=== PATIENT | male | born 1935 | race Caucasian/White ===

== ENCOUNTER → 2018-01-13 12:44 | Outpatient (CLI) | payer MEDICARE, SELFPAY ==
--- NOTE | 2018-01-13 12:48 | CDUL_ITS ---
Reason For Study: Pulsatile tinnitus Lt. Velocities/BP Prox CCA 63.3/13.5 cm/sec. Mid CCA 79.7/14.7 cm/sec. Dist CCA 86.8/16.4 cm/sec. Prox ICA 52.9/14.5 cm/sec. Mid ICA 68.2/17.8 cm/sec. Dist ICA 54.3/12.8 cm/sec. Lt. ICA/CCA = .86. Prox ECA 63.0/0.0 cm/sec. Lt. Vert. 32.4/8.1 cm/sec. Left Extracranial There is homogeneous, smooth atherosclerotic plaque noted in the left common carotid artery. There is heterogeneous, irregular atherosclerotic plaque noted in the left internal carotid artery. There is heterogeneous, irregular atherosclerotic plaque noted in the left external carotid artery. Antegrade flow is noted in the left vertebral artery. Procedure Carotid Duplex 58777. LT side only per dr order. Exam performed in department. 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 Flow within the left verterbral artery is antegrade. Ordering Physician: Shailesh Mancini Referring Physician: Shailesh Mancini Performed By: Dipti Lynn RVT
== END ==
PROVIDERS: Family Provider Family Medicine; PCP Family Medicine; Visit Provider Family Medicine
DX: R42 Dizziness and giddiness (principal); H93.A2 Pulsatile tinnitus, left ear
CPT/HCPCS: 93882

== ENCOUNTER → 2018-04-14 10:05 | Outpatient (CLI) | payer MEDICARE, SELFPAY ==
[2018-04-14 11:00] LABS: Hematocrit 35.3 % (40-54); Hemoglobin 11.9 g/dl (13.0-16.5); Mean Corp Hgb Conc 33.7 g/gl (32-36); Mean Corpuscular Hgb 31.6 pg (27.0-32.0); Mean Corpuscular Volume 93.6 fL (80-94); Mean Platelet Vol. 11.6 fl (6.2-12.0); Platelet Count 162 K/mm3 (150-450); RBC Distribution Width CV 14.2 % (11.6-14.6); RBC Distribution Width SD 46.2 fl (35.1-43.9); Red Blood Count 3.77 M/mm3 (4.6-6.2); White Blood Count 3.8 K/mm3 (4.4-11.0)
[2018-04-14 11:04] LABS: Scan Indicated on CBC? Y/N NO
[2018-04-14 11:30] LABS: Anion Gap 6 (5-15); BUN 13 mg/dL (7-18); BUN/Creat Ratio 11.4 RATIO (10-20); Calcium,Total 8.2 mg/dL (8.5-10.1); Chloride 105 mmol/L (98-107); Creatinine, Serum 1.14 mg/dL (0.70-1.30); EST Glomerular Filtration Rate 65 mL/min (>60); Est Glom Filt Rate - Afr Amer 79 mL/min (>60); Glucose 105 mg/dL (74-106); Sodium Level 141 mmol/L (136-145); Thyroid Stim Hormone (TSH) 1.09 uIU/mL (0.358-3.74)
== END ==
PROVIDERS: Family Provider Family Medicine; PCP Family Medicine; Visit Provider Physician Assistant Medical
DX: R53.83 Other fatigue (principal); D50.9 Iron deficiency anemia, unspecified; R06.00 Dyspnea, unspecified
CPT/HCPCS: 36415; 80048; 84443; 85027

== ENCOUNTER → 2018-10-28 06:57 | Outpatient (CLI) | payer MEDICARE, SELFPAY ==
[2018-10-03 14:25] VITALS: BMI 23.7
--- NOTE | 2018-10-28 06:58 | ECHOD_ITS ---
Reason For Study: CAD Procedure This was a 2D Doppler, Color Flow transthoracic echocardiogram. The exam was of adequate technical quality. Exam performed in department. Left Ventricle Normal LV size. Moderate segmental systolic dysfunction (see wall motion). The estimated ejection fraction is 30 %. The global longitudinal strain = -14% (abnormal). Diastolic function is indeterminate. Basal inferoseptal: Hypokinetic. Basal anteroseptal: Hypokinetic. Mid-Anterior : Akinetic. Mid-Lateral : Hypokinetic. Mid-Inferior: Hypokinetic. Mid-inferoseptal : Akinetic. Mid- anteroseptal : Akinetic. Anterior [place] : Akinetic. Inferior [place] : Akinetic. Lateral [place] : Dyskinetic. Septal [place] : Akinetic. Right Ventricle Normal RV size. ICD or pacer leads identified within the right ventricle. Normal systolic function. Atria The left atrium is mildly enlarged. Normal right atrium. ICD or pacer leads identified within the right atrium. No doppler evidence for ASD. Mitral Valve There is no mitral annular calcification. Mild focal mitral valve calcification of the anterior leaflet. Trivial mitral valve insufficiency. Tricuspid Valve Normal tricuspid valve. Mild tricuspid valve insufficiency. Right ventricular systolic pressure estimated to be 32 mmHg. Aortic Valve Trisinus/trileaflet aortic valve. Mild diffuse aortic valve calcification. Mild (1+) aortic valve insufficiency. Pulmonic Valve The pulmonic valve is not well visualized. Trivial pulmonic valve insufficiency. Great Vessels Normal sized aortic root. Pericardium/Pleural No pericardial effusion. MMode/2D Measurements & Calculations LVIDd: 4.9 cm IVSd: 0.79 cm LVOT diam: 2.0 cm LVIDs: 3.8 cm LVPWd: 0.94 cm LVOT area: 3.2 cm2 RVDd: 3.2 cm FS: 22.2 % Ao root diam: 3.6 cm LAV(MOD-bp): 51.3 ml EDV(MOD-sp4): 104.3 ml LAV(MOD-bp) Indexed: 31.8 ml/m2 ESV(MOD-sp4): 79.4 ml LAV(MOD-sp2): 54.1 ml EF(MOD-sp4): 23.9 % LAV(MOD-sp4): 43.4 ml EDV(MOD-sp2): 99.9 ml SV(MOD-sp4): 25.0 ml SV(MOD-sp2): 38.5 ml EF(MOD-sp2): 38.5 % LA A4 area: 15.5 cm2 LA dimension(2D): 3.5 cm RA A4 area: 13.0 cm2 Doppler Measurements & Calculations MV E max jakob: 61.0 cm/sec Lat Peak E' Jakob: 2.5 cm/sec Med Peak E' Jakob: 3.4 cm/sec MV A max jakob: 96.1 cm/sec E/E' lat: 24.8 E/E' med: 17.8 MV E/A: 0.64 Ao V2 max: 157.9 cm/sec AI max jakob: 370.4 cm/sec LV V1 max: 100.5 cm/sec Ao max P.0 mmHg AI max P.9 mmHg LV V1 max P.0 mmHg Ao V2 mean: 113.3 cm/sec LV V1 mean P.2 mmHg Ao mean P.6 mmHg AI dec slope: 223.7 cm/sec2 LV V1 mean: 70.8 cm/sec Ao V2 VTI: 37.4 cm AI P1/2t: 484.9 msec LV V1 VTI: 25.3 cm MARIANA(I,D): 2.2 cm2 MARIANA(V,D): 2.0 cm2 SV(LVOT): 80.4 ml PA V2 max: 85.0 cm/sec TR max jakob: 266.6 cm/sec TR max P.5 mmHg Interpretation Summary Moderate segmental systolic dysfunction (see wall motion). The estimated ejection fraction is 30 %. The global longitudinal strain = -14% (abnormal). The left atrium is mildly enlarged. Mild focal mitral valve calcification of the anterior leaflet. Trivial mitral valve insufficiency. Mild tricuspid valve insufficiency. Mild diffuse aortic valve calcification. Trivial pulmonic valve insufficiency. Right ventricular systolic pressure estimated to be 32 mmHg. Diastolic function is indeterminate. ICD or pacer leads identified within the right atrium ICD or pacer leads identified within the right ventricle. Ordering Physician: Robbi Abbott Referring Physician: Shailesh Mancini Performed By: Sheila Villatoro RDCS
--- NOTE | 2018-10-28 09:19 | STRESSREP ---
Stress Test Report Date: 10/28/2018 Procedure: Pharmacologic stress nuclear imaging study Indications: Chest pain; shortness of breath/dyspnea; CAD; status post AK; status post PCI Consent: Per the patient Procedure: The patient underwent pharmacologic (Regadenoson) evaluation with a peak heart rate of 82 beats per minute (59 predicted maximal heart rate) and a peak blood pressure of 122/82 mmHg. The baseline ECG demonstrated sinus rhythm; poor R wave progression; septal AK of indeterminate age; nonspecific T wave abnormality. The peak pharmacologic ECG demonstrated no obvious ECG changes. There were no cardiac dysrhythmias pretest, during pharmacologic infusion, or recovery. There was no complaint of chest discomfort during pharmacologic infusion or recovery. The examination was discontinued secondary to completion of protocol. Impression: 1. Pharmacologic (Regadenoson) evaluation 2. Peak pharmacologic ECG with no obvious ECG changes. 3. There were no cardiac dysrhythmias pretest, during pharmacologic infusion, or recovery. 4. Nuclear images pending Myocardial perfusion imaging study: Technique: The patient was injected with 11.1 millicuries of technetium 99m Cardiolite and subsequently rest SPECT Cardiolite nuclear imaging was obtained in the horizontal long, vertical long, and short axis views. The patient underwent pharmacologic (Regadenoson) evaluation with a peak heart rate of 82 beats per minute (59 % percent predicted maximal heart rate) and a peak blood pressure of 122/82 mmHg. The patient was injected with 30.6 millicuries of technetium 99m Cardiolite and subsequently stress SPECT Cardiolite nuclear imaging was obtained in the horizontal long, vertical long, and short axis views. A gated Cardiolite study at peak stress was obtained. Interpretation: Rest and stress SPECT Cardiolite nuclear imaging status post realignment, normalization, and attenuation correction demonstrate this to absence of myocardial perfusion/tracer uptake in portions of the mid to distal anterior, anteroseptal, anterior apical, and septal apical segments without significant change between rest and stress. There is diminished end-systolic thickening and brightening. The gated Cardiolite study demonstrates diminished myocardial thickening and end were wall motion in the aforementioned areas. The reported LVEF is 39 %. Impression: 1. Rest and stress SPECT Cardiolite nuclear imaging demonstrate myocardial perfusion changes appearing compatible with an area of previous myocardial injury/infarction in portions of the anterior, anteroseptal, and apical areas with no myocardial perfusion changes considered diagnostic for associated stress-induced myocardial ischemia. 2. The gated Cardiolite study reports an LVEF of 39 %. This note was generated with [employer] software. It may contain incorrect words, spelling, and punctuation that were not noted in checking the note before signing.
--- NOTE | 2018-10-28 09:24 | STRESSREP_ITS ---
Stress Test Report Date: 10/28/2018 Procedure: Pharmacologic stress nuclear imaging study Indications: Chest pain; shortness of breath/dyspnea; CAD; status post MA; status post PCI Consent: Per the patient Procedure: The patient underwent pharmacologic (Regadenoson) evaluation with a peak heart rate of 82 beats per minute (59 predicted maximal heart rate) and a peak blood pressure of 122/82 mmHg. The baseline ECG demonstrated sinus rhythm; poor R wave progression; septal MA of indeterminate age; nonspecific T wave abnormality. The peak pharmacologic ECG demonstrated no obvious ECG changes. There were no cardiac dysrhythmias pretest, during pharmacologic infusion, or recovery. There was no complaint of chest discomfort during pharmacologic infusion or recovery. The examination was discontinued secondary to completion of protocol. Impression: 1. Pharmacologic (Regadenoson) evaluation 2. Peak pharmacologic ECG with no obvious ECG changes. 3. There were no cardiac dysrhythmias pretest, during pharmacologic infusion, or recovery. 4. Nuclear images pending Myocardial perfusion imaging study: Technique: The patient was injected with 11.1 millicuries of technetium 99m Cardiolite and subsequently rest SPECT Cardiolite nuclear imaging was obtained in the horizontal long, vertical long, and short axis views. The patient underwent pharmacologic (Regadenoson) evaluation with a peak heart rate of 82 beats per minute (59 % percent predicted maximal heart rate) and a peak blood pressure of 122/82 mmHg. The patient was injected with 30.6 millicuries of technetium 99m Cardiolite and subsequently stress SPECT Cardiolite nuclear imaging was obtained in the horizontal long, vertical long, and short axis views. A gated Cardiolite study at peak stress was obtained. Interpretation: Rest and stress SPECT Cardiolite nuclear imaging status post realignment, normalization, and attenuation correction demonstrate this to absence of myocardial perfusion/tracer uptake in portions of the mid to distal anterior, anteroseptal, anterior apical, and septal apical segments without significant change between rest and stress. There is diminished end-systolic thickening and brightening. The gated Cardiolite study demonstrates diminished myocardial thickening and end were wall motion in the aforementioned areas. The reported LVEF is 39 %. Impression: 1. Rest and stress SPECT Cardiolite nuclear imaging demonstrate myocardial perfusion changes appearing compatible with an area of previous myocardial injury/infarction in portions of the anterior, anteroseptal, and apical areas with no myocardial perfusion changes considered diagnostic for associated stress-induced myocardial ischemia. 2. The gated Cardiolite study reports an LVEF of 39 %. This note was generated with [employer] software. It may contain incorrect words, spelling, and punctuation that were not noted in checking the note before signing.
== END ==
PROVIDERS: Family Provider Family Medicine; PCP Family Medicine; Referring Provider Internal Medicine Cardiovascular Disease; Visit Provider Internal Medicine Cardiovascular Disease
DX: I25.10 Atherosclerotic heart disease of native coronary artery without angina pectoris (principal); Z98.61 Coronary angioplasty status; I25.5 Ischemic cardiomyopathy; I50.22 Chronic systolic (congestive) heart failure; Z95.810 Presence of automatic (implantable) cardiac defibrillator
CPT/HCPCS: 78452; 93017; 93306; A9500; A4216; J2785

== ENCOUNTER → 2018-11-21 11:12 | Outpatient (CLI) | payer MEDICARE, SELFPAY ==
[2018-10-03 14:25] VITALS: BMI 23.7
[2018-11-21 13:05] LABS: Anion Gap 6 (5-15); BUN 19 mg/dL (7-18); BUN/Creat Ratio 16.7 RATIO (10-20); Calcium,Total 8.4 mg/dL (8.5-10.1); Chloride 106 mmol/L (98-107); Creatinine, Serum 1.14 mg/dL (0.70-1.30); EST Glomerular Filtration Rate 65 mL/min (>60); Est Glom Filt Rate - Afr Amer 79 mL/min (>60); Glucose 99 mg/dL (74-106); Potassium 4.1 mmol/L (3.5-5.1); Sodium Level 139 mmol/L (136-145)
--- OUTSIDE RECORDS SUMMARY | 2019-01-23 21:37 | XMS RPT_ITS ---
:1935 Author Organization OHIP Support Name Relationship Address Phone RAMIREZHOME VARMATE Unavailable [address] + [place] [address] R Unavailable Unavailable Unavailable RAMIREZ, ALEKSANDAR Unavailable [address] + [place] [address] R Unavailable Unavailable Unavailable RAMIREZ, ALEKSANDAR Unavailable [address] + [place] [address] R Unavailable Unavailable Unavailable RAMIREZ, ALEKSANDAR Unavailable [address] + [place] [address] R Unavailable Unavailable Unavailable RAMIREZ, ALEKSANDAR Unavailable [address] + [place] [address] R Unavailable Unavailable Unavailable RAMIREZ, ALEKSANDAR Unavailable [address] + [place] [address] R Unavailable Unavailable Unavailable RAMIREZ, ALEKSANDAR Unavailable [address] + [place] [address] R Unavailable Unavailable Unavailable RAMIREZ, ALEKSANDAR Unavailable [address] + [place] [address] R Unavailable Unavailable Unavailable RAMIREZ, ALEKSANDAR Unavailable [address] + [place] [address] R Unavailable Unavailable Unavailable RAMIREZ, ALEKSANDAR Unavailable [address] + [place] [address] R Unavailable Unavailable Unavailable RAMIREZ, ALEKSANDAR Unavailable [address] + [place] [address] R Unavailable Unavailable Unavailable RAMIREZ, ALEKSANDAR Unavailable [address] + [place] [address] R Unavailable Unavailable Unavailable RAMIREZ, ALEKSANDAR Unavailable [address] + [place] [address] R Unavailable Unavailable Unavailable RAMIREZ, ALEKSANDAR Unavailable [address] + [place] [address] R Unavailable Unavailable Unavailable RAMIREZ, ALEKSANDAR Unavailable [address] + [place] [address] R Unavailable Unavailable Unavailable Care Team Providers Name Role Phone Robbi Abbott Attending Unavailable Robbi Abbott Referring Unavailable Live, Shailesh Primary Care Unavailable Sloane Grubbs Attending Unavailable Live, Shailesh Referring Unavailable Justen Suarez Attending Unavailable Jack Abraham Attending Unavailable Live, Shailesh Referring Unavailable MoodRobbi mccallum Attending Unavailable Robbi Abbott Referring Unavailable Live, Shailesh Primary Care Unavailable Robbi Abbott Consulting Unavailable Abril Dupree Attending Unavailable Abril Dupree Referring Unavailable Live, Shailesh Primary Care Unavailable Sloane Grubbs Attending Unavailable Live, Shailesh Referring Unavailable Live, Shailesh Primary Care Unavailable Live, Shailesh Attending Unavailable Live, Shailesh Referring Unavailable Live, Shailesh Primary Care Unavailable Abril Dupree Attending Unavailable Abril Dupree Referring Unavailable Live, Shailesh Primary Care Unavailable Abril Dupree Attending Unavailable Live, Shailesh Referring Unavailable Live, Shailesh Primary Care Unavailable Sloane Grubbs Attending Unavailable Live, Shailesh Referring Unavailable Live, Shailesh Primary Care Unavailable Abril Dupree Attending Unavailable Live, Shailesh Referring Unavailable Live, Shailesh Primary Care Unavailable Jhonny Sequeira Attending Unavailable Live, Shailesh Referring Unavailable Abril Daly Attending Unavailable MoodisRobbi horne Attending Unavailable Live, Shailesh Referring Unavailable PROBLEMS PROBLEMS DATE TYPE CONDITION / CODE ATTENDING STATUS SOURCE 10/28/2018 Unknown I25.5 - Ischemic Robbi Abbott Active [place] cardiomyopathy / Community I25.5(ICD-10) Hospital Repository 10/28/2018 Unknown I50.22 - Chronic Robbi Abbott systolic (congestive) Community heart failure / Hospital I50.22(ICD-10) Repository 10/28/2018 Unknown Z95.810 - Presence of Robbi Abbott Active [place] automatic Community (implantable) cardiac Hospital defibrillator / Repository Z95.810(ICD-10) 10/28/2018 Unknown I25.10 - Robbi Abbott Active [place] Atherosclerotic heart [facility] disease [facility] [place] [facility] coronary artery Repository without angina pectoris / I25.10(ICD-10) 10/28/2018 Unknown Z98.61 - Coronary Robbi Abbott Active [facility] angioplasty status / Community Z98.61(ICD-10) Hospital Repository 08/17/2018 Unknown Z23 - Encounter for Jhonny Sequeira Active [place] immunization / Community Z23(ICD-10) Hospital Repository PROCEDURES PROCEDURES No Procedure Records FoundRESULTS RESULTS BASIC METABOLIC Collected: 11/21/2018 Status: F Source: [place] PROFILE (BMP) 11:17 AM [facility] REPOSITORY TYPE CODE TESTS RESULT OUT OF RANGE REFERENCE UNITS LAB L501.0100 74-106 mg/dL Normal GLU 99 Result Comment: Please note revised GLUCOSE reference range effective 2017. LAB L501.1000 7-18 mg/dL High BUN 19 LAB L501.1100 0.70-1.30 mg/dL Normal CREAT,SERUM 1.14 Result Comment: The validity of the calculated GFR AND GFRAA in patients over 70 years has not been determined. Clinical correlation is essential. LAB L501.1110 >60 mL/min Normal EST GFR 65 Result Comment: Non- GFR Calc LAB L501.1115 >60 mL/min Normal EST GFR - AA 79 Result Comment: GFR Calc LAB L501.1300 10-20 RATIO Normal BUN/CRE 16.7 LAB L501.2200 8.5-10.1 mg/dL Low CA 8.4 LAB L501.5300 136-145 mmol/L NA Normal 139 LAB L501.5600 3.5-5.1 mmol/L K Normal 4.1 LAB L501.5900 98-107 mmol/L CL Normal 106 LAB L501.6100 21.0-32.0 mmol/L Normal CO2 27.0 LAB L501.6200 5-15 Normal GAP 6 Performed By: #### L500.2500 #### [facility] [address] [place], [address] ECHOCARDIOGRAM COMPLETE Observed: 10/28/2018 Status: F Source: [place] 7:43 PM [facility] Cardiovascular Services [address] [place] [address] Echo Complete 10/28/18 0921 MR#: [id number] Acct: [id number] Name: JORGE GUZMÁN Rep #: [id number] : 1935 83 From: Robbi Abbott MD Attending Dr: Robbi Abbott MD Status: REG CLI Ordering Dr: Robbi Abbott MD Date: 10/28/18 Location: [facility] Sex: M C Admitted: Reason For Study: CAD Procedure This was a 2D Doppler, Color Flow transthoracic echocardiogram. The exam was of adequate technical quality. Exam performed in department. Left Ventricle Normal LV size. Moderate segmental systolic dysfunction (see wall motion). The estimated ejection fraction is 30 %. The global longitudinal strain = -14% (abnormal). Diastolic function is indeterminate. Basal inferoseptal: Hypokinetic. Basal anteroseptal: Hypokinetic. Mid-Anterior : Akinetic. Mid-Lateral : Hypokinetic. Mid-Inferior: Hypokinetic. Mid-inferoseptal : Akinetic. Mid- anteroseptal : Akinetic. Anterior [place] : Akinetic. Inferior [place] : Akinetic. Lateral [place] : Dyskinetic. Septal [place] : Akinetic. Right Ventricle Normal RV size. ICD or pacer leads identified within the right ventricle. Normal systolic function. Atria The left atrium is mildly enlarged. Normal right atrium. ICD or pacer leads identified within the right atrium. No doppler evidence for ASD. Mitral Valve There is no mitral annular calcification. Mild focal mitral valve calcification of the anterior leaflet. Trivial mitral valve insufficiency. Tricuspid Valve Normal tricuspid valve. Mild tricuspid valve insufficiency. Right ventricular systolic pressure estimated to be 32 mmHg. Aortic Valve Trisinus/trileaflet aortic valve. Mild diffuse aortic valve calcification. Mild (1+) aortic valve insufficiency. Pulmonic Valve The pulmonic valve is not well visualized. Trivial pulmonic valve insufficiency. Great Vessels Normal sized aortic root. Pericardium/Pleural No pericardial effusion. MMode/2D Measurements AND Calculations LVIDd: 4.9 cm IVSd: 0.79 cm LVOT diam: 2.0 cm LVIDs: 3.8 cm LVPWd: 0.94 cm LVOT area: 3.2 cm2 RVDd: 3.2 cm FS: 22.2 % Ao root diam: 3.6 cm LAV(MOD-bp): 51.3 ml EDV(MOD-sp4): 104.3 ml LAV(MOD-bp) Indexed: 31.8 ml/m2 ESV(MOD-sp4): 79.4 ml LAV(MOD-sp2): 54.1 ml EF(MOD-sp4): 23.9 % LAV(MOD-sp4): 43.4 ml EDV(MOD-sp2): 99.9 ml SV(MOD-sp4): 25.0 ml SV(MOD-sp2): 38.5 ml EF(MOD-sp2): 38.5 % LA A4 area: 15.5 cm2 LA dimension(2D): 3.5 cm RA A4 area: 13.0 cm2 Doppler Measurements AND Calculations MV E max jakob: 61.0 cm/sec Lat Peak E' Jakob: 2.5 cm/sec Med Peak E' Jakob: 3.4 cm/sec MV A max jakob: 96.1 cm/sec E/E' lat: 24.8 E/E' med: 17.8 MV E/A: 0.64 Ao V2 max: 157.9 cm/sec AI max jakob: 370.4 cm/sec LV V1 max: 100.5 cm/sec Ao max P.0 mmHg AI max P.9 mmHg LV V1 max P.0 mmHg Ao V2 mean: 113.3 cm/sec LV V1 mean P.2 mmHg Ao mean P.6 mmHg AI dec slope: 223.7 cm/sec2 LV V1 mean: 70.8 cm/sec Ao V2 VTI: 37.4 cm AI P1/2t: 484.9 msec LV V1 VTI: 25.3 cm MARIANA(I,D): 2.2 cm2 MARIANA(V,D): 2.0 cm2 SV(LVOT): 80.4 ml PA V2 max: 85.0 cm/sec TR max jakob: 266.6 cm/sec TR max P.5 mmHg Interpretation Summary Moderate segmental systolic dysfunction (see wall motion). The estimated ejection fraction is 30 %. The global longitudinal strain = -14% (abnormal). The left atrium is mildly enlarged. Mild focal mitral valve calcification of the anterior leaflet. Trivial mitral valve insufficiency. Mild tricuspid valve insufficiency. Mild diffuse aortic valve calcification. Trivial pulmonic valve insufficiency. Right ventricular systolic pressure estimated to be 32 mmHg. Diastolic function is indeterminate. ICD or pacer leads identified within the right atrium ICD or pacer leads identified within the right ventricle. Ordering Physician: Robbi Abbott Referring Physician: Shailesh Mancini Performed By: Sheila Villatoro, SUNITA 10/28/181941 Date Robbi Abbott MD CC: Shailesh Mancini; Robbi Abbott MD; Shailesh Mancini MD Date Dictated: 10/28/18920 Date Transcribed: 10/28/181941 Maintenance Mechanic Engine: Signed STRESS REPORT Observed: 10/28/2018 Status: F Source: [place] 9:24 AM [facility] REPOSITORY [facility] Cardiovascular Services [address] [place] [id number] MR#: [id number] Acct: [id number] Name: JORGE GUZMÁN Rep #: [id number] : 1935 83 From: Robbi Abbott MD Primary Care: Shaielsh Mancini Status: REG CLI Ordering Dr: Juanis: Adeel Momin Stress Test Report Date: 10/28/2018 Procedure: Pharmacologic stress nuclear imaging study Indications: Chest pain; shortness of breath/dyspnea; CAD; status post AK; status post PCI Consent: Per the patient Procedure: The patient underwent pharmacologic (Regadenoson) evaluation with a peak heart rate of 82 beats per minute (59 predicted maximal heart rate) and a peak blood pressure of 122/82 mmHg. The baseline ECG demonstrated sinus rhythm; poor R wave progression; septal AK of indeterminate age; nonspecific T wave abnormality. The peak pharmacologic ECG demonstrated no obvious ECG changes. There were no cardiac dysrhythmias pretest, during pharmacologic infusion, or recovery. There was no complaint of chest discomfort during pharmacologic infusion or recovery. The examination was discontinued secondary to completion of protocol. Impression: 1. Pharmacologic (Regadenoson) evaluation 2. Peak pharmacologic ECG with no obvious ECG changes. 3. There were no cardiac dysrhythmias pretest, during pharmacologic infusion, or recovery. 4. Nuclear images pending Myocardial perfusion imaging study: Technique: The patient was injected with 11.1 millicuries of technetium 99m Cardiolite and subsequently rest SPECT Cardiolite nuclear imaging was obtained in the horizontal long, vertical long, and short axis views. The patient underwent pharmacologic (Regadenoson) evaluation with a peak heart rate of 82 beats per minute (59 % percent predicted maximal heart rate) and a peak blood pressure of 122/82 mmHg. The patient was injected with 30.6 millicuries of technetium 99m Cardiolite and subsequently stress SPECT Cardiolite nuclear imaging was obtained in the horizontal long, vertical long, and short axis views. A gated Cardiolite study at peak stress was obtained. Interpretation: Rest and stress SPECT Cardiolite nuclear imaging status post realignment, normalization, and attenuation correction demonstrate this to absence of myocardial perfusion/tracer uptake in portions of the mid to distal anterior, anteroseptal, anterior apical, and septal apical segments without significant change between rest and stress. There is diminished end-systolic thickening and brightening. The gated Cardiolite study demonstrates diminished myocardial thickening and end were wall motion in the aforementioned areas. The reported LVEF is 39 %. Impression: 1. Rest and stress SPECT Cardiolite nuclear imaging demonstrate myocardial perfusion changes appearing compatible with an area of previous myocardial injury/infarction in portions of the anterior, anteroseptal, and apical areas with no myocardial perfusion changes considered diagnostic for associated stress-induced myocardial ischemia. 2. The gated Cardiolite study reports an LVEF of 39 %. This note was generated with Angiodroid software. It may contain incorrect words, spelling, and punctuation that were not noted in checking the note before signing. 10/28/18923 <Electronically signed by Robbi Abbott MD> Date Robbi Abbott MD CC: Shailesh Mancini; Robbi Abbott MD; Shailesh Mancini MD Date Dictated: 10/28/18918 Date Transcribed: 10/28/18918 Maintenance Mechanic Engine: PM Signed PACEMAKER CHECK Observed: 10/20/2018 Status: F Source: [place] 3:54 PM [facility] HOSPITAL REPOSITORY [facility] [address] [place] [address] Pacemaker Check Date of Service: 10/20/18 1502 MR#: [id number] Acct: [id number] Name: JORGE GUZMÁN Rep #: [id number] : 1935 From: Sloane Grubbs Age/Sex: 83/M [place] [facility] Status: Signed Billing Codes ICD Device Billing: ICD Dev Prog Eval, Dual 10/20/18 1506 <Electronically signed by Sloane Grubbs > Date Sloane Grubbs 10/20/18 1554<Electronically signed by Timoteo Mullins MD> Cosigner Signature: Date (if applicable) iTmoteo Mullins MD CC: CARDIOLOGY VISIT Observed: 10/03/2018 Status: F Source: [place] REPORT 3:08 PM [facility] REPOSITORY [facility] [place] [id number] [place] [address] OFFICE VISIT Date of Service: 10/03/18 MR#: [id number] Acct: [id number] Name: JORGE GUZMÁN Rep #: [id number] : 1935 Provider: Robbi Abbott MD Age/Sex: 83/M [place] [facility] [place]: Signed HPI HPI Details: JORGE GUZÁMN, is a 83 M who presents to the office today for outpatient cardiovascular evaluation. He states he has not been having ongoing chest discomfort. He has not had to use nitroglycerin sublingual. His main concern is worsening shortness of breath/dyspnea especially with exertion. He denies any ongoing continued orthopnea or PND or peripheral pitting edema. He states he does have occasional fluid retention for which he does take an occasional furosemide tablet. There is been no near syncope or syncope. His device has not discharged. Intake Vital Signs10/03/18 Height 5 ft 3 in 10/03/18 Weight: 134 lb 10/03/18 Body Mass Index (BMI) 23.7 10/03/18 Blood Pressure 120/60 Intake Visit Reasons: 10 M FU Allergies morphine Allergy (Intermediate, Verified 10/03/18 14:25) Other zolpidem tartrate [From Ambien] Adverse Reaction (Intermediate, Verified 10/03/18 14:25) Other Medications Aspirin [Aspirin, Baby] 81 mg PO DAILY 03/05/16 [History Confirmed 10/03/18] Nitroglycerin [Nitrostat] 0.4 mg SUBLINGUAL Q5M PRN 04/15/16 [History Confirmed 10/03/18] diphenhydramine 25 mg-acetaminophen 500 mg tablet 1 tab PO QHS PRN tab 10/22/17 [History Confirmed 10/03/18] carvedilol 12.5 mg tablet 12.5 mg PO BID #180 tab 10/03/18 [Rx Confirmed 10/03/18] clopidogrel 75 mg tablet 75 mg PO DAILY #90 tab 10/03/18 [Rx Confirmed 10/03/18] isosorbide mononitrate ER 30 mg tablet,extended release 24 hr 30 mg PO QAM #90 tab 10/03/18 [Rx Confirmed 10/03/18] losartan 25 mg tablet 25 mg PO QDAY #90 tab 10/03/18 [Rx Confirmed 10/03/18] simvastatin 20 mg tablet 20 mg PO QHS #90 tab 10/03/18 [Rx Confirmed 10/03/18] [facility] Medical History Essential hypertension (Chronic) History of placement of internal cardiac defibrillator (Chronic) 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 (Chronic) Cardiomyopathy, ischemic (Chronic) Chronic systolic congestive heart failure (Chronic) HLD (hyperlipidemia) (Chronic) Abnormal result of cardiovascular function study, unspecified (Chronic) High risk medication use (Chronic) Iron deficiency anemia (Chronic) Chest pain, precordial (Chronic) Atherosclerotic heart disease of [place] coronary artery without angina pectoris (Chronic) Dyspnea (Chronic) Fatigue (Chronic) Hypokalemia (Chronic) GERD (gastroesophageal reflux disease) (Chronic) FH: sudden cardiac (SCD) (Inactive) Family history of CVA (Inactive) Family history of hypertension (Inactive) HTN (hypertension) (Inactive) Surgical History History of hernia repair (Resolved) S/P TURP (status post transurethral resection of prostate) (Resolved) History of PTCA (Chronic 08/02/08) History of left heart catheterization (Chronic) History of prostate surgery (Resolved) Family History Mother CAD (coronary artery disease) CVA (cerebral vascular accident) Myocardial infarction, Onset Age: 67 Hypertension Brother CAD (coronary artery disease) Hypertension Cancer Lung CA Myocardial infarction, Onset Age: 73 Father Myocardial infarction, Onset Age: 77 Daughter Cancer Son Myocardial infarction, Onset Age: 46 Social History Smoking Status: Never smoker alcohol intake: never substance use type: does not use caffeine: Yes Type: coffee Number of servings: 1, carbonated beverages what type of physical activity do you participate in: none seatbelt use: always do you feel safe at home: Yes ROS Const Const: Positive for fatigue (increased); negative for weakness, weight gain, weight loss, frequent falls or excessive sweating Eyes Eyes: Negative for change in vision, blurry vision or transient loss of vision ENT ENT: Positive for balance problems (unsteadiness with ambulation); negative for dizziness Cardio Chest Pain: No Palpitations: No Edema: None Muscle aches with walking: None Resp Respiratory: Positive for SOB with activity (increased), SOB at rest (increased) and wheezing (occasional) GI GI: Negative vomiting or vomiting blood/hematemesis : Negative for hematuria Musc Musc: Positive for balance problems (unsteadiness with ambulation); negative for muscle aches/ myalgia, muscle weakness or joint pain Skin Skin: Negative non-healing lesions or rash Neuro Neuro: Negative for weakness, blurry vision, dizziness, lightheadedness, frequent falls or orthostatic symptoms Travis Hematologic/Lymphatic: Negative for easy bleeding Endo Endo: Positive for fatigue (increased); negative for excessive sweating Psych Psych: Negative for anxiety or depression Allergy Allergy/Immunology: Negative for hives, Negative for rash Cardiology Exam Const Appearance: cooperative, no acute distress, well developed, healthy appearing, comfortable and well groomed Nutritional Appearance: average body habitus Orientation: alert, awake and oriented x3 Head Head: normocephalic, atraumatic and normal to inspection Ears: hearing grossly normal bilaterally Nose: external nose normal Face and Sinus: face symmetric Mouth: moist mucous membranes Eyes Eyelids: eyelids normal Conjunctivae: conjunctivae normal Pupils: PERRL EOM: EOM intact bilaterally Neck Neck: normal visual inspection, no JVD and full ROM Carotids: normal carotid upstroke; negative bruit Neck Mass: Negative Neck mass Chest Chest inspection: normal inspection of the chest, symmetric chest movement and Pacemaker/ICD Auscultation: Bilateral: Diminished Lung Sounds Cardio Palpation: normal PMI Rate: regular rate Rhythm: regular rhythm (ocassional irregular beat) Heart sounds: S1 normal, S2 normal and positive S4; negative murmur GI GI: normal to inspection, tender, bowel sounds present and soft Neuro General: alert, awake, oriented x3, moves all extremities, gait normal and other Skin Skin: no rashes or lesions noted Extremities Pulses: Normal: Right Posterior Tibial Pulse, Left Posterior Tibial Pulse, Right Radial Pulse, Left Radial Pulse Lower Extremity Edema: None: Bilateral Psych Psychological: normal affect Supplemental Info Echocardiogram in 2017 demonstrated an ejection fraction of 40%. Left atrium mildly enlarged. Mild mitral insufficiency. Mild to moderate tricuspid insufficiency. Mild aortic stenosis. Mild aortic and pulmonic insufficiency. Pharmacologic nuclear stress test: 06/08/2017: Demonstrated extensive myocardial infarction with no ischemia. Cardiac catheterization: 03/26/2010: [facility] There were no complications during Impression: Severe two vessel coronary artery disease. Patent pre-existing stent of the proximal LAD with inslent. minimal luminal irregularities. 85% stenosis of the mid LAD s/p diagonal branch number 3 with mild change / improvement in angiogrpahic appearance s/p IC NTG (200 mcg). 50 to 75% stenosis of the mid LCx s/p OM 1 and pre OM 2. The overall left ventricular systolic function was moderately reduced. The left ventricular ejection fraction was 35%. There is severe hypokinesis of the anterior wall of the left ventricle. Apical left ventricular akinesis. Mild to moderately elevated left ventricular end diastolic pressure ICD: Thrasher Feeder: [employer] Name: Zackary Orosco DR Model #: [id number] Serial #: [id number] Date Implanted: 04/16/2016 Device Characteristics Device: Dual Chamber Type: Implantable defibrillator Patient Characteristics Ventricular Indication: Prophylactic Patient Substrate: Ischemic cardiomyopathy Underlying patient rhythm:Sinus rhythm Pacemaker Dependent: No Assessment AND Plan 1. Atherosclerosis of [place] coronary artery of [place] heart without angina pectoris I25.10 PTCA/BMS to prox LAD 08/02/2008; Plan At the present time he does have worsening shortness of breath/dyspnea with exertion. This may be an angina pectoris equivalent. His case was reviewed. He will continue medical management. He will undergo reevaluation of his left ventricular wall motion and systolic function with a transthoracic echocardiogram as well as his coronary physiology with a pharmacologic stress nuclear imaging study. Depending upon the findings he may need repeat evaluation in the cardiac catheterization laboratory Orders Orders: 2. S/P PTCA (percutaneous transluminal coronary angioplasty) Z98.61 Plan He does have a history of previous PCI to the LAD system. Again he will continue medical management at this time. He will proceed with evaluation as noted above. Orders Orders: 3. Cardiomyopathy, ischemic I25.5 Plan He does have an underlying ischemic mediated cardiomyopathy. He will continue his medical management. He will be reassessed noninvasively as noted above. Orders Orders: 4. Chronic systolic CHF (congestive heart failure) I50.22 Plan He does not appear to have any acute on chronic systolic CHF symptoms at this time. He will continue his current medical therapy. He does use furosemide on a as needed basis. He states it is relatively rare that he actually needs to use this medication. Orders Orders: 5. History of placement of internal cardiac defibrillator Z95.810 ICD Implant 04/11/2009, ICD Gen Change 04/16/2016 Plan He does have an ICD in place. It has been functioning appropriately. He will continue to be followed. Orders Orders: 6. Pure hypercholesterolemia E78.00 Plan He believes his lipid labs have been checked by his PCP. A copy would be appreciated for continuity of care purposes 7. Essential hypertension I10 Plan His blood pressure appears to be reasonably well controlled at this time. He will continue his current medical management Plan Detail Other Medications New: Refilled: Additional Comments Thank you for allowing me to participate in the care of your patient. Please don't hesitate to call if any issues arise. This note was generated using a voice recognition system and there may be incorrect words, spelling or punctuation that were not noted when reviewing the office note prior to saving. Follow Up 6 Months Coding Level of Care Code Off vis,est,level 4 Diagnoses Atherosclerosis of [place] coronary artery of [place] heart without angina pectoris I25.10 [place] vs. transplanted heart: [place] heart S/P PTCA (percutaneous transluminal coronary angioplasty) Z98.61 Cardiomyopathy, ischemic I25.5 Chronic systolic CHF (congestive heart failure) I50.22 History of placement of internal cardiac defibrillator Z95.810 Pure hypercholesterolemia E78.00 Hyperlipidemia type: pure hypercholesterolemia Essential hypertension I10 Coding Level of Care Code Off vis,est,level 4 Diagnoses Atherosclerosis of [place] coronary artery of [place] heart without angina pectoris I25.10 [place] vs. transplanted heart: [place] heart S/P PTCA (percutaneous transluminal coronary angioplasty) Z98.61 Cardiomyopathy, ischemic I25.5 Chronic systolic CHF (congestive heart failure) I50.22 History of placement of internal cardiac defibrillator Z95.810 Pure hypercholesterolemia E78.00 Hyperlipidemia type: pure hypercholesterolemia Essential hypertension I10 10/03/18 1508 <Electronically signed by Robbi Abbott MD> Date Robbi Abbott MD Cosigner Signature: Date (if applicable) CC: Shailesh Mancini OFFICE VISIT REPORT Observed: 08/17/2018 Status: F Source: CHANTELL 2:52 PM [id number] [place] [address] OFFICE VISIT Date of Service: 08/17/18 MR#: [id number] Acct: [id number] Patient: JORGE GUZMÁN Rep #: [id number] : 1935 Provider: Jhonny WHITE Age/Sex: 83/M [place] [facility] [place]: Signed Intake Vital Signs08/17/18 Temperature 97.4 F 08/17/18 Temperature Source Temporal Artery Intake Visit Reasons: FLU SHOT Allergies morphine Allergy (Intermediate, Verified 05/24/18 14:04) Other zolpidem tartrate [From Ambien] Adverse Reaction (Intermediate, Verified 05/24/18 14:04) Other Medications Aspirin [Aspirin, Baby] 81 mg PO DAILY 03/05/16 [History Confirmed 05/24/18] Nitroglycerin [Nitrostat] 0.4 mg SUBLINGUAL Q5M PRN 04/15/16 [History Confirmed 05/24/18] diphenhydramine 25 mg-acetaminophen 500 mg tablet 1 tab PO QHS PRN tab 10/22/17 [History Confirmed 05/24/18] clopidogrel 75 mg tablet 75 mg PO DAILY #90 tab 11/19/17 [Rx Confirmed 05/24/18] simvastatin 20 mg tablet 20 mg PO QHS #90 tab 12/03/17 [Rx Confirmed 05/24/18] carvedilol 12.5 mg tablet 12.5 mg PO BID #180 tab 12/15/17 [Rx Confirmed 05/24/18] losartan 25 mg tablet 25 mg PO QDAY #90 tab 12/15/17 [Rx Confirmed 05/24/18] isosorbide mononitrate ER 30 mg tablet,extended release 24 hr 30 mg PO QAM 05/24/18 [History Confirmed 05/24/18] Immunizations Fluad 65yr up(PF)45 mcg(15 mcgx3)/0.5 mL intramuscular syringe Performing Provider: CHRISTOPHER Horton Administered by: Clarice Mcrae on 08/17/18 12:11 Dose Route Admin Location Lot Number Expiration Date [facility] [place] Thrasher Feeder 0.5 mL IM Left Deltoid [id number] 02/28/19 14722-210-94 SEQIRUS VIS Given Date VIS Publication Date 08/17/18 08/17/18 Eligibility Eligibility Date Assessment AND Plan Orders Orders: Medications Discontinued: Fluad 65yr up(PF)45 mcg(15 mcgx3)/0.5 mL intramus0.5 mL IM ONCE 0.5 mL 0RF NS Z23 cular syringe (flu vac 2017 [id number](PF)) Discont inued Reason: Office Medication has been Documented as goldy weber 08/17/18 1456 <Electronically signed by Jhonny WHITE> Date Jhonny Ortiz Signature: Date (if applicable) CC: CARDIOLOGY VISIT Observed: 05/24/2018 Status: F Source: CHANTELL REPORT 2:38 PM [facility] REPOSITORY [facility] [address] [place] [address] OFFICE VISIT Date of Service: 05/24/18 MR#: [id number] Acct: [id number] Name: JORGE GUZMÁN Rep #: [id number] : 1935 Provider: Abril Dupree Age/Sex: 83/M [place] [facility] Status: Signed HPI HPI Details: JORGE GUZMÁN, is a 83 M who presents to the office today for a 6 week follow-up. He was in our office last month for a routine office visit and was noted to have increased fatigue, continued dizziness which is not new and low blood pressure readings. We did decrease his Lasix to 20 mg daily. He has a history of coronary artery disease with anterior myocardial infarction remotely, ischemic cardiomyopathy, ICD implant, hypertension and hyperlipidemia. Patient states that since decreasing his Lasix he feels significantly better however he is still concerned over low blood pressure readings. He does not have any chest pain or heaviness. He has more energy. He does not have any worsening shortness of breath. He does not have any palpitations. He does occasionally have dizziness and lightheadedness. He does not have any lower extremity edema. Intake Vital Signs05/24/18 Height 5 ft 3 in 05/24/18 Weight: 134 lb 05/24/18 Body Mass Index (BMI) 23.7 05/24/18 Blood Pressure 110/50 05/24/18 Blood Pressure Location Lt brachial Intake Visit Reasons: 6 wk FU [employer] Required: No Accompanied by: None Is patient in pain?: No Allergies morphine Allergy (Intermediate, Verified 05/24/18 14:04) Other zolpidem tartrate [From Ambien] Adverse Reaction (Intermediate, Verified 05/24/18 14:04) Other Medications Aspirin [Aspirin, Baby] 81 mg PO DAILY 03/05/16 [History Confirmed 05/24/18] Nitroglycerin [Nitrostat] 0.4 mg SUBLINGUAL Q5M PRN 04/15/16 [History Confirmed 05/24/18] diphenhydramine 25 mg-acetaminophen 500 mg tablet 1 tab PO QHS PRN tab 10/22/17 [History Confirmed 05/24/18] clopidogrel 75 mg tablet 75 mg PO DAILY #90 tab 11/19/17 [Rx Confirmed 05/24/18] simvastatin 20 mg tablet 20 mg PO QHS #90 tab 12/03/17 [Rx Confirmed 05/24/18] carvedilol 12.5 mg tablet 12.5 mg PO BID #180 tab 12/15/17 [Rx Confirmed 05/24/18] losartan 25 mg tablet 25 mg PO QDAY #90 tab 12/15/17 [Rx Confirmed 05/24/18] isosorbide mononitrate ER 30 mg tablet,extended release 24 hr 30 mg PO QAM 05/24/18 [History Confirmed 05/24/18] Ejection fraction %: 40 to 44 PFSH Medical History Family history of CVA (Chronic) Family history of hypertension (Chronic) FH: sudden cardiac (SCD) (Chronic) History of placement of internal cardiac defibrillator (Chronic) HTN (hypertension) (Chronic) 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 (Chronic) Cardiomyopathy, ischemic (Chronic) Chronic systolic congestive heart failure (Chronic) HLD (hyperlipidemia) (Chronic) Abnormal result of cardiovascular function study, unspecified (Chronic) High risk medication use (Chronic) Iron deficiency anemia (Chronic) Chest pain, precordial (Chronic) Atherosclerotic heart disease of [place] coronary artery without angina pectoris (Chronic) Dyspnea (Chronic) Fatigue (Chronic) Hypokalemia (Chronic) Surgical History History of PTCA (Chronic 08/02/08) History of left heart catheterization (Chronic) History of prostate surgery (Resolved) Family History Mother CAD (coronary artery disease) CVA (cerebral vascular accident) Myocardial infarction, Onset Age: 67 Hypertension Brother CAD (coronary artery disease) Hypertension Cancer Lung CA Myocardial infarction, Onset Age: 73 Father Myocardial infarction, Onset Age: 77 Daughter Cancer Son Myocardial infarction, Onset Age: 46 Social History Smoking Status: Never smoker alcohol intake: never substance use type: does not use caffeine: Yes Type: coffee Number of servings: 1, carbonated beverages what type of physical activity do you participate in: none seatbelt use: always do you feel safe at home: Yes ROS Const Const: Negative for weakness, fatigue, fever(s) or headache(s) Eyes Eyes: Negative for blind spots, loss of peripheral vision or transient loss of vision ENT ENT: Negative for headache(s), dizziness, tinnitus or Nosebleed/epistaxis Cardio Chest Pain: No Palpitations: No Edema: None Muscle aches with walking: None Resp Respiratory: Negative for SOB with activity, SOB at rest, SOB orthopnea\SOB lying down or Cough GI GI: Negative nausea, vomiting, heartburn or vomiting blood/hematemesis : Negative for hematuria Musc Musc: Negative for muscle aches/ myalgia Neuro Neuro: Negative for weakness, headache(s), dizziness, near syncope, syncope, lightheadedness or orthostatic symptoms Travis Hematologic/Lymphatic: Negative for easy bleeding Endo Endo: Negative for fatigue Cardiology Exam Const Appearance: cooperative, no acute distress and well developed Orientation: alert, awake and oriented x3 Head Head: normocephalic and atraumatic Mouth: moist mucous membranes Eyes General: appearance normal, both eyes and all related structures Neck Neck: normal visual inspection, no lymphadenopathy and no JVD Carotids: Negative bruit Neck Mass: Negative Neck mass Chest Chest inspection: normal inspection of the chest, symmetric chest movement and Pacemaker/ICD Auscultation: Bilateral: Diminished Lung Sounds Cardio Palpation: normal PMI Rate: regular rate Rhythm: regular rhythm (ocassional irregular beat) Heart sounds: S1 normal, S2 normal and positive S4; negative murmur GI GI: normal to inspection and tender Neuro General: alert, awake, oriented x3, CN's II-XI intact bilaterally, moves all extremities, gait normal and other Extremities Pulses: Normal: Right Posterior Tibial Pulse, Left Posterior Tibial Pulse, Right Radial Pulse, Left Radial Pulse Lower Extremity Edema: None: Bilateral Psych Psychological: normal affect Supplemental Info Echocardiogram in 2017 demonstrated an ejection fraction of 40%. Left atrium mildly enlarged. Mild mitral insufficiency. Mild to moderate tricuspid insufficiency. Mild aortic stenosis. Mild aortic and pulmonic insufficiency. Pharmacologic nuclear stress test demonstrated extensive myocardial infarction with no ischemia. Assessment AND Plan 1. Atherosclerosis of [place] coronary artery of [place] heart without angina pectoris I25.10 PTCA/BMS to prox LAD 08/02/2008; Plan Patient does not have any symptoms of angina. He will continue with medical management. 2. Essential hypertension I10 Plan Patient's blood pressure still remains on the low side. His dizziness and shortness of breath have improved. We will have him stop his furosemide and his potassium supplement. He will let us know if he his any weight gain, increased fatigue or shortness of breath. Patient Instructions Stop your furosemide and your Potassium, let us know if your are getting short of breath, if so we may have to resume 3. Pure hypercholesterolemia E78.00 Plan This is managed by his primary care doctor. Have requested copy of labs for continuity of care. Plan Detail Other Medications Discontinued: Additional Comments Thank you for allowing us to participate in the patients plan of care, if you have any questions please do not hesitate to call. This note was generated using a voice recognition system and there may be incorrect words, spelling or punctuation that were not noted when reviewing the office note prior to saving. Follow Up 05/24/18 (Keep as is) Coding Level of Care Code Off vis,est,level 3 Diagnoses Atherosclerosis of [place] coronary artery of [place] heart without angina pectoris I25.10 [place] vs. transplanted heart: [place] heart Essential hypertension I10 Hypertension type: essential hypertension Pure hypercholesterolemia E78.00 Hyperlipidemia type: pure hypercholesterolemia Coding Level of Care Code Off vis,est,level 3 Diagnoses Atherosclerosis of [place] coronary artery of [place] heart without angina pectoris I25.10 [place] vs. transplanted heart: [place] heart Essential hypertension I10 Hypertension type: essential hypertension Pure hypercholesterolemia E78.00 Hyperlipidemia type: pure hypercholesterolemia 05/24/18 1438 <Electronically signed by Abril WHITE> Date Abril WHITE Cosigner Signature: Date (if applicable) CC: Shailesh Mancini CBC-COMPLETE BLOOD CNT Collected: 04/14/2018 Status: F Source: CHANTELL NO DIFF 10:21 AM [facility] REPOSITORY TYPE CODE TESTS RESULT OUT OF RANGE REFERENCE UNITS LAB L100.1000 4.4-11.0 K/mm3 Low WBC 3.8 LAB L100.1200 4.6-6.2 M/mm3 Low RBC 3.77 LAB L100.1300 13.0-16.5 g/dl Low HGB 11.9 LAB L100.1400 40-54 % Low HCT 35.3 LAB L100.1500 80-94 fL Normal MCV 93.6 LAB L100.1600 27.0-32.0 pg Normal MCH 31.6 LAB L100.1700 32-36 g/gl Normal MCHC 33.7 LAB L100.1810 11.6-14.6 % Normal RDW CV 14.2 LAB L100.1820 35.1-43.9 fl High RDW SD 46.2 LAB L100.1900 150-450 K/mm3 Normal PLT 162 LAB L100.2000 6.2-12.0 fl Normal MPV 11.6 Performed By: #### L100.0500 #### [facility] [address] [place], [place], [address] BASIC METABOLIC Collected: 04/14/2018 Status: F Source: CHANTELL PROFILE (BMP) 10:21 AM [facility] REPOSITORY TYPE CODE TESTS RESULT OUT OF RANGE REFERENCE UNITS LAB L501.0100 74-106 mg/dL Normal GLU 105 Result Comment: Fasting Glucose result from 100 to 125 mg/dL suggests IMPAIRED HOMEOSTASIS per A.D.A. criteria. Please note revised GLUCOSE reference range effective 2017. LAB L501.1000 7-18 mg/dL Normal BUN 13 LAB L501.1100 0.70-1.30 mg/dL Normal CREAT,SERUM 1.14 Result Comment: The validity of the calculated GFR AND GFRAA in patients over 70 years has not been determined. Clinical correlation is essential. LAB L501.1110 >60 mL/min Normal EST GFR 65 Result Comment: Non- GFR Calc LAB L501.1115 >60 mL/min Normal EST GFR - AA 79 Result Comment: GFR Calc LAB L501.1300 10-20 RATIO Normal BUN/CRE 11.4 LAB L501.2200 8.5-10.1 mg/dL Low CA 8.2 LAB L501.5300 136-145 mmol/L NA Normal 141 LAB L501.5600 3.5-5.1 mmol/L K Normal 4.0 LAB L501.5900 98-107 mmol/L CL Normal 105 LAB L501.6100 21.0-32.0 mmol/L Normal CO2 30.0 LAB L501.6200 5-15 Normal GAP 6 Performed By: #### L500.2500, L501.9520 #### [facility] [address] [place], [address] THYROID STIM HORMONE Collected: 04/14/2018 Status: F Source: CHANTELL (TSH) 10:21 AM [facility] REPOSITORY TYPE CODE TESTS RESULT OUT OF RANGE REFERENCE UNITS LAB L501.9520 0.358-3.74 uIU/mL Normal TSH 1.09 Performed By: #### L500.2500, L501.9520 #### [facility] [address] [place], [address] CAROTID UNILATERAL Observed: 01/13/2018 Status: F Source: CHANTELL 9:52 PM [facility] REPOSITORY [facility] [address] [place] [address] Carotid Unilateral 01/13/18 1246 MR#: [id number] Acct: [id number] Name: JORGE GUZMÁN Rep #: [id number] : 1935 83 From: Aurelio Jewell MD Attending Dr: Shailesh Mancini Status: REG CLI Ordering Dr: Shailesh Mancini MD Date: 01/13/18 Location: CVS Sex: M C Admitted: Reason For Study: Pulsatile tinnitus Lt. Velocities/BP Prox CCA 63.3/13.5 cm/sec. Mid CCA 79.7/14.7 cm/sec. Dist CCA 86.8/16.4 cm/sec. Prox ICA 52.9/14.5 cm/sec. Mid ICA 68.2/17.8 cm/sec. Dist ICA 54.3/12.8 cm/sec. Lt. ICA/CCA = .86. Prox ECA 63.0/0.0 cm/sec. Lt. Vert. 32.4/8.1 cm/sec. Left Extracranial There is homogeneous, smooth atherosclerotic plaque noted in the left common carotid artery. There is heterogeneous, irregular atherosclerotic plaque noted in the left internal carotid artery. There is heterogeneous, irregular atherosclerotic plaque noted in the left external carotid artery. Antegrade flow is noted in the left vertebral artery. Procedure Carotid Duplex 24914. LT side only per dr order. Exam performed in department. 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 Flow within the left verterbral artery is antegrade. Ordering Physician: Shailesh Mancini Referring Physician: Shailesh Mancini Performed By: Dipti Lynn RVT 01/13/182151 Date Aurelio Jewell MD CC: Shailesh Mancini Date Dictated: 01/13/18 1246 Date Transcribed: 01/13/182151 Maintenance Mechanic Engine: Signed PACEMAKER CHECK Observed: 01/10/2018 Status: F Source: HAYS 8:43 AM [facility] REPOSITORY [facility] [address] [place] [address] Pacemaker Check Date of Service: 12/29/17 1542 MR#: [id number] Acct: [id number] Name: JANIS GUZMÁNDESIREE Palomo Rep #: [id number] : 1935 From: Sloane Grubbs Age/Sex: 82/M Location: [facility] Status: Signed Comments Summary Comments: Dual Chamber ICD Evaluation: Interrogation shows no VT/VF episodes and no MS episodes since last check 09/27/17. Left pectoral pocket/incision w/o s/s of infection or erosion. No Alerts noted. Pt offers no cardiac complaints. Presenting rhythm shows NSR @ 61 bpm. IN FLIGHT CREW MEMBER=<1%. Battery longevity approx 6.7 to 7.9 yrs. Lead impedances, sensing and pace/sense thresholds remain stable. No parameter changes made. Counters cleared. Next f/u appt scheduled for in 3 mos. Device Device Date Interviewed: 12/29/17 Follow-up Location: in office Interview Reason: routine follow up Thrasher Feeder: [employer] Name: Zackary Orosco DR Model: [id number] Serial #: [id number] Implant Date: 04/16/16 Year(s): 1 Implant Physician: Dr Vincent Raphael Patient Characteristics Patient Substrate: Ischemic cardiomyopathy (chronic systolic CHF) Ejection fraction %: 40 to 44 (05/2017) By: Echo Underlying rhythm: Sinus rhythm Pacemaker Dependent: No Device Characteristics Device: Dual Chamber Type: Implantable defibrillator Remote Follow-Up: No Device Physical Exam Yes Incision well healed Leads Lead #1 Thrasher Feeder Lead 1: [employer] Model Lead 1: 1888TC/52 Serial# Lead 1: [id number] Date Implanted Lead 1: 04/11/09 Position Lead 1: RA Lead #2 Thrasher Feeder Lead 2: [employer] Model Lead 2: 7120/60 Serial# Lead 2: [id number] Date Implanted Lead 2: 04/11/09 Position Lead 2: RV Diagnostics Pacing % RA Pacin % RV Pacin Mode Switching Total # Episodes: 0 % Mode switched: 0 Arrhythmias VF Episodes: 0 Fast VT Episodes: 0 Slow VT Episodes: 0 Non-Sust Episodes: 0 Measurements Battery Charge Time (Sec): 9.3 Battery %: 83 Predicted Remaining Longevity (months or years): 6.7 to 7.9 years RA Measurements Signal Amplitude (mV): 0.9 Impedance (Ohms): 360 Threshold Voltage: 0.62 @ PW(ms): 0.5 RV Measurements Signal Amplitude (mV): 8.8 Impedance (Ohms): 450 Threshold Voltage: 0.75 @ PW(ms): 0.5 Shock Impedance (Ohms): 40 Tachy Settings Tachyarrhythmia Detection Ventricular Fibrillation Detect Rate: 222 bpm Faster VT Detect Rate: 176 bpm Tachyarrhythmia Therapies Ventricular Fibrillation Therapy: Shock therapy Initial shock: 36 Joules Final shock: 40 Joules. Fast Ventricular Tachycardia Therapies: Antitachycardia pacing and shock therapy Initial shock: 36 Joules Final shock: 40 Joules. Berhane Settings Pacemaker Mode: DDD Base Rate: 40 bpm Max Track Rate: 120 bpm Maximum AV Delay: 275 msec Bradycardia Output and Sensitivity Settings Right Atrium: 0.5 msec, 2.5 volts, Automatic mV sensitivity. Right Ventricle: 0.5 msec, 2.5 volts, Automatic mV sensitivit Billing Codes ICD Device Billing: ICD Dev Prog Eval, Dual Assessment AND Plan Problems 1. History of implantable cardioverter-defibrillator (ICD) placement Z95.810 2. Cardiomyopathy, ischemic I25.5 3. Chronic systolic congestive heart failure I50.22 4. Coronary artery disease involving [place] coronary artery of [place] heart without angina pectoris I25.10 01/08/18 0832 <Electronically signed by Sloane Grubbs > Date Sloane Grubbs 01/10/18 0843<Electronically signed by Abril WHITE> [facility] Signature: Date (if applicable) Abril Dupree CC: CARDIOLOGY VISIT Observed: 12/15/2017 Status: F Source: HAYS REPORT 5:51 PM [facility] REPOSITORY [facility] [address] [place] [address]. [address] [place] [address] OFFICE VISIT Date of Service: 12/15/17 MR#: [id number] Acct: [id number] Name: JORGE GUZMÁN Rep #: [id number] : 1935 Provider: SUPRIYA Abraham Age/Sex: 82/M Location[place] [facility] [place] Status: Signed HPI HPI Details: JORGE GUZMÁN, is a 82 M who presents to the office today for a cardiovascular outpatient follow-up. Patient has a history of coronary artery disease with anterior myocardial infarction remotely with bare metal stent to proximal LAD in August 2008, ischemic cardiomyopathy, status post ICD implantation, hypertension, and hyperlipidemia. Pt. states feeling decent today. A few days ago he had some wheezing and lightheadedness. He gets spells where I don't feel good. He state he gets lightheadedness and dizzy once in a while. This has not worsened since last office. Pt. denies chest, arm, jaw, or neck discomfort. His exercise tolerance is stable. Pt. denies symptoms of CHF, near syncope, or syncopal episodes. Pt. denies edema or claudication issues. Pt. denies orthopnea, PND, fever, chills, blood in urine, blood in stool, myalgia, or unexplainable fatigue. Echocardiogram from May 2017 showed an estimated ejection fraction of 40%, mildly enlarged left atrium, mild mitral valve insufficiency, mild to moderate tricuspid valve insufficiency, mild aortic stenosis, mild aortic valve insufficiency, and mild pulmonic valve insufficiency. Cardiovascular stress test from June 2017 showed previous myocardial infarction and no myocardial induced ischemia. Ejection fraction was reported at 44%. Heart catheterization from March 2010 showed pre-existing stent to LAD to have minimal luminal irregularities, 85% stenosis of mid LAD, 50-75% stenosis of the mid LCx, ejection fraction 35%, and mild to moderate elevated LVEDP. HPer report, it was recommended that patient undergo IVUS or FFR for PCI evaluation. Patient denies any stenting at that time and further records are not available for review regarding if IVUS or FFR evaluation was completed. Intake Vital Signs12/15/17 Height 5 ft 3 in 12/15/17 Weight: 135 lb 12/15/17 Body Mass Index (BMI) 23.9 12/15/17 Blood Pressure 98/58 Intake Visit Reasons: 1 M FU Is patient in pain?: No Allergies morphine Allergy (Intermediate, Verified 12/15/17 11:44) Other zolpidem tartrate [From Ambien] Adverse Reaction (Intermediate, Verified 12/15/17 11:44) Other Medications Aspirin [Aspirin, Baby] 81 mg PO DAILY 05/05/16 [History Confirmed 11/25/17] Pantoprazole Sodium [Protonix] 20 mg PO DAILY 03/05/16 [History Confirmed 09/28/16] Nitroglycerin [Nitrostat] 0.4 mg SUBLINGUAL Q5M PRN 04/15/16 [History Confirmed 11/25/17] diphenhydramine 25 mg-acetaminophen 500 mg tablet 1 tab PO QHS PRN tab 10/22/17 [History Confirmed 11/25/17] furosemide 40 mg tablet 40 mg PO ONCE #90 tab 10/22/17 [Rx Confirmed 11/25/17] clopidogrel 75 mg tablet 75 mg PO DAILY #90 tab 11/19/17 [Rx Confirmed 11/25/17] potassium chloride ER 10 mEq tablet,extended release(part/cryst) 10 meq PO DAILY #90 tab 12/03/17 [Rx] simvastatin 20 mg tablet 20 mg PO QHS #90 tab 12/03/17 [Rx] carvedilol 12.5 mg tablet 12.5 mg PO BID #180 tab 12/15/17 [Rx Confirmed 12/15/17] isosorbide dinitrate 30 mg tablet 30 mg PO ONCE #90 tab 12/15/17 [Rx Confirmed 12/15/17] losartan 25 mg tablet 25 mg PO QDAY #90 tab 12/15/17 [Rx Confirmed 12/15/17] Ejection fraction %: 40 to 44 PFSH Medical History Family history of CVA (Chronic) Family history of hypertension (Chronic) FH: sudden cardiac (SCD) (Chronic) History of placement of internal cardiac defibrillator (Chronic) HTN (hypertension) (Chronic) 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 (Chronic) Cardiomyopathy, ischemic (Chronic) Chronic systolic congestive heart failure (Chronic) HLD (hyperlipidemia) (Chronic) Abnormal result of cardiovascular function study, unspecified (Chronic) High risk medication use (Chronic) Iron deficiency anemia (Chronic) Chest pain, precordial (Chronic) Atherosclerotic heart disease of [place] coronary artery without angina pectoris (Chronic) Dyspnea (Chronic) Fatigue (Chronic) Hypokalemia (Chronic) Surgical History History of PTCA (Chronic 08/02/08) History of left heart catheterization (Chronic) Family History Mother CAD (coronary artery disease) CVA (cerebral vascular accident) Myocardial infarction, Onset Age: 67 Hypertension Brother CAD (coronary artery disease) Hypertension Cancer Lung CA Myocardial infarction, Onset Age: 73 Father Myocardial infarction, Onset Age: 77 Daughter Cancer Son Myocardial infarction, Onset Age: 46 Social History Smoking Status: Never smoker alcohol intake: never substance use type: does not use caffeine: Yes Type: coffee Number of servings: 1, carbonated beverages what type of physical activity do you participate in: none seatbelt use: always do you feel safe at home: Yes ROS Const Const: Negative for fatigue, weakness, body ache, fever(s) or chills ENT ENT: Positive for dizziness Cardio Chest Pain: No Palpitations: Positive for Yes Edema: None Muscle aches with walking: None Resp Respiratory: Negative for SOB with activity, SOB at rest, SOB orthopnea\SOB lying down or paroxysmal nocturnal dyspnea GI GI: Negative nausea, black,tarry stools, bright, red blood in stools or vomiting blood/hematemesis : Negative for hematuria or frequent nighttime urination/ nocturia Musc Musc: Negative for muscle aches/ myalgia Neuro Neuro: Positive for lightheadedness, Positive for dizziness, Negative for weakness, Positive for other (decrease in balance) Endo Endo: Negative for fatigue Cardiology Exam Const Appearance: cooperative, no acute distress and well developed Orientation: alert, awake and oriented x3 Head Head: normocephalic and atraumatic Mouth: moist mucous membranes Eyes General: appearance normal, both eyes and all related structures Neck Neck: normal visual inspection, no lymphadenopathy and no JVD Carotids: Negative bruit Neck Mass: Negative Neck mass Chest Chest inspection: normal inspection of the chest, symmetric chest movement and Pacemaker/ICD Auscultation: Bilateral: Diminished Lung Sounds Cardio Palpation: normal PMI Rate: regular rate Rhythm: regular rhythm (ocassional irregular beat) Heart sounds: S1 normal, S2 normal and positive S4; negative murmur GI GI: normal to inspection and tender Neuro General: alert, awake, oriented x3, CN's II-XI intact bilaterally, moves all extremities, gait normal and other Extremities Pulses: Normal: Right Posterior Tibial Pulse, Left Posterior Tibial Pulse, Right Radial Pulse, Left Radial Pulse Lower Extremity Edema: None: Bilateral Psych Psychological: normal affect Assessment AND Plan 1. Atherosclerosis of [place] coronary artery of [place] heart without angina pectoris I25.10 PTCA/BMS to prox LAD 08/02/2008; Plan - MORTEZA Pillai Patient denies any chest pain, arm pain, jaw pain, neck pain, shortness of breath, or fatigue suggestive of angina at this time. We will continue to monitor this. We will not make any medication regimen changes and will continue risk factor modification. Orders Orders: 2. Ischemic cardiomyopathy I25.5 MORTEZA Blanco Patient's most recent echocardiogram from May 2017 is noted above. Patient states since increasing his Lasix to 40 mg once a day his shortness of breath has resolved and resumed to baseline. We will continue current medications which include beta-simran, ARB, and diuretic. Orders Orders: 3. Pure hypercholesterolemia E78.00 MORTEZA Blanco This is managed by primary care physician. We will continue current cholesterol-lowering medication. 4. Shortness of breath R06.02; R06.00; R06.01 MORTEZA Blanco This is resolved since increasing Lasix to 40 mg once a day. His potassium was rechecked post adjustment and showed it to be 3.6. We will continue to monitor this. Patient was instructed to contact our office if he notices any change in his respiratory status. 5. History of placement of internal cardiac defibrillator Z95.810 ICD Implant 04/11/2009, ICD Gen Change 04/16/2016 MORTEZA Blanco Patient's pacemaker/ICD appears to be functioning appropriately. We will continue to monitor this with routine/scheduled follow-ups. 6. Dizziness R42 MORTEZA Blanco Patient's does state over the last 2-3 months he has has noticed some episodes of dizziness. His blood pressure is on the lower end of normal today in office. We will decrease his losartan from 50 mg to 25 mg once a day. He will continue to monitor his blood pressure at home and contact our office if he notices that continues to remain low or if remains elevated. Hopefully this will improve his dizziness. 7. Palpitations R00.2 MORTEZA Blanco Patient describes this as wheezing. On physical exam irregular beats were noted. EKG was done to evaluate his rhythm as potential source of dizziness and palpitation. EKG showed sinus rhythm with ectopic ventricular beat. Left axis deviation is not new for patient. He has been out of his Coreg for the last 3 days, which may be why sudden increase in palpitation. We will resume this to help with palpitation sensation. Plan Detail Other Medications New: Changed: Additional Comments - Jack Abraham NP-C Discussed the above patient with Dr. Abbott, he agrees with the plan of care. Thank you for allowing us to participate in the patients plan of care, if you have any questions please do not hesitate to call. This note was generated using a voice recognition system and there may be incorrect words, spelling or punctuation that were not noted when reviewing the office note prior to saving. Follow Up 10 Months (PFM) Coding Level of Care Code Off vis,est,level 3 Diagnoses Atherosclerosis of [place] coronary artery of [place] heart without angina pectoris I25.10 [place] vs. transplanted heart: [place] heart Ischemic cardiomyopathy I25.5 Pure hypercholesterolemia E78.00 Hyperlipidemia type: pure hypercholesterolemia Shortness of breath R06.02; R06.00; R06.01 Dyspnea type: shortness of breath History of placement of internal cardiac defibrillator Z95.810 Dizziness R42 Palpitations R00.2 Coding Level of Care Code Off vis,est,level 3 Diagnoses Atherosclerosis of [place] coronary artery of [place] heart without angina pectoris I25.10 [place] vs. transplanted heart: [place] heart Ischemic cardiomyopathy I25.5 Pure hypercholesterolemia E78.00 Hyperlipidemia type: pure hypercholesterolemia Shortness of breath R06.02; R06.00; R06.01 Dyspnea type: shortness of breath History of placement of internal cardiac defibrillator Z95.810 Dizziness R42 Palpitations R00.2 12/15/17 1612 <Electronically signed by Jack HERNADEZC> Date Jack Abraham WELFARE OFFICER-C 12/15/17 1751<Electronically signed by Robbi Abbott MD> Cosigner Signature: Date (if applicable) Robbi Abbott MD CC: Shailesh Mancini 12 LEAD EKG PERFORMED Observed: 12/15/2017 Status: F Source: CHANTELL BY MASHA 3:25 PM [facility] REPOSITORY [facility] [address] [place] [address] 12 Lead E[place] [facility] 12/15/17 1523 MR#: [id number] Acct: [id number] Name: JORGE GUZMÁN Rep #: [id number] : 1935 82 From: Jack Abraham WELFARE OFFICER-C Attending Dr: Jack Abraham WELFARE OFFICER Status: DEP AMB Ordering Dr: Jack Abraham WELFARE OFFICER-C Date: 12/15/17 [place] [facility] [place]: M C Admitted: BMS/12 Lead EKG performed [place] [facility] ECG Report Interpretation Sinus Rhythm with intermittent electronic ventricular paced beatLeft axis deviationAnteroseptal infarct -age undetermined - cannot be excluded ABNORMAL Electronically signed on 12/15/2017 at 17:53 by Robbi Abbott 12/15/17 1758 Date Jack Abraham WELFARE OFFICERCaydenC CC: Shailesh Mancini Date Dictated: 12/15/17 152 Date Transcribed: 12/15/171522 Maintenance Mechanic Engine: RAYA Signed ALLERGIES ALLERGIES DATE TYPE / CODE NAME / CODE REACTION SEVERITY SOURCE 10/03/2018 Drug zolpidem Other [facility] Allergy/416 tartrate/Z38248 Hospital 236326(SNOM 4147(RXNORM) Repository ED CT) 10/03/2018 Drug morphine/K78488 Other [facility] Allergy/416 1545(RXNORM) Hospital 604480(SNOM Repository ED CT) ENCOUNTERS ENCOUNTERS ADMIT/DISCHARGE ACCOUNT ADMITTING ENCOUNTER LOCATION SOURCE NUMBER CLASS 11/21/2018 [id number] Ambulatory [place] 2 [facility] ing:LAB Repository 10/28/2018 [id number] Ambulatory BMSBuilding:B [place] 8 [place].[facility] Repository 10/28/2018 [id number] Ambulatory [place] 7 [facility] ing:[facility] Repository 10/20/2018/ [id number] Ambulatory BMSBuilding:B [place] 8 1 [place].[facility] Repository 10/03/2018/ [id number] Ambulatory BMSBuilding:B [place] 8 9 [place].[facility] Repository 09/30/2018 [id number] Ambulatory BMSBuilding:B [place] 6 [place].[facility] Repository 08/17/2018/ [id number] Ambulatory BMSBuilding:B [place] 8 7 [facility] Repository 05/24/2018/ [id number] Ambulatory BMSBuilding:B [place] 8 5 MS.[facility] Repository 04/14/2018 [id number] Ambulatory [place] 2 [facility] ing:LAB Repository 04/06/2018/ [id number] Ambulatory BMSBuilding:B [place] 8 4 [place].[facility] Repository 04/06/2018/ [id number] Ambulatory BMSBuilding:B [place] 8 7 [place].[facility] Repository 01/13/2018 [id number] Ambulatory [place] 4 [facility] Hospital ing:[facility] Repository 12/29/2017/ [id number] Ambulatory BMSBuilding:B [place] 8 1 [place].[facility] Repository 12/15/2017/ [id number] Ambulatory BMSBuilding:B [place] 8 4 [facility] Repository 12/15/2017 [id number] Ambulatory BMSBuilding:B [place] 3 [facility] Repository PAYERS PAYERS ENCOUNTER GUARANTOR PAYER SUBSCRIBER SOURCE 11/21/2018 JORGE L Primary JORGE L [place] [id number] DEER Insurance:NICHO CONWAY: [facility] [id number] [address]Tbb: HMOPolicy Number: Repository [id number] () e Date:2611-12-19[address] [address]: 11/21/2018 Secondary NOT GIVENUNK [place] Insurance:[facility]LF [facility]Y [facility] Effective Repository Date:2018-11-21 10/28/2018 JORGE L Primary JORGE L [place] [id number] DEER Insurance[facility]: [facility] [id number] [place] [address]Kbj: [facility] [id number] () e Date:7153-75-18XT [facility] [address] [address]LP: 10/28/2018 Secondary NOT GIVENUNK [place] Insurance:SELF PAY [facility] Number: Effective Repository Date:2018-10-28 10/28/2018 JORGE L Primary JORGE L [place] [id number] DEER Insurance:[facility]: [facility] [id number] [place] [address]Hpw: [facility]: Repository [id number] () e Date:4540-10-99GN [facility] [address] [address]NY: 10/28/2018 Secondary NOT GIVENUNK [place] Insurance:SELF PAY [facility] Number: Effective Repository Date:2018-10-03 10/20/2018 JORGE L Primary JORGE L [place] [id number] DEER Insurance:NICHO [facility]: [facility] [id number] Hospital [place] [address]Edh: [facility]: Repository [id number] () e Date:7576-25-04RS [facility] [address] [address]YR: 10/20/2018 Secondary NOT GIVENUNK [place] Insurance:SELF PAY [facility] Number: Effective Repository Date:2018-10-03 10/03/2018 JORGE L Primary JORGE L [place] [id number] DEER Insurance:NICHO RAMIREZB: [facility] [id number] Valley Health Centericy Number: Repository [id number]: 330 [id number] [phone] () e Date:6962-40-99[address] [place] [address]OC: 10/03/2018 Secondary NOT GIVENUNK [place] Insurance:SELF PAY [facility] Number: Effective Repository Date:2018-10-03 09/30/2018 JORGE L Primary JORGE L [place] [id number] DEER Insurance:NICHO BE: [facility] [id number] Valley Health Centericy Number: Repository [id number]: 330 [id number] [phone] () e Date:5460-81-87WA [address], [place] [address]FQ: 09/30/2018 Secondary NOT GIVENUNK [place] Insurance:SELF PAY [facility] Number: Effective Repository Date:2018-09-30 08/17/2018 JORGE L Primary JORGE L [place] [id number] DEER Insurance:NICHO BE: [facility] [id number] Number: Repository [address]Eye: 330 [id number] [phone] () e Date:2200-28-42SJ [address], [place] [address]GG: 08/17/2018 Secondary NOT GIVENUNK [place] Insurance:SELF PAY [facility] Number: Effective Repository Date:2018-08-17 05/24/2018 JORGE L Primary JORGE L [place] [id number] DEER Insurance:NICHO BE: [facility] [id number] Number: Repository [id number]: [phone] [id number] [phone] () e Date:8074-13-34BO [address], [place] [address]DL: 05/24/2018 Secondary NOT GIVENUNK [place] Insurance:SELF PAY [facility] Number: Effective Repository Date:2018-05-24 04/14/2018 JORGE L Primary JORGE L [place] [id number] DEER Insurance:[facility]: [facility] [id number] Service Unit [address]Iur: [facility] Number: Repository [id number] () e Date:3621-25-61ZE [address], [place] [address]PC: 04/14/2018 Secondary NOT GIVENUNK [place] Insurance:SELF PAY [facility] Number: Effective Repository Date:2018-04-14 04/06/2018 JORGE L Primary JORGE L [place] [id number] DEER Insurance:[facility]: [facility] [id number] Valley Health Centericy Number: Repository [id number]: 234 [id number] [phone] () e Date:4763-44-91MR [facility] [address] [address]TU: 04/06/2018 Secondary NOT GIVENUNK [place] Insurance:SELF PAY [facility] Number: Effective Repository Date:2018-04-18 04/06/2018 JORGE L Primary JORGE L [place] [id number] DEER Insurance:[facility]: [facility] [id number] Valley Health Centericy Number: Repository [id number]: 234 [id number] [phone] () e Date:2971-28-38NA [facility] [address] [address]CM: 04/06/2018 Secondary NOT GIVENUNK [place] Insurance:[facility]LF [facility]Y [facility] Number: Effective Repository Date:2018-03-10 01/13/2018 JORGE L Primary JORGE L [place] [id number] DE[place] Insurance:[facility]: [facility] [id number] [place] [address]Tmu: [facility] Number: Repository [id number] () e Date:9488-90-61RM [facility] [address], [place] [address]EY: 01/13/2018 Secondary NOT GIVENUNK [place] Insurance:SELF PAY [facility] Number: Effective Repository Date:2017-12-31 12/29/2017 JORGE L Primary JORGE L [place] [id number] DE[place] Insurance:[facility]: [facility] [id number] [place] [address]Sum: [facility]: Repository [id number] () e Date:1857-97-49LS [address], [place] [address]LR: 12/29/2017 Secondary NOT GIVENUNK [place] Insurance:SELF PAY [facility] Number: Effective Repository Date:2017-10-11 12/15/2017 JORGE L Primary JORGE L [place] [id number] DE[place] Insurance:[facility]: [facility] [id number] [place] [address]Srz: [facility] Hospitalic Number: Repository [id number] () e Date:4304-90-15CQ [address], [place] [address]QD: 12/15/2017 Secondary NOT GIVENUNK [place] Insurance:SELF PAY [facility] Number: Effective Repository Date:2017-11-16 12/15/2017 JORGE L Primary JORGE L [place] [id number] DEER Insurance:[facility]: [facility] [id number] [place] [address]Sxf: [facility] Number: Repository [id number] (HP) e Date:9142-26-38FN [address] [address]LI: 12/15/2017 Secondary NOT GIVENUNK [place] Insurance:SELF PAY [facility] Number[facility] Effective Repository Date:2017-12-15
== END ==
PROVIDERS: Internal Medicine Cardiovascular Disease; Family Provider Family Medicine; PCP Family Medicine; Referring Provider Physician Assistant Medical; Visit Provider Physician Assistant Medical
DX: I25.5 Ischemic cardiomyopathy (principal); I50.22 Chronic systolic (congestive) heart failure
CPT/HCPCS: 36415; 80048

== ENCOUNTER → 2018-12-23 14:13 | Outpatient (CLI) | payer MEDICARE, SELFPAY ==
[2018-10-03 14:25] VITALS: BMI 23.7
[2018-12-23 14:17] LABS: Mucous, Urine 0 SEEN /hpf (<or=2+); Squamous Epithelial Cells - UA 0 SEEN /hpf (0-5)
[2018-12-23 15:27] LABS: Color, Urine Yellow (Yellow); Glucose, Dipstick Normal (Normal); Ketone-Dipstick Negative (Negative); Leukocyte Esterase-Dipstick 500 /ul (Negative); Nitrite-Dipstick Negative (Negative); Occult Blood-Urine 150 /ul (Negative); Protein-Dipstick 30 mg/dl (Negative); Urine Bilirubin Dipstick Negative (Negative); Urine Clarity Cloudy (Clear); Urine Urobilinogen Normal (Normal)
[2018-12-23 15:31] LABS: Anion Gap 5 (5-15); BUN 18 mg/dL (7-18); BUN/Creat Ratio 17.8 RATIO (10-20); Calcium,Total 8.4 mg/dL (8.5-10.1); Chloride 111 mmol/L (98-107); Creatinine, Serum 1.01 mg/dL (0.70-1.30); EST Glomerular Filtration Rate 75 mL/min (>60); Est Glom Filt Rate - Afr Amer 91 mL/min (>60); Glucose 51 mg/dL (74-106); Potassium 4.5 mmol/L (3.5-5.1); Sodium Level 142 mmol/L (136-145)
[2018-12-23 15:40] LABS: Amorphous Sediment 2+; Bacteria 3+ /hpf (None Seen); White Blood Cells 5-10 SEEN /hpf (0-5)
[2018-12-23 15:42] LABS: Triple Phosphate Crystals Ur 2+ /hpf (<or=1+)
[2018-12-23 18:36] LABS: Red Blood Cells-Urine 0 SEEN /hpf (0-5)
== END ==
PROVIDERS: Family Provider Family Medicine; PCP Family Medicine; Referring Provider Nurse Practitioner Family; Visit Provider Nurse Practitioner Family
DX: R30.0 Dysuria (principal)
CPT/HCPCS: 36415; 80048; 81001

== ENCOUNTER 2018-12-27 20:57 | Inpatient (IN) | payer MEDICARE, SELFPAY ==
[2018-10-03 14:25] VITALS: BMI 23.7
[2018-12-27 21:00] VITALS: BP 140/77; PULSE 95; RESP 21; TEMP 36.9; O2SAT 96; BMI 24.0
[2018-12-27 21:03] VITALS: BP 132/81; PULSE 91; RESP 19; O2SAT 96
--- NOTE | 2018-12-27 21:46 | CT_ITS ---
STUDY: CT BRAIN WITHOUT CONTRAST REASON FOR EXAM: Male, 83 years old. Weakness and vertigo. RADIATION DOSAGE (If Supplied By Facility): CTDIvol = ( 44.99 ) mGy, DLP = ( 762.36 ) mGycm TECHNIQUE: Transaxial CT imaging of the brain was performed without administration of intravenous contrast material. Individualized dose optimization techniques were used for this CT. COMPARISON: 02/22/2016. FINDINGS: There is no definite acute abnormality. There is diffuse moderate symmetric atrophy. There is atrophy of the posterior fossa structures. There is prominent diffuse small vessel ischemic disease of the white matter. There is no definite acute infarct. There is no bleed. There is no gross mass, mass effect, or midline shift. There is no acute abnormality of the skull. No fractures. Grossly normal orbits. Grossly normal sinuses. CT/Brain/Head without Contrast IMPRESSION: Chronic age related changes and atrophy. No acute abnormality. Electronically Signed: Tien Luo MD at 22:40 EST , Service support ,
--- NOTE | 2018-12-27 21:47 | EKG12_ITS ---
Test Reason : WEAKNESS Blood Pressure : / mmHG Vent. Rate : 093 BPM Atrial Rate : 093 BPM P-R Int : 186 ms QRS Dur : 108 ms QT Int : 362 ms P-R-T Axes : 054 -21 091 degrees QTc Int : 450 ms Normal sinus rhythm Nonspecific T wave abnormality Abnormal ECG Confirmed by VANITA PASCUAL, JUSTYN ([id number]), editor department TEENA PAYAN ([id number]) on 12/29/2018 3:53:43 PM Referred By: Jack Abraham Confirmed By:JUSTYN WALDRON MD
[2018-12-27 22:15] LABS: Bacteria 0 SEEN /hpf (None Seen); Mucous, Urine 0 SEEN /hpf (<or=2+); Red Blood Cells-Urine 0 SEEN /hpf (0-5)
[2018-12-27 22:16] LABS: Color, Urine Yellow (Yellow); Glucose, Dipstick 100 mg/dl (Normal); Leukocyte Esterase-Dipstick 100 /ul (Negative); Nitrite-Dipstick Negative (Negative); Occult Blood-Urine 50 /ul (Negative); Protein-Dipstick 30 mg/dl (Negative); Urine Bilirubin Dipstick Negative (Negative); Urine Clarity Clear (Clear); Urine Urobilinogen 1 mg/dl (Normal)
[2018-12-27] MEDS: Ondansetron 4 MG/2 ML Vial IV (22:16)
[2018-12-27] MEDS: Ketorolac 15 MG/ML Vial IV (22:16)
--- NOTE | 2018-12-27 22:24 | RAD_ITS ---
STUDY: X-RAY CHEST REASON FOR EXAM: Male, 83 years old. Weakness and fever TECHNIQUE: Frontal and lateral views of the chest. COMPARISON: 08/16/2017. FINDINGS: The lungs are clear and expanded. There is no demonstrated pleural abnormality. There is mild cardiac enlargement. Pacemaker is seen with leads terminating in the right atrium and right ventricle. Normal mediastinum and emely. Normal visualized pulmonary arteries. Normal visualized aortic arch and descending thoracic aorta. There are diffuse degenerative changes of the visualized thoracic spine. Normal visualized ribs, clavicles, and shoulders. There is no demonstrated abnormality of the visualized soft tissue structures of the upper abdomen. RAD/Chest PA and Lateral IMPRESSION: Mild cardiomegaly. No acute chest disease. Electronically Signed: Tien Luo MD at 22:38 EST , Service support ,
[2018-12-27 22:28] LABS: Ketone-Dipstick 150 mg/dl (Negative)
[2018-12-27 22:31] LABS: Squamous Epithelial Cells - UA 0-5 SEEN /hpf (0-5); White Blood Cells 5-10 SEEN /hpf (0-5)
[2018-12-27 22:31] LABS: ALB/GLOB Ratio 0.9 RATIO (0.9-2.4); AST(SGOT) 22 U/L (15-37); Alanine Aminotransfer ALT/SGPT 15 U/L (16-61); Albumin, Serum 3.5 g/dL (3.2-5.0); Alkaline Phosphatase 64 U/L (45-117); Anion Gap 10 (5-15); BUN 17 mg/dL (7-18); BUN/Creat Ratio 17.5 RATIO (10-20); Chloride 103 mmol/L (98-107); Creatinine, Serum 0.97 mg/dL (0.70-1.30); EST Glomerular Filtration Rate 78 mL/min (>60); Est Glom Filt Rate - Afr Amer 95 mL/min (>60); Estimated Creatinine Clearance 47.25 ml/min; Globulin 4.1 g/dL (2.2-4.2); Glucose 126 mg/dL (74-106); Potassium 3.5 mmol/L (3.5-5.1); Protein, Total 7.6 g/dL (6.4-8.2); Sodium Level 135 mmol/L (136-145)
[2018-12-27 22:35] LABS: Absolute Lymphocyte Count 1.49 X10^3/ul (0.83-4.51); Absolute Neutrophil Count 13.1 X10^3/uL (2.0-7.7); Basophil# 0.01 X10^3/uL; Basophil% 0.1 % (0-1); Hematocrit 38.5 % (40-54); Hemoglobin 12.6 g/dl (13.0-16.5); Lymphocyte # 1.49 X10^3/ul (4.0); Lymphocyte % 9.5 % (19-41); Mean Corp Hgb Conc 32.7 g/gl (32-36); Mean Corpuscular Hgb 30.3 pg (27.0-32.0); Mean Corpuscular Volume 92.5 fL (80-94); Mean Platelet Vol. 11.1 fl (6.2-12.0); Monocyte# 1.07 X10^3/uL; Monocyte% 6.8 % (0-10); Neutrophil # 13.05 X10^3/uL (2.7-7.7); Neutrophil % 83.5 % (47-70); POSITIVE COUNT NO; POSITIVE DIFFERENTIAL NO; POSITIVE MORPHOLOGY NO; Platelet Count 164 K/mm3 (150-450); RBC Distribution Width CV 13.9 % (11.6-14.6); RBC Distribution Width SD 46.7 fl (35.1-43.9); Red Blood Count 4.16 M/mm3 (4.6-6.2); White Blood Count 15.6 K/mm3 (4.4-11.0)
[2018-12-27 22:59] LABS: Ammonia < 10.0 umol/L (11-32); Lactic Acid 1.7 mmol/L (0.4-2.0)
[2018-12-28] VITALS (27 sets, daily range): BP systolic 89–126; BP diastolic 40–91; PULSE 55–84; RESP 14–18; TEMP 36.4–37.2; O2SAT 94–100; BMI 22.4; BMI 22.3
[2018-12-28] MEDS: Aspirin 81 MG TAB.CHEW 324 MG PO (00:24)
--- NOTE | 2018-12-28 01:05 | HP.PCM_ITS ---
Problem List (1) Sepsis Status: Acute Qualifiers: Sepsis type: sepsis due to unspecified organism Qualified Code(s): A41.9 - Sepsis, unspecified organism (2) Orchitis of right testicle Status: Acute (3) Elevated troponin Status: Acute (4) Otitis media Status: Acute Qualifiers: Otitis media type: unspecified nonsuppurative Laterality: right Qualified Code(s): H65.91 - Unspecified nonsuppurative otitis media, right ear History of Present Illness Date of Admission: 12/28/18 Chief Complaint: testicular pain. vomiting. The patient is a 83 year old M who was in his normal state of health up until this past Wednesday. Since then patient has had pain in his scrotum, dysuria, vomiting, malaise, decreased oral intake and right ear pain. Unclear when patient followed up and started on antibiotic the patient was diagnosed with a kidney infection. He was started on ciprofloxacin. Patient continued to feel unwell despite that. Patient also was found to have ear infection on his right. Patient just not feeling well and unable to adequately care for himself and was brought to the emergency room. Patient was noted to have a white count of 15,000 and right testicular swelling and pain. Patient was not having any chest pain but did have a troponin ordered that came back at 0.145, total bilirubin of 3.1. In the emergency room, patient received aspirin, Toradol, Zofran and 500 cc of saline. [] Past Medical History Past Medical History (Chronic Problems): Chronic Problems (Last Updated 10/20/18 @ 15:04 by Sloane Grubbs) 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) Essential hypertension (Chronic) History of placement of internal cardiac defibrillator (Chronic) ICD Implant 04/11/2009, ICD Gen Change 04/16/2016 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 (Chronic) Cardiomyopathy, ischemic (Chronic) Chronic systolic congestive heart failure (Chronic) HLD (hyperlipidemia) (Chronic) Abnormal result of cardiovascular function study, unspecified (Chronic) High risk medication use (Chronic) Iron deficiency anemia (Chronic) Chest pain, precordial (Chronic) Atherosclerotic heart disease of [place] coronary artery without angina pectoris (Chronic) PTCA/BMS to prox LAD 08/02/2008; Dyspnea (Chronic) Fatigue (Chronic) Hypokalemia (Chronic) Hyperlipidemia (Chronic) Benign prostatic hypertrophy (Chronic) Medical History: Medical History (Last Reviewed 12/28/18 @ 01:05 by Suraj Garg DO) 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) Z45.09 Essential hypertension (Chronic) I10 History of placement of internal cardiac defibrillator (Chronic) Z95.810 ICD Implant 04/11/2009, ICD Gen Change 04/16/2016 Old myocardial infarction (Chronic) I25.2 Angina pectoris (Chronic) I20.9 Cardiomyopathy, ischemic (Chronic) I25.5 Chronic systolic congestive heart failure (Chronic) I50.22 HLD (hyperlipidemia) (Chronic) E78.5 Abnormal result of cardiovascular function study, unspecified (Chronic) R94.30 High risk medication use (Chronic) Z79.899 Iron deficiency anemia (Chronic) D50.9 Chest pain, precordial (Chronic) R07.2 Atherosclerotic heart disease of [place] coronary artery without angina pectoris (Chronic) I25.10 PTCA/BMS to prox LAD 08/02/2008; Dyspnea (Chronic) R06.00 Fatigue (Chronic) R53.83 Hypokalemia (Chronic) E87.6 GERD (gastroesophageal reflux disease) K21.9 FH: sudden cardiac (SCD) (Inactive) Z82.41 Family history of CVA (Inactive) Z82.3 Family history of hypertension (Inactive) Z82.49 HTN (hypertension) (Inactive) I10 Allergies morphine Allergy (Intermediate, Verified 12/27/18 21:03) Other RASH zolpidem tartrate [From Ambien] Adverse Reaction (Intermediate, Verified 12/27/18 21:03) Other CONFUSION Home Medications: Ambulatory Orders Medication Instructions Recorded Aspirin [Aspirin, Baby] 81 mg PO DAILY 03/05/16 Nitroglycerin [Nitrostat] 0.4 mg SUBLINGUAL Q5M PRN 04/15/16 diphenhydramine 25 1 tab PO QHS PRN tab 10/22/17 mg-acetaminophen 500 mg tablet carvedilol 12.5 mg tablet 12.5 mg PO BID #180 tab 10/03/18 clopidogrel 75 mg tablet 75 mg PO DAILY #90 tab 10/03/18 isosorbide mononitrate ER 30 mg 30 mg PO QAM #90 tab 10/03/18 tablet,extended release 24 hr sacubitril 24 mg-valsartan 26 mg 1 tab PO BID #60 tab 11/02/18 tablet simvastatin 20 mg tablet 20 mg PO QHS #90 tab 12/05/18 Ciprofloxacin [Cipro] 500 mg PO BID 12/28/18 Meclizine HCl 12.5 mg PO Q4H PRN PRN 12/28/18 Surgical History: Surgical History (Last Reviewed 10/03/18 @ 14:29 by Abril Daly) History of PTCA Onset Date: 08/02/08 Z98.61 PTCA and bare metal stent to proximal LAD History of left heart catheterization Z98.890 History of hernia repair Z98.890, Z87.19 History of prostate surgery Z98.890 X 2 S/P TURP (status post transurethral resection of prostate) Z90.79 Surgical History: - - heart cath with stents, had prostate surgery, abd surgery at [facility] for and abd cyst-2007 Psychiatric History: No pertinent psych hx Lives: Spouse/ Significant Other Smoking Status: Never smoker Tobacco Use: Non-smoker Alcohol: None - *Family History Maternal Family History: Family History (Last Reviewed 12/28/18 @ 01:06 by Suraj Garg DO) Mother CAD (coronary artery disease) CVA (cerebral vascular accident) Myocardial infarction, Onset Age: 67 Hypertension Brother CAD (coronary artery disease) Hypertension Cancer Myocardial infarction, Onset Age: 73 Father Myocardial infarction, Onset Age: 77 Daughter Cancer Son Myocardial infarction, Onset Age: 46 History Items: No pertinent history Paternal Family History: Family History (Last Reviewed 12/28/18 @ 01:06 by Suraj Garg DO) Mother CAD (coronary artery disease) CVA (cerebral vascular accident) Myocardial infarction, Onset Age: 67 Hypertension Brother CAD (coronary artery disease) Hypertension Cancer Myocardial infarction, Onset Age: 73 Father Myocardial infarction, Onset Age: 77 Daughter Cancer Son Myocardial infarction, Onset Age: 46 History Items: No pertinent history Review of Systems Constitutional: Reports: Anorexia, Chills, Fever, Night Sweats, Malaise, Weakness, Fatigue Eyes: Denies: Blurred vision, Double vision HEENT: Reports: Ear Pain - Right. Denies: Head Aches, Sinus Congestion, Sinus Drainage Cardiovascular: Denies: Chest Pain, Palpitations Respiratory: Denies: Cough, Shortness of Breath Gastrointestinal: Denies: Abdominal Pain, Constipation, Diarrhea Genitourinary: Reports: Dysuria. Denies: Hematuria Musculoskeletal: Denies: Joint Pain, Joint Tenderness Skin: Denies: Rash, Wounds Neurological: Denies: Blurred vision, Double vision, Focal weakness, Numbness, Tingling Psychiatric: Denies: Anxiety, Depression Endocrine: Denies: Change in Body Habitus, Heat/ Cold Intolerance Hematologic/ Lymphatic: Denies: Easy Bruising, Easy Bleeding, Hx of blood clot Comment: A 10 point review of systems were negative except as mentioned in the history of present illness and the other review of systems. VTE Information - Inpt Only VTE Present on Admission: No VTE Mechan Device Prophylaxis: None VTE Pharm Prophylaxis ordered?: Yes Patient Problems: Active and Suspected Problems (Last Updated 10/20/18 @ 15:04 by Sloane Grubbs) Sepsis (Acute) Orchitis of right testicle (Acute) Elevated troponin (Acute) Otitis media (Acute) Objective: Patient had some erythema over the scrotum but no induration or warmth. Patient did have prominent swelling over the right testicles and epididymis and tender to palpation. - Physical Exam General: Alert, Cooperative, No apparent distress, Well developed, Well nourished HEENT: Atraumatic, Normocephalic, - - No scleral icterus. Patient did have some effusion, without erythema behind the right tympanic membrane. Patient did have some superficial abrasions with some dried blood on the ear canals bilaterally. Oral: Moist Mucosa, No Gingival or Mucosal Lesions/ Ulcerations Neck: No Nodes, Thyroid Normal Size and Texture Lungs: Diminished, Wheezes Cardiovascular: Regular rate, Regular Rhythm, Normal S1, Normal S2, No murmurs Abdomen: Bowel Sounds Present, Soft, Non Tender, Non-Distended, - - Negative Roque sign Extremities: No edema, No Calf Tenderness Skin: No rashes, No breakdown Musculoskeletal: No Tenderness to Palpation of Joints or Extremities, No Muscle Wasting Neurological: Neuro grossly intact, Sensory exam intact to light touch and pain, Coordination normal Psych/Mental Status: Normal Affect, Appropriate Vital Signs Temp Pulse Resp BP Pulse Ox 36.9 C 84 16 107/64 95 12/27/18 21:00 12/28/18 00:25 12/28/18 00:25 12/28/18 00:25 12/28/18 00:25 Oxygen Delivery Method Room Air Weight: 61.5 kg Body Mass Index (BMI) 24.0 Laboratory Tests Past 24 Hrs 12/27/18 12/27/18 12/27/18 21:22 22:06 22:06 WBC 15.6 H RBC 4.16 L Hgb 12.6 L Hct 38.5 L MCV 92.5 MCH 30.3 MCHC 32.7 RDW 13.9 RDW Differential 46.7 H Plt Count 164 MPV 11.1 Immature Gran % (Auto) 0.100 Neut % (Auto) 83.5 H Lymph % (Auto) 9.5 L [place] % (Auto) 6.8 Eos % (Auto) 0.0 Baso % (Auto) 0.1 Absolute Neuts (auto) 13.1 H Absolute Lymphs (auto) 1.49 Total Counted Not Reportable Sodium 135 L Potassium 3.5 Chloride 103 Carbon Dioxide 22.0 Anion Gap 10 BUN 17 Creatinine 0.97 Estim Creat Clear Calc 47.25 Est GFR (MDRD) Af Amer 95 Est GFR (MDRD) Non-Af 78 BUN/Creatinine Ratio 17.5 Glucose 126 H Lactic Acid Calcium 8.0 L Total Bilirubin 3.10 H AST 22 ALT 15 L Alkaline Phosphatase 64 Ammonia Troponin I 0.145 H Total Protein 7.6 Albumin 3.5 Globulin 4.1 Albumin/Globulin Ratio 0.9 Urine Color Yellow Urine Clarity Clear Urine pH 5.0 Ur Specific [place] 1.020 Urine Protein 30 H Urine Glucose (UA) 100 H Urine Ketones 150 H Urine Occult Blood 50 H Urine Nitrite Negative Urine Bilirubin Negative Urine Urobilinogen 1 H Ur Leukocyte Esterase 100 H Urine RBC 0 SEEN Urine WBC 5-10 SEEN Ur Squamous Epith Cells 0-5 SEEN Urine Bacteria 0 SEEN Urine Mucus 0 SEEN 12/27/18 12/27/18 22:06 22:06 WBC RBC Hgb Hct MCV MCH MCHC RDW RDW Differential Plt Count MPV Immature Gran % (Auto) Neut % (Auto) Lymph % (Auto) [place] % (Auto) Eos % (Auto) Baso % (Auto) Absolute Neuts (auto) Absolute Lymphs (auto) Total Counted Sodium Potassium Chloride Carbon Dioxide Anion Gap BUN Creatinine Estim Creat Clear Calc Est GFR (MDRD) Af Amer Est GFR (MDRD) Non-Af BUN/Creatinine Ratio Glucose Lactic Acid 1.7 Calcium Total Bilirubin AST ALT Alkaline Phosphatase Ammonia < 10.0 L Troponin I Total Protein Albumin Globulin Albumin/Globulin Ratio Urine Color Urine Clarity Urine pH Ur Specific [place] Urine Protein Urine Glucose (UA) Urine Ketones Urine Occult Blood Urine Nitrite Urine Bilirubin Urine Urobilinogen Ur Leukocyte Esterase Urine RBC Urine WBC Ur Squamous Epith Cells Urine Bacteria Urine Mucus Chest x-ray personally reviewed and showed no acute issues, no infiltrate, effusion, nor edema. EKG reviewed and him with no acute changes. Head CT showed chronic changes no acute process. Assessment/Plan All Active Problems (Last Updated 10/20/18 @ 15:04 by Sloane Grubbs) Sepsis (Acute) Orchitis of right testicle (Acute) Elevated troponin (Acute) Otitis media (Acute) SBO (small bowel obstruction) (Acute) 1. Sepsis: Present on admission. Etiology is likely due to orchitis but may also be complicated by a right otitis media. Supportive management 2. Right sided orchitis and possible epididymitis: Patient had been on ciprofloxacin as outpatient. We will discontinue that and put the patient on 2 g of Rocephin daily. Check an ultrasound of the scrotum. Elevate the scrotum. Depending on findings of the ultrasound may need urology consultation while inpatient. 3. Right-sided otitis media: Has some mild effusion right eardrum. No erythema nor any perforation at this time. Patient will be on Rocephin anyways for his orchitis. Patient did have some superficial abrasions in his ear canals to his Q-tip usage. Have advised against future usage of Q-tips. 4. Elevated troponins: Patient was not having chest pain, nor did his EKG reveal any acute changes. I feel that the elevated troponins are likely with the patient's underlying sepsis and a patient with known cardiomyopathy. 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 5. Heart failure with reduced ejection fraction: Patient had an echocardiogram back on October 28, 2018 that showed an ejection fraction of 30% with right ventricular systolic pressure of 32 mmHg. Patient appears to be compensated at this time. Continue with carvedilol and Entresto. 6. Elevated bilirubin: Patient has negative Roque sign. Unclear etiology but will monitor his bilirubin and check a right upper quadrant ultrasound. 7. DVT prophylaxis with low molecular weight heparin Case discussed with patient's and daughter at bedside. Code Visit Inpatient E&M: 59791 Init Hosp L3
--- NOTE | 2018-12-28 01:06 | US_ITS ---
STUDY: SCROTUM ULTRASOUND REASON FOR EXAM: Male, 83 years old. Right orchitis. TECHNIQUE: Ultrasound evaluation of the scrotum was performed with color Doppler and static maria-scale imaging. COMPARISON: None. FINDINGS: RIGHT TESTICLE INTRATESTICULAR: There is a normal size of the right testicle. The right testicle measures 4.8 x 3.8 x 3.6 cm. There is a homogenous echotexture. There is normal arterial and normal venous vascularity. There is no demonstrated right testicular mass or cyst. EXTRATESTICULAR: The epididymis is normal in size. The epididymis head measures 1.8 cm. There is increased (hyperemic) vascularity of the epididymis. There is no demonstrated epididymal cystic structure. There is a moderate size hydrocele. This hydrocele has loculations. There is no demonstrated varicocele. There is no demonstrated extratesticular mass or cyst. There is right skin thickening. LEFT TESTICLE INTRATESTICULAR: There is a normal size of the left testicle. The left testicle measures 3.9 x 3.7 x 2.3 cm. There is a homogenous echotexture. There is normal arterial and normal venous vascularity. There is no demonstrated left testicular mass or cyst. EXTRATESTICULAR: The epididymis is normal in size. The epididymis head measures 1.8 cm. There is increased (hyperemic) vascularity of the epididymis. There is no demonstrated epididymal cystic structure. There is a moderate size hydrocele. There is no demonstrated varicocele. There is no demonstrated extratesticular mass or cyst. US/Testicular with Arterial Flow IMPRESSION: Normal bilateral testicles. Right sided epididymoorchitis is not excluded. Bilateral hydroceles. Electronically Signed: Tien Luo MD at 16:19 EST , Service support ,
--- NOTE | 2018-12-28 01:06 | US_ITS ---
STUDY: ABDOMINAL ULTRASOUND - RIGHT UPPER QUADRANT REASON FOR VISIT: Male, 83 years old. Elevated liver function tests. Previous cholecystectomy. TECHNIQUE: Ultrasound evaluation of the right upper quadrant was performed with real-time and static maria-scale imaging. TECHNICAL QUALITY: Limited. Examination limited by bowel gas. COMPARISON: CT scan 05/16/2016. FINDINGS: Liver: The liver measures 15.7 cm. There is normal echogenicity of the liver. The bile ducts are within normal limits. There is hepatic color flow. The direction of portal flow is hepatopetal. There is no demonstrated mass lesion. Gallbladder: The patient is status post cholecystectomy. Common Bile Duct (C.B.D.): The common bile duct measures 8 mm. Pancreas: There is nonvisualization of the pancreas. Right Kidney: Normal size of the right kidney. The right kidney measures 11.2 cm. Normal renal cortex. The right cortex measures 1.4 cm. There is no demonstrated renal mass or cyst. There is no right hydronephrosis. US/Abdomen Limited IMPRESSION: No definite acute abnormality. Previous cholecystectomy. Electronically Signed: Tien Luo MD at 15:57 EST , Service support ,
[2018-12-28] MEDS: 0.9% Normal Saline 1,000 ML 100 ML IV (02:52)
[2018-12-28] MEDS: Acetaminophen 500 MG Tablet PO (03:00)
[2018-12-28] MEDS: DiphenhydrAMINE 25 MG Capsule PO (03:00)
[2018-12-28 04:14] LABS: Absolute Lymphocyte Count 0.85 X10^3/ul (0.83-4.51); Absolute Neutrophil Count 14.2 X10^3/uL (2.0-7.7); Basophil# 0.02 X10^3/uL; Basophil% 0.1 % (0-1); Differential Indicated SCAN CRITERIA MET; Eosinophil# 0.01 X10^3/uL; Eosinophils% 0.1 % (0-5); Hematocrit 34.5 % (40-54); Hemoglobin 11.4 g/dl (13.0-16.5); Lymphocyte # 0.85 X10^3/ul (4.0); Lymphocyte % 4.9 % (19-41); Mean Corpuscular Hgb 30.7 pg (27.0-32.0); Mean Platelet Vol. 11.2 fl (6.2-12.0); Monocyte# 2.09 X10^3/uL; Monocyte% 12.1 % (0-10); Neutrophil # 14.22 X10^3/uL (2.7-7.7); Neutrophil % 82.5 % (47-70); POSITIVE COUNT NO; POSITIVE DIFFERENTIAL YES; POSITIVE MORPHOLOGY NO; Platelet Count 146 K/mm3 (150-450); RBC Distribution Width CV 13.9 % (11.6-14.6); RBC Distribution Width SD 45.8 fl (35.1-43.9); Red Blood Count 3.71 M/mm3 (4.6-6.2); White Blood Count 17.2 K/mm3 (4.4-11.0)
[2018-12-28 04:20] LABS: ALB/GLOB Ratio 0.8 RATIO (0.9-2.4); AST(SGOT) 21 U/L (15-37); Alanine Aminotransfer ALT/SGPT 13 U/L (16-61); Albumin, Serum 3.1 g/dL (3.2-5.0); Alkaline Phosphatase 55 U/L (45-117); Anion Gap 13 (5-15); BUN 20 mg/dL (7-18); BUN/Creat Ratio 19.2 RATIO (10-20); Calcium,Total 7.9 mg/dL (8.5-10.1); Chloride 104 mmol/L (98-107); Creatinine, Serum 1.04 mg/dL (0.70-1.30); EST Glomerular Filtration Rate 73 mL/min (>60); Est Glom Filt Rate - Afr Amer 88 mL/min (>60); Estimated Creatinine Clearance 44.07 ml/min; Globulin 3.7 g/dL (2.2-4.2); Glucose 124 mg/dL (74-106); Potassium 3.7 mmol/L (3.5-5.1); Protein, Total 6.8 g/dL (6.4-8.2); Sodium Level 140 mmol/L (136-145)
--- NOTE | 2018-12-28 07:24 | ECHOCS_ITS ---
Reason For Study: Pre-op clearance. CAD Procedure This was a 2D Doppler, Color Flow transthoracic echocardiogram. Exam performed portable in patient room. Left Ventricle Normal size and thickness. The estimated ejection fraction is 25-30 %. Stage 1 diastolic dysfunction. There are regional wall motion abnormalities as specified. Right Ventricle Normal size and thickness. ICD or pacer leads identified within the right ventricle. Normal systolic function. Atria Normal left atrium. Normal right atrium. Normal atrial septum. Mitral Valve The mitral valve is structurally normal. No prolapse or stenosis seen. Tricuspid Valve Normal tricuspid valve. Mild (1+) tricuspid valve insufficiency. Right ventricular systolic pressure estimated to be 35 mmHg. Aortic Valve Trisinus/trileaflet aortic valve. Mild diffuse aortic valve thickening. Mild focal aortic valve thickening. Mild (1+) aortic valve insufficiency. Pulmonic Valve Normal pulmonic valve. Trivial pulmonic valve insufficiency. Great Vessels Normal aortic root. Normal arch. Normal inferior vena cava. Inferior vena cava collapse with sniff. Pericardium/Pleural No pericardial effusion. Medication Diluted definity 2ml given slow IV push to enhance endocardial definition. MMode/2D Measurements & Calculations LVIDd: 4.6 cm IVSd: 1.0 cm Ao root diam: 3.8 cm LVIDs: 3.6 cm LVPWd: 1.2 cm LA dimension: 3.8 cm RVDd: 3.0 cm FS: 23.3 % LAV(MOD-bp): 62.1 ml LA A4 area: 20.6 cm2 RA A4 area: 17.1 cm2 LAV(MOD-bp) Indexed: 39.1 ml/m2 LAV(MOD-sp2): 65.7 ml LAV(MOD-sp4): 58.7 ml Doppler Measurements & Calculations MV E max jakob: 69.5 cm/sec Lat Peak E' Jakob: 7.5 cm/sec Med Peak E' Jakob: 4.9 cm/sec MV A max jakob: 90.7 cm/sec E/E' lat: 9.3 E/E' med: 14.1 MV E/A: 0.77 Ao V2 max: 157.8 cm/sec AI max jakob: 328.4 cm/sec LV V1 max: 97.7 cm/sec Ao max P.0 mmHg AI max P.2 mmHg LV V1 max P.8 mmHg AI dec slope: 224.0 cm/sec2 AI P1/2t: 429.5 msec PA V2 max: 63.7 cm/sec TR max jakob: 265.0 cm/sec TR max P.1 mmHg Interpretation Summary The estimated ejection fraction is 25-30 %. Stage 1 diastolic dysfunction. There are regional wall motion abnormalities as specified. Mild (1+) tricuspid valve insufficiency. Right ventricular systolic pressure estimated to be 35 mmHg. Mild (1+) aortic valve insufficiency. No LV apical thrombus noted. Compared to echo report dated 10/28/2018, no appreciable changes noted. The study was technically difficult. Contrast injection was performed. Ordering Physician: Agustin Muniz Referring Physician: Shailesh Mancini Performed By: Sheila Villatoro RDCS
--- NOTE | 2018-12-28 08:30 | PCM.CONS.C ---
Problem List (1) Elevated troponin Status: Acute (2) Implantable cardioverter-defibrillator (ICD) at end of battery life Status: Chronic (3) Essential hypertension Status: Chronic (4) History of placement of internal cardiac defibrillator Status: Chronic Comment: ICD Implant 04/11/2009, ICD Gen Change 04/16/2016 (5) Old myocardial infarction Status: Chronic (6) Cardiomyopathy, ischemic Status: Chronic (7) HLD (hyperlipidemia) Status: Chronic (8) Hyperlipidemia Status: Chronic Qualifiers: Hyperlipidemia type: pure hypercholesterolemia Qualified Code(s): E78.00 - Pure hypercholesterolemia, unspecified; E78.00 - Pure hypercholesterolemia, unspecified; E78.00 - Pure hypercholesterolemia, unspecified; E78.0 - Pure hypercholesterolemia Reason for Consult Date of Consultation: 12/28/18 Reason for Consultation: Abnormal troponin, ischemic cardiomyopathy, hypertension, hyperlipidemia, dyspnea on exertion, decreased energy level History of Present Illness: The patient is a 83 year old M, patient of Dr. Abbott's with a history of hypertension, hypercholesterolemia, coronary disease status post ST elevation myocardial infarction of the anterior wall sometime around 2007. Patient was emergently transferred from [facility] to [facility] but during transport the squad broke down requiring a second squad to take him to the Graphic Design Assistant at [facility]. Patient underwent emergent left heart catheterization and apparent stenting of his LAD. Despite this, the patient suffered anterior wall ischemic damage with resulting LVEF around 30%. In 2009 the patient had repeat catheterization at [facility] where his stent was found to have minimal in-stent restenosis and apparently nitroglycerin responsive lesion in the mid to distal LAD, 50-70% stenosis in the mid left circumflex between OM1 and OM 2, and nonobstructive disease of his RCA. His LV function was found to be significant enough to receive an AICD which took place in 2015. Over the last year the patient has had decreased exercise capacity, decreased energy level, and dyspnea on exertion. The patient was reevaluated by Dr. Abbott on October 2018 with a repeat stress test which showed anterior infarct but no overt ischemia. Repeat echocardiogram at that time also showed severe LV dysfunction with an EF of 30%, and an RVSP of 32 mmHg. Despite medical management the patient has continually decreased in his energy level over the last several months. On Wednesday of this past week he developed significant dysuria and was started on ciprofloxacin p.o. for what appeared to be a urinary tract infection. This did not improve and gave way to malaise, nausea, vomiting, and right ear pain as well as right testicular pain. Patient became profoundly weak and presented to [facility] ER where he was found to have urinary tract infection, and possible orchitis. He was started on IV ceftriaxone and he patient feels better although not back to baseline. On further history the patient complains of progressively worsening dyspnea on exertion, decreased energy level, but no overt chest pain or anginal symptoms. His troponin was found to be abnormal and peaked so far at 0.24. EKG shows normal sinus rhythm with intact R waves anteriorly, no acute changes. Repeat echocardiogram was performed at bedside and preliminary report showed severe LV dysfunction with an EF of 30%, final result pending. Patient reports that he has been compliant with his medications including his aspirin and Plavix. [] Past Medical History Allergies/Adverse Reactions: Allergies morphine Allergy (Intermediate, Verified 12/27/18 21:03) Other RASH zolpidem tartrate [From Ambien] Adverse Reaction (Intermediate, Verified 12/27/18 21:03) Other CONFUSION Home Medications: Ambulatory Orders Medication Instructions Recorded Aspirin [Aspirin, Baby] 81 mg PO DAILY 03/05/16 Nitroglycerin [Nitrostat] 0.4 mg SUBLINGUAL Q5M PRN 04/15/16 diphenhydramine 25 1 tab PO QHS PRN tab 10/22/17 mg-acetaminophen 500 mg tablet carvedilol 12.5 mg tablet 12.5 mg PO BID #180 tab 10/03/18 clopidogrel 75 mg tablet 75 mg PO DAILY #90 tab 10/03/18 isosorbide mononitrate ER 30 mg 30 mg PO QAM #90 tab 10/03/18 tablet,extended release 24 hr sacubitril 24 mg-valsartan 26 mg 1 tab PO BID #60 tab 11/02/18 tablet simvastatin 20 mg tablet 20 mg PO QHS #90 tab 12/05/18 Ciprofloxacin [Cipro] 500 mg PO BID 12/28/18 Meclizine HCl 12.5 mg PO Q4H PRN PRN 12/28/18 Past Medical History (Chronic Problems): Chronic Problems (Last Reviewed 12/28/18 @ 01:05 by Suraj Garg DO) 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) Essential hypertension (Chronic) History of placement of internal cardiac defibrillator (Chronic) ICD Implant 04/11/2009, ICD Gen Change 04/16/2016 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 (Chronic) Cardiomyopathy, ischemic (Chronic) Chronic systolic congestive heart failure (Chronic) HLD (hyperlipidemia) (Chronic) Abnormal result of cardiovascular function study, unspecified (Chronic) High risk medication use (Chronic) Iron deficiency anemia (Chronic) Chest pain, precordial (Chronic) Atherosclerotic heart disease of [place] coronary artery without angina pectoris (Chronic) PTCA/BMS to prox LAD 08/02/2008; Dyspnea (Chronic) Fatigue (Chronic) Hypokalemia (Chronic) Hyperlipidemia (Chronic) Benign prostatic hypertrophy (Chronic) Surgical History: - - heart cath with stents, had prostate surgery, abd surgery at for and abd cyst-2007 Psychiatric History: No pertinent psych hx - *Family History Maternal Family History: Family History (Last Reviewed 12/28/18 @ 01:06 by Suraj Garg DO) Mother CAD (coronary artery disease) CVA (cerebral vascular accident) Myocardial infarction, Onset Age: 67 Hypertension Brother CAD (coronary artery disease) Hypertension Cancer Myocardial infarction, Onset Age: 73 Father Myocardial infarction, Onset Age: 77 Daughter Cancer Son Myocardial infarction, Onset Age: 46 History Items: No pertinent history Paternal Family History: Family History (Last Reviewed 12/28/18 @ 01:06 by Suraj Garg DO) Mother CAD (coronary artery disease) CVA (cerebral vascular accident) Myocardial infarction, Onset Age: 67 Hypertension Brother CAD (coronary artery disease) Hypertension Cancer Myocardial infarction, Onset Age: 73 Father Myocardial infarction, Onset Age: 77 Daughter Cancer Son Myocardial infarction, Onset Age: 46 History Items: No pertinent history Lives: Spouse/ Significant Other Smoking Status: Never smoker Tobacco Use: Non-smoker Alcohol: None Review of Systems - Review of Systems General: Denies: Fever, Night Sweats, Fatigue Cardiovascular: Reports: Shortness of Breath with Exertion. Denies: Chest Discomfort, Shortness of Breath, Orthopnea, PND, Peripheral Edema, Palpitations, Lightheadedness, Dizziness, Near Syncope, Syncope Respiratory: Denies: Cough, Sputum Production, Hemoptysis Gastrointestinal: Denies: Hematemesis, Hematochezia, Melena Genitourinary: Reports: Dysuria, Urgency. Denies: Hematuria Skin: Denies: Rash Subjectve: Patient laying in bed, no acute distress. Objective: Vital Signs Temp Pulse Resp BP Pulse Ox 98.0 F 59 L 18 95/46 L 98 12/28/18 05:53 12/28/18 07:48 12/28/18 05:53 12/28/18 05:53 12/28/18 05:53 Oxygen Delivery Method Room Air Weight: 126 lb 5.198 oz Body Mass Index (BMI) 22.4 Intake and Output for Last 24 Hours 12/26/18 12/27/18 12/28/18 23:59 23:59 23:59 Intake Total 307 / 307 Balance 307 / 307 General: Awake, Alert, Oriented x 3 HEENT: PERRL, EOMI, Sclera Non Icteric Neck: Supple, Good ROM, No Lymph Node Enlargement Lungs: Clear to auscultation Cardiovascular: Regular Rhythm, Normal S2, No Rubs, No Gallops Murmur Murmur: Grade 2/6, Holosystolic Vascular: No Carotid Bruits, Normal Femoral Pulses, Normal Radial Pulses, Normal Dorsalis Pedal Pulse, Normal Posterior Tibial Pulses Abdomen: Bowel Sounds Present, Soft, Non Tender, No HSM, No Organomegaly Extremities: No Cyanosis, No Clubbing, No edema Neurological: No Focal Motor or Sensory Deficit 12/27/18 21:22: Urine Color Yellow, Urine Clarity Clear, Urine pH 5.0, Ur Specific [place] 1.020, Urine Protein 30 H, Urine Glucose (UA) 100 H, Urine Ketones 150 H, Urine Occult Blood 50 H, Urine Nitrite Negative, Urine Bilirubin Negative, Urine Urobilinogen 1 H, Ur Leukocyte Esterase 100 H, Urine RBC 0 SEEN, Urine WBC 5-10 SEEN 12/27/18 22:06: WBC 15.6 H, RBC 4.16 L, Hgb 12.6 L, Hct 38.5 L, MCV 92.5, MCH 30.3, MCHC 32.7, RDW 13.9, RDW Differential 46.7 H, Plt Count 164, MPV 11.1, Immature Gran % (Auto) 0.100, Neut % (Auto) 83.5 H, Lymph % (Auto) 9.5 L, [place] % (Auto) 6.8, Eos % (Auto) 0.0, Baso % (Auto) 0.1, Absolute Neuts (auto) 13.1 H, Total Counted Not Reportable 12/27/18 22:06: Sodium 135 L, Potassium 3.5, Chloride 103, Carbon Dioxide 22.0, Anion Gap 10, BUN 17, Creatinine 0.97, Est GFR (MDRD) Af Amer 95, Est GFR (MDRD) Non-Af 78, BUN/Creatinine Ratio 17.5, Glucose 126 H, Calcium 8.0 L, Total Bilirubin 3.10 H, Troponin I 0.145 H 12/27/18 22:06: Lactic Acid 1.7 12/28/18 01:54: Troponin I 0.240 H 12/28/18 03:54: WBC 17.2 H, RBC 3.71 L, Hgb 11.4 L, Hct 34.5 L, MCV 93.0, MCH 30.7, MCHC 33.0, RDW 13.9, RDW Differential 45.8 H, Plt Count 146 L, MPV 11.2, Immature Gran % (Auto) 0.300, Neut % (Auto) 82.5 H, Lymph % (Auto) 4.9 L, [place] % (Auto) 12.1 H, Eos % (Auto) 0.1, Baso % (Auto) 0.1, Absolute Neuts (auto) 14.2 H, Total Counted Not Reportable 12/28/18 03:54: Sodium 140, Potassium 3.7, Chloride 104, Carbon Dioxide 23.0, Anion Gap 13, BUN 20 H, Creatinine 1.04, Est GFR (MDRD) Af Amer 88, Est GFR (MDRD) Non-Af 73, BUN/Creatinine Ratio 19.2, Glucose 124 H, Calcium 7.9 L, Total Bilirubin 2.30 H, Troponin I 0.287 H Rhythm: Normal sinus rhythm, no ventricular ectopy. EKG: As above ECHO: Pending Stress Test: Cardiac Cath: Pending PCI: CT Surgery: Holter monitor: EPS: PPM: CXR: Chest CT Scan: Assessment/Plan 1. Ischemic cardiomyopathy: Patient has known documented ischemic cardiomyopathy with severe LV dysfunction despite maximal medical therapy and coronary reperfusion after his STEMI in 2007. Repeat catheterization at [facility] in 2009 demonstrated widely patent proximal LAD stent, possible significant mid LAD stenosis which apparently improved with nitroglycerin, and a 50-75% mid left circumflex stenosis. Despite the patient's medical management and compliance, he has had progressively worsening exercise capacity, dyspnea on exertion and decreased energy level over the last year. Patient underwent a stress test in October 2018 which showed no overt ischemia and old anterior infarct. Given the patient's known coronary artery disease, decreased energy level, abnormal troponins with this infectious process, I believe it is reasonable to relook at his coronary arteries to determine if he has any possible reversible causes for his symptoms and abnormal troponins. Patient is maintained on baby aspirin and Plavix, and his right testicular area does not appear to be too inflamed to the point where he would require surgical intervention. He has no hematoma. I recommended the patient undergo repeat catheterization with Dr. Abbott this morning. Depending upon the outcome will determine whether he requires percutaneous intervention or ongoing medical therapy. We will hold his Lovenox this morning. Patient has had no defibrillator discharges or warnings. Would not recommend repeat interrogation at this time. 2. Hyperlipidemia: Continue statin based medications. We will repeat his lipid profile once his infectious process has been completed. 3. UTI/orchitis: The patient has been treated with IV antibiotic therapy and appears to be responding well. 4. Thank you very much for the opportunity to participate in the cardiac care of your patient. Consultation time took place between 8 AM and 8:41 AM. Code Visit Inpatient E&M: 42363 Init Hosp L2
--- NOTE | 2018-12-28 08:35 | CON.PCM_ITS ---
Problem List (1) Elevated troponin Status: Acute (2) Implantable cardioverter-defibrillator (ICD) at end of battery life Status: Chronic (3) Essential hypertension Status: Chronic (4) History of placement of internal cardiac defibrillator Status: Chronic Comment: ICD Implant 04/11/2009, ICD Gen Change 04/16/2016 (5) Old myocardial infarction Status: Chronic (6) Cardiomyopathy, ischemic Status: Chronic (7) HLD (hyperlipidemia) Status: Chronic (8) Hyperlipidemia Status: Chronic Qualifiers: Hyperlipidemia type: pure hypercholesterolemia Qualified Code(s): E78.00 - Pure hypercholesterolemia, unspecified; E78.00 - Pure hypercholesterolemia, unspecified; E78.00 - Pure hypercholesterolemia, unspecified; E78.0 - Pure hypercholesterolemia Reason for Consult Date of Consultation: 12/28/18 Reason for Consultation: Abnormal troponin, ischemic cardiomyopathy, hypertension, hyperlipidemia, dyspnea on exertion, decreased energy level History of Present Illness: The patient is a 83 year old M, patient of Dr. Abbott's with a history of hypertension, hypercholesterolemia, coronary disease status post ST elevation myocardial infarction of the anterior wall sometime around 2007. Patient was emergently transferred from [facility] to [facility] but during transport the squad broke down requiring a second squad to take him to the Copy Holder at [facility]. Patient underwent emergent left heart catheterization and apparent stenting of his LAD. Despite this, the patient suffered anterior wall ischemic damage with resulting LVEF around 30%. In 2009 the patient had repeat catheterization at [facility] where his stent was found to have minimal in-stent restenosis and apparently nitroglycerin responsive lesion in the mid to distal LAD, 50-70% stenosis in the mid left circumflex between OM1 and OM 2, and nonobstructive disease of his RCA. His LV function was found to be significant enough to receive an AICD which took place in 2015. Over the last year the patient has had decreased exercise capacity, decreased energy level, and dyspnea on exertion. The patient was reevaluated by Dr. Abbott on October 2018 with a repeat stress test which showed anterior infarct but no overt ischemia. Repeat echocardiogram at that time also showed severe LV dysfunction with an EF of 30%, and an RVSP of 32 mmHg. Despite medical management the patient has continually decreased in his energy level over the last several months. On Wednesday of this past week he developed significant dysuria and was started on ciprofloxacin p.o. for what appeared to be a urinary tract infection. This did not improve and gave way to malaise, nausea, vomiting, and right ear pain as well as right testicular pain. Patient became profoundly weak and presented to [facility] ER where he was found to have urinary tract infection, and possible orchitis. He was started on IV ceftriaxone and he patient feels better although not back to baseline. On further history the patient complains of progressively worsening dyspnea on exertion, decreased energy level, but no overt chest pain or anginal symptoms. His troponin was found to be abnormal and peaked so far at 0.24. EKG shows normal sinus rhythm with intact R waves anteriorly, no acute changes. Repeat echocardiogram was performed at bedside and preliminary report showed severe LV dysfunction with an EF of 30%, final result pending. Patient reports that he has been compliant with his medications including his aspirin and Plavix. [] Past Medical History Allergies/Adverse Reactions: Allergies morphine Allergy (Intermediate, Verified 12/27/18 21:03) Other RASH zolpidem tartrate [From Ambien] Adverse Reaction (Intermediate, Verified 12/27/18 21:03) Other CONFUSION Home Medications: Ambulatory Orders Medication Instructions Recorded Aspirin [Aspirin, Baby] 81 mg PO DAILY 03/05/16 Nitroglycerin [Nitrostat] 0.4 mg SUBLINGUAL Q5M PRN 04/15/16 diphenhydramine 25 1 tab PO QHS PRN tab 10/22/17 mg-acetaminophen 500 mg tablet carvedilol 12.5 mg tablet 12.5 mg PO BID #180 tab 10/03/18 clopidogrel 75 mg tablet 75 mg PO DAILY #90 tab 10/03/18 isosorbide mononitrate ER 30 mg 30 mg PO QAM #90 tab 10/03/18 tablet,extended release 24 hr sacubitril 24 mg-valsartan 26 mg 1 tab PO BID #60 tab 11/02/18 tablet simvastatin 20 mg tablet 20 mg PO QHS #90 tab 12/05/18 Ciprofloxacin [Cipro] 500 mg PO BID 12/28/18 Meclizine HCl 12.5 mg PO Q4H PRN PRN 12/28/18 Past Medical History (Chronic Problems): Chronic Problems (Last Reviewed 12/28/18 @ 01:05 by Suraj Garg DO) 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) Essential hypertension (Chronic) History of placement of internal cardiac defibrillator (Chronic) ICD Implant 04/11/2009, ICD Gen Change 04/16/2016 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 (Chronic) Cardiomyopathy, ischemic (Chronic) Chronic systolic congestive heart failure (Chronic) HLD (hyperlipidemia) (Chronic) Abnormal result of cardiovascular function study, unspecified (Chronic) High risk medication use (Chronic) Iron deficiency anemia (Chronic) Chest pain, precordial (Chronic) Atherosclerotic heart disease of [place] coronary artery without angina pectoris (Chronic) PTCA/BMS to prox LAD 08/02/2008; Dyspnea (Chronic) Fatigue (Chronic) Hypokalemia (Chronic) Hyperlipidemia (Chronic) Benign prostatic hypertrophy (Chronic) Surgical History: - - heart cath with stents, had prostate surgery, abd surgery at [facility] for and abd cyst-2007 Psychiatric History: No pertinent psych hx - *Family History Maternal Family History: Family History (Last Reviewed 12/28/18 @ 01:06 by Suraj Garg DO) Mother CAD (coronary artery disease) CVA (cerebral vascular accident) Myocardial infarction, Onset Age: 67 Hypertension Brother CAD (coronary artery disease) Hypertension Cancer Myocardial infarction, Onset Age: 73 Father Myocardial infarction, Onset Age: 77 Daughter Cancer Son Myocardial infarction, Onset Age: 46 History Items: No pertinent history Paternal Family History: Family History (Last Reviewed 12/28/18 @ 01:06 by Suraj Garg DO) Mother CAD (coronary artery disease) CVA (cerebral vascular accident) Myocardial infarction, Onset Age: 67 Hypertension Brother CAD (coronary artery disease) Hypertension Cancer Myocardial infarction, Onset Age: 73 Father Myocardial infarction, Onset Age: 77 Daughter Cancer Son Myocardial infarction, Onset Age: 46 History Items: No pertinent history Lives: Spouse/ Significant Other Smoking Status: Never smoker Tobacco Use: Non-smoker Alcohol: None Review of Systems - Review of Systems General: Denies: Fever, Night Sweats, Fatigue Cardiovascular: Reports: Shortness of Breath with Exertion. Denies: Chest Discomfort, Shortness of Breath, Orthopnea, PND, Peripheral Edema, Palpitations, Lightheadedness, Dizziness, Near Syncope, Syncope Respiratory: Denies: Cough, Sputum Production, Hemoptysis Gastrointestinal: Denies: Hematemesis, Hematochezia, Melena Genitourinary: Reports: Dysuria, Urgency. Denies: Hematuria Skin: Denies: Rash Subjectve: Patient laying in bed, no acute distress. Objective: Vital Signs Temp Pulse Resp BP Pulse Ox 98.0 F 59 L 18 95/46 L 98 12/28/18 05:53 12/28/18 07:48 12/28/18 05:53 12/28/18 05:53 12/28/18 05:53 Oxygen Delivery Method Room Air Weight: 126 lb 5.198 oz Body Mass Index (BMI) 22.4 Intake and Output for Last 24 Hours 12/26/18 12/27/18 12/28/18 23:59 23:59 23:59 Intake Total 307 / 307 Balance 307 / 307 General: Awake, Alert, Oriented x 3 HEENT: PERRL, EOMI, Sclera Non Icteric Neck: Supple, Good ROM, No Lymph Node Enlargement Lungs: Clear to auscultation Cardiovascular: Regular Rhythm, Normal S2, No Rubs, No Gallops Murmur Murmur: Grade 2/6, Holosystolic Vascular: No Carotid Bruits, Normal Femoral Pulses, Normal Radial Pulses, Normal Dorsalis Pedal Pulse, Normal Posterior Tibial Pulses Abdomen: Bowel Sounds Present, Soft, Non Tender, No HSM, No Organomegaly Extremities: No Cyanosis, No Clubbing, No edema Neurological: No Focal Motor or Sensory Deficit 12/27/18 21:22: Urine Color Yellow, Urine Clarity Clear, Urine pH 5.0, Ur S pecific [place] 1.020, Urine Protein 30 H, Urine Glucose (UA) 100 H, Urine Ketones 150 H, Urine Occult Blood 50 H, Urine Nitrite Negative, Urine Bilirubin Negative, Urine Urobilinogen 1 H, Ur Leukocyte Esterase 100 H, Urine RBC 0 SEEN, Urine WBC 5-10 SEEN 12/27/18 22:06: WBC 15.6 H, RBC 4.16 L, Hgb 12.6 L, Hct 38.5 L, MCV 92.5, MCH 30.3, MCHC 32.7, RDW 13.9, RDW Differential 46.7 H, Plt Count 164, MPV 11.1, Immature Gran % (Auto) 0.100, Neut % (Auto) 83.5 H, Lymph % (Auto) 9.5 L, [place] % (Auto) 6.8, Eos % (Auto) 0.0, Baso % (Auto) 0.1, Absolute Neuts (auto) 13.1 H, Total Counted Not Reportable 12/27/18 22:06: Sodium 135 L, Potassium 3.5, Chloride 103, Carbon Dioxide 22.0, Anion Gap 10, BUN 17, Creatinine 0.97, Est GFR (MDRD) Af Amer 95, Est GFR (MDRD) Non-Af 78, BUN/Creatinine Ratio 17.5, Glucose 126 H, Calcium 8.0 L, Total Bilirubin 3.10 H, Troponin I 0.145 H 12/27/18 22:06: Lactic Acid 1.7 12/28/18 01:54: Troponin I 0.240 H 12/28/18 03:54: WBC 17.2 H, RBC 3.71 L, Hgb 11.4 L, Hct 34.5 L, MCV 93.0, MCH 30.7, MCHC 33.0, RDW 13.9, RDW Differential 45.8 H, Plt Count 146 L, MPV 11.2, Immature Gran % (Auto) 0.300, Neut % (Auto) 82.5 H, Lymph % (Auto) 4.9 L, [place] % (Auto) 12.1 H, Eos % (Auto) 0.1, Baso % (Auto) 0.1, Absolute Neuts (auto) 14.2 H, Total Counted Not Reportable 12/28/18 03:54: Sodium 140, Potassium 3.7, Chloride 104, Carbon Dioxide 23.0, Anion Gap 13, BUN 20 H, Creatinine 1.04, Est GFR (MDRD) Af Amer 88, Est GFR (MDRD) Non-Af 73, BUN/Creatinine Ratio 19.2, Glucose 124 H, Calcium 7.9 L, Total Bilirubin 2.30 H, Troponin I 0.287 H Rhythm: Normal sinus rhythm, no ventricular ectopy. EKG: As above ECHO: Pending Stress Test: Cardiac Cath: Pending PCI: CT Surgery: Holter monitor: EPS: PPM: CXR: Chest CT Scan: Assessment/Plan 1. Ischemic cardiomyopathy: Patient has known documented ischemic cardiomyopathy with severe LV dysfunction despite maximal medical therapy and coronary reperfusion after his STEMI in 2007. Repeat catheterization at [facility] in 2009 demonstrated widely patent proximal LAD stent, possible significant mid LAD stenosis which apparently improved with nitroglycerin, and a 50-75% mid left circumflex stenosis. Despite the patient's medical management and compliance, he has had progressiv marquise worsening exercise capacity, dyspnea on exertion and decreased energy level over the last year. Patient underwent a stress test in October 2018 which showed no overt ischemia and old anterior infarct. Given the patient's known coronary artery disease, decreased energy level, abnormal troponins with this infectious process, I believe it is reasonable to relook at his coronary arteries to determine if he has any possible reversible causes for his symptoms and abnormal troponins. Patient is maintained on baby aspirin and Plavix, and his right testicular area does not appear to be too infl angela to the point where he would require surgical intervention. He has no hematoma. I recommended the patient undergo repeat catheterization with Dr. Abbott this morning. Depending upon the outcome will determine whether he requires percutaneous intervention or ongoing medical therapy. We will hold his Lovenox this morning. Patient has had no defibrillator discharges or warnings. Would not recommend repeat interrogation at this time. 2. Hyperlipidemia: Continue statin based medications. We will repeat his lipid profile once his infectious process has been completed. 3. UTI/orchitis: The patient has been treated with IV antibiotic therapy and appears to be responding well. 4. Thank you very much for the opportunity to participate in the cardiac care of your patient. Consultation time took place between 8 AM and 8:41 AM. Code Visit Inpatient E&M: 83112 Init Hosp L2
[2018-12-28] MEDS: Isosorbide Mononitrate 30 MG Tablet PO (08:42)
[2018-12-28] MEDS: Carvedilol 12.5 MG Tablet PO ×2 (08:42→22:15)
[2018-12-28] MEDS: Clopidogrel Bisulfate 75 MG Tablet PO (08:42)
[2018-12-28] MEDS: Aspirin 81 MG TAB.CHEW PO (08:42)
[2018-12-28] MEDS: DiphenhydrAMINE 25 MG Capsule 50 MG PO (08:52)
--- NOTE | 2018-12-28 09:05 | CASEMGMT ---
According to the [facility] website, the following are in-network tertiary facilities: [facility], [place], [facility], and [facility]. Laron LO CM
--- NOTE | 2018-12-28 10:45 | CL.I_ITS ---
Patient Name: JORGE GUZMÁN Study Date: 12/28/2018 Performing: Agustin Muniz MD Ht: 62.99 inches 160 cm : 1935 Wt: 125.66 lbs 57 kg Age: 83 Gender: male BSA: 1.59 PROCEDURE(S) PERFORMED [id number], CORONARY OR GRAFT, INITIAL VESSEL [id number] W OR WO PTCA, SINGLE CORONARY ARTERY CLINICAL PROFILE AND CO-MORBIDITIES Indications: ACS <= 24 hrs, Suspected CAD, LV Dysfunction, Cardiomyopathy, ACS <= 24 hrs, Stable Known CAD, Cardiomyopathy, LV Dysfunction Heart Failure: NYHA Class: 3, Newly Diagnosed: No, Heart Failure Type: Systolic, NYHA Class: 2, N ewly Diagnosed: No, Heart Failure Type: Systolic Stress/Imaging Date: 10/18/2018 Stress Test with SPECT MPI: NegativeStress/Image Study Performed: No Angina Classification Anginal Classification w/in 2 Weeks: CCS III CAD Presentations: Other: shortness of breath / fatigue Comorbidities/Risk Factors: Hypertension Dyslipidemia Prior CHF Prior PCI CONCLUSIONS Successful PTCA/LAVINIA of proximal LCX with a 3.0 x 12 Promus Synergy, post dilated with a 3.25, 3.5 and 4.0 x 8 NC balloon. 4.0 balloon used to dilate proximal stent at 8 julio cesar (3.90); 85%-->0%, no dissect ion. FFR of RCA negative. RECOMMENDATIONS Highly recommend quitting all tobacco products Follow up with primary lining cutter Risk factor modification ASA Indefinitley Plavix for at least 12 months Routine post interventional care Refer for Outpatient Cardiac Rehab Manual sheath removal per protocol Follow up with Dr. Abbott Manual sheath removal due to shallow access and orchitis. DESCRIPTION OF PROCEDURE The patient arrived to the procedure lab. The risks and benefits of the procedure as well as a full d escription of our services here and current unavailability of surgical backup were fully explained to the patient and/or their significant other prior to the catheterization. The Timeout was completed, verifying the correct patient and procedure. The patient's procedural site was prepped and draped in the usual fashion. Local anesthetic was given subcutaneously to right groin region with Lidocaine 2% Using a modified Seldinger technique,arterial access was obtained via the right femoral artery, a 4Fr sheath was inserted Left Coronary Artery selective angiography was performed in multiple views using a 4 Fr. JL5 catheter. Right Coronary Artery selective angiography was then performed in multiple vie ws using a 4 Fr. 3DRC catheter. Left Ventriculography was performed in PAEZ projection using a 4 Fr. P igtail catheter.The images were reviewed and options discussed. A decision was then made to proceed with an Intervention, IVUS or other adjunct procedure. Arterial sheath was exchanged for a 6 Fr Sheath. EBU 3.5 Guide catheter was inserted and engaged into the LCA. BMW Guide wire was advanced to the Circumflex. Angiogram performed pre balloon dilatati on. Emerge 2.00x8 Balloon catheter was inserted. PTCA balloon inflated at 8 atms for 11 secs. Angiogr am performed post balloon dilatation. Synergy 3.00x12 Drug Eluting stent was inserted. Angiogram perf ormed post stent deployment. NC Emerge 3.25x8 Balloon catheter was inserted. PTCA balloon inflated at 14 atms for 14 secs. PTCA balloon inflated at 14 atms for 11 secs. Angiogram performed post balloon dilatation. NC Emerge 3.50x8 Balloon catheter was inserted. PTCA balloon inflated at 12 atms for 10 s ecs. PTCA balloon inflated at 15 atms for 13 secs. PTCA balloon inflated at 15 atms for 14 secs. Robyn ogram performed post balloon dilatation. NC Emerge 4.00x8 Balloon catheter was inserted. PTCA balloon inflated at 8 atms for 11 secs. Angiogram performed post balloon dilatation. HSII Guide catheter was inserted and engaged into the RCA. The FFR/iFR wire was inserted. Adenosine was then giv en per protocol. Pressures and FFR/iFR were then recorded. FFR Ratio Baseline: 0.94 FFR Ratio post Ad enosine: 0.93 The FFR/iFR wire was then removed. The arterial sheath was pulled and manual compress ion applied until hemostasis is achieved. INTERVENTION INFORMATION LESION SITE: Circumflex (Proximal) Lesion Complexity: Non-High/Non-C, lesion at bifurcation: No, thrombus present: No, lesion length: 12 mm, culprit lesion: Yes Pre Stenosis: 85 % Pre intervention MANDI flow: 3 PROCEDURE: Drug Eluting Stent with pre and post dilatation Post Stenosis: 0 % Post intervention MANDI flow: 3 Lesion Devices: [place] .014 BMW [place] Straight 190cm Medtronic 6 Fr EBU3.5 100cm Guide Catheter Ras Sci EMERGE MR 2.00x08 BALLOON Ras Sci Synergy MR LAVINIA 3.00x12 Ras Sci NC EMERGE MR 3.25x08 BALLOON Ras Sci NC EMERGE MR 3.50x08 BALLOON Ras Sci NC EMERGE MR 4.00x08 BALLOON LESION SITE: RCA (Mid) Pre Stenosis: 50 % Pre intervention MANDI flow: 3 Post Stenosis: 50 % Post intervention MANDI flow: 3 Lesion Devices: Medtronic 6 Fr HSII 100cm Guide Catheter IGT Devices ( Formerly [place]) Coronary FFR Wire COMPLICATIONS No Complications PROCEDURE MEDICATIONS Versed 1 mg IV Oxygen: 2 L/min via nasal cannula Adenosine drip for FFR 16 ml IV @ 12/28/2018 10:28:42 Heparin 6000 unit(s) IV 12/28/2018 09:58:11 Nitro 200 mcg IC 12/28/2018 09:59:59 Nitro 200 mcg IC 12/28/2018 09:59:59 Nitro 200 mcg IC 12/28/2018 10:11:26 IV Bolus: .9 NaCl ml total 12/28/2018 09:59:40 SUMMARY OF HEMODYNAMIC DATA Time AIR REST ECG 09:11:52 AO 112/39 (64) SA 09:25:44 LV 110/0, 23 09:48:00 LV 110/0, 24 09:48:06 LV 109/0, 23 09:48:53 LVp 112/0, 25 09:48:57 AOp 111/43 (71) 09:49:02 Signed By Agustin Muniz MD On 12/28/2018 10:44:48 Agustin Muniz MD
--- NOTE | 2018-12-28 10:59 | EKG12_ITS ---
Test Reason : POST PCI Blood Pressure : / mmHG Vent. Rate : 061 BPM Atrial Rate : 061 BPM P-R Int : 170 ms QRS Dur : 106 ms QT Int : 508 ms P-R-T Axes : 048 -20 064 degrees QTc Int : 511 ms Normal sinus rhythm Incomplete left bundle branch block ST & T wave abnormality, consider anterolateral ischemia Prolonged QT Abnormal ECG Confirmed by VANITA PASCAUL, JUSTYN ([id number]), multimedia editor NILA BELCHER ([id number]) on 01/03/2019 1:49:46 PM Referred By: Jack Abraham Confirmed By:JUSTYN WALDRON MD
[2018-12-28] MEDS: 0.9% Normal Saline 1,000 ML 150 ML IV (11:26)
[2018-12-28 12:01] LABS: Bedside Glucose 96 mg/dL (70-110)
--- NOTE | 2018-12-28 14:12 | CRPHASE1 ---
Patient Data/Charges [place]:: Agustin Muniz Phase I Charge:: Level I - Education Risk Factors/Lifestyle Hx Hypertension: Yes Hx Dyslipidemia: Yes Height: 5 ft 3 in Weight:: 57.153 kg BMI: 22.3 Substance Abuse: No Family History: Family History (Last Reviewed 12/28/18 @ 01:06 by Suraj Garg DO) Mother CAD (coronary artery disease) CVA (cerebral vascular accident) Myocardial infarction, Onset Age: 67 Hypertension Brother CAD (coronary artery disease) Hypertension Cancer Myocardial infarction, Onset Age: 73 Father Myocardial infarction, Onset Age: 77 Daughter Cancer Son Myocardial infarction, Onset Age: 46 Hospital Course Cardiac Cath Date:: 12/28/18 Medical/Surgical History OR:: Yes - prior OR CAD:: Yes Cardiomyopathy:: Yes Hypertension:: Yes Dyslipidemia:: Yes GERD:: Yes PTCA:: Yes ICD:: Yes Pacemaker:: Yes Discharge/Home/Social Eval Discharge Disposition: Home Marital Status:
--- NOTE | 2018-12-28 14:16 | CRPHASE1_ITS ---
Patient Data/Charges [place]:: Agustin Muniz Phase I Charge:: Level I - Education Risk Factors/Lifestyle Hx Hypertension: Yes Hx Dyslipidemia: Yes Height: 5 ft 3 in Weight:: 57.153 kg BMI: 22.3 Substance Abuse: No Family History: Family History (Last Reviewed 12/28/18 @ 01:06 by Suraj Garg DO) Mother CAD (coronary artery disease) CVA (cerebral vascular accident) Myocardial infarction, Onset Age: 67 Hypertension Brother CAD (coronary artery disease) Hypertension Cancer Myocardial infarction, Onset Age: 73 Father Myocardial infarction, Onset Age: 77 Daughter Cancer Son Myocardial infarction, Onset Age: 46 Hospital Course Cardiac Cath Date:: 12/28/18 Medical/Surgical History SC:: Yes - prior SC CAD:: Yes Cardiomyopathy:: Yes Hypertension:: Yes Dyslipidemia:: Yes GERD:: Yes PTCA:: Yes ICD:: Yes Pacemaker:: Yes Discharge/Home/Social Eval Discharge Disposition: Home Marital Status:
--- NOTE | 2018-12-28 14:18 | CRPH1.INSTRU ---
General Education CAD and cardiac anatomy and function:: Needs reinforcement Explanation of diagnoses and procedures:: Needs reinforcement Sign/Symptoms of [place]:: Not instructed Antiplatelet therapy: Needs reinforcement Proper use of NTG-SL: Not instructed Emergency procedures and activation of EMS: Needs reinforcement Compliance of all prescribed medications: Needs reinforcement Smoking Nicotine/Smoking Response Code:: Not instructed Dyslipidemia Recommendations Include:: Therapeutic Lifestyle Change dietary guidelines Dyslipidemia Response Code:: Needs reinforcement Overweight/Obesity Patient Overweight/Obesity Risk Factors Are:: BMI Normal [18-25 & < 65 years old] Overweight/Obesity:: Not instructed Hypertension Recommendations Include:: Maintain BP <130/85, BP <130/80 if diabetic, DASH dietary guidelines, Decrease/maintain normal body weight, Moderation of ETOH Hypertension:: Needs reinforcement Heart Disease Patient Heart Disease Risk Factors Are:: Family history of heart disease < 65 years old, Previous cardiac event Recommendations Include:: Educated family members of importance of prevention of heart disease Heart Disease Response Code:: Needs reinforcement Diabetes Diabetes:: Not instructed Metabolic Syndrome Metabolic Syndrome Response Code:: Not instructed Sedentary Sedentary Response Code:: Not instructed Stress Patient Stress Risk Factors Are:: Patient denies stress as a risk factor Stress Response Code:: Not instructed
--- NOTE | 2018-12-28 14:21 | CRPH1.INST_ITS ---
General Education CAD and cardiac anatomy and function:: Needs reinforcement Explanation of diagnoses and procedures:: Needs reinforcement Sign/Symptoms of [place]:: Not instructed Antiplatelet therapy: Needs reinforcement Proper use of NTG-SL: Not instructed Emergency procedures and activation of EMS: Needs reinforcement Compliance of all prescribed medications: Needs reinforcement Smoking Nicotine/Smoking Response Code:: Not instructed Dyslipidemia Recommendations Include:: Therapeutic Lifestyle Change dietary guidelines Dyslipidemia Response Code:: Needs reinforcement Overweight/Obesity Patient Overweight/Obesity Risk Factors Are:: BMI Normal [18-25 & < 65 years old] Overweight/Obesity:: Not instructed Hypertension Recommendations Include:: Maintain BP <130/85, BP <130/80 if diabetic, DASH dietary guidelines, Decrease/maintain normal body weight, Moderation of ETOH Hypertension:: Needs reinforcement Heart Disease Patient Heart Disease Risk Factors Are:: Family history of heart disease < 65 years old, Previous cardiac event Recommendations Include:: Educated family members of importance of prevention of heart disease Heart Disease Response Code:: Needs reinforcement Diabetes Diabetes:: Not instructed Metabolic Syndrome Metabolic Syndrome Response Code:: Not instructed Sedentary Sedentary Response Code:: Not instructed Stress Patient Stress Risk Factors Are:: Patient denies stress as a risk factor Stress Response Code:: Not instructed
--- NOTE | 2018-12-28 14:54 | PCM.PROGNOTE ---
<Ruddy Diego - Last Filed: 12/28/18 14:54> Patient Problems: Active and Suspected Problems (Last Reviewed 12/28/18 @ 01:05 by Suraj Garg DO) Sepsis (Acute) Orchitis of right testicle (Acute) Elevated troponin (Acute) Otitis media (Acute) Subjective: Patient seen and examined post catheterization, he had a stent placed to the proximal left circumflex. He is recovering in ICU, currently with no chest pain, pressure, tightness, heaviness, shortness of breath, lightheadedness or dizziness. No nausea or vomiting, occasional cough. He only has testicular pain with movement. No fevers or chills. No further dysuria. - Physical Exam General: Alert, Oriented x3, Cooperative HEENT: Atraumatic, PERRLA, EOMI, Normocephalic Neck: Supple, No JVD, Negative Carotid Bruits Lungs: Clear to auscultation, Normal air movement Cardiovascular: Regular rate, No murmurs Abdomen: Bowel Sounds Present, Soft, Non Tender Extremities: No edema, Capillary Refill Less than 3 Seconds Skin: No rashes, No breakdown, - - Significant orchitis present with erythema, given support Musculoskeletal: No Tenderness to Palpation of Joints or Extremities Neurological: Cranial nerves II-XII grossly intact Psych/Mental Status: Normal Affect, Appropriate, Alert and oriented to time, place, person, mood and affect Vital Signs Temp Pulse Resp BP Pulse Ox 99.0 F 56 L 16 101/40 L 96 12/28/18 11:15 12/28/18 14:00 12/28/18 14:00 12/28/18 14:00 12/28/18 14:00 Oxygen Flow Rate (L/min) 2 Oxygen Delivery Method Nasal Cannula Weight: 126 lb Body Mass Index (BMI) 22.4 Intake and Output for Last 24 Hours 12/26/18 12/27/18 12/28/18 23:59 23:59 23:59 Intake Total 807 / 807 Output Total 100 / 100 Balance 707 / 707 Laboratory Tests Past 24 Hrs 12/27/18 12/27/18 12/27/18 21:22 22:06 22:06 WBC 15.6 H RBC 4.16 L Hgb 12.6 L Hct 38.5 L MCV 92.5 MCH 30.3 MCHC 32.7 RDW 13.9 RDW Differential 46.7 H Plt Count 164 MPV 11.1 Immature Gran % (Auto) 0.100 Neut % (Auto) 83.5 H Lymph % (Auto) 9.5 L Mchenry % (Auto) 6.8 Eos % (Auto) 0.0 Baso % (Auto) 0.1 Absolute Neuts (auto) 13.1 H Absolute Lymphs (auto) 1.49 Total Counted Not Reportable Diff Path Review Sodium 135 L Potassium 3.5 Chloride 103 Carbon Dioxide 22.0 Anion Gap 10 BUN 17 Creatinine 0.97 Estim Creat Clear Calc 47.25 Est GFR (MDRD) Af Amer 95 Est GFR (MDRD) Non-Af 78 BUN/Creatinine Ratio 17.5 Glucose 126 H Lactic Acid Calcium 8.0 L Total Bilirubin 3.10 H AST 22 ALT 15 L Alkaline Phosphatase 64 Ammonia Troponin I 0.145 H Total Protein 7.6 Albumin 3.5 Globulin 4.1 Albumin/Globulin Ratio 0.9 Urine Color Yellow Urine Clarity Clear Urine pH 5.0 Ur Specific Morrison 1.020 Urine Protein 30 H Urine Glucose (UA) 100 H Urine Ketones 150 H Urine Occult Blood 50 H Urine Nitrite Negative Urine Bilirubin Negative Urine Urobilinogen 1 H Ur Leukocyte Esterase 100 H Urine RBC 0 SEEN Urine WBC 5-10 SEEN Ur Squamous Epith Cells 0-5 SEEN Urine Bacteria 0 SEEN Urine Mucus 0 SEEN 12/27/18 12/27/18 12/28/18 22:06 22:06 01:54 WBC RBC Hgb Hct MCV MCH MCHC RDW RDW Differential Plt Count MPV Immature Gran % (Auto) Neut % (Auto) Lymph % (Auto) Mchenry % (Auto) Eos % (Auto) Baso % (Auto) Absolute Neuts (auto) Absolute Lymphs (auto) Total Counted Diff Path Review Sodium Potassium Chloride Carbon Dioxide Anion Gap BUN Creatinine Estim Creat Clear Calc Est GFR (MDRD) Af Amer Est GFR (MDRD) Non-Af BUN/Creatinine Ratio Glucose Lactic Acid 1.7 Calcium Total Bilirubin AST ALT Alkaline Phosphatase Ammonia < 10.0 L Troponin I 0.240 H Total Protein Albumin Globulin Albumin/Globulin Ratio Urine Color Urine Clarity Urine pH Ur Specific Morrison Urine Protein Urine Glucose (UA) Urine Ketones Urine Occult Blood Urine Nitrite Urine Bilirubin Urine Urobilinogen Ur Leukocyte Esterase Urine RBC Urine WBC Ur Squamous Epith Cells Urine Bacteria Urine Mucus 12/28/18 12/28/18 03:54 03:54 WBC 17.2 H RBC 3.71 L Hgb 11.4 L Hct 34.5 L MCV 93.0 MCH 30.7 MCHC 33.0 RDW 13.9 RDW Differential 45.8 H Plt Count 146 L MPV 11.2 Immature Gran % (Auto) 0.300 Neut % (Auto) 82.5 H Lymph % (Auto) 4.9 L Mchenry % (Auto) 12.1 H Eos % (Auto) 0.1 Baso % (Auto) 0.1 Absolute Neuts (auto) 14.2 H Absolute Lymphs (auto) 0.85 Total Counted Not Reportable Diff Path Review March Sodium 140 Potassium 3.7 Chloride 104 Carbon Dioxide 23.0 Anion Gap 13 BUN 20 H Creatinine 1.04 Estim Creat Clear Calc 44.07 Est GFR (MDRD) Af Amer 88 Est GFR (MDRD) Non-Af 73 BUN/Creatinine Ratio 19.2 Glucose 124 H Lactic Acid Calcium 7.9 L Total Bilirubin 2.30 H AST 21 ALT 13 L Alkaline Phosphatase 55 Ammonia Troponin I 0.287 H Total Protein 6.8 Albumin 3.1 L Globulin 3.7 Albumin/Globulin Ratio 0.8 L Urine Color Urine Clarity Urine pH Ur Specific Morrison Urine Protein Urine Glucose (UA) Urine Ketones Urine Occult Blood Urine Nitrite Urine Bilirubin Urine Urobilinogen Ur Leukocyte Esterase Urine RBC Urine WBC Ur Squamous Epith Cells Urine Bacteria Urine Mucus POC Glucose 12/28/18 11:54 POC Glucose 96 Medical Necessity - Tobacco Use Smoking Status: Never smoker Tobacco Use: Non-smoker Assessment/Plan All Active Problems (Last Reviewed 12/28/18 @ 01:05 by Suraj Garg DO) Sepsis (Acute) Orchitis of right testicle (Acute) Elevated troponin (Acute) Otitis media (Acute) SBO (small bowel obstruction) (Acute) 1. CAD-elevated troponin-underwent heart catheterization with PCI to the proximal left circumflex this morning. Recovering well. Care per Dr. Muniz. On aspirin and statin, Coreg, Plavix, imdur. 2. Acute sepsis secondary to orchitis right testicle, possible epididymitis and recent urinary tract infection-continue Rocephin. Took Cipro as an outpatient as well as Macrobid. No further dysuria and urine is now clean. No fever, however still significant leukocytosis, swelling, pain. We will continue to monitor and consider urology consult if no further improvement. Blood cultures pending urine culture pending. 3. Right-sided otitis media-on Rocephin. 4. History of systolic heart failure, ischemic cardiomyopathy-EF 30%, RVSP 32 mmHg. Not in acute exacerbation. Continue carvedilol and Entresto. 5. Elevated bili-no abdominal symptoms. Trending down. Possibly secondary to sepsis. 6. History of iron deficient anemia 7. Hypertension and hyperlipidemia. Continue current medications. Discharge planning: PTOT, monitor for improvement and orchitis. This patient was seen by Ruddy Diego PA-C under the supervision of Doctor Mannie. <René Chand - Last Filed: 12/28/18 17:31> Subjective: Seen and examined. Discussed with the patient's and daughter. Patient had cardiac cath in the morning and a stent was placed in proximal left circumflex. Previous stents were patent. Discussed with Dr. Muniz. Patient also has testicular pain and left ear pain. - Physical Exam General: Alert, Oriented x3, Cooperative HEENT: Atraumatic, PERRLA, EOMI, Normocephalic, - - No mastoid tenderness or auricle tenderness. Neck: Supple, No JVD, Negative Carotid Bruits Lungs: Diminished Cardiovascular: Regular rate, Regular Rhythm, Normal S1, Normal S2, Murmur - Systolic murmur over left sternal border Abdomen: Bowel Sounds Present, Soft, Non Tender, Non-Distended, - - Right testis and epididymis are tender and swollen and enlarged. Bilateral hydrocele, right more than left. Extremities: No edema, Capillary Refill Less than 3 Seconds Skin: No rashes, No breakdown, - Musculoskeletal: No Tenderness to Palpation of Joints or Extremities, Arthritic Changes Neurological: Cranial nerves II-XII grossly intact, Neuro grossly intact Psych/Mental Status: Normal Affect, Appropriate Vital Signs Temp Pulse Resp BP Pulse Ox 99.0 F 69 17 126/69 H 99 12/28/18 11:15 12/28/18 16:00 12/28/18 16:00 12/28/18 16:00 12/28/18 16:00 Oxygen Flow Rate (L/min) 2 Oxygen Delivery Method Nasal Cannula Weight: 126 lb Body Mass Index (BMI) 22.4 Intake and Output for Last 24 Hours 12/26/18 12/27/1812/28/19 23:59 23:59 23:59 Intake Total 807 / 807 Output Total 100 / 100 Balance 707 / 707 Laboratory Tests Past 24 Hrs 12/27/18 12/27/18 12/27/18 21:22 22:06 22:06 WBC 15.6 H RBC 4.16 L Hgb 12.6 L Hct 38.5 L MCV 92.5 MCH 30.3 MCHC 32.7 RDW 13.9 RDW Differential 46.7 H Plt Count 164 MPV 11.1 Immature Gran % (Auto) 0.100 Neut % (Auto) 83.5 H Lymph % (Auto) 9.5 L Mchenry % (Auto) 6.8 Eos % (Auto) 0.0 Baso % (Auto) 0.1 Absolute Neuts (auto) 13.1 H Absolute Lymphs (auto) 1.49 Total Counted Not Reportable Diff Path Review Activated Clotting Time Sodium 135 L Potassium 3.5 Chloride 103 Carbon Dioxide 22.0 Anion Gap 10 BUN 17 Creatinine 0.97 Estim Creat Clear Calc 47.25 Est GFR (MDRD) Af Amer 95 Est GFR (MDRD) Non-Af 78 BUN/Creatinine Ratio 17.5 Glucose 126 H Lactic Acid Calcium 8.0 L Total Bilirubin 3.10 H AST 22 ALT 15 L Alkaline Phosphatase 64 Ammonia Troponin I 0.145 H Total Protein 7.6 Albumin 3.5 Globulin 4.1 Albumin/Globulin Ratio 0.9 Urine Color Yellow Urine Clarity Clear Urine pH 5.0 Ur Specific Morrison 1.020 Urine Protein 30 H Urine Glucose (UA) 100 H Urine Ketones 150 H Urine Occult Blood 50 H Urine Nitrite Negative Urine Bilirubin Negative Urine Urobilinogen 1 H Ur Leukocyte Esterase 100 H Urine RBC 0 SEEN Urine WBC 5-10 SEEN Ur Squamous Epith Cells 0-5 SEEN Urine Bacteria 0 SEEN Urine Mucus 0 SEEN 12/27/18 12/27/18 12/28/18 22:06 22:06 01:54 WBC RBC Hgb Hct MCV MCH MCHC RDW RDW Differential Plt Count MPV Immature Gran % (Auto) Neut % (Auto) Lymph % (Auto) Mchenry % (Auto) Eos % (Auto) Baso % (Auto) Absolute Neuts (auto) Absolute Lymphs (auto) Total Counted Diff Path Review Activated Clotting Time Sodium Potassium Chloride Carbon Dioxide Anion Gap BUN Creatinine Estim Creat Clear Calc Est GFR (MDRD) Af Amer Est GFR (MDRD) Non-Af BUN/Creatinine Ratio Glucose Lactic Acid 1.7 Calcium Total Bilirubin AST ALT Alkaline Phosphatase Ammonia < 10.0 L Troponin I 0.240 H Total Protein Albumin Globulin Albumin/Globulin Ratio Urine Color Urine Clarity Urine pH Ur Specific Morrison Urine Protein Urine Glucose (UA) Urine Ketones Urine Occult Blood Urine Nitrite Urine Bilirubin Urine Urobilinogen Ur Leukocyte Esterase Urine RBC Urine WBC Ur Squamous Epith Cells Urine Bacteria Urine Mucus 12/28/18 12/28/18 12/28/18 03:54 03:54 10:25 WBC 17.2 H RBC 3.71 L Hgb 11.4 L Hct 34.5 L MCV 93.0 MCH 30.7 MCHC 33.0 RDW 13.9 RDW Differential 45.8 H Plt Count 146 L MPV 11.2 Immature Gran % (Auto) 0.300 Neut % (Auto) 82.5 H Lymph % (Auto) 4.9 L Mchenry % (Auto) 12.1 H Eos % (Auto) 0.1 Baso % (Auto) 0.1 Absolute Neuts (auto) 14.2 H Absolute Lymphs (auto) 0.85 Total Counted Not Reportable Diff Path Review May foll Activated Clotting Time 169 H Sodium 140 Potassium 3.7 Chloride 104 Carbon Dioxide 23.0 Anion Gap 13 BUN 20 H Creatinine 1.04 Estim Creat Clear Calc 44.07 Est GFR (MDRD) Af Amer 88 Est GFR (MDRD) Non-Af 73 BUN/Creatinine Ratio 19.2 Glucose 124 H Lactic Acid Calcium 7.9 L Total Bilirubin 2.30 H AST 21 ALT 13 L Alkaline Phosphatase 55 Ammonia Troponin I 0.287 H Total Protein 6.8 Albumin 3.1 L Globulin 3.7 Albumin/Globulin Ratio 0.8 L Urine Color Urine Clarity Urine pH Ur Specific Morrison Urine Protein Urine Glucose (UA) Urine Ketones Urine Occult Blood Urine Nitrite Urine Bilirubin Urine Urobilinogen Ur Leukocyte Esterase Urine RBC Urine WBC Ur Squamous Epith Cells Urine Bacteria Urine Mucus POC Glucose 12/28/18 11:54 POC Glucose 96 Assessment/Plan This patient was seen in conjunction with Ruddy WHITE. I have independently interviewed and examined the patient and reviewed pertinent history, examination findings, laboratory and plan of management. I have reviewed the note and agree with the documented findings with the few additional points. In brief, patient is admitted for non-STEMI along with chronic systolic heart failure with severe LV dysfunction status post STEMI 2007. Patient had cardiac cath in the morning and proximal LAD was stented. Patient is on aspirin, Coreg, Plavix and Imdur. Patient also has UTI and orchitis. Urine culture ordered. On IV Rocephin. Rocephin will also cover otitis media. 2D echo reviewed shows EF 25-30% with severe akinetic anterior and anteroseptal wall. Mild TR. testicular ultrasound is consistent with right-sided epididymal orchitis with increased vascularity of of epididymis. Bilateral hydroceles, moderate side with right-sided loculated. Right upper quadrant sonogram did not show acute abnormality. Previous cholecystectomy. DVT 8 mm. Normal echogenicity of the liver. Discussed with the urologist, Dr. Barth and advised to continue antibiotic and follow-up in the office in 2 weeks for bilateral hydrocele with a right side loculated. I have discussed my assessment with Ruddy WHITE and orders have been reviewed. Clinical Impression(s) from Imaging Studies Brain CT 12/27/18 21:46 IMPRESSION: Chronic age related changes and atrophy. No acute abnormality. Electronically Signed: Tien Luo MD at 22:40 EST , Service support , Chest X-Ray 12/27/18 22:24 IMPRESSION: Mild cardiomegaly. No acute chest disease. Electronically Signed: Tien Luo MD at 22:38 EST , Service support , Abdomen Ultrasound 12/28/18 01:06 IMPRESSION: No definite acute abnormality. Previous cholecystectomy. Electronically Signed: Tien Luo MD at 15:57 EST , Service support , Testicular Ultrasound 12/28/18 01:06 IMPRESSION: Normal bilateral testicles. Right sided epididymoorchitis is not excluded. Bilateral hydroceles. Code Visit Inpatient E&M: 03347 Subs Hosp L3
[2018-12-28 15:26] LABS: ACT Activated Clotting Time 169 sec (74-137)
--- NOTE | 2018-12-28 15:56 | CASEMGMT ---
RN CM STAFF RADIATION THERAPIST CM to room to meet with patient for initial transition planning/care coordination assessment. RN DANIELA introduced self and role at [facility]. Pt voices understanding and consents to assessment at this time. Pt resting in bed in no distress at this time. and daughter @ bedside. Pt is A/O at this time and answers all questions appropriately. Care providers, pharmacy, and demographics verified at this time. PCP: Shailesh Mancini Specialists: Scar Hameed Pharmacy: [facility] Insurance: [employer] Prescription Benefit: Yes Living Will/HPOA: States does not have LW or HCPOA . Interested in more information. Provided information on advanced directives and given Social Service rac card with number to call if chooses in the future to utilize [facility] social work for advanced directive completion. Educated patient that, if patient so chooses, can come back to [facility] and meet with a SW as an outpatient to complete health care advanced directives. Patient expresses understanding. Pt states he is interested in talking to SW while @ the hospital. CELIA Carreon, notified. LNOK: and daughter, Magaly. Living Arrangements: Lives with his in a one-story home w/stairs to the basement. Pt states he has not been going into the basement recently since becoming ill d/t his weakness. States was independent prior to this recent illness but since then has been more weak and not able to get around as well. states pt has become so weak that he fell @ home and she had difficulty getting him up. Transportation: Pt states drives self and also drives. DME: Has the following DME but does not use: shower chair, raised toilet seat, walker. States no need for further DME at this time. HHC/SNF: Has never been to a SNF or used HHC. Has went to [facility] in the past for therapy after having an ND. Pt wishes to return home and states does not feel that he needs HHC or out-pt therapy at this time. Pt states I hope that I will be strong enough on discharge that I won't need that and I can do my own therapy. PT/OT evals pending. Pt stated that he wants to wait and see how he does and how well he feels closer to the time of being discharged. Pt stated would be agreeable to talking about this again once therapy evaluates him and if they make recommendations. CM to follow for discharge planning/needs. Pt voices no further concerns/needs at this time. Advised pt to ask for CM if any further questions/concerns/needs arise. Voices understanding. PLAN: Home with possible HHC or out-pt therapy. PT/OT evals pending. Triston WILLOUGHBYN RN CM
[2018-12-28] MEDS: Atorvastatin Calcium 10 MG Tablet PO (22:09)
[2018-12-28] MEDS: SACUBITRIL/VALSARTAN 24/26 MG TABLET 1 EACH PO (22:15)
[2018-12-28 22:25] LABS: Bedside Glucose 92 mg/dL (70-110)
[2018-12-29] VITALS (15 sets, daily range): BP systolic 90–142; BP diastolic 33–67; PULSE 55–72; RESP 12–19; TEMP 37–37.2; O2SAT 94–98
[2018-12-29 04:13] LABS: Hemoglobin 10.3 g/dl (13.0-16.5); Mean Corp Hgb Conc 33.2 g/gl (32-36); Mean Corpuscular Hgb 30.7 pg (27.0-32.0); Mean Corpuscular Volume 92.3 fL (80-94); Mean Platelet Vol. 10.7 fl (6.2-12.0); Platelet Count 147 K/mm3 (150-450); RBC Distribution Width SD 46.1 fl (35.1-43.9); Red Blood Count 3.36 M/mm3 (4.6-6.2); Scan Indicated on CBC? Y/N NO; White Blood Count 13.7 K/mm3 (4.4-11.0)
[2018-12-29 04:25] LABS: Anion Gap 8 (5-15); BUN 25 mg/dL (7-18); BUN/Creat Ratio 28.8 RATIO (10-20); Calcium,Total 7.7 mg/dL (8.5-10.1); Chloride 109 mmol/L (98-107); Creatinine, Serum 0.87 mg/dL (0.70-1.30); EST Glomerular Filtration Rate 89 mL/min (>60); Est Glom Filt Rate - Afr Amer 108 mL/min (>60); Estimated Creatinine Clearance 52.69 ml/min; Glucose 106 mg/dL (74-106); Potassium 3.6 mmol/L (3.5-5.1); Sodium Level 142 mmol/L (136-145)
[2018-12-29 06:50] LABS: Bedside Glucose 101 mg/dL (70-110)
[2018-12-29] MEDS: Carvedilol 12.5 MG Tablet PO (08:03)
[2018-12-29] MEDS: Aspirin 81 MG TAB.CHEW PO (08:03)
[2018-12-29] MEDS: SACUBITRIL/VALSARTAN 24/26 MG TABLET 1 EACH PO (08:04)
[2018-12-29] MEDS: Isosorbide Mononitrate 30 MG Tablet PO (08:04)
[2018-12-29] MEDS: Clopidogrel Bisulfate 75 MG Tablet PO (08:04)
[2018-12-29] MEDS: Acetaminophen 325 MG Tablet 650 MG PO (08:08)
--- NOTE | 2018-12-29 08:10 | CL.D_ITS ---
Patient Name: JORGE GUZMÁN Study Date: 12/28/2018 Performing: Robbi Abbott MD Ht: 63 inches 160 cm : 1935 Wt: 125.8 lbs 57 kg Age: 83 Gender: male BSA: 1.59 PROCEDURE(S) PERFORMED FP33-OFQ/COR/LV SC82-CCI, CORONARY OR GRAFT, INITIAL VESSEL MG82-RSE W OR WO PTCA, SINGLE CORONARY ARTERY CLINICAL PROFILE AND INDICATIONS Indications: ACS <= 24 hrs, Suspected CAD, LV Dysfunction, Cardiomyopathy, ACS <= 24 hrs, Stable Known CAD, Cardiomyopathy, LV Dysfunction Heart Failure: NYHA Class: 3, Newly Diagnosed: No, Heart Failure Type: Systolic, NYHA Class: 2, N ewly Diagnosed: No, Heart Failure Type: Systolic Stress/Imaging Date: 10/18/2018Stress Test with SPECT MPI: NegativeStress/Image Study Performed: No Angina Classification Anginal Classification w/in 2 Weeks: CCS III CAD Presentations: Other: shortness of breath / fatigue Comorbidities/Risk Factors: Hypertension Dyslipidemia Prior CHF Prior PCI CONCLUSIONS Elevated Left Ventricular End Diastolic Pressure Segmented LV systolic dysfunction- Moderate LVEF: by LV gram 30 % [place] Multivessel CAD Mitral Valve Insufficiency Trace RECOMMENDATIONS Risk factor modification Medical therapy Referred for immediate PCI (LCX) Staged for FFR (RCA) DESCRIPTION OF PROCEDURE The patient arrived to the procedure lab. The risks and benefits of the procedure as well as a full d escription of our services here and current unavailability of surgical backup were fully explained to the patient and/or their significant other prior to the catheterization. The Timeout was completed, verifying the correct patient and procedure. The patient's procedural site was prepped and draped in the usual fashion. Local anesthetic was given subcutaneously to right groin region with Lidocaine 2%. Using a modified Seldinger technique, arterial access was obtained via the right femoral artery, a 4 Fr sheath was inserted Left Coronary Artery selective angiography was performed in multiple views us ing a 4 Fr. JL5 catheter. Right Coronary Artery selective angiography was then performed in multiple views using a 4 Fr. 3DRC catheter. Left Ventriculography was performed in PAEZ projection using a 4 Fr . Pigtail catheter.The arterial sheath was pulled and manual compression applied until hemostasis is achieved. CORONARY ANGIOGRAPHY DOMINANCE: Right Dominant LEFT HEART ASSESSMENT Left Ventricular Ejection Fraction: by LV Gram 30 % Anterior Akinesis. Apical Akinesis Elevated Left Ventricular End Diastolic Pressure LVEDP: 24 mmHg LEFT MAIN: Mild luminal irregularities LEFT ANTERIOR DECENDING ARTERY: PROX LAD: Previously placed stent is patent MID LAD: Mild luminal irregularities DISTAL LAD: Mild luminal irregularities CIRCUMFLEX ARTERY: Mild luminal irregularities PROX CIRC: 85 % Stenosis MID CIRC: Eccentric: 25 % Stenosis RIGHT CORONARY ARTERY: Mild luminal irregularities PROX RCA: Serial: Ecentric: Hazy: 25 % Stenosis VALVE FINDINGS: Normal Aortic Valve function Mitral Valve Insufficiency - Trace AORTIC ROOT: Angiographically normal COMPLICATIONS No Complications PROCEDURE MEDICATIONS Versed 1 mg IV Oxygen: 2 L/min via nasal cannula Adenosine drip for FFR 16 ml IV @ 12/28/2018 10:28:42 Heparin 6000 unit(s) IV 12/28/2018 09:58:11 Nitro 200 mcg IC 12/28/2018 09:59:59 Nitro 200 mcg IC 12/28/2018 09:59:59 Nitro 200 mcg IC 12/28/2018 10:11:26 IV Bolus: .9 NaCl ml total 12/28/2018 09:59:40 SUMMARY OF HEMODYNAMIC DATA Time AIR REST ECG 09:11:52 AO 112/39 (64) SA 09:25:44 LV 110/0, 23 09:48:00 LV 110/0, 24 09:48:06 LV 109/0, 23 09:48:53 LVp 112/0, 25 09:48:57 AOp 111/43 (71) 09:49:02 Signed By Robbi Abbott MD On 12/29/2018 08:09:36 Robbi Abbott MD
--- NOTE | 2018-12-29 08:23 | DCINST_ITS ---
- Discharge Diagnoses Current Active Problems: Current Active and Chronic Problems (Last Reviewed 12/28/18 @ 01:05 by Suraj Garg DO) Sepsis (Acute) Orchitis of right testicle (Acute) Elevated troponin (Acute) Otitis media (Acute) You will use the following diet at home:: Cardiac Your food should be the consistency of: Regular Discharge Activity: May Not Drive Call your doctor if you observe: Fever of 101 or Higher, Change in Color, Short ness of breath, Swelling in the ankles, Chest pain Additional Instructions: wear scrotal support/tight brief for epididymoorchitis Allergies/Adverse Reactions: Allergies morphine Allergy (Intermediate, Verified 12/27/18 21:03) Other RASH zolpidem tartrate [From Ambien] Adverse Reaction (Intermediate, Verified 12/27/18 21:03) Other CONFUSION Medications to take at Discharge Aspirin [Aspirin, Baby] 81 mg PO DAILY 03/05/16 Nitroglycerin [Nitrostat] 0.4 mg SUBLINGUAL Q5M PRN 04/15/16 diphenhydramine 25 mg-acetaminophen 500 mg tablet 1 tab PO QHS PRN tab 10/22/17 carvedilol 12.5 mg tablet 12.5 mg PO BID #180 tab 10/03/18 clopidogrel 75 mg tablet 75 mg PO DAILY #90 tab 10/03/18 isosorbide mononitrate ER 30 mg tablet,extended release 24 hr 30 mg PO QAM #90 tab 10/03/18 sacubitril 24 mg-valsartan 26 mg tablet 1 tab PO BID #60 tab 11/02/18 simvastatin 20 mg tablet 20 mg PO QHS #90 tab 12/05/18 Meclizine HCl 12.5 mg PO Q4H PRN PRN 12/28/18 Cefadroxil [Duracef] 500 mg PO BID #14 capsule 12/29/18 Lactobacillus Acidophilus [Acidophilus] 1 each PO BID #14 capsule 12/29/18 The following prescriptions were given: Cefadroxil [Duracef] 500 mg PO BID #14 capsule Lactobacillus Acidophilus [Acidophilus] 1 each PO BID #14 capsule Primary Care Physician: Shailesh Mancini [Primary Care Provider] - Please follow up with your Primary Care Physician in: in 1-2 week. F/U LFT in 1 week Test Results: Test results from this visit will be discussed in further detail at your follow- up appointment, if applicable. Please Follow Up With: Faisal Barth MD When: in 2 weeks for B/L hydrocele and epidodymorchitis Please Follow Up With: Robbi Abbott MD When: as scheduled
--- NOTE | 2018-12-29 08:24 | DS.PCM_ITS ---
Discharge Date and Diagnosis Date of Admission: 12/28/18 Date of Discharge: 12/29/18 - Primary Discharge Diagnosis Active and Suspected Problems (Last Reviewed 12/28/18 @ 01:05 by Suraj Garg DO) Sepsis (Acute) Orchitis of right testicle (Acute) Elevated troponin (Acute) Otitis media (Acute) - Secondary Discharge Diagnosis Chronic Problems (Last Reviewed 12/28/18 @ 01:05 by Suraj Garg DO) 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) Essential hypertension (Chronic) History of placement of internal cardiac defibrillator (Chronic) ICD Implant 04/11/2009, ICD Gen Change 04/16/2016 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 (Chronic) Cardiomyopathy, ischemic (Chronic) Chronic systolic congestive heart failure (Chronic) HLD (hyperlipidemia) (Chronic) Abnormal result of cardiovascular function study, unspecified (Chronic) High risk medication use (Chronic) Iron deficiency anemia (Chronic) Chest pain, precordial (Chronic) Atherosclerotic heart disease of [place] coronary artery without angina pectoris (Chronic) PTCA/BMS to prox LAD 08/02/2008; Dyspnea (Chronic) Fatigue (Chronic) Hypokalemia (Chronic) Hyperlipidemia (Chronic) Benign prostatic hypertrophy (Chronic) Hospital Course and Treatment Operations: None Summary of Care Provided: The patient is a 83 year old M is being admitted for non-STEMI along with chronic systolic heart failure with severe LV dysfunction status post STEMI 2007. Patient had cardiac cath in the morning and proximal LAD was stented. Patient is on aspirin, Coreg, Plavix and Imdur. Patient also has UTI and orchitis. Urine culture ordered shows no growth. On IV Rocephin. Rocephin will also cover otitis media. 2D echo reviewed shows EF 25-30% with severe akinetic anterior and anteroseptal wall. Mild TR. testicular ultrasound is consistent with right-sided epididymal orchitis with increased vascularity of of epididymis. Bilateral hydroceles, moderate side with right-sided loculated. Right upper quadrant sonogram did not show acute abnormality. Previous cholecystectomy. DVT 8 mm. Normal echogenicity of the liver. Further hospital course and management as follows 1. CAD-status post non-STEMI with elevated troponin-underwent heart catheterization with PCI to the proximal left circumflex this morning. On aspirin and statin, Coreg, Plavix, imdur. She is discharged on same medications. 2. Acute sepsis secondary to orchitis right testicle, possible epididymitis and recent urinary tract infection and bilateral hydrocele, right more than left-IV Rocephin while inpatient. Patient had taken Cipro as an outpatient as well as Macrobid. No further dysuria and urine is now clean. Mild pyuria, WBC 5-10 cells with LE 100. No fever, leukocytosis improved. Pain, tenderness and swelling of epididymoorchitis has improved. Urine culture shows no growth. Discussed with the radiologist Dr. Ga he advised antibiotic for total of 10 days duration for epididymoorchitis. Patient was further given 7 days of cefadroxil 500 mg twice daily. Prescription sent to the pharmacy 3. Right-sided otitis media-on Rocephin. As mentioned above 4. History of systolic heart failure, ischemic cardiomyopathy-EF 30%, RVSP 32 mmHg. Not in acute exacerbation. Continue carvedilol and Entresto. 5. Elevated bili-no abdominal symptoms. Trending down. Possibly secondary to sepsis. 6. History of iron deficient anemia 7. Hypertension and hyperlipidemia. Continue current medications. Discharge medication reconciliation done. Discharge follow-up instructions completed. Discharge process discussed with the patient and all questions were answered to patient's satisfaction.. Total time spent, exact 35 minutes on discharge meds reconciliation, examination, review of imaging and blood test and discussion with the patient on follow-up instructions. Discussed with the urologist, Dr. Barth and advised to continue antibiotic and follow-up in the office in 2 weeks for bilateral hydrocele with a right side loculated and bigger than left hydrocele. Patient was admitted as inpatient but was discharged because of sooner recovery than expected. Subjective: Patient seen and examined. No fever/chills. Scrotal pain is better. Patient was advised to wear scrotal support/brief. Right ear pain is much improved. Although UA is positive but urine culture shows no growth. - Physical Exam General: Alert, Oriented x3, Cooperative HEENT: Atraumatic, PERRLA, EOMI, Normocephalic Neck: Supple, No JVD, Negative Carotid Bruits Lungs: Clear to auscultation, Normal air movement, No rhonchi, No wheeze, No rales Cardiovascular: Regular rate, Regular Rhythm, Normal S1, Normal S2, No murmurs Abdomen: Bowel Sounds Present, Soft, Non Tender, Non-Distended, - - Tenderness present on right testis but erythema is better. Overall, tenderness is improved. Bilateral hydrocele, right more than left. Extremities: No edema, Capillary Refill Less than 3 Seconds Skin: No rashes, No breakdown Musculoskeletal: No Tenderness to Palpation of Joints or Extremities Neurological: Cranial nerves II-XII grossly intact Psych/Mental Status: Normal Affect, Appropriate Vital Signs Temp Pulse Resp BP Pulse Ox 97.9 F 61 12 100/46 L 95 12/28/18 20:00 12/29/18 06:00 12/29/18 06:00 12/29/18 06:00 12/29/18 07:40 Oxygen Flow Rate (L/min) 2 Oxygen Delivery Method Room Air Weight: 126 lb Body Mass Index (BMI) 22.4 Intake and Output for Last 24 Hours 12/27/18 12/28/18 12/29/18 23:59 23:59 23:59 Intake Total 2236.2 / 2236.2 90 / 90 Output Total 500 / 500 Balance 1736.2 / 1736.2 90 / 90 Laboratory Tests Past 24 Hrs 12/28/18 12/29/18 12/29/18 10:25 04:00 04:00 WBC 13.7 H RBC 3.36 L Hgb 10.3 L Hct 31.0 L MCV 92.3 MCH 30.7 MCHC 33.2 RDW 14.0 RDW Differential 46.1 H Plt Count 147 L MPV 10.7 Activated Clotting Time 169 H Sodium 142 Potassium 3.6 Chloride 109 H Carbon Dioxide 25.0 Anion Gap 8 BUN 25 H Creatinine 0.87 Estim Creat Clear Calc 52.69 Est GFR (MDRD) Af Amer 108 Est GFR (MDRD) Non-Af 89 BUN/Creatinine Ratio 28.8 H Glucose 106 Calcium 7.7 L POC Glucose 12/29/18 12/28/18 12/28/18 06:47 22:11 11:54 POC Glucose 101 92 96 Discharge Activity: May Not Drive Call your doctor if you observe: Fever of 101 or Higher, Change in Color, Shortness of breath, Swelling in the ankles, Chest pain Home Medications: Medications to take at Discharge Aspirin [Aspirin, Baby] 81 mg PO DAILY 03/05/16 Nitroglycerin [Nitrostat] 0.4 mg SUBLINGUAL Q5M PRN 04/15/16 diphenhydramine 25 mg-acetaminophen 500 mg tablet 1 tab PO QHS PRN tab 10/22/17 carvedilol 12.5 mg tablet 12.5 mg PO BID #180 tab 10/03/18 clopidogrel 75 mg tablet 75 mg PO DAILY #90 tab 10/03/18 isosorbide mononitrate ER 30 mg tablet,extended release 24 hr 30 mg PO QAM #90 tab 10/03/18 sacubitril 24 mg-valsartan 26 mg tablet 1 tab PO BID #60 tab 11/02/18 simvastatin 20 mg tablet 20 mg PO QHS #90 tab 12/05/18 Meclizine HCl 12.5 mg PO Q4H PRN PRN 12/28/18 Cefadroxil [Duracef] 500 mg PO BID #14 capsule 12/29/18 Lactobacillus Acidophilus [Acidophilus] 1 each PO BID #14 capsule 12/29/18 Following Prescrptions Were Given to Patient: Cefadroxil [Duracef] 500 mg PO BID #14 capsule Lactobacillus Acidophilus [Acidophilus] 1 each PO BID #14 capsule Primary Care Physician: Shailesh Mancini [Primary Care Provider] - Please follow up with your Primary Care Physician in: in 1-2 week. F/U LFT in 1 week Please Follow Up With: Faisal Barth MD When: in 2 weeks for B/L hydrocele and epidodymorchitis Please Follow Up With: Robbi Abbott MD When: as scheduled Medical Necessity - Tobacco Use Smoking Status: Never smoker Tobacco Use: Non-smoker Meaningful Use Info Meaningful Use Diagnoses (Choose all that apply): AMI - AMI Aspirin given w/in 24hrs of arrival?: Yes ASA at discharge?: Yes Statins at discharge?: Yes Ramu/ARB at discharge?: Yes Beta Mona at discharge?: Yes Done w/ Acute AL measure.: Yes Code Visit Inpatient E&M: 83547 Disch Hosp
--- NOTE | 2018-12-29 08:49 | CASEMGMT ---
SW received referral that pt is interested in more information regarding LW/POA. SW met w/pt in room, pt is not wanting to complete the documents at this time. SW did give pt the blank documents and explained to him he can call the SW dept to set up an appointment as an outpatient to complete, number given. Pt states understanding. SW explained to pt that it is important to speak w/whomever he is planning to put as POA, about what his wishes would be should he not be able to make decisions for himself. Pt states understanding. No further needs. PRECIOUS Gautam, PRIVACY DIRECTOR
--- NOTE | 2018-12-29 09:00 | PCM.PN.CARD ---
Subjectve: The patient is awake and alert. He denies ongoing chest discomfort or worsening shortness of breath/dyspnea. He states his main concern revolves his testicular issue. Objective: Vital Signs Temp Pulse Resp BP Pulse Ox 97.9 F 61 12 100/46 L 95 12/28/18 20:00 12/29/18 06:00 12/29/18 06:00 12/29/18 06:00 12/29/18 07:40 Oxygen Flow Rate (L/min) 2 Oxygen Delivery Method Room Air Weight: 126 lb Body Mass Index (BMI) 22.4 Intake and Output for Last 24 Hours 12/27/18 12/28/18 12/29/18 23:59 23:59 23:59 Intake Total 2236.2 / 2236.2 Output Total 500 / 500 Balance 1736.2 / 1736.2 General: Awake, Alert, Oriented x 3, Cooperative, No Acute Distress HEENT: Atraumatic, Normocephalic, PERRL, EOMI, Sclera Non Icteric Oral: Moist Mucosa Neck: Supple, Good ROM, No JVD Lungs: Clear to auscultation Cardiovascular: Regular Rhythm, Normal S1, Normal S2 Vascular: No Carotid Bruits, Normal Femoral Pulses Abdomen: Bowel Sounds Present, Soft, Non Tender Extremities: No edema Neurological: No Focal Motor or Sensory Deficit Psych/Mental Status: Appropriate 12/29/18 04:00: WBC 13.7 H, RBC 3.36 L, Hgb 10.3 L, Hct 31.0 L, MCV 92.3, MCH 30.7, MCHC 33.2, RDW 14.0, RDW Differential 46.1 H, Plt Count 147 L, MPV 10.7 12/29/18 04:00: Sodium 142, Potassium 3.6, Chloride 109 H, Carbon Dioxide 25.0, Anion Gap 8, BUN 25 H, Creatinine 0.87, Est GFR (MDRD) Af Amer 108, Est GFR (MDRD) Non-Af 89, BUN/Creatinine Ratio 28.8 H, Glucose 106, Calcium 7.7 L Rhythm:Sinus rhythm EKG:sinus rhythm; left axis deviation; incomplete left bundle branch block; nonspecific T-wave abnormality ECHO:please see official report Cardiac Cath:Please see official report PCI:please see official report Medical Necessity - Tobacco Use Smoking Status: Never smoker Tobacco Use: Non-smoker Assessment/Plan 1. CAD status post OR remote status post LAD PCI remote now status post LCx PCI. At the present time he appears to be doing well from a cardiovascular standpoint with no new acute complaints. She will need continued combined cardiovascular medical therapy. This has included aspirin, antiplatelet agents, nitrates, beta blockers, afterload reducing agents, lipid-lowering agents, etc. He should be considered for additional outpatient evaluation, A1c improved from his noncardiac issues come up with cardiac rehabilitation. 2. Ischemic mediated cardiomyopathy He does have an ischemic mediated cardiomyopathy. His estimated LVEF is approximately 30%. He does not appear to have any findings of acute CHF at this time. He will need to continue combined medical management. 3. ICD He does have an ICD in place. It has been followed as an outpatient. It has been functioning appropriately. 4. Hyperlipidemia He will continue lipid lowering therapy. 5. Hypertension His medications can be adjusted as deemed appropriate. This note was generated using a voice recognition system and there may be incorrect words, spelling or punctuation that were not noted when reviewing the office note prior to saving.
[2018-12-29 09:06] LABS: Pathologist Review Reviewed
--- NOTE | 2018-12-29 10:00 | EKG12_ITS ---
Test Reason : AM EKG Blood Pressure : / mmHG Vent. Rate : 072 BPM Atrial Rate : 072 BPM P-R Int : 158 ms QRS Dur : 110 ms QT Int : 394 ms P-R-T Axes : 037 -32 091 degrees QTc Int : 431 ms Normal sinus rhythm Left axis deviation Incomplete left bundle branch block Nonspecific T wave abnormality Abnormal ECG Confirmed by VANITA PASCUAL, JUSTYN ([id number]), video effects editor NILA BELCHER ([id number]) on 01/02/2019 2:48:32 PM Referred By: Jack Abraham Confirmed By:JUSTYN WALDRON MD
[2018-12-29 13:56] LABS: Bedside Glucose 98 mg/dL (70-110)
--- NOTE | 2018-12-29 18:22 | ED.VISSUMM ---
- ER Visit Summary Date of Service: 12/27/18 Chief Complaint: Weakness History of Present Illness: The patient is a 83 M who presents with weakness that is been getting worse over the past 4 days. Patient states he recently diagnosed with an infection in his kidneys and right testicle. Patient was given a prescription for Cipro and meclizine. Patient fell today and had difficulty getting up after the fall. Patient states his pain is worse with walking and standing. Patient admits to some hematuria but denies any dysuria. Patient admits to some nausea and vomiting. Physical Examination: Vital signs are stable. Patient is afebrile. Patient is in no acute distress. Oral mucosa is pink and moist. Neck is supple. Trachea is midline. No JVD noted. Heart was regular rate and rhythm. Lungs are clear and equal bilateral. Abdomen is soft and nontender. Cranial nerves II through XII are intact. There are no focal motor or sensory deficits noted. The remaining physical exam is within normal limits. Test Results: Chest x-ray shows cardiomegaly but no acute infiltrate. CT scan of the brain was obtained. There is no acute intracranial process noted. EKG showed normal sinus rhythm. There are no acute ST or T wave changes. This was unchanged compared to previous EKG dated 11/28/2015. CBC shows a leukocytosis of 15.6. Lactate was normal at 1.7. Bilirubin was elevated at 3.1. Troponin was slightly elevated at 0.145. Emergency Department Course and Treatment: Patient was given aspirin here. Case was discussed with the hospitalist. He was in to evaluate the patient. He will admit the patient to his service. Patient and family understood and were agreeable with the plan. All questions were answered. Disposition: Admit to hospital Impression: 1. General weakness 2. Elevated troponin This note was generated with [employer] dictation software. It may contain incorrect words, spelling, and punctuation that were not noted in review of the chart prior to signing ED Disposition - Plan for ED Patient: Disposition: Acute Care Hospital [facility] Diagnosis: General weakness, Troponin level elevated
--- NOTE | 2018-12-29 18:26 | ED.DCSUM_ITS ---
- ER Visit Summary Date of Service: 12/27/18 Chief Complaint: Weakness History of Present Illness: The patient is a 83 M who presents with weakness that is been getting worse over the past 4 days. Patient states he recently diagnosed with an infection in his kidneys and right testicle. Patient was given a prescription for Cipro and meclizine. Patient fell today and had difficulty getting up after the fall. Patient states his pain is worse with walking and standing. Patient admits to some hematuria but denies any dysuria. Patient admits to some nausea and vomiting. Physical Examination: Vital signs are stable. Patient is afebrile. Patient is in no acute distress. Oral mucosa is pink and moist. Neck is supple. Trachea is midline. No JVD noted. Heart was regular rate and rhythm. Lungs are clear and equal bilateral. Abdomen is soft and nontender. Cranial nerves II through XII are intact. There are no focal motor or sensory deficits noted. The remaining physical exam is within normal limits. Test Results: Chest x-ray shows cardiomegaly but no acute infiltrate. CT scan of the brain was obtained. There is no acute intracranial process noted. EKG showed normal sinus rhythm. There are no acute ST or T wave changes. This was unchanged compared to previous EKG dated 11/28/2015. CBC shows a leukocytosis of 15.6. Lactate was normal at 1.7. Bilirubin was elevated at 3.1. Troponin was slightly elevated at 0.145. Emergency Department Course and Treatment: Patient was given aspirin here. Case was discussed with the hospitalist. He was in to evaluate the patient. He will admit the patient to his service. Patient and family understood and were agreeable with the plan. All questions were answered. Disposition: Admit to hospital Impression: 1. General weakness 2. Elevated troponin This note was generated with [employer] dictation software. It may contain incorrect words, spelling, and punctuation that were not noted in review of the chart prior to signing ED Disposition - Plan for ED Patient: Disposition: Acute Care Hospital [facility] Diagnosis: General weakness, Troponin level elevated
--- NOTE | 2018-12-30 16:33 | CASEMGMT ---
TERESITA SUAREZ Discharge F/U Phone Call Strata: 3 Discharge date: 12/29/18 Call date: 12/30/18 Call time: [phone] Attempted to reach pt without success at this time, message left for pt to call this RN CM back if able. SStaten RN CM Admission dx: Sepsis, Orchitis, Elevated troponin
== END 2018-12-29 13:45 | disposition home or self-care (01) | DRG 853 ==
LOC: ED 21:25 → PCU 12-28 00:25 → ICU 12-28 10:22
PROVIDERS: Internal Medicine Cardiovascular Disease; Emergency Provider Emergency Medicine; Family Provider Family Medicine; PCP Family Medicine; Visit Provider Internal Medicine
DX: A41.9 Sepsis, unspecified organism (principal); I21.4 Non-ST elevation (NSTEMI) myocardial infarction; N39.0 Urinary tract infection, site not specified; I50.22 Chronic systolic (congestive) heart failure; H65.91 Unspecified nonsuppurative otitis media, right ear; I25.2 Old myocardial infarction; Z95.5 Presence of coronary angioplasty implant and graft; I25.10 Atherosclerotic heart disease of native coronary artery without angina pectoris; Z79.82 Long term (current) use of aspirin; Z79.02 Long term (current) use of antithrombotics/antiplatelets; I25.5 Ischemic cardiomyopathy; E78.5 Hyperlipidemia, unspecified; Z95.810 Presence of automatic (implantable) cardiac defibrillator; I11.0 Hypertensive heart disease with heart failure; D50.9 Iron deficiency anemia, unspecified; Z90.49 Acquired absence of other specified parts of digestive tract; N43.3 Hydrocele, unspecified; N45.3 Epididymo-orchitis
CPT/HCPCS: 36415; 70450; 71046; 76705; 76870; 80048; 80053; 81001; 82140; 82962; 83605; 84484; 85025; 85027; 85347; 87040; 87086; 87088; 92928; 93005; 93306; 93458; 93571; 93976; 97161; 97165; 97802; 99152; 99153; 99285; J0153; J7030; Q9957; A4216; C1725; C1769; C1874; C1887; C8929; C9600; J0696; J2405; Q9967

== ENCOUNTER 2019-01-30 22:54 | Observation (INO) | payer MEDICARE, SELFPAY ==
[2018-12-28 01:14] VITALS: BMI 22.4
[2018-12-28 14:17] VITALS: BMI 22.3
[2019-01-30 22:54] VITALS: BP 155/71; PULSE 62; RESP 18; TEMP 36.3; O2SAT 98; BMI 22.9
--- NOTE | 2019-01-30 23:04 | CT_ITS ---
STUDY: CT ABDOMEN AND PELVIS WITHOUT CONTRAST REASON FOR EXAM: Male, 84 years old. Mid abdominal pain for 2 hours. Patient has history of appendectomy. RADIATION DOSAGE (If Supplied By Facility): CTDIvol = ( 6.08 ) mGy, DLP = ( 285.59 ) mGycm TECHNIQUE: Transaxial images were obtained from the dome of the diaphragm to the symphysis pubis without oral contrast, and without intravenous contrast. Sagittal and coronal images were reconstructed. Individualized dose optimization techniques were used for this CT. COMPARISON: CT of abdomen and pelvis dated May 16, 2016. FINDINGS: The visualized lung bases are unremarkable. The visualized portions of the heart are within normal limits. Patient has an intracardiac pacemaker and defibrillator. Normal liver. There is non-visualization of the gallbladder, which may be secondary to either contraction or a prior cholecystectomy. Normal spleen. There is diffuse atrophy of the pancreas. Normal bilateral adrenal glands. There is a large cyst arising from the upper pole of the right kidney measuring up to 6.5 cm in greatest dimension. This is probably unchanged since the previous CT. There is mild bilateral perinephric stranding. There is no evidence for hemorrhage necrosis, hydroureter or radiopaque ureteral calculi. The stomach is very distended with gas. There is dilated small bowel with maximum transverse dimension of approximately 4.5 cm. There is stool visible within the dilated bowel suggesting fecal stasis. The distal small bowel was not dilated with a transition probably occurring within the jejunum. The colon is not dilated. Stool is visible throughout the colon. There are multiple sigmoid colon diverticula. There are surgical clips in the region of the appendix consistent with a prior appendectomy. There is mild atherosclerotic calcification of the abdominal aorta, without a demonstrated aneurysm. Normal inferior vena cava. Normal retroperitoneum. Normal urinary bladder. There are prostatic calcifications. There is a left-sided inguinal hernia containing adipose tissue. There are findings consistent with degenerative disc disease at L2-3. There is multilevel spondylosis of the lower thoracic spine. There is multilevel degenerative arthropathy of the lower lumbar spine. There are bridging osteophytes anterior to the right sacroiliac joint. CT/Abdomen/Pelvis without Cont IMPRESSION: 1. CT findings are consistent with proximal small bowel obstruction. 2. Large right-sided renal cyst. Electronically Signed: Char Chapman MD at 0:10 EDT , Service support ,
--- NOTE | 2019-01-30 23:05 | ED.VIS.GEN ---
History of Present Illness Chief Complaint: Abd Pain Narrative: Stated 2 hours ago he had gradual onset of sharp abdominal pain that waxes and wanes. He feels it everywhere but mainly in the lower part. Current severity is moderate. Worsened when the sharp pains intermittently come on. He is not having any nausea or vomiting. He has belching. Had 2 bowel movements this evening. He does not feel like he is passing much gas since the pain came on. He has had a remote bowel obstruction that was treated conservatively. Gallbladder has been out. He had a remote laparotomy as well. No home treatment. No diarrhea. No fevers or chills. No urinary symptoms. No genital pain. - Past Medical History (1) Elevated troponin Status: Acute (2) General weakness Status: Acute (3) Orchitis of right testicle Status: Acute (4) Otitis media Status: Acute (5) SBO (small bowel obstruction) Status: Acute (6) Sepsis Status: Acute (7) Abnormal result of cardiovascular function study, unspecified Status: Chronic (8) Angina pectoris Status: Chronic (9) Atherosclerotic heart disease of [place] coronary artery without angina pectoris Status: Chronic Comment: PTCA/BMS to prox LAD 08/02/2008; 12/28/2018: Successful PTCA/LAVINIA of proximal LCX with a 3.0 x 12 Promus Synergy. FFR of RCA negative per DJN @ [facility] (10) Benign prostatic hypertrophy Status: Chronic (11) Cardiomyopathy, ischemic Status: Chronic (12) Chest pain, precordial Status: Chronic (13) Chronic systolic congestive heart failure Status: Chronic (14) Dyspnea Status: Chronic (15) Essential hypertension Status: Chronic (16) Fatigue Status: Chronic (17) HLD (hyperlipidemia) Status: Chronic (18) High risk medication use Status: Chronic (19) History of placement of internal cardiac defibrillator Status: Chronic Comment: ICD Implant 04/11/2009, ICD Gen Change 04/16/2016 (20) Hyperlipidemia Status: Chronic (21) Hypokalemia Status: Chronic (22) Implantable cardioverter-defibrillator (ICD) at end of battery life Status: Chronic (23) Iron deficiency anemia Status: Chronic (24) 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 FFR of RCA negative per [facility]N @ [facility] Past Medical History - Allergies and Home Meds Allergies/Adverse Reactions: Allergies morphine Allergy (Intermediate, Verified 01/30/19 22:55) Other RASH zolpidem tartrate [From Ambien] Adverse Reaction (Intermediate, Verified 01/30/19 22:55) Other CONFUSION Primary Care Physician: Shailesh Mancini [Primary Care Provider] - Surgical History: cholecystectomy, - - heart cath with stents, had prostate surgery, abd surgery at [facility] for and abd cyst-2007 Smoking Status: Never smoker Alcohol: None Drugs: None - Family History Maternal Family History: Family History (Last Reviewed 12/28/18 @ 01:06 by Suraj Garg DO) Mother CAD (coronary artery disease) CVA (cerebral vascular accident) Myocardial infarction, Onset Age: 67 Hypertension Brother CAD (coronary artery disease) Hypertension Cancer Myocardial infarction, Onset Age: 73 Father Myocardial infarction, Onset Age: 77 Daughter Cancer Son Myocardial infarction, Onset Age: 46 Family History: Reports: No pertinent history Paternal Family History: Family History (Last Reviewed 12/28/18 @ 01:06 by Suraj Garg DO) Mother CAD (coronary artery disease) CVA (cerebral vascular accident) Myocardial infarction, Onset Age: 67 Hypertension Brother CAD (coronary artery disease) Hypertension Cancer Myocardial infarction, Onset Age: 73 Father Myocardial infarction, Onset Age: 77 Daughter Cancer Son Myocardial infarction, Onset Age: 46 Family History: Reports: No pertinent history Review of Systems General: Denies: Chills, Fever, Sweats Eyes: Denies: Visual changes - bilaterally, Diplopia ENT: Denies: Rhinorrhea, Sore throat Cardiovascular: Denies: Chest pain, Palpitations Respiratory: Denies: Dyspnea, Cough, Dyspnea on exertion Gastrointestinal: Reports: Abdominal pain. Denies: Nausea, Vomiting, Diarrhea, Melena, Hematochezia Genitourinary: Denies: Dysuria, Hematuria, Frequency Musculoskeletal: Denies: Back pain, Extremity Pain Skin: Denies: Rash, Wounds Neurological: Denies: Headache, Weakness, Numbness Physical Exam Vital Signs/Narrative: Vital Signs Temp Pulse Resp BP Pulse Ox 01/30/19 22:54 97.4 F L 62 18 155/71 H 98 General: Well nourished, Well developed, No Acute Distress Head: Normocephalic, Atraumatic Eyes: Perrl, EOMI ENT: Moist mucous membranes, No rhinorrhea Neck: Supple, Nontender Cardiovascular: Regular rate, Regular rhythm, No murmurs Respiratory: No distress, CTA bilaterally, Chest nontender Abdomen: Soft, Normal bowel sounds, Tender - Mild tenderness diffusely. Worse in the lower abdomen. No guarding or rebound. Nonsurgical abdomen. Back: Nontender, Normal Inspection Extremities: Nontender, No edema Skin: Normal color, No rash Neurological: Alert, Oriented x3, Cranial nerves II-XII grossly intact, Normal Strength, Normal Sensation Psychological: Normal affect, Normal Mood Diagnostic/Tx/Re-eval - Medical Decision Making Patient is waiting for pain. Lab work and CAT scan obtained. Lab work is essentially unremarkable. No acute abnormalities. CT of the pelvis shows a suspected small bowel obstruction with transition in the jejunal region. Positive old renal cyst. Discussed with Dr. Dougherty. NG placed. Patient discussed with the hospitalist and will be admitted. In 2016 he was able to decompress the bowel obstruction with NG only. He did not require surgery. ED Disposition - Plan for ED Patient: Diagnosis: Small bowel obstruction Referrals: Shailesh Mancini [Primary Care Provider] -
--- NOTE | 2019-01-30 23:08 | ED.DCSUM_ITS ---
History of Present Illness Chief Complaint: Abd Pain Narrative: Stated 2 hours ago he had gradual onset of sharp abdominal pain that waxes and wanes. He feels it everywhere but mainly in the lower part. Current severity is moderate. Worsened when the sharp pains intermittently come on. He is not having any nausea or vomiting. He has belching. Had 2 bowel movements this evening. He does not feel like he is passing much gas since the pain came on. He has had a remote bowel obstruction that was treated conservatively. Gallbladder has been out. He had a remote laparotomy as well. No home treatment. No diarrhea. No fevers or chills. No urinary symptoms. No genital pain. - Past Medical History (1) Elevated troponin Status: Acute (2) General weakness Status: Acute (3) Orchitis of right testicle Status: Acute (4) Otitis media Status: Acute (5) SBO (small bowel obstruction) Status: Acute (6) Sepsis Status: Acute (7) Abnormal result of cardiovascular function study, unspecified Status: Chronic (8) Angina pectoris Status: Chronic (9) Atherosclerotic heart disease of [place] coronary artery without angina pectoris Status: Chronic Comment: PTCA/BMS to prox LAD 08/02/2008; 12/28/2018: Successful PTCA/LAVINIA of proximal LCX with a 3.0 x 12 Promus Synergy. [facility] RCA [facility] (10) Benign prostatic hypertrophy Status: Chronic (11) Cardiomyopathy, ischemic Status: Chronic (12) Chest pain, precordial Status: Chronic (13) Chronic systolic congestive heart failure Status: Chronic (14) Dyspnea Status: Chronic (15) Essential hypertension Status: Chronic (16) Fatigue Status: Chronic (17) HLD (hyperlipidemia) Status: Chronic (18) High risk medication use Status: Chronic (19) History of placement of internal cardiac defibrillator Status: Chronic Comment: ICD Implant 04/11/2009, ICD Gen Change 04/16/2016 (20) Hyperlipidemia Status: Chronic (21) Hypokalemia Status: Chronic (22) Implantable cardioverter-defibrillator (ICD) at end of battery life Status: Chronic (23) Iron deficiency anemia Status: Chronic (24) 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 [facility]FR [facility] RCA negative [facility] Past Medical History - Allergies and Home Meds Allergies/Adverse Reactions: Allergies morphine Allergy (Intermediate, Verified 01/30/19 22:55) Other RASH zolpidem tartrate [From Ambien] Adverse Reaction (Intermediate, Verified 01/30/19 22:55) Other CONFUSION Primary Care Physician: Shailesh Mancini [Primary Care Provider] - Surgical History: cholecystectomy, - - heart cath with stents, had prostate surgery, abd surgery at [facility] for and abd cyst-2007 Smoking Status: Never smoker Alcohol: None Drugs: None - Family History Maternal Family History: Family History (Last Reviewed 12/28/18 @ 01:06 by Suraj Garg DO) Mother CAD (coronary artery disease) CVA (cerebral vascular accident) Myocardial infarction, Onset Age: 67 Hypertension Brother CAD (coronary artery disease) Hypertension Cancer Myocardial infarction, Onset Age: 73 Father Myocardial infarction, Onset Age: 77 Daughter Cancer Son Myocardial infarction, Onset Age: 46 Family History: Reports: No pertinent history Paternal Family History: Family History (Last Reviewed 12/28/18 @ 01:06 by Suraj Garg DO) Mother CAD (coronary artery disease) CVA (cerebral vascular accident) Myocardial infarction, Onset Age: 67 Hypertension Brother CAD (coronary artery disease) Hypertension Cancer Myocardial infarction, Onset Age: 73 Father Myocardial infarction, Onset Age: 77 Daughter Cancer Son Myocardial infarction, Onset Age: 46 Family History: Reports: No pertinent history Review of Systems General: Denies: Chills, Fever, Sweats Eyes: Denies: Visual changes - bilaterally, Diplopia ENT: Denies: Rhinorrhea, Sore throat Cardiovascular: Denies: Chest pain, Palpitations Respiratory: Denies: Dyspnea, Cough, Dyspnea on exertion Gastrointestinal: Reports: Abdominal pain. Denies: Nausea, Vomiting, Diarrhea, Melena, Hematochezia Genitourinary: Denies: Dysuria, Hematuria, Frequency Musculoskeletal: Denies: Back pain, Extremity Pain Skin: Denies: Rash, Wounds Neurological: Denies: Headache, Weakness, Numbness Physical Exam Vital Signs/Narrative: Vital Signs Temp Pulse Resp BP Pulse Ox 01/30/19 22:54 97.4 F L 62 18 155/71 H 98 General: Well nourished, Well developed, No Acute Distress Head: Normocephalic, Atraumatic Eyes: Perrl, EOMI ENT: Moist mucous membranes, No rhinorrhea Neck: Supple, Nontender Cardiovascular: Regular rate, Regular rhythm, No murmurs Respiratory: No distress, CTA bilaterally, Chest nontender Abdomen: Soft, Normal bowel sounds, Tender - Mild tenderness diffusely. Worse in the lower abdomen. No guarding or rebound. Nonsurgical abdomen. Back: Nontender, Normal Inspection Extremities: Nontender, No edema Skin: Normal color, No rash Neurological: Alert, Oriented x3, Cranial nerves II-XII grossly intact, Normal Strength, Normal Sensation Psychological: Normal affect, Normal Mood Diagnostic/Tx/Re-eval - Medical Decision Making Patient is waiting for pain. Lab work and CAT scan obtained. Lab work is essentially unremarkable. No acute abnormalities. CT of the pelvis shows a suspected small bowel obstruction with transition in the jejunal region. Posi tive old renal cyst. Discussed with Dr. Dougherty. NG placed. Patient discussed with the hospitalist and will be admitted. In 2016 he was able to decompress the bowel obstruction with NG only. He did not require surgery. ED Disposition - Plan for ED Patient: Diagnosis: Small bowel obstruction Referrals: Shailesh Mancini [Primary Care Provider] -
[2019-01-30 23:24] LABS: Bacteria 0 SEEN /hpf (None Seen); Mucous, Urine 0 SEEN /hpf (<or=2+); Red Blood Cells-Urine 0 SEEN /hpf (0-5); White Blood Cells 0 SEEN /hpf (0-5)
[2019-01-30 23:27] LABS: Absolute Lymphocyte Count 2.09 X10^3/ul (0.83-4.51); Absolute Neutrophil Count 4.2 X10^3/uL (2.0-7.7); Basophil# 0.02 X10^3/uL; Basophil% 0.3 % (0-1); Eosinophils% 5.3 % (0-5); Hematocrit 36.2 % (40-54); Lymphocyte # 2.09 X10^3/ul (4.0); Lymphocyte % 27.7 % (19-41); Mean Corp Hgb Conc 33.1 g/gl (32-36); Mean Corpuscular Hgb 30.5 pg (27.0-32.0); Mean Corpuscular Volume 91.9 fL (80-94); Monocyte# 0.85 X10^3/uL; Monocyte% 11.3 % (0-10); Neutrophil # 4.17 X10^3/uL (2.7-7.7); Neutrophil % 55.3 % (47-70); Platelet Count 179 K/mm3 (150-450); RBC Distribution Width CV 14.5 % (11.6-14.6); RBC Distribution Width SD 47.4 fl (35.1-43.9); Red Blood Count 3.94 M/mm3 (4.6-6.2); White Blood Count 7.5 K/mm3 (4.4-11.0)
[2019-01-30 23:29] LABS: POSITIVE COUNT NO; POSITIVE DIFFERENTIAL NO; POSITIVE MORPHOLOGY NO
[2019-01-30 23:40] LABS: ALB/GLOB Ratio 1.1 RATIO (0.9-2.4); AST(SGOT) 20 U/L (15-37); Alanine Aminotransfer ALT/SGPT 22 U/L (16-61); Alkaline Phosphatase 56 U/L (45-117); Anion Gap 3 (5-15); BUN 12 mg/dL (7-18); BUN/Creat Ratio 13.7 RATIO (10-20); Calcium,Total 8.2 mg/dL (8.5-10.1); Chloride 107 mmol/L (98-107); Creatinine, Serum 0.87 mg/dL (0.70-1.30); EST Glomerular Filtration Rate 89 mL/min (>60); Est Glom Filt Rate - Afr Amer 107 mL/min (>60); Estimated Creatinine Clearance 51.78 ml/min; Globulin 3.5 g/dL (2.2-4.2); Glucose 96 mg/dL (74-106); Lipase 122 U/L (73-393); Potassium 3.8 mmol/L (3.5-5.1); Protein, Total 7.5 g/dL (6.4-8.2); Sodium Level 139 mmol/L (136-145)
[2019-01-30 23:54] LABS: Color, Urine Yellow (Yellow); Glucose, Dipstick NEGATIVE (Normal); Ketone-Dipstick Negative (Negative); Leukocyte Esterase-Dipstick Negative /ul (Negative); Nitrite-Dipstick Negative (Negative); Occult Blood-Urine Negative /ul (Negative); Protein-Dipstick Negative (Negative); Specific Gravity, Urine 1.015 (1.002-1.030); Squamous Epithelial Cells - UA 0-5 SEEN /hpf (0-5); Urine Bilirubin Dipstick Negative (Negative); Urine Clarity Clear (Clear); Urine Urobilinogen Normal (Normal)
[2019-01-30] MEDS: fentaNYL 100 MCG/2 ML Ampul 25 MCG IV (23:58)
--- NOTE | 2019-01-31 00:50 | PCM.HP.STD ---
Problem List (1) Stented coronary artery Status: Chronic Comment: PTCA/BMS to prox LAD 08/02/2008; 12/28/2018: Successful PTCA/LAVINIA of proximal LCX with a 3.0 x 12 Promus Synergy. 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 Onset was at 10:00 pm on 01/30. He describes the pain as moderate at this time and is generalized over the abdomen. He has a history of gall bladder surgery and remote laparotomy and has had previous SBO treated conservatively. He denies nausea at present but staes his first dose of fentanyl was ineffective. He has a significant history of coronary artery disease. No chest pain presently. He will be admitted for SBO seen on CT scan. Surgery will be consulted and NG tube placed to low intermittent suction. He state he had a mild rash with morphine but no shortness of breath with it many years ago. Past Medical History Past Medical History (Chronic Problems): Chronic Problems (Last Updated 12/29/18 @ 10:50 by Alexia Alexander) Stented coronary artery (Chronic ~12/28/18) PTCA/BMS to prox LAD 08/02/2008; 12/28/2018: Successful PTCA/LAVINIA of proximal LCX with a 3.0 x 12 Promus Synergy. FFR of RCA negative per [facility]N @ [facility] 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) Essential hypertension (Chronic) History of placement of internal cardiac defibrillator (Chronic) ICD Implant 04/11/2009, ICD Gen Change 04/16/2016 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 (Chronic) Cardiomyopathy, ischemic (Chronic) Chronic systolic congestive heart failure (Chronic) HLD (hyperlipidemia) (Chronic) Abnormal result of cardiovascular function study, unspecified (Chronic) High risk medication use (Chronic) Iron deficiency anemia (Chronic) Chest pain, precordial (Chronic) Atherosclerotic heart disease of [place] coronary artery without angina pectoris (Chronic) PTCA/BMS to prox LAD 08/02/2008; 12/28/2018: Successful PTCA/LAVINIA of proximal LCX with a 3.0 x 12 Promus Synergy. FFR of RCA negative per [facility] @ [facility] Dyspnea (Chronic) Fatigue (Chronic) Hypokalemia (Chronic) Hyperlipidemia (Chronic) Benign prostatic hypertrophy (Chronic) Medical History: Medical History (Last Updated 12/29/18 @ 10:50 by Alexia Alexander) 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) Z45.09 Essential hypertension (Chronic) I10 History of placement of internal cardiac defibrillator (Chronic) Z95.810 ICD Implant 04/11/2009, ICD Gen Change 04/16/2016 Old myocardial infarction (Chronic) I25.2 Angina pectoris (Chronic) I20.9 Cardiomyopathy, ischemic (Chronic) I25.5 Chronic systolic congestive heart failure (Chronic) I50.22 HLD (hyperlipidemia) (Chronic) E78.5 Abnormal result of cardiovascular function study, unspecified (Chronic) R94.30 High risk medication use (Chronic) Z79.899 Iron deficiency anemia (Chronic) D50.9 Chest pain, precordial (Chronic) R07.2 Atherosclerotic heart disease of [place] coronary artery without angina pectoris (Chronic) I25.10 PTCA/BMS to prox LAD 08/02/2008; 12/28/2018: Successful PTCA/LAVINIA of proximal LCX with a 3.0 x 12 Promus Synergy. FFR of RCA negative per [facility] @ [facility] Dyspnea (Chronic) R06.00 Fatigue (Chronic) R53.83 Hypokalemia (Chronic) E87.6 GERD (gastroesophageal reflux disease) K21.9 FH: sudden cardiac (SCD) (Inactive) Z82.41 Family history of CVA (Inactive) Z82.3 Family history of hypertension (Inactive) Z82.49 HTN (hypertension) (Inactive) I10 Allergies morphine Allergy (Intermediate, Verified 01/30/19 22:55) Other RASH zolpidem tartrate [From Ambien] Adverse Reaction (Intermediate, Verified 01/30/19 22:55) Other CONFUSION Home Medications: Ambulatory Orders Medication Instructions Recorded Aspirin [Aspirin, Baby] 81 mg PO DAILY 03/05/16 Nitroglycerin [Nitrostat] 0.4 mg SUBLINGUAL Q5M PRN 04/15/16 diphenhydramine 25 1 tab PO QHS PRN tab 10/22/17 mg-acetaminophen 500 mg tablet carvedilol 12.5 mg tablet 12.5 mg PO BID #180 tab 10/03/18 isosorbide mononitrate ER 30 mg 30 mg PO QAM #90 tab 10/03/18 tablet,extended release 24 hr sacubitril 24 mg-valsartan 26 mg 1 tab PO BID #60 tab 11/02/18 tablet simvastatin 20 mg tablet 20 mg PO QHS #90 tab 12/05/18 clopidogrel 75 mg tablet 75 mg PO DAILY #90 tab 01/16/19 Surgical History: Surgical History (Last Updated 12/29/18 @ 11:37 by Abril Daly) Stented coronary artery (Chronic) Onset Date: ~12/28/18 Z95.5 PTCA/BMS to prox LAD 08/02/2008; 12/28/2018: Successful PTCA/LAVINIA of proximal LCX with a 3.0 x 12 Promus Synergy. FFR of RCA negative per [facility]N @ [facility] History of PTCA Onset Date: 08/02/08 Z98.61 PTCA and bare metal stent to proximal LAD History of left heart catheterization Z98.890 History of hernia repair Z98.890, Z87.19 History of prostate surgery Z98.890 X 2 S/P TURP (status post transurethral resection of prostate) Z90.79 Surgical History: cholecystectomy, - - heart cath with stents, had prostate surgery, abd surgery at [facility] for and abd cyst-2007 Smoking Status: Never smoker Alcohol: None Drugs: None - *Family History Maternal Family History: Family History (Last Reviewed 12/28/18 @ 01:06 by Suraj Garg DO) Mother CAD (coronary artery disease) CVA (cerebral vascular accident) Myocardial infarction, Onset Age: 67 Hypertension Brother CAD (coronary artery disease) Hypertension Cancer Myocardial infarction, Onset Age: 73 Father Myocardial infarction, Onset Age: 77 Daughter Cancer Son Myocardial infarction, Onset Age: 46 History Items: No pertinent history Paternal Family History: Family History (Last Reviewed 12/28/18 @ 01:06 by Suraj Garg DO) Mother CAD (coronary artery disease) CVA (cerebral vascular accident) Myocardial infarction, Onset Age: 67 Hypertension Brother CAD (coronary artery disease) Hypertension Cancer Myocardial infarction, Onset Age: 73 Father Myocardial infarction, Onset Age: 77 Daughter Cancer Son Myocardial infarction, Onset Age: 46 History Items: No pertinent history Review of Systems Constitutional: Denies: Chills, Fever, Weight Change HEENT: Denies: Head Aches, Sinus Congestion, Sinus Drainage Cardiovascular: Denies: Chest Pain, Palpitations Respiratory: Denies: Cough, Shortness of breath at rest, Sputum production Gastrointestinal: Reports: Abdominal Pain. Denies: Nausea, Vomiting Genitourinary: Denies: Dysuria Musculoskeletal: Denies: Joint Pain, Joint Tenderness Skin: Denies: Rash, Wounds Neurological: Denies: Numbness, Tingling, Focal weakness Psychiatric: Denies: Anxiety, Depression, Homicidal Ideations, Suicidal Ideations Hematologic/ Lymphatic: Denies: Easy Bruising, Easy Bleeding VTE Information - Inpt Only VTE Present on Admission: No VTE Mechan Device Prophylaxis: None VTE Pharm Prophylaxis ordered?: Yes Patient Problems: Active and Suspected Problems (Last Updated 12/29/18 @ 10:50 by Alexia Alexander) SBO (small bowel obstruction) (Acute) - Physical Exam General: Alert, Oriented x3, Cooperative HEENT: Atraumatic, Normocephalic Neck: Supple Lungs: Clear to auscultation, Normal air movement Cardiovascular: Regular rate, Normal S1, Normal S2 Abdomen: Hypoactive Bowel Sounds, Rigid, Tender Extremities: No edema Skin: No rashes Musculoskeletal: No Tenderness to Palpation of Joints or Extremities Neurological: Neuro grossly intact Psych/Mental Status: Normal Affect, Appropriate Vital Signs Temp Pulse Resp BP Pulse Ox 97.4 F L 62 18 155/71 H 98 01/30/19 22:54 01/30/19 22:54 01/30/19 22:54 01/30/19 22:54 01/30/19 22:54 Oxygen Delivery Method Room Air Weight: 129 lb 10.109 oz Body Mass Index (BMI) 22.9 Laboratory Tests Past 24 Hrs 01/30/19 01/30/19 01/30/19 23:15 23:15 23:17 WBC 7.5 RBC 3.94 L Hgb 12.0 L Hct 36.2 L MCV 91.9 MCH 30.5 MCHC 33.1 RDW 14.5 RDW Differential 47.4 H Plt Count 179 MPV 11.0 Immature Gran % (Auto) 0.100 Neut % (Auto) 55.3 Lymph % (Auto) 27.7 [place] % (Auto) 11.3 H Eos % (Auto) 5.3 H Baso % (Auto) 0.3 Absolute Neuts (auto) 4.2 Absolute Lymphs (auto) 2.09 Total Counted Not Reportable Sodium 139 Potassium 3.8 Chloride 107 Carbon Dioxide 29.0 Anion Gap 3 L BUN 12 Creatinine 0.87 Estim Creat Clear Calc 51.78 Est GFR (MDRD) Af Amer 107 Est GFR (MDRD) Non-Af 89 BUN/Creatinine Ratio 13.7 Glucose 96 Calcium 8.2 L Total Bilirubin 0.70 AST 20 ALT 22 Alkaline Phosphatase 56 Total Protein 7.5 Albumin 4.0 Globulin 3.5 Albumin/Globulin Ratio 1.1 Lipase 122 Urine Color Yellow Urine Clarity Clear Urine pH 6.0 Ur Specific Susan 1.015 Urine Protein Negative Urine Glucose (UA) NEGATIVE Urine Ketones Negative Urine Occult Blood Negative Urine Nitrite Negative Urine Bilirubin Negative Urine Urobilinogen Normal Ur Leukocyte Esterase Negative Urine RBC 0 SEEN Urine WBC 0 SEEN Ur Squamous Epith Cells 0-5 SEEN Urine Bacteria 0 SEEN Urine Mucus 0 SEEN Assessment/Plan All Active Problems (Last Updated 12/29/18 @ 10:50 by Alexia Alexander) General weakness (Acute) Sepsis (Acute) Orchitis of right testicle (Acute) Elevated troponin (Acute) Otitis media (Acute) SBO (small bowel obstruction) (Acute) Chronic Problems (Last Updated 12/29/18 @ 10:50 by Alexia Alexander) Stented coronary artery (Chronic ~12/28/18) PTCA/BMS to prox LAD 08/02/2008; 12/28/2018: Successful PTCA/LAVINIA of proximal LCX with a 3.0 x 12 Promus Synergy. FFR of RCA negative per [facility] @ [facility] 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) Essential hypertension (Chronic) History of placement of internal cardiac defibrillator (Chronic) ICD Implant 04/11/2009, ICD Gen Change 04/16/2016 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 (Chronic) Cardiomyopathy, ischemic (Chronic) Chronic systolic congestive heart failure (Chronic) HLD (hyperlipidemia) (Chronic) Abnormal result of cardiovascular function study, unspecified (Chronic) High risk medication use (Chronic) Iron deficiency anemia (Chronic) Chest pain, precordial (Chronic) Atherosclerotic heart disease of [place] coronary artery without angina pectoris (Chronic) PTCA/BMS to prox LAD 08/02/2008; 12/28/2018: Successful PTCA/LAVINIA of proximal LCX with a 3.0 x 12 Promus Synergy. FFR of RCA negative per [facility]N @ [facility] Dyspnea (Chronic) Fatigue (Chronic) Hypokalemia (Chronic) Hyperlipidemia (Chronic) Benign prostatic hypertrophy (Chronic) Plan 1. Small Bowel Obstruction-- NPO, consult Dr Dougherty, NG tube to low int suction, Dilaudid 0.5mg IV q2 hrs prn, Phenergan 12.5mg IV q 6 hrs prn nause or irritation in throat by NG tube. IV normal saline at 100cc/hour, CBC, CMP in am Will hold routine medications while NPO and monitor DVT prophylaxis- LMWH Code Visit Inpatient E&M: 52464 Init Hosp L3
[2019-01-31] MEDS: HYDROmorphone 0.5 MG/0.5 ML SYRINGE IV (00:52)
[2019-01-31] MEDS: 0.9% Normal Saline 1,000 ML 1000 ML IV (00:52)
--- NOTE | 2019-01-31 00:54 | HP.PCM_ITS ---
Problem List (1) Stented coronary artery Status: Chronic Comment: PTCA/BMS to prox LAD 08/02/2008; 12/28/2018: Successful PTCA/LAVINIA of proximal LCX with a 3.0 x 12 Promus Synergy. FFR of RCA negative per DJN @ [facility] (2) Implantable cardioverter-defibrillator (ICD) at end of battery life Status: Chronic (3) Essential hypertension Status: Chronic (4) Old myocardial infarction Status: Chronic (5) Chronic systolic congestive heart failure Status: Chronic (6) HLD (hyperlipidemia) Status: Chronic (7) SBO (small bowel obstruction) Status: Acute History of Present Illness Date of Admission: 01/31/19 Chief Complaint: abdominal pain The patient is a 84 year old male patient who presents to the ER with abdominal pain. Onset was at 10:00 pm on 01/30. He describes the pain as moderate at this time and is generalized over the abdomen. He has a history of gall bladder surgery and remote laparotomy and has had previous SBO treated conservatively. He denies nausea at present but staes his first dose of fentanyl was ineffective. He has a significant history of coronary artery disease. No chest pain presently. He will be admitted for SBO seen on CT scan. Surgery will be consulted and NG tube placed to low intermittent suction. He state he had a mild rash with morphine but no shortness of breath with it many years ago. Past Medical History Past Medical History (Chronic Problems): Chronic Problems (Last Updated 12/29/18 @ 10:50 by Alexia Alexander) Stented coronary artery (Chronic ~12/28/18) PTCA/BMS to prox LAD 08/02/2008; 12/28/2018: Successful PTCA/LAVINIA of proximal LCX with a 3.0 x 12 Promus Synergy. FFR of RCA negative per DJN @ [facility] 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) Essential hypertension (Chronic) History of placement of internal cardiac defibrillator (Chronic) ICD Implant 04/11/2009, ICD Gen Change 04/16/2016 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 (Chronic) Cardiomyopathy, ischemic (Chronic) Chronic systolic congestive heart failure (Chronic) HLD (hyperlipidemia) (Chronic) Abnormal result of cardiovascular function study, unspecified (Chronic) High risk medication use (Chronic) Iron deficiency anemia (Chronic) Chest pain, precordial (Chronic) Atherosclerotic heart disease of [place] coronary artery without angina pectoris (Chronic) PTCA/BMS to prox LAD 08/02/2008; 12/28/2018: Successful PTCA/LAVINIA of proximal LCX with a 3.0 x 12 Promus Synergy. FFR of RCA negative per [facility] @ [facility] Dyspnea (Chronic) Fatigue (Chronic) Hypokalemia (Chronic) Hyperlipidemia (Chronic) Benign prostatic hypertrophy (Chronic) Medical History: Medical History (Last Updated 12/29/18 @ 10:50 by Alexia Alexander) 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) Z45.09 Essential hypertension (Chronic) I10 History of placement of internal cardiac defibrillator (Chronic) Z95.810 ICD Implant 04/11/2009, ICD Gen Change 04/16/2016 Old myocardial infarction (Chronic) I25.2 Angina pectoris (Chronic) I20.9 Cardiomyopathy, ischemic (Chronic) I25.5 Chronic systolic congestive heart failure (Chronic) I50.22 HLD (hyperlipidemia) (Chronic) E78.5 Abnormal result of cardiovascular function study, unspecified (Chronic) R94.30 High risk medication use (Chronic) Z79.899 Iron deficiency anemia (Chronic) D50.9 Chest pain, precordial (Chronic) R07.2 Atherosclerotic heart disease of [place] coronary artery without angina pectoris (Chronic) I25.10 PTCA/BMS to prox LAD 08/02/2008; 12/28/2018: Successful PTCA/LAVINIA of proximal LCX with a 3.0 x 12 Promus Synergy. FFR of RCA negative per [facility] @ [facility] Dyspnea (Chronic) R06.00 Fatigue (Chronic) R53.83 Hypokalemia (Chronic) E87.6 GERD (gastroesophageal reflux disease) K21.9 FH: sudden cardiac (SCD) (Inactive) Z82.41 Family history of CVA (Inactive) Z82.3 Family history of hypertension (Inactive) Z82.49 HTN (hypertension) (Inactive) I10 Allergies morphine Allergy (Intermediate, Verified 01/30/19 22:55) Other RASH zolpidem tartrate [From Ambien] Adverse Reaction (Intermediate, Verified 01/30/19 22:55) Other CONFUSION Home Medications: Ambulatory Orders Medication Instructions Recorded Aspirin [Aspirin, Baby] 81 mg PO DAILY 03/05/16 Nitroglycerin [Nitrostat] 0.4 mg SUBLINGUAL Q5M PRN 04/15/16 diphenhydramine 25 1 tab PO QHS PRN tab 10/22/17 mg-acetaminophen 500 mg tablet carvedilol 12.5 mg tablet 12.5 mg PO BID #180 tab 10/03/18 isosorbide mononitrate ER 30 mg 30 mg PO QAM #90 tab 10/03/18 tablet,extended release 24 hr sacubitril 24 mg-valsartan 26 mg 1 tab PO BID #60 tab 11/02/18 tablet simvastatin 20 mg tablet 20 mg PO QHS #90 tab 12/05/18 clopidogrel 75 mg tablet 75 mg PO DAILY #90 tab 01/16/19 Surgical History: Surgical History (Last Updated 12/29/18 @ 11:37 by Abril Daly) Stented coronary artery (Chronic) Onset Date: ~12/28/18 Z95.5 PTCA/BMS to prox LAD 08/02/2008; 12/28/2018: Successful PTCA/LAVINIA of proximal LCX with a 3.0 x 12 Promus Synergy. FFR of RCA negative per DJN @ [facility] History of PTCA Onset Date: 08/02/08 Z98.61 PTCA and bare metal stent to proximal LAD History of left heart catheterization Z98.890 History of hernia repair Z98.890, Z87.19 History of prostate surgery Z98.890 X 2 S/P TURP (status post transurethral resection of prostate) Z90.79 Surgical History: cholecystectomy, - - heart cath with stents, had prostate surgery, abd surgery at [facility] for and abd cyst-2007 Smoking Status: Never smoker Alcohol: None Drugs: None - *Family History Maternal Family History: Family History (Last Reviewed 12/28/18 @ 01:06 by Suraj Garg DO) Mother CAD (coronary artery disease) CVA (cerebral vascular accident) Myocardial infarction, Onset Age: 67 Hypertension Brother CAD (coronary artery disease) Hypertension Cancer Myocardial infarction, Onset Age: 73 Father Myocardial infarction, Onset Age: 77 Daughter Cancer Son Myocardial infarction, Onset Age: 46 History Items: No pertinent history Paternal Family History: Family History (Last Reviewed 12/28/18 @ 01:06 by Suraj Garg DO) Mother CAD (coronary artery disease) CVA (cerebral vascular accident) Myocardial infarction, Onset Age: 67 Hypertension Brother CAD (coronary artery disease) Hypertension Cancer Myocardial infarction, Onset Age: 73 Father Myocardial infarction, Onset Age: 77 Daughter Cancer Son Myocardial infarction, Onset Age: 46 History Items: No pertinent history Review of Systems Constitutional: Denies: Chills, Fever, Weight Change HEENT: Denies: Head Aches, Sinus Congestion, Sinus Drainage Cardiovascular: Denies: Chest Pain, Palpitations Respiratory: Denies: Cough, Shortness of breath at rest, Sputum production Gastrointestinal: Reports: Abdominal Pain. Denies: Nausea, Vomiting Genitourinary: Denies: Dysuria Musculoskeletal: Denies: Joint Pain, Joint Tenderness Skin: Denies: Rash, Wounds Neurological: Denies: Numbness, Tingling, Focal weakness Psychiatric: Denies: Anxiety, Depression, Homicidal Ideations, Suicidal Ideations Hematologic/ Lymphatic: Denies: Easy Bruising, Easy Bleeding VTE Information - Inpt Only VTE Present on Admission: No VTE Mechan Device Prophylaxis: None VTE Pharm Prophylaxis ordered?: Yes Patient Problems: Active and Suspected Problems (Last Updated 12/29/18 @ 10:50 by Alexia Alexander) SBO (small bowel obstruction) (Acute) - Physical Exam General: Alert, Oriented x3, Cooperative HEENT: Atraumatic, Normocephalic Neck: Supple Lungs: Clear to auscultation, Normal air movement Cardiovascular: Regular rate, Normal S1, Normal S2 Abdomen: Hypoactive Bowel Sounds, Rigid, Tender Extremities: No edema Skin: No rashes Musculoskeletal: No Tenderness to Palpation of Joints or Extremities Neurological: Neuro grossly intact Psych/Mental Status: Normal Affect, Appropriate Vital Signs Temp Pulse Resp BP Pulse Ox 97.4 F L 62 18 155/71 H 98 01/30/19 22:54 01/30/19 22:54 01/30/19 22:54 01/30/19 22:54 01/30/19 22:54 Oxygen Delivery Method Room Air Weight: 129 lb 10.109 oz Body Mass Index (BMI) 22.9 Laboratory Tests Past 24 Hrs 01/30/19 01/30/19 01/30/19 23:15 23:15 23:17 WBC 7.5 RBC 3.94 L Hgb 12.0 L Hct 36.2 L MCV 91.9 MCH 30.5 MCHC 33.1 RDW 14.5 RDW Differential 47.4 H Plt Count 179 MPV 11.0 Immature Gran % (Auto) 0.100 Neut % (Auto) 55.3 Lymph % (Auto) 27.7 [place] % (Auto) 11.3 H Eos % (Auto) 5.3 H Baso % (Auto) 0.3 Absolute Neuts (auto) 4.2 Absolute Lymphs (auto) 2.09 Total Counted Not Reportable Sodium 139 Potassium 3.8 Chloride 107 Carbon Dioxide 29.0 Anion Gap 3 L BUN 12 Creatinine 0.87 Estim Creat Clear Calc 51.78 Est GFR (MDRD) Af Amer 107 Est GFR (MDRD) Non-Af 89 BUN/Creatinine Ratio 13.7 Glucose 96 Calcium 8.2 L Total Bilirubin 0.70 AST 20 ALT 22 Alkaline Phosphatase 56 Total Protein 7.5 Albumin 4.0 Globulin 3.5 Albumin/Globulin Ratio 1.1 Lipase 122 Urine Color Yellow Urine Clarity Clear Urine pH 6.0 Ur Specific [place] 1.015 Urine Protein Negative Urine Glucose (UA) NEGATIVE Urine Ketones Negative Urine Occult Blood Negative Urine Nitrite Negative Urine Bilirubin Negative Urine Urobilinogen Normal Ur Leukocyte Esterase Negative Urine RBC 0 SEEN Urine WBC 0 SEEN Ur Squamous Epith Cells 0-5 SEEN Urine Bacteria 0 SEEN Urine Mucus 0 SEEN Assessment/Plan All Active Problems (Last Updated 12/29/18 @ 10:50 by Alexia Alexander) General weakness (Acute) Sepsis (Acute) Orchitis of right testicle (Acute) Elevated troponin (Acute) Otitis media (Acute) SBO (small bowel obstruction) (Acute) Chronic Problems (Last Updated 12/29/18 @ 10:50 by Alexia Alexander) Stented coronary artery (Chronic ~12/28/18) PTCA/BMS to prox LAD 08/02/2008; 12/28/2018: Successful PTCA/LAVINIA of proximal LCX with a 3.0 x 12 Promus Synergy. FFR of RCA negative per [facility] @ [facility] 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) Essential hypertension (Chronic) History of placement of internal cardiac defibrillator (Chronic) ICD Implant 04/11/2009, ICD Gen Change 04/16/2016 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 (Chronic) Cardiomyopathy, ischemic (Chronic) Chronic systolic congestive heart failure (Chronic) HLD (hyperlipidemia) (Chronic) Abnormal result of cardiovascular function study, unspecified (Chronic) High risk medication use (Chronic) Iron deficiency anemia (Chronic) Chest pain, precordial (Chronic) Atherosclerotic heart disease of [place] coronary artery without angina pectoris (Chronic) PTCA/BMS to prox LAD 08/02/2008; 12/28/2018: Successful PTCA/LAVINIA of proximal LCX with a 3.0 x 12 Promus Synergy. FFR of RCA negative per DJN @ [facility] Dyspnea (Chronic) Fatigue (Chronic) Hypokalemia (Chronic) Hyperlipidemia (Chronic) Benign prostatic hypertrophy (Chronic) Plan 1. Small Bowel Obstruction-- NPO, consult Dr Dougherty, NG tube to low int suction, Dilaudid 0.5mg IV q2 hrs prn, Phenergan 12.5mg IV q 6 hrs prn nause or irritation in throat by NG tube. IV normal saline at 100cc/hour, CBC, CMP in am Will hold routine medications while NPO and monitor DVT prophylaxis- LMWH Code Visit Inpatient E&M: 71553 Init Hosp L3
--- NOTE | 2019-01-31 01:06 | PCM.CONS.GEN ---
Reason for Consult Date of Consultation: 01/31/19 History of Present Illness: The patient is a 84 year old M presented to the ER due to crampy abdominal pain started about 10 PM. Patient workup included CT abdomen pelvis which did show gas distended stomach, dilated proximal small bowel consistent with small bowel obstruction. Patient states he is previously had one a few years ago that was treated without surgery. Patient's past surgical history includes an open cholecystectomy, appendectomy, biopsy of mesenteric growth per patient was negative for cancer done at [facility] in . Patient states he has been burping a lot denies any current flatus states he last ate about 5 PM denies any nausea or vomiting. Patient states that for years he has had issues when he eats he has a lot of gas and will have a bloating sensation then after burping that will improve. Patient complains of bloating states his worse pain is in the left lower quadrant area. Patient was recently in the hospital at the end of December 2018 did have a heart cath along with a drug-eluting stent. Past Medical History Past Medical History (Chronic Problems): Chronic Problems (Last Updated 12/29/18 @ 10:50 by Alexia Alexander) Stented coronary artery (Chronic ~12/28/18) PTCA/BMS to prox LAD 08/02/2008; 12/28/2018: Successful PTCA/LAVINIA of proximal LCX with a 3.0 x 12 Promus Synergy. FFR of RCA negative per DJN @ [facility] 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) Essential hypertension (Chronic) History of placement of internal cardiac defibrillator (Chronic) ICD Implant 04/11/2009, ICD Gen Change 04/16/2016 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 (Chronic) Cardiomyopathy, ischemic (Chronic) Chronic systolic congestive heart failure (Chronic) HLD (hyperlipidemia) (Chronic) Abnormal result of cardiovascular function study, unspecified (Chronic) High risk medication use (Chronic) Iron deficiency anemia (Chronic) Chest pain, precordial (Chronic) Atherosclerotic heart disease of [place] coronary artery without angina pectoris (Chronic) PTCA/BMS to prox LAD 08/02/2008; 12/28/2018: Successful PTCA/LAVINIA of proximal LCX with a 3.0 x 12 Promus Synergy. FFR of RCA negative per DJN @ [facility] Dyspnea (Chronic) Fatigue (Chronic) Hypokalemia (Chronic) Hyperlipidemia (Chronic) Benign prostatic hypertrophy (Chronic) Medical History: Medical History (Last Updated 12/29/18 @ 10:50 by Alexia Alexander) 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) Z45.09 Essential hypertension (Chronic) I10 History of placement of internal cardiac defibrillator (Chronic) Z95.810 ICD Implant 04/11/2009, ICD Gen Change 04/16/2016 Old myocardial infarction (Chronic) I25.2 Angina pectoris (Chronic) I20.9 Cardiomyopathy, ischemic (Chronic) I25.5 Chronic systolic congestive heart failure (Chronic) I50.22 HLD (hyperlipidemia) (Chronic) E78.5 Abnormal result of cardiovascular function study, unspecified (Chronic) R94.30 High risk medication use (Chronic) Z79.899 Iron deficiency anemia (Chronic) D50.9 Chest pain, precordial (Chronic) R07.2 Atherosclerotic heart disease of [place] coronary artery without angina pectoris (Chronic) I25.10 PTCA/BMS to prox LAD 08/02/2008; 12/28/2018: Successful PTCA/LAVINIA of proximal LCX with a 3.0 x 12 Promus Synergy. FFR of RCA negative per DJN @ [facility] Dyspnea (Chronic) R06.00 Fatigue (Chronic) R53.83 Hypokalemia (Chronic) E87.6 GERD (gastroesophageal reflux disease) K21.9 FH: sudden cardiac (SCD) (Inactive) Z82.41 Family history of CVA (Inactive) Z82.3 Family history of hypertension (Inactive) Z82.49 HTN (hypertension) (Inactive) I10 Allergies morphine Allergy (Intermediate, Verified 01/30/19 22:55) Other RASH zolpidem tartrate [From Ambien] Adverse Reaction (Intermediate, Verified 01/30/19 22:55) Other CONFUSION Home Medications: Ambulatory Orders Medication Instructions Recorded RX: Aspirin [Aspirin, Baby] 81 mg PO DAILY 03/05/16 RX: Nitroglycerin [Nitrostat] 0.4 mg SUBLINGUAL Q5M PRN 04/15/16 diphenhydramine 25 2 tab PO QHS PRN tab 10/22/17 mg-acetaminophen 500 mg tablet carvedilol 12.5 mg tablet 12.5 mg PO BID #180 tab 10/03/18 isosorbide mononitrate ER 30 mg 30 mg PO QAM #90 tab 10/03/18 tablet,extended release 24 hr sacubitril 24 mg-valsartan 26 mg 1 tab PO BID #60 tab 11/02/18 tablet simvastatin 20 mg tablet 20 mg PO QHS #90 tab 12/05/18 clopidogrel 75 mg tablet 75 mg PO DAILY #90 tab 01/16/19 Surgical History: Surgical History (Last Updated 12/29/18 @ 11:37 by Abril Daly) Stented coronary artery (Chronic) Onset Date: ~12/28/18 Z95.5 PTCA/BMS to prox LAD 08/02/2008; 12/28/2018: Successful PTCA/LAVINIA of proximal LCX with a 3.0 x 12 Promus Synergy. FFR of RCA negative per DJN @ [facility] History of PTCA Onset Date: 08/02/08 Z98.61 PTCA and bare metal stent to proximal LAD History of left heart catheterization Z98.890 History of hernia repair Z98.890, Z87.19 History of prostate surgery Z98.890 X 2 S/P TURP (status post transurethral resection of prostate) Z90.79 Surgical History: appendectomy, cholecystectomy, TURP, - - heart cath with stents last one 12/28/18, had prostate surgery, includes upper and lower endoscopies as noted in July 19, 2012; laparoscopic Sydnee fundoplication with lysis of adhesions, has had a previous TURP in 2007, retinal eye surgery in 2011, pacemaker defibrillator placed in 2008, has had a laser prostatectomy in January 2014, cataract excision, 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 [facility] Psychiatric History: No pertinent psych hx Lives: Spouse/ Significant Other Smoking Status: Never smoker Alcohol: None Drugs: None - *Family History Maternal Family History: Family History (Last Reviewed 12/28/18 @ 01:06 by Suraj Garg DO) Mother CAD (coronary artery disease) CVA (cerebral vascular accident) Myocardial infarction, Onset Age: 67 Hypertension Brother CAD (coronary artery disease) Hypertension Cancer Myocardial infarction, Onset Age: 73 Father Myocardial infarction, Onset Age: 77 Daughter Cancer Son Myocardial infarction, Onset Age: 46 History Items: No pertinent history Paternal Family History: Family History (Last Reviewed 12/28/18 @ 01:06 by Suraj Garg DO) Mother CAD (coronary artery disease) CVA (cerebral vascular accident) Myocardial infarction, Onset Age: 67 Hypertension Brother CAD (coronary artery disease) Hypertension Cancer Myocardial infarction, Onset Age: 73 Father Myocardial infarction, Onset Age: 77 Daughter Cancer Son Myocardial infarction, Onset Age: 46 History Items: No pertinent history Review of Systems Constitutional: Reports: Anorexia. Denies: Chills Eyes: Reports: Cataracts - s/p surgery HEENT: Denies: Difficulty Swallowing Cardiovascular: Denies: Chest Pain Respiratory: Denies: Shortness of breath at rest Gastrointestinal: Reports: Abdominal Pain. Denies: Nausea, Vomiting Genitourinary: Denies: Dysuria Skin: Denies: Rash Neurological: Denies: Balance problems Psychiatric: Denies: Depression Hematologic/ Lymphatic: Denies: Hx of blood clot Patient Problems: Active and Suspected Problems (Last Updated 12/29/18 @ 10:50 by Alexia Alexander) SBO (small bowel obstruction) (Acute) - Physical Exam General: Alert, Oriented x3, Cooperative, No apparent distress HEENT: Atraumatic Lungs: Normal air movement Cardiovascular: Regular rate Abdomen: Soft, Distended - mod, Tender - LLQ<LUQ<RLQ, no PS Extremities: No clubbing, No cyanosis, No edema Neurological: Cranial nerves II-XII grossly intact Psych/Mental Status: Normal Affect Vital Signs Temp Pulse Resp BP Pulse Ox 97.4 F L 62 18 155/71 H 98 01/30/19 22:54 01/30/19 22:54 01/30/19 22:54 01/30/19 22:54 01/30/19 22:54 Oxygen Delivery Method Room Air Weight: 129 lb 10.109 oz Body Mass Index (BMI) 22.9 Laboratory Tests Past 24 Hrs 01/30/19 01/30/19 01/30/19 23:15 23:15 23:17 WBC 7.5 RBC 3.94 L Hgb 12.0 L Hct 36.2 L MCV 91.9 MCH 30.5 MCHC 33.1 RDW 14.5 RDW Differential 47.4 H Plt Count 179 MPV 11.0 Immature Gran % (Auto) 0.100 Neut % (Auto) 55.3 Lymph % (Auto) 27.7 [place] % (Auto) 11.3 H Eos % (Auto) 5.3 H Baso % (Auto) 0.3 Absolute Neuts (auto) 4.2 Absolute Lymphs (auto) 2.09 Total Counted Not Reportable Sodium 139 Potassium 3.8 Chloride 107 Carbon Dioxide 29.0 Anion Gap 3 L BUN 12 Creatinine 0.87 Estim Creat Clear Calc 51.78 Est GFR (MDRD) Af Amer 107 Est GFR (MDRD) Non-Af 89 BUN/Creatinine Ratio 13.7 Glucose 96 Calcium 8.2 L Total Bilirubin 0.70 AST 20 ALT 22 Alkaline Phosphatase 56 Total Protein 7.5 Albumin 4.0 Globulin 3.5 Albumin/Globulin Ratio 1.1 Lipase 122 Urine Color Yellow Urine Clarity Clear Urine pH 6.0 Ur Specific [place] 1.015 Urine Protein Negative Urine Glucose (UA) NEGATIVE Urine Ketones Negative Urine Occult Blood Negative Urine Nitrite Negative Urine Bilirubin Negative Urine Urobilinogen Normal Ur Leukocyte Esterase Negative Urine RBC 0 SEEN Urine WBC 0 SEEN Ur Squamous Epith Cells 0-5 SEEN Urine Bacteria 0 SEEN Urine Mucus 0 SEEN Assessment/Plan All Active Problems (Last Updated 12/29/18 @ 10:50 by Alexia Alexander) General weakness (Acute) Sepsis (Acute) Orchitis of right testicle (Acute) Elevated troponin (Acute) Otitis media (Acute) SBO (small bowel obstruction) (Acute) 84-year-old with a small bowel obstruction 1. NG has been placed in the ER. Continue NG IV fluids/n.p.o. plan check acute abdominal series in the a.m. Currently will plan to treat conservatively. Dede Dougherty M.D. Pager: [phone] [facility] [address] [place] [address], Outpatient [place], [address] [place] [address] Office: [phone] Code Visit Inpatient E&M: 22994 Init Hosp L2
[2019-01-31 01:07] VITALS: BP 142/76; PULSE 66; RESP 18; O2SAT 94
--- NOTE | 2019-01-31 01:10 | RAD_ITS ---
HISTORY: NG placement small bowel obstruction COMPARISON: CT abdomen and pelvis 01/30/2019 FINDINGS: Nasogastric tube in place with the tube tip within the proximal stomach. Previously seen gas and fluid distention of the stomach is improved. Left subclavian AICD pacemaker with electrode tips in the region of the right atrium and right ventricle. Dilated loops of proximal and mid small bowel compatible with obstruction. The colon is nondilated. RAD/Abdomen Single View (Portable) IMPRESSION: 1. NG tube tip within the stomach. Previously seen gastric distention is improved. 2. Small bowel obstruction. at 0421 Reported and signed by: Missael Ceron MD Electronically Signed: Missael Ceron, at 4:20 EDT Tel , Service support ,
--- NOTE | 2019-01-31 01:10 | CON.PCM_ITS ---
Reason for Consult Date of Consultation: 01/31/19 History of Present Illness: The patient is a 84 year old M presented to the ER due to crampy abdominal pain started about 10 PM. Patient workup included CT abdomen pelvis which did show gas distended stomach, dilated proximal small bowel consistent with small bowel obstruction. Patient states he is previously had one a few years ago that was treated without surgery. Patient's past surgical history includes an open cholecystectomy, appendectomy, biopsy of mesenteric growth per patient was negative for cancer done at [facility] in . Patient states he has been burping a lot denies any current flatus states he last ate about 5 PM denies any nausea or vomiting. Patient states that for years he has had issues when he eats he has a lot of gas and will have a bloating sensation then after burping that will improve. Patient complains of bloating states his worse pain is in the left lower quadrant area. Patient was recently in the hospital at the end of December 2018 did have a heart cath along with a drug- eluting stent. Past Medical History Past Medical History (Chronic Problems): Chronic Problems (Last Updated 12/29/18 @ 10:50 by Alexia Alexander) Stented coronary artery (Chronic ~12/28/18) PTCA/BMS to prox LAD 08/02/2008; 12/28/2018: Successful PTCA/LAVINIA of proximal LCX with a 3.0 x 12 Promus Synergy. FFR of RCA negative per DJN @ [facility] 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) Essential hypertension (Chronic) History of placement of internal cardiac defibrillator (Chronic) ICD Implant 04/11/2009, ICD Gen Change 04/16/2016 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 (Chronic) Cardiomyopathy, ischemic (Chronic) Chronic systolic congestive heart failure (Chronic) HLD (hyperlipidemia) (Chronic) Abnormal result of cardiovascular function study, unspecified (Chronic) High risk medication use (Chronic) Iron deficiency anemia (Chronic) Chest pain, precordial (Chronic) Atherosclerotic heart disease of [place] coronary artery without angina pectoris (Chronic) PTCA/BMS to prox LAD 08/02/2008; 12/28/2018: Successful PTCA/LAVINIA of proximal LCX with a 3.0 x 12 Promus Synergy. FFR of RCA negative per DJN @ [facility] Dyspnea (Chronic) Fatigue (Chronic) Hypokalemia (Chronic) Hyperlipidemia (Chronic) Benign prostatic hypertrophy (Chronic) Medical History: Medical History (Last Updated 12/29/18 @ 10:50 by Alexia Alexander) 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) Z45.09 Essential hypertension (Chronic) I10 History of placement of internal cardiac defibrillator (Chronic) Z95.810 ICD Implant 04/11/2009, ICD Gen Change 04/16/2016 Old myocardial infarction (Chronic) I25.2 Angina pectoris (Chronic) I20.9 Cardiomyopathy, ischemic (Chronic) I25.5 Chronic systolic congestive heart failure (Chronic) I50.22 HLD (hyperlipidemia) (Chronic) E78.5 Abnormal result of cardiovascular function study, unspecified (Chronic) R94.30 High risk medication use (Chronic) Z79.899 Iron deficiency anemia (Chronic) D50.9 Chest pain, precordial (Chronic) R07.2 Atherosclerotic heart disease of [place] coronary artery without angina pectoris (Chronic) I25.10 PTCA/BMS to prox LAD 08/02/2008; 12/28/2018: Successful PTCA/LAVINIA of proximal LCX with a 3.0 x 12 Promus Synergy. FFR of RCA negative per DJN @ [facility] Dyspnea (Chronic) R06.00 Fatigue (Chronic) R53.83 Hypokalemia (Chronic) E87.6 GERD (gastroesophageal reflux disease) K21.9 FH: sudden cardiac (SCD) (Inactive) Z82.41 Family history of CVA (Inactive) Z82.3 Family history of hypertension (Inactive) Z82.49 HTN (hypertension) (Inactive) I10 Allergies morphine Allergy (Intermediate, Verified 01/30/19 22:55) Other RASH zolpidem tartrate [From Ambien] Adverse Reaction (Intermediate, Verified 01/30/19 22:55) Other CONFUSION Home Medications: Ambulatory Orders Medication Instructions Recorded RX: Aspirin [Aspirin, Baby] 81 mg PO DAILY 03/05/16 RX: Nitroglycerin [Nitrostat] 0.4 mg SUBLINGUAL Q5M PRN 04/15/16 diphenhydramine 25 2 tab PO QHS PRN tab 10/22/17 mg-acetaminophen 500 mg tablet carvedilol 12.5 mg tablet 12.5 mg PO BID #180 tab 10/03/18 isosorbide mononitrate ER 30 mg 30 mg PO QAM #90 tab 10/03/18 tablet,extended release 24 hr sacubitril 24 mg-valsartan 26 mg 1 tab PO BID #60 tab 11/02/18 tablet simvastatin 20 mg tablet 20 mg PO QHS #90 tab 12/05/18 clopidogrel 75 mg tablet 75 mg PO DAILY #90 tab 01/16/19 Surgical History: Surgical History (Last Updated 12/29/18 @ 11:37 by Abril Daly) Stented coronary artery (Chronic) Onset Date: ~12/28/18 Z95.5 PTCA/BMS to prox LAD 08/02/2008; 12/28/2018: Successful PTCA/LAVINIA of proximal LCX with a 3.0 x 12 Promus Synergy. FFR of RCA negative per DJN @ [facility] History of PTCA Onset Date: 08/02/08 Z98.61 PTCA and bare metal stent to proximal LAD History of left heart catheterization Z98.890 History of hernia repair Z98.890, Z87.19 History of prostate surgery Z98.890 X 2 S/P TURP (status post transurethral resection of prostate) Z90.79 Surgical History: appendectomy, cholecystectomy, TURP, - - heart cath with stents last one 12/28/18, had prostate surgery, includes upper and lower endoscopies as noted in July 19, 2012; laparoscopic Sydnee fundoplication with lysis of adhesions, has had a previous TURP in 2007, retinal eye surgery in 2011, pacemaker defibrillator placed in 2008, has had a laser prostatectomy in January 2014, cataract excision, 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 [facility] Psychiatric History: No pertinent psych hx Lives: Spouse/ Significant Other Smoking Status: Never smoker Alcohol: None Drugs: None - *Family History Maternal Family History: Family History (Last Reviewed 12/28/18 @ 01:06 by Suraj Garg DO) Mother CAD (coronary artery disease) CVA (cerebral vascular accident) Myocardial infarction, Onset Age: 67 Hypertension Brother CAD (coronary artery disease) Hypertension Cancer Myocardial infarction, Onset Age: 73 Father Myocardial infarction, Onset Age: 77 Daughter Cancer Son Myocardial infarction, Onset Age: 46 History Items: No pertinent history Paternal Family History: Family History (Last Reviewed 12/28/18 @ 01:06 by Suraj Garg DO) Mother CAD (coronary artery disease) CVA (cerebral vascular accident) Myocardial infarction, Onset Age: 67 Hypertension Brother CAD (coronary artery disease) Hypertension Cancer Myocardial infarction, Onset Age: 73 Father Myocardial infarction, Onset Age: 77 Daughter Cancer Son Myocardial infarction, Onset Age: 46 History Items: No pertinent history Review of Systems Constitutional: Reports: Anorexia. Denies: Chills Eyes: Reports: Cataracts - s/p surgery HEENT: Denies: Difficulty Swallowing Cardiovascular: Denies: Chest Pain Respiratory: Denies: Shortness of breath at rest Gastrointestinal: Reports: Abdominal Pain. Denies: Nausea, Vomiting Genitourinary: Denies: Dysuria Skin: Denies: Rash Neurological: Denies: Balance problems Psychiatric: Denies: Depression Hematologic/ Lymphatic: Denies: Hx of blood clot Patient Problems: Active and Suspected Problems (Last Updated 12/29/18 @ 10:50 by Alexia Alexander) SBO (small bowel obstruction) (Acute) - Physical Exam General: Alert, Oriented x3, Cooperative, No apparent distress HEENT: Atraumatic Lungs: Normal air movement Cardiovascular: Regular rate Abdomen: Soft, Distended - mod, Tender - LLQ<LUQ<RLQ, no PS Extremities: No clubbing, No cyanosis, No edema Neurological: Cranial nerves II-XII grossly intact Psych/Mental Status: Normal Affect Vital Signs Temp Pulse Resp BP Pulse Ox 97.4 F L 62 18 155/71 H 98 01/30/19 22:54 01/30/19 22:54 01/30/19 22:54 01/30/19 22:54 01/30/19 22:54 Oxygen Delivery Method Room Air Weight: 129 lb 10.109 oz Body Mass Index (BMI) 22.9 Laboratory Tests Past 24 Hrs 01/30/19 01/30/19 01/30/19 23:15 23:15 23:17 WBC 7.5 RBC 3.94 L Hgb 12.0 L Hct 36.2 L MCV 91.9 MCH 30.5 MCHC 33.1 RDW 14.5 RDW Differential 47.4 H Plt Count 179 MPV 11.0 Immature Gran % (Auto) 0.100 Neut % (Auto) 55.3 Lymph % (Auto) 27.7 [place] % (Auto) 11.3 H Eos % (Auto) 5.3 H Baso % (Auto) 0.3 Absolute Neuts (auto) 4.2 Absolute Lymphs (auto) 2.09 Total Counted Not Reportable Sodium 139 Potassium 3.8 Chloride 107 Carbon Dioxide 29.0 Anion Gap 3 L BUN 12 Creatinine 0.87 Estim Creat Clear Calc 51.78 Est GFR (MDRD) Af Amer 107 Est GFR (MDRD) Non-Af 89 BUN/Creatinine Ratio 13.7 Glucose 96 Calcium 8.2 L Total Bilirubin 0.70 AST 20 ALT 22 Alkaline Phosphatase 56 Total Protein 7.5 Albumin 4.0 Globulin 3.5 Albumin/Globulin Ratio 1.1 Lipase 122 Urine Color Yellow Urine Clarity Clear Urine pH 6.0 Ur Specific [place] 1.015 Urine Protein Negative Urine Glucose (UA) NEGATIVE Urine Ketones Negative Urine Occult Blood Negative Urine Nitrite Negative Urine Bilirubin Negative Urine Urobilinogen Normal Ur Leukocyte Esterase Negative Urine RBC 0 SEEN Urine WBC 0 SEEN Ur Squamous Epith Cells 0-5 SEEN Urine Bacteria 0 SEEN Urine Mucus 0 SEEN Assessment/Plan All Active Problems (Last Updated 12/29/18 @ 10:50 by Alexia Alexander) General weakness (Acute) Sepsis (Acute) Orchitis of right testicle (Acute) Elevated troponin (Acute) Otitis media (Acute) SBO (small bowel obstruction) (Acute) 84-year-old with a small bowel obstruction 1. NG has been placed in the ER. Continue NG IV fluids/n.p.o. plan check acute abdominal series in the a.m. Currently will plan to treat conservatively. Dede Dougherty M.D. Pager: [phone] [facility] [address] [place] [address], [facility], [address] [place] [address] Office: [phone] Code Visit Inpatient E&M: 83035 Init Hosp L2
[2019-01-31 02:01] VITALS: BMI 22.4; BMI 22.5
[2019-01-31 02:13] VITALS: BP 143/68; PULSE 69; RESP 15; TEMP 37.1; O2SAT 96
[2019-01-31] MEDS: 0.9% Normal Saline 1,000 ML 100 ML IV (02:30)
[2019-01-31 06:18] LABS: Absolute Lymphocyte Count 1.13 X10^3/ul (0.83-4.51); Absolute Neutrophil Count 5.6 X10^3/uL (2.0-7.7); Basophil# 0.01 X10^3/uL; Basophil% 0.1 % (0-1); Eosinophil# 0.13 X10^3/uL; Eosinophils% 1.7 % (0-5); Hemoglobin 11.4 g/dl (13.0-16.5); Lymphocyte # 1.13 X10^3/ul (4.0); Lymphocyte % 15.1 % (19-41); Mean Corp Hgb Conc 32.6 g/gl (32-36); Mean Corpuscular Hgb 29.7 pg (27.0-32.0); Mean Corpuscular Volume 91.1 fL (80-94); Monocyte# 0.55 X10^3/uL; Monocyte% 7.4 % (0-10); Neutrophil # 5.63 X10^3/uL (2.7-7.7); Neutrophil % 75.4 % (47-70); Platelet Count 153 K/mm3 (150-450); RBC Distribution Width CV 14.4 % (11.6-14.6); RBC Distribution Width SD 47.2 fl (35.1-43.9); Red Blood Count 3.84 M/mm3 (4.6-6.2); White Blood Count 7.5 K/mm3 (4.4-11.0)
[2019-01-31 06:39] LABS: ALB/GLOB Ratio 1.1 RATIO (0.9-2.4); AST(SGOT) 21 U/L (15-37); Alanine Aminotransfer ALT/SGPT 22 U/L (16-61); Albumin, Serum 3.5 g/dL (3.2-5.0); Alkaline Phosphatase 53 U/L (45-117); Anion Gap 6 (5-15); BUN 12 mg/dL (7-18); BUN/Creat Ratio 15.9 RATIO (10-20); Calcium,Total 7.8 mg/dL (8.5-10.1); Chloride 110 mmol/L (98-107); Creatinine, Serum 0.75 mg/dL (0.70-1.30); EST Glomerular Filtration Rate 105 mL/min (>60); Est Glom Filt Rate - Afr Amer 127 mL/min (>60); Estimated Creatinine Clearance 45.05 ml/min; Globulin 3.3 g/dL (2.2-4.2); Glucose 110 mg/dL (74-106); POSITIVE COUNT NO; POSITIVE DIFFERENTIAL NO; POSITIVE MORPHOLOGY NO; Potassium 4.2 mmol/L (3.5-5.1); Protein, Total 6.8 g/dL (6.4-8.2); Sodium Level 141 mmol/L (136-145)
[2019-01-31 07:15] VITALS: PULSE 80
--- NOTE | 2019-01-31 08:49 | PCM.PN.SRG ---
Patient Problems: Active and Suspected Problems (Last Updated 12/29/18 @ 10:50 by Alexia Alexander) SBO (small bowel obstruction) (Acute) Subjective: Patient states his abdominal pain is improved and denies abdominal pain currently, denies any nausea vomiting, NG put out only about 100 cc of greenish fluid, patient has not voided - Physical Exam General: Alert, Oriented x3, Cooperative, No apparent distress Cardiovascular: Regular rate Abdomen: Soft, Non Tender - No peritoneal signs, Distended - mild Extremities: No clubbing, No cyanosis, No edema Neurological: Cranial nerves II-XII grossly intact Psych/Mental Status: Normal Affect Vital Signs Temp Pulse Resp BP Pulse Ox 98.8 F 80 15 143/68 H 96 01/31/19 02:13 01/31/19 07:15 01/31/19 02:13 01/31/19 02:13 01/31/19 02:13 Oxygen Delivery Method Room Air Weight: 126 lb 12.253 oz Body Mass Index (BMI) 22.4 Intake and Output for Last 24 Hours 01/29/19 01/30/19 01/31/19 23:59 23:59 23:59 Intake Total 440 / 440 Output Total 70 / 70 Balance 370 / 370 Laboratory Tests Past 24 Hrs 01/30/19 01/30/19 01/30/19 23:15 23:15 23:17 WBC 7.5 RBC 3.94 L Hgb 12.0 L Hct 36.2 L MCV 91.9 MCH 30.5 MCHC 33.1 RDW 14.5 RDW Differential 47.4 H Plt Count 179 MPV 11.0 Immature Gran % (Auto) 0.100 Neut % (Auto) 55.3 Lymph % (Auto) 27.7 [place] % (Auto) 11.3 H Eos % (Auto) 5.3 H Baso % (Auto) 0.3 Absolute Neuts (auto) 4.2 Absolute Lymphs (auto) 2.09 Total Counted Not Reportable Sodium 139 Potassium 3.8 Chloride 107 Carbon Dioxide 29.0 Anion Gap 3 L BUN 12 Creatinine 0.87 Estim Creat Clear Calc 51.78 Est GFR (MDRD) Af Amer 107 Est GFR (MDRD) Non-Af 89 BUN/Creatinine Ratio 13.7 Glucose 96 Calcium 8.2 L Magnesium Total Bilirubin 0.70 AST 20 ALT 22 Alkaline Phosphatase 56 Total Protein 7.5 Albumin 4.0 Globulin 3.5 Albumin/Globulin Ratio 1.1 Lipase 122 Urine Color Yellow Urine Clarity Clear Urine pH 6.0 Ur Specific [place] 1.015 Urine Protein Negative Urine Glucose (UA) NEGATIVE Urine Ketones Negative Urine Occult Blood Negative Urine Nitrite Negative Urine Bilirubin Negative Urine Urobilinogen Normal Ur Leukocyte Esterase Negative Urine RBC 0 SEEN Urine WBC 0 SEEN Ur Squamous Epith Cells 0-5 SEEN Urine Bacteria 0 SEEN Urine Mucus 0 SEEN 01/31/19 01/31/19 05:55 05:55 WBC 7.5 RBC 3.84 L Hgb 11.4 L Hct 35.0 L MCV 91.1 MCH 29.7 MCHC 32.6 RDW 14.4 RDW Differential 47.2 H Plt Count 153 MPV 11.0 Immature Gran % (Auto) 0.300 Neut % (Auto) 75.4 H Lymph % (Auto) 15.1 L [place] % (Auto) 7.4 Eos % (Auto) 1.7 Baso % (Auto) 0.1 Absolute Neuts (auto) 5.6 Absolute Lymphs (auto) 1.13 Total Counted Not Reportable Sodium 141 Potassium 4.2 Chloride 110 H Carbon Dioxide 25.0 Anion Gap 6 BUN 12 Creatinine 0.75 Estim Creat Clear Calc 45.05 Est GFR (MDRD) Af Amer 127 Est GFR (MDRD) Non-Af 105 BUN/Creatinine Ratio 15.9 Glucose 110 H Calcium 7.8 L Magnesium 2.0 Total Bilirubin 0.90 AST 21 ALT 22 Alkaline Phosphatase 53 Total Protein 6.8 Albumin 3.5 Globulin 3.3 Albumin/Globulin Ratio 1.1 Lipase Urine Color Urine Clarity Urine pH Ur Specific [place] Urine Protein Urine Glucose (UA) Urine Ketones Urine Occult Blood Urine Nitrite Urine Bilirubin Urine Urobilinogen Ur Leukocyte Esterase Urine RBC Urine WBC Ur Squamous Epith Cells Urine Bacteria Urine Mucus Medical Necessity - Tobacco Use Smoking Status: Never smoker Assessment/Plan All Active Problems (Last Updated 12/29/18 @ 10:50 by Alexia Alexander) General weakness (Acute) Sepsis (Acute) Orchitis of right testicle (Acute) Elevated troponin (Acute) Otitis media (Acute) SBO (small bowel obstruction) (Acute) 84-year-old with a small bowel obstruction, status post recent drug-eluting cardiac stent 12/28/18 1. Continue NG/n.p.o. okay for meds, IV fluids. Acute abdominal series scheduled for this morning. 2. Status post drug-eluting stent 12/28/2018. Okay for aspirin and Plavix with sip and clamping of NG 3. Patient has not voided since admit patient states last time he voids about 10 PM. We will check a bladder scan and patient may need Rod catheter placed. Dede Dougherty M.D. Pager: [phone] [facility] [address] [place] [address], [facility], [address] [place] [address] Office: [phone]
--- NOTE | 2019-01-31 08:53 | PN.SURG_ITS ---
Patient Problems: Active and Suspected Problems (Last Updated 12/29/18 @ 10:50 by Alexia Alexander) SBO (small bowel obstruction) (Acute) Subjective: Patient states his abdominal pain is improved and denies abdominal pain currently, denies any nausea vomiting, NG put out only about 100 cc of greenish fluid, patient has not voided - Physical Exam General: Alert, Oriented x3, Cooperative, No apparent distress Cardiovascular: Regular rate Abdomen: Soft, Non Tender - No peritoneal signs, Distended - mild Extremities: No clubbing, No cyanosis, No edema Neurological: Cranial nerves II-XII grossly intact Psych/Mental Status: Normal Affect Vital Signs Temp Pulse Resp BP Pulse Ox 98.8 F 80 15 143/68 H 96 01/31/19 02:13 01/31/19 07:15 01/31/19 02:13 01/31/19 02:13 01/31/19 02:13 Oxygen Delivery Method Room Air Weight: 126 lb 12.253 oz Body Mass Index (BMI) 22.4 Intake and Output for Last 24 Hours 01/29/19 01/30/19 01/31/19 23:59 23:59 23:59 Intake Total 440 / 440 Output Total 70 / 70 Balance 370 / 370 Laboratory Tests Past 24 Hrs 01/30/19 01/30/19 01/30/19 23:15 23:15 23:17 WBC 7.5 RBC 3.94 L Hgb 12.0 L Hct 36.2 L MCV 91.9 MCH 30.5 MCHC 33.1 RDW 14.5 RDW Differential 47.4 H Plt Count 179 MPV 11.0 Immature Gran % (Auto) 0.100 Neut % (Auto) 55.3 Lymph % (Auto) 27.7 [place] % (Auto) 11.3 H Eos % (Auto) 5.3 H Baso % (Auto) 0.3 Absolute Neuts (auto) 4.2 Absolute Lymphs (auto) 2.09 Total Counted Not Reportable Sodium 139 Potassium 3.8 Chloride 107 Carbon Dioxide 29.0 Anion Gap 3 L BUN 12 Creatinine 0.87 Estim Creat Clear Calc 51.78 Est GFR (MDRD) Af Amer 107 Est GFR (MDRD) Non-Af 89 BUN/Creatinine Ratio 13.7 Glucose 96 Calcium 8.2 L Magnesium Total Bilirubin 0.70 AST 20 ALT 22 Alkaline Phosphatase 56 Total Protein 7.5 Albumin 4.0 Globulin 3.5 Albumin/Globulin Ratio 1.1 Lipase 122 Urine Color Yellow Urine Clarity Clear Urine pH 6.0 Ur Specific [place] 1.015 Urine Protein Negative Urine Glucose (UA) NEGATIVE Urine Ketones Negative Urine Occult Blood Negative Urine Nitrite Negative Urine Bilirubin Negative Urine Urobilinogen Normal Ur Leukocyte Esterase Negative Urine RBC 0 SEEN Urine WBC 0 SEEN Ur Squamous Epith Cells 0-5 SEEN Urine Bacteria 0 SEEN Urine Mucus 0 SEEN 01/31/19 01/31/19 05:55 05:55 WBC 7.5 RBC 3.84 L Hgb 11.4 L Hct 35.0 L MCV 91.1 MCH 29.7 MCHC 32.6 RDW 14.4 RDW Differential 47.2 H Plt Count 153 MPV 11.0 Immature Gran % (Auto) 0.300 Neut % (Auto) 75.4 H Lymph % (Auto) 15.1 L [place] % (Auto) 7.4 Eos % (Auto) 1.7 Baso % (Auto) 0.1 Absolute Neuts (auto) 5.6 Absolute Lymphs (auto) 1.13 Total Counted Not Reportable Sodium 141 Potassium 4.2 Chloride 110 H Carbon Dioxide 25.0 Anion Gap 6 BUN 12 Creatinine 0.75 Estim Creat Clear Calc 45.05 Est GFR (MDRD) Af Amer 127 Est GFR (MDRD) Non-Af 105 BUN/Creatinine Ratio 15.9 Glucose 110 H Calcium 7.8 L Magnesium 2.0 Total Bilirubin 0.90 AST 21 ALT 22 Alkaline Phosphatase 53 Total Protein 6.8 Albumin 3.5 Globulin 3.3 Albumin/Globulin Ratio 1.1 Lipase Urine Color Urine Clarity Urine pH Ur Specific [place] Urine Protein Urine Glucose (UA) Urine Ketones Urine Occult Blood Urine Nitrite Urine Bilirubin Urine Urobilinogen Ur Leukocyte Esterase Urine RBC Urine WBC Ur Squamous Epith Cells Urine Bacteria Urine Mucus Medical Necessity - Tobacco Use Smoking Status: Never smoker Assessment/Plan All Active Problems (Last Updated 12/29/18 @ 10:50 by Alexia Alexander) General weakness (Acute) Sepsis (Acute) Orchitis of right testicle (Acute) Elevated troponin (Acute) Otitis media (Acute) SBO (small bowel obstruction) (Acute) 84-year-old with a small bowel obstruction, status post recent drug-eluting cardiac stent 12/28/18 1. Continue NG/n.p.o. okay for meds, IV fluids. Acute abdominal series scheduled for this morning. 2. Status post drug-eluting stent 12/28/2018. Okay for aspirin and Plavix with sip and clamping of NG 3. Patient has not voided since admit patient states last time he voids about 10 PM. We will check a bladder scan and patient may need Rod catheter placed. Dede Dougherty M.D. Pager: [phone] [facility] [address] [place] [address], [facility], [address] [place] [address] Office: [phone]
--- NOTE | 2019-01-31 09:00 | RAD_ITS ---
STUDY: X-RAY - ABDOMEN/PELVIS REASON FOR EXAM: Male, 84 years old. Possible small bowel obstruction. TECHNIQUE: AP supine and upright views of the abdomen and pelvis. COMPARISON: Comparison is made with prior study done earlier in the day. FINDINGS: The tip of the nasogastric tube is in the body of the stomach just distal to the gastroesophageal junction. There is an unremarkable bowel gas pattern. Moderate amount of fecal material is seen in the colon. There is no demonstrated free abdominal air. Amorphous calcifications are seen in the left mid abdomen. These may be within the lymph nodes. Normal soft tissue structures. There are diffuse degenerative changes of the visualized lumbar spine. RAD/Abd Inc Decub and/or Erect IMPRESSION: Moderate amount of fecal material is seen in the colon. There is no evidence of a small bowel obstruction at this time. Electronically Signed: Onofre Vincent, at 12:39 EDT , Service support ,
[2019-01-31] MEDS: Clopidogrel Bisulfate 75 MG Tablet PO (09:25)
[2019-01-31] MEDS: Aspirin 81 MG TAB.CHEW PO (09:25)
[2019-01-31] MEDS: 0.9% NaCl Peripheral Flush Adult/Peds IV (09:25)
[2019-01-31 09:28] VITALS: BP 148/69; PULSE 67; RESP 18; TEMP 36.5; O2SAT 100
--- NOTE | 2019-01-31 09:46 | NURSING ---
NG tube advanced [address]'s order.
--- NOTE | 2019-01-31 09:53 | NURSING ---
Dr. Dougherty notified pt voided 160 and post void was 176. Said to continue to monitor.
--- NOTE | 2019-01-31 09:55 | RAD_ITS ---
STUDY: SMALL BOWEL FOLLOW-THROUGH EXAMINATION. REASON FOR EXAM: Male, 84 years old. History of small bowel obstruction. 4 images were obtained. TECHNIQUE: The patient ingested Gastrografin. A small bowel follow-through examination was then performed. COMPARISON: None. FINDINGS: Gastrografin was inserted through the indwelling nasogastric tube. Serial images were obtained up to 30 minutes following the administration of Gastrografin. There is no evidence of a small bowel obstruction. The bowel is not dilated. RAD/Small Bowel Series Only IMPRESSION: No evidence of small bowel obstruction at this time. Electronically Signed: Onofre Vincent, at 13:00 EDT , Service support ,
--- NOTE | 2019-01-31 11:05 | PCA ---
PT OFF FLOOR
[2019-01-31] MEDS: Isosorbide Mononitrate 30 MG Tablet PO (11:13)
[2019-01-31] MEDS: Carvedilol 12.5 MG Tablet PO (11:13)
--- NOTE | 2019-01-31 13:02 | PCM.PROGNOTE ---
Patient Problems: Active and Suspected Problems (Last Updated 12/29/18 @ 10:50 by Alexia Alexander) SBO (small bowel obstruction) (Acute) Subjective: Patient seen and examined. He denies further abdominal pain. Denies nausea, vomiting. NG removed. - Physical Exam General: Alert, Oriented x3, Cooperative HEENT: Atraumatic, PERRLA, EOMI, Normocephalic Oral: Dry Mucosa Neck: Supple, No JVD, Negative Carotid Bruits Lungs: Clear to auscultation, Normal air movement Cardiovascular: Regular rate, Regular Rhythm, Normal S1, Normal S2, No murmurs Abdomen: Bowel Sounds Present, Soft, Non Tender, Non-Distended Extremities: No clubbing, No cyanosis, No edema, Capillary Refill Less than 3 Seconds Skin: No rashes, No breakdown Musculoskeletal: No Tenderness to Palpation of Joints or Extremities Neurological: Cranial nerves II-XII grossly intact, Neuro grossly intact Psych/Mental Status: Normal Affect, Appropriate Vital Signs Temp Pulse Resp BP Pulse Ox 97.7 F L 67 18 148/69 H 100 01/31/19 09:28 01/31/19 09:28 01/31/19 09:28 01/31/19 09:28 01/31/19 09:28 Oxygen Flow Rate (L/min) 100 Oxygen Delivery Method Room Air Weight: 126 lb 12.253 oz Body Mass Index (BMI) 22.4 Intake and Output for Last 24 Hours 01/29/19 01/30/19 01/31/19 23:59 23:59 23:59 Intake Total 1007 / 1007 Output Total 355 / 355 Balance 652 / 652 Laboratory Tests Past 24 Hrs 01/30/19 01/30/19 01/30/19 23:15 23:15 23:17 WBC 7.5 RBC 3.94 L Hgb 12.0 L Hct 36.2 L MCV 91.9 MCH 30.5 MCHC 33.1 RDW 14.5 RDW Differential 47.4 H Plt Count 179 MPV 11.0 Immature Gran % (Auto) 0.100 Neut % (Auto) 55.3 Lymph % (Auto) 27.7 [place] % (Auto) 11.3 H Eos % (Auto) 5.3 H Baso % (Auto) 0.3 Absolute Neuts (auto) 4.2 Absolute Lymphs (auto) 2.09 Total Counted Not Reportable Sodium 139 Potassium 3.8 Chloride 107 Carbon Dioxide 29.0 Anion Gap 3 L BUN 12 Creatinine 0.87 Estim Creat Clear Calc 51.78 Est GFR (MDRD) Af Amer 107 Est GFR (MDRD) Non-Af 89 BUN/Creatinine Ratio 13.7 Glucose 96 Calcium 8.2 L Magnesium Total Bilirubin 0.70 AST 20 ALT 22 Alkaline Phosphatase 56 Total Protein 7.5 Albumin 4.0 Globulin 3.5 Albumin/Globulin Ratio 1.1 Lipase 122 Urine Color Yellow Urine Clarity Clear Urine pH 6.0 Ur Specific [place] 1.015 Urine Protein Negative Urine Glucose (UA) NEGATIVE Urine Ketones Negative Urine Occult Blood Negative Urine Nitrite Negative Urine Bilirubin Negative Urine Urobilinogen Normal Ur Leukocyte Esterase Negative Urine RBC 0 SEEN Urine WBC 0 SEEN Ur Squamous Epith Cells 0-5 SEEN Urine Bacteria 0 SEEN Urine Mucus 0 SEEN 01/31/19 01/31/19 05:55 05:55 WBC 7.5 RBC 3.84 L Hgb 11.4 L Hct 35.0 L MCV 91.1 MCH 29.7 MCHC 32.6 RDW 14.4 RDW Differential 47.2 H Plt Count 153 MPV 11.0 Immature Gran % (Auto) 0.300 Neut % (Auto) 75.4 H Lymph % (Auto) 15.1 L [place] % (Auto) 7.4 Eos % (Auto) 1.7 Baso % (Auto) 0.1 Absolute Neuts (auto) 5.6 Absolute Lymphs (auto) 1.13 Total Counted Not Reportable Sodium 141 Potassium 4.2 Chloride 110 H Carbon Dioxide 25.0 Anion Gap 6 BUN 12 Creatinine 0.75 Estim Creat Clear Calc 45.05 Est GFR (MDRD) Af Amer 127 Est GFR (MDRD) Non-Af 105 BUN/Creatinine Ratio 15.9 Glucose 110 H Calcium 7.8 L Magnesium 2.0 Total Bilirubin 0.90 AST 21 ALT 22 Alkaline Phosphatase 53 Total Protein 6.8 Albumin 3.5 Globulin 3.3 Albumin/Globulin Ratio 1.1 Lipase Urine Color Urine Clarity Urine pH Ur Specific [place] Urine Protein Urine Glucose (UA) Urine Ketones Urine Occult Blood Urine Nitrite Urine Bilirubin Urine Urobilinogen Ur Leukocyte Esterase Urine RBC Urine WBC Ur Squamous Epith Cells Urine Bacteria Urine Mucus Medical Necessity - Tobacco Use Smoking Status: Never smoker Assessment/Plan All Active Problems (Last Updated 12/29/18 @ 10:50 by Alexia Montanez General weakness (Acute) Sepsis (Acute) Orchitis of right testicle (Acute) Elevated troponin (Acute) Otitis media (Acute) SBO (small bowel obstruction) (Acute) 1. Small bowel obstruction-CT of abdomen and pelvis on admission shows proximal small bowel obstruction. Abdominal x-ray this morning shows moderate amount of fecal material in the colon no evidence of small bowel obstruction. Small bowel x-ray again shows no evidence of small bowel obstruction. Abdominal pain improved. NG removed. Patient advanced to clear liquids. Further management per general surgery. 2. CAD status post recent drug-eluting cardiac stent 12/28/2018-continue aspirin, Plavix, statin, beta-simran. 3. Chronic systolic CHF/ischemic cardiomyopathy-echo 12/28/2018 with EF 25-30%. Follows with Dr. Abbott. 4. Status post ICD 5. Hypertension-stable, continue current regimen. 6. Hyperlipidemia-continue statin. 7. BPH-not on regimen. DVT prophylaxis-Lovenox subcu This patient was seen by MORTEZA Perla under the supervision of Dr. Nowak.
[2019-01-31 13:48] VITALS: BP 114/58; PULSE 61; RESP 18; TEMP 36.5; O2SAT 100
[2019-01-31] MEDS: SACUBITRIL/VALSARTAN 24/26 MG TABLET 1 EACH PO (13:54)
--- NOTE | 2019-01-31 14:23 | CASEMGMT ---
RN CM Assessment Presentation: SBO Intro role of CM and purpose of RN CM assessment to patient and his . Pt is awake alert and able to participate in RN CM assessment. Demographics, PCP and Pharmacy verified. Recent admission for PTCA. Pt is to start cardiac rehab in near future. States he is doing well @ home prior to this admission. PCP: Dr. Mancini Specialists: Dr. Abbott [facility] Insurance: [employer] Prescription Benefit: yes LNOK: [place] Living Arrangements: one story home. Pt states he is independent in ADL. is able to assist if needed. Transportation: Pt drives and is also able to drive. DME: shower chair, raised toilet seat, walker- pt does not use any ambulatory devices. HHC: none Patient DC goals: Home DC PLAN: anticipate pt will return home on dc with family support. Ashkan WALLACE RN ACM
--- NOTE | 2019-01-31 14:25 | DCINST_ITS ---
- Discharge Diagnoses Current Active Problems: Current Active and Chronic Problems (Last Updated 12/29/18 @ 10:50 by Alexia Alexander) SBO (small bowel obstruction) (Acute) You will use the following diet at home:: Cardiac Discharge Activity: Return to Normal Activity Call your doctor if you observe: Inability to urinate, Uncontrolled pain Allergies/Adverse Reactions: Allergies morphine Allergy (Intermediate, Verified 01/31/19 01:56) Rash zolpidem tartrate [From Ambien] Adverse Reaction (Intermediate, Verified 01/31/19 01:56) CONFUSION Medications to take at Discharge Aspirin [Aspirin, Baby] 81 mg PO DAILY 03/05/16 Nitroglycerin [Nitrostat] 0.4 mg SUBLINGUAL Q5M PRN 04/15/16 diphenhydramine 25 mg-acetaminophen 500 mg tablet 2 tab PO QHS PRN tab 10/22/17 carvedilol 12.5 mg tablet 12.5 mg PO BID #180 tab 10/03/18 isosorbide mononitrate ER 30 mg tablet,extended release 24 hr 30 mg PO QAM #90 tab 10/03/18 sacubitril 24 mg-valsartan 26 mg tablet 1 tab PO BID #60 tab 11/02/18 simvastatin 20 mg tablet 20 mg PO QHS #90 tab 12/05/18 clopidogrel 75 mg tablet 75 mg PO DAILY #90 tab 01/16/19 Primary Care Physician: Shailesh Mancini [Primary Care Provider] - Please follow up with your Primary Care Physician in: 1 Week Test Results: Test results from this visit will be discussed in further detail at your follow- up appointment, if applicable. Proposed Discharge Date: 01/31/19
--- NOTE | 2019-01-31 14:26 | PCM.DC.SUM ---
<Quyen Alarcon - Last Filed: 01/31/19 14:34> Discharge Date and Diagnosis Date of Admission: 01/31/19 Date of Discharge: 01/31/19 - Primary Discharge Diagnosis Active and Suspected Problems (Last Updated 12/29/18 @ 10:50 by Alexia Alexander) 1. Small bowel obstruction 2. CAD status post recent drug-eluting cardiac stent 12/28/2018 3. Chronic systolic CHF/ischemic cardiomyopathy 4. Status post ICD 5. Hypertension 6. Hyperlipidemia 7. BPH - Secondary Discharge Diagnosis Chronic Problems (Last Updated 12/29/18 @ 10:50 by Alexia Alexander) Stented coronary artery (Chronic ~12/28/18) PTCA/BMS to prox LAD 08/02/2008; 12/28/2018: Successful PTCA/LAVINIA of proximal LCX with a 3.0 x 12 Promus Synergy. FFR of RCA negative per DJN @ [facility] 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) Essential hypertension (Chronic) History of placement of internal cardiac defibrillator (Chronic) ICD Implant 04/11/2009, ICD Gen Change 04/16/2016 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 (Chronic) Cardiomyopathy, ischemic (Chronic) Chronic systolic congestive heart failure (Chronic) HLD (hyperlipidemia) (Chronic) Abnormal result of cardiovascular function study, unspecified (Chronic) High risk medication use (Chronic) Iron deficiency anemia (Chronic) Chest pain, precordial (Chronic) Atherosclerotic heart disease of [place] coronary artery without angina pectoris (Chronic) PTCA/BMS to prox LAD 08/02/2008; 12/28/2018: Successful PTCA/LAVINIA of proximal LCX with a 3.0 x 12 Promus Synergy. FFR of RCA negative per DJN @ [facility] Dyspnea (Chronic) Fatigue (Chronic) Hypokalemia (Chronic) Hyperlipidemia (Chronic) Benign prostatic hypertrophy (Chronic) Hospital Course and Treatment Imaging Results: Diagnostic Data Abdomen/Pelvis CT 01/30/19 23:04 IMPRESSION: 1. CT findings are consistent with proximal small bowel obstruction. 2. Large right-sided renal cyst. Electronically Signed: Char Chapman MD at 0:10 EDT , Service support , KUB X-Ray 01/31/19 01:10 IMPRESSION: 1. NG tube tip within the stomach. Previously seen gastric distention is improved. 2. Small bowel obstruction. at 0421 Reported and signed by: Missael Ceron MD Electronically Signed: Missael Ceron, at 4:20 EDT Tel , Service support , Abdomen X-Ray 01/31/19 09:00 IMPRESSION: Moderate amount of fecal material is seen in the colon. There is no evidence of a small bowel obstruction at this time. Electronically Signed: Onofre Vincent, at 12:39 EDT , Service support , Small Bowel X-Ray 01/31/19 09:55 IMPRESSION: No evidence of small bowel obstruction at this time. Electronically Signed: Onofre Vincent, at 13:00 EDT , Service support , Dr. Dougherty- General Surgery Operations: None Procedures: None Summary of Care Provided: The patient is a 84 year old M admitted 01/31/19 due to abdominal pain. 1. Small bowel obstruction-CT of abdomen and pelvis on admission shows proximal small bowel obstruction. Abdominal x-ray this morning shows moderate amount of fecal material in the colon no evidence of small bowel obstruction. Small bowel x-ray again shows no evidence of small bowel obstruction. Abdominal pain improved. NG removed. Patient tolerating regular diet. Follow-up with primary care physician in 1 week. Follow-up with general surgery, Dr. Dougherty if further issues arise. 2. CAD status post recent drug-eluting cardiac stent 12/28/2018-continue aspirin, Plavix, statin, beta-simran. 3. Chronic systolic CHF/ischemic cardiomyopathy-echo 12/28/2018 with EF 25-30%. Follows with Dr. Abbott. 4. Status post ICD 5. Hypertension-stable, continue current regimen. 6. Hyperlipidemia-continue statin. 7. BPH-not on regimen. General: Alert, Oriented x3, Cooperative HEENT: Atraumatic, PERRLA, EOMI, Normocephalic Oral: Dry Mucosa Neck: Supple, No JVD, Negative Carotid Bruits Lungs: Clear to auscultation, Normal air movement Cardiovascular: Regular rate, Regular Rhythm, Normal S1, Normal S2, No murmurs Abdomen: Bowel Sounds Present, Soft, Non Tender, Non-Distended Extremities: No clubbing, No cyanosis, No edema, Capillary Refill Less than 3 Seconds Skin: No rashes, No breakdown Musculoskeletal: No Tenderness to Palpation of Joints or Extremities Neurological: Cranial nerves II-XII grossly intact, Neuro grossly intact Psych/Mental Status: Normal Affect, Appropriate Patient seen and examined prior to discharge. Physical assessment as noted above. Patient is stable for discharge with follow up recommendations as noted above. This patient was seen by MORTEZA Perla under the supervision of Dr. Nowak. - Physical Exam Vital Signs Temp Pulse Resp BP Pulse Ox 97.7 F L 61 18 114/58 L 100 01/31/19 13:48 01/31/19 13:48 01/31/19 13:48 01/31/19 13:48 01/31/19 13:48 Oxygen Flow Rate (L/min) 100 Oxygen Delivery Method Room Air Weight: 126 lb 12.253 oz Body Mass Index (BMI) 22.4 Intake and Output for Last 24 Hours 01/29/19 01/30/19 01/31/19 23:59 23:59 23:59 Intake Total 1007 / 1007 Output Total 355 / 355 Balance 652 / 652 Laboratory Tests Past 24 Hrs 01/30/19 01/30/19 01/30/19 23:15 23:15 23:17 WBC 7.5 RBC 3.94 L Hgb 12.0 L Hct 36.2 L MCV 91.9 MCH 30.5 MCHC 33.1 RDW 14.5 RDW Differential 47.4 H Plt Count 179 MPV 11.0 Immature Gran % (Auto) 0.100 Neut % (Auto) 55.3 Lymph % (Auto) 27.7 [place] % (Auto) 11.3 H Eos % (Auto) 5.3 H Baso % (Auto) 0.3 Absolute Neuts (auto) 4.2 Absolute Lymphs (auto) 2.09 Total Counted Not Reportable Sodium 139 Potassium 3.8 Chloride 107 Carbon Dioxide 29.0 Anion Gap 3 L BUN 12 Creatinine 0.87 Estim Creat Clear Calc 51.78 Est GFR (MDRD) Af Amer 107 Est GFR (MDRD) Non-Af 89 BUN/Creatinine Ratio 13.7 Glucose 96 Calcium 8.2 L Magnesium Total Bilirubin 0.70 AST 20 ALT 22 Alkaline Phosphatase 56 Total Protein 7.5 Albumin 4.0 Globulin 3.5 Albumin/Globulin Ratio 1.1 Lipase 122 Urine Color Yellow Urine Clarity Clear Urine pH 6.0 Ur Specific [place] 1.015 Urine Protein Negative Urine Glucose (UA) NEGATIVE Urine Ketones Negative Urine Occult Blood Negative Urine Nitrite Negative Urine Bilirubin Negative Urine Urobilinogen Normal Ur Leukocyte Esterase Negative Urine RBC 0 SEEN Urine WBC 0 SEEN Ur Squamous Epith Cells 0-5 SEEN Urine Bacteria 0 SEEN Urine Mucus 0 SEEN 01/31/19 01/31/19 05:55 05:55 WBC 7.5 RBC 3.84 L Hgb 11.4 L Hct 35.0 L MCV 91.1 MCH 29.7 MCHC 32.6 RDW 14.4 RDW Differential 47.2 H Plt Count 153 MPV 11.0 Immature Gran % (Auto) 0.300 Neut % (Auto) 75.4 H Lymph % (Auto) 15.1 L [place] % (Auto) 7.4 Eos % (Auto) 1.7 Baso % (Auto) 0.1 Absolute Neuts (auto) 5.6 Absolute Lymphs (auto) 1.13 Total Counted Not Reportable Sodium 141 Potassium 4.2 Chloride 110 H Carbon Dioxide 25.0 Anion Gap 6 BUN 12 Creatinine 0.75 Estim Creat Clear Calc 45.05 Est GFR (MDRD) Af Amer 127 Est GFR (MDRD) Non-Af 105 BUN/Creatinine Ratio 15.9 Glucose 110 H Calcium 7.8 L Magnesium 2.0 Total Bilirubin 0.90 AST 21 ALT 22 Alkaline Phosphatase 53 Total Protein 6.8 Albumin 3.5 Globulin 3.3 Albumin/Globulin Ratio 1.1 Lipase Urine Color Urine Clarity Urine pH Ur Specific [place] Urine Protein Urine Glucose (UA) Urine Ketones Urine Occult Blood Urine Nitrite Urine Bilirubin Urine Urobilinogen Ur Leukocyte Esterase Urine RBC Urine WBC Ur Squamous Epith Cells Urine Bacteria Urine Mucus Discharge Diet: Low fat/ Low Cholesterol Discharge Activity: Return to Normal Activity Call your doctor if you observe: Inability to urinate, Uncontrolled pain Home Medications: Medications to take at Discharge Aspirin [Aspirin, Baby] 81 mg PO DAILY 03/05/16 Nitroglycerin [Nitrostat] 0.4 mg SUBLINGUAL Q5M PRN 04/15/16 diphenhydramine 25 mg-acetaminophen 500 mg tablet 2 tab PO QHS PRN tab 10/22/17 carvedilol 12.5 mg tablet 12.5 mg PO BID #180 tab 10/03/18 isosorbide mononitrate ER 30 mg tablet,extended release 24 hr 30 mg PO QAM #90 tab 10/03/18 sacubitril 24 mg-valsartan 26 mg tablet 1 tab PO BID #60 tab 11/02/18 simvastatin 20 mg tablet 20 mg PO QHS #90 tab 12/05/18 clopidogrel 75 mg tablet 75 mg PO DAILY #90 tab 01/16/19 Primary Care Physician: Shailesh Mancini [Primary Care Provider] - Please follow up with your Primary Care Physician in: 1 Week Disposition: Home Minutes spent on discharge:: 35 Patient Condition:: Stable Medical Necessity - Tobacco Use Smoking Status: Never smoker Meaningful Use Info Meaningful Use Diagnoses (Choose all that apply): None applicable <Natanael Nowak - Last Filed: 01/31/19 16:21> Discharge Date and Diagnosis - Secondary Discharge Diagnosis Chronic Problems (Last Updated 12/29/18 @ 10:50 by Alexia Alexander) Stented coronary artery (Chronic ~12/28/18) PTCA/BMS to prox LAD 08/02/2008; 12/28/2018: Successful PTCA/LAVINIA of proximal LCX with a 3.0 x 12 Promus Synergy. FFR of RCA negative per LANAN @ [facility] 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) Essential hypertension (Chronic) History of placement of internal cardiac defibrillator (Chronic) ICD Implant 04/11/2009, ICD Gen Change 04/16/2016 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 (Chronic) Cardiomyopathy, ischemic (Chronic) Chronic systolic congestive heart failure (Chronic) HLD (hyperlipidemia) (Chronic) Abnormal result of cardiovascular function study, unspecified (Chronic) High risk medication use (Chronic) Iron deficiency anemia (Chronic) Chest pain, precordial (Chronic) Atherosclerotic heart disease of [place] coronary artery without angina pectoris (Chronic) PTCA/BMS to prox LAD 08/02/2008; 12/28/2018: Successful PTCA/LAVINIA of proximal LCX with a 3.0 x 12 Promus Synergy. FFR of RCA negative per DJN @ [facility] Dyspnea (Chronic) Fatigue (Chronic) Hypokalemia (Chronic) Hyperlipidemia (Chronic) Benign prostatic hypertrophy (Chronic) Hospital Course and Treatment Imaging Results: 01/31/19 09:00 Abd Inc Decub and/or Erect [RAD] Routine 01/31/19 09:55 Small Bowel Series Only [RAD] Urgent Summary of Care Provided: The patient is a 84 year old M [] - Physical Exam Vital Signs Temp Pulse Resp BP Pulse Ox 97.7 F L 61 18 114/58 L 100 01/31/19 13:48 01/31/19 13:48 01/31/19 13:48 01/31/19 13:48 01/31/19 13:48 Oxygen Flow Rate (L/min) 100 Oxygen Delivery Method Room Air Weight: 126 lb 12.253 oz Body Mass Index (BMI) 22.4 Intake and Output for Last 24 Hours 01/29/19 01/30/19 01/31/19 23:59 23:59 23:59 Intake Total 1007 / 1007 Output Total 355 / 355 Balance 652 / 652 Laboratory Tests Past 24 Hrs 01/30/19 01/30/19 01/30/19 23:15 23:15 23:17 WBC 7.5 RBC 3.94 L Hgb 12.0 L Hct 36.2 L MCV 91.9 MCH 30.5 MCHC 33.1 RDW 14.5 RDW Differential 47.4 H Plt Count 179 MPV 11.0 Immature Gran % (Auto) 0.100 Neut % (Auto) 55.3 Lymph % (Auto) 27.7 [place] % (Auto) 11.3 H Eos % (Auto) 5.3 H Baso % (Auto) 0.3 Absolute Neuts (auto) 4.2 Absolute Lymphs (auto) 2.09 Total Counted Not Reportable Sodium 139 Potassium 3.8 Chloride 107 Carbon Dioxide 29.0 Anion Gap 3 L BUN 12 Creatinine 0.87 Estim Creat Clear Calc 51.78 Est GFR (MDRD) Af Amer 107 Est GFR (MDRD) Non-Af 89 BUN/Creatinine Ratio 13.7 Glucose 96 Calcium 8.2 L Magnesium Total Bilirubin 0.70 AST 20 ALT 22 Alkaline Phosphatase 56 Total Protein 7.5 Albumin 4.0 Globulin 3.5 Albumin/Globulin Ratio 1.1 Lipase 122 Urine Color Yellow Urine Clarity Clear Urine pH 6.0 Ur Specific [place] 1.015 Urine Protein Negative Urine Glucose (UA) NEGATIVE Urine Ketones Negative Urine Occult Blood Negative Urine Nitrite Negative Urine Bilirubin Negative Urine Urobilinogen Normal Ur Leukocyte Esterase Negative Urine RBC 0 SEEN Urine WBC 0 SEEN Ur Squamous Epith Cells 0-5 SEEN Urine Bacteria 0 SEEN Urine Mucus 0 SEEN 01/31/19 01/31/19 05:55 05:55 WBC 7.5 RBC 3.84 L Hgb 11.4 L Hct 35.0 L MCV 91.1 MCH 29.7 MCHC 32.6 RDW 14.4 RDW Differential 47.2 H Plt Count 153 MPV 11.0 Immature Gran % (Auto) 0.300 Neut % (Auto) 75.4 H Lymph % (Auto) 15.1 L [place] % (Auto) 7.4 Eos % (Auto) 1.7 Baso % (Auto) 0.1 Absolute Neuts (auto) 5.6 Absolute Lymphs (auto) 1.13 Total Counted Not Reportable Sodium 141 Potassium 4.2 Chloride 110 H Carbon Dioxide 25.0 Anion Gap 6 BUN 12 Creatinine 0.75 Estim Creat Clear Calc 45.05 Est GFR (MDRD) Af Amer 127 Est GFR (MDRD) Non-Af 105 BUN/Creatinine Ratio 15.9 Glucose 110 H Calcium 7.8 L Magnesium 2.0 Total Bilirubin 0.90 AST 21 ALT 22 Alkaline Phosphatase 53 Total Protein 6.8 Albumin 3.5 Globulin 3.3 Albumin/Globulin Ratio 1.1 Lipase Urine Color Urine Clarity Urine pH Ur Specific [place] Urine Protein Urine Glucose (UA) Urine Ketones Urine Occult Blood Urine Nitrite Urine Bilirubin Urine Urobilinogen Ur Leukocyte Esterase Urine RBC Urine WBC Ur Squamous Epith Cells Urine Bacteria Urine Mucus Code Visit Addendum: Dr. Nowak I personally examined the patient and reviewed the chart. I agree with the above. 84-year-old male presenting with what appears to be a small bowel obstruction. CT abdomen pelvis showed a likely proximal small bowel obstruction, an NG tube was inserted that drain 70 cc, and he proceeded to drain another 30 through the course of the day. He ended up having flatus as well as a bowel movement in the afternoon and was advanced in his diet. He has tolerated clears and would like to go home. And as long as he tolerates a regular diet he will be discharged later this evening. He will need to follow-up with his primary care physician in 3-5 days. Inpatient E&M: [id number] Disch Hosp
--- NOTE | 2019-01-31 14:33 | DS.PCM_ITS ---
<Quyen Alarcon - Last Filed: 01/31/19 14:34> Discharge Date and Diagnosis Date of Admission: 01/31/19 Date of Discharge: 01/31/19 - Primary Discharge Diagnosis Active and Suspected Problems (Last Updated 12/29/18 @ 10:50 by Alexia Alexander) 1. Small bowel obstruction 2. CAD status post recent drug-eluting cardiac stent 12/28/2018 3. Chronic systolic CHF/ischemic cardiomyopathy 4. Status post ICD 5. Hypertension 6. Hyperlipidemia 7. BPH - Secondary Discharge Diagnosis Chronic Problems (Last Updated 12/29/18 @ 10:50 by Alexia Alexander) Stented coronary artery (Chronic ~12/28/18) PTCA/BMS to prox LAD 08/02/2008; 12/28/2018: Successful PTCA/LAVINIA of proximal LCX with a 3.0 x 12 Promus Synergy. FFR of RCA negative per DJN @ [facility] 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) Essential hypertension (Chronic) History of placement of internal cardiac defibrillator (Chronic) ICD Implant 04/11/2009, ICD Gen Change 04/16/2016 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 (Chronic) Cardiomyopathy, ischemic (Chronic) Chronic systolic congestive heart failure (Chronic) HLD (hyperlipidemia) (Chronic) Abnormal result of cardiovascular function study, unspecified (Chronic) High risk medication use (Chronic) Iron deficiency anemia (Chronic) Chest pain, precordial (Chronic) Atherosclerotic heart disease of [place] coronary artery without angina pectoris (Chronic) PTCA/BMS to prox LAD 08/02/2008; 12/28/2018: Successful PTCA/LAVINIA of proximal LCX with a 3.0 x 12 Promus Synergy. FFR of RCA negative per DJN @ [facility] Dyspnea (Chronic) Fatigue (Chronic) Hypokalemia (Chronic) Hyperlipidemia (Chronic) Benign prostatic hypertrophy (Chronic) Hospital Course and Treatment Imaging Results: Diagnostic Data Abdomen/Pelvis CT 01/30/19 23:04 IMPRESSION: 1. CT findings are consistent with proximal small bowel obstruction. 2. Large right-sided renal cyst. Electronically Signed: Char Chapman MD at 0:10 EDT , Service support , KUB X-Ray 01/31/19 01:10 IMPRESSION: 1. NG tube tip within the stomach. Previously seen gastric distention is improved. 2. Small bowel obstruction. at 0421 Reported and signed by: Missael Ceron MD Electronically Signed: Missael Ceron, at 4:20 EDT Tel , Service support , Abdomen X-Ray 01/31/19 09:00 IMPRESSION: Moderate amount of fecal material is seen in the colon. There is no evidence of a small bowel obstruction at this time. Electronically Signed: Onofre Vincent, at 12:39 EDT , Service support , Small Bowel X-Ray 01/31/19 09:55 IMPRESSION: No evidence of small bowel obstruction at this time. Electronically Signed: Onofre Vincent, at 13:00 EDT , Service support , Dr. Dougherty- General Surgery Operations: None Procedures: None Summary of Care Provided: The patient is a 84 year old M admitted 01/31/19 due to abdominal pain. 1. Small bowel obstruction-CT of abdomen and pelvis on admission shows proximal small bowel obstruction. Abdominal x-ray this morning shows moderate amount of fecal material in the colon no evidence of small bowel obstruction. Small bowel x-ray again shows no evidence of small bowel obstruction. Abdominal pain improved. NG removed. Patient tolerating regular diet. Follow-up with primary care physician in 1 week. Follow-up with general surgery, Dr. Dougherty if further issues arise. 2. CAD status post recent drug-eluting cardiac stent 12/28/2018-continue aspirin, Plavix, statin, beta-simran. 3. Chronic systolic CHF/ischemic cardiomyopathy-echo 12/28/2018 with EF 25-30%. Follows with Dr. Abbott. 4. Status post ICD 5. Hypertension-stable, continue current regimen. 6. Hyperlipidemia-continue statin. 7. BPH-not on regimen. General: Alert, Oriented x3, Cooperative HEENT: Atraumatic, PERRLA, EOMI, Normocephalic Oral: Dry Mucosa Neck: Supple, No JVD, Negative Carotid Bruits Lungs: Clear to auscultation, Normal air movement Cardiovascular: Regular rate, Regular Rhythm, Normal S1, Normal S2, No murmurs Abdomen: Bowel Sounds Present, Soft, Non Tender, Non-Distended Extremities: No clubbing, No cyanosis, No edema, Capillary Refill Less than 3 Seconds Skin: No rashes, No breakdown Musculoskeletal: No Tenderness to Palpation of Joints or Extremities Neurological: Cranial nerves II-XII grossly intact, Neuro grossly intact Psych/Mental Status: Normal Affect, Appropriate Patient seen and examined prior to discharge. Physical assessment as noted above. Patient is stable for discharge with follow up recommendations as noted above. This patient was seen by MORTEZA Perla under the supervision of Dr. Doc hubbard. - Physical Exam Vital Signs Temp Pulse Resp BP Pulse Ox 97.7 F L 61 18 114/58 L 100 01/31/19 13:48 01/31/19 13:48 01/31/19 13:48 01/31/19 13:48 01/31/19 13:48 Oxygen Flow Rate (L/min) 100 Oxygen Delivery Method Room Air Weight: 126 lb 12.253 oz Body Mass Index (BMI) 22.4 Intake and Output for Last 24 Hours 01/29/19 01/30/19 01/31/19 23:59 23:59 23:59 Intake Total 1007 / 1007 Output Total 355 / 355 Balance 652 / 652 Laboratory Tests Past 24 Hrs 01/30/19 01/30/19 01/30/19 23:15 23:15 23:17 WBC 7.5 RBC 3.94 L Hgb 12.0 L Hct 36.2 L MCV 91.9 MCH 30.5 MCHC 33.1 RDW 14.5 RDW Differential 47.4 H Plt Count 179 MPV 11.0 Immature Gran % (Auto) 0.100 Neut % (Auto) 55.3 Lymph % (Auto) 27.7 [place] % (Auto) 11.3 H Eos % (Auto) 5.3 H Baso % (Auto) 0.3 Absolute Neuts (auto) 4.2 Absolute Lymphs (auto) 2.09 Total Counted Not Reportable Sodium 139 Potassium 3.8 Chloride 107 Carbon Dioxide 29.0 Anion Gap 3 L BUN 12 Creatinine 0.87 Estim Creat Clear Calc 51.78 Est GFR (MDRD) Af Amer 107 Est GFR (MDRD) Non-Af 89 BUN/Creatinine Ratio 13.7 Glucose 96 Calcium 8.2 L Magnesium Total Bilirubin 0.70 AST 20 ALT 22 Alkaline Phosphatase 56 Total Protein 7.5 Albumin 4.0 Globulin 3.5 Albumin/Globulin Ratio 1.1 Lipase 122 Urine Color Yellow Urine Clarity Clear Urine pH 6.0 Ur Specific [place] 1.015 Urine Protein Negative Urine Glucose (UA) NEGATIVE Urine Ketones Negative Urine Occult Blood Negative Urine Nitrite Negative Urine Bilirubin Negative Urine Urobilinogen Normal Ur Leukocyte Esterase Negative Urine RBC 0 SEEN Urine WBC 0 SEEN Ur Squamous Epith Cells 0-5 SEEN Urine Bacteria 0 SEEN Urine Mucus 0 SEEN 01/31/19 01/31/19 05:55 05:55 WBC 7.5 RBC 3.84 L Hgb 11.4 L Hct 35.0 L MCV 91.1 MCH 29.7 MCHC 32.6 RDW 14.4 RDW Differential 47.2 H Plt Count 153 MPV 11.0 Immature Gran % (Auto) 0.300 Neut % (Auto) 75.4 H Lymph % (Auto) 15.1 L [place] % (Auto) 7.4 Eos % (Auto) 1.7 Baso % (Auto) 0.1 Absolute Neuts (auto) 5.6 Absolute Lymphs (auto) 1.13 Total Counted Not Reportable Sodium 141 Potassium 4.2 Chloride 110 H Carbon Dioxide 25.0 Anion Gap 6 BUN 12 Creatinine 0.75 Estim Creat Clear Calc 45.05 Est GFR (MDRD) Af Amer 127 Est GFR (MDRD) Non-Af 105 BUN/Creatinine Ratio 15.9 Glucose 110 H Calcium 7.8 L Magnesium 2.0 Total Bilirubin 0.90 AST 21 ALT 22 Alkaline Phosphatase 53 Total Protein 6.8 Albumin 3.5 Globulin 3.3 Albumin/Globulin Ratio 1.1 Lipase Urine Color Urine Clarity Urine pH Ur Specific [place] Urine Protein Urine Glucose (UA) Urine Ketones Urine Occult Blood Urine Nitrite Urine Bilirubin Urine Urobilinogen Ur Leukocyte Esterase Urine RBC Urine WBC Ur Squamous Epith Cells Urine Bacteria Urine Mucus Discharge Diet: Low fat/ Low Cholesterol Discharge Activity: Return to Normal Activity Call your doctor if you observe: Inability to urinate, Uncontrolled pain Home Medications: Medications to take at Discharge Aspirin [Aspirin, Baby] 81 mg PO DAILY 03/05/16 Nitroglycerin [Nitrostat] 0.4 mg SUBLINGUAL Q5M PRN 04/15/16 diphenhydramine 25 mg-acetaminophen 500 mg tablet 2 tab PO QHS PRN tab 10/22/17 carvedilol 12.5 mg tablet 12.5 mg PO BID #180 tab 10/03/18 isosorbide mononitrate ER 30 mg tablet,extended release 24 hr 30 mg PO QAM #90 tab 10/03/18 sacubitril 24 mg-valsartan 26 mg tablet 1 tab PO BID #60 tab 11/02/18 simvastatin 20 mg tablet 20 mg PO QHS #90 tab 12/05/18 clopidogrel 75 mg tablet 75 mg PO DAILY #90 tab 01/16/19 Primary Care Physician: Shailesh Mancini [Primary Care Provider] - Please follow up with your Primary Care Physician in: 1 Week Disposition: Home Minutes spent on discharge:: 35 Patient Condition:: Stable Medical Necessity - Tobacco Use Smoking Status: Never smoker Meaningful Use Info Meaningful Use Diagnoses (Choose all that apply): None applicable <Natanael Nowak - Last Filed: 01/31/19 16:21> Discharge Date and Diagnosis - Secondary Discharge Diagnosis Chronic Problems (Last Updated 12/29/18 @ 10:50 by Alexia Alexander) Stented coronary artery (Chronic ~12/28/18) PTCA/BMS to prox LAD 08/02/2008; 12/28/2018: Successful PTCA/LAVINIA of proximal LCX with a 3.0 x 12 Promus Synergy. FFR of RCA negative per LANAN @ [facility] 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) Essential hypertension (Chronic) History of placement of internal cardiac defibrillator (Chronic) ICD Implant 04/11/2009, ICD Gen Change 04/16/2016 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 (Chronic) Cardiomyopathy, ischemic (Chronic) Chronic systolic congestive heart failure (Chronic) HLD (hyperlipidemia) (Chronic) Abnormal result of cardiovascular function study, unspecified (Chronic) High risk medication use (Chronic) Iron deficiency anemia (Chronic) Chest pain, precordial (Chronic) Atherosclerotic heart disease of [place] coronary artery without angina pectoris (Chronic) PTCA/BMS to prox LAD 08/02/2008; 12/28/2018: Successful PTCA/LAVINIA of proximal LCX with a 3.0 x 12 Promus Synergy. FFR of RCA negative per DJN @ [facility] Dyspnea (Chronic) Fatigue (Chronic) Hypokalemia (Chronic) Hyperlipidemia (Chronic) Benign prostatic hypertrophy (Chronic) Hospital Course and Treatment Imaging Results: 01/31/19 09:00 Abd Inc Decub and/or Erect [RAD] Routine 01/31/19 09:55 Small Bowel Series Only [RAD] Urgent Summary of Care Provided: The patient is a 84 year old M [] - Physical Exam Vital Signs Temp Pulse Resp BP Pulse Ox 97.7 F L 61 18 114/58 L 100 01/31/19 13:48 01/31/19 13:48 01/31/19 13:48 01/31/19 13:48 01/31/19 13:48 Oxygen Flow Rate (L/min) 100 Oxygen Delivery Method Room Air Weight: 126 lb 12.253 oz Body Mass Index (BMI) 22.4 Intake and Output for Last 24 Hours 01/29/19 01/30/19 01/31/19 23:59 23:59 23:59 Intake Total 1007 / 1007 Output Total 355 / 355 Balance 652 / 652 Laboratory Tests Past 24 Hrs 01/30/19 01/30/19 01/30/19 23:15 23:15 23:17 WBC 7.5 RBC 3.94 L Hgb 12.0 L Hct 36.2 L MCV 91.9 MCH 30.5 MCHC 33.1 RDW 14.5 RDW Differential 47.4 H Plt Count 179 MPV 11.0 Immature Gran % (Auto) 0.100 Neut % (Auto) 55.3 Lymph % (Auto) 27.7 [place] % (Auto) 11.3 H Eos % (Auto) 5.3 H Baso % (Auto) 0.3 Absolute Neuts (auto) 4.2 Absolute Lymphs (auto) 2.09 Total Counted Not Reportable Sodium 139 Potassium 3.8 Chloride 107 Carbon Dioxide 29.0 Anion Gap 3 L BUN 12 Creatinine 0.87 Estim Creat Clear Calc 51.78 Est GFR (MDRD) Af Amer 107 Est GFR (MDRD) Non-Af 89 BUN/Creatinine Ratio 13.7 Glucose 96 Calcium 8.2 L Magnesium Total Bilirubin 0.70 AST 20 ALT 22 Alkaline Phosphatase 56 Total Protein 7.5 Albumin 4.0 Globulin 3.5 Albumin/Globulin Ratio 1.1 Lipase 122 Urine Color Yellow Urine Clarity Clear Urine pH 6.0 Ur Specific [place] 1.015 Urine Protein Negative Urine Glucose (UA) NEGATIVE Urine Ketones Negative Urine Occult Blood Negative Urine Nitrite Negative Urine Bilirubin Negative Urine Urobilinogen Normal Ur Leukocyte Esterase Negative Urine RBC 0 SEEN Urine WBC 0 SEEN Ur Squamous Epith Cells 0-5 SEEN Urine Bacteria 0 SEEN Urine Mucus 0 SEEN 01/31/19 01/31/19 05:55 05:55 WBC 7.5 RBC 3.84 L Hgb 11.4 L Hct 35.0 L MCV 91.1 MCH 29.7 MCHC 32.6 RDW 14.4 RDW Differential 47.2 H Plt Count 153 MPV 11.0 Immature Gran % (Auto) 0.300 Neut % (Auto) 75.4 H Lymph % (Auto) 15.1 L [place] % (Auto) 7.4 Eos % (Auto) 1.7 Baso % (Auto) 0.1 Absolute Neuts (auto) 5.6 Absolute Lymphs (auto) 1.13 Total Counted Not Reportable Sodium 141 Potassium 4.2 Chloride 110 H Carbon Dioxide 25.0 Anion Gap 6 BUN 12 Creatinine 0.75 Estim Creat Clear Calc 45.05 Est GFR (MDRD) Af Amer 127 Est GFR (MDRD) Non-Af 105 BUN/Creatinine Ratio 15.9 Glucose 110 H Calcium 7.8 L Magnesium 2.0 Total Bilirubin 0.90 AST 21 ALT 22 Alkaline Phosphatase 53 Total Protein 6.8 Albumin 3.5 Globulin 3.3 Albumin/Globulin Ratio 1.1 Lipase Urine Color Urine Clarity Urine pH Ur Specific [place] Urine Protein Urine Glucose (UA) Urine Ketones Urine Occult Blood Urine Nitrite Urine Bilirubin Urine Urobilinogen Ur Leukocyte Esterase Urine RBC Urine WBC Ur Squamous Epith Cells Urine Bacteria Urine Mucus Code Visit Addendum: Dr. Nowak I personally examined the patient and reviewed the chart. I agree with the above. 84-year-old male presenting with what appears to be a small bowel obstruction. CT abdomen pelvis showed a likely proximal small bowel obstruction, an NG tube was inserted that drain 70 cc, and he proceeded to drain another 30 through the course of the day. He ended up having flatus as well as a bowel movement in the afternoon and was advanced in his diet. He has tolerated clears and would like to go home. And as long as he tolerates a regular diet he will be discharged later this evening. He will need to follow- up with his primary care physician in 3-5 days. Inpatient E&M: 12436 Disch Hosp
== END 2019-01-31 18:05 | disposition home or self-care (01) ==
LOC: ED 23:13 → MS3 01-31 01:03
PROVIDERS: Admitting Provider Family Medicine; Emergency Provider Emergency Medicine; Family Provider Family Medicine; PCP Family Medicine; Visit Provider Family Medicine
DX: K56.609 Unspecified intestinal obstruction, unspecified as to partial versus complete obstruction (principal); I25.10 Atherosclerotic heart disease of native coronary artery without angina pectoris; E78.5 Hyperlipidemia, unspecified; N40.0 Benign prostatic hyperplasia without lower urinary tract symptoms; I11.0 Hypertensive heart disease with heart failure; I50.22 Chronic systolic (congestive) heart failure; N45.2 Orchitis; I25.2 Old myocardial infarction; Z95.810 Presence of automatic (implantable) cardiac defibrillator; Z79.899 Other long term (current) drug therapy; Z79.82 Long term (current) use of aspirin; Z79.02 Long term (current) use of antithrombotics/antiplatelets; Z95.5 Presence of coronary angioplasty implant and graft
CPT/HCPCS: 36415; 74018; 74019; 74176; 74250; 80053; 81001; 83690; 83735; 85025; 96361; 96374; 96375; 97802; 99218; 99285; J7030; J7040; A4216; G0378

== ENCOUNTER → 2019-02-15 16:05 | Outpatient (CLI) | payer MEDICARE, SELFPAY ==
[2018-12-28 14:17] VITALS: BMI 22.3
[2019-02-15 15:32] VITALS: BMI 22.3
[2019-02-15 17:48] LABS: Anion Gap 6 (5-15); BUN 22 mg/dL (7-18); BUN/Creat Ratio 19.8 RATIO (10-20); Calcium,Total 9.3 mg/dL (8.5-10.1); Chloride 106 mmol/L (98-107); Creatinine, Serum 1.11 mg/dL (0.70-1.30); EST Glomerular Filtration Rate 67 mL/min (>60); Est Glom Filt Rate - Afr Amer 81 mL/min (>60); Glucose 112 mg/dL (74-106); Potassium 4.5 mmol/L (3.5-5.1); Sodium Level 142 mmol/L (136-145)
== END ==
PROVIDERS: Family Provider Family Medicine; PCP Family Medicine; Referring Provider Physician Assistant Medical; Visit Provider Physician Assistant Medical
DX: I50.22 Chronic systolic (congestive) heart failure (principal)
CPT/HCPCS: 36415; 80048

== ENCOUNTER → 2019-04-17 14:10 | Outpatient (CLI) | payer MEDICARE, SELFPAY ==
[2018-12-28 14:17] VITALS: BMI 22.3
[2019-04-17 13:08] VITALS: BMI 21.9
--- NOTE | 2019-04-17 14:15 | RAD_ITS ---
HISTORY: SOBShort of Breath/DyspneaRAD - Chest EXAM: XR Chest 2 Views: COMPARISON: December 27, 2018 FINDINGS: # of images incl. paperwork: 2 Dual lead left subclavian cardiac pacer/defibrillator is unchanged in position. Calcific plaque within the aortic arch persists. Minimal age-related fibrotic lung disease is similar Heart is not enlarged. Thoracic spondylosis remains mild Pulmonary vascularity is distinct. No effusions. RAD/Chest PA and Lateral IMPRESSION: No acute disease. No change. at 0431 Reported and signed by: Ralph Zaman MD Electronically Signed: Ralph Zaman MD at 4:30 EDT Tel , Service support ,
[2019-04-17 14:44] LABS: Hematocrit 38.5 % (40-54); Hemoglobin 12.9 g/dl (13.0-16.5)
[2019-04-17 15:13] LABS: BNP,B-Type NATRIURETIC PEPTIDE 107.2 pg/mL (0-100)
== END ==
PROVIDERS: Family Provider Family Medicine; PCP Family Medicine; Referring Provider Physician Assistant Medical; Visit Provider Physician Assistant Medical
DX: R06.09 Other forms of dyspnea (principal); D64.9 Anemia, unspecified; I50.22 Chronic systolic (congestive) heart failure
CPT/HCPCS: 36415; 71046; 83880; 85014; 85018

== ENCOUNTER → 2019-07-31 11:32 | Outpatient (CLI) | payer MEDICARE, SELFPAY ==
[2018-12-28 14:17] VITALS: BMI 22.3
[2019-04-17 13:08] VITALS: BMI 21.9
[2019-07-31 15:08] LABS: Absolute Lymphocyte Count 1.49 X10^3/uL (0.83-4.51); Basophil# 0.03 X10^3/uL; Basophil% 0.7 % (0-1); Eosinophil# 0.32 X10^3/uL; Eosinophils% 7.5 % (0-5); Hematocrit 39.7 % (40-54); Hemoglobin 13.1 g/dL (13.0-16.5); Lymphocyte # 1.49 X10^3/ul (4.0); Lymphocyte % 34.9 % (19-41); Mean Corpuscular Hgb 30.9 pg (27.0-32.0); Mean Corpuscular Volume 93.6 fL (80-94); Monocyte# 0.41 X10^3/uL; Monocyte% 9.6 % (0-10); NRBC Flagged by Analyzer 0 % (0-5); Neutrophil # 2.02 X10^3/uL (2.7-7.7); Neutrophil % 47.3 % (47-70); Platelet Count 153 K/mm3 (150-450); RBC Distribution Width CV 13.8 % (11.6-14.6); RBC Distribution Width SD 46.6 fl (35.1-43.9); Red Blood Count 4.24 M/mm3 (4.6-6.2); White Blood Count 4.3 K/mm3 (4.4-11.0)
[2019-07-31 15:27] LABS: Hemoglobin A1c 5.5 % (4.2-6.3)
[2019-07-31 15:34] LABS: ALB/GLOB Ratio 1.2 RATIO (0.9-2.4); AST(SGOT) 31 U/L (15-37); Alanine Aminotransfer ALT/SGPT 29 U/L (16-61); Albumin, Serum 4.1 g/dL (3.2-5.0); Alkaline Phosphatase 50 U/L (45-117); Anion Gap 7 (5-15); BUN 10 mg/dL (7-18); BUN/Creat Ratio 10.7 RATIO (10-20); Calcium,Total 8.6 mg/dL (8.5-10.1); Chloride 107 mmol/L (98-107); Creatinine, Serum 0.94 mg/dL (0.70-1.30); EST Glomerular Filtration Rate 82 mL/min (>60); Est Glom Filt Rate - Afr Amer 99 mL/min (>60); Ferritin 104 ng/mL (26-388); Globulin 3.3 g/dL (2.2-4.2); Glucose 88 mg/dL (74-106); Iron 107 ug/dL (65-175); Potassium 4.1 mmol/L (3.5-5.1); Protein, Total 7.4 g/dL (6.4-8.2); Sodium Level 141 mmol/L (136-145); Thyroid Stim Hormone (TSH) 0.85 uIU/mL (0.358-3.74); Vitamin B12 271 pg/mL (211-911)
== END ==
PROVIDERS: Family Provider Family Medicine; PCP Family Medicine; Visit Provider Family Medicine
DX: N28.1 Cyst of kidney, acquired (principal); I10 Essential (primary) hypertension; I50.9 Heart failure, unspecified; R73.01 Impaired fasting glucose
CPT/HCPCS: 36415; 80053; 82607; 82728; 83036; 83540; 84443; 85025

== ENCOUNTER 2019-10-01 22:22 | Emergency (ER) | payer MEDICARE, SELFPAY ==
[2018-12-28 14:17] VITALS: BMI 22.3
[2019-08-17 15:04] VITALS: BMI 21.9
[2019-10-01 22:23] VITALS: BP 161/78; PULSE 83; RESP 14; TEMP 37; O2SAT 98; BMI 23.1
--- NOTE | 2019-10-01 22:36 | ED.VIS.GEN ---
History of Present Illness Chief Complaint: Fall Informant: Patient Narrative: Presents status post mechanical fall. He was walking on carpet in the dark in tripped. He stated that he suffered an abrasion above his right eyebrow. He stated he does not have any significant pain. There is no swelling. He is on Plavix and a baby aspirin and was told that he should come in for further evaluation if he ever hits his head. He did not lose consciousness. He has no headache. No nausea vomiting or other symptoms. He stated that they scared him in the coming in. He has no symptoms. - Past Medical History (1) Elevated troponin Status: Acute (2) General weakness Status: Acute (3) Orchitis of right testicle Status: Acute (4) Otitis media Status: Acute (5) SBO (small bowel obstruction) Status: Acute (6) Sepsis Status: Acute (7) Abnormal result of cardiovascular function study, unspecified Status: Chronic (8) Angina pectoris Status: Chronic (9) Atherosclerotic heart disease of [place] coronary artery without angina pectoris Status: Chronic Comment: PTCA/BMS to prox LAD 08/02/2008; 12/28/2018: Successful PTCA/LAVINIA of proximal LCX with a 3.0 x 12 Promus Synergy. FFR of RCA negative per DJN @ [facility] (10) Benign prostatic hypertrophy Status: Chronic (11) Cardiomyopathy, ischemic Status: Chronic (12) Chest pain, precordial Status: Chronic (13) Chronic systolic congestive heart failure Status: Chronic (14) 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 Status: Chronic (15) Dyspnea Status: Chronic (16) Essential hypertension Status: Chronic (17) Fatigue Status: Chronic (18) HLD (hyperlipidemia) Status: Chronic (19) High risk medication use Status: Chronic (20) History of placement of internal cardiac defibrillator Status: Chronic Comment: ICD Implant 04/11/2009, ICD Gen Change 04/16/2016 (21) Hyperlipidemia Status: Chronic (22) Hypokalemia Status: Chronic (23) Iron deficiency anemia Status: Chronic (24) 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 FFR of RCA negative per DJN @ [facility] Past Medical History - Allergies and Home Meds Allergies/Adverse Reactions: Allergies morphine Allergy (Intermediate, Verified 10/01/19 22:25) Rash zolpidem tartrate [From Ambien] Adverse Reaction (Intermediate, Verified 10/01/19 22:25) CONFUSION Primary Care Physician: Shailesh Mancini [Primary Care Provider] - Prior records reviewed: Yes Past Medical History: - - See problem list Surgical History: appendectomy, cholecystectomy, TURP, - - heart cath with stents last one 12/28/18, had prostate surgery, includes upper and lower endoscopies as noted in July 19, 2012; laparoscopic Sydnee fundoplication with lysis of adhesions, has had a previous TURP in 2007, retinal eye surgery in 2011, pacemaker defibrillator placed in 2008, has had a laser prostatectomy in January 2014, cataract excision, 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 [facility] Lives: With Family Smoking Status: Never smoker Alcohol: None Drugs: None - Family History Maternal Family History: Family History (Last Reviewed 08/17/19 @ 14:59 by CHRISTOPHER Yanes) Mother CAD (coronary artery disease) CVA (cerebral vascular accident) Myocardial infarction, Onset Age: 67 Hypertension Brother CAD (coronary artery disease) Hypertension Cancer Myocardial infarction, Onset Age: 73 Father Myocardial infarction, Onset Age: 77 Daughter Cancer Son Myocardial infarction, Onset Age: 46 Family History: Reports: No pertinent history Paternal Family History: Family History (Last Reviewed 08/17/19 @ 14:59 by CHRISTOPHER Yanes) Mother CAD (coronary artery disease) CVA (cerebral vascular accident) Myocardial infarction, Onset Age: 67 Hypertension Brother CAD (coronary artery disease) Hypertension Cancer Myocardial infarction, Onset Age: 73 Father Myocardial infarction, Onset Age: 77 Daughter Cancer Son Myocardial infarction, Onset Age: 46 Family History: Reports: No pertinent history Review of Systems General: Denies: Chills, Fever, Sweats Eyes: Denies: Visual changes - bilaterally, Diplopia ENT: Denies: Rhinorrhea, Sore throat Cardiovascular: Denies: Chest pain, Palpitations Respiratory: Denies: Dyspnea, Cough, Dyspnea on exertion Gastrointestinal: Denies: Abdominal pain, Nausea, Vomiting, Diarrhea, Melena, Hematochezia Genitourinary: Denies: Dysuria, Hematuria, Frequency Musculoskeletal: Denies: Back pain, Extremity Pain Skin: Reports: Abrasions - Has a linear abrasion measuring 1 inch x 3 mm on his forehead just above his right eyebrow. There is no soft tissue swelling bony tenderness or hematoma. There is no swelling. Denies: Rash, Wounds Neurological: Denies: Headache, Weakness, Numbness Physical Exam Vital Signs/Narrative: Vital Signs Temp Pulse Resp BP Pulse Ox 10/01/19 22:23 98.6 F 83 14 161/78 H 98 General: Well nourished, Well developed, No Acute Distress Head: Normocephalic, Atraumatic Eyes: Perrl, EOMI ENT: Moist mucous membranes, No rhinorrhea Neck: Supple, Nontender Cardiovascular: Regular rate, Regular rhythm, No murmurs Respiratory: No distress, CTA bilaterally, Chest nontender Abdomen: Soft, Nontender, Nondistended, Normal bowel sounds Back: Nontender, Normal Inspection Extremities: Nontender, No edema Skin: - - Mild abrasion above his right eyebrow. 1 inch x 2 mm. No swelling. Negative for: Normal color, No rash Neurological: Alert, Oriented x3, Cranial nerves II-XII grossly intact, Normal Strength, Normal Sensation Psychological: Normal affect, Normal Mood Diagnostic/Tx/Re-eval - Medical Decision Making Patient is a very tiny abrasion. At this time I do not feel he needs a CT of his head. There is no swelling deformity bony step-off. He has a normal neurologic exam. He will follow-up as an outpatient. Understands what to return for ED Disposition - Plan for ED Patient: Disposition: Psychiatric Hospital or Unit Diagnosis: Forehead abrasion Instructions: Abrasion Referrals: Shailesh Mancini [Primary Care Provider] -
[2019-10-01 22:52] VITALS: RESP 16
== END 2019-10-01 22:53 ==
LOC: ED 22:42
PROVIDERS: Emergency Provider Emergency Medicine; Family Provider Family Medicine; PCP Family Medicine
DX: S00.81XA Abrasion of other part of head, initial encounter (principal); W01.0XXA Fall on same level from slipping, tripping and stumbling without subsequent striking against object, initial encounter; Y93.01 Activity, walking, marching and hiking; Y92.9 Unspecified place or not applicable; Y99.9 Unspecified external cause status; E78.5 Hyperlipidemia, unspecified; I11.0 Hypertensive heart disease with heart failure; I25.10 Atherosclerotic heart disease of native coronary artery without angina pectoris; I25.5 Ischemic cardiomyopathy; I50.22 Chronic systolic (congestive) heart failure; I25.2 Old myocardial infarction; N40.0 Benign prostatic hyperplasia without lower urinary tract symptoms; Z79.02 Long term (current) use of antithrombotics/antiplatelets; Z82.3 Family history of stroke; Z82.49 Family history of ischemic heart disease and other diseases of the circulatory system; Z88.8 Allergy status to other drugs, medicaments and biological substances; Z90.49 Acquired absence of other specified parts of digestive tract; Z95.5 Presence of coronary angioplasty implant and graft; Z95.810 Presence of automatic (implantable) cardiac defibrillator; D50.9 Iron deficiency anemia, unspecified; E87.6 Hypokalemia; Z88.5 Allergy status to narcotic agent
CPT/HCPCS: 99282

== ENCOUNTER 2020-01-26 11:21 | Emergency (ER) | payer MEDICARE, SELFPAY ==
[2018-12-28 14:17] VITALS: BMI 22.3
[2020-01-26 11:22] VITALS: BP 144/74; PULSE 60; RESP 17; TEMP 36.3; O2SAT 100; BMI 21.7
--- NOTE | 2020-01-26 11:34 | ED.DCSUM_ITS ---
History of Present Illness Chief Complaint: Laceration Narrative: Patient is a pleasant 85-year-old male who presents with an injury to his left hand. He was using a table saw. A piece of wood kicked back into his left hand injuring his left second and third fingers. He states the injury was all from the small block of wood and not the sawblade itself. He had some transient numbness which has since resolved and complains of mild pain. No loss of function. He is uncertain of his last tetanus immunization. He has had difficulty controlling oozing bleeding as he is on Plavix. Injury occurred just before presentation here to the emergency department. Past Medical History - Allergies and Home Meds Allergies/Adverse Reactions: Allergies morphine Allergy (Intermediate, Verified 01/26/20 11:22) Rash zolpidem tartrate [From Ambien] Adverse Reaction (Intermediate, Verified 01/26/20 11:22) CONFUSION Primary Care Physician: Shailesh Mancini [Primary Care Provider] - Past Medical History: - - Hypertension, coronary artery disease Surgical History: appendectomy, cholecystectomy, TURP, - - heart cath with stents last one 12/28/18, had prostate surgery, includes upper and lower endoscopies as noted in July 19, 2012; laparoscopic Sydnee fundoplication with lysis of adhesions, has had a previous TURP in 2007, retinal eye surgery in 2011, pacemaker defibrillator placed in 2008, has had a laser prostatectomy in January 2014, cataract excision, 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 [facility] Smoking Status: Never smoker - Family History Maternal Family History: Family History (Last Reviewed 08/17/19 @ 14:59 by CHRISTOPHER Yanes) Mother CAD (coronary artery disease) CVA (cerebral vascular accident) Myocardial infarction, Onset Age: 67 Hypertension Brother CAD (coronary artery disease) Hypertension Cancer Myocardial infarction, Onset Age: 73 Father Myocardial infarction, Onset Age: 77 Daughter Cancer Son Myocardial infarction, Onset Age: 46 Family History: Reports: No pertinent history Paternal Family History: Family History (Last Reviewed 08/17/19 @ 14:59 by CHRISTOPHER Yanes) Mother CAD (coronary artery disease) CVA (cerebral vascular accident) Myocardial infarction, Onset Age: 67 Hypertension Brother CAD (coronary artery disease) Hypertension Cancer Myocardial infarction, Onset Age: 73 Father Myocardial infarction, Onset Age: 77 Daughter Cancer Son Myocardial infarction, Onset Age: 46 Family History: Reports: No pertinent history Review of Systems All systems negative except as indicated General: Denies: Fever Eyes: Denies: Visual changes - bilaterally ENT: Denies: Bilateral ear pain Cardiovascular: Denies: Chest pain Respiratory: Denies: Dyspnea Gastrointestinal: Denies: Nausea, Vomiting, Diarrhea Skin: Denies: Rash Neurological: Denies: Headache Physical Exam Vital Signs/Narrative: Vital Signs Temp Pulse Resp BP Pulse Ox 01/26/20 11:22 97.3 F L 60 17 144/74 H 100 General: Well nourished Head: Normocephalic Eyes: EOMI ENT: Moist mucous membranes Neck: Supple Cardiovascular: Regular rate Respiratory: No distress Extremities: - - Patient has soft tissue injuries to the left hand at the distal second and third fingers. There is a roughly 3 mm x 4 mm soft tissue avulsion at the tip of the left second finger. There is a fracture of the nail horizontally at the distal nail but the nail itself is not avulsed patient has a roughly 1.5 cm x 1 cm avulsion at the distal left third finger which does involve a portion of the nail and nailbed. There is no laceration amenable to sutured wound closure Skin: Normal color Neurological: Alert Psychological: Normal affect Diagnostic/Tx/Re-eval - Medical Decision Making Hemostatic dressing was applied by nursing staff. Bleeding controlled. Hand x- ray on my review shows a possible small avulsion fracture of the tip of the distal phalanx of the left third finger. I did touch base with orthopedics on- call, Dr. Harrison who agrees with plan for outpatient follow-up. Patient will be placed on prophylactic antibiotics. Patient understands to return for new or worsening symptoms and was discharged home. ED Disposition - Plan for ED Patient: Diagnosis: Fingertip amputation Instructions: ED Finger Tip Amputation Open Treatment Prescriptions: Cephalexin [Keflex] 500 mg PO Q6 #40 cap Prescription Printed Referrals: Shailesh Mancini [Primary Care Provider] - John Richards DO [STAFF PHYSICIAN] -
--- NOTE | 2020-01-26 11:40 | RAD_ITS ---
STUDY: X-RAY - LEFT HAND REASON FOR EXAM: Male, 85 years old. LACERATIONS TO DISTAL 2nd AND 3rd FINGERS; -- RING ARTIFACT SEEN, UNABLE TO REMOVE TECHNIQUE: 3 view(s) of the hand. COMPARISON: None. FINDINGS: Normal radiocarpal articulation. Normal distal radioulnar joint. Normal visualized carpal bones. Normal carpal articulations Normal carpometacarpal articulation of the thumb. Normal second through fifth carpometacarpal joints. Normal metacarpi. There is degenerative arthrosis of the metacarpophalangeal (MCP) joints. Normal interphalangeal joint of the thumb. Normal proximal and distal phalanges of the thumb. There is degenerative arthrosis of the metacarpophalangeal (MCP) joints. There is diffuse articular joint space narrowing of the proximal and distal interphalangeal joints of the second through fifth fingers, but without erosive changes or periarticular soft tissue swelling. Normal phalanges of the second through fifth fingers. Soft tissue injury overlying the distal aspects of the second and third digits. RAD/Hand Min 3 Views IMPRESSION: Degenerative joint disease of the hand, as described above. Soft tissue injury overlying the second and third digits. Electronically Signed: Onofre Vincent, at 12:09 EDT , Service support ,
[2020-01-26] MEDS: Diphth,Pertuss(Acell),Tet Vac 0.5 ML Vial IM (11:50)
== END 2020-01-26 12:17 | disposition home or self-care (01) ==
PROVIDERS: Emergency Provider Emergency Medicine; PCP Family Medicine
DX: S61.213A Laceration without foreign body of left middle finger without damage to nail, initial encounter (principal); I25.10 Atherosclerotic heart disease of native coronary artery without angina pectoris; I10 Essential (primary) hypertension; Y29.XXXA Contact with blunt object, undetermined intent, initial encounter; Z79.02 Long term (current) use of antithrombotics/antiplatelets; Z79.82 Long term (current) use of aspirin
CPT/HCPCS: 73130; 90471; 90715; 99282

== ENCOUNTER → 2020-02-16 13:34 | Outpatient (CLI) | payer MEDICARE, SELFPAY ==
[2018-12-28 14:17] VITALS: BMI 22.3
[2020-01-26 11:22] VITALS: BMI 21.7
[2020-02-16 14:35] LABS: Basophil# 0.03 X10^3/uL; Basophil% 0.7 % (0-1); Eosinophil# 0.19 X10^3/uL; Eosinophils% 4.4 % (0-5); Hematocrit 38.2 % (40-54); Hemoglobin 12.4 g/dL (13.0-16.5); Mean Corp Hgb Conc 32.5 g/dL (32-36); Mean Corpuscular Hgb 29.7 pg (27.0-32.0); Mean Corpuscular Volume 91.4 fL (80-94); Mean Platelet Vol. 11.2 fl (6.2-12.0); Monocyte# 0.45 X10^3/uL; Monocyte% 10.3 % (0-10); NRBC Flagged by Analyzer 0 % (0-5); Neutrophil # 1.98 X10^3/uL (2.7-7.7); Neutrophil % 45.4 % (47-70); Platelet Count 179 K/mm3 (150-450); RBC Distribution Width CV 14.2 % (11.6-14.6); RBC Distribution Width SD 47.8 fl (35.1-43.9); Red Blood Count 4.18 M/mm3 (4.6-6.2); White Blood Count 4.4 K/mm3 (4.4-11.0)
[2020-02-16 15:06] LABS: Anion Gap 4 (5-15); BUN 13 mg/dL (7-18); BUN/Creat Ratio 14.6 RATIO (10-20); Calcium,Total 8.6 mg/dL (8.5-10.1); Chloride 107 mmol/L (98-107); Creatinine, Serum 0.89 mg/dL (0.70-1.30); EST Glomerular Filtration Rate 86 mL/min (>60); Est Glom Filt Rate - Afr Amer 104 mL/min (>60); Glucose 99 mg/dL (74-106); Magnesium 2.2 mg/dL (1.6-2.6); Potassium 3.9 mmol/L (3.5-5.1); Sodium Level 140 mmol/L (136-145); Thyroid Stim Hormone (TSH) 1.07 uIU/mL (0.358-3.74)
== END ==
PROVIDERS: PCP Family Medicine; Referring Provider Physician Assistant Medical; Visit Provider Physician Assistant Medical
DX: R00.2 Palpitations (principal)
CPT/HCPCS: 36415; 80048; 83735; 84443; 85025

== ENCOUNTER → 2020-04-24 10:56 | Outpatient (CLI) | payer MEDICARE, SELFPAY ==
[2018-12-28 14:17] VITALS: BMI 22.3
[2020-04-17 10:35] VITALS: BMI 21.3
== END ==
PROVIDERS: PCP Family Medicine; Referring Provider Internal Medicine Cardiovascular Disease; Visit Provider Internal Medicine Cardiovascular Disease
DX: R00.2 Palpitations (principal)
CPT/HCPCS: 93225; 93226

== ENCOUNTER → 2020-11-04 15:50 | Outpatient (CLI) | payer MEDICARE, SELFPAY ==
[2018-12-28 14:17] VITALS: BMI 22.3
[2020-11-04 15:05] VITALS: BMI 21.2
[2020-11-04 17:21] LABS: Absolute Lymphocyte Count 1.67 X10^3/uL (0.83-4.51); Absolute Neutrophil Count 3.4 X10^3/uL (2.0-7.7); Basophil# 0.05 X10^3/uL; Basophil% 0.8 % (0-1); Eosinophil# 0.58 X10^3/uL; Eosinophils% 9.2 % (0-5); Hematocrit 41.2 % (40-54); Hemoglobin 13.5 g/dL (13.0-16.5); Lymphocyte # 1.67 X10^3/ul (4.0); Lymphocyte % 26.6 % (19-41); Mean Corp Hgb Conc 32.8 g/dL (32-36); Mean Corpuscular Hgb 29.7 pg (27.0-32.0); Mean Corpuscular Volume 90.5 fL (80-94); Mean Platelet Vol. 11.4 fl (6.2-12.0); Monocyte# 0.62 X10^3/uL; Monocyte% 9.9 % (0-10); NRBC Flagged by Analyzer 0 % (0-5); Neutrophil # 3.37 X10^3/uL (2.7-7.7); Neutrophil % 53.5 % (47-70); Platelet Count 197 K/mm3 (150-450); RBC Distribution Width CV 14.1 % (11.6-14.6); RBC Distribution Width SD 47.1 fl (35.1-43.9); Red Blood Count 4.55 M/mm3 (4.6-6.2); White Blood Count 6.3 K/mm3 (4.4-11.0)
[2020-11-04 17:55] LABS: Anion Gap 8 (5-15); BUN 23 mg/dL (7-18); BUN/Creat Ratio 21.5 RATIO (10-20); Calcium,Total 8.4 mg/dL (8.5-10.1); Chloride 102 mmol/L (98-107); Creatinine, Serum 1.07 mg/dL (0.70-1.30); EST Glomerular Filtration Rate 70 mL/min (>60); Est Glom Filt Rate - Afr Amer 85 mL/min (>60); Glucose 94 mg/dL (74-106); Potassium 3.1 mmol/L (3.5-5.1); Sodium Level 139 mmol/L (136-145)
[2020-11-04 18:02] LABS: BNP,B-Type NATRIURETIC PEPTIDE 91.3 pg/mL (0-100)
== END ==
PROVIDERS: PCP Family Medicine; Referring Provider Internal Medicine Cardiovascular Disease; Visit Provider Internal Medicine Cardiovascular Disease
DX: I25.10 Atherosclerotic heart disease of native coronary artery without angina pectoris (principal); Z95.5 Presence of coronary angioplasty implant and graft; I25.5 Ischemic cardiomyopathy; I50.22 Chronic systolic (congestive) heart failure; Z95.810 Presence of automatic (implantable) cardiac defibrillator; E78.00 Pure hypercholesterolemia, unspecified; I10 Essential (primary) hypertension
CPT/HCPCS: 36415; 80048; 83880; 85025

== ENCOUNTER → 2020-11-08 12:44 | Outpatient (CLI) | payer MEDICARE, SELFPAY ==
[2018-12-28 14:17] VITALS: BMI 22.3
[2020-11-04 15:05] VITALS: BMI 21.2
--- NOTE | 2020-11-08 12:59 | ART_ITS ---
Reason For Study: PVD Procedure A bilateral lower extremity continuous wave Doppler with analog waveform analysis,segmental pressures,and ankle brachial indexes without exercise. Left Segmental Pressures Left brachial= 112mmHg. Left posterior tibial artery = 149mmHg. Left dorsalis pedis artery = 149mmHg. Left digit = 74 mmHg. The left dorsalis pedis waveforms are triphasic. The left posterior tibial artery waveforms are triphasic. Right Segmental Pressures Right brachial= 109mmHg. Right posterior tibial artery = 136mmHg. Right dorsalis pedis artery = 134mmHg. Right digit = 74 mmHg. The right dorsalis pedis waveforms are triphasic. The right posterior tibial artery waveforms are triphasic. Indices The right ankle brachial index by the dorsalis pedis is 1.20. The right ankle brachial index by the posterior tibial artery is 1.21. The right digital-brachial index is 0.66. The left ankle brachial index by the dorsalis pedis is 1.33. The left ankle brachial index by the posterior tibial artery is 1.33. The left digital-brachial index is 0.66. Interpretation Summary Resting ankle-brachial indices appear bilaterally normal. Normal bilateral dorsalis pedis and posterior tibialis triphasic doppler waveforms. Abnormal digital brachial indices and PPG's bilaterally consistent with vasospasm or distal small vessel disease of the digits. Clinical correlation would be appropriate. Ordering Physician: Robbi Abbott Referring Physician: Shailesh Mancini Performed By: Faby Waters RVT
--- NOTE | 2020-11-08 12:59 | ECHOD_ITS ---
Reason For Study: CAD/ASHD Procedure This was a 2D Doppler, Color Flow transthoracic echocardiogram. The exam was of adequate technical quality. Exam performed in department. Left Ventricle Normal LV size. Severe segmental systolic dysfunction (see wall motion). The estimated ejection fraction is 25 %. Diastolic function is indeterminate. Anterio-Basal: Hypokinetic. Infero-Basal: Hypokinetic. Basal inferoseptal: Akinetic. Basal anteroseptal: Akinetic. Mid-Anterior : Akinetic. Mid-Lateral : Hypokinetic. Mid-Posterior: Hypokinetic. Mid-Inferior: Hypokinetic. Mid-inferoseptal : Akinetic. Mid-anteroseptal : Akinetic. Anterior [place] : Akinetic. Inferior [place] : Hypokinetic. Lateral [place] : Akinetic. Septal [place] : Akinetic. Right Ventricle Normal RV size. ICD or pacer leads identified within the right ventricle. Normal systolic function. Atria The left atrium is mildly enlarged. Normal right atrium. ICD or pacer leads identified within the right atrium. No doppler evidence for ASD. Mitral Valve There is no mitral annular calcification. Mild diffuse mitral valve thickening. Mild (1+) eccentric mitral valve insufficiency. Tricuspid Valve Normal tricuspid valve. Mild to moderate (1-2+) tricuspid valve insufficiency. Right ventricular systolic pressure estimated to be 29 mmHg. Aortic Valve Trisinus/trileaflet aortic valve. Mild diffuse aortic valve thickening. Mild focal aortic valve calcification. Mild (1+) aortic valve insufficiency. Pulmonic Valve The pulmonic valve is not well visualized. Mild (1+) pulmonic valve insufficiency. Great Vessels Normal sized aortic root. Pericardium/Pleural No pericardial effusion. MMode/2D Measurements & Calculations LVIDd: 5.1 cm IVSd: 0.79 cm LVOT diam: 2.3 cm LVIDs: 3.9 cm LVPWd: 0.88 cm LVOT area: 4.1 cm2 RVDd: 3.9 cm FS: 23.8 % Ao root diam: 3.8 cm LAV(MOD-bp): 43.4 ml LA A4 area: 11.8 cm2 LAV(MOD-bp) Indexed: 27.2 ml/m2 LAV(MOD-sp2): 48.3 ml LAV(MOD-sp4): 29.2 ml LA dimension(2D): 4.0 cm Time Measurements MV dec time: 0.22 sec Doppler Measurements & Calculations MV E max jakob: 51.6 cm/sec Lat Peak E' Jakob: 2.9 cm/sec Med Peak E' Jakob: 3.5 cm/sec MV A max jakob: 109.9 cm/sec E/E' lat: 17.8 E/E' med: 14.5 MV E/A: 0.47 Ao V2 max: 141.8 cm/sec AI max jakob: 356.9 cm/sec LV V1 max: 76.3 cm/sec Ao max P.0 mmHg AI max P.1 mmHg LV V1 max P.4 mmHg Ao V2 mean: 101.0 cm/sec LV V1 mean P.1 mmHg Ao mean P.5 mmHg AI dec slope: 225.0 cm/sec2 LV V1 mean: 49.5 cm/sec Ao V2 VTI: 30.5 cm AI P1/2t: 464.5 msec LV V1 VTI: 17.0 cm MARIANA(I,D): 2.3 cm2 MARIANA(V,D): 2.2 cm2 SV(LVOT): 70.4 ml PA V2 max: 68.6 cm/sec TR max jakob: 253.8 cm/sec TR max P.8 mmHg Interpretation Summary Severe segmental systolic dysfunction (see wall motion). The estimated ejection fraction is 25 %. The left atrium is mildly enlarged. Mild diffuse mitral valve thickening. Mild (1+) eccentric mitral valve insufficiency. Mild to moderate (1-2+) tricuspid valve insufficiency. Mild diffuse aortic valve thickening. Mild focal aortic valve calcification. Mild (1+) pulmonic valve insufficiency. Right ventricular systolic pressure estimated to be 29 mmHg. Diastolic function is indeterminate. ICD or pacer leads identified within the right atrium ICD or pacer leads identified within the right ventricle. Ordering Physician: Robbi Abbott Referring Physician: Shailesh Mancini Performed By: Nila Montanez, RENETTA, RVT
--- NOTE | 2020-11-08 14:25 | RAD_ITS ---
STUDY: X-RAY CHEST REASON FOR EXAM: Male, 85 years old. dyspnea, patient states he gets nauseous when he exerts himself, weakness, Hx MS in the past, HTN, CHF TECHNIQUE: PA and lateral views of the chest. COMPARISON: 04/17/2019 FINDINGS: Left subclavian dual-lead AICD which is unchanged The lungs are clear and expanded. There is no demonstrated pleural abnormality. Normal size heart. Normal mediastinum and emely. Normal visualized pulmonary arteries. Normal visualized aortic arch and descending thoracic aorta. Normal visualized thoracic spine. Normal visualized ribs, clavicles, and shoulders. There is no demonstrated abnormality of the visualized soft tissue structures of the upper abdomen. RAD/Chest PA and Lateral IMPRESSION: No active disease. Electronically Signed: Leroy Barrett MD at 17:31 EST Tel , Service support ,
== END ==
PROVIDERS: PCP Family Medicine; Referring Provider Internal Medicine Cardiovascular Disease; Visit Provider Internal Medicine Cardiovascular Disease
DX: I25.10 Atherosclerotic heart disease of native coronary artery without angina pectoris (principal); I25.5 Ischemic cardiomyopathy; I50.22 Chronic systolic (congestive) heart failure; E78.00 Pure hypercholesterolemia, unspecified; I10 Essential (primary) hypertension; Z95.810 Presence of automatic (implantable) cardiac defibrillator; Z95.5 Presence of coronary angioplasty implant and graft; I73.9 Peripheral vascular disease, unspecified; R20.9 Unspecified disturbances of skin sensation
CPT/HCPCS: 71046; 93306; 93923

== ENCOUNTER 2020-11-15 17:10 | Emergency (ER) | payer MEDICARE, SELFPAY ==
[2018-12-28 14:17] VITALS: BMI 22.3
[2020-11-04 15:05] VITALS: BMI 21.2
[2020-11-15 17:10] VITALS: BP 140/68; PULSE 68; RESP 18; TEMP 36; O2SAT 98; BMI 21.2
--- NOTE | 2020-11-15 17:32 | ED.RN ---
PT STATES THAT HE WAS ABLE TO GO TO THE BATHROOM SO HE WAS GOING HOME
== END 2020-11-15 18:07 ==
LOC: ED 17:38
PROVIDERS: Emergency Provider Emergency Medicine; PCP Family Medicine
DX: K59.9 Functional intestinal disorder, unspecified (principal)

== ENCOUNTER → 2020-11-18 13:58 | Outpatient (CLI) | payer MEDICARE, SELFPAY ==
[2018-12-28 14:17] VITALS: BMI 22.3
[2020-11-15 17:10] VITALS: BMI 21.2
[2020-11-18 17:29] LABS: Absolute Lymphocyte Count 1.53 X10^3/uL (0.83-4.51); Absolute Neutrophil Count 2.7 X10^3/uL (2.0-7.7); Basophil# 0.02 X10^3/uL; Basophil% 0.3 % (0-1); Eosinophil# 0.93 X10^3/uL; Eosinophils% 15.9 % (0-5); Hematocrit 38.8 % (40-54); Hemoglobin 12.9 g/dL (13.0-16.5); Lymphocyte # 1.53 X10^3/ul (4.0); Lymphocyte % 26.2 % (19-41); Mean Corp Hgb Conc 33.2 g/dL (32-36); Mean Corpuscular Hgb 30.5 pg (27.0-32.0); Mean Corpuscular Volume 91.7 fL (80-94); Mean Platelet Vol. 11.5 fl (6.2-12.0); Monocyte# 0.61 X10^3/uL; Monocyte% 10.4 % (0-10); NRBC Flagged by Analyzer 0 % (0-5); Neutrophil # 2.74 X10^3/uL (2.7-7.7); Platelet Count 262 K/mm3 (150-450); RBC Distribution Width CV 13.6 % (11.6-14.6); Red Blood Count 4.23 M/mm3 (4.6-6.2); White Blood Count 5.8 K/mm3 (4.4-11.0)
[2020-11-18 17:38] LABS: Vitamin B12 552 pg/mL (211-911)
[2020-11-18 17:46] LABS: Anion Gap 6 (5-15); BUN 21 mg/dL (7-18); BUN/Creat Ratio 20.4 RATIO (10-20); Calcium,Total 8.9 mg/dL (8.5-10.1); Chloride 104 mmol/L (98-107); Creatinine, Serum 1.03 mg/dL (0.70-1.30); EST Glomerular Filtration Rate 73 mL/min (>60); Est Glom Filt Rate - Afr Amer 88 mL/min (>60); Ferritin 202 ng/mL (26-388); Glucose 100 mg/dL (74-106); Iron 124 ug/dL (65-175); Potassium 4.6 mmol/L (3.5-5.1); Sodium Level 136 mmol/L (136-145)
[2020-11-18 18:01] LABS: BNP,B-Type NATRIURETIC PEPTIDE 97.7 pg/mL (0-100)
== END ==
PROVIDERS: Internal Medicine Cardiovascular Disease; PCP Family Medicine; Visit Provider Family Medicine
DX: I11.0 Hypertensive heart disease with heart failure (principal); E53.8 Deficiency of other specified B group vitamins; I50.9 Heart failure, unspecified; E61.1 Iron deficiency
CPT/HCPCS: 36415; 80048; 82607; 82728; 83540; 83880; 85025

== ENCOUNTER → 2020-11-21 11:16 | Outpatient (CLI) | payer MEDICARE, SELFPAY ==
[2018-12-28 14:17] VITALS: BMI 22.3
[2020-11-04 15:05] VITALS: BMI 21.2
[2020-11-15 17:10] VITALS: BMI 21.2
--- NOTE | 2020-11-21 13:11 | STRESSREP ---
Stress Test Report Date: 11-21-2020 Procedure: Pharmacologic stress nuclear imaging study Indications: Shortness of breath/dyspnea on exertion; CAD; status post AR; status post PCI, ischemic cardiomyopathy, ICD Consent: Per the patient Procedure: The patient underwent pharmacologic (Regadenoson) evaluation with a peak heart rate of 78 beats per minute (57%predicted maximal heart rate) and a peak blood pressure of 120/60 mmHg. The baseline ECG demonstrated sinus rhythm; septal AR of indeterminate age cannot be excluded. The peak pharmacologic ECG demonstrated no obvious ECG changes. There was a rare PVC during recovery. There was no complaint of chest discomfort during pharmacologic infusion or recovery. The examination was discontinued secondary to completion of protocol. Impression: 1. Pharmacologic (Regadenoson) evaluation 2. Peak pharmacologic ECG with no obvious ECG changes. 3. There was a rare PVC during recovery. 4. Nuclear images pending Myocardial perfusion imaging study: Technique: The patient was injected with millicuries of technetium 99m Cardiolite and subsequently rest SPECT Cardiolite nuclear imaging was obtained in the horizontal long, vertical long, and short axis views. The patient underwent pharmacologic (Regadenoson) evaluation with a peak heart rate of 78 beats per minute (57% percent predicted maximal heart rate) and a peak blood pressure of 120/60 mmHg. The patient was injected with millicuries of technetium 99m Cardiolite and subsequently stress SPECT Cardiolite nuclear imaging was obtained in the horizontal long, vertical long, and short axis views. A gated Cardiolite study at peak stress was obtained. Interpretation: Rest and stress SPECT Cardiolite nuclear imaging status post realignment, normalization, and attenuation correction demonstrate the appearance of diminished absence of tracer uptake in portions of the mid to distal anterior, anteroseptal, anteroapical and septal apical segments with no significant change between rest and stress. There is diminished end systolic thickening and brightening. The gated Cardiolite study demonstrates diminished myocardial thickening and inward wall motion. The reported LVEF is 35%. Impression: 1. Rest and stress SPECT current nuclear imaging demonstrate myocardial perfusion changes appearing compatible with an area of previous myocardial injury/infarction involving portions of the mid to distal anterior, anteroseptal, anteroapical, and septal apical segments with no myocardial perfusion changes considered diagnostic for associated stress-induced myocardial ischemia. 2. The gated Cardiolite study reports an LVEF of 35%. This note was generated with [employer] software. It may contain incorrect words, spelling, and punctuation that were not noted in checking the note before signing.
== END ==
PROVIDERS: PCP Family Medicine; Referring Provider Internal Medicine Cardiovascular Disease; Visit Provider Internal Medicine Cardiovascular Disease
DX: R06.00 Dyspnea, unspecified (principal); E78.00 Pure hypercholesterolemia, unspecified; I25.10 Atherosclerotic heart disease of native coronary artery without angina pectoris; I50.22 Chronic systolic (congestive) heart failure; I25.5 Ischemic cardiomyopathy; I10 Essential (primary) hypertension; Z95.5 Presence of coronary angioplasty implant and graft; Z95.810 Presence of automatic (implantable) cardiac defibrillator
CPT/HCPCS: 78452; 93017; A9500; A4216; J2785

== ENCOUNTER → 2021-09-02 10:47 | Outpatient (CLI) | payer MEDICARE, SELFPAY ==
[2018-12-28 14:17] VITALS: BMI 22.3
[2021-09-02 12:12] LABS: AST(SGOT) 19 U/L (15-37); Alanine Aminotransfer ALT/SGPT 20 U/L (16-61); Albumin, Serum 4.2 g/dL (3.2-5.0); Alkaline Phosphatase 61 U/L (45-117); Bilirubin, Direct 0.29 mg/dL (0.00-0.30); Cholesterol 114 mg/dL (200); Globulin 3.9 g/dL (2.2-4.2); High Density Lipoprotein 48 mg/dL; Protein, Total 8.1 g/dL (6.4-8.2); Triglycerides 110 mg/dL; Very Low Density Lipoprotein 22 mg/dL (5-40)
== END ==
PROVIDERS: PCP Family Medicine; Referring Provider Nurse Practitioner Family; Visit Provider Nurse Practitioner Family
DX: I25.10 Atherosclerotic heart disease of native coronary artery without angina pectoris (principal); E78.00 Pure hypercholesterolemia, unspecified
CPT/HCPCS: 36415; 80061; 80076

== ENCOUNTER → 2021-10-16 14:44 | Outpatient (CLI) | payer MEDICARE, SELFPAY ==
[2018-12-28 14:17] VITALS: BMI 22.3
[2021-10-16 15:49] LABS: Absolute Lymphocyte Count 2.15 X10^3/uL (0.83-4.51); Absolute Neutrophil Count 4.4 X10^3/uL (2.0-7.7); Basophil# 0.05 X10^3/uL; Basophil% 0.6 % (0-1); Eosinophil# 0.61 X10^3/uL; Eosinophils% 7.8 % (0-5); Hematocrit 38.4 % (40-54); Hemoglobin 12.5 g/dL (13.0-16.5); Lymphocyte # 2.15 X10^3/ul (0.83-4.51); Lymphocyte % 27.4 % (19-41); Mean Corp Hgb Conc 32.6 g/dL (32-36); Mean Corpuscular Volume 92.1 fL (80-94); Mean Platelet Vol. 10.8 fl (6.2-12.0); Monocyte# 0.66 X10^3/uL; Monocyte% 8.4 % (0-10); NRBC Flagged by Analyzer 0 % (0-5); Neutrophil # 4.36 X10^3/uL (2.7-7.7); Neutrophil % 55.7 % (47-70); Platelet Count 247 K/mm3 (150-450); RBC Distribution Width CV 14.3 % (11.6-14.6); Red Blood Count 4.17 M/mm3 (4.6-6.2); White Blood Count 7.8 K/mm3 (4.4-11.0)
[2021-10-16 16:23] LABS: Anion Gap 7 (5-15); BUN 14 mg/dL (7-18); BUN/Creat Ratio 16.6 RATIO (10-20); Calcium,Total 9.1 mg/dL (8.5-10.1); Chloride 104 mmol/L (98-107); Creatinine, Serum 0.84 mg/dL (0.70-1.30); EST Glomerular Filtration Rate 92 mL/min (>60); Est Glom Filt Rate - Afr Amer 111 mL/min (>60); Glucose 104 mg/dL (74-106); Potassium 3.8 mmol/L (3.5-5.1); Sodium Level 139 mmol/L (136-145)
[2021-10-18 08:41] LABS: Thyroid Peroxidase AB < 8 IU/mL (0-34)
== END ==
PROVIDERS: PCP Family Medicine; Visit Provider Dermatology Pediatric Dermatology
DX: L21.8 Other seborrheic dermatitis (principal); L29.8 Other pruritus; Z08 Encounter for follow-up examination after completed treatment for malignant neoplasm; Z85.828 Personal history of other malignant neoplasm of skin; D48.5 Neoplasm of uncertain behavior of skin
CPT/HCPCS: 36415; 80048; 84153; 85025; 86376

== ENCOUNTER 2022-02-03 12:22 | Outpatient (CLI) | payer MEDICARE, SELFPAY ==
[2018-12-28 14:17] VITALS: BMI 22.3
== END 2022-02-03 23:59 | disposition home or self-care (01) ==
LOC: LAB 12:23
PROVIDERS: PCP Family Medicine; Referring Provider Urology; Visit Provider Urology
DX: R97.20 Elevated prostate specific antigen [PSA] (principal)
CPT/HCPCS: 36415; 84153

== ENCOUNTER → 2022-03-05 | Outpatient (CLI) | payer MEDICARE, SELFPAY ==
[2018-12-28 14:17] VITALS: BMI 22.3
--- NOTE | 2022-03-05 15:16 | RAD_ITS ---
STUDY: X-RAY CHEST REASON FOR EXAM: Male, 87 years old. SOB TECHNIQUE: XR Chest 2 Views COMPARISON: 11/08/2020 FINDINGS: There is no demonstrated pleural abnormality. There is a left sided pacemaker batterypack. Normal size heart. Normal mediastinum and emely. Normal visualized pulmonary arteries. There is atherosclerotic calcification of the aortic arch with tortuosity. There are diffuse degenerative changes of the visualized thoracic spine. There is degenerative osteoarthritis of the bilateral shoulders. There is no demonstrated abnormality of the visualized soft tissue structures of the upper abdomen. RAD/Chest PA and Lateral IMPRESSION: There are no acute findings. Electronically Signed: Stiven Barrios MD at 15:47 EDT ,
[2022-03-05 16:10] LABS: Absolute Lymphocyte Count 2.16 X10^3/uL (0.83-4.51); Absolute Neutrophil Count 3.8 X10^3/uL (2.0-7.7); Basophil# 0.04 X10^3/uL; Basophil% 0.6 % (0-1); Eosinophil# 0.41 X10^3/uL; Eosinophils% 5.9 % (0-5); Hematocrit 36.7 % (40-54); Hemoglobin 11.9 g/dL (13.0-16.5); Lymphocyte # 2.16 X10^3/ul (0.83-4.51); Lymphocyte % 31.1 % (19-41); Mean Corp Hgb Conc 32.4 g/dL (32-36); Mean Corpuscular Hgb 29.8 pg (27.0-32.0); Mean Platelet Vol. 11.5 fl (6.2-12.0); Monocyte# 0.54 X10^3/uL; Monocyte% 7.8 % (0-10); NRBC Flagged by Analyzer 0 % (0-5); Neutrophil # 3.77 X10^3/uL (2.7-7.7); Neutrophil % 54.3 % (47-70); Platelet Count 199 K/mm3 (150-450); RBC Distribution Width CV 14.3 % (11.6-14.6); RBC Distribution Width SD 48.4 fl (35.1-43.9); Red Blood Count 3.99 M/mm3 (4.6-6.2); White Blood Count 6.9 K/mm3 (4.4-11.0)
[2022-03-05 16:33] LABS: Anion Gap 6 (5-15); BUN 11 mg/dL (7-18); BUN/Creat Ratio 11.4 RATIO (10-20); Calcium,Total 8.3 mg/dL (8.5-10.1); Chloride 103 mmol/L (98-107); Creatinine, Serum 0.96 mg/dL (0.70-1.30); EST Glomerular Filtration Rate 79 mL/min (>60); Est Glom Filt Rate - Afr Amer 95 mL/min (>60); Glucose 110 mg/dL (74-106); Potassium 3.6 mmol/L (3.5-5.1); Sodium Level 139 mmol/L (136-145)
[2022-03-05 16:34] LABS: BNP,B-Type NATRIURETIC PEPTIDE 225.2 pg/mL (0-100)
== END | disposition home or self-care (01) ==
LOC: RAD 15:13 → LAB 15:31
PROVIDERS: PCP Family Medicine; Referring Provider Nurse Practitioner Family; Visit Provider Nurse Practitioner Family
DX: I25.5 Ischemic cardiomyopathy (principal); D50.9 Iron deficiency anemia, unspecified; R06.02 Shortness of breath; R06.01 Orthopnea; I25.10 Atherosclerotic heart disease of native coronary artery without angina pectoris
CPT/HCPCS: 36415; 71046; 80048; 83880; 85025

== ENCOUNTER → 2022-06-03 | Outpatient (CLI) | payer MEDICARE, SELFPAY ==
[2018-12-28 14:17] VITALS: BMI 22.3
[2022-06-03 16:37] LABS: Hemoglobin 11.8 g/dL (13.0-16.5); Mean Corp Hgb Conc 33.7 g/dL (32-36); Mean Corpuscular Hgb 30.5 pg (27.0-32.0); Mean Corpuscular Volume 90.4 fL (80-94); Mean Platelet Vol. 11.2 fl (6.2-12.0); Platelet Count 180 K/mm3 (150-450); RBC Distribution Width CV 14.3 % (11.6-14.6); RBC Distribution Width SD 47.1 fl (35.1-43.9); Red Blood Count 3.87 M/mm3 (4.6-6.2); White Blood Count 5.7 K/mm3 (4.4-11.0)
[2022-06-03 18:36] LABS: Anion Gap 6 (5-15); BUN 17 mg/dL (7-18); BUN/Creat Ratio 15.9 RATIO (10-20); Calcium,Total 9.1 mg/dL (8.5-10.1); Chloride 105 mmol/L (98-107); Creatinine, Serum 1.07 mg/dL (0.70-1.30); EST Glomerular Filtration Rate 70 mL/min (>60); Est Glom Filt Rate - Afr Amer 84 mL/min (>60); Glucose 104 mg/dL (74-106); Potassium 4.1 mmol/L (3.5-5.1); Sodium Level 139 mmol/L (136-145)
== END | disposition home or self-care (01) ==
PROVIDERS: PCP Family Medicine; Visit Provider Nurse Practitioner Family
DX: R42 Dizziness and giddiness (principal); I50.22 Chronic systolic (congestive) heart failure; I25.5 Ischemic cardiomyopathy
CPT/HCPCS: 36415; 80048; 85027

== ENCOUNTER → 2022-10-12 | Outpatient (CLI) | payer MEDICARE, SELFPAY ==
[2018-12-28 14:17] VITALS: BMI 22.3
[2022-10-12 13:07] LABS: Hematocrit 39.1 % (40-54); Hemoglobin 12.9 g/dL (13.0-16.5); Mean Corpuscular Hgb 30.6 pg (27.0-32.0); Mean Corpuscular Volume 92.7 fL (80-94); Mean Platelet Vol. 11.9 fl (6.2-12.0); Platelet Count 200 K/mm3 (150-450); RBC Distribution Width CV 13.9 % (11.6-14.6); RBC Distribution Width SD 47.6 fl (35.1-43.9); Red Blood Count 4.22 M/mm3 (4.6-6.2)
[2022-10-12 13:36] LABS: Anion Gap 4 (5-15); BUN 10 mg/dL (7-18); BUN/Creat Ratio 9.9 RATIO (10-20); Calcium,Total 8.9 mg/dL (8.5-10.1); Chloride 105 mmol/L (98-107); Creatinine, Serum 1.01 mg/dL (0.70-1.30); EST Glomerular Filtration Rate 74 mL/min (>60); Est Glom Filt Rate - Afr Amer 90 mL/min (>60); Glucose 187 mg/dL (74-106); Potassium 3.8 mmol/L (3.5-5.1); Sodium Level 139 mmol/L (136-145)
== END | disposition home or self-care (01) ==
LOC: LAB 11:52
PROVIDERS: PCP Family Medicine; Referring Provider Urology; Visit Provider Urology
DX: Z01.812 Encounter for preprocedural laboratory examination (principal); Z01.818 Encounter for other preprocedural examination
CPT/HCPCS: 36415; 80048; 85027

== ENCOUNTER 2022-10-21 10:37 | Day surgery (SDC) | payer MEDICARE, SELFPAY ==
[2018-12-28 14:17] VITALS: BMI 22.3
[2022-10-21] VITALS (11 sets, daily range): BP systolic 117–140; BP diastolic 45–72; PULSE 64–83; RESP 16–18; TEMP 36.2–37.3; O2SAT 95–100; BMI 20.2
[2022-10-21] MEDS: Lactated Ringers 1,000 ML 15 ML IV ×2 (11:21→15:26)
[2022-10-21] MEDS: Cefazolin 2 GM in 0.9% Normal Saline 100 ML IV (13:58)
--- NOTE | 2022-10-21 14:10 | DCINST_ITS ---
Discharge Instructions Diet Discharge Diet: No restrictions, Light diet - advance as tolerated and Soft diet Activity Discharge Activity: Return to Normal Activity Dressing / Incision Catheter: Rod to leg bag and Rod to large bag Drain: [place] Follow Up Care Please Follow Up With: Faisal Barth MD When: Call for an appointment 2 weeks Test Results: Test results from this visit will be discussed in further detail at your follow- up appointment, if applicable. Discharge Plan Admission Primary Reason for Your Visit: DVIU Attending Provider: Faisal Barth Primary Care Provider: Shailesh Mancini Discharge Orders/Prescriptions Prescriptions: New ciprofloxacin HCl [Cipro] 250 mg tablet 250 mg PO BID Qty: 20 0RF Continued diphenhydramine-acetaminophen [Tylenol PM Extra Strength] 25-500 mg tablet 2 tab PO QHS PRN (Reason: Insomnia) furosemide 20 mg tablet 20 mg PO Q OTHER DAY carvedilol [Coreg] 3.125 mg tablet 3.125 mg PO BID Label Comments: TAKE 1 TABLET BY MOUTH TWICE DAILY WITH FOOD tamsulosin 0.4 mg capsule 0.4 mg PO DAILY finasteride 5 mg tablet 5 mg PO DAILY Label Comments: TAKE 1 TABLET BY MOUTH ONCE DAILY nitroglycerin 0.4 mg tablet, sublingual 0.4 mg SUBLINGUAL Q5M PRN (Reason: Chest Pain) Qty: 25 3RF Entresto 24-26 mg tablet 1 tab PO BID Qty: 180 3RF simvastatin 20 mg tablet See Rx Instructions .ROUTE .COMPLEX Qty: 90 3RF Dose Instruction: TAKE 1 TABLET BY MOUTH AT BEDTIME FOR CHOLESTEROL Rx Instructions: TAKE 1 TABLET BY MOUTH AT BEDTIME FOR CHOLESTEROL Held aspirin 81 MG tablet,chewable 81 mg PO DAILY Hold Instructions: Resume on 11/06/22. clopidogrel 75 mg tablet 75 mg PO DAILY Qty: 90 3RF Hold Instructions: Resume on 11/06/22. Rx Instructions: prevent clotting Referrals / Follow Up: Faisal Barth MD [Med Staff - Active Staff] - Shailesh Mancini MD [Primary Care Provider] - Disposition Disposition (needs filled in before D/C Order can be placed): Home, Self Care
--- NOTE | 2022-10-21 14:10 | HP.PCM_ITS ---
HPI - General HPI Narrative JORGE GUZMÁN, is a 87 M who presents for a direct vision internal urethrotomy of a urethral stricture [facility] Medical History (Updated 10/16/22 @ 13:05 by Marie Joseph) Abnormal result of cardiovascular function study, unspecified Angina pectoris Atherosclerotic heart disease of [place] coronary artery without angina pectoris Cancer Cardiology follow-up encounter Cardiomyopathy, ischemic Chest pain, precordial Chronic systolic congestive heart failure 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 Dyspnea Easy bruising Essential hypertension Excessive bleeding Family history of CVA Family history of hypertension Fatigue FH: sudden cardiac (SCD) GERD (gastroesophageal reflux disease) High cholesterol High risk medication use History of CHF (congestive heart failure) History of echocardiogram History of placement of internal cardiac defibrillator History of stress test HLD (hyperlipidemia) HTN (hypertension) Hypokalemia Implantable cardioverter-defibrillator (ICD) at end of battery life Iron deficiency anemia Old myocardial infarction Pure hypercholesterolemia Wears glasses Home Medications aspirin 81 mg chewable tablet 81 mg PO DAILY heart health 03/05/16 [History Last Taken 10/09/22] diphenhydramine 25 mg-acetaminophen 500 mg tablet (Tylenol PM Extra Strength) 2 tab PO QHS PRN Insomnia 10/22/17 [History Last Taken 12/27/18] clopidogrel 75 mg tablet 75 mg PO DAILY #90 tabs 10/28/21 [Rx Last Taken 10/09/22] nitroglycerin 0.4 mg sublingual tablet 0.4 mg sublingual Q5M PRN Chest Pain #25 tabs 02/17/22 [Rx Last Taken Unknown] carvedilol 3.125 mg tablet (Coreg) 3.125 mg PO BID 03/05/22 [History Last Taken 10/21/22] finasteride 5 mg tablet 5 mg PO DAILY 03/05/22 [History Last Taken Unknown] tamsulosin 0.4 mg capsule 0.4 mg PO DAILY 03/05/22 [History Last Taken Unknown] furosemide 20 mg tablet 20 mg PO Q OTHER DAY 08/05/22 [History Last Taken Unknown] sacubitril 24 mg-valsartan 26 mg tablet (Entresto) 1 tab PO BID Heart Failure #180 tabs 08/07/22 [Rx Last Taken 10/21/22] simvastatin 20 mg tablet See Rx Instructions .Route .COMPLEX #90 tabs 09/14/22 [Rx Last Taken Unknown] ciprofloxacin HCl 250 mg tablet (Cipro) 250 mg PO BID #20 tabs 10/21/22 [Rx Last Taken Unknown] Allergy/AdvReac Type Severity Reaction Status Date / Time morphine Allergy Intermediate Rash Verified 10/16/22 12:51 zolpidem tartrate AdvReac Intermediate CONFUSION Verified 10/16/22 12:51 [From Ambien] Family History Mother CAD (coronary artery disease) CVA (cerebral vascular accident) Myocardial infarction, Onset Age: 67 Hypertension Brother CAD (coronary artery disease) Hypertension Cancer Lung CA Myocardial infarction, Onset Age: 73 Father Myocardial infarction, Onset Age: 77 Daughter Cancer Son Myocardial infarction, Onset Age: 46 Surgical History (Updated 10/16/22 @ 13:05 by Marie Joseph) History of cardiac catheterization History of hernia repair History of left heart catheterization History of prostate surgery History of PTCA (08/02/08) Hx of colonoscopy Hx of surgical procedure S/P TURP (status post transurethral resection of prostate) Stented coronary artery (~12/28/18) Social History Smoking Status: Never smoker alcohol intake: never substance use type: does not use caffeine: Yes Type: carbonated beverages and coffee Number of servings: 1 what type of physical activity do you participate in: none seatbelt use: always do you feel safe at home: Yes Vital Signs Vital Signs Vital Signs: 10/21/22 11:02 10/21/22 11:02 Temperature 97.2 F L Temperature Source Temporal Pulse Rate 64 Respiratory Rate 18 Respiratory Pattern Normal Blood Pressure 119/45 L Blood Pressure Mean 69 Blood Pressure Source Monitor Blood Pressure Position Semi-Fowlers Blood Pressure Location Right Arm Pulse Ox 98 Oxygen Delivery Method Room Air Weight Weight: 52 kg Body Mass Index (BMI) 20.2
--- NOTE | 2022-10-21 14:11 | OP.PCM_ITS ---
Report of Operation Date of Procedure: 10/21/22 Pre-Operative Diagnosis: Urethral stricture Post-Operative Diagnosis: Same Surgery/Procedure Performed:: DVIU Description of Surgical Findings:: Patient was seen in the preoperative area and we discussed the surgery today. 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 Patient understands that it is possible that the scar tissue may come back and that the success rate of this procedures in the long-term is about 60 to 70%. We talked about the possibility of bleeding or infection from the procedure. The patient also understands that a catheter will be necessary after the procedure for about 10 days depending on the situation. After long discussion with the patient in preoperative area describing the procedure and what the patient's expect afterwards, the patient's questions were addressed and working to proceed with the surgery, the consent form was signed. The patient was taken back to the operating room after induction of anesthesia was placed in dorsolithotomy position. The genitals and urethra are prepped and draped in the usual sterile fashion. Then using a DVIU set the meatus was gently dilated from 18-20 [place]. Then went into the urethra with a urethrotome and identified the pinpoint stricture in the mid urethra. A 0.038 Glidewire was used to passed through the stricture to ensure access to the bladder and the prostate. The Glidewire was secured to the drapes. Then using a cold knife the knife was deployed from the urethrotome and then at the 12 o'clock position the scar tissue was cut until the stricture was cut open completely. I was then able to navigate the scope through the scar tissue without any resistance. Then after this I was able to navigate past the dense scar tissue into the bulbar urethra through the sphincter and passed the prostate. Inside the bladder the bladder and prostate was inspected the trigone was normal the left and right ureter orifice normal the prostate was normal. I then pulled out the urethrotome and then a well-lubricated 18 [place] catheter was advanced into the bladder with clear return of urine. 10 cc were put into the balloon and the catheter was secured to the leg bag. Surgeon: Faisal Barth Type of Anesthesia: General Drains: puente 20 Admit VTE Documentation VTE Present on Admission: No VTE Mechan Device Prophylaxis: SCD's VTE Pharm Prophylaxis ordered?: No
== END 2022-10-21 17:14 | disposition home or self-care (01) ==
LOC: SDC 10:38 → AC 10:40
PROVIDERS: PCP Family Medicine; Referring Provider Urology; Visit Provider Urology
PROC: 0T7D8ZZ Dilation of Urethra, Via Natural or Artificial Opening Endoscopic (ICD-10-PCS; CPT 52281; principal; 2022-10-21 12:15)
DX: N35.919 Unspecified urethral stricture, male, unspecified site (principal); I11.0 Hypertensive heart disease with heart failure; I50.22 Chronic systolic (congestive) heart failure; I42.9 Cardiomyopathy, unspecified; Z79.02 Long term (current) use of antithrombotics/antiplatelets; Z82.3 Family history of stroke; Z79.82 Long term (current) use of aspirin; I25.10 Atherosclerotic heart disease of native coronary artery without angina pectoris; Z95.810 Presence of automatic (implantable) cardiac defibrillator; I25.2 Old myocardial infarction; Z98.61 Coronary angioplasty status; Z87.19 Personal history of other diseases of the digestive system; Z90.79 Acquired absence of other genital organ(s)
CPT/HCPCS: 52276; J7120; C1769

== ENCOUNTER 2022-12-27 20:29 | Emergency (ER) | payer MEDICARE, SELFPAY ==
[2018-12-28 14:17] VITALS: BMI 22.3
[2022-12-27 20:29] VITALS: BP 129/74; PULSE 93; RESP 15; TEMP 36.2; O2SAT 100; BMI 20.5
--- NOTE | 2022-12-27 21:30 | CT_ITS ---
EXAM: CT ABDOMEN AND PELVIS WITH INTRAVENOUS CONTRAST CLINICAL INDICATION: LLQ abdominal pain TECHNIQUE: Helically acquired images were obtained of the abdomen and pelvis with intravenous contrast. This CT exam was performed using one or more of the following dose reduction techniques: automated exposure control, adjustment of the mA and/or kV according to patient size, and/or use of iterative reconstruction technique. This report was created using [employer] report generation technology. CONTRAST: IV 100mL Isovue-370 COMPARISON: 01/30/2019. FINDINGS: LOWER THORAX: Nodular densities in the right middle lobe measure up to 6 mm. These are new compared to the prior study. Small hiatal hernia. No cardiomegaly. No significant pericardial effusion. ABDOMEN: LIVER: Unremarkable. Homogeneous. No focal mass. GALLBLADDER AND BILE DUCTS: Gallbladder is not visualized. Mildly dilated intrahepatic biliary ducts. Mildly dilated common duct measures 7 mm, consistent with prior cholecystectomy. PANCREAS: 2.3 x 1.2 cm cyst in the pancreatic head, new compared to the prior study. SPLEEN: Unremarkable. Normal size without focal cystic or solid mass. ADRENALS: Unremarkable. No nodules. KIDNEYS AND URETERS: 6.9 cm upper pole right renal cyst. The kidneys are otherwise unremarkable. Normal renal size and position. No hydronephrosis. STOMACH AND BOWEL: Diverticulosis. Moderately thick walled proximal sigmoid colon with mild pericolonic stranding suggests acute diverticulitis versus malignancy. No stomach or bowel distention. PELVIS: APPENDIX: No evidence of acute appendicitis. BLADDER: Unremarkable. REPRODUCTIVE: Unremarkable as visualized. No mass. ABDOMEN and PELVIS: INTRAPERITONEAL SPACE: Dense calcifications in the central mesentery, unchanged. No ascites or fluid collection. No free air. BONES/JOINTS: Unremarkable. No suspicious lytic or blastic abnormality. SOFT TISSUES: Unremarkable. No discrete abdominal or pelvic wall hernia. VASCULATURE: Unremarkable. Abdominal aorta is normal in caliber. LYMPH NODES: Unremarkable. No enlarged lymph nodes. CT/Abdomen/Pelvis W IV Cont ONLY IMPRESSION: 1. Acute uncomplicated diverticulitis of the proximal sigmoid colon. Differential diagnosis includes underlying malignancy and follow-up is recommended. 2. New right middle lobe lung nodules, nonspecific. Fleischner Society Guidelines (MacMahon, et al. Radiology 2017; 284(1):228-43) suggest the following. For low-risk patients recommend follow-up chest CT at 3-6 months. If unchanged consider an additional follow-up CT at 18-24 months. For high-risk patients initial follow-up chest CT at 3-6 months and if unchanged, 18-24 months. 3. Pancreatic cyst. ACR White Paper guidelines (Kt, et al. JACR 2017; 14(7):911-923) suggest a contrast-enhanced, pancreas-protocol abdominal CT or MR in 2 years. 4. Small hiatal hernia. 5. Right renal cyst. Follow-up is not indicated per ACR guidelines. 6. Mild biliary duct dilation consistent with cholecystectomy. Electronically Signed: Mily Zavala MD at 23:15 EST Reading Location ID and State: [id number] / Tel , Service support ,
--- NOTE | 2022-12-27 21:31 | ED.VIS.GI ---
HPI HPI - GI History of Present Illness Chief Complaint: Abd Pain Narrative Narrative: 87-year-old male past medical history of coronary artery disease presents with left lower quadrant abdominal pain and constipation for the last few days. He thinks he had a bowel movement 3 days ago, but over the last 2 days, has not had a bowel movement. He complains of left lower quadrant abdominal pain with this but no fevers or chills, no nausea or vomiting. He took Ex-Lax as a laxative this morning and in the last 6 to 8 hours he has not had a bowel movement. He presents because of the constipation and the pain. His pain is worse with getting up and walking but relieved by remaining still. Past surgical history does include hernia repair along with facetectomy with a mass over the vasectomy site. 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 Dyspnea Easy bruising Essential hypertension Excessive bleeding Family history of CVA Family history of hypertension Fatigue FH: sudden cardiac (SCD) GERD (gastroesophageal reflux disease) High cholesterol High risk medication use History of CHF (congestive heart failure) History of echocardiogram History of placement of internal cardiac defibrillator History of stress test HLD (hyperlipidemia) HTN (hypertension) Hypokalemia Implantable cardioverter-defibrillator (ICD) at end of battery life Iron deficiency anemia Old myocardial infarction Pure hypercholesterolemia Wears glasses Home Medications aspirin 81 mg chewable tablet 81 mg PO DAILY heart health 03/05/16 [History Last Taken 10/09/22] diphenhydramine 25 mg-acetaminophen 500 mg tablet (Tylenol PM Extra Strength) 2 tab PO QHS PRN Insomnia 10/22/17 [History Last Taken 12/27/18] clopidogrel 75 mg tablet 75 mg PO DAILY #90 tabs 10/28/21 [Rx Last Taken 10/09/22] nitroglycerin 0.4 mg sublingual tablet 0.4 mg sublingual Q5M PRN Chest Pain #25 tabs 02/17/22 [Rx Last Taken Unknown] carvedilol 3.125 mg tablet (Coreg) 3.125 mg PO BID 03/05/22 [History Last Taken 10/21/22] finasteride 5 mg tablet 5 mg PO DAILY 03/05/22 [History Last Taken Unknown] tamsulosin 0.4 mg capsule 0.4 mg PO DAILY 03/05/22 [History Last Taken Unknown] furosemide 20 mg tablet 20 mg PO Q OTHER DAY 08/05/22 [History Last Taken Unknown] sacubitril 24 mg-valsartan 26 mg tablet (Entresto) 1 tab PO BID Heart Failure #180 tabs 08/07/22 [Rx Last Taken 10/21/22] simvastatin 20 mg tablet See Rx Instructions .Route .COMPLEX #90 tabs 09/14/22 [Rx Last Taken Unknown] ciprofloxacin HCl 250 mg tablet (Cipro) 250 mg PO BID #20 tabs 10/21/22 [Rx Last Taken Unknown] amoxicillin 875 mg-potassium clavulanate 125 mg tablet 1 tab PO BID #20 tabs 12/27/22 [Rx Last Taken Unknown] Allergy/AdvReac Type Severity Reaction Status Date / Time morphine Allergy Intermediate Rash Verified 12/27/22 20:31 zolpidem tartrate AdvReac Intermediate CONFUSION Verified 12/27/22 20:31 [From Ambien] Family History Mother CAD (coronary artery disease) CVA (cerebral vascular accident) Myocardial infarction, Onset Age: 67 Hypertension Brother CAD (coronary artery disease) Hypertension Cancer Lung CA Myocardial infarction, Onset Age: 73 Father Myocardial infarction, Onset Age: 77 Daughter Cancer Son Myocardial infarction, Onset Age: 46 Surgical History History of cardiac catheterization History of hernia repair History of left heart catheterization History of prostate surgery History of PTCA (08/02/08) Hx of colonoscopy Hx of surgical procedure S/P TURP (status post transurethral resection of prostate) Stented coronary artery (~12/28/18) Social History Smoking Status: Never smoker alcohol intake: never substance use type: does not use caffeine: Yes Type: carbonated beverages and coffee Number of servings: 1 what type of physical activity do you participate in: none seatbelt use: always do you feel safe at home: Yes ROS ROS ED ROS Narrative Constitutional: No fever, no chills. HEENT: No sore throat. No neck pain. No loss of vision. No rhinorrhea. Cardiovascular: No chest pain. No palpitations. No pedal edema. Respiratory: No cough, no shortness of breath. Abdominal: Constipation. Left lower quadrant abdominal pain. No nausea. No vomiting. Genitourinary: No dysuria. No hematuria. Musculoskeletal: No myalgias. No arthralgias. Neurologic: No headaches. No dizziness. No lightheadedness. Skin: No rash. No change in color. Psychiatric: No depression. No anxiety. EXAM Physical Exam Narrative Exam Narrative: Afebrile. Vital signs noted. HEENT: Normocephalic. Atraumatic. PERRL, EOMI. Neck soft and supple. No point tenderness or step off. Cardiovascular: Regular rate and rhythm. No murmurs, rubs, or gallops appreciated. Respiratory: No tachypnea. Lungs clear to auscultation bilaterally. Gastrointestinal: Abdomen soft, mild tenderness to palpation left lower quadrant with normoactive bowel sounds. No rebound or guarding. Neurological: Awake. Alert. Nonfocal, nonlateralizing. Skin: No rash. Normal color. No pallor. Musculoskeletal: No pedal edema. Full range of motion extremities. Const Vital Signs: 12/27/22 20:29 Temperature 97.1 F L Temperature Source Temporal Pulse Rate 93 Respiratory Rate 15 Blood Pressure 129/74 H Blood Pressure Mean 92 Pulse Ox 100 Oxygen Delivery Method Room Air MDM MDM MDM Narrative Medical decision making narrative: Given his pain and constipation/obstipation, concern is for diverticulitis versus bowel obstruction. He declined any pain medications parenterally currently. Comprehensive work-up was pursued. I reviewed the patient's laboratory work, he has a normal white count of 10.8 with hemoglobin slightly low at 12.8, platelet count normal at 185. Potassium slightly low at 3.4 but normal BUN of 11 and normal creatinine of 0.93. Urinalysis is negative for infection with 0-5 WBCs. I do not feel antibiotics are indicated for this. I reviewed his CT images and see stranding of the sigmoid colon. I reviewed the radiology report which confirms that there is uncomplicated sigmoid (proximal) diverticulitis. There are pulmonary nodules noted on examination, the patient was informed of this also. At this point in time, patient is afebrile, does not have a leukocytosis, and feels well enough to go home. He does not want inpatient treatment. He did not require any narcotic pain medication. He states he would like to take Tylenol for pain. He was given his first dose of Augmentin here in the emergency department and a prescription written for the next 10 days to take twice daily. He was told of the risk of perforation, abscess formation, so I reviewed strict return instructions with him. Additionally, they state that their primary care provider has retired, but they are supposed to start seeing Dr. Mckeon. I discussed the patient with Dr. Mckeon for close follow-up in the next 2 to 3 days. Patient and his are to call the office tomorrow to arrange a follow-up appointment. I feel he can be discharged safely home. Return instructions were reviewed. Disposition is discharged home in stable condition. Lab Data Attestation: I reviewed the patient's lab results. Labs: Laboratory Results - last 24 hr 12/27/22 12/27/22 12/27/22 21:52 21:52 21:58 WBC 10.8 RBC 4.29 L Hgb 12.8 L Hct 39.2 L MCV 91.4 MCH 29.8 MCHC 32.7 RDW Std Deviation 46.6 H RDW Coeff of Arleen 14.0 Plt Count 195 MPV 11.6 Immature Gran % (Auto) 0.400 Neut % (Auto) 69.5 Lymph % (Auto) 16.0 L Bowman % (Auto) 12.6 H Eos % (Auto) 1.0 Baso % (Auto) 0.5 Absolute Neuts (auto) 7.5 Absolute Lymphs (auto) 1.73 Nucleated RBC % 0 Sodium 139 Potassium 3.4 L Chloride 102 Carbon Dioxide 30.0 Anion Gap 7 BUN 11 Creatinine 0.93 Estim Creat Clear Calc 42.47 Est GFR (MDRD) Af Amer 99 Est GFR (MDRD) Non-Af 82 BUN/Creatinine Ratio 11.9 Glucose 135 H Calcium 8.9 Total Bilirubin 2.10 H AST 8 L ALT 11 L Alkaline Phosphatase 68 Total Protein 7.6 Albumin 3.9 Globulin 3.7 Albumin/Globulin Ratio 1.1 Urine Color Yellow Urine Clarity Sl. Cloudy Urine pH 7.0 Ur Specific [place] 1.010 Urine Protein 15 H Urine Glucose (UA) Normal Urine Ketones Negative Urine Occult Blood Negative Urine Nitrite Negative Urine Bilirubin Negative Urine Urobilinogen Normal Ur Leukocyte Esterase 25 H Urine RBC 0 SEEN Urine WBC 0-5 SEEN Ur Squamous Epith Cells 0-5 SEEN Urine Bacteria 0 SEEN Urine Mucus 0 SEEN Radiography Diagnostic Testing: Clinical Impression(s) from Imaging Studies Abdomen/Pelvis CT 12/27/22 21:30 IMPRESSION: 1. Acute uncomplicated diverticulitis of the proximal sigmoid colon. Differential diagnosis includes underlying malignancy and follow-up is recommended. 2. New right middle lobe lung nodules, nonspecific. Fleischner Society Guidelines (MacMahon, et al. Radiology 2017; 284(1):228-43) suggest the following. For low-risk patients recommend follow-up chest CT at 3-6 months. If unchanged consider an additional follow-up CT at 18-24 months. For high-risk patients initial follow-up chest CT at 3-6 months and if unchanged, 18-24 months. 3. Pancreatic cyst. ACR White Paper guidelines (Kt, et al. JACR 2017; 14(7):911-923) suggest a contrast-enhanced, pancreas-protocol abdominal CT or MR in 2 years. 4. Small hiatal hernia. 5. Right renal cyst. Follow-up is not indicated per ACR guidelines. 6. Mild biliary duct dilation consistent with cholecystectomy. Electronically Signed: Mily Zavala MD at 23:15 EST Reading Location ID and State: [id number] / Tel , Service support , Discharge Plan Triage Chief Complaint: Abd Pain ED Provider: Murray Morgan Dx/Rx/DC Orders Clinical Impression: Diverticulitis, Abdominal pain, LLQ Instructions: ED Diverticulitis Prescriptions: New amoxicillin-pot clavulanate 875-125 mg tablet 1 tab PO BID Qty: 20 0RF No Action diphenhydramine-acetaminophen [Tylenol PM Extra Strength] 25-500 mg tablet 2 tab PO QHS PRN (Reason: Insomnia) furosemide 20 mg tablet 20 mg PO Q OTHER DAY carvedilol [Coreg] 3.125 mg tablet 3.125 mg PO BID Label Comments: TAKE 1 TABLET BY MOUTH TWICE DAILY WITH FOOD tamsulosin 0.4 mg capsule 0.4 mg PO DAILY finasteride 5 mg tablet 5 mg PO DAILY Label Comments: TAKE 1 TABLET BY MOUTH ONCE DAILY aspirin 81 MG tablet,chewable 81 mg PO DAILY Hold Instructions: Resume on 11/06/22. ciprofloxacin HCl [Cipro] 250 mg tablet 250 mg PO BID Qty: 20 0RF clopidogrel 75 mg tablet 75 mg PO DAILY Qty: 90 3RF Hold Instructions: Resume on 11/06/22. Rx Instructions: prevent clotting nitroglycerin 0.4 mg tablet, sublingual 0.4 mg SUBLINGUAL Q5M PRN (Reason: Chest Pain) Qty: 25 3RF Entresto 24-26 mg tablet 1 tab PO BID Qty: 180 3RF simvastatin 20 mg tablet See Rx Instructions .ROUTE .COMPLEX Qty: 90 3RF Dose Instruction: TAKE 1 TABLET BY MOUTH AT BEDTIME FOR CHOLESTEROL Rx Instructions: TAKE 1 TABLET BY MOUTH AT BEDTIME FOR CHOLESTEROL Primary Care Provider: Shailesh Mancini Referrals: Terry Mckeon DO [Med Staff - [employer]] - 2 Days Shailesh Mancini MD [Primary Care Provider] - Activity Restrictions/Additional Instructions: Follow-up with Dr. Mckeon in the next 2 to 3 days. Return to the emergency department with fever, increased pain, new or worsening symptoms. Disposition Disposition: Home, Self Care
[2022-12-27] MEDS: 0.9% Normal Saline 1,000 ML 1000 ML IV (21:49)
[2022-12-27 22:08] LABS: Absolute Lymphocyte Count 1.73 X10^3/uL (0.83-4.51); Absolute Neutrophil Count 7.5 X10^3/uL (2.0-7.7); Basophil# 0.05 X10^3/uL; Basophil% 0.5 % (0-1); Eosinophil# 0.11 X10^3/uL; Hematocrit 39.2 % (40-54); Hemoglobin 12.8 g/dL (13.0-16.5); Lymphocyte # 1.73 X10^3/ul (0.83-4.51); Mean Corp Hgb Conc 32.7 g/dL (32-36); Mean Corpuscular Hgb 29.8 pg (27.0-32.0); Mean Corpuscular Volume 91.4 fL (80-94); Mean Platelet Vol. 11.6 fl (6.2-12.0); Monocyte# 1.36 X10^3/uL; Monocyte% 12.6 % (0-10); NRBC Flagged by Analyzer 0 % (0-5); Neutrophil # 7.54 X10^3/uL (2.7-7.7); Neutrophil % 69.5 % (47-70); Platelet Count 195 K/mm3 (150-450); RBC Distribution Width SD 46.6 fl (35.1-43.9); Red Blood Count 4.29 M/mm3 (4.6-6.2); White Blood Count 10.8 K/mm3 (4.4-11.0)
[2022-12-27 22:11] LABS: Bacteria 0 SEEN /hpf (None Seen); Mucous, Urine 0 SEEN /hpf (<or=2+); Red Blood Cells-Urine 0 SEEN /hpf (0-5)
[2022-12-27 22:13] LABS: Color, Urine Yellow (Yellow); Glucose, Dipstick Normal (Normal); Ketone-Dipstick Negative (Negative); Leukocyte Esterase-Dipstick 25 /ul (Negative); Nitrite-Dipstick Negative (Negative); Occult Blood-Urine Negative /ul (Negative); Protein-Dipstick 15 mg/dl (Negative); Urine Bilirubin Dipstick Negative (Negative); Urine Clarity Sl. Cloudy (Clear); Urine Urobilinogen Normal (Normal)
[2022-12-27 22:19] LABS: Squamous Epithelial Cells - UA 0-5 SEEN /hpf (0-5); White Blood Cells 0-5 SEEN /hpf (0-5)
[2022-12-27 22:24] LABS: ALB/GLOB Ratio 1.1 RATIO (0.9-2.4); AST(SGOT) 8 U/L (15-37); Alanine Aminotransfer ALT/SGPT 11 U/L (16-61); Albumin, Serum 3.9 g/dL (3.2-5.0); Alkaline Phosphatase 68 U/L (45-117); Anion Gap 7 (5-15); BUN 11 mg/dL (7-18); BUN/Creat Ratio 11.9 RATIO (10-20); Calcium,Total 8.9 mg/dL (8.5-10.1); Chloride 102 mmol/L (98-107); Creatinine, Serum 0.93 mg/dL (0.70-1.30); EST Glomerular Filtration Rate 82 mL/min (>60); Est Glom Filt Rate - Afr Amer 99 mL/min (>60); Estimated Creatinine Clearance 42.47 ml/min; Globulin 3.7 g/dL (2.2-4.2); Glucose 135 mg/dL (74-106); Potassium 3.4 mmol/L (3.5-5.1); Protein, Total 7.6 g/dL (6.4-8.2); Sodium Level 139 mmol/L (136-145)
[2022-12-28 00:08] VITALS: BP 139/77; PULSE 72; RESP 16; O2SAT 98
[2022-12-28] MEDS: Amox/Clavulanate 875 MG Tablet PO (00:14)
== END 2022-12-28 00:21 | disposition home or self-care (01) ==
PROVIDERS: Emergency Provider Emergency Medicine; PCP Family Medicine; Visit Provider Emergency Medicine
DX: K57.32 Diverticulitis of large intestine without perforation or abscess without bleeding (principal); I11.0 Hypertensive heart disease with heart failure; I50.22 Chronic systolic (congestive) heart failure; I25.10 Atherosclerotic heart disease of native coronary artery without angina pectoris
CPT/HCPCS: 74177; 80053; 81001; 85025; 96360; 99284; J7030; Q9967; A4216

== ENCOUNTER 2023-01-06 08:50 | Emergency (ER) | payer MEDICARE, SELFPAY ==
[2018-12-28 14:17] VITALS: BMI 22.3
[2023-01-06 08:51] VITALS: BP 125/59; PULSE 82; RESP 18; TEMP 36.8; O2SAT 100; BMI 21.0
[2023-01-06] MEDS: 0.9% Normal Saline 1,000 ML 1000 ML IV (09:21)
--- NOTE | 2023-01-06 09:24 | EDS_ITS ---
HPI HPI - GI History of Present Illness Chief Complaint: Abd Pain Detail of Chief Complaint: Lower central abdominal pain Informant: patient and spouse/S.O. Abdominal Pain/Flank Pain Onset: Yesterday Context: Sudden Onset Timing: Intermittent Quality: Aching Location: - (Suprapubic region) Current Severity: Gone Maximum Severity: Moderate Worsened by: - (When I have diarrhea); Not Worsened By Car ride, Food or Movement Relieved by: Nothing; Not Relieved By Antacids, Food or Remaining Still Nausea/Vomiting/Emesis GI Symptom: Positive for Nausea; Negative for Vomiting Diarrhea/Melena/Hematochezia GI Symptom: Positive for Diarrhea Onset: Yesterday Stool Quality: Positive for Loose, Watery and Mucous; Negative for Black, Maroon or BRB per rectum Severity: Severe Episodes: 15 Associated Symptoms Associated Symptoms: Negative for Dysuria, Frequency, Hematuria or Urgency Narrative Narrative: Patient is a 88-year-old male who was seen on December 27 for left-sided abdominal pain and diagnosed with uncomplicated diverticulitis. He was discharged with prescription for Augmentin 875 mg twice daily. He states his last dose is tonight. Blood work for that visit was remarkable for mild anemia only. She now presents because he has pain central lower abdomen that predominantly occurs when he has a loose watery mucousy stool. He believes he has had 15 possibly 20 since yesterday. He denies urologic symptoms. He denies fever or chills. He denies orthostatic symptoms. He does report mild dry mouth. He denies headache, visual, ocular auditory symptoms. He denies cardiac or respiratory symptoms. He denies orthostatic symptoms. He denies neurologic symptoms. Patient is on Plavix. He is on no anticoagulant. 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 Dyspnea Easy bruising Essential hypertension Excessive bleeding Family history of CVA Family history of hypertension Fatigue FH: sudden cardiac (SCD) GERD (gastroesophageal reflux disease) High cholesterol High risk medication use History of CHF (congestive heart failure) History of echocardiogram History of placement of internal cardiac defibrillator History of stress test HLD (hyperlipidemia) HTN (hypertension) Hypokalemia Implantable cardioverter-defibrillator (ICD) at end of battery life Iron deficiency anemia Old myocardial infarction Pure hypercholesterolemia Wears glasses Home Medications aspirin 81 mg chewable tablet 81 mg PO DAILY heart health 03/05/16 [History Last Taken 10/09/22] diphenhydramine 25 mg-acetaminophen 500 mg tablet (Tylenol PM Extra Strength) 2 tab PO QHS PRN Insomnia 10/22/17 [History Last Taken 12/27/18] clopidogrel 75 mg tablet 75 mg PO DAILY #90 tabs 10/28/21 [Rx Last Taken 10/09/22] nitroglycerin 0.4 mg sublingual tablet 0.4 mg sublingual Q5M PRN Chest Pain #25 tabs 02/17/22 [Rx Last Taken Unknown] carvedilol 3.125 mg tablet (Coreg) 3.125 mg PO BID 03/05/22 [History Last Taken 10/21/22] finasteride 5 mg tablet 5 mg PO DAILY 03/05/22 [History Last Taken Unknown] tamsulosin 0.4 mg capsule 0.4 mg PO DAILY 03/05/22 [History Last Taken Unknown] furosemide 20 mg tablet 20 mg PO Q OTHER DAY 08/05/22 [History Last Taken Unknown] simvastatin 20 mg tablet See Rx Instructions .Route .COMPLEX #90 tabs 09/14/22 [Rx Last Taken Unknown] ciprofloxacin HCl 250 mg tablet (Cipro) 250 mg PO BID #20 tabs 10/21/22 [Rx Last Taken Unknown] amoxicillin 875 mg-potassium clavulanate 125 mg tablet 1 tab PO BID #20 tabs 12/27/22 [Rx Last Taken Unknown] sacubitril 24 mg-valsartan 26 mg tablet (Entresto) 1 tab PO BID Heart Failure #180 tabs 01/05/23 [Rx Last Taken Unknown] Allergy/AdvReac Type Severity Reaction Status Date / Time morphine Allergy Intermediate Rash Verified 01/06/23 08:54 zolpidem tartrate AdvReac Intermediate CONFUSION Verified 01/06/23 08:54 [From Ambien] Family History Mother CAD (coronary artery disease) CVA (cerebral vascular accident) Myocardial infarction, Onset Age: 67 Hypertension Brother CAD (coronary artery disease) Hypertension Cancer Lung CA Myocardial infarction, Onset Age: 73 Father Myocardial infarction, Onset Age: 77 Daughter Cancer Son Myocardial infarction, Onset Age: 46 Surgical History History of cardiac catheterization History of hernia repair History of left heart catheterization History of prostate surgery History of PTCA (08/02/08) Hx of colonoscopy Hx of surgical procedure S/P TURP (status post transurethral resection of prostate) Stented coronary artery (~12/28/18) Social History (Updated 01/06/23 @ 09:[address] Henok Villarreal MD) household members: spouse Smoking Status: Never smoker alcohol intake: never substance use type: does not use caffeine: Yes Type: carbonated beverages and coffee Number of servings: 1 what type of physical activity do you participate in: none seatbelt use: always do you feel safe at home: Yes ROS ROS ED Constitutional Constitutional ED: Denies chills, fever(s), subjective, sweats or weight loss ENT ENT ED: Denies ear pain, rhinorrhea or sore throat Cardiovascular Cardiovascular: Denies chest pain, palpitations or racing heartbeat Respiratory/Chest Respiratory/Chest: Denies cough, dyspnea or dyspnea on exertion Gastrointestinal Gastrointestinal: Reports abdominal pain, diarrhea and nausea; Denies constipation, melena or vomiting Genitourinary Genitourinary ED: Denies dysuria, hematuria or urinary frequency Musculoskeletal Musculoskeletal: Denies arthralgias, back pain, myalgias or neck pain Integumentary Denies abscess, Abrasions or rash Neurologic Neurologic: Denies headache(s), paresthesias or weakness Endocrine Endocrinology: Denies polydipsia, polyphagia or polyuria Hematologic/Lymphatic Hematologic/Lymphatic: Denies easy bleeding or easy bruising EXAM Physical Exam Const Vital Signs: 01/06/23 08:51 01/06/23 12:03 Temperature 98.2 F Temperature Source Temporal Pulse Rate 82 76 Respiratory Rate 18 15 Blood Pressure 125/59 H 109/51 L Blood Pressure Mean 81 70 Pulse Ox 100 96 Oxygen Delivery Method Room Air Room Air Positive well nourished and well developed General Appearance ED: well developed and NAD; Negative for pallor HEENT Reports TM's clear; Denies dry mucous membranes normocephalic and atraumatic Tympanic Membrane ED: Yes TM's clear Mouth ED: No dry mucous membranes Mouth: No dry mucous membranes Eyes PERRL and EOMs intact bilaterally General Eye ED: Negative for pale conjunctiva or scleral icterus Neck no lymphadenopathy, supple and no JVD Resp normal respiratory effort and clear to auscultation bilaterally Cardio regular rate, regular rhythm, S1 normal heart sound, S2 normal heart sound and no murmurs GI non-distended and no masses; Negative for non-tender Auscultation: normoactive bowel sounds Palpation: soft and tender suprapubic; Negative for guarding, rigid, hepatomegaly, splenomegaly, hernia, mass or pulsatile mass Narrative: There is no inguinal mass or hernia. Back/Spine no CVA tenderness Extremity full ROM Neuro CN's II-XII intact bilaterally, moves all extremities, no sensory deficits noted and gait normal Sensorium / Orientation: alert Motor Exam: strength 5/5 throughout Psych mental status grossly normal and thought process normal Skin no wounds General Skin Exam: Negative for jaundice or pallor Lesions: no lesions Rashes: no rashes MDM MDM MDM Narrative Medical decision making narrative: Patient presents with predominantly diarrhea. This may be secondary to the amoxicillin clavulanic acid patient was prescribed since there is a 4 to 8% incidence of diarrhea versus Pseudomonas enterocolitis. Clinically patient appears dehydrated. Will administer 1 L of normal saline. We will treat his nausea with Zofran. Will obtain CBC to assess white count differential and BMP to assess renal function and rule out hypokalemia. As aforementioned his prior labs that were obtained on December 27 the only abnormality was a mild anemia. Clinically patient does not require imaging since he has no guarding or peritoneal findings. Lab Data Attestation: I reviewed the patient's lab results. Lab results narrative: White count is slightly elevated with mild shift no bandemia compared to 5 resorts on December 27. Creatinine is normal with a normal GFR. Glucose is slightly elevated. CO2 and anion gap are normal. Labs: Laboratory Results - last 24 hr 01/06/23 01/06/23 08:14 08:14 WBC 12.2 H RBC 3.97 L Hgb 11.9 L Hct 36.5 L MCV 91.9 MCH 30.0 MCHC 32.6 RDW Std Deviation 48.6 H RDW Coeff of Arleen 14.4 Plt Count 225 MPV 10.8 Immature Gran % (Auto) 0.200 Neut % (Auto) 74.2 H Lymph % (Auto) 10.7 L Hickman % (Auto) 13.4 H Eos % (Auto) 1.2 Baso % (Auto) 0.3 Absolute Neuts (auto) 9.1 H Absolute Lymphs (auto) 1.31 Nucleated RBC % 0 Differential Comment SCANNED Diff Path Review March Sodium 139 Potassium 3.7 Chloride 108 H Carbon Dioxide 26.0 Anion Gap 5 BUN 10 Creatinine 0.86 Estim Creat Clear Calc 46.20 Est GFR (MDRD) Af Amer 108 Est GFR (MDRD) Non-Af 89 BUN/Creatinine Ratio 11.6 Glucose 123 H Calcium 8.3 L Treatment and Re-Evaluation :: Patient has had no diarrhea during his stay. Suspect the diarrhea is due to the Augmentin which is known to cause diarrhea. He was instructed to discontinue/not take his last dose of Augmentin tonight. He was discharged home in stable and improved condition Discharge Plan Triage Chief Complaint: Abd Pain ED Provider: Henok Villarreal Dx/Rx/DC Orders Clinical Impression: Antibiotic-associated diarrhea, Mild dehydration, Leukocytosis, High risk medication use, History of ischemic cardiomyopathy Instructions: ED Diet Vomiting Diarrhea Prescriptions: No Action diphenhydramine-acetaminophen [Tylenol PM Extra Strength] 25-500 mg tablet 2 tab PO QHS PRN (Reason: Insomnia) furosemide 20 mg tablet 20 mg PO Q OTHER DAY carvedilol [Coreg] 3.125 mg tablet 3.125 mg PO BID Label Comments: TAKE 1 TABLET BY MOUTH TWICE DAILY WITH FOOD tamsulosin 0.4 mg capsule 0.4 mg PO DAILY finasteride 5 mg tablet 5 mg PO DAILY Label Comments: TAKE 1 TABLET BY MOUTH ONCE DAILY aspirin 81 MG tablet,chewable 81 mg PO DAILY Hold Instructions: Resume on 11/06/22. ciprofloxacin HCl [Cipro] 250 mg tablet 250 mg PO BID Qty: 20 0RF amoxicillin-pot clavulanate 875-125 mg tablet 1 tab PO BID Qty: 20 0RF clopidogrel 75 mg tablet 75 mg PO DAILY Qty: 90 3RF Hold Instructions: Resume on 11/06/22. Rx Instructions: prevent clotting nitroglycerin 0.4 mg tablet, sublingual 0.4 mg SUBLINGUAL Q5M PRN (Reason: Chest Pain) Qty: 25 3RF simvastatin 20 mg tablet See Rx Instructions .ROUTE .COMPLEX Qty: 90 3RF Dose Instruction: TAKE 1 TABLET BY MOUTH AT BEDTIME FOR CHOLESTEROL Rx Instructions: TAKE 1 TABLET BY MOUTH AT BEDTIME FOR CHOLESTEROL Entresto 24-26 mg tablet 1 tab PO BID Qty: 180 3RF Primary Care Provider: Terry Mckeon Referrals: Shailesh Mancini MD [Non-Staff] - 3-5 Days if not improving Activity Restrictions/Additional Instructions: Discontinue taking the antibiotic, amoxicillin clavulanic acid Disposition Disposition: Home, Self Care
[2023-01-06 09:27] LABS: Absolute Lymphocyte Count 1.31 X10^3/uL (0.83-4.51); Absolute Neutrophil Count 9.1 X10^3/uL (2.0-7.7); Basophil# 0.04 X10^3/uL; Basophil% 0.3 % (0-1); Eosinophil# 0.15 X10^3/uL; Eosinophils% 1.2 % (0-5); Hematocrit 36.5 % (40-54); Hemoglobin 11.9 g/dL (13.0-16.5); Lymphocyte # 1.31 X10^3/ul (0.83-4.51); Lymphocyte % 10.7 % (19-41); Mean Corp Hgb Conc 32.6 g/dL (32-36); Mean Corpuscular Volume 91.9 fL (80-94); Mean Platelet Vol. 10.8 fl (6.2-12.0); Monocyte# 1.64 X10^3/uL; Monocyte% 13.4 % (0-10); NRBC Flagged by Analyzer 0 % (0-5); Neutrophil # 9.06 X10^3/uL (2.7-7.7); Neutrophil % 74.2 % (47-70); POSITIVE DIFFERENTIAL YES; Platelet Count 225 K/mm3 (150-450); RBC Distribution Width CV 14.4 % (11.6-14.6); RBC Distribution Width SD 48.6 fl (35.1-43.9); Red Blood Count 3.97 M/mm3 (4.6-6.2); White Blood Count 12.2 K/mm3 (4.4-11.0)
[2023-01-06 09:30] LABS: Differential Indicated SCAN CRITERIA MET
[2023-01-06 09:31] LABS: Anion Gap 5 (5-15); BUN 10 mg/dL (7-18); BUN/Creat Ratio 11.6 RATIO (10-20); Calcium,Total 8.3 mg/dL (8.5-10.1); Chloride 108 mmol/L (98-107); Creatinine, Serum 0.86 mg/dL (0.70-1.30); EST Glomerular Filtration Rate 89 mL/min (>60); Est Glom Filt Rate - Afr Amer 108 mL/min (>60); Glucose 123 mg/dL (74-106); Potassium 3.7 mmol/L (3.5-5.1); Sodium Level 139 mmol/L (136-145)
[2023-01-06 10:11] LABS: Differential Comment SCANNED
[2023-01-06 12:03] VITALS: BP 109/51; PULSE 76; RESP 15; O2SAT 96
[2023-01-07 13:27] LABS: Pathologist Review Reviewed
== END 2023-01-06 12:43 | disposition home or self-care (01) ==
PROVIDERS: Emergency Provider Emergency Medicine; PCP Family Medicine; Visit Provider Emergency Medicine
DX: K52.1 Toxic gastroenteritis and colitis (principal); I11.0 Hypertensive heart disease with heart failure; I50.22 Chronic systolic (congestive) heart failure; T36.0X5A Adverse effect of penicillins, initial encounter; I25.5 Ischemic cardiomyopathy; I25.10 Atherosclerotic heart disease of native coronary artery without angina pectoris; D64.9 Anemia, unspecified; E86.0 Dehydration; Z79.899 Other long term (current) drug therapy; Z79.82 Long term (current) use of aspirin; I25.2 Old myocardial infarction; D72.829 Elevated white blood cell count, unspecified
CPT/HCPCS: 80048; 85025; 96360; 96361; 99283; A4216

== ENCOUNTER → 2023-03-26 | Outpatient (CLI) | payer MEDICARE, SELFPAY ==
[2018-12-28 14:17] VITALS: BMI 22.3
[2023-03-26 15:00] LABS: Absolute Lymphocyte Count 1.89 X10^3/uL (0.83-4.51); Absolute Neutrophil Count 8.9 X10^3/uL (2.0-7.7); Basophil# 0.04 X10^3/uL; Basophil% 0.3 % (0-1); Eosinophil# 0.05 X10^3/uL; Eosinophils% 0.4 % (0-5); Hematocrit 37.5 % (40-54); Hemoglobin 12.1 g/dL (13.0-16.5); Lymphocyte # 1.89 X10^3/ul (0.83-4.51); Lymphocyte % 15.6 % (19-41); Mean Corp Hgb Conc 32.3 g/dL (32-36); Mean Corpuscular Volume 92.8 fL (80-94); Mean Platelet Vol. 11.2 fl (6.2-12.0); Monocyte# 1.29 X10^3/uL; Monocyte% 10.6 % (0-10); NRBC Flagged by Analyzer 0 % (0-5); Neutrophil # 8.86 X10^3/uL (2.7-7.7); Neutrophil % 72.9 % (47-70); Platelet Count 224 K/mm3 (150-450); RBC Distribution Width CV 14.4 % (11.6-14.6); RBC Distribution Width SD 49.5 fl (35.1-43.9); Red Blood Count 4.04 M/mm3 (4.6-6.2); White Blood Count 12.2 K/mm3 (4.4-11.0)
[2023-03-26 15:24] LABS: ALB/GLOB Ratio 0.9 RATIO (0.9-2.4); AST(SGOT) 17 U/L (15-37); Alanine Aminotransfer ALT/SGPT 16 U/L (16-61); Albumin, Serum 3.6 g/dL (3.2-5.0); Alkaline Phosphatase 65 U/L (45-117); Anion Gap 6 (5-15); BUN 14 mg/dL (7-18); BUN/Creat Ratio 14.3 RATIO (10-20); Calcium,Total 8.6 mg/dL (8.5-10.1); Chloride 104 mmol/L (98-107); Creatinine, Serum 0.98 mg/dL (0.70-1.30); EST Glomerular Filtration Rate 77 mL/min (>60); Est Glom Filt Rate - Afr Amer 93 mL/min (>60); Globulin 3.8 g/dL (2.2-4.2); Glucose 113 mg/dL (74-106); Potassium 4.1 mmol/L (3.5-5.1); Protein, Total 7.4 g/dL (6.4-8.2); Sodium Level 138 mmol/L (136-145)
[2023-03-28 06:37] LABS: Carbohydrate AG 19-9 7 U/mL (0-35); Carcinoembryonic Antigen 0.7 ng/mL (0.0-4.7)
== END | disposition home or self-care (01) ==
LOC: BFHLAB 13:36
PROVIDERS: PCP Family Medicine; Referring Provider Family Medicine; Visit Provider Family Medicine
DX: R19.7 Diarrhea, unspecified (principal); R10.9 Unspecified abdominal pain; R93.5 Abnormal findings on diagnostic imaging of other abdominal regions, including retroperitoneum
CPT/HCPCS: 36415; 80053; 82378; 85025; 86140; 86301

== ENCOUNTER → 2023-04-07 | Outpatient (CLI) | payer MEDICARE, SELFPAY ==
[2018-12-28 14:17] VITALS: BMI 22.3
--- NOTE | 2023-04-07 15:45 | CT_ITS ---
STUDY: CT ABDOMEN AND PELVIS WITH CONTRAST REASON FOR EXAM: Male, 88 years old. R/O MALIGNANCY/ABD PAIN RADIATION DOSAGE (If Supplied By Facility): CTDIvol = ( 12.85 ) mGy, DLP = ( 566.17 ) mGycm TECHNIQUE: Transaxial images were obtained from the dome of the diaphragm to the symphysis pubis with oral contrast. Oral and amp; IV Readi-CAT and amp; 100mL Isovue-300 was administered. Sagittal and coronal images were reconstructed. Individualized dose optimization techniques were used for this CT. COMPARISON: Comparison is made with prior study dated December 27, 2022. FINDINGS: Progressive increased markings in the anterior medial aspect of the right middle lobe as compared to prior study. This may represent progressive scarring. Coronary artery calcification. A dual-chamber pacemaker is seen. Normal liver. The patient is status post cholecystectomy. Stable mild degree of central intrahepatic biliary ductal dilatation. Normal spleen. There is diffuse atrophy of the pancreas. Stable 2.3 cm x 1.2 cm cyst in the pancreatic head. Normal bilateral adrenal glands. 4.5 cm x 6.5 some cyst in the upper pole of the right kidney. Normal left kidney. Normal visualized stomach. Normal small intestine. There are multiple colonic diverticula consistent with diverticulosis. Heterogeneous appearance of the cecum and ascending colon most likely secondary to the presence of a fecal material. A barium enema is recommended for further evaluation. There are surgical clips in the region of the appendix consistent with a prior appendectomy. There is diffuse atherosclerotic calcification of the abdominal aorta, without a demonstrated aneurysm. Normal inferior vena cava. Normal retroperitoneum. Distended urinary bladder. Heterogeneous enlargement of the prostate with indentation at the bladder base. 3.2 cm x 2.5 cm polypoid lesion is seen at the base of the bladder on the left side. This may represent protrusion of the heterogeneous prostate although a bladder mass cannot be excluded. Normal abdominal wall. There are mild degenerative changes of the visualized lumbar spine. Increased lordosis. CT/Abdomen/Pelvis WITH Contrast IMPRESSION: Progressive infiltrate in the anterior medial aspect of the right middle lobe. Heterogeneous enlargement of the prostate with distention of the urinary bladder and intraluminal polypoid lesion at the base of the bladder on the left side. Cystoscopy is recommended. Sigmoid diverticulosis. Stable small cyst in the pancreas. Electronically Signed: Onofre Vincent MD at 12:32 EDT ,
== END | disposition home or self-care (01) ==
LOC: CT 15:36
PROVIDERS: PCP Family Medicine; Referring Provider Family Medicine; Visit Provider Family Medicine
DX: R10.31 Right lower quadrant pain (principal); R19.7 Diarrhea, unspecified; R19.5 Other fecal abnormalities; R93.5 Abnormal findings on diagnostic imaging of other abdominal regions, including retroperitoneum; R63.4 Abnormal weight loss
CPT/HCPCS: 74177; Q9967

== ENCOUNTER → 2023-05-11 | Outpatient (CLI) | payer MEDICARE, SELFPAY ==
[2018-12-28 14:17] VITALS: BMI 22.3
--- NOTE | 2023-05-11 15:28 | CT_ITS ---
STUDY: CT CHEST WITHOUT CONTRAST REASON FOR EXAM: Male, 88 years old. PULMONARY NODULES RADIATION DOSAGE (If Supplied By Facility): CTDIvol = ( 9.18 ) mGy, DLP = ( 362.44 ) mGycm TECHNIQUE: Transaxial imaging was performed without the administration of intravenous contrast material. Multiplanar coronal and sagittal images were reformatted. Individualized dose optimization techniques were used for this CT. COMPARISON: No relevant priors. FINDINGS: CHEST Minimal increased linear markings in the superior medial aspect of the left upper lobe suggestive of scarring. 1.5 mm noncalcified nodule in the peripheral lateral aspect of the superior segment of the left lower lobe as seen on axial image #27. 5 mm noncalcified nodule in the peripheral lateral aspect of the superior segment of the left upper lobe as seen on axial image #33. Increased markings in the posterior medial segment of the left lower lobe suggestive of scarring. Increased markings in the posterior aspect of the left lower lobe. There is evidence of bronchiectasis in the mild loss and scarring in the medial aspect of the right middle lobe. There is no demonstrated pleural abnormality. There are calcifications of the coronary arteries. A left-sided dual-chamber pacemaker is seen. Normal mediastinum. Normal hilar regions. Normal unenhanced pulmonary arteries. There is atherosclerotic calcification of the aortic arch with tortuosity and elongation of the aortic arch and descending thoracic aorta. The transverse diameter of the proximal descending thoracic aorta measures 4 cm. There are multi-level degenerative changes of the thoracic spine. Increased kyphosis. There is a 3.9 cm x 6.4 cm cyst in the upper pole of the right kidney. Small hiatal hernia. CT/Chest without Contrast IMPRESSION: Subcentimeter nodules are seen in the superior segment of the left upper lobe as well has scarring in the lower lobes and right middle lobe. Twelve-month follow-up recommended. Electronically Signed: Onofre Vincent MD at 12:33 EDT ,
== END | disposition home or self-care (01) ==
PROVIDERS: PCP Family Medicine; Referring Provider Family Medicine; Visit Provider Family Medicine
DX: R91.8 Other nonspecific abnormal finding of lung field (principal)
CPT/HCPCS: 71250

== ENCOUNTER → 2023-07-09 | Outpatient (CLI) | payer MEDICARE, SELFPAY ==
[2018-12-28 14:17] VITALS: BMI 22.3
[2023-07-09 14:38] LABS: Hematocrit 39.8 % (40-54); Hemoglobin 12.8 g/dL (13.0-16.5); Mean Corp Hgb Conc 32.2 g/dL (32-36); Mean Corpuscular Hgb 29.3 pg (27.0-32.0); Mean Corpuscular Volume 91.1 fL (80-94); Mean Platelet Vol. 11.2 fl (6.2-12.0); Platelet Count 174 K/mm3 (150-450); RBC Distribution Width CV 13.5 % (11.6-14.6); RBC Distribution Width SD 45.5 fl (35.1-43.9); Red Blood Count 4.37 M/mm3 (4.6-6.2); White Blood Count 6.8 K/mm3 (4.4-11.0)
[2023-07-09 15:17] LABS: Anion Gap 5 (5-15); BUN 21 mg/dL (7-18); BUN/Creat Ratio 25.1 RATIO (10-20); Calcium,Total 9.1 mg/dL (8.5-10.1); Chloride 106 mmol/L (98-107); Creatinine, Serum 0.84 mg/dL (0.70-1.30); EST Glomerular Filtration Rate 92 mL/min (>60); Est Glom Filt Rate - Afr Amer 111 mL/min (>60); Glucose 111 mg/dL (74-106); Sodium Level 139 mmol/L (136-145); Thyroid Stim Hormone (TSH) 0.79 uIU/mL (0.358-3.74)
[2023-07-09 15:25] LABS: BNP,B-Type NATRIURETIC PEPTIDE 157.6 pg/mL (0-100)
== END | disposition home or self-care (01) ==
LOC: LAB 14:02
PROVIDERS: PCP Family Medicine; Referring Provider Nurse Practitioner Gerontology; Visit Provider Nurse Practitioner Gerontology
DX: R53.1 Weakness (principal); I50.22 Chronic systolic (congestive) heart failure; R53.83 Other fatigue; I25.5 Ischemic cardiomyopathy
CPT/HCPCS: 36415; 80048; 83880; 84443; 85027

== ENCOUNTER → 2023-07-20 | Outpatient (CLI) | payer MEDICARE, SELFPAY ==
[2018-12-28 14:17] VITALS: BMI 22.3
[2023-07-20 13:27] LABS: Anion Gap 3 (5-15); BUN 16 mg/dL (7-18); BUN/Creat Ratio 16.6 RATIO (10-20); Calcium,Total 8.5 mg/dL (8.5-10.1); Chloride 106 mmol/L (98-107); Creatinine, Serum 0.97 mg/dL (0.70-1.30); EST Glomerular Filtration Rate 78 mL/min (>60); Est Glom Filt Rate - Afr Amer 95 mL/min (>60); Glucose 114 mg/dL (74-106); Potassium 4.1 mmol/L (3.5-5.1); Sodium Level 139 mmol/L (136-145)
== END | disposition home or self-care (01) ==
PROVIDERS: PCP Family Medicine; Referring Provider Nurse Practitioner Gerontology; Visit Provider Nurse Practitioner Gerontology
DX: Z51.81 Encounter for therapeutic drug level monitoring (principal); Z79.899 Other long term (current) drug therapy
CPT/HCPCS: 36415; 80048

== ENCOUNTER → 2023-08-31 | Outpatient (CLI) | payer MEDICARE, SELFPAY ==
[2018-12-28 14:17] VITALS: BMI 22.3
== END | disposition home or self-care (01) ==
LOC: LABSPEC 14:13
PROVIDERS: PCP Family Medicine; Referring Provider Urology; Visit Provider Urology
DX: R97.20 Elevated prostate specific antigen [PSA] (principal)
CPT/HCPCS: 36415; 84153

== ENCOUNTER 2023-09-04 15:19 | Observation (INO) | payer MEDICARE, SELFPAY ==
[2018-12-28 14:17] VITALS: BMI 22.3
[2023-09-04 15:20] VITALS: BP 117/63; PULSE 95; RESP 18; TEMP 36.7; O2SAT 98; BMI 19.9
--- NOTE | 2023-09-04 15:42 | EX.ED.DYSGE1 ---
HPI <MORTEZA Staton - Last Filed: 09/04/23 18:05> History of Present Illness Chief Complaint: Complaint Narrative Narrative: Patient is a 88-year-old male with history of ID, CAD, cardiomyopathy who presents to the emergency department for generalized weakness. 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 Since then, the patient's been more incontinent, has not been feeling well, is not eating or drinking and per the daughter is unable to get out of bed. The patient does live by himself, and per the daughter, he cannot take care of himself. Patient states he generalized does not feel well however denies any fever or chills. 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 Dyspnea Easy bruising Elevated troponin Essential hypertension Excessive bleeding Family history of CVA Family history of hypertension Fatigue FH: sudden cardiac (SCD) General weakness GERD (gastroesophageal reflux disease) High cholesterol High risk medication use History of CHF (congestive heart failure) History of echocardiogram History of placement of internal cardiac defibrillator History of stress test HLD (hyperlipidemia) HTN (hypertension) Hypokalemia Implantable cardioverter-defibrillator (ICD) at end of battery life Iron deficiency anemia Old myocardial infarction Orchitis of right testicle Otitis media Presence of stent in coronary artery (~12/28/18) Pure hypercholesterolemia SBO (small bowel obstruction) Sepsis Wears glasses Home Medications aspirin 81 mg chewable tablet 81 mg PO DAILY heart health 03/05/16 [History Last Taken 10/09/22] diphenhydramine 25 mg-acetaminophen 500 mg tablet (Tylenol PM Extra Strength) 2 tab PO QHS PRN Insomnia 10/22/17 [History Last Taken 12/27/18] nitroglycerin 0.4 mg sublingual tablet 0.4 mg sublingual Q5M PRN Chest Pain #25 tabs 02/17/22 [Rx Last Taken Unknown] finasteride 5 mg tablet 5 mg PO DAILY 03/05/22 [History Last Taken Unknown] tamsulosin 0.4 mg capsule 0.4 mg PO DAILY 03/05/22 [History Last Taken Unknown] furosemide 20 mg tablet 20 mg PO Q OTHER DAY 08/05/22 [History Last Taken Unknown] simvastatin 20 mg tablet See Rx Instructions .Route .COMPLEX #90 tabs 09/14/22 [Rx Last Taken Unknown] clopidogrel 75 mg tablet 75 mg PO DAILY #90 tabs 03/04/23 [Rx Last Taken Unknown] carvedilol 3.125 mg tablet 3.125 mg PO BID #180 tabs 06/17/23 [Rx Last Taken Unknown] sacubitril 49 mg-valsartan 51 mg tablet (Entresto) 1 tab PO BID #180 tabs 06/17/23 [Rx Last Taken Unknown] Allergy/AdvReac Type Severity Reaction Status Date / Time morphine Allergy Intermediate Rash Verified 09/04/23 15:20 zolpidem tartrate AdvReac Intermediate CONFUSION Verified 09/04/23 15:20 [From Ambien] Family History (Updated 07/09/23 @ 13:38 by Alexia Hendricks) Mother CAD (coronary artery disease) CVA (cerebral vascular accident) Myocardial infarction, Onset Age: 67 Hypertension Brother CAD (coronary artery disease) Hypertension Cancer Lung CA Myocardial infarction, Onset Age: 73 Father Myocardial infarction, Onset Age: 77 Daughter Cancer Son Myocardial infarction, Onset Age: 46 Other Cardiomyopathy, ischemic Chronic systolic congestive heart failure Fatigue General weakness Iron deficiency anemia Surgical History History of cardiac catheterization History of hernia repair History of left heart catheterization History of prostate surgery Hx of colonoscopy Hx of surgical procedure Presence of coronary artery bypass graft stent (~12/28/18) S/P TURP (status post transurethral resection of prostate) Social History household members: spouse Smoking Status: Never smoker alcohol intake: never substance use type: does not use caffeine: Yes Type: carbonated beverages and coffee Number of servings: 1 what type of physical activity do you participate in: none seatbelt use: always do you feel safe at home: Yes ROS <MORTEZA Staton Last Filed: 09/04/23 18:05> ROS ED ROS Narrative Constitutional: Negative for fever, chills, weight loss. Positive for generalized weakness Eyes: Negative for vision loss, vision change, double vision ENT: Negative for any sore throat, ear pain, congestion Cardiovascular: Negative for any chest pain, tightness, palpitations Respiratory: Negative for any cough, sputum production, hemoptysis, dyspnea, dyspnea on exertion, orthopnea Gastrointestinal: Negative for any nausea, vomiting, diarrhea, constipation, blood in stool, blood in vomit. Positive for abdominal pain : Negative for any dysuria, retention, blood in urine. Positive for incontinence, urinary frequency Muscle skeletal: Negative for any muscle joint pain, stiffness, myalgias, arthralgias, neck pain, back pain Neurological: Negative for any headache, syncope, numbness or tingling, dizziness Skin: Negative for any rashes, lumps, itching, abrasions, lacerations Psychiatric: Negative for any depression, anxiety, stress, suicidal ideation, homicidal ideation Hematologic: Negative for any easy bruising, excessive bruising, easy bleeding Allergies: Negative for any eczema, hives, rash EXAM <MORTEZA Staton - Last Filed: 09/04/23 18:05> Physical Exam Narrative Exam Narrative: Vital signs reviewed. She is alert and orient x4, I do smell some ketones the patient's breath. Patient is in no obvious distress. HEET: Head normocephalic atraumatic, TMs clear bilaterally. Posterior pharynx is clear, moist mucous membranes. Nares clear bilaterally. Neck: Supple with no lymphadenopathy or tenderness. No signs of meningismus, negative jolt sign. Cardiac: Regular rate and rhythm no murmurs gallops or rubs, equal peripheral pulses bilaterally. Respiratory: Lungs clear to auscultation bilaterally. No chest tenderness. Abdomen: Soft, nontender. No abdominal bruit or pulsatile masses. No hepatosplenomegaly. Patient does have some distention to the lower abdomen, there is slight pain on palpation. Extremities: No peripheral edema, no signs of gross trauma or deformity. Active full range of motion of all extremities. Neuro: Cranial nerves II through XII intact, no focal neurological deficits. Skin: Clean dry and intact with no rash, purpura, petechiae, vesicles or pustules. Backs/flank: No CVA tenderness, no midline spinal tenderness, no deformity. Psych: Normal mood and affect. No SI, HI or acute psychosis. Const Vital Signs: 09/04/23 15:20 09/04/23 17:31 09/04/23 18:13 Temperature 98.1 F 98.2 F Temperature Source Temporal Pulse Rate 95 67 82 Respiratory Rate 18 14 14 Blood Pressure 117/63 115/73 108/76 Blood Pressure Mean 81 87 86 Pulse Ox 98 97 97 Oxygen Delivery Method Room Air Room Air <Murray Morgan MD - Last Filed: 09/04/23 18:24> Physical Exam Const Vital Signs: 09/04/23 15:20 09/04/23 17:31 09/04/23 18:13 Temperature 98.1 F 98.2 F Temperature Source Temporal Pulse Rate 95 67 82 Respiratory Rate 18 14 14 Blood Pressure 117/63 115/73 108/76 Blood Pressure Mean 81 87 86 Pulse Ox 98 97 97 Oxygen Delivery Method Room Air Room Air MDM <MORTEZA Staton - Last Filed: 09/04/23 18:05> [facility] Lab Data Labs: Laboratory Results - last 24 hr 09/04/23 09/04/23 15:48 16:15 WBC 13.2 H RBC 3.84 L Hgb 11.3 L Hct 35.7 L MCV 93.0 MCH 29.4 MCHC 31.7 L RDW Std Deviation 49.5 H RDW Coeff of Arleen 14.6 Plt Count 208 MPV 11.7 Immature Gran % (Auto) 0.400 Neut % (Auto) 77.7 H Lymph % (Auto) 11.1 L Hanson % (Auto) 10.2 H Eos % (Auto) 0.2 Baso % (Auto) 0.4 Absolute Neuts (auto) 10.3 H Absolute Lymphs (auto) 1.47 Nucleated RBC % 0 Sodium 134 L Potassium 4.2 Chloride 101 Carbon Dioxide 17.0 L Anion Gap 16 H BUN 35 H Creatinine 1.39 H Estim Creat Clear Calc 27.02 Est GFR (MDRD) Af Amer 62 Est GFR (MDRD) Non-Af 51 L BUN/Creatinine Ratio 25.2 H Glucose 94 Calcium 8.7 Total Bilirubin 1.80 H AST 10 L ALT 11 L Alkaline Phosphatase 54 Total Protein 7.2 Albumin 3.4 Globulin 3.8 Albumin/Globulin Ratio 0.9 Lipase 11 L Urine Color Yellow Urine Clarity Sl. Cloudy Urine pH 6.0 Ur Specific Mcloud 1.020 Urine Protein 15 H Urine Glucose (UA) Normal Urine Ketones 50 H Urine Occult Blood 150 H Urine Nitrite Positive H Urine Bilirubin Negative Urine Urobilinogen Normal Ur Leukocyte Esterase 25 H Urine RBC 0-5 SEEN Urine WBC 5-10 SEEN Ur Squamous Epith Cells 0 SEEN Urine Bacteria 1+ Urine Mucus 0 SEEN Radiography Diagnostic Testing: Clinical Impression(s) from Imaging Studies Abdomen/Pelvis CT 09/04/23 16:40 IMPRESSION: Suspect bladder outlet obstruction with mild left ureteral dilatation and hydronephrosis, likely from the prostatic enlargement.. Electronically Signed: Leroy Barrett MD at 17:36 EDT Reading Location ID and State: [id number] / [employer] , Service support , Chest X-Ray 09/04/23 16:52 IMPRESSION: No active disease. Electronically Signed: Leroy Barrett MD at 17:27 EDT Reading Location ID and State: [id number] / [employer] , Service support , Treatment and Re-Evaluation :: Patient appears generally well, patient appears nontoxic, vital signs are stable. Presents to the emergency department for generalized feeling of not feeling well, urinary incontinence, patient did have a procedure done a couple weeks ago with Dr. Barth. Patient will receive some basic laboratory values, concerning for any dehydration, elevated blood glucose. Differential diagnosis includes UTI, chest x-ray concerning for a pneumonia. Patient received 500 cc of normal saline. A straight cath will be completed for the urine clean-catch, and to see if the patient is retaining. Patient did have wandered out of the straight cath. Patient's urinalysis was positive for infection with positive nitrates, 5-10 white blood cells, 1+ bacteria. Patient's laboratory values showed a leukocytosis with a white blood count of 13.2, hemoglobin 11.3. Patient's sodium 134 with an elevated creatinine of 1.39, patient's baseline is around 0.8. Total bili was 1.8, the remainder the labs are unremarkable. Patient did receive a chest x-ray which showed no acute disease. Urine culture will be sent. IV Rocephin given. This could be the cause of the patient's weakness, confusion. Patient's CT scan of the abdomen pelvis shows suspected bladder outlet obstruction with mild left ureteral dilatation and hydronephrosis, likely from the prosthetic enlargement. At this time, secondary the patient's urinary tract infection, altered mental status, weakness, inability to empty his bladder, I did speak with Dr. Tab Lacy, he recommended a Rod catheter. Patient be admitted to the hospital. I will speak with the hospitalist on-call. With the hospitalist, patient will be admitted to medical surgical floor on observation. Believe this is appropriate. Rod cath will be placed here. <Murray Morgan MD - Last Filed: 09/04/23 18:24> [facility] MDM Narrative Medical decision making narrative: Dr. Morgan: I have personally performed a face to face assessment of the patient and have reviewed the JOSHUA Note. I performed a substantive portion of the visit including all aspects of the following. My raines findings include: History is generalized weakness, dehydration and confusion. 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 Exam is afebrile. Vital signs noted. Regular rate and rhythm. Lungs clear to auscultation bilaterally. Abdomen soft with mild suprapubic distention/discomfort. Medical Decision Making: Insert Rod catheter. Check labs. Check CT. Discussed with urology. Patient with urinary outlet obstruction secondary to enlarged prostate. Insert Rod catheter. Patient lives at home alone. Assigned to observation after discussion with hospitalist. Patient in stable condition. Other additions or changes: [None] History & Record Review Discussion w/independent historian: Patient and Family Additional record(s) reviewed:: Prior ED visit and Prior labs Lab Data Attestation: I reviewed the patient's lab results. Labs: Laboratory Results - last 24 hr 09/04/23 09/04/23 15:48 16:15 WBC 13.2 H RBC 3.84 L Hgb 11.3 L Hct 35.7 L MCV 93.0 MCH 29.4 MCHC 31.7 L RDW Std Deviation 49.5 H RDW Coeff of Arleen 14.6 Plt Count 208 MPV 11.7 Immature Gran % (Auto) 0.400 Neut % (Auto) 77.7 H Lymph % (Auto) 11.1 L Hanson % (Auto) 10.2 H Eos % (Auto) 0.2 Baso % (Auto) 0.4 Absolute Neuts (auto) 10.3 H Absolute Lymphs (auto) 1.47 Nucleated RBC % 0 Sodium 134 L Potassium 4.2 Chloride 101 Carbon Dioxide 17.0 L Anion Gap 16 H BUN 35 H Creatinine 1.39 H Estim Creat Clear Calc 27.02 Est GFR (MDRD) Af Amer 62 Est GFR (MDRD) Non-Af 51 L BUN/Creatinine Ratio 25.2 H Glucose 94 Calcium 8.7 Total Bilirubin 1.80 H AST 10 L ALT 11 L Alkaline Phosphatase 54 Total Protein 7.2 Albumin 3.4 Globulin 3.8 Albumin/Globulin Ratio 0.9 Lipase 11 L Urine Color Yellow Urine Clarity Sl. Cloudy Urine pH 6.0 Ur Specific Mcloud 1.020 Urine Protein 15 H Urine Glucose (UA) Normal Urine Ketones 50 H Urine Occult Blood 150 H Urine Nitrite Positive H Urine Bilirubin Negative Urine Urobilinogen Normal Ur Leukocyte Esterase 25 H Urine RBC 0-5 SEEN Urine WBC 5-10 SEEN Ur Squamous Epith Cells 0 SEEN Urine Bacteria 1+ Urine Mucus 0 SEEN Radiography Diagnostic Testing: Clinical Impression(s) from Imaging Studies Abdomen/Pelvis CT 09/04/23 16:40 IMPRESSION: Suspect bladder outlet obstruction with mild left ureteral dilatation and hydronephrosis, likely from the prostatic enlargement.. Electronically Signed: Leroy Barrett MD at 17:36 EDT Reading Location ID and State: [id number] / [employer] , Service support , Chest X-Ray 09/04/23 16:52 IMPRESSION: No active disease. Electronically Signed: Leroy Barrett MD at 17:27 EDT , Management Discussion w/another healthcare provider: Hospitalist and Nurse Educator (Dr. Barth) Discharge Plan Triage Chief Complaint: Complaint ED Midlevel Provider: Robbi Hopkins ED Provider: Murray Morgan Dx/Rx/DC Orders Clinical Impression: SINGH (acute kidney injury), Episode of generalized weakness, UTI (urinary tract infection), Acute dehydration, Acute metabolic encephalopathy Primary Care Provider: Terry Mckeon
[2023-09-04 15:55] LABS: Mucous, Urine 0 SEEN /hpf (<or=2+); Squamous Epithelial Cells - UA 0 SEEN /hpf (0-5)
[2023-09-04 16:00] LABS: Color, Urine Yellow (Yellow); Glucose, Dipstick Normal (Normal); Ketone-Dipstick 50 mg/dl (Negative); Leukocyte Esterase-Dipstick 25 /ul (Negative); Nitrite-Dipstick Positive (Negative); Occult Blood-Urine 150 /ul (Negative); Protein-Dipstick 15 mg/dl (Negative); Urine Bilirubin Dipstick Negative (Negative); Urine Clarity Sl. Cloudy (Clear); Urine Urobilinogen Normal (Normal)
[2023-09-04 16:08] LABS: Bacteria 1+ /hpf (None Seen); Red Blood Cells-Urine 0-5 SEEN /hpf (0-5); White Blood Cells 5-10 SEEN /hpf (0-5)
[2023-09-04 16:34] LABS: Absolute Lymphocyte Count 1.47 X10^3/uL (0.83-4.51); Absolute Neutrophil Count 10.3 X10^3/uL (2.0-7.7); Basophil# 0.05 X10^3/uL; Basophil% 0.4 % (0-1); Eosinophil# 0.03 X10^3/uL; Eosinophils% 0.2 % (0-5); Hematocrit 35.7 % (40-54); Hemoglobin 11.3 g/dL (13.0-16.5); Lymphocyte # 1.47 X10^3/ul (0.83-4.51); Lymphocyte % 11.1 % (19-41); Mean Corp Hgb Conc 31.7 g/dL (32-36); Mean Corpuscular Hgb 29.4 pg (27.0-32.0); Mean Platelet Vol. 11.7 fl (6.2-12.0); Monocyte# 1.35 X10^3/uL; Monocyte% 10.2 % (0-10); NRBC Flagged by Analyzer 0 % (0-5); Neutrophil # 10.25 X10^3/uL (2.7-7.7); Neutrophil % 77.7 % (47-70); Platelet Count 208 K/mm3 (150-450); RBC Distribution Width CV 14.6 % (11.6-14.6); RBC Distribution Width SD 49.5 fl (35.1-43.9); Red Blood Count 3.84 M/mm3 (4.6-6.2); White Blood Count 13.2 K/mm3 (4.4-11.0)
[2023-09-04] MEDS: Ceftriaxone 1 GM/50 ML BAG IV (16:35)
[2023-09-04] MEDS: 0.9% Normal Saline (500mL Bag) 500 ML 999 ML IV (16:36)
--- NOTE | 2023-09-04 16:40 | CT_ITS ---
STUDY: CT ABDOMEN AND PELVIS WITHOUT CONTRAST REASON FOR EXAM: Male, 88 years old. Pain RADIATION DOSAGE (If Supplied By Facility): CTDIvol = ( 6.04 ) mGy, DLP = ( 294.46 ) mGycm TECHNIQUE: Transaxial images were obtained from the dome of the diaphragm to the symphysis pubis without oral contrast, and without intravenous contrast. Sagittal and coronal images were reconstructed. Individualized dose optimization techniques were used for this CT. COMPARISON: 04/07/2023 FINDINGS: The visualized lung bases are unremarkable. The visualized portions of the heart are within normal limits. Normal liver. There is non-visualization of the gallbladder, which may be secondary to either contraction or a prior cholecystectomy. Normal spleen. Normal pancreas. Normal bilateral adrenal glands. 6 cm exophytic cyst in the upper pole the right kidney. Mild left hydronephrosis and ureteral dilatation to the bladder but no obstructing stone. Normal visualized stomach. Normal small intestine. There are multiple colonic diverticula consistent with diverticulosis. There is non-visualization of the appendix. Normal abdominal aorta. Normal inferior vena cava. Normal retroperitoneum. Calcified mesenteric lymphadenopathy likely from prior granulomatous disease. Moderate bladder distention suggestive of bladder outlet obstruction. There is enlargement of the prostate gland. Normal abdominal wall. Mild dextroscoliosis of the lumbar spine with degenerative disc disease. CT/Abdomen/Pelvis without Cont IMPRESSION: Suspect bladder outlet obstruction with mild left ureteral dilatation and hydronephrosis, likely from the prostatic enlargement.. Electronically Signed: Leroy Barrett MD at 17:36 EDT ,
[2023-09-04 16:50] LABS: ALB/GLOB Ratio 0.9 RATIO (0.9-2.4); AST(SGOT) 10 U/L (15-37); Alanine Aminotransfer ALT/SGPT 11 U/L (16-61); Albumin, Serum 3.4 g/dL (3.2-5.0); Alkaline Phosphatase 54 U/L (45-117); Anion Gap 16 (5-15); BUN 35 mg/dL (7-18); BUN/Creat Ratio 25.2 RATIO (10-20); Calcium,Total 8.7 mg/dL (8.5-10.1); Chloride 101 mmol/L (98-107); Creatinine, Serum 1.39 mg/dL (0.70-1.30); EST Glomerular Filtration Rate 51 mL/min (>60); Est Glom Filt Rate - Afr Amer 62 mL/min (>60); Estimated Creatinine Clearance 27.02 ml/min; Globulin 3.8 g/dL (2.2-4.2); Glucose 94 mg/dL (74-106); Lipase 11 U/L (13-75); Potassium 4.2 mmol/L (3.5-5.1); Protein, Total 7.2 g/dL (6.4-8.2); Sodium Level 134 mmol/L (136-145)
--- NOTE | 2023-09-04 16:52 | RAD_ITS ---
STUDY: X-RAY CHEST REASON FOR EXAM: Male, 88 years old. cough TECHNIQUE: Single AP portable view of the chest. COMPARISON: 03/05/2022 FINDINGS: Left subclavian AICD which is unchanged. The lungs are clear and expanded. There is no demonstrated pleural abnormality. Normal size heart. Normal mediastinum and emely. Normal visualized pulmonary arteries. There is atherosclerotic tortuosity of the aortic arch and descending thoracic aorta. Normal visualized thoracic spine. Normal visualized ribs, clavicles, and shoulders. There is no demonstrated abnormality of the visualized soft tissue structures of the upper abdomen. RAD/Chest 1 View (Portable) IMPRESSION: No active disease. Electronically Signed: Leroy Barrett MD at 17:27 EDT ,
[2023-09-04 17:31] VITALS: BP 115/73; PULSE 67; RESP 14; O2SAT 97
--- NOTE | 2023-09-04 18:01 | NURSING ---
DR PRISCILLA PETER
--- NOTE | 2023-09-04 18:11 | NURSING ---
MED SURG OBS WELLS UTI, METABOLIC ENCEPHALOPATHY, URINARY RETENTION, SINGH
[2023-09-04 18:13] VITALS: BP 108/76; PULSE 82; RESP 14; TEMP 36.8; O2SAT 97
--- NOTE | 2023-09-04 18:20 | HP.PCM.HOS_ITS ---
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 In the ED white blood cell count 13.2, creatinine 1.39 up from baseline of 0.8?0.9, and UA suggestive of UTI. Patient started on fluids and Rocephin and CT abdomen pelvis obtained which demonstrated suspected bladder outlet obstruction with mild left ureteral dilation and hydronephrosis likely from pr ostatic enlargement. He was straight cathed x1 but given outlet obstruction Dr. Barth was consulted who recommended Rod catheter placement. Hospitalist contacted for admission due to patient's generalized weakness and confusion and inability to care for self at home in addition to his acute UTI and SINGH. Patient evaluated with family at bedside. Reportedly he had a stricture dilation 3 to 4 days ago and since then has been having some abdominal pain and has had difficulty urinating and only gets dribbles out. Was having small bowel movements every time he tried to urinate but took antidiarrhea medication and has not had a bowel movement in the past couple days but his abdominal pain was getting worse and he was not able to get much of any urine out. Today he was feeling generally ill, had worsened abdominal pain and was weak and somewhat confused and he was brought to the ED as above. Patient already feeling better after Rod placement and antibiotics. Denies fevers or chills at home, denies other complaints at this time. [facility] Medical History (Updated 09/04/23 @ 18:[address] Manisha Varela MD) Abnormal result of cardiovascular function study, unspecified Angina pectoris Atherosclerotic heart disease of [place] coronary artery without angina pectoris Benign prostatic hypertrophy Cancer Cardiology follow-up encounter Cardiomyopathy, ischemic Chest pain, precordial Chronic systolic congestive heart failure 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 Dyspnea Easy bruising Elevated troponin Essential hypertension Excessive bleeding Family history of CVA Family history of hypertension Fatigue FH: sudden cardiac (SCD) General weakness GERD (gastroesophageal reflux disease) High cholesterol High risk medication use History of CHF (congestive heart failure) History of echocardiogram History of placement of internal cardiac defibrillator History of stress test HLD (hyperlipidemia) HTN (hypertension) Hypokalemia Implantable cardioverter-defibrillator (ICD) at end of battery life Iron deficiency anemia Old myocardial infarction Orchitis of right testicle Otitis media Presence of stent in coronary artery (~12/28/18) Pure hypercholesterolemia SBO (small bowel obstruction) Sepsis Wears glasses Home Medications aspirin 81 mg chewable tablet 81 mg PO DAILY heart health 03/05/16 [History Last Taken 10/09/22] diphenhydramine 25 mg-acetaminophen 500 mg tablet (Tylenol PM Extra Strength) 2 tab PO QHS PRN Insomnia 10/22/17 [History Last Taken 12/27/18] nitroglycerin 0.4 mg sublingual tablet 0.4 mg sublingual Q5M PRN Chest Pain #25 tabs 02/17/22 [Rx Last Taken Unknown] finasteride 5 mg tablet 5 mg PO DAILY 03/05/22 [History Last Taken Unknown] tamsulosin 0.4 mg capsule 0.4 mg PO DAILY 03/05/22 [History Last Taken Unknown] furosemide 20 mg tablet 20 mg PO Q OTHER DAY 08/05/22 [History Last Taken Unknown] simvastatin 20 mg tablet See Rx Instructions .Route .COMPLEX #90 tabs 09/14/22 [Rx Last Taken Unknown] clopidogrel 75 mg tablet 75 mg PO DAILY #90 tabs 03/04/23 [Rx Last Taken Unknown] carvedilol 3.125 mg tablet 3.125 mg PO BID #180 tabs 06/17/23 [Rx Last Taken Unknown] sacubitril 49 mg-valsartan 51 mg tablet (Entresto) 1 tab PO BID #180 tabs 06/17/23 [Rx Last Taken Unknown] Allergy/AdvReac Type Severity Reaction Status Date / Time morphine Allergy Intermediate Rash Verified 09/04/23 15:20 zolpidem tartrate AdvReac Intermediate CONFUSION Verified 09/04/23 15:20 [From Ambien] Family History (Updated 07/09/23 @ 13:38 by Alexia Hendricks) Mother CAD (coronary artery disease) CVA (cerebral vascular accident) Myocardial infarction, Onset Age: 67 Hypertension Brother CAD (coronary artery disease) Hypertension Cancer Lung CA Myocardial infarction, Onset Age: 73 Father Myocardial infarction, Onset Age: 77 Daughter Cancer Son Myocardial infarction, Onset Age: 46 Other Cardiomyopathy, ischemic Chronic systolic congestive heart failure Fatigue General weakness Iron deficiency anemia Surgical History History of cardiac catheterization History of hernia repair History of left heart catheterization History of prostate surgery Hx of colonoscopy Hx of surgical procedure Presence of coronary artery bypass graft stent (~12/28/18) S/P TURP (status post transurethral resection of prostate) Social History household members: spouse Smoking Status: Never smoker alcohol intake: never substance use type: does not use caffeine: Yes Type: carbonated beverages and coffee Number of servings: 1 what type of physical activity do you participate in: none seatbelt use: always do you feel safe at home: Yes ROS ROS Narrative General: Denies fever/chills HENT: Denies headache, denies stuffy nose, denies sore throat EYES: Denies changes in vision Resp: Denies cough, denies shortness of breath Cardiac: Denies chest pain GI: Was having abdominal pain that is now resolved, has not had bowel movement in 2 days denies nausea/vomiting : Difficulty getting urine out Extremity: Denies swelling MSK: Generalized weakness Neuro: Denies any numbness/tingling Heme: Denies any bleeding or bruising Skin: Denies rashes Psychiatric: No complaints voiced Vital Signs Vital Signs Vital Signs: 09/04/23 15:20 09/04/23 17:31 09/04/23 18:13 Temperature 98.1 F 98.2 F Temperature Source Temporal Pulse Rate 95 67 82 Respiratory Rate 18 14 14 Blood Pressure 117/63 115/73 108/76 Blood Pressure Mean 81 87 86 Pulse Ox 98 97 97 Oxygen Delivery Method Room Air Room Air Weight Weight: 51.029 kg Body Mass Index (BMI) 19.9 Physical Exam Narrative General: Alert, oriented, no apparent distress HEENT: Atraumatic, normocephalic Eyes: Anicteric, normal conjunctiva, extraocular movements grossly intact Neck: Supple Respiratory: Clear to auscultation bilaterally, normal respiratory effort Cardiovascular: Regular rate and rhythm GI: Soft, nontender, nondistended Extremities: No edema Musculoskeletal: Moving all extremities Neuro: No overt focal neurological deficits Skin: No rashes appreciated Psych: Cooperative but was tearful at times Results Lab / Micro Data 09/04/23 16:15 09/04/23 16:15 Labs: Laboratory Results - last 24 hr 09/04/23 15:48: Urine Color Yellow, Urine Clarity Sl. Cloudy, Urine pH 6.0, Ur Specific [place] 1.020, Urine Protein 15 H, Urine Glucose (UA) Normal, Urine Ketones 50 H, Urine Occult Blood 150 H, Urine Nitrite Positive H, Urine Bilirubin Negative, Urine Urobilinogen Normal, Ur Leukocyte Esterase 25 H, Urine RBC 0-5 SEEN, Urine WBC 5-10 SEEN, Ur Squamous Epith Cells 0 SEEN, Urine Bacteria 1+, Urine Mucus 0 SEEN 09/04/23 16:15: WBC 13.2 H, RBC 3.84 L, Hgb 11.3 L, Hct 35.7 L, MCV 93.0, MCH 29.4, MCHC 31.7 L, RDW Std Deviation 49.5 H, RDW Coeff of [place] 14.6, Plt Count 208, MPV 11.7, Immature Gran % (Auto) 0.400, Neut % (Auto) 77.7 H, Lymph % (Auto) 11.1 L, [place] % (Auto) 10.2 H, Eos % (Auto) 0.2, Baso % (Auto) 0.4, Absolute Neuts (auto) 10.3 H, Absolute Lymphs (auto) 1.47, Nucleated RBC % 0, Sodium 134 L, Potassium 4.2, Chloride 101, Carbon Dioxide 17.0 L, Anion Gap 16 H , BUN 35 H, Creatinine 1.39 H, Estim Creat Clear Calc 27.02, Est GFR (MDRD) Af Amer 62, Est GFR (MDRD) Non-Af 51 L, BUN/Creatinine Ratio 25.2 H, Glucose 94, Calcium 8.7, Total Bilirubin 1.80 H, AST 10 L, ALT 11 L, Alkaline Phosphatase 54, Total Protein 7.2, Albumin 3.4, Globulin 3.8, Albumin/Globulin Ratio 0.9, Lipase 11 L Radiology Impression Abdomen/Pelvis CT 09/04/23 16:40 IMPRESSION: Suspect bladder outlet obstruction with mild left ureteral dilatation and hydronephrosis, likely from the prostatic enlargement.. Electronically Signed: Leroy Barrett MD at 17:36 EDT Reading Location ID and State: [id number] / [employer] Tel , Service support , Chest X-Ray 09/04/23 16:52 IMPRESSION: No active disease. Electronically Signed: Leroy Barrett MD at 17:27 EDT Reading Location ID and State: [id number] / [employer] Tel , Service support , Assessment & Plan Assessment/Plan (1) SINGH (acute kidney injury): (2) Atherosclerotic heart disease of [place] coronary artery without angina pectoris: QUALIFIERS: [place] vs. transplanted heart: [place] heart Qualified Code(s): I25.10 - Atherosclerotic heart disease of [place] coronary artery without angina pectoris; I25.10 - Atherosclerotic heart disease of [place] coronary artery without angina pectoris; I25.10 - Atherosclerotic heart disease of [place] coronary artery without angina pectoris (3) Cardiomyopathy, ischemic: (4) 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: (5) UTI (urinary tract infection): (6) Urinary retention: PLAN: Plan #Urinary tract infection and associated generalized weakness -UA suggestive of UTI, suspect this is secondary to urinary retention -Urine culture -Continue Rocephin -Rod catheter in place -Order PT/OT #Urinary retention with history of strictures and BPH -CT in ED demonstrated suspected bladder outlet obstruction with mild left ureteral dilation and hydronephrosis likely from prostatic enlargement. -Rod catheter placed -Treat underlying infection -Will need follow with urology, if patient continues rapid improvement can consider outpatient follow-up versus inpatient -We will continue finasteride and tamsulosin in the event patient will be able to have Rod catheter removed in the future #SINGH -Suspect in part obstructive -Baseline creatinine 0.8-0.9, presently 1.39 -We will give very gentle hydration given his history and hold his Lasix with daily weights and I's and O's -If not improving can get further urine studies #History of chronic heart failure with reduced ejection fraction with dual AICD -We will need to monitor fluid status closely -Daily weights, I's and O's -EF 11/08/2020 was 25% with wall motion abnormalities -Continue Coreg, unclear if patient is still taking Entresto, will need to be reevaluated once med list finalized #History of coronary artery disease with stenting -Continue aspirin, Plavix #DVT ppx: Heparin subcu Manisha Varela MD Charges/Coding Visit Charges Inpatient E&M: 92499 Init Hosp L2
[2023-09-04] MEDS: Acetaminophen 500 MG Tablet 1000 MG PO (19:38)
[2023-09-04 20:17] VITALS: BP 123/52; PULSE 83; RESP 16; TEMP 36.6; O2SAT 99; BMI 19.5
[2023-09-04] MEDS: 0.9% Normal Saline (1000mL) 1,000 ML 50 ML IV (20:36)
[2023-09-04 20:50] VITALS: O2SAT 98
[2023-09-04 22:57] VITALS: BP 102/47; PULSE 72; RESP 18; TEMP 37; O2SAT 96
[2023-09-04] MEDS: Pravastatin 20 MG Tablet PO (23:03)
[2023-09-04] MEDS: Acetaminophen 325 MG Tablet 650 MG PO (23:03)
[2023-09-04] MEDS: Heparin Injection (Vial) 5,000 UNIT/ML VIAL 5000 UNIT SC (23:03)
[2023-09-04] MEDS: MELATONIN 3 MG TABLET PO (23:03)
[2023-09-05 02:29] VITALS: BP 110/53; PULSE 62; RESP 18; TEMP 36.6; O2SAT 95
[2023-09-05 06:00] VITALS: BMI 19.2
[2023-09-05 08:29] LABS: Absolute Lymphocyte Count 1.75 X10^3/uL (0.83-4.51); Absolute Neutrophil Count 5.3 X10^3/uL (2.0-7.7); Basophil# 0.04 X10^3/uL; Basophil% 0.5 % (0-1); Eosinophil# 0.16 X10^3/uL; Eosinophils% 1.9 % (0-5); Hematocrit 32.7 % (40-54); Hemoglobin 10.3 g/dL (13.0-16.5); Lymphocyte # 1.75 X10^3/ul (0.83-4.51); Lymphocyte % 21.3 % (19-41); Mean Corp Hgb Conc 31.5 g/dL (32-36); Mean Corpuscular Hgb 29.4 pg (27.0-32.0); Mean Corpuscular Volume 93.4 fL (80-94); Mean Platelet Vol. 11.8 fl (6.2-12.0); Monocyte# 0.93 X10^3/uL; Monocyte% 11.3 % (0-10); NRBC Flagged by Analyzer 0 % (0-5); Neutrophil # 5.31 X10^3/uL (2.7-7.7); Neutrophil % 64.8 % (47-70); Platelet Count 183 K/mm3 (150-450); RBC Distribution Width CV 14.6 % (11.6-14.6); RBC Distribution Width SD 49.9 fl (35.1-43.9); White Blood Count 8.2 K/mm3 (4.4-11.0)
--- NOTE | 2023-09-05 09:00 | PN.HOSP_ITS ---
Subjective Subjective Doing well, feels better today. Objective Data Objective Data Vital Signs: Vital Signs Temp Pulse Resp BP Pulse Ox O2 Del Method 97.9 F 62 18 110/53 L 95 Room Air 09/05/23 02:29 09/05/23 02:29 09/05/23 02:29 09/05/23 02:29 09/05/23 02:29 09/05/23 02:29 Oxygen Delivery Method Room Air Weight: 108 lb 11.006 oz Body Mass Index (BMI) 19.2 Intake & Output: Intake and Output for Last 24 Hours 09/04/23 09/05/23 09/06/23 04:59 03:59 03:59 Intake Total Output Total 400 / 400 Balance -400 / -400 Lab / Micro Data 09/05/23 07:10 09/04/23 16:15 Labs: Laboratory Results - last 24 hr 09/04/23 15:48: Urine Color Yellow, Urine Clarity Sl. Cloudy, Urine pH 6.0, Ur Specific [place] 1.020, Urine Protein 15 H, Urine Glucose (UA) Normal, Urine Ketones 50 H, Urine Occult Blood 150 H, Urine Nitrite Positive H, Urine Bilirubin Negative, Urine Urobilinogen Normal, Ur Leukocyte Esterase 25 H, Urine RBC 0-5 SEEN, Urine WBC 5-10 SEEN, Ur Squamous Epith Cells 0 SEEN, Urine Bacteria 1+, Urine Mucus 0 SEEN 09/04/23 16:15: WBC 13.2 H, RBC 3.84 L, Hgb 11.3 L, Hct 35.7 L, MCV 93.0, MCH 29.4, MCHC 31.7 L, RDW Std Deviation 49.5 H, RDW Coeff of Arleen 14.6, Plt Count 208, MPV 11.7, Immature Gran % (Auto) 0.400, Neut % (Auto) 77.7 H, Lymph % (Auto) 11.1 L, [place] % (Auto) 10.2 H, Eos % (Auto) 0.2, Baso % (Auto) 0.4, Absolute Neuts (auto) 10.3 H, Absolute Lymphs (auto) 1.47, Nucleated RBC % 0, Sodium 134 L, Potassium 4.2, Chloride 101, Carbon Dioxide 17.0 L, Anion Gap 16 H , BUN 35 H, Creatinine 1.39 H, Estim Creat Clear Calc 27.02, Est GFR (MDRD) Af Amer 62, Est GFR (MDRD) Non-Af 51 L, BUN/Creatinine Ratio 25.2 H, Glucose 94, Calcium 8.7, Total Bilirubin 1.80 H, AST 10 L, ALT 11 L, Alkaline Phosphatase 54, Total Protein 7.2, Albumin 3.4, Globulin 3.8, Albumin/Globulin Ratio 0.9, Lipase 11 L 09/05/23 07:10: WBC 8.2, RBC 3.50 L, Hgb 10.3 L, Hct 32.7 L, MCV 93.4, MCH 29.4, MCHC 31.5 L, RDW Std Deviation 49.9 H, RDW Coeff of Arleen 14.6, Plt Count 183, MPV 11.8, Immature Gran % (Auto) 0.200, Neut % (Auto) 64.8, Lymph % (Auto) 21.3, [place] % (Auto) 11.3 H, Eos % (Auto) 1.9, Baso % (Auto) 0.5, Absolute Neuts (auto) 5.3, Absolute Lymphs (auto) 1.75, Nucleated RBC % 0 Radiography Diagnostic Testing: Radiology Impression Abdomen/Pelvis CT 09/04/23 16:40 IMPRESSION: Suspect bladder outlet obstruction with mild left ureteral dilatation and hydronephrosis, likely from the prostatic enlargement.. Electronically Signed: Leroy Barrett MD at 17:36 EDT Reading Location ID and State: [id number] / [employer] Tel , Service support , Chest X-Ray 09/04/23 16:52 IMPRESSION: No active disease. Electronically Signed: Leroy Barrett MD at 17:27 EDT , Physical Exam Narrative General: Alert, Oriented x3, Cooperative, No apparent distress HEENT: Atraumatic, PERRLA, EOMI, Normocephalic Oral: Moist Mucosa Neck: Supple, No JVD Lungs: Diminished, Normal air movement, No rhonchi, No wheeze, No rales Cardiovascular: Regular rate, Regular Rhythm, Normal S1, Normal S2, No murmurs Abdomen: Soft, Non Tender, Non-Distended, No Hepato-splenomegaly Extremities: No edema, Capillary Refill Less than 3 Seconds Skin: No rashes, No breakdown Musculoskeletal: No Tenderness to Palpation of Joints or Extremities Neurological: Cranial nerves II-XII grossly intact, Motor Exam 5/5 strength throughout, Sensory exam intact to light touch and pain Psych/Mental Status: Normal Affect, Appropriate Assessment & Plan Assessment/Plan (1) SINGH (acute kidney injury): (2) Atherosclerotic heart disease of [place] coronary artery without angina pectoris: QUALIFIERS: [place] vs. transplanted heart: [place] heart Qualified Code(s): I25.10 - Atherosclerotic heart disease of [place] coronary artery without angina pectoris; I25.10 - Atherosclerotic heart disease of [place] coronary artery without angina pectoris; I25.10 - Atherosclerotic heart disease of [place] coronary artery without angina pectoris (3) Cardiomyopathy, ischemic: (4) 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: (5) UTI (urinary tract infection): (6) Urinary retention: PLAN: Plan #Urinary tract infection and associated generalized weakness -UA suggestive of UTI, suspect this is secondary to urinary retention -Urine culture -Continue Rocephin -Rod catheter in place -Order PT/OT 09/05/2023: Awaiting urine culture data and sensitivities continue with antibiotics #Urinary retention with history of strictures and BPH -CT in ED demonstrated suspected bladder outlet obstruction with mild left ureteral dilation and hydronephrosis likely from prostatic enlargement. -Rod catheter placed -Treat underlying infection -Will need follow with urology, if patient continues rapid improvement can consider outpatient follow-up versus inpatient -We will continue finasteride and tamsulosin in the event patient will be able to have Rod catheter removed in the future #SINGH -Suspect in part obstructive -Baseline creatinine 0.8-0.9, presently 1.39 -We will give very gentle hydration given his history and hold his Lasix with daily weights and I's and O's -If not improving can get further urine studies 09/05/2023: Awaiting lab work for this morning if significant improvement, can decrease IV fluids assuming p.o. intake is good #History of chronic heart failure with reduced ejection fraction with dual AICD -We will need to monitor fluid status closely -Daily weights, I's and O's -EF 11/08/2020 was 25% with wall motion abnormalities -Continue Coreg, unclear if patient is still taking Entresto, will need to be reevaluated once med list finalized #History of coronary artery disease with stenting -Continue aspirin, Plavix DVT: Heparin Charges/Coding Visit Charges Inpatient E&M: 58902 Subs Hosp L2
[2023-09-05 09:23] LABS: Anion Gap 12 (5-15); BUN 28 mg/dL (7-18); BUN/Creat Ratio 28.1 RATIO (10-20); Calcium,Total 8.4 mg/dL (8.5-10.1); Chloride 106 mmol/L (98-107); EST Glomerular Filtration Rate 75 mL/min (>60); Est Glom Filt Rate - Afr Amer 91 mL/min (>60); Estimated Creatinine Clearance 36.29 ml/min; Glucose 64 mg/dL (74-106); Sodium Level 137 mmol/L (136-145)
[2023-09-05 09:30] VITALS: BP 114/48; PULSE 90; RESP 18; TEMP 36.7; O2SAT 96
[2023-09-05] MEDS: Clopidogrel Bisulfate 75 MG Tablet PO (10:27)
[2023-09-05] MEDS: Finasteride 5 MG Tablet PO (10:27)
[2023-09-05] MEDS: Heparin Injection (Vial) 5,000 UNIT/ML VIAL 5000 UNIT SC ×2 (10:28→21:40)
[2023-09-05] MEDS: Ceftriaxone 1 GM/50 ML BAG IV (10:28)
[2023-09-05] MEDS: Carvedilol 3.125 MG TABLET PO ×2 (10:28→17:43)
[2023-09-05] MEDS: Tamsulosin HCl 0.4 MG Capsule PO (10:28)
[2023-09-05] MEDS: Ensure Plus High Protein 120 ML LIQUID PO ×2 (10:28→17:43)
[2023-09-05] MEDS: Flu Vacc QS2023-24(65YR UP)/PF 240 MCG/0.7 ML Syringe IM (15:33)
[2023-09-05 16:13] VITALS: BP 115/53; PULSE 73; RESP 16; TEMP 36.8; O2SAT 98
[2023-09-05] MEDS: Pravastatin 20 MG Tablet PO (21:40)
[2023-09-05 22:00] VITALS: BP 101/51; PULSE 75; RESP 16; TEMP 37; O2SAT 97
[2023-09-05] MEDS: Acetaminophen 325 MG Tablet 650 MG PO (23:14)
[2023-09-05] MEDS: MELATONIN 3 MG TABLET PO (23:14)
[2023-09-06 04:00] VITALS: BP 118/57; PULSE 64; RESP 16; TEMP 36.4; O2SAT 97
[2023-09-06 06:00] VITALS: BMI 19.2
[2023-09-06 07:46] VITALS: BP 122/67; PULSE 70; RESP 18; TEMP 36.6; O2SAT 96
[2023-09-06] MEDS: Heparin Injection (Vial) 5,000 UNIT/ML VIAL 5000 UNIT SC (07:52)
[2023-09-06] MEDS: Ensure Plus High Protein 120 ML LIQUID PO (07:52)
[2023-09-06] MEDS: Carvedilol 3.125 MG TABLET PO (07:52)
[2023-09-06] MEDS: 0.9% Saline Lock 10 ML Syringe IV ×2 (07:53→09:45)
[2023-09-06] MEDS: Clopidogrel Bisulfate 75 MG Tablet PO (07:53)
[2023-09-06] MEDS: Finasteride 5 MG Tablet PO (07:53)
[2023-09-06] MEDS: Tamsulosin HCl 0.4 MG Capsule PO (07:53)
[2023-09-06] MEDS: 0.9% Normal Saline (250mL Bag) 250 ML 15 ML IV (09:36)
[2023-09-06] MEDS: Ceftriaxone 1 GM/50 ML BAG IV (09:36)
[2023-09-06] MEDS: Ondansetron 4 MG/2 ML Vial IV (09:45)
[2023-09-06 10:01] LABS: Anion Gap 7 (5-15); BUN 21 mg/dL (7-18); BUN/Creat Ratio 23.3 RATIO (10-20); Calcium,Total 8.2 mg/dL (8.5-10.1); Chloride 108 mmol/L (98-107); EST Glomerular Filtration Rate 84 mL/min (>60); Est Glom Filt Rate - Afr Amer 102 mL/min (>60); Estimated Creatinine Clearance 40.32 ml/min; Glucose 200 mg/dL (74-106); Potassium 3.3 mmol/L (3.5-5.1); Sodium Level 139 mmol/L (136-145)
[2023-09-06] MEDS: levoFLOXacin 750 MG Tablet PO (12:21)
[2023-09-06] MEDS: Potassium Chloride Oral Tablet 20 MEQ 40 MEQ PO (12:21)
[2023-09-06 14:09] VITALS: BP 139/74; PULSE 78; RESP 18; TEMP 36.3; O2SAT 95
--- NOTE | 2023-09-06 15:04 | DCINST_ITS ---
Discharge Instructions Diet Discharge Diet: - (-DASH diet, 3000 mg sodium restriction, 2 L fluid restriction) Activity Discharge Activity: - (Insert activity as tolerated) Follow Up Care Test Results: Test results from this visit will be discussed in further detail at your follow- up appointment, if applicable. Discharge Plan Admission Admit Date/Time: 09/04/23 18:20 Primary Reason for Your Visit: Abdominal pain, generalized weakness Attending Provider: Manisha Varela Primary Care Provider: Terry Mckeon Consulting Providers: Manisha Varela; Natanael Nowak Instructions Patient Instructions: ED Puente Catheter, Care Additional Instructions / Restrictions: DISCHARGE INSTRUCTIONS PLEASE READ *Please take this with you to your next doctors appointment* -You will be discharged on antibiotics for urinary tract infection, he will take Levaquin every other day for total of 7 days. Your first dose was 09/06 so your next dose will be 09/08 -You will be discharged with a puente catheter. Please follow-up with urology upon discharge. Please call their office to schedule hospital follow-up appointment upon discharge. -Please call your primary care provider's office upon discharge to schedule a hospital follow up within 1 week. -For any concerning signs or symptoms please call 911 or proceed to the nearest emergency department Discharge Orders/Prescriptions Prescriptions: New levofloxacin 750 mg Tablet 750 mg PO Q48H 7 Days Qty: 3 0RF Rx Instructions: Took 09/06 dose in hospital. Next dose 09/08 Continued furosemide 20 mg tablet 20 mg PO Q OTHER DAY tamsulosin 0.4 mg capsule 0.4 mg PO DAILY finasteride 5 mg tablet 5 mg PO DAILY Patient Comments: TAKE 1 TABLET BY MOUTH ONCE DAILY aspirin 81 MG tablet,chewable 81 mg PO DAILY Hold Instructions: Resume on 11/06/22. nitroglycerin 0.4 mg tablet, sublingual 0.4 mg SUBLINGUAL Q5M PRN (Reason: Chest Pain) Qty: 25 3RF simvastatin 20 mg tablet See Rx Instructions .ROUTE .COMPLEX Qty: 90 3RF Dose Instruction: TAKE 1 TABLET BY MOUTH AT BEDTIME FOR CHOLESTEROL Rx Instructions: TAKE 1 TABLET BY MOUTH AT BEDTIME FOR CHOLESTEROL clopidogrel 75 mg tablet 75 mg PO DAILY Qty: 90 3RF Hold Instructions: Resume on 11/06/22. Rx Instructions: prevent clotting carvedilol 3.125 mg tablet 3.125 mg PO BID Qty: 180 3RF Rx Instructions: must administer with a meal/food Entresto 49-51 mg tablet 1 tab PO BID Qty: 180 3RF Discontinued diphenhydramine-acetaminophen [Tylenol PM Extra Strength] 25-500 mg tablet 2 tab PO QHS PRN (Reason: Insomnia) Referrals / Follow Up: Faisal Barth MD [Med Staff - Active Staff] - ( -Please follow-up with urology upon discharge. Please call their office to schedule hospital follow-up appointment upon discharge.) Terry Mckeon DO [Primary Care Provider] - Within 1 Week Disposition Disposition (needs filled in before D/C Order can be placed): Home, Self Care
--- NOTE | 2023-09-06 15:13 | DS.PCM_ITS ---
Providers Date of Admission: 09/04/23 Date of Discharge: 09/06/23 Primary Care Physician: Dr. 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: Status: Chronic Code(s): Z95.810 - Presence of automatic (implantable) cardiac defibrillator (5) UTI (urinary tract infection): Status: Acute Code(s): N39.0 - Urinary tract infection, site not specified (6) Urinary retention: Status: Acute Code(s): R33.9 - Retention of urine, unspecified Plan #Urinary tract infection 2/2 staph lugdunensis and associated generalized weakness #Urinary retention with history of strictures and BPH s/p puente placement #SINGH, suspect obstructive, resolved #History of chronic heart failure with reduced ejection fraction with dual AICD #History of coronary artery disease with stenting Medications at Discharge Home Medications aspirin 81 mg chewable tablet 81 mg PO DAILY [facility] 03/05/16 nitroglycerin 0.4 mg sublingual tablet 0.4 mg sublingual Q5M PRN Chest Pain #25 tabs 02/17/22 finasteride 5 mg tablet 5 mg PO DAILY 03/05/22 tamsulosin 0.4 mg capsule 0.4 mg PO DAILY 03/05/22 furosemide 20 mg tablet 20 mg PO Q OTHER DAY 08/05/22 simvastatin 20 mg tablet See Rx Instructions .Route .COMPLEX #90 tabs 09/14/22 clopidogrel 75 mg tablet 75 mg PO DAILY #90 tabs 03/04/23 carvedilol 3.125 mg tablet 3.125 mg PO BID #180 tabs 06/17/23 sacubitril 49 mg-valsartan 51 mg tablet (Entresto) 1 tab PO BID #180 tabs 06/17/23 levofloxacin 750 mg tablet 750 mg PO Q48H 7 days #3 tabs 09/06/23 Hospital Course Summary of Care Provided Minutes Spent on Discharge: 32 Hospital Course: JORGE GUZMÁN, is a 88-year-old male history of coronary artery disease, heart failure with reduced ejection fraction with dual AICD, BPH, hypertension presented to [facility] 09/04/2023 with generalized weakness. 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 In the ED white blood cell count 13.2, creatinine 1.39 up from baseline of 0.8?0.9, and UA suggestive of UTI. Patient started on fluids and Rocephin and CT abdomen pelvis obtained which demonstrated suspected bladder outlet obstruction with mild left ureteral dilation and hydronephrosis likely from prostatic enlargement. He was straight cathed x1 but given outlet obstruction Dr. Barth was consulted who recommended Puente catheter placement. Hospitalist contacted for admission due to patient's generalized weakness and confusion and inability to care for self at home in addition to his acute UTI and SINGH. Patient improved after Puente placement and with antibiotics, urine culture grew staph species and antibiotics adjusted, SINGH resolved relieving obstruction. Patient doing well, feels he is back to his prior level of functioning. Patient will be discharged on antibiotics for UTI and Puente catheter with instructions to follow-up with Tab. Physical Exam Narrative General: Alert, oriented, no apparent distress HEENT: Atraumatic, normocephalic Eyes: Anicteric, normal conjunctiva, extraocular movements grossly intact Neck: Supple Respiratory: Clear to auscultation bilaterally, normal respiratory effort Cardiovascular: Regular rate GI: Soft, nontender, nondistended Extremities: No edema Musculoskeletal: Moving all extremities Neuro: No overt focal neurological deficits Skin: No rashes appreciated Psych: Cooperative Weight / BMI Weight Weight: 49.3 kg Body Mass Index (BMI) 19.2 ABG / Lab / Microbiology Data 09/05/23 07:10 09/06/23 09:25 Laboratory: Laboratory Results - last 24 hr 09/06/23 09:25: Sodium 139, Potassium 3.3 L, Chloride 108 H, Carbon Dioxide 24.0, Anion Gap 7, BUN 21 H, Creatinine 0.90, Estim Creat Clear Calc 40.32, Est GFR (MDRD) Af Amer 102, Est GFR (MDRD) Non-Af 84, BUN/Creatinine Ratio 23.3 H, Glucose 200 H, Calcium 8.2 L Microbiology: Microbiology 09/04/23 15:48 Urine, Random Urine Culture - Final Staphylococcus lugdunensis D/C Instructions Discharge Diet: - (-DASH diet, 3000 mg sodium restriction, 2 L fluid restriction) Meaningful Use Info Meaningful Use Diagnoses (Choose all that apply): None applicable Discharge Plan Admission Admit Date/Time: 09/04/23 18:20 Primary Reason for Your Visit: Abdominal pain, generalized weakness Attending Provider: Manisha Varela Primary Care Provider: Terry Mckeon Consulting Providers: Manisha Varela; Natanael Nowak Instructions Patient Instructions: ED Puente Catheter, Care Additional Instructions / Restrictions: DISCHARGE INSTRUCTIONS PLEASE READ *Please take this with you to your next doctors appointment* -You will be discharged on antibiotics for urinary tract infection, he will take Levaquin every other day for total of 7 days. Your first dose was 09/06 so your next dose will be 09/08 -You will be discharged with a puente catheter. Please follow-up with urology upon discharge. Please call their office to schedule hospital follow-up ap pointment upon discharge. -Please call your primary care provider's office upon discharge to schedule a hospital follow up within 1 week. -For any concerning signs or symptoms please call 911 or proceed to the nearest emergency department Discharge Orders/Prescriptions Prescriptions: New levofloxacin 750 mg Tablet 750 mg PO Q48H 7 Days Qty: 3 0RF Rx Instructions: Took 09/06 dose in hospital. Next dose 09/08 Continued furosemide 20 mg tablet 20 mg PO Q OTHER DAY tamsulosin 0.4 mg capsule 0.4 mg PO DAILY finasteride 5 mg tablet 5 mg PO DAILY Patient Comments: TAKE 1 TABLET BY MOUTH ONCE DAILY aspirin 81 MG tablet,chewable 81 mg PO DAILY Hold Instructions: Resume on 11/06/22. nitroglycerin 0.4 mg tablet, sublingual 0.4 mg SUBLINGUAL Q5M PRN (Reason: Chest Pain) Qty: 25 3RF simvastatin 20 mg tablet See Rx Instructions .ROUTE .COMPLEX Qty: 90 3RF Dose Instruction: TAKE 1 TABLET BY MOUTH AT BEDTIME FOR CHOLESTEROL Rx Instructions: TAKE 1 TABLET BY MOUTH AT BEDTIME FOR CHOLESTEROL clopidogrel 75 mg tablet 75 mg PO DAILY Qty: 90 3RF Hold Instructions: Resume on 11/06/22. Rx Instructions: prevent clotting carvedilol 3.125 mg tablet 3.125 mg PO BID Qty: 180 3RF Rx Instructions: must administer with a meal/food Entresto 49-51 mg tablet 1 tab PO BID Qty: 180 3RF Discontinued diphenhydramine-acetaminophen [Tylenol PM Extra Strength] 25-500 mg tablet 2 tab PO QHS PRN (Reason: Insomnia) Referrals / Follow Up: Faisal Barth MD [Med Staff - Active Staff] - ( -Please follow-up with urology upon discharge. Please call their office to schedule hospital follow-up appointment upon discharge.) Terry Mckeon DO [Primary Care Provider] - Within 1 Week Disposition Disposition (needs filled in before D/C Order can be placed): Home, Self Care Charges/Coding Visit Charges Inpatient E&M: 82231 Disch Hosp >30min
--- NOTE | 2023-09-06 15:30 | CASEMGMT ---
TERESITA SUAREZ Assessment: Face to Face with pt for initial transition planning/care coordination assessment. TERESITA SUAREZ introduced self and role at [facility], pt voices understanding and consents to assessment. Pt's daughter enter's room near the end of the assessment and pt, gives permission for TERESITA SUAREZ to continue with assessment. Pt is A&O x4 and answers all questions appropriately at this time. Care providers, pharmacy, and demographics verified/updated. Admitting Dx: UTI, SINGH, General Weakness PCP: Linda Specialists: [facility] (Cardiology), [facility] (Urologist), Eladia Milian (Dermatology) Preferred Pharmacy: [facility] ([facility]) Insurance: [employer] [facility] Prescription Benefit: yes LNOK:Nancy Lomas () Living Will/HCPOA: No and No. Pt. declines to receive information on ADs. Pt. is aware this is a free service offered through [facility] if desired. Living Arrangements: Pt lives with his in a 1 story, FFSU, no steps to enter. prior to this admission pt. states he was doing well ambulating. He states he is I in all ADLs and IADLs. Transportation: Self and daughter DME: Shower chair, raised toilet seat, grab bars, pulse ox. Pt. declines to receive information on medical alert systems. Pt. denies need for additional DME at this time. HHC/SNF: Denies previous HHC or SNF. Pt states he would like to D/C home with HHC for SN for catheter care. Pt states no further concerns/needs. CM to follow. Advised pt to ask CM if any further question/concerns/needs arise, voices understanding. Pt Goal: Home with HHC. Plan: Home with HHC and family support in place. Pt.'s daughter states she will be staying with pt. for the next week or so.
--- NOTE | 2023-09-06 15:51 | CASEMGMT ---
Met with Pt. to complete CRAWFORD form. CRAWFORD form explained to pt. who voiced understanding and signed form. Original form placed in pt?s chart and copy provided to pt.
--- NOTE | 2023-09-06 17:00 | CASEMGMT ---
Pt. has an order for D/C. TERESITA SUAREZ in to pt. room to discuss needs at discharge. TERESITA SUAREZ provided a list of [facility] providers including quality and resource use data and consistent with the patient?s preferred geographic region, medical needs, and insurance network were provided from the [employer] Guide. Patient's fransisca 3 choices are as follows: (1) [facility], (2) [facility], and (3) [facility]. TERESITA SUAREZ informed pt. that we will send out these referrals and follow-up with pt. Pt. voices understanding of this and denies having any additional questions or concerns relating to his discharge.
--- NOTE | 2023-09-07 09:57 | CASEMGMT ---
Discharge Planning Referral via [facility] to Pete DOMINGO, [facility], and Yareli. Alexia Graham, Discharge Planning Asst.
--- NOTE | 2023-09-07 10:49 | CASEMGMT ---
Discharge Planning Patient has been accepted by Pete DOMINGO. RN CM and patients daughter updated. Alexia Graham, Discharge Planning Asst.
== END 2023-09-06 17:06 | disposition home health service (06) ==
LOC: ED 17:56 → MS3 18:21
PROVIDERS: Nurse Practitioner; Admitting Provider Internal Medicine; Emergency Provider Emergency Medicine; PCP Family Medicine; Visit Provider Internal Medicine
DX: N39.0 Urinary tract infection, site not specified (principal); N17.9 Acute kidney failure, unspecified; I50.22 Chronic systolic (congestive) heart failure; I11.0 Hypertensive heart disease with heart failure; Z95.810 Presence of automatic (implantable) cardiac defibrillator; E78.00 Pure hypercholesterolemia, unspecified; I25.10 Atherosclerotic heart disease of native coronary artery without angina pectoris; N40.1 Benign prostatic hyperplasia with lower urinary tract symptoms; I25.5 Ischemic cardiomyopathy; Z79.82 Long term (current) use of aspirin; E86.0 Dehydration; Z79.02 Long term (current) use of antithrombotics/antiplatelets; N13.30 Unspecified hydronephrosis; G93.41 Metabolic encephalopathy; N35.919 Unspecified urethral stricture, male, unspecified site; R33.8 Other retention of urine; I25.2 Old myocardial infarction; N32.0 Bladder-neck obstruction; Z79.899 Other long term (current) drug therapy; R32 Unspecified urinary incontinence; B95.7 Other staphylococcus as the cause of diseases classified elsewhere; Z23 Encounter for immunization
CPT/HCPCS: 36415; 51702; 71045; 74176; 80048; 80053; 81001; 83690; 85025; 87077; 87086; 87088; 87186; 94668; 96365; 96366; 96372; 96375; 97802; 99221; 99285; G0008; J7030; J7040; J7050; 90662; A4216; G0378; J2405

== ENCOUNTER → 2023-09-15 | Outpatient (CLI) | payer MEDICARE, SELFPAY ==
[2018-12-28 14:17] VITALS: BMI 22.3
== END | disposition home or self-care (01) ==
LOC: LABSPEC 11:07
PROVIDERS: PCP Family Medicine; Visit Provider Family Medicine
DX: N39.0 Urinary tract infection, site not specified (principal)
CPT/HCPCS: 87086; 87088

== ENCOUNTER → 2023-10-12 | Outpatient (CLI) | payer MEDICARE, SELFPAY ==
[2018-12-28 14:17] VITALS: BMI 22.3
[2023-10-12 15:03] LABS: Prothrombin Time (Protime)PT. 12.9 SECONDS (11.7-14.9)
[2023-10-12 15:04] LABS: Partial Thromboplast Time 28.7 Seconds (24.1-36.2)
== END | disposition home or self-care (01) ==
LOC: LAB 13:28
PROVIDERS: PCP Family Medicine; Referring Provider Anesthesiology; Visit Provider Anesthesiology
DX: Z01.818 Encounter for other preprocedural examination (principal)
CPT/HCPCS: 36415; 85610; 85730

== ENCOUNTER 2023-10-20 13:11 | Observation (INO) | payer MEDICARE, SELFPAY ==
[2018-12-28 14:17] VITALS: BMI 22.3
--- NOTE | 2023-10-12 13:44 | EKG12_ITS ---
Test Reason : PRE-OP Blood Pressure : / mmHG Vent. Rate : 060 BPM Atrial Rate : 060 BPM P-R Int : 192 ms QRS Dur : 104 ms QT Int : 420 ms P-R-T Axes : -08 -26 069 degrees QTc Int : 420 ms Sinus rhythm with Premature atrial complexes Otherwise normal ECG Confirmed by AYAKA PASCUAL, BARR[place] ([id number]), graphic editor GIRMA GREGG ([id number]) on 10/18/2023 7:00:05 AM Referred By: Faisal Barth Confirmed By:KATERYNA MARLEY MD
[2023-10-20] VITALS (12 sets, daily range): BP systolic 92–141; BP diastolic 42–71; PULSE 55–70; RESP 16–20; TEMP 36.2–37.1; O2SAT 93–100; BMI 20.7
--- OUTSIDE RECORDS SUMMARY | 2023-10-20 11:52 | XMS RPT_ITS | CCD ---
Author Name Unknown Address [address] [place] [address] Organization [facility] Care Team Providers Care Manager Digital Name Role Phone TERESITA Grubbs, Elsy Denis Unavailable Unavailable TERESITA Grubbs, Elsy Denis Unavailable Unavailable Yaritza Gibson Primary Care Provider Pcp, No Primary Care Provider Unavaildante e Merrill Ross Primary Care Provider Terry Cleveland Primary Care Provider TERESITA Grubbs, Elsy Denis Unavailable Unavailable TERESITA Grubbs, Elsy Denis Unavailable Unavailable TERESITA Grubbs, Elsy Denis Unavailable Unavailable Viveros, Leonora M Unavailable Unavailable Viveros, Leonora M Unavailable Unavailable Maureen Forman Unavailable Unavailable Maureen Forman Unavailable Unavailable Malika LO, Abril Palomo Unavailable Robbi Abbott MD Unavailable Abril Daly RN Unavailable TERESITA Grubbs, Elsy Denis Unavailable Unavailable TERESITA Grubbs, Elsy Denis Unavailable Unavailable TERESITA Grubbs, Elsy Denis Unavailable Unavailable TERESITA Thomas, Adelaida Denis Unavailable Unavaildante brown Allergies Allergy Classification Reported Allergen(s) Allergy Type Date of Onset Reaction(s) Facility Opioid Agonists (1 source) Morphine Drug Allergy 03-06-[address] [facility] Medications Completed/Discontinued Medications Medication Drug Class(es) Dates Sig (Normalized) Sig (Original) Acetaminophen (1 source) Start: 06-19-2005 take 1 tablet by mouth at bedtime TYLENOL PM 25 MG-500 MG ORAL TAB TAKE ONE TAB AT BEDTIME 0 06/19/2005 Active Problems Active Problems Problem Classification Problem Date Documented Da te Episodic/Chronic Acute myocardial infarction ([address] elevation (STEMI) myocardial infarction involving other coronary artery of anterior wall; Translations: [Acute myocardial infarction of other anterior wall, subsequent episode of care] Onset: 01-13-2011 Resolved: 04-06-2016 01-13-2011 Chronic Congestive heart failure; nonhypertensive (20 sources) Congestive heart failure; Translations: [Left heart failure] Onset: 01-13-2011 10-08-2016 Chronic Coronary atherosclerosis and other heart disease (20 sources) Coronary atherosclerosis; Translations: [Angina pectoris] Onset: 01-13-2011 10-08-2016 Chronic Diseases of white blood cells (1 source) White blood cell disorder; 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, unspecified] Onset: 03-06-2009 03-06-2009 Chronic Disorders of lipid metabolism (17 sources) Hyperlipidemia; Translations: [Hyperlipidemia, unspecified] Onset: 01-13-2011 01-13-2011 Chronic Diverticulosis and diverticulitis (1 source) Diverticulitis of large intestine; Translations: [Diverticulitis of large intestine without perforation or abscess without bleeding] Onset: 06-03-2016 06-03-2016 Chronic Esophageal disorders (2 sources) Ulcer of esophagus; Translations: [Ulcer of esophagus without bleeding] Onset: 06-12-2010 06-12-2010 Chronic Essential hypertension (17 sources) Hypertensive disorder; Translations: [Essential (primary) hypertension] Onset: 01-13-2011 01-13-2011 Chronic Hyperplasia of prostate (1 source) Benign prostatic hypertrophy without outflow obstruction; Translations: [Benign prostatic hyperplasia without lower urinary tract symptoms] Onset: 06-17-2007 11-11-2015 Chronic Other gastrointestinal disorders (1 source) Abdominal mass; Translations: [Other specified diseases of intestine] 03-07-2013 Episodic Other inflammatory condition of skin (1 source) Pruritus of skin; Translations: [Pruritus, unspecified] 08-23-2014 Episodic Unclassified (2 sources) Implantation of automatic cardiac defibrillator ; Translations: [Presence of automatic (implantable) cardiac defibrillator] Onset: 01-13-2011 01-13-2011 Unclassified (2 sources) Long-term drug therapy; Translations: [Other [place] (current) drug therapy] Onset: 01-13-2011 01-13-2011 Past or Other Problems Problem Classification Problem Date Documented Da te Episodic/Chronic Abdominal hernia (1 source) Diaphragmatic hernia; Translations: [Diaphragmatic hernia without obstruction or gangrene] Onset: 04-04-2012 04-04-2012 Episodic Coronary atherosclerosis and other heart disease (2 sources) History of myocardial infarction; Translations: [Old myocardial infarction] Onset: 01-13-2011 01-13-2011 Episodic Deficiency and other anemia (17 sources) Iron deficiency anemia; Translations: [Iron deficiency anemia, unspecified] Onset: 01-13-2011 01-13-2011 Episodic Esophageal disorders (1 source) Esophagitis; Translations: [Esophagitis, unspecified] Onset: 06-12-2010 06-12-2010 Episodic Fluid and electrolyte disorders (17 sources) Hypokalemia; Translations: [Hypokalemia] Onset: 11-15-2014 11-15-2014 Episodic Genitourinary symptoms and ill-defined conditions (1 source) Incomplete emptying of bladder; Translations: [Retention of urine, unspecified] Onset: 06-17-2007 06-17-2007 Episodic Malaise and fatigue (20 sources) Fatigue; Translations: [Other fatigue] Onset: 08-10-2012 11-14-2014 Episodic Nonspecific chest pain (17 sources) Precordial pain; Translations: [Precordial pain] Onset: 01-13-2011 01-13-2011 Episodic Other aftercare (15 sources) Long-term drug therapy; Translations: [Other remote computer terminal operator (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) drug therapy] Onset: 01-13-2011 01-13-2011 Episodic Other and unspecified benign neoplasm (1 source) History of polyp of colon; Translations: [Personal history of colonic polyps] Onset: 05-10-2012 05-10-2012 Episodic Other gastrointestinal disorders (1 source) Finding of abdomen; Translations: [Intra-abdominal and pelvic swelling, mass and lump, unspecified site] Onset: 06-20-2005 06-20-2005 Episodic Other lower respiratory disease (17 sources) Dyspnea; Translations: [Shortness of breath] Onset: 08-10-2012 08-10-2012 Episodic Other screening for suspected conditions (not mental disorders or infectious disease) (18 sources) Abnormal result of cardiovascular function study, unspecified; Translations: [Raised prostate specific antigen] Onset: 05-21-2008 01-13-2011 Episodic Residual codes; unclassified (20 sources) Body mass index (BMI) 23.0-23.9, adult; Translations: [FH: Hypertension] Onset: 04-12-2017 04-12-2017 Episodic Residual codes; unclassified (15 sources) Family history of sudden ; Translations: [Family history of other specified conditions] 09-09-2015 Episodic Residual codes; unclassified (15 sources) FH: Hypertension; Translations: [Family history of ischemic heart disease and other diseases of the circulatory system] 09-03-2014 Episodic Residual codes; unclassified (15 sources) Family history of stroke; Translations: [Family history of stroke] 09-03-2014 Episodic Results Test Name Value Interpretation Reference Range Facil ity Vital Signs Date Time Vital Sign Value Performing Clinician Bandar ford 05-24-2017 11:35-0400 Body height 160.02 cm Maureen Dasia [facility] Work Phone: 05-24-2017 11:35-0400 Body mass index (BMI) [Ratio] 23.82 kg/m2 [employer] Dasia [facility] Work Phone: 05-24-2017 11:35-0400 Body weight 61.01 kg Maureen Forman [facility] Work Phone: 05-24-2017 11:35-0400 Diastolic blood pressure 58 mm[Hg] Brunoradha Dasia [facility] [employer] Work Phone: 05-24-2017 11:35-0400 Heart rate 54 /min [employer] Forman [facility] Work Phone: 05-24-2017 11:35-0400 Respiratory rate 20 /min [employer]urt Forman [facility] Work Phone: 05-24-2017 11:35-0400 Systolic blood pressure 116 mm[Hg] [employer]ut Forman [facility] Work Phone: 05-24-2017 11:35-0400 Weight 61.01 kg Elsy Grubbs RN [facility] Work Phone: 04-12-2017 13:39-0400 Body height 160.02 cm [employer] Work Phone: 04-12-2017 13:39-0400 Body mass index (BMI) [Ratio] 23.45 kg/m2 [employer] Work Phone: 04-12-2017 13:39-0400 Body weight 60.06 kg Leonora Felice [facility] Work Phone: 04-12-2017 13:39-0400 Diastolic blood pressure 50 mm[Hg] [employer] Work Phone: 04-12-2017 13:39-0400 Heart rate 52 /min [employer] Work Phone: 04-12-2017 13:39-0400 Respiratory rate 16 /min [employer] [facility] Work Phone: 04-12-2017 13:39-0400 Systolic blood pressure 110 mm[Hg] [employer] Work Phone: 04-12-2017 13:39-0400 Weight 60.06 kg TERESITA [facility] Work Phone: 10-09-2016 12:49-0500 Body mass index (BMI) [Ratio] 24.05 kg/m2 Elsy Grubbs RN [facility] Work Phone: 10-09-2016 12:49-0500 Body surface area Derived from formula 1.64 m2 Elsy Grubbs RN [facility] Work Phone: 10-09-2016 12:49-0500 Body weight 61.6 kg TERESITA [facility] Work Phone: 10-09-2016 12:49-0500 Diastolic blood pressure 72 mm[Hg] ETRESITA [facility] Work Phone: 10-09-2016 12:49-0500 Heart rate 60 /min TERESITA [facility] Work Phone: 10-09-2016 12:49-0500 Respiratory rate 16 /min TERESITA [facility] Work Phone: 10-09-2016 12:49-0500 Systolic blood pressure 124 mm[Hg] TERESITA [facility] Work Phone: 11-14-2014 15:17-0500 Diastolic blood pressure 60 mm[Hg] Elsy Grubbs RN [facility] Work Phone: 11-14-2014 15:17-0500 Heart rate 60 /min Elsy Grubbs RN [facility] Work Phone: 11-14-2014 15:17-0500 Heart rate 64 /min Elsy Grubbs RN [facility] Work Phone: 11-14-2014 15:17-0500 Systolic blood pressure 98 mm[Hg] Elsy Grubbs RN [facility] Work Phone: 11-14-2014 15:17-0500 Systolic blood pressure 100 mm[Hg] Elsy Grubbs RN [facility] Work Phone: 08-10-2012 12:42-0400 SaO2% (BldA) [Mass fraction] 99 % Elsy Grubbs RN [facility] Work Phone: 05-02-2012 14:57-0400 Body height 160.02 cm Elsy Grubbs RN [facility] Work Phone: 08-04-2010 11:15-0400 Body temperature 98.4 [degF] Elsy Grubbs RN [facility] Work Phone: Encounters Encounter Date Encounter Type Care Provider Facility Start: 10-18-2011 End: 10-18-2011 REFILL - TIMMYT Marino Roque Work Phone: Gastroenterology Procedures Date Procedure Procedure Detail Performing Clinician Start: 09-27-2017 End: 09-28-2017 Prgrmg eval implantable in prsn dual lead dfb Robbi Abbott MD Start: 09-27-2017 End: 10-13-2017 Follow Up Appt 3 months Robbi Abbott MD Start: 09-27-2017 End: 10-13-2017 Pac[facility] Clinic Robbi Abbott MD Start: 09-27-2017 End: 09-28-2017 Prgrmg eval implantable in prsn dual lead dfb Robbi Abbott MD Start: 06-28-2017 End: 06-28-2017 Prgrmg eval implantable in prsn dual lead dfb Robbi Abbott MD Start: 06-28-2017 End: 10-13-2017 Follow Up Appt 3 months Robbi Abbott MD Start: 06-28-2017 End: 10-13-2017 Pacer Clinic Robbi Abbott MD Start: 06-28-2017 End: 06-28-2017 Prgrmg eval implantable in prsn dual lead dfb Robbi Abbott MD Start: 05-24-2017 End: 05-24-2017 Follow Up Appt Kaden Abbott MD Start: 05-24-2017 End: 05-24-2017 JOE Abbott MD Start: 05-24-2017 End: 06-09-2017 Nuclear stress test -Bin Abbott MD Start: 05-24-2017 End: 05-24-2017 VONNIE Abbott MD Start: 05-24-2017 End: 05-24-2017 Documentation of current medications Maureen Forman Start: 05-24-2017 End: 05-24-2017 Follow Up Appt Kaden Abbott MD Start: 05-24-2017 End: 05-24-2017 JOE Abbott MD Start: 05-24-2017 End: 06-09-2017 Nuclear stress test -Bin Abbott MD Start: 05-24-2017 End: 05-24-2017 PFAdeel Abbott MD Start: 04-12-2017 End: 04-12-2017 Documentation of current medications Leonora Viveros Start: 04-12-2017 End: 10-13-2017 Follow Up Appt 6 months Robbi Abbott MD Start: 04-12-2017 End: 10-13-2017 Follow Up Appt Other Robbi Abbott MD Start: 04-12-2017 End: 10-13-2017 MMM Robbi Abbott MD Start: 03-22-2017 End: 03-23-2017 Prgrmg eval implantable in prsn dual lead dfb Robbi Abbott MD Start: 03-22-2017 End: 10-13-2017 Follow Up Appt 3 months Robbi Abbott MD Start: 03-22-2017 End: 10-13-2017 Pacer Clinic Robbi Abbott MD Start: 03-22-2017 End: 03-23-2017 Prgrmg eval implantable in prsn dual lead dfb Robbi Abbott MD Start: 12-17-2016 End: 12-17-2016 Prgrmg eval implantable in prsn dual lead dfb Robbi Abbott MD Start: 12-17-2016 End: 10-13-2017 Follow Up Appt 3 months Robbi Abbott MD Start: 12-17-2016 End: 10-13-2017 Pacer Clinic Robbi Abbott MD Start: 12-17-2016 End: 12-17-2016 Prgrmg eval implantable in prsn dual lead dfb Robbi Abbott MD Start: 10-09-2016 End: 10-12-2016 *BMP Abril Dupree PA-C Work Phone: Start: 10-09-2016 End: 10-09-2016 *CBC with Differential Abril Dupree PA-C Work Phone: Start: 10-09-2016 End: 10-12-2016 Chest x-ray Abril Dupree PA-C Work Phone: Start: 10-09-2016 End: 10-09-2016 Follow Up Appt Other Abril Dupree PA-C Work Phone: Start: 10-09-2016 End: 10-09-2016 Natriuretic peptide B [Mass/volume] in Blood Abril Dupree PA-C Work Phone: Start: 10-09-2016 End: 10-12-2016 Thyrotropin [Units/volume] in Serum or Plasma Abril Dupree PA-C Work Phone: Start: 10-09-2016 End: 10-12-2016 Thyroxine (T4) [Mass/volume] in Serum or Plasma Abril Dupree PA-C Work Phone: Start: 10-09-2016 End: 10-09-2016 Documentation of current medications Elsy Grubbs RN Start: 10-09-2016 End: 10-12-2016 Basic metabolic 2000 panel - Serum or Plasma Abril Dupree PA-C Work Phone: Start: 10-09-2016 End: 10-09-2016 CBC W Auto Differential panel - Blood Abril Dupree PA-C Work Phone: Start: 10-09-2016 End: 10-12-2016 Chest x-ray Abril Dupree PA-C Work Phone: Start: 10-09-2016 End: 10-09-2016 Follow Up Appt Other Abril Dupree PA-C Work Phone: Start: 10-09-2016 End: 10-09-2016 Natriuretic peptide B [Mass/volume] in Blood Abril Dupree PA-C Work Phone: Start: 10-09-2016 End: 10-12-2016 Thyrotropin [Units/volume] in Serum or Plasma Abril Dupree PA-C Work Phone: Start: 10-09-2016 End: 10-12-2016 Thyroxine (T4) [Mass/volume] in Serum or Plasma Abril Dupree PA-C Work Phone: Start: 09-08-2016 End: 09-30-2016 Follow Up Appt 3 months Abril Dupree PA-C Work Phone: Start: 09-08-2016 End: 09-30-2016 Pacer Clinic Abril Dupree PA-C Work Phone: Start: 09-08-2016 End: 09-09-2016 Prgrmg eval implantable in prsn dual lead dfb Abril Dupree PA-C Work Phone: Start: 09-08-2016 End: 09-30-2016 Follow Up Appt 3 months Abril Dupree PA-C Work Phone: Start: 09-08-2016 End: 09-30-2016 Pacer Clinic Abril Dupree PA-C Work Phone: Start: 09-08-2016 End: 09-09-2016 Prgrmg eval implantable in prsn dual lead dfb Abril Dupree PA-C Work Phone: Start: 04-24-2016 End: 09-30-2016 Follow Up Appt 3 months Abril Dupree PA-C Work Phone: Start: 04-24-2016 End: 04-24-2016 Nurse, Teaching, Wound Check (no charge) Abril Dupree PA-C Work Phone: Start: 04-24-2016 End: 09-30-2016 Pacer Clinic Abril Dupree PA-C Work Phone: Start: 04-24-2016 End: 09-30-2016 Follow Up Appt 3 months Abril Dupree PA-C Work Phone: Start: 04-24-2016 End: 04-24-2016 Nurse, Teaching, Wound Check (no charge) Abril Dupree PA-C Work Phone: Start: 04-24-2016 End: 09-30-2016 Pacer Clinic Abril Dupree PA-C Work Phone: Start: 04-09-2016 End: 04-09-2016 *BMP Robbi Abbott MD Start: 04-09-2016 End: 10-09-2016 Pacemaker Generator Change Robbi horne MD Start: 04-09-2016 End: 04-09-2016 Basic metabolic 2000 panel - Serum or Plasma Robbi Abbott MD Start: 04-09-2016 End: 10-09-2016 Pacemaker Generator Change Robbi horne MD Start: 04-08-2016 End: 04-08-2016 Urinalysis Elsy Grubbs RN Start: 04-08-2016 End: 04-08-2016 *UA - Urinalysis w/o Micro Robbi horne MD Start: 04-08-2016 End: 04-08-2016 CBC W Auto Differential panel - Blood Robbi Abbott MD Start: 04-08-2016 End: 04-08-2016 Ecg routine ecg w/least 12 lds w/i&r Robbi Abbott MD Start: 04-08-2016 End: 04-08-2016 Follow Up Appt 6 months Robbi Abbott MD Start: 04-08-2016 End: 04-08-2016 INR in Platelet poor plasma by Coagulation assay Robbi Abbott MD Start: 04-08-2016 End: 04-08-2016 MMM Robbi Abbott MD Start: 04-08-2016 End: 04-21-2016 Nurse, Teaching, Wound Check (no charge) Timoteo Mullins MD Start: 04-08-2016 End: 04-08-2016 *UA - Urinalysis w/o Micro Robbi horne MD Start: 04-08-2016 End: 04-08-2016 CBC W Auto Differential panel - Blood Robbi Abbott MD Start: 04-08-2016 End: 04-08-2016 Ecg routine ecg w/least 12 lds w/i&r Robbi Abbott MD Start: 04-08-2016 End: 04-08-2016 Follow Up Appt 6 months Robbi Abbott MD Start: 04-08-2016 End: 10-13-2017 Hepatic function 2000 panel - Serum or Plasma Robbi Abbott MD Start: 04-08-2016 End: 04-08-2016 INR in Platelet poor plasma by Coagulation assay Robbi Abbott MD Start: 04-08-2016 End: 10-13-2017 Lipid 1996 panel - Serum or Plasma Robbi Abbott MD Start: 04-08-2016 End: 04-08-2016 MMM Robbi Abbott MD Start: 04-08-2016 End: 04-21-2016 Nurse, Teaching, Wound Check (no charge) Timoteo Mullins MD Start: 03-30-2016 End: 09-30-2016 *Hepatic Function Panel Abril Dupree PA-C Work Phone: Start: 03-30-2016 End: 09-30-2016 Lipid 1996 panel - Serum or Plasma Abril Dupree PA-C Work Phone: Start: 03-30-2016 End: 09-30-2016 Hepatic function 2000 panel - Serum or Plasma Abril Dupree PA-C Work Phone: Start: 03-30-2016 End: 09-30-2016 Lipid 1996 panel - Serum or Plasma Abril Dupree PA-C Work Phone: Start: 03-19-2016 End: 04-08-2016 Chest x-ray Robbi Abbott MD Start: 03-19-2016 End: 09-30-2016 Ecg routine ecg w/least 12 lds w/i&r Robbi Abbott MD Start: 03-19-2016 End: 04-08-2016 Chest x-ray Robbi Abbott MD Start: 03-19-2016 End: 09-30-2016 Ecg routine ecg w/least 12 lds w/i&r Robbi Abbott MD Start: 02-28-2016 End: 09-30-2016 Follow Up Appt 1 month Abril Dupree PA-C Work Phone: Start: 02-28-2016 End: 09-30-2016 Pacer Clinic Abril Dupree PA-C Work Phone: Start: 02-28-2016 End: 02-28-2016 Prgrmg eval implantable in prsn dual lead dfb Abril Dupree PA-C Work Phone: Start: 02-28-2016 End: 09-30-2016 Follow Up Appt 1 month Abril Dupree PA-C Work Phone: Start: 02-28-2016 End: 09-30-2016 Pacer Clinic Abril Dupree PA-C Work Phone: Start: 02-28-2016 End: 02-28-2016 Prgrmg eval implantable in prsn dual lead dfb Abril Dupree PA-C Work Phone: Start: 01-17-2016 End: 09-30-2016 Follow Up Appt 1 month Timoteo Mullins MD Start: 01-17-2016 End: 09-30-2016 Pacer Clinic Timoteo Mullins MD Start: 01-17-2016 End: 01-21-2016 Prgrmg eval implantable in prsn dual lead dfb Timoteo Mullins MD Start: 01-17-2016 End: 09-30-2016 Follow Up Appt 1 month Timoteo Mullins MD Start: 01-17-2016 End: 09-30-2016 Pacer Clinic Timoteo Mullins MD Start: 01-17-2016 End: 01-21-2016 Prgrmg eval implantable in prsn dual lead dfb Timoteo Mullins MD Start: 11-15-2015 End: 09-30-2016 Follow Up Appt 3 months Robbi Abbott MD Start: 11-15-2015 End: 09-30-2016 Pacer Clinic Robbi Abbott MD Start: 11-15-2015 End: 11-15-2015 Prgrmg eval implantable in prsn dual lead dfb Robbi Abbott MD Start: 11-15-2015 End: 09-30-2016 Follow Up Appt 3 months Robbi Abbott MD Start: 11-15-2015 End: 09-30-2016 Pacer Clinic Robbi Abbott MD Start: 11-15-2015 End: 11-15-2015 Prgrmg eval implantable in prsn dual lead dfb Robib Abbott MD Start: 10-02-2015 End: 09-30-2016 Follow Up Appt 1 month Abril Dupree PA-C Work Phone: Start: 10-02-2015 End: 09-30-2016 Pacer Clinic Abril Dupree PA-C Work Phone: Start: 10-02-2015 End: 10-02-2015 Prgrmg eval implantable in prsn dual lead dfb Abril Dupree PA-C Work Phone: Start: 10-02-2015 End: 09-30-2016 Follow Up Appt 1 month Abril Dupree PA-C Work Phone: Start: 10-02-2015 End: 09-30-2016 Pacer Clinic Abril Dupree PA-C Work Phone: Start: 10-02-2015 End: 10-02-2015 Prgrmg eval implantable in prsn dual lead dfb Abril Dupree PA-C Work Phone: Start: 09-09-2015 End: 09-30-2015 *BMP Abril Dupree PA-C Work Phone: Start: 09-09-2015 End: 09-30-2015 *CBC with Differential Abril Dupree PA-C Work Phone: Start: 09-09-2015 End: 09-30-2015 *Hepatic Function Panel Abril Dupree PA-C Work Phone: Start: 09-09-2015 End: 10-09-2016 Chest x-ray Abril Dupree PA-C Work Phone: Start: 09-09-2015 End: 09-09-2015 Documentation of current medications Abril Dupree PA-C Work Phone: Start: 09-09-2015 End: 09-30-2016 Follow Up Appt 1 month Robbi Abbott MD Start: 09-09-2015 End: 09-09-2015 Follow Up Appt 6 months Abril Dupree PA-C Work Phone: Start: 09-09-2015 End: 09-30-2015 Lipid 1996 panel - Serum or Plasma Abril Dupree PA-C Work Phone: Start: 09-09-2015 End: 09-30-2015 Natriuretic peptide B [Mass/volume] in Blood Abril Dupree PA-C Work Phone: Start: 09-09-2015 End: 09-30-2016 Pacer Clinic Robbi Abbott MD Start: 09-09-2015 End: 09-09-2015 PFM Abril Dupree PA-C Work Phone: Start: 09-09-2015 End: 09-09-2015 Prgrmg eval implantable in prsn dual lead dfb Robbi Abbott MD Start: 09-09-2015 End: 09-30-2015 Basic metabolic 2000 panel - Serum or Plasma Abril Dupree PA-C Work Phone: Start: 09-09-2015 End: 09-30-2015 CBC W Auto Differential panel - Blood Abril Dupree PA-C Work Phone: Start: 09-09-2015 End: 10-09-2016 Chest x-ray Abril Dupree PA-C Work Phone: Start: 09-09-2015 End: 09-09-2015 Documentation of current medications Abril Dupree PA-C Work Phone: Start: 09-09-2015 End: 09-30-2016 Follow Up Appt 1 month Robbi Abbott MD Start: 09-09-2015 End: 09-09-2015 Follow Up Appt 6 months Abril Dupree PA-C Work Phone: Start: 09-09-2015 End: 09-30-2015 Hepatic function 2000 panel - Serum or Plasma Abril Dupree PA-C Work Phone: Start: 09-09-2015 End: 09-30-2015 Lipid 1996 panel - Serum or Plasma Abril Dupree PA-C Work Phone: Start: 09-09-2015 End: 09-30-2015 Natriuretic peptide B [Mass/volume] in Blood Abril Dupree PA-C Work Phone: Start: 09-09-2015 End: 09-30-2016 Pacer Clinic Robbi Abbott MD Start: 09-09-2015 End: 09-09-2015 PFM Abril Dupree PA-C Work Phone: Start: 09-09-2015 End: 09-09-2015 Prgrmg eval implantable in prsn dual lead dfb Robbi Abbott MD Start: 05-06-2015 End: 09-03-2015 Follow Up Appt 3 months Robbi Abbott MD Start: 05-06-2015 End: 09-03-2015 Pacer Clinic Robbi Abbott MD Start: 05-06-2015 End: 05-06-2015 Prgrmg eval implantable in prsn dual lead dfb Robbi Abbott MD Start: 05-06-2015 End: 09-03-2015 Follow Up Appt 3 months Robbi Abbott MD Start: 05-06-2015 End: 09-03-2015 Pacer Clinic Robbi Abbott MD Start: 05-06-2015 End: 05-06-2015 Prgrmg eval implantable in prsn dual lead dfb Robbi Abbott MD Start: 04-01-2015 End: 09-09-2015 *Hepatic Function Panel Robbi Abbott MD Start: 04-01-2015 End: 09-09-2015 Lipid 1996 panel - Serum or Plasma Robbi Abbott MD Start: 04-01-2015 End: 09-09-2015 Hepatic function 2000 panel - Serum or Plasma Robbi Abbott MD Start: 04-01-2015 End: 09-09-2015 Lipid 1996 panel - Serum or Plasma Robbi Abbott MD Start: 03-04-2015 End: 03-05-2015 Documentation of current medications Robbi Abbott MD Start: 03-04-2015 End: 03-04-2015 Follow Up Appt 6 months Robbi Abbott MD Start: 03-04-2015 End: 03-04-2015 MM Robbi Abbott MD Start: 03-04-2015 End: 03-05-2015 Documentation of current medications Robbi Abbott MD Start: 03-04-2015 End: 03-04-2015 Follow Up Appt 6 months Robbi Abbott MD Start: 03-04-2015 End: 03-04-2015 MM Robbi Abbott MD Start: 01-16-2015 End: 09-03-2015 Follow Up Appt 3 months Abril Dupree PA-C Work Phone: Start: 01-16-2015 End: 09-03-2015 Pacer Clinic Abril Dupree PA-C Work Phone: Start: 01-16-2015 End: 01-16-2015 Prgrmg eval implantable in prsn dual lead dfb Abril Dupree PA-C Work Phone: Start: 01-16-2015 End: 09-03-2015 Follow Up Appt 3 months Abril Dupree PA-C Work Phone: Start: 01-16-2015 End: 09-03-2015 Pacer Clinic Abril Dupree PA-C Work Phone: Start: 01-16-2015 End: 01-16-2015 Prgrmg eval implantable in prsn dual lead dfb Abril Dupree PA-C Work Phone: Start: 11-30-2014 End: 12-01-2014 Documentation of current medications Abril Dupree PA-C Work Phone: Start: 11-30-2014 End: 11-30-2014 Follow Up Appt Other Abril Dupree PA-C Work Phone: Start: 11-30-2014 End: 11-30-2014 PFM Abril Dupree PA-C Work Phone: Start: 11-30-2014 End: 12-01-2014 Documentation of current medications Abril Dupree PA-C Work Phone: Start: 11-30-2014 End: 11-30-2014 Follow Up Appt Other Abril Dupree PA-C Work Phone: Start: 11-30-2014 End: 11-30-2014 PFM Abril Dupree PA-C Work Phone: Start: 11-29-2014 End: 11-29-2014 *BMP Abril Dupree PA-C Work Phone: Start: 11-29-2014 End: 11-29-2014 Basic metabolic 2000 panel - Serum or Plasma Abril Dupree PA-C Work Phone: Start: 11-14-2014 End: 11-15-2014 *BMP Abril Dupree PA-C Work Phone: Start: 11-14-2014 End: 11-15-2014 *CBC with Differential Abril Dupree PA-C Work Phone: Start: 11-14-2014 End: 11-15-2014 Chest x-ray Abril Dupree PA-C Work Phone: Start: 11-14-2014 End: 11-14-2014 Follow up Appt 3 weeks Abril Dupree PA-C Work Phone: Start: 11-14-2014 End: 11-14-2014 MMM Abril Dupree PA-C Work Phone: Start: 11-14-2014 End: 11-15-2014 Natriuretic peptide B [Mass/volume] in Blood Abril Dupree PA-C Work Phone: Start: 11-14-2014 End: 11-15-2014 Basic metabolic 2000 panel - Serum or Plasma Abril Dupree PA-C Work Phone: Start: 11-14-2014 End: 11-15-2014 CBC W Auto Differential panel - Blood Abril Dupree PA-C Work Phone: Start: 11-14-2014 End: 11-15-2014 Chest x-ray Abril Dupree PA-C Work Phone: Start: 11-14-2014 End: 11-14-2014 Follow up Appt 3 weeks Abril Dupree PA-C Work Phone: Start: 11-14-2014 End: 11-14-2014 MMM Abril Dupree PA-C Work Phone: Start: 11-14-2014 End: 11-15-2014 Natriuretic peptide B [Mass/volume] in Blood Abril Dupree PA-C Work Phone: Start: 10-16-2014 End: 11-14-2014 Follow Up Appt 3 months Abril Dupree PA-C Work Phone: Start: 10-16-2014 End: 11-14-2014 Pacer Clinic Abril Dupree PA-C Work Phone: Start: 10-16-2014 End: 10-16-2014 Prgrmg eval implantable in prsn dual lead dfb Abril Dupree PA-C Work Phone: Start: 10-16-2014 End: 11-14-2014 Follow Up Appt 3 months Abril Dupree PA-C Work Phone: Start: 10-16-2014 End: 11-14-2014 Pacer Clinic Abril Dupree PA-C Work Phone: Start: 10-16-2014 End: 10-16-2014 Prgrmg eval implantable in prsn dual lead dfb Abril Dupree PA-C Work Phone: Start: 09-03-2014 End: 10-01-2014 *Hepatic Function Panel Abril Dupree PA-C Work Phone: Start: 09-03-2014 End: 09-03-2014 Ecg routine ecg w/least 12 lds w/i&r Abril Dupree PA-C Work Phone: Start: 09-03-2014 End: 09-03-2014 Follow Up Appt Other Abril Dupree PA-C Work Phone: Start: 09-03-2014 End: 10-01-2014 Lipid 1996 panel - Serum or Plasma Abril Dupree PA-C Work Phone: Start: 09-03-2014 End: 09-03-2014 PFM Abril Dupree PA-C Work Phone: Start: 09-03-2014 End: 09-03-2014 Ecg routine ecg w/least 12 lds w/i&r Abril Dupree PA-C Work Phone: Start: 09-03-2014 End: 09-03-2014 Follow Up Appt Other Abril Dupree PA-C Work Phone: Start: 09-03-2014 End: 10-01-2014 Hepatic function 2000 panel - Serum or Plasma Abril Dupree PA-C Work Phone: Start: 09-03-2014 End: 10-01-2014 Lipid 1996 panel - Serum or Plasma Abril Dupree PA-C Work Phone: Start: 09-03-2014 End: 09-03-2014 PFM Abril Dupree PA-C Work Phone: Start: 07-03-2014 End: 08-23-2014 Follow Up Appt 3 months Abril Dupree PA-C Work Phone: Start: 07-03-2014 End: 08-23-2014 Pacer Clinic Abril Dupree PA-C Work Phone: Start: 07-03-2014 End: 07-03-2014 Prgrmg eval implantable in prsn dual lead dfb Abril Dupree PA-C Work Phone: Start: 07-03-2014 End: 07-03-2014 Program eval implantable in persn dual ld pacer Abril Dupree PA-C Work Phone: Start: 07-03-2014 End: 08-23-2014 Follow Up Appt 3 months Abril Dupree PA-C Work Phone: Start: 07-03-2014 End: 08-23-2014 Pacer Clinic Abril Dupree PA-C Work Phone: Start: 07-03-2014 End: 07-03-2014 Prgrmg eval implantable in prsn dual lead dfb Abril Dupree PA-C Work Phone: Start: 04-04-2014 End: 07-03-2014 Follow Up Appt 3 months Robbi Abbott MD Start: 04-04-2014 End: 07-03-2014 Pacer Clinic Robbi Abbott MD Start: 04-04-2014 End: 04-04-2014 Prgrmg eval implantable in prsn dual lead dfb Robbi Abbott MD Start: 04-04-2014 End: 07-03-2014 Follow Up Appt 3 months Robbi Abbott MD Start: 04-04-2014 End: 07-03-2014 Pacer Clinic Robbi Abbott MD Start: 04-04-2014 End: 04-04-2014 Prgrmg eval implantable in prsn dual lead dfb Robbi Abbott MD Start: 03-02-2014 End: 10-01-2014 *Hepatic Function Panel Robbi Abbott MD Start: 03-02-2014 End: 03-02-2014 Follow Up Appt 6 months Robbi Abbott MD Start: 03-02-2014 End: 10-01-2014 Lipid 1996 panel - Serum or Plasma Robbi Abbott MD Start: 03-02-2014 End: 03-02-2014 MM Robbi Abbott MD Start: 03-02-2014 End: 03-02-2014 Follow Up Appt 6 months Robbi Abbott MD Start: 03-02-2014 End: 10-01-2014 Hepatic function 2000 panel - Serum or Plasma Robbi Abbott MD Start: 03-02-2014 End: 10-01-2014 Lipid 1996 panel - Serum or Plasma Robbi Abbott MD Start: 03-02-2014 End: 03-02-2014 MM Robbi Abbott MD Start: 01-30-2014 End: 08-23-2014 *Hepatic Function Panel Robbi Abbott MD Start: 01-30-2014 End: 08-23-2014 Lipid 1996 panel - Serum or Plasma Robbi Abbott MD Start: 01-30-2014 End: 08-23-2014 Hepatic function 2000 panel - Serum or Plasma Robbi Abbott MD Start: 01-30-2014 End: 08-23-2014 Lipid 1996 panel - Serum or Plasma Robbi Abbott MD Start: 12-26-2013 End: 07-03-2014 Follow Up Appt 3 months Abril Dupree PA-C Work Phone: Start: 12-26-2013 End: 07-03-2014 Pacer Clinic Abril Dupree PA-C Work Phone: Start: 12-26-2013 End: 12-26-2013 Prgrmg eval implantable in prsn dual lead dfb Abril Dupree PA-C Work Phone: Start: 12-26-2013 End: 07-03-2014 Follow Up Appt 3 months Abril Dupree PA-C Work Phone: Start: 12-26-2013 End: 07-03-2014 Pacer Clinic Abril Dupree PA-C Work Phone: Start: 12-26-2013 End: 12-26-2013 Prgrmg eval implantable in prsn dual lead dfb Abril Dupree PA-C Work Phone: Start: 08-17-2013 End: 12-18-2013 Follow Up Appt 3 months Robbi Abbott MD Start: 08-17-2013 End: 12-18-2013 Pacer Clinic Robbi Abbott MD Start: 08-17-2013 End: 08-17-2013 Prgrmg eval implantable in prsn dual lead dfb Robbi Abbott MD Start: 08-17-2013 End: 12-18-2013 Follow Up Appt 3 months Robbi Abbott MD Start: 08-17-2013 End: 12-18-2013 Pacer Clinic Robbi Abbott MD Start: 08-17-2013 End: 08-17-2013 Prgrmg eval implantable in prsn dual lead dfb Robbi Abbott MD Start: 08-04-2013 End: 08-18-2013 *Hepatic Function Panel Robbi Abbott MD Start: 08-04-2013 End: 08-04-2013 Device Interrogation Robbi Abbott MD Start: 08-04-2013 End: 08-04-2013 Follow Up Appt 6 months Robbi Abbott MD Start: 08-04-2013 End: 08-18-2013 Lipid 1996 panel - Serum or Plasma Robbi Abbott MD Start: 08-04-2013 End: 08-04-2013 PFM Robbi Abbott MD Start: 08-04-2013 End: 08-04-2013 Device Interrogation Robbi Abbott MD Start: 08-04-2013 End: 08-04-2013 Follow Up Appt 6 months Robbi Abbott MD Start: 08-04-2013 End: 08-18-2013 Hepatic function 2000 panel - Serum or Plasma Robbi Abbott MD Start: 08-04-2013 End: 08-18-2013 Lipid 1996 panel - Serum or Plasma Robbi Abbott MD Start: 08-04-2013 End: 08-04-2013 PFM Robbi Abbott MD Start: 05-19-2013 End: 08-04-2013 Follow Up Appt 3 months Adeel Tavares Start: 05-19-2013 End: 08-04-2013 Pacer Clinic Timoteo Mullins MD Start: 05-19-2013 End: 05-19-2013 Prgrmg eval implantable in prsn dual lead lisandro Mullins MD Start: 05-19-2013 End: 08-04-2013 Follow Up Appt 3 months Adeel Tavares Start: 05-19-2013 End: 08-04-2013 Pacer Clinic Timoteo Mullins MD Start: 05-19-2013 End: 05-19-2013 Prgrmg eval implantable in prsn dual lead lisandro Mullins MD Start: 03-20-2013 End: 08-04-2013 Follow Up Appt 6 months Robbi Abbott MD Start: 03-20-2013 End: 03-20-2013 Follow Up Appt Other Robbi Abbott MD Start: 03-20-2013 End: 08-04-2013 PFM Robbi Abbott MD Start: 03-20-2013 End: 08-04-2013 Follow Up Appt 6 months Robbi Abbott MD Start: 03-20-2013 End: 03-20-2013 Follow Up Appt Other Robbi Abbott MD Start: 03-20-2013 End: 08-04-2013 PFM Robbi Abbott MD Start: 02-15-2013 End: 03-20-2013 Follow Up Appt 3 months Robbi Abbott MD Start: 02-15-2013 End: 03-20-2013 Pacer Clinic Robbi Abbott MD Start: 02-15-2013 End: 02-15-2013 Prgrmg eval implantable in prsn dual lead dfb Robbi Abbott MD Start: 02-15-2013 End: 03-20-2013 Follow Up Appt 3 months Robbi Abbott MD Start: 02-15-2013 End: 03-20-2013 Pacer Clinic Robbi Abbott MD Start: 02-15-2013 End: 02-15-2013 Prgrmg eval implantable in prsn dual lead dfb Robbi Abbott MD Start: 01-30-2013 End: 03-20-2013 *Hepatic Function Panel Robbi Abbott MD Start: 01-30-2013 End: 03-20-2013 Lipid 1996 panel - Serum or Plasma Robbi Abbott MD Start: 01-30-2013 End: 03-20-2013 Thyrotropin [Units/volume] in Serum or Plasma Aruna Green MA Start: 01-30-2013 End: 03-20-2013 Thyroxine (T4) [Mass/volume] in Serum or Plasma Aruna Green MA Start: 01-30-2013 End: 03-20-2013 Hepatic function 2000 panel - Serum or Plasma Robbi Abbott MD Start: 01-30-2013 End: 03-20-2013 Lipid 1996 panel - Serum or Plasma Robbi Abbott MD Start: 01-30-2013 End: 03-20-2013 Thyrotropin [Units/volume] in Serum or Plasma Aruna Green MA Start: 01-30-2013 End: 03-20-2013 Thyroxine (T4) [Mass/volume] in Serum or Plasma Aruna Green MA Start: 10-01-2012 End: 03-20-2013 *Hepatic Function Panel Robbi Abbott MD Start: 10-01-2012 End: 03-20-2013 Lipid 1996 panel - Serum or Plasma Robbi Abbott MD Start: 10-01-2012 End: 03-20-2013 Hepatic function 2000 panel - Serum or Plasma Robbi Abbott MD Start: 10-01-2012 End: 03-20-2013 Lipid 1996 panel - Serum or Plasma Robbi Abbott MD Start: 08-10-2012 End: 08-17-2012 *BMP Robbi Abbott MD Start: 08-10-2012 End: 03-20-2013 *CBC with Differential Robbi Abbott MD Start: 08-10-2012 End: 08-10-2012 Ecg routine ecg w/least 12 lds w/i&r Robbi Abbott MD Start: 08-10-2012 End: 08-10-2012 Follow Up Appt 6 months Robbi Abbott MD Start: 08-10-2012 End: 08-17-2012 Magnesium [Mass/volume] in Serum or Plasma Robbi Abbott MD Start: 08-10-2012 End: 08-17-2012 Thyrotropin [Units/volume] in Serum or Plasma Robbi Abbott MD Start: 08-10-2012 End: 08-17-2012 Thyroxine (T4) [Mass/volume] in Serum or Plasma Robbi Abbott MD Start: 08-10-2012 End: 08-17-2012 Basic metabolic 2000 panel - Serum or Plasma Robbi Abbott MD Start: 08-10-2012 End: 03-20-2013 CBC W Auto Differential panel - Blood Robbi Abbott MD Start: 08-10-2012 End: 08-10-2012 Ecg routine ecg w/least 12 lds w/i&r Robbi Abbott MD Start: 08-10-2012 End: 08-10-2012 Follow Up Appt 6 months Robbi Abbott MD Start: 08-10-2012 End: 08-17-2012 Magnesium [Mass/volume] in Serum or Plasma Robbi Abbott MD Start: 08-10-2012 End: 08-17-2012 Thyrotropin [Units/volume] in Serum or Plasma Robbi Abbott MD Start: 08-10-2012 End: 08-17-2012 Thyroxine (T4) [Mass/volume] in Serum or Plasma Robbi Abbott MD Start: 05-02-2012 End: 05-02-2012 *Hepatic Function Panel Robbi Abbott MD Start: 05-02-2012 End: 05-02-2012 Ecg routine ecg w/least 12 lds w/i&r Robbi Abbott MD Start: 05-02-2012 End: 03-20-2013 Echocardiography Robbi Abbott MD Start: 05-02-2012 End: 05-02-2012 Follow Up Appt 6 months Robbi Abbott MD Start: 05-02-2012 End: 05-02-2012 Lipid 1996 panel - Serum or Plasma Robbi Abbott MD Start: 05-02-2012 End: 03-20-2013 Nuclear stress test -adenosine Robbi Abbott MD Start: 05-02-2012 End: 05-02-2012 Ecg routine ecg w/least 12 lds w/i&r Robbi Abbott MD Start: 05-02-2012 End: 03-20-2013 Echocardiography Robbi Abbott MD Start: 05-02-2012 End: 05-02-2012 Follow Up Appt 6 months Robbi Abbott MD Start: 05-02-2012 End: 05-02-2012 Hepatic function 2000 panel - Serum or Plasma Robbi Abbott MD Start: 05-02-2012 End: 05-02-2012 Lipid 1996 panel - Serum or Plasma Robbi Abbott MD Start: 05-02-2012 End: 03-20-2013 Nuclear stress test -adenosine Robbi Abbott MD Start: 01-13-2011 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, HX OF Elsy Grubbs RN Plan of Treatment Date Care Activity Detail Author Start: 07-02-2021 Influenza vaccination INFLUENZA (Season Ended) [facility] Start: 03-05-2019 DIABETES SCREEN DIABETES SCREEN [facility] Start: 12-29-2017 End: 12-29-2017 Appointment Appointment [facility] Work Phone: Start: 10-22-2017 End: 10-22-2017 Appointment Appointment [facility] [employer] Work Phone: Start: 09-27-2017 End: 09-28-2017 Follow Up Appt 3 months Follow Up Appt 3 months [facility] Work Phone: Start: 09-27-2017 End: 09-28-2017 Pacer Clinic Pac[facility] Clinic [facility] Work Phone: Start: 09-27-2017 End: 09-27-2017 Patient encounter procedure Appointment [facility] Work Phone: Start: 09-27-2017 End: 10-13-2017 Follow Up Appt 3 months Follow Up Appt 3 months [facility] Work Phone: Start: 09-27-2017 End: 10-13-2017 Pacer Clinic Pacer Clinic [facility] Work Phone: Start: 06-28-2017 End: 06-28-2017 Patient encounter procedure Appointment [facility] Work Phone: Start: 06-28-2017 End: 06-28-2017 Follow Up Appt 3 months Follow Up Appt 3 months [facility] Work Phone: Start: 06-28-2017 End: 06-28-2017 Pacer Clinic Pacer Clinic [facility] Work Phone: Start: 06-28-2017 End: 10-13-2017 Follow Up Appt 3 months Follow Up Appt 3 months [facility] Work Phone: Start: 06-28-2017 End: 10-13-2017 Pacer Clinic Pacer Clinic [facility] Work Phone: Start: 05-24-2017 End: 05-24-2017 Follow Up Appt Other Follow Up Appt Other [facility] Work Phone: Start: 05-24-2017 End: 05-24-2017 MMM MMM [facility] Work Phone: Start: 05-24-2017 End: 05-24-2017 Nuclear stress test -Lexiscan Nuclear stress test -Lexiscan [facility] Work Phone: Start: 05-24-2017 End: 05-24-2017 PFM PFM [facility] Work Phone: Start: 05-24-2017 End: 05-24-2017 Patient encounter procedure Appointment [facility] Work Phone: Start: 05-24-2017 End: 05-24-2017 Follow Up Appt Other Follow Up Appt Other [facility] Work Phone: Start: 05-24-2017 End: 05-24-2017 MMM MMM [facility] Work Phone: Start: 05-24-2017 End: 05-24-2017 Nuclear stress test -Lexiscan Nuclear stress test -Lexiscan [facility] Work Phone: Start: 05-24-2017 End: 05-24-2017 PFM PFM [facility] Work Phone: Start: 04-12-2017 End: 04-12-2017 Follow Up Appt 6 months Follow Up Appt 6 months [facility] Work Phone: Start: 04-12-2017 End: 04-12-2017 Follow Up Appt Other Follow Up Appt Other [facility] Work Phone: Start: 04-12-2017 End: 04-12-2017 MMM MMM [facility] Work Phone: Start: 04-12-2017 End: 04-12-2017 Patient encounter procedure Appointment [facility] Work Phone: Start: 04-12-2017 End: 10-13-2017 Follow Up Appt 6 months Follow Up Appt 6 months [facility] Work Phone: Start: 04-12-2017 End: 10-13-2017 Follow Up Appt Other Follow Up Appt Other [facility] Work Phone: Start: 04-12-2017 End: 10-13-2017 MMM MMM [facility] Work Phone: Start: 03-22-2017 End: 03-23-2017 Follow Up Appt 3 months Follow Up Appt 3 months [facility] Work Phone: Start: 03-22-2017 End: 03-23-2017 Pacer Clinic Pacer Clinic [facility] Work Phone: Start: 03-22-2017 End: 10-13-2017 Follow Up Appt 3 months Follow Up Appt 3 months [facility] Work Phone: Start: 03-22-2017 End: 10-13-2017 Pacer Clinic Pacer Clinic [facility] Work Phone: Start: 12-17-2016 End: 12-17-2016 Follow Up Appt 3 months Follow Up Appt 3 months [facility] Work Phone: Start: 12-17-2016 End: 12-17-2016 Pacer Clinic Pacer Clinic [facility] Work Phone: Start: 12-17-2016 End: 10-13-2017 Follow Up Appt 3 months Follow Up Appt 3 months [facility] Work Phone: Start: 12-17-2016 End: 10-13-2017 Pacer Clinic Pacer Clinic [facility] Work Phone: Start: 10-09-2016 End: 10-12-2016 *BMP *BMP [facility] Work Phone: Start: 10-09-2016 End: 10-09-2016 *CBC with Differential *CBC with Differential [facility] Work Phone: Start: 10-09-2016 End: 10-09-2016 BNP *Brain Natriuretic Peptide BNP [facility] Work Phone: Start: 10-09-2016 End: 10-12-2016 Chest x-ray X-Ray, Chest, PA & Lateral [facility] Work Phone: Start: 10-09-2016 End: 10-09-2016 Follow Up Appt Other Follow Up Appt Other [facility] Work Phone: Start: 10-09-2016 End: 10-12-2016 Thyroid stimulating hormone (TSH) *TSH [facility] Work Phone: Start: 10-09-2016 End: 10-12-2016 Thyroxine (T4) *T4 (Total) [facility] Work Phone: Start: 10-09-2016 End: 10-12-2016 Basic metabolic 2000 panel - Serum or Plasma *BMP [facility] Work Phone: Start: 10-09-2016 End: 10-09-2016 CBC W Auto Differential panel - Blood *CBC with Differential [facility] Work Phone: Start: 10-09-2016 End: 10-12-2016 Chest x-ray X-Ray, Chest, PA & Lateral [facility] Work Phone: Start: 10-09-2016 End: 10-09-2016 Follow Up Appt Other Follow Up Appt Other [facility] Work Phone: Start: 10-09-2016 End: 10-09-2016 Natriuretic peptide B [Mass/volume] in Blood *Brain Natriuretic Peptide BNP [facility] Work Phone: Start: 10-09-2016 End: 10-12-2016 Thyrotropin [Units/volume] in Serum or Plasma *TSH [facility] Work Phone: Start: 10-09-2016 End: 10-12-2016 Thyroxine (T4) [Mass/volume] in Serum or Plasma *T4 (Total) [facility] Work Phone: Start: 09-08-2016 End: 09-30-2016 Follow Up Appt 3 months Follow Up Appt 3 months [facility] Work Phone: Start: 09-08-2016 End: 09-30-2016 Pacer Clinic Pacer Clinic [facility] Work Phone: Start: 09-08-2016 End: 09-30-2016 Follow Up Appt 3 months Follow Up Appt 3 months [facility] Work Phone: Start: 09-08-2016 End: 09-30-2016 Pacer Clinic Pacer Clinic [facility] Work Phone: Start: 04-24-2016 End: 09-30-2016 Follow Up Appt 3 months Follow Up Appt 3 months [facility] Work Phone: Start: 04-24-2016 End: 09-30-2016 Pacer Clinic Pacer Clinic [facility] Work Phone: Start: 04-24-2016 End: 09-30-2016 Follow Up Appt 3 months Follow Up Appt 3 months [facility] Work Phone: Start: 04-24-2016 End: 09-30-2016 Pacer Clinic Pacer Clinic [facility] Work Phone: Start: 04-09-2016 End: 04-09-2016 *BMP *BMP [facility] Work Phone: Start: 04-09-2016 End: 04-08-2016 *UA - Urinalysis w/o Micro *UA - Urinalysis w/o Micro [facility] Work Phone: Start: 04-09-2016 End: 04-08-2016 CBC W Auto Differential panel - Blood *CBC without Diff [facility] Work Phone: Start: 04-09-2016 End: 04-08-2016 INR Coag RelTime (PPP) *PT/INR [facility] Work Phone: Start: 04-09-2016 End: 04-08-2016 Pacemaker Generator Change Pacemaker Generator Change [facility] Work Phone: Start: 04-09-2016 End: 04-08-2016 *UA - Urinalysis w/o Micro *UA - Urinalysis w/o Micro [facility] Work Phone: Start: 04-09-2016 End: 04-09-2016 Basic metabolic 2000 panel - Serum or Plasma *BMP [facility] Work Phone: Start: 04-09-2016 End: 04-08-2016 CBC W Auto Differential panel - Blood *CBC without Diff [facility] Work Phone: Start: 04-09-2016 End: 04-08-2016 INR in Platelet poor plasma by Coagulation assay *PT/INR [facility] Work Phone: Start: 04-09-2016 End: 04-08-2016 Pacemaker Generator Change Pacemaker Generator Change [facility] Work Phone: Start: 04-08-2016 End: 04-08-2016 *Hepatic Function Panel *Hepatic Function Panel [email or web address] Work Phone: Start: 04-08-2016 End: 04-08-2016 Ecg routine ecg w/least 12 lds w/i&r EKG (In office) [facility] Work Phone: Start: 04-08-2016 End: 04-08-2016 Follow Up Appt 6 months Follow Up Appt 6 months [facility] Work Phone: Start: 04-08-2016 End: 04-08-2016 Lipid panel [AGGREGATE] *Lipid Profile CC PCP [facility] [employer] Work Phone: Start: 04-08-2016 End: 04-08-2016 MMM MMM [facility] [employer] Work Phone: Start: 04-08-2016 End: 04-08-2016 Ecg routine ecg w/least 12 lds w/i&r EKG (In office) [facility] [employer] Work Phone: Start: 04-08-2016 End: 04-08-2016 Follow Up Appt 6 months Follow Up Appt 6 months [employer] [facility] [employer] Work Phone: Start: 04-08-2016 End: 10-13-2017 Hepatic function 2000 panel - Serum or Plasma *Hepatic Function Panel [facility] [employer] Work Phone: Start: 04-08-2016 End: 10-13-2017 Lipid 1996 panel - Serum or Plasma *Lipid Profile CC PCP [facility] Work Phone: Start: 04-08-2016 End: 04-08-2016 MMM MMM [facility] [employer] Work Phone: Start: 03-30-2016 End: 09-30-2016 *Hepatic Function Panel *Hepatic Function Panel [facility] [employer] Work Phone: Start: 03-30-2016 End: 09-30-2016 Lipid panel [AGGREGATE] *Lipid Profile CC PCP [facility] Work Phone: Start: 03-30-2016 End: 09-30-2016 Hepatic function 2000 panel - Serum or Plasma *Hepatic Function Panel [facility] Work Phone: Start: 03-30-2016 End: 09-30-2016 Lipid 1996 panel - Serum or Plasma *Lipid Profile CC PCP [facility] Work Phone: Start: 03-19-2016 End: 04-08-2016 Chest x-ray X-Ray, Chest, PA & Lateral [facility] Work Phone: Start: 03-19-2016 End: 09-30-2016 Ecg routine ecg w/least 12 lds w/i&r EKG (In office) [facility] Work Phone: Start: 03-19-2016 End: 04-08-2016 Chest x-ray X-Ray, Chest, PA & Lateral [facility] Work Phone: Start: 03-19-2016 End: 09-30-2016 Ecg routine ecg w/least 12 lds w/i&r EKG (In office) [facility] Work Phone: Start: 02-28-2016 End: 09-30-2016 Follow Up Appt 1 month Follow Up Appt 1 month [facility] Work Phone: Start: 02-28-2016 End: 09-30-2016 Pacer Clinic Pacer Clinic [facility] Work Phone: Start: 02-28-2016 End: 09-30-2016 Follow Up Appt 1 month Follow Up Appt 1 month [facility] Work Phone: Start: 02-28-2016 End: 09-30-2016 Pacer Clinic Pacer Clinic [facility] Work Phone: Start: 01-17-2016 End: 09-30-2016 Follow Up Appt 1 month Follow Up Appt 1 month [facility] Work Phone: Start: 01-17-2016 End: 09-30-2016 Pacer Clinic Pacer Clinic [facility] Work Phone: Start: 01-17-2016 End: 09-30-2016 Follow Up Appt 1 month Follow Up Appt 1 month [facility] Work Phone: Start: 01-17-2016 End: 09-30-2016 Pacer Clinic Pacer Clinic [facility] Work Phone: Start: 11-15-2015 End: 09-30-2016 Follow Up Appt 3 months Follow Up Appt 3 months [facility] Work Phone: Start: 11-15-2015 End: 09-30-2016 Pacer Clinic Pacer Clinic [facility] Work Phone: Start: 11-15-2015 End: 09-30-2016 Follow Up Appt 3 months Follow Up Appt 3 months [facility] Work Phone: Start: 11-15-2015 End: 09-30-2016 Pacer Clinic Pacer Clinic [facility] Work Phone: Start: 10-02-2015 End: 09-30-2016 Follow Up Appt 1 month Follow Up Appt 1 month [facility] Work Phone: Start: 10-02-2015 End: 09-30-2016 Pacer Clinic Pacer Clinic [facility] Work Phone: Start: 10-02-2015 End: 09-30-2016 Follow Up Appt 1 month Follow Up Appt 1 month [facility] Work Phone: Start: 10-02-2015 End: 09-30-2016 Pacer Clinic Pacer Clinic [facility] Work Phone: Start: 09-09-2015 End: 09-30-2015 *BMP *BMP [facility] Work Phone: Start: 09-09-2015 End: 09-30-2015 *CBC with Differential *CBC with Differential [facility] Work Phone: Start: 09-09-2015 End: 09-30-2015 *Hepatic Function Panel *Hepatic Function Panel [facility] Work Phone: Start: 09-09-2015 End: 09-30-2015 BNP *Brain Natriuretic Peptide BNP [facility] Work Phone: Start: 09-09-2015 End: 10-09-2016 Chest x-ray X-Ray, Chest, PA & Lateral [facility] Work Phone: Start: 09-09-2015 End: 09-30-2016 Follow Up Appt 1 month Follow Up Appt 1 month [facility] Work Phone: Start: 09-09-2015 End: 09-09-2015 Follow Up Appt 6 months Follow Up Appt 6 months [facility] Work Phone: Start: 09-09-2015 End: 09-30-2015 Lipid panel [AGGREGATE] *Lipid Profile CC PCP [facility] Work Phone: Start: 09-09-2015 End: 09-30-2016 Pacer Clinic [facility] Work Phone: Start: 09-09-2015 End: 09-09-2015 PFM PFM [facility] Work Phone: Start: 09-09-2015 End: 09-30-2015 Basic metabolic 2000 panel - Serum or Plasma *BMP [facility] Work Phone: Start: 09-09-2015 End: 09-30-2015 CBC W Auto Differential panel - Blood *CBC with Differential [facility] Work Phone: Start: 09-09-2015 End: 10-09-2016 Chest x-ray X-Ray, Chest, PA & Lateral [facility] Work Phone: Start: 09-09-2015 End: 09-30-2016 Follow Up Appt 1 month Follow Up Appt 1 month [facility] Work Phone: Start: 09-09-2015 End: 09-09-2015 Follow Up Appt 6 months Follow Up Appt 6 months [facility] Work Phone: Start: 09-09-2015 End: 09-30-2015 Hepatic function 2000 panel - Serum or Plasma *Hepatic Function Panel [facility] [employer] Work Phone: Start: 09-09-2015 End: 09-30-2015 Lipid 1996 panel - Serum or Plasma *Lipid Profile CC PCP [facility] Work Phone: Start: 09-09-2015 End: 09-30-2015 Natriuretic peptide B [Mass/volume] in Blood *Brain Natriuretic Peptide BNP [facility] Work Phone: Start: 09-09-2015 End: 09-30-2016 Pacer Clinic Pacer [facility] [employer] Work Phone: Start: 09-09-2015 End: 09-09-2015 PFM PFM [facility] [employer] Work Phone: Start: 05-06-2015 End: 09-03-2015 Follow Up Appt 3 months Follow Up Appt 3 months [facility] [employer] Work Phone: Start: 05-06-2015 End: 09-03-2015 Pacer Clinic Pac[facility] [employer] Work Phone: Start: 05-06-2015 End: 09-03-2015 Follow Up Appt 3 months Follow Up Appt 3 months [facility] Work Phone: Start: 05-06-2015 End: 09-03-2015 Pacer Clinic Pac[facility] [employer] Work Phone: Start: 04-01-2015 End: 09-09-2015 *Hepatic Function Panel *Hepatic Function Panel [facility] Work Phone: Start: 04-01-2015 End: 09-09-2015 Lipid panel [AGGREGATE] *Lipid Profile CC PCP [facility] [employer] Work Phone: Start: 04-01-2015 End: 09-09-2015 Hepatic function 2000 panel - Serum or Plasma *Hepatic Function Panel [facility] [employer] Work Phone: Start: 04-01-2015 End: 09-09-2015 Lipid 1996 panel - Serum or Plasma *Lipid Profile CC PCP [facility] Work Phone: Start: 03-04-2015 End: 03-04-2015 Follow Up Appt 6 months Follow Up Appt 6 months [facility] Work Phone: Start: 03-04-2015 End: 03-04-2015 MMM MMM [facility] Work Phone: Start: 03-04-2015 End: 03-04-2015 Follow Up Appt 6 months Follow Up Appt 6 months [facility] Work Phone: Start: 03-04-2015 End: 03-04-2015 MMM MMM [facility] Work Phone: Start: 01-16-2015 End: 09-03-2015 Follow Up Appt 3 months Follow Up Appt 3 months [facility] Work Phone: Start: 01-16-2015 End: 09-03-2015 Pacer Clinic Pacer Clinic [facility] Work Phone: Start: 01-16-2015 End: 09-03-2015 Follow Up Appt 3 months Follow Up Appt 3 months [facility] Work Phone: Start: 01-16-2015 End: 09-03-2015 Pacer Clinic Pacer Clinic [facility] Work Phone: Start: 11-30-2014 End: 11-30-2014 Follow Up Appt Other Follow Up Appt Other [facility] Work Phone: Start: 11-30-2014 End: 11-30-2014 PFM PFM [facility] Work Phone: Start: 11-30-2014 End: 11-30-2014 Follow Up Appt Other Follow Up Appt Other [facility] Work Phone: Start: 11-30-2014 End: 11-30-2014 PFM PFM [facility] Work Phone: Start: 11-29-2014 End: 11-29-2014 *BMP *BMP [facility] Work Phone: Start: 11-29-2014 End: 11-29-2014 Basic metabolic 2000 panel - Serum or Plasma *BMP [facility] Work Phone: Start: 11-14-2014 End: 11-15-2014 *BMP *BMP [facility] Work Phone: Start: 11-14-2014 End: 11-15-2014 *CBC with Differential *CBC with Differential [facility] Work Phone: Start: 11-14-2014 End: 11-15-2014 BNP *Brain Natriuretic Peptide BNP [facility] Work Phone: Start: 11-14-2014 End: 11-15-2014 Chest x-ray X-Ray, Chest, PA & Lateral [facility] Work Phone: Start: 11-14-2014 End: 11-14-2014 Follow up Appt 3 weeks Follow up Appt 3 weeks [facility] Work Phone: Start: 11-14-2014 End: 11-14-2014 MMM MMM [facility] Work Phone: Start: 11-14-2014 End: 11-15-2014 Basic metabolic 2000 panel - Serum or Plasma *BMP [facility] Work Phone: Start: 11-14-2014 End: 11-15-2014 CBC W Auto Differential panel - Blood *CBC with Differential [facility] Work Phone: Start: 11-14-2014 End: 11-15-2014 Chest x-ray X-Ray, Chest, PA & Lateral [facility] Work Phone: Start: 11-14-2014 End: 11-14-2014 Follow up Appt 3 weeks Follow up Appt 3 weeks [facility] Work Phone: Start: 11-14-2014 End: 11-14-2014 MMM MMM [facility] Work Phone: Start: 11-14-2014 End: 11-15-2014 Natriuretic peptide B [Mass/volume] in Blood *Brain Natriuretic Peptide BNP [facility] Work Phone: Start: 10-16-2014 End: 11-14-2014 Follow Up Appt 3 months Follow Up Appt 3 months [facility] Work Phone: Start: 10-16-2014 End: 11-14-2014 Pacer Clinic Pacer Clinic [facility] Work Phone: Start: 10-16-2014 End: 11-14-2014 Follow Up Appt 3 months Follow Up Appt 3 months [facility] Work Phone: Start: 10-16-2014 End: 11-14-2014 Pacer Clinic Pacer Clinic [facility] Work Phone: Start: 09-03-2014 End: 10-01-2014 *Hepatic Function Panel *Hepatic Function Panel [facility] Work Phone: Start: 09-03-2014 End: 09-03-2014 Ecg routine ecg w/least 12 lds w/i&r EKG (In office) [facility] [employer] Work Phone: Start: 09-03-2014 End: 09-03-2014 Follow Up Appt Other Follow Up Appt Other [facility] Work Phone: Start: 09-03-2014 End: 10-01-2014 Lipid panel [AGGREGATE] *Lipid Profile CC PCP [facility] Work Phone: Start: 09-03-2014 End: 09-03-2014 PFM PFM [facility] Work Phone: Start: 09-03-2014 End: 09-03-2014 Ecg routine ecg w/least 12 lds w/i&r EKG (In office) [facility] Work Phone: Start: 09-03-2014 End: 09-03-2014 Follow Up Appt Other Follow Up Appt Other [facility] Work Phone: Start: 09-03-2014 End: 10-01-2014 Hepatic function 2000 panel - Serum or Plasma *Hepatic Function Panel [facility] Work Phone: Start: 09-03-2014 End: 10-01-2014 Lipid 1996 panel - Serum or Plasma *Lipid Profile CC PCP [facility] Work Phone: Start: 09-03-2014 End: 09-03-2014 PFM PFM [facility] Work Phone: Start: 07-03-2014 End: 08-23-2014 Follow Up Appt 3 months Follow Up Appt 3 months [facility] Work Phone: Start: 07-03-2014 End: 08-23-2014 Pacer Clinic Pacer Clinic [facility] Work Phone: Start: 07-03-2014 End: 08-23-2014 Follow Up Appt 3 months Follow Up Appt 3 months [facility] Work Phone: Start: 07-03-2014 End: 08-23-2014 Pacer Clinic Pacer Clinic [facility] Work Phone: Start: 04-04-2014 End: 07-03-2014 Follow Up Appt 3 months Follow Up Appt 3 months [facility] Work Phone: Start: 04-04-2014 End: 07-03-2014 Pacer Clinic Pacer Clinic [facility] Work Phone: Start: 04-04-2014 End: 07-03-2014 Follow Up Appt 3 months Follow Up Appt 3 months [facility] Work Phone: Start: 04-04-2014 End: 07-03-2014 Pacer Clinic Pacer Clinic [facility] Work Phone: Start: 03-02-2014 End: 10-01-2014 *Hepatic Function Panel *Hepatic Function Panel [facility] Work Phone: Start: 03-02-2014 End: 03-02-2014 Follow Up Appt 6 months Follow Up Appt 6 months [facility] Work Phone: Start: 03-02-2014 End: 10-01-2014 Lipid panel [AGGREGATE] *Lipid Profile CC PCP [facility] Work Phone: Start: 03-02-2014 End: 03-02-2014 MMM MMM [facility] Work Phone: Start: 03-02-2014 End: 03-02-2014 Follow Up Appt 6 months Follow Up Appt 6 months [facility] Work Phone: Start: 03-02-2014 End: 10-01-2014 Hepatic function 2000 panel - Serum or Plasma *Hepatic Function Panel [facility] Work Phone: Start: 03-02-2014 End: 10-01-2014 Lipid 1996 panel - Serum or Plasma *Lipid Profile CC PCP [facility] Work Phone: Start: 03-02-2014 End: 03-02-2014 MMM MMM [facility] [employer] Work Phone: Start: 01-30-2014 End: 08-23-2014 *Hepatic Function Panel *Hepatic Function Panel [facility] [employer] [facility] Work Phone: Start: 01-30-2014 End: 08-23-2014 Lipid panel [AGGREGATE] *Lipid Profile CC PCP [facility] [employer] Work Phone: Start: 01-30-2014 End: 08-23-2014 Hepatic function 2000 panel - Serum or Plasma *Hepatic Function Panel [facility] [employer] Work Phone: Start: 01-30-2014 End: 08-23-2014 Lipid 1996 panel - Serum or Plasma *Lipid Profile CC PCP [facility] [employer] Work Phone: Start: 12-26-2013 End: 07-03-2014 Follow Up Appt 3 months Follow Up Appt 3 months [facility] Work Phone: Start: 12-26-2013 End: 07-03-2014 Pacer Clinic Pacer Clinic [facility] Work Phone: Start: 12-26-2013 End: 07-03-2014 Follow Up Appt 3 months Follow Up Appt 3 months [facility] Work Phone: Start: 12-26-2013 End: 07-03-2014 Pacer Clinic Pacer Clinic [facility] Work Phone: Start: 08-17-2013 End: 12-18-2013 Follow Up Appt 3 months Follow Up Appt 3 months [facility] Work Phone: Start: 08-17-2013 End: 12-18-2013 Pacer Clinic Pacer Clinic [facility] Work Phone: Start: 08-17-2013 End: 12-18-2013 Follow Up Appt 3 months Follow Up Appt 3 months [facility] Work Phone: Start: 08-17-2013 End: 12-18-2013 Pacer Clinic Pacer Clinic [facility] Work Phone: Start: 08-04-2013 End: 08-18-2013 *Hepatic Function Panel *Hepatic Function Panel [facility] Work Phone: Start: 08-04-2013 End: 08-04-2013 Device Interrogation Device Interrogation [facility] Work Phone: Start: 08-04-2013 End: 08-04-2013 Follow Up Appt 6 months Follow Up Appt 6 months [facility] Work Phone: Start: 08-04-2013 End: 08-18-2013 Lipid panel [AGGREGATE] *Lipid Profile CC PCP [facility] Work Phone: Start: 08-04-2013 End: 08-04-2013 PFM PFM [facility] Work Phone: Start: 08-04-2013 End: 08-04-2013 Device Interrogation Device Interrogation [facility] Work Phone: Start: 08-04-2013 End: 08-04-2013 Follow Up Appt 6 months Follow Up Appt 6 months [facility] Work Phone: Start: 08-04-2013 End: 08-18-2013 Hepatic function 2000 panel - Serum or Plasma *Hepatic Function Panel [facility] Work Phone: Start: 08-04-2013 End: 08-18-2013 Lipid 1996 panel - Serum or Plasma *Lipid Profile CC PCP [facility] Work Phone: Start: 08-04-2013 End: 08-04-2013 PFM PFM [facility] Work Phone: Start: 05-19-2013 End: 08-04-2013 Follow Up Appt 3 months Follow Up Appt 3 months [facility] Work Phone: Start: 05-19-2013 End: 08-04-2013 Pacer Clinic Pacer Clinic [facility] Work Phone: Start: 05-19-2013 End: 08-04-2013 Follow Up Appt 3 months Follow Up Appt 3 months [facility] Work Phone: Start: 05-19-2013 End: 08-04-2013 Pacer Clinic Pacer Clinic [facility] Work Phone: Start: 03-20-2013 End: 08-04-2013 Follow Up Appt 6 months Follow Up Appt 6 months [facility] Work Phone: Start: 03-20-2013 End: 03-20-2013 Follow Up Appt Other Follow Up Appt Other [facility] Work Phone: Start: 03-20-2013 End: 08-04-2013 PFM PFM [facility] Work Phone: Start: 03-20-2013 End: 08-04-2013 Follow Up Appt 6 months Follow Up Appt 6 months [facility] Work Phone: Start: 03-20-2013 End: 03-20-2013 Follow Up Appt Other Follow Up Appt Other [facility] Work Phone: Start: 03-20-2013 End: 08-04-2013 PFM PFM [facility] Work Phone: Start: 02-15-2013 End: 03-20-2013 Follow Up Appt 3 months Follow Up Appt 3 months [facility] Work Phone: Start: 02-15-2013 End: 03-20-2013 Pacer Clinic Pacer Clinic [facility] Work Phone: Start: 02-15-2013 End: 03-20-2013 Follow Up Appt 3 months Follow Up Appt 3 months [facility] Work Phone: Start: 02-15-2013 End: 03-20-2013 Pacer Clinic Pacer Clinic [facility] Work Phone: Start: 01-30-2013 End: 03-20-2013 *Hepatic Function Panel *Hepatic Function Panel [facility] Work Phone: Start: 01-30-2013 End: 03-20-2013 Lipid panel [AGGREGATE] *Lipid Profile [facility] Work Phone: Start: 01-30-2013 End: 03-20-2013 Thyroid stimulating hormone (TSH) *TSH [facility] Work Phone: Start: 01-30-2013 End: 08-17-2012 Thyroxine (T4) *T4 (Total) [facility] Work Phone: Start: 01-30-2013 End: 03-20-2013 Hepatic function 2000 panel - Serum or Plasma *Hepatic Function Panel [facility] Work Phone: Start: 01-30-2013 End: 03-20-2013 Lipid 1996 panel - Serum or Plasma *Lipid Profile [facility] Work Phone: Start: 01-30-2013 End: 03-20-2013 Thyrotropin [Units/volume] in Serum or Plasma *TSH [facility] Work Phone: Start: 01-30-2013 End: 08-17-2012 Thyroxine (T4) [Mass/volume] in Serum or Plasma *T4 (Total) [facility] Work Phone: Start: 10-01-2012 End: 03-20-2013 *Hepatic Function Panel *Hepatic Function Panel [facility] Work Phone: Start: 10-01-2012 End: 03-20-2013 Lipid panel [AGGREGATE] *Lipid Profile [facility] Work Phone: Start: 10-01-2012 End: 03-20-2013 Hepatic function 2000 panel - Serum or Plasma *Hepatic Function Panel [facility] Work Phone: Start: 10-01-2012 End: 03-20-2013 Lipid 1996 panel - Serum or Plasma *Lipid Profile [facility] Work Phone: Start: 08-10-2012 End: 08-17-2012 *BMP *BMP [facility] [employer] Work Phone: Start: 08-10-2012 End: 03-20-2013 *CBC with Differential *CBC with Differential [facility] [employer] Work Phone: Start: 08-10-2012 End: 08-10-2012 Ecg routine ecg w/least 12 lds w/i&r EKG (In office) [facility] Work Phone: Start: 08-10-2012 End: 08-10-2012 Follow Up Appt 6 months Follow Up Appt 6 months [email or web address] Work Phone: Start: 08-10-2012 End: 08-17-2012 Magnesium *Magnesium [facility] Work Phone: Start: 08-10-2012 End: 08-17-2012 Thyroid stimulating hormone (TSH) *TSH [facility] Work Phone: Start: 08-10-2012 End: 08-17-2012 Thyroxine (T4) *T4 (Total) [facility] Work Phone: Start: 08-10-2012 End: 08-17-2012 Basic metabolic 2000 panel - Serum or Plasma *BMP [facility] [employer] Work Phone: Start: 08-10-2012 End: 03-20-2013 CBC W Auto Differential panel - Blood *CBC with Differential [facility] [employer] Work Phone: Start: 08-10-2012 End: 08-10-2012 Ecg routine ecg w/least 12 lds w/i&r EKG (In office) [facility] [employer] Work Phone: Start: 08-10-2012 End: 08-10-2012 Follow Up Appt 6 months Follow Up Appt 6 months [facility] [employer] Work Phone: Start: 08-10-2012 End: 08-17-2012 Magnesium [Mass/volume] in Serum or Plasma *Magnesium [facility] Work Phone: Start: 08-10-2012 End: 08-17-2012 Thyrotropin [Units/volume] in Serum or Plasma *TSH [facility] Work Phone: Start: 08-10-2012 End: 08-17-2012 Thyroxine (T4) [Mass/volume] in Serum or Plasma *T4 (Total) [facility] Work Phone: Start: 05-02-2012 End: 05-02-2012 *Hepatic Function Panel *Hepatic Function Panel [email or web address] Work Phone: Start: 05-02-2012 End: 05-02-2012 Ecg routine ecg w/least 12 lds w/i&r EKG (In office) [facility] Work Phone: Start: 05-02-2012 End: 05-02-2012 Echocardiography Echocardiogram (complete) [facility] Work Phone: Start: 05-02-2012 End: 05-02-2012 Follow Up Appt 6 months Follow Up Appt 6 months [email or web address] Work Phone: Start: 05-02-2012 End: 05-02-2012 Lipid panel [AGGREGATE] *Lipid Profile [facility] Work Phone: Start: 05-02-2012 End: 05-02-2012 Nuclear stress test -adenosine Nuclear stress test -adenosine [facility] Work Phone: Start: 05-02-2012 End: 05-02-2012 Ecg routine ecg w/least 12 lds w/i&r EKG (In office) [facility] Work Phone: Start: 05-02-2012 End: 05-02-2012 Echocardiography Echocardiogram (complete) [facility] Work Phone: Start: 05-02-2012 End: 05-02-2012 Follow Up Appt 6 months Follow Up Appt 6 months [email or web address] Work Phone: Start: 05-02-2012 End: 05-02-2012 Hepatic function 2000 panel - Serum or Plasma *Hepatic Function Panel [facility] Work Phone: Start: 05-02-2012 End: 05-02-2012 Lipid 1996 panel - Serum or Plasma *Lipid Profile [facility] Work Phone: Start: 05-02-2012 End: 05-02-2012 Nuclear stress test -adenosine Nuclear stress test -adenosine [facility] Work Phone: Start: 01-06-2001 ADVANCE DIRECTIVE DISCUSSION ADVANCE DIRECTIVE DISCUSSION [facility] Start: 01-06-1986 SHINGRIX VACCINE (1 of 2) SHINGRIX VACCINE (1 of [address]) [facility] Start: 01-06-1955 Urine microalbumin profile DTAP,TDAP,TD (1 - Tdap) [facility] Patient Education HYPERLIPIDEMIA , HYPERTENSION [facility] Work Phone: Immunizations Immunization Date Immunization Notes Care Provider Fa cili 08-31-2008 influenza virus vacc ine, unspecified formulation Marino Roque Work Phone: [facility] 08-31-2008 pneumococcal polysaccharide vaccine, 23 valent Marino Roque Work Phone: [facility] Social History Date Type Detail Facility Start: 06-12-2010 Tobacco smoking stat us [facility] Never smoker [facility] Start: 06-12-2010 Alcohol intake Current non-dr cigarette roller of alcohol (finding) [facility] Start: 1935 Sex Assigned At Not on file [facility] Medical Equipment Procedure Code Equipment Code Equipment Origin al Text Equipment Identifier Dates Laser Equipment (Contracted) - [id number] Start: 02-01-2014 Fall risk assessment 04-12-2017 Note Date & Type Note Facility Advance Directives Documents on File Type Date Recorded Patient Library Clerical Assistant Expl anation Advance Directive(s) 06/10/2016 3:34 PM Additional Source Comments Source Comments (unrecognize d section and content) In the event this informatio n is protected by the Federal Confidentiality of Alcohol and Drug Abuse Patient Records regulations: The Federal rules restrict any use of the information to criminally investigate or prosecute any alcohol or drug abuse patient.[facility] Reason for Visit (unrecogniz ed section and content) FOR RECORDS PERTAINING TO PATIENTS WHO ARE OR HAVE BEEN ENROLLED IN A CHEMICAL DEPENDENCY/SUBSTANCEABUSE PROGRAM, SOME INFORMATION MAY BE OMITTED. This clinical summary was aggregated from multiple sources. Caution should be exercised in using it in the provision of clinical care. This summary normalizes information from multiple sources, and as a consequence, information in this document may materially change the coding, format and clinical context of patient data. In addition, data may be omitted in some cases. CLINICAL DECISIONS SHOULD BE BASED ON THE PRIMARY CLINICAL RECORDS. [facility]. provides no warranty or guarantee of the accuracy or completeness of information in this document.
[2023-10-20] MEDS: Lactated Ringers 1,000 ML 15 ML IV (11:55)
--- NOTE | 2023-10-20 13:06 | PCM.HP.STD ---
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 Dyspnea Easy bruising Eczema Elevated troponin Essential hypertension Excessive bleeding Family history of CVA Family history of hypertension Fatigue FH: sudden cardiac (SCD) General weakness GERD (gastroesophageal reflux disease) High cholesterol High risk medication use History of CHF (congestive heart failure) History of echocardiogram History of heart attack History of placement of internal cardiac defibrillator History of stress test HLD (hyperlipidemia) HTN (hypertension) Hypokalemia Implantable cardioverter-defibrillator (ICD) at end of battery life Iron deficiency anemia Non-smoker Old myocardial infarction Orchitis of right testicle Otitis media Presence of stent in coronary artery (~12/28/18) Pure hypercholesterolemia SBO (small bowel obstruction) Sepsis Wears glasses Home Medications aspirin 81 mg chewable tablet 81 mg PO DAILY heart health 03/05/16 [History Last Taken 10/09/23] nitroglycerin 0.4 mg sublingual tablet 0.4 mg sublingual Q5M PRN Chest Pain #25 tabs 02/17/22 [Rx Last Taken Unknown] finasteride 5 mg tablet 5 mg PO DAILY 03/05/22 [History Last Taken 10/20/23] tamsulosin 0.4 mg capsule 0.4 mg PO DAILY 03/05/22 [History Last Taken 10/19/23] furosemide 20 mg tablet 20 mg PO Q OTHER DAY PRN edema 08/05/22 [History Last Taken Unknown] clopidogrel 75 mg tablet 75 mg PO DAILY #90 tabs 03/04/23 [Rx Last Taken 10/09/23] carvedilol 3.125 mg tablet 3.125 mg PO BID #180 tabs 06/17/23 [Rx Last Taken 10/20/23] simvastatin 20 mg tablet See Rx Instructions .Route .COMPLEX #90 tabs 09/13/23 [Rx Last Taken Unknown] DUPIXANT 300 mg IM .Q2W 10/11/23 [History Last Taken Unknown] sacubitril 49 mg-valsartan 51 mg tablet (Entresto) 1 tab PO BID #180 tabs 10/13/23 [Rx Last Taken 10/20/23] Allergy/AdvReac Type Severity Reaction Status Date / Time morphine Allergy Intermediate Rash Verified 10/20/23 11:48 zolpidem tartrate AdvReac Intermediate CONFUSION Verified 10/20/23 11:48 [From Ambien] Family History (Updated 07/09/23 @ 13:38 by Alexia Hendricks) Mother CAD (coronary artery disease) CVA (cerebral vascular accident) Myocardial infarction, Onset Age: 67 Hypertension Brother CAD (coronary artery disease) Hypertension Cancer Lung CA Myocardial infarction, Onset Age: 73 Father Myocardial infarction, Onset Age: 77 Daughter Cancer Son Myocardial infarction, Onset Age: 46 Other Cardiomyopathy, ischemic Chronic systolic congestive heart failure Fatigue General weakness Iron deficiency anemia Surgical History History of cardiac catheterization History of hernia repair History of left heart catheterization History of prostate surgery Hx of colonoscopy Hx of surgical procedure Presence of coronary artery bypass graft stent (~12/28/18) S/P TURP (status post transurethral resection of prostate) Social History household members: spouse Smoking Status: Never smoker alcohol intake: never substance use type: does not use caffeine: Yes Type: carbonated beverages and coffee Number of servings: 1 what type of physical activity do you participate in: none seatbelt use: always do you feel safe at home: Yes Vital Signs Vital Signs Vital Signs: 10/20/23 11:50 10/20/23 11:55 Temperature 98.1 F Temperature Source Temporal Pulse Rate 59 L Respiratory Rate 16 Respiratory Pattern Normal Blood Pressure 141/54 H Blood Pressure Mean 83 Blood Pressure Source Monitor Blood Pressure Position Semi-Fowlers Blood Pressure Location Left Arm Pulse Ox 100 Oxygen Delivery Method Room Air Weight Weight: 53 kg Body Mass Index (BMI) 20.7
--- NOTE | 2023-10-20 13:07 | DCINST_ITS ---
Discharge Instructions Diet Discharge Diet: No restrictions Activity Discharge Activity: Return to Normal Activity and May Not Drive (while taking narcotic pain medications.) Dressing / Incision Call your doctor if you observe: Fever of 101 or Higher Follow Up Care Please Follow Up With: Faisal Barth MD When: Call [phone] for an appointment Test Results: Test results from this visit will be discussed in further detail at your follow- up appointment, if applicable. Discharge Plan Admission Attending Provider: Faisal Barth Primary Care Provider: Terry Mckeon Discharge Orders/Prescriptions Prescriptions: No Action furosemide 20 mg tablet 20 mg PO Q OTHER DAY PRN (Reason: edema) tamsulosin 0.4 mg capsule 0.4 mg PO DAILY finasteride 5 mg tablet 5 mg PO DAILY Patient Comments: TAKE 1 TABLET BY MOUTH ONCE DAILY aspirin 81 MG tablet,chewable 81 mg PO DAILY Hold Instructions: PREOP DUPIXANT 300 mg IM .Q2W nitroglycerin 0.4 mg tablet, sublingual 0.4 mg SUBLINGUAL Q5M PRN (Reason: Chest Pain) Qty: 25 3RF clopidogrel 75 mg tablet 75 mg PO DAILY Qty: 90 3RF Hold Instructions: PREOP Rx Instructions: prevent clotting carvedilol 3.125 mg tablet 3.125 mg PO BID Qty: 180 3RF Rx Instructions: must administer with a meal/food simvastatin 20 mg tablet See Rx Instructions .ROUTE .COMPLEX Qty: 90 3RF Dose Instruction: TAKE 1 TABLET BY MOUTH AT BEDTIME FOR CHOLESTEROL Rx Instructions: TAKE 1 TABLET BY MOUTH AT BEDTIME FOR CHOLESTEROL Entresto 49-51 mg tablet 1 tab PO BID Qty: 180 4RF Other Ambulatory Orders: 12 Lead EKG (Routine) Timeframe: 20231012 Location: None Selected Ordered By: Dr. Zacarias Valdes Referrals / Follow Up: Terry Mckeon DO [Primary Care Provider] - Disposition Disposition (needs filled in before D/C Order can be placed): Home, Self Care
--- NOTE | 2023-10-20 13:10 | PROS_PTH ---
PATHOLOGY RESULTS PATIENT: JORGE GUZMÁN LOC: [facility] U#:[id number] AGE/SX: 88/M ROOM: IA317 RE10/20/[address]: Dr. Faisal Barth MD : [id number] BED: 1 DIS: 10/22/2023 SPEC #: [id number] RECD: 10/21/23 09:20 STATUS: ALIVIA GOGO #: [id number] GAI: 10/20/23 13:[address]: Faisal Barth DEPT: SURGICAL PATHOLOGY RECD BY: Maria Eugenia Mandujano ENTERED: 10/21/23 09:21 SP TYPE: TURP OTHR DR: Dr. Terry Mckeon, DO Tissues: Prostate, NOS Procedures: Surgery Specimen Level IV HEADER OPERATION: Transurethral resection of prostate with Olympus PRE-OP DIAGNOSIS: Benign prostatic hyperplasia with obstruction TISSUE SUBMITTED: Prostate chips MICROSCOPIC DIAGNOSIS Prostate chips, transurethral resection: Benign prostatic hyperplasia. Chronic inflammation. NIYA:esequiel 10/22/2023 MICROSCOPIC DESCRIPTION Slides are reviewed. GROSS DESCRIPTION Received is one container labeled with the patient's name and designated prostate chips. The specimen consists of multiple irregular fragments of pink-taylor, rubbery, soft tissue that in aggregate weigh 2.2 gm and measure in aggregate 5.0 x 3.0 x 0.3 cm. The entire specimen is submitted in two cassettes. / NIYA:esequiel 10/21/2023 TC:5 CPT: 82793
[2023-10-20] MEDS: Cefazolin 2 GM in 0.9% Normal Saline (100mL Bag) 100 ML IV (13:32)
--- NOTE | 2023-10-20 14:08 | PCM.OPRPT ---
Report of Operation Date of Procedure: 10/20/23 Pre-Operative Diagnosis: BPH with obstruction and regrowth of prostate Post-Operative Diagnosis: Same Surgery/Procedure Performed:: Transurethral section of prostate Description of Surgical Findings:: Patient was taken back to the operating room at this with induction of anesthesia he was placed in dorsolithotomy position. The Rod catheter was removed went into the bladder with a 26 Micronesian noncontinuous flow resectoscope inside the prostatic channel there was some regrowth coming from both sides is causing some mild obstruction he does have a stretched out weak looking bladder and I think with his mild obstruction it was causing him not to empty his bladder so I resected this tissue tissue in front of the verumontanum all the way circumferentially had a wide open channel to the flow test had a wide open flow I then removed all the chips out of the bladder and put a 22 Micronesian catheter into the bladder for continuous irrigation and was taken back to the PACU in good condition will continue will continue irrigation for the next day or 2 Surgeon: Faisal Barth Type of Anesthesia: General Drains: 22fr [address]
--- OUTSIDE RECORDS SUMMARY | 2023-10-20 15:22 | XMS RPT_ITS | CCD ---
Author Name Unknown Address [address] [place] [address] Organization [facility] Care Team Providers Care Binder Lockstitch Name Role Phone TERESITA Grubbs, Elsy Denis Unavailable Unavailable TERESITA Grubbs, Elsy Denis Unavailable Unavailable Yaritza Gibson Primary Care Provider [phone] Pcp, No Primary Care Provider Unavaildante e Merrill Ross Primary Care Provider [phone] Terry Cleveland Primary Care Provider TERESITA Grubbs, Elsy Denis Unavailable Unavailable TERESITA Grubbs, Elsy Denis Unavailable Unavailable TERESITA Grubbs, Elsy Denis Unavailable Unavailable Viveros, Leonora M Unavailable Unavailable Viveros, Leonora M Unavailable Unavailable Maureen Forman Unavailable Unavailable Maureen Forman Unavailable Unavailable Malika LO, bAril Palomo Unavailable Robbi Abbott MD Unavailable Abril Daly RN Unavailable TERESITA Grubbs, Elsy Denis Unavailable Unavailable TERESITA Grubbs, Elsy Denis Unavailable Unavailable TERESITA Grubbs, Elsy Denis Unavailable Unavailable TERESITA Thomas, Adelaida Denis Unavailable Unavaildante brown Allergies Allergy Classification Reported Allergen(s) Allergy Type Date of Onset Reaction(s) Facility Opioid Agonists (1 source) Morphine Drug Allergy 03-06-[address] 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] Onset: 01-13-2011 01-13-2011 Episodic [...] 11:35-0400 Body height 160.02 cm Maureen Dasia [employer] Work Phone: 05-24-2017 11:35-0400 Body mass index (BMI) [Ratio] 23.82 kg/m2 [employer] Dasia [employer] Work Phone: 05-24-2017 11:35-0400 Body weight 61.01 kg Maureen Forman [employer] Work Phone: 05-24-2017 11:35-0400 Diastolic blood pressure 58 mm[Hg] Brunoradha Dasia [facility] Work Phone: 05-24-2017 11:35-0400 Heart rate 54 /min Fanatic[employer]kurt Forman [employer] Work Phone: 05-24-2017 11:35-0400 Respiratory rate 20 /min Fanaticallkurt Forman [employer] Work Phone: 05-24-2017 11:35-0400 Systolic blood pressure 116 mm[Hg] Fanaticallkurt Forman [employer] Work Phone: 05-24-2017 11:35-0400 Weight 61.01 kg Elsy Grubbs RN [employer] Work Phone: 04-12-2017 13:39-0400 Body height 160.02 cm [employer] Work Phone: 04-12-2017 13:39-0400 Body mass index (BMI) [Ratio] 23.45 kg/m2 [employer] Work Phone: 04-12-2017 13:39-0400 Body weight 60.06 kg Leonora Felice [facility] Work Phone: 04-12-2017 13:39-0400 Diastolic blood pressure 50 mm[Hg] [facility] Work Phone: 04-12-2017 13:39-0400 Heart rate 52 /min [facility] Work Phone: 04-12-2017 13:39-0400 Respiratory rate 16 /min [facility] Work Phone: 04-12-2017 13:39-0400 Systolic blood pressure 110 mm[Hg] [facility] Work Phone: 04-12-2017 13:39-0400 Weight 60.06 kg TERESITA [facility] Work Phone: 10-09-2016 12:49-0500 Body mass index (BMI) [Ratio] 24.05 kg/m2 Elsy Grubbs RN [facility] Work Phone: 10-09-2016 12:49-0500 Body surface area Derived from formula 1.64 m2 Elsy Grubbs RN [facility] Work Phone: 10-09-2016 12:49-0500 Body weight 61.6 kg TERESITA [facility] Work Phone: 10-09-2016 12:49-0500 Diastolic blood pressure 72 mm[Hg] TERESITA [facility] Work Phone: 10-09-2016 12:49-0500 Heart rate 60 /min TERESITA [facility] Work Phone: 10-09-2016 12:49-0500 Respiratory rate 16 /min TERESITA [facility] Work Phone: 10-09-2016 12:49-0500 Systolic blood pressure 124 mm[Hg] TERESITA [facility] Work Phone: 11-14-2014 15:17-0500 Diastolic blood pressure 60 mm[Hg] Elsy Grubbs RN [facility] Work Phone: 11-14-2014 15:17-0500 Heart rate 60 /min Elsy Grubbs RN [facility] Work Phone: 11-14-2014 15:17-0500 Heart rate 64 /min Elsy Grubbs RN [facility] Work Phone: 11-14-2014 15:17-0500 Systolic blood pressure 98 mm[Hg] Elsy Grubbs RN [facility] Work Phone: 11-14-2014 15:17-0500 Systolic blood pressure 100 mm[Hg] Elsy Grubbs RN [facility] Work Phone: 08-10-2012 12:42-0400 SaO2% (BldA) [Mass fraction] 99 % Elsy Grubbs RN [facility] Work Phone: 05-02-2012 14:57-0400 Body height 160.02 cm Elsy Grubbs RN [facility] Work Phone: 08-04-2010 11:15-0400 Body temperature 98.4 [degF] Elsy Grubbs RN [facility] Work Phone: Encounters Encounter Date Encounter [...] dual lead dfb Robbi Abbott MD Start: 10-02-2015 End: 09-30-2016 Follow [...] eval implantable in prsn dual lead dfb oRbbi Abbott MD Start: 05-06-2015 End: 09-03-2015 Follow [...] function 2000 panel - Serum or Plasma Robib Abbott MD Start: 03-02-2014 End: 10-01-2014 Lipid [...] Start: 07-02-2021 Influenza vaccination INFLUENZA (Season Ended) [facility] Start: 03-05-2019 DIABETES SCREEN DIABETES SCREEN [facility] Start: 12-29-2017 End: 12-29-2017 Appointment Appointment [facility] Work Phone: Start: 10-22-2017 End: 10-22-2017 Appointment Appointment [facility] Work Phone: Start: 09-27-2017 End: 09-28-2017 Follow Up Appt 3 months Follow Up Appt 3 months [facility] Work Phone: Start: 09-27-2017 End: 09-28-2017 [facility] Clinic [facility] Work Phone: Start: 09-27-2017 End: 09-27-2017 Patient encounter procedure Appointment [facility] Work Phone: Start: 09-27-2017 End: 10-13-2017 Follow Up Appt 3 months Follow Up Appt 3 months [facility] Work Phone: Start: 09-27-2017 End: 10-13-2017 Pacer Clinic [facility] Work Phone: Start: 06-28-2017 End: [...] 06-28-2017 End: 10-13-2017 Pacer Clinic [facility] Work Phone: Start: 05-24-2017 End: 05-24-2017 Follow Up Appt Other Follow Up Appt Other [facility] Work Phone: Start: 05-24-2017 End: 05-24-2017 MMM MMM [facility] Work Phone: Start: 05-24-2017 End: 05-24-2017 Nuclear stress test -Lexiscan Nuclear stress test -Lexiscan [facility] Work Phone: Start: 05-24-2017 End: 05-24-2017 PFM PFM [facility] Work Phone: Start: 05-24-2017 End: 05-24-2017 Patient encounter procedure Appointment [facility] Work Phone: Start: 05-24-2017 End: 05-24-2017 Follow Up Appt Other Follow Up Appt Other [facility] Work Phone: Start: 05-24-2017 End: 05-24-2017 MMM MMM [facility] Work Phone: Start: 05-24-2017 End: 05-24-2017 Nuclear stress test -Lexiscan Nuclear stress test -Lexiscan [facility] Work Phone: Start: 05-24-2017 End: 05-24-2017 PFM PFM [facility] Work Phone: Start: 04-12-2017 End: [...] 6 months Follow Up Appt 6 months [facility] Work Phone: Start: 04-12-2017 End: 10-13-2017 Follow Up Appt Other Follow Up Appt Other [facility] Work Phone: Start: 04-12-2017 [...] 3 months Follow Up Appt 3 months [facility] Work Phone: Start: 12-17-2016 End: 12-17-2016 Pacer Clinic [facility] Work Phone: Start: 12-17-2016 End: 10-13-2017 Follow Up Appt 3 months Follow Up Appt 3 months [facility] Work Phone: Start: 12-17-2016 End: 10-13-2017 Pacer Clinic [facility] Work Phone: Start: 10-09-2016 End: 10-12-2016 *BMP *BMP [facility] Work Phone: Start: 10-09-2016 End: 10-09-2016 *CBC with Differential *CBC with Differential [facility] Work Phone: Start: 10-09-2016 End: 10-09-2016 BNP *Brain Natriuretic Peptide BNP [facility] Work Phone: Start: 10-09-2016 End: 10-12-2016 Chest x-ray X-Ray, Chest, PA & Lateral [facility] Work Phone: Start: 10-09-2016 End: 10-09-2016 Follow Up Appt Other Follow Up Appt Other [facility] Work Phone: Start: 10-09-2016 End: 10-12-2016 Thyroid stimulating hormone (TSH) *TSH [facility] Work Phone: Start: 10-09-2016 End: 10-12-2016 Thyroxine (T4) *T4 (Total) [facility] Work Phone: Start: 10-09-2016 End: 10-12-2016 Basic metabolic 2000 panel - Serum or Plasma *BMP [facility] Work Phone: Start: 10-09-2016 End: 10-09-2016 CBC W Auto Differential panel - Blood *CBC with Differential [facility] Work Phone: Start: 10-09-2016 End: 10-12-2016 Chest x-ray X-Ray, Chest, PA & Lateral [facility] Work Phone: Start: 10-09-2016 End: 10-09-2016 Follow Up Appt Other Follow Up Appt Other [facility] Work Phone: Start: 10-09-2016 End: 10-09-2016 Natriuretic peptide B [Mass/volume] in Blood *Brain Natriuretic Peptide BNP [facility] Work Phone: Start: 10-09-2016 End: 10-12-2016 Thyrotropin [Units/volume] in Serum or Plasma *TSH [facility] Work Phone: Start: 10-09-2016 End: 10-12-2016 Thyroxine (T4) [Mass/volume] in Serum or Plasma *T4 (Total) [facility] Work Phone: Start: 09-08-2016 End: 09-30-2016 Follow Up Appt 3 months Follow Up Appt 3 months [facility] Work Phone: Start: 09-08-2016 End: 09-30-2016 Pacer Clinic [facility] Work Phone: Start: 09-08-2016 End: 09-30-2016 Follow Up Appt 3 months Follow Up Appt 3 months [facility] Work Phone: Start: 09-08-2016 End: 09-30-2016 Pacer Clinic Pacer Clinic [facility] Work Phone: Start: 04-24-2016 End: 09-30-2016 Follow Up Appt 3 months Follow Up Appt 3 months [facility] Work Phone: Start: 04-24-2016 End: 09-30-2016 Pacer Clinic [facility] Work Phone: Start: 04-24-2016 End: 09-30-2016 Follow Up Appt 3 months Follow Up Appt 3 months [facility] Work Phone: Start: 04-24-2016 End: 09-30-2016 Pacer Clinic [facility] Work Phone: Start: 04-09-2016 End: [...] 2000 panel - Serum or Plasma *BMP [facility] Work Phone: Start: 04-09-2016 End: 04-08-2016 CBC W Auto Differential panel - Blood *CBC without Diff [facility] Work Phone: Start: 04-09-2016 End: 04-08-2016 INR in Platelet poor plasma by Coagulation assay *PT/INR [facility] Work Phone: Start: 04-09-2016 End: 04-08-2016 Pacemaker Generator Change Pacemaker Generator Change [facility] Work Phone: Start: 04-08-2016 End: 04-08-2016 *Hepatic Function Panel *Hepatic Function Panel [employer] Work Phone: Start: 04-08-2016 End: 04-08-2016 Ecg routine ecg w/least 12 lds w/i&r EKG (In office) [facility] Work Phone: Start: 04-08-2016 End: 04-08-2016 Follow Up Appt 6 months Follow Up Appt 6 months [facility] Work Phone: Start: 04-08-2016 End: 04-08-2016 Lipid panel [AGGREGATE] *Lipid Profile CC PCP [facility] Work Phone: Start: 04-08-2016 End: 04-08-2016 MMM MMM [facility] Work Phone: Start: 04-08-2016 End: 04-08-2016 Ecg routine ecg w/least 12 lds w/i&r EKG (In office) [facility] Work Phone: Start: 04-08-2016 End: 04-08-2016 Follow Up Appt 6 months Follow Up Appt 6 months [facility] Work Phone: Start: 04-08-2016 End: 10-13-2017 Hepatic function 2000 panel - Serum or Plasma *Hepatic Function Panel [facility] Work Phone: Start: 04-08-2016 End: 10-13-2017 Lipid 1996 panel - Serum or Plasma *Lipid Profile CC PCP [facility] Work Phone: Start: 04-08-2016 End: 04-08-2016 MMM MMM [facility] Work Phone: Start: 03-30-2016 End: 09-30-2016 *Hepatic Function Panel *Hepatic Function Panel [facility] Work Phone: Start: 03-30-2016 End: 09-30-2016 Lipid panel [AGGREGATE] *Lipid Profile CC PCP [facility] Work Phone: Start: 03-30-2016 End: 09-30-2016 Hepatic function 2000 panel - Serum or Plasma *Hepatic Function Panel [facility] Work Phone: Start: 03-30-2016 End: 09-30-2016 Lipid 1996 panel - Serum or Plasma *Lipid Profile CC PCP [facility] Work Phone: Start: 03-19-2016 End: 04-08-2016 Chest x-ray X-Ray, Chest, PA & Lateral [facility] Work Phone: Start: 03-19-2016 End: 09-30-2016 Ecg routine ecg w/least 12 lds w/i&r EKG (In office) [facility] Work Phone: Start: 03-19-2016 End: 04-08-2016 Chest x-ray X-Ray, Chest, PA & Lateral [facility] Work Phone: Start: 03-19-2016 End: 09-30-2016 Ecg routine ecg w/least 12 lds w/i&r EKG (In office) [facility] Work Phone: Start: 02-28-2016 End: 09-30-2016 Follow Up Appt 1 month Follow Up Appt 1 month [facility] Work Phone: Start: 02-28-2016 End: 09-30-2016 Pacer Clinic [facility] Work Phone: Start: 02-28-2016 End: 09-30-2016 Follow Up Appt 1 month Follow Up Appt 1 month [facility] Work Phone: Start: 02-28-2016 End: 09-30-2016 Pacer Clinic Pacer Clinic [facility] Work Phone: Start: 01-17-2016 End: 09-30-2016 Follow Up Appt 1 month Follow Up Appt 1 month [facility] Work Phone: Start: 01-17-2016 End: 09-30-2016 Pacer Clinic [facility] Work Phone: Start: 01-17-2016 End: [...] 3 months Follow Up Appt 3 months [facility] Work Phone: Start: 11-15-2015 End: 09-30-2016 Pacer Clinic [facility] Work Phone: Start: 10-02-2015 End: 09-30-2016 Follow Up Appt 1 month Follow Up Appt 1 month [facility] Work Phone: Start: 10-02-2015 End: 09-30-2016 Pacer Clinic Pacer Clinic [facility] Work Phone: Start: 10-02-2015 End: 09-30-2016 Follow Up Appt 1 month Follow Up Appt 1 month [facility] Work Phone: Start: 10-02-2015 End: 09-30-2016 Pacer Clinic Pacer Clinic [facility] Work Phone: Start: 09-09-2015 End: 09-30-2015 *BMP *BMP [facility] Work Phone: Start: 09-09-2015 End: 09-30-2015 *CBC with Differential *CBC with Differential [facility] Work Phone: Start: 09-09-2015 End: 09-30-2015 *Hepatic Function Panel *Hepatic Function Panel [facility] Work Phone: Start: 09-09-2015 End: 09-30-2015 BNP *Brain Natriuretic Peptide BNP [facility] Work Phone: Start: 09-09-2015 End: 10-09-2016 Chest x-ray X-Ray, Chest, PA & Lateral [facility] Work Phone: Start: 09-09-2015 End: 09-30-2016 Follow Up Appt 1 month Follow Up Appt 1 month [facility] Work Phone: Start: 09-09-2015 End: 09-09-2015 Follow Up Appt 6 months Follow Up Appt 6 months [facility] Work Phone: Start: 09-09-2015 End: 09-30-2015 Lipid panel [AGGREGATE] *Lipid Profile CC PCP [facility] Work Phone: Start: 09-09-2015 End: 09-30-2016 Pacer Clinic [facility] Work Phone: Start: 09-09-2015 End: 09-09-2015 PFM PFM [facility] Work Phone: Start: 09-09-2015 End: [...] 1 month Follow Up Appt 1 month [facility] Work Phone: Start: 09-09-2015 End: 09-09-2015 Follow Up Appt 6 months Follow Up Appt 6 months [facility] Work Phone: Start: 09-09-2015 End: 09-30-2015 Hepatic function 2000 panel - Serum or Plasma *Hepatic Function Panel [facility] Work Phone: Start: 09-09-2015 End: 09-30-2015 Lipid 1996 panel - Serum or Plasma *Lipid Profile CC PCP [facility] Work Phone: Start: 09-09-2015 End: 09-30-2015 Natriuretic peptide B [Mass/volume] in Blood *Brain Natriuretic Peptide BNP [facility] Work Phone: Start: 09-09-2015 End: 09-30-2016 Pacer Clinic [facility] Work Phone: Start: 09-09-2015 End: 09-09-2015 PFM PFM [facility] Work Phone: Start: 05-06-2015 End: 09-03-2015 Follow Up Appt 3 months Follow Up Appt 3 months [facility] Work Phone: Start: 05-06-2015 End: 09-03-2015 Pacer Clinic Pac[facility] Clinic [facility] Work Phone: Start: 05-06-2015 End: 09-03-2015 Follow Up Appt 3 months Follow Up Appt 3 months [facility] Work Phone: Start: 05-06-2015 End: 09-03-2015 Pacer Clinic Pac[facility] Clinic [facility] Work Phone: Start: 04-01-2015 End: 09-09-2015 *Hepatic Function Panel *Hepatic Function Panel [facility] Work Phone: Start: 04-01-2015 End: 09-09-2015 Lipid panel [AGGREGATE] *Lipid Profile CC PCP [facility] Work Phone: Start: 04-01-2015 End: 09-09-2015 Hepatic function 2000 panel - Serum or Plasma *Hepatic Function Panel [facility] Work Phone: Start: 04-01-2015 End: 09-09-2015 Lipid 1996 panel - Serum or Plasma *Lipid Profile CC PCP [facility] Work Phone: Start: 03-04-2015 End: 03-04-2015 Follow Up Appt 6 months Follow Up Appt 6 months [facility] Work Phone: Start: 03-04-2015 End: 03-04-2015 MMM MMM [facility] Work Phone: Start: 03-04-2015 End: 03-04-2015 Follow Up Appt 6 months Follow Up Appt 6 months [facility] Work Phone: Start: 03-04-2015 End: 03-04-2015 MMM MMM [facility] Work Phone: Start: 01-16-2015 End: 09-03-2015 Follow Up Appt 3 months Follow Up Appt 3 months [facility] Work Phone: Start: 01-16-2015 End: 09-03-2015 Pacer Clinic Pac[facility] Clinic [facility] Work Phone: Start: 01-16-2015 End: 09-03-2015 Follow Up Appt 3 months Follow Up Appt 3 months [facility] Work Phone: Start: 01-16-2015 End: 09-03-2015 Pacer Clinic Pacer Clinic [facility] Work Phone: Start: 11-30-2014 End: 11-30-2014 Follow Up Appt Other Follow Up Appt Other [facility] Work Phone: Start: 11-30-2014 End: 11-30-2014 PFM PFM [facility] Work Phone: Start: 11-30-2014 End: 11-30-2014 Follow Up Appt Other Follow Up Appt Other [facility] Work Phone: Start: 11-30-2014 End: 11-30-2014 PFM PFM [facility] Work Phone: Start: 11-29-2014 End: 11-29-2014 *BMP *BMP [facility] Work Phone: Start: 11-29-2014 End: 11-29-2014 Basic metabolic 2000 panel - Serum or Plasma *BMP [facility] Work Phone: Start: 11-14-2014 End: 11-15-2014 *BMP *BMP [facility] Work Phone: Start: 11-14-2014 End: 11-15-2014 *CBC with Differential *CBC with Differential [facility] Work Phone: Start: 11-14-2014 End: 11-15-2014 BNP *Brain Natriuretic Peptide BNP [facility] Work Phone: Start: 11-14-2014 End: 11-15-2014 Chest x-ray X-Ray, Chest, PA & Lateral [facility] Work Phone: Start: 11-14-2014 End: 11-14-2014 Follow up Appt 3 weeks Follow up Appt 3 weeks [facility] Work Phone: Start: 11-14-2014 End: 11-14-2014 MMM MMM [facility] Work Phone: Start: 11-14-2014 End: 11-15-2014 Basic metabolic 2000 panel - Serum or Plasma *BMP [facility] Work Phone: Start: 11-14-2014 End: 11-15-2014 CBC W Auto Differential panel - Blood *CBC with Differential [facility] Work Phone: Start: 11-14-2014 End: 11-15-2014 Chest x-ray X-Ray, Chest, PA & Lateral [facility] Work Phone: Start: 11-14-2014 End: 11-14-2014 Follow up Appt 3 weeks Follow up Appt 3 weeks [facility] Work Phone: Start: 11-14-2014 End: 11-14-2014 MMM MMM [facility] Work Phone: Start: 11-14-2014 End: 11-15-2014 Natriuretic peptide B [Mass/volume] in Blood *Brain Natriuretic Peptide BNP [facility] Work Phone: Start: 10-16-2014 End: 11-14-2014 Follow Up Appt 3 months Follow Up Appt 3 months [facility] Work Phone: Start: 10-16-2014 End: 11-14-2014 Pacer Clinic Pac[facility] Clinic [facility] Work Phone: Start: 10-16-2014 End: 11-14-2014 Follow Up Appt 3 months Follow Up Appt 3 months [facility] Work Phone: Start: 10-16-2014 End: 11-14-2014 Pacer Clinic [facility] Work Phone: Start: 09-03-2014 End: 10-01-2014 *Hepatic Function Panel *Hepatic Function Panel [facility] Work Phone: Start: 09-03-2014 End: 09-03-2014 Ecg routine ecg w/least 12 lds w/i&r EKG (In office) [facility] Work Phone: Start: 09-03-2014 End: 09-03-2014 Follow Up Appt Other Follow Up Appt Other [facility] Work Phone: Start: 09-03-2014 End: 10-01-2014 Lipid panel [AGGREGATE] *Lipid Profile CC PCP [facility] Work Phone: Start: 09-03-2014 End: 09-03-2014 PFM PFM [facility] Work Phone: Start: 09-03-2014 End: 09-03-2014 Ecg routine ecg w/least 12 lds w/i&r EKG (In office) [facility] Work Phone: Start: 09-03-2014 End: 09-03-2014 Follow Up Appt Other Follow Up Appt Other [facility] Work Phone: Start: 09-03-2014 End: 10-01-2014 Hepatic function 2000 panel - Serum or Plasma *Hepatic Function Panel [facility] Work Phone: Start: 09-03-2014 End: 10-01-2014 Lipid 1996 panel - Serum or Plasma *Lipid Profile CC PCP [facility] Work Phone: Start: 09-03-2014 End: 09-03-2014 PFM PFM [facility] Work Phone: Start: 07-03-2014 End: 08-23-2014 Follow Up Appt 3 months Follow Up Appt 3 months [facility] Work Phone: Start: 07-03-2014 End: 08-23-2014 Pacer Clinic [facility] Work Phone: Start: 07-03-2014 End: 08-23-2014 Follow Up Appt 3 months Follow Up Appt 3 months [facility] Work Phone: Start: 07-03-2014 [...] 04-04-2014 End: 07-03-2014 Pacer Clinic [facility] Clinic [facility] Work Phone: Start: 03-02-2014 End: 10-01-2014 *Hepatic Function Panel *Hepatic Function Panel [facility] Work Phone: Start: 03-02-2014 End: 03-02-2014 Follow Up Appt 6 months Follow Up Appt 6 months [facility] Work Phone: Start: 03-02-2014 End: 10-01-2014 Lipid panel [AGGREGATE] *Lipid Profile CC PCP [facility] Work Phone: Start: 03-02-2014 End: 03-02-2014 MMM MMM [facility] Work Phone: Start: 03-02-2014 End: 03-02-2014 Follow Up Appt 6 months Follow Up Appt 6 months [facility] Work Phone: Start: 03-02-2014 End: 10-01-2014 Hepatic function 2000 panel - Serum or Plasma *Hepatic Function Panel [facility] Work Phone: Start: 03-02-2014 End: 10-01-2014 Lipid 1996 panel - Serum or Plasma *Lipid Profile CC PCP [facility] Work Phone: Start: 03-02-2014 End: 03-02-2014 MMM MMM [facility] Work Phone: Start: 01-30-2014 End: 08-23-2014 *Hepatic Function Panel *Hepatic Function Panel [facility] Work Phone: Start: 01-30-2014 End: 08-23-2014 Lipid panel [AGGREGATE] *Lipid Profile CC PCP [facility] Work Phone: Start: 01-30-2014 End: 08-23-2014 Hepatic function 2000 panel - Serum or Plasma *Hepatic Function Panel [facility] Work Phone: Start: 01-30-2014 End: 08-23-2014 Lipid 1996 panel - Serum or Plasma *Lipid Profile CC PCP [facility] Work Phone: Start: 12-26-2013 End: 07-03-2014 Follow Up Appt 3 months Follow Up Appt 3 months [facility] Work Phone: Start: 12-26-2013 End: 07-03-2014 Pacer Clinic Pac[facility] Clinic [facility] Work Phone: Start: 12-26-2013 End: 07-03-2014 Follow Up Appt 3 months Follow Up Appt 3 months [facility] Work Phone: Start: 12-26-2013 End: 07-03-2014 Pacer Clinic [facility] Clinic [facility] Work Phone: Start: 08-17-2013 End: 12-18-2013 Follow Up Appt 3 months Follow Up Appt 3 months [facility] Work Phone: Start: 08-17-2013 End: 12-18-2013 Pacer Clinic [facility] Work Phone: Start: 08-17-2013 End: 12-18-2013 Follow Up Appt 3 months Follow Up Appt 3 months [facility] Work Phone: Start: 08-17-2013 End: 12-18-2013 Pacer Clinic [facility] Work Phone: Start: 08-04-2013 End: 08-18-2013 *Hepatic Function Panel *Hepatic Function Panel [facility] Work Phone: Start: 08-04-2013 End: 08-04-2013 Device Interrogation Device Interrogation [facility] [facility] Work Phone: Start: 08-04-2013 [...] Serum or Plasma *Lipid Profile CC PCP [facility] Work Phone: Start: 08-04-2013 End: 08-04-2013 PFM PFM [facility] Work Phone: Start: 05-19-2013 End: [...] 05-19-2013 End: 08-04-2013 Pacer Clinic Pacer Clinic [facility] Work Phone: Start: 03-20-2013 End: 08-04-2013 Follow Up Appt 6 months Follow Up Appt 6 months [facility] Work Phone: Start: 03-20-2013 End: 03-20-2013 Follow Up Appt Other Follow Up Appt Other [facility] Work Phone: Start: 03-20-2013 End: 08-04-2013 PFM PFM [facility] Work Phone: Start: 03-20-2013 End: 08-04-2013 Follow Up Appt 6 months Follow Up Appt 6 months [facility] Work Phone: Start: 03-20-2013 End: 03-20-2013 Follow Up Appt Other Follow Up Appt Other [facility] Work Phone: Start: 03-20-2013 End: 08-04-2013 PFM PFM [facility] Work Phone: Start: 02-15-2013 End: 03-20-2013 Follow Up Appt 3 months Follow Up Appt 3 months [facility] Work Phone: Start: 02-15-2013 End: 03-20-2013 Pacer Clinic Pacer Clinic [facility] Work Phone: Start: 02-15-2013 End: 03-20-2013 Follow Up Appt 3 months Follow Up Appt 3 months [facility] Work Phone: Start: 02-15-2013 End: 03-20-2013 Pacer Clinic Pacer Clinic [facility] Work Phone: Start: 01-30-2013 End: [...] Thyrotropin [Units/volume] in Serum or Plasma *TSH [facility] Work Phone: Start: 01-30-2013 End: 08-17-2012 Thyroxine (T4) [Mass/volume] in Serum or Plasma *T4 (Total) [facility] Work Phone: Start: 10-01-2012 End: 03-20-2013 *Hepatic Function Panel *Hepatic Function Panel [facility] Work Phone: Start: 10-01-2012 End: 03-20-2013 Lipid panel [AGGREGATE] *Lipid Profile [facility] Work Phone: Start: 10-01-2012 End: 03-20-2013 Hepatic function 2000 panel - Serum or Plasma *Hepatic Function Panel [facility] Work Phone: Start: 10-01-2012 End: 03-20-2013 Lipid 1996 panel - Serum or Plasma *Lipid Profile [facility] Work Phone: Start: 08-10-2012 End: 08-17-2012 *BMP *BMP [facility] Work Phone: Start: 08-10-2012 End: 03-20-2013 *CBC with Differential *CBC with Differential [facility] Work Phone: Start: 08-10-2012 End: 08-10-2012 Ecg routine ecg w/least 12 lds w/i&r EKG (In office) [employer] Work Phone: Start: 08-10-2012 End: 08-10-2012 Follow Up Appt 6 months Follow Up Appt 6 months [facility] Work Phone: Start: 08-10-2012 End: 08-17-2012 Magnesium *Magnesium [employer] Work Phone: Start: 08-10-2012 End: 08-17-2012 Thyroid stimulating hormone (TSH) *TSH [employer] Work Phone: Start: 08-10-2012 End: 08-17-2012 Thyroxine (T4) *T4 (Total) [employer] Work Phone: Start: 08-10-2012 End: 08-17-2012 Basic metabolic 2000 panel - Serum or Plasma *BMP [facility] Work Phone: Start: 08-10-2012 End: 03-20-2013 CBC W Auto Differential panel - Blood *CBC with Differential [facility] Work Phone: Start: 08-10-2012 End: 08-10-2012 Ecg routine ecg w/least 12 lds w/i&r EKG (In office) [facility] Work Phone: Start: 08-10-2012 End: 08-10-2012 Follow Up Appt 6 months Follow Up Appt 6 months [facility] Work Phone: Start: 08-10-2012 End: 08-17-2012 Magnesium [Mass/volume] in Serum or Plasma *Magnesium [employer] Work Phone: Start: 08-10-2012 End: 08-17-2012 Thyrotropin [Units/volume] in Serum or Plasma *TSH [facility] Work Phone: Start: 08-10-2012 End: 08-17-2012 Thyroxine (T4) [Mass/volume] in Serum or Plasma *T4 (Total) [facility] Work Phone: Start: 05-02-2012 End: 05-02-2012 *Hepatic Function Panel *Hepatic Function Panel [facility] Work Phone: Start: 05-02-2012 End: 05-02-2012 Ecg routine ecg w/least 12 lds w/i&r EKG (In office) [employer] Work Phone: Start: 05-02-2012 End: 05-02-2012 Echocardiography Echocardiogram (complete) [facility] Work Phone: Start: 05-02-2012 End: 05-02-2012 Follow Up Appt 6 months Follow Up Appt 6 months [facility] Work Phone: Start: 05-02-2012 End: 05-02-2012 Lipid panel [AGGREGATE] *Lipid Profile [facility] Work Phone: Start: 05-02-2012 End: 05-02-2012 Nuclear stress test -adenosine Nuclear stress test -adenosine [facility] Work Phone: Start: 05-02-2012 End: 05-02-2012 Ecg routine ecg w/least 12 lds w/i&r EKG (In office) [employer] Work Phone: Start: 05-02-2012 End: 05-02-2012 Echocardiography Echocardiogram (complete) [employer] Work Phone: Start: 05-02-2012 End: 05-02-2012 Follow Up Appt 6 months Follow Up Appt 6 months [facility] Work Phone: Start: 05-02-2012 End: 05-02-2012 Hepatic function 2000 panel - Serum or Plasma *Hepatic Function Panel [employer] Work Phone: Start: 05-02-2012 End: 05-02-2012 Lipid 1996 panel - Serum or Plasma *Lipid Profile [facility] Work Phone: Start: 05-02-2012 End: 05-02-2012 Nuclear stress test -adenosine Nuclear stress test -adenosine [facility] Work Phone: Start: 01-06-2001 ADVANCE DIRECTIVE DISCUSSION ADVANCE DIRECTIVE DISCUSSION [facility] Start: 01-06-1986 SHINGRIX VACCINE (1 of 2) SHINGRIX VACCINE (1 of 2) [facility] Start: 01-06-1955 Urine microalbumin profile DTAP,TDAP,TD (1 - Tdap) [facility] Patient Education HYPERLIPIDEMIA , HYPERTENSION [facility] Work Phone: Immunizations Immunization Date Immunization Notes Care Provider Fa cili 08-31-2008 influenza virus vacc ine, unspecified formulation Marino Roque Work Phone: [facility] 08-31-2008 pneumococcal polysaccharide vaccine, 23 valent Marino Roque Work Phone: [facility] Social History Date Type Detail Facility Start: 06-12-2010 Tobacco smoking stat us MIIS Never smoker 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 Start: 1935 Sex Assigned At Not on file [facility] Medical Equipment Procedure Code Equipment Code Equipment Origin al Text Equipment Identifier Dates Laser Equipment (Contracted) - [id number] Start: 02-01-2014 Fall risk assessment 04-12-2017 Note Date & Type Note Facility Advance Directives Documents on File Type Date Recorded Patient Medicaid Business Analyst Expl anation Advance Directive(s) 06/10/2016 3:34 PM Additional Source Comments Source Comments (unrecognize d section and content) In the event this informatio n is protected by the Federal Confidentiality of Alcohol and Drug Abuse Patient Records regulations: The Federal rules restrict any use of the information to criminally investigate or prosecute any alcohol or drug abuse patient.[facility] Reason for Visit (unrecogniz ed section [...] BE BASED ON THE PRIMARY CLINICAL RECORDS. [facility]. provides no warranty or guarantee of the accuracy or completeness of information in this document.
[2023-10-20] MEDS: 0.9% Normal Saline (1000mL) 1,000 ML 75 ML IV (16:26)
[2023-10-20] MEDS: oxyCODONE 5 MG Tablet PO ×2 (16:26→22:56)
[2023-10-20] MEDS: Ciprofloxacin 400 MG/200 ML BAG 200 MG IV (22:06)
[2023-10-20] MEDS: Carvedilol 3.125 MG TABLET PO (22:06)
[2023-10-20] MEDS: SACUBITRIL/VALSARTAN 49-51 MG TABLET 1 EACH PO (22:06)
[2023-10-20] MEDS: Docusate Sodium 100 MG Capsule 200 MG PO (22:06)
[2023-10-21] VITALS (7 sets, daily range): BP systolic 98–139; BP diastolic 47–75; PULSE 61–88; RESP 16–18; TEMP 36.3–37.1; O2SAT 94–100
[2023-10-21] MEDS: Ketorolac 15 MG/ML Vial IV (02:33)
[2023-10-21] MEDS: 0.9% Normal Saline (1000mL) 1,000 ML 75 ML IV ×2 (06:09→19:44)
--- NOTE | 2023-10-21 07:23 | PCM.PN.GU ---
Subjective Subjective Status post TURP for regrowth and obstruction urine still bloody continue with CBI probably discharge tomorrow Objective Data Objective Data Vital Signs: Vital Signs Temp Pulse Resp BP Pulse Ox O2 Del Method 98.8 F 72 18 127/62 H 95 Room Air 10/21/23 03:36 10/21/23 03:36 10/21/23 03:36 10/21/23 03:36 10/21/23 03:36 10/21/23 03:36 Oxygen Delivery Method Room Air Weight: 53 kg Body Mass Index (BMI) 20.7 Intake & Output: Intake and Output for Last 24 Hours 10/19/23 10/20/23 10/21/23 23:59 23:59 23:59 Intake Total 884.00 / 884.00 528.75 / 528.75 Output Total 7150 / 7150 900 / 900 Balance -6266.00 / -6266.00 -371.25 / -371.25
[2023-10-21] MEDS: Ondansetron 4 MG/2 ML Vial IV (07:34)
--- NOTE | 2023-10-21 07:59 | NURSING ---
pt assisted to bathroom, changing positions caused clots to be noted in the catheter. as pt was helped back to bed, his output slowed. puente was irrigated manually with return of several clots. CBI resumed with appropriate output and a light pink color.
[2023-10-21] MEDS: oxyCODONE 5 MG Tablet PO (08:41)
[2023-10-21] MEDS: Acetaminophen 325 MG Tablet PO (08:41)
[2023-10-21] MEDS: Ciprofloxacin 400 MG/200 ML BAG 200 MG IV (08:42)
[2023-10-21] MEDS: Carvedilol 3.125 MG TABLET PO ×2 (10:40→21:32)
[2023-10-21] MEDS: SACUBITRIL/VALSARTAN 49-51 MG TABLET 1 EACH PO ×2 (10:41→21:32)
[2023-10-21] MEDS: Docusate Sodium 100 MG Capsule 200 MG PO ×2 (10:41→21:32)
--- NOTE | 2023-10-21 16:05 | CASEMGMT ---
Met with patient to complete CRAWFORD form. CRAWFORD form explained to patient who voiced understanding and signed form. Original form placed in pt?s chart and copy provided to?patient. Alexia Graham, Discharge Planning Asst
[2023-10-22 03:00] VITALS: BP 98/44; PULSE 67; RESP 16; TEMP 37.2; O2SAT 97
[2023-10-22 08:12] VITALS: BP 101/45; PULSE 65; RESP 18; TEMP 37.1; O2SAT 98
[2023-10-22 08:17] VITALS: O2SAT 93
[2023-10-22] MEDS: 0.9% Normal Saline (1000mL) 1,000 ML 75 ML IV (09:14)
--- NOTE | 2023-10-22 10:33 | CASEMGMT ---
TERESITA SUAREZ NOTE: Discharge order is in. RN CM to room. Pt resting in bed. Awake/alert/oriented. Pt states he lives w/ and their daughter will be staying with them as long as needed while he recovers. His daughter will be taking him home @ discharge. Pt states he has been OOB this morning and pretty good . He feels safe to discharge home today and denies need for HHC or OP therapy. He denies needing any DME and denies other discharge planning needs or concerns. Triston WILLOUGHBYN TERESITA CM
[2023-10-22 10:45] VITALS: BP 106/45; PULSE 67; O2SAT 98
[2023-10-22] MEDS: SACUBITRIL/VALSARTAN 49-51 MG TABLET 1 EACH PO (10:47)
[2023-10-22] MEDS: Carvedilol 3.125 MG TABLET PO (10:47)
[2023-10-22] MEDS: Docusate Sodium 100 MG Capsule 200 MG PO (10:47)
[2023-10-22 16:24] VITALS: BP 110/60; PULSE 64; RESP 18; TEMP 36.9; O2SAT 99
== END 2023-10-22 17:49 | disposition home or self-care (01) ==
LOC: SDC 14:59 → MS3 14:59
PROVIDERS: Admitting Provider Urology; PCP Family Medicine; Referring Provider Urology; Visit Provider Urology
PROC: 0VT08ZZ Resection of Prostate, Via Natural or Artificial Opening Endoscopic (ICD-10-PCS; CPT 52601; principal; 2023-10-20 13:00)
DX: N40.1 Benign prostatic hyperplasia with lower urinary tract symptoms (principal); I11.0 Hypertensive heart disease with heart failure; I50.22 Chronic systolic (congestive) heart failure; I42.9 Cardiomyopathy, unspecified; I25.10 Atherosclerotic heart disease of native coronary artery without angina pectoris; E78.00 Pure hypercholesterolemia, unspecified; Z79.82 Long term (current) use of aspirin; N13.8 Other obstructive and reflux uropathy; Z79.899 Other long term (current) drug therapy; Z79.02 Long term (current) use of antithrombotics/antiplatelets; Z95.810 Presence of automatic (implantable) cardiac defibrillator; K21.9 Gastro-esophageal reflux disease without esophagitis; R33.8 Other retention of urine
CPT/HCPCS: 52630; 00914; 88305; 93005; 94668; 96361; 96365; 96366; 96375; 99221; J7030; J7120; G0378; J0744; J2405

== ENCOUNTER → 2023-11-26 | Outpatient (CLI) | payer MEDICARE, SELFPAY ==
[2018-12-28 14:17] VITALS: BMI 22.3
[2023-11-26 18:25] LABS: Anion Gap 6 (5-15); BUN 14 mg/dL (7-18); BUN/Creat Ratio 16.8 RATIO (10-20); Calcium,Total 9.1 mg/dL (8.5-10.1); Chloride 105 mmol/L (98-107); Creatinine, Serum 0.83 mg/dL (0.70-1.30); EST Glomerular Filtration Rate 93 mL/min (>60); Est Glom Filt Rate - Afr Amer 112 mL/min (>60); Glucose 102 mg/dL (74-106); Magnesium 2.4 mg/dL (1.6-2.6); Sodium Level 137 mmol/L (136-145)
== END | disposition home or self-care (01) ==
LOC: BFHLAB 14:53
PROVIDERS: PCP Family Medicine; Visit Provider Family Medicine
DX: R25.2 Cramp and spasm (principal)
CPT/HCPCS: 36415; 80048; 83735

== ENCOUNTER 2024-03-22 05:42 | Day surgery (SDC) | payer MEDICARE, SELFPAY ==
[2018-12-28 14:17] VITALS: BMI 22.3
[2024-03-22] VITALS (7 sets, daily range): BP systolic 90–111; BP diastolic 47–60; PULSE 49–57; RESP 14–18; TEMP 36.4–36.5; O2SAT 93–98; BMI 19.8
[2024-03-22] MEDS: Lactated Ringers 1,000 ML 15 ML IV (06:42)
[2024-03-22] MEDS: Cefazolin 2 GM in 0.9% Normal Saline (100mL Bag) 100 ML IV (07:29)
--- NOTE | 2024-03-22 07:31 | PCM.HP.STD ---
HPI - General General Date of Service: 03/22/24 HPI Narrative JORGE GUZMÁN, is a 89 M who presents for DVIU for urethral stricture will leave the catheter in for 6 weeks to let let it heal hopefully this will heal however understand this possible stricture can come back [facility] Medical History (Updated 03/21/24 @ 08:23 by Cheryl Espinal) Non-smoker History of heart attack Presence of stent in coronary artery (~12/28/18) Cancer High cholesterol History of echocardiogram History of stress test Cardiology follow-up encounter History of CHF (congestive heart failure) Pure hypercholesterolemia 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 General weakness Otitis media Elevated troponin Orchitis of right testicle Sepsis Implantable cardioverter-defibrillator (ICD) at end of battery life Essential hypertension Family history of CVA Family history of hypertension FH: sudden cardiac (SCD) History of placement of internal cardiac defibrillator HTN (hypertension) Old myocardial infarction Angina pectoris Cardiomyopathy, ischemic Chronic systolic congestive heart failure HLD (hyperlipidemia) Abnormal result of cardiovascular function study, unspecified High risk medication use Iron deficiency anemia Chest pain, precordial Atherosclerotic heart disease of [place] coronary artery without angina pectoris Dyspnea Fatigue Hypokalemia Benign prostatic hypertrophy SBO (small bowel obstruction) Home Medications ?Medication ?Instructions ?Recorded ?Last Taken ?Type aspirin 81 mg chewable tablet 81 mg PO DAILY heart health 03/05/16 03/13/24 History nitroglycerin 0.4 mg sublingual 0.4 mg sublingual Q5M PRN Chest 02/17/22 Unknown Rx tablet Pain #25 tabs clopidogrel 75 mg tablet 75 mg PO DAILY #90 tabs 03/04/23 03/13/24 Rx carvedilol 3.125 mg tablet 3.125 mg PO BID #180 tabs 06/17/23 03/22/24 Rx DUPIXANT 300 mg IM .Q2W 10/11/23 03/08/24 History sacubitril 24 mg-valsartan 26 mg 1 tab PO BID #180 tabs 11/23/23 03/22/24 Rx tablet (Entresto) simvastatin 20 mg tablet 20 mg PO QHS 03/21/24 03/21/24 History ciprofloxacin HCl 500 mg tablet 500 mg PO BID #10 tabs 03/22/24 Unknown Rx (Cipro) Allergy/AdvReac Type Severity Reaction Status Date / Time morphine Allergy Intermediate Rash Verified 03/22/24 06:24 zolpidem tartrate (From AdvReac Intermediate CONFUSION Verified 03/22/24 06:24 Ambien) Family History (Reviewed 11/23/23 @ 14:31 by Cynthia Bowen FIREARMS SALES ASSOCIATE, FIREAR[employer] SALES ASSOCIATE-C) Mother CAD (coronary artery disease) CVA (cerebral vascular accident) Myocardial infarction, Onset Age: 67 Hypertension Brother CAD (coronary artery disease) Hypertension Cancer Lung CA Myocardial infarction, Onset Age: 73 Father Myocardial infarction, Onset Age: 77 Daughter Cancer Son Myocardial infarction, Onset Age: 46 Other Cardiomyopathy, ischemic Chronic systolic congestive heart failure Fatigue General weakness Iron deficiency anemia Surgical History (Updated 03/21/24 @ 08:23 by Cheryl Espinal) Hx of transurethral resection of prostate Presence of coronary artery bypass graft stent (~12/28/18) History of cardiac catheterization Hx of colonoscopy Hx of surgical procedure History of hernia repair History of prostate surgery History of left heart catheterization Social History (Reviewed 11/23/23 @ 14:31 by Cynthia Bowen FIREARMS SALES ASSOCIATE, FIREARMS SALES ASSOCIATE-C) household members: spouse Smoking Status: Never smoker alcohol intake: never substance use type: does not use caffeine: Yes Type: carbonated beverages and coffee Number of servings: 1 what type of physical activity do you participate in: none seatbelt use: always do you feel safe at home: Yes Vital Signs Vital Signs Vital Signs: 03/22/24 06:27 03/22/24 06:27 Temperature 97.7 F L Temperature Source Temporal Pulse Rate 57 L Respiratory Rate 18 Respiratory Pattern Normal Blood Pressure 104/60 Blood Pressure Mean 74 Blood Pressure Source Monitor Blood Pressure Position Semi-Fowlers Blood Pressure Location Right Arm Pulse Ox 98 Oxygen Delivery Method Room Air Weight Weight: 50.9 kg Body Mass Index (BMI) 19.8
--- NOTE | 2024-03-22 07:32 | DCINST_ITS ---
Discharge Instructions Diet Discharge Diet: No restrictions Activity Discharge Activity: Return to Normal Activity and May Not Drive (while taking narcotic pain medications.) Dressing / Incision Call your doctor if you observe: Fever of 101 or Higher Catheter: Puente to leg bag Drain: [place] Follow Up Care Please Follow Up With: Faisal Barth MD When: Call [phone] for an appointment Test Results: Test results from this visit will be discussed in further detail at your follow- up appointment, if applicable. Discharge Plan Admission Primary Reason for Your Visit: puente placement Attending Provider: Faisal Barth Primary Care Provider: Terry Mckeon Instructions Print Language: [place] Discharge Orders/Prescriptions Prescriptions: New ciprofloxacin HCl [Cipro] 500 mg tablet 500 mg PO BID Qty: 10 0RF Continued Entresto 24-26 mg tablet 1 tab PO BID Qty: 180 3RF aspirin 81 MG tablet,chewable 81 mg PO DAILY DUPIXANT 300 mg IM .Q2W simvastatin 20 mg tablet 20 mg PO QHS Rx Instructions: TAKE 1 TABLET BY MOUTH AT BEDTIME FOR CHOLESTEROL nitroglycerin 0.4 mg tablet, sublingual 0.4 mg SUBLINGUAL Q5M PRN (Reason: Chest Pain) Qty: 25 3RF clopidogrel 75 mg tablet 75 mg PO DAILY Qty: 90 3RF Rx Instructions: prevent clotting carvedilol 3.125 mg tablet 3.125 mg PO BID Qty: 180 3RF Rx Instructions: must administer with a meal/food Referrals / Follow Up: Terry Mckeon DO [Primary Care Provider] - Disposition Disposition (needs filled in before D/C Order can be placed): Home, Self Care
--- NOTE | 2024-03-22 07:52 | OP.PCM_ITS ---
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 Post-Operative Diagnosis: The same Surgery/Procedure Performed:: The procedure was direct vision internal urethrotomy of urethral stricture, and also transurethral resection of bladder neck contracture Description of Surgical Findings:: Patient was taken back to the operating room after smooth induction of anesthesia he was placed in dorsolithotomy position went into the urethra with a urethrotome and then inspection urethra he had a mild stricture in the mid urethra was not really that tight cut open a little bit I was able get the urethrotome to that went to the sphincter and then right at the bladder neck he had another scar tissue really dense so then I used the cold knife to resect the bladder neck resection of the bladder neck transurethrally was then completed using the cold knife and then I put a wire through and then we placed a 20 [place] tip catheter plan to leave this in for 6 weeks to let it heal but looking at the situation I will tell the family it is very likely that he will probably have incontinence since his sphincter mechanism looks compromised he had all the scar tissue in the palm is very likely the scar tissue may come back this may have to be a repeat procedure but he was not emptying his bladder because of the scar tissue so we will leave the catheter for 6 weeks to let it heal up completely but this to be a difficult problem to offer a complete cure we will try managing with catheter at this point and I will get the catheter out in 6 weeks and see how he does. Patient anesthetic was reversed with takeback to PACU in good condition and went spoke with Surgeon: Faisal Barth Type of Anesthesia: General Drains: 20 fr puente Admit VTE Documentation VTE Present on Admission: No VTE Mechan Device Prophylaxis: SCD's VTE Pharm Prophylaxis ordered?: No
[2024-03-22] MEDS: oxyCODONE 5 MG Tablet PO (09:03)
== END 2024-03-22 09:25 | disposition home or self-care (01) ==
LOC: SDC 05:43 → AC 05:44
PROVIDERS: PCP Family Medicine; Referring Provider Urology; Visit Provider Urology
PROC: 0T7D8ZZ Dilation of Urethra, Via Natural or Artificial Opening Endoscopic (ICD-10-PCS; CPT 52276; principal; 2024-03-22 07:20)
DX: N35.919 Unspecified urethral stricture, male, unspecified site (principal); I11.0 Hypertensive heart disease with heart failure; I50.22 Chronic systolic (congestive) heart failure; I25.110 Atherosclerotic heart disease of native coronary artery with unstable angina pectoris; E78.5 Hyperlipidemia, unspecified; Z82.3 Family history of stroke; N32.89 Other specified disorders of bladder; Z79.82 Long term (current) use of aspirin; Z79.02 Long term (current) use of antithrombotics/antiplatelets; I25.5 Ischemic cardiomyopathy; Z95.810 Presence of automatic (implantable) cardiac defibrillator; I25.2 Old myocardial infarction; I73.9 Peripheral vascular disease, unspecified; Z95.1 Presence of aortocoronary bypass graft
CPT/HCPCS: 52276; 52640; 00910; J7120; C1769; J2405

== ENCOUNTER 2024-03-25 18:00 | Emergency (ER) | payer MEDICARE, SELFPAY ==
[2018-12-28 14:17] VITALS: BMI 22.3
[2024-03-25 18:01] VITALS: BP 146/59; PULSE 87; RESP 16; TEMP 36.5; O2SAT 93
--- NOTE | 2024-03-25 19:04 | EKG12_ITS ---
Test Reason : Blood Pressure : / mmHG Vent. Rate : 068 BPM Atrial Rate : 068 BPM P-R Int : 174 ms QRS Dur : 118 ms QT Int : 416 ms P-R-T Axes : 005 -20 058 degrees QTc Int : 442 ms Normal sinus rhythm Non-specific intra-ventricular conduction delay Minimal voltage criteria for LVH, may be normal variant ( [place] product ) Borderline ECG Confirmed by AYAKA PASCUAL, BARRINGTON ([id number]), staff editor HALEY CORDOVA ([id number]) on 03/30/2024 6:10:48 AM Referred By: Confirmed By:KATERYNA MARLEY MD
--- NOTE | 2024-03-25 19:15 | RAD_ITS ---
INDICATION: cough EXAMINATION/TECHNIQUE: X-RAY - XR Chest 1 View COMPARISON: 09/04/2023. FINDINGS: Chronic lung changes. No definite acute lung findings. Tortuous and calcified thoracic aorta. The heart is mildly enlarged. Left-sided cardiac device. No pleural effusion or pneumothorax. Degenerative changes of the thoracic spine. RAD/Chest 1 View (Portable) IMPRESSION: No acute radiographic abnormalities. Chronic lung changes. Electronically Signed: Joe Patel MD at 20:06 EDT ,
[2024-03-25 19:19] LABS: Absolute Lymphocyte Count 1.74 X10^3/uL (0.83-4.51); Absolute Neutrophil Count 5.4 X10^3/uL (2.0-7.7); Basophil# 0.05 X10^3/uL; Basophil% 0.6 % (0-1); Eosinophil# 0.62 X10^3/uL; Eosinophils% 7.1 % (0-5); Hematocrit 34.8 % (40-54); Hemoglobin 11.3 g/dL (13.0-16.5); Lymphocyte # 1.74 X10^3/ul (0.83-4.51); Mean Corp Hgb Conc 32.5 g/dL (32-36); Mean Corpuscular Hgb 29.5 pg (27.0-32.0); Mean Corpuscular Volume 90.9 fL (80-94); Mean Platelet Vol. 12.3 fl (6.2-12.0); Monocyte# 0.85 X10^3/uL; Monocyte% 9.7 % (0-10); NRBC Flagged by Analyzer 0 % (0-5); Neutrophil # 5.44 X10^3/uL (2.7-7.7); Neutrophil % 62.4 % (47-70); Platelet Count 173 K/mm3 (150-450); RBC Distribution Width CV 13.8 % (11.6-14.6); RBC Distribution Width SD 45.9 fl (35.1-43.9); Red Blood Count 3.83 M/mm3 (4.6-6.2); White Blood Count 8.7 K/mm3 (4.4-11.0)
[2024-03-25] MEDS: Meclizine HCl 25 MG Tablet PO (19:30)
[2024-03-25] MEDS: Ondansetron 4 MG/2 ML Vial IV (19:30)
[2024-03-25] MEDS: 0.9% Normal Saline (1000mL) 1,000 ML 999 ML IV (19:30)
--- NOTE | 2024-03-25 19:32 | EX.ED.DYSGE1 ---
HPI <MORTEZA Staton - Last Filed: 03/25/24 22:36> History of Present Illness Chief Complaint: Nausea/Vomiting Narrative Narrative: Patient is a 89-year-old male with history of a pacemaker, CAD, who presents to the emergency department for nausea, vomiting, dizziness which she describes as room spinning. Patient had a procedure on his prostate where they remove scar tissue on Wednesday, this was done by Dr. Barth. Patient was on ciprofloxacin 500 mg twice a day, as well as oxycodone. Per the daughter, the patient is not eating and drinking normally, today, the patient started having dry heaves, extreme weakness, inability to get out of bed and eat. Patient states secondary to the dizziness, nausea and vomiting he called the ambulance. Patient denies any specific pain. Denies any fever or chills. Patient currently has a indwelling Rod catheter. 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 General weakness Otitis media Elevated troponin Orchitis of right testicle Sepsis Implantable cardioverter-defibrillator (ICD) at end of battery life Essential hypertension Family history of CVA Family history of hypertension FH: sudden cardiac (SCD) History of placement of internal cardiac defibrillator HTN (hypertension) Old myocardial infarction Angina pectoris Cardiomyopathy, ischemic Chronic systolic congestive heart failure HLD (hyperlipidemia) Abnormal result of cardiovascular function study, unspecified High risk medication use Iron deficiency anemia Chest pain, precordial 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 Dyspnea Fatigue Hypokalemia Benign prostatic hypertrophy SBO (small bowel obstruction) Home Medications ?Medication ?Instructions ?Recorded ?Last Taken ?Type aspirin 81 mg chewable tablet 81 mg PO DAILY heart health 03/05/16 03/13/24 History nitroglycerin 0.4 mg sublingual 0.4 mg sublingual Q5M PRN Chest 02/17/22 Unknown Rx tablet Pain #25 tabs clopidogrel 75 mg tablet 75 mg PO DAILY #90 tabs 03/04/23 03/13/24 Rx carvedilol 3.125 mg tablet 3.125 mg PO BID #180 tabs 06/17/23 03/22/24 Rx DUPIXANT 300 mg IM .Q2W 10/11/23 03/08/24 History sacubitril 24 mg-valsartan 26 mg 1 tab PO BID #180 tabs 11/23/23 03/22/24 Rx tablet (Entresto) simvastatin 20 mg tablet 20 mg PO QHS 03/21/24 03/21/24 History ciprofloxacin HCl 500 mg tablet 500 mg PO BID #10 tabs 03/22/24 Unknown Rx (Cipro) oxycodone 5 mg tablet 5 mg PO Q6H PRN pain 7 days #14 03/22/24 Unknown Rx tabs diazepam 2 mg tablet (Valium) 2 mg PO BID PRN anxiety #10 tabs 03/25/24 Unknown Rx ondansetron 4 mg disintegrating 4 mg PO Q8H PRN PRN Nausea #10 tabs 03/25/24 Unknown Rx tablet Allergy/AdvReac Type Severity Reaction Status Date / Time morphine Allergy Intermediate Rash Verified 03/25/24 18:10 zolpidem tartrate (From AdvReac Intermediate CONFUSION Verified 03/25/24 18:10 Ambien) Family History Mother CAD (coronary artery disease) CVA (cerebral vascular accident) Myocardial infarction, Onset Age: 67 Hypertension Brother CAD (coronary artery disease) Hypertension Cancer Lung CA Myocardial infarction, Onset Age: 73 Father Myocardial infarction, Onset Age: 77 Daughter Cancer Son Myocardial infarction, Onset Age: 46 Other Cardiomyopathy, ischemic Chronic systolic congestive heart failure Fatigue General weakness Iron deficiency anemia Surgical History Hx of transurethral resection of prostate Presence of coronary artery bypass graft stent (~12/28/18) History of cardiac catheterization Hx of colonoscopy Hx of surgical procedure History of hernia repair History of prostate surgery History of left heart catheterization Social History household members: spouse Smoking Status: Never smoker alcohol intake: never substance use type: does not use caffeine: Yes Type: carbonated beverages and coffee Number of servings: 1 what type of physical activity do you participate in: none seatbelt use: always do you feel safe at home: Yes ROS <MORTEZA Staton - Last Filed: 03/25/24 22:36> ROS ED ROS Narrative Constitutional: Negative for fever, chills, weight loss. Positive generalized weakness Eyes: Negative for vision loss, vision change, double vision ENT: Negative for any sore throat, ear pain, congestion Cardiovascular: Negative for any chest pain, tightness, palpitations Respiratory: Negative for any cough, sputum production, hemoptysis, dyspnea, dyspnea on exertion, orthopnea Gastrointestinal: Negative for any abdominal pain, diarrhea, constipation, blood in stool, blood in vomit. Positive for nausea and vomiting : Negative for any urinary frequency, dysuria, retention, blood in urine Muscle skeletal: Negative for any neck pain, back pain Neurological: Negative for any headache, syncope. Positive feeling of dizziness which she describes as room spinning Skin: Negative for any rashes, itching, abrasions, lacerations Psychiatric: Negative for any depression, anxiety, stress, suicidal ideation, homicidal ideation Hematologic: Negative for any excessive bruising, easy bleeding EXAM <MORTEZA Staton - Last Filed: 03/25/24 22:36> Physical Exam Narrative Exam Narrative: Vital signs reviewed. Patient does look like he does not feel well. Patient is pale appearing. HEET: Head normocephalic atraumatic, TMs clear bilaterally. Posterior pharynx is clear, dry mucous membranes. Nares clear bilaterally. Neck: Supple with no lymphadenopathy or tenderness. No signs of meningismus. Cardiac: Regular rate and rhythm no murmurs gallops or rubs, equal peripheral pulses bilaterally. Respiratory: Lungs clear to auscultation bilaterally. No chest tenderness. Abdomen: Soft, nontender, nondistended. No abdominal bruit or pulsatile masses. No hepatosplenomegaly Extremities: No peripheral edema, no signs of gross trauma or deformity. Active full range of motion of all extremities. Neuro: Cranial nerves II through XII intact, no focal neurological deficits. Negative for any nystagmus. Skin: Clean dry and intact with no rash, purpura, petechiae, vesicles or pustules. Backs/flank: No CVA tenderness, no midline spinal tenderness, no deformity. Psych: Normal mood and affect. No SI, HI or acute psychosis. Const Vital Signs: 03/25/24 18:01 03/25/24 20:00 Temperature 97.7 F L 97.9 F Temperature Source Oral Oral Pulse Rate 87 69 Respiratory Rate 16 30 H Blood Pressure 146/59 H 107/47 L Blood Pressure Mean 88 67 Pulse Ox 93 94 Oxygen Delivery Method Room Air Room Air Positive well nourished and well developed General Appearance ED: well developed <Dr. Suraj Curtis DO - Last Filed: 03/25/24 23:17> Physical Exam Const Vital Signs: 03/25/24 18:01 03/25/24 20:00 Temperature 97.7 F L 97.9 F Temperature Source Oral Oral Pulse Rate 87 69 Respiratory Rate 16 30 H Blood Pressure 146/59 H 107/47 L Blood Pressure Mean 88 67 Pulse Ox 93 94 Oxygen Delivery Method Room Air Room Air MDM <MORTEZA Staton - Last Filed: 03/25/24 22:36> MDM Lab Data Labs: Laboratory Results - last 24 hr 03/25/24 03/25/24 18:20 19:37 WBC 8.7 RBC 3.83 L Hgb 11.3 L Hct 34.8 L MCV 90.9 MCH 29.5 MCHC 32.5 RDW Std Deviation 45.9 H RDW Coeff of Arleen 13.8 Plt Count 173 MPV 12.3 H Immature Gran % (Auto) 0.200 Neut % (Auto) 62.4 Lymph % (Auto) 20.0 [place] % (Auto) 9.7 Eos % (Auto) 7.1 H Baso % (Auto) 0.6 Absolute Neuts (auto) 5.4 Absolute Lymphs (auto) 1.74 Nucleated RBC % 0 Sodium 133 L Potassium 4.4 Chloride 100 Carbon Dioxide 26.0 Anion Gap 7 BUN 25 H Creatinine 1.45 H Est GFR (MDRD) Af Amer 59 L Est GFR (MDRD) Non-Af 49 L BUN/Creatinine Ratio 17.2 Glucose 174 H Calcium 8.5 Total Bilirubin 1.70 H AST 19 ALT 11 L Alkaline Phosphatase 57 Troponin I High Sens 10 Total Protein 7.5 Albumin 3.4 Globulin 4.1 Albumin/Globulin Ratio 0.8 L Lipase 14 Urine Color Yellow Urine Clarity Clear Urine pH 6.5 Ur Specific [place] 1.010 Urine Protein 100 H Urine Glucose (UA) 50 H Urine Ketones 15 H Urine Occult Blood 250 H Urine Nitrite Negative Urine Bilirubin Negative Urine Urobilinogen Normal Ur Leukocyte Esterase 500 H Urine RBC 25-50 SEEN Urine WBC 10-25 SEEN Ur Squamous Epith Cells 0 SEEN Urine Bacteria 0 SEEN Urine Mucus 0 SEEN Radiography Diagnostic Testing: Clinical Impression(s) from Imaging Studies Chest X-Ray 03/25/24 19:15 IMPRESSION: No acute radiographic abnormalities. Chronic lung changes. Electronically Signed: Joe Patel MD at 20:06 EDT , Brain CT 03/25/24 20:00 IMPRESSION: No acute intracranial abnormality. Chronic involutional and ischemic changes of the brain. Electronically Signed: Joe Patel MD at 20:21 EDT , EKG Normal sinus rhythm: Attestation: I personally reviewed and interpreted this EKG as follows: Comments: Normal sinus rhythm, rate of 68 bpm, UT interval 174 ms, QRS duration 118 ms, no acute ST elevation, no acute infarct noted. Treatment and Re-Evaluation :: Differential diagnosis includes however is not limited to: Medication reaction, benign positional peripheral vertigo, central vertigo, electrolyte abnormality, Patient is alert and orient x 4, patient does look like he does not feel well. Patient looks nontoxic. Patient presenting to the emergency department with complaints of nausea, vomiting, dizziness. Patient received IV fluids, Zofran, as well as meclizine. CT scan of the brain chest x-ray. Patient will receive a urinalysis. He will be reevaluated. All radiologic examinations were read, reviewed by the emergency department attending. From these reads, a plan of care will be put in place. Patient's CBC shows slight anemia with hemoglobin 0.3 however this is baseline. Patient's chemistries show sodium 133, creatinine is 1.45, this is slightly elevated, patient's creatinine in November 2023 was 0.83, this to be secondary to the vomiting. GFR of 49. Glucose 174, this is baseline. Troponin is negative. Patient's lipase is negative. CT scan of the brain shows no acute intracranial abnormality. Patient's chest x-ray shows no acute radiographic abnormalities. Patient's urinalysis showed 0 bacteria, 10-25 white blood cells, 25-50 red blood cells, 500 leukocytes. Patient is currently on the ciprofloxacin. Patient on reevaluation after IV fluids, Zofran, meclizine, still states he feels dizzy and not well. He will now receive oral Valium to see if this does improve his dizziness. On reevaluation, the patient felt much better. The patient is able to move his head around, he had no more vomiting. Patient be ambulated around department and ensure that he is stable. Patient does look much better than what he did when he came in here. At this time, patient will continue to maintain hydration, I spoke with the patient the patient's daughter, they are in agreement. At this time, I do feel the patient is stable for discharge. Patient will follow-up outpatient. <Dr. Suraj Curtis, DO - Last Filed: 03/25/24 23:17> [facility] Narrative Medical decision making narrative: I have personally performed a face to face assessment of the patient and have reviewed the JOSHUA Note. I performed a substantive portion of the visit including all aspects of the following. My raines findings include: History: Patient presents with dizziness that began today. Patient states it began rather suddenly. Patient states that whenever he moves his head he becomes disoriented. Patient denies any spinning sensation. Patient admits to some nausea and vomiting when he turns his head. Patient admits to mild cough. Patient states that his vision becomes blurred when he turns his head as well. Patient denies any fevers or chills. Patient denies any headaches. Exam: Vital signs are stable. Patient is afebrile. Patient is in no acute distress. Pupils are equal, round, and reactive to light bilaterally. Extraocular muscles are intact. There is no nystagmus noted. Cranial nerves II through XII are intact. There are no focal motor or sensory deficits noted. Oral mucosa is pink and moist. Neck is supple. Trachea is midline. There is no JVD. Heart was regular rate and rhythm. Lungs are clear and equal bilaterally. Abdomen is soft. Bowel sounds are normal. There is no tenderness. Cranial nerves II through XII are intact. There are no focal motor or sensory deficits noted. Medical Decision Making: Differential diagnosis includes stroke, electrolyte abnormality, cardiac dysrhythmia, cardiac ischemia, vertigo, and infection. EKG will be obtained to assess for cardiac dysrhythmia and cardiac ischemia. Chest x-ray will be obtained to assess for pneumonia. CT scan of the brain will be obtained to assess for stroke. CBC will be obtained to assess for leukocytosis and anemia. Comprehensive metabolic profile will be obtained to assess for hepatic function, renal function, and electrolyte abnormality. Urinalysis will be obtained to assess for urinary tract infection and hematuria. Patient was given IV fluids and Zofran initially. Patient was given a dose of meclizine. Patient had some improvement with this. Patient was given a dose of Valium. Patient states he felt better after this. CBC was reviewed. There is a mild anemia with a hemoglobin of 11.3 and hematocrit of 34.8. Platelets were normal. White blood cell count was normal. Comprehensive metabolic profile was reviewed. BUN was 25 and creatinine was 1.45. These are consistent with prior results. Total bilirubin was slightly elevated at 1.7. The remainder was within normal limits. Lipase was reviewed and was normal at 14. Urinalysis was reviewed. There is a leukocyte esterase of 500 with 10-25 white blood cells. Occult blood was 250 with 25-50 red blood cells. There is no bacteria noted. High-sensitivity troponin was reviewed and was normal at 10. CT scan of the brain was obtained. There is no acute intracranial abnormality. There are chronic involutional changes noted. This was interpreted by the radiologist and was also independently reviewed by myself. Portable 1 view chest x-ray was obtained. On my independent interpretation, lung alvarez are clear. There is normal cardiac silhouette. Bony thorax is normal. There is no acute process noted. Radiologist also interpreted the x-ray and agrees. EKG was obtained. On my independent interpretation, it showed a normal sinus rhythm with a rate of 68. UT interval, QRS interval, and QTc intervals were all normal. [place] was normal. There are no acute ST or T wave changes. Patient was advised of his findings. Patient was given a prescription for short course of Valium. Patient was instructed to follow-up with his primary care physician in 5 to 7 days. Patient understood and was agreeable with the plan. All questions were answered. Lab Data Labs: Laboratory Results - last 24 hr 03/25/24 03/25/24 18:20 19:37 WBC 8.7 RBC 3.83 L Hgb 11.3 L Hct 34.8 L MCV 90.9 MCH 29.5 MCHC 32.5 RDW Std Deviation 45.9 H RDW Coeff of Arleen 13.8 Plt Count 173 MPV 12.3 H Immature Gran % (Auto) 0.200 Neut % (Auto) 62.4 Lymph % (Auto) 20.0 [place] % (Auto) 9.7 Eos % (Auto) 7.1 H Baso % (Auto) 0.6 Absolute Neuts (auto) 5.4 Absolute Lymphs (auto) 1.74 Nucleated RBC % 0 Sodium 133 L Potassium 4.4 Chloride 100 Carbon Dioxide 26.0 Anion Gap 7 BUN 25 H Creatinine 1.45 H Est GFR (MDRD) Af Amer 59 L Est GFR (MDRD) Non-Af 49 L BUN/Creatinine Ratio 17.2 Glucose 174 H Calcium 8.5 Total Bilirubin 1.70 H AST 19 ALT 11 L Alkaline Phosphatase 57 Troponin I High Sens 10 Total Protein 7.5 Albumin 3.4 Globulin 4.1 Albumin/Globulin Ratio 0.8 L Lipase 14 Urine Color Yellow Urine Clarity Clear Urine pH 6.5 Ur Specific [place] 1.010 Urine Protein 100 H Urine Glucose (UA) 50 H Urine Ketones 15 H Urine Occult Blood 250 H Urine Nitrite Negative Urine Bilirubin Negative Urine Urobilinogen Normal Ur Leukocyte Esterase 500 H Urine RBC 25-50 SEEN Urine WBC 10-25 SEEN Ur Squamous Epith Cells 0 SEEN Urine Bacteria 0 SEEN Urine Mucus 0 SEEN Radiography Diagnostic Testing: Clinical Impression(s) from Imaging Studies Chest X-Ray 03/25/24 19:15 IMPRESSION: No acute radiographic abnormalities. Chronic lung changes. Electronically Signed: Joe Patel MD at 20:06 EDT , Brain CT 03/25/24 20:00 IMPRESSION: No acute intracranial abnormality. Chronic involutional and ischemic changes of the brain. Electronically Signed: Joe Patel MD at 20:21 EDT , Discharge Plan Triage Chief Complaint: Nausea/Vomiting ED Midlevel Provider: Robbi Hopkins ED Provider: Suraj Curtis Dx/Rx/DC Orders Prescriptions: No Action Entresto 24-26 mg tablet 1 tab PO BID Qty: 180 3RF aspirin 81 MG tablet,chewable 81 mg PO DAILY DUPIXANT 300 mg IM .Q2W simvastatin 20 mg tablet 20 mg PO QHS Rx Instructions: TAKE 1 TABLET BY MOUTH AT BEDTIME FOR CHOLESTEROL ciprofloxacin HCl [Cipro] 500 mg tablet 500 mg PO BID Qty: 10 0RF oxycodone 5 mg tablet 5 mg PO Q6H PRN (Reason: pain) 7 Days Qty: 14 0RF nitroglycerin 0.4 mg tablet, sublingual 0.4 mg SUBLINGUAL Q5M PRN (Reason: Chest Pain) Qty: 25 3RF clopidogrel 75 mg tablet 75 mg PO DAILY Qty: 90 3RF Rx Instructions: prevent clotting carvedilol 3.125 mg tablet 3.125 mg PO BID Qty: 180 3RF Rx Instructions: must administer with a meal/food Primary Care Provider: Terry Mckeon Referrals: Terry Mckeon DO [Primary Care Provider] - Print Language: Estonian
[2024-03-25 19:37] LABS: ALB/GLOB Ratio 0.8 RATIO (0.9-2.4); AST(SGOT) 19 U/L (15-37); Alanine Aminotransfer ALT/SGPT 11 U/L (16-61); Albumin, Serum 3.4 g/dL (3.2-5.0); Alkaline Phosphatase 57 U/L (45-117); Anion Gap 7 (5-15); BUN 25 mg/dL (7-18); BUN/Creat Ratio 17.2 RATIO (10-20); Calcium,Total 8.5 mg/dL (8.5-10.1); Chloride 100 mmol/L (98-107); Creatinine, Serum 1.45 mg/dL (0.70-1.30); EST Glomerular Filtration Rate 49 mL/min (>60); Est Glom Filt Rate - Afr Amer 59 mL/min (>60); Globulin 4.1 g/dL (2.2-4.2); Glucose 174 mg/dL (74-106); Lipase 14 U/L (13-75); Potassium 4.4 mmol/L (3.5-5.1); Protein, Total 7.5 g/dL (6.4-8.2); Sodium Level 133 mmol/L (136-145); Troponin-I HS 10 pg/mL (3.0-78.0)
[2024-03-25 19:55] LABS: Bacteria 0 SEEN /hpf (None Seen); Mucous, Urine 0 SEEN /hpf (<or=2+); Squamous Epithelial Cells - UA 0 SEEN /hpf (0-5)
[2024-03-25 19:56] LABS: Color, Urine Yellow (Yellow); Glucose, Dipstick 50 mg/dl (Normal); Ketone-Dipstick 15 mg/dl (Negative); Leukocyte Esterase-Dipstick 500 /ul (Negative); Nitrite-Dipstick Negative (Negative); Occult Blood-Urine 250 /ul (Negative); Protein-Dipstick 100 mg/dl (Negative); Urine Bilirubin Dipstick Negative (Negative); Urine Clarity Clear (Clear); Urine Urobilinogen Normal (Normal); Urine pH 6.5 (5.0 - 8.0)
[2024-03-25 20:00] VITALS: BP 107/47; PULSE 69; RESP 30; TEMP 36.6; O2SAT 94
--- NOTE | 2024-03-25 20:00 | CT_ITS ---
EXAMINATION : Head CT w/out contrast HISTORY : dizzines COMPARISON : None. TECHNIQUE : Multiple contiguous axial images were obtained from the skull base to the vertex without intravenous contrast. A radiation dose optimization technique was used for this scan. FINDINGS : There is no evidence for acute intracranial hemorrhage, mass effect, or midline shift. There is no extra-axial fluid collection. There are periventricular white matter changes consistent with chronic microvascular ischemic disease. There is sulcal widening and ventricular enlargement consistent with cerebral atrophy. There is normal butts-white differentiation, without CT evidence of acute ischemia or infarct. The skull base and calvarium are unremarkable. The orbits are unremarkable. The paranasal sinuses are clear. The mastoid air cells are well-aerated. The soft tissues are unremarkable. CT/Brain/Head without Contrast IMPRESSION: No acute intracranial abnormality. Chronic involutional and ischemic changes of the brain. Electronically Signed: Joe Patel MD at 20:21 EDT ,
[2024-03-25 20:06] LABS: Red Blood Cells-Urine 25-50 SEEN /hpf (0-5); White Blood Cells 10-25 SEEN /hpf (0-5)
[2024-03-25] MEDS: diazePAM 2 MG Tablet 4 MG PO (21:11)
[2024-03-25 22:42] VITALS: BP 105/49; PULSE 74; RESP 16; TEMP 37.2; O2SAT 97
== END 2024-03-25 22:43 | disposition home or self-care (01) ==
PROVIDERS: Nurse Practitioner; Emergency Provider Emergency Medicine; PCP Family Medicine; Visit Provider Emergency Medicine
DX: R11.2 Nausea with vomiting, unspecified (principal); I25.10 Atherosclerotic heart disease of native coronary artery without angina pectoris; R42 Dizziness and giddiness; I25.2 Old myocardial infarction; E78.00 Pure hypercholesterolemia, unspecified; Z95.810 Presence of automatic (implantable) cardiac defibrillator; I10 Essential (primary) hypertension; Z82.49 Family history of ischemic heart disease and other diseases of the circulatory system
CPT/HCPCS: 70450; 71045; 80053; 81001; 83690; 84484; 85025; 93005; 96361; 96374; 99284; J7030; A4216; J2405

== ENCOUNTER 2024-03-30 03:31 | Emergency (ER) | payer MEDICARE, SELFPAY ==
[2018-12-28 14:17] VITALS: BMI 22.3
[2024-03-30 03:31] VITALS: BP 135/74; PULSE 66; RESP 18; TEMP 36.7; O2SAT 97; BMI 19.1
--- NOTE | 2024-03-30 03:47 | RAD_ITS ---
INDICATION: abd pain COMPARISON: 03/25/[address] 05/16/2016. FINDINGS: Single frontal view of the chest. No acute focal airspace disease or mass lesion. No pneumothorax. No pleural effusion. Cardiomediastinal silhouette is unremarkable. Left chest multilead pacemaker device in place. 2 frontal views of the abdomen. Multiple scattered air-fluid levels within nondilated bowel loops, likely mild ileus formation. No obvious free air. Again noted dense central abdominal calcifications. No definite suspicious calcifications. No mass appreciated. Catheter tip overlies central pelvis. RAD/Acute Abdomen Inc Chest IMPRESSION: Multiple scattered air-fluid levels within nondilated bowel loops, likely mild ileus formation. Chest with no acute disease. Electronically Signed: Teo Hunter MD at 4:52 EDT ,
[2024-03-30] MEDS: Fleet Enema 133 ML RC (04:44)
--- NOTE | 2024-03-30 05:21 | EDS_ITS ---
HPI History of Present Illness Chief Complaint: Constipation Informant: patient Narrative Narrative: Patient is an 89-year-old male with past medical history of hypertension hyperlipidemia coronary artery disease as well as BPH status post TURP with Rod catheter in place. The procedure was done recently and he was placed on oxycodone secondary to pain. Patient states he took the medication 4 times a day for 3 days and stopped this on March 25 secondary to adverse side effects. He states that he has had difficulty producing a bowel movement since that time. He denies any past medical history of small bowel obstruction or ileus however he does admit to previous abdominal surgeries. He states he feels the need to defecate and tries to do so but is unable to produce any stool. He was seen at an outside facility yesterday for the same issue and was placed on MiraLAX and he states despite taking this there is been no symptom resolution. 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 General weakness Otitis media Elevated troponin Orchitis of right testicle Sepsis Implantable cardioverter-defibrillator (ICD) at end of battery life Essential hypertension Family history of CVA Family history of hypertension FH: sudden cardiac (SCD) History of placement of internal cardiac defibrillator HTN (hypertension) Old myocardial infarction Angina pectoris Cardiomyopathy, ischemic Chronic systolic congestive heart failure HLD (hyperlipidemia) Abnormal result of cardiovascular function study, unspecified High risk medication use Iron deficiency anemia Chest pain, precordial Atherosclerotic heart disease of [place] coronary artery without angina pectoris Dyspnea Fatigue Hypokalemia Benign prostatic hypertrophy SBO (small bowel obstruction) Home Medications ?Medication ?Instructions ?Recorded ?Last Taken ?Type aspirin 81 mg chewable tablet 81 mg PO DAILY heart health 03/05/16 03/13/24 History nitroglycerin 0.4 mg sublingual 0.4 mg sublingual Q5M PRN Chest 02/17/22 Unknown Rx tablet Pain #25 tabs clopidogrel 75 mg tablet 75 mg PO DAILY #90 tabs 03/04/23 03/13/24 Rx carvedilol 3.125 mg tablet 3.125 mg PO BID #180 tabs 06/17/23 03/22/24 Rx DUPIXANT 300 mg IM .Q2W 10/11/23 03/08/24 History sacubitril 24 mg-valsartan 26 mg 1 tab PO BID #180 tabs 11/23/23 03/22/24 Rx tablet (Entresto) simvastatin 20 mg tablet 20 mg PO QHS 03/21/24 03/21/24 History ciprofloxacin HCl 500 mg tablet 500 mg PO BID #10 tabs 03/22/24 Unknown Rx (Cipro) oxycodone 5 mg tablet 5 mg PO Q6H PRN pain 7 days #14 03/22/24 Unknown Rx tabs diazepam 2 mg tablet (Valium) 2 mg PO BID PRN anxiety #10 tabs 03/25/24 Unknown Rx ondansetron 4 mg disintegrating 4 mg PO Q8H PRN PRN Nausea #10 tabs 03/25/24 Unknown Rx tablet Allergy/AdvReac Type Severity Reaction Status Date / Time morphine Allergy Intermediate Rash Verified 03/30/24 03:35 zolpidem tartrate (From AdvReac Intermediate CONFUSION Verified 03/30/24 03:35 Ambien) Family History Mother CAD (coronary artery disease) CVA (cerebral vascular accident) Myocardial infarction, Onset Age: 67 Hypertension Brother CAD (coronary artery disease) Hypertension Cancer Lung CA Myocardial infarction, Onset Age: 73 Father Myocardial infarction, Onset Age: 77 Daughter Cancer Son Myocardial infarction, Onset Age: 46 Other Cardiomyopathy, ischemic Chronic systolic congestive heart failure Fatigue General weakness Iron deficiency anemia Surgical History Hx of transurethral resection of prostate Presence of coronary artery bypass graft stent (~12/28/18) History of cardiac catheterization Hx of colonoscopy Hx of surgical procedure History of hernia repair History of prostate surgery History of left heart catheterization Social History household members: spouse Smoking Status: Never smoker alcohol intake: never substance use type: does not use caffeine: Yes Type: carbonated beverages and coffee Number of servings: 1 what type of physical activity do you participate in: none seatbelt use: always do you feel safe at home: Yes ROS ROS ED Constitutional Constitutional ED: Denies chills or fever(s) ENT ENT ED: Denies sore throat Cardiovascular Cardiovascular: Denies chest pain Respiratory/Chest Respiratory/Chest: Denies cough or dyspnea Gastrointestinal Gastrointestinal: Reports abdominal pain and constipation; Denies diarrhea, nausea or vomiting Musculoskeletal Musculoskeletal: Denies myalgias Integumentary Denies rash Neurologic Neurologic: Denies headache(s) Hematologic/Lymphatic Hematologic/Lymphatic: Reports easy bleeding and easy bruising EXAM Physical Exam Const Vital Signs: 03/30/24 03:31 Temperature 98.0 F Temperature Source Oral Pulse Rate 66 Respiratory Rate 18 Blood Pressure 135/74 H Blood Pressure Mean 94 Pulse Ox 97 Oxygen Delivery Method Room Air Positive well nourished and well developed General Appearance ED: well developed; Negative for pallor HEENT HEENT Narrative: Normocephalic atraumatic Eyes PERRL and EOMs intact bilaterally General Eye ED: Negative for pale conjunctiva or scleral icterus Neck supple Resp normal respiratory effort and clear to auscultation bilaterally Resp Narrative: Breath sounds are diminished throughout but overall clear to auscultation without signs of respiratory distress Cardio regular rate and regular rhythm GI non-tender and non-distended GI Narrative: Abdomen is soft nontender and nondistended with hypoactive bowel sounds. No voluntary guarding or rigidity or pulsatile mass. No increased tympany or fluid wave. Auscultation: hypoactive bowel sounds Palpation: soft Narrative: Rectal tone is normal. There is stool present at the rectal vault. No rectal prolapse noted. Extremity normal to inspection Neuro oriented x3, CN's II-XII intact bilaterally and no sensory deficits noted Sensorium / Orientation: alert Motor Exam: strength 5/5 throughout Psych mental status grossly normal Skin no rashes or lesions noted General Skin Exam: Negative for jaundice or pallor MDM MDM MDM Narrative Medical decision making narrative: Patient arrived to ER stable vitals and a soft nonsurgical abdomen. He does have risk factor for small bowel obstruction with his previous history of abdominal surgery but he is not distended he is not having vomiting and he does feel the urge to defecate and he has been passing gas. Therefore this is most likely constipation caused by opioid use. An acute abdominal x-ray was obtained which confirmed stool in the rectal vault which was present on exam as well without obvious signs of obstruction or perforation. The patient was given a Fleet followed by a soapsuds enema and after this he was able to produce a bowel movement. He will be advised to continue MiraLAX daily to prevent recurrence of constipation but at this time as patient's been able to have a bowel movement and by exam and workup he does not have signs of obstruction he is otherwise safe for discharge History & Record Review Discussion w/independent historian: Patient Radiography Diagnostic Testing: Clinical Impression(s) from Imaging Studies Acute Abdomen Series 03/30/24 03:47 IMPRESSION: Multiple scattered air-fluid levels within nondilated bowel loops, likely mild ileus formation. Chest with no acute disease. Electronically Signed: Teo Hunter MD at 4:52 EDT , Acute abdominal series with 1 view chest x-ray as interpreted by the emergency medicine physician reveals stool in the rectal vault consistent with constipation without perforation or dilation. There are a few scattered air- fluid levels consistent with mild ileus. Chest x-ray component reveals no acute infiltrate or pneumothorax. Discharge Plan Triage Chief Complaint: Constipation ED Provider: Dashawn Carmen Dx/Rx/DC Orders Clinical Impression: Constipation, Essential hypertension, Dual ICD (implantable cardioverter- defibrillator) in place, Coronary artery disease, History of BPH Instructions: ED Constipation (Adult) Prescriptions: No Action Entresto 24-26 mg tablet 1 tab PO BID Qty: 180 3RF aspirin 81 MG tablet,chewable 81 mg PO DAILY DUPIXANT 300 mg IM .Q2W simvastatin 20 mg tablet 20 mg PO QHS Rx Instructions: TAKE 1 TABLET BY MOUTH AT BEDTIME FOR CHOLESTEROL ciprofloxacin HCl [Cipro] 500 mg tablet 500 mg PO BID Qty: 10 0RF oxycodone 5 mg tablet 5 mg PO Q6H PRN (Reason: pain) 7 Days Qty: 14 0RF diazepam [Valium] 2 mg tablet 2 mg PO BID PRN (Reason: anxiety) Qty: 10 0RF ondansetron 4 mg tablet,disintegrating 4 mg PO Q8H PRN PRN (Reason: Nausea) Qty: 10 0RF nitroglycerin 0.4 mg tablet, sublingual 0.4 mg SUBLINGUAL Q5M PRN (Reason: Chest Pain) Qty: 25 3RF clopidogrel 75 mg tablet 75 mg PO DAILY Qty: 90 3RF Rx Instructions: prevent clotting carvedilol 3.125 mg tablet 3.125 mg PO BID Qty: 180 3RF Rx Instructions: must administer with a meal/food Primary Care Provider: Terry Mckeon Referrals: Terry Mckeon DO [Primary Care Provider] - Activity Restrictions/Additional Instructions: Please continue MiraLAX daily to prevent any reoccurrence of constipation. You can continue your other medications as directed by your family doctor and return to the ER should you have any further concerns Print Language: [place] Disposition Disposition: Home, Self Care
[2024-03-30 05:31] VITALS: BP 137/52; PULSE 70; RESP 16; TEMP 36.3; O2SAT 93
[2024-03-30 06:41] VITALS: BP 160/76; PULSE 72; RESP 16; TEMP 36.3; O2SAT 98
== END 2024-03-30 06:42 | disposition home or self-care (01) ==
PROVIDERS: Emergency Provider Emergency Medicine; PCP Family Medicine; Visit Provider Emergency Medicine
DX: K59.00 Constipation, unspecified (principal); I11.0 Hypertensive heart disease with heart failure; I50.22 Chronic systolic (congestive) heart failure; I25.10 Atherosclerotic heart disease of native coronary artery without angina pectoris; Z95.810 Presence of automatic (implantable) cardiac defibrillator; N40.0 Benign prostatic hyperplasia without lower urinary tract symptoms; E78.5 Hyperlipidemia, unspecified; Z79.899 Other long term (current) drug therapy; Z79.02 Long term (current) use of antithrombotics/antiplatelets; Z79.82 Long term (current) use of aspirin
CPT/HCPCS: 74022; 99284

== ENCOUNTER → 2024-05-17 | Outpatient (CLI) | payer MEDICARE, SELFPAY ==
[2018-12-28 14:17] VITALS: BMI 22.3
[2024-05-17 15:54] LABS: Creatinine, Serum 0.92 mg/dL (0.70-1.30); EST Glomerular Filtration Rate 83 mL/min (>60); Est Glom Filt Rate - Afr Amer 100 mL/min (>60)
== END | disposition home or self-care (01) ==
LOC: LAB 14:25
PROVIDERS: PCP Family Medicine
DX: R35.1 Nocturia (principal); R68.89 Other general symptoms and signs
CPT/HCPCS: 36415; 82565; 84153

== ENCOUNTER → 2024-05-30 | Outpatient (CLI) | payer MEDICARE, SELFPAY ==
[2018-12-28 14:17] VITALS: BMI 22.3
[2024-05-30 17:49] LABS: Absolute Lymphocyte Count 1.36 X10^3/uL (0.83-4.51); Absolute Neutrophil Count 5.8 X10^3/uL (2.0-7.7); Basophil# 0.04 X10^3/uL; Basophil% 0.5 % (0-1); Eosinophil# 0.01 X10^3/uL; Eosinophils% 0.1 % (0-5); Hematocrit 35.5 % (40-54); Hemoglobin 11.5 g/dL (13.0-16.5); Lymphocyte # 1.36 X10^3/ul (0.83-4.51); Lymphocyte % 16.6 % (19-41); Mean Corp Hgb Conc 32.4 g/dL (32-36); Mean Corpuscular Hgb 28.6 pg (27.0-32.0); Mean Corpuscular Volume 88.3 fL (80-94); Mean Platelet Vol. 12.4 fl (6.2-12.0); Monocyte# 0.99 X10^3/uL; Monocyte% 12.1 % (0-10); NRBC Flagged by Analyzer 0 % (0-5); Neutrophil # 5.76 X10^3/uL (2.7-7.7); Neutrophil % 70.3 % (47-70); Platelet Count 214 K/mm3 (150-450); RBC Distribution Width SD 45.4 fl (35.1-43.9); Red Blood Count 4.02 M/mm3 (4.6-6.2); White Blood Count 8.2 K/mm3 (4.4-11.0)
[2024-05-30 18:11] LABS: Erythrocyte Sedimentation Rate 18 mm/hr (0-20)
[2024-05-30 18:13] LABS: ALB/GLOB Ratio 0.7 RATIO (0.9-2.4); AST(SGOT) 24 U/L (15-37); Alanine Aminotransfer ALT/SGPT 11 U/L (16-61); Alkaline Phosphatase 63 U/L (45-117); Anion Gap 10 (5-15); BUN 22 mg/dL (7-18); BUN/Creat Ratio 18.2 RATIO (10-20); Calcium,Total 8.6 mg/dL (8.5-10.1); Chloride 102 mmol/L (98-107); Creatinine, Serum 1.21 mg/dL (0.70-1.30); EST Glomerular Filtration Rate 60 mL/min (>60); Est Glom Filt Rate - Afr Amer 73 mL/min (>60); Globulin 4.4 g/dL (2.2-4.2); Glucose 137 mg/dL (74-106); Potassium 3.1 mmol/L (3.5-5.1); Protein, Total 7.4 g/dL (6.4-8.2); Sodium Level 135 mmol/L (136-145)
== END | disposition home or self-care (01) ==
LOC: BFHLAB 14:41
PROVIDERS: PCP Family Medicine; Referring Provider Family Medicine; Visit Provider Family Medicine
DX: R53.83 Other fatigue (principal); I95.9 Hypotension, unspecified; R35.0 Frequency of micturition
CPT/HCPCS: 36415; 80053; 85025; 85652; 86140

== ENCOUNTER → 2024-05-31 | Outpatient (CLI) | payer MEDICARE, SELFPAY ==
[2018-12-28 14:17] VITALS: BMI 22.3
== END | disposition home or self-care (01) ==
LOC: LABSPEC 14:02
PROVIDERS: PCP Family Medicine; Referring Provider Family Medicine; Visit Provider Family Medicine
DX: R53.83 Other fatigue (principal); I95.9 Hypotension, unspecified; R35.0 Frequency of micturition
CPT/HCPCS: 87086; 87088; 87186

== ENCOUNTER → 2024-07-06 | Outpatient (CLI) | payer MEDICARE, SELFPAY ==
[2018-12-28 14:17] VITALS: BMI 22.3
[2024-07-06 15:35] LABS: Creatinine, Serum 1.03 mg/dL (0.70-1.30); EST Glomerular Filtration Rate 72 mL/min (>60); Est Glom Filt Rate - Afr Amer 88 mL/min (>60)
== END | disposition home or self-care (01) ==
LOC: LAB 14:40
PROVIDERS: PCP Family Medicine; Referring Provider Urology; Visit Provider Urology
DX: R33.9 Retention of urine, unspecified (principal)
CPT/HCPCS: 36415; 82565

== ENCOUNTER → 2024-08-03 | Outpatient (CLI) | payer MEDICARE, SELFPAY ==
[2018-12-28 14:17] VITALS: BMI 22.3
[2024-08-03 15:19] LABS: CRP 8.47 mg/L (0.0-3.0)
[2024-08-03 15:23] LABS: Erythrocyte Sedimentation Rate 12 mm/hr (0-20)
== END | disposition home or self-care (01) ==
LOC: BFHLAB 13:15
PROVIDERS: PCP Family Medicine; Referring Provider Family Medicine; Visit Provider Family Medicine
DX: M35.3 Polymyalgia rheumatica (principal)
CPT/HCPCS: 36415; 85652; 86140

== ENCOUNTER → 2024-09-07 | Outpatient (CLI) | payer MEDICARE, SELFPAY ==
[2018-12-28 14:17] VITALS: BMI 22.3
[2024-09-07 15:20] LABS: Erythrocyte Sedimentation Rate 20 mm/hr (0-20)
[2024-09-07 15:30] LABS: Absolute Lymphocyte Count 1.64 X10^3/uL (0.83-4.51); Absolute Neutrophil Count 7.8 X10^3/uL (2.0-7.7); Basophil# 0.05 X10^3/uL; Basophil% 0.5 % (0-1); Eosinophil# 0.23 X10^3/uL; Eosinophils% 2.3 % (0-5); Hematocrit 36.1 % (40-54); Hemoglobin 11.5 g/dL (13.0-16.5); Lymphocyte # 1.64 X10^3/ul (0.83-4.51); Lymphocyte % 16.1 % (19-41); Mean Corp Hgb Conc 31.9 g/dL (32-36); Mean Corpuscular Hgb 29.3 pg (27.0-32.0); Mean Corpuscular Volume 91.9 fL (80-94); Mean Platelet Vol. 11.6 fl (6.2-12.0); Monocyte# 0.46 X10^3/uL; Monocyte% 4.5 % (0-10); NRBC Flagged by Analyzer 0 % (0-5); Neutrophil # 7.75 X10^3/uL (2.7-7.7); Neutrophil % 76.2 % (47-70); Platelet Count 247 K/mm3 (150-450); RBC Distribution Width CV 14.9 % (11.6-14.6); RBC Distribution Width SD 50.4 fl (35.1-43.9); Red Blood Count 3.93 M/mm3 (4.6-6.2); White Blood Count 10.2 K/mm3 (4.4-11.0)
[2024-09-07 16:09] LABS: ALB/GLOB Ratio 0.9 RATIO (0.9-2.4); AST(SGOT) 17 U/L (15-37); Alanine Aminotransfer ALT/SGPT 19 U/L (16-61); Albumin, Serum 3.7 g/dL (3.2-5.0); Alkaline Phosphatase 72 U/L (45-117); Anion Gap 5 (5-15); BUN 17 mg/dL (7-18); BUN/Creat Ratio 19.6 RATIO (10-20); CRP 6.91 mg/L (0.0-3.0); Calcium,Total 8.7 mg/dL (8.5-10.1); Chloride 102 mmol/L (98-107); Creatinine, Serum 0.87 mg/dL (0.70-1.30); EST Glomerular Filtration Rate 88 mL/min (>60); Est Glom Filt Rate - Afr Amer 107 mL/min (>60); Globulin 4.1 g/dL (2.2-4.2); Glucose 128 mg/dL (74-106); Potassium 3.1 mmol/L (3.5-5.1); Protein, Total 7.8 g/dL (6.4-8.2); Sodium Level 139 mmol/L (136-145); Thyroid Stim Hormone (TSH) 0.861 uIU/mL (0.358-3.740)
== END | disposition home or self-care (01) ==
LOC: BFHLAB 13:15
PROVIDERS: PCP Family Medicine; Referring Provider Family Medicine; Visit Provider Family Medicine
DX: I25.10 Atherosclerotic heart disease of native coronary artery without angina pectoris (principal); R23.2 Flushing; M35.3 Polymyalgia rheumatica; R53.83 Other fatigue
CPT/HCPCS: 36415; 80053; 84403; 84443; 85025; 85652; 86140

== ENCOUNTER → 2024-12-08 | Outpatient (CLI) | payer MEDICARE, SELFPAY ==
[2018-12-28 14:17] VITALS: BMI 22.3
[2024-12-08 18:01] LABS: Erythrocyte Sedimentation Rate 8 mm/hr (0-20)
[2024-12-08 18:12] LABS: CRP < 2.90 mg/L (0.0-3.0)
== END | disposition home or self-care (01) ==
LOC: BFHLAB 14:18
PROVIDERS: PCP Family Medicine; Visit Provider Family Medicine
DX: M35.3 Polymyalgia rheumatica (principal)
CPT/HCPCS: 36415; 85652; 86140

== ENCOUNTER 2024-12-16 14:57 | Emergency (ER) | payer MEDICARE, SELFPAY ==
[2018-12-28 14:17] VITALS: BMI 22.3
[2024-12-16 14:58] VITALS: BP 146/83; PULSE 89; RESP 16; TEMP 36.9; O2SAT 96
[2024-12-16 15:01] VITALS: BP 146/83; PULSE 89; RESP 16; TEMP 36.9; O2SAT 96
--- NOTE | 2024-12-16 15:31 | EDS_ITS ---
HPI History of Present Illness Chief Complaint: Cold Sx Detail of Chief Complaint: Vomiting Informant: patient and family Narrative Narrative: Patient presents the emergency department with complaint of vomiting that started 2 days ago. Presents with his daughter wanting to make sure he is okay. Patient states that he started having dry heaves all of a sudden 2 days ago and then vomited all day yesterday. He has had no diarrhea. Denies chest pain. Denies cough. He had subjective fever at home. He denies urinary symptoms. 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 General weakness Otitis media Elevated troponin Orchitis of right testicle Sepsis Implantable cardioverter-defibrillator (ICD) at end of battery life Essential hypertension Family history of CVA Family history of hypertension FH: sudden cardiac (SCD) History of placement of internal cardiac defibrillator HTN (hypertension) Old myocardial infarction Angina pectoris Cardiomyopathy, ischemic Chronic systolic congestive heart failure HLD (hyperlipidemia) Abnormal result of cardiovascular function study, unspecified High risk medication use Iron deficiency anemia Chest pain, precordial Atherosclerotic heart disease of [place] coronary artery without angina pectoris Dyspnea Fatigue Hypokalemia Benign prostatic hypertrophy SBO (small bowel obstruction) Home Medications ?Medication ?Instructions ?Recorded ?Last Taken ?Type aspirin 81 mg tablet,delayed 81 mg PO DAILY 05/23/24 U nknown History release (Adult Low Dose Aspirin) dupilumab 300 mg/2 mL subcutaneous 300 mg subcut Q2W 0 05/23/24 Unknown History pen injector nitroglycerin 0.4 mg sublingual 0.4 mg sublingual Q5M PRN Chest 05/23/24 Unknown Rx tablet Pain #25 tabs tamsulosin 0.4 mg capsule 0.4 mg PO QDAY 05/23/24 Unkn own History simvastatin 20 mg tablet 20 mg PO QHS for cholesterol #90 08/23/24 Unknown Rx TABLETS carvedilol 6.25 mg tablet 6.25 mg PO BID #60 tabs 11/01 Unknown Rx gabapentin 100 mg capsule 100 mg PO QDAY PRN 11/10/24 Unknown History oxybutynin chloride 5 mg 5 mg PO QDAY 11/10/24 Unknow n History tablet,extended release 24 hr prednisone 5 mg tablet 5 mg PO QDAY 11/10/24 Unknow n History ondansetron 4 mg disintegrating 4 mg PO Q8H PRN PRN Na usea #10 tabs 12/16/24 Unknown Rx tablet Allergy/AdvReac Type Severity Reaction Status Date / Time morphine Allergy Intermediate Rash Verified 12/16/24 15:01 zolpidem tartrate (From AdvReac Intermediate CONFUSION Verified 12/16/24 15:01 Ambien) Family History Mother CAD (coronary artery disease) CVA (cerebral vascular accident) Myocardial infarction, Onset Age: 67 Hypertension Brother CAD (coronary artery disease) Hypertension Cancer Lung CA Myocardial infarction, Onset Age: 73 Father Myocardial infarction, Onset Age: 77 Daughter Cancer Son Myocardial infarction, Onset Age: 46 Other Cardiomyopathy, ischemic Chronic systolic congestive heart failure Fatigue General weakness Iron deficiency anemia Surgical History H/O dilation of urethra Hx of transurethral resection of prostate Presence of coronary artery bypass graft stent (~12/28/18) History of cardiac catheterization Hx of colonoscopy Hx of surgical procedure History of hernia repair History of prostate surgery History of left heart catheterization Social History household members: spouse Smoking Status: Never smoker alcohol intake: never substance use type: does not use caffeine: Yes Type: carbonated beverages and coffee Number of servings: 1 what type of physical activity do you participate in: none seatbelt use: always do you feel safe at home: Yes ROS ROS ED Review of Systems ROS Unobtainable: other Constitutional Constitutional ED: Reports lethargy; Denies chills, fever(s), sweats or weight loss Eyes Eyes: Denies blurry vision, change in vision or diplopia ENT ENT ED: Denies rhinorrhea or sore throat Cardiovascular Cardiovascular: Denies chest pain, orthopnea or racing heartbeat Respiratory/Chest Respiratory/Chest: Denies cough, dyspnea, dyspnea on exertion, orthopnea or sputum Gastrointestinal Gastrointestinal: Reports nausea and vomiting; Denies abdominal pain or diarrhea Genitourinary Genitourinary ED: Denies dysuria, hematuria or urinary frequency Musculoskeletal Musculoskeletal: Denies arthralgias, back pain, myalgias or neck pain Integumentary Denies abscess, Abrasions or rash Neurologic Neurologic: Denies headache(s) or weakness Psychiatric Psychiatric: Denies anxiety, depression or suicidal thoughts Endocrine Endocrinology: Denies polydipsia, polyphagia or polyuria Hematologic/Lymphatic Hematologic/Lymphatic: Denies easy bleeding, easy bruising or lymphadenopathy Allergic/Immunologic Allergic/Immunologic ED: Denies mouth swelling, tongue swelling or urticaria EXAM Physical Exam Const Vital Signs: 12/16/24 14:58 12/16/24 15:01 12/16/24 15:16 Temperature 98.4 F 98.4 F Temperature Source Temporal Temporal Pulse Rate 89 89 Respiratory Rate 16 16 Respiratory Effort Normal Respiratory Pattern Normal Blood Pressure 146/83 H 146/83 H Blood Pressure Mean 104 104 Pulse Ox 96 96 Oxygen Delivery Method Room Air Room Air Positive well nourished and well developed General Appearance ED: well developed and NAD HEENT Reports TM's clear and moist mucous membranes normocephalic and atraumatic; Negative for trauma or tenderness Tympanic Membrane ED: Yes TM's clear Eyes PERRL and EOMs intact bilaterally General Eye ED: Negative for pale conjunctiva or scleral icterus Neck no lymphadenopathy, supple and no JVD General: Negative for tenderness Chest Wall inspection of chest normal and palpation of chest normal Chest: Negative for tenderness Resp normal respiratory effort and clear to auscultation bilaterally Effort and Inspection: Negative for respiratory distress or pain with movement Auscultation: Negative for rhonchi, wheezes or diminished lung sounds Cardio regular rate, regular rhythm, S1 normal heart sound, S2 normal heart sound and no murmurs Peripheral Pulses: pulses 2+ throughout GI normal to inspection, nondistended, normoactive bowel sounds, soft to palpation, non-tender, non-distended and no masses Back/Spine no CVA tenderness and no thoracic nor lumbar tenderness Extremity normal to inspection General Extremety ED: Negative for edema General Extremity: Negative for edema Neuro oriented x3, CN's II-XII intact bilaterally, no sensory deficits noted and gait normal Sensorium / Orientation: awake, alert, oriented to person, oriented to place and oriented to time Motor Exam: strength 5/5 throughout and strength abnormal Psych mental status grossly normal Skin no rashes or lesions noted and no wounds MDM MDM MDM Narrative Medical decision making narrative: Patient presents the emergency department complaint of vomiting x 2 days. No diarrhea. No real cough or fever or other urinary symptoms. Clinically he looks well. He denies dizziness or vertigo symptoms patient had an IV line established and he was given a liter normal same fluid bolus. CBC with differential obtained showed a white count of 8.6 with hemoglobin 13.8 and platelet count of 248. Chemistries unremarkable. Urinalysis was normal. COVID flu and RSV testing was negative. While in the department he did have Zofran 4 mg IV. He had no further vomiting. He feels well. At this point he will be discharged to home with a prescription for Zofran. Etiology of vomiting unclear although this could be viral type syndrome. Lab Data Attestation: I reviewed the patient's lab results. Labs: Laboratory Results - last 24 hr 12/16/24 12/16/24 15:45 15:50 WBC 8.6 RBC 4.73 Hgb 13.8 Hct 42.5 MCV 89.9 MCH 29.2 MCHC 32.5 RDW Std Deviation 45.1 H RDW Coeff of Arleen 13.7 Plt Count 248 MPV 10.6 Immature Gran % (Auto) 0.200 Neut % (Auto) 78.1 H Lymph % (Auto) 15.2 L [place] % (Auto) 6.1 Eos % (Auto) 0.3 Baso % (Auto) 0.1 Absolute Neuts (auto) 6.7 Absolute Lymphs (auto) 1.31 Nucleated RBC % 0 Sodium 135 L Potassium 3.8 Chloride 100 Carbon Dioxide 27.0 Anion Gap 8 BUN 16 Creatinine 0.84 Estim Creat Clear Calc 44.07 Est GFR (MDRD) Af Amer 111 Est GFR (MDRD) Non-Af 92 BUN/Creatinine Ratio 19.0 Glucose 155 H Calcium 9.9 Urine Color Straw Urine Clarity Clear Urine pH 6.5 Ur Specific [place] 1.010 Urine Protein Negative Urine Glucose (UA) Normal Urine Ketones Negative Urine Occult Blood Negative Urine Nitrite Negative Urine Bilirubin Negative Urine Urobilinogen Normal Ur Leukocyte Esterase 25 H Urine RBC 0 SEEN Urine WBC 0 SEEN Ur Squamous Epith Cells 0 SEEN Urine Bacteria 0 SEEN Urine Mucus 0 SEEN Discharge Plan Triage Chief Complaint: Cold Sx ED Provider: Ungur,Remus Dx/Rx/DC Orders Clinical Impression: Vomiting Instructions: ED Vomiting (Adult) Prescriptions: New ondansetron 4 mg tablet,disintegrating 4 mg PO Q8H PRN PRN (Reason: Nausea) Qty: 10 0RF No Action tamsulosin 0.4 mg capsule 0.4 mg PO QDAY aspirin [Adult Low Dose Aspirin] 81 mg tablet,delayed release (DR/EC) 81 mg PO DAILY dupilumab 300 mg/2 mL pen injector 300 mg subcut Q2W nitroglycerin 0.4 mg tablet, sublingual 0.4 mg SUBLINGUAL Q5M PRN (Reason: Chest Pain) Qty: 25 3RF gabapentin 100 mg capsule 100 mg PO QDAY PRN oxybutynin chloride 5 mg tablet extended release 24hr 5 mg PO QDAY prednisone 5 mg tablet 5 mg PO QDAY carvedilol 6.25 mg tablet 6.25 mg PO BID Qty: 60 3RF Rx Instructions: must administer with a meal/food simvastatin 20 mg tablet 20 mg PO QHS Qty: 90 3RF Primary Care Provider: Terry Mckeon Referrals: Terry Mckeon DO [Primary Care Provider] - 3-5 Days Print Language: [place] Disposition Disposition: Home, Self Care
[2024-12-16] MEDS: 0.9% Normal Saline (1000mL) 1,000 ML 1000 ML IV (15:42)
[2024-12-16] MEDS: Ondansetron 4 MG/2 ML Vial IV (15:42)
[2024-12-16 15:55] LABS: Absolute Lymphocyte Count 1.31 X10^3/uL (0.83-4.51); Absolute Neutrophil Count 6.7 X10^3/uL (2.0-7.7); Basophil# 0.01 X10^3/uL; Basophil% 0.1 % (0-1); Eosinophil# 0.03 X10^3/uL; Eosinophils% 0.3 % (0-5); Hematocrit 42.5 % (40-54); Hemoglobin 13.8 g/dL (13.0-16.5); Lymphocyte # 1.31 X10^3/ul (0.83-4.51); Lymphocyte % 15.2 % (19-41); Mean Corp Hgb Conc 32.5 g/dL (32-36); Mean Corpuscular Hgb 29.2 pg (27.0-32.0); Mean Corpuscular Volume 89.9 fL (80-94); Mean Platelet Vol. 10.6 fl (6.2-12.0); Monocyte# 0.53 X10^3/uL; Monocyte% 6.1 % (0-10); NRBC Flagged by Analyzer 0 % (0-5); Neutrophil # 6.74 X10^3/uL (2.7-7.7); Neutrophil % 78.1 % (47-70); Platelet Count 248 K/mm3 (150-450); RBC Distribution Width CV 13.7 % (11.6-14.6); RBC Distribution Width SD 45.1 fl (35.1-43.9); Red Blood Count 4.73 M/mm3 (4.6-6.2); White Blood Count 8.6 K/mm3 (4.4-11.0)
[2024-12-16 15:58] LABS: Bacteria 0 SEEN /hpf (None Seen); Mucous, Urine 0 SEEN /hpf (<or=2+); Squamous Epithelial Cells - UA 0 SEEN /hpf (0-5); White Blood Cells 0 SEEN /hpf (0-5)
[2024-12-16 16:07] LABS: Anion Gap 8 (5-15); BUN 16 mg/dL (7-18); Calcium,Total 9.9 mg/dL (8.5-10.1); Chloride 100 mmol/L (98-107); Creatinine, Serum 0.84 mg/dL (0.70-1.30); EST Glomerular Filtration Rate 92 mL/min (>60); Est Glom Filt Rate - Afr Amer 111 mL/min (>60); Estimated Creatinine Clearance 44.07 ml/min; Glucose 155 mg/dL (74-106); Potassium 3.8 mmol/L (3.5-5.1); Sodium Level 135 mmol/L (136-145)
[2024-12-16 16:08] LABS: Color, Urine Straw (Yellow); Glucose, Dipstick Normal (Normal); Ketone-Dipstick Negative (Negative); Leukocyte Esterase-Dipstick 25 /ul (Negative); Nitrite-Dipstick Negative (Negative); Occult Blood-Urine Negative /ul (Negative); Protein-Dipstick Negative (Negative); Urine Bilirubin Dipstick Negative (Negative); Urine Clarity Clear (Clear); Urine Urobilinogen Normal (Normal); Urine pH 6.5 (5.0 - 8.0)
[2024-12-16 16:13] LABS: Red Blood Cells-Urine 0 SEEN /hpf (0-5)
[2024-12-16 17:23] VITALS: BP 146/83; PULSE 89; RESP 17; TEMP 36.9; O2SAT 96
== END 2024-12-16 17:24 | disposition home or self-care (01) ==
PROVIDERS: Emergency Provider Emergency Medicine; PCP Family Medicine; Visit Provider Emergency Medicine
DX: R11.10 Vomiting, unspecified (principal); I11.0 Hypertensive heart disease with heart failure; I50.22 Chronic systolic (congestive) heart failure; I25.10 Atherosclerotic heart disease of native coronary artery without angina pectoris; E78.5 Hyperlipidemia, unspecified; I25.2 Old myocardial infarction; Z95.1 Presence of aortocoronary bypass graft; Z95.5 Presence of coronary angioplasty implant and graft; Z79.82 Long term (current) use of aspirin; Z95.810 Presence of automatic (implantable) cardiac defibrillator; Z82.49 Family history of ischemic heart disease and other diseases of the circulatory system
CPT/HCPCS: 80048; 81001; 85025; 87631; 96361; 96374; 99283; A4216; J2405

== ENCOUNTER → 2025-02-05 | Outpatient (CLI) | payer MEDICARE, SELFPAY ==
[2018-12-28 14:17] VITALS: BMI 22.3
[2025-02-05 18:29] LABS: Erythrocyte Sedimentation Rate 13 mm/hr (0-20)
== END | disposition home or self-care (01) ==
LOC: BFHLAB 14:22
PROVIDERS: PCP Family Medicine; Visit Provider Family Medicine
DX: M35.3 Polymyalgia rheumatica (principal)
CPT/HCPCS: 36415; 85652; 86140

== ENCOUNTER 2025-04-27 20:05 | Emergency (ER) | payer MEDICARE, SELFPAY ==
[2018-12-28 14:17] VITALS: BMI 22.3
[2025-04-27 20:05] VITALS: BP 157/74; PULSE 96; RESP 14; TEMP 36.6; O2SAT 98; BMI 21.2
--- NOTE | 2025-04-27 20:38 | EX.ED.DYSGE1 ---
HPI History of Present Illness Chief Complaint: Nausea/Vomiting Detail of Chief Complaint: Nausea and diarrhea Informant: patient Narrative Narrative: Patient presents to the emergency department stating that he thinks he is dehydrated. Started with nausea and dry heaves last evening. He had 1 episode of diarrhea that he thought was black. Patient took Pepto at home. He denies abdominal pain. Denies fever. Denies sick contacts. Denies recent antibiotic usage. Patient does wear a chronic indwelling Rod catheter. He denies fevers or chills or sweats. 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 General weakness Otitis media Elevated troponin Orchitis of right testicle Sepsis Implantable cardioverter-defibrillator (ICD) at end of battery life Essential hypertension Family history of CVA Family history of hypertension FH: sudden cardiac (SCD) History of placement of internal cardiac defibrillator HTN (hypertension) Old myocardial infarction Angina pectoris Cardiomyopathy, ischemic Chronic systolic congestive heart failure HLD (hyperlipidemia) Abnormal result of cardiovascular function study, unspecified High risk medication use Iron deficiency anemia Chest pain, precordial Atherosclerotic heart disease of [place] coronary artery without angina pectoris Dyspnea Fatigue Hypokalemia Benign prostatic hypertrophy SBO (small bowel obstruction) Home Medications ?Medication ?Instructions ?Recorded ?Last Taken ?Type aspirin 81 mg tablet,delayed 81 mg PO DAILY 05/23/24 Unknown History release (Adult Low Dose Aspirin) dupilumab 300 mg/2 mL subcutaneous 300 mg subcut Q2W 05/23/24 Unknown History pen injector nitroglycerin 0.4 mg sublingual 0.4 mg sublingual Q5M PRN Chest 05/23/24 Unknown Rx tablet Pain #25 tabs tamsulosin 0.4 mg capsule 0.4 mg PO QDAY 05/23/24 Unknown History simvastatin 20 mg tablet 20 mg PO QHS for cholesterol #90 08/23/24 Unknown Rx TABLETS carvedilol 6.25 mg tablet 6.25 mg PO BID #60 tabs 11/10/24 Unknown Rx gabapentin 100 mg capsule 100 mg PO QDAY PRN 11/10/24 Unknown History oxybutynin chloride 5 mg 5 mg PO QDAY 11/10/24 Unknown History tablet,extended release 24 hr prednisone 5 mg tablet 5 mg PO QDAY 11/10/24 Unknown History ondansetron 4 mg disintegrating 4 mg PO Q8H PRN PRN Nausea #10 tabs 12/16/24 Unknown Rx tablet sacubitril 24 mg-valsartan 26 mg 1 tab PO BID #60 tabs 03/14/25 Unknown Rx tablet (Entresto) cephalexin 500 mg capsule 500 mg PO Q6 #28 CAPSULES 04/27/25 Unknown Rx ondansetron 4 mg disintegrating 4 mg PO Q6H PRN nausea and 04/27/25 Unknown Rx tablet vomiting #10 tabs phenazopyridine 200 mg tablet 200 mg PO TID 6 doses #5 tabs 04/27/25 Unknown Rx (Pyridium) Allergy/AdvReac Type Severity Reaction Status Date / Time morphine Allergy Intermediate Rash Verified 04/27/25 20:05 zolpidem tartrate (From AdvReac Intermediate CONFUSION Verified 04/27/25 20:05 Ambien) Family History Mother CAD (coronary artery disease) CVA (cerebral vascular accident) Myocardial infarction, Onset Age: 67 Hypertension Brother CAD (coronary artery disease) Hypertension Cancer Lung CA Myocardial infarction, Onset Age: 73 Father Myocardial infarction, Onset Age: 77 Daughter Cancer Son Myocardial infarction, Onset Age: 46 Other Cardiomyopathy, ischemic Chronic systolic congestive heart failure Fatigue General weakness Iron deficiency anemia Surgical History H/O dilation of urethra Hx of transurethral resection of prostate Presence of coronary artery bypass graft stent (~12/28/18) History of cardiac catheterization Hx of colonoscopy Hx of surgical procedure History of hernia repair History of prostate surgery History of left heart catheterization Social History household members: spouse Smoking Status: Never smoker alcohol intake: never substance use type: does not use caffeine: Yes Type: carbonated beverages and coffee Number of servings: 1 what type of physical activity do you participate in: none seatbelt use: always do you feel safe at home: Yes ROS ROS ED Review of Systems ROS Unobtainable: other Constitutional Constitutional ED: Reports lethargy; Denies chills, fever(s), sweats or weight loss Eyes Eyes: Denies blurry vision, change in vision or diplopia ENT ENT ED: Denies rhinorrhea or sore throat Cardiovascular Cardiovascular: Denies chest pain, orthopnea or racing heartbeat Respiratory/Chest Respiratory/Chest: Denies cough, dyspnea, dyspnea on exertion, orthopnea or sputum Gastrointestinal Gastrointestinal: Reports diarrhea, nausea and vomiting; Denies abdominal pain Genitourinary Genitourinary ED: Denies dysuria, hematuria or urinary frequency Musculoskeletal Musculoskeletal: Denies arthralgias, back pain, myalgias or neck pain Integumentary Denies abscess, Abrasions or rash Neurologic Neurologic: Denies headache(s) or weakness Psychiatric Psychiatric: Denies anxiety, depression or suicidal thoughts Endocrine Endocrinology: Denies polydipsia, polyphagia or polyuria Hematologic/Lymphatic Hematologic/Lymphatic: Denies easy bleeding, easy bruising or lymphadenopathy Allergic/Immunologic Allergic/Immunologic ED: Denies mouth swelling, tongue swelling or urticaria EXAM Physical Exam Const Vital Signs: 04/27/25 20:05 Temperature 98 F Temperature Source Temporal Pulse Rate 96 Respiratory Rate 14 Blood Pressure 157/74 H Blood Pressure Mean 101 Pulse Ox 98 Oxygen Delivery Method Room Air Positive well nourished and well developed General Appearance ED: well developed and NAD HEENT Reports TM's clear and moist mucous membranes normocephalic and atraumatic; Negative for trauma or tenderness Tympanic Membrane ED: Yes TM's clear Eyes PERRL and EOMs intact bilaterally General Eye ED: Negative for pale conjunctiva or scleral icterus Neck no lymphadenopathy, supple and no JVD General: Negative for tenderness Chest Wall inspection of chest normal and palpation of chest normal Chest: Negative for tenderness Resp normal respiratory effort and clear to auscultation bilaterally Effort and Inspection: Negative for respiratory distress or pain with movement Auscultation: Negative for rhonchi, wheezes or diminished lung sounds Cardio regular rate, regular rhythm, S1 normal heart sound, S2 normal heart sound and no murmurs Peripheral Pulses: pulses 2+ throughout GI normal to inspection, nondistended, normoactive bowel sounds, soft to palpation, non-tender, non-distended and no masses Back/Spine no CVA tenderness and no thoracic nor lumbar tenderness Extremity normal to inspection General Extremety ED: Negative for edema General Extremity: Negative for edema Neuro oriented x3, CN's II-XII intact bilaterally, no sensory deficits noted and gait normal Sensorium / Orientation: awake, alert, oriented to person, oriented to place and oriented to time Motor Exam: strength 5/5 throughout and strength abnormal Psych mental status grossly normal Skin no rashes or lesions noted and no wounds MDM MDM MDM Narrative Medical decision making narrative: Patient presents with nausea and dry heaves as well as 1 episode of diarrhea that started last evening. Patient denies fever or chills or sweats. He has indwelling Rod catheter. Denies sick contacts. Denies any abdominal pain. Clinically looks well. In the differential would be viral gastroenteritis versus UTI or other etiology. He is denying any chest pain. IV line established. CBC with differential obtained showed a white count of 9.8 with hemoglobin 12.2 and platelet count of 281. Chemistries unremarkable. BUN 13 and creatinine 0.9. LFTs were normal. Lipase normal at 15. Urinalysis positive for nitrites as well as 25-50 WBCs and +2 bacteria. Urine culture sent. Patient was started on Rocephin 1 g IV. Will treat with Keflex for home. Will treat with Pyridium. Will write a prescription for Zofran as well. He felt much improved after treatment with Zofran and IV fluids. Discharged to home stable condition. Lab Data Attestation: I reviewed the patient's lab results. Labs: Laboratory Results - last 24 hr 04/27/25 04/27/25 20:40 20:55 WBC 9.8 RBC 4.03 L Hgb 12.2 L Hct 36.0 L MCV 89.3 MCH 30.3 MCHC 33.9 RDW Std Deviation 43.9 RDW Coeff of Arleen 13.6 Plt Count 201 MPV 11.6 Immature Gran % (Auto) 0.400 Neut % (Auto) 71.1 H Lymph % (Auto) 19.6 Gray % (Auto) 7.4 Eos % (Auto) 1.0 Baso % (Auto) 0.5 Absolute Neuts (auto) 7.0 Absolute Lymphs (auto) 1.92 Nucleated RBC % 0 Sodium 135 Potassium 4.2 Chloride 100 Carbon Dioxide 23.2 Anion Gap 12 BUN 13 Creatinine 0.90 Estim Creat Clear Calc 42.74 L Est GFR (MDRD) Non-Af 82 BUN/Creatinine Ratio 14.1 Glucose 285 H Calcium 9.2 Total Bilirubin 0.75 AST 30 ALT 15 Alkaline Phosphatase 65 Total Protein 7.3 Albumin 4.0 Globulin 3.3 Albumin/Globulin Ratio 1.2 Lipase 15 Urine Color Yellow Urine Clarity Sl. Cloudy Urine pH 6.0 Ur Specific [place] 1.015 Urine Protein 30 H Urine Glucose (UA) 1000 H Urine Ketones 5 H Urine Occult Blood 25 H Urine Nitrite Positive H Urine Bilirubin Negative Urine Urobilinogen Normal Ur Leukocyte Esterase 500 H Urine RBC 0-5 SEEN Urine WBC 25-50 SEEN Ur Squamous Epith Cells 0 SEEN Urine Bacteria 2+ Urine Mucus 0 SEEN Discharge Plan Triage Chief Complaint: Nausea/Vomiting ED Provider: Timoteo Mckenna Dx/Rx/DC Orders Clinical Impression: Acute UTI, Diarrhea Instructions: UTIs, ED Vomiting (Adult) Prescriptions: New cephalexin 500 mg capsule 500 mg PO Q6 Qty: 28 0RF phenazopyridine [Pyridium] 200 mg tablet 200 mg PO TID Qty: 5 0RF ondansetron 4 mg tablet,disintegrating 4 mg PO Q6H PRN (Reason: nausea and vomiting) Qty: 10 0RF No Action tamsulosin 0.4 mg capsule 0.4 mg PO QDAY aspirin [Adult Low Dose Aspirin] 81 mg tablet,delayed release (DR/EC) 81 mg PO DAILY dupilumab 300 mg/2 mL pen injector 300 mg subcut Q2W nitroglycerin 0.4 mg tablet, sublingual 0.4 mg SUBLINGUAL Q5M PRN (Reason: Chest Pain) Qty: 25 3RF gabapentin 100 mg capsule 100 mg PO QDAY PRN oxybutynin chloride 5 mg tablet extended release 24hr 5 mg PO QDAY prednisone 5 mg tablet 5 mg PO QDAY carvedilol 6.25 mg tablet 6.25 mg PO BID Qty: 60 3RF Rx Instructions: must administer with a meal/food ondansetron 4 mg tablet,disintegrating 4 mg PO Q8H PRN PRN (Reason: Nausea) Qty: 10 0RF simvastatin 20 mg tablet 20 mg PO QHS Qty: 90 3RF Entresto 24-26 mg tablet 1 tab PO BID Qty: 60 11RF Primary Care Provider: Terry Mckeon Referrals: Linda,Terry, DO [Primary Care Provider] - 3-5 Days Print Language: Syriac Disposition Disposition: Home, Self Care
[2025-04-27] MEDS: 0.9% Normal Saline (1000mL) 1,000 ML 1000 ML IV (20:40)
[2025-04-27] MEDS: Ondansetron 4 MG/2 ML Vial IV (20:52)
--- OUTSIDE RECORDS SUMMARY | 2025-04-27 20:53 | XMS RPT_ITS | CCD ---
Author Organization [facility] ion [facility] Care Team Providers Care [employer] Cutter Hand Name Role Phone TERESITA Grubbs, Elsy Denis Unavailable Unavailable TERESITA Grubbs, Elsy Denis Unavailable Unavailable Yaritza Gibson Primary Care Provider Pcp, No Primary Care Provider UnavailMerrill Desouza Primary Care Provider John Cleveland Primary Care Provider TERESITA Grubbs, Elsy Denis Unavailable Unavailable TERESITA Grubbs, Elsy Denis Unavailable Unavailable TERESITA Grubbs, Elsy Denis Unavailable Unavailable Viveros, Leonora M Unavailable Unavailable Felice, Leonora M Unavailable Unavailable Maureen Forman Unavailable Unavailable Maureen Forman Unavailable Unavailable Malika LO, Abril Palomo Unavailable Robbi Abbott MD Unavailable Malika LO, Abril Palomo Unavailable TERESITA Grubbs, Elsy Denis Unavailable Unavailable TERESITA Grubbs, Elsy Denis Unavailable Unavailable TERESITA Grubbs, Elsy Denis Unavailable Unavailable TERESITA Thomas, Adelaida Denis Unavailable UnavailShailesh Gillette Primary Care Provider UnavailDr. Robbi Taylor Attending Provider Dr. Robbi Abbott Referring Provider [phone] Shailesh Mancini Referring Provider Unavailable Jarad LIVE IN HOUSEKEEPER NANNY, LIVE IN HOUSEKEEPER NANNYWilner Galloway Attending Provider Shailesh Mancini Primary Care Provider UnavailDr. Robbi Taylor Attending Provider [phone] Dr. Shailesh Mancini Primary Care Provider Dr. Robbi Abbott Attending Provider Dr. Robbi Abbott Referring Provider Shailesh Mancini Referring Provider Unavailable Dr. Shailesh Mancini Primary Care Provider Dr. Shailesh Mancini Referring Provider Sloane Grubbs Attending Provider Unavailable Dr. John Mckeon Primary Care Provider Abril Daly Attending Provider Unavailable Dr. Timoteo Mullins Attending Provider Dr. Timoteo Mullins Referring Provider Dr. John Mckeon Referring Provider Dr. Ana Paula Harrington Attending Provider Dr. John Mckeon Primary Care Provider Dr. John Mckeon Referring Provider Alexia Hendricks Attending Provider Unavailable Dr. John Mckeon Primary Care Provider Dr. John Mckeon Referring Provider Alexia Hendricks Attending Provider Unavailable MD Murray Morgan Emergency Provider Dr. Manisha Varela Admit Provider Dr. Manisha Varela Other Provider Dr. Natanael Nowak Attending Provider Dr. Natanael Nowak Other Provider Dr. Manisha Varela Attending Provider Dr. John Mckeon Primary Care Provider Dr. Timoteo Mullins Attending Provider Dr. Nika Gan Attending Provider Dr. Zacarias Valdes Referring Provider Dr. Timoteo Mullins Referring Provider Dr. John Mckeon Referring Provider Andrés EPPS, MORTEZA Marie Attending Provider ZAMBRANO, ASMITA W Referring Unavailable SADIE, JOHN A Primary Care Unavailable ZAMBRANO, ASMITA W Admitting Unavailable ZAMBRANO, ASMITA W Attending Unavailable SADIE, JOHN A Primary Care Unavailable Sadie DO, John A Primary Care Provider Dr. John Mckeon DO Primary Care Provider Sadie MARCUS, Dr. Stewart Referring Provider [phone] Susanna PASCUAL, Dr. Mahmood Attending Provider Susanna PASCUAL, Dr. Mahmood Referring Provider [phone] Sadie MARCUS, Dr. Stewart Attending Provider [phone] Clarisa MARCUS, Dr. Mahmood Attending Provider [phone] Clarisa MARCUS, Dr. Mahmood Emergency Provider [phone] ZAMBRANO, ASMITA W Attending Unavailable SADIE, JOHN A Primary Care Unavailable SADIE, JOHN A Primary Care Unavailable ZAMBRANO, ASMITA W Attending Unavailable SADIE, JOHN A Primary Care Unavailable SADIE, JOHN A Primary Care Unavailable ZAMBRANO, ASMITA W Attending Unavailable SADIE, JOHN A Primary Care Unavailable ZAMBRANO, ASMITA W Attending Unavailable SADIE, JOHN A Primary Care Unavailable SADIE, JOHN A Primary Care Unavailable SADIE, JOHN A Primary Care Unavailable SADIE, JOHN A Primary Care Unavailable SADIE, JOHN A Primary Care Unavailable SADIE, JOHN A Primary Care Unavailable SADIE, JOHN A Primary Care Unavailable SADIE, JOHN A Primary Care Unavailable CHERYL SUTHERLAND Attending Unavailable LISSYU JIAN JIMÉNEZ Referring Unavailable SADIE, JOHN A Primary Care Unavailable MARYURI COLEMAN Attending Unavailable Sadie, John Primary Care Unavailable Sadie, John Attending Unavailable Sadie, John Primary Care Unavailable Sadie, John Referring Unavailable Sadie, John Primary Care Unavailable Sadie, John Referring Unavailable Susanna, Timoteo Attending Unavailable Sadie, John Primary Care Unavailable Susanna, Timoteo Attending Unavailable Susanna, Timoteo Referring Unavailable Sadie, John Referring Unavailable Cynthia Bowen NP Attending Unavailable Sadie, John Primary Care Unavailable Sadie, John Primary Care Unavailable Sadie, John Referring Unavailable Roof LIVE IN HOUSEKEEPER NANNY, Asmita Galloway Attending Unavailable Sadie, John Primary Care Unavailable Susanna, Timoteo Referring Unavailable Susanna, Timoteo Attending Unavailable Sadie, John Primary Care Unavailable Susanna, Timoteo Attending Unavailable Susanna, Timoteo Referring Unavailable Sadie, John Primary Care Unavailable Sadie, John Referring Unavailable Sadie, John Attending Unavailable Sadie, John Attending Unavailable Sadie, John Primary Care Unavailable Sadie, John Attending Unavailable Sadie, John Primary Care Unavailable Sadie, John Primary Care Unavailable COLEMAN, BR Referring Unavailable COLEMAN, BR Attending Unavailable Sadie, John Primary Care Unavailable Ungur, Remus Attending Unavailable Sadie, John Primary Care Unavailable Sadie, John Referring Unavailable Sadie, John Attending Unavailable Sadie, John Primary Care Unavailable Asmita Zambrano, II Referring Unavailable Asmita Zambrano, II Attending Unavailable Sadie, John Primary Care Unavailable Sadie, John Referring Unavailable Sadie, John Attending Unavailable Allergies Allergy Classification Reported Allergen(s) Allergy Type Date of Onset Reaction(s) Facility Opioid Agonists (1 source) Morphine Drug Allergy 3 [facility] (20 sources) Morphine; Translations: [MORPHINE] Drug Allergy 3 [facility] (19 sources) zolpidem; Translations: [zolpidem tartrate] Drug Allergy 1 [facility] (15 sources) zolpidem; Translations: [ZOLPIDEM] Drug Allergy 9 Hallucinations, Unknown Hospitals 2 Repository (1 source) Morphine Drug Allergy 5 [facility] Repository Medications Current Medications Medication Drug Class(es) Dates Sig (Normalized) Sig (Original) aspirin 81 mg delayed release oral tablet (20 sources) Platelet Aggregation Inhibitor, Nonsteroidal Anti-inflammatory Drug Start: 05-23-2024 Aspirin (Adult Low Dose Aspirin) 81 mg tablet,delayed release (DR/EC) Active 81 mg PO DAILY May 23, 2024 12:00am Start: 03-05-2016 End: 05-23-2024 take 1 tablet by mouth once daily Aspirin 81 MG tablet,chewable Discontinued 81 mg PO DAILY March 05, 2016 12:00am May 23, 2024 2:26pm Start: 08-10-2008 take 1 tablet by mayda th once daily ASPIRIN EC 81 MG TBEC One tablet by mouth daily ASPIRIN [id number] Abril Daly RN Start: 06-19-2005 take 1 tablet by mayda th once daily ASPIRIN 81 MG TABS One tablet by mouth daily ASPIRIN [id number] Leonora Adele Viveros Comment on above: Take one (1) tablet daily . bicalutamide 50 mg oral tablet (10 sources) Androgen Receptor Inhibitor Start: 06-28-20 End: 06-28-20 take 1 tablet by mouth once daily bicalutamide (Casodex) 50 mg tablet Indications: Malignant neoplasm of prostate (Multi) Take 1 tablet (50 mg total) by mouth once daily. Take at the same time every day. 21 tablet 06/28/2024 06/28/2025 Active calcium chloride 0.0014 meq/ml / potassium chloride 0.004 meq/ml / sodium chloride 0.103 meq/ml / sodium lactate 0.028 meq/ml injectable solution (3 sources) Start: 07-25-20 take 100 mL intravenously every hour 100 mL/hr, intravenous, Continuous, Starting on Wed07/25/24 at 1200, Recovery (only) carvedilol 6.25 mg oral tablet (20 sources) alpha-Adrenergic Mona, beta-Adrenergic Mona Start: 11-10-19 take 1 tablet by mouth twice daily at mealtime Carvedilol 6.25 mg tablet Active 6.25 mg PO TWICE A DAY 60 November 10, 2024 12:19pm must administer with a meal/food Start: 06-17-2023 End: 11-10-2024 take 1 tablet by mouth twice daily carvedilol (Coreg) 3.125 mg tablet Take 1 tablet (3.125 mg) by mouth 2 times daily (morning and late afternoon). 04/11/2024 Active Start: 02-25-2023 End: 06-17-2023 take 1 tablet by mouth twice daily at mealtime Carvedilol 6.25 mg tablet Discontinued 6.25 mg PO TWICE A DAY 180 April 08, 2023 2:50pm June 17, 2023 12:14pm must administer with a meal/food Start: 03-05-2022 End: 02-25-2023 take 1 tablet by mouth twice daily Carvedilol (Coreg) 3.125 mg tablet Discontinued 3.125 mg PO TWICE A DAY March 05, 2022 12:00am February 25, 2023 2:58pm Start: 09-04-2021 End: 03-05-2022 take 3.125 mg by mouth twice daily Carvedilol 6.25 mg tablet Discontinued 3.125 mg PO TWICE A DAY September 04, 2021 2:11pm March 05, 2022 2:22pm bp/heart Start: 09-04-2021 End: 03-05-2022 take 3.125 mg by mouth twice daily Carvedilol Discontinued 3.125 MG PO TWICE A DAY September 04, 2021 1:11pm March 05, 2022 1:22pm bp/heart Start: 04-17-2019 End: 09-04-2021 take 1 tablet by mouth twice daily Carvedilol 6.25 mg tablet Discontinued 6.25 mg PO TWICE A DAY 180 February 11, 2021 1:28pm September 04, 2021 2:14pm bp/heart Start: 08-10-2012 take 0.5 tablet by m out twice daily COREG 25 MG TABS 1/2 tablet by mouth twice daily CARVEDILOL [id number] Robbi Abbott MD Start: 05-20-2012 take 1 tablet by mayda twice daily COREG 25 MG TABS One tablet by mouth twice daily CARVEDILOL [id number] Robbi Abbott MD Start: 08-04-2010 End: 04-17-2019 take 1 tablet by mouth twice daily Carvedilol 12.5 MG tablet Discontinued 12.5 mg PO TWICE A DAY March 05, 2016 12:00am December 15, 2017 4:42pm Start: 03-06-2009 End: 05-10-2012 CARVEDILOL 6.25 MG TAB Indic ations: Unspecified disease of white blood cells , Abdominal or pelvic swelling, mass or lump, unspecified site 1 1/2 tab twice daily 0 03/06/2009 05/10/2012 Discontinued (Dosage adjustment) Comment on above: 1 1/2 tab twice kavon y ciprofloxacin 250 mg oral tablet (20 sources) Quinolone Antimicrobial Start: 12-13-19 End: 12-16-19 take 1 tablet by mouth twice daily ciprofloxacin (Cipro) 250 mg tablet Indications: Bladder spasms Take 1 tablet (250 mg) by mouth 2 times a day for 3 days. 6 tablet 12/13/2024 12/16/2024 Active Start: 05-17-2024 End: 05-20-2024 take 1 tablet by mouth twice daily ciprofloxacin (Cipro) 250 mg tablet Indications: Incomplete bladder emptying Take 1 tablet (250 mg) by mouth 2 times a day for 3 days. 6 tablet 05/17/2024 05/20/2024 Active Start: 03-22-2024 End: 05-23-2024 take 1 tablet by mouth twice daily Ciprofloxacin Hcl (Cipro) 500 mg tablet Discontinued 500 mg PO TWICE A DAY March 22, 2024 12:00am May 23, 2024 2:23pm Start: 10-21-2022 End: 02-25-2023 take 1 tablet by mouth twice daily Ciprofloxacin Hcl (Cipro) 250 mg tablet Discontinued 250 mg PO TWICE A DAY October 21, 2022 1:00am February 25, 2023 2:40pm Start: 12-28-2018 End: 12-29-2018 take 1 tablet by mouth twice daily Ciprofloxacin Hcl 500 MG tablet Discontinued 500 mg PO TWICE A DAY December 28, 2018 1:00am December 29, 2018 9:14am 2 ml dupilumab 150 mg/ml auto-injector (1 source) Interleukin-4 Receptor alpha Antagonist Start: 05-23-2024 Dupilumab 300 mg/2 mL pen injector Active 300 mg SC every 2 weeks May 23, 2024 12:00am finasteride 5 mg oral tablet (20 sources) 5-alpha Reductase Inhibitor Start: 03-05-2022 End: 10-20-2023 finasteride (Proscar) 5 mg tablet 08/09/2023 Active gabapentin 100 mg oral capsule (1 source) Anti-epileptic Agent Start: 11-10-2024 take 1 capsule by mouth once daily as needed Gabapentin 100 mg capsule Active 100 mg PO daily as needed November 10, 2024 1:00am HYDROmorphone (3 sources) Opioid Agonist Start: 07-25-2024 0.5 mg, intravenous, Every 5 min PRN, pain severe (7-10), first line, Starting on Wed07/25/24 at 1138, Recovery (only), Max total of 4 mg regardless of dose. Start: 07-25-2024 0.5 mg, intrav enous, Every 5 min PRN, pain moderate (4-6), first line, Starting on Wed07/25/24 at 1138, Recovery (only), Max total of 4 mg regardless of dose. Start: 07-25-2024 0.5 mg, intrav enous, Every 5 min PRN, pain mild (1-3), first line, Starting on Wed07/25/24 at 1138, Recovery (only), Max total of 4 mg regardless of dose. levoFLOXacin 750 mg oral tablet (2 sources) Quinolone Antimicrobial Start: 09-06-2023 Levofloxacin Active 750 MG PO Q48H 3 September 06, 2023 12:00am Took 09/06 dose in hospital. Next dose 09/08 nitrofurantoin, macrocrystals 100 mg oral capsule (1 source) Nitrofuran Antibacterial Start: 07-25-2024 End: 07-30-2024 take 1 capsule by mouth twice daily nitrofurantoin (Macrodantin) 100 mg capsule Indications: Urinary retention Take 1 capsule (100 mg) by mouth 2 times a day for 5 days. 10 capsule 07/25/2024 07/30/2024 Active nitroglycerin 0.4 mg sublingual tablet (20 sources) Nitrate Vasodilator Start: 05-23-2024 nitroglycerin (Nitrostat) 0.4 mg SL tablet DISSOLVE ONE TABLET UNDER THE TONGUE EVERY 5 MINUTES NEEDED FOR CHEST PAIN. 05/23/2024 Active Start: 07-30-2009 End: 02-17-2022 Nitroglycerin Discontinued 0 .4 MG SL Q5M January 06, 2021 4:27pm February 17, 2022 10:44am Start: 03-06-2009 End: 05-23-2024 Nitroglycerin 0.4 mg tablet, sublingual Active 0.4 mg SL Q5M as needed for Chest Pain May 23, 2024 3:00pm Comment on above: Place one(1) tablet on tongue as needed for chest pain. If no pain relief call 911. ondansetron 4 mg disintegrating oral tablet (4 sources) Serotonin-3 Receptor Antagonist Start: take 1 tablet by mouth every eight hours as needed for nausea Ondansetron 4 mg tablet,disintegrati ng Active 4 mg PO EVERY 8 HOURS NEEDED as needed for Nausea December 16, 2024 1:00am Start: 07-25-2024 End: 07-25-2024 4 mg, intravenous, Once as n eeded, nausea/vomiting, first line, Starting on Wed07/25/24 at 1138, For 1 dose, Recovery (only), When administering via IV Push, administer over 3-5 minutes. Start: 03-25-2024 End: 05-23-2024 take 1 tablet by mouth every eight hours as needed for nausea Ondansetron 4 mg tablet,disintegrating Discontinued 4 mg PO EVERY 8 HOURS NEEDED as needed for Nausea March 25, 2024 12:00am May 23, 2024 2:25pm oxybutynin chloride 5 mg oral tablet (6 sources) Cholinergic Muscarinic Antagonist Start: 12-06-2024 End: 06-04-2025 take 1 tablet by mouth three times daily oxybutynin (Ditropan) 5 mg tablet Indications: Urinary retention Take 1 tablet (5 mg) by mouth 3 times a day. 90 tablet 5 12/06/2024 06/04/2025 Active Start: 11-10-2024 take 1 tablet by mayda once daily Oxybutynin Chloride 5 mg tablet extended release 24hr Active 5 mg PO daily November 10, 2024 1:00am oxygen (O2) therapy (1 source) Start: 07-25-2024 inhalation, Continuous PRN - O2/gases, other, Starting on Wed07/25/24 at 1138, Recovery (only), Device: Nasal Cannula, Rate in liters per minute: Other, Custom Value: 1-6 LPM, Keep O2 Sat Above: 92% phenazopyridine hydrochloride 200 mg oral tablet (7 sources) Start: 07-25-2024 take 1 tablet by mouth three times daily as needed for muscle spasms phenazopyridine (Pyridium) 200 mg tablet Indications: Urinary retention Take 1 tablet (200 mg) by mouth 3 times a day as needed for bladder spasms. 30 tablet 07/25/2024 Active polyethylene glycol [id number] [id number] mg powder for oral solution (13 sources) Osmotic Laxative Start: 03-29-2024 polyethylene glycol (Glycolax, Miralax) 17 gram packet take 1 packet (17 GMS) twice a day if needed for constipation for 5 days 03/29/2024 Active predniSONE 5 mg oral tablet (1 source) Start: 11-10-2024 take 1 tablet by mouth once daily Prednisone 5 mg tablet Active 5 mg PO daily November 10, 2024 1:00am promethazine (Phenergan) 12.5 mg in sodium chloride 0.9% 50 mL IV (1 source) Start: 07-25-2024 12.5 mg, intravenous, Administer over 15 Minutes, Once as needed, nausea/vomiting, first line, Nausea/vomiting, second line, Starting on Wed07/25/24 at 1138, For 1 dose, Recovery (only) simvastatin 20 mg oral tablet (20 sources) HMG-CoA Reductase Inhibitor Start: 06-03-2010 End: 08-23-2024 take 1 tablet by mouth once daily at bedtime for hyperlipidemia simvastatin (Zocor) 20 mg tablet Take 1 tablet (20 mg) by mouth once daily at bedtime. for cholesterol 03/04/2024 Active Comment on above: Take one(1) tablet d aily. tamsulosin hydrochloride 0.4 mg oral capsule (20 sources) alpha-Adrenerg ic Mona Start: 04-27-2024 End: 04-27-2025 take 1 capsule by mouth once daily tamsulosin (Flomax) 0.4 mg 24 hr capsule Indications: Benign prostatic hyperplasia with lower urinary tract symptoms, symptom details unspecified Take 1 capsule (0.4 mg) by mouth once daily. 30 capsule 11 04/27/2024 04/27/2025 Active Start: 03-05-2022 End: 10-20-2023 take 1 capsule by mouth once daily Tamsulosin 0.4 mg capsule Discontinued 0.4 mg PO DAILY March 05, 2022 12:00am October 20, 2023 2:08pm triamcinolone acetonide 1 mg/ml topical cream (13 sources) Corticosteroid Start: 11-27-2023 triamcinolone (Kenalog) 0.1 % cream APPLY A THIN LAYER OF CREAM TO THE AFFECTED AREAS OF THE BODY TWICE DAILY FOR 2 WEEKS, TAKE 1 WEEK OFF BEFORE RESUMING NEEDED FOR FLARES 11/27/2023 Active Completed/Discontinued Medications Medication Drug Class(es) Dates Sig (Normalized) Sig (Original) Acetaminophen (1 source) Start: 06-19-2005 take 1 tablet by mouth at bedtime TYLENOL PM 25 MG-500 MG ORAL TAB TAKE ONE TAB AT BEDTIME 0 06/19/2005 Active Comment on above: TAKE ONE TAB AT BEDT [place]ID acetaminophen 500 mg / diphenhydrAMINE hydrochloride 25 mg oral tablet (20 sources) Histamine-1 Receptor Antagonist Start: 10-22-2017 End: 09-06-2023 Diphenhydramine-Ac etaminophen (Tylenol Pm Extra Strength) 25-500 mg tablet Discontinued 2 {tbl} PO AT BEDTIME as needed for Insomnia October 22, 2017 1:00am September 06, 2023 4:07pm Start: 05-24-2017 take 1 tablet by mayda th once daily in the evening TYLENOL PM EXTRA STRENGTH 500-25 MG TABS One tablet by mouth daily DIPHENHYDRAMINE-APAP (SLEEP) [id number] Robbi Abbott MD amoxicillin 875 mg / clavulanate 125 mg oral tablet (13 sources) Penicillin-class Antibacterial Start: 12-27-2022 End: 02-25-2023 Amoxicillin-Pot Clavulanate 875-125 mg tablet Discontinued 1 {tbl} PO TWICE A DAY December 27, 2022 1:00am February 25, 2023 2:39pm Start: 12-27-2022 End: 02-25-2023 take 1 tablet by mouth twice daily Amoxicillin-Pot Clavulanate Discontinued 1 TABLET PO TWICE A DAY December 27, 2022 12:00am February 25, 2023 1:39pm cephalexin 500 mg oral capsule (18 sources) Cephalosporin Antibacterial Start: 01-26-2020 End: 04-17-2020 take 1 capsule by mouth every six hours Cephalexin 500 MG capsule Discontinued 500 mg PO EVERY 6 HOURS January 26, 2020 12:00am April 17, 2020 10:37am clopidogrel 75 mg oral tablet (20 sources) P2Y12 Platelet Inhibitor Start: 03-06-2009 End: 07-12-2024 take 1 tablet by mouth once daily clopidogrel (Plavix) 75 mg tablet TAKE 1 TABLET BY MOUTH ONCE DAILY TO PREVENT CLOTTING. 12/06/2023 07/12/2024 Discontinued (Med List Cleanup) Comment on above: Take one(1) tablet d aily. diazePAM 2 mg oral tablet (1 source) Benzodiazepine Start: 03-25-2024 End: 05-23-2024 take 1 tablet by mouth twice daily as needed for anxiety Diazepam (Valium) 2 mg tablet Discontinued 2 mg PO TWICE A DAY as needed for anxiety March 25, 2024 12:00am May 23, 2024 2:25pm DUPIXANT (4 sources) Start: 10-11-2023 End: 05-23-2024 DUPIXANT Discontinued 300 mg IM .Q2W October 11, 2023 1:00am May 23, 2024 2:27pm Start: 10-11-2023 DUPIXANT Activ e 300 MG IM .Q2W October 11, 2023 12:00am furosemide 20 mg oral tablet (20 sources) Loop Diuretic Start: 08-05-2022 End: 11-23-2023 take 1 tablet by mouth every other day as needed for edema Furosemide 20 mg tablet Discontinued 20 mg PO every other day as needed for edema August 05, 2022 2:38pm November 23, 2023 3:23pm Start: 03-06-2022 End: 08-05-2022 take 2 tablets by mouth once daily Furosemide 20 mg tablet Discontinued 40 mg PO DAILY March 06, 2022 4:16pm August 05, 2022 2:38pm Increased to 40mg x3 day on 03/07/2022; Start: 03-06-2022 End: 08-05-2022 take 40 mg by mouth once daily Furosemide Discontinued 40 MG PO DAILY March 06, 2022 3:16pm August 05, 2022 1:38pm Increased to 40mg x3 day on 03/07/2022; Start: 02-04-2021 End: 03-06-2022 take 1 tablet by mouth once daily Furosemide 20 mg tablet Discontinued 20 mg PO DAILY February 17, 2022 11:43am March 06, 2022 4:17pm Start: 11-04-2020 End: 02-04-2021 Furosemide (Lasix) 40 mg tab let Discontinued 20 mg PO DAILY November 04, 2020 4:32pm February 04, 2021 10:52am Start: 02-08-2019 End: 11-04-2020 take 1 tablet by mouth once daily Furosemide (Lasix) 40 mg tablet Discontinued 40 mg PO DAILY February 23, 2019 4:32pm August 17, 2019 2:47pm Start: 04-14-2018 End: 05-24-2018 take 1 tablet by mouth once daily Furosemide 20 mg tablet Discontinued 20 mg PO daily April 14, 2018 5:48pm May 24, 2018 2:33pm Start: 10-22-2017 End: 04-14-2018 take 1 tablet by mouth once Furosemide 40 mg tablet Di scontinued 40 mg PO ONCE October 22, 2017 4:00pm April 14, 2018 5:48pm Start: 08-04-2010 End: 10-22-2017 take 1 tablet by mouth once daily as needed Furosemide 20 MG tablet Discontinued 20 mg PO DAILY as needed for Swelling March 05, 2016 12:00am October 22, 2017 4:00pm iohexol (OMNIPaque) 350 mg iodine/mL solution 73 mL (1 source) Start: 07-10-2024 End: 07-10-2024 73 mL, intravenous, Once in imaging, Starting on Wed07/10/24 at 1448, For 1 dose 24 hr isosorbide mononitrate 30 mg extended release oral tablet (20 sources) Nitrate Vasodilator Start: 05-24-2018 End: 04-17-2020 take 1 tablet by mouth once daily in the morning, then take 1 tablet by mouth every twenty-four hours Isosorbide Mononitrate 30 mg tablet extended release 24 hr Discontinued 30 mg PO EVERY MORNING March 08, 2019 10:15am April 17, 2020 10:37am On Hold: low BP Start: 05-18-2011 take 1 tablet by mayda th every twenty-four hours ISOSORBIDE MONONITRATE ER 30 mg ORAL 24 hr tablet Start: 06-20-2010 End: 10-09-2016 take 1 tablet by mouth once daily ISOSORBIDE MONONITRA TE ER 30 MG [id number] One tablet by mouth daily (Imdur) STOP ISOSORBIDE MONONITRATE [id number] Abril Dupree PA-C isosorbide dinitrate 30 mg oral tablet (20 sources) Nitrate Vasodilator Start: 10-22-2017 End: 10-22-2017 take 60 mg by mouth once Isosorbide Dinitrate Discontinued 60 MG PO ONCE October 22, 2017 12:00am October 22, 2017 2:59pm Start: 04-12-2017 End: 10-22-2017 Isosorbide Dinitrate 30 mg t ablet Discontinued 60 mg PO ONCE October 22, 2017 1:00am October 22, 2017 3:59pm Start: 04-12-2017 End: 05-24-2018 take 1 tablet by mouth once Isosorbide Dinitrate 30 mg tablet Discontinued 30 mg PO ONCE December 15, 2017 4:41pm May 24, 2018 2:28pm 1.5 ml leuprolide acetate 30 mg/ml prefilled syringe (2 sources) Gonadotropin Releasing Hormone Receptor Agonist Start: 07-12-2024 End: 07-12-2024 leuprolide (6-month) (Lupron Depot) injection 45 mg Start: 07-12-2024 End: 07-12-2024 inject 1 dose by intramuscular injection every two hours 45 mg, intramuscular, Once, On Wed07/12/24 at 1600, For 1 dose, Administer as a single injection into the gluteal area, anterior thigh, or deltoid. Give within 2 hours of preparation. Hazardous Drug - Double Nitrile Glove, Gown. Administer as a single intraMUSCULAR injection into the gluteal area, anterior thigh, or deltoid. Injection site should be alternated. Administer within 2 hours of preparation. lisinopril 10 mg oral tablet (20 sources) Angiotensin Converting Enzyme Inhibitor Start: 08-10-2012 End: 04-14-2013 take 1 tablet by mouth twice daily LISINOPRIL 10 MG TABS One tablet by mouth twice daily LISINOPRIL [id number] Robbi Abbott MD Start: 03-06-2009 End: 07-17-2013 take 1 tablet by mouth once daily LISINOPRIL 10 MG TABS One tablet by mouth daily LISINOPRIL [id number] Robbi Abbott MD Comment on above: Take one(1) tablet aki michelle. losartan potassium 25 mg oral tablet (20 sources) Angiotensin 2 Receptor Mona Start: 8 End: 9 take 1 tablet by mouth once daily Losartan 25 mg tablet Discontinued 25 mg PO daily October 03, 2018 3:27pm November 02, 2018 10:14am Start: 03-05-2016 End: 10-22-2017 take 1 tablet by mouth once daily Losartan 25 MG tablet Discontinued 25 mg PO DAILY March 05, 2016 12:00am October 22, 2017 12:22pm Start: 04-14-2013 End: 12-15-2017 take 1 tablet by mouth once daily Losartan 50 mg tablet Discontinued 50 mg PO daily October 22, 2017 1:00am December 15, 2017 4:43pm nitrofurantoin, macrocrystals 25 mg / nitrofurantoin, monohydrate 75 mg oral capsule (18 sources) Nitrofuran Antibacterial Start: 12-23-2018 End: 12-28-2018 take 1 capsule by mouth twice daily at mealtime Nitrofurantoin Monohyd/M-Cryst (Macrobid) 100 mg capsule Discontinued 100 mg PO TWICE A DAY 10 5 December 23, 2018 1:00am December 27, 2018 1:00am December 28, 2018 1:07am must administer with a meal/food OTC NUTRITIONAL SUPPLEMENT (1 source) Start: 07-22-2011 End: 03-17-2012 OTC NUTRITIONAL SUPPLEMENT digestive enzyne 0 07/22/2011 03/17/2012 Discontinued (Discontinued by Patient) Comment on above: digestive enzyne oxyCODONE hydrochloride 5 mg oral tablet (1 source) Opioid Agonist Start: 03-22-2024 End: 05-23-2024 take 1 tablet by mouth every six hours as needed for pain Oxycodone 5 mg tablet Discontinued 5 mg PO EVERY 6 HOURS as needed for pain 14 7 March 22, 2024 May 23, 2024 2:25pm pantoprazole 40 mg delayed release oral tablet (20 sources) Proton Pump Inhibitor Start: 03-05-2016 End: 05-24-2018 Pantoprazole 40 MG tablet Discontinued 20 mg PO DAILY March 05, 2016 12:00am May 24, 2018 2:27pm Start: 03-05-2016 End: 05-24-2018 take 20 mg by mouth once daily Pantoprazole Discontinu ed 20 MG PO DAILY March 04, 2016 11:00pm May 24, 2018 1:27pm Start: 09-03-2014 End: 05-20-2017 take 1 tablet by mouth once daily PANTOPRAZOLE SODIUM 40 MG TBEC One tablet by mouth daily PANTOPRAZOLE SODIUM [id number] Rain Segovia NP Start: 06-04-2011 End: 10-23-2011 take 3 tablets by mouth once daily pantoprazole (PROTONIX) 40 mg ORAL tablet Take by mouth. TAKE (1) ONCE DAILY 30 tablet 3 06/04/2011 10/23/2011 Discontinued Start: 06-20-2010 End: 09-03-2014 take 1 tablet by mouth once daily PROTONIX 40 MG (PANTOPRAZOLE SODIUM) One tablet by mouth daily PROTONIX 40 MG (PANTOPRAZOLE SODIUM) Robbi Abbott MD Comment on above: Take by mouth. TAKE (1) ONCE DAILY potassium chloride 10 meq extended release oral tablet (20 sources) Start: 01-29-2021 End: 09-04-2021 take 2 tablets by mouth once daily Potassium Chloride 10 mEq tablet extended release Discontinued 20 meq PO DAILY 180 January 29, 2021 11:23am September 04, 2021 2:12pm Start: 01-29-2021 End: 09-04-2021 take 20 mEq by mouth once daily Potassium Chloride Dis continued 20 MEQ PO DAILY 180 January 29, 2021 10:23am September 04, 2021 1:12pm Start: 11-06-2020 End: 01-29-2021 take 1 tablet by mouth once daily Potassium Chloride 20 mEq tablet extended release Discontinued 20 meq PO .COMPLEX November 06, 2020 5:34pm January 29, 2021 11:22am 20 mEq PO take two tabs by mouth on day 1 and then take one tab by mouth daily; Start: 02-08-2019 End: 04-17-2020 Potassium Chloride (Klor-Con M20) 20 mEq tablet,ER particles/crystals Discontinued 20 meq PO DAILY February 08, 2019 12:00am April 17, 2020 10:37am Start: 12-03-2017 End: 05-24-2018 take 1 tablet by mouth once daily Potassium Chloride 10 MEQ tablet Discontinued 10 meq PO DAILY December 03, 2017 6:19pm May 24, 2018 2:33pm Start: 11-15-2014 End: 12-03-2017 take 1 tablet by mouth once daily Potassium Chloride 10 MEQ tablet Discontinued 10 meq PO DAILY April 15, 2016 12:00am December 03, 2017 6:20pm Start: 08-04-2010 End: 05-02-2012 take 2 tablets by mouth once daily POTASSIUM CHLORIDE ER 10 MEQ CR-TABS (SR) Two tablets by mouth daily POTASSIUM CHLORIDE [id number] Leonora Viveros 12 hr ranolazine 500 mg extended release oral tablet (20 sources) Anti-anginal Start: 12-21-2014 take 1 tablet by mouth twice daily RANEXA 500 MG [id number] One tablet by mouth twice daily RANOLAZINE [id number] Kasia Nieto RN Start: 08-04-2010 End: 05-02-2012 take 1 tablet by mouth twice daily RANEXA 500 MG [id number] One tablet by mouth twice daily RANOLAZINE [id number] Kasia Nieto RN sacubitril 24 mg / valsartan 26 mg oral tablet (20 sources) Angiotensin 2 Receptor Mona Start: 11-23-2023 End: 11-10-2024 Sacubitril-Valsartan (Entresto) 24-26 mg tablet Discontinued 1 {tbl} PO TWICE A DAY 180 November 23, 2023 3:40pm November 10, 2024 12:02pm Start: 11-18-2023 End: 07-12-2024 take 1 tablet by mouth every twelve hours Entresto 49-51 mg tablet Take 1 tablet by mouth every 12 hours. 11/18/2023 07/12/2024 Discontinued (Therapy completed) Start: 06-17-2023 End: 11-23-2023 Sacubitril-Valsartan (Entres to) 49-51 mg tablet Discontinued 1 {tbl} PO TWICE A DAY 4 November 18, 2023 12:14pm November 23, 2023 3:22pm Start: 11-02-2018 End: 06-17-2023 Sacubitril-Valsartan (Entres to) 24-26 mg tablet Discontinued 1 {tbl} PO TWICE A DAY 180 January 05, 2023 1:03pm June 17, 2023 12:14pm Problems Active Problems Problem Classification Problem Date Documented Date Episodic/Chronic Abdominal pain (13 sources) Left lower quadrant pain; Translations: [Left lower quadrant pain] 12-27-2022 Episodic Acute and unspecified renal failure (15 sources) Acute renal failure syndrome; Translations: [Acute kidney failure, unspecified] 09-04-2023 Episodic Acute myocardial infarction (20 sources) ST elevation (STEMI) myocardial infarction involving other coronary artery of anterior wall; Translations: [Acute myocardial infarction of other anterior wall, subsequent episode of care] Onset: 1 Resolved: 6 01-13-2011 Chronic Cancer of prostate (16 sources) Malignant neoplasm of prostate; Translations: [Malignant tumor of prostate] Onset: 4 Chronic Conditions associated with dizziness or vertigo (17 sources) Dizziness; Translations: [Dizziness and giddiness] 06-03-2022 Episodic Conduction disorders (20 sources) Implantable cardioverter battery end of life; Translations: [Encounter for adjustment and management of automatic implantable cardiac defibrillator] Chronic Comment on above: ICD Implant 9, ICD Gen Change 04/16/2016 Congestive heart failure; nonhypertensive (20 sources) Congestive heart failure; Translations: [Left heart failure] Onset: 1 10-08-2016 Chronic Coronary atherosclerosis and other heart disease (20 sources) Coronary atherosclerosis; Translations: [Angina pectoris] Onset: 1 10-08-2016 Chronic Comment on above: PTCA/BMS to prox LAD 08/02/2008;12/28/2018: Successful PTCA/LAVINIA of proximal LCX with a 3.0 x 12 Promus Synergy. 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, unspecified] Onset: 9 03-06-2009 Chronic Disorders of lipid metabolism (20 sources) Hyperlipidemia; Translations: [Hyperlipidemia, unspecified] Onset: 1 01-13-2011 Chronic Diverticulosis and diverticulitis (14 sources) Diverticulitis of large intestine; Translations: [Diverticulitis of large intestine without perforation or abscess without bleeding] Onset: 6 06-03-2016 Chronic Esophageal disorders (2 sources) Ulcer of esophagus; Translations: [Ulcer of esophagus without bleeding] Onset: 0 06-12-2010 Chronic Essential hypertension (20 sources) Hypertensive disorder; Translations: [Essential (primary) hypertension] Onset: 1 01-13-2011 Chronic Comment on above: CONTROLLED WITH MED PER PT, CONTROLLED O N MED Fluid and electrolyte disorders (20 sources) Hypokalemia; Translations: [Hypokalemia] Onset: 5 11-15-2014 Episodic Genitourinary symptoms and ill-defined conditions (11 sources) Genuine stress incontinence; Translations: [Stress incontinence (female) (male)] Onset: 4 06-13-2024 Chronic Hyperplasia of prostate (20 sources) Benign prostatic hypertrophy without outflow obstruction; Translations: [Benign prostatic hyperplasia without lower urinary tract symptoms] Onset: 7 11-11-2015 Chronic Inflammatory conditions of male genital organs (18 sources) Orchitis; Translations: [Orchitis] 01-31-2019 Episodic Intestinal obstruction without hernia (18 sources) Small bowel obstruction; Translations: [Unspecified intestinal obstruction, unspecified as to partial versus complete obstruction] 01-31-2019 Episodic Nonspecific chest pain (20 sources) Precordial pain; Translations: [Precordial pain] Onset: 1 01-13-2011 Episodic Open wounds of extremities (18 sources) Absent fingertips; 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, initial encounter] 01-27-2020 Chronic Other aftercare (18 sources) Drug therapy finding; Translations: [Other half-way (current) drug therapy] 01-31-2019 Episodic Other aftercare (9 sources) Patient encounter status; Translations: [Encounter for therapeutic drug level monitoring] 07-09-2023 Episodic Other aftercare (1 source) Long-term current use of diuretic; Translations: [Encounter for therapeutic drug level monitoring] 07-09-2023 Episodic Other circulatory disease (12 sources) History of cardiomyopathy; Translations: [Personal history of other diseases of the circulatory system] 01-14-2023 Episodic Other connective tissue disease (1 source) Polymyalgia rheumatica; Translations: [Polymyalgia rheumatica] Onset: 5 Chronic Other diseases of bladder and urethra (8 sources) Spasm of bladder; Translations: [Other specified disorders of bladder] Onset: 5 12-06-2024 Chronic Other diseases of bladder and urethra (2 sources) Other specified disorders of bladder; Translations: [Other specified disorders of bladder] Onset: Chronic Other gastrointestinal disorders (1 source) Abdominal mass; Translations: [Other specified diseases of intestine] 03-07-2013 Episodic Other gastrointestinal disorders (12 sources) Antibiotic-associated diarrhea; Translations: [Toxic gastroenteritis and colitis] 01-14-2023 Episodic Other gastrointestinal disorders (1 source) Constipation; Translations: [Constipation, unspecified] 04-07-2024 Episodic Other hematologic conditions (10 sources) Raised cardiac enzyme or marker; Translations: [Other specified abnormalities of plasma proteins] 12-29-2018 Episodic Other inflammatory condition of skin (1 source) Pruritus of skin; Translations: [Pruritus, unspecified] 08-23-2014 Episodic Other lower respiratory disease (20 sources) Dyspnea; Translations: [Shortness of breath] Onset: 2 08-10-2012 Episodic Other lower respiratory disease (2 sources) Dyspnea, unspecified; Translations: [Other respiratory abnormalities] Episodic Other male genital disorders (1 source) H/O: male genital disorder; Translations: [Personal history of other diseases of male genital organs] 04-07-2024 Episodic Other nervous system disorders (8 sources) Metabolic encephalopathy; Translations: [Metabolic encephalopathy] 09-04-2023 Chronic Other nervous system disorders (7 sources) Metabolic encephalopathy; Translations: [Metabolic encephalopathy] 09-04-2023 Chronic Otitis media and related conditions (18 sources) Otitis media; Translations: [Otitis media, unspecified, unspecified ear] 01-31-2019 Episodic Peripheral and visceral atherosclerosis (18 sources) Peripheral vascular disease, unspecified; Translations: [Peripheral arterial disease] 11-11-2020 Chronic Comment on above: small vessel diease Residual codes; unclassified (20 sources) FH: Hypertension; Translations: [Family history of ischemic heart disease and other diseases of the circulatory system] 09-03-2014 Episodic Residual codes; unclassified (20 sources) Family history of stroke; Translations: [Family history of stroke] 09-03-2014 Episodic Residual codes; unclassified (18 sources) Family history of sudden cardiac ; Translations: [Family history of sudden cardiac ] 01-31-2019 Episodic Septicemia (except in labor) (18 sources) Sepsis; Translations: [Sepsis, unspecified organism] 01-31-2019 Episodic Superficial injury; contusion (18 sources) Abrasion of forehead; Translations: [Abrasion of other part of head, initial encounter] 10-02-2019 Episodic Unclassified (2 sources) Implantation of automatic cardiac defibrillator ; Translations: [Presence of automatic (implantable) cardiac defibrillator] Onset: 1 01-13-2011 Unclassified (2 sources) Long-term drug therapy; Translations: [Other half-way (current) drug therapy] Onset: 1 01-13-2011 Urinary tract infections (15 sources) Urinary tract infectious disease; Translations: [Urinary tract infection, site not specified] 09-04-2023 Episodic Past or Other Problems Problem Classification Problem Date Documented Da te Episodic/Chronic Abdominal hernia (1 source) Diaphragmatic hernia; Translations: [Diaphragmatic hernia without obstruction or gangrene] Onset: 04-04-2012 04-04-2012 Episodic Calculus of urinary tract (11 sources) History of calculus of kidney; Translations: [Personal history of urinary calculi] Onset: 06-13-2024 06-13-2024 Episodic Coronary atherosclerosis and other heart disease (20 sources) History of myocardial infarction; Translations: [Stented coronary artery] Onset: 01-13-2011 01-13-2011 Episodic Comment on above: PTCA/BMS to prox LAD 08/02/2008;12/28/2018: Successful PTCA/LAVINIA of proximal LCX with a 3.0 x 12 Promus Synergy. FFR of RCA negative per DJN @ [facility] Esophageal disorders (1 source) Esophagitis; Translations: [Esophagitis, unspecified] Onset: 06-12-2010 06-12-2010 Episodic Genitourinary symptoms and ill-defined conditions (20 sources) Incomplete emptying of bladder; Translations: [Retention of urine, unspecified] Onset: 06-17-2007 06-17-2007 Episodic Malaise and fatigue (20 sources) Fatigue; Translations: [Other fatigue] Onset: 08-10-2012 11-14-2014 Episodic Nausea and vomiting (3 sources) Nausea and vomiting; Translations: [Nausea with vomiting, unspecified] Onset: 12-29-2024 04-02-2024 Episodic Other aftercare (15 sources) Long-term drug therapy; Translations: [Other half-way (current) drug therapy] Onset: 01-13-2011 01-13-2011 Episodic Other and unspecified benign neoplasm (1 source) History of polyp of colon; Translations: [Personal history of colonic polyps] Onset: 05-10-2012 05-10-2012 Episodic Other gastrointestinal disorders (1 source) Finding of abdomen; Translations: [Intra-abdominal and pelvic swelling, mass and lump, unspecified site] Onset: 06-20-2005 06-20-2005 Episodic Other screening for suspected conditions (not mental disorders or infectious disease) (20 sources) Abnormal result of cardiovascular function study, unspecified; Translations: [Raised prostate specific antigen] Onset: 05-21-2008 01-13-2011 Episodic Residual codes; unclassified (20 sources) Body mass index (BMI) 23.0-23.9, adult; Translations: [FH: Hypertension] Onset: 04-12-2017 04-12-2017 Episodic Residual codes; unclassified (15 sources) Family history of sudden ; Translations: [Family history of other specified conditions] 09-09-2015 Episodic Residual codes; unclassified (14 sources) Rectum finding; Translations: [Other general symptoms and signs] Onset: 06-13-2024 04-26-2024 Episodic Residual codes; unclassified (2 sources) Other general symptoms and signs; Translations: [Other general symptoms and signs] Onset: 06-13-2024 Episodic Unclassified (13 sources) Onset: 04-26-2024 04-26-2024 Results Test Name Value Interpretation Reference Range Facility PSA,Total- Diagnosticon 04-02 PSA, DIAGNOSTIC 0.38 ng/mL Normal 0.00-4.00 [facility] Comment on above: Result Comment: This test was performed using the [employer] tPSA method. Measured values of a patient??sample can vary depending on the testing procedure used. PSA values determined on patient samples by different testing procedures cannot be used interchangeably. If there is a change in PSA assays while monitoring therapy, sequential testing should be performed to confirm baseline values. Performed By: #### L [id number] #### [facility] [address] [place], [address] Cardiology Visit Reporton Cardiology Visit Report [facility] [address] [place] [address] OFFICE VISIT Date of Service: 03/12/25 MR#: [id number] Acct: [id number] Name: RAJAT GUZMÁN Rep #: [id number] : 1935 Provider: MORTEZA ortiz Age/Sex: 89/M Location: [facility] Status: Signed HPI HPI History of Present Illness Details: This is a pleasant 89-year-old male who presents today for a cardiovascular follow-up visit. He has a history of coronary artery disease, ischemic cardiomyopathy status post ICD placement, hypertension and dyslipidemia. From a cardiac standpoint, the patient is doing well. He denies any palpitations, chest pain, pressure or heaviness. He denies SOB, Orthopnea, and PND. He does not have bleeding issues; no blood in urine, stool, or nosebleeds. He denies any decrease in energy level, myalgias, or claudication. He does not have edema, or sudden weight gain. He denies lightheadedness, dizziness, syncopal or near syncopal episodes, and headaches. 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 Is patient in pain?: No Allergies morphine Allergy (Intermediate, Verified 03/12/25 14:34) Rash zolpidem tartrate (From Ambien) Adverse Reaction (Intermediate, Verified 03/12/25 14:34) CONFUSION Medications ???Medication ???Instructions ???Recorded ???Confirmed ???Type aspirin 81 mg tablet,delayed 81 mg PO DAILY 05/23/24 03/12/25 H istory release (Adult Low Dose Aspirin) dupilumab 300 mg/2 mL subcutaneous 300 mg subcut Q2W 05/23/2403/12 History pen injector nitroglycerin 0.4 mg sublingual 0.4 mg sublingual Q5M PRN Chest 03/12/25 Rx tablet Pain #25 tabs tamsulosin 0.4 mg capsule 0.4 mg PO QDAY 05/23/24 03/12/25 H istory simvastatin 20 mg tablet 20 mg PO QHS for cholesterol #90 1 03/12/25 Rx TABLETS carvedilol 6.25 mg tablet 6.25 mg PO BID #60 tabs 11/10/24 0 03/12/25 Rx gabapentin 100 mg capsule 100 mg PO QDAY PRN 11/10/24 History oxybutynin chloride 5 mg 5 mg PO QDAY 11/10/24 03/12/25 His tory tablet,extended release 24 hr prednisone 5 mg tablet 5 mg PO QDAY 11/10/24 03/12/25 His tory ondansetron 4 mg disintegrating 4 mg PO Q8H PRN PRN Nausea #10 tab s 12/16/24 03/12/25 Rx tablet sacubitril 24 mg-valsartan 26 mg 1 tab PO BID #60 tabs 03/12/2510/25 Rx tablet (Entresto) Ejection fraction %: 25 Have you fallen in the past year?: Yes PFSH Medical History (Reviewed 03/12/25 @ 16:11 by Cynthia Bowen [employer]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 IN 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 NANNY, LIVE IN HOUSEKEEPER NANNY-C) Non-smoker History of heart attack Presence of stent in coronary artery ( 12/28/18) Cancer High cholesterol History of echocardiogram History of stress test Cardiology follow-up encounter History of CHF (congestive heart failure) Pure hypercholesterolemia 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 General weakness Otitis media Elevated troponin Orchitis of right testicle Sepsis Implantable cardioverter-defibrillator (ICD) at end of battery life Essential hypertension Family history of CVA Family history of hypertension FH: sudden cardiac (SCD) History of placement of internal cardiac defibrillator HTN (hypertension) Old myocardial infarction Angina pectoris Cardiomyopathy, ischemic Chronic systolic congestive heart failure HLD (hyperlipidemia) Abnormal result of cardiovascular function study, unspecified High risk medication use Iron deficiency anemia Chest pain, precordial Atherosclerotic heart disease of [place] coronary artery without angina pectoris Dyspnea Fatigue Hypokalemia Benign prostatic hypertrophy SBO (small bowel obstruction) Surgical History (Reviewed 03/12/25 @ 16:11 by Cynthia Bowen LIVE IN HOUSEKEEPER NANNY, LIVE IN HOUSEKEEPER NANNY-C) H/O dilation of urethra Hx of transurethral resection of prostate 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) History of cardiac catheterization Hx of colonoscopy Hx of surgical procedure History of hernia repair History of prostate surgery History of left heart catheterization Family History Mother CAD (coronary artery disease) CVA (cerebral vascular accident) Myocardial infarction, Onset Age: 67 Hypertension Brother CAD (coronary artery disease) Hypertension Cancer Lung CA Myocardial infarction, Onset Age: 73 Father Myocardial infarction, Onset Age: 77 Daughter Cancer Son Myocardial infarction, Onset Age: 46 Other Cardiomyopathy, ischemic Chronic systolic congestive heart deena (more content not included)... Normal [facility] CRPon 02-05-2025 C-REACTIVE PROT 3.80 mg/L High 0.0-3.0 [facility] Comment on above: Performed By: #### L [id number] #### [facility] [address] [place], [place], [id number] (392) CRP [Mass/Vol]Ordered By: Nestor Mckeon on 02-05-2025 C-Reactive Protein Extended Range 3.80 mg/L High 0.0-3.0 [facility] Erythrocyte Sed Rateon 02-05 SED RATE 13 mm/hr Normal 0-20 [facility] Comment on above: Performed By: #### L [id number] #### [facility] [address] [place], [place], [id number] Erythrocyte sedimentation ra teOrdered By: John Mckeon on 02-05-2025 ESR (Bld) [Velocity] 13 mm/h 0-20 [facility] Absolute neutrophil countOrd ered By: Timoteo Mckenna on 12-16-2024 Neutrophils (Bld) [#/Vol] 6.7 10*3/uL 2.0-7.7 [facility] Basic Metabolic Profile (BMP )on 12-16-2024 BUN/CRE 19.0 RATIO Normal - [facility] Comment on above: Performed By: #### L 100.0100, L500.2500 #### [facility] [address] [place], [address] CA,Total 9.9 mg/dL Normal 8.5-10.1 [facility] Comment on above: Performed By: #### L 100.0100, L500.2500 #### [facility] [address] [place], [address] Chloride [Moles/Vol] 100 mmol/L Normal 98-107 [facility] Comment on above: Performed By: #### L 100.0100, L500.2500 #### [facility] [address] [place], [address] CO2 [Moles/Vol] 27.0 mmol/L Normal 21.0-32.0 [facility] Comment on above: Performed By: #### L 100.0100, L500.2500 #### [facility] [address] [place], [address] Creatinine [Mass/Vol] 0.84 mg/dL Normal 0.70-1.30 [facility] Comment on above: Result Comment: The validity of the calculated GFR GFRAA in patients over 70 years has not been determined. Clinical correlation is essential. Performed By: #### L 100.0100, L500.2500 #### [facility] [address] [place], [address] ECRCL 44.07 ml/min Normal [facility] Comment on above: Performed By: #### L 100.0100, L500.2500 #### [facility] [address] [place], [address] EST GFR - AA 111 mL/min Normal >60 [facility] Comment on above: Result Comment: Afri can [place] GFR Calc Performed By: #### L 100.0100, [id number] #### [facility] [address] [place], [address] GAP 8 Normal 5-15 [facility] Comment on above: Performed By: #### L 100.0100, [id number] #### [facility] [address] [place], [address] GFR/1.73 sq M.predicted among non-blacks MDRD (S/P/Bld) [Vol rate/Area] 92 mL/min/{1.73_m2} Normal >60 [facility] Comment on above: Result Comment: Non- GFR Calc Performed By: #### L 100.0100, [id number] #### [facility] [address] [place], [address] Glucose [Mass/Vol] 155 mg/dL High 74-106 [facility] Comment on above: Result Comment: Fast ing Glucose result greater than or equal to 126 mg/dL suggests DIABETES MELLITUS per A.D.A. criteria. Performed By: #### L 100.0100, [id number] #### [facility] [address] [place], [address] Potassium [Moles/Vol] 3.8 mmol/L Normal 3.5-5.1 [facility] [facility] Comment on above: Performed By: #### L 100.0100, L500.2500 #### [facility] [address] [place], [address] Sodium [Moles/Vol] 135 mmol/L Low 136-145 [facility] Comment on above: Performed By: #### L 100.0100, L500.2500 #### [facility] [address] [place], [address] Urea nitrogen [Mass/Vol] 16 mg/dL Normal 7-18 [facility] Comment on above: Performed By: #### L 100.0100, L500.2500 #### [facility] [address] [place], [address] Basophil percentageOrdered B y: Remus Ungur on 12-16-2024 Basophils/100 WBC (Bld) 0.1 % 0-1 [facility] Bilirubin Test strip Ql (U)O rdered By: Remus Ungur on 12-16-2024 Bilirubin Ql (U) Negative Negative [facility] Blood urea nitrogen (BUN)/cr eatinine ratioOrdered By: Timoteo Mckenna on 12-16-2024 Urea nitrogen/Creatinine [Mass ratio] 19.0 mg/mg 10- [facility] CBC W/Diff, Automatedon 12-02 Absolute Lymph 1.31 X10 3/uL Normal 0.83-4.51 [facility] Comment on above: Performed By: #### L 100.0100, L500.2500 #### [facility] [address] [place], [address] Absolute Neut 6.7 X10 3/uL Normal 2.0-7.7 [facility] Comment on above: Performed By: #### L 100.0100, L500.2500 #### [facility] [address] [place], [address] Basophils/100 WBC (Bld) 0.1 % Normal 0-1 [facility] Comment on above: Performed By: #### L 100.0100, L500.2500 #### [facility] [address] [place], [address] Eosinophils/100 WBC (Bld) 0.3 % Normal 0-5 [facility] Comment on above: Performed By: #### L 100.0100, L500.2500 #### [facility] [address] [place], [address] Erythrocyte distribution width (RBC) [Ratio] 13.7 % Normal 11.6-14.6 [facility] Comment on above: Performed By: #### L 100.0100, L500.2500 #### [facility] [address] [place], [address] Hematocrit (Bld) [Volume fraction] 42.5 % Normal 40-54 [facility] Comment on above: Performed By: #### L 100.0100, L500.2500 #### [facility] [address] [place], [address] Hemoglobin (Bld) [Mass/Vol] 13.8 g/dL Normal 13.0-16.5 [facility] Comment on above: Performed By: #### L 100.0100, L500.2500 #### [facility] [address] [place], [address] IG% 0.200 Normal 0.0-0.9 [facility] Comment on above: Result Comment: IG% - Immature Granulocytes (promyelocytes, myelocytes and metamyelocytes) > 1% indicates that a LEFT SHIFT is Present. Performed By: #### L 100.0100, L500.2500 #### [facility] [address] [place], [address] Lymphocytes/100 WBC (Bld) 15.2 % Low 19-41 [facility] Comment on above: Performed By: #### L 100.0100, L500.2500 #### [facility] [address] [place], [address] MCH (RBC) [Entitic mass] 29.2 pg Normal 27.0-32.0 [facility] Comment on above: Performed By: #### L 100.0100, L500.2500 #### [facility] [address] [place], [address] MCHC (RBC) [Mass/Vol] 32.5 g/dL Normal 32-36 [facility] Comment on above: Performed By: #### L 100.0100, L500.2500 #### [facility] [address] [place], [address] MCV (RBC) [Entitic vol] 89.9 fL Normal 80-94 [facility] Comment on above: Performed By: #### L 100.0100, L500.2500 #### [facility] [address] [place], [address] Monocytes/100 WBC (Bld) 6.1 % Normal 0-10 [facility] Comment on above: Performed By: #### L 100.0100, L500.2500 #### [facility] [address] [place], [address] Neutrophils/100 WBC (Bld) 78.1 % High 47-70 [facility] Comment on above: Performed By: #### L 100.0100, L500.2500 #### [facility] [address] [place], [address] Nucleated RBC (Bld) [#/Vol] 0 10*3/uL Normal 0-5 [facility] Comment on above: Performed By: #### L 100.0100, L500.2500 #### [facility] [address] [place], [address] Platelet mean volume (Bld) [Entitic vol] 10.6 fL Normal 6.2-12.0 [facility] Comment on above: Performed By: #### L 100.0100, L500.2500 #### [facility] [address] [place], [address] Platelets (Bld) [#/Vol] 248 10*3/uL Normal 150-450 [facility] Comment on above: Performed By: #### L 100.0100, L500.2500 #### [facility] [address] [place], [address] RBC (Bld) [#/Vol] 4.73 10*6/uL Normal 4.6-6.2 [facility] Comment on above: Performed By: #### L 100.0100, L500.2500 #### [facility] [address] [place], [address] RDW SD 45.1 fl High 35.1-43.9 [facility] Comment on above: Performed By: #### L 100.0100, L500.2500 #### [facility] [address] [place], [address] WBC (Bld) [#/Vol] 8.6 10*3/uL Normal 4.4-11.0 [facility] Comment on above: Performed By: #### L 100.0100, L500.2500 #### [facility] [address] [place], [address] Carbon dioxide measurementOr dered By: Timoteo Mckenna on 12-16-2024 CO2 [Moles/Vol] 27.0 mmol/L 21.0-32.0 [facility] Chloride measurementOrdered By: Timoteo Mckenna on 12-16-2024 Chloride [Moles/Vol] 100 mmol/L 98-107 [facility] Emergency Department Summary on 12-16-2024 Emergency Department Summary [facility] Medical Records Department [address] [place] [address] Emergency Department Summary 12/16/24 MR#: [id number] Acct: [id number] Name: RAJAT GUZMÁN Rep #: [id number] : 1935 89 From: Timoteo Mckenna DO PCP: Dr. John Mckeon, Status:DEP ER Location: ED HPI History of Present Illness Chief Complaint: Cold Sx Detail of Chief Complaint: Vomiting Informant: patient and family Narrative Narrative: Patient presents the emergency department with complaint of vomiting that started 2 days ago. Presents with his daughter wanting to make sure he is okay. Patient states that he started having dry heaves all of a sudden 2 days ago and then vomited all day yesterday. He has had no diarrhea. Denies chest pain. Denies cough. He had subjective fever at home. He denies urinary symptoms. 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 General weakness Otitis media Elevated troponin Orchitis of right testicle Sepsis Implantable cardioverter-defibrillator (ICD) at end of battery life Essential hypertension Family history of CVA Family history of hypertension FH: sudden cardiac (SCD) History of placement of internal cardiac defibrillator HTN (hypertension) Old myocardial infarction Angina pectoris Cardiomyopathy, ischemic Chronic systolic congestive heart failure HLD (hyperlipidemia) Abnormal result of cardiovascular function study, unspecified High risk medication use Iron deficiency anemia Chest pain, precordial Atherosclerotic heart disease of [place] coronary artery without angina pectoris Dyspnea Fatigue Hypokalemia Benign prostatic hypertrophy SBO (small bowel obstruction) Home Medications ???Medication ???Instructions ???Recorded ???Last Taken ???Type aspirin 81 mg tablet,delayed 81 mg PO DAILY 05/23/24 Unknown Hi story release (Adult Low Dose Aspirin) dupilumab 300 mg/2 mL subcutaneous 300 mg subcut Q2W 05/23/24 Unkno wn History pen injector nitroglycerin 0.4 mg sublingual 0.4 mg sublingual Q5M PRN Chest Unknown Rx tablet Pain #25 tabs tamsulosin 0.4 mg capsule 0.4 mg PO QDAY 05/23/24 Unknown Hi story simvastatin 20 mg tablet 20 mg PO QHS for cholesterol #90 1 Unknown Rx TABLETS carvedilol 6.25 mg tablet 6.25 mg PO BID #60 tabs 11/10/24 U nknown Rx gabapentin 100 mg capsule 100 mg PO QDAY PRN 11/10/24 Unknow n History oxybutynin chloride 5 mg 5 mg PO QDAY 11/10/24 Unknown Hist ory tablet,extended release 24 hr prednisone 5 mg tablet 5 mg PO QDAY 11/10/24 Unknown Hist ory ondansetron 4 mg disintegrating 4 mg PO Q8H PRN PRN Nausea #10 tab s 12/16/24 Unknown Rx tablet Allergy/AdvReac Type Severity Reaction Status Date / Time morphine Allergy Intermediate Rash Verified 12/16/24 15:01 zolpidem tartrate (From AdvReac Intermediate CONFUSION Verified 12/16/24 15:01 Ambien) Family History Mother CAD (coronary artery disease) CVA (cerebral vascular accident) Myocardial infarction, Onset Age: 67 Hypertension Brother CAD (coronary artery disease) Hypertension Cancer Lung CA Myocardial infarction, Onset Age: 73 Father Myocardial infarction, Onset Age: 77 Daughter Cancer Son Myocardial infarction, Onset Age: 46 Other Cardiomyopathy, ischemic Chronic systolic congestive heart failure Fatigue General weakness Iron deficiency anemia Surgical History H/O dilation of urethra Hx of transurethral resection of prostate 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) History of cardiac catheterization Hx of colonoscopy Hx of surgical procedure History of hernia repair History of prostate surgery History of left heart catheterization Social History household members: spouse Smoking Status: Never smoker alcohol intake: never substance use type: does not use caffeine: Yes Type: carbonated beverages and coffee Number of servings: 1 what type of physical activity do you participate in: none seatbelt use: always do you feel safe at home: Yes ROS ROS ED Review of Systems ROS Unobtainable: other Constitutional Constitutional ED: Reports lethargy; Denies chills, fever(s), sweats or weight loss Eyes Eyes: Denies blurry vision, change in vision or diplopia ENT ENT ED: Denies rh (more content not included)... Normal [facility] Eosinophil percentageOrdered By: Timoteo Mckenna on 12-16-2024 Eosinophils/100 WBC (Bld) 0.3 % 0-5 [facility] Epithelial cells.squamous LM Ql (Urine sed)Ordered By: Timoteo Mckenna on 12-16-2024 Epithelial cells.squamous LM.HPF (Urine sed) [#/Area] 0 /[HPF] 0-5 [facility] Erythrocyte distribution wid th (RBC) [Ratio]Ordered By: Timoteo Mckenna on 12-16-2024 Erythrocyte distribution width (RBC) [Entitic vol] 45.1 fL High 35.1-43.9 [facility] Erythrocyte distribution wid th ratioOrdered By: Timoteo Mckenna on 12-16-2024 Erythrocyte distribution width (RBC) [Ratio] 13.7 % 11.6-14.6 [facility] Estimated glomerular filtrat ion rate (GFR) AmericanOrdered By: Timoteo Mckenna on 02-15-2025 Estimated GFR (MDRD) Amer 111 mL/min >60 [facility] Comment on above: GFR Calc Estimation of creatinine laurel aranceOrdered By: Timoteo Mckenna on 12-16-2024 Estimated Creatinine Clearance Calc 44.07 ml/min [facility] Glomerular filtration rate ( GFR) estimationOrdered By: Timoteo Mckenna on 12-16-2024 Estimated GFR (MDRD) Non-Af Amer 92 mL/min >60 [facility] Comment on above: Non- GFR Calc Glucose Ql (U)Ordered By: Melissa Mckenna on 12-16-2024 Urine Glucose (UA) Normal mg/dl Normal [facility] Glucose measurementOrdered B y: Timoteo Mckenna on 12-16-2024 Glucose [Mass/Vol] 155 mg/dL High 74-106 [facility] Comment on above: Fasting Glucose resu lt greater than or equal to 126 mg/dL suggests DIABETES MELLITUS per A.D.A. criteria. Hematocrit Auto (Bld) [Volum e fraction]Ordered By: Timoteo Mckenna on 12-16-2024 Hematocrit (Bld) [Volume fraction] 42.5 % 40-54 [facility] Hemoglobin measurementOrdere d By: Timoteo Mckenna on 12-16-2024 Hemoglobin (Bld) [Mass/Vol] 13.8 g/dL 13.0-16.5 [facility] Immature granulocytes/100 WB C Auto (Bld)Ordered By: Timoteo Mckenna on 12-16-2024 Immature granulocytes/100 WBC (Bld) 0.200 % 0.0-0.9 [facility] Comment on above: IG% - Immature Granu locytes (promyelocytes, myelocytes and metamyelocytes) > 1% indicates that a LEFT SHIFT is Present. Influenza virus A and B and SARS-CoV-2 (COVID-19) and Respiratory syncytial virus RNAOrdered By: Timoteo Mckenna on 12-16-2024 SARS-CoV-2 (COVID-19) RNA MOHIT+probe Ql (Unsp spec) [facility] Ketones Test strip Ql (U)Ord ered By: Timoteo Mckenna on 12-16-2024 Ketones Ql (U) Negative Negative [facility] Lymphocytes Auto (Unsp spec) [#/Vol]Ordered By: Timoteo Mckenna on 12-16-2024 Lymphocytes (Bld) [#/Vol] 1.31 10*3/uL 0.83-4.51 [facility] Lymphocytes/100 WBC Auto (Un sp spec)Ordered By: Timoteo Mckenna on 12-16-2024 Lymphocytes/100 WBC (Bld) 15.2 % Low 19-41 [facility] M100.678on 12-16-2024 M100.678 SARS-CoV-2 (COVID 19 ) Negative INFLUENZA A Negative INFLUENZA B Negative RSV PCR Negative Normal [facility] Comment on above: Performed By: #### L 501.9940 #### [facility] [address] [place], [address] MCV (mean corpuscular volume ) determinationOrdered By: Timoteo Mckenna on 12-16-2024 MCV (RBC) [Entitic vol] 89.9 fL 80-94 [facility] Mean corpuscular hemoglobin (MCH) determinationOrdered By: Timoteo Mckenna on 12-16-2024 MCH (RBC) [Entitic mass] 29.2 pg 27.0-32.0 [facility] Mean corpuscular hemoglobin concentration (MCHC) determinationOrdered By: Timoteo Mckenna on 12-16-2024 MCHC (RBC) [Mass/Vol] 32.5 g/dL 32-36 [facility] Mean platelet volume determi nationOrdered By: Timoteo Mckenna on 12-16-2024 Platelet mean volume (Bld) [Entitic vol] 10.6 fL 6.2-12.0 [facility] Microscopic analysis of urin e for red blood cells (RBC)Ordered By: Timoteo Mckenna on 12-16-2024 Urine RBC 0 SEEN /hpf 0-5 [facility] Monocyte percentageOrdered B y: Timoteo Mckenna on 12-16-2024 Monocytes/100 WBC (Bld) 6.1 % 0-10 [facility] Mucus LM Ql (Urine sed)Order ed By: Timoteo Mckenna on 12-16-2024 Mucus Ql (Urine sed) 0 SEEN /hpf [facility] Neutrophil percentageOrdered By: Timoteo Mckenna on 12-16-2024 Neutrophils/100 WBC (Bld) 78.1 % High 47-70 [facility] Nitrite Test strip Ql (U)Ord ered By: Timoteo Mckenna on 12-16-2024 Nitrite Ql (U) Negative Negative [facility] Nucleated red blood cell per centageOrdered By: Timoteo Ungmaryann on 12-16-2024 Nucleated RBC/100 WBC (Bld) [Ratio] 0 % 0-5 [facility] Platelet countOrdered By: Melissa Mckenna on 12-16-2024 Platelets (Bld) [#/Vol] 248 10*3/uL 150-450 [facility] Potassium measurementOrdered By: Timoteo Mckenna on 12-16-2024 Potassium [Moles/Vol] 3.8 mmol/L 3.5-5.1 [facility] Protein Test strip Ql (U)Ord ered By: Timoteo Mckenna on 12-16-2024 Protein Ql (U) Negative Negative [facility] RBC Auto (Bld) [#/Vol]Ordere d By: Timoteo Mckenna on 12-16-2024 RBC (Bld) [#/Vol] 4.73 10*6/uL 4.6-6.2 [facility] Serum anion gap measurementO rdered By: Timoteo Mckenna on 12-16-2024 Anion gap [Moles/Vol] 8 mmol/L -15 [facility] Serum or plasma calcium alfonso urement (mass/volume)Ordered By: Timoteo Mckenna on 12-16-2024 Calcium [Mass/Vol] 9.9 mg/dL 8.5-10.1 [facility] Serum or plasma creatinine m easurement (mass/volume)Ordered By: Timoteo Mckenna on 12-16-2024 Creatinine [Mass/Vol] 0.84 mg/dL 0.70-1.30 [facility] Comment on above: The validity of the calculated GFR & GFRAA in patients over 70 years has not been determined. Clinical correlation is essential. Serum or plasma urea nitroge n measurement (mass/volume)Ordered By: Timoteo Mckenna on 12-16-2024 Urea nitrogen [Mass/Vol] 16 mg/dL 7-18 [facility] Sodium levelOrdered By: Roxana Mckenna on 12-16-2024 Sodium [Moles/Vol] 135 mmol/L Low 136-145 [facility] Urinalysis, Completeon 12-16 RBC 0 SEEN Normal 0-5 [facility] Comment on above: Order Comment: CLEAN CATCH Performed By: #### L [id number] #### [facility] [address] [place], [address] Urine blood detectionOrdered By: Remus Clarisa on 12-16-2024 Urine Occult Blood Negative Negative [facility] Urine clarityOrdered By: Rem us Ungmaryann on 12-16-2024 Clarity (U) Clear Clear [facility] Urine color determinationOrd ered By: Remus Clarisa on 12-16-2024 Color (U) Straw Yellow [facility] Urine leukocyte esterase det ection by dipstickOrdered By: Remus Mckenna on 12-16-2024 Leukocyte esterase Test strip Ql (U) 25 /ul High Negative [facility] Urine pHOrdered By: Timoteo Un gur on 12-16-2024 pH (U) 6.5 [pH] 5.0 - 8.0 [facility] Urine sediment bacteria coun t by microscopy (number/high power field)Ordered By: Remus Mckenna on 12-16-2024 Bacteria LM.HPF (Urine sed) [#/Area] 0 /[HPF] None Seen [facility] Urine specific gravity measu rementOrdered By: Remus Clarisa on 12-16-2024 Specific gravity (U) [Rel density] 1.010 1.002-1.03 0 [facility] Urobilinogen Ql (U)Ordered B y: Remus Ungmaryann on 12-16-2024 Urine Urobilinogen Normal mg/dl Normal [facility] White blood cell (WBC) count Ordered By: Remus Ungmaryann on 12-16-2024 WBC (Bld) [#/Vol] 8.6 10*3/uL 4.4-11.0 [facility] White blood cell countOrdere d By: Remus Ungur on 12-16-2024 Urine WBC 0 SEEN /hpf 0-5 [facility] C-reactive protein measureme nt by high sensitivity methodOrdered By: John Mckeon on 12-08-2024 C-Reactive Protein Extended Range < 2.90 mg/L 0.0-3.0 [facility] Comment on above: C-Reactive Protein ( CRP) provides useful information for thediagnosis, therapy and monitoring of inflammatory processesand associated diseases. For the evaluation of Relative Riskfor Cardiovascular Disease, a High Sensitivity CRP (HSCRP)should be ordered. CRPon 12-08-2024 C-REACTIVE PROT < 2.90 Normal 0.0-3.0 [facility] Comment on above: Result Comment: C-Re active Protein (CRP) provides useful information for the diagnosis, therapy and monitoring of inflammatory processes and associated diseases. For the evaluation of Relative Risk for Cardiovascular Disease, a High Sensitivity CRP (HSCRP) should be ordered. Performed By: #### L 100.0100, L500.2500 #### [facility] [address] [place], [address] Erythrocyte Sed Rateon 12-08 SED RATE 8 mm/hr Normal 0-20 [facility] Comment on above: Performed By: #### L 100.0100, L500.2500 #### [facility] [address] [place], [address] Erythrocyte sedimentation ra teOrdered By: John Mckeon on 12-08-2024 ESR (Bld) [Velocity] 8 mm/h 0-20 [facility] Cardiology Visit Reporton Cardiology Visit Report [facility] [address] [place], [place] [address] OFFICE VISIT Date of Service: 11/10/24 MR#: [id number] Acct: [id number] Name: RAJAT GUZMÁN Rep #: [id number] : 1935 Provider: Dr. Timoteo Mullins MD Age/Sex: 89/M Location: [facility] Status: Signed HPI HPI History of Present Illness Details: This is a pleasant 89-year-old male who presents today for a cardiovascular follow-up visit. He has a history of coronary artery disease, ischemic cardiomyopathy status post ICD placement, hypertension and dyslipidemia. He was recently taken off his Entresto because he says that his blood pressure was low. He denies chest, arm, jaw, or neck discomfort. He denies palpitations. He denies bilateral lower extremity edema. He denies claudication. He acknowledges occasional shortness of breath that wakes him up. He describes this as noisy breathing. This has been ongoing for six months. This is not every night. He denies shortness of breath with activity, shortness of breath at rest, orthopnea, or PND. He denies chronic cough. He denies significant, sudden weight gain. He denies lightheadedness, dizziness, near-syncope, or syncope. He denies blood in urine, blood in stool, or epistaxis. He denies fever with chills. He denies myalgia. He denies fatigue. His exercise level has remained stable. 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 Accompanied by: Self Is patient in pain?: No Allergies morphine Allergy (Intermediate, Verified 11/10/24 11:01) Rash zolpidem tartrate (From Ambien) Adverse Reaction (Intermediate, Verified 11/10/24 11:01) CONFUSION Medications ???Medication ???Instructions ???Recorded ???Confirmed ???Type aspirin 81 mg tablet,delayed 81 mg PO DAILY 05/23/24 11/10/24 History release (Adult Low Dose Aspirin) dupilumab 300 mg/2 mL subcutaneous 300 mg subcut Q2W 05/23/24 11/10/24 History pen injector nitroglycerin 0.4 mg sublingual 0.4 mg sublingual Q5M PRN Chest 05/23/24 11/10/24 Rx tablet Pain #25 tabs tamsulosin 0.4 mg capsule 0.4 mg PO QDAY 05/23/24 11/10/24 History carvedilol 3.125 mg tablet 3.125 mg PO BID #180 tabs 08/01/24 11/10/24 Rx simvastatin 20 mg tablet 20 mg PO QHS for cholesterol #90 08/23/24 11/10/24 Rx TABLETS gabapentin 100 mg capsule 100 mg PO QDAY PRN 11/10/24 11/10/24 History oxybutynin chloride 5 mg 5 mg PO QDAY 11/10/24 11/10/24 History tablet,extended release 24 hr prednisone 5 mg tablet 5 mg PO QDAY 11/10/24 11/10/24 History Have you fallen in the past year?: Yes PFSH Medical History Non-smoker History of heart attack Presence of stent in coronary artery ( 12/28/18) Cancer High cholesterol History of echocardiogram History of stress test Cardiology follow-up encounter History of CHF (congestive heart failure) Pure hypercholesterolemia 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 General weakness Otitis media Elevated troponin Orchitis of right testicle Sepsis Implantable cardioverter-defibrillator (ICD) at end of battery life Essential hypertension Family history of CVA Family history of hypertension FH: sudden cardiac (SCD) History of placement of internal cardiac defibrillator HTN (hypertension) Old myocardial infarction Angina pectoris Cardiomyopathy, ischemic Chronic systolic congestive heart failure HLD (hyperlipidemia) Abnormal result of cardiovascular function study, unspecified High risk medication use Iron deficiency anemia Chest pain, precordial Atherosclerotic heart disease of [place] coronary artery without angina pectoris Dyspnea Fatigue Hypokalemia Benign prostatic hypertrophy SBO (small bowel obstruction) Surgical History H/O dilation of urethra Hx of transurethral resection of prostate 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) History of cardiac catheterization Hx of colonoscopy Hx of surgical procedure History of hernia repair History of prostate surgery History of left heart catheterization Family History Mother CAD (coronary artery disease) CVA (cerebral vascular accident) Myocardial infarction, Onset Age: 67 Hypertension Brother CAD (coronary artery disease) Hypertension Cancer Lung CA Myocardial infarction, Onset Age: 73 Father Myocardial infarction, Onset Age: 77 Daughter Cancer Son De (more content not included)... Normal [facility] CBC W/Diff, Automatedon 11-0 -2023 Absolute Lymph 1.64 X10 3/uL Normal 0.83-4.51 [facility] Comment on above: Performed By: #### L 100.0100, L500.2500 #### [facility] [address] [place], [address] Absolute Neut 7.8 X10 3/uL High 2.0-7.7 [facility] Comment on above: Performed By: #### L 100.0100, L500.2500 #### [facility] [address] [place], [address] Basophils/100 WBC (Bld) 0.5 % Normal 0-1 [facility] Comment on above: Performed By: #### L 100.0100, L500.2500 #### [facility] [address] [place], [address] Eosinophils/100 WBC (Bld) 2.3 % Normal 0-5 [facility] Comment on above: Performed By: #### L 100.0100, L500.2500 #### [facility] [address] [place], [address] Erythrocyte distribution width (RBC) [Ratio] 14.9 % High 11.6-14.6 [facility] Comment on above: Performed By: #### L 100.0100, L500.2500 #### [facility] [address] [place], [address] Hematocrit (Bld) [Volume fraction] 36.1 % Low 40-54 [facility] Comment on above: Performed By: #### L 100.0100, L500.2500 #### [facility] [address] [place], [address] Hemoglobin (Bld) [Mass/Vol] 11.5 g/dL Low 13.0-16.5 [facility] Comment on above: Performed By: #### L 100.0100, L500.2500 #### [facility] [address] [place], [address] IG% 0.400 Normal 0.0-0.9 [facility] Comment on above: Result Comment: IG% - Immature Granulocytes (promyelocytes, myelocytes and metamyelocytes) > 1% indicates that a LEFT SHIFT is Present. Performed By: #### L 100.0100, L500.2500 #### [facility] [address] [place], [address] Lymphocytes/100 WBC (Bld) 16.1 % Low 19-41 [facility] Comment on above: Performed By: #### L 100.0100, L500.2500 #### [facility] [address] [place], [address] MCH (RBC) [Entitic mass] 29.3 pg Normal 27.0-32.0 [facility] Comment on above: Performed By: #### L 100.0100, L500.2500 #### [facility] [address] [place], [address] MCHC (RBC) [Mass/Vol] 31.9 g/dL Low 32-36 [facility] Comment on above: Performed By: #### L 100.0100, L500.2500 #### [facility] [address] [place], [address] MCV (RBC) [Entitic vol] 91.9 fL Normal 80-94 [facility] Comment on above: Performed By: #### L 100.0100, L500.2500 #### [facility] [address] [place], [address] Monocytes/100 WBC (Bld) 4.5 % Normal 0-10 [facility] Comment on above: Performed By: #### L 100.0100, L500.2500 #### [facility] [address] [place], [address] Neutrophils/100 WBC (Bld) 76.2 % High 47-70 [facility] Comment on above: Performed By: #### L 100.0100, L500.2500 #### [facility] [address] [place], [address] Nucleated RBC (Bld) [#/Vol] 0 10*3/uL Normal 0-5 [facility] Comment on above: Performed By: #### L 100.0100, L500.2500 #### [facility] [address] [place], [address] Platelet mean volume (Bld) [Entitic vol] 11.6 fL Normal 6.2-12.0 [facility] Comment on above: Performed By: #### L 100.0100, L500.2500 #### [facility] [address] [place], [address] Platelets (Bld) [#/Vol] 247 10*3/uL Normal 150-450 [facility] Comment on above: Performed By: #### L 100.0100, L500.2500 #### [facility] [address] [place], [address] RBC (Bld) [#/Vol] 3.93 10*6/uL Low 4.6-6.2 [facility] Comment on above: Performed By: #### L 100.0100, L500.2500 #### [facility] [address] [place], [address] RDW SD 50.4 fl High 35.1-43.9 [facility] Comment on above: Performed By: #### L 100.0100, L500.2500 #### [facility] [address] [place], [address] WBC (Bld) [#/Vol] 10.2 10*3/uL Normal 4.4-11.0 [facility] Comment on above: Performed By: #### L 100.0100, L500.2500 #### [facility] [address] [place], [address] CRPon 09-07-2024 C-REACTIVE PROT 6.91 mg/L High 0.0-3.0 [facility] Comment on above: Result Comment: C-Re active Protein (CRP) provides useful information for the diagnosis, therapy and monitoring of inflammatory processes and associated diseases. For the evaluation of Relative Risk for Cardiovascular Disease, a High Sensitivity CRP (HSCRP) should be ordered. Performed By: #### L 100.0100, L500.2500 #### [facility] [address] [place], [address] Comprehensive Metabolic Prof ilon 09-07-2024 Albumin [Mass/Vol] 3.7 g/dL Normal 3.2-5.0 [facility] Comment on above: Performed By: #### L 100.0100, L500.2500 #### [facility] [address] [place], [address] Albumin/Globulin [Mass ratio] 0.9 {ratio} Normal 0.9-2.4 [facility] Comment on above: Performed By: #### L 100.0100, L500.2500 #### [facility] [address] [place], [address] ALK P 72 U/L Normal 45-117 [facility] Comment on above: Performed By: #### L 100.0100, L500.2500 #### [facility] [address] [place], [address] ALT [Catalytic activity/Vol] 19 U/L Normal 16-61 [facility] Comment on above: Performed By: #### L 100.0100, L500.2500 #### [facility] [address] [place], [address] AST [Catalytic activity/Vol] 17 U/L Normal 15-37 [facility] Comment on above: Performed By: #### L 100.0100, L500.2500 #### [facility] [address] [place], [address] Bilirubin [Mass/Vol] 0.80 mg/dL Normal 0.20-1.00 [facility] Comment on above: Result Comment: For patients on eltrombopag therapy, use of Dimension [place] TBIL is not recommended. Performed By: #### L 100.0100, L500.2500 #### [facility] [address] [place], [address] BUN/CRE 19.6 RATIO Normal 10-20 [facility] Comment on above: Performed By: #### L 100.0100, L500.2500 #### [facility] [address] [place], [address] CA,Total 8.7 mg/dL Normal 8.5-10.1 [facility] Comment on above: Performed By: #### L 100.0100, L500.2500 #### [facility] [address] [place], [address] Chloride [Moles/Vol] 102 mmol/L Normal 98-107 [facility] Comment on above: Performed By: #### L 100.0100, L500.2500 #### [facility] [address] [place], [address] CO2 [Moles/Vol] 31.0 mmol/L Normal 21.0-32.0 [facility] Comment on above: Performed By: #### L 100.0100, L500.2500 #### [facility] [address] [place], [address] Creatinine [Mass/Vol] 0.87 mg/dL Normal 0.70-1.30 [facility] Comment on above: Result Comment: The validity of the calculated GFR GFRAA in patients over 70 years has not been determined. Clinical correlation is essential. Performed By: #### L 100.0100, L500.2500 #### [facility] [address] [place], [address] EST GFR - AA 107 mL/min Normal >60 [facility] Comment on above: Result Comment: Afri can [place] GFR Calc Performed By: #### L 100.0100, L500.2500 #### [facility] [address] [place], [address] GAP 5 Normal 5-15 [facility] Comment on above: Performed By: #### L 100.0100, L500.2500 #### [facility] [address] [place], [address] GFR/1.73 sq M.predicted among non-blacks MDRD (S/P/Bld) [Vol rate/Area] 88 mL/min/{1.73_m2} Normal >60 [facility] Comment on above: Result Comment: Non- GFR Calc Performed By: #### L 100.0100, L500.2500 #### [facility] [address] [place], [address] Globulin (S) [Mass/Vol] 4.1 g/dL Normal 2.2-4.2 [facility] Comment on above: Performed By: #### L 100.0100, L500.2500 #### [facility] [address] [place], [address] Glucose [Mass/Vol] 128 mg/dL High 74-106 [facility] Comment on above: Result Comment: Fast ing Glucose result greater than or equal to 126 mg/dL suggests DIABETES MELLITUS per A.D.A. criteria. Performed By: #### L 100.0100, L500.2500 #### [facility] [address] [place], [address] Potassium [Moles/Vol] 3.1 mmol/L Low 3.5-5.1 [facility] Comment on above: Performed By: #### L 100.0100, L500.2500 #### [facility] [address] [place], [address] Sodium [Moles/Vol] 139 mmol/L Normal 136-145 [facility] Comment on above: Performed By: #### L 100.0100, L500.2500 #### [facility] [address] [place], [address] T PROT 7.8 g/dL Normal 6.4-8.2 [facility] Comment on above: Performed By: #### L 100.0100, L500.2500 #### [facility] [address] [place], [address] Urea nitrogen [Mass/Vol] 17 mg/dL Normal 7-18 [facility] Comment on above: Performed By: #### L 100.0100, L500.2500 #### [facility] [address] [place], [address] Erythrocyte Sed Rateon 09-07 SED RATE 20 mm/hr Normal 0-20 [facility] Comment on above: Performed By: #### L 100.0100, L500.2500 #### [facility] [address] [place], [address] Testosterone, Serum Totalon 09-07-2024 Testosterone [Mass/Vol] ng/dL Normal [facility] Comment on above: Result Comment: CENT RAL 90% REFERENCE RANGES MALE AGE <50 197.44 - 669.58 ng/dL MALE AGE > or = 50 187.72 - 684.19 ng/dL FEMALE AGE <50 8.38 - 35.01 ng/dL FEMALE AGE > or = 50 <7.00 - 35.92 ng/dL Effective as of 05/27/21 Performed By: #### L 100.0100, L500.2500 #### [facility] [address] [place], [address] Thyroid Stim Hormone (TSH)on 09-07-2024 TSH 0.861 uIU/mL Normal 0.358-3.74 0 [facility] Comment on above: Performed By: #### L 100.0100, L500.2500 #### [facility] [address] [place], [address] CRPon 08-03-2024 C-REACTIVE PROT 8.47 mg/L High 0.0-3.0 [facility] Comment on above: Result Comment: C-Re active Protein (CRP) provides useful information for the diagnosis, therapy and monitoring of inflammatory processes and associated diseases. For the evaluation of Relative Risk for Cardiovascular Disease, a High Sensitivity CRP (HSCRP) should be ordered. Performed By: #### L 100.0100, L500.2500 #### [facility] [address] [place], [address] Erythrocyte Sed Rateon 08-03 SED RATE 12 mm/hr Normal 0-20 [facility] Comment on above: Performed By: #### L 100.0100, L500.2500 #### [facility] [address] [place], [address] CT ABDOMEN PELVIS W IV CONTR Nubia 07-10-2024 CT ABDOMEN PELVIS W IV CONTRAST Interpreted By: Sharan Recio, STUDY: CT ABDOMEN PELVIS W IV CONTRAST; 07/10/2024 3:18 pm INDICATION: Signs/Symptoms:PROSTATE CANCER. ,C61 Malignant neoplasm of prostate (Multi) COMPARISON: None. ACCESSION NUMBER(S): [id number] ORDERING CLINICIAN: ASMITA ZAMBRANO TECHNIQUE: CT of the abdomen and pelvis was performed. Standard contiguous axial images were obtained at 3 mm slice thickness through the abdomen and pelvis. Coronal and sagittal reconstructions at 3 mm slice thickness were performed. 73 ml of contrast Omnipaque 350 were administered intravenously without immediate complication. FINDINGS: LOWER CHEST: There is a 0.8 cm nodular density within the left lower lobe (series 4, image 12). There is bronchiectasis and distal bronchial mucous plugging predominantly visualized within the lingula and right middle lobe. The heart is normal in size without significant pericardial effusion. The distal esophagus is unremarkable. ABDOMEN: LIVER: The liver is normal in size and attenuation. Geographic hypodensity adjacent to the falciform ligament is favored to reflect focal fatty infiltrate. No suspicious hepatic lesions. BILE DUCTS: Intrahepatic and extrahepatic bile ducts are prominent which is within normal limits given the status post cholecystectomy. GALLBLADDER: Surgically absent. PANCREAS: No pancreatic ductal dilatation. There is a 0.7 cm cystic lesion within the pancreatic tail (series 3 image 26). There is also a 1.3 cm cystic lesion within the uncinate process (series 3, image 43). SPLEEN: The spleen is normal in size without focal lesions. ADRENAL GLANDS: Bilateral adrenal glands appear normal. KIDNEYS AND URETERS: The kidneys are normal in size and enhance symmetrically. There is a 7.1 cm exophytic simple renal cyst projecting off the superior aspect of the right superior renal pole. Multiple additional tiny subcentimeter hypodense lesions within the bilateral renal cortices are too small to characterize but also favored to represent simple cysts. No hydroureteronephrosis or nephroureterolithiasis is identified. PELVIS: BLADDER: The urinary bladder is decompressed with a Rod catheter in place. There is gas within the nondependent portion of the urinary bladder which is likely from the Rod catheter. There is circumferential urinary bladder wall thickening and submucosal hyperenhancement. REPRODUCTIVE ORGANS: The prostate is borderline enlarged measuring proximally 3.9 x 3.5 cm in greatest transaxial dimensions. BOWEL: The stomach is unremarkable. There is diffuse colonic diverticulosis without evidence of diverticulitis. The small and large bowel are otherwise normal in caliber without evidence of inflammatory wall thickening. The appendix is not definitely visualized. There is however no pericecal stranding or fluid. VESSELS: There is diffuse ectasia of the abdominal aorta measuring up to 2.2 cm in diameter. There are severe calcified and noncalcified atheromatous plaques of the abdominal aorta and its branching vessels. The IVC is unremarkable. PERITONEUM/RETROPERITONEUM /LYMPH NODES: There is no free or loculated fluid collection, no free intraperitoneal air. The retroperitoneum appears normal. No abdominopelvic lymphadenopathy by CT size criteria BONES AND ABDOMINAL WALL: No acute osseous abnormalities or suspicious osseous lesions. Multilevel discogenic degenerative changes are noted throughout the lower thoracic and lumbar spine with scattered intervertebral disc space narrowing and vertebral body osteophytosis. The abdominal wall soft tissues appear normal. IMPRESSION: 1. No evidence of metastatic disease within the abdomen or pelvis. 2. 0.8 cm nodular density within the left lower lobe. Recommend short interval CT chest follow-up in 3 months for re-evaluation versus correlation with outside imaging. 3. Borderline prostatomegaly. 4. Decompressed urinary bladder with a Rod catheter in place which limits evaluation, however, there is circumferential urinary bladder wall thickening and submucosal hyperenhancement suggestive of cystitis. Recommend correlation with urinalysis for further characterization. 5. Colonic diverticulosis without diverticulitis. 6. 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 7. 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 Recommend further evaluation with MRCP/contrast-enhanced MRI of the pancreas for further characterization. MACRO: None Signed by: Sharan Recio 07/11/2024 6:02 PM Dictation workstation: [id number] [facility] Serum Creatinine AND GFRon 0 07-06-2024 Creatinine [Mass/Vol] 1.03 mg/dL Normal 0.70-1.30 [facility] Comment on above: Result Comment: The validity of the calculated GFR GFRAA in patients over 70 years has not been determined. Clinical correlation is essential. Performed By: #### L 501.1105 #### [facility] [address] [place], [place], [id number] EST GFR - AA 88 mL/min Normal >60 [facility] Comment on above: Result Comment: Afri can [place] GFR Calc Performed By: #### L 501.1105 #### [facility] [address] [place], [place], [address] GFR/1.73 sq M.predicted among non-blacks MDRD (S/P/Bld) [Vol rate/Area] 72 mL/min/{1.73_m2} Normal >60 [facility] Comment on above: Result Comment: Non- GFR Calc Performed By: #### L 501.1105 #### [facility] [address] [place], [place], [address] Surgical pathology studyon 0 06-14-2024 Surgical pathology study Pathology report.total SEE COMMENT Surgical Pathology Case: [id number] Authorizing Provider: Asmita Zambrano MD Collected: 06/14/2024 1245 Ordering Location: [facility] Received: 06/14/2024 1248 Pathologist: Moncho Carrillo MD Specimens: A) - PROSTATE NEEDLE BIOPSY RIGHT B) - PROSTATE NEEDLE BIOPSY LEFT Path report.final diagnosis SEE COMMENT A. 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 SEE NOTE. Note: NKX3.1 is positive in tumor cells, supporting prostatic origin. PIN4 immunostain cocktail (including p63, [id number] and AMACR) shows loss of basal cells, confirming the diagnosis of adenocarcinoma. B. 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 SEE NOTE. Note: PIN4 immunostain cocktail (including p63, [id number] and AMACR) shows loss of basal cells, confirming the diagnosis of adenocarcinoma. Laboratory comment By the signature on this report, the individual or group listed as making the Final Interpretation/Diagnosis certifies that they have reviewed this case. RESIDENT REVIEW The gross and/or microscopic findings were reviewed in conjunction with pathology resident, Tracy Hernandez M.D. Path report.relevant Hx formalin Path report.gross observation SEE COMMENT A: Received in formalin, labeled with the patient's name and hospital number and prostate biopsy right, are multiple cylindrical fragments of taylor soft tissue ranging from 0.3 cm to 2.3 cm in length by less than 0.1 cm in diameter. The specimen is submitted in toto in two cassettes. SMS B: Received in formalin, labeled with the patient's name and hospital number and prostate biopsy left., are multiple cylindrical fragments of taylor soft tissue ranging from 0.2 cm to 2.2 cm in length by less than 0.1 cm in diameter. The specimen is submitted in toto in two cassettes. [facility] ASR DISCLAIMER One or more of the reagents used to perform assays on this specimen MAY have contained components considered to be analyte specific reagents (ASR's). ASR's have not been cleared or approved by the U.S. Food and Drug Administration. These assays were developed and their performance characteristics determined by the Department of Pathology at [facility]. The FDA does not require this test to go through premarket FDA review. This test is used for clinical purposes. It should not be regarded as investigational or for research. This laboratory is certified under the Clinical Laboratory Improvement Amendments (CLIA) as qualified to perform high complexity clinical laboratory testing. The assays were performed with appropriate positive and negative controls which stained appropriately. [facility] Urine Cultureon 06-03-2024 [facility] Copy of report sent to Infection Control Printer [id number] 06/03/24 0721 BLUCAS. ESBL Escherichia coli Emmons Count >100,000 MARKER A ESBL producing Organism A ESBL Escherichia coli: REACTION Amikacin Islt ALEX 8 S Ampicillin Islt ALEX >=32 R Ampicillin+Sulbac Islt ALEX >=32 R ceFAZolin Islt ALEX >=64 R Cefepime Islt ALEX 16 R cefoTEtan Islt ALEX <=4 S cefTRIAXone Islt ALEX >=64 R Ciprofloxacin Islt ALEX >=4 R Ertapenem Islt ALEX <=0.12 S B-Lactamase Extended Susc Islt POS Gentamicin Islt ALEX >=16 R Imipenem Islt ALEX <=0.25 S levoFLOXacin Islt ALEX >=8 R Meropenem Islt ALEX <=0.25 S Nitrofurantoin Islt ALEX 64 I Pip+Tazo Islt ALEX 8 S Tetracycline Islt ALEX >=16 R Tobramycin Islt ALEX >=16 R TMP SMX Islt ALEX <=20 S Cefuroxime Islt ALEX >=64 R Normal [facility] Comment on above: Performed By: #### L 501.9981 #### [facility] [address] [place], [address] CBC W/Diff, Automatedon 05-03 Absolute Lymph 1.36 X10 3/uL Normal 0.83-4.51 [facility] Comment on above: Performed By: #### L 500.4050, L100.0100, L101.9900, L501.6710 #### [facility] [address] [place], [address] Absolute Neut 5.8 X10 3/uL Normal 2.0-7.7 [facility] Comment on above: Performed By: #### L 500.4050, L100.0100, L101.9900, L501.6710 #### [facility] [address] [place], [address] Basophils/100 WBC (Bld) 0.5 % Normal 0-1 [facility] Comment on above: Performed By: #### L 500.4050, L100.0100, L101.9900, L501.6710 #### [facility] [address] [place], [address] Eosinophils/100 WBC (Bld) 0.1 % Normal 0-5 [facility] Comment on above: Performed By: #### L 500.4050, L100.0100, L101.9900, L501.6710 #### [facility] [address] [place], [address] Erythrocyte distribution width (RBC) [Ratio] 14.0 % Normal 11.6-14.6 [facility] Comment on above: Performed By: #### L 500.4050, L100.0100, L101.9900, L501.6710 #### [facility] [address] [place], [address] Hematocrit (Bld) [Volume fraction] 35.5 % Low 40-54 [facility] Comment on above: Performed By: #### L 500.4050, L100.0100, L101.9900, L501.6710 #### [facility] [address] [place], [address] Hemoglobin (Bld) [Mass/Vol] 11.5 g/dL Low 13.0-16.5 [facility] Comment on above: Performed By: #### L 500.4050, L100.0100, L101.9900, L501.6710 #### [facility] [address] [place], [address] IG% 0.400 Normal 0.0-0.9 [facility] Comment on above: Result Comment: IG% - Immature Granulocytes (promyelocytes, myelocytes and metamyelocytes) > 1% indicates that a LEFT SHIFT is Present. Performed By: #### L 500.4050, L100.0100, L101.9900, L501.6710 #### [facility] [address] [place], [address] Lymphocytes/100 WBC (Bld) 16.6 % Low 19-41 [facility] Comment on above: Performed By: #### L 500.4050, L100.0100, L101.9900, [id number] #### [facility] [address] [place], [address] MCH (RBC) [Entitic mass] 28.6 pg Normal 27.0-32.0 [facility] Comment on above: Performed By: #### L 500.4050, L100.0100, L101.9900, [id number] #### [facility] [address] [place], [address] MCHC (RBC) [Mass/Vol] 32.4 g/dL Normal 32-36 [facility] Comment on above: Performed By: #### L 500.4050, L100.0100, L101.9900, [id number] #### [facility] [address] [place], [address] MCV (RBC) [Entitic vol] 88.3 fL Normal 80-94 [facility] Comment on above: Performed By: #### L 500.4050, L100.0100, L101.9900, [id number] #### [facility] [address] [place], [address] Monocytes/100 WBC (Bld) 12.1 % High 0-10 [facility] Comment on above: Performed By: #### L 500.4050, L100.0100, L101.9900, [id number] #### [facility] [address] [place], [address] Neutrophils/100 WBC (Bld) 70.3 % High 47-70 [facility] Comment on above: Performed By: #### L 500.4050, L100.0100, L101.9900, [id number] #### [facility] [address] [place], [address] Nucleated RBC (Bld) [#/Vol] 0 10*3/uL Normal 0-5 [facility] Comment on above: Performed By: #### L 500.4050, L100.0100, L101.9900, [id number] #### [facility] [address] [place], [address] Platelet mean volume (Bld) [Entitic vol] 12.4 fL High 6.2-12.0 [facility] Comment on above: Performed By: #### L 500.4050, L100.0100, L101.9900, [id number] #### [facility] [address] [place], [address] Platelets (Bld) [#/Vol] 214 10*3/uL Normal 150-450 [facility] Comment on above: Performed By: #### L 500.4050, L100.0100, L101.9900, [id number] #### [facility] [address] [place], [address] RBC (Bld) [#/Vol] 4.02 10*6/uL Low 4.6-6.2 [facility] Comment on above: Performed By: #### L 500.4050, L100.0100, L101.9900, [id number] #### [facility] [address] [place], [address] RDW SD 45.4 fl High 35.1-43.9 [facility] Comment on above: Performed By: #### L 500.4050, L100.0100, L101.9900, [id number] #### [facility] [address] [place], [address] WBC (Bld) [#/Vol] 8.2 10*3/uL Normal 4.4-11.0 [facility] Comment on above: Performed By: #### L 500.4050, L100.0100, L101.9900, [id number] #### [facility] [address] [place], [address] CRPon 05-30-2024 C-REACTIVE PROT 97.30 mg/L High 0.0-3.0 [facility] Comment on above: Order Comment: URINE SUPPLIES GIVEN,PT UTV. RANGLE Result Comment: C-Re active Protein (CRP) provides useful information for the diagnosis, therapy and monitoring of inflammatory processes and associated diseases. For the evaluation of Relative Risk for Cardiovascular Disease, a High Sensitivity CRP (HSCRP) should be ordered. Performed By: #### L 500.4050, L100.0100, L101.9900, [id number] #### [facility] [address] [place], [address] Comprehensive Metabolic Prof ilon 05-30-2024 Albumin [Mass/Vol] 3.0 g/dL Low 3.2-5.0 [facility] Comment on above: Order Comment: URINE SUPPLIES GIVEN,PT UTV. RANGLE Performed By: #### L 500.4050, L100.0100, L101.9900, [id number] #### [facility] [address] [place], [address] Albumin/Globulin [Mass ratio] 0.7 {ratio} Low 0.9-2.4 [facility] Comment on above: Order Comment: URINE SUPPLIES GIVEN,PT UTV. RANGLE Performed By: #### L 500.4050, L100.0100, L101.9900, [id number] #### [facility] [address] [place], [address] ALK P 63 U/L Normal 45-117 [facility] Comment on above: Order Comment: URINE SUPPLIES GIVEN,PT UTV. RANGLE Performed By: #### L 500.4050, L100.0100, L101.9900, [id number] #### [facility] [address] [place], [address] ALT [Catalytic activity/Vol] 11 U/L Low 16-61 [facility] Comment on above: Order Comment: URINE SUPPLIES GIVEN,PT UTV. RANGLE Performed By: #### L 500.4050, L100.0100, L101.9900, [id number] #### [facility] [address] [place], [address] AST [Catalytic activity/Vol] 24 U/L Normal 15-37 [facility] Comment on above: Order Comment: URINE SUPPLIES GIVEN,PT UTV. RANGLE Performed By: #### L 500.4050, L100.0100, L101.9900, [id number] #### [facility] [address] [place], [address] Bilirubin [Mass/Vol] 1.60 mg/dL High 0.20-1.00 [facility] Comment on above: Order Comment: URINE SUPPLIES GIVEN,PT UTV. RANGLE Result Comment: For patients on eltrombopag therapy, use of Dimension [place] TBIL is not recommended. Performed By: #### L 500.4050, L100.0100, L101.9900, [id number] #### [facility] [address] [place], [address] BUN/CRE 18.2 RATIO Normal 10-20 [facility] Comment on above: Order Comment: URINE SUPPLIES GIVEN,PT UTV. RANGLE Performed By: #### L 500.4050, L100.0100, L101.9900, [id number] #### [facility] [address] [place], [address] CA,Total 8.6 mg/dL Normal 8.5-10.1 [facility] Comment on above: Order Comment: URINE SUPPLIES GIVEN,PT UTV. RANGLE Performed By: #### L 500.4050, L100.0100, L101.9900, [id number] #### [facility] [address] [place], [address] Chloride [Moles/Vol] 102 mmol/L Normal 98-107 [facility] Comment on above: Order Comment: URINE SUPPLIES GIVEN,PT UTV. RANGLE Performed By: #### L 500.4050, L100.0100, L101.9900, [id number] #### [facility] [address] [place], [address] CO2 [Moles/Vol] 23.0 mmol/L Normal 21.0-32.0 [facility] Comment on above: Order Comment: URINE SUPPLIES GIVEN,PT UTV. RANGLE Performed By: #### L 500.4050, L100.0100, L101.9900, [id number] #### [facility] [address] [place], [address] Creatinine [Mass/Vol] 1.21 mg/dL Normal 0.70-1.30 [facility] Comment on above: Order Comment: URINE SUPPLIES GIVEN,PT UTV. RANGLE Result Comment: The validity of the calculated GFR GFRAA in patients over 70 years has not been determined. Clinical correlation is essential. Performed By: #### L 500.4050, L100.0100, L101.9900, [id number] #### [facility] [address] [place], [address] EST GFR - AA 73 mL/min Normal >60 [facility] Comment on above: Order Comment: URINE SUPPLIES GIVEN,PT UTV. RANGLE Result Comment: Afri can [place] GFR Calc Performed By: #### L 500.4050, L100.0100, L101.9900, [id number] #### [facility] [address] [place], [address] GAP 10 Normal 5-15 [facility] Comment on above: Order Comment: URINE SUPPLIES GIVEN,PT UTV. RANGLE Performed By: #### L 500.4050, L100.0100, L101.9900, [id number] #### [facility] [address] [place], [address] GFR/1.73 sq M.predicted among non-blacks MDRD (S/P/Bld) [Vol rate/Area] 60 mL/min/{1.73_m2} Normal >60 [facility] Comment on above: Order Comment: URINE SUPPLIES GIVEN,PT UTV. RANGLE Result Comment: Non- GFR Calc Performed By: #### L 500.4050, L100.0100, L101.9900, [id number] #### [facility] [address] [place], [address] Globulin (S) [Mass/Vol] 4.4 g/dL High 2.2-4.2 [facility] Comment on above: Order Comment: URINE SUPPLIES GIVEN,PT UTV. RANGLE Performed By: #### L 500.4050, L100.0100, L101.9900, [id number] #### [facility] [address] [place], [address] Glucose [Mass/Vol] 137 mg/dL High 74-106 [facility] Comment on above: Order Comment: URINE SUPPLIES GIVEN,PT UTV. RANGLE Result Comment: Fast ing Glucose result greater than or equal to 126 mg/dL suggests DIABETES MELLITUS per A.D.A. criteria. Performed By: #### L 500.4050, L100.0100, L101.9900, L501.6710 #### [facility] [address] [place], [address] Potassium [Moles/Vol] 3.1 mmol/L Low 3.5-5.1 [facility] Comment on above: Order Comment: URINE SUPPLIES GIVEN,PT UTV. RANGLE Performed By: #### L 500.4050, L100.0100, L101.9900, L501.6710 #### [facility] [address] [place], [address] Sodium [Moles/Vol] 135 mmol/L Low 136-145 [facility] Comment on above: Order Comment: URINE SUPPLIES GIVEN,PT UTV. RANGLE Performed By: #### L 500.4050, L100.0100, L101.9900, [id number] #### [facility] [address] [place], [address] T PROT 7.4 g/dL Normal 6.4-8.2 [facility] Comment on above: Order Comment: URINE SUPPLIES GIVEN,PT UTV. RANGLE Performed By: #### L 500.4050, L100.0100, L101.9900, L501.6710 #### [facility] [address] [place], [address] Urea nitrogen [Mass/Vol] 22 mg/dL High 7-18 [facility] Comment on above: Order Comment: URINE SUPPLIES GIVEN,PT UTV. RANGLE Performed By: #### L 500.4050, L100.0100, L101.9900, L501.6710 #### [facility] [address] [place], [address] Erythrocyte Sed Rateon 05-30 SED RATE 18 mm/hr Normal 0-20 [facility] Comment on above: Performed By: #### L 500.4050, L100.0100, L101.9900, L501.6710 #### [facility] [address] [place], [address] Cardiology Visit Reporton Cardiology Visit Report [facility] [address] [place] [address] OFFICE VISIT Date of Service: 05/23/24 MR#: [id number] Acct: [id number] Name: RAJAT GUZMÁN Rep #: [id number] : 1935 Provider: MORTEZA frazier Age/Sex: 89/M Location: [facility] Status: Signed HPI HPI History of Present Illness Details: This is a pleasant 89-year-old male who presents today for a cardiovascular follow-up visit. He has a history of coronary artery disease, ischemic cardiomyopathy status post ICD placement, hypertension and dyslipidemia. He denies chest, arm, jaw, or neck discomfort. He denies palpitations. He denies bilateral lower extremity edema. He denies claudication. He acknowledges occasional shortness of breath that wakes him up. He describes this as noisy breathing. This has been ongoing for six months. This is not every night. He denies shortness of breath with activity, shortness of breath at rest, orthopnea, or PND. He denies chronic cough. He denies significant, sudden weight gain. He denies lightheadedness, dizziness, near-syncope, or syncope. He denies blood in urine, blood in stool, or epistaxis. He denies fever with chills. He denies myalgia. He denies fatigue. His exercise level has remained stable. Intake Vital Signs 11/23/23 14:19 03/30/24 03:31 05/23/24 14:19 Height 5 ft 3 in 5 ft 3 in 5 ft 3 in Weight: 110 lb BMI 19.5 BP 118/64 Blood Pressure Location Lt brachial Position Sitting Respiration 16 Pulse 70 Pulse Source NIBP Intake Visit Reasons: 6 M FU [employer] Required: No Is patient in pain?: No Allergies morphine Allergy (Intermediate, Verified 05/23/24 14:22) Rash zolpidem tartrate (From Ambien) Adverse Reaction (Intermediate, Verified 05/23/24 14:22) CONFUSION Medications ???Medication ???Instructions ???Recorded ???Confirmed ???Type carvedilol 3.125 mg tablet 3.125 mg PO BID #180 tabs 06/17/23 05/23/24 Rx sacubitril 24 mg-valsartan 26 mg 1 tab PO BID #180 tabs 11/23/23 05/23/24 Rx tablet (Entresto) simvastatin 20 mg tablet 20 mg PO QHS 03/21/24 05/23/24 History aspirin 81 mg tablet,delayed 81 mg PO DAILY 05/23/24 05/23/24 History release (Adult Low Dose Aspirin) dupilumab 300 mg/2 mL subcutaneous 300 mg subcut Q2W 05/23/24 05/23/24 History pen injector nitroglycerin 0.4 mg sublingual 0.4 mg sublingual Q5M PRN Chest 05/23/24 05/23/24 Rx tablet Pain #25 tabs tamsulosin 0.4 mg capsule 0.4 mg PO QDAY 05/23/24 05/23/24 History Ejection fraction %: 25 Have you fallen in the past year?: No PFSH Medical History Non-smoker History of heart attack Presence of stent in coronary artery ( 12/28/18) Cancer High cholesterol History of echocardiogram History of stress test Cardiology follow-up encounter History of CHF (congestive heart failure) Pure hypercholesterolemia 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 General weakness Otitis media Elevated troponin Orchitis of right testicle Sepsis Implantable cardioverter-defibrillator (ICD) at end of battery life Essential hypertension Family history of CVA Family history of hypertension FH: sudden cardiac (SCD) History of placement of internal cardiac defibrillator HTN (hypertension) Old myocardial infarction Angina pectoris Cardiomyopathy, ischemic Chronic systolic congestive heart failure HLD (hyperlipidemia) Abnormal result of cardiovascular function study, unspecified High risk medication use Iron deficiency anemia Chest pain, precordial Atherosclerotic heart disease of [place] coronary artery without angina pectoris Dyspnea Fatigue Hypokalemia Benign prostatic hypertrophy SBO (small bowel obstruction) Surgical History H/O dilation of urethra Hx of transurethral resection of prostate 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) History of cardiac catheterization Hx of colonoscopy Hx of surgical procedure History of hernia repair History of prostate surgery History of left heart catheterization Family History Mother CAD (coronary artery disease) CVA (cerebral vascular accident) Myocardial infarction, Onset Age: 67 Hypertension Brother CAD (coronary artery disease) Hypertension Cancer Lung CA Myocardial infarction, Onset Age: 73 Father Myocardial infarction, Onset Age: 77 Daughter Cancer Son Myocardial infarction, Onset Age: 46 Other Cardiomyopathy, ischemic Chronic systolic congestive heart failure Fatigue General weakness Iron deficiency anemia Social History household members: spouse Smoking Status: Never smo (more content not included)... Normal [facility] PSA,Total- Diagnosticon 05-01 PSA, DIAGNOSTIC 19.90 ng/mL High 0.0-4.0 [facility] Comment on above: Result Comment: This test was performed using the TPSA assay method for the [employer] chemistry system. Values obtained with different assay methods cannot be used interchangably. When changing PSA assays in the course of monitoring a patient, additional sequential testing should be carried out to confirm baseline values. Performed By: #### L 501.9940, L501.1105 #### [facility] [address] [place], [place], [address] Serum Creatinine AND GFRon 0 05-17-2024 Creatinine [Mass/Vol] 0.92 mg/dL Normal 0.70-1.30 [facility] Comment on above: Result Comment: The validity of the calculated GFR GFRAA in patients over 70 years has not been determined. Clinical correlation is essential. Performed By: #### L 501.9940, L501.1105 #### [facility] [address] [place], [address] EST GFR - AA 100 mL/min Normal >60 [facility] Comment on above: Result Comment: Afri can [place] GFR Calc Performed By: #### L 501.9940, L501.1105 #### [facility] [address] [place], [place], [address] GFR/1.73 sq M.predicted among non-blacks MDRD (S/P/Bld) [Vol rate/Area] 83 mL/min/{1.73_m2} Normal >60 [facility] Comment on above: Result Comment: Non- GFR Calc Performed By: #### L 501.9940, L501.1105 #### [facility] [address] [place], [address] Basophil percentageOrdered B y: John Mckeon on 11-26-2023 Chloride [Moles/Vol] 105 mmol/L 98-107 [facility] Glucose [Mass/Vol] 102 mg/dL 74-106 [facility] Comment on above: Fasting Glucose resu lt from 100 to 125 mg/dL suggests IMPAIRED HOMEOSTASIS per A.D.A. criteria. Potassium [Moles/Vol] 4.0 mmol/L 3.5-5.1 [facility] Sodium [Moles/Vol] 137 mmol/L 136-145 [facility] - Chemistry and C hemistry - challengeOrdered By: John Mckeon on 11-26-2023 CO2 [Moles/Vol] 26.0 mmol/L 21.0-32.0 [facility] Magnesium [Mass/Vol] 2.4 mg/dL 1.6-2.6 [facility] Urea nitrogen/Creatinine [Mass ratio] 16.8 mg/mg 10-20 [facility] No Panel InformationOrdered By: John Mckeon on 11-26-2023 Estimated GFR (MDRD) Amer 112 mL/min >60 [facility] Comment on above: GFR Calc Estimated GFR (MDRD) Non-Af Amer 93 mL/min >60 [facility] Comment on above: Non- GFR Calc Serum or plasma calcium alfonso urement (mass/volume)Ordered By: John Mckeon on 11-26-2023 Calcium [Mass/Vol] 9.1 mg/dL 8.5-10.1 [facility] Serum or plasma creatinine m easurement (mass/volume)Ordered By: John Mckeon on 11-26-2023 Creatinine [Mass/Vol] 0.83 mg/dL 0.70-1.30 [facility] Comment on above: The validity of the calculated GFR & GFRAA in patients over 70 years has not been determined. Clinical correlation is essential. Serum or plasma urea nitroge n measurement (mass/volume)Ordered By: John Mckeon on 11-26-2023 Urea nitrogen [Mass/Vol] 14 mg/dL 7-18 [facility] Thin prep Papanicolaou smear with manual screeningOrdered By: John Mckeon on 11-26-2023 Thin prep Papanicolaou smear with manual screening 6 5-15 [facility] INR in Blood by Coagulation assayOrdered By: Zacarias Valdes on 10-12-2023 INR Coag (Bld) [Relative time] 1.0 {INR} [facility] - CoagulationOrde red By: Zacarias Valdes on 10-12-2023 aPTT Coag (Bld) [Time] 28.7 s 24.1-36.2 [facility] PT Coag (PPP) [Time] 12.9 s 11.7-14.9 [facility] Culture, urineOrdered By: Nestor Mckeon on 09-15-2023 Bacteria identified Cx Nom (U) GPC Poss Enterococcus sp [facility] Basophil percentageOrdered B y: Manisha Varela on 09-06-2023 Chloride [Moles/Vol] 108 mmol/L 98-107 [facility] Glucose [Mass/Vol] 200 mg/dL 74-106 [facility] Comment on above: Glucose result great er than or equal to 200 mg/dLsuggests DIABETES MELLITUS per A.D.A. criteria. Potassium [Moles/Vol] 3.3 mmol/L 3.5-5.1 [facility] Sodium [Moles/Vol] 139 mmol/L 136-145 [facility] - Chemistry and C hemistry - challengeOrdered By: Manisha Varela on 09-06-2023 CO2 [Moles/Vol] 24.0 mmol/L 21.0-32.0 [facility] Urea nitrogen/Creatinine [Mass ratio] 23.3 mg/mg 10-20 [facility] No Panel InformationOrdered By: Manisha Varela on 09-06-2023 Estimated Creatinine Clearance Calc 40.32 ml/min [facility] Estimated GFR (MDRD) Amer 102 mL/min >60 [facility] Comment on above: GFR Calc Estimated GFR (MDRD) Non-Af Amer 84 mL/min >60 [facility] Comment on above: Non- GFR Calc Serum or plasma calcium alfonso urement (mass/volume)Ordered By: Manisha Varela on 09-06-2023 Calcium [Mass/Vol] 8.2 mg/dL 8.5-10.1 [facility] Serum or plasma creatinine m easurement (mass/volume)Ordered By: Manisha Varela on 09-06-2023 Creatinine [Mass/Vol] 0.90 mg/dL 0.70-1.30 [facility] Comment on above: The validity of the calculated GFR & GFRAA in patients over 70 years has not been determined. Clinical correlation is essential. Serum or plasma urea nitroge n measurement (mass/volume)Ordered By: Manisha Varela on 09-06-2023 Urea nitrogen [Mass/Vol] 21 mg/dL 7-18 [facility] Thin prep Papanicolaou smear with manual screeningOrdered By: Manisha Varela on 09-06-2023 Thin prep Papanicolaou smear with manual screening 7 5-15 [facility] Absolute lymphocyte countOrd ered By: Manisha Varela on 09-05-2023 Lymphocytes Auto (Unsp spec) [#/Vol] 1.75 10*3/uL 0.83-4.51 [facility] Basophil percentageOrdered B y: Manisha Varela on 09-05-2023 Basophils/100 WBC (Bld) 0.5 % 0-1 [facility] Chloride [Moles/Vol] 106 mmol/L 98-107 [facility] Eosinophils/100 WBC (Bld) 1.9 % 0-5 [facility] Glucose [Mass/Vol] 64 mg/dL 74-106 [facility] Neutrophils (Bld) [#/Vol] 5.3 10*3/uL 2.0-7.7 [facility] Neutrophils/100 WBC (Bld) 64.8 % 47-70 [facility] Potassium [Moles/Vol] 4.0 mmol/L 3.5-5.1 [facility] Sodium [Moles/Vol] 137 mmol/L 136-145 [facility] WBC (Bld) [#/Vol] 8.2 10*3/uL 4.4-11.0 [facility] Blood erythrocytes count (nu mber/volume)Ordered By: Manisha Varela on 09-05-2023 RBC (Bld) [#/Vol] 3.50 10*6/uL 4.6-6.2 [facility] Blood hemoglobin measurement (mass/volume)Ordered By: Manisha Varela on 09-05-2023 Hemoglobin (Bld) [Mass/Vol] 10.3 g/dL 13.0-16.5 [facility] Blood lymphocytes/100 leukoc ytesOrdered By: Manisha Varela on 09-05-2023 Lymphocytes/100 WBC (Bld) 21.3 % 19-41 [facility] Blood monocytes/100 leukocyt esOrdered By: Manisha Varela on 09-05-2023 Monocytes/100 WBC (Bld) 11.3 % 0-10 [facility] Blood platelet mean volumeOr dered By: Manisha Varela on 09-05-2023 Platelet mean volume (Bld) [Entitic vol] 11.8 fL 6.2-12.0 [facility] Determination of erythrocyte mean corpuscular volume (MCV)Ordered By: Manisha Varela on 09-05-2023 MCV (RBC) [Entitic vol] 93.4 fL 80-94 [facility] Hematocrit Auto (Bld) [Volum e fraction]Ordered By: Manisha Varela on 09-05-2023 Hematocrit (Bld) [Volume fraction] 32.7 % 40-54 [facility] - Chemistry and C hemistry - challengeOrdered By: Manisha Varela on 09-05-2023 CO2 [Moles/Vol] 19.0 mmol/L 21.0-32.0 [facility] Urea nitrogen/Creatinine [Mass ratio] 28.1 mg/mg 10-20 [facility] - Hematology and Cell countsOrdered By: Manisha Varela on 09-05-2023 Erythrocyte distribution width (RBC) [Entitic vol] 49.9 fL 35.1-43.9 [facility] Erythrocyte distribution width (RBC) [Ratio] 14.6 % 11.6-14.6 [facility] Immature granulocytes/100 WBC (Bld) 0.200 % 0.0-0.9 [facility] Comment on above: IG% - Immature Granu locytes (promyelocytes, myelocytes and metamyelocytes) > 1% indicates that a LEFT SHIFT is Present. MCH (RBC) [Entitic mass] 29.4 pg 27.0-32.0 [facility] Nucleated RBC/100 WBC (Bld) [Ratio] 0 % 0-5 [facility] MCHC Auto (RBC) [Mass/Vol]Or dered By: Manisha Varela on 09-05-2023 MCHC (RBC) [Mass/Vol] 31.5 g/dL 32-36 [facility] No Panel InformationOrdered By: Manisha Varela on 09-05-2023 Estimated Creatinine Clearance Calc 36.29 ml/min [facility] Estimated GFR (MDRD) Amer 91 mL/min >60 [facility] Comment on above: GFR Calc Estimated GFR (MDRD) Non-Af Amer 75 mL/min >60 [facility] Comment on above: Non- GFR Calc Platelets bldOrdered By: Andrew Varela on 09-05-2023 Platelets (Bld) [#/Vol] 183 10*3/uL 150-450 [facility] Serum or plasma calcium alfonso urement (mass/volume)Ordered By: Manisha Varela on 09-05-2023 Calcium [Mass/Vol] 8.4 mg/dL 8.5-10.1 [facility] Serum or plasma creatinine m easurement (mass/volume)Ordered By: Manisha Varela on 09-05-2023 Creatinine [Mass/Vol] 1.00 mg/dL 0.70-1.30 [facility] Comment on above: The validity of the calculated GFR & GFRAA in patients over 70 years has not been determined. Clinical correlation is essential. Serum or plasma urea nitroge n measurement (mass/volume)Ordered By: Manisha Varela on 09-05-2023 Urea nitrogen [Mass/Vol] 28 mg/dL 7-18 [facility] Thin prep Papanicolaou smear with manual screeningOrdered By: Manisha Varela on 09-05-2023 Thin prep Papanicolaou smear with manual screening 12 5-15 [facility] Absolute lymphocyte countOrd ered By: Robbi Hopkins on 09-04-2023 Lymphocytes Auto (Unsp spec) [#/Vol] 1.47 10*3/uL 0.83-4.51 [facility] Basophil percentageOrdered B y: Robbi Hopkins on 09-04-2023 Basophils/100 WBC (Bld) 0.4 % 0-1 [facility] Bilirubin [Mass/Vol] 1.80 mg/dL 0.20-1.00 [facility] Comment on above: For patients on eltr ombopag therapy, use of Dimension [place] TBIL is not recommended. Chloride [Moles/Vol] 101 mmol/L 98-107 [facility] Eosinophils/100 WBC (Bld) 0.2 % 0-5 [facility] Glucose [Mass/Vol] 94 mg/dL 74-106 [facility] Neutrophils (Bld) [#/Vol] 10.3 10*3/uL 2.0-7.7 [facility] Neutrophils/100 WBC (Bld) 77.7 % 47-70 [facility] Potassium [Moles/Vol] 4.2 mmol/L 3.5-5.1 [facility] Protein [Mass/Vol] 7.2 g/dL 6.4-8.2 [facility] Sodium [Moles/Vol] 134 mmol/L 136-145 [facility] WBC (Bld) [#/Vol] 13.2 10*3/uL 4.4-11.0 [facility] Basophil percentage 5-10 SEEN /hpf 0-5 [facility] Bilirubin Test strip Ql (U)O rdered By: Robbi Hopkins on 09-04-2023 Bilirubin Ql (U) Negative Negative [facility] Blood erythrocytes count (nu mber/volume)Ordered By: Robbi Hopkins on 09-04-2023 RBC (Bld) [#/Vol] 3.84 10*6/uL 4.6-6.2 [facility] Blood hemoglobin measurement (mass/volume)Ordered By: Robbi Hopkins on 09-04-2023 Hemoglobin (Bld) [Mass/Vol] 11.3 g/dL 13.0-16.5 [facility] Blood lymphocytes/100 leukoc ytesOrdered By: Robbi Hopkins on 09-04-2023 Lymphocytes/100 WBC (Bld) 11.1 % 19-41 [facility] Blood monocytes/100 leukocyt esOrdered By: Robbi Hopkins on 09-04-2023 Monocytes/100 WBC (Bld) 10.2 % 0-10 [facility] Blood platelet mean volumeOr dered By: Robbi Hopkins on 09-04-2023 Platelet mean volume (Bld) [Entitic vol] 11.7 fL 6.2-12.0 [facility] Culture, urineOrdered By: Umer Hopkins on 09-04-2023 Bacteria identified Cx Nom (U) Staphylococcus lugdunensis [facility] Determination of erythrocyte mean corpuscular volume (MCV)Ordered By: Robbi Hopkins on 09-04-2023 MCV (RBC) [Entitic vol] 93.0 fL 80-94 [facility] Hematocrit Auto (Bld) [Volum e fraction]Ordered By: Robbi Hopkins on 09-04-2023 Hematocrit (Bld) [Volume fraction] 35.7 % 40-54 [facility] Ketones Test strip Ql (U)Ord ered By: Robbi Hopkins on 09-04-2023 Ketones Ql (U) 50 mg/dl Negative [facility] Laboratory - Chemistry and C hemistry - challengeOrdered By: Robbi Hopkins on 09-04-2023 ALP [Catalytic activity/Vol] 54 U/L 45-117 [facility] ALT [Catalytic activity/Vol] 11 U/L 16-61 [facility] CO2 [Moles/Vol] 17.0 mmol/L 21.0-32.0 [facility] Globulin (S) [Mass/Vol] 3.8 g/dL 2.2-4.2 [facility] Lipase [Catalytic activity/Vol] 11 U/L 13-75 [facility] Comment on above: Please note:LIPASE r evised reference range effective 23. New Lipase methodology. Expected to produce lower values than the previous assay method. NEW Reference Range: 13 - 75 U/L Urea nitrogen/Creatinine [Mass ratio] 25.2 mg/mg 10-20 [facility] Laboratory - Hematology and Cell countsOrdered By: Robbi Hopkins on 09-04-2023 Erythrocyte distribution width (RBC) [Entitic vol] 49.5 fL 35.1-43.9 [facility] Erythrocyte distribution width (RBC) [Ratio] 14.6 % 11.6-14.6 [facility] Immature granulocytes/100 WBC (Bld) 0.400 % 0.0-0.9 [facility] Comment on above: IG% - Immature Granu locytes (promyelocytes, myelocytes and metamyelocytes) > 1% indicates that a LEFT SHIFT is Present. MCH (RBC) [Entitic mass] 29.4 pg 27.0-32.0 [facility] Nucleated RBC/100 WBC (Bld) [Ratio] 0 % 0-5 [facility] MCHC Auto (RBC) [Mass/Vol]Or dered By: Robbi Hopkins on 09-04-2023 MCHC (RBC) [Mass/Vol] 31.7 g/dL 32-36 [facility] Mucus LM Ql (Urine sed)Order ed By: Robbi Hopkins on 09-04-2023 Mucus Ql (Urine sed) 0 SEEN /hpf [facility] Nitrite Test strip Ql (U)Ord ered By: Robbi Hopkins on 09-04-2023 Nitrite Ql (U) Positive Negative [facility] No Panel InformationOrdered By: Robbi Hopkins on 09-04-2023 Estimated Creatinine Clearance Calc 27.02 ml/min [facility] Estimated GFR (MDRD) Amer 62 mL/min >60 [facility] Comment on above: GFR Calc Estimated GFR (MDRD) Non-Af Amer 51 mL/min >60 [facility] Comment on above: Non- GFR Calc Platelets bldOrdered By: Coco Hopkins on 09-04-2023 Platelets (Bld) [#/Vol] 208 10*3/uL 150-450 [facility] Protein Test strip Ql (U)Ord ered By: Robbi Hopkins on 09-04-2023 Protein Ql (U) 15 mg/dl Negative [facility] Serum or plasma albumin alfonso urement (mass/volume)Ordered By: Robbi Hopkins on 09-04-2023 Albumin [Mass/Vol] 3.4 g/dL 3.2-5.0 [facility] Serum or plasma albumin/glob ulin mass ratioOrdered By: Robbi Hopkins on 09-04-2023 Albumin/Globulin [Mass ratio] 0.9 {ratio} 0.9-2.4 [facility] Serum or plasma calcium alfonso urement (mass/volume)Ordered By: Robbi Hopkins on 09-04-2023 Calcium [Mass/Vol] 8.7 mg/dL 8.5-10.1 [facility] Serum or plasma creatinine m easurement (mass/volume)Ordered By: Robbi Hopkins on 09-04-2023 Creatinine [Mass/Vol] 1.39 mg/dL 0.70-1.30 [facility] Comment on above: The validity of the calculated GFR & GFRAA in patients over 70 years has not been determined. Clinical correlation is essential. Serum or plasma urea nitroge n measurement (mass/volume)Ordered By: Robbi Hopkins on 09-04-2023 Urea nitrogen [Mass/Vol] 35 mg/dL 7-18 [facility] Squamous epithelial cells de tection in urine sediment by light microscopyOrdered By: Robbi Hopkins on 09-04-2023 Epithelial cells.squamous LM Ql (Urine sed) 0 SEEN /hpf 0-5 [facility] Thin prep Papanicolaou smear with manual screeningOrdered By: Robbi Hopkins on 09-04-2023 Thin prep Papanicolaou smear with manual screening 10 U/L 15-37 [facility] Thin prep Papanicolaou smear with manual screening 16 5-15 [facility] Urine blood detectionOrdered By: Robbi Hopkins on 09-04-2023 RBC Ql (U) 150 /ul Negative [facility] RBC Ql (U) 0-5 SEEN /hpf 0-5 [facility] Urine clarityOrdered By: Coco Hopkins on 09-04-2023 Clarity (U) Sl. Cloudy Clear [facility] Urine color determinationOrd ered By: Robbi Hopkins on 09-04-2023 Color (U) Yellow Yellow [facility] Urine glucose detectionOrder ed By: Robbi Hopkins on 09-04-2023 Glucose Ql (U) Normal mg/dl Normal [facility] Urine leukocyte esterase det ection by dipstickOrdered By: Robbi Hopkins on 09-04-2023 Leukocyte esterase Test strip Ql (U) 25 /ul Negative [facility] Urine pHOrdered By: Robbi delgadillo on 09-04-2023 pH (U) 6.0 [pH] 5.0 - 8.0 [facility] Urine sediment bacteria coun t by microscopy (number/high power field)Ordered By: Robbi Hopkins on 09-04-2023 Bacteria LM.HPF (Urine sed) [#/Area] 1 /[HPF] None Seen [facility] Urine specific gravity measu rementOrdered By: Robbi Hopkins on 09-04-2023 Specific gravity (U) [Rel density] 1.020 1.002-1.03 0 [facility] Urobilinogen Auto test strip Ql (U)Ordered By: Robbi Hopkins on 09-04-2023 Urobilinogen Ql (U) Normal mg/dl Normal [facility] No Panel InformationOrdered By: Faisal Barth on 08-31-2023 Prostate Specific Antigen Total 18.80 ng/mL 0.0-4.0 [facility] Comment on above: This test was perfor med using the TPSA assay method for theDimension chemistry system. Values obtained with differentassay methods cannot be used interchangably.When changing PSA assays in the course of monitoring apatient, additional sequential testing should be carriedout to confirm baseline values. Basophil percentageOrdered B y: Cynthia Bowen on 07-20-2023 Chloride [Moles/Vol] 106 mmol/L 98-107 [facility] Glucose [Mass/Vol] 114 mg/dL 74-106 [facility] Comment on above: Fasting Glucose resu lt from 100 to 125 mg/dL suggests IMPAIRED HOMEOSTASIS per A.D.A. criteria. Potassium [Moles/Vol] 4.1 mmol/L 3.5-5.1 [facility] Sodium [Moles/Vol] 139 mmol/L 136-145 [facility] Laboratory - Chemistry and C hemistry - challengeOrdered By: Cynthia Bowen on 07-20-2023 CO2 [Moles/Vol] 30.0 mmol/L 21.0-32.0 [facility] Urea nitrogen/Creatinine [Mass ratio] 16.6 mg/mg 10-20 [facility] No Panel InformationOrdered By: Cynthia Bowen on 07-20-2023 Estimated GFR (MDRD) Amer 95 mL/min >60 [facility] Comment on above: GFR Calc Estimated GFR (MDRD) Non-Af Amer 78 mL/min >60 [facility] Comment on above: Non- GFR Calc Serum or plasma calcium alfonso urement (mass/volume)Ordered By: Cynthia Bowen on 07-20-2023 Calcium [Mass/Vol] 8.5 mg/dL 8.5-10.1 [facility] Serum or plasma creatinine m easurement (mass/volume)Ordered By: Cynthia Bowen on 07-20-2023 Creatinine [Mass/Vol] 0.97 mg/dL 0.70-1.30 [facility] Comment on above: The validity of the calculated GFR & GFRAA in patients over 70 years has not been determined. Clinical correlation is essential. Serum or plasma urea nitroge n measurement (mass/volume)Ordered By: Cynthia Bowen on 07-20-2023 Urea nitrogen [Mass/Vol] 16 mg/dL 7-18 [facility] Thin prep Papanicolaou smear with manual screeningOrdered By: Cynthia Bowen on 07-20-2023 Thin prep Papanicolaou smear with manual screening 3 5-15 [facility] Basophil percentageOrdered B y: Cynthia Bowen on 07-09-2023 Chloride [Moles/Vol] 106 mmol/L 98-107 [facility] Glucose [Mass/Vol] 111 mg/dL 74-106 [facility] Comment on above: Fasting Glucose resu lt from 100 to 125 mg/dL suggests IMPAIRED HOMEOSTASIS per A.D.A. criteria. Potassium [Moles/Vol] 4.0 mmol/L 3.5-5.1 [facility] Sodium [Moles/Vol] 139 mmol/L 136-145 [facility] WBC (Bld) [#/Vol] 6.8 10*3/uL 4.4-11.0 [facility] Blood erythrocytes count (nu mber/volume)Ordered By: Cynthia Bowen on 07-09-2023 RBC (Bld) [#/Vol] 4.37 10*6/uL 4.6-6.2 [facility] Blood hemoglobin measurement (mass/volume)Ordered By: Cynthia Bowen on 07-09-2023 Hemoglobin (Bld) [Mass/Vol] 12.8 g/dL 13.0-16.5 [facility] Blood platelet mean volumeOr dered By: Cynthia Bowen on 07-09-2023 Platelet mean volume (Bld) [Entitic vol] 11.2 fL 6.2-12.0 [facility] Determination of erythrocyte mean corpuscular volume (MCV)Ordered By: Cynthia Bowen on 07-09-2023 MCV (RBC) [Entitic vol] 91.1 fL 80-94 [facility] Hematocrit Auto (Bld) [Volum e fraction]Ordered By: Cynthia Bowen on 07-09-2023 Hematocrit (Bld) [Volume fraction] 39.8 % 40-54 [facility] Laboratory - Chemistry and C hemistry - challengeOrdered By: Cynthia Bowen on 07-09-2023 CO2 [Moles/Vol] 28.0 mmol/L 21.0-32.0 [facility] Natriuretic peptide B (Bld) [Mass/Vol] 157.6 pg/mL 0-100 [facility] Urea nitrogen/Creatinine [Mass ratio] 25.1 mg/mg 10-20 [facility] Laboratory - Hematology and Cell countsOrdered By: Cynthia Bowen on 07-09-2023 Erythrocyte distribution width (RBC) [Entitic vol] 45.5 fL 35.1-43.9 [facility] Erythrocyte distribution width (RBC) [Ratio] 13.5 % 11.6-14.6 [facility] MCH (RBC) [Entitic mass] 29.3 pg 27.0-32.0 [facility] MCHC Auto (RBC) [Mass/Vol]Or dered By: Cynthia Bowen on 07-09-2023 MCHC (RBC) [Mass/Vol] 32.2 g/dL 32-36 [facility] No Panel InformationOrdered By: Cynthia Bowen on 07-09-2023 Estimated GFR (MDRD) Amer 111 mL/min >60 [facility] Comment on above: GFR Calc Estimated GFR (MDRD) Non-Af Amer 92 mL/min >60 [facility] Comment on above: Non- GFR Calc Thyroid Stimulating Hormone (TSH) 0.79 uIU/mL 0.358-3.74 [facility] Platelets bldOrdered By: Carlos Bowen on 07-09-2023 Platelets (Bld) [#/Vol] 174 10*3/uL 150-450 [facility] Serum or plasma calcium alfonso urement (mass/volume)Ordered By: Cynthia Bowen on 07-09-2023 Calcium [Mass/Vol] 9.1 mg/dL 8.5-10.1 [facility] Serum or plasma creatinine m easurement (mass/volume)Ordered By: Cynthia Bowen on 07-09-2023 Creatinine [Mass/Vol] 0.84 mg/dL 0.70-1.30 [facility] Comment on above: The validity of the calculated GFR & GFRAA in patients over 70 years has not been determined. Clinical correlation is essential. Serum or plasma urea nitroge n measurement (mass/volume)Ordered By: Cynthia Bowen on 07-09-2023 Urea nitrogen [Mass/Vol] 21 mg/dL 7-18 [facility] Thin prep Papanicolaou smear with manual screeningOrdered By: Cynthia Bowen on 07-09-2023 Thin prep Papanicolaou smear with manual screening 5 5-15 [facility] Absolute lymphocyte countOrd ered By: Dr. Mckeon on 03-26-2023 Lymphocytes Auto (Unsp spec) [#/Vol] 1.89 10*3/uL 0.83-4.51 [facility] Basophil percentageOrdered B y: Dr. Mckeon on 03-26-2023 Basophils/100 WBC (Bld) 0.3 % 0-1 [facility] Bilirubin [Mass/Vol] 1.10 mg/dL 0.20-1.00 [facility] Comment on above: For patients on eltr ombopag therapy, use of Dimension [place] TBIL is not recommended. Chloride [Moles/Vol] 104 mmol/L 98-107 [facility] Eosinophils/100 WBC (Bld) 0.4 % 0-5 [facility] Glucose [Mass/Vol] 113 mg/dL 74-106 [facility] Comment on above: Fasting Glucose resu lt from 100 to 125 mg/dL suggests IMPAIRED HOMEOSTASIS per A.D.A. criteria. Neutrophils (Bld) [#/Vol] 8.9 10*3/uL 2.0-7.7 [facility] Neutrophils/100 WBC (Bld) 72.9 % 47-70 [facility] Potassium [Moles/Vol] 4.1 mmol/L 3.5-5.1 [facility] Protein [Mass/Vol] 7.4 g/dL 6.4-8.2 [facility] Sodium [Moles/Vol] 138 mmol/L 136-145 [facility] WBC (Bld) [#/Vol] 12.2 10*3/uL 4.4-11.0 [facility] Blood erythrocytes count (nu mber/volume)Ordered By: Dr. Mckeon on 03-26-2023 RBC (Bld) [#/Vol] 4.04 10*6/uL 4.6-6.2 [facility] Blood hemoglobin measurement (mass/volume)Ordered By: Dr. Mckeon on 03-26-2023 Hemoglobin (Bld) [Mass/Vol] 12.1 g/dL 13.0-16.5 [facility] Blood lymphocytes/100 leukoc ytesOrdered By: Dr. Mckeon on 03-26-2023 Lymphocytes/100 WBC (Bld) 15.6 % 19-41 [facility] Blood monocytes/100 leukocyt esOrdered By: Dr. Mckeon on 03-26-2023 Monocytes/100 WBC (Bld) 10.6 % 0-10 [facility] Blood platelet mean volumeOr dered By: Dr. Mckeon on 03-26-2023 Platelet mean volume (Bld) [Entitic vol] 11.2 fL 6.2-12.0 [facility] Determination of erythrocyte mean corpuscular volume (MCV)Ordered By: Dr. Mckeon on 03-26-2023 MCV (RBC) [Entitic vol] 92.8 fL 80-94 [facility] Hematocrit Auto (Bld) [Volum e fraction]Ordered By: Dr. Mckeon on 03-26-2023 Hematocrit (Bld) [Volume fraction] 37.5 % 40-54 [facility] Laboratory - Chemistry and C hemistry - challengeOrdered By: Dr. Mckeon on 03-26-2023 ALP [Catalytic activity/Vol] 65 U/L 45-117 [facility] ALT [Catalytic activity/Vol] 16 U/L 16-61 [facility] CO2 [Moles/Vol] 28.0 mmol/L 21.0-32.0 [facility] Globulin (S) [Mass/Vol] 3.8 g/dL 2.2-4.2 [facility] Urea nitrogen/Creatinine [Mass ratio] 14.3 mg/mg 10-20 [facility] Laboratory - Hematology and Cell countsOrdered By: Dr. Mckeon on 03-26-2023 Erythrocyte distribution width (RBC) [Entitic vol] 49.5 fL 35.1-43.9 [facility] Erythrocyte distribution width (RBC) [Ratio] 14.4 % 11.6-14.6 [facility] Immature granulocytes/100 WBC (Bld) 0.200 % 0.0-0.9 [facility] Comment on above: IG% - Immature Granu locytes (promyelocytes, myelocytes and metamyelocytes) > 1% indicates that a LEFT SHIFT is Present. MCH (RBC) [Entitic mass] 30.0 pg 27.0-32.0 [facility] Nucleated RBC/100 WBC (Bld) [Ratio] 0 % 0-5 [facility] MCHC Auto (RBC) [Mass/Vol]Or dered By: Dr. Mckeon on 03-26-2023 MCHC (RBC) [Mass/Vol] 32.3 g/dL 32-36 [facility] No Panel InformationOrdered By: Dr. Mckeon on 03-26-2023 CA 19-9 Antigen 7 U/mL 0-35 [facility] Comment on above: [employer] El ectrochemiluminescence Immunoassay(ECLIA)Values obtained with different assay methods or kits cannotbe used interchangeably. Results cannot be interpreted asabsolute evidence of the presence or absence of malignantdisease.Performed at: [facility] [employer] [id number] Director: Toi Ponce PhD, Phone: [phone] Estimated GFR (MDRD) Amer 93 mL/min >60 [facility] Comment on above: GFR Calc Estimated GFR (MDRD) Non-Af Amer 77 mL/min >60 [facility] Comment on above: Non- GFR Calc Platelets bldOrdered By: Dr. Mckeon on 03-26-2023 Platelets (Bld) [#/Vol] 224 10*3/uL 150-450 [facility] Serum or plasma C reactive p rotein measurement (mass/volume)Ordered By: Dr. Mckeon on 03-26-2023 CRP [Mass/Vol] 39.50 mg/L 0.0-3.0 [facility] Comment on above: C-Reactive Protein ( CRP) provides useful information for thediagnosis, therapy and monitoring of inflammatory processesand associated diseases. For the evaluation of Relative Riskfor Cardiovascular Disease, a High Sensitivity CRP (HSCRP)should be ordered. Serum or plasma albumin alfonso urement (mass/volume)Ordered By: Dr. Mckeon on 03-26-2023 Albumin [Mass/Vol] 3.6 g/dL 3.2-5.0 [facility] Serum or plasma albumin/glob ulin mass ratioOrdered By: Dr. Mckeon on 03-26-2023 Albumin/Globulin [Mass ratio] 0.9 {ratio} 0.9-2.4 [facility] Serum or plasma calcium alfonso urement (mass/volume)Ordered By: Dr. Mckeon on 03-26-2023 Calcium [Mass/Vol] 8.6 mg/dL 8.5-10.1 [facility] Serum or plasma carcinoembry onic antigen measurement (mass/volume)Ordered By: Dr. Mckeon on 03-26-2023 Carcinoembryonic Ag [Mass/Vol] 0.7 ng/mL 0.0-4.7 [facility] Comment on above: Nonsmokers <3.9 Smok ers <5.6[employer] Electrochemiluminescence Immunoassay(ECLIA)Values obtained with different assay methods or kitscannot be used interchangeably. Results cannot beinterpreted as absolute evidence of the presence orabsence of malignant disease. Serum or plasma creatinine m easurement (mass/volume)Ordered By: Dr. Mckeon on 03-26-2023 Creatinine [Mass/Vol] 0.98 mg/dL 0.70-1.30 [facility] Comment on above: The validity of the calculated GFR & GFRAA in patients over 70 years has not been determined. Clinical correlation is essential. Serum or plasma urea nitroge n measurement (mass/volume)Ordered By: Dr. Mckeon on 03-26-2023 Urea nitrogen [Mass/Vol] 14 mg/dL 7-18 [facility] Thin prep Papanicolaou smear with manual screeningOrdered By: Dr. Mckeon on 03-26-2023 Thin prep Papanicolaou smear with manual screening 17 U/L 15-37 [facility] Thin prep Papanicolaou smear with manual screening 6 5-15 [facility] Absolute lymphocyte countOrd ered By: Dr. Villarreal on 01-06-2023 Lymphocytes Auto (Unsp spec) [#/Vol] 1.31 10*3/uL 0.83-4.51 [facility] Basophil percentageOrdered B y: Dr. Villarreal on 01-06-2023 Basophils/100 WBC (Bld) 0.3 % 0-1 [facility] Chloride [Moles/Vol] 108 mmol/L 98-107 [facility] Eosinophils/100 WBC (Bld) 1.2 % 0-5 [facility] Glucose [Mass/Vol] 123 mg/dL 74-106 [facility] Comment on above: Fasting Glucose resu lt from 100 to 125 mg/dL suggests IMPAIRED HOMEOSTASIS per A.D.A. criteria. Neutrophils (Bld) [#/Vol] 9.1 10*3/uL 2.0-7.7 [facility] Neutrophils/100 WBC (Bld) 74.2 % 47-70 [facility] Potassium [Moles/Vol] 3.7 mmol/L 3.5-5.1 [facility] Sodium [Moles/Vol] 139 mmol/L 136-145 [facility] WBC (Bld) [#/Vol] 12.2 10*3/uL 4.4-11.0 [facility] Blood erythrocytes count (nu mber/volume)Ordered By: Dr. Villarreal on 01-06-2023 RBC (Bld) [#/Vol] 3.97 10*6/uL 4.6-6.2 [facility] Blood hemoglobin measurement (mass/volume)Ordered By: Dr. Villarreal on 01-06-2023 Hemoglobin (Bld) [Mass/Vol] 11.9 g/dL 13.0-16.5 [facility] Blood lymphocytes/100 leukoc ytesOrdered By: Dr. Villarreal on 01-06-2023 Lymphocytes/100 WBC (Bld) 10.7 % 19-41 [facility] Blood manual differential co mment interpretation (narrative result)Ordered By: Dr. Villarreal on 01-06-2023 Manual differential comment Liang (Bld) [Interp] SCANNED [facility] Blood monocytes/100 leukocyt esOrdered By: Dr. Villarreal on 01-06-2023 Monocytes/100 WBC (Bld) 13.4 % 0-10 [facility] Blood platelet mean volumeOr dered By: Dr. Villarreal on 01-06-2023 Platelet mean volume (Bld) [Entitic vol] 10.8 fL 6.2-12.0 [facility] Determination of erythrocyte mean corpuscular volume (MCV)Ordered By: Dr. Villarreal on 01-06-2023 MCV (RBC) [Entitic vol] 91.9 fL 80-94 [facility] Hematocrit Auto (Bld) [Volum e fraction]Ordered By: Dr. Villarreal on 01-06-2023 Hematocrit (Bld) [Volume fraction] 36.5 % 40-54 [facility] Laboratory - Chemistry and C hemistry - challengeOrdered By: Dr. Villarreal on 01-06-2023 CO2 [Moles/Vol] 26.0 mmol/L 21.0-32.0 [facility] Urea nitrogen/Creatinine [Mass ratio] 11.6 mg/mg 10-20 [facility] Laboratory - Hematology and Cell countsOrdered By: Dr. Villarreal on 01-06-2023 Erythrocyte distribution width (RBC) [Entitic vol] 48.6 fL 35.1-43.9 [facility] Erythrocyte distribution width (RBC) [Ratio] 14.4 % 11.6-14.6 [facility] Immature granulocytes/100 WBC (Bld) 0.200 % 0.0-0.9 [facility] Comment on above: IG% - Immature Granu locytes (promyelocytes, myelocytes and metamyelocytes) > 1% indicates that a LEFT SHIFT is Present. MCH (RBC) [Entitic mass] 30.0 pg 27.0-32.0 [facility] Nucleated RBC/100 WBC (Bld) [[facility]] 0 % [facility] [Mass/Vol]Or dered By: Dr. Villarreal on 01-06-2023 MCHC (RBC) [Mass/Vol] 32.6 g/dL 32-36 [facility] No Panel InformationOrdered By: Dr. Villarreal on 01-06-2023 Estimated Creatinine Clearance Calc 46.20 ml/min [facility] Estimated GFR (MDRD) Amer 108 mL/min >60 [facility] Comment on above: GFR Calc Estimated GFR (MDRD) Non-Af Amer 89 mL/min >60 [facility] Comment on above: Non- GFR Calc Platelets bldOrdered By: Dr. Villarreal on 01-06-2023 Platelets (Bld) [#/Vol] 225 10*3/uL 150-450 [facility] Review by pathologistOrdered By: Dr. Villarreal on 01-06-2023 Pathologist review Liang (Unsp spec) [Interp] Reviewed [facility] Comment on above: Previous reported re sult: Sonia anthony Edited by: RGOOD on 01/07/23:1327Neutrophilic leukocytosis.Clinical correlation necessary.Eddi Swartz M.D. 01/07/23 AMENDED REPORT 01/07/23 1327 PATH REV previously reported as: Sonia anthony Serum or plasma calcium alfonso urement (mass/volume)Ordered By: Dr. Villarreal on 01-06-2023 Calcium [Mass/Vol] 8.3 mg/dL 8.5-10.1 [facility] Serum or plasma creatinine m easurement (mass/volume)Ordered By: Dr. Villarreal on 01-06-2023 Creatinine [Mass/Vol] 0.86 mg/dL 0.70-1.30 [facility] Comment on above: The validity of the calculated GFR & GFRAA in patients over 70 years has not been determined. Clinical correlation is essential. Serum or plasma urea nitroge n measurement (mass/volume)Ordered By: Dr. Villarreal on 01-06-2023 Urea nitrogen [Mass/Vol] 10 mg/dL 7-18 [facility] Thin prep Papanicolaou smear with manual screeningOrdered By: Dr. Villarreal on 01-06-2023 Thin prep Papanicolaou smear with manual screening 5 5-15 [facility] Absolute lymphocyte countOrd ered By: Dr. Morgan on 12-27-2022 Lymphocytes Auto (Unsp spec) [#/Vol] 1.73 10*3/uL 0.83-4.51 [facility] Basophil percentageOrdered B y: Dr. Morgan on 12-27-2022 Basophil percentage 0-5 SEEN /hpf 0-5 [facility] Basophils/100 WBC (Bld) 0.5 % 0-1 [facility] Bilirubin [Mass/Vol] 2.10 mg/dL 0.20-1.00 [facility] Comment on above: For patients on eltr ombopag therapy, use of Dimension [place] TBIL is not recommended. Chloride [Moles/Vol] 102 mmol/L 98-107 [facility] Eosinophils/100 WBC (Bld) 1.0 % 0-5 [facility] Glucose [Mass/Vol] 135 mg/dL 74-106 [facility] Comment on above: Fasting Glucose resu lt greater than or equal to 126 mg/dL suggests DIABETES MELLITUS per A.D.A. criteria. Neutrophils (Bld) [#/Vol] 7.5 10*3/uL 2.0-7.7 [facility] Neutrophils/100 WBC (Bld) 69.5 % 47-70 [facility] Potassium [Moles/Vol] 3.4 mmol/L 3.5-5.1 [facility] Protein [Mass/Vol] 7.6 g/dL 6.4-8.2 [facility] Sodium [Moles/Vol] 139 mmol/L 136-145 [facility] WBC (Bld) [#/Vol] 10.8 10*3/uL 4.4-11.0 [facility] Bilirubin Test strip Ql (U)O rdered By: Dr. Morgan on 12-27-2022 Bilirubin Ql (U) Negative Negative [facility] Blood erythrocytes count (nu mber/volume)Ordered By: Dr. Morgan on 12-27-2022 RBC (Bld) [#/Vol] 4.29 10*6/uL 4.6-6.2 [facility] Blood hemoglobin measurement (mass/volume)Ordered By: Dr. Morgan on 12-27-2022 Hemoglobin (Bld) [Mass/Vol] 12.8 g/dL 13.0-16.5 [facility] Blood lymphocytes/100 leukoc ytesOrdered By: Dr. Morgan on 12-27-2022 Lymphocytes/100 WBC (Bld) 16.0 % 19-41 [facility] Blood monocytes/100 leukocyt esOrdered By: Dr. Morgan on 12-27-2022 Monocytes/100 WBC (Bld) 12.6 % 0-10 [facility] Blood platelet mean volumeOr dered By: Dr. Morgan on 12-27-2022 Platelet mean volume (Bld) [Entitic vol] 11.6 fL 6.2-12.0 [facility] Determination of erythrocyte mean corpuscular volume (MCV)Ordered By: Dr. Morgan on 12-27-2022 MCV (RBC) [Entitic vol] 91.4 fL 80-94 [facility] Hematocrit Auto (Bld) [Volum e fraction]Ordered By: Dr. Mrogan on 12-27-2022 Hematocrit (Bld) [Volume fraction] 39.2 % 40-54 [facility] Ketones Test strip Ql (U)Ord ered By: Dr. Morgan on 12-27-2022 Ketones Ql (U) Negative Negative [facility] Laboratory - Chemistry and C hemistry - challengeOrdered By: Dr. Morgan on 12-27-2022 ALP [Catalytic activity/Vol] 68 U/L 45-117 [facility] ALT [Catalytic activity/Vol] 11 U/L 16-61 [facility] CO2 [Moles/Vol] 30.0 mmol/L 21.0-32.0 [facility] Globulin (S) [Mass/Vol] 3.7 g/dL 2.2-4.2 [facility] Urea nitrogen/Creatinine [Mass ratio] 11.9 mg/mg 10-20 [facility] Laboratory - Hematology and Cell countsOrdered By: Dr. Morgan on 12-27-2022 Erythrocyte distribution width (RBC) [Entitic vol] 46.6 fL 35.1-43.9 [facility] Erythrocyte distribution width (RBC) [Ratio] 14.0 % 11.6-14.6 [facility] Immature granulocytes/100 WBC (Bld) 0.400 % 0.0-0.9 [facility] Comment on above: IG% - Immature Granu locytes (promyelocytes, myelocytes and metamyelocytes) > 1% indicates that a LEFT SHIFT is Present. MCH (RBC) [Entitic mass] 29.8 pg 27.0-32.0 [facility] Nucleated RBC/100 WBC (Bld) [Ratio] 0 % 0-5 [facility] MCHC Auto (RBC) [Mass/Vol]Or dered By: Dr. Morgan on 12-27-2022 MCHC (RBC) [Mass/Vol] 32.7 g/dL 32-36 [facility] Mucus LM Ql (Urine sed)Order ed By: Dr. Morgan on 12-27-2022 Mucus Ql (Urine sed) 0 SEEN /hpf [facility] Nitrite Test strip Ql (U)Ord ered By: Dr. Morgan on 12-27-2022 Nitrite Ql (U) Negative Negative [facility] No Panel InformationOrdered By: Dr. Morgan on 12-27-2022 Estimated Creatinine Clearance Calc 42.47 ml/min [facility] Estimated GFR (MDRD) Amer 99 mL/min >60 [facility] Comment on above: GFR Calc Estimated GFR (MDRD) Non-Af Amer 82 mL/min >60 [facility] Comment on above: Non- GFR Calc Platelets bldOrdered By: Dr. Morgan on 12-27-2022 Platelets (Bld) [#/Vol] 195 10*3/uL 150-450 [facility] Protein Test strip Ql (U)Ord ered By: Dr. Morgan on 12-27-2022 Protein Ql (U) 15 mg/dl Negative [facility] Serum or plasma albumin alfonso urement (mass/volume)Ordered By: Dr. Morgan on 12-27-2022 Albumin [Mass/Vol] 3.9 g/dL 3.2-5.0 [facility] Serum or plasma albumin/glob ulin mass ratioOrdered By: Dr. Morgan on 12-27-2022 Albumin/Globulin [Mass ratio] 1.1 {ratio} 0.9-2.4 [facility] Serum or plasma calcium alfonso urement (mass/volume)Ordered By: Dr. Morgan on 12-27-2022 Calcium [Mass/Vol] 8.9 mg/dL 8.5-10.1 [facility] Serum or plasma creatinine m easurement (mass/volume)Ordered By: Dr. Morgan on 12-27-2022 Creatinine [Mass/Vol] 0.93 mg/dL 0.70-1.30 [facility] Comment on above: The validity of the calculated GFR & GFRAA in patients over 70 years has not been determined. Clinical correlation is essential. Serum or plasma urea nitroge n measurement (mass/volume)Ordered By: Dr. Morgan on 12-27-2022 Urea nitrogen [Mass/Vol] 11 mg/dL 7-18 [facility] Squamous epithelial cells de tection in urine sediment by light microscopyOrdered By: Dr. Morgan on 12-27-2022 Epithelial cells.squamous LM Ql (Urine sed) 0-5 SEEN /hpf 0-5 [facility] Thin prep Papanicolaou smear with manual screeningOrdered By: Dr. Morgan on 12-27-2022 Thin prep Papanicolaou smear with manual screening 8 U/L 15-37 [facility] Thin prep Papanicolaou smear with manual screening 7 5-15 [facility] Urine blood detectionOrdered By: Dr. Morgan on 12-27-2022 RBC Ql (U) Negative Negative [facility] RBC Ql (U) 0 SEEN /hpf 0-5 [facility] Urine clarityOrdered By: Dr. Morgan on 12-27-2022 Clarity (U) Sl. Cloudy Clear [facility] Urine color determinationOrd ered By: Dr. Morgan on 12-27-2022 Color (U) Yellow Yellow [facility] Urine glucose detectionOrder ed By: Dr. Morgan on 12-27-2022 Glucose Ql (U) Normal mg/dl Normal [facility] Urine leukocyte esterase det ection by dipstickOrdered By: Dr. Morgan on 12-27-2022 Leukocyte esterase Test strip Ql (U) 25 /ul Negative [facility] Urine pHOrdered By: Dr. Meme holcomb on 12-27-2022 pH (U) 7.0 [pH] 5.0 - 8.0 [facility] Urine sediment bacteria coun t by microscopy (number/high power field)Ordered By: Dr. Morgan on 12-27-2022 Bacteria LM.HPF (Urine sed) [#/Area] 0 /[HPF] None Seen [facility] Urine specific gravity measu rementOrdered By: Dr. Morgan on 12-27-2022 Specific gravity (U) [Rel density] 1.010 1.002-1.03 0 [facility] Urobilinogen Auto test strip Ql (U)Ordered By: Dr. Morgan on 12-27-2022 Urobilinogen Ql (U) Normal mg/dl Normal [facility] Basophil percentageOrdered B y: Dr. Barth on 10-12-2022 Chloride [Moles/Vol] 105 mmol/L 98-107 [facility] Glucose [Mass/Vol] 187 mg/dL 74-106 [facility] Comment on above: Fasting Glucose resu lt greater than or equal to 126 mg/dL suggests DIABETES MELLITUS per A.D.A. criteria. Potassium [Moles/Vol] 3.8 mmol/L 3.5-5.1 [facility] Sodium [Moles/Vol] 139 mmol/L 136-145 [facility] WBC (Bld) [#/Vol] 7.0 10*3/uL 4.4-11.0 [facility] Blood erythrocytes count (nu mber/volume)Ordered By: Dr. Barth on 10-12-2022 RBC (Bld) [#/Vol] 4.22 10*6/uL 4.6-6.2 [facility] Blood hemoglobin measurement (mass/volume)Ordered By: Dr. Barth on 10-12-2022 Hemoglobin (Bld) [Mass/Vol] 12.9 g/dL 13.0-16.5 [facility] Blood platelet mean volumeOr dered By: Dr. Barth on 10-12-2022 Platelet mean volume (Bld) [Entitic vol] 11.9 fL 6.2-12.0 [facility] Determination of erythrocyte mean corpuscular volume (MCV)Ordered By: Dr. Barth on 10-12-2022 MCV (RBC) [Entitic vol] 92.7 fL 80-94 [facility] Hematocrit Auto (Bld) [Volum e fraction]Ordered By: Dr. Barth on 10-12-2022 Hematocrit (Bld) [Volume fraction] 39.1 % 40-54 [facility] Laboratory - Chemistry and C hemistry - challengeOrdered By: Dr. Barth on 10-12-2022 CO2 [Moles/Vol] 30.0 mmol/L 21.0-32.0 [facility] Urea nitrogen/Creatinine [Mass ratio] 9.9 mg/mg 10-20 [facility] Laboratory - Hematology and Cell countsOrdered By: Dr. Barth on 10-12-2022 Erythrocyte distribution width (RBC) [Entitic vol] 47.6 fL 35.1-43.9 [facility] Erythrocyte distribution width (RBC) [Ratio] 13.9 % 11.6-14.6 [facility] MCH (RBC) [Entitic mass] 30.6 pg 27.0-32.0 [facility] MCHC Auto (RBC) [Mass/Vol]Or dered By: Dr. Barth on 10-12-2022 MCHC (RBC) [Mass/Vol] 33.0 g/dL 32-36 [facility] No Panel InformationOrdered By: Dr. Barth on 10-12-2022 Estimated GFR (MDRD) Amer 90 mL/min >60 [facility] Comment on above: GFR Calc Estimated GFR (MDRD) Non-Af Amer 74 mL/min >60 [facility] Comment on above: Non- GFR Calc Platelets bldOrdered By: Dr. Barth on 10-12-2022 Platelets (Bld) [#/Vol] 200 10*3/uL 150-450 [facility] Serum or plasma calcium alfonso urement (mass/volume)Ordered By: Dr. Barth on 10-12-2022 Calcium [Mass/Vol] 8.9 mg/dL 8.5-10.1 [facility] Serum or plasma creatinine m easurement (mass/volume)Ordered By: Dr. Barth on 10-12-2022 Creatinine [Mass/Vol] 1.01 mg/dL 0.70-1.30 [facility] Comment on above: The validity of the calculated GFR & GFRAA in patients over 70 years has not been determined. Clinical correlation is essential. Serum or plasma urea nitroge n measurement (mass/volume)Ordered By: Dr. Barth on 10-12-2022 Urea nitrogen [Mass/Vol] 10 mg/dL 7-18 [facility] Thin prep Papanicolaou smear with manual screeningOrdered By: Dr. Barth on 10-12-2022 Thin prep Papanicolaou smear with manual screening 4 5-15 [facility] Basophil percentageon 2021 Chloride [Moles/Vol] 105 mmol/L 98-107 [facility] Work Phone: Glucose [Mass/Vol] 104 mg/dL 74-106 [facility] Work Phone: Comment on above: Fasting Glucose resu lt from 100 to 125 mg/dL suggests IMPAIRED HOMEOSTASIS per A.D.A. criteria. Potassium [Moles/Vol] 4.1 mmol/L 3.5-5.1 [facility] Work Phone: Sodium [Moles/Vol] 139 mmol/L 136-145 [facility] Work Phone: WBC (Bld) [#/Vol] 5.7 10*3/uL 4.4-11.0 [facility] Work Phone: Blood erythrocytes count (nu mber/volume)on 06-03-2022 RBC (Bld) [#/Vol] 3.87 10*6/uL 4.6-6.2 [facility] Work Phone: Blood hemoglobin measurement (mass/volume)on 06-03-2022 Hemoglobin (Bld) [Mass/Vol] 11.8 g/dL 13.0-16.5 [facility] Work Phone: Blood platelet mean volumeon 06-03-2022 Platelet mean volume (Bld) [Entitic vol] 11.2 fL 6.2-12.0 [facility] Work Phone: Determination of erythrocyte mean corpuscular volume (MCV)on 06-03-2022 MCV (RBC) [Entitic vol] 90.4 fL 80-94 [facility] Work Phone: Hematocrit Auto (Bld) [Volum e fraction]on 06-03-2022 Hematocrit (Bld) [Volume fraction] 35.0 % 40-54 [facility] Work Phone: Laboratory - Chemistry and C hemistry - challengeon 06-03-2022 CO2 [Moles/Vol] 28.0 mmol/L 21.0-32.0 [facility] Work Phone: Urea nitrogen/Creatinine [Mass ratio] 15.9 mg/mg 10-20 [facility] Work Phone: Laboratory - Hematology and Cell countson 06-03-2022 Erythrocyte distribution width (RBC) [Entitic vol] 47.1 fL 35.1-43.9 [facility] Work Phone: Erythrocyte distribution width (RBC) [Ratio] 14.3 % 11.6-14.6 [facility] Work Phone: MCH (RBC) [Entitic mass] 30.5 pg 27.0-32.0 [facility] Work Phone: MCHC Auto (RBC) [Mass/Vol]on 06-03-2022 MCHC (RBC) [Mass/Vol] 33.7 g/dL 32-36 [facility] Work Phone: No Panel Informationon 06-03 Estimated GFR (MDRD) Amer 84 mL/min >60 [facility] Work Phone: Comment on above: GFR Calc Estimated GFR (MDRD) Non-Af Amer 70 mL/min >60 [facility] Work Phone: Comment on above: Non- GFR Calc Platelets bldon 06-03-2022 Platelets (Bld) [#/Vol] 180 10*3/uL 150-450 [facility] Work Phone: Serum or plasma calcium alfonso urement (mass/volume)on 06-03-2022 Calcium [Mass/Vol] 9.1 mg/dL 8.5-10.1 [facility] Work Phone: Serum or plasma creatinine m easurement (mass/volume)on 06-03-2022 Creatinine [Mass/Vol] 1.07 mg/dL 0.70-1.30 [facility] Work Phone: Comment on above: The validity of the calculated GFR & GFRAA in patients over 70 years has not been determined. Clinical correlation is essential. Serum or plasma urea nitroge n measurement (mass/volume)on 06-03-2022 Urea nitrogen [Mass/Vol] 17 mg/dL 7-18 [facility] Work Phone: Thin prep Papanicolaou smear with manual screeningon 06-03-2022 Thin prep Papanicolaou smear with manual screening 6 5-15 [facility] Work Phone: Absolute lymphocyte counton 03-05-2022 Lymphocytes Auto (Unsp spec) [#/Vol] 2.16 10*3/uL 0.83-4.51 [facility] Work Phone: Basophil percentageon 2021 Basophils/100 WBC (Bld) 0.6 % 0-1 [facility] Work Phone: Chloride [Moles/Vol] 103 mmol/L 98-107 [facility] Work Phone: Eosinophils/100 WBC (Bld) 5.9 % 0-5 [facility] Work Phone: Glucose [Mass/Vol] 110 mg/dL 74-106 [facility] Work Phone: Comment on above: Fasting Glucose resu lt from 100 to 125 mg/dL suggests IMPAIRED HOMEOSTASIS per A.D.A. criteria. Neutrophils (Bld) [#/Vol] 3.8 10*3/uL 2.0-7.7 [facility] Work Phone: Neutrophils/100 WBC (Bld) 54.3 % 47-70 [facility] Work Phone: Potassium [Moles/Vol] 3.6 mmol/L 3.5-5.1 [facility] Work Phone: Sodium [Moles/Vol] 139 mmol/L 136-145 [facility] Work Phone: WBC (Bld) [#/Vol] 6.9 10*3/uL 4.4-11.0 [facility] Work Phone: Blood erythrocytes count (nu mber/volume)on 03-05-2022 RBC (Bld) [#/Vol] 3.99 10*6/uL 4.6-6.2 [facility] Work Phone: Blood hemoglobin measurement (mass/volume)on 03-05-2022 Hemoglobin (Bld) [Mass/Vol] 11.9 g/dL 13.0-16.5 [facility] Work Phone: Blood lymphocytes/100 leukoc yteson 03-05-2022 Lymphocytes/100 WBC (Bld) 31.1 % 19-41 [facility] Work Phone: Blood monocytes/100 leukocyt eson 03-05-2022 Monocytes/100 WBC (Bld) 7.8 % 0-10 [facility] Work Phone: Blood platelet mean volumeon 03-05-2022 Platelet mean volume (Bld) [Entitic vol] 11.5 fL 6.2-12.0 [facility] Work Phone: Determination of erythrocyte mean corpuscular volume (MCV)on 03-05-2022 MCV (RBC) [Entitic vol] 92.0 fL 80-94 [facility] Work Phone: Hematocrit Auto (Bld) [Volum e fraction]on 03-05-2022 Hematocrit (Bld) [Volume fraction] 36.7 % 40-54 [facility] Work Phone: Laboratory - Chemistry and C hemistry - challengeon 03-05-2022 CO2 [Moles/Vol] 30.0 mmol/L 21.0-32.0 [facility] Work Phone: Natriuretic peptide B (Bld) [Mass/Vol] 225.2 pg/mL 0-100 [facility] Work Phone: Urea nitrogen/Creatinine [Mass ratio] 11.4 mg/mg 10-20 [facility] Work Phone: Laboratory - Hematology and Cell countson 03-05-2022 Erythrocyte distribution width (RBC) [Entitic vol] 48.4 fL 35.1-43.9 [facility] Work Phone: Erythrocyte distribution width (RBC) [Ratio] 14.3 % 11.6-14.6 [facility] Work Phone: Immature granulocytes/100 WBC (Bld) 0.300 % 0.0-0.9 [facility] Work Phone: Comment on above: IG% - Immature Granu locytes (promyelocytes, myelocytes and metamyelocytes) > 1% indicates that a LEFT SHIFT is Present. MCH (RBC) [Entitic mass] 29.8 pg 27.0-32.0 [facility] Work Phone: Nucleated RBC/100 WBC (Bld) [Ratio] 0 % 0-5 [facility] Work Phone: MCHC Auto (RBC) [Mass/Vol]on 03-05-2022 MCHC (RBC) [Mass/Vol] 32.4 g/dL 32-36 [facility] Work Phone: No Panel Informationon 03-05 Estimated GFR (MDRD) Amer 95 mL/min >60 [facility] Work Phone: Comment on above: GFR Calc Estimated GFR (MDRD) Non-Af Amer 79 mL/min >60 [facility] Work Phone: Comment on above: Non- GFR Calc Platelets bldon 03-05-2022 Platelets (Bld) [#/Vol] 199 10*3/uL 150-450 [facility] Work Phone: Serum or plasma calcium alfonso urement (mass/volume)on 03-05-2022 Calcium [Mass/Vol] 8.3 mg/dL 8.5-10.1 [facility] Work Phone: Serum or plasma creatinine m easurement (mass/volume)on 03-05-2022 Creatinine [Mass/Vol] 0.96 mg/dL 0.70-1.30 [facility] Work Phone: Comment on above: The validity of the calculated GFR & GFRAA in patients over 70 years has not been determined. Clinical correlation is essential. Serum or plasma urea nitroge n measurement (mass/volume)on 03-05-2022 Urea nitrogen [Mass/Vol] 11 mg/dL 7-18 [facility] Work Phone: Thin prep Papanicolaou smear with manual screeningon 03-05-2022 Thin prep Papanicolaou smear with manual screening 6 5-15 [facility] Work Phone: No Panel Informationon 02-03 Prostate Specific Antigen Total 13.50 ng/mL 0.0-4.0 [facility] Work Phone: Comment on above: This test was perfor med using the TPSA assay method for [employer] chemistry system. Values obtained with differentassay methods cannot be used interchangably.When changing PSA assays in the course of monitoring apatient, additional sequential testing should be carriedout to confirm baseline values. Absolute lymphocyte counton 10-16-2021 Lymphocytes Auto (Unsp spec) [#/Vol] 2.15 10*3/uL 0.83-4.51 [facility] Work Phone: Basophil percentageon 2020 Chloride [Moles/Vol] 104 mmol/L 98-107 [facility] Work Phone: Eosinophils/100 WBC (Bld) 7.8 % 0-5 [facility] Work Phone: Glucose [Mass/Vol] 104 mg/dL 74-106 [facility] Work Phone: Comment on above: Fasting Glucose resu lt from 100 to 125 mg/dL suggests IMPAIRED HOMEOSTASIS per A.D.A. criteria.Please note revised GLUCOSE reference range effective 2017. Neutrophils (Bld) [#/Vol] 4.4 10*3/uL 2.0-7.7 [facility] Work Phone: Potassium [Moles/Vol] 3.8 mmol/L 3.5-5.1 [facility]: [phone] Sodium [Moles/Vol] 139 mmol/L 136-145 [facility] Work Phone: WBC (Bld) [#/Vol] 7.8 10*3/uL 4.4-11.0 [facility] Work Phone: Blood erythrocytes count (nu mber/volume)on 10-16-2021 RBC (Bld) [#/Vol] 4.17 10*6/uL 4.6-6.2 [facility] Work Phone: Blood hemoglobin measurement (mass/volume)on 10-16-2021 Hemoglobin (Bld) [Mass/Vol] 12.5 g/dL 13.0-16.5 [facility] Work Phone: Blood lymphocytes/100 leukoc yteson 10-16-2021 Lymphocytes/100 WBC (Bld) 27.4 % 19-41 [facility] Work Phone: Blood monocytes/100 leukocyt eson 10-16-2021 Monocytes/100 WBC (Bld) 8.4 % 0-10 [facility] Work Phone: Blood platelet mean volumeon 10-16-2021 Platelet mean volume (Bld) [Entitic vol] 10.8 fL 6.2-12.0 [facility] Work Phone: Determination of erythrocyte mean corpuscular volume (MCV)on 10-16-2021 MCV (RBC) [Entitic vol] 92.1 fL 80-94 [facility] Work Phone: [phone] Hematocrit Auto (Bld) [Volum e fraction]on 10-16-2021 Hematocrit (Bld) [Volume fraction] 38.4 % 40-54 [facility] Work Phone: Laboratory - Chemistry and C hemistry - challengeon 10-16-2021 CO2 [Moles/Vol] 28.0 mmol/L 21.0-32.0 [facility] Work Phone: Urea nitrogen/Creatinine [Mass ratio] 16.6 mg/mg 10-20 [facility] Work Phone: Laboratory - Hematology and Cell countson 10-16-2021 Basophils/100 WBC (Unsp spec) 0.6 % 0-1 [facility] Work Phone: Erythrocyte distribution width (RBC) [Entitic vol] 48.0 fL 35.1-43.9 [facility] Work Phone: [phone] Erythrocyte distribution width (RBC) [Ratio] 14.3 % 11.6-14.6 [facility] Work Phone: Immature granulocytes/100 WBC (Bld) 0.100 % 0.0-0.9 [facility] Work Phone: Comment on above: IG% - Immature Granu locytes (promyelocytes, myelocytes and metamyelocytes) > 1% indicates that a LEFT SHIFT is Present. MCH (RBC) [Entitic mass] 30.0 pg 27.0-32.0 [facility] Work Phone: Neutrophils/100 WBC (Bld) 55.7 % 47-70 [facility] Work Phone: Nucleated RBC/100 WBC (Bld) [Ratio] 0 % 0-5 [facility] Work Phone: MCHC Auto (RBC) [Mass/Vol]on 10-16-2021 MCHC (RBC) [Mass/Vol] 32.6 g/dL 32-36 [facility] Work Phone: No Panel Informationon 10-16 Estimated GFR (MDRD) Amer 111 mL/min >60 [facility] Work Phone: Comment on above: GFR Calc Estimated GFR (MDRD) Non-Af Amer 92 mL/min >60 [facility] Work Phone: Comment on above: Non- GFR Calc Prostate Specific Antigen Total 20.20 ng/mL 0.0-4.0 [facility] Work Phone: Comment on above: This test was perfor med using the TPSA assay method for the[employer] chemistry system. Values obtained with differentassay methods cannot be used interchangably.When changing PSA assays in the course of monitoring apatient, additional sequential testing should be carriedout to confirm baseline values. Platelets bldon 10-16-2021 Platelets (Bld) [#/Vol] 247 10*3/uL 150-450 [facility] Work Phone: Serum or plasma calcium alfonso urement (mass/volume)on 10-16-2021 Calcium [Mass/Vol] 9.1 mg/dL 8.5-10.1 [facility] Work Phone: Serum or plasma creatinine m easurement (mass/volume)on 10-16-2021 Creatinine [Mass/Vol] 0.84 mg/dL 0.70-1.30 [facility] Work Phone: Comment on above: The validity of the calculated GFR & GFRAA in patients over 70 years has not been determined. Clinical correlation is essential. Serum or plasma thyroperoxid ase antibody assay (units/volume)on 10-16-2021 TPO Ab Qn [IU]/mL [facility] Work Phone: Comment on above: Performed at: [place] [id number] Director: Toi Ponce PhD, Phone: [phone] Serum or plasma urea nitroge n measurement (mass/volume)on 10-16-2021 Urea nitrogen [Mass/Vol] 14 mg/dL - [facility] Work Phone: Thin prep Papanicolaou smear with manual screeningon 10-16-2021 Thin prep Papanicolaou smear with manual screening 7 03-15 [facility] Work Phone: Lab Report: Basic Metabolic Profile (BMP)on 10-28-2017 Anion gap [Moles/Vol] 8 mmol/L Invalid Interpretation Code 03-15 [facility] Work Phone: [phone] Calcium [Mass/Vol] 8.8 mg/dL Invalid Interpretation Code 8.5-10.1 [facility] Work Phone: [phone] Chloride [Moles/Vol] 102 mmol/L Invalid Interpretation Code 98-107 [facility] Work Phone: [phone] CO2 (BldV) [Partial pressure] 29.0 mmol/L Invalid Interpretation Code 21.0-32.0 [facility] Work Phone: [phone] Creatinine [Mass/Vol] 1.06 mg/dL Invalid Interpretation Code 0.70-1.30 [facility] Work Phone: [phone] GFR/1.73 sq M.predicted among non-blacks MDRD (S/P/Bld) [Vol rate/Area] 71 mL/min/{1.73_m2} Invalid Interpretation Code >60 [facility] Phone: [phone] Glomerular Filtration rate 86 mL/min Invalid Interpretation Code >60 [facility] Work Phone: [phone] Glucose [Mass/Vol] 101 mg/dL Invalid Interpretation Code 70-110 [facility] Phone: [phone] Potassium [Moles/Vol] 3.6 mmol/L Invalid Interpretation Code 3.5-5.1 [facility] Work Phone: [phone] Sodium [Moles/Vol] 139 mmol/L Invalid Interpretation Code 136-145 [facility] Phone: [phone] Urea nitrogen [Mass/Vol] 18 mg/dL Invalid Interpretation Code 7-18 [facility] Work Phone: [phone] Urea nitrogen/Creatinine [Mass ratio] 17.7069595 mg/mg Invalid Interpretation Code 10-20 [facility] Phone: [phone] [facility] lead advisory Device on Alert for early battery depletion. Pt refuses remote monitoring system at this time. 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 05-31-2017 Left ventricular Ejection fraction 40 % Invalid Interpretation Code [facility] Phone: [phone] Office Visiton 05-24-2017 Documentation of current medications (procedure) Done Invalid Interpretation Code [facility] Work Phone: [phone] Office Visiton 04-12-2017 Fall risk assessment No Invalid Interpretation Code [facility] Work Phone: [phone]) Lab Report: BNP,B-Type NATRI URETIC PEPTIDEon 10-09-2016 Natriuretic peptide B (Bld) [Mass/Vol] 134.5 pg/mL High 0-100 [facility] Work Phone: [phone]) Lab Report: Basic Metabolic Profile (BMP)on 10-09-2016 Anion gap 6 mmol/L Invalid Interpretation Code 5-15 [facility] Work Phone: [phone] Anion gap [Moles/Vol] 6 mmol/L Invalid Interpretation Code 5-15 [facility] Work Phone: [phone] BUN/Creatinine Ratio 14.8 RATIO Invalid Interpretation Code 10-20 [facility] Work Phone: [phone] Calcium [Mass/Vol] 8.8 mg/dL Invalid Interpretation Code 8.5-10.1 [facility] Work Phone: [phone] Chloride [Moles/Vol] 103 mmol/L Invalid Interpretation Code 98-107 [facility] Work Phone: [phone] CO2 32.0 mmol/L Invalid Interpretation Code 21.0-32.0 [facility] Phone: [phone] CO2 (BldV) [Partial pressure] 32.0 mmol/L Invalid Interpretation Code 21.0-32.0 [facility] Work Phone: [phone] Creatinine [Mass/Vol] 1.22 mg/dL Invalid Interpretation Code 0.70-1.30 [facility] Phone: [phone] eGFR (non-black) 73 mL/min/{1.73_m2} Invalid Interpretation Code >60 [facility] Work Phone: [phone] GFR/1.73 sq M.predicted among non-blacks MDRD (S/P/Bld) [Vol rate/Area] 61 mL/min/{1.73_m2} Invalid Interpretation Code >60 [facility] Work Phone: [phone] Glomerular Filtration rate 73 mL/min Invalid Interpretation Code >60 [facility] Work Phone: [phone] Glucose [Mass/Vol] 102 mg/dL Invalid Interpretation Code 70-110 [facility] Work Phone: [phone] Potassium [Moles/Vol] 3.9 mmol/L Invalid Interpretation Code 3.5-5.1 [facility] Work Phone: [phone] Sodium [Moles/Vol] 141 mmol/L Invalid Interpretation Code 136-145 [facility] Work Phone: [phone] Urea nitrogen [Mass/Vol] 18 mg/dL Invalid Interpretation Code 7-18 [facility] Work Phone: [phone] Urea nitrogen/Creatinine [Mass ratio] 14.8985073 mg/mg Invalid Interpretation Code 10-20 [facility] Work Phone: [phone] Lab Report: CBC W/Diff, Auto matedon 10-09-2016 Absolute Neut 2.3 X10 3/UL Invalid Interpretation Code 2.0-7.7 [facility] Work Phone: [phone] Basophils/100 WBC (Bld) 0.4 % Invalid Interpretation Code 0-1 [facility] Work Phone: [phone] Basophils/100 WBC Auto (Bld) 0.4 % Invalid Interpretation Code 0-1 [facility] Work Phone: [phone] Eosinophils/100 leukocytes 5.8 % High 0-5 [facility] Work Phone: Eosinophils/100 WBC (Bld) 5.8 % High 0-5 [facility] Work Phone: [phone] Erythrocyte distribution width (RBC) [Ratio] 14.2 % Invalid Interpretation Code 11.6-14.6 [facility] Work Phone: [phone] Erythrocyte distribution width Auto Ratio (RBC) 14.2 % Invalid Interpretation Code 11.6-14.6 [facility] Work Phone: [phone] Erythrocytes (RBC) 4.41 10*6/uL Low 4.6-6.2 [facility] Work Phone: [phone] Hematocrit (Bld) [Volume fraction] 40.5 % Invalid Interpretation Code 40-54 [facility] Work Phone: Hematocrit (HCT) 40.5 % Invalid Interpretation Code 40-54 [facility] Work Phone: Hemoglobin (Bld) [Mass/Vol] 13.4 g/dL Invalid Interpretation Code 13.0-16.5 [facility] Work Phone: Immature granulocytes/100 WBC (Bld) 0.200 % Invalid Interpretation Code 0.0-0.9 [facility] Work Phone: Lymphocytes 1.60 X10 3/UL Invalid Interpretation Code 0.83-4.51 [facility] Work Phone: Lymphocytes (Bld) [#/Vol] 1.60 X10 3/UL Invalid Interpretation Code 0.83-4.51 [facility] Work Phone: Lymphocytes/100 leukocytes 34.6 % Invalid Interpretation Code 19-41 [facility] Work Phone: Lymphocytes/100 WBC (Bld) 34.6 % Invalid Interpretation Code 19-41 [facility] Work Phone: MCH 30.4 pg Invalid Interpretation Code 27.0-32.0 [facility] Work Phone: MCH (RBC) [Entitic mass] 30.4 pg Invalid Interpretation Code 27.0-32.0 [facility] Work Phone: MCHC mass conc (RBC) 33.1 G/GL Invalid Interpretation Code 32-36 [facility] Work Phone: MCV 91.8 fL Invalid Interpretation Code 80-94 [facility] Work Phone: MCV (RBC) [Entitic vol] 91.8 fL Invalid Interpretation Code 80-94 [facility] Work Phone: mean corpuscular hemoglobin concentration, RBC 33.1 G/GL Invalid Interpretation Code 32-36 [facility] Work Phone: Monocytes/100 leukocytes 9.5 % Invalid Interpretation Code 0-10 [facility] Work Phone: Monocytes/100 WBC (Bld) 9.5 % Invalid Interpretation Code 0-10 [facility] Work Phone: [phone] neutrophil count, blood 2.3 X10 3/UL Invalid Interpretation Code 2.0-7.7 [facility] Work Phone: Neutrophils/100 WBC (Bld) 49.5 % Invalid Interpretation Code 47-70 [facility] Work Phone: Neutrophils/100 WBC Auto (Bld) 49.5 % Invalid Interpretation Code 47-70 [facility] Work Phone: Platelet mean volume (Bld) [Entitic vol] 11.6 fL Invalid Interpretation Code 6.2-12.0 [facility] Work Phone: [phone] Platelets 170 10*3/mm3 Invalid Interpretation Code 150-450 [facility] Work Phone: [phone] Platelets (Bld) [#/Vol] 170 10*3/uL Invalid Interpretation Code 150-450 [facility] Work Phone: [phone] PMV by Armando 11.6 fL Invalid Interpretation Code 6.2-12.0 [facility] Work Phone: [phone] RBC (Bld) [#/Vol] 4.41 10*6/uL Low 4.6-6.2 [facility] Work Phone: [phone] RDW SD 47.8 fL High 35.1-43.9 [facility] Work Phone: red blood cell distribution width, size density 47.8 fL High 35.1-43.9 [facility] Work Phone: WBC (Bld) [#/Vol] 4.6 10*3/uL Invalid Interpretation Code 4.4-11.0 [facility] Work Phone: WBC (Leukocytes) 4.6 10*3/uL Invalid Interpretation Code 4.4-11.0 [facility] Work Phone: Lab Report: T4 Total, Thyrox inon 10-09-2016 T4 [Mass/Vol] 9.1 ug/dL Invalid Interpretation Code 4.5-12.1 [facility] Work Phone: [phone] Lab Report: Thyroid Stim Hor fernanda (TSH)on 10-09-2016 Thyroid stimulating hormone (TSH) 0.98 u[iU]/mL Invalid Interpretation Code 0.358-3.74 [facility] Work Phone: [phone] TSH Qn 0.98 m[IU]/L Invalid Interpretation Code 0.358-3.74 [facility] Work Phone: [phone] Clinical Lists Update: 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 10-08-2016 Left ventricular Ejection fraction 35 % Invalid Interpretation Code [facility] Work Phone: [phone]) Lab Report: Prothrombin Time w/INRon 04-08-2016 INR Coag (PPP) [Relative time] 1.1 {INR} Invalid Interpretation Code [facility] Work Phone: [phone] Prothrombin time (PT) Coag time (PPP) 13.4 s Invalid Interpretation Code 11.7-14.9 [facility] Work Phone: [phone] PT Coag (PPP) [Time] 13.443893022 s Invalid Interpretation Code 11.7-14.9 [facility] Work Phone: [phone]) Lab Report: Urinalysis, Rout ine (Dipstick)on 04-08-2016 Albumin Ql (U) 15 High Negative [facility] Work Phone: [phone] Bilirubin Ql (U) Negative Invalid Interpretation Code Negative [facility] Work Phone: [phone] Bilirubin Ql (U) Negative Invalid Interpretation Code Negative [facility] Work Phone: [phone] Clarity (U) Clear Invalid Interpretation Code Clear [facility] Work Phone: [phone] Color (U) Yellow Invalid Interpretation Code Yellow [facility] Work Phone: [phone] Glucose Ql (U) 100 mg/dL High Normal [facility] Work Phone: [phone] Ketones (U) [Mass/Vol] Negative Invalid Interpretation Code Negative [facility] Work Phone: [phone] Leukocyte esterase Test strip Ql (U) Negative Invalid Interpretation Code Negative [facility] Work Phone: [phone] NITRITE UR Negative Invalid Interpretation Code Negative [facility] Work Phone: [phone] Occult Blood, urine Negative Invalid Interpretation Code Negative [facility] Work Phone: [phone] OCCULT BLOOD-UR Negative Invalid Interpretation Code Negative [facility] Work Phone: [phone] pH (U) 5.0 [pH] Invalid Interpretation Code 5.0 - 8.0 [facility] Work Phone: [phone] Specific gravity Refractometry (U) [Rel density] 1.025 Invalid Interpretation Code 1.002-1.03 0 [facility] Work Phone: [phone] Urine, ketones presence Negative Invalid Interpretation Code Negative [facility] Work Phone: [phone] Urine, leukocyte esterase presence Negative Invalid Interpretation Code Negative [facility] Work Phone: [phone] Urine, pH 5.0 [pH] Invalid Interpretation Code 5.0 - 8.0 [facility] Work Phone: [phone] Urine, protein 15 mg/dL High Negative [facility] Work Phone: [phone] UROBILI Normal mg/dl Invalid Interpretation Code Normal [facility] Work Phone: [phone] Office Visiton 04-08-2016 Tobacco smoking status Tobacco smoking s tatus NHIS Invalid Interpretation Code [facility] Work Phone: [phone] Tobacco use status [facility] Never smoker Invalid Interpretation Code [facility] Work Phone: [phone] Replaced Document: Brent E CG Observationson 04-08-2016 EKG QRS axis -22 deg Invalid Interpretation Code [facility] Work Phone: [phone] electrocardiogram interpretation Sinus Bradycardia - Nonspecific T-abnormality. ABNORMAL Invalid Interpretation Code [facility] Work Phone: [phone] GE use only - for [employer] import when terms are not otherwise specified 440 ms Invalid Interpretation Code [facility] Work Phone: [phone] Heart rate 52 /min Invalid Interpretation Code [facility] Work Phone: [phone] Interpretation Sinus Bradycardia - Nonspecific T-abnormality. ABNORMAL Invalid Interpretation Code [facility] Work Phone: [phone] P [place] 25 deg Invalid Interpretation Code [facility] Work Phone: [phone] P wave axis, electrocardiogram 25 deg Invalid Interpretation Code [facility] Work Phone: [phone] NH Interval 174 ms Invalid Interpretation Code [facility] Work Phone: [phone] NH interval, electrocardiogram 174 ms Invalid Interpretation Code [facility] Work Phone: [phone] QRS axis, electrocardiogram -22 deg Invalid Interpretation Code [facility] Work Phone: [phone] QRS Duration 108 ms Invalid Interpretation Code [facility] Work Phone: [phone] QRS duration, electrocardiogram 108 ms Invalid Interpretation Code [facility] Work Phone: [phone] QT Interval new path ms Invalid Interpretation Code [facility] Work Phone: [phone] QT interval, electrocardiogram new path ms Invalid Interpretation Code [facility] Work Phone: [phone] QTc Ser[place] 440 ms Invalid Interpretation Code [facility] Work Phone: [phone] T [place] 90 deg Invalid Interpretation Code [facility] Work Phone: [phone] T wave axis, electrocardiogram 90 deg Invalid Interpretation Code [facility] Phone: [phone] Lab Report: Lipid Profileon 09-30-2015 Cholesterol [Mass/Vol] 107 mg/dL Invalid Interpretation Code 200 [facility] Work Phone: [phone] Cholesterol in HDL [Mass/Vol] 45 mg/dL Invalid Interpretation Code [facility] Work Phone: [phone] Cholesterol in LDL [Mass/Vol] 42 mg/dL Invalid Interpretation Code 0-130 [facility] Work Phone: [phone] Lipoprotein.pre-beta [Mass/Vol] 20 mg/dL Invalid Interpretation Code 5-40 [facility] Work Phone: [phone] Triglyceride [Mass/Vol] 99 mg/dL Invalid Interpretation Code [facility] Work Phone: [phone]) Lab Report: Liver Profileon 09-30-2015 Albumin [Mass/Vol] 4.0 g/dL Invalid Interpretation Code 3.4-5.0 [facility] Work Phone: [phone] Alkaline phosphatase (ALP) 59 U/L Invalid Interpretation Code 50-136 [facility] Work Phone: [phone] ALP (Bld) [Catalytic activity/Vol] 59 U/L Invalid Interpretation Code 50-136 [facility] Work Phone: [phone] ALT [Catalytic activity/Vol] 28 U/L Invalid Interpretation Code 12-78 [facility] Work Phone: [phone] AST [Catalytic activity/Vol] 20 U/L Invalid Interpretation Code 15-37 [facility] Work Phone: [phone] Bilirubin [Mass/Vol] 1.40 mg/dL High 0.20-1.[address] [facility] [address] [facility] Work Phone: [phone] Bilirubin.direct [Mass/Vol] 0.30 mg/dL Invalid Interpretation Code 0.00-0.30 [facility] Work Phone: [phone] Globulin 3.2 g/dL Invalid Interpretation Code 2.3-3.5 [facility] Work Phone: [phone] Globulin (S) [Mass/Vol] 3.2 g/dL Invalid Interpretation Code 2.3-3.5 [facility] Work Phone: [phone] Protein [Mass/Vol] 7.2 g/dL Invalid Interpretation Code 6.4-8.2 [facility] Work Phone: [phone] Office Visit: [facility] 09-09-20 15 General cardiovascular disease 10Y risk [#] Seymour.Aki'Agovalerie Not enough information Invalid Interpretation Code [facility] Work Phone: [phone]) Lab Report: BNP,B-Type NATRI URETIC PEPTIDEon 11-14-2014 Natriuretic peptide B (Bld) [Mass/Vol] 86.4 pg/mL Invalid Interpretation Code 0-100 [facility] Work Phone: [phone] Lab Report: CBC W/Diff, Auto matedon 11-14-2014 Absolute Neut 2.7 X10 3/UL Invalid Interpretation Code 2.0-7.7 [facility] Work Phone: [phone] Absolute Neutrophil count 2.7 X10 3/UL Invalid Interpretation Code 2.0-7.7 [facility] Work Phone: [phone] Office Visit: [facility] 11-14-19 15 cardiac risk group C Invalid Interpretation Code [facility] Work Phone: Tobacco smoking status Never Invalid Interpretation Code [facility] Work Phone: Lab Report: MGon 08-12-2012 Magnesium [Mass/Vol] 2.0 mg/dL Normal 1.8-2.4 [facility] Work Phone: Replaced Document: Brent ROQUE Observationson 08-10-2012 Pulse (Heart Rate) 407 ms Invalid Interpretation Code [facility] Work Phone: QT interval/QT interval (corrected for heart rate), electrocardiogram 407 ms Invalid Interpretation Code [facility] Work Phone: Vital Signs Date Time Vital Sign Value Performing Clinician Facility 02-26-2025 15:47-0400 Diastolic blood pressure 94 mm[Hg] Jian Jiménez MD MPH Work Phone: [facility] 02-26-2025 15:47-0400 Heart rate 72 /min Jian Jiménez MD MPH Work Phone: [facility] 02-26-2025 15:47-0400 Systolic blood pressure 162 mm[Hg] Jian Jiménez MD MPH Work Phone: [facility] 12-16-2024 17:23-0500 Body temperature 98.4 [degF] Dr. John Mckeon DO Work Phone: [facility] 12-16-2024 17:23-0500 Diastolic blood pressure 83 mm[Hg] Dr. John Mckeon DO Work Phone: [facility] 12-16-2024 17:23-0500 Heart rate 89 /min Dr. John Mckeon DO Work Phone: [facility] 12-16-2024 17:23-0500 Respiratory rate 17 /min Dr. John Mckeon DO Work Phone: [facility] 12-16-2024 17:23-0500 SaO2% (BldA) [Mass fraction] 96 % Dr. John Mckeon DO Work Phone: [facility] 12-16-2024 17:23-0500 Systolic blood pressure 146 mm[Hg] Dr. John Mckeon DO Work Phone: [facility] 12-16-2024 14:58-0500 Body height 160.[address] John Mckeon DO Work Phone: [facility] 12-16-2024 14:58-0500 Body mass index (BMI) [Ratio] 20 kg/m2 Dr. John Mckeon DO Work Phone: [facility] 12-16-2024 14:58-0500 Body weight 51.[address] John Mckeon DO Work Phone: [facility] 12-13-2024 15:40-0500 Body height 160 cm Urology Room [facility] 12-13-2024 15:40-0500 Body mass index (BMI) [Ratio] 20.55 kg/m2 [facility] 12-13-2024 15:40-0500 Body weight 52.62 kg [facility] 11-10-2024 10:58-0500 Body mass index (BMI) [Ratio] 21.4 kg/m2 Dr. John Mckeon DO Work Phone: [facility] 11-10-2024 10:58-0500 Body weight 54.[address] John Mckeon DO Work Phone: [facility] 11-10-2024 10:58-0500 Diastolic blood pressure 64 mm[Hg] Dr. John Mckeon DO Work Phone: [facility] 11-10-2024 10:58-0500 Heart rate 69 /min Dr. John Mckeon DO Work Phone: [facility] 11-10-2024 10:58-0500 Respiratory rate 16 /min Dr. John Mckeon DO Work Phone: [facility] 11-10-2024 10:58-0500 Systolic blood pressure 142 mm[Hg] Dr. John Mckeon DO Work Phone: [facility] 07-25-2024 13:00-0400 Diastolic blood pressure 61 mm[Hg] Asmita Zambrano MD Work Phone: [facility] 07-25-2024 13:00-0400 Heart rate 60 /min Asmita Zambrano MD Work Phone: [facility] 07-25-2024 13:00-0400 Respiratory rate 18 /min Asmita Zambrano MD Work Phone: [facility] 07-25-2024 13:00-0400 SaO2% (BldA) [Mass fraction] 96 % Asmita Zambrano MD Work Phone: [facility] 07-25-2024 13:00-0400 Systolic blood pressure 152 mm[Hg] Asmita Zambrano MD Work Phone: [facility] 07-25-2024 12:00-0400 Body temperature 97.5 [degF] Asmita Zambrano MD Work Phone: [facility] 07-25-2024 08:58-0400 Body height 160 cm Asmita Zambrano MD Work Phone: [facility] 07-25-2024 08:58-0400 Body mass index (BMI) [Ratio] 19.49 kg/m2 Asmita Zambrano MD Work Phone: [facility] 07-25-2024 08:58-0400 Body weight 49.9 kg Asmita Zambrano MD Work Phone: [facility] 07-12-2024 15:25-0400 Body mass index (BMI) [Ratio] 18.95 kg/m2 Asmita Zambrano MD Work Phone: [facility] 07-12-2024 15:25-0400 Body weight 48.53 kg Asmita Zambrano MD Work Phone: [facility] 07-12-2024 15:25-0400 Diastolic blood pressure 74 mm[Hg] Asmita Zambrano MD Work Phone: [facility] 07-12-2024 15:25-0400 Heart rate 68 /min Asmita Zambrano MD Work Phone: [facility] 07-12-2024 15:25-0400 Systolic blood pressure 143 mm[Hg] Asmita Zambrano MD Work Phone: [facility] 06-28-2024 13:36-0400 Body mass index (BMI) [Ratio] 18.6 kg/m2 Asmita Zambrano MD Work Phone: [facility] 06-28-2024 13:36-0400 Body weight 47.63 kg Asmita Zambrano MD Work Phone: [phone] [place] [address] 06-28-2024 13:36-0400 Diastolic blood pressure 80 mm[Hg] Asmita Zambrano MD Work Phone: [phone] [place] [address] 06-28-2024 13:36-0400 Heart rate 62 /min Asmita Zambrano MD Work Phone: [phone] [place] [address] 06-28-2024 13:36-0400 Systolic blood pressure 167 mm[Hg] Asmita Zambrano MD Work Phone: [facility] 06-14-2024 13:14-0400 Body height 160 cm Asmita Zambrano MD Work Phone: [facility] 06-14-2024 13:14-0400 Body mass index (BMI) [Ratio] 18.6 kg/m2 Asmita Zambrano MD Work Phone: [facility] 06-14-2024 13:14-0400 Body weight 47.63 kg Asmita Zambrano MD Work Phone: [facility] 05-17-2024 13:17-0400 Body height 160 cm Asmita Zambrano MD Work Phone: [phone] [place] [address] 05-17-2024 13:17-0400 Body mass index (BMI) [Ratio] 20.02 kg/m2 Asmita Zambrano MD Work Phone: [phone] [place] [address] 05-17-2024 13:17-0400 Body weight 51.26 kg Asmita Zambrano MD Work Phone: [facility] 05-17-2024 13:17-0400 Respiratory rate 16 /min Asmita Zambrano MD Work Phone: [facility] 04-26-2024 13:58-0400 Body weight 50.8 kg Asmita Zambrano MD Work Phone: [facility] 04-26-2024 13:58-0400 Respiratory rate 16 /min Asmita Zambrano MD Work Phone: [facility] 11-23-2023 14:19-0500 Body height 160.[address] John Mckeon Work Phone: [facility] 11-23-2023 14:19-0500 Body mass index (BMI) [Ratio] 21 kg/m2 Dr. John Mckeon Work Phone: [facility] 11-23-2023 14:19-0500 Body weight 53.[address] John Mckeon Work Phone: [facility] 11-23-2023 14:19-0500 Diastolic blood pressure 69 mm[Hg] Dr. John Mckeon Work Phone: [facility] 11-23-2023 14:19-0500 Heart rate 66 /min Dr. John Mckeon Work Phone: [facility] 11-23-2023 14:19-0500 Respiratory rate 18 /min Dr. John Mckeon Work Phone: [facility] 11-23-2023 14:19-0500 SaO2% (BldA) [Mass fraction] 99 % Dr. John Mckeon Work Phone: [facility] 11-23-2023 14:19-0500 Systolic blood pressure 128 mm[Hg] Dr. John Mckeon Work Phone: [facility] 10-22-2023 16:24-0500 Body temperature 98.4 [degF] Dr. John Mckeon Work Phone: [facility] 10-22-2023 16:24-0500 Diastolic blood pressure 60 mm[Hg] Dr. John Mckeon Work Phone: [facility] 10-22-2023 16:24-0500 Heart rate 64 /min Dr. John Mckeon Work Phone: [facility] 10-22-2023 16:24-0500 Respiratory rate 18 /min Dr. John Mckeon Work Phone: [facility] 10-22-2023 16:24-0500 SaO2% (BldA) [Mass fraction] 99 % Dr. John Mckeon Work Phone: [facility] 10-22-2023 16:24-0500 Systolic blood pressure 110 mm[Hg] Dr. John Mckeon Work Phone: [facility] 10-20-2023 16:00-0500 Body height 160.[address] John Mckeon Work Phone: [facility] 10-20-2023 16:00-0500 Body mass index (BMI) [Ratio] 20.7 kg/m2 Dr. John Mckeon Work Phone: [facility] 10-20-2023 16:00-0500 Body weight [address] John Mckeon Work Phone: [facility] 09-06-2023 14:09-0500 Body temperature 97.4 [degF] Dr. John Mckeon Work Phone: [facility] 09-06-2023 14:09-0500 Diastolic blood pressure 74 mm[Hg] Dr. John Mckeon Work Phone: [facility] 09-06-2023 14:09-0500 Heart rate 78 /min Dr. John Mckeon Work Phone: [facility] 09-06-2023 14:09-0500 Respiratory rate 18 /min Dr. John Mckeon Work Phone: [facility] 09-06-2023 14:09-0500 SaO2% (BldA) [Mass fraction] 95 % Dr. John Mckeon Work Phone: [facility] 09-06-2023 14:09-0500 Systolic blood pressure 139 mm[Hg] Dr. John Mckeon Work Phone: [facility] 09-06-2023 06:00-0500 Body mass index (BMI) [Ratio] 19.2 kg/m2 Dr. John Mckeon Work Phone: [facility] 09-06-2023 06:00-0500 Body weight 49.[address] John Mckeon Work Phone: [facility] 09-06-2023 04:00-0500 Body temperature 97.5 [degF] Dr. John Mckeon Work Phone: [facility] 09-06-2023 04:00-0500 Diastolic blood pressure 57 mm[Hg] Dr. John Mckeon Work Phone: [facility] 09-06-2023 04:00-0500 Heart rate 64 /min Dr. John Mckeon Work Phone: [facility] 09-06-2023 04:00-0500 Respiratory rate 16 /min Dr. John Mckeon Work Phone: [facility] 09-06-2023 04:00-0500 SaO2% (BldA) [Mass fraction] 97 % Dr. John Mckeon Work Phone: [facility] 09-06-2023 04:00-0500 Systolic blood pressure 118 mm[Hg] Dr. John Mckeon Work Phone: [facility] 09-05-2023 09:30-0500 Body height 160.[address] John Mckeon Work Phone: [facility] 09-04-2023 18:13-0400 Body temperature 98.2 [degF] Dr. John Mckeon Work Phone: [facility] 09-04-2023 18:13-0400 Diastolic blood pressure 76 mm[Hg] Dr. John Mckeon Work Phone: [facility] 09-04-2023 18:13-0400 Heart rate 82 /min Dr. John Mckeon Work Phone: [facility] 09-04-2023 18:13-0400 Respiratory rate 14 /min Dr. John Mckeon Work Phone: [facility] 09-04-2023 18:13-0400 SaO2% (BldA) [Mass fraction] 97 % Dr. John Mckeon Work Phone: [facility] 09-04-2023 18:13-0400 Systolic blood pressure 108 mm[Hg] Dr. John Mckeon Work Phone: [facility] 09-04-2023 15:20-0400 Body height 160.[address] John Mckeon Work Phone: [facility] 09-04-2023 15:20-0400 Body mass index (BMI) [Ratio] 19.9 kg/m2 Dr. John Mckeon Work Phone: [facility] 09-04-2023 15:20-0400 Body weight 51.[address] John Mckeon Work Phone: [facility] 06-17-2023 14:40-0400 Diastolic blood pressure 73 mm[Hg] Dr. John Mckeon Work Phone: [facility] 06-17-2023 14:40-0400 Heart rate 55 /min Dr. John Mckeon Work Phone: [facility] 06-17-2023 14:40-0400 Respiratory rate 16 /min Dr. John Mckeon Work Phone: [facility] 06-17-2023 14:40-0400 Systolic blood pressure 148 mm[Hg] Dr. John Mckeon Work Phone: [facility] 02-25-2023 14:39-0400 Body height 160.[address] John Mckeon Work Phone: [facility] 02-25-2023 14:39-0400 Body mass index (BMI) [Ratio] 30 kg/m2 Dr. John Mckeon Work Phone: [facility] 02-25-2023 14:39-0400 Body weight 76.[address] John Mckeon Work Phone: [facility] 02-25-2023 14:39-0400 Diastolic blood pressure 83 mm[Hg] Dr. John Mckeon Work Phone: [facility] 02-25-2023 14:39-0400 Heart rate 78 /min Dr. John Mckeon Work Phone: [facility] 02-25-2023 14:39-0400 Respiratory rate 18 /min Dr. John Mckeon Work Phone: [facility] 02-25-2023 14:39-0400 Systolic blood pressure 130 mm[Hg] Dr. John Mckeon Work Phone: [facility] 01-06-2023 12:03-0500 Diastolic blood pressure 51 mm[Hg] Dr. John Mckeon Work Phone: [facility] 01-06-2023 12:03-0500 Heart rate 76 /min Dr. John Mckeon Work Phone: [facility] 01-06-2023 12:03-0500 Respiratory rate 15 /min Dr. John Mckeon Work Phone: [facility] 01-06-2023 12:03-0500 SaO2% (BldA) [Mass fraction] 96 % Dr. John Mckeon Work Phone: [facility] 01-06-2023 12:03-0500 Systolic blood pressure 109 mm[Hg] Dr. John Mckeon Work Phone: [facility] 01-06-2023 08:51-0500 Body mass index (BMI) [Ratio] 21 kg/m2 Dr. John Mckeon Work Phone: [facility] 01-06-2023 08:51-0500 Body temperature 98.2 [degF] Dr. John Mckeon Work Phone: [facility] 01-06-2023 08:51-0500 Body weight 53.[address] John Mckeon Work Phone: [facility] 12-28-2022 00:08-0500 Diastolic blood pressure 77 mm[Hg] Dr. Shailesh Mancini Work Phone: [facility] 12-28-2022 00:08-0500 Heart rate 72 /min Dr. Shailesh Mancini Work Phone: [facility] 12-28-2022 00:08-0500 Respiratory rate 16 /min Dr. Shailesh Mancini Work Phone: [facility] 12-28-2022 00:08-0500 SaO2% (BldA) [Mass fraction] 98 % Dr. Shailesh Mancini Work Phone: [facility] 12-28-2022 00:08-0500 Systolic blood pressure 139 mm[Hg] Dr. Shailesh Mancini Work Phone: [facility] 12-27-2022 20:29-0500 Body height 160.[address] Shailesh Mancini Work Phone: [facility] 12-27-2022 20:29-0500 Body mass index (BMI) [Ratio] 20.5 kg/m2 Dr. Shailesh Mancini Work Phone: [facility] 12-27-2022 20:29-0500 Body temperature 97.1 [degF] Dr. Shailesh Mancini Work Phone: [facility] 12-27-2022 20:29-0500 Body weight 52.[address] Shailesh Mancini Work Phone: [facility] 10-21-2022 17:07-0500 Body temperature 97.9 [degF] Dr. Shailesh Mancini Work Phone: [facility] 10-21-2022 17:07-0500 Diastolic blood pressure 64 mm[Hg] Dr. Shailesh Mancini Work Phone: [facility] 10-21-2022 17:07-0500 Heart rate 83 /min Dr. Shailesh Mancini Work Phone: [facility] 10-21-2022 17:07-0500 Respiratory rate 16 /min Dr. Shailesh Mancini Work Phone: [facility] 10-21-2022 17:07-0500 SaO2% (BldA) [Mass fraction] 96 % Dr. Shailesh Mancini Work Phone: [facility] 10-21-2022 17:07-0500 Systolic blood pressure 121 mm[Hg] Dr. Shailesh Mancini Work Phone: [facility] 10-21-2022 11:02-0500 Body height 160.[address] Shailesh Mancini Work Phone: [facility] Work Phone: 10-21-2022 11:02-0500 Body mass index (BMI) [Ratio] 20.2 kg/m2 Dr. Shailesh Mancini Work Phone: [facility] 10-21-2022 11:02-0500 Body weight [address] Shailesh Mancini Work Phone: [facility] 08-05-2022 14:36-0400 Body height 160.[address] Shailesh Mancini Work Phone: [facility] Work Phone: 08-05-2022 14:36-0400 Body mass index (BMI) [Ratio] 20.2 kg/m2 Dr. Shailesh Mancini Work Phone: [facility] Work Phone: 08-05-2022 14:36-0400 Body weight 51.[address] Shailesh Mancini Work Phone: [facility] Work Phone: 08-05-2022 14:36-0400 Diastolic blood pressure 60 mm[Hg] Dr. Shailesh Mancini Work Phone: [facility] Work Phone: 08-05-2022 14:36-0400 Heart rate 64 /min Dr. Shialesh Mancini Work Phone: [facility] Work Phone: 08-05-2022 14:36-0400 Respiratory rate 18 /min Dr. Shailesh Mancini Work Phone: [facility] Work Phone: 08-05-2022 14:36-0400 Systolic blood pressure 98 mm[Hg] Dr. Shailesh Mancini Work Phone: [facility] Work Phone: 06-03-2022 15:34-0400 Diastolic blood pressure 42 mm[Hg] [facility] Work Phone: 06-03-2022 15:34-0400 Heart rate 72 /min [facility] Work Phone: 06-03-2022 15:34-0400 Respiratory rate 20 /min [facility] Work Phone: 06-03-2022 15:34-0400 Systolic blood pressure 110 mm[Hg] [facility] Work Phone: 03-05-2022 14:27-0400 Body height 160.02 cm [facility] Work Phone: 03-05-2022 14:27-0400 Body mass index (BMI) [Ratio] 20.3 kg/m2 [facility] Work Phone: 03-05-2022 14:27-0400 Body weight 52.16 kg [facility] Work Phone: 03-05-2022 14:27-0400 Diastolic blood pressure 59 mm[Hg] [facility] Work Phone: 03-05-2022 14:27-0400 Heart rate 55 /min [facility] Work Phone: 03-05-2022 14:27-0400 Respiratory rate 12 /min [facility] Work Phone: 03-05-2022 14:27-0400 Systolic blood pressure 121 mm[Hg] [facility] Work Phone: 03-05-2022 14:27-0400 Body height 160.02 cm [facility] Work Phone: 03-05-2022 14:27-0400 Body mass index (BMI) [Ratio] 20.3 kg/m2 [facility] Work Phone: 03-05-2022 14:27-0400 Body weight 52.16 kg [facility] Work Phone: 03-05-2022 14:27-0400 Diastolic blood pressure 59 mm[Hg] [facility] Work Phone: 03-05-2022 14:27-0400 Heart rate 55 /min [facility] Work Phone: 03-05-2022 14:27-0400 Respiratory rate 12 /min [facility] Work Phone: 03-05-2022 14:27-0400 Systolic blood pressure 121 mm[Hg] [facility] Work Phone: 05-24-2017 11:35-0400 Body height 160.02 cm Maureen Forman [facility] Work Phone: 05-24-2017 11:35-0400 Body mass index (BMI) [Ratio] 23.82 kg/m2 Maureen Forman [facility] Work Phone: 05-24-2017 11:35-0400 Body weight 61.01 kg Maureen Forman [facility] Work Phone: 05-24-2017 11:35-0400 Diastolic blood pressure 58 mm[Hg] Maureen Forman [facility] Work Phone: 05-24-2017 11:35-0400 Heart rate 54 /min [facility] Work Phone: 05-24-2017 11:35-0400 Respiratory rate 20 /min [facility] Work Phone: 05-24-2017 11:35-0400 Systolic blood pressure 116 mm[Hg] [facility] Work Phone: 05-24-2017 11:35-0400 Weight 61.01 kg Elsy Grubbs RN [facility] Work Phone: 04-12-2017 13:39-0400 Body height 160.02 cm Leonorajose alfredo Viveros [facility] Work Phone: 04-12-2017 13:39-0400 Body mass index (BMI) [Ratio] 23.45 kg/m2 Leonorajose alfredo Viveros [facility] Work Phone: 04-12-2017 13:39-0400 Body weight 60.06 kg Leonorajose alfredo [facility] Work Phone: 04-12-2017 13:39-0400 Diastolic blood pressure 50 mm[Hg] Leonorajose alfredo Viveros [facility] Work Phone: 04-12-2017 13:39-0400 Heart rate 52 /min Leonora Viveros [facility] Work Phone: 04-12-2017 13:39-0400 Respiratory rate 16 /min Leonora Felice [facility] Work Phone: 04-12-2017 13:39-0400 Systolic blood pressure 110 mm[Hg] Leonora Viveros [facility] Work Phone: 04-12-2017 13:39-0400 Weight 60.06 kg [facility] Work Phone: 10-09-2016 12:49-0500 Body mass index (BMI) [Ratio] 24.05 kg/m2 Elsy Grubbs RN [facility] Work Phone: 10-09-2016 12:49-0500 Body surface area Derived from formula 1.64 m2 Elsy Grubbs RN [facility] Work Phone: 10-09-2016 12:49-0500 Body weight 61.6 kg TERESITA [facility] Work Phone: 10-09-2016 12:49-0500 Diastolic blood pressure 72 mm[Hg] Elsy Grubbs RN [facility] Work Phone: 10-09-2016 12:49-0500 Heart rate 60 /min [facility] Work Phone: 10-09-2016 12:49-0500 Respiratory rate 16 /min TERESITA [facility] Work Phone: 10-09-2016 12:49-0500 Systolic blood pressure 124 mm[Hg] Elsy Grubbs RN [facility] Work Phone: 11-14-2014 15:17-0500 Diastolic blood pressure 60 mm[Hg] Elsy Grubbs RN [facility] Work Phone: 11-14-2014 15:17-0500 Heart rate 60 /min [facility] Work Phone: 11-14-2014 15:17-0500 Heart rate 64 /min [facility] Work Phone: 11-14-2014 15:17-0500 Systolic blood pressure 98 mm[Hg] Elsy Grubbs RN [facility] Work Phone: 11-14-2014 15:17-0500 Systolic blood pressure 100 mm[Hg] Elsy Grubbs RN [facility] Work Phone: 08-10-2012 12:42-0400 SaO2% (BldA) [Mass fraction] 99 % Elsy Grubbs RN [facility] Work Phone: 05-02-2012 14:57-0400 Body height 160.02 cm Elsy Grubbs RN [facility] Work Phone: 08-04-2010 11:15-0400 Body temperature 98.4 [degF] Elsy Grubbs RN [facility] Work Phone: Encounters Encounter Date Encounter Type Care Provider Facility Start: 04-25-2025 ambulatory [facility] Facility:[facility] Start: 04-24-2025 End: 04-24-2025 Office outpatient visit 15 minutes [facility] 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 Start: 03-12-2025 End: 03-12-2025 ambulatory John Mckeon Facility:[facility] Start: 02-26-2025 End: 02-26-2025 Patient encounter procedure Jian Jiménez MD MPH Work Phone: [facility] Comment on above: Urinary retention Start: 02-26-2025 End: 02-26-2025 ambulatory [facility] Start: 02-05-2025 End: 02-05-[address] John Mckeon DO Work Phone: [facility] Work Phone: Start: 02-05-2025 End: 02-05-2025 Patient encounter procedure Vincent Schulz [facility] Start: 02-05-2025 End: 02-05-2025 ambulatory [facility] Facility:[facility] Start: 01-03-2025 End: 01-03-2025 ambulatory [facility] Start: 01-03-2025 End: 01-03-2025 Office outpatient visit 5 minutes Asmita Zambrano MD Work Phone: [facility] Comment on above: Urinary retention Start: 12-16-2024 End: 12-16-2024 Emergency department patient visit Dr. Timoteo Mckenna DO -Emergency Department Work Phone: Start: 12-13-2024 End: 12-13-2024 Patient encounter procedure Urology [id number] Procedure Room [facility] Comment on above: Bladder spasms (Prim federico Dx); Urinary retention Start: 12-13-2024 End: 12-13-2024 ambulatory [facility] Start: 12-08-2024 End: 12-08-2024 Patient encounter procedure Vincent Schulz [facility] Start: 12-08-2024 End: 12-08-2024 ambulatory [facility] Start: 12-06-2024 End: 12-06-2024 Office outpatient visit 15 minutes Asmita Zambrano MD Work Phone: [facility] Comment on above: Urinary retention; Bladder spasm; Malignant neoplasm of prostate (Multi) Start: 12-06-2024 End: 12-06-2024 ambulatory [facility] Start: 12-01-2024 End: 12-01-2024 ambulatory [facility] Facility:[facility] Start: 12-01-2024 End: 12-01-[address] Timoteo Mullins MD -[facility] Work Phone: Start: 11-10-2024 End: 11-10-[address] Timoteo Mullins MD -[facility] Work Phone: Start: 11-10-2024 End: 11-10-2024 ambulatory [facility] Facility:[facility] Start: 10-18-2024 End: 10-18-2024 Office outpatient visit 5 minutes Asmita aZmbrano MD Work Phone: [facility] Comment on above: Urinary retention Start: 10-18-2024 End: 10-18-2024 ambulatory [facility] Start: 09-06-2024 End: 09-07-2024 ambulatory [facility] Start: 09-01-2024 End: 09-01-2024 ambulatory [facility] Facility[facility] Start: 08-03-2024 End: 08-03-2024 ambulatory [facility] Facility:[facility] Start: 07-25-2024 End: 07-25-2024 Subsequent hospital visit by physician Asmita Zambrano MD Work Phone: [facility] [place] Comment on above: Urinary retention (P rimary Dx) Start: 07-24-2024 ambulatory [facility] Start: 07-12-2024 End: 07-12-2024 Office outpatient visit 25 minutes Asmita Zambrano MD Work Phone: [facility] Comment on above: Malignant neoplasm o f prostate (Multi); Abnormal digital rectal exam; Elevated PSA; Retention of urine Start: 07-12-2024 End: 07-12-2024 ambulatory [facility] Ambulatory Start: 07-10-2024 End: 07-10-2024 Subsequent hospital visit by physician Darrell Ghosh [address] [place] [address] Comment on above: Malignant neoplasm o f prostate (Multi) Start: 07-10-2024 End: 07-10-2024 ambulatory [facility] Start: 07-06-2024 End: 07-06-2024 ambulatory [facility] Facility:[facility] Start: 06-28-2024 End: 06-28-2024 Office outpatient visit 25 minutes Asmita Zambrano MD Work Phone: [facility] Comment on above: Elevated PSA; Abnormal digital rectal exam; Malignant neoplasm of prostate (Multi); Retention of urine Start: 06-28-2024 End: 06-28-2024 ambulatory [facility] Amb[facility] Start: 06-14-2024 End: 06-14-2024 Patient encounter procedure Asmita Zambrano MD Work Phone: [facility] Comment on above: Elevated PSA (Primar y Dx) Start: 06-14-2024 End: 06-14-2024 ambulatory [facility] Start: 06-02-2024 End: 06-02-2024 ambulatory [facility] Facility:[facility] Start: 05-31-2024 End: 05-31-2024 ambulatory [facility] Facility:[facility] Start: 05-30-2024 End: 05-30-2024 ambulatory [facility] Facility:[facility] Start: 05-24-2024 End: 05-24-2024 ambulatory [facility] Start: 05-23-2024 End: 05-23-2024 ambulatory [facility] Facility:[facility] Start: 05-17-2024 End: 05-17-2024 Patient encounter procedure Asmita Zambrano MD Work Phone: [facility] Comment on above: Incomplete bladder e mptying (Primary Dx) Start: 05-17-2024 End: 05-17-2024 ambulatory [facility] Start: 05-17-2024 End: 05-17-2024 ambulatory [facility] Facility:[facility] Start: 04-26-2024 End: 04-26-2024 Office outpatient new 45 minutes Asmita Zambrano MD Work Phone: [facility] Comment on above: Benign prostatic hyp erplasia with lower urinary tract symptoms, symptom details unspecified; Retention of urine; Nocturia; Abnormal digital rectal exam Start: 04-26-2024 End: 04-26-2024 ambulatory [facility] Start: 11-26-2023 End: 11-26-[address] John Mckeon Work Phone: [facility] Work Phone: Start: 11-26-2023 End: 11-26-[address] [facility]ke[facility] Start: 11-23-2023 End: 11-23-[address] John Mckeon Work Phone: [facility] Work Phone: Start: 10-20-2023 End: 10-22-2023 Evaluation and management of inpatient Dr. John Mckeon [facility] Work Phone: Start: 10-20-2023 End: 10-22-[address] John Mckeon Work Phone: [facility] Work Phone: Start: 10-12-2023 End: 10-12-2023 Non-patient / Non-visit Dr. John Mckeon Work Phone: [facility] Work Phone: Start: 10-12-2023 End: 10-12-[address] John Mckeon Work Phone: [facility] Work Phone: Start: 10-12-2023 End: 10-12-[address] [facility]ke[facility]: Start: 09-15-2023 End: 09-15-[address] John Mckeon Work Phone: [facility] Work Phone: Start: 09-15-2023 End: 09-15-[address] [facility] Mcke[facility] Work Phone: Start: 09-06-2023 Non-patient / Non-visit Dr. John Mckeon Work Phone: [facility] Work Phone: Start: 09-05-2023 Non-patient / Non-visit Dr. John Mckeon Work Phone: [facility] Work Phone: Start: 09-04-2023 End: 09-06-2023 Evaluation and management of inpatient Dr. John Mckeon [facility] Work Phone: Start: 09-04-2023 End: 09-06-[address] John Mckeon Work Phone: [facility] Work Phone: Start: 09-03-2023 End: 09-03-[address] John Mckeon Work Phone: [facility] Work Phone: Start: 08-31-2023 End: 08-31-[address] John Mckeon Work Phone: [facility] Work Phone: Start: 08-31-2023 End: 08-31-[address] John Mckeon Work Phone: [facility]-Laboratory, Specimen Work Phone: Start: 07-20-2023 End: 07-20-[address] John Mckeon Work Phone: [facility] Work Phone: Start: 07-20-2023 End: 07-20-[address] John Mckeon Work Phone: [facility] Work Phone: Start: 07-09-2023 End: 07-09-[address] John Mckeon Work Phone: [facility] Work Phone: Start: 07-09-2023 End: 07-09-[address] John Mckeon Work Phone: [facility] Work Phone: Start: 06-17-2023 End: 06-17-[address] John Mcekon Work Phone: [facility] Work Phone: Start: 05-11-2023 End: 05-11-[address] John Mckeon Work Phone: [facility] Work Phone: Start: 05-11-2023 End: 05-11-[address] John Mckeon Work Phone: [facility] Work Phone: Start: 04-07-2023 End: 04-07-[address] John Mckeon Work Phone: [facility] Work Phone: Start: 03-26-2023 End: 03-26-[address] John Mckeon Work Phone: [facility] Work Phone: Start: 03-26-2023 End: 03-26-[address] John Mckeon Work Phone: [facility] Start: 02-25-2023 End: 02-25-[address] John Mckeon Work Phone: [facility] Start: 02-24-2023 End: 02-24-[address] John Mckeon Work Phone: [facility] Start: 02-17-2023 Non-patient / Non-visit Dr. John Mckeon Work Phone: [facility] Start: 01-06-2023 End: 01-06-2023 Emergency department patient [facility] Start: 12-27-2022 End: 12-28-2022 Emergency department patient visit Dr. Shailesh [facility]ancini [facility] Start: 11-18-2022 End: 11-18-[address] Shailesh Mancini Work Phone: [facility] Start: 10-21-2022 End: 10-21-2022 Admission to same day surgery center Dr. Shailesh [facility]ancini [facility] Start: 10-21-2022 End: 10-21-[address] Shailesh Mancini Work Phone: [facility] Work Phone: Start: 10-12-2022 End: 10-12-[address] Shailesh Mancini Work Phone: [facility] Work Phone: Start: 10-12-2022 End: 10-12-[address] Shailesh Mancini Work Phone: [facility] Start: 08-05-2022 End: 08-05-[address] Shailesh Mancini Work Phone: [facility] Start: 07-18-2022 End: 07-18-[address] Shailesh Mancini Work Phone: [facility] Start: 06-03-2022 End: 06-03-2022 Patient encounter procedure [facility] Start: 04-15-2022 End: 04-15-2022 Patient encounter procedure [facility] Start: 03-05-2022 End: 03-05-2022 Patient encounter procedure [facility] Start: 02-03-2022 End: 02-03-2022 Patient encounter procedure [facility] Start: 12-31-2021 End: 12-31-2021 Patient encounter procedure [facility] Start: 10-16-2021 Patient encounter procedure [facility] Start: 10-18-2011 End: 10-18-2011 REFILL - MYCHART Marino Calderón Jude Work Phone: Gastroenterology Comment on above: RE: Medication Renew al Request Procedures Date Procedure Procedure Detail Performing Clinician Start: 12-16-2024 SARS-CoV-2, Influenza & RSV (PCR) Dr. John Mckeon DO Work Phone: Start: 07-25-2024 PULSE OXIMETRY, SPOT Asmita Zambrano MD Work Phone: Start: 10-20-2023 Cysto,Transurethral Resection Prostate (Not Applicable) Dr. John Mckeon Work Phone: Start: 09-15-[address] John Mckeon Work Phone: Start: 09-04-2023 Plain chest X-ray Dr. John Mckeon Work Phone: Start: 09-04-2023 CT of abdomen and pelvis without contrast Dr. John Mckeon Work Phone: Start: 09-04-[address] John Mckeon Work Phone: Start: 05-11-2023 CT of chest without contrast Dr. John Mckeon Work Phone: Start: 04-07-2023 Computed tomography of abdomen and pelvis with contrast Dr. John Mckeon Work Phone: Start: 12-27-2022 Computed tomography of abdomen and pelvis with intravenous contrast Dr. Shailesh Mancini Work Phone: Start: 10-21-[address] Shailesh Mancini Work Phone: Start: 03-05-2022 Plain chest X-ray Shailesh Mancini Start: 09-27-2017 End: 09-28-2017 Prgrmg eval implantable [...] dual lead dfb oRbbi Abbott MD Start: 05-24-2017 End: 05-24-2017 Follow Up Appt Other Robbi Abbott MD Start: 05-24-2017 End: 05-24-2017 MMM Robbi Abbott MD Start: 05-24-2017 End: 06-09-2017 Nuclear stress test -Lexiscan Robbi Abbott MD Start: 05-24-2017 End: 05-24-2017 PFM Robbi Abbott MD Start: 05-24-2017 End: 05-24-2017 Documentation of current medications Maureen Forman Start: 05-24-2017 End: 05-24-2017 Follow Up Appt Other Robbi Abbott MD Start: 05-24-2017 End: 05-24-2017 JOE Abbott MD Start: 05-24-2017 End: 06-09-2017 Nuclear stress test -Lexiscan Robbi Abbott MD Start: 05-24-2017 End: 05-24-2017 PFM Robbi Abbott MD Start: 04-12-2017 End: 04-12-2017 Documentation of current medications Leonorajose alfredo Viveros Start: 04-12-2017 End: 10-13-2017 Follow Up Appt 6 months Robbi Abbott MD Start: 04-12-2017 End: 10-13-2017 Follow Up Appt Other Robbi Abbott MD Start: 04-12-2017 End: 10-13-2017 JOE Abbott MD Start: 03-22-2017 End: 03-23-2017 Prgrmg [...] (no charge) Timoteo Mullins MD Start: 04-08-2016 Lipid 1996 panel - Serum or Plasma Asmita Zambrano MD Work Phone: Start: 04-08-2016 End: 04-08-2016 *UA - Urinalysis [...] Phone: Start: 03-19-2016 End: 04-08-2016 Chest x-ray Rbobi Abbott MD Start: 03-19-2016 End: 09-30-2016 Ecg [...] Robbi Abbott MD Start: 03-04-2015 End: 03-04-2015 MMM Robbi Abbott MD Start: 03-04-2015 End: 03-05-2015 Documentation of current medications Robbi Abbott MD Start: 03-04-2015 End: 03-04-2015 Follow Up Appt 6 months Robbi Abbott MD Start: 03-04-2015 End: 03-04-2015 MMM Robbi Abbott MD Start: 01-16-2015 End: 09-03-2015 [...] Work Phone: Start: 09-03-2014 End: 09-03-2014 PFM Abirl Dupree PA-C Work Phone: Start: 09-03-2014 End: [...] Robbi Abbott MD Start: 03-02-2014 End: 03-02-2014 JOE Abbott MD Start: 03-02-2014 End: 03-02-2014 Follow Up Appt 6 months Robbi Abbott MD Start: 03-02-2014 End: 10-01-2014 Hepatic function 2000 panel - Serum or Plasma Robbi Abbott MD Start: 03-02-2014 End: 10-01-2014 Lipid 1996 panel - Serum or Plasma Robbi Abbott MD Start: 03-02-2014 End: 03-02-2014 JOE Abbott MD Start: 01-30-2014 End: 08-23-2014 *Hepatic [...] dual lead dfb Timoteo Mullins MD Start: 05-19-2013 End: 08-04-2013 Follow Up Appt 3 months Adeel Tavares Start: 05-19-2013 End: 08-04-2013 Pacer Clinic Timoteo Mullins MD Start: 05-19-2013 End: 05-19-2013 Prgrmg eval implantable in prsn dual lead dfmartha Mullins MD Start: 03-20-2013 End: 08-04-2013 Follow Up Appt 6 months Robbi Abbott MD Start: 03-20-2013 End: 03-20-2013 Follow Up Appt Other Robbi Abbott MD Start: 03-20-2013 End: 08-04-2013 PFAdeel Abbott MD Start: 03-20-2013 End: 08-04-2013 Follow [...] Treatment Date Care Activity Detail Author Start: 01-25-2030 DTaP/Tdap/Td Vaccines (2 - Td or Tdap) DTaP/Tdap/Td Vaccines (2 - Td or Tdap) [facility] Start: 10-24-2025 End: 04-24-2026 Prostate specific Ag [Mass/volume] in Serum or Plasma PSA Lab Routine Prostate cancer (Multi) Expected: 10/24/2025 (Approximate), Expires: 04/24/2026 [facility] Work Phone: Comment on above: Expected: 10/24/2025 (Approximate), Expi res: 04/24/2026 Start: 10-23-2025 End: 10-23-2025 Patient encounter procedure 10/23/2025 1:30 PM EST Office Visit [facility] [address] [facility] [address] [place] [phone] Cheryl Sutherland, VALVE AND REGULATOR REPAIRER-MICRO LAB ANALYST [address] [place] [address] [facility] Start: 07-21-2025 Creatinine measurement Creatinine Level [facility] Start: 05-21-2025 End: 05-21-2025 Clinical Support 05/21/2025 1:30 PM EDT Clinical Support [facility] [address] [facility] [address] [place] [phone] [facility] Start: 04-24-2025 End: 04-24-2026 Prostate specific Ag [Mass/volume] in Serum or Plasma PSA Lab Routine Prostate cancer (Multi) Expected: 04/24/2025 (Approximate), Expires: 04/24/2026 [facility] Service Area Work Phone: Comment on above: Expected: 04/24/2025 (Approximate), Expi res: 04/24/2026 Start: 04-06-2025 End: 04-06-2025 Clinical Support 04/06/2025 2:00 PM EDT Clinical Support [place] [id number] [address] [place] [address] [facility] Start: 02-26-2025 End: 02-26-2025 Patient encounter procedure 02/26/2025 3:15 PM EDT Office Visit [address] [place] [address] Jian Mcdermott MD MPH [address] [place] [address] [facility] Start: 02-26-2025 End: 02-13-2026 Suprapubic Catheter Insertion Suprapubic Catheter Insertion Procedures Routine Urinary retention Expected: 02/26/2025 (Approximate), Expires: 02/13/2026 [facility] Service Area Work Phone: Comment on above: Expected: 02/26/2025 (Approximate), Expi res: 02/13/2026 Start: 01-03-2025 End: 01-03-2025 Clinical Support 01/03/2025 2:15 PM EST Clinical Support [address] [phone] [facility] Start: 12-16-2024 [facility] Start: 12-13-2024 End: 12-13-2024 Patient encounter procedure 12/13/2024 3:15 PM EST Procedure Visit [address] [place] [address] [facility] Start: 12-06-2024 End: 12-06-2024 Clinical Support 12/06/2024 3:00 PM EST Clinical Support [address] [phone] [facility] Start: 07-25-2024 Subsequent hospital visit by physician 07/25/2024 Hospital Encounter [facility] [place] [address] [place] [address] Asmita Zambrano MD [address] [place] [phone] [facility] [place] Start: 07-25-2024 End: 07-25-2024 Cystostomy cystotomy w/drainage Cystotomy Suprapubic Urinary retention 07/25/2024 10:54 AM EDT [facility] [place] Start: 07-12-2024 End: 07-12-2024 Patient encounter procedure 07/12/2024 3:30 PM EDT Office Visit [address] [phone] Asmita Zambrano MD [address] [place] [address] [facility] Start: 07-10-2024 End: 07-10-2024 Patient encounter procedure 07/10/2024 2:15 PM EDT Appointment [facility] [address] [place] [address] [facility] Start: 07-02-2024 COVID-19 Vaccine ( season) COVID-19 Vaccine ( season) [facility] Start: 07-02-2024 COVID-19 Vaccine ( season) COVID-19 Vaccine ( season) [facility] Start: 07-02-2024 Influenza vaccination Influenza Vaccine (#1) [facility] Start: 06-28-2024 End: 06-28-2025 Creatinine [Mass/volume] in Serum or Plasma Creatinine, Serum Lab Routine Retention of urine Expected: 06/28/2024 (Approximate), Expires: 06/28/2025 [facility] Work Phone: Comment on above: Expected: 06/28/2024 (Approximate), Expi res: 06/28/2025 Start: 06-28-2024 End: 06-28-2025 CT Abdomen and Pelvis W contrast IV CT abdomen pelvis w IV contrast Imaging Routine Malignant neoplasm of prostate (Multi) Expected: 06/28/2024 (Approximate), Expires: 06/28/2025 [facility] Service Area Work Phone: Comment on above: Expected: 06/28/2024 (Approximate), Expi res: 06/28/2025 Start: 06-28-2024 End: 06-28-2024 Patient encounter procedure 06/28/2024 1:30 PM EDT Office Visit [address] [phone] Asmita Zambrano MD [address] [place] [phone] [facility] Start: 05-24-2024 End: 05-24-2024 Patient encounter procedure 05/24/2024 3:15 PM EDT Office Visit [address] [phone] Asmita Zambrano MD [address] [place] [id number] [facility] Start: 04-26-2024 End: 04-26-2025 Creatinine [Mass/volume] in Serum or Plasma Creatinine, Serum Lab Routine Nocturia Expected: 04/26/2024 (Approximate), Expires: 04/26/2025 [facility] Work Phone: Comment on above: Expected: 04/26/2024 (Approximate), Expi res: 04/26/2025 Start: 04-26-2024 End: 04-26-2025 CT Pelvis W contrast IV CT pelvis w IV contrast Imaging Routine Abnormal digital rectal exam Expected: 04/26/2024 (Approximate), Expires: 04/26/2025 [facility] Work Phone: Comment on above: Expected: 04/26/2024 (Approximate), Expi res: 04/26/2025 Start: 04-26-2024 End: 04-26-2025 Prostate specific Ag [Mass/volume] in Serum or Plasma Prostate Specific Antigen Lab Routine Nocturia Abnormal digital rectal exam Expected: 04/26/2024 (Approximate), Expires: 04/26/2025 [facility] Service Area Work Phone: Comment on above: Expected: 04/26/2024 (Approximate), Expi res: 04/26/2025 Start: 10-22-2023 Patient discharge [facility] Start: 10-22-2023 Removal of urinary catheter [facility] Start: 10-21-2023 [facility] Start: 10-20-2023 Following clinical pathway protocol [facility] Start: 10-20-2023 Application of intermittent pneumatic compression device [facility] Start: 10-20-2023 Anesthesia transurethral resection of prostate ANESTH REMOVAL OF PROSTATE [facility] Start: 10-20-2023 Trurl rescj residual/regrowth obstr prstate tiss REMOVE PROSTATE REGROWTH [facility] Start: 10-20-2023 Oxygen therapy [facility] Start: 10-20-2023 Admission procedure [facility] Start: 10-20-2023 Deep breathing and coughing exercises [facility] Start: 10-20-2023 Incentive spirometry [facility] Start: 10-20-2023 Irrigation of urinary bladder [facility] Start: 10-20-2023 Measuring intake and output [facility] Start: 10-20-2023 Patient education [facility] Start: 10-20-2023 Provision of activity privileges [facility] Start: 10-20-2023 Taking patient vital signs [facility] Start: 10-20-2023 Vital signs measurements [facility] Start: 10-20-2023 [facility] Start: 09-06-2023 Referral to service [facility] Start: 09-06-2023 Patient discharge [facility] Start: 09-04-2023 End: 09-04-2023 Following clinical pathway protocol [facility] Start: 09-04-2023 Assessment of risk of venous thromboembolism [facility] Start: 09-04-2023 Incentive spirometry [facility] Start: 09-04-2023 Inhalation therapy procedure [facility] Start: 09-04-2023 Insertion of catheter into peripheral vein [facility] Start: 09-04-2023 Measuring intake and output [facility] Start: 09-04-2023 Providing care according to standard [facility] Start: 09-04-2023 Provision of activity privileges [facility] Start: 09-04-2023 Referral to occupational therapist [facility] Start: 09-04-2023 Referral to service [facility] Start: 09-04-2023 [facility] Start: 09-04-2023 Verification routine [facility] Start: 09-04-2023 Admission procedure [facility] Start: 09-04-2023 Hospital admission, emergency, from emergency room, medical nature [facility] Start: 09-04-2023 End: 09-05-2023 [facility] Start: 09-04-2023 Bacteria identified in Urine by Culture Urine Culture [facility] Start: 09-04-2023 Urine culture Urine Culture [facility] Start: 09-04-2023 Patient referral to dietitian [facility] Start: 07-02-2023 COVID-19 Vaccine ( season) COVID-19 Vaccine ( season) [facility] Start: 01-06-2023 Enteric precautions [facility] Start: 10-21-2022 Ambulation without limitation [facility] Start: 10-21-2022 Medication education [facility] Start: 10-21-2022 Patient discharge [facility] Start: 10-21-2022 Taking patient vital signs [facility] Start: 10-21-2022 [facility] Start: 10-21-2022 Anes transurethral w/urethrocystoscopy nos ANESTH BLADDER SURGERY [facility] Start: 10-21-2022 Cystourethroscopy w/internal urethrotomy male CYSTOSCOPY AND TREATMENT [facility] Start: 07-02-2021 Influenza vaccination INFLUENZA (Season Ended) [facility] Start: 04-08-2021 Lipid panel Lipid Panel [facility] Start: 03-05-2019 DIABETES SCREEN DIABETES SCREEN [facility] Start: 12-29-2017 End: 12-29-2017 Appointment Appointment [facility] Work Phone: Start: 10-22-2017 End: 10-22-2017 Appointment Appointment [facility] Work Phone: Start: 10-09-2017 Creatinine measurement Creatinine Level [facility] Start: 10-09-2017 Potassium measurement Potassium Level [facility] Start: 09-27-2017 End: 09-28-2017 Follow Up Appt 3 months Follow Up Appt 3 months [facility] Work Phone: Start: 09-27-2017 End: 09-28-2017 Pacer Clinic Pacer Clinic [facility] Work Phone: Start: 09-27-2017 End: 09-27-2017 Patient encounter procedure Appointment [facility] Work Phone: Start: 09-27-2017 End: 10-13-2017 Follow Up Appt 3 months Follow Up Appt 3 months [facility] Work Phone: Start: 09-27-2017 End: 10-13-2017 Pacer Clinic Pacer Clinic [facility] Work Phone: Start: 06-28-2017 End: 06-28-2017 Patient encounter procedure Appointment [facility] Work Phone: Start: 06-28-2017 End: 06-28-2017 Follow Up Appt 3 months Follow Up Appt 3 months [facility] Work Phone: Start: 06-28-2017 End: 06-28-2017 Pacer Clinic Pacer Clinic [facility] Work Phone: Start: 06-28-2017 End: 10-13-2017 Follow Up Appt 3 months Follow Up Appt 3 months [facility] Work Phone: Start: 06-28-2017 End: 10-13-2017 Pacer Clinic Pacer Clinic [facility] Work Phone: Start: 05-24-2017 End: 05-24-2017 Follow Up Appt Other Follow Up Appt Other [facility] Work Phone: Start: 05-24-2017 End: 05-24-2017 MMM MMM [facility] Work Phone: Start: 05-24-2017 End: 05-24-2017 Nuclear stress test -Lexiscan Nuclear stress test -Lexiscan [facility] Work Phone: Start: 05-24-2017 End: 05-24-2017 PFM PFM [facility] Work Phone: Start: 05-24-2017 End: 05-24-2017 Patient encounter procedure Appointment [facility] Work Phone: Start: 05-24-2017 End: 05-24-2017 Follow Up Appt Other Follow Up Appt Other [facility] Work Phone: Start: 05-24-2017 End: 05-24-2017 MMM MMM [facility] Work Phone: Start: 05-24-2017 End: 05-24-2017 Nuclear stress test -Lexiscan Nuclear stress test -Lexiscan [facility] Work Phone: Start: 05-24-2017 End: 05-24-2017 PFM PFM [facility] Work Phone: Start: 04-12-2017 End: 04-12-2017 Follow Up Appt 6 months Follow Up Appt 6 months [facility] Work Phone: Start: 04-12-2017 End: 04-12-2017 Follow Up Appt Other Follow Up Appt Other [facility] Work Phone: Start: 04-12-2017 End: 04-12-2017 MMM MMM [facility] Work Phone: Start: 04-12-2017 End: 04-12-2017 Patient encounter procedure Appointment [facility] Work Phone: Start: 04-12-2017 End: 10-13-2017 Follow Up Appt 6 months Follow Up Appt 6 months [facility] Work Phone: Start: 04-12-2017 End: 10-13-2017 Follow Up Appt Other Follow Up Appt Other [facility] Work Phone: Start: 04-12-2017 End: 10-13-2017 MMM MMM [facility] Work Phone: Start: 03-22-2017 End: 03-23-2017 Follow Up Appt 3 months Follow Up Appt 3 months [facility] Work Phone: Start: 03-22-2017 End: 03-23-2017 Pacer Clinic Pacer Clinic [facility] Work Phone: Start: 03-22-2017 End: 10-13-2017 Follow Up Appt 3 months Follow Up Appt 3 months [facility] Work Phone: Start: 03-22-2017 End: 10-13-2017 Pacer Clinic Pacer Clinic [facility] Work Phone: Start: 12-17-2016 End: 12-17-2016 Follow Up Appt 3 months Follow Up Appt 3 months [facility] Work Phone: Start: 12-17-2016 End: 12-17-2016 Pacer Clinic Pacer Clinic [facility] Work Phone: Start: 12-17-2016 End: 10-13-2017 Follow Up Appt 3 months Follow Up Appt 3 months [facility] Work Phone: Start: 12-17-2016 End: 10-13-2017 Pacer Clinic Pacer Clinic [facility] Work Phone: Start: 10-09-2016 End: 10-12-2016 *BMP *BMP [facility] Work Phone: Start: 10-09-2016 End: 10-09-2016 *CBC with Differential *CBC with Differential [facility] Work Phone: Start: 10-09-2016 End: 10-09-2016 BNP *Brain Natriuretic Peptide BNP [facility] Work Phone: Start: 10-09-2016 End: 10-12-2016 Chest x-ray X-Ray, Chest, PA & Lateral [facility] Work Phone: Start: 10-09-2016 End: 10-09-2016 Follow Up Appt Other Follow Up Appt Other [email or web address] Work Phone: Start: 10-09-2016 End: 10-12-2016 Thyroid stimulating hormone (TSH) *TSH [email or web address] Work Phone: Start: 10-09-2016 End: 10-12-2016 Thyroxine (T4) *T4 (Total) [email or web address] Work Phone: Start: 10-09-2016 End: 10-12-2016 Basic metabolic 2000 panel - Serum or Plasma *BMP [email or web address] Work Phone: Start: 10-09-2016 End: 10-09-2016 CBC W Auto Differential panel - Blood *CBC with Differential [email or web address] Work Phone: Start: 10-09-2016 End: 10-12-2016 Chest x-ray X-Ray, Chest, PA & Lateral [email or web address] Work Phone: Start: 10-09-2016 End: 10-09-2016 Follow Up Appt Other Follow Up Appt Other [email or web address] Work Phone: Start: 10-09-2016 End: 10-09-2016 Natriuretic peptide B [Mass/volume] in Blood *Brain Natriuretic Peptide BNP [email or web address] Work Phone: Start: 10-09-2016 End: 10-12-2016 Thyrotropin [Units/volume] in Serum or Plasma *TSH [email or web address] Work Phone: Start: 10-09-2016 End: 10-12-2016 Thyroxine (T4) [Mass/volume] in Serum or Plasma *T4 (Total) [email or web address] Work Phone: Start: 09-08-2016 End: 09-30-2016 Follow Up Appt 3 months Follow Up Appt 3 months [email or web address] Work Phone: Start: 09-08-2016 End: 09-30-2016 Pacer Clinic Pacer Clinic [email or web address] Work Phone: Start: 09-08-2016 End: 09-30-2016 Follow Up Appt 3 months Follow Up Appt 3 months [email or web address] Work Phone: Start: 09-08-2016 End: 09-30-2016 Pacer Clinic Pacer Clinic [facility] Work Phone: Start: 04-24-2016 End: 09-30-2016 Follow Up Appt 3 months Follow Up Appt 3 months [facility] Work Phone: Start: 04-24-2016 End: 09-30-2016 Pacer Clinic Pacer Clinic [facility] Work Phone: Start: 04-24-2016 End: 09-30-2016 Follow Up Appt 3 months Follow Up Appt 3 months [facility] Work Phone: Start: 04-24-2016 End: 09-30-2016 Pacer Clinic Pacer Clinic [facility] Work Phone: Start: 04-09-2016 End: 04-09-2016 *BMP *BMP [facility] Work Phone: Start: 04-09-2016 End: 04-08-2016 *UA - Urinalysis w/o Micro *UA - Urinalysis w/o Micro [facility] Work Phone: Start: 04-09-2016 End: 04-08-2016 CBC W Auto Differential panel - Blood *CBC without Diff [facility] Work Phone: Start: 04-09-2016 End: 04-08-2016 INR Coag RelTime (PPP) *PT/INR [facility] Work Phone: Start: 04-09-2016 End: 04-08-2016 Pacemaker Generator Change Pacemaker Generator Change [facility] Work Phone: Start: 04-09-2016 End: 04-08-2016 *UA - Urinalysis w/o Micro *UA - Urinalysis w/o Micro [facility] Work Phone: Start: 04-09-2016 End: 04-09-2016 Basic metabolic 2000 panel - Serum or Plasma *BMP [facility] Work Phone: Start: 04-09-2016 End: 04-08-2016 CBC W Auto Differential panel - Blood *CBC without Diff [email or web address] Work Phone: Start: 04-09-2016 End: 04-08-2016 INR in Platelet poor plasma by Coagulation assay *PT/INR [email or web address] Work Phone: Start: 04-09-2016 End: 04-08-2016 Pacemaker Generator Change Pacemaker Generator Change [email or web address] Work Phone: Start: 04-08-2016 End: 04-08-2016 *Hepatic Function Panel *Hepatic Function Panel [email or web address] Work Phone: Start: 04-08-2016 End: 04-08-2016 Ecg routine ecg w/least 12 lds w/i&r EKG (In office) [facility] Work Phone: Start: 04-08-2016 End: 04-08-2016 Follow Up Appt 6 months Follow Up Appt 6 months [facility] Work Phone: Start: 04-08-2016 End: 04-08-2016 Lipid panel [AGGREGATE] *Lipid Profile CC PCP [facility] Work Phone: Start: 04-08-2016 End: 04-08-2016 MMM MMM [facility] Work Phone: Start: 04-08-2016 End: 04-08-2016 Ecg routine ecg w/least 12 lds w/i&r EKG (In office) [facility] Work Phone: Start: 04-08-2016 End: 04-08-2016 Follow Up Appt 6 months Follow Up Appt 6 months [employer] Work Phone: Start: 04-08-2016 End: 10-13-2017 Hepatic function 2000 panel - Serum or Plasma *Hepatic Function Panel [facility] Work Phone: Start: 04-08-2016 End: 10-13-2017 Lipid 1996 panel - Serum or Plasma *Lipid Profile CC PCP [facility] Work Phone: Start: 04-08-2016 End: 04-08-2016 MMM MMM [facility] Work Phone: Start: 03-30-2016 End: 09-30-2016 *Hepatic Function Panel *Hepatic Function Panel [facility] Work Phone: Start: 03-30-2016 End: 09-30-2016 Lipid panel [AGGREGATE] *Lipid Profile CC PCP [facility] Work Phone: Start: 03-30-2016 End: 09-30-2016 Hepatic function 2000 panel - Serum or Plasma *Hepatic Function Panel [facility] Work Phone: Start: 03-30-2016 End: 09-30-2016 Lipid 1996 panel - Serum or Plasma *Lipid Profile CC PCP [facility] Work Phone: Start: 03-19-2016 End: 04-08-2016 Chest x-ray X-Ray, Chest, PA & Lateral [facility] Work Phone: Start: 03-19-2016 End: 09-30-2016 Ecg routine ecg w/least 12 lds w/i&r EKG (In office) [facility] Work Phone: Start: 03-19-2016 End: 04-08-2016 Chest x-ray X-Ray, Chest, PA & Lateral [facility] Work Phone: Start: 03-19-2016 End: 09-30-2016 Ecg routine ecg w/least 12 lds w/i&r EKG (In office) [facility] Work Phone: Start: 02-28-2016 End: 09-30-2016 Follow Up Appt 1 month Follow Up Appt 1 month [facility] Work Phone: Start: 02-28-2016 End: 09-30-2016 Pacer Clinic [facility] Work Phone: Start: 02-28-2016 End: 09-30-2016 Follow Up Appt 1 month Follow Up Appt 1 month [facility] Work Phone: Start: 02-28-2016 End: 09-30-2016 Pacer Clinic [facility] Work Phone: Start: 01-17-2016 End: [...] 3 months Follow Up Appt 3 months [facility] Work Phone: Start: 11-15-2015 End: 09-30-2016 Pacer Clinic Pacer Clinic [facility] Work Phone: Start: 11-15-2015 End: 09-30-2016 Follow Up Appt 3 months Follow Up Appt 3 months [facility] Work Phone: Start: 11-15-2015 End: 09-30-2016 Pacer Clinic Pacer Clinic [facility] Work Phone: Start: 10-02-2015 End: 09-30-2016 Follow Up Appt 1 month Follow Up Appt 1 month [facility] Work Phone: Start: 10-02-2015 End: 09-30-2016 Pacer Clinic Pacer Clinic [facility] Work Phone: Start: 10-02-2015 End: 09-30-2016 Follow Up Appt 1 month Follow Up Appt 1 month [facility] Work Phone: Start: 10-02-2015 End: 09-30-2016 Pacer Clinic [facility] Work Phone: Start: 09-09-2015 End: 09-30-2015 *BMP *BMP [facility] Work Phone: Start: 09-09-2015 End: 09-30-2015 *CBC with Differential *CBC with Differential [facility] Work Phone: Start: 09-09-2015 End: 09-30-2015 *Hepatic Function Panel *Hepatic Function Panel [facility] Work Phone: Start: 09-09-2015 End: 09-30-2015 BNP *Brain Natriuretic Peptide BNP [facility] Work Phone: Start: 09-09-2015 End: 10-09-2016 Chest x-ray X-Ray, Chest, PA & Lateral [facility] Work Phone: Start: 09-09-2015 End: 09-30-2016 Follow Up Appt 1 month Follow Up Appt 1 month [facility] Work Phone: Start: 09-09-2015 End: 09-09-2015 Follow Up Appt 6 months Follow Up Appt 6 months [facility] Work Phone: Start: 09-09-2015 End: 09-30-2015 Lipid panel [AGGREGATE] *Lipid Profile CC PCP [facility] Work Phone: Start: 09-09-2015 End: 09-30-2016 Pacer Clinic Pacer Clinic [facility] Work Phone: Start: 09-09-2015 End: 09-09-2015 PFM PFM [facility] Work Phone: Start: 09-09-2015 End: 09-30-2015 Basic metabolic 2000 panel - Serum or Plasma *BMP [facility] Work Phone: Start: 09-09-2015 End: 09-30-2015 CBC W Auto Differential panel - Blood *CBC with Differential [facility] Work Phone: Start: 09-09-2015 End: 10-09-2016 Chest x-ray X-Ray, Chest, PA & Lateral [facility] Work Phone: Start: 09-09-2015 End: 09-30-2016 Follow Up Appt 1 month Follow Up Appt 1 month [facility] Phone: Start: 09-09-2015 End: 09-09-2015 Follow Up Appt 6 months Follow Up Appt 6 months [facility] Work Phone: Start: 09-09-2015 End: 09-30-2015 Hepatic function 2000 panel - Serum or Plasma *Hepatic Function Panel [facility] Work Phone: Start: 09-09-2015 End: 09-30-2015 Lipid 1996 panel - Serum or Plasma *Lipid Profile CC PCP [facility] Work Phone: Start: 09-09-2015 End: 09-30-2015 Natriuretic peptide B [Mass/volume] in Blood *Brain Natriuretic Peptide BNP [facility] Work Phone: Start: 09-09-2015 End: 09-30-2016 Pacer Clinic Pacer Clinic [facility] Work Phone: Start: 09-09-2015 End: 09-09-2015 PFM PFM [facility] Work Phone: Start: 05-06-2015 End: 09-03-2015 Follow Up Appt 3 months Follow Up Appt 3 months [facility] Work Phone: Start: 05-06-2015 End: 09-03-2015 Pacer Clinic Pacer Clinic [facility] Work Phone: Start: 05-06-2015 End: 09-03-2015 Follow Up Appt 3 months Follow Up Appt 3 months [facility] Work Phone: Start: 05-06-2015 End: 09-03-2015 Pacer Clinic Pacer Clinic [facility] Work Phone: Start: 04-01-2015 End: 09-09-2015 *Hepatic Function Panel *Hepatic Function Panel [facility] Work Phone: Start: 04-01-2015 End: 09-09-2015 Lipid panel [AGGREGATE] *Lipid Profile CC PCP [facility] Work Phone: Start: 04-01-2015 End: 09-09-2015 Hepatic function 2000 panel - Serum or Plasma *Hepatic Function Panel [facility] Work Phone: Start: 04-01-2015 End: 09-09-2015 Lipid 1996 panel - Serum or Plasma *Lipid Profile CC PCP [facility] Work Phone: Start: 03-04-2015 End: 03-04-2015 Follow Up Appt 6 months Follow Up Appt 6 months [facility] Work Phone: Start: 03-04-2015 End: 03-04-2015 MMM MMM [facility] Work Phone: Start: 03-04-2015 End: 03-04-2015 Follow Up Appt 6 months Follow Up Appt 6 months [facility] Work Phone: Start: 03-04-2015 End: 03-04-2015 MMM MMM [facility] Work Phone: Start: 01-16-2015 End: 09-03-2015 Follow Up Appt 3 months Follow Up Appt 3 months [facility] Work Phone: Start: 01-16-2015 End: 09-03-2015 Pacer Clinic [facility] Work Phone: Start: 01-16-2015 End: 09-03-2015 Follow Up Appt 3 months Follow Up Appt 3 months [facility] Work Phone: Start: 01-16-2015 End: 09-03-2015 Pacer Clinic [facility] Work Phone: Start: 11-30-2014 End: 11-30-2014 Follow Up Appt Other Follow Up Appt Other [facility] Work Phone: Start: 11-30-2014 End: 11-30-2014 PFM PFM [facility] Work Phone: Start: 11-30-2014 End: 11-30-2014 Follow Up Appt Other Follow Up Appt Other [facility] Work Phone: Start: 11-30-2014 End: 11-30-2014 PFM PFM [facility] Work Phone: Start: 11-29-2014 End: 11-29-2014 *BMP *BMP [facility] Work Phone: Start: 11-29-2014 End: 11-29-2014 Basic metabolic 2000 panel - Serum or Plasma *BMP [facility] Work Phone: Start: 11-14-2014 End: 11-15-2014 *BMP *BMP [facility] Work Phone: Start: 11-14-2014 End: 11-15-2014 *CBC with Differential *CBC with Differential [facility] Work Phone: Start: 11-14-2014 End: 11-15-2014 BNP *Brain Natriuretic Peptide BNP [facility] Work Phone: Start: 11-14-2014 End: 11-15-2014 Chest x-ray X-Ray, Chest, PA & Lateral [facility] Work Phone: Start: 11-14-2014 End: 11-14-2014 Follow up Appt 3 weeks Follow up Appt 3 weeks [facility] Work Phone: Start: 11-14-2014 End: 11-14-2014 MMM MMM [facility] Work Phone: Start: 11-14-2014 End: 11-15-2014 Basic metabolic 2000 panel - Serum or Plasma *BMP [facility] Work Phone: Start: 11-14-2014 End: 11-15-2014 CBC W Auto Differential panel - Blood *CBC with Differential [facility] Work Phone: Start: 11-14-2014 End: 11-15-2014 Chest x-ray X-Ray, Chest, PA & Lateral [facility] Work Phone: Start: 11-14-2014 End: 11-14-2014 Follow up Appt 3 weeks Follow up Appt 3 weeks [facility] Work Phone: Start: 11-14-2014 End: 11-14-2014 MMM MMM [facility] Work Phone: Start: 11-14-2014 End: 11-15-2014 Natriuretic peptide B [Mass/volume] in Blood *Brain Natriuretic Peptide BNP [facility] Work Phone: Start: 10-16-2014 End: 11-14-2014 Follow Up Appt 3 months Follow Up Appt 3 months [facility] Work Phone: Start: 10-16-2014 End: 11-14-2014 Pacer [facility] Pacer [facility] Work Phone: Start: 10-16-2014 End: 11-14-2014 Follow Up Appt 3 months Follow Up Appt 3 months [facility] Work Phone: Start: 10-16-2014 End: 11-14-2014 Pacer [facility] Pacer [facility] Work Phone: Start: 09-03-2014 End: 10-01-2014 *Hepatic Function Panel *Hepatic Function Panel [facility] Work Phone: Start: 09-03-2014 End: 09-03-2014 Ecg routine ecg w/least 12 lds w/i&r EKG (In office) [facility] Work Phone: Start: 09-03-2014 End: 09-03-2014 Follow Up Appt Other Follow Up Appt Other [facility] Work Phone: Start: 09-03-2014 End: 10-01-2014 Lipid panel [AGGREGATE] *Lipid Profile CC PCP [facility] Work Phone: Start: 09-03-2014 End: 09-03-2014 PFM PFM [facility] Work Phone: Start: 09-03-2014 End: 09-03-2014 Ecg routine ecg w/least 12 lds w/i&r EKG (In office) [facility] Work Phone: Start: 09-03-2014 End: 09-03-2014 Follow Up Appt Other Follow Up Appt Other [facility] Work Phone: Start: 09-03-2014 End: 10-01-2014 Hepatic function 2000 panel - Serum or Plasma *Hepatic Function Panel [facility] Work Phone: Start: 09-03-2014 End: 10-01-2014 Lipid 1996 panel - Serum or Plasma *Lipid Profile CC PCP [facility] Work Phone: Start: 09-03-2014 End: 09-03-2014 PFM PFM [facility] Work Phone: Start: 07-03-2014 End: 08-23-2014 Follow Up Appt 3 months Follow Up Appt 3 months [facility] Work Phone: Start: 07-03-2014 End: 08-23-2014 Pacer Clinic [facility] Work Phone: Start: 07-03-2014 End: 08-23-2014 Follow Up Appt 3 months Follow Up Appt 3 months [facility] Work Phone: Start: 07-03-2014 End: 08-23-2014 Pacer Clinic [facility] Work Phone: Start: 04-04-2014 End: 07-03-2014 Follow Up Appt 3 months Follow Up Appt 3 months [facility] Work Phone: Start: 04-04-2014 End: 07-03-2014 Pacer Clinic Pacer Clinic [facility] Work Phone: Start: 04-04-2014 End: 07-03-2014 Follow Up Appt 3 months Follow Up Appt 3 months [facility] Work Phone: Start: 04-04-2014 End: 07-03-2014 Pacer Clinic [facility] Work Phone: Start: 03-02-2014 End: 10-01-2014 *Hepatic Function Panel *Hepatic Function Panel [facility] Work Phone: Start: 03-02-2014 End: 03-02-2014 Follow Up Appt 6 months Follow Up Appt 6 months [facility] Work Phone: Start: 03-02-2014 End: 10-01-2014 Lipid panel [AGGREGATE] *Lipid Profile CC PCP [facility] Work Phone: Start: 03-02-2014 End: 03-02-2014 MMM MMM [facility] Work Phone: Start: 03-02-2014 End: 03-02-2014 Follow Up Appt 6 months Follow Up Appt 6 months [facility] Work Phone: Start: 03-02-2014 End: 10-01-2014 Hepatic function 2000 panel - Serum or Plasma *Hepatic Function Panel [facility] Work Phone: Start: 03-02-2014 End: 10-01-2014 Lipid 1996 panel - Serum or Plasma *Lipid Profile CC PCP [facility] Work Phone: Start: 03-02-2014 End: 03-02-2014 MMM MMM [facility] Work Phone: Start: 01-30-2014 End: 08-23-2014 *Hepatic Function Panel *Hepatic Function Panel [facility] Work Phone: Start: 01-30-2014 End: 08-23-2014 Lipid panel [AGGREGATE] *Lipid Profile CC PCP [facility] Work Phone: Start: 01-30-2014 End: 08-23-2014 Hepatic function 2000 panel - Serum or Plasma *Hepatic Function Panel [facility] Work Phone: Start: 01-30-2014 End: 08-23-2014 Lipid 1996 panel - Serum or Plasma *Lipid Profile CC PCP [facility] Work Phone: Start: 12-26-2013 End: 07-03-2014 Follow Up Appt 3 months Follow Up Appt 3 months [facility] Work Phone: Start: 12-26-2013 End: 07-03-2014 Pacer Clinic Pacer Clinic [facility] Work Phone: Start: 12-26-2013 End: 07-03-2014 Follow Up Appt 3 months Follow Up Appt 3 months [facility] Work Phone: Start: 12-26-2013 End: 07-03-2014 Pacer Clinic [facility] Work Phone: Start: 08-17-2013 End: 12-18-2013 Follow Up Appt 3 months Follow Up Appt 3 months [facility] Work Phone: Start: 08-17-2013 End: 12-18-2013 Pacer Clinic Pacer Clinic [facility] Work Phone: Start: 08-17-2013 End: 12-18-2013 Follow Up Appt 3 months Follow Up Appt 3 months [facility] Work Phone: Start: 08-17-2013 End: 12-18-2013 Pacer Clinic [facility] Work Phone: Start: 08-04-2013 End: 08-18-2013 *Hepatic Function Panel *Hepatic Function Panel [facility] Work Phone: Start: 08-04-2013 End: 08-04-2013 Device Interrogation Device Interrogation [facility] Work Phone: Start: 08-04-2013 End: 08-04-2013 Follow Up Appt 6 months Follow Up Appt 6 months [facility] Work Phone: Start: 08-04-2013 End: 08-18-2013 Lipid panel [AGGREGATE] *Lipid Profile CC PCP [facility] Work Phone: Start: 08-04-2013 End: 08-04-2013 PFM PFM [facility] Work Phone: Start: 08-04-2013 End: 08-04-2013 Device Interrogation Device Interrogation [facility] Work Phone: Start: 08-04-2013 End: 08-04-2013 Follow Up Appt 6 months Follow Up Appt 6 months [facility] Work Phone: Start: 08-04-2013 End: 08-18-2013 Hepatic function 2000 panel - Serum or Plasma *Hepatic Function Panel [facility] Work Phone: Start: 08-04-2013 End: 08-18-2013 Lipid 1996 panel - Serum or Plasma *Lipid Profile CC PCP [facility] Work Phone: Start: 08-04-2013 End: 08-04-2013 PFM PFM [facility] Work Phone: Start: 05-19-2013 End: 08-04-2013 Follow Up Appt 3 months Follow Up Appt 3 months [facility] Work Phone: Start: 05-19-2013 End: 08-04-2013 Pacer Clinic Pacer Clinic [facility] Work Phone: Start: 05-19-2013 End: 08-04-2013 Follow Up Appt 3 months Follow Up Appt 3 months [facility] Work Phone: Start: 05-19-2013 End: 08-04-2013 Pacer Clinic Pacer Clinic [facility] Work Phone: Start: 03-20-2013 End: 08-04-2013 Follow Up Appt 6 months Follow Up Appt 6 months [facility] Work Phone: Start: 03-20-2013 End: 03-20-2013 Follow Up Appt Other Follow Up Appt Other [facility] Work Phone: Start: 03-20-2013 End: 08-04-2013 PFM PFM [facility] Work Phone: Start: 03-20-2013 End: 08-04-2013 Follow Up Appt 6 months Follow Up Appt 6 months [facility] Work Phone: Start: 03-20-2013 End: 03-20-2013 Follow Up Appt Other Follow Up Appt Other [facility] Work Phone: Start: 03-20-2013 End: 08-04-2013 PFM PFM [facility] Work Phone: Start: 02-15-2013 End: 03-20-2013 Follow Up Appt 3 months Follow Up Appt 3 months [facility] Work Phone: Start: 02-15-2013 End: 03-20-2013 Pacer Clinic Pacer Clinic [facility] Work Phone: Start: 02-15-2013 End: 03-20-2013 Follow Up Appt 3 months Follow Up Appt 3 months [facility] Work Phone: Start: 02-15-2013 End: 03-20-2013 Pacer Clinic Pac[facility] Clinic [facility] Work Phone: Start: 01-30-2013 End: 03-20-2013 *Hepatic Function Panel *Hepatic Function Panel [facility] Work Phone: Start: 01-30-2013 End: 03-20-2013 Lipid panel [AGGREGATE] *Lipid Profile [facility] Work Phone: Start: 01-30-2013 End: 03-20-2013 Thyroid stimulating hormone (TSH) *TSH [facility] Work Phone: Start: 01-30-2013 End: 08-17-2012 Thyroxine (T4) *T4 (Total) [facility] Work Phone: Start: 01-30-2013 End: 03-20-2013 Hepatic function 2000 panel - Serum or Plasma *Hepatic Function Panel [facility] Work Phone: Start: 01-30-2013 End: 03-20-2013 Lipid 1996 panel - Serum or Plasma *Lipid Profile [facility] Work Phone: Start: 01-30-2013 End: 03-20-2013 Thyrotropin [Units/volume] in Serum or Plasma *TSH [facility] Work Phone: Start: 01-30-2013 End: 08-17-2012 Thyroxine (T4) [Mass/volume] in Serum or Plasma *T4 (Total) [facility] Work Phone: Start: 10-01-2012 End: 03-20-2013 *Hepatic Function Panel *Hepatic Function Panel [facility] Work Phone: Start: 10-01-2012 End: 03-20-2013 Lipid panel [AGGREGATE] *Lipid Profile [facility] Work Phone: Start: 10-01-2012 End: 03-20-2013 Hepatic function 2000 panel - Serum or Plasma *Hepatic Function Panel [facility] Work Phone: Start: 10-01-2012 End: 03-20-2013 Lipid 1996 panel - Serum or Plasma *Lipid Profile [facility] Work Phone: Start: 08-10-2012 End: 08-17-2012 *BMP *BMP [facility] Work Phone: Start: 08-10-2012 End: 03-20-2013 *CBC with Differential *CBC with Differential [facility] Work Phone: Start: 08-10-2012 End: 08-10-2012 Ecg routine ecg w/least 12 lds w/i&r EKG (In office) [facility] Work Phone: Start: 08-10-2012 End: 08-10-2012 Follow Up Appt 6 months Follow Up Appt 6 months [facility] Work Phone: Start: 08-10-2012 End: 08-17-2012 Magnesium *Magnesium [facility] Work Phone: Start: 08-10-2012 End: 08-17-2012 Thyroid stimulating hormone (TSH) *TSH [facility] Work Phone: Start: 08-10-2012 End: 08-17-2012 Thyroxine (T4) *T4 (Total) [facility] Work Phone: Start: 08-10-2012 End: 08-17-2012 Basic metabolic 2000 panel - Serum or Plasma *BMP [facility] Work Phone: Start: 08-10-2012 End: 03-20-2013 CBC W Auto Differential panel - Blood *CBC with Differential [facility] Work Phone: Start: 08-10-2012 End: 08-10-2012 Ecg routine ecg w/least 12 lds w/i&r EKG (In office) [facility] Work Phone: Start: 08-10-2012 End: 08-10-2012 Follow Up Appt 6 months Follow Up Appt 6 months [facility] Work Phone: Start: 08-10-2012 End: 08-17-2012 Magnesium [Mass/volume] in Serum or Plasma *Magnesium [facility] Work Phone: Start: 08-10-2012 End: 08-17-2012 Thyrotropin [Units/volume] in Serum or Plasma *TSH [facility] Phone: Start: 08-10-2012 End: 08-17-2012 Thyroxine (T4) [Mass/volume] in Serum or Plasma *T4 (Total) [facility] Phone: Start: 05-02-2012 End: 05-02-2012 *Hepatic Function Panel *Hepatic Function Panel [facility] Phone: Start: 05-02-2012 End: 05-02-2012 Ecg routine ecg w/least 12 lds w/i&r EKG (In office) [facility] Phone: Start: 05-02-2012 End: 05-02-2012 Echocardiography Echocardiogram (complete) [facility] Phone: Start: 05-02-2012 End: 05-02-2012 Follow Up Appt 6 months Follow Up Appt 6 months [facility] Phone: Start: 05-02-2012 End: 05-02-2012 Lipid panel [AGGREGATE] *Lipid Profile [facility] Phone: Start: 05-02-2012 End: 05-02-2012 Nuclear stress test -adenosine Nuclear stress test -adenosine [facility] Phone: Start: 05-02-2012 End: 05-02-2012 Ecg routine ecg w/least 12 lds w/i&r EKG (In office) [facility] Phone: Start: 05-02-2012 End: 05-02-2012 Echocardiography Echocardiogram (complete) [facility] Phone: Start: 05-02-2012 End: 05-02-2012 Follow Up Appt 6 months Follow Up Appt 6 months [facility] Phone: Start: 05-02-2012 End: 05-02-2012 Hepatic function 2000 panel - Serum or Plasma *Hepatic Function Panel [facility] Phone: Start: 05-02-2012 End: 05-02-2012 Lipid 1996 panel - Serum or Plasma *Lipid Profile [facility] Work Phone: Start: 05-02-2012 End: 05-02-2012 Nuclear stress test -adenosine Nuclear stress test -adenosine [facility] Work Phone: Start: 01-06-2011 RSV High Risk: (Elderly (60+) or Population) (1 - 1-dose 75+ series) RSV High Risk: (Elderly (60+) or Population) (1 - 1-dose 75+ series) [facility] Start: 08-31-2009 Pneumococcal vaccination Pneumococcal Vaccine (2 of 2 - PCV) [facility] Start: 08-31-2009 Pneumococcal Vaccine: 65+ Years (2 of 2 - PCV) Pneumococcal Vaccine: 65+ Years (2 of 2 - PCV) [facility] Start: 01-06-2001 ADVANCE DIRECTIVE DISCUSSION ADVANCE DIRECTIVE DISCUSSION [facility] Start: 1996 RSV patients and/or patients aged 60+ years (1 - 1-dose 60+ series) RSV patients and/or patients aged 60+ years (1 - 1-dose 60+ series) [facility] Start: 01-06-1986 SHINGRIX VACCINE (1 of 2) SHINGRIX VACCINE (1 of 2) [facility] Start: 01-06-1986 Zoster Vaccines (1 of 2) Zoster Vaccines (1 of 2) [facility] Start: 01-06-1955 Urine microalbumin profile DTAP,TDAP,TD (1 - Tdap) [facility] Start: 01-06-1954 Diabetes mellitus screening Diabetes Screening [facility] Start: 1936 Annual wellness visit Welcome to Medicare Visit [facility] Start: 1936 Echocardiography Echocardiogram [facility] Start: 1936 Lipid panel Lipid Panel [facility] Start: 1936 Medicare Annual Wellness Visit Medicare Annual Wellness Visit (AWV) [facility] End: 07-25-2024 Continuous Pulse oximetry, In Phase 1 Continuous Pulse oximetry, In Phase 1 Respiratory Care Routine Continuous until discontinued starting 07/25/2024 [facility] Area Work Phone: Comment on above: Continuous until discontinued starting 0 07/25/2024 End: 07-10-2024 CT Abdomen and Pelvis W contrast IV [facility] Service Area Work Phone: Comment on above: Once for 1 Occurrences starting 07/10/20 24 until 07/10/2024 Cystostomy cystotomy w/drainage Cystotomy Suprapubic Urinary retention [facility] Electrocardiographic procedure [facility] Patient Education [facility] Work Phone: Patient referral [facility] Work Phone: Surgical pathology study Surgica l Pathology Exam Pathology and Cytology Routine Elevated PSA 06/14/2024 12:45 PM EDT [facility] Service Area Work Phone: Immunizations Immunization Date Immunization Notes Care Provider Fa cility 09-05-2023 Influenza High-Dose Quadrivalent Dr. John Mckeon Work Phone: [facility] 09-05-2023 influenza virus vacc ine, unspecified formulation Asmita Zambrano MD Work Phone: [facility] Work Phone: 07-31-2020 influenza, injectabl e, quadrivalent, preservative free Dr. John Mckeon Work Phone: [facility] 07-31-2020 influenza, seasonal, injectable [facility] 07-31-2020 Fluad Quad (65yr up)(PF) 60 mcg (15 mcg x 4)/0.5mL IM syringe (flu vac [facility] Work Phone: 01-26-2020 tetanus toxoid, redu blanche diphtheria toxoid, and acellular pertussis vaccine, adsorbed [facility] 08-17-2018 Influenza virus vaccine [facility] 08-17-2018 Fluad 2017- 65yr up(PF)45 mcg(15 mcgx3)/0.5 mL intramuscular syringe (flu vac [facility] Work Phone: 11-05-2015 tetanus and diphther ia toxoids, adsorbed, preservative free, for adult use (2 Lf of tetanus toxoid and 2 Lf of diphtheria toxoid) [facility] 08-31-2008 influenza virus vacc ine, unspecified formulation Marino Roque Work Phone: [facility] 08-31-2008 pneumococcal polysaccharide vaccine, 23 valent Marino Roque Work Phone: [facility] Payers Date Payer Category Payer Self-pay [id number] 2023 Medicare [employer] [facility] MED[employer] [id number] 2023-Present [address] [place], [place] [id number] 2023 Medicare (Managed Care) [facility] [id number] 2023 Medicare [id number] 2014 Unknown [id number] 1936 Unknown [id number] 2.16.840.1.125299.3.579.2.1 243 1936 Unknown [id number] 2.16.840.1.029312.3.579.2.1 243 1936 Unknown [id number] 2.16.840.1.609225.3.579.2.1 244 1936 Unknown [id number] 2.16.840.1.238281.3.579.2.1 244 1936 Unknown [id number] 2.16.840.1.375968.3.579.2.1 244 193 Unknown [id number] 2.16.840.1.231095.3.579.2.1 244 1936 Unknown [id number] 2.16.840.1.010160.3.579.2.1 244 1936 Unknown [id number] 2.16.840.1.148692.3.579.2.1 244 1936 Unknown [id number] 2.16.840.1.472344.3.579.2.1 244 1936 Unknown [id number] 2.16.840.1.357561.3.579.2.1 244 1936 Unknown [id number] 2.16840.1.624901.3.579.2.1 244 1936 Unknown [id number] 2.16840.1.354746.3.579.2.1 244 1936 Unknown [id number] 2.16840.1.413688.3.579.2.1 244 1936 Unknown [id number] 2.16840.1.606604.3.579.2.1 244 1936 Unknown [id number] 2.16840.1.232870.3.579.2.1 244 1936 Unknown [id number] 2.16840.1.821455.3.579.2.1 244 Unknown [id number] 2.16.840.1.565092.3.579.2.4 62 Unknown [id number] 2.16.840.1.847516.3.579.2.4 62 Unknown [id number] 2.16.840.1.222256.3.579.2.4 62 Unknown [id number] 2.16840.1.107566.3.579.2.4 62 Unknown [id number] 2.16.840.1.390919.3.579.2.4 62 Unknown [id number] 2.16.840.1.244018.3.579.2.4 62 Unknown [id number] 2.16.840.1.404317.3.579.2.4 62 Unknown [id number] 2.16.840.1.235067.3.579.2.4 62 Unknown [id number] 2.16.840.1.564920.3.579.2.4 62 Unknown [id number] 2.16.840.1.791864.3.579.2.4 62 Unknown [id number] 2.16.840.1.312124.3.579.2.4 62 Unknown [id number] 2.16.840.1.087928.3.579.2.4 62 Unknown [id number] 2.16.840.1.893187.3.579.2.4 62 Unknown [id number] 2.16.840.1.685617.3.579.2.4 62 Unknown [id number] 2.16.840.1.987442.3.579.2.4 62 Unknown [id number] 2.16.840.1.979594.3.579.2.4 62 Social History Date Type Detail Facility Start: 06-12-2010 End: 04-26-2024 Tobacco smoking status WIIS Never smoker [facility] Start: 06-12-2010 Alcohol intake Current non-dr enrollment consultant of alcohol (finding) [facility] Start: 1935 Sex Assigned At Not on file [facility] Start: 09-04-2021 End: 10-11-2023 Tobacco smoking status [facility] Unknown if ever smoked [facility] Start: 10-01-2019 None [facility] Start: 10-01-2019 With Family [facility] Start: 12-29-2018 Non-smoker [facility] Start: 1935 Sex Assigned At Male W [facility] Start: 04-26-2024 Tobacco use and exposure Smokeless tobacco non-user [facility] Work Phone: Start: 04-26-2024 End: 02-26-2025 History of Social function [facility] Work Phone: Start: 04-26-2024 End: 02-26-2025 Tobacco use panel [facility] Work Phone: Start: 04-16-2024 End: 04-09-2025 Exposure to SARS-CoV-2 (event) Not sure [facility] Start: 07-25-2024 End: 04-24-2025 Alcoholic beverage intake Ex-drinker (finding) [facility] Work Phone: Start: 02-09-2025 Sex Male (finding) [facility] Medical Equipment Procedure Code Equipment Code Equipment Original Text Equipment Identifier Dates Laser Equipment (Contracted) - [id number] Start: 02-01-2014 Comment on above: Description: SENDY WHITFIELD LASER Goals Date Patient Goal Desired Activity /State Functional Status Date Assessment Result Facility 10-22-2023 Functional status Bedrest;Bathroom Privil ege [facility] Work Phone: 09-06-2023 Functional status Ambulates;Chair [facility] Work Phone: 09-05-2023 Functional status Ambulates [facility] Work Phone: Mental Status Date Assessment Result Facility 12-16-2024 Cognitive function Level Of Cons ciousness Awake;Alert;Appropriate [facility] Work Phone: 10-21-2023 Cognitive function Voice/Name [facility] Work Phone: 09-06-2023 Cognitive function Appropriate;Cooperativ e [facility] Work Phone: 10-21-2022 Cognitive function Voice/Name [facility] Work Phone: Clinical Notes 04-12-2017 to 04-24-2025 Assessment & Plan Note - Cheryl Sutherland APRN-MICRO LAB ANALYST - 04/24/2025 3:04 PM EDTAssessment & Plan Note - CORTEZ Hutchinson - 04/24/2025 3:04 PM EDTCORTEZ Hutchinson - 04/24/2025 1:30 PM EDT Note Date & Type Note Facility 04-24-2025 Evaluation + Plan note Associated Problem(s): Urinary retention Stable. SP cath intact draining clear yellow urine. Plan for catheter change in May 2025. Encouraged fluids. [facility] Work Phone: 04-24-2025 Evaluation + Plan note Associated Problem(s): Bladder spasm Stable. Continue oxybutynin. Encourage fluids. [facility] Work Phone: 04-24-2025 Miscellaneous Notes Associate d Problem(s): Urinary retention Stable. SP cath intact draining clear yellow urine. Plan for catheter change in May 2025. Encouraged fluids. Associated Problem(s): Bladder spasm Stable. Continue oxybutynin. Encourage fluids. Associated Problem(s): Malignant neoplasm of prostate (Multi) Stable. Obtain PSA, order provided today. Discussed that depending on result may need to have conversation about Lupron injection or continued monitoring of PSA values. 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 Will need repeat CT in July 2025. Plan for repeat PSA and follow-up in office in 6 months. documented in this encounter [facility] Work Phone: 04-24-2025 Evaluation + Plan note Associated Problem(s): Malignant neoplasm of prostate (Multi) Stable. Obtain PSA, order provided today. Discussed that depending on result may need to have conversation about Lupron injection or continued monitoring of PSA values. 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 Will need repeat CT in July 2025. Plan for repeat PSA and follow-up in office in 6 months. [facility] Work Phone: 04-24-2025 History of Presen t illness Narrative Images from the original note were not included. Urology [facility] Note Subjective Patient ID: Rajat Guzmán is a 89 y.o. male who presents for No chief complaint on file.. History of Present Illness Rajat is a 89 y.o. male who presents for follow-up for history of prostate cancer and urinary retention. Patient diagnosed with prostate cancer on 06/14/2024, Prosperity 9 on the right and 9 on the left. He did have a course of Casodex and Lupron 45 mg. Last Lupron injection was on 07/12/2024. 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 Per last note with Dr. Zambrano on 07/12/2024, patient was aware of need for follow-up on these 2 items. At that visit with Dr. Zambrano, his PSA was 19.9. Suprapubic catheter was placed on 07/25/2024 for history of urinary retention. Due for SP cath change in May 2025. Patient had Rod placed for continuous incontinence but did not want to learn CIC. He denies hematuria, dysuria, urgency or frequency. Occasional leaking of urine from the urethra. He does wear pads as needed. Admits to hot flashes occasionally. History of bladder spasms - on oxybutynin with relief of symptoms. Past Medical & Surgical History Medical History[1] Surgical History[2] Review of Systems: A 12 point review of systems was completed and otherwise negative unless noted in the HPI Physical Exam General: Well developed, well nourished, alert and cooperative, appears in no acute distress Eyes: Non-injected conjunctiva, sclera clear, no proptosis Cardiac: Extremities are warm and well perfused. No edema, cyanosis or pallor. Lungs: Breathing is easy, non-labored. Speaking in clear and complete sentences. Normal diaphragmatic movement. Abdomen: soft NT with BSP, no CVA tenderness. SP cath intact. MSK: Ambulatory with steady gait, unassisted Neuro: alert and oriented to person, place and time Psych: Demonstrates good judgement and reason, without abnormal affect or abnormal behaviors. Skin: no obvious lesions, no rashes Objective LABS No results found for this visit on 04/24/25. Imaging Problem List Items Addressed This Visit Urinary retention Current Assessment & Plan Stable. SP cath intact draining clear yellow urine. Plan for catheter change in May 2025. Encouraged fluids. Malignant neoplasm of prostate (Multi) Current Assessment & Plan Stable. Obtain PSA, order provided today. Discussed that depending on result may need to have conversation about Lupron injection or continued monitoring of PSA values. 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 Will need repeat CT in July 2025. Plan for repeat PSA and follow-up in office in 6 months. Bladder spasm Current Assessment & Plan Stable. Continue oxybutynin. Encourage fluids. Other Visit Diagnoses Prostate cancer (Multi) - Primary Relevant Orders PSA Follow Up In Urology PSA CORTEZ Hutchinson 04/24/25 3:04 PM [1] Past Medical History: Diagnosis Date BPH (benign prostatic hyperplasia) Cataract Heart disease Hiatal hernia [2] History reviewed. No pertinent surgical history. documented in this encounter [facility] Work Phone: 02-26-2025 History of Presen t illness Narrative Patient ID: Rajat Guzmán is a 89 y.o. male. Procedures The patient was prepped and draped in the standard surgical fashion. A 10cc syringe was used to deflate the balloon in the current Rod catheter. Upon deflation, the Rod was removed intact and disposed of. Betadine swab was used to clean the meatus. Lidocaine jelly was instilled into the urethra. A 16 [place] Rod was placed, with urine return into catheter tubing, the 10cc balloon was then inflated and checked for position. The catheter was then irrigated with a mixture of Betadine 5 ml and Saline 500 ml. A leg bag was then attached. FOLLOW UP ROD CHANGE IN 6 WEEKS Cosigned by Jian Jiménez MD MPH at 02/27/2025 4:24 PM EDT documented in this encounter [facility] Work Phone: 01-03-2025 History of Presen t illness Narrative Patient ID: Rajat Guzmán is a 89 y.o. male. Procedures The patient was prepped and draped in the standard surgical fashion. A 10cc syringe was used to deflate the balloon in the current Rod catheter. Upon deflation, the Rod was removed and disposed of. Betadine swab was used to clean the meatus. Lidocaine jelly was instilled into the urethra. A 16 [place] African Rod was placed with a 10cc balloon which was inflated. This was then irrigated with a mixture of Betadine 5 ml and Saline 500 ml. A plug was then attached. SIZE 16FR ROD PLACED FOLLOW UP ROD CHANGE IN 6 WEEKS documented in this encounter [facility] Work Phone: 12-13-2024 History of Presen t illness Narrative Patient ID: Rajat Guzmán is a 89 y.o. male. Procedures The patient was prepped using a Betadine solution. Lidocaine jelly was instilled into the urethra. The flexible cystoscope was sterilely inserted into the urethra and formal cystoscopy performed in a systematic fashion. . For detailed findings of the procedure, please see Dr. Zambrano remarks below CIPRO 250MG POBID TIMES 3 DAYS GIVEN NO MASS. NO MUCOUS. NO STONE. TURP DEFECT SP CHANGED SMITH CLAMP TRIAL STOP DITROPAN TRIAL OF GEMTESA Suprapubic tube change Area was prepped with betadine. The old suprapubic tube was deflated and removed. Lidocaine jelly used to lubricate the tract. New Rod inserted through the suprapubic tract into the bladder. Catheter irrigated with betadine solution to verify proper placement. Rod balloon then inflated with 10 cc sterile water. New bag placed to drain SIZE 16FR ROD PLACED documented in this encounter [facility] Work Phone: 12-06-2024 History of Presen t illness Narrative Subjective Patient ID: Rajat Guzmán is a 89 y.o. male. HPI Patient is here for a routine SP change. Patient complains of chronic leaking. Hx of prostate cancer. Prosperity 9. CT showed No evidence of METS but did show lung lesion and pancreatic cyst-PATIENT AWARE FOR FOR OF FOLLOW_UP. . Most recent PSA was 19.9. . No recent sx. He does not want to learn CIC. ED is chronic. Review of Systems Constitutional: Negative for chills and fever. HENT: Negative. Eyes: Negative. Respiratory: Negative for cough and shortness of breath. Cardiovascular: Negative for chest pain and leg swelling. Gastrointestinal: Negative for nausea. Endocrine: Negative. Genitourinary: Negative for difficulty urinating. Negative except for documented in HPI Allergic/Immunologic: Negative. Neurological: Alert & oriented X 3 Hematological: Denies blood thinners Psychiatric/Behavioral: Negative. Objective Physical Exam Vitals and nursing note reviewed. Pulmonary: Effort: Pulmonary effort is normal. Abdominal: Palpations: Abdomen is soft. Tenderness: There is no abdominal tenderness. Genitourinary: Comments: Kidneys non palpable bilaterally Bladder non palpable or tender Neurological: Mental Status: He is alert. Assessment/Plan Diagnoses and all orders for this visit: Urinary retention Bladder spasm Malignant neoplasm of prostate (Multi) All available PSA values reviewed, Options discussed. Questions answered. Diet changes for prostate health discussed and educational information given. Pros/Cons of prostate health supplements discussed. Treatment options for LUTS reviewed Discussed timed voiding. Discussed fluid and caffeine intake Treatment options for ED reviewed. Lifestyle change to help prevent UTIs discussed. Encouraged fluid intake. F/U 1 week cysto SP Tube was changed and irrigated. 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 male. Procedures Suprapubic tube change Area was prepped with betadine. The old suprapubic tube was deflated and removed. Lidocaine jelly used to lubricate the tract. New Rod inserted through the suprapubic tract into the bladder. Catheter irrigated with betadine solution to verify proper placement. Rod balloon then inflated with 10 cc sterile water. New bag placed to drain SIZE 16FR ROD PLACED FOLLOW S/P CHANGE IN 6 WEEKS [facility] 1(930) 384-834809-24-2024 Hospital Discharge instructions* Discharge Instructions* Char Zhu RN - 07/25/2024 12:33 PM EDT DO NOT plug catheter until you have seen Dr Zambrano for follow up visit and they have made first catheter change. * Attachments The following attachments cannot be sent through Care Everywhere. * How to Care for Your Suprapubic Urinary Catheter (Ukrainian) documented in this [facility] Work Phone: 1(688) 732-298809-24-2024 Attending History and physical note* Asmita Zambrano MD - 07/25/2024 9:03 AM EDT H&P reviewed. The patient was examined and there are no changes to the H&P. Source Note - Asmita Zambrano MD - 07/12/2024 3:30 PM EDT Subjective Patient ID: Rajat Guzmán is a 89 y.o. male. HPI Patient is here for CT results and Lupron injection. Recent sx of prostate cancer. Prosperity 9. CT showed No evidence of METS but did show lung lesion and pancreatic cyst-PATIENT AWARE FOR FOR OF FOLLOW_UP. . Most recent PSA was 19.9. . Hx of urinary retention. He had rod placed last visit due to continuous incontinence. No recent sx. He does not want to learn CIC. ED is chronic. Review of Systems Constitutional: Negative for chills and fever. HENT: Negative. Eyes: Negative. Respiratory: Negative for cough and shortness of breath. Cardiovascular: Negative for chest pain and leg swelling. Gastrointestinal: Negative for nausea. Endocrine: Negative. Genitourinary: Negative for difficulty urinating. Negative except for documented in HPI Allergic/Immunologic: Negative. Neurological: Alert & oriented X 3 Hematological: Denies blood thinners Psychiatric/Behavioral: Negative. Objective Physical Exam Vitals and nursing note reviewed. Pulmonary: Effort: Pulmonary effort is normal. Abdominal: Palpations: Abdomen is soft. Tenderness: There is no abdominal tenderness. Genitourinary: Comments: Kidneys non palpable bilaterally Bladder non palpable or tender Neurological: Mental Status: He is alert. Assessment/Plan Diagnoses and all orders for this visit: Malignant neoplasm of prostate (Multi) Abnormal digital rectal exam Elevated PSA Retention of urine All available PSA values reviewed, Options discussed. Questions answered. Lupron 45mg IM Given CT reviewed-no mets Diet changes for prostate health discussed and educational information given. Pros/Cons of prostatehealth supplements discussed. Treatment options for LUTS reviewed Discussed SP tube-Will scheduled Patient has Rod now Treatment options for ED reviewed-Observe Lifestyle change to help prevent UTIs discussed. Encouraged fluid intake. F/U SP tube placement [facility] Work Phone: 1(834) 458-416109-24-2024 History and physical note* Asmita Zambrano MD - 07/25/2024 9:03 AM EDT H&P reviewed. The patient was examined and there are no changes to the H&P. Source Note - Asmita Zambrano MD - 07/12/2024 3:30 PM EDT Subjective Patient ID: Rajat Guzmán is a 89 y.o. male. HPI Patient is here for CT results and Lupron injection. Recent sx of prostate cancer. Prosperity 9. CT showed No evidence of METS but did show lung lesion and pancreatic cyst-PATIENT AWARE FOR FOR OF FOLLOW_UP. . Most recent PSA was 19.9. . Hx of urinary retention. He had rod placed last visit due to continuous incontinence. No recent sx. He does not want to learn CIC. ED is chronic. Review of Systems Constitutional: Negative for chills and fever. HENT: Negative. Eyes: Negative. Respiratory: Negative for cough and shortness of breath. Cardiovascular: Negative for chest pain and leg swelling. Gastrointestinal: Negative for nausea. Endocrine: Negative. Genitourinary: Negative for difficulty urinating. Negative except for documented in HPI Allergic/Immunologic: Negative. Neurological: Alert & oriented X 3 Hematological: Denies blood thinners Psychiatric/Behavioral: Negative. Objective Physical Exam Vitals and nursing note reviewed. Pulmonary: Effort: Pulmonary effort is normal. Abdominal: Palpations: Abdomen is soft. Tenderness: There is no abdominal tenderness. Genitourinary: Comments: Kidneys non palpable bilaterally Bladder non palpable or tender Neurological: Mental Status: He is alert. Assessment/Plan Diagnoses and all orders for this visit: Malignant neoplasm of prostate (Multi) Abnormal digital rectal exam Elevated PSA Retention of urine All available PSA values reviewed, Options discussed. Questions answered. Lupron 45mg IM Given CT reviewed-no mets Diet changes for prostate health discussed and educational information given. Pros/Cons of prostatehealth supplements discussed. Treatment options for LUTS reviewed Discussed SP tube-Will scheduled Patient has Rod now Treatment options for ED reviewed-Observe Lifestyle change to help prevent UTIs discussed. Encouraged fluid intake. F/U SP tube placement [facility] 1([phone]) 875-861609-23-2024 Note* Preprocedure Instructions - Inga Ceron RN - 07/24/2024 1:24 PM EDT No outpatient medications have been marked as taking for the 07/25/24 encounter (Hospital Encounter). 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 male. HPI Patient is here for CT results and Lupron injection. Recent sx of prostate cancer. Prosperity 9. CT showed No evidence of METS but did show lung lesion and pancreatic cyst-PATIENT AWARE FOR FOR OF FOLLOW_UP. . Most recent PSA was 19.9. . Hx of urinary retention. He had rod placed last visit due to continuous incontinence. No recent sx. He does not want to learn CIC. ED is chronic. Review of Systems Constitutional: Negative for chills and fever. HENT: Negative. Eyes: Negative. Respiratory: Negative for cough and shortness of breath. Cardiovascular: Negative for chest pain and leg swelling. Gastrointestinal: Negative for nausea. Endocrine: Negative. Genitourinary: Negative for difficulty urinating. Negative except for documented in HPI Allergic/Immunologic: Negative. Neurological: Alert & oriented X 3 Hematological: Denies blood thinners Psychiatric/Behavioral: Negative. Objective Physical Exam Vitals and nursing note reviewed. Pulmonary: Effort: Pulmonary effort is normal. Abdominal: Palpations: Abdomen is soft. Tenderness: There is no abdominal tenderness. Genitourinary: Comments: Kidneys non palpable bilaterally Bladder non palpable or tender Neurological: Mental Status: He is alert. Assessment/Plan Diagnoses and all orders for this visit: Malignant neoplasm of prostate (Multi) Abnormal digital rectal exam Elevated PSA Retention of urine All available PSA values reviewed, Options discussed. Questions answered. Lupron 45mg IM Given CT reviewed-no mets Diet changes for prostate health discussed and educational information given. Pros/Cons of prostatehealth supplements discussed. Treatment options for LUTS reviewed Discussed SP tube-Will scheduled Patient has Rod now Treatment options for ED reviewed-Observe Lifestyle change to help prevent UTIs discussed. Encouraged fluid intake. F/U SP tube placement documented in this [facility] Work Phone: 1([phone]) 242-629808-28-2024 History of Present illness Narrative* Asmita Zambrano MD - 06/28/2024 1:30 PM EDT Subjective Patient ID: Rajat Guzmán is a 89 y.o. male. HPI Patient is here for Trus results. Path showed prostate cancer. Soham 9 on left and right side. Most recent PSA was 19.9. Chronic BPH sx are mild and stable. Denies urgency and frequency. Denies dysuria. Denies hematuria. Nocturia x1. No medication for LUT'S. Hx of urinary retention. No recent sx.He does not want to learn CIC. He was given Smith Clamp. ED is chronic. Review of Systems Constitutional: Negative for chills and fever. HENT: Negative. Eyes: Negative. Respiratory: Negative for cough and shortness of breath. Cardiovascular: Negative for chest pain and leg swelling. Gastrointestinal: Negative for nausea. Endocrine: Negative. Genitourinary: Negative for difficulty urinating. Negative except for documented in HPI Allergic/Immunologic: Negative. Neurological: Alert & oriented X 3 Hematological: Denies blood thinners Psychiatric/Behavioral: Negative. Objective Physical Exam Vitals and nursing note reviewed. Constitutional: General: He is not in acute distress. Appearance: Normal appearance. Pulmonary: Effort: Pulmonary effort is normal. Abdominal: Palpations: Abdomen is soft. Tenderness: There is no abdominal tenderness. Genitourinary: Comments: Kidneys non palpable bilaterally Bladder non palpable or tender Scrotum no mass, No hydrocele Epididymis- No spermatocele. Non Tender. Testicles: No mass. SOFT Urethra: No discharge. Continuous leakage Penis within normal limits... No lesions. No phimosis Prostate - deferrred Neurological: Mental Status: He is alert. Assessment/Plan Diagnoses and all orders for this visit: Elevated PSA Abnormal digital rectal exam Malignant neoplasm of prostate (Multi) All available PSA values reviewed, Options discussed. Questions answered. Path report reviewed. Tx Options discussed. Pros/cons of tx options reviewed. Questions answered Casodex Rx given Return for Lupron 45mg CT abd/pelvis scheduled given Soham 9 Diet changes for prostate health discussed and educational information given. Pros/Cons of prostatehealth supplements discussed. Treatment options for LUTS reviewed Discussed SP tube-Will schedule Rod placed today for contiunous incontinence Discussed timed voiding. Discussed fluid and caffeine intake Lifestyle change to help prevent UTIs discussed. Encouraged fluid intake. [facility] Work Phone: 1(548) 491-987508-14-2024 History of Present illness Narrative* Waleska Galdamez MA - 06/14/2024 1:00 PM EDT Patient ID: Rajat Guzmán is a 89 y.o. male. Procedures The patient was placed on his side. Lidocaine jelly was injected into the anus. We inserted the ultrasound probe into the rectum. The prostate was identified and the ultrasound performed. We then took samples under the ultrasound guidance. For details of the ultrasound findings and the number of cores taken, please see the remarks section of this note. The patient tolerated the procedure well. There were no complications. He was instructed on post procedure care. PROBE B USED 6 CORES FROM SITE A-RIGHT PROSTATE TISSUE, 6 CORES FROM SITE B-LEFT PROSTATE TISSUE PSA 19.90 (05/17/2024) ABNORMAL LANDON. [facility] Work Phone: 1(493) 332-485607-17-2024 History of Present illness Narrative* Waleska Galdamez MA - 05/17/2024 1:00 PM EDT Patient ID: Rajat Guzmán is a 89 y.o. male. Procedures The patient was prepped using a Betadine solution. Lidocaine jelly was instilled into the urethra. The flexible cystoscope was sterilely inserted into the urethra and formal cystoscopy performed in asystematic fashion. . For detailed findings of the procedure, please see Dr. Zambrano remarks below CIPRO 250MG POBID TIMES 3 DAYS GIVEN NO MASS. NO STONE. NO OBSTRUCTION OBVIOUS FROM PROSTATE. TRABECULATION PRESENT DISCUSSED SP VOIDING TRIAL TODAY CIC DISCUSSED-PATIENT DECLINES F/U 1 WEEK TO CHECK PVR AND DISCUSS. [facility] Work Phone: [phone]) 479-367106-26-2024 History of Present illness Narrative* Asmita Zambrano MD - 04/26/2024 1:45 PM EDT Subjective Patient ID: Rajat Guzmán is a 89 y.o. male. HPI Patient is here to establish for second opinion for BPH. Hx of incomplete emptying. He was seeing [facility] prior. He states he was asked to learn CIC but he does not want to do this. He does not want permanent rod either. . Rod was placed 6 weeks ago and still has this today. . Hx of TURP last year at [place]. This did not help urinary sx. He was taking Finasteride and Flomax in the past. Hx of kidney stones. No recent sx in many years. Review of Systems Constitutional: Negative for chills and fever. HENT: Negative. Eyes: Negative. Respiratory: Negative for cough and shortness of breath. Cardiovascular: Negative for chest pain and leg swelling. Gastrointestinal: Negative for nausea. Endocrine: Negative. Genitourinary: Negative for difficulty urinating. Negative except for documented in HPI Allergic/Immunologic: Negative. Neurological: Alert & oriented X 3 Hematological: Denies blood thinners Psychiatric/Behavioral: Negative. Objective Physical Exam Vitals and nursing note reviewed. Constitutional: General: He is not in acute distress. Appearance: Normal appearance. Pulmonary: Effort: Pulmonary effort is normal. Abdominal: Tenderness: There is no abdominal tenderness. Genitourinary: Comments: Kidneys non palpable bilaterally Bladder non palpable or tender Scrotum no mass, No hydrocele Epididymis- No spermatocele. Non Tender. Testicles: No mass Urethra: No discharge Penis within normal limits... No lesions Prostate - Hard rectal mass that appears to be part of the prostate but very abnormal LANDON Seminal Vesicals: No mass. Rod draining Clear urine Sphincter tone: normal Neurological: Mental Status: He is alert. Assessment/Plan Diagnoses and all orders for this visit: Benign prostatic hyperplasia with lower urinary tract symptoms, symptom details unspecified Retention of urine Nocturia All available PSA values reviewed, Options discussed. Questions answered. PSA ordered due to abnormal LANDON MRI ordered-Could not tell id rectal or prostate mass Diet changes for prostate health discussed and educational information given. Pros/Cons of prostatehealth supplements discussed. Treatment options for LUTS reviewed Will start plugging Rod Discussed SP tube Resume Flomax-Rx given Discussed timed voiding. Discussed fluid and caffeine intake Treatment options for ED reviewed-Observe Lifestyle change to help prevent UTIs discussed. Encouraged fluid intake. F/U Cysto and discuss voiding trial but will need F/U next day to check PVR documented in this [facility] Work Phone: 1(957) 433-439812-21-2023 Progress note Author Faisal Barth [facility] October 21, 2023 7:23am Note Date/Time October 21, 2023 7:23am [facility] Medical Records Department [address] [place] [address] Progress Note - Urology 10/21/23722 MR#: [id number] Acct: [id number] Name: RAJAT GUZMÁN Rep #:[id number] : 1935 88 From: Faisal Barth MD PCP: Dr. John Mckeon, DO Status:[facility] Location: [address] Subjective Subjective Status post TURP for regrowth and obstruction urine still bloody continue with CBI probably discharge tomorrow Objective Data Objective Data Vital Signs: Vital Signs Temp Pulse Resp BP Pulse Ox O2 Del Method 98.8 F 72 18 127/62 H 95 Room Air 10/21/23 03:36 10/21/23 03:36 10/21/23 03:36 10/21/23 03:36 10/21/23 03:36 10/21/23 03:36 Oxygen Delivery Method Room Air Weight: 53 kg Body Mass Index (BMI) 20.7 Intake & Output: Intake and Output for Last 24 Hours 10/19/23 10/20/23 10/21/23 23:59 23:59 23:59 Intake Total 884.00 / 884.00 528.75 / 528.75 Output Total 7150 / 7150 900 / 900 Balance -6266.00 / -6266.00 -371.25 / -371.25 10/21/23722 <Electronically signed by Faisal Barth MD> Cosigner Signature (if applicable): CC: ~ Signed [facility] Work Phone: 1(732) 761-607012-20-2023 Discharge summary Author Faisal Barth [facility] October 20, 2023 1:07pm Note Date/Time October 20, 2023 1:07pm [facility] Medical Records Department [address] [place] [address] Instructions for Home/Discharge Instructions 10/20/23 1307 MR#: [id number] Acct: [id number] Name: RAJAT GUZMÁN Rep #:[id number] : 1935 88 From: Faisal Barth MD PCP: Dr. John Mckeon DO Status:[facility] Discharge Instructions Diet Discharge Diet: No restrictions Activity Discharge Activity: Return to Normal Activity and May Not Drive (while taking narcotic pain medications.) Dressing / Incision Call your doctor if you observe: Fever of 101 or Higher Follow Up Care Please Follow Up With: Faisal Barth MD When: Call [phone] for an appointment Test Results: Test results from this visit will be discussed in further detail at your follow- up appointment, if applicable. Discharge Plan Admission Attending Provider: Faisal Barth Primary Care Provider: John Mckeon Discharge Orders/Prescriptions Prescriptions: No Action furosemide 20 mg tablet 20 mg PO Q OTHER DAY PRN (Reason: edema) tamsulosin 0.4 mg capsule 0.4 mg PO DAILY finasteride 5 mg tablet 5 mg PO DAILY Patient Comments: TAKE 1 TABLET BY MOUTH ONCE DAILY aspirin 81 MG tablet,chewable 81 mg PO DAILY Hold Instructions: PREOP DUPIXANT 300 mg IM .Q2W nitroglycerin 0.4 mg tablet, sublingual 0.4 mg SUBLINGUAL Q5M PRN (Reason: Chest Pain) Qty: 25 3RF clopidogrel 75 mg tablet 75 mg PO DAILY Qty: 90 3RF Hold Instructions: PREOP Rx Instructions: prevent clotting carvedilol 3.125 mg tablet 3.125 mg PO BID Qty: 180 3RF Rx Instructions: must administer with a meal/food simvastatin 20 mg tablet See Rx Instructions .ROUTE .COMPLEX Qty: 90 3RF Dose Instruction: TAKE 1 TABLET BY MOUTH AT BEDTIME FOR CHOLESTEROL Rx Instructions: TAKE 1 TABLET BY MOUTH AT BEDTIME FOR CHOLESTEROL Entresto 49-51 mg tablet 1 tab PO BID Qty: 180 4RF Other Ambulatory Orders: 12 Lead EKG (Routine) Timeframe: 20231012 Location: None Selected Ordered By: Dr. Zacarias Valdes Referrals / Follow Up: John Mckeon DO [Primary Care Provider] - Disposition Disposition (needs filled in before D/C Order can be placed): Home, Self Care 10/20/23 1307<Electronically signed by Faisal Barth MD>Faisal Barth MD CC: Dr. John Mckeon, DO ~ Signed [facility] Work Phone: 1(184) 309-659112-20-2023 History and physical note Author Faisal Barth [facility] October 20, 2023 1:07pm Note Date/Time October 20, 2023 1:07pm [facility] Medical Records Department [address] [place] [address] History & Physical Exam 10/20/23 1306 MR#: [id number] Acct: [id number] Name: RAJAT GUZMÁN Rep #:[id number] : 1935 88 From: Faisal Barth MD PCP: Dr. John Mckeon, Status:[facility] Location: [place] [address] HPI - General General Date of Service: 10/20/23 Chief Complaint: BPH with obstruction HPI Narrative RAJAT GUZMÁN, is a 88 M who presents for a transurethral resection of prostate [facility] Medical History (Updated 10/11/23 @ 14:18 by Suzie Wiseman) Abnormal result of cardiovascular function study, unspecified Angina pectoris Atherosclerotic heart disease of [place] coronary artery without angina pectoris Benign prostatic hypertrophy Cancer Cardiology follow-up encounter Cardiomyopathy, ischemic Chest pain, precordial Chronic systolic congestive heart failure 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 Dyspnea Easy bruising Eczema Elevated troponin Essential hypertension Excessive bleeding Family history of CVA Family history of hypertension Fatigue FH: sudden cardiac (SCD) General weakness GERD (gastroesophageal reflux disease) High cholesterol High risk medication use History of CHF (congestive heart failure) History of echocardiogram History of heart attack History of placement of internal cardiac defibrillator History of stress test HLD (hyperlipidemia) HTN (hypertension) Hypokalemia Implantable cardioverter-defibrillator (ICD) at end of battery life Iron deficiency anemia Non-smoker Old myocardial infarction Orchitis of right testicle Otitis media Presence of stent in coronary artery (~12/28/18) Pure hypercholesterolemia SBO (small bowel obstruction) Sepsis Wears glasses Home Medications aspirin 81 mg chewable tablet 81 mg PO DAILY heart health 03/05/16 [History Last Taken 10/09/23] nitroglycerin 0.4 mg sublingual tablet 0.4 mg sublingual Q5M PRN Chest Pain #25 tabs 02/17/22 [Rx Last Taken Unknown] finasteride 5 mg tablet 5 mg PO DAILY 03/05/22 [History Last Taken 10/20/23] tamsulosin 0.4 mg capsule 0.4 mg PO DAILY 03/05/22 [History Last Taken 10/19/23] furosemide 20 mg tablet 20 mg PO Q OTHER DAY PRN edema 08/05/22 [History Last Taken Unknown] clopidogrel 75 mg tablet 75 mg PO DAILY #90 tabs 03/04/23 [Rx Last Taken 10/09/23] carvedilol 3.125 mg tablet 3.125 mg PO BID #180 tabs 06/17/23 [Rx Last Taken 10/20/23] simvastatin 20 mg tablet See Rx Instructions .Route .COMPLEX #90 tabs 09/13/23 [Rx Last Taken Unknown] DUPIXANT 300 mg IM .Q2W 10/11/23 [History Last Taken Unknown] sacubitril 49 mg-valsartan 51 mg tablet (Entresto) 1 tab PO BID #180 tabs 10/13/23 [Rx Last Taken 10/20/23] Allergy/AdvReac Type Severity Reaction Status Date / Time morphine Allergy Intermediate Rash Verified 10/20/23 11:48 zolpidem tartrate AdvReac Intermediate CONFUSION Verified 10/20/23 11:48 [From Ambien] Family History (Updated 07/09/23 @ 13:38 by Alexia Hendricks) Mother CAD (coronary artery disease) CVA (cerebral vascular accident) Myocardial infarction, Onset Age: 67 Hypertension Brother CAD (coronary artery disease) Hypertension Cancer Lung CA Myocardial infarction, Onset Age: 73 Father Myocardial infarction, Onset Age: 77 Daughter Cancer Son Myocardial infarction, Onset Age: 46 Other Cardiomyopathy, ischemic Chronic systolic congestive heart failure Fatigue General weakness Iron deficiency anemia Surgical History History of cardiac catheterization History of hernia repair History of left heart catheterization History of prostate surgery Hx of colonoscopy Hx of surgical procedure Presence of coronary artery bypass graft stent (~12/28/18) S/P TURP (status post transurethral resection of prostate) Social History household members: spouse Smoking Status: Never smoker alcohol intake: never substance use type: does not use caffeine: Yes Type: carbonated beverages and coffee Number of servings: 1 what type of physical activity do you participate in: none seatbelt use: always do you feel safe at home: Yes Vital Signs Vital Signs Vital Signs: 10/20/23 11:50 10/20/23 11:55 Temperature 98.1 F Temperature Source Temporal Pulse Rate 59 L Respiratory Rate 16 Respiratory Pattern Normal Blood Pressure 141/54 H Blood Pressure Mean 83 Blood Pressure Source Monitor Blood Pressure Position Semi-Fowlers Blood Pressure Location Left Arm Pulse Ox 100 Oxygen Delivery Method Room Air Weight Weight: 53 kg Body Mass Index (BMI) 20.7 10/20/23 1307 <Electronically signed by Faisal Barth MD> Cosigner Signature (if applicable): CC: Dr. Faisal Barth MD; Dr. John Mckeon, DO~ Signed [facility] Work Phone: 1(802) 176-593512-20-2023 Procedure [facility] 10-12-2023 Hospital Discharge instructionsAmbulatory Orders* 12 Lead EKG [[facility]] Time Frame: 10/12/23, Location: None Selected [facility] Work Phone: 1(418) 757-208211-06-2023 Discharge summary Author Manisha Varela [facility] September 06, 2023 3:13pm Note Date/Time September 06, 2023 3 :07pm [facility] Medical Records Department [address] [place] [address] Instructions for Home/Discharge Instructions 09/06/23 1504 MR#: [id number] Acct: [id number] Name: RAJAT GUZMÁN Rep #:[id number] : 1935 88 From: Manisha Varela MD PCP: Dr. John Mckeon, Status:[facility] Discharge Instructions Diet Discharge Diet: - (-DASH diet, 3000 mg sodium restriction, 2 L fluid restriction) Activity Discharge Activity: - (Insert activity as tolerated) Follow Up Care Test Results: Test results from this visit will be discussed in further detail at your follow- up appointment, if applicable. Discharge Plan Admission Admit Date/Time: 09/04/23 18:20 Primary Reason for Your Visit: Abdominal pain, generalized weakness Attending Provider: Manisha Varela Primary Care Provider: John Mckeon Consulting Providers: Manisha Varela; Natanael Nowak Instructions Patient Instructions: ED Rod Catheter, Care Additional Instructions / Restrictions: DISCHARGE INSTRUCTIONS PLEASE READ *Please take this with you to your next doctors appointment* -You will be discharged on antibiotics for urinary tract infection, he will takeLevaquin every other day for total of 7 days. Your first dose was 09/06 so your next dose will be 09/08 -You will be discharged with a rod catheter. Please follow-up with urology upon discharge. Please call their office to schedule hospital follow-up appointment upon discharge. -Please call your primary care provider's office upon discharge to schedule a hospital follow up within 1 week. -For any concerning signs or symptoms please call 911 or proceed to the nearest emergency department Discharge Orders/Prescriptions Prescriptions: New levofloxacin 750 mg Tablet 750 mg PO Q48H 7 Days Qty: 3 0RF Rx Instructions: Took 09/06 dose in hospital. Next dose 09/08 Continued furosemide 20 mg tablet 20 mg PO Q OTHER DAY tamsulosin 0.4 mg capsule 0.4 mg PO DAILY finasteride 5 mg tablet 5 mg PO DAILY Patient Comments: TAKE 1 TABLET BY MOUTH ONCE DAILY aspirin 81 MG tablet,chewable 81 mg PO DAILY Hold Instructions: Resume on 11/06/22. nitroglycerin 0.4 mg tablet, sublingual 0.4 mg SUBLINGUAL Q5M PRN (Reason: Chest Pain) Qty: 25 3RF simvastatin 20 mg tablet See Rx Instructions .ROUTE .COMPLEX Qty: 90 3RF Dose Instruction: TAKE 1 TABLET BY MOUTH AT BEDTIME FOR CHOLESTEROL Rx Instructions: TAKE 1 TABLET BY MOUTH AT BEDTIME FOR CHOLESTEROL clopidogrel 75 mg tablet 75 mg PO DAILY Qty: 90 3RF Hold Instructions: Resume on 11/06/22. Rx Instructions: prevent clotting carvedilol 3.125 mg tablet 3.125 mg PO BID Qty: 180 3RF Rx Instructions: must administer with a meal/food Entresto 49-51 mg tablet 1 tab PO BID Qty: 180 3RF Discontinued diphenhydramine-acetaminophen [Tylenol PM Extra Strength] 25-500 mg tablet 2 tab PO QHS PRN (Reason: Insomnia) Referrals / Follow Up: Faisal Barth MD [Med Staff - Active Staff] - ( -Please follow-up with urology upon discharge. Please call their office to schedule hospital follow-up appointment upon discharge.) John Mckeon DO [Primary Care Provider] - Within 1 Week Disposition Disposition (needs filled in before D/C Order can be placed): Home, Self Care 09/06/23 1513<Electronically signed by Manisha Varela MD>Manisha Varela MD CC: Dr. John Mckeon DO; Dr. Natanael Nowak MD; Dr. Manisha Varela MD ~ Signed [facility] Work Phone: 1(203) 978-854011-05-2023 Progress note Author Natanael Nowak [facility] September 05, 2023 9:01am Note Date/Time September 05, 2023 9 :01am [facility] Medical Records Department [address] [place] [address] Progress Note - Hospitalist 09/05/23 0900 MR#: [id number] Acct: [id number] Name: RAJAT GUZMÁN [place] Rep #:[id number] : 1935 88 From: Natanael martinez MD PCP: Dr. John Mckeon DO Status:[facility] Location: [place] [address] Subjective Subjective Doing well, feels better today. Objective Data Objective Data Vital Signs: Vital Signs Temp Pulse Resp BP Pulse Ox O2 Del Method 97.9 F 62 18 110/53 L 95 Room Air 09/05/23 02:29 09/05/23 02:29 09/05/23 02:29 09/05/23 02:29 09/05/23 02:29 09/05/23 02:29 Oxygen Delivery Method Room Air Weight: 108 lb 11.006 oz Body Mass Index (BMI) 19.2 Intake & Output: Intake and Output for Last 24 Hours 09/04/23 09/05/23 09/06/23 04:59 03:59 03:59 Intake Total Output Total 400 / 400 Balance -400 / -400 Lab / Micro Data 09/05/23 07:10 09/04/23 16:15 Labs: Laboratory Results - last 24 hr 09/04/23 15:48: Urine Color Yellow, Urine Clarity Sl. Cloudy, Urine pH 6.0, Ur Specific Otto 1.020, Urine Protein 15 H, Urine Glucose (UA) Normal, Urine Ketones 50 H, Urine Occult Blood 150 H, Urine Nitrite Positive H, Urine Bilirubin Negative, Urine Urobilinogen Normal, Ur Leukocyte Esterase 25 H, UrineRBC 0-5 SEEN, Urine WBC 5-10 SEEN, Ur Squamous Epith Cells 0 SEEN, Urine Bacteria 1+, Urine Mucus 0 SEEN 09/04/23 16:15: WBC 13.2 H, RBC 3.84 L, Hgb 11.3 L, Hct 35.7 L, MCV 93.0, MCH 29.4, MCHC 31.7 L, RDW Std Deviation 49.5 H, RDW Coeff of Arleen 14.6, Plt Count 208, MPV 11.7, Immature Gran % (Auto) 0.400, Neut % (Auto) 77.7 H, Lymph % (Auto) 11.1 L, Iroquois % (Auto) 10.2 H, Eos % (Auto) 0.2, Baso % (Auto) 0.4, Absolute Neuts (auto) 10.3 H, Absolute Lymphs (auto) 1.47, Nucleated RBC % 0, Sodium 134 L, Potassium 4.2, Chloride 101, Carbon Dioxide 17.0 L, Anion Gap 16 H, BUN 35 H, Creatinine 1.39 H, Estim Creat Clear Calc 27.02, Est GFR (MDRD) Af Amer 62, Est GFR (MDRD) Non-Af 51 L, BUN/Creatinine Ratio 25.2 H, Glucose 94, Calcium 8.7, Total Bilirubin 1.80 H, AST 10 L, ALT 11 L, Alkaline Phosphatase 54, Total Protein 7.2, Albumin 3.4, Globulin 3.8, Albumin/Globulin Ratio 0.9, Lipase 11 L 09/05/23 07:10: WBC 8.2, RBC 3.50 L, Hgb 10.3 L, Hct 32.7 L, MCV 93.4, MCH 29.4,MCHC 31.5 L, RDW Std Deviation 49.9 H, RDW Coeff of Arleen 14.6, Plt Count 183, MPV11.8, Immature Gran % (Auto) 0.200, Neut % (Auto) 64.8, Lymph % (Auto) 21.3, Iroquois % (Auto) 11.3 H, Eos % (Auto) 1.9, Baso % (Auto) 0.5, Absolute Neuts (auto)5.3, Absolute Lymphs (auto) 1.75, Nucleated RBC % 0 Radiography Diagnostic Testing: Radiology Impression Abdomen/Pelvis CT 09/04/23 16:40 IMPRESSION: Suspect bladder outlet obstruction with mild left ureteral dilatation and hydronephrosis, likely from the prostatic enlargement.. Electronically Signed: Leroy Barrett MD at 17:36 EDT Reading Location ID and State: [id number] / [employer] Tel , Service support , Chest X-Ray 09/04/23 16:52 IMPRESSION: No active disease. Electronically Signed: Leroy aBrrett MD at 17:27 EDT Reading Location ID and State: [id number] / [employer] , Service support , Physical Exam Narrative General: Alert, Oriented x3, Cooperative, No apparent distress HEENT: Atraumatic, PERRLA, EOMI, Normocephalic Oral: Moist Mucosa Neck: Supple, No JVD Lungs: Diminished, Normal air movement, No rhonchi, No wheeze, No rales Cardiovascular: Regular rate, Regular Rhythm, Normal S1, Normal S2, No murmurs Abdomen: Soft, Non Tender, Non-Distended, No Hepato-splenomegaly Extremities: No edema, Capillary Refill Less than 3 Seconds Skin: No rashes, No breakdown Musculoskeletal: No Tenderness to Palpation of Joints or Extremities Neurological: Cranial nerves II-XII grossly intact, Motor Exam 5/5 strength throughout, Sensory exam intact to light touch and pain Psych/Mental Status: Normal Affect, Appropriate Assessment & Plan Assessment/Plan (1) SINGH (acute kidney injury): (2) Atherosclerotic heart disease of [place] coronary artery without angina pectoris: QUALIFIERS: [place] vs. 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 -Rod catheter placed -Treat underlying infection -Will need follow with urology, if patient continues rapid improvement can consider outpatient follow-up versus inpatient -We will continue finasteride and tamsulosin in the event patient will be able to have Rod catheter removed in the future #SINGH -Suspect in part obstructive -Baseline creatinine 0.8-0.9, presently 1.39 -We will give very gentle hydration given his history and hold his Lasix with daily weights and I's and O's -If not improving can get further urine studies 09/05/2023: Awaiting lab work for this morning if significant improvement, can decrease IV fluids assuming p.o. intake is good #History of chronic heart failure with reduced ejection fraction with dual AICD -We will need to monitor fluid status closely -Daily weights, I's and O's -EF 11/08/2020 was 25% with wall motion abnormalities -Continue Coreg, unclear if patient is still taking Entresto, will need to be reevaluated once med list finalized #History of coronary artery disease with stenting -Continue aspirin, Plavix DVT: Heparin Charges/Coding Visit Charges Inpatient E&M: 93793 Subs Hosp L2 09/05/23 0901 <Electronically signed by Natanael Nowak MD> Cosigner Signature (if applicable): CC: ~ Signed [facility] Work Phone: 1(131) 856-130811-04-2023 History and physical note Author Manisha Varela [facility] September 04, 2023 6:33pm Note Date/Time September 04, 2023 6 :23pm [facility] Medical Records Department [facility] [place] [address] H&P Exam - Hospitalist 09/04/23 1820 MR#: [id number] Acct: [id number] Name: RAJAT GUZMÁN Rep #:[id number] : 1935 88 From: Manisha Varela MD PCP: Dr. John Mckeon, DO Status:ADM [facility]ST[facility] Location: [address] HPI - General General Date of Admission: 09/04/23 Date of Service: 09/04/23 Chief Complaint: Gen weakness, abd pain, confusion HPI Narrative RAJAT GUZMÁN, is a 88-year-old male history of coronary artery disease, heart failure with reduced ejection fraction with dual AICD, BPH, hypertension presented to [facility] 09/04/2023 with generalized weakness. 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 In the ED white blood cell count 13.2, creatinine 1.39 up from baseline of 0.8?0.9, and UA suggestive of UTI. Patient started on fluids and Rocephin and CT abdomen pelvis obtained which demonstrated suspected bladder outlet obstruction with mild left ureteral dilation and hydronephrosis likely from prostatic enlargement. He was straight cathed x1 but given outlet obstruction Dr. Barth was consulted who recommended Rod catheter placement. Hospitalist contacted for admission due to patient's generalized weakness and confusion and inability to care for self at home in addition to his acute UTI and SINGH. Patient evaluated with family at bedside. Reportedly he had a stricture dilation 3 to 4 days ago and since then has been having some abdominal pain and has had difficulty urinating and only gets dribbles out. Was having small bowelmovements every time he tried to urinate but took antidiarrhea medication and has not had a bowel movement in the past couple days but his abdominal pain was getting worse and he was not able to get much of any urine out. Today he was feeling generally ill, had worsened abdominal pain and was weak and somewhat confused and he was brought to the ED as above. Patient already feeling better after Rod placement and antibiotics. Denies fevers or chills at home, denies other complaints at this time. [facility] Medical History (Updated 09/04/23 @ 18:[address] 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 Dyspnea Easy bruising Elevated troponin Essential hypertension Excessive bleeding Family history of CVA Family history of hypertension Fatigue FH: sudden cardiac (SCD) General weakness GERD (gastroesophageal reflux disease) High cholesterol High risk medication use History of CHF (congestive heart failure) History of echocardiogram History of placement of internal cardiac defibrillator History of stress test HLD (hyperlipidemia) HTN (hypertension) Hypokalemia Implantable cardioverter-defibrillator (ICD) at end of battery life Iron deficiency anemia Old myocardial infarction Orchitis of right testicle Otitis media Presence of stent in coronary artery (~12/28/18) Pure hypercholesterolemia SBO (small bowel obstruction) Sepsis Wears glasses Home Medications aspirin 81 mg chewable tablet 81 mg PO DAILY heart health 03/05/16 [History Last Taken 10/09/22] diphenhydramine 25 mg-acetaminophen 500 mg tablet (Tylenol PM Extra Strength) 2 tab PO QHS PRN Insomnia 10/22/17 [History Last Taken 12/27/18] nitroglycerin 0.4 mg sublingual tablet 0.4 mg sublingual Q5M PRN Chest Pain #25 tabs 02/17/22 [Rx Last Taken Unknown] finasteride 5 mg tablet 5 mg PO DAILY 03/05/22 [History Last Taken Unknown] tamsulosin 0.4 mg capsule 0.4 mg PO DAILY 03/05/22 [History Last Taken Unknown] furosemide 20 mg tablet 20 mg PO Q OTHER DAY 08/05/22 [History Last Taken Unknown] simvastatin 20 mg tablet See Rx Instructions .Route .COMPLEX #90 tabs 09/14/22 [Rx Last Taken Unknown] clopidogrel 75 mg tablet 75 mg PO DAILY #90 tabs 03/04/23 [Rx Last Taken Unknown] carvedilol 3.125 mg tablet 3.125 mg PO BID #180 tabs 06/17/23 [Rx Last Taken Unknown] sacubitril 49 mg-valsartan 51 mg tablet (Entresto) 1 tab PO BID #180 tabs 06/17/23 [Rx Last Taken Unknown] Allergy/AdvReac Type Severity Reaction Status Date / Time morphine Allergy Intermediate Rash Verified 09/04/23 15:20 zolpidem tartrate AdvReac Intermediate CONFUSION Verified 09/04/23 15:20 [From Ambien] Family History (Updated 07/09/23 @ 13:38 by Alexia Hendricks) Mother CAD (coronary artery disease) CVA (cerebral vascular accident) Myocardial infarction, Onset Age: 67 Hypertension Brother CAD (coronary artery disease) Hypertension Cancer Lung CA Myocardial infarction, Onset Age: 73 Father Myocardial infarction, Onset Age: 77 Daughter Cancer Son Myocardial infarction, Onset Age: 46 Other Cardiomyopathy, ischemic Chronic systolic congestive heart failure Fatigue General weakness Iron deficiency anemia Surgical History History of cardiac catheterization History of hernia repair History of left heart catheterization History of prostate surgery Hx of colonoscopy Hx of surgical procedure Presence of coronary artery bypass graft stent (~12/28/18) S/P TURP (status post transurethral resection of prostate) Social History household members: spouse Smoking Status: Never smoker alcohol intake: never substance use type: does not use caffeine: Yes Type: carbonated beverages and coffee Number of servings: 1 what type of physical activity do you participate in: none seatbelt use: always do you feel safe at home: Yes ROS ROS Narrative General: Denies fever/chills HENT: Denies headache, denies stuffy nose, denies sore throat EYES: Denies changes in vision Resp: Denies cough, denies shortness of breath Cardiac: Denies chest pain GI: Was having abdominal pain that is now resolved, has not had bowel movement in 2 days denies nausea/vomiting : Difficulty getting urine out Extremity: Denies swelling MSK: Generalized weakness Neuro: Denies any numbness/tingling Heme: Denies any bleeding or bruising Skin: Denies rashes Psychiatric: No complaints voiced Vital Signs Vital Signs Vital Signs: 09/04/23 15:20 09/04/23 17:31 09/04/23 18:13 Temperature 98.1 F 98.2 F Temperature Source Temporal Pulse Rate 95 67 82 Respiratory Rate 18 14 14 Blood Pressure 117/63 115/73 108/76 Blood Pressure Mean 81 87 86 Pulse Ox 98 97 97 Oxygen Delivery Method Room Air Room Air Weight Weight: 51.029 kg Body Mass Index (BMI) 19.9 Physical Exam Narrative General: Alert, oriented, no apparent distress HEENT: Atraumatic, normocephalic Eyes: Anicteric, normal conjunctiva, extraocular movements grossly intact Neck: Supple Respiratory: Clear to auscultation bilaterally, normal respiratory effort Cardiovascular: Regular rate and rhythm GI: Soft, nontender, nondistended Extremities: No edema Musculoskeletal: Moving all extremities Neuro: No overt focal neurological deficits Skin: No rashes appreciated Psych: Cooperative but was tearful at times Results Lab / Micro Data 09/04/23 16:15 09/04/23 16:15 Labs: Laboratory Results - last 24 hr 09/04/23 15:48: Urine Color Yellow, Urine Clarity Sl. Cloudy, Urine pH 6.0, Ur Specific Otto 1.020, Urine Protein 15 H, Urine Glucose (UA) Normal, Urine Ketones 50 H, Urine Occult Blood 150 H, Urine Nitrite Positive H, Urine Bilirubin Negative, Urine Urobilinogen Normal, Ur Leukocyte Esterase 25 H, UrineRBC 0-5 SEEN, Urine WBC 5-10 SEEN, Ur Squamous Epith Cells 0 SEEN, Urine Bacteria 1+, Urine Mucus 0 SEEN 09/04/23 16:15: WBC 13.2 H, RBC 3.84 L, Hgb 11.3 L, Hct 35.7 L, MCV 93.0, MCH 29.4, MCHC 31.7 L, RDW Std Deviation 49.5 H, RDW Coeff of Arleen 14.6, Plt Count 208, MPV 11.7, Immature Gran % (Auto) 0.400, Neut % (Auto) 77.7 H, Lymph % (Auto) 11.1 L, Iroquois % (Auto) 10.2 H, Eos % (Auto) 0.2, Baso % (Auto) 0.4, Absolute Neuts (auto) 10.3 H, Absolute Lymphs (auto) 1.47, Nucleated RBC % 0, Sodium 134 L, Potassium 4.2, Chloride 101, Carbon Dioxide 17.0 L, Anion Gap 16 H, BUN 35 H, Creatinine 1.39 H, Estim Creat Clear Calc 27.02, Est GFR (MDRD) Af Amer 62, Est GFR (MDRD) Non-Af 51 L, BUN/Creatinine Ratio 25.2 H, Glucose 94, Calcium 8.7, Total Bilirubin 1.80 H, AST 10 L, ALT 11 L, Alkaline Phosphatase 54, Total Protein 7.2, Albumin 3.4, Globulin 3.8, Albumin/Globulin Ratio 0.9, Lipase 11 L Radiology Impression Abdomen/Pelvis CT 09/04/23 16:40 IMPRESSION: Suspect bladder outlet obstruction with mild left ureteral dilatation and hydronephrosis, likely from the prostatic enlargement.. Electronically Signed: Leroy Barrett MD at 17:36 EDT Reading Location ID and State: [id number] / [employer] Tel , Service support , Chest X-Ray 09/04/23 16:52 IMPRESSION: No active disease. Electronically Signed: Leroy Barrett MD at 17:27 EDT Reading Location ID and State: [id number] / [employer] Tel , Service support , Assessment & Plan Assessment/Plan (1) SINGH (acute kidney injury): (2) Atherosclerotic heart disease of [place] coronary artery without angina pectoris: QUALIFIERS: [place] vs. 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 -Rod catheter placed -Treat underlying infection -Will need follow with urology, if patient continues rapid improvement can consider outpatient follow-up versus inpatient -We will continue finasteride and tamsulosin in the event patient will be able to have Rod catheter removed in the future #SINGH -Suspect in part obstructive -Baseline creatinine 0.8-0.9, presently 1.39 -We will give very gentle hydration given his history and hold his Lasix with daily weights and I's and O's -If not improving can get further urine studies #History of chronic heart failure with reduced ejection fraction with dual AICD -We will need to monitor fluid status closely -Daily weights, I's and O's -EF 11/08/2020 was 25% with wall motion abnormalities -Continue Coreg, unclear if patient is still taking Entresto, will need to be reevaluated once med list finalized #History of coronary artery disease with stenting -Continue aspirin, Plavix #DVT ppx: Heparin subcu Manisha Varela MD Charges/Coding Visit Charges Inpatient E&M: 55048 Init Hosp L2 09/04/23 183 <Electronically signed by Manisha Varela MD> Cosigner Signature (if applicable): CC: Dr. John Mckeon DO; Dr. Manisha Varela MD~ Signed [facility] Work Phone: [phone]) 219-773111-04-2023 Discharge summary Author Murray Morgan [facility] September 04, 2023 6:24pm Note Date/Time September 04, 2023 3 :45pm [facility] Medical Records Department [address] [place] [id number] Emergency Department Summary 09/04/23 MR#: [id number] Acct: [id number] Name: RAJAT GUZMÁN Rep #:[id number] : 1935 88 From: Murray Morgan MD PCP: Dr. John Mckeon DO Status:ADM [place]STLEY Location: [facility] [id number] HPI <MORTEZA Staton - Last Filed: 09/04/23 18:05> History of Present Illness Chief Complaint: Complaint Narrative Narrative: Patient is a 88-year-old male with history of GA, CAD, cardiomyopathy who presents to the emergency department for generalized weakness. 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 Since then, the patient's been more incontinent, has not been feeling well, is not eating or drinking and per the daughter is unable to get out of bed. The patient does live by himself, and per the daughter, he cannot take care of himself. Patient states he generalized does not feel well however denies any fever or chills. 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 Dyspnea Easy bruising Elevated troponin Essential hypertension Excessive bleeding Family history of CVA Family history of hypertension Fatigue FH: sudden cardiac (SCD) General weakness GERD (gastroesophageal reflux disease) High cholesterol High risk medication use History of CHF (congestive heart failure) History of echocardiogram History of placement of internal cardiac defibrillator History of stress test HLD (hyperlipidemia) HTN (hypertension) Hypokalemia Implantable cardioverter-defibrillator (ICD) at end of battery life Iron deficiency anemia Old myocardial infarction Orchitis of right testicle Otitis media Presence of stent in coronary artery (~12/28/18) Pure hypercholesterolemia SBO (small bowel obstruction) Sepsis Wears glasses Home Medications aspirin 81 mg chewable tablet 81 mg PO DAILY heart health 03/05/16 [History Last Taken 10/09/22] diphenhydramine 25 mg-acetaminophen 500 mg tablet (Tylenol PM Extra Strength) 2 tab PO QHS PRN Insomnia 10/22/17 [History Last Taken 12/27/18] nitroglycerin 0.4 mg sublingual tablet 0.4 mg sublingual Q5M PRN Chest Pain #25 tabs 02/17/22 [Rx Last Taken Unknown] finasteride 5 mg tablet 5 mg PO DAILY 03/05/22 [History Last Taken Unknown] tamsulosin 0.4 mg capsule 0.4 mg PO DAILY 03/05/22 [History Last Taken Unknown] furosemide 20 mg tablet 20 mg PO Q OTHER DAY 08/05/22 [History Last Taken Unknown] simvastatin 20 mg tablet See Rx Instructions .Route .COMPLEX #90 tabs 09/14/22 [Rx Last Taken Unknown] clopidogrel 75 mg tablet 75 mg PO DAILY #90 tabs 03/04/23 [Rx Last Taken Unknown] carvedilol 3.125 mg tablet 3.125 mg PO BID #180 tabs 06/17/23 [Rx Last Taken Unknown] sacubitril 49 mg-valsartan 51 mg tablet (Entresto) 1 tab PO BID #180 tabs 06/17/23 [Rx Last Taken Unknown] Allergy/AdvReac Type Severity Reaction Status Date / Time morphine Allergy Intermediate Rash Verified 09/04/23 15:20 zolpidem tartrate AdvReac Intermediate CONFUSION Verified 09/04/23 15:20 [From Ambien] Family History (Updated 07/09/23 @ 13:38 by Alexia Hendricks) Mother CAD (coronary artery disease) CVA (cerebral vascular accident) Myocardial infarction, Onset Age: 67 Hypertension Brother CAD (coronary artery disease) Hypertension Cancer Lung CA Myocardial infarction, Onset Age: 73 Father Myocardial infarction, Onset Age: 77 Daughter Cancer Son Myocardial infarction, Onset Age: 46 Other Cardiomyopathy, ischemic Chronic systolic congestive heart failure Fatigue General weakness Iron deficiency anemia Surgical History History of cardiac catheterization History of hernia repair History of left heart catheterization History of prostate surgery Hx of colonoscopy Hx of surgical procedure Presence of coronary artery bypass graft stent (~12/28/18) S/P TURP (status post transurethral resection of prostate) Social History household members: spouse Smoking Status: Never smoker alcohol intake: never substance use type: does not use caffeine: Yes Type: carbonated beverages and coffee Number of servings: 1 what type of physical activity do you participate in: none seatbelt use: always do you feel safe at home: Yes ROS <MORTEZA Staton - Last Filed: 09/04/23 18:05> ROS ED ROS Narrative Constitutional: Negative for fever, chills, weight loss. Positive for generalized weakness Eyes: Negative for vision loss, vision change, double vision ENT: Negative for any sore throat, ear pain, congestion Cardiovascular: Negative for any chest pain, tightness, palpitations Respiratory: Negative for any cough, sputum production, hemoptysis, dyspnea, dyspnea on exertion, orthopnea Gastrointestinal: Negative for any nausea, vomiting, diarrhea, constipation, blood in stool, blood in vomit. Positive for abdominal pain : Negative for any dysuria, retention, blood in urine. Positive for incontinence, urinary frequency Muscle skeletal: Negative for any muscle joint pain, stiffness, myalgias, arthralgias, neck pain, back pain Neurological: Negative for any headache, syncope, numbness or tingling, dizziness Skin: Negative for any rashes, lumps, itching, abrasions, lacerations Psychiatric: Negative for any depression, anxiety, stress, suicidal ideation, homicidal ideation Hematologic: Negative for any easy bruising, excessive bruising, easy bleeding Allergies: Negative for any eczema, hives, rash EXAM <MORTEZA Staton - Last Filed: 09/04/23 18:05> Physical Exam Narrative Exam Narrative: Vital signs reviewed. She is alert and orient x4, I do smell some ketones the patient's breath. Patient is in no obvious distress. HEET: Head normocephalic atraumatic, TMs clear bilaterally. Posterior pharynx is clear, moist mucous membranes. Nares clear bilaterally. Neck: Supple with no lymphadenopathy or tenderness. No signs of meningismus, negative jolt sign. Cardiac: Regular rate and rhythm no murmurs gallops or rubs, equal peripheral pulses bilaterally. Respiratory: Lungs clear to auscultation bilaterally. No chest tenderness. Abdomen: Soft, nontender. No abdominal bruit or pulsatile masses. No hepatosplenomegaly. Patient does have some distention to the lower abdomen, there is slight pain on palpation. Extremities: No peripheral edema, no signs of gross trauma or deformity. Activefull range of motion of all extremities. Neuro: Cranial nerves II through XII intact, no focal neurological deficits. Skin: Clean dry and intact with no rash, purpura, petechiae, vesicles or pustules. Backs/flank: No CVA tenderness, no midline spinal tenderness, no deformity. Psych: Normal mood and affect. No SI, HI or acute psychosis. Const Vital Signs: 09/04/23 15:20 09/04/23 17:31 09/04/23 18:13 Temperature 98.1 F 98.2 F Temperature Source Temporal Pulse Rate 95 67 82 Respiratory Rate 18 14 14 Blood Pressure 117/63 115/73 108/76 Blood Pressure Mean 81 87 86 Pulse Ox 98 97 97 Oxygen Delivery Method Room Air Room Air <Murray Morgan MD - Last Filed: 09/04/23 18:24> Physical Exam Const Vital Signs: 09/04/23 15:20 09/04/23 17:31 09/04/23 18:13 Temperature 98.1 F 98.2 F Temperature Source Temporal Pulse Rate 95 67 82 Respiratory Rate 18 14 14 Blood Pressure 117/63 115/73 108/76 Blood Pressure Mean 81 87 86 Pulse Ox 98 97 97 Oxygen Delivery Method Room Air Room Air MDM <MORTEZA Staton - Last Filed: 09/04/23 18:05> [facility] Lab Data Labs: Laboratory Results - last 24 hr 09/04/23 09/04/23 15:48 16:15 WBC 13.2 H RBC 3.84 L Hgb 11.3 L Hct 35.7 L MCV 93.0 MCH 29.4 MCHC 31.7 L RDW Std Deviation 49.5 H RDW Coeff of Arleen 14.6 Plt Count 208 MPV 11.7 Immature Gran % (Auto) 0.400 Neut % (Auto) 77.7 H Lymph % (Auto) 11.1 L Iroquois % (Auto) 10.2 H Eos % (Auto) 0.2 Baso % (Auto) 0.4 Absolute Neuts (auto) 10.3 H Absolute Lymphs (auto) 1.47 Nucleated RBC % 0 Sodium 134 L Potassium 4.2 Chloride 101 Carbon Dioxide 17.0 L Anion Gap 16 H BUN 35 H Creatinine 1.39 H Estim Creat Clear Calc 27.02 Est GFR (MDRD) Af Amer 62 Est GFR (MDRD) Non-Af 51 L BUN/Creatinine Ratio 25.2 H Glucose 94 Calcium 8.7 Total Bilirubin 1.80 H AST 10 L ALT 11 L Alkaline Phosphatase 54 Total Protein 7.2 Albumin 3.4 Globulin 3.8 Albumin/Globulin Ratio 0.9 Lipase 11 L Urine Color Yellow Urine Clarity Sl. Cloudy Urine pH 6.0 Ur Specific Otto 1.020 Urine Protein 15 H Urine Glucose (UA) Normal Urine Ketones 50 H Urine Occult Blood 150 H Urine Nitrite Positive H Urine Bilirubin Negative Urine Urobilinogen Normal Ur Leukocyte Esterase 25 H Urine RBC 0-5 SEEN Urine WBC 5-10 SEEN Ur Squamous Epith Cells 0 SEEN Urine Bacteria 1+ Urine Mucus 0 SEEN Radiography Diagnostic Testing: Clinical Impression(s) from Imaging Studies Abdomen/Pelvis CT 09/04/23 16:40 IMPRESSION: Suspect bladder outlet obstruction with mild left ureteral dilatation and hydronephrosis, likely from the prostatic enlargement.. Electronically Signed: Leroy Barrett MD at 17:36 EDT , Chest X-Ray 09/04/23 16:52 IMPRESSION: No active disease. Electronically Signed: Leroy Barrett MD at 17:27 EDT , Treatment and Re-Evaluation :: Patient appears generally well, patient appears nontoxic, vital signs are stable. Presents to the emergency department for generalized feeling of not feeling well, urinary incontinence, patient did have a procedure done a couple weeks ago with Dr. Barth. Patient will receive some basic laboratory values, concerning for any dehydration, elevated blood glucose. Differential diagnosis includes UTI, chest x-ray concerning for a pneumonia. Patient received 500 cc of normal saline. A straight cath will be completed for the urine clean-catch, and to see if the patient is retaining. Patient did have wandered out of the straight cath. Patient's urinalysis was positive for infection with positive nitrates, 5-10 white blood cells, 1+ bacteria. Patient's laboratory values showed a leukocytosis with a white blood count of 13.2, hemoglobin 11.3. Patient's sodium 134 with an elevated creatinine of 1.39, patient's baseline is around 0.8. Total bili was 1.8, the remainder the labs are unremarkable. Patient did receive a chest x-ray which showed no acute disease. Urine culture will be sent. IV Rocephin given. This could be the cause of the patient's weakness, confusion. Patient's CT scan of the abdomen pelvis shows suspected bladder outlet obstruction with mild left ureteral dilatation and hydronephrosis, likely from the prosthetic enlargement. At this time, secondary the patient's urinary tract infection, altered mental status, weakness, inability to empty his bladder, I did speak with Dr. Tab Lacy, he recommended a Rod catheter. Patient be admitted to the hospital. I will speak with the hospitalist on-call. With the hospitalist, patient will be admitted to medical surgical floor on observation. Believe this is appropriate. Rod cath will be placed here. <Murray Morgan MD - Last Filed: 09/04/23 18:24> [facility] MDM Narrative Medical decision making narrative: Dr. Morgan: I have personally performed a face to face assessment of the patient and have reviewed the JOSHUA Note. I performed a substantive portion of the visit including all aspects of the following. My raines findings include: History is generalized weakness, dehydration and confusion. 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 Exam is afebrile. Vital signs noted. Regular rate and rhythm. Lungs clear to auscultation bilaterally. Abdomen soft with mild suprapubic distention/discomfort. Medical Decision Making: Insert Rod catheter. Check labs. Check CT. Discussed with urology. Patient with urinary outlet obstruction secondary to enlarged prostate. Insert Rod catheter. Patient lives at home alone. Assigned to observation after discussion with hospitalist. Patient in stable condition. Other additions or changes: [None] History & Record Review Discussion w/independent historian: Patient and Family Additional record(s) reviewed:: Prior ED visit and Prior labs Lab Data Attestation: I reviewed the patient's lab results. Labs: Laboratory Results - last 24 hr 09/04/23 09/04/23 15:48 16:15 WBC 13.2 H RBC 3.84 L Hgb 11.3 L Hct 35.7 L MCV 93.0 MCH 29.4 MCHC 31.7 L RDW Std Deviation 49.5 H RDW Coeff of Arleen 14.6 Plt Count 208 MPV 11.7 Immature Gran % (Auto) 0.400 Neut % (Auto) 77.7 H Lymph % (Auto) 11.1 L Iroquois % (Auto) 10.2 H Eos % (Auto) 0.2 Baso % (Auto) 0.4 Absolute Neuts (auto) 10.3 H Absolute Lymphs (auto) 1.47 Nucleated RBC % 0 Sodium 134 L Potassium 4.2 Chloride 101 Carbon Dioxide 17.0 L Anion Gap 16 H BUN 35 H Creatinine 1.39 H Estim Creat Clear Calc 27.02 Est GFR (MDRD) Af Amer 62 Est GFR (MDRD) Non-Af 51 L BUN/Creatinine Ratio 25.2 H Glucose 94 Calcium 8.7 Total Bilirubin 1.80 H AST 10 L ALT 11 L Alkaline Phosphatase 54 Total Protein 7.2 Albumin 3.4 Globulin 3.8 Albumin/Globulin Ratio 0.9 Lipase 11 L Urine Color Yellow Urine Clarity Sl. Cloudy Urine pH 6.0 Ur Specific Otto 1.020 Urine Protein 15 H Urine Glucose (UA) Normal Urine Ketones 50 H Urine Occult Blood 150 H Urine Nitrite Positive H Urine Bilirubin Negative Urine Urobilinogen Normal Ur Leukocyte Esterase 25 H Urine RBC 0-5 SEEN Urine WBC 5-10 SEEN Ur Squamous Epith Cells 0 SEEN Urine Bacteria 1+ Urine Mucus 0 SEEN Radiography Diagnostic Testing: Clinical Impression(s) from Imaging Studies Abdomen/Pelvis CT 09/04/23 16:40 IMPRESSION: Suspect bladder outlet obstruction with mild left ureteral dilatation and hydronephrosis, likely from the prostatic enlargement.. Electronically Signed: Leroy Barrett MD at 17:36 EDT , Chest X-Ray 09/04/23 16:52 IMPRESSION: No active disease. Electronically Signed: Leroy Barrett MD at 17:27 EDT Reading Location ID and State: [id number] / [employer] Tel , Service support , Management Discussion w/another healthcare provider: Hospitalist and Cylinder Machine Operator (Dr. Barth) Discharge Plan Triage Chief Complaint: Complaint ED Midlevel Provider: Robbi Hopkins ED Provider: Murray Morgan Dx/Rx/DC Orders Clinical Impression: SINGH (acute kidney injury), Episode of generalized weakness, UTI (urinary tract infection), Acute dehydration, Acute metabolic encephalopathy Primary Care Provider: John Mckeon What to do if you have Problems For any increased pain, shortness of breath, bleeding, nausea or vomiting, chest pain, or any unexpected problems, contact your Primary Care Provider. Call [facility] ([phone]) or report to the closest Emergency Room. Call 911 if necessary. 09/04/23 9135 <Electronically signed by Murray Morgan MD> Cosigner Signature (if applicable): 09/04/231804 <Electronically signed by Robbi RPO> CC: Dr. John Mckeon, DO ~ Signed [facility] Work Phone: 1(813) 451-188611-04-2023 Discharge summary Author Murray Morgan [facility] September 04, 2023 6:24pm Note Date/Time September 04, 2023 3 :45pm [facility] Medical Records Department [address] [place] [address] Emergency Department Summary 09/04/23 MR#: [id number] Acct: [id number] Name: RAJAT GUZMÁN Rep #:[id number] : 1935 88 From: Murray Morgan MD PCP: Dr. John Mckeon, DO Status:ADM [facility] Location: [address] <MORTEZA Staton - Last Filed: 09/04/23 18:05> History of Present Illness Chief Complaint: Complaint Narrative Narrative: Patient is a 88-year-old male with history of GA, CAD, cardiomyopathy who presents to the emergency department for generalized weakness. 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 Since then, the patient's been more incontinent, has not been feeling well, is not eating or drinking and per the daughter is unable to get out of bed. The patient does live by himself, and per the daughter, he cannot take care of himself. Patient states he generalized does not feel well however denies any fever or chills. 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 Dyspnea Easy bruising Elevated troponin Essential hypertension Excessive bleeding Family history of CVA Family history of hypertension Fatigue FH: sudden cardiac (SCD) General weakness GERD (gastroesophageal reflux disease) High cholesterol High risk medication use History of CHF (congestive heart failure) History of echocardiogram History of placement of internal cardiac defibrillator History of stress test HLD (hyperlipidemia) HTN (hypertension) Hypokalemia Implantable cardioverter-defibrillator (ICD) at end of battery life Iron deficiency anemia Old myocardial infarction Orchitis of right testicle Otitis media Presence of stent in coronary artery (~12/28/18) Pure hypercholesterolemia SBO (small bowel obstruction) Sepsis Wears glasses Home Medications aspirin 81 mg chewable tablet 81 mg PO DAILY heart health 03/05/16 [History Last Taken 10/09/22] diphenhydramine 25 mg-acetaminophen 500 mg tablet (Tylenol PM Extra Strength) 2 tab PO QHS PRN Insomnia 10/22/17 [History Last Taken 12/27/18] nitroglycerin 0.4 mg sublingual tablet 0.4 mg sublingual Q5M PRN Chest Pain #25 tabs 02/17/22 [Rx Last Taken Unknown] finasteride 5 mg tablet 5 mg PO DAILY 03/05/22 [History Last Taken Unknown] tamsulosin 0.4 mg capsule 0.4 mg PO DAILY 03/05/22 [History Last Taken Unknown] furosemide 20 mg tablet 20 mg PO Q OTHER DAY 08/05/22 [History Last Taken Unknown] simvastatin 20 mg tablet See Rx Instructions .Route .COMPLEX #90 tabs 09/14/22 [Rx Last Taken Unknown] clopidogrel 75 mg tablet 75 mg PO DAILY #90 tabs 03/04/23 [Rx Last Taken Unknown] carvedilol 3.125 mg tablet 3.125 mg PO BID #180 tabs 06/17/23 [Rx Last Taken Unknown] sacubitril 49 mg-valsartan 51 mg tablet (Entresto) 1 tab PO BID #180 tabs 06/17/23 [Rx Last Taken Unknown] Allergy/AdvReac Type Severity Reaction Status Date / Time morphine Allergy Intermediate Rash Verified 09/04/23 15:20 zolpidem tartrate AdvReac Intermediate CONFUSION Verified 09/04/23 15:20 [From Ambien] Family History (Updated 07/09/23 @ 13:38 by Alexia Hendricks) Mother CAD (coronary artery disease) CVA (cerebral vascular accident) Myocardial infarction, Onset Age: 67 Hypertension Brother CAD (coronary artery disease) Hypertension Cancer Lung CA Myocardial infarction, Onset Age: 73 Father Myocardial infarction, Onset Age: 77 Daughter Cancer Son Myocardial infarction, Onset Age: 46 Other Cardiomyopathy, ischemic Chronic systolic congestive heart failure Fatigue General weakness Iron deficiency anemia Surgical History History of cardiac catheterization History of hernia repair History of left heart catheterization History of prostate surgery Hx of colonoscopy Hx of surgical procedure Presence of coronary artery bypass graft stent (~12/28/18) S/P TURP (status post transurethral resection of prostate) Social History household members: spouse Smoking Status: Never smoker alcohol intake: never substance use type: does not use caffeine: Yes Type: carbonated beverages and coffee Number of servings: 1 what type of physical activity do you participate in: none seatbelt use: always do you feel safe at home: Yes ROS <MORTEZA Staton - Last Filed: 09/04/23 18:05> ROS ED ROS Narrative Constitutional: Negative for fever, chills, weight loss. Positive for generalized weakness Eyes: Negative for vision loss, vision change, double vision ENT: Negative for any sore throat, ear pain, congestion Cardiovascular: Negative for any chest pain, tightness, palpitations Respiratory: Negative for any cough, sputum production, hemoptysis, dyspnea, dyspnea on exertion, orthopnea Gastrointestinal: Negative for any nausea, vomiting, diarrhea, constipation, blood in stool, blood in vomit. Positive for abdominal pain : Negative for any dysuria, retention, blood in urine. Positive for incontinence, urinary frequency Muscle skeletal: Negative for any muscle joint pain, stiffness, myalgias, arthralgias, neck pain, back pain Neurological: Negative for any headache, syncope, numbness or tingling, dizziness Skin: Negative for any rashes, lumps, itching, abrasions, lacerations Psychiatric: Negative for any depression, anxiety, stress, suicidal ideation, homicidal ideation Hematologic: Negative for any easy bruising, excessive bruising, easy bleeding Allergies: Negative for any eczema, hives, rash EXAM <MORTEZA Staton - Last Filed: 09/04/23 18:05> Physical Exam Narrative Exam Narrative: Vital signs reviewed. She is alert and orient x4, I do smell some ketones the patient's breath. Patient is in no obvious distress. HEET: Head normocephalic atraumatic, TMs clear bilaterally. Posterior pharynx is clear, moist mucous membranes. Nares clear bilaterally. Neck: Supple with no lymphadenopathy or tenderness. No signs of meningismus, negative jolt sign. Cardiac: Regular rate and rhythm no murmurs gallops or rubs, equal peripheral pulses bilaterally. Respiratory: Lungs clear to auscultation bilaterally. No chest tenderness. Abdomen: Soft, nontender. No abdominal bruit or pulsatile masses. No hepatosplenomegaly. Patient does have some distention to the lower abdomen, there is slight pain on palpation. Extremities: No peripheral edema, no signs of gross trauma or deformity. Activefull range of motion of all extremities. Neuro: Cranial nerves II through XII intact, no focal neurological deficits. Skin: Clean dry and intact with no rash, purpura, petechiae, vesicles or pustules. Backs/flank: No CVA tenderness, no midline spinal tenderness, no deformity. Psych: Normal mood and affect. No SI, HI or acute psychosis. Const Vital Signs: 09/04/23 15:20 09/04/23 17:31 09/04/23 18:13 Temperature 98.1 F 98.2 F Temperature Source Temporal Pulse Rate 95 67 82 Respiratory Rate 18 14 14 Blood Pressure 117/63 115/73 108/76 Blood Pressure Mean 81 87 86 Pulse Ox 98 97 97 Oxygen Delivery Method Room Air Room Air <Murray Morgan MD - Last Filed: 09/04/23 18:24> Physical Exam Const Vital Signs: 09/04/23 15:20 09/04/23 17:31 09/04/23 18:13 Temperature 98.1 F 98.2 F Temperature Source Temporal Pulse Rate 95 67 82 Respiratory Rate 18 14 14 Blood Pressure 117/63 115/73 108/76 Blood Pressure Mean 81 87 86 Pulse Ox 98 97 97 Oxygen Delivery Method Room Air Room Air MDM <MORTEZA Staton - Last Filed: 09/04/23 18:05> [facility] Lab Data Labs: Laboratory Results - last 24 hr 09/04/23 09/04/23 15:48 16:15 WBC 13.2 H RBC 3.84 L Hgb 11.3 L Hct 35.7 L MCV 93.0 MCH 29.4 MCHC 31.7 L RDW Std Deviation 49.5 H RDW Coeff of Arleen 14.6 Plt Count 208 MPV 11.7 Immature Gran % (Auto) 0.400 Neut % (Auto) 77.7 H Lymph % (Auto) 11.1 L Iroquois % (Auto) 10.2 H Eos % (Auto) 0.2 Baso % (Auto) 0.4 Absolute Neuts (auto) 10.3 H Absolute Lymphs (auto) 1.47 Nucleated RBC % 0 Sodium 134 L Potassium 4.2 Chloride 101 Carbon Dioxide 17.0 L Anion Gap 16 H BUN 35 H Creatinine 1.39 H Estim Creat Clear Calc 27.02 Est GFR (MDRD) Af Amer 62 Est GFR (MDRD) Non-Af 51 L BUN/Creatinine Ratio 25.2 H Glucose 94 Calcium 8.7 Total Bilirubin 1.80 H AST 10 L ALT 11 L Alkaline Phosphatase 54 Total Protein 7.2 Albumin 3.4 Globulin 3.8 Albumin/Globulin Ratio 0.9 Lipase 11 L Urine Color Yellow Urine Clarity Sl. Cloudy Urine pH 6.0 Ur Specific Otto 1.020 Urine Protein 15 H Urine Glucose (UA) Normal Urine Ketones 50 H Urine Occult Blood 150 H Urine Nitrite Positive H Urine Bilirubin Negative Urine Urobilinogen Normal Ur Leukocyte Esterase 25 H Urine RBC 0-5 SEEN Urine WBC 5-10 SEEN Ur Squamous Epith Cells 0 SEEN Urine Bacteria 1+ Urine Mucus 0 SEEN Radiography Diagnostic Testing: Clinical Impression(s) from Imaging Studies Abdomen/Pelvis CT 09/04/23 16:40 IMPRESSION: Suspect bladder outlet obstruction with mild left ureteral dilatation and hydronephrosis, likely from the prostatic enlargement.. Electronically Signed: Leroy Barrett MD at 17:36 EDT Reading Location ID and State: [id number] / [employer] Tel , Service support , Chest X-Ray 09/04/23 16:52 IMPRESSION: No active disease. Electronically Signed: Leroy Barrett MD at 17:27 EDT Reading Location ID and State: [id number] / [employer] Tel , Service support , Treatment and Re-Evaluation :: Patient appears generally well, patient appears nontoxic, vital signs are stable. Presents to the emergency department for generalized feeling of not feeling well, urinary incontinence, patient did have a procedure done a couple weeks ago with Dr. Barth. Patient will receive some basic laboratory values, concerning for any dehydration, elevated blood glucose. Differential diagnosis includes UTI, chest x-ray concerning for a pneumonia. Patient received 500 cc of normal saline. A straight cath will be completed for the urine clean-catch, and to see if the patient is retaining. Patient did have wandered out of the straight cath. Patient's urinalysis was positive for infection with positive nitrates, 5-10 white blood cells, 1+ bacteria. Patient's laboratory values showed a leukocytosis with a white blood count of 13.2, hemoglobin 11.3. Patient's sodium 134 with an elevated creatinine of 1.39, patient's baseline is around 0.8. Total bili was 1.8, the remainder the labs are unremarkable. Patient did receive a chest x-ray which showed no acute disease. Urine culture will be sent. IV Rocephin given. This could be the cause of the patient's weakness, confusion. Patient's CT scan of the abdomen pelvis shows suspected bladder outlet obstruction with mild left ureteral dilatation and hydronephrosis, likely from the prosthetic enlargement. At this time, secondary the patient's urinary tract infection, altered mental status, weakness, inability to empty his bladder, I did speak with Dr. Tab Lacy, he recommended a Rod catheter. Patient be admitted to the hospital. I will speak with the hospitalist on-call. With the hospitalist, patient will be admitted to medical surgical floor on observation. Believe this is appropriate. Rod cath will be placed here. <Murray Morgan MD - Last Filed: 09/04/23 18:24> [facility] MDM Narrative Medical decision making narrative: Dr. Morgan: I have personally performed a face to face assessment of the patient and have reviewed the JOSHUA Note. I performed a substantive portion of the visit including all aspects of the following. My raines findings include: History is generalized weakness, dehydration and confusion. 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 Exam is afebrile. Vital signs noted. Regular rate and rhythm. Lungs clear to auscultation bilaterally. Abdomen soft with mild suprapubic distention/discomfort. Medical Decision Making: Insert Rod catheter. Check labs. Check CT. Discussed with urology. Patient with urinary outlet obstruction secondary to enlarged prostate. Insert Rod catheter. Patient lives at home alone. Assigned to observation after discussion with hospitalist. Patient in stable condition. Other additions or changes: [None] History & Record Review Discussion w/independent historian: Patient and Family Additional record(s) reviewed:: Prior ED visit and Prior labs Lab Data Attestation: I reviewed the patient's lab results. Labs: Laboratory Results - last 24 hr 09/04/23 09/04/23 15:48 16:15 WBC 13.2 H RBC 3.84 L Hgb 11.3 L Hct 35.7 L MCV 93.0 MCH 29.4 MCHC 31.7 L RDW Std Deviation 49.5 H RDW Coeff of Arleen 14.6 Plt Count 208 MPV 11.7 Immature Gran % (Auto) 0.400 Neut % (Auto) 77.7 H Lymph % (Auto) 11.1 L [place]quois % (Auto) 10.2 H Eos % (Auto) 0.2 Baso % (Auto) 0.4 Absolute Neuts (auto) 10.3 H Absolute Lymphs (auto) 1.47 Nucleated RBC % 0 Sodium 134 L Potassium 4.2 Chloride 101 Carbon Dioxide 17.0 L Anion Gap 16 H BUN 35 H Creatinine 1.39 H Estim Creat Clear Calc 27.02 Est GFR (MDRD) Af Amer 62 Est GFR (MDRD) Non-Af 51 L BUN/Creatinine Ratio 25.2 H Glucose 94 Calcium 8.7 Total Bilirubin 1.80 H AST 10 L ALT 11 L Alkaline Phosphatase 54 Total Protein 7.2 Albumin 3.4 Globulin 3.8 Albumin/Globulin Ratio 0.9 Lipase 11 L Urine Color Yellow Urine Clarity Sl. Cloudy Urine pH 6.0 Ur Specific Otto 1.020 Urine Protein 15 H Urine Glucose (UA) Normal Urine Ketones 50 H Urine Occult Blood 150 H Urine Nitrite Positive H Urine Bilirubin Negative Urine Urobilinogen Normal Ur Leukocyte Esterase 25 H Urine RBC 0-5 SEEN Urine WBC 5-10 SEEN Ur Squamous Epith Cells 0 SEEN Urine Bacteria 1+ Urine Mucus 0 SEEN Radiography Diagnostic Testing: Clinical Impression(s) from Imaging Studies Abdomen/Pelvis CT 09/04/23 16:40 IMPRESSION: Suspect bladder outlet obstruction with mild left ureteral dilatation and hydronephrosis, likely from the prostatic enlargement.. Electronically Signed: Leroy Barrett MD at 17:36 EDT , Chest X-Ray 09/04/23 16:52 IMPRESSION: No active disease. Electronically Signed: Leroy Barrett MD at 17:27 EDT , Management Discussion w/another healthcare provider: Hospitalist and Cylinder Machine Operator (Dr. Barth) Discharge Plan Triage Chief Complaint: Complaint ED Midlevel Provider: Robbi Hopkins ED Provider: Murray Morgan Dx/Rx/DC Orders Clinical Impression: SINGH (acute kidney injury), Episode of generalized weakness, UTI (urinary tract infection), Acute dehydration, Acute metabolic encephalopathy Primary Care Provider: John Mckeon What to do if you have Problems For any increased pain, shortness of breath, bleeding, nausea or vomiting, chest pain, or any unexpected problems, contact your Primary Care Provider. Call [facility] ([phone]) or report to the closest Emergency Room. Call 911 if necessary. 09/04/231823 <Electronically signed by Murray Morgan MD> Cosigner Signature (if applicable): 09/04/23 1805 <Electronically signed by Robbi Hopkins [employer] IN HOUSEKEEPER NANNY-C> CC: Dr. John Mckeon, DO ~ Signed [facility] Work Phone: 1(824) 839-888302-26-[address] Morgan [facility] December 27, 2022 11:52pm Note Date/Time December 27, 2022 9:33pm [facility] Medical Records Department [address] [place] [address] Emergency Department Summary 12/27/22 MR#: [id number] Acct: [id number] Name: RAJAT UGZMÁN Rep #:[id number] : 1935 87 From: Murray Morgan MD PCP: Dr. Shailesh Mancini MD Status:REG E R Location: ED HPI HPI - GI History of Present Illness Chief Complaint: Abd Pain Narrative Narrative: 87-year-old male past medical history of coronary artery disease presents with left lower quadrant abdominal pain and constipation for the last few days. He thinks he had a bowel movement 3 days ago, but over the last 2 days, has not hada bowel movement. He complains of left lower quadrant abdominal pain with this but no fevers or chills, no nausea or vomiting. He took Ex-Lax as a laxative this morning and in the last 6 to 8 hours he has not had a bowel movement. He presents because of the constipation and the pain. His pain is worse with getting up and walking but relieved by remaining still. Past surgical history does include hernia repair along with facetectomy with a mass over the vasectomysite. 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 Dyspnea Easy bruising Essential hypertension Excessive bleeding Family history of CVA Family history of hypertension Fatigue FH: sudden cardiac (SCD) GERD (gastroesophageal reflux disease) High cholesterol High risk medication use History of CHF (congestive heart failure) History of echocardiogram History of placement of internal cardiac defibrillator History of stress test HLD (hyperlipidemia) HTN (hypertension) Hypokalemia Implantable cardioverter-defibrillator (ICD) at end of battery life Iron deficiency anemia Old myocardial infarction Pure hypercholesterolemia Wears glasses Home Medications aspirin 81 mg chewable tablet 81 mg PO DAILY heart health 03/05/16 [History Last Taken 10/09/22] diphenhydramine 25 mg-acetaminophen 500 mg tablet (Tylenol PM Extra Strength) 2 tab PO QHS PRN Insomnia 10/22/17 [History Last Taken 12/27/18] clopidogrel 75 mg tablet 75 mg PO DAILY #90 tabs 10/28/21 [Rx Last Taken 10/09/22] nitroglycerin 0.4 mg sublingual tablet 0.4 mg sublingual Q5M PRN Chest Pain #25 tabs 02/17/22 [Rx Last Taken Unknown] carvedilol 3.125 mg tablet (Coreg) 3.125 mg PO BID 03/05/22 [History Last Taken 10/21/22] finasteride 5 mg tablet 5 mg PO DAILY 03/05/22 [History Last Taken Unknown] tamsulosin 0.4 mg capsule 0.4 mg PO DAILY 03/05/22 [History Last Taken Unknown] furosemide 20 mg tablet 20 mg PO Q OTHER DAY 08/05/22 [History Last Taken Unknown] sacubitril 24 mg-valsartan 26 mg tablet (Entresto) 1 tab PO BID Heart Failure #180 tabs 08/07/22 [Rx Last Taken 10/21/22] simvastatin 20 mg tablet See Rx Instructions .Route .COMPLEX #90 tabs 09/14/22 [Rx Last Taken Unknown] ciprofloxacin HCl 250 mg tablet (Cipro) 250 mg PO BID #20 tabs 10/21/22 [Rx Last Taken Unknown] amoxicillin 875 mg-potassium clavulanate 125 mg tablet 1 tab PO BID #20 tabs 12/27/22 [Rx Last Taken Unknown] Allergy/AdvReac Type Severity Reaction Status Date / Time morphine Allergy Intermediate Rash Verified 12/27/22 20:31 zolpidem tartrate AdvReac Intermediate CONFUSION Verified 12/27/22 20:31 [From Ambien] Family History Mother CAD (coronary artery disease) CVA (cerebral vascular accident) Myocardial infarction, Onset Age: 67 Hypertension Brother CAD (coronary artery disease) Hypertension Cancer Lung CA Myocardial infarction, Onset Age: 73 Father Myocardial infarction, Onset Age: 77 Daughter Cancer Son Myocardial infarction, Onset Age: 46 Surgical History History of cardiac catheterization History of hernia repair History of left heart catheterization History of prostate surgery History of PTCA (08/02/08) Hx of colonoscopy Hx of surgical procedure S/P TURP (status post transurethral resection of prostate) Stented coronary artery (~12/28/18) Social History Smoking Status: Never smoker alcohol intake: never substance use type: does not use caffeine: Yes Type: carbonated beverages and coffee Number of servings: 1 what type of physical activity do you participate in: none seatbelt use: always do you feel safe at home: Yes ROS ROS ED ROS Narrative Constitutional: No fever, no chills. HEENT: No sore throat. No neck pain. No loss of vision. No rhinorrhea. Cardiovascular: No chest pain. No palpitations. No pedal edema. Respiratory: No cough, no shortness of breath. Abdominal: Constipation. Left lower quadrant abdominal pain. No nausea. No vomiting. Genitourinary: No dysuria. No hematuria. Musculoskeletal: No myalgias. No arthralgias. Neurologic: No headaches. No dizziness. No lightheadedness. Skin: No rash. No change in color. Psychiatric: No depression. No anxiety. EXAM Physical Exam Narrative Exam Narrative: Afebrile. Vital signs noted. HEENT: Normocephalic. Atraumatic. PERRL, EOMI. Neck soft and supple. No pointtenderness or step off. Cardiovascular: Regular rate and rhythm. No murmurs, rubs, or gallops appreciated. Respiratory: No tachypnea. Lungs clear to auscultation bilaterally. Gastrointestinal: Abdomen soft, mild tenderness to palpation left lower quadrantwith normoactive bowel sounds. No rebound or guarding. Neurological: Awake. Alert. Nonfocal, nonlateralizing. Skin: No rash. Normal color. No pallor. Musculoskeletal: No pedal edema. Full range of motion extremities. Const Vital Signs: 12/27/22 20:29 Temperature 97.1 F L Temperature Source Temporal Pulse Rate 93 Respiratory Rate 15 Blood Pressure 129/74 H Blood Pressure Mean 92 Pulse Ox 100 Oxygen Delivery Method Room Air MDM MDM MDM Narrative Medical decision making narrative: Given his pain and constipation/obstipation, concern is for diverticulitis versus bowel obstruction. He declined any pain medications parenterally currently. Comprehensive work-up was pursued. I reviewed the patient's laboratory work, he has a normal white count of 10.8 with hemoglobin slightly low at 12.8, platelet count normal at 185. Potassium slightly low at 3.4 but normal BUN of 11 and normal creatinine of 0.93. Urinalysis is negative for infection with 0-5 WBCs. I do not feel antibiotics are indicated for this. I reviewed his CT images and see stranding of the sigmoid colon. I reviewed the radiology report which confirms that there is uncomplicated sigmoid (proximal) diverticulitis. There are pulmonary nodules noted on examination, the patient was informed of this also. At this point in time, patient is afebrile, does nothave a leukocytosis, and feels well enough to go home. He does not want inpatient treatment. He did not require any narcotic pain medication. He states he would like to take Tylenol for pain. He was given his first dose of Augmentin here in the emergency department and a prescription written for the next 10 days to take twice daily. He was told of the risk of perforation, abscess formation, so I reviewed strict return instructions with him. Additionally, they state that their primary care provider has retired, but they are supposed to start seeing Dr. Mckeon. I discussed the patient with Dr. Mckeon for close follow-up in the next 2 to 3 days. Patient and his are to call the office tomorrow to arrange a follow-up appointment. I feel he can be discharged safely home. Return instructions were reviewed. Disposition is discharged home in stable condition. Lab Data Attestation: I reviewed the patient's lab results. Labs: Laboratory Results - last 24 hr 12/27/22 12/27/22 12/27/22 21:52 21:52 21:58 WBC 10.8 RBC 4.29 L Hgb 12.8 L Hct 39.2 L MCV 91.4 MCH 29.8 MCHC 32.7 RDW Std Deviation 46.6 H RDW Coeff of Arleen 14.0 Plt Count 195 MPV 11.6 Immature Gran % (Auto) 0.400 Neut % (Auto) 69.5 Lymph % (Auto) 16.0 L [place] % (Auto) 12.6 H Eos % (Auto) 1.0 Baso % (Auto) 0.5 Absolute Neuts (auto) 7.5 Absolute Lymphs (auto) 1.73 Nucleated RBC % 0 Sodium 139 Potassium 3.4 L Chloride 102 Carbon Dioxide 30.0 Anion Gap 7 BUN 11 Creatinine 0.93 Estim Creat Clear Calc 42.47 Est GFR (MDRD) Af Amer 99 Est GFR (MDRD) Non-Af 82 BUN/Creatinine Ratio 11.9 Glucose 135 H Calcium 8.9 Total Bilirubin 2.10 H AST 8 L ALT 11 L Alkaline Phosphatase 68 Total Protein 7.6 Albumin 3.9 Globulin 3.7 Albumin/Globulin Ratio 1.1 Urine Color Yellow Urine Clarity Sl. Cloudy Urine pH 7.0 Ur Specific Otto 1.010 Urine Protein 15 H Urine Glucose (UA) Normal Urine Ketones Negative Urine Occult Blood Negative Urine Nitrite Negative Urine Bilirubin Negative Urine Urobilinogen Normal Ur Leukocyte Esterase 25 H Urine RBC 0 SEEN Urine WBC 0-5 SEEN Ur Squamous Epith Cells 0-5 SEEN Urine Bacteria 0 SEEN Urine Mucus 0 SEEN Radiography Diagnostic Testing: Clinical Impression(s) from Imaging Studies Abdomen/Pelvis CT 12/27/22 21:30 IMPRESSION: 1. Acute uncomplicated diverticulitis of the proximal sigmoid colon. Differential diagnosis includes underlying malignancy and follow-up is recommended. 2. New right middle lobe lung nodules, nonspecific. Fleischner Society Guidelines (MacMahon, et al. Radiology 2017; 284(1):228-43) suggest the following. For low-risk patients recommend follow-up chest CT at 3-6 months. If unchanged consider an additional follow-up CT at 18-24 months. For high-risk patients initial follow-up chest CT at 3-6 months and if unchanged, 18-24 months. 3. Pancreatic cyst. ACR White Paper guidelines (Kt, et al. JACR 2017; 14(7):911-923) suggest a contrast-enhanced, pancreas-protocol abdominal CT or MR in 2 years. 4. Small hiatal hernia. 5. Right renal cyst. Follow-up is not indicated per ACR guidelines. 6. Mild biliary duct dilation consistent with cholecystectomy. Electronically Signed: Mily Zavala MD at 23:15 EST Reading Location ID and State: [id number] / Tel , Service support , Discharge Plan Triage Chief Complaint: Abd Pain ED Provider: Murray Morgan Dx/Rx/DC Orders Clinical Impression: Diverticulitis, Abdominal pain, LLQ Instructions: ED Diverticulitis Prescriptions: New amoxicillin-pot clavulanate 875-125 mg tablet 1 tab PO BID Qty: 20 0RF No Action diphenhydramine-acetaminophen [Tylenol PM Extra Strength] 25-500 mg tablet 2 tab PO QHS PRN (Reason: Insomnia) furosemide 20 mg tablet 20 mg PO Q OTHER DAY carvedilol [Coreg] 3.125 mg tablet 3.125 mg PO BID Label Comments: TAKE 1 TABLET BY MOUTH TWICE DAILY WITH FOOD tamsulosin 0.4 mg capsule 0.4 mg PO DAILY finasteride 5 mg tablet 5 mg PO DAILY Label Comments: TAKE 1 TABLET BY MOUTH ONCE DAILY aspirin 81 MG tablet,chewable 81 mg PO DAILY Hold Instructions: Resume on 11/06/22. ciprofloxacin HCl [Cipro] 250 mg tablet 250 mg PO BID Qty: 20 0RF clopidogrel 75 mg tablet 75 mg PO DAILY Qty: 90 3RF Hold Instructions: Resume on 11/06/22. Rx Instructions: prevent clotting nitroglycerin 0.4 mg tablet, sublingual 0.4 mg SUBLINGUAL Q5M PRN (Reason: Chest Pain) Qty: 25 3RF Entresto 24-26 mg tablet 1 tab PO BID Qty: 180 3RF simvastatin 20 mg tablet See Rx Instructions .ROUTE .COMPLEX Qty: 90 3RF Dose Instruction: TAKE 1 TABLET BY MOUTH AT BEDTIME FOR CHOLESTEROL Rx Instructions: TAKE 1 TABLET BY MOUTH AT BEDTIME FOR CHOLESTEROL Primary Care Provider: Shailesh Mancini Referrals: John Mckeon DO [Med Staff - Social Media Project Manager] - 2 Days Shailesh Mancini MD [Primary Care Provider] - Activity Restrictions/Additional Instructions: Follow-up with Dr. Mckeon in the next 2 to 3 days. Return to the emergency department with fever, increased pain, new or worsening symptoms. Disposition Disposition: Home, Self Care What to do if you have Problems For any increased pain, shortness of breath, bleeding, nausea or vomiting, chestpain, or any unexpected problems, contact your Primary Care Provider. Call [facility] ([phone]) or report to the closest Emergency Room. Call 911 if necessary. 12/27/22 438 <Electronically signed by Murray Morgan MD> Cosigner Signature (if applicable): CC: Dr. John Mckeon DO; Dr. Shailesh Mancini MD ~ Signed [facility] Work Phone: [phone]) 739-470202-26-2023 Hospital Discharge instructions Additional Instructions Follow-up with Dr. Mckeon in the next 2 to 3 days. Return to the emergency department with fever, increased pain, new or worsening symptoms.[facility] Work Phone: [phone]) 688-913906-12-2017 Fall risk [id number]/06/12[facility] Work Phone: Discharge summary Author Manisha Varela [facility] September 06, 2023 3:14pm Note Date/Time September 06, 2023 3 :14pm [facility] Medical Records Department [facility] [place] [address] Discharge Summary 09/06/23 1513 MR#: [id number] Acct: [id number] Name: RAJAT GUZMÁN Rep #:[id number] : 1935 88 From: Manisha Varela MD PCP: Dr. John Mckeon DO Status:ADM WESTLEY Location: [place] [address] Providers Date of Admission: 09/04/23 Date of Discharge: 09/06/23 Primary Care Physician: Dr. John Mckeon DO Reason For Visit: UTI, SINGH, GENERAL WEAKNESS Diagnosis Discharge Diagnosis (1) SINGH (acute kidney injury): Status: Acute Code(s): N17.9 - Acute kidney failure, unspecified (2) Atherosclerotic heart disease of [place] coronary artery without angina pectoris: Status: Chronic Code(s): I25.10 - Atherosclerotic heart disease of [place] coronary artery without angina pectoris Qualifiers: [place] vs. 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: Status: Chronic Code(s): Z95.810 - Presence of automatic (implantable) cardiac defibrillator (5) UTI (urinary tract infection): Status: Acute Code(s): N39.0 - Urinary tract infection, site not specified (6) Urinary retention: Status: Acute Code(s): R33.9 - Retention of urine, unspecified Plan #Urinary tract infection 2/2 staph lugdunensis and associated generalized weakness #Urinary retention with history of strictures and BPH s/p rod placement #SINGH, suspect obstructive, resolved #History of chronic heart failure with reduced ejection fraction with dual AICD #History of coronary artery disease with stenting Medications at Discharge Home Medications aspirin 81 mg chewable tablet 81 mg PO DAILY [facility] 03/05/16 nitroglycerin 0.4 mg sublingual tablet 0.4 mg sublingual Q5M PRN Chest Pain #25 tabs 02/17/22 finasteride 5 mg tablet 5 mg PO DAILY 03/05/22 tamsulosin 0.4 mg capsule 0.4 mg PO DAILY 03/05/22 furosemide 20 mg tablet 20 mg PO Q OTHER DAY 08/05/22 simvastatin 20 mg tablet See Rx Instructions .Route .COMPLEX #90 tabs 09/14/22 clopidogrel 75 mg tablet 75 mg PO DAILY #90 tabs 03/04/23 carvedilol 3.125 mg tablet 3.125 mg PO BID #180 tabs 06/17/23 sacubitril 49 mg-valsartan 51 mg tablet (Entresto) 1 tab PO BID #180 tabs 06/17/23 levofloxacin 750 mg tablet 750 mg PO Q48H 7 days #3 tabs 09/06/23 Hospital Course Summary of Care Provided Minutes Spent on Discharge: 32 Hospital Course: RAJAT GUZMÁN, is a 88-year-old male history of coronary artery disease, heart failure with reduced ejection fraction with dual AICD, BPH, hypertension presented to [facility] 09/04/2023 with generalized weakness. 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 In the ED white blood cell count 13.2, creatinine 1.39 up from baseline of 0.8?0.9, and UA suggestive of UTI. Patient started on fluids and Rocephin and CT abdomen pelvis obtained which demonstrated suspected bladder outlet obstruction with mild left ureteral dilation and hydronephrosis likely from prostatic enlargement. He was straight cathed x1 but given outlet obstruction Dr. Barth was consulted who recommended Rod catheter placement. Hospitalist contacted for admission due to patient's generalized weakness and confusion and inability to care for self at home in addition to his acute UTI and SINGH. Patient improved after Rod placement and with antibiotics, urine culture grew staph species and antibiotics adjusted, SINGH resolved relieving obstruction. Patient doing well, feels he is back to his prior level of functioning. Patientwill be discharged on antibiotics for UTI and Rod catheter with instructions to follow-up with Tab. Physical Exam Narrative General: Alert, oriented, no apparent distress HEENT: Atraumatic, normocephalic Eyes: Anicteric, normal conjunctiva, extraocular movements grossly intact Neck: Supple Respiratory: Clear to auscultation bilaterally, normal respiratory effort Cardiovascular: Regular rate GI: Soft, nontender, nondistended Extremities: No edema Musculoskeletal: Moving all extremities Neuro: No overt focal neurological deficits Skin: No rashes appreciated Psych: Cooperative Weight / BMI Weight Weight: 49.3 kg Body Mass Index (BMI) 19.2 ABG / Lab / Microbiology Data 09/05/23 07:10 09/06/23 09:25 Laboratory: Laboratory Results - last 24 hr 09/06/23 09:25: Sodium 139, Potassium 3.3 L, Chloride 108 H, Carbon Dioxide 24.0, Anion Gap 7, BUN 21 H, Creatinine 0.90, Estim Creat Clear Calc 40.32, Est GFR (MDRD) Af Amer 102, Est GFR (MDRD) Non-Af 84, BUN/Creatinine Ratio 23.3 H, Glucose 200 H, Calcium 8.2 L Microbiology: Microbiology 09/04/23 15:48 Urine, Random Urine Culture - Final Staphylococcus lugdunensis D/C Instructions Discharge Diet: - (-DASH diet, 3000 mg sodium restriction, 2 L fluid restriction) Meaningful Use Info Meaningful Use Diagnoses (Choose all that apply): None applicable Discharge Plan Admission Admit Date/Time: 09/04/23 18:20 Primary Reason for Your Visit: Abdominal pain, generalized weakness Attending Provider: Manisha Varela Primary Care Provider: John Mckeon Consulting Providers: Manisha Varela; Natanael Nowak Instructions Patient Instructions: ED Rod Catheter, Care Additional Instructions / Restrictions: DISCHARGE INSTRUCTIONS PLEASE READ *Please take this with you to your next doctors appointment* -You will be discharged on antibiotics for urinary tract infection, he will takeLevaquin every other day for total of 7 days. Your first dose was 09/06 so your next dose will be 09/08 -You will be discharged with a rod catheter. Please follow-up with urology upon discharge. Please call their office to schedule hospital follow-up appointment upon discharge. -Please call your primary care provider's office upon discharge to schedule a hospital follow up within 1 week. -For any concerning signs or symptoms please call 911 or proceed to the nearest emergency department Discharge Orders/Prescriptions Prescriptions: New levofloxacin 750 mg Tablet 750 mg PO Q48H 7 Days Qty: 3 0RF Rx Instructions: Took 09/06 dose in hospital. Next dose 09/08 Continued furosemide 20 mg tablet 20 mg PO Q OTHER DAY tamsulosin 0.4 mg capsule 0.4 mg PO DAILY finasteride 5 mg tablet 5 mg PO DAILY Patient Comments: TAKE 1 TABLET BY MOUTH ONCE DAILY aspirin 81 MG tablet,chewable 81 mg PO DAILY Hold Instructions: Resume on 11/06/22. nitroglycerin 0.4 mg tablet, sublingual 0.4 mg SUBLINGUAL Q5M PRN (Reason: Chest Pain) Qty: 25 3RF simvastatin 20 mg tablet See Rx Instructions .ROUTE .COMPLEX Qty: 90 3RF Dose Instruction: TAKE 1 TABLET BY MOUTH AT BEDTIME FOR CHOLESTEROL Rx Instructions: TAKE 1 TABLET BY MOUTH AT BEDTIME FOR CHOLESTEROL clopidogrel 75 mg tablet 75 mg PO DAILY Qty: 90 3RF Hold Instructions: Resume on 11/06/22. Rx Instructions: prevent clotting carvedilol 3.125 mg tablet 3.125 mg PO BID Qty: 180 3RF Rx Instructions: must administer with a meal/food Entresto 49-51 mg tablet 1 tab PO BID Qty: 180 3RF Discontinued diphenhydramine-acetaminophen [Tylenol PM Extra Strength] 25-500 mg tablet 2 tab PO QHS PRN (Reason: Insomnia) Referrals / Follow Up: Faisal Barth MD [Med Staff - Active Staff] - ( -Please follow-up with urology upon discharge. Please call their office to schedule hospital follow-up appointment upon discharge.) John Mckeon DO [Primary Care Provider] - Within 1 Week Disposition Disposition (needs filled in before D/C Order can be placed): Home, Self Care Charges/Coding Visit Charges Inpatient E&M: 05922 Disch Hosp >30min 09/06/23 1516 <Electronically signed by Manisha Varela MD> Cosigner Signature (if applicable): CC: Dr. John Mckeon DO; Dr. Manisha Varela MD~ [facility] Work Phone: Evaluation note* Diagnosis Onset Date Resolution Status Cardiomyopathy, ischemic chr onic Chronic systolic congestive heart failure chronic Dual ICD (implantable 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 History of placement of internal cardiac defibrillator [facility] Work Phone: Evaluation note* Diagnosis Onset Date Resolution Status Cardiomyopathy, ischemic chr onic Chronic systolic congestive heart failure chronic Dual ICD (implantable 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 History of placement of inte rnal cardiac defibrillator chronic 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, ischemic chr onic Dyspnea chronic Essential hypertension chron ic History of placement of inte rnal cardiac defibrillator chronic Pure hypercholesterolemia ch ronic Stented coronary artery December, [facility] Work Phone: Evaluation note* Diagnosis Onset Date Resolution Status 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, ischemic chr onic Dyspnea chronic Essential hypertension chron ic History of placement of inte rnal cardiac defibrillator chronic Pure hypercholesterolemia ch ronic Stented coronary artery December, ch ronic Cardiomyopathy, ischemic chr onic Chronic systolic congestive heart failure chronic Dual ICD (implantable 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 History of placement of inte rnal cardiac defibrillator [facility] Work Phone: Evaluation note* Diagnosis Onset Date Resolution Status Cardiomyopathy, ischemic chr onic Chronic systolic congestive heart failure chronic Dual ICD (implantable 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, ischemic chr onic Essential hypertension chron ic History of placement of inte rnal cardiac defibrillator chronic Pure hypercholesterolemia ch ronic Stented coronary artery December, [facility] Work Phone: Evaluation note* Diagnosis Onset Date Resolution Status Dual ICD (implantable 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 History of placement of internal cardiac defibrillator [facility] Work Phone: Evaluation note* Diagnosis Onset Date Resolution Status Cardiomyopathy, ischemic chr onic Chronic systolic congestive heart failure chronic Dual ICD (implantable 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 Cardiomyopathy, ischemic chr onic Chronic systolic congestive heart failure chronic Coronary artery disease 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 Dual ICD (implantable 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 Dyslipidemia chronic Essential hypertension chron ic Presence of stent in coronary artery December, [facility] Work Phone: Evaluation noteNo assessment information available [facility] Work Phone: Evaluation note* Diagnosis Onset Date Resolution Status Acute dehydration acute Acute metabolic encephalopathy acute SINGH (acute kidney injury) [place] Episode of generalized weakness acute Urinary retention acute UTI (urinary tract infection) acute 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, 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 [facility] Work Phone: Evaluation note* Diagnosis Onset Date Resolution Status Urinary retention acute UTI (urinary tract infection) acute 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, 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 Acute dehydration resolved Acute metabolic encephalopathy resolved SINGH (acute kidney injury) re solved Episode of generalized weakness resolved [facility] Work Phone: Evaluation note* Diagnosis Onset Date Resolution Status Urinary retention acute UTI (urinary tract infection) acute 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, 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 Acute dehydration resolved Acute metabolic encephalopathy resolved SINGH (acute kidney injury) re solved Episode of generalized weakness resolved Cardiomyopathy, ischemic chr onic Chronic systolic congestive heart failure chronic Dual ICD (implantable 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 Dyslipidemia chronic Essential hypertension chron ic Presence of stent in coronary artery December, [facility] Work Phone: Evaluation note* Diagnosis Benign prostatic hyperplasia with lower urinary tract symptoms, symptom details unspecified Retention of urine Unspecified retention of urine Nocturia Abnormal digital rectal exam documented in this encounter [facility] Work Phone: Evaluation note* Diagnosis Incomplete bladder emptying- Primary documented in this encounter [facility] Work Phone: Evaluation note* Diagnosis Elevated PSA- Primary Elevated prostate specific antigen (PSA) documented in this encounter [facility] Work Phone: [phone] note* Diagnosis Elevated PSA Elevated prostate specific antigen (PSA) Abnormal digital rectal exam Malignant neoplasm of prostate (Multi) Malignant neoplasm of prostate Retention of urine Unspecified retention of urine documented in this encounter [facility] Work Phone: [phone] note* Diagnosis Malignant neoplasm of prostate (Multi) Malignant neoplasm of prostate documented in this encounter [facility] Work Phone: Evaluation note* Diagnosis Malignant neoplasm of prostate (Multi) Malignant neoplasm of prostate Abnormal digital rectal exam Elevated PSA Elevated prostate specific antigen (PSA) Retention of urine Unspecified retention of urine Urinary retention- Primary Unspecified retention of urine documented in this encounter [facility] Work Phone: [phone] note* Diagnosis Urinary retention- Primary Unspecified retention of urine Urinary retention Unspecified retention of urine documented in this encounter [facility] Work Phone: [phone] note* Diagnosis Urinary retention Unspecified retention of urine documented in this encounter [facility] Work Phone: [phone] note* Diagnosis Urinary retention Unspecified retention of urine Bladder spasm Hypertonicity of bladder Malignant neoplasm of prostate (Multi) Malignant neoplasm of prostate documented in this encounter [facility] Work Phone: [phone] note* Diagnosis Bladder spasms- Primary Hypertonicity of bladder Urinary retention Unspecified retention of urine documented in this encounter [facility] Work Phone: [phone] note* Diagnosis Urinary retention Unspecified retention of urine documented in this encounter [facility] Work Phone: [phone] note* Diagnosis Urinary retention Unspecified retention of urine documented in this encounter [facility] Work Phone: [phone] note* Diagnosis Prostate cancer (Multi)- Primary Malignant neoplasm of prostate Urinary retention Unspecified retention of urine Bladder spasm Hypertonicity of bladder Malignant neoplasm of prostate (Multi) Malignant neoplasm of prostate Urinary retention Unspecified retention of urine documented in this encounter [facility] Work Phone: [phone] and physical note Author Manisha Varela [facility] September 04, 2023 6:33pm Note Date/Time September 04, 2023 6 :23pm [facility] Medical Records Department [address] [place] [address] H&P Exam - Hospitalist 09/04/23 1820 MR#: [id number] Acct: [id number] Name: RAJAT GUZMÁN Rep #:[id number] : 1935 88 From: Manisha Varela MD PCP: Dr. John Mckeon, DO Status:ADM WESTLEY Location: [place] [address] HPI - General General Date of Admission: 09/04/23 Date of Service: 09/04/23 Chief Complaint: Gen weakness, abd pain, confusion HPI Narrative RAJAT GUZMÁN, is a 88-year-old male history of coronary artery disease, heart failure with reduced ejection fraction with dual AICD, BPH, hypertension presented to [facility] 09/04/2023 with generalized weakness. 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 In the ED white blood cell count 13.2, creatinine 1.39 up from baseline of 0.8?0.9, and UA suggestive of UTI. Patient started on fluids and Rocephin and CT abdomen pelvis obtained which demonstrated suspected bladder outlet obstruction with mild left ureteral dilation and hydronephrosis likely from prostatic enlargement. He was straight cathed x1 but given outlet obstruction Dr. Barth was consulted who recommended Rod catheter placement. Hospitalist contacted for admission due to patient's generalized weakness and confusion and inability to care for self at home in addition to his acute UTI and SINGH. Patient evaluated with family at bedside. Reportedly he had a stricture dilation 3 to 4 days ago and since then has been having some abdominal pain and has had difficulty urinating and only gets dribbles out. Was having small bowelmovements every time he tried to urinate but took antidiarrhea medication and has not had a bowel movement in the past couple days but his abdominal pain was getting worse and he was not able to get much of any urine out. Today he was feeling generally ill, had worsened abdominal pain and was weak and somewhat confused and he was brought to the ED as above. Patient already feeling better after Rod placement and antibiotics. Denies fevers or chills at home, denies other complaints at this time. [facility] Medical History (Updated 09/04/23 @ 18:[address] 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 Dyspnea Easy bruising Elevated troponin Essential hypertension Excessive bleeding Family history of CVA Family history of hypertension Fatigue FH: sudden cardiac (SCD) General weakness GERD (gastroesophageal reflux disease) High cholesterol High risk medication use History of CHF (congestive heart failure) History of echocardiogram History of placement of internal cardiac defibrillator History of stress test HLD (hyperlipidemia) HTN (hypertension) Hypokalemia Implantable cardioverter-defibrillator (ICD) at end of battery life Iron deficiency anemia Old myocardial infarction Orchitis of right testicle Otitis media Presence of stent in coronary artery (~12/28/18) Pure hypercholesterolemia SBO (small bowel obstruction) Sepsis Wears glasses Home Medications aspirin 81 mg chewable tablet 81 mg PO DAILY heart health 03/05/16 [History Last Taken 10/09/22] diphenhydramine 25 mg-acetaminophen 500 mg tablet (Tylenol PM Extra Strength) 2 tab PO QHS PRN Insomnia 10/22/17 [History Last Taken 12/27/18] nitroglycerin 0.4 mg sublingual tablet 0.4 mg sublingual Q5M PRN Chest Pain #25 tabs 02/17/22 [Rx Last Taken Unknown] finasteride 5 mg tablet 5 mg PO DAILY 03/05/22 [History Last Taken Unknown] tamsulosin 0.4 mg capsule 0.4 mg PO DAILY 03/05/22 [History Last Taken Unknown] furosemide 20 mg tablet 20 mg PO Q OTHER DAY 08/05/22 [History Last Taken Unknown] simvastatin 20 mg tablet See Rx Instructions .Route .COMPLEX #90 tabs 09/14/22 [Rx Last Taken Unknown] clopidogrel 75 mg tablet 75 mg PO DAILY #90 tabs 03/04/23 [Rx Last Taken Unknown] carvedilol 3.125 mg tablet 3.125 mg PO BID #180 tabs 06/17/23 [Rx Last Taken Unknown] sacubitril 49 mg-valsartan 51 mg tablet (Entresto) 1 tab PO BID #180 tabs 06/17/23 [Rx Last Taken Unknown] Allergy/AdvReac Type Severity Reaction Status Date / Time morphine Allergy Intermediate Rash Verified 09/04/23 15:20 zolpidem tartrate AdvReac Intermediate CONFUSION Verified 09/04/23 15:20 [From Ambien] Family History (Updated 07/09/23 @ 13:38 by Alexia Hendricks) Mother CAD (coronary artery disease) CVA (cerebral vascular accident) Myocardial infarction, Onset Age: 67 Hypertension Brother CAD (coronary artery disease) Hypertension Cancer Lung CA Myocardial infarction, Onset Age: 73 Father Myocardial infarction, Onset Age: 77 Daughter Cancer Son Myocardial infarction, Onset Age: 46 Other Cardiomyopathy, ischemic Chronic systolic congestive heart failure Fatigue General weakness Iron deficiency anemia Surgical History History of cardiac catheterization History of hernia repair History of left heart catheterization History of prostate surgery Hx of colonoscopy Hx of surgical procedure Presence of coronary artery bypass graft stent (~12/28/18) S/P TURP (status post transurethral resection of prostate) Social History household members: spouse Smoking Status: Never smoker alcohol intake: never substance use type: does not use caffeine: Yes Type: carbonated beverages and coffee Number of servings: 1 what type of physical activity do you participate in: none seatbelt use: always do you feel safe at home: Yes ROS ROS Narrative General: Denies fever/chills HENT: Denies headache, denies stuffy nose, denies sore throat EYES: Denies changes in vision Resp: Denies cough, denies shortness of breath Cardiac: Denies chest pain GI: Was having abdominal pain that is now resolved, has not had bowel movement in 2 days denies nausea/vomiting : Difficulty getting urine out Extremity: Denies swelling MSK: Generalized weakness Neuro: Denies any numbness/tingling Heme: Denies any bleeding or bruising Skin: Denies rashes Psychiatric: No complaints voiced Vital Signs Vital Signs Vital Signs: 09/04/23 15:20 09/04/23 17:31 09/04/23 18:13 Temperature 98.1 F 98.2 F Temperature Source Temporal Pulse Rate 95 67 82 Respiratory Rate 18 14 14 Blood Pressure 117/63 115/73 108/76 Blood Pressure Mean 81 87 86 Pulse Ox 98 97 97 Oxygen Delivery Method Room Air Room Air Weight Weight: 51.029 kg Body Mass Index (BMI) 19.9 Physical Exam Narrative General: Alert, oriented, no apparent distress HEENT: Atraumatic, normocephalic Eyes: Anicteric, normal conjunctiva, extraocular movements grossly intact Neck: Supple Respiratory: Clear to auscultation bilaterally, normal respiratory effort Cardiovascular: Regular rate and rhythm GI: Soft, nontender, nondistended Extremities: No edema Musculoskeletal: Moving all extremities Neuro: No overt focal neurological deficits Skin: No rashes appreciated Psych: Cooperative but was tearful at times Results Lab / Micro Data 09/04/23 16:15 09/04/23 16:15 Labs: Laboratory Results - last 24 hr 09/04/23 15:48: Urine Color Yellow, Urine Clarity Sl. Cloudy, Urine pH 6.0, Ur Specific Otto 1.020, Urine Protein 15 H, Urine Glucose (UA) Normal, Urine Ketones 50 H, Urine Occult Blood 150 H, Urine Nitrite Positive H, Urine Bilirubin Negative, Urine Urobilinogen Normal, Ur Leukocyte Esterase 25 H, UrineRBC 0-5 SEEN, Urine WBC 5-10 SEEN, Ur Squamous Epith Cells 0 SEEN, Urine Bacteria 1+, Urine Mucus 0 SEEN 09/04/23 16:15: WBC 13.2 H, RBC 3.84 L, Hgb 11.3 L, Hct 35.7 L, MCV 93.0, MCH 29.4, MCHC 31.7 L, RDW Std Deviation 49.5 H, RDW Coeff of Arleen 14.6, Plt Count 208, MPV 11.7, Immature Gran % (Auto) 0.400, Neut % (Auto) 77.7 H, Lymph % (Auto) 11.1 L, [place] % (Auto) 10.2 H, Eos % (Auto) 0.2, Baso % (Auto) 0.4, Absolute Neuts (auto) 10.3 H, Absolute Lymphs (auto) 1.47, Nucleated RBC % 0, Sodium 134 L, Potassium 4.2, Chloride 101, Carbon Dioxide 17.0 L, Anion Gap 16 H, BUN 35 H, Creatinine 1.39 H, Estim Creat Clear Calc 27.02, Est GFR (MDRD) Af Amer 62, Est GFR (MDRD) Non-Af 51 L, BUN/Creatinine Ratio 25.2 H, Glucose 94, Calcium 8.7, Total Bilirubin 1.80 H, AST 10 L, ALT 11 L, Alkaline Phosphatase 54, Total Protein 7.2, Albumin 3.4, Globulin 3.8, Albumin/Globulin Ratio 0.9, Lipase 11 L Radiology Impression Abdomen/Pelvis CT 09/04/23 16:40 IMPRESSION: Suspect bladder outlet obstruction with mild left ureteral dilatation and hydronephrosis, likely from the prostatic enlargement.. Electronically Signed: Leroy Barrett MD at 17:36 EDT Reading Location ID and State: [id number] / [employer] Tel , Service support , Chest X-Ray 09/04/23 16:52 IMPRESSION: No active disease. Electronically Signed: Leroy Barrett MD at 17:27 EDT Reading Location ID and State: [id number] / [employer] Tel , Service support , Assessment & Plan Assessment/Plan (1) SINGH (acute kidney injury): (2) Atherosclerotic heart disease of [place] coronary artery without angina pectoris: QUALIFIERS: [place] vs. 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 -Rod catheter placed -Treat underlying infection -Will need follow with urology, if patient continues rapid improvement can consider outpatient follow-up versus inpatient -We will continue finasteride and tamsulosin in the event patient will be able to have Rod catheter removed in the future #SINGH -Suspect in part obstructive -Baseline creatinine 0.8-0.9, presently 1.39 -We will give very gentle hydration given his history and hold his Lasix with daily weights and I's and O's -If not improving can get further urine studies #History of chronic heart failure with reduced ejection fraction with dual AICD -We will need to monitor fluid status closely -Daily weights, I's and O's -EF 11/08/2020 was 25% with wall motion abnormalities -Continue Coreg, unclear if patient is still taking Entresto, will need to be reevaluated once med list finalized #History of coronary artery disease with stenting -Continue aspirin, Plavix #DVT ppx: Heparin subcu Manisha Varela MD Charges/Coding Visit Charges Inpatient E&M: 05915 Init Hosp L2 09/04/23 1833 <Electronically signed by Manisha Varela MD> Cosigner Signature (if applicable): CC: Dr. John Mckeon, DO; Dr. Manisha Varela MD~ Signed [facility] Work Phone: Hospital Discharge instructions Additional Instructions Implant Used[facility] Work Phone: Reason for referral (narrative)No reason for referral information availableHocking [facility] Work Phone: Reason for visit Narrative* Auth/Cert Specialty Diagnoses / Procedures Referred By Krys t Referred To Contact Diagnoses Urinary retention Urinary retention [R33.9] Procedures [place] CYSTOSTOMY CYSTOTOMY W/DRAINAGE Cystotomy Suprapubic Asmita Zambrano MD [address] [place] [address] [address] Referral ID Status Reason Start Date Expiration Date Visits Re quested Visits Authorized [id number] 1 1 [facility] Work Phone: Reason for visit Narrative* /Urology (Routine) - Authorized Specialty Diagnoses / Procedures Referred By Contac t Referred To Contact Urology Diagnoses Other retention of urine Procedures NH CHANGE CYSTOSTOMY TUBE SIMPLE [facility] [address] [facility] [address] [place] [address] Phone: tel: fax: Asmita Zambrano MD [address] [place] [address] Phone: tel: fax: Referral ID Status Reason Start Date Expiration Date V isits Requested Visits Authorized [id number] Authorized 11/28/2024 11/28/2025 1 1 [facility] Work Phone: reason for visit Narrative* Consultation (Routine) - Authorized Specialty Diagnoses / Procedures Referred By Contac t Referred To Contact Urology Diagnoses Urinary retention Procedures Follow Up In Urology Jian Mcdermott MD [facility] [address] [place] [address] Phone: tel: fax: Referral ID Status Reason Start Date Expiration Date V isits Requested Visits Authorized [id number] Authorized 04/09/2025 04/09/2026 1 1 [facility] Work Phone: Advance Directives No Advanced Directives Records FoundDocuments on File Type Date Recorded 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 Advance Directive(s) 06/10/2016 3:34 PM Advance Directive Response Recorded Date/ Time Advance Directives Yes September 6:49pm Living Will No November 15 7:07pm Power of Rn Clinical Review No November 15, 2020 7:07pm Advance Directive Response Recorded Date/ Time Advance Directives Yes September 5:49pm Living Will No November 15 6:07pm Power of Rn Clinical Review No November 15, 2020 6:07pm Advance Directive Response Recorded Date/ Time Advance Directives Yes September 5:49pm Living Will No October 16 1:05pm Power of Rn Clinical Review No October 16, 2022 1:05pm Advance Directive Response Recorded Date/ Time Name of Medical Power of Rn Clinical Review unknown December 27, 2022 9:53pm Advance Directives Yes September 5:49pm Living Will Yes December 27 023 9:53pm Power of Rn Clinical Review Yes December 27, 2022 9:53pm Advance Directive Response Recorded Date/ Time Name of Medical Power of Rn Clinical Review unknown December 27, 2022 10:53pm Name of Medical Power of Rn Clinical Review UNKNOWN January 06, 2023 10:21am Advance Directives Yes September 6:49pm Living Will No January 06, 2023 10:21am Power of Rn Clinical Review Yes January 06 10:21am Advance Directive Response Recorded Date/ Time Advance Directives Yes September 6:49pm Living Will No January 06, 2023 10:21am Power of Rn Clinical Review Yes January 06 10:21am Advance Directive Response Recorded Date/ Time Advance Directives Yes September 6:49pm Living Will No September 04 4:38pm Power of Rn Clinical Review No September 04, 2023 4:38pm Advance Directive Response Recorded Date/ Time Advance Directives Yes September 5:49pm Living Will No September 04 7:17pm Power of Rn Clinical Review No September 04, 2023 7:17pm Advance Directive Response Recorded Date/ Time Advance Directives Yes September 5:49pm Living Will No October 20 023 4:11pm Power of Rn Clinical Review No October 20, 2023 4:11pm Advance Directive Response Recorded Date/ Time Advance Directives Yes September 5:49pm Living Will No October 11 023 1:45pm Power of Rn Clinical Review No October 11, 2023 1:45pm Date Activated Date Inactivated Comments 07/25/2024 8:59 AM Question Answer Comments Plan of Care: Code Status Discussion Completed Decision Maker: Patient Date Activated Date Inactivated Comments 07/25/2024 8:59 AM Question Answer Comments Plan of Care: Code Status Discussion Completed Decision Maker: Patient Advance Directive Response Recorded Date/ Time Living Will No March 30, 2024 3 :36am Do you have a Healthcare Power of Rn Clinical Review? Yes March 30, 2024 3:36am Living Will Yes December 16 4:11pm Do you have a Healthcare Power of Rn Clinical Review? 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 History of placement of internal cardiac defibrillator 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, ischemic Dyspnea Essential hypertension History of placement of internal cardiac defibrillator Pure hypercholesterolemia Stented coronary artery Chief Complaint 6 M FU 3 mos remote ICD f/u Dizziness, on Entresto [place] Reason for Visit Atherosclerotic hear t disease of [place] coronary artery without angina pectoris Cardiomyopathy, ischemic Dyspnea Essential hypertension History of placement of internal cardiac defibrillator Pure hypercholesterolemia Stented coronary artery Cardiomyopathy, ischemic Chronic systolic congestive heart failure 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 History of placement of internal cardiac defibrillator Chief Complaint 3 mos remote ICD f/u 1 Y FU Reason for Visit Cardiomyopathy, isch emic Chronic systolic congestive heart failure 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, ischemic Essential hypertension History of placement of internal cardiac defibrillator Pure hypercholesterolemia Stented coronary artery Chief Complaint 3 mos remote ICD f/u 1 Y FU cysto with dilation of urethral stricture Reason for Visit Cardiomyopathy, isch emic Chronic systolic congestive heart failure 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, ischemic Essential hypertension History of placement of internal cardiac defibrillator Pure hypercholesterolemia Stented coronary artery Chief Complaint cysto with dilation of urethral stricture REMOTE CHECK abd pain Reason for Visit Dual ICD (implantabl e cardioverter-defibrillator) in place History of placement of internal cardiac defibrillator Chief Complaint abd pain ABDOMINAL PAIN Amb Documentation 3 mos remote ICD f/u 6 MO F/U (PFM PT) Reason for Visit Cardiomyopathy, isch emic Chronic systolic congestive heart failure 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, ischemic Chronic systolic congestive heart failure Coronary artery disease 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 Dyslipidemia Essential hypertension Presence of stent in coronary artery Chief Complaint Amb Documentation 3 mos remote ICD f/u 6 MO F/U (PFM PT) ABDOMINAL PAIN PULMONARY NODULES Reason for Visit Cardiomyopathy, isch emic Chronic systolic congestive heart failure 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 Lorson E ORDERS Chief Complaint ABDOMINAL PAIN PULMONARY NODULES BP Check per L. Lorson E ORDERS INT LABS Chief Complaint PULMONARY NODULES BP Check per L. 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 Acute dehydration Acute metabolic encephalopathy SINGH (acute kidney injury) Episode of generalized weakness Chief Complaint E ORDERS INT LABS PSA Pacer Check Remote UTI, SINGH, GENERAL WEAKNESS UTI, SINGH, GENERAL WEAKNESS UTI, SINGH, GENERAL WEAKNESS E-ORDER PREOP Transurethral Resection of Prostate Reason for Visit Urinary retention UTI (urinary tract infection) 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, 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 Acute dehydration Acute metabolic encephalopathy SINGH (acute kidney injury) Episode of generalized weakness Chief Complaint PSA Pacer Check Remote UTI, SINGH, GENERAL WEAKNESS UTI, SINGH, GENERAL WEAKNESS UTI, SINGH, GENERAL WEAKNESS E-ORDER PREOP Transurethral Resection of Prostate OVERDUE FOR F/U Reason for Visit Urinary retention UTI (urinary tract infection) 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 Acute dehydration Acute metabolic encephalopathy SINGH (acute kidney injury) Episode of generalized weakness Chief Complaint Admit Date 6 m fu PREV AR PT WANTS TO SWITCH Celi y 2024 10:54am Pacer Check Remote December 01, 2024 4 :00am FLU December 16, 2024 2:57pm Reason for Visit Admit Date Cardiomyopathy, ischemic November 10, 2 025 10:54am Dual ICD (implantable cardioverter-defib rillator) in place November 10, 2024 10:54am Dyslipidemia November 10, 2024 1 0:54am Essential hypertension November 10 10:54am Presence of stent in coronary artery [place] 2024 10:54am Family History No Family History Records Found Relationship Condition Age at Onset Recorded Date/T enid mother Coronary artery disease Unknown Cerebrovascular accident (CVA) Unknown Myocardial infarction 67 Hypertension Unknown brother Coronary artery disease Unknown Malignant neoplasm Unknown Myocardial infarction 73 father Myocardial infarction 77 daughter Malignant neoplasm Unknown son Myocardial infarction 46 Relationship Condition Age at Onset Recorded Date/T en[place] Not Specified Fatigue Unknown Ischemic cardiomyopathy Unknown Iron deficiency anemia Unknown Weakness Unknown Chronic systolic con gestive heart failure Unknown mother Coronary artery disease Unknown Cerebrovascular accident (CVA) Unknown Myocardial infarction 67 Hypertension Unknown brother Coronary artery disease Unknown Malignant neoplasm Unknown Myocardial infarction 73 father Myocardial infarction 77 daughter Malignant neoplasm Unknown son Myocardial infarction 46 Summary Purpose Reason for Referral Specialty Diagnoses / Procedures Referred By Contac t Referred To Contact Radiology Diagnoses Abnormal digital rectal exam Procedures CT pelvis w IV contrast Asmita Zambrano MD [address] [place] [id number] Referral ID Status Reason Start Date Expiration Date Visits Requested Visits Authorized [id number] Pending Review Perform Procedure 04/26/2024 04/26/2025 1 1 Specialty Diagnoses / Procedures Referred By Contac t Referred To Contact Radiology Diagnoses Malignant neoplasm of prostate (Multi) Procedures CT abdomen pelvis w IV contrast Asmita Zambrano MD [address] [place], [place] [id number] Referral ID Status Reason Start Date Expiration Date Visits Requested Visits Authorized [id number] Pending Review Perform Procedure 06/28/2024 06/28/2025 1 1 Referral ID Status Reason Start Date Expiration Date Visits Requested Visits Authorized [id number] Authorized Perform Procedure 06/28/2024 06/28/2025 1 1 Specialty Diagnoses / [facility] Referred To Contact Diagnoses Malignant neoplasm of prostate (Multi) Asmita Zambrano MD [address] [place] [id number] Referral ID Status Reason Start Date Expiration Date V isits Requested Visits Authorized [id number] Pending Review 07/12/2024 07/12/2025 1 1 Additional Source Comments Source Comments (unrecognize d section and content) In the event this informatio n is protected by the Federal Confidentiality of Alcohol and Drug Abuse Patient Records regulations: The Federal rules restrict any use of the information to criminally investigate or prosecute any alcohol or drug abuse patient.[facility] Reason for Visit (unrecogniz ed section and content) Reason Onset Date Comments Refill Request 10/18/2011 Reason Comments CYSTOSCOPY Reason Comments PROSTATE BIOPSY Reason Comments TRUS RESULTS Specialty Diagnoses / Procedures [facility] Referred To Contact Radiology Diagnoses Malignant neoplasm of prostate (Multi) Procedures CT abdomen pelvis w IV contrast Asmita Zambrano MD [address] [place] [address] Referral ID Status Reason Start Date Expiration Date Visits Requested Visits Authorized [id number] Authorized Perform Procedure 06/28/2024 06/28/2025 1 1 Reason Comments LUPRON AND CT RESULTS Specialty Diagnoses / Procedures Referred By [facility] Referred To Contact Diagnoses Malignant neoplasm of prostate (Multi) Asmita Zambrano MD [address] [place] [address] Referral ID Status Reason Start Date Expiration Date V isits Requested Visits Authorized [id number] Pending Review 07/12/2024 07/12/2025 1 1 Reason Comments ROD CHANGE Specialty Diagnoses / Procedures Referred By [facility] Referred To Contact Urology Diagnoses Retention of urine, unspecified Procedures [place] CHANGE CYSTOSTOMY TUBE SIMPLE [address] [address] Phone: tel: fax: Asmita Zambrano MD [address] [place] [address] Phone: tel: fax: Referral ID Status Reason Start Date Expiration Date V isits Requested Visits Authorized [id number] Authorized 12/27/2024 12/27/2025 1 1 Goals (unrecognized section and content) Goals may be documented in a n alternate sectionGoals may be documented in an alternate sectionGoals may be documented in an alternate sectionGoals may be documented in an alternate sectionGoals may be documented in an alternate sectionGoals may be documented in an alternate sectionGoals may be documented in an alternate sectionGoals may be documented in an alternate sectionGoals may be documented in an alternate sectionGoals may be documented in an alternate section Care Teams (unrecognized sec tion and content) Team Status: Active Member Role Status Dates Dr. Shailesh Mancini MD Family Provider Active Dr. Shailesh Mancini MD Primary Care Provider Active Team Status: Inactive Member Role Status Dates Dr. Shailesh Mancini MD Primary Care Provider, Referring Provider Active Sloane Grubbs Attending Provider Active Team Status: Inactive Member Role Status Dates Dr. Shailesh Mancini MD Primary Care Provider Active Dr. Faisal Barth MD Attending Provider, Referr ing Provider Active Team Status: Inactive Member Role Status Dates Dr. Shailesh Mancini MD Primary Care Provider Active Murray Morgan MD Emergency Provider Active Team Status: Active Member Role Status Dates Dr. Shailesh Mancini MD Family Provider Active Dr. John Mckeon DO Primary Care Provider Active Team Status: Inactive Member Role Status Dates Sloane Grubbs Active Dr. John Mckeon DO Primary Care Provider Active Dr. Timoteo Mullins MD Attending Provider, Referring Pro vider Active Team Status: Inactive Member Role Status Dates Dr. John Mckeon DO Primary Care Provider, Referrin g Provider Active Dr. Ana Paula Harrington MD Attending Provider Active Team Status: Active Member Role Status Dates Dr. John Mckeon DO Primary Care Provider Active Abril Daly Attending Provider Active Team Status: Inactive Member Role Status Dates Dr. Shailesh Mancini MD Primary Care Provider Active Murray Morgan MD Attending Provider, Emergency Provid er Active Team Status: Inactive Member Role Status Dates Dr. Henok Villarreal MD Attending Provider, Emergency Provi stevie Active Dr. John Mckeon DO Primary Care Provider Active Team Status: Inactive Member Role Status Dates Dr. John Mckeon DO Primary Care Prov ider, Attending Provider, Referring Provider Active Team Status: Inactive Member Role Status Dates Dr. John Mckeon DO Primary Care Provider, Referrin g Provider Active Alexia Hendricks Attending Provider Active Team Status: Inactive Member Role Status Dates Dr. John Mckeon DO Primary Care Provider Active Cynthia Bowen [employer], [employer] NANNY-C Attending Provider, Referring P mary bethder Active Team Status: Active Member Role Status Dates Dr. John Mckeon DO Primary Care Provider Active Dr. Faisal Barth MD Attending Provider, Referr ing Provider Active Team Status: Active Member Role Status Dates Dr. John Mckeon DO Primary Care Provider Active Murray Morgan MD Emergency Provider Active Dr. Manisha Varela MD Admit Provider, Attending Provid er Active Team Status: Active Member Role Status Dates Dr. John Mckeon DO Primary Care Provider Active Murray Morgan MD Emergency Provider Active Dr. Manisha Varela MD Admit Provider, Other Provider A ctive Dr. Natanael Nowak MD Attending Provider, Other Provider Active Team Status: Inactive Member Role Status Dates Dr. John Mckeon DO Primary Care Provider Active Dr. Faisal Barth MD Attending Provider, Referr ing Provider Active Team Status: Active Member Role Status Dates Dr. John Mckeon DO Primary Care Provider Active Murray Moragn MD Emergency Provider Active Dr. Manisha Varela MD Admit Provider, Other Provider A ctive Dr. Natanael Nowak MD Attending Provider Active Team Status: Active Member Role Status Dates Dr. John Mckeon DO Primary Care Provider Active Murray Morgan MD Emergency Provider Active Dr. Manisha Varela MD Admit Provider, At tending Provider, Other Provider Active Dr. Natanael Nowak MD Other Provider Active Team Status: Inactive Member Role Status Dates Dr. John Mckeon DO Primary Care Provider Active Murray Morgan MD Emergency Provider Active Dr. Manisha Varela MD Admit Provider, At tending Provider, Other Provider Active Dr. Natanael Nowak MD Other Provider Active Team Status: Inactive Member Role Status Dates Dr. John Mckeon DO Primary Care Provider, Attendin g Provider Active Team Status: Active Member Role Status Dates Dr. John Mckeon DO Primary Care Provider Active Dr. Nika Gan MD Attending Provider Activ e Dr. Zacarias Valdes MD Referring Provider Active Team Status: Inactive Member Role Status Dates Dr. John Mckeon DO Primary Care Provider Active Dr. Timoteo Mullins MD Attending Provider Active Team Status: Inactive Member Role Status Dates Dr. John Mckeon DO Primary Care Provider Active Dr. Faisal Barth MD Admit Provid er, Attending Provider, Referring Provider Active Team Status: Inactive Member Role Status Dates Dr. John Mckeon DO Primary Care Provider Active Dr. Zacarias Valdes MD Attending Provider, Referring Prov ider Active Team Status: Inactive Member Role Status Dates Dr. John Mckeon DO Primary Care Provider, Referrin g Provider Active Cynthia Bowen [employer], [employer] IN [employer]ANNY-C Attending Provider Active Team Status: Inactive Member Role Status Dates Dr. John Mckeon DO Primary Care Provider Active Dr. Timoteo Mullins MD Attending Provider, Referring Pro vider Active [employer] Relationship Specialty Start Date End Date John Mckeon DO [address] [place] [phone] PCP - General Family Medicine 03/14/24 [employer] Relationship Specialty Start Date End Date John Mckeon [address] [place] [phone] PCP - General Family Medicine 03/14/24 [employer] Relationship Specialty Start Date End Date John Mckeon [address] [place] [phone] PCP - General Family Medicine 03/14/24 [employer] Relationship Specialty Start Date End Date John Mckeon [address] [place] [address] PCP - General Family Medicine 03/14/24 [employer] Relationship Specialty Start Date End Date John Mckeon DO [address] [place] [address] PCP - General Family Medicine 03/14/24 [employer] Relationship Specialty Start Date End Date John Mckeon DO [address] [place] [phone] PCP - General Family Medicine 03/14/24 [employer] Relationship Specialty Start Date End Date John Mckeon DO [address] [place] [phone] PCP - General Family Medicine 03/14/24 [employer] Relationship Specialty Start Date End Date John Mckeon DO [address] [place] [phone] PCP - General Family Medicine 03/14/24 [employer] Relationship Specialty Start Date End Date John Mckeon DO [address] [place] [address] PCP - General Family Medicine 03/14/24 [employer] Relationship Specialty Start Date End Date John Mckeon DO [address] [place] [phone] PCP - General Family Medicine 03/14/24 [employer] Relationship Specialty Start Date End Date John Mckeon DO [address] [place] [phone] PCP - General Family Medicine 03/14/24 Team Status: Active Member Role Status Dates Dr. John Mckeon DO Primary Care Provider Active Team Status: Inactive Member Role Status Dates Dr. John Mckeon DO Primary Care Provider Active Start: November 10, 2024 End: November 10, 2024 Dr. John Mckeon DO Referring Provider Active Start: November 10, 2024 End: November 10, 2024 Dr. Timoteo Mullins MD Attending Provider Active S tart: November 10, 2024 End: November 10, 2024 Team Status: Inactive Member Role Status Dates Dr. John Mckeon DO Primary Care Provider Active Start: December 01, 2024 End: December 01, 2024 Dr. Timoteo Mullins MD Attending Provider Active S tart: December 01, 2024 End: December 01, 2024 Dr. Timoteo Mullins MD Referring Provider Active S tart: December 01, 2024 End: December 01, 2024 Team Status: Inactive Member Role Status Dates Dr. John Mckeon DO Primary Care Provider Active Start: December 08, 2024 End: December 08, 2024 Dr. John Mckeon DO Attending Provider Active Start: December 08, 2024 End: December 08, 2024 Team Status: Inactive Member Role Status Dates Dr. John Mckeon DO Primary Care Provider Active Start: December 16, 2024 End: December 16, 2024 Dr. Timoteo Mckenna DO Attending Provider Active S tart: December 16, 2024 End: December 16, 2024 Dr. Timoteo Mckenna DO Emergency Provider Active S tart: December 16, 2024 End: December 16, 2024 Team Status: Inactive Member Role Status Dates Dr. John Mckeon DO Primary Care Provider Active Start: February 05, 2025 End: February 05, 2025 Dr. John Mckeon DO Attending Provider Active Start: February 05, 2025 End: February 05, 2025 [employer] Relationship Specialty Start Date End Date John Mckeon DO [address] [place] [phone] PCP - General Family Medicine 03/14/24 [employer] Relationship Specialty Start Date End Date John Mckeon DO [address] [place] [phone] PCP - General Family Medicine 03/14/24 (unrecognized sect ion and content) No Status Records FoundNo Status Records FoundNo Status Records Found INFORMATION SOURCE (unrecogn ized section and content) DATE CREATED AUTHOR 07/25/2024 [facility] DATE CREATED AUTHOR AUTHOR'S ORGANIZ ATION 04/25/2025 [facility] DATE CREATED AUTHOR AUTHOR'S ORGANIZ ATION 04/26/2025 [facility] Scheduled Active and Recently Administ ered Medications (unrecognized section and content) Medication Order 07/23/2024 07/24/2024 07/25/2024 ondansetron (Zofran) injection 4 mg (COMPLETED) 4 mg, intravenous, Once, On Wed07/25/24 at 1030, For 1 dose, Preprocedure, When administering via IV Push, administer over 3-5 minutes. 1017 (Given - Provid er: Yady Simental RN) Continuous Medication Order 07/23/2024 07/24/2024 07/25/2024 lactated Ringer's infusion 20 mL/hr, intravenous, Continuous, Starting on Wed07/25/24 at 0915, Preprocedure 0921 (New Bag - Prov ider: Yady Simental RN) lactated Ringer's infusion 100 mL/hr, intravenous, Continuous, Starting on Wed07/25/24 at 1030, Preprocedure 1030 (Due) lactated Ringer's infusion 100 mL/hr, intravenous, Continuous, Starting on Wed07/25/24 at 1200, Recovery (only) 1200 (Due) PRN Medication Order 07/23/2024 07/24/2024 07/25/2024 HYDROmorphone (Dilaudid) injection 0.5 mg 0.5 mg, intravenous, Every 5 min PRN, pain mild (1-3), first line, Starting on Wed07/25/24 at 1138, Recovery (only), Max total of 4 mg regardless of dose. HYDROmorphone (Dilaudid) injection 0.5 mg 0.5 mg, intravenous, Every 5 min PRN, pain moderate (4-6), first line, Starting on Wed07/25/24 at 1138, Recovery (only), Max total of 4 mg regardless of dose. HYDROmorphone (Dilaudid) injection 0.5 mg 0.5 mg, intravenous, Every 5 min PRN, pain severe (7-10), first line, Starting on Wed07/25/24 at 1138, Recovery (only), Max total of 4 mg regardless of dose. lidocaine-epinephrine (Xylocaine W/EPI) 1 %-1:100,000 injection (CANCELED) As needed, Starting on Wed07/25/24 at 1110, Intraprocedure 1110 (Given - Provid er: Asmita Zambrano MD) ondansetron (Zofran) injection 4 mg 4 mg, intravenous, Once as needed, nausea/vomiting, first line, Starting on Wed07/25/24 at 1138, For 1 dose, Recovery (only), When administering via IV Push, administer over 3-5 minutes. oxygen (O2) therapy inhalation, Continuous PRN - O2/gases, other, Starting on Wed07/25/24 at 1138, Recovery (only), Device: Nasal Cannula, Rate in liters per minute: Other, Custom Value: 1-6 LPM, Keep O2 Sat Above: 92% promethazine (Phenergan) 12.5 mg in sodium chloride 0.9% 50 mL IV 12.5 mg, intravenous, Administer over 15 Minutes, Once as needed, nausea/vomiting, first line, Nausea/vomiting, second line, Starting on Wed07/25/24 at 1138, For 1 dose, Recovery (only) FOR RECORDS PERTAINING TO PATIENTS WHO ARE [...] BE BASED ON THE PRIMARY CLINICAL RECORDS. [facility]. provides no warranty or guarantee of the accuracy or completeness of information in this document.
[2025-04-27 21:03] LABS: Mucous, Urine 0 SEEN /hpf (<or=2+); Squamous Epithelial Cells - UA 0 SEEN /hpf (0-5)
[2025-04-27 21:05] LABS: Absolute Lymphocyte Count 1.92 X10^3/uL (0.83-4.51); Basophil# 0.05 X10^3/uL; Basophil% 0.5 % (0-1); Hemoglobin 12.2 g/dL (13.0-16.5); Lymphocyte # 1.92 X10^3/ul (0.83-4.51); Lymphocyte % 19.6 % (19-41); Mean Corp Hgb Conc 33.9 g/dL (32-36); Mean Corpuscular Hgb 30.3 pg (27.0-32.0); Mean Corpuscular Volume 89.3 fL (80-94); Mean Platelet Vol. 11.6 fl (6.2-12.0); Monocyte# 0.73 X10^3/uL; Monocyte% 7.4 % (0-10); NRBC Flagged by Analyzer 0 % (0-5); Neutrophil # 6.96 X10^3/uL (2.7-7.7); Neutrophil % 71.1 % (47-70); Platelet Count 201 K/mm3 (150-450); RBC Distribution Width CV 13.6 % (11.6-14.6); RBC Distribution Width SD 43.9 fl (35.1-43.9); Red Blood Count 4.03 M/mm3 (4.6-6.2); White Blood Count 9.8 K/mm3 (4.4-11.0)
[2025-04-27 21:08] LABS: Lipase 15 U/L (13-75)
[2025-04-27 21:14] LABS: ALB/GLOB Ratio 1.2 RATIO (0.9-2.4); AST(SGOT) 30 U/L (<=37); Alanine Aminotransfer ALT/SGPT 15 U/L (<=46); Alkaline Phosphatase 65 U/L (40-129); Anion Gap 12 (5-15); BUN 13 mg/dL (4-19); BUN/Creat Ratio 14.1 RATIO (10-20); Calcium,Total 9.2 mg/dL (7.6-11.0); Carbon Dioxide 23.2 mmol/L (21.0-32.0); Chloride 100 mmol/L (98-108); EST Glomerular Filtration Rate 82 (>60); Estimated Creatinine Clearance 42.74 ml/min (50-250); Globulin 3.3 g/dL (2.2-4.2); Glucose 285 mg/dL (70-99); Potassium 4.2 mmol/L (3.3-5.1); Protein, Total 7.3 g/dL (5.9-8.4); Sodium Level 135 mmol/L (133-145); Total Bilirubin 0.75 mg/dL (0.00-1.30)
[2025-04-27 21:21] LABS: Color, Urine Yellow (Yellow); Glucose, Dipstick 1000 mg/dl (Normal); Ketone-Dipstick 5 mg/dl (Negative); Leukocyte Esterase-Dipstick 500 /ul (Negative); Nitrite-Dipstick Positive (Negative); Occult Blood-Urine 25 /ul (Negative); Protein-Dipstick 30 mg/dl (Negative); Specific Gravity, Urine 1.015 (1.002-1.030); Urine Bilirubin Dipstick Negative (Negative); Urine Clarity Sl. Cloudy (Clear); Urine Urobilinogen Normal (Normal)
[2025-04-27 21:31] LABS: White Blood Cells 25-50 SEEN /hpf (0-5)
[2025-04-27 21:32] LABS: Bacteria 2+ /hpf (None Seen); Red Blood Cells-Urine 0-5 SEEN /hpf (0-5)
[2025-04-27] MEDS: Ceftriaxone 1 GM/50 ML BAG IV (22:36)
[2025-04-27] MEDS: Phenazopyridine 95 MG Tablet 190 MG PO (22:36)
[2025-04-27 23:07] VITALS: BP 146/60; PULSE 100; RESP 18; TEMP 36.8; O2SAT 97
== END 2025-04-27 23:07 | disposition home or self-care (01) ==
PROVIDERS: Emergency Provider Emergency Medicine; PCP Family Medicine; Visit Provider Emergency Medicine
DX: N39.0 Urinary tract infection, site not specified (principal); I25.10 Atherosclerotic heart disease of native coronary artery without angina pectoris; R19.7 Diarrhea, unspecified; Z95.810 Presence of automatic (implantable) cardiac defibrillator; Z95.5 Presence of coronary angioplasty implant and graft; I25.2 Old myocardial infarction; E78.5 Hyperlipidemia, unspecified; I10 Essential (primary) hypertension
CPT/HCPCS: 99282; 80053; 81001; 83690; 85025; 87077; 87086; 87088; A4216; J2405

== ENCOUNTER 2025-04-28 15:25 | Inpatient (IN) | payer MEDICARE, SELFPAY ==
[2018-12-28 14:17] VITALS: BMI 22.3
[2025-04-28 15:25] VITALS: BP 150/80; PULSE 90; RESP 16; TEMP 36.8; O2SAT 98; BMI 20.9
--- NOTE | 2025-04-28 16:06 | EDS_ITS ---
HPI History of Present Illness Chief Complaint: Complaint Detail of Chief Complaint: Urinary symptoms, nausea and vomiting and now dry heaves Informant: patient and family (Daughter who lives near him) Onset/Context/Timing Onset: Yesterday and Days (Has not eaten well for the past 2 to 3 days.) Context: Sudden Onset Timing: Continuous Quality: Patient diagnosed with UTI yesterday, now has nausea and vomiting Location: and GI Current Severity: Mild Maximum Severity: Moderate Worsened by: Attempt to eat or drink anything or urinate Relieved by: Nothing Associated Symptoms Associated Symptoms: Subjective fever no chills. Narrative Narrative: Patient is an 89-year-old male. He was seen yesterday. He drove himself to the ER yesterday. He has not eaten well according to daughter for the past 2 to 3 days. Patient does admit he has not eaten well. He was diagnosed yesterday with a UTI. He was placed on cephalexin 500 mg. Patient has not been able to take 1 dose because of nausea vomiting and now dry heaves. He denies headache, double vision blurred vision loss of vision. He denies ringing in ears decreased hearing. Denies trouble with speech or swallowing. He does endorse thirst and dry mouth. He denies cardiac or respiratory symptoms. He denies abdominal pain. He does endorse nausea vomiting and dry heaves. He denies diarrhea or constipation. He does admit to dark urine, dysuria and frequency. He denies testicular pain. He denies pain in the perineal area. 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 General weakness Otitis media Elevated troponin Orchitis of right testicle Sepsis Implantable cardioverter-defibrillator (ICD) at end of battery life Essential hypertension Family history of CVA Family history of hypertension FH: sudden cardiac (SCD) History of placement of internal cardiac defibrillator HTN (hypertension) Old myocardial infarction Angina pectoris Cardiomyopathy, ischemic Chronic systolic congestive heart failure HLD (hyperlipidemia) Abnormal result of cardiovascular function study, unspecified High risk medication use Iron deficiency anemia Chest pain, precordial Atherosclerotic heart disease of [place] coronary artery without angina pectoris Dyspnea Fatigue Hypokalemia Benign prostatic hypertrophy SBO (small bowel obstruction) Home Medications ?Medication ?Instructions ?Recorded ?Last Taken ?Type aspirin 81 mg tablet,delayed 81 mg PO DAILY 05/23/24 U nknown History release (Adult Low Dose Aspirin) dupilumab 300 mg/2 mL subcutaneous 300 mg subcut Q2W 0 05/23/24 Unknown History pen injector nitroglycerin 0.4 mg sublingual 0.4 mg sublingual Q5M PRN Chest 05/23/24 Unknown Rx tablet Pain #25 tabs tamsulosin 0.4 mg capsule 0.4 mg PO QDAY 05/23/24 Unkn own History simvastatin 20 mg tablet 20 mg PO QHS for cholesterol #90 08/23/24 Unknown Rx TABLETS carvedilol 6.25 mg tablet 6.25 mg PO BID #60 tabs 11/01 Unknown Rx oxybutynin chloride 5 mg 5 mg PO QDAY 11/10/24 Unknow n History tablet,extended release 24 hr prednisone 5 mg tablet 5 mg PO QDAY 11/10/24 Unknow n History ondansetron 4 mg disintegrating 4 mg PO Q8H PRN PRN Na usea #10 tabs 12/16/24 Unknown Rx tablet sacubitril 24 mg-valsartan 26 mg 1 tab PO BID #60 tabs 03/14/25 Unknown Rx tablet (Entresto) cephalexin 500 mg capsule 500 mg PO Q6 #28 CAPSULES Unknown Rx phenazopyridine 200 mg tablet 200 mg PO TID 6 doses #5 tabs 04/27/25 Unknown Rx (Pyridium) Allergy/AdvReac Type Severity Reaction Status Date / Time morphine Allergy Intermediate Rash Verified 04/28/25 15:27 zolpidem tartrate (From AdvReac Intermediate CONFUSION Verified 04/28/25 15:27 Ambien) Family History Mother CAD (coronary artery disease) CVA (cerebral vascular accident) Myocardial infarction, Onset Age: 67 Hypertension Brother CAD (coronary artery disease) Hypertension Cancer Lung CA Myocardial infarction, Onset Age: 73 Father Myocardial infarction, Onset Age: 77 Daughter Cancer Son Myocardial infarction, Onset Age: 46 Other Cardiomyopathy, ischemic Chronic systolic congestive heart failure Fatigue General weakness Iron deficiency anemia Surgical History H/O dilation of urethra Hx of transurethral resection of prostate Presence of coronary artery bypass graft stent (~12/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) History of cardiac catheterization Hx of colonoscopy Hx of surgical procedure History of hernia repair History of prostate surgery History of left heart catheterization Social History household members: spouse Smoking Status: Never smoker alcohol intake: never substance use type: does not use caffeine: Yes Type: carbonated beverages and coffee Number of servings: 1 what type of physical activity do you participate in: none seatbelt use: always do you feel safe at home: Yes ROS ROS ED Constitutional Constitutional ED: Reports chills and subjective; Denies sweats Eyes Eyes: Denies blurry vision, change in vision or diplopia ENT ENT ED: Denies ear pain or rhinorrhea Cardiovascular Cardiovascular: Denies chest pain, orthopnea, palpitations, paroxysmal nocturnal dyspnea or racing heartbeat Respiratory/Chest Respiratory/Chest: Denies cough, dyspnea, dyspnea on exertion, orthopnea or paroxysmal nocturnal dyspnea Gastrointestinal Gastrointestinal: Reports nausea and vomiting; Denies abdominal pain, diarrhea or melena Genitourinary Genitourinary ED: Reports dysuria, hematuria and urinary frequency Musculoskeletal Musculoskeletal: Denies arthralgias, back pain or myalgias Integumentary Denies rash Neurologic Neurologic: Reports weakness; Denies headache(s) or paresthesias Psychiatric Psychiatric: Denies anxiety or depression Endocrine Endocrinology: Denies cold intolerance or heat intolerance Hematologic/Lymphatic Hematologic/Lymphatic: Reports systems reviewed and no addt'l complaints, except as documented EXAM Physical Exam Const Vital Signs: 04/28/25 15:25 Temperature 98.3 F Temperature Source Oral Pulse Rate 90 Respiratory Rate 16 Blood Pressure 150/80 H Blood Pressure Mean 103 Pulse Ox 98 Oxygen Delivery Method Room Air Positive well nourished and well developed Constitutional Narrative: Blood pressure is elevated. General Appearance ED: well developed and pallor; Negative for cyanotic or diaphoretic HEENT Reports dry mucous membranes HEENT Narrative: Head is atraumatic normocephalic. Ears normal. He is hard of hearing. Nares patent. Posterior pharynx unremarkable Mouth ED: Yes dry mucous membranes Mouth: dry mucous membranes Eyes PERRL and EOMs intact bilaterally General Eye ED: Yes pale conjunctiva; Negative for scleral icterus Neck no lymphadenopathy and supple Chest Wall inspection of chest normal and palpation of chest normal Resp normal respiratory effort and clear to auscultation bilaterally Cardio regular rate, regular rhythm, S1 normal heart sound, S2 normal heart sound and no murmurs GI normal to inspection, nondistended, normoactive bowel sounds, non-distended and no masses; Negative for non-tender or hepatosplenomegaly GI Narrative: Patient has evidence of scarred from prior suprapubic catheter. This is well- closed. Palpation: soft and tender suprapubic Narrative: There is no inguinal lymphadenopathy or inguinal mass. Back/Spine no CVA tenderness Extremity normal to inspection General Extremety ED: Negative for edema or tenderness General Extremity: Negative for edema Neuro oriented x3 and CN's II-XII intact bilaterally Sensorium / Orientation: alert Psych mental status grossly normal Skin no rashes or lesions noted and skin turgor normal General Skin Exam: pallor; Negative for elasticity normal or jaundice MDM MDM MDM Narrative Medical decision making narrative: Clinically patient appears dehydrated. Since he only weighs 53 kg he was given a 500 cc bolus. He was started on Rocephin. Blood work was repeated. UA was not repeated since he had UA yesterday and cultures done. Since patient is havi ng nausea vomiting unable to take his antibiotics he will need admission. Lab Data Attestation: I reviewed the patient's lab results. Lab results narrative: CBC is remarkable for elevated white count. There is a slight shift. There is no bandemia. There is mild anemia with normal indices. Estimated GFR is 84. BUN and creatinine are normal. Lactate is normal. Labs: Laboratory Results - last 24 hr 04/28/25 16:20 WBC 11.5 H RBC 4.14 L Hgb 12.4 L Hct 37.3 L MCV 90.1 MCH 30.0 MCHC 33.2 RDW Std Deviation 44.0 H RDW Coeff of Arleen 13.4 Plt Count 189 MPV 10.6 Immature Gran % (Auto) 0.200 Neut % (Auto) 72.7 H Lymph % (Auto) 17.9 L [place] % (Auto) 8.6 Eos % (Auto) 0.2 Baso % (Auto) 0.4 Absolute Neuts (auto) 8.3 H Absolute Lymphs (auto) 2.05 Nucleated RBC % 0 Sodium 137 Potassium 3.8 Chloride 99 Carbon Dioxide 24.7 Anion Gap 12 BUN 9 Creatinine 0.82 Estim Creat Clear Calc 46.43 L Est GFR (MDRD) Non-Af 84 BUN/Creatinine Ratio 10.5 Glucose 149 H Lactic Acid 1.2 Calcium 9.3 Total Bilirubin 0.81 AST 21 ALT 10 Alkaline Phosphatase 64 Total Protein 7.3 Albumin 3.9 Globulin 3.3 Albumin/Globulin Ratio 1.2 Treatment and Re-Evaluation :: Hospitalist was paged for admission since he has failed outpatient therapy due to the fact of nausea and vomiting unable to take his antibiotics. There is no indication for blood cultures. There is no evidence of sepsis. Discharge Plan Triage Chief Complaint: Complaint ED Provider: Henok Villarreal Dx/Rx/DC Orders Clinical Impression: Urinary tract infection, Leukocytosis, Nausea & vomiting, Failure of outpatient treatment, Anemia, History of CAD (coronary artery disease) Prescriptions: No Action tamsulosin 0.4 mg capsule 0.4 mg PO QDAY aspirin [Adult Low Dose Aspirin] 81 mg tablet,delayed release (DR/EC) 81 mg PO DAILY dupilumab 300 mg/2 mL pen injector 300 mg subcut Q2W nitroglycerin 0.4 mg tablet, sublingual 0.4 mg SUBLINGUAL Q5M PRN (Reason: Chest Pain) Qty: 25 3RF oxybutynin chloride 5 mg tablet extended release 24hr 5 mg PO QDAY prednisone 5 mg tablet 5 mg PO QDAY carvedilol 6.25 mg tablet 6.25 mg PO BID Qty: 60 3RF Rx Instructions: must administer with a meal/food ondansetron 4 mg tablet,disintegrating 4 mg PO Q8H PRN PRN (Reason: Nausea) Qty: 10 0RF cephalexin 500 mg capsule 500 mg PO Q6 Qty: 28 0RF phenazopyridine [Pyridium] 200 mg tablet 200 mg PO TID Qty: 5 0RF simvastatin 20 mg tablet 20 mg PO QHS Qty: 90 3RF Entresto 24-26 mg tablet 1 tab PO BID Qty: 60 11RF Primary Care Provider: Terry Mckeon Referrals: Terry Mckeon, [Primary Care Provider] - Print Language: Frisian Disposition Disposition: Acute Care Hospital [facility]
--- OUTSIDE RECORDS SUMMARY | 2025-04-28 16:18 | XMS RPT_ITS | CCD ---
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 Onset: 1 01-13-2011 Unclassified (2 sources) Long-term drug therapy; Translations: [Other care home (current) drug therapy] Onset: 1 01-13-2011 Urinary tract infections (17 sources) Urinary tract infectious disease; Translations: [Urinary [...] FFR of RCA negative per [facility]N @ [facility] Esophageal disorders (1 source) Esophagitis; Translations: [Esophagitis, unspecified] Onset: 06-12-2010 06-12-2010 Episodic Other aftercare (15 sources) Long-term drug therapy; Translations: [Other care home (current) drug therapy] Onset: 01-13-2011 01-13-2011 Episodic Other and unspecified benign neoplasm (1 source) History of polyp of colon; Translations: [Personal history of colonic polyps] Onset: 05-10-2012 05-10-2012 Episodic Other gastrointestinal disorders (1 source) Finding of abdomen; Translations: [Intra-abdominal and pelvic swelling, mass and lump, unspecified site] Onset: 06-20-2005 06-20-2005 Episodic Residual codes; unclassified (20 sources) Body [...] Test Name Value Interpretation Reference Range Facility Absolute lymphocyte countOrd ered By: Timoteo Mckenna on 04-27-2025 Lymphocytes Auto (Unsp spec) [#/Vol] 1.92 10*3/uL 0.83-4.51 [facility] Absolute neutrophil countOrd ered By: Timoteo Mckenna on 04-27-2025 Neutrophils (Bld) [#/Vol] 7.0 10*3/uL 2.0-7.7 [facility] Anion gap in Serum or Plasma Ordered By: Timoteo Mckenna on 04-27-2025 Anion gap [Moles/Vol] 12 mmol/L 5-15 [facility] Automated lymphocyte count a s percentage of total leukocytesOrdered By: Timoteo Mckenna on 04-27-2025 Lymphocytes/100 WBC Auto (Unsp spec) 19.6 % 19-41 [facility] BUN/creatinine ratioOrdered By: [facility] on 04-27-2025 Urea nitrogen/Creatinine [Mass ratio] 14.1 mg/mg 10-20 [facility] Basophil percentageOrdered B y: Timoteo Mckenna on 04-27-2025 Basophils/100 WBC (Bld) 0.5 % 0-1 [facility] Bilirubin Test strip Ql (U)O rdered By: Timoteo Mckenna on 04-27-2025 Bilirubin Ql (U) Negative Negative [facility] Bilirubin, totalOrdered By: Timoteo Mckenna on 04-27-2025 Bilirubin [Mass/Vol] 0.75 mg/dL 0.00-1.30 [facility] Carbon dioxide, total [Moles /volume] in Central venous bloodOrdered By: Timoteo Mckenna on 04-27-2025 CO2 [Moles/Vol] 23.2 mmol/L 21.0-32.0 [facility] Chloride assayOrdered By: Melissa Mckenna on 04-27-2025 Chloride [Moles/Vol] 100 mmol/L 98-108 [facility] Eosinophil percentageOrdered By: Timoteo Mckenna on 04-27-2025 Eosinophils/100 WBC (Bld) 1.0 % 0-5 [facility] Erythrocyte distribution wid th ratioOrdered By: Timoteo Mckenna on 04-27-2025 Erythrocyte distribution width (RBC) [Ratio] 13.6 % 11.6-14.6 [facility] Erythrocyte distribution wid th standard deviationOrdered By: Timoteo Mckenna on 04-27-2025 Erythrocyte distribution width (RBC) [Ratio] 43.9 fl 35.1-43.9 [facility] Glomerular filtration rate ( GFR) estimation/1.73 sq m using serum, plasma, or whole bOrdered By: Timoteo Mckenna on 04-27-2025 GFR/1.73 sq M.predicted among non-blacks MDRD (S/P/Bld) [Vol rate/Area] 82 mL/min/{1.73_m2} >60 [facility] Comment on above: mL/min/1.73m2 CKD-EP I Creatinine Equation (2020) Hematocrit Auto (Bld) [Volum e fraction]Ordered By: Timoteo Mckenna on 04-27-2025 Hematocrit (Bld) [Volume fraction] 36.0 % Low 40-54 [facility] Hemoglobin measurementOrdere d By: Timoteo Mckenna on 04-27-2025 Hemoglobin (Bld) [Mass/Vol] 12.2 g/dL Low 13.0-16.5 [facility] Immature granulocytes/100 WB C Auto (Bld)Ordered By: Timoteo Mckenna on 04-27-2025 Immature granulocytes/100 WBC (Bld) 0.400 % 0.0-0.9 [facility] Comment on above: IG% - Immature Granu locytes (promyelocytes, myelocytes and metamyelocytes) > 1% indicates that a LEFT SHIFT is Present. Ketones Test strip Ql (U)Ord ered By: Timoteo Mckenna on 04-27-2025 Ketones Ql (U) 5 mg/dl High Negative [facility] Laboratory - Chemistry and C hemistry - challengeOrdered By: Timoteo Mckenna on 04-27-2025 AST [Catalytic activity/Vol] 30 U/L <38 [facility] Comment on above: Hemolysis present, R esults could be affected. Lipase measurementOrdered By : Timoteo Mckenna on 04-27-2025 Lipase [Catalytic activity/Vol] 15 U/L 13-75 [facility] Comment on above: Please note:LIPASE r evised reference range effective 23. New Lipase methodology. Expected to produce lower values than the previous assay method. NEW Reference Range: 13 - 75 U/L MCV (mean corpuscular volume ) determinationOrdered By: Timoteo Mckenna on 04-27-2025 MCV (RBC) [Entitic vol] 89.3 fL 80-94 [facility] Mean corpuscular hemoglobin (MCH) determinationOrdered By: Timoteo Mckenna on 04-27-2025 MCH (RBC) [Entitic mass] 30.3 pg 27.0-32.0 [facility] Mean corpuscular hemoglobin concentration (MCHC) determinationOrdered By: Timoteo Mckenna on 04-27-2025 MCHC (RBC) [Mass/Vol] 33.9 g/dL 32-36 [facility] Mean platelet volume determi nationOrdered By: Timoteo Mckenna on 04-27-2025 Platelet mean volume (Bld) [Entitic vol] 11.6 fL 6.2-12.0 [facility] Microscopic analysis of urin e for red blood cells (RBC)Ordered By: Timoteo Mckenna on 04-27-2025 Microscopic analysis of urine for red blood cells (RBC) 0-5 SEEN /hpf 0-5 [facility] Monocyte percentageOrdered B y: Timoteo Mckenna on 04-27-2025 Monocytes/100 WBC (Bld) 7.4 % 0-10 [facility] Mucus LM Ql (Urine sed)Order ed By: Timoteo Mckenna on 04-27-2025 Mucus Ql (Urine sed) 0 SEEN /hpf [facility] Neutrophil percentageOrdered By: Timoteo Mckenna on 04-27-2025 Neutrophils/100 WBC (Bld) 71.1 % High 47-70 [facility] Nitrite Test strip Ql (U)Ord ered By: Timoteo Mckenna on 04-27-2025 Nitrite Ql (U) Positive High Negative [facility] Nucleated red blood cell per centageOrdered By: Timoteo Mckenna on 04-27-2025 Nucleated RBC/100 WBC (Bld) [Ratio] 0 % 0-5 [facility] Platelet countOrdered By: Melissa Mckenna on 04-27-2025 Platelets (Bld) [#/Vol] 201 10*3/uL 150-450 [facility] Potassium measurement (mass/ volume)Ordered By: Timoteo Mckenna on 04-27-2025 Potassium (Unsp spec) [Mass/Vol] 4.2 mmol/L 3.3-5.1 [facility] Comment on above: Hemolysis present, R esults could be affected. Protein Test strip Ql (U)Ord ered By: Timoteo Mckenna on 04-27-2025 Protein Ql (U) 30 mg/dl High Negative [facility] RBC Auto (Bld) [#/Vol]Ordere d By: Timoteo Mckenna on 04-27-2025 RBC (Bld) [#/Vol] 4.03 10*6/uL Low 4.6-6.2 [facility] Serum creatinine measurement (mass/volume)Ordered By: Timoteo Mckenna on 04-27-2025 Creatinine [Mass/Vol] 0.90 mg/dL 0.70-1.20 [facility] Serum globulin measurementOr dered By: Timoteo Mckenna on 04-27-2025 Globulin (S) [Mass/Vol] 3.3 g/dL 2.2-4.2 [facility] Serum glucose measurement (m ass/volume)Ordered By: Timoteo Mckenna on 04-27-2025 Glucose [Mass/Vol] 285 mg/dL High 70-99 [facility] Serum or plasma alanine rice otransferase (ALT) measurementOrdered By: Timoteo Mckenna on 04-27-2025 ALT [Catalytic activity/Vol] 15 U/L <47 [facility] Serum or plasma albumin alfonso urement (mass/volume)Ordered By: Remus Clarisa on 04-27-2025 Albumin [Mass/Vol] 4.0 g/dL 3.4-4.8 [facility] Serum or plasma albumin/glob ulin mass ratioOrdered By: Remus Ungmaryann on 04-27-2025 Albumin/Globulin [Mass ratio] 1.2 {ratio} 0.9-2.4 [facility] Serum or plasma alkaline rory sphatase measurementOrdered By: Remus Clarisa on 04-27-2025 ALP [Catalytic activity/Vol] 65 U/L 40-129 [facility] Serum or plasma calcium alfonso urement (mass/volume)Ordered By: Remus Ungmaryann on 04-27-2025 Calcium [Mass/Vol] 9.2 mg/dL 7.6-11.0 [facility] Serum or plasma urea nitroge n measurement (mass/volume)Ordered By: Remus Clarisa on 04-27-2025 Urea nitrogen [Mass/Vol] 13 mg/dL 4-19 [facility] Sodium levelOrdered By: Remu s Clarisa on 04-27-2025 Sodium [Moles/Vol] 135 mmol/L 133-145 [facility] Squamous epithelial cells de tection in urine sediment by light microscopyOrdered By: Remus Mckenna on 04-27-2025 Epithelial cells.squamous LM Ql (Urine sed) 0 SEEN /hpf 0-5 [facility] Total proteinOrdered By: Rem us Clarisa on 04-27-2025 Protein [Mass/Vol] 7.3 g/dL 5.9-8.4 [facility] Urine clarityOrdered By: Rem us Clarisa on 04-27-2025 Clarity (U) Sl. Cloudy Clear [facility] Urine color determinationOrd ered By: Remus Clarisa on 04-27-2025 Color (U) Yellow Yellow [facility] Urine glucose detectionOrder ed By: Remus Clarisa on 04-27-2025 Glucose Ql (U) 1000 mg/dl High Normal [facility] Urine leukocyte esterase det ection by dipstickOrdered By: Remus Clarisa on 04-27-2025 Leukocyte esterase Test strip Ql (U) 500 /ul High Negative [facility] Urine pHOrdered By: Remus Un gur on 04-27-2025 pH (U) 6.0 [pH] 5.0 - 8.0 [facility] Urine sediment bacteria coun t by microscopy (number/high power field)Ordered By: Timoteo Mckenna on 04-27-2025 Bacteria LM.HPF (Urine sed) [#/Area] 2 /[HPF] None Seen [facility] Urine specific gravity measu rementOrdered By: Timoteo Clarisa on 04-27-2025 Specific gravity (U) [Rel density] 1.015 1.002-1.03 0 [facility] Urine urobilinogen measureme ntOrdered By: Timoteo Mckenna on 04-27-2025 Urobilinogen Ql (U) Normal mg/dl Normal [facility] White blood cell (WBC) count Ordered By: Timoteo Clarisa on 04-27-2025 WBC (Bld) [#/Vol] 9.8 10*3/uL 4.4-11.0 [facility] White blood cell countOrdere d By: Timoteo Clarisa on 04-27-2025 White blood cell count 25-50 SEEN /hpf 0-5 [facility] PSA,Total- Diagnosticon 04-02 PSA, DIAGNOSTIC 0.38 ng/mL Normal 0.00-4.00 [facility] Comment on above: Result Comment: This [...] values. Performed By: #### L 501.9940 #### [facility] Laboratory [address] [place], [place], [id number] Cardiology Visit Reporton Cardiology Visit Report [facility] [address] [place] [address] OFFICE VISIT Date of Service: 03/12/25 MR#: [id number] Acct: [id number] Name: RAJAT GUZMÁN Rep #: [id number] : 1935 Provider: MORTEZA ortiz Age/Sex: 89/M [place] [facility] Status: Signed HPI HPI History of Present [...] 97 Intake Visit Reasons: 4 M FU [employer] Required: No Is patient in pain?: No [...] Chest pain, precordial Atherosclerotic heart disease of [place] coronary artery without angina pectoris Dyspnea Fatigue [...] heart deena (more content not included)... Normal [facility] CRPon 02-05-2025 C-REACTIVE PROT 3.80 mg/L High 0.0-3.0 [facility] Comment on above: Performed By: #### L 501.9940 #### [facility] [address] [place], [place], [id number] CRP [Mass/Vol]Ordered By: Nestor Mckeon on 02-05-2025 C-Reactive Protein Extended Range 3.80 mg/L High 0.0-3.0 [facility] Erythrocyte Sed Rateon 02-05 SED RATE 13 mm/hr Normal 0-20 [facility] Comment on above: Performed By: #### L 501.9940 #### [facility] [address] [place], [place], [id number] Erythrocyte sedimentation ra teOrdered By: John Mckeon on 02-05-2025 ESR (Bld) [Velocity] 13 mm/h 0-20 [facility] Serum or plasma C reactive p rotein measurement (mass/volume)Ordered By: John Mckeon on 02-05-2025 CRP [Mass/Vol] 3.80 mg/L High 0.0-3.0 [facility] Absolute neutrophil countOrd ered By: Timoteo Mckenna on 12-16-2024 Neutrophils (Bld) [#/Vol] 6.7 10*3/uL 2.0-7.7 [facility] Basic Metabolic Profile (BMP )on 12-16-2024 BUN/CRE 19.0 RATIO Normal - [facility] Comment on above: Performed By: #### L 100.0100, L500.2500 #### [facility] [address] [place], [place], [id number] CA,Total 9.9 mg/dL Normal 8.5-10.1 [facility] Comment on above: Performed By: #### L 100.0100, L500.2500 #### [facility] [address] [place], [address] Chloride [Moles/Vol] 100 mmol/L Normal 98-107 [facility] Comment on above: Performed By: #### L 100.0100, L500.2500 #### [facility] [address] [place], [address] CO2 [Moles/Vol] 27.0 mmol/L Normal 21.0-32.0 [facility] Comment on above: Performed By: #### L 100.0100, L500.2500 #### [facility] [address] [place], [address] Creatinine [Mass/Vol] 0.84 mg/dL Normal 0.70-1.30 [facility] Comment on above: Result Comment: The validity of the calculated GFR GFRAA in patients over 70 years has not been determined. Clinical correlation is essential. Performed By: #### L 100.0100, L500.2500 #### [facility] [address] [place], [address] ECRCL 44.07 ml/min Normal [facility] Comment on above: Performed By: #### L 100.0100, L500.2500 #### [facility] [address] [place], [address] EST GFR - AA 111 mL/min Normal >60 [facility] Comment on above: Result Comment: Afri can Salvadorean GFR Calc Performed By: #### L 100.0100, L500.2500 #### [facility] [address] [place], [address] GAP 8 Normal 5-15 [facility] Comment on above: Performed By: #### L 100.0100, L500.2500 #### [facility] [address] [place], [address] GFR/1.73 sq M.predicted among non-blacks MDRD (S/P/Bld) [Vol rate/Area] 92 mL/min/{1.73_m2} Normal >60 [facility] Comment on above: Result Comment: Non- GFR Calc Performed By: #### L 100.0100, L500.2500 #### [facility] [address] [place], [address] Glucose [Mass/Vol] 155 mg/dL High 74-106 [facility] Comment on above: Result Comment: Fast ing Glucose result greater than or equal to 126 mg/dL suggests DIABETES MELLITUS per A.D.A. criteria. Performed By: #### L 100.0100, L500.2500 #### [facility] [address] [place], [address] Potassium [Moles/Vol] 3.8 mmol/L Normal 3.5-5.1 [facility] Comment on above: Performed By: #### L 100.0100, L500.2500 #### [facility] [address] [place], [address] Sodium [Moles/Vol] 135 mmol/L Low 136-145 [facility] Comment on above: Performed By: #### L 100.0100, L500.2500 #### [facility] [address] [place], [address] Urea nitrogen [Mass/Vol] 16 mg/dL Normal 7-18 [facility] Comment on above: Performed By: #### L 100.0100, L500.2500 #### [facility] [address] [place], [address] Basophil percentageOrdered B y: Timoteo Mckenna on 12-16-2024 Basophils/100 WBC (Bld) 0.1 % 0-1 [facility] Bilirubin Test strip Ql (U)O rdered By: Remus Clarisa on 12-16-2024 Bilirubin Ql (U) Negative Negative [facility] Blood urea nitrogen (BUN)/cr eatinine ratioOrdered By: Timoteo Mckenna on 12-16-2024 Urea nitrogen/Creatinine [Mass ratio] 19.0 mg/mg 10-20 [facility] CBC W/Diff, Automatedon 12-02 Absolute Lymph 1.31 X10 3/uL Normal 0.83-4.51 [facility] Comment on above: Performed By: #### L 100.0100, L500.2500 #### [facility] [address] [place], [address] Absolute Neut 6.7 X10 3/uL Normal 2.0-7.7 [facility] Comment on above: Performed By: #### L 100.0100, L500.2500 #### [facility] [address] [place], [address] Basophils/100 WBC (Bld) 0.1 % Normal 0-1 [facility] Comment on above: Performed By: #### L 100.0100, L500.2500 #### [facility] [address] [place], [address] Eosinophils/100 WBC (Bld) 0.3 % Normal 0-5 [facility] Comment on above: Performed By: #### L 100.0100, L500.2500 #### [facility] [address] [place], [address] Erythrocyte distribution width (RBC) [Ratio] 13.7 % Normal 11.6-14.6 [facility] Comment on above: Performed By: #### L 100.0100, L500.2500 #### [facility] [address] [place], [address] Hematocrit (Bld) [Volume fraction] 42.5 % Normal 40-54 [facility] Comment on above: Performed By: #### L 100.0100, L500.2500 #### [facility] [address] [place], [address] Hemoglobin (Bld) [Mass/Vol] 13.8 g/dL Normal 13.0-16.5 [facility] Comment on above: Performed By: #### L 100.0100, L500.2500 #### [facility] [address] [place], [address] IG% 0.200 Normal 0.0-0.9 [facility] Comment on above: Result Comment: IG% - Immature Granulocytes (promyelocytes, myelocytes and metamyelocytes) > 1% indicates that a LEFT SHIFT is Present. Performed By: #### L 100.0100, L500.2500 #### [facility] [address] [place], [address] Lymphocytes/100 WBC (Bld) 15.2 % Low 19-41 [facility] Comment on above: Performed By: #### L 100.0100, L500.2500 #### [facility] [address] [place], [address] MCH (RBC) [Entitic mass] 29.2 pg Normal 27.0-32.0 [facility] Comment on above: Performed By: #### L 100.0100, L500.2500 #### [facility] [address] [place], [address] MCHC (RBC) [Mass/Vol] 32.5 g/dL Normal 32-36 [facility] Comment on above: Performed By: #### L 100.0100, L500.2500 #### [facility] [address] [place], [address] MCV (RBC) [Entitic vol] 89.9 fL Normal 80-94 [facility] Comment on above: Performed By: #### L 100.0100, L500.2500 #### [facility] [address] [place], [address] Monocytes/100 WBC (Bld) 6.1 % Normal 0-10 [facility] Comment on above: Performed By: #### L 100.0100, L500.2500 #### [facility] [address] [place], [address] Neutrophils/100 WBC (Bld) 78.1 % High 47-70 [facility] Comment on above: Performed By: #### L 100.0100, L500.2500 #### [facility] [address] [place], [address] Nucleated RBC (Bld) [#/Vol] 0 10*3/uL Normal 0-5 [facility] Comment on above: Performed By: #### L 100.0100, L500.2500 #### [facility] [address] [place], [address] Platelet mean volume (Bld) [Entitic vol] 10.6 fL Normal 6.2-12.0 [facility] Comment on above: Performed By: #### L 100.0100, L500.2500 #### [facility] [address] [place], [address] Platelets (Bld) [#/Vol] 248 10*3/uL Normal 150-450 [facility] Comment on above: Performed By: #### L 100.0100, L500.2500 #### [facility] [address] [place], [address] RBC (Bld) [#/Vol] 4.73 10*6/uL Normal 4.6-6.2 [facility] Comment on above: Performed By: #### L 100.0100, L500.2500 #### [facility] [address] [place], [address] RDW SD 45.1 fl High 35.1-43.9 [facility] Comment on above: Performed By: #### L 100.0100, L500.2500 #### [facility] [address] [place], [address] WBC (Bld) [#/Vol] 8.6 10*3/uL Normal 4.4-11.0 [facility] Comment on above: Performed By: #### L 100.0100, L500.2500 #### [facility] [address] [place], [address] Carbon dioxide measurementOr dered By: Timoteo Mckenna on 12-16-2024 CO2 [Moles/Vol] 27.0 mmol/L 21.0-32.0 [facility] Chloride measurementOrdered By: Timoteo Mckenna on 12-16-2024 Chloride [Moles/Vol] 100 mmol/L 98-107 [facility] Emergency Department Summary on 12-16-2024 Emergency Department Summary [facility] Medical Records Department [address] [place] [address] Emergency Department Summary 12/16/24 MR#: [id number] Acct: [id number] Name: RAJAT GUZMÁN Rep #: [id number] : 1935 89 From: Timoteo Mckenna DO PCP: Dr. John Mckeon, DO Status:DEP ER Location: ED HPI History of [...] fever at home. He denies urinary symptoms. [facility] Medical History Non-smoker History of heart attack [...] Chest pain, precordial Atherosclerotic heart disease of [place] coronary artery without angina pectoris Dyspnea Fatigue [...] Denies rh (more content not included)... Normal [facility] Eosinophil percentageOrdered By: Timoteo Mckenna on 12-16-2024 Eosinophils/100 WBC (Bld) 0.3 % 0-5 [facility] Epithelial cells.squamous LM Ql (Urine sed)Ordered By: Timoteo Mckenna on 12-16-2024 Epithelial cells.squamous LM.HPF (Urine sed) [#/Area] 0 /[HPF] 0-5 [facility] Erythrocyte distribution wid th (RBC) [Ratio]Ordered By: Timoteo Mckenna on 12-16-2024 Erythrocyte distribution width (RBC) [Entitic vol] 45.1 fL High 35.1-43.9 [facility] Erythrocyte distribution wid th ratioOrdered By: [facility] on 12-16-2024 Erythrocyte distribution width (RBC) [Ratio] 13.7 % 11.6-14.6 [facility] Estimated glomerular filtrat ion rate (GFR) AmericanOrdered By: Timoteo Mckenna on 12-16-2024 Estimated GFR (MDRD) Amer 111 mL/min >60 [facility] Comment on above: GFR Calc Estimation of creatinine laurel aranceOrdered By: Timoteo Mckenna on 12-16-2024 Estimated Creatinine Clearance Calc 44.07 ml/min [facility] Glomerular filtration rate ( GFR) estimationOrdered By: Timoteo Mckenna on 12-16-2024 Estimated GFR (MDRD) Non-Af Amer 92 mL/min >60 [facility] Comment on above: Non- GFR Calc Glucose Ql (U)Ordered By: Melissa Mckenna on 12-16-2024 Urine Glucose (UA) Normal mg/dl Normal [facility] Glucose measurementOrdered B y: Timoteo Mckenna on 12-16-2024 Glucose [Mass/Vol] 155 mg/dL High 74-106 [facility] Comment on above: Fasting Glucose resu lt greater than or equal to 126 mg/dL suggests DIABETES MELLITUS per A.D.A. criteria. Hematocrit Auto (Bld) [Volum e fraction]Ordered By: Timoteo Mckenna on 12-16-2024 Hematocrit (Bld) [Volume fraction] 42.5 % 40-54 [facility] Hemoglobin measurementOrdere d By: Timoteo Mckenna on 12-16-2024 Hemoglobin (Bld) [Mass/Vol] 13.8 g/dL 13.0-16.5 [facility] Immature granulocytes/100 WB C Auto (Bld)Ordered By: Timoteo Mckenna on 12-16-2024 Immature granulocytes/100 WBC (Bld) 0.200 % 0.0-0.9 [facility] Comment on above: IG% - Immature Granu locytes (promyelocytes, myelocytes and metamyelocytes) > 1% indicates that a LEFT SHIFT is Present. Influenza virus A and B and SARS-CoV-2 (COVID-19) and Respiratory syncytial virus RNAOrdered By: Timoteo Mckenna on 12-16-2024 SARS-CoV-2 (COVID-19) RNA MOHIT+probe Ql (Unsp spec) [facility] Ketones Test strip Ql (U)Ord ered By: Timoteo Mckenna on 12-16-2024 Ketones Ql (U) Negative Negative [facility] Lymphocytes Auto (Unsp spec) [#/Vol]Ordered By: Timoteo Mckenna on 12-16-2024 Lymphocytes (Bld) [#/Vol] 1.31 10*3/uL 0.83-4.51 [facility] Lymphocytes/100 WBC Auto (Un sp spec)Ordered By: Timoteo Mckenna on 12-16-2024 Lymphocytes/100 WBC (Bld) 15.2 % Low 19-41 [facility] M100.678on 12-16-2024 M100.678 SARS-CoV-2 (COVID 19 ) Negative INFLUENZA A Negative INFLUENZA B Negative RSV PCR Negative Normal [facility] Comment on above: Performed By: #### L 501.9952 #### [facility] [address] [place], [place], [id number] MCV (mean corpuscular volume ) determinationOrdered By: Timotoe Mckenna on 12-16-2024 MCV (RBC) [Entitic vol] 89.9 fL 80-94 [facility] Mean corpuscular hemoglobin (MCH) determinationOrdered By: Timoteo Mckenna on 12-16-2024 MCH (RBC) [Entitic mass] 29.2 pg 27.0-32.0 [facility] Mean corpuscular hemoglobin concentration (MCHC) determinationOrdered By: Timoteo Mckenna on 12-16-2024 MCHC (RBC) [Mass/Vol] 32.5 g/dL 32-36 [facility] Mean platelet volume determi nationOrdered By: Timoteo Mckenna on 12-16-2024 Platelet mean volume (Bld) [Entitic vol] 10.6 fL 6.2-12.0 [facility] Microscopic analysis of urin e for red blood cells (RBC)Ordered By: Timoteo Mckenna on 12-16-2024 Urine RBC 0 SEEN /hpf 0-5 [facility] Monocyte percentageOrdered B y: Timoteo Mckenna on 12-16-2024 Monocytes/100 WBC (Bld) 6.1 % 0-10 [facility] Mucus LM Ql (Urine sed)Order ed By: Timoteo Mckenna on 12-16-2024 Mucus Ql (Urine sed) 0 SEEN /hpf [facility] Neutrophil percentageOrdered By: Timoteo Mckenna on 12-16-2024 Neutrophils/100 WBC (Bld) 78.1 % High 47-70 [facility] Nitrite Test strip Ql (U)Ord ered By: Timoteo Mckenna on 12-16-2024 Nitrite Ql (U) Negative Negative [facility] Nucleated red blood cell per centageOrdered By: Timoteo Mckenna on 12-16-2024 Nucleated RBC/100 WBC (Bld) [Ratio] 0 % 0-5 [facility] Platelet countOrdered By: Melissa Mckenna on 12-16-2024 Platelets (Bld) [#/Vol] 248 10*3/uL 150-450 [facility] Potassium measurementOrdered By: Timoteo Mckenna on 12-16-2024 Potassium [Moles/Vol] 3.8 mmol/L 3.5-5.1 [facility] Protein Test strip Ql (U)Ord ered By: Timoteo Mckenna on 12-16-2024 Protein Ql (U) Negative Negative [facility] RBC Auto (Bld) [#/Vol]Ordere d By: Timoteo Mckenna on 12-16-2024 RBC (Bld) [#/Vol] 4.73 10*6/uL 4.6-6.2 [facility] Serum anion gap measurementO rdered By: Timoteo Mckenna on 12-16-2024 Anion gap [Moles/Vol] 8 mmol/L -15 [facility] Serum or plasma calcium alfonso urement (mass/volume)Ordered By: Timoteo Mckenna on 12-16-2024 Calcium [Mass/Vol] 9.9 mg/dL 8.5-10.1 [facility] Serum or plasma creatinine m easurement (mass/volume)Ordered By: Timoteo Mckenna on 12-16-2024 Creatinine [Mass/Vol] 0.84 mg/dL 0.70-1.30 [facility] Comment on above: The validity of the calculated GFR & GFRAA in patients over 70 years has not been determined. Clinical correlation is essential. Serum or plasma urea nitroge n measurement (mass/volume)Ordered By: Timoteo Mckenna on 12-16-2024 Urea nitrogen [Mass/Vol] 16 mg/dL 7-18 [facility] Sodium levelOrdered By: Roxana Mckenna on 12-16-2024 Sodium [Moles/Vol] 135 mmol/L Low 136-145 [facility] Urinalysis, Completeon 12-16 RBC 0 SEEN Normal 0-5 [facility] Comment on above: Order Comment: CLEAN CATCH Performed By: #### L 501.9974 #### [facility] [address] [place], [address] Urine blood detectionOrdered By: Remus Ungmaryann on 12-16-2024 Urine Occult Blood Negative Negative [facility] Urine clarityOrdered By: Rem us Ungur on 12-16-2024 Clarity (U) Clear Clear [facility] Urine color determinationOrd ered By: Remus Ungmaryann on 12-16-2024 Color (U) Straw Yellow [facility] Urine leukocyte esterase det ection by dipstickOrdered By: Remus Clarisa on 12-16-2024 Leukocyte esterase Test strip Ql (U) 25 /ul High Negative [facility] Urine pHOrdered By: Rem Un gur on 12-16-2024 pH (U) 6.5 [pH] 5.0 - 8.0 [facility] Urine sediment bacteria coun t by microscopy (number/high power field)Ordered By: Remus Mckenna on 12-16-2024 Bacteria LM.HPF (Urine sed) [#/Area] 0 /[HPF] None Seen [facility] Urine specific gravity measu rementOrdered By: Remus Clarisa on 12-16-2024 Specific gravity (U) [Rel density] 1.010 1.002-1.03 0 [facility] Urobilinogen Ql (U)Ordered B y: Remus Ungmaryann on 12-16-2024 Urine Urobilinogen Normal mg/dl Normal [facility] White blood cell (WBC) count Ordered By: Remus Ungmaryann on 12-16-2024 WBC (Bld) [#/Vol] 8.6 10*3/uL 4.4-11.0 [facility] White blood cell countOrdere d By: Remus Ungur on 12-16-2024 Urine WBC 0 SEEN /hpf 0-5 [facility] C-reactive protein measureme nt by high sensitivity methodOrdered By: John Mckeon on 12-08-2024 C-Reactive Protein Extended Range < 2.90 mg/L 0.0-3.0 [facility] Comment on above: C-Reactive Protein ( CRP) provides useful information for thediagnosis, therapy and monitoring of inflammatory processesand associated diseases. For the evaluation of Relative Riskfor Cardiovascular Disease, a High Sensitivity CRP (HSCRP)should be ordered. CRPon 12-08-2024 C-REACTIVE PROT < 2.90 Normal 0.0-3.0 [facility] Comment on above: Result Comment: C-Re active Protein (CRP) provides useful information for the diagnosis, therapy and monitoring of inflammatory processes and associated diseases. For the evaluation of Relative Risk for Cardiovascular Disease, a High Sensitivity CRP (HSCRP) should be ordered. Performed By: #### L 100.0100, L500.2500 #### [facility] [address] [place], [address] Erythrocyte Sed Rateon 12-08 SED RATE 8 mm/hr Normal 0-20 [facility] Comment on above: Performed By: #### L 100.0100, L500.2500 #### [facility] [address] [place], [address] Erythrocyte sedimentation ra teOrdered By: John Mckeon on 12-08-2024 ESR (Bld) [Velocity] 8 mm/h 0-20 [facility] Cardiology Visit Reporton Cardiology Visit Report [facility] [address] [place], [place] [address] OFFICE VISIT Date of Service: 11/10/24 MR#: [id number] Acct: [id number] Name: RAJAT GUZMÁN Stacia Rep #: [id number] : 1935 Provider: Dr. Timoteo Mullins MD Age/Sex: 89/M Location: [facility] Status: Signed HPI HPI History of Present [...] fu PREV AR PT WANTS TO SWITCH [employer] Required: No Accompanied by: Self Is patient [...] Chest pain, precordial Atherosclerotic heart disease of [place] coronary artery without angina pectoris Dyspnea Fatigue [...] Son De (more content not included)... Normal [facility] CBC W/Diff, Automatedon 11-0 Absolute Lymph 1.64 X10 3/uL Normal 0.83-4.51 [facility] Comment on above: Performed By: #### L 100.0100, L500.2500 #### [facility] [address] [place], [address] Absolute Neut 7.8 X10 3/uL High 2.0-7.7 [facility] Comment on above: Performed By: #### L 100.0100, L500.2500 #### [facility] [address] [place], [address] Basophils/100 WBC (Bld) 0.5 % Normal 0-1 [facility] Comment on above: Performed By: #### L 100.0100, L500.2500 #### [facility] [address] [place], [address] Eosinophils/100 WBC (Bld) 2.3 % Normal 0-5 [facility] Comment on above: Performed By: #### L 100.0100, L500.2500 #### [facility] [address] [place], [address] Erythrocyte distribution width (RBC) [Ratio] 14.9 % High 11.6-14.6 [facility] Comment on above: Performed By: #### L 100.0100, L500.2500 #### [facility] [address] [place], [address] Hematocrit (Bld) [Volume fraction] 36.1 % Low 40-54 [facility] Comment on above: Performed By: #### L 100.0100, L500.2500 #### [facility] [address] [place], [address] Hemoglobin (Bld) [Mass/Vol] 11.5 g/dL Low 13.0-16.5 [facility] Comment on above: Performed By: #### L 100.0100, L500.2500 #### [facility] [address] [place], [address] IG% 0.400 Normal 0.0-0.9 [facility] Comment on above: Result Comment: IG% - Immature Granulocytes (promyelocytes, myelocytes and metamyelocytes) > 1% indicates that a LEFT SHIFT is Present. Performed By: #### L 100.0100, L500.2500 #### [facility] [address] [place], [address] Lymphocytes/100 WBC (Bld) 16.1 % Low 19-41 [facility] Comment on above: Performed By: #### L 100.0100, L500.2500 #### [facility] [address] [place], [address] MCH (RBC) [Entitic mass] 29.3 pg Normal 27.0-32.0 [facility] Comment on above: Performed By: #### L 100.0100, L500.2500 #### [facility] [address] [place], [address] MCHC (RBC) [Mass/Vol] 31.9 g/dL Low 32-36 [facility] Comment on above: Performed By: #### L 100.0100, L500.2500 #### [facility] [address] [place], [address] MCV (RBC) [Entitic vol] 91.9 fL Normal 80-94 [facility] Comment on above: Performed By: #### L 100.0100, L500.2500 #### [facility] [address] [place], [address] Monocytes/100 WBC (Bld) 4.5 % Normal 0-10 [facility] Comment on above: Performed By: #### L 100.0100, L500.2500 #### [facility] [address] [place], [address] Neutrophils/100 WBC (Bld) 76.2 % High 47-70 [facility] Comment on above: Performed By: #### L 100.0100, L500.2500 #### [facility] [address] [place], [address] Nucleated RBC (Bld) [#/Vol] 0 10*3/uL Normal 0-5 [facility] Comment on above: Performed By: #### L 100.0100, L500.2500 #### [facility] [address] [place], [address] Platelet mean volume (Bld) [Entitic vol] 11.6 fL Normal 6.2-12.0 [facility] Comment on above: Performed By: #### L 100.0100, L500.2500 #### [facility] [address] [place], [address] Platelets (Bld) [#/Vol] 247 10*3/uL Normal 150-450 [facility] Comment on above: Performed By: #### L 100.0100, L500.2500 #### [facility] [address] [place], [address] RBC (Bld) [#/Vol] 3.93 10*6/uL Low 4.6-6.2 [facility] Comment on above: Performed By: #### L 100.0100, L500.2500 #### [facility] [address] [place], [address] RDW SD 50.4 fl High 35.1-43.9 [facility] Comment on above: Performed By: #### L 100.0100, L500.2500 #### [facility] [address] [place], [address] WBC (Bld) [#/Vol] 10.2 10*3/uL Normal 4.4-11.0 [facility] Comment on above: Performed By: #### L 100.0100, L500.2500 #### [facility] [address] [place], [address] CRPon 09-07-2024 C-REACTIVE PROT 6.91 mg/L High 0.0-3.0 [facility] Comment on above: Result Comment: C-Re active Protein (CRP) provides useful information for the diagnosis, therapy and monitoring of inflammatory processes and associated diseases. For the evaluation of Relative Risk for Cardiovascular Disease, a High Sensitivity CRP (HSCRP) should be ordered. Performed By: #### L 100.0100, L500.2500 #### [facility] [address] [place], [address] Comprehensive Metabolic Prof ilon 09-07-2024 Albumin [Mass/Vol] 3.7 g/dL Normal 3.2-5.0 [facility] Comment on above: Performed By: #### L 100.0100, L500.2500 #### [facility] [address] [place], [address] Albumin/Globulin [Mass ratio] 0.9 {ratio} Normal 0.9-2.4 [facility] Comment on above: Performed By: #### L 100.0100, L500.2500 #### [facility] [address] [place], [address] ALK P 72 U/L Normal 45-117 [facility] Comment on above: Performed By: #### L 100.0100, L500.2500 #### [facility] [address] [place], [address] ALT [Catalytic activity/Vol] 19 U/L Normal 16-61 [facility] Comment on above: Performed By: #### L 100.0100, L500.2500 #### [facility] [address] [place], [address] AST [Catalytic activity/Vol] 17 U/L Normal 15-37 [facility] Comment on above: Performed By: #### L 100.0100, L500.2500 #### [facility] [address] [place], [address] Bilirubin [Mass/Vol] 0.80 mg/dL Normal 0.20-1.00 [facility] Comment on above: Result Comment: For patients on eltrombopag therapy, use of Dimension Tynan TBIL is not recommended. Performed By: #### L 100.0100, L500.2500 #### [facility] [address] [place], [address] BUN/CRE 19.6 RATIO Normal 10-20 [facility] Comment on above: Performed By: #### L 100.0100, L500.2500 #### [facility] [address] [place], [address] CA,Total 8.7 mg/dL Normal 8.5-10.1 [facility] Comment on above: Performed By: #### L 100.0100, L500.2500 #### [facility] [address] [place], [address] Chloride [Moles/Vol] 102 mmol/L Normal 98-107 [facility] Comment on above: Performed By: #### L 100.0100, L500.2500 #### [facility] [address] [place], [address] CO2 [Moles/Vol] 31.0 mmol/L Normal 21.0-32.0 [facility] Comment on above: Performed By: #### L 100.0100, L500.2500 #### [facility] [address] [place], [address] Creatinine [Mass/Vol] 0.87 mg/dL Normal 0.70-1.30 [facility] Comment on above: Result Comment: The validity of the calculated GFR GFRAA in patients over 70 years has not been determined. Clinical correlation is essential. Performed By: #### L 100.0100, L500.2500 #### [facility] [address] [place], [address] EST GFR - AA 107 mL/min Normal >60 [facility] Comment on above: Result Comment: Afri can Salvadorean GFR Calc Performed By: #### L 100.0100, L500.2500 #### [facility] [address] [place], [address] GAP 5 Normal 5-15 [facility] Comment on above: Performed By: #### L 100.0100, L500.2500 #### [facility] [address] [place], [address] GFR/1.73 sq M.predicted among non-blacks MDRD (S/P/Bld) [Vol rate/Area] 88 mL/min/{1.73_m2} Normal >60 [facility] Comment on above: Result Comment: Non- GFR Calc Performed By: #### L 100.0100, L500.2500 #### [facility] [address] [place], [address] Globulin (S) [Mass/Vol] 4.1 g/dL Normal 2.2-4.2 [facility] Comment on above: Performed By: #### L 100.0100, L500.2500 #### [facility] [address] [place], [address] Glucose [Mass/Vol] 128 mg/dL High 74-106 [facility] Comment on above: Result Comment: Fast ing Glucose result greater than or equal to 126 mg/dL suggests DIABETES MELLITUS per A.D.A. criteria. Performed By: #### L 100.0100, L500.2500 #### [facility] [address] [place], [address] Potassium [Moles/Vol] 3.1 mmol/L Low 3.5-5.1 [facility] Comment on above: Performed By: #### L 100.0100, L500.2500 #### [facility] [address] [place], [address] Sodium [Moles/Vol] 139 mmol/L Normal 136-145 [facility] Comment on above: Performed By: #### L 100.0100, L500.2500 #### [facility] [address] [place], [address] T PROT 7.8 g/dL Normal 6.4-8.2 [facility] Comment on above: Performed By: #### L 100.0100, L500.2500 #### [facility] [address] [place], [address] Urea nitrogen [Mass/Vol] 17 mg/dL Normal 7-18 [facility] Comment on above: Performed By: #### L 100.0100, L500.2500 #### [facility] [address] [place], [address] Erythrocyte Sed Rateon 09-07 SED RATE 20 mm/hr Normal 0-20 [facility] Comment on above: Performed By: #### L 100.0100, L500.2500 #### [facility] [address] [place], [address] Testosterone, Serum Totalon 09-07-2024 Testosterone [Mass/Vol] ng/dL Normal [facility] Comment on above: Result Comment: CENT RAL 90% REFERENCE RANGES MALE AGE <50 197.44 - 669.58 ng/dL MALE AGE > or = 50 187.72 - 684.19 ng/dL FEMALE AGE <50 8.38 - 35.01 ng/dL FEMALE AGE > or = 50 <7.00 - 35.92 ng/dL Effective as of 05/27/21 Performed By: #### L 100.0100, L500.2500 #### [facility] [address] [place], [address] Thyroid Stim Hormone (TSH)on 09-07-2024 TSH 0.861 uIU/mL Normal 0.358-3.74 0 [facility] Comment on above: Performed By: #### L 100.0100, L500.2500 #### [facility] [address] [place], [address] CRPon 08-03-2024 C-REACTIVE PROT 8.47 mg/L High 0.0-3.0 [facility] Comment on above: Result Comment: C-Re active Protein (CRP) provides useful information for the diagnosis, therapy and monitoring of inflammatory processes and associated diseases. For the evaluation of Relative Risk for Cardiovascular Disease, a High Sensitivity CRP (HSCRP) should be ordered. Performed By: #### L 100.0100, L500.2500 #### [facility] [address] [place], [address] Erythrocyte Sed Rateon 08-03 SED RATE 12 mm/hr Normal 0-20 [facility] Comment on above: Performed By: #### L 100.0100, L500.2500 #### [facility] [address] [place], [address] CT ABDOMEN PELVIS W IV CONTR Nubia 07-10-2024 CT ABDOMEN PELVIS W IV CONTRAST Interpreted By: Sharan Recio, STUDY: CT ABDOMEN PELVIS W IV CONTRAST; 07/10/2024 3:18 pm INDICATION: Signs/Symptoms:PROSTATE CANCER. ,C61 Malignant neoplasm of prostate (Multi) COMPARISON: None. ACCESSION NUMBER(S): [id number] ORDERING CLINICIAN: ASMITA ZAMBRANO TECHNIQUE: CT of [...] Sharan Recio 07/11/2024 6:02 PM Dictation workstation: [id number] [facility] Serum Creatinine AND GFRon 0 07-06-2024 Creatinine [Mass/Vol] 1.03 mg/dL Normal 0.70-1.30 [facility] Comment on above: Result Comment: The validity of the calculated GFR GFRAA in patients over 70 years has not been determined. Clinical correlation is essential. Performed By: #### L 501.1105 #### [facility] [address] [place], [place], [address] EST GFR - AA 88 mL/min Normal >60 [facility] Comment on above: Result Comment: Afri can Salvadorean GFR Calc Performed By: #### L 501.1105 #### [facility] [address] [place], [place], [address] GFR/1.73 sq M.predicted among non-blacks MDRD (S/P/Bld) [Vol rate/Area] 72 mL/min/{1.73_m2} Normal >60 [facility] Comment on above: Result Comment: Non- GFR Calc Performed By: #### L 501.1105 #### [facility] [address] [place], [place], [address] Surgical pathology studyon 0 06-14-2024 Surgical pathology study Pathology report.total SEE COMMENT Surgical Pathology Case: [id number] Authorizing Provider: Asmita Zambrano MD Collected: 06/14/2024 1245 Ordering Location: [facility] Received: 06/14/2024 1248 Pathologist: Moncho Carrillo MD [...] prostatic origin. PIN4 immunostain cocktail (including p63, [id number] and AMACR) shows loss of basal cells, confirming the diagnosis of adenocarcinoma. B. 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 SEE NOTE. Note: PIN4 immunostain cocktail (including p63, [id number] and AMACR) shows loss of basal cells, [...] is submitted in toto in two cassettes. [facility] ASR DISCLAIMER One or more of the reagents used to perform assays on this specimen MAY have contained components considered to be analyte specific reagents (ASR's). ASR's have not been cleared or approved by the U.S. Food and Drug Administration. These assays were developed and their performance characteristics determined by the Department of Pathology at [facility]. The FDA does not require this test to go through premarket FDA review. This test is used for clinical purposes. It should not be regarded as investigational or for research. This laboratory is certified under the Clinical Laboratory Improvement Amendments (CLIA) as qualified to perform high complexity clinical laboratory testing. The assays were performed with appropriate positive and negative controls which stained appropriately. [facility] Ambulatory Urine Cultureon 06-03-2024 [facility] Copy of report sent to Infection Control Printer [id number] 06/03/24 0721 BLUCAS. ESBL Escherichia coli [place] Count >100,000 MARKER A ESBL producing Organism A ESBL Escherichia coli: REACTION Amikacin Islt ALEX 8 S Ampicillin Islt AELX >=32 R Ampicillin+Sulbac Islt ALEX >=32 R [...] S Cefuroxime Islt ALEX >=64 R Normal [facility] Comment on above: Performed By: #### L 501.9940 #### [facility] [address] [place], [address] CBC W/Diff, Automatedon 05-03 Absolute Lymph 1.36 X10 3/uL Normal 0.83-4.51 [facility] Comment on above: Performed By: #### L 500.4050, L100.0100, L101.9900, L501.6710 #### [facility] [address] [facility] [place], [address] Absolute Neut 5.8 X10 3/uL Normal 2.0-7.7 [facility] Comment on above: Performed By: #### L 500.4050, L100.0100, L101.9900, L501.6710 #### [facility] [address] [place], [address] Basophils/100 WBC (Bld) 0.5 % Normal 0-1 [facility] Comment on above: Performed By: #### L 500.4050, L100.0100, L101.9900, L501.6710 #### [facility] [address] [place], [address] Eosinophils/100 WBC (Bld) 0.1 % Normal 0-5 [facility] Comment on above: Performed By: #### L 500.4050, L100.0100, L101.9900, L501.6710 #### [facility] [address] [place], [address] Erythrocyte distribution width (RBC) [Ratio] 14.0 % Normal 11.6-14.6 [facility] [facility] Comment on above: Performed By: #### L 500.4050, L100.0100, L101.9900, L501.6710 #### [facility] [address] [place], [address] Hematocrit (Bld) [Volume fraction] 35.5 % Low 40-54 [facility] Comment on above: Performed By: #### L 500.4050, L100.0100, L101.9900, L501.6710 #### [facility] [address] [place], [address] Hemoglobin (Bld) [Mass/Vol] 11.5 g/dL Low 13.0-16.5 [facility] Comment on above: Performed By: #### L 500.4050, L100.0100, L101.9900, L501.6710 #### [facility] [address] [place], [address] IG% 0.400 Normal 0.0-0.9 [facility] Comment on above: Result Comment: IG% - Immature Granulocytes (promyelocytes, myelocytes and metamyelocytes) > 1% indicates that a LEFT SHIFT is Present. Performed By: #### L 500.4050, L100.0100, L101.9900, L501.6710 #### [facility] [address] [place], [address] Lymphocytes/100 WBC (Bld) 16.6 % Low 19-41 [facility] Comment on above: Performed By: #### L 500.4050, L100.0100, L101.9900, L501.6710 #### [facility] [address] [place], [address] MCH (RBC) [Entitic mass] 28.6 pg Normal 27.0-32.0 [facility] Comment on above: Performed By: #### L 500.4050, L100.0100, L101.9900, L501.6710 #### [facility] [address] [place], [address] MCHC (RBC) [Mass/Vol] 32.4 g/dL Normal 32-36 [facility] Comment on above: Performed By: #### L 500.4050, L100.0100, L101.9900, L501.6710 #### [facility] [address] [place], [address] MCV (RBC) [Entitic vol] 88.3 fL Normal 80-94 [facility] Comment on above: Performed By: #### L 500.4050, L100.0100, L101.9900, L501.6710 #### [facility] [address] [place], [address] Monocytes/100 WBC (Bld) 12.1 % High 0-10 [facility] Comment on above: Performed By: #### L 500.4050, L100.0100, L101.9900, L501.6710 #### [facility] [address] [place], [address] Neutrophils/100 WBC (Bld) 70.3 % High 47-70 [facility] Comment on above: Performed By: #### L 500.4050, L100.0100, L101.9900, L501.6710 #### [facility] [address] [place], [address] Nucleated RBC (Bld) [#/Vol] 0 10*3/uL Normal 0-5 [facility] Comment on above: Performed By: #### L 500.4050, L100.0100, L101.9900, L501.6710 #### [facility] [address] [place], [address] Platelet mean volume (Bld) [Entitic vol] 12.4 fL High 6.2-12.0 [facility] Comment on above: Performed By: #### L 500.4050, L100.0100, L101.9900, L501.6710 #### [facility] [address] [place], [address] Platelets (Bld) [#/Vol] 214 10*3/uL Normal 150-450 [facility] Comment on above: Performed By: #### L 500.4050, L100.0100, L101.9900, L501.6710 #### [facility] [address] [place], [address] RBC (Bld) [#/Vol] 4.02 10*6/uL Low 4.6-6.2 [facility] Comment on above: Performed By: #### L 500.4050, L100.0100, L101.9900, L501.6710 #### [facility] [address] [place], [address] RDW SD 45.4 fl High 35.1-43.9 [facility] Comment on above: Performed By: #### L 500.4050, L100.0100, L101.9900, L501.6710 #### [facility] [address] [place], [address] WBC (Bld) [#/Vol] 8.2 10*3/uL Normal 4.4-11.0 [facility] Comment on above: Performed By: #### L 500.4050, L100.0100, L101.9900, L501.6710 #### [facility] [address] [place], [address] CRPon 05-30-2024 C-REACTIVE PROT 97.30 mg/L High 0.0-3.0 [facility] Comment on above: Order Comment: URINE SUPPLIES GIVEN,PT UTV. RANGLE Result Comment: C-Re active Protein (CRP) provides useful information for the diagnosis, therapy and monitoring of inflammatory processes and associated diseases. For the evaluation of Relative Risk for Cardiovascular Disease, a High Sensitivity CRP (HSCRP) should be ordered. Performed By: #### L 500.4050, L100.0100, L101.9900, L501.6710 #### [facility] [address] [place], [address] Comprehensive Metabolic Prof ilon 05-30-2024 Albumin [Mass/Vol] 3.0 g/dL Low 3.2-5.0 [facility] Comment on above: Order Comment: URINE SUPPLIES GIVEN,PT UTV. RANGLE Performed By: #### L 500.4050, L100.0100, L101.9900, L501.6710 #### [facility] [address] [place], [address] Albumin/Globulin [Mass ratio] 0.7 {ratio} Low 0.9-2.4 [facility] Comment on above: Order Comment: URINE SUPPLIES GIVEN,PT UTV. RANGLE Performed By: #### L 500.4050, L100.0100, L101.9900, L501.6710 #### [facility] [address] [place], [address] ALK P 63 U/L Normal 45-117 [facility] Comment on above: Order Comment: URINE SUPPLIES GIVEN,PT UTV. RANGLE Performed By: #### L 500.4050, L100.0100, L101.9900, L501.6710 #### [facility] [address] [place], [address] ALT [Catalytic activity/Vol] 11 U/L Low 16-61 [facility] Comment on above: Order Comment: URINE SUPPLIES GIVEN,PT UTV. RANGLE Performed By: #### L 500.4050, L100.0100, L101.9900, L501.6710 #### [facility] [address] [place], [address] AST [Catalytic activity/Vol] 24 U/L Normal 15-37 [facility] Comment on above: Order Comment: URINE SUPPLIES GIVEN,PT UTV. RANGLE Performed By: #### L 500.4050, L100.0100, L101.9900, L501.6710 #### [facility] [address] [place], [address] Bilirubin [Mass/Vol] 1.60 mg/dL High 0.20-1.00 [facility] Comment on above: Order Comment: URINE SUPPLIES GIVEN,PT UTV. RANGLE Result Comment: For patients on eltrombopag therapy, use of Dimension Tynan TBIL is not recommended. Performed By: #### L 500.4050, L100.0100, L101.9900, L501.6710 #### [facility] [address] [place], [address] BUN/CRE 18.2 RATIO Normal 10-20 [facility] Comment on above: Order Comment: URINE SUPPLIES GIVEN,PT UTV. RANGLE Performed By: #### L 500.4050, L100.0100, L101.9900, L501.6710 #### [facility] [address] [place], [address] CA,Total 8.6 mg/dL Normal 8.5-10.1 [facility] Comment on above: Order Comment: URINE SUPPLIES GIVEN,PT UTV. RANGLE Performed By: #### L 500.4050, L100.0100, L101.9900, L501.6710 #### [facility] [address] [place], [address] Chloride [Moles/Vol] 102 mmol/L Normal 98-107 [facility] Comment on above: Order Comment: URINE SUPPLIES GIVEN,PT UTV. RANGLE Performed By: #### L 500.4050, L100.0100, L101.9900, L501.6710 #### [facility] [address] [place], [address] CO2 [Moles/Vol] 23.0 mmol/L Normal 21.0-32.0 [facility] Comment on above: Order Comment: URINE SUPPLIES GIVEN,PT UTV. RANGLE Performed By: #### L 500.4050, L100.0100, L101.9900, L501.6710 #### [facility] [address] [place], [address] Creatinine [Mass/Vol] 1.21 mg/dL Normal 0.70-1.30 [facility] Comment on above: Order Comment: URINE SUPPLIES GIVEN,PT UTV. RANGLE Result Comment: The validity of the calculated GFR GFRAA in patients over 70 years has not been determined. Clinical correlation is essential. Performed By: #### L 500.4050, L100.0100, L101.9900, L501.6710 #### [facility] [address] [place], [address] EST GFR - AA 73 mL/min Normal >60 [facility] Comment on above: Order Comment: URINE SUPPLIES GIVEN,PT UTV. RANGLE Result Comment: Afri can Salvadorean GFR Calc Performed By: #### L 500.4050, L100.0100, L101.9900, L501.6710 #### [facility] [address] [place], [address] GAP 10 Normal 5-15 [facility] Comment on above: Order Comment: URINE SUPPLIES GIVEN,PT UTV. RANGLE Performed By: #### L 500.4050, L100.0100, L101.9900, L501.6710 #### [facility] [address] [place], [address] GFR/1.73 sq M.predicted among non-blacks MDRD (S/P/Bld) [Vol rate/Area] 60 mL/min/{1.73_m2} Normal >60 [facility] Comment on above: Order Comment: URINE SUPPLIES GIVEN,PT UTV. RANGLE Result Comment: Non- GFR Calc Performed By: #### L 500.4050, L100.0100, L101.9900, L501.6710 #### [facility] [address] [place], [address] Globulin (S) [Mass/Vol] 4.4 g/dL High 2.2-4.2 [facility] Comment on above: Order Comment: URINE SUPPLIES GIVEN,PT UTV. RANGLE Performed By: #### L 500.4050, L100.0100, L101.9900, L501.6710 #### [facility] [address] [place], [address] Glucose [Mass/Vol] 137 mg/dL High 74-106 [facility] Comment on above: Order Comment: URINE SUPPLIES GIVEN,PT UTV. RANGLE Result Comment: Fast ing Glucose result greater than or equal to 126 mg/dL suggests DIABETES MELLITUS per A.D.A. criteria. Performed By: #### L 500.4050, L100.0100, L101.9900, L501.6710 #### [facility] [address] [place], [address] Potassium [Moles/Vol] 3.1 mmol/L Low 3.5-5.1 [facility] Comment on above: Order Comment: URINE SUPPLIES GIVEN,PT UTV. RANGLE Performed By: #### L 500.4050, L100.0100, L101.9900, L501.6710 #### [facility] [address] [place], [address] Sodium [Moles/Vol] 135 mmol/L Low 136-145 [facility] Comment on above: Order Comment: URINE SUPPLIES GIVEN,PT UTV. RANGLE Performed By: #### L 500.4050, L100.0100, L101.9900, L501.6710 #### [facility] [address] [place], [address] T PROT 7.4 g/dL Normal 6.4-8.2 [facility] Comment on above: Order Comment: URINE SUPPLIES GIVEN,PT UTV. RANGLE Performed By: #### L 500.4050, L100.0100, L101.9900, L501.6710 #### [facility] [address] [place], [address] Urea nitrogen [Mass/Vol] 22 mg/dL High 7-18 [facility] Comment on above: Order Comment: URINE SUPPLIES GIVEN,PT UTV. RANGLE Performed By: #### L 500.4050, L100.0100, L101.9900, L501.6710 #### [facility] [address] [place], [address] Erythrocyte Sed Rateon 07-30 -2024 SED RATE 18 mm/hr Normal 0-20 [facility] Comment on above: Performed By: #### L 500.4050, L100.0100, L101.9900, L501.6710 #### [facility] [address] [place], [address] Cardiology Visit Reporton Cardiology Visit Report [facility] [place] [facility] [address] [place] [address] OFFICE VISIT Date of Service: 05/23/24 MR#: [id number] Acct: [id number] Name: RAJAT GUZMÁN Rep #: [id number] : 1935 Provider: MORTEZA frazier Age/Sex: 89/M [place] [facility] [place] [facility] Status: Signed HPI HPI History of Present [...] NIBP Intake Visit Reasons: 6 M FU [employer] Required: No Is patient in pain?: No [...] Chest pain, precordial Atherosclerotic heart disease of [place] coronary artery without angina pectoris Dyspnea Fatigue [...] Never smo (more content not included)... Normal [facility] PSA,Total- Diagnosticon 05-01 PSA, DIAGNOSTIC 19.90 ng/mL High 0.0-4.0 [facility] Comment on above: Result Comment: This test was performed using the TPSA assay method for the [employer] chemistry system. Values obtained with different assay methods cannot be used interchangably. When changing PSA assays in the course of monitoring a patient, additional sequential testing should be carried out to confirm baseline values. Performed By: #### L 501.9940, L501.1105 #### [facility] [address] [place], [place], [address] Serum Creatinine AND GFRon 0 05-17-2024 Creatinine [Mass/Vol] 0.92 mg/dL Normal 0.70-1.30 [facility] Comment on above: Result Comment: The validity of the calculated GFR GFRAA in patients over 70 years has not been determined. Clinical correlation is essential. Performed By: #### L 501.9940, L501.1105 #### [facility] [address] [place], [address] EST GFR - AA 100 mL/min Normal >60 [facility] Comment on above: Result Comment: Afri can Salvadorean GFR Calc Performed By: #### L 501.9940, L501.1105 #### [facility] [address] [place], [place], [address] GFR/1.73 sq M.predicted among non-blacks MDRD (S/P/Bld) [Vol rate/Area] 83 mL/min/{1.73_m2} Normal >60 [facility] Comment on above: Result Comment: Non- GFR Calc Performed By: #### L 501.9940, L501.1105 #### [facility] [address] [place], [address] Basophil percentageOrdered B y: John Mckeon on 11-26-2023 Chloride [Moles/Vol] 105 mmol/L 98-107 [facility] Glucose [Mass/Vol] 102 mg/dL 74-106 [facility] Comment on above: Fasting Glucose resu lt from 100 to 125 mg/dL suggests IMPAIRED HOMEOSTASIS per A.D.A. criteria. Potassium [Moles/Vol] 4.0 mmol/L 3.5-5.1 [facility] Sodium [Moles/Vol] 137 mmol/L 136-145 [facility] - Chemistry and C hemistry - challengeOrdered By: John Mckeon on 11-26-2023 CO2 [Moles/Vol] 26.0 mmol/L 21.0-32.0 [facility] Magnesium [Mass/Vol] 2.4 mg/dL 1.6-2.6 [facility] Urea nitrogen/Creatinine [Mass ratio] 16.8 mg/mg 10-20 [facility] No Panel InformationOrdered By: John Mckeon on 11-26-2023 Estimated GFR (MDRD) Amer 112 mL/min >60 [facility] Comment on above: GFR Calc Estimated GFR (MDRD) Non-Af Amer 93 mL/min >60 [facility] Comment on above: Non- GFR Calc Serum or plasma calcium alfonso urement (mass/volume)Ordered By: John Mckeon on 11-26-2023 Calcium [Mass/Vol] 9.1 mg/dL 8.5-10.1 [facility] Serum or plasma creatinine m easurement (mass/volume)Ordered By: John Mckeon on 11-26-2023 Creatinine [Mass/Vol] 0.83 mg/dL 0.70-1.30 [facility] Comment on above: The validity of the calculated GFR & GFRAA in patients over 70 years has not been determined. Clinical correlation is essential. Serum or plasma urea nitroge n measurement (mass/volume)Ordered By: John Mckeon on 11-26-2023 Urea nitrogen [Mass/Vol] 14 mg/dL 7-18 [facility] Thin prep Papanicolaou smear with manual screeningOrdered By: John Mckeon on 11-26-2023 Thin prep Papanicolaou smear with manual screening 6 - [facility] INR in Blood by Coagulation assayOrdered By: Zacarias Valdes on 10-12-2023 INR Coag (Bld) [Relative time] 1.0 {INR} [facility] - CoagulationOrde red By: Zacarias Valdes on 10-12-2023 aPTT Coag (Bld) [Time] 28.7 s 24.1-36.2 [facility] PT Coag (PPP) [Time] 12.9 s 11.7-14.9 [facility] Culture, urineOrdered By: Nestor Mckeon on 09-15-2023 Bacteria identified Cx Nom (U) GPC Poss Enterococcus sp [facility] Basophil percentageOrdered B y: Manisha Varela on 09-06-2023 Chloride [Moles/Vol] 108 mmol/L 98-107 [facility] Glucose [Mass/Vol] 200 mg/dL 74-106 [facility] Comment on above: Glucose result great er than or equal to 200 mg/dLsuggests DIABETES MELLITUS per A.D.A. criteria. Potassium [Moles/Vol] 3.3 mmol/L 3.5-5.1 [facility] Sodium [Moles/Vol] 139 mmol/L 136-145 [facility] - Chemistry and C hemistry - challengeOrdered By: Manisha Varela on 09-06-2023 CO2 [Moles/Vol] 24.0 mmol/L 21.0-32.0 [facility] Urea nitrogen/Creatinine [Mass ratio] 23.3 mg/mg 10-20 [facility] No Panel InformationOrdered By: Manisha Varela on 09-06-2023 Estimated Creatinine Clearance Calc 40.32 ml/min [facility] Estimated GFR (MDRD) Amer 102 mL/min >60 [facility] Comment on above: GFR Calc Estimated GFR (MDRD) Non-Af Amer 84 mL/min >60 [facility] Comment on above: Non- GFR Calc Serum or plasma calcium alfonso urement (mass/volume)Ordered By: Manisha Varela on 09-06-2023 Calcium [Mass/Vol] 8.2 mg/dL 8.5-10.1 [facility] Serum or plasma creatinine m easurement (mass/volume)Ordered By: Manisha Varela on 09-06-2023 Creatinine [Mass/Vol] 0.90 mg/dL 0.70-1.30 [facility] Comment on above: The validity of the calculated GFR & GFRAA in patients over 70 years has not been determined. Clinical correlation is essential. Serum or plasma urea nitroge n measurement (mass/volume)Ordered By: Manisha Varela on 09-06-2023 Urea nitrogen [Mass/Vol] 21 mg/dL 7-18 [facility] Thin prep Papanicolaou smear with manual screeningOrdered By: Manisha Varela on 09-06-2023 Thin prep Papanicolaou smear with manual screening 7 5-15 [facility] Absolute lymphocyte countOrd ered By: Manisha Varela on 09-05-2023 Lymphocytes Auto (Unsp spec) [#/Vol] 1.75 10*3/uL 0.83-4.51 [facility] Basophil percentageOrdered B y: Manisha Varela on 09-05-2023 Basophils/100 WBC (Bld) 0.5 % 0-1 [facility] Chloride [Moles/Vol] 106 mmol/L 98-107 [facility] Eosinophils/100 WBC (Bld) 1.9 % 0-5 [facility] Glucose [Mass/Vol] 64 mg/dL 74-106 [facility] Neutrophils (Bld) [#/Vol] 5.3 10*3/uL 2.0-7.7 [facility] Neutrophils/100 WBC (Bld) 64.8 % 47-70 [facility] Potassium [Moles/Vol] 4.0 mmol/L 3.5-5.1 [facility] Sodium [Moles/Vol] 137 mmol/L 136-145 [facility] WBC (Bld) [#/Vol] 8.2 10*3/uL 4.4-11.0 [facility] Blood erythrocytes count (nu mber/volume)Ordered By: Manisha Varela on 09-05-2023 RBC (Bld) [#/Vol] 3.50 10*6/uL 4.6-6.2 [facility] Blood hemoglobin measurement (mass/volume)Ordered By: Manisha Varela on 09-05-2023 Hemoglobin (Bld) [Mass/Vol] 10.3 g/dL 13.0-16.5 [facility] Blood lymphocytes/100 leukoc ytesOrdered By: Manisha Varela on 09-05-2023 Lymphocytes/100 WBC (Bld) 21.3 % 19-41 [facility] Blood monocytes/100 leukocyt esOrdered By: Manisha Varela on 09-05-2023 Monocytes/100 WBC (Bld) 11.3 % 0-10 [facility] Blood platelet mean volumeOr dered By: Manisha Varela on 09-05-2023 Platelet mean volume (Bld) [Entitic vol] 11.8 fL 6.2-12.0 [facility] Determination of erythrocyte mean corpuscular volume (MCV)Ordered By: Manisha Varela on 09-05-2023 MCV (RBC) [Entitic vol] 93.4 fL 80-94 [facility] Hematocrit Auto (Bld) [Volum e fraction]Ordered By: Manisha Varela on 09-05-2023 Hematocrit (Bld) [Volume fraction] 32.7 % 40-54 [facility] - Chemistry and C hemistry - challengeOrdered By: Manisha Varela on 09-05-2023 CO2 [Moles/Vol] 19.0 mmol/L 21.0-32.0 [facility] Urea nitrogen/Creatinine [Mass ratio] 28.1 mg/mg 10-20 [facility] - Hematology and Cell countsOrdered By: Manisha Varela on 09-05-2023 Erythrocyte distribution width (RBC) [Entitic vol] 49.9 fL 35.1-43.9 [facility] Erythrocyte distribution width (RBC) [Ratio] 14.6 % 11.6-14.6 [facility] Immature granulocytes/100 WBC (Bld) 0.200 % 0.0-0.9 [facility] Comment on above: IG% - Immature Granu locytes (promyelocytes, myelocytes and metamyelocytes) > 1% indicates that a LEFT SHIFT is Present. MCH (RBC) [Entitic mass] 29.4 pg 27.0-32.0 [facility] Nucleated RBC/100 WBC (Bld) [Ratio] 0 % 0-5 [facility] MCHC Auto (RBC) [Mass/Vol]Or dered By: Manisha Varela on 09-05-2023 MCHC (RBC) [Mass/Vol] 31.5 g/dL 32-36 [facility] No Panel InformationOrdered By: Manisha Varela on 09-05-2023 Estimated Creatinine Clearance Calc 36.29 ml/min [facility] Estimated GFR (MDRD) Amer 91 mL/min >60 [facility] Comment on above: GFR Calc Estimated GFR (MDRD) Non-Af Amer 75 mL/min >60 [facility] Comment on above: Non- GFR Calc Platelets bldOrdered By: Andrew Varela on 09-05-2023 Platelets (Bld) [#/Vol] 183 10*3/uL 150-450 [facility] Serum or plasma calcium alfonso urement (mass/volume)Ordered By: Manisha Varela on 09-05-2023 Calcium [Mass/Vol] 8.4 mg/dL 8.5-10.1 [facility] Serum or plasma creatinine m easurement (mass/volume)Ordered By: Manisha Varela on 09-05-2023 Creatinine [Mass/Vol] 1.00 mg/dL 0.70-1.30 [facility] Comment on above: The validity of the calculated GFR & GFRAA in patients over 70 years has not been determined. Clinical correlation is essential. Serum or plasma urea nitroge n measurement (mass/volume)Ordered By: Manisha Varela on 09-05-2023 Urea nitrogen [Mass/Vol] 28 mg/dL 7-18 [facility] Thin prep Papanicolaou smear with manual screeningOrdered By: Manisha Varela on 09-05-2023 Thin prep Papanicolaou smear with manual screening 12 5-15 [facility] Absolute lymphocyte countOrd ered By: Robbi Hopkins on 09-04-2023 Lymphocytes Auto (Unsp spec) [#/Vol] 1.47 10*3/uL 0.83-4.51 [facility] Basophil percentageOrdered B y: Robbi Hopkins on 09-04-2023 Basophils/100 WBC (Bld) 0.4 % 0-1 [facility] Bilirubin [Mass/Vol] 1.80 mg/dL 0.20-1.00 [facility] Comment on above: For patients on eltr ombopag therapy, use of Dimension Tynan TBIL is not recommended. Chloride [Moles/Vol] 101 mmol/L 98-107 [facility] Eosinophils/100 WBC (Bld) 0.2 % 0-5 [facility] Glucose [Mass/Vol] 94 mg/dL 74-106 [facility] Neutrophils (Bld) [#/Vol] 10.3 10*3/uL 2.0-7.7 [facility] Neutrophils/100 WBC (Bld) 77.7 % 47-70 [facility] Potassium [Moles/Vol] 4.2 mmol/L 3.5-5.1 [facility] Protein [Mass/Vol] 7.2 g/dL 6.4-8.2 [facility] Sodium [Moles/Vol] 134 mmol/L 136-145 [facility] WBC (Bld) [#/Vol] 13.2 10*3/uL 4.4-11.0 [facility] Basophil percentage 5-10 SEEN /hpf 0-5 [facility] Bilirubin Test strip Ql (U)O rdered By: Robbi Hopkins on 09-04-2023 Bilirubin Ql (U) Negative Negative [facility] Blood erythrocytes count (nu mber/volume)Ordered By: Robbi Hopkins on 09-04-2023 RBC (Bld) [#/Vol] 3.84 10*6/uL 4.6-6.2 [facility] Blood hemoglobin measurement (mass/volume)Ordered By: Robbi Hopkins on 09-04-2023 Hemoglobin (Bld) [Mass/Vol] 11.3 g/dL 13.0-16.5 [facility] Blood lymphocytes/100 leukoc ytesOrdered By: Robbi Hopkins on 09-04-2023 Lymphocytes/100 WBC (Bld) 11.1 % 19-41 [facility] Blood monocytes/100 leukocyt esOrdered By: Robbi Hopkins on 09-04-2023 Monocytes/100 WBC (Bld) 10.2 % 0-10 [facility] Blood platelet mean volumeOr dered By: Robbi Hopkins on 09-04-2023 Platelet mean volume (Bld) [Entitic vol] 11.7 fL 6.2-12.0 [facility] Culture, urineOrdered By: Umer Hopkins on 09-04-2023 Bacteria identified Cx Nom (U) Staphylococcus lugdunensis [facility] Determination of erythrocyte mean corpuscular volume (MCV)Ordered By: Robbi Hopkins on 09-04-2023 MCV (RBC) [Entitic vol] 93.0 fL 80-94 [facility] Hematocrit Auto (Bld) [Volum e fraction]Ordered By: Robbi Hopkins on 09-04-2023 Hematocrit (Bld) [Volume fraction] 35.7 % 40-54 [facility] Ketones Test strip Ql (U)Ord ered By: Robbi Hopkins on 09-04-2023 Ketones Ql (U) 50 mg/dl Negative [facility] Laboratory - Chemistry and C hemistry - challengeOrdered By: Robbi Hopkins on 09-04-2023 ALP [Catalytic activity/Vol] 54 U/L 45-117 [facility] ALT [Catalytic activity/Vol] 11 U/L 16-61 [facility] CO2 [Moles/Vol] 17.0 mmol/L 21.0-32.0 [facility] Globulin (S) [Mass/Vol] 3.8 g/dL 2.2-4.2 [facility] Lipase [Catalytic activity/Vol] 11 U/L 13-75 [facility] Comment on above: Please note:LIPASE r evised reference range effective 23. New Lipase methodology. Expected to produce lower values than the previous assay method. NEW Reference Range: 13 - 75 U/L Urea nitrogen/Creatinine [Mass ratio] 25.2 mg/mg 10-20 [facility] Laboratory - Hematology and Cell countsOrdered By: Robbi Hopkins on 09-04-2023 Erythrocyte distribution width (RBC) [Entitic vol] 49.5 fL 35.1-43.9 [facility] Erythrocyte distribution width (RBC) [Ratio] 14.6 % 11.6-14.6 [facility] Immature granulocytes/100 WBC (Bld) 0.400 % 0.0-0.9 [facility] Comment on above: IG% - Immature Granu locytes (promyelocytes, myelocytes and metamyelocytes) > 1% indicates that a LEFT SHIFT is Present. MCH (RBC) [Entitic mass] 29.4 pg 27.0-32.0 [facility] Nucleated RBC/100 WBC (Bld) [Ratio] 0 % 0-5 [facility] MCHC Auto (RBC) [Mass/Vol]Or dered By: Robbi Hopkins on 09-04-2023 MCHC (RBC) [Mass/Vol] 31.7 g/dL 32-36 [facility] Mucus LM Ql (Urine sed)Order ed By: Robbi Hopkins on 09-04-2023 Mucus Ql (Urine sed) 0 SEEN /hpf [facility] Nitrite Test strip Ql (U)Ord ered By: Robbi Hokpins on 09-04-2023 Nitrite Ql (U) Positive Negative [facility] No Panel InformationOrdered By: Robbi Hopkins on 09-04-2023 Estimated Creatinine Clearance Calc 27.02 ml/min [facility] Estimated GFR (MDRD) Amer 62 mL/min >60 [facility] Comment on above: GFR Calc Estimated GFR (MDRD) Non-Af Amer 51 mL/min >60 [facility] Comment on above: Non- GFR Calc Platelets bldOrdered By: Coco Hopkins on 09-04-2023 Platelets (Bld) [#/Vol] 208 10*3/uL 150-450 [facility] Protein Test strip Ql (U)Ord ered By: Robbi Hopkins on 09-04-2023 Protein Ql (U) 15 mg/dl Negative [facility] Serum or plasma albumin alfonso urement (mass/volume)Ordered By: Robbi Hopkins on 09-04-2023 Albumin [Mass/Vol] 3.4 g/dL 3.2-5.0 [facility] Serum or plasma albumin/glob ulin mass ratioOrdered By: Robbi Hopkins on 09-04-2023 Albumin/Globulin [Mass ratio] 0.9 {ratio} 0.9-2.4 [facility] Serum or plasma calcium alfonso urement (mass/volume)Ordered By: Robbi Hopkins on 09-04-2023 Calcium [Mass/Vol] 8.7 mg/dL 8.5-10.1 [facility] Serum or plasma creatinine m easurement (mass/volume)Ordered By: Robbi Hopkins on 09-04-2023 Creatinine [Mass/Vol] 1.39 mg/dL 0.70-1.30 [facility] Comment on above: The validity of the calculated GFR & GFRAA in patients over 70 years has not been determined. Clinical correlation is essential. Serum or plasma urea nitroge n measurement (mass/volume)Ordered By: Robbi Hopkins on 09-04-2023 Urea nitrogen [Mass/Vol] 35 mg/dL 7-18 [facility] Squamous epithelial cells de tection in urine sediment by light microscopyOrdered By: Robbi Hopkins on 09-04-2023 Epithelial cells.squamous LM Ql (Urine sed) 0 SEEN /hpf 0-5 [facility] Thin prep Papanicolaou smear with manual screeningOrdered By: Robbi Hopkins on 09-04-2023 Thin prep Papanicolaou smear with manual screening 10 U/L 15-37 [facility] Thin prep Papanicolaou smear with manual screening 16 5-15 [facility] Urine blood detectionOrdered By: Robbi Hopkins on 09-04-2023 RBC Ql (U) 150 /ul Negative [facility] RBC Ql (U) 0-5 SEEN /hpf 0-5 [facility] Urine clarityOrdered By: Coco Hopkins on 09-04-2023 Clarity (U) Sl. Cloudy Clear [facility] Urine color determinationOrd ered By: Robbi Hopkins on 09-04-2023 Color (U) Yellow Yellow [facility] Urine glucose detectionOrder ed By: Robbi Hopkins on 09-04-2023 Glucose Ql (U) Normal mg/dl Normal [facility] Urine leukocyte esterase det ection by dipstickOrdered By: Robbi Hopkins on 09-04-2023 Leukocyte esterase Test strip Ql (U) 25 /ul Negative [facility] Urine pHOrdered By: Robbi delgadillo on 09-04-2023 pH (U) 6.0 [pH] 5.0 - 8.0 [facility] Urine sediment bacteria coun t by microscopy (number/high power field)Ordered By: Robbi Hopkins on 09-04-2023 Bacteria LM.HPF (Urine sed) [#/Area] 1 /[HPF] None Seen [facility] Urine specific gravity measu rementOrdered By: Robbi Hopkins on 09-04-2023 Specific gravity (U) [Rel density] 1.020 1.002-1.03 0 [facility] Urobilinogen Auto test strip Ql (U)Ordered By: Robbi Hopkins on 09-04-2023 Urobilinogen Ql (U) Normal mg/dl Normal [facility] No Panel InformationOrdered By: Faisal Barth on 08-31-2023 Prostate Specific Antigen Total 18.80 ng/mL 0.0-4.0 [facility] Comment on above: This test was perfor med using the TPSA assay method for theDimension chemistry system. Values obtained with differentassay methods cannot be used interchangably.When changing PSA assays in the course of monitoring apatient, additional sequential testing should be carriedout to confirm baseline values. Basophil percentageOrdered B y: Cynthia Bowen on 07-20-2023 Chloride [Moles/Vol] 106 mmol/L 98-107 [facility] Glucose [Mass/Vol] 114 mg/dL 74-106 [facility] Comment on above: Fasting Glucose resu lt from 100 to 125 mg/dL suggests IMPAIRED HOMEOSTASIS per A.D.A. criteria. Potassium [Moles/Vol] 4.1 mmol/L 3.5-5.1 [facility] Sodium [Moles/Vol] 139 mmol/L 136-145 [facility] Laboratory - Chemistry and C hemistry - challengeOrdered By: Cynthia Bowen on 07-20-2023 CO2 [Moles/Vol] 30.0 mmol/L 21.0-32.0 [facility] Urea nitrogen/Creatinine [Mass ratio] 16.6 mg/mg 10-20 [facility] No Panel InformationOrdered By: Cynthia Bowen on 07-20-2023 Estimated GFR (MDRD) Amer 95 mL/min >60 [facility] Comment on above: GFR Calc Estimated GFR (MDRD) Non-Af Amer 78 mL/min >60 [facility] Comment on above: Non- GFR Calc Serum or plasma calcium alfonso urement (mass/volume)Ordered By: Cynthia Bowen on 07-20-2023 Calcium [Mass/Vol] 8.5 mg/dL 8.5-10.1 [facility] Serum or plasma creatinine m easurement (mass/volume)Ordered By: Cynthia Bowen on 07-20-2023 Creatinine [Mass/Vol] 0.97 mg/dL 0.70-1.30 [facility] Comment on above: The validity of the calculated GFR & GFRAA in patients over 70 years has not been determined. Clinical correlation is essential. Serum or plasma urea nitroge n measurement (mass/volume)Ordered By: Cynthia Bowen on 07-20-2023 Urea nitrogen [Mass/Vol] 16 mg/dL 7-18 [facility] Thin prep Papanicolaou smear with manual screeningOrdered By: Cynthia Bowen on 07-20-2023 Thin prep Papanicolaou smear with manual screening 3 5-15 [facility] Basophil percentageOrdered B y: Cynthia Bowen on 07-09-2023 Chloride [Moles/Vol] 106 mmol/L 98-107 [facility] Glucose [Mass/Vol] 111 mg/dL 74-106 [facility] Comment on above: Fasting Glucose resu lt from 100 to 125 mg/dL suggests IMPAIRED HOMEOSTASIS per A.D.A. criteria. Potassium [Moles/Vol] 4.0 mmol/L 3.5-5.1 [facility] Sodium [Moles/Vol] 139 mmol/L 136-145 [facility] WBC (Bld) [#/Vol] 6.8 10*3/uL 4.4-11.0 [facility] Blood erythrocytes count (nu mber/volume)Ordered By: Cynthia Bowen on 07-09-2023 RBC (Bld) [#/Vol] 4.37 10*6/uL 4.6-6.2 [facility] Blood hemoglobin measurement (mass/volume)Ordered By: Cynthia Bowen on 07-09-2023 Hemoglobin (Bld) [Mass/Vol] 12.8 g/dL 13.0-16.5 [facility] Blood platelet mean volumeOr dered By: Cynthia Bowen on 07-09-2023 Platelet mean volume (Bld) [Entitic vol] 11.2 fL 6.2-12.0 [facility] Determination of erythrocyte mean corpuscular volume (MCV)Ordered By: Cynthia Bowen on 07-09-2023 MCV (RBC) [Entitic vol] 91.1 fL 80-94 [facility] Hematocrit Auto (Bld) [Volum e fraction]Ordered By: Cynthia Bowen on 07-09-2023 Hematocrit (Bld) [Volume fraction] 39.8 % 40-54 [facility] Laboratory - Chemistry and C hemistry - challengeOrdered By: Cynthia Bowen on 07-09-2023 CO2 [Moles/Vol] 28.0 mmol/L 21.0-32.0 [facility] Natriuretic peptide B (Bld) [Mass/Vol] 157.6 pg/mL 0-100 [facility] Urea nitrogen/Creatinine [Mass ratio] 25.1 mg/mg 10-20 [facility] Laboratory - Hematology and Cell countsOrdered By: Cynthia Bowen on 07-09-2023 Erythrocyte distribution width (RBC) [Entitic vol] 45.5 fL 35.1-43.9 [facility] Erythrocyte distribution width (RBC) [Ratio] 13.5 % 11.6-14.6 [facility] MCH (RBC) [Entitic mass] 29.3 pg 27.0-32.0 [facility] MCHC Auto (RBC) [Mass/Vol]Or dered By: Cynthia Bowen on 07-09-2023 MCHC (RBC) [Mass/Vol] 32.2 g/dL 32-36 [facility] No Panel InformationOrdered By: Cynthia Bowen on 07-09-2023 Estimated GFR (MDRD) Amer 111 mL/min >60 [facility] Comment on above: GFR Calc Estimated GFR (MDRD) Non-Af Amer 92 mL/min >60 [facility] Comment on above: Non- GFR Calc Thyroid Stimulating Hormone (TSH) 0.79 uIU/mL 0.358-3.74 [facility] Platelets bldOrdered By: Carlos Bowen on 07-09-2023 Platelets (Bld) [#/Vol] 174 10*3/uL 150-450 [facility] Serum or plasma calcium alfonso urement (mass/volume)Ordered By: Cynthia Bowen on 07-09-2023 Calcium [Mass/Vol] 9.1 mg/dL 8.5-10.1 [facility] Serum or plasma creatinine m easurement (mass/volume)Ordered By: Cynthia Bowen on 07-09-2023 Creatinine [Mass/Vol] 0.84 mg/dL 0.70-1.30 [facility] Comment on above: The validity of the calculated GFR & GFRAA in patients over 70 years has not been determined. Clinical correlation is essential. Serum or plasma urea nitroge n measurement (mass/volume)Ordered By: Cynthia Bowen on 07-09-2023 Urea nitrogen [Mass/Vol] 21 mg/dL 7-18 [facility] Thin prep Papanicolaou smear with manual screeningOrdered By: Cynthia Bowen on 07-09-2023 Thin prep Papanicolaou smear with manual screening 5 5-15 [facility] Absolute lymphocyte countOrd ered By: Dr. Mckeon on 03-26-2023 Lymphocytes Auto (Unsp spec) [#/Vol] 1.89 10*3/uL 0.83-4.51 [facility] Basophil percentageOrdered B y: Dr. Mckeon on 03-26-2023 Basophils/100 WBC (Bld) 0.3 % 0-1 [facility] Bilirubin [Mass/Vol] 1.10 mg/dL 0.20-1.00 [facility] Comment on above: For patients on eltr ombopag therapy, use of Dimension Tynan TBIL is not recommended. Chloride [Moles/Vol] 104 mmol/L 98-107 [facility] Eosinophils/100 WBC (Bld) 0.4 % 0-5 [facility] Glucose [Mass/Vol] 113 mg/dL 74-106 [facility] Comment on above: Fasting Glucose resu lt from 100 to 125 mg/dL suggests IMPAIRED HOMEOSTASIS per A.D.A. criteria. Neutrophils (Bld) [#/Vol] 8.9 10*3/uL 2.0-7.7 [facility] Neutrophils/100 WBC (Bld) 72.9 % 47-70 [facility] Potassium [Moles/Vol] 4.1 mmol/L 3.5-5.1 [facility] Protein [Mass/Vol] 7.4 g/dL 6.4-8.2 [facility] Sodium [Moles/Vol] 138 mmol/L 136-145 [facility] WBC (Bld) [#/Vol] 12.2 10*3/uL 4.4-11.0 [facility] Blood erythrocytes count (nu mber/volume)Ordered By: Dr. Mckeon on 03-26-2023 RBC (Bld) [#/Vol] 4.04 10*6/uL 4.6-6.2 [facility] Blood hemoglobin measurement (mass/volume)Ordered By: Dr. Mckeon on 03-26-2023 Hemoglobin (Bld) [Mass/Vol] 12.1 g/dL 13.0-16.5 [facility] Blood lymphocytes/100 leukoc ytesOrdered By: Dr. Mckeon on 03-26-2023 Lymphocytes/100 WBC (Bld) 15.6 % 19-41 [facility] Blood monocytes/100 leukocyt esOrdered By: Dr. Mckeon on 03-26-2023 Monocytes/100 WBC (Bld) 10.6 % 0-10 [facility] Blood platelet mean volumeOr dered By: Dr. Mckeon on 03-26-2023 Platelet mean volume (Bld) [Entitic vol] 11.2 fL 6.2-12.0 [facility] Determination of erythrocyte mean corpuscular volume (MCV)Ordered By: Dr. Mckeon on 03-26-2023 MCV (RBC) [Entitic vol] 92.8 fL 80-94 [facility] Hematocrit Auto (Bld) [Volum e fraction]Ordered By: Dr. Mckeon on 03-26-2023 Hematocrit (Bld) [Volume fraction] 37.5 % 40-54 [facility] Laboratory - Chemistry and C hemistry - challengeOrdered By: Dr. Mckeon on 03-26-2023 ALP [Catalytic activity/Vol] 65 U/L 45-117 [facility] ALT [Catalytic activity/Vol] 16 U/L 16-61 [facility] CO2 [Moles/Vol] 28.0 mmol/L 21.0-32.0 [facility] Globulin (S) [Mass/Vol] 3.8 g/dL 2.2-4.2 [facility] Urea nitrogen/Creatinine [Mass ratio] 14.3 mg/mg 10-20 [facility] Laboratory - Hematology and Cell countsOrdered By: Dr. Mckeon on 03-26-2023 Erythrocyte distribution width (RBC) [Entitic vol] 49.5 fL 35.1-43.9 [facility] Erythrocyte distribution width (RBC) [Ratio] 14.4 % 11.6-14.6 [facility] Immature granulocytes/100 WBC (Bld) 0.200 % 0.0-0.9 [facility] Comment on above: IG% - Immature Granu locytes (promyelocytes, myelocytes and metamyelocytes) > 1% indicates that a LEFT SHIFT is Present. MCH (RBC) [Entitic mass] 30.0 pg 27.0-32.0 [facility] Nucleated RBC/100 WBC (Bld) [Ratio] 0 % 0-5 [facility] MCHC Auto (RBC) [Mass/Vol]Or dered By: Dr. Mckeon on 03-26-2023 MCHC (RBC) [Mass/Vol] 32.3 g/dL 32-36 [facility] No Panel InformationOrdered By: Dr. Mckeon on 03-26-2023 CA 19-9 Antigen 7 U/mL 0-35 [facility] Comment on above: [employer] El ectrochemiluminescence Immunoassay(ECLIA)Values obtained with different assay methods or kits cannotbe used interchangeably. Results cannot be interpreted asabsolute evidence of the presence or absence of malignantdisease.Performed at: [id number] [id number] Director: Toi Ponce PhD, Phone: [phone] Estimated GFR (MDRD) Amer 93 mL/min >60 [facility] Comment on above: GFR Calc Estimated GFR (MDRD) Non-Af Amer 77 mL/min >60 [facility] Comment on above: Non- GFR Calc Platelets bldOrdered By: Dr. Mckeon on 03-26-2023 Platelets (Bld) [#/Vol] 224 10*3/uL 150-450 [facility] Serum or plasma C reactive p rotein measurement (mass/volume)Ordered By: Dr. Mckeon on 03-26-2023 CRP [Mass/Vol] 39.50 mg/L 0.0-3.0 [facility] Comment on above: C-Reactive Protein ( CRP) provides useful information for thediagnosis, therapy and monitoring of inflammatory processesand associated diseases. For the evaluation of Relative Riskfor Cardiovascular Disease, a High Sensitivity CRP (HSCRP)should be ordered. Serum or plasma albumin alfonso urement (mass/volume)Ordered By: Dr. Mckeon on 03-26-2023 Albumin [Mass/Vol] 3.6 g/dL 3.2-5.0 [facility] Serum or plasma albumin/glob ulin mass ratioOrdered By: Dr. Mckeon on 03-26-2023 Albumin/Globulin [Mass ratio] 0.9 {ratio} 0.9-2.4 [facility] Serum or plasma calcium alfonso urement (mass/volume)Ordered By: Dr. Mckeon on 03-26-2023 Calcium [Mass/Vol] 8.6 mg/dL 8.5-10.1 [facility] Serum or plasma carcinoembry onic antigen measurement (mass/volume)Ordered By: Dr. Mckeon on 03-26-2023 Carcinoembryonic Ag [Mass/Vol] 0.7 ng/mL 0.0-4.7 [facility] Comment on above: Nonsmokers <3.9 Smok ers <5.6[employer] Electrochemiluminescence Immunoassay(ECLIA)Values obtained with different assay methods or kitscannot be used interchangeably. Results cannot beinterpreted as absolute evidence of the presence orabsence of malignant disease. Serum or plasma creatinine m easurement (mass/volume)Ordered By: Dr. Mckeon on 03-26-2023 Creatinine [Mass/Vol] 0.98 mg/dL 0.70-1.30 [facility] Comment on above: The validity of the calculated GFR & GFRAA in patients over 70 years has not been determined. Clinical correlation is essential. Serum or plasma urea nitroge n measurement (mass/volume)Ordered By: Dr. Mckeon on 03-26-2023 Urea nitrogen [Mass/Vol] 14 mg/dL 7-18 [facility] Thin prep Papanicolaou smear with manual screeningOrdered By: Dr. Mckeon on 03-26-2023 Thin prep Papanicolaou smear with manual screening 17 U/L 15-37 [facility] Thin prep Papanicolaou smear with manual screening 6 5-15 [facility] Absolute lymphocyte countOrd ered By: Dr. Villarreal on 01-06-2023 Lymphocytes Auto (Unsp spec) [#/Vol] 1.31 10*3/uL 0.83-4.51 [facility] Basophil percentageOrdered B y: Dr. Villarreal on 01-06-2023 Basophils/100 WBC (Bld) 0.3 % 0-1 [facility] Chloride [Moles/Vol] 108 mmol/L 98-107 [facility] Eosinophils/100 WBC (Bld) 1.2 % 0-5 [facility] Glucose [Mass/Vol] 123 mg/dL 74-106 [facility] Comment on above: Fasting Glucose resu lt from 100 to 125 mg/dL suggests IMPAIRED HOMEOSTASIS per A.D.A. criteria. Neutrophils (Bld) [#/Vol] 9.1 10*3/uL 2.0-7.7 [facility] Neutrophils/100 WBC (Bld) 74.2 % 47-70 [facility] Potassium [Moles/Vol] 3.7 mmol/L 3.5-5.1 [facility] Sodium [Moles/Vol] 139 mmol/L 136-145 [facility] WBC (Bld) [#/Vol] 12.2 10*3/uL 4.4-11.0 [facility] Blood erythrocytes count (nu mber/volume)Ordered By: Dr. Villarreal on 01-06-2023 RBC (Bld) [#/Vol] 3.97 10*6/uL 4.6-6.2 [facility] Blood hemoglobin measurement (mass/volume)Ordered By: Dr. Villarreal on 01-06-2023 Hemoglobin (Bld) [Mass/Vol] 11.9 g/dL 13.0-16.5 [facility] Blood lymphocytes/100 leukoc ytesOrdered By: Dr. Villarreal on 01-06-2023 Lymphocytes/100 WBC (Bld) 10.7 % 19-41 [facility] Blood manual differential co mment interpretation (narrative result)Ordered By: Dr. Villarreal on 01-06-2023 Manual differential comment Liang (Bld) [Interp] SCANNED [facility] Blood monocytes/100 leukocyt esOrdered By: Dr. Villarreal on 01-06-2023 Monocytes/100 WBC (Bld) 13.4 % 0-10 [facility] Blood platelet mean volumeOr dered By: Dr. Villarreal on 01-06-2023 Platelet mean volume (Bld) [Entitic vol] 10.8 fL 6.2-12.0 [facility] Determination of erythrocyte mean corpuscular volume (MCV)Ordered By: Dr. Villarreal on 01-06-2023 MCV (RBC) [Entitic vol] 91.9 fL 80-94 [facility] Hematocrit Auto (Bld) [Volum e fraction]Ordered By: Dr. Villarreal on 01-06-2023 Hematocrit (Bld) [Volume fraction] 36.5 % 40-54 [facility] Laboratory - Chemistry and C hemistry - challengeOrdered By: Dr. Villarreal on 01-06-2023 CO2 [Moles/Vol] 26.0 mmol/L 21.0-32.0 [facility] Urea nitrogen/Creatinine [Mass ratio] 11.6 mg/mg 10-20 [facility] Laboratory - Hematology and Cell countsOrdered By: Dr. Villarreal on 01-06-2023 Erythrocyte distribution width (RBC) [Entitic vol] 48.6 fL 35.1-43.9 [facility] Erythrocyte distribution width (RBC) [Ratio] 14.4 % 11.6-14.6 [facility] Immature granulocytes/100 WBC (Bld) 0.200 % 0.0-0.9 [facility] Comment on above: IG% - Immature Granu locytes (promyelocytes, myelocytes and metamyelocytes) > 1% indicates that a LEFT SHIFT is Present. MCH (RBC) [Entitic mass] 30.0 pg 27.0-32.0 [facility] Nucleated RBC/100 WBC (Bld) [Ratio] 0 % 0-5 [facility] Auto (RBC) [Mass/Vol]Or dered By: Dr. Villarreal on 01-06-2023 MCHC (RBC) [Mass/Vol] 32.6 g/dL 32-36 [facility] No Panel InformationOrdered By: Dr. Villarreal on 01-06-2023 Estimated Creatinine Clearance Calc 46.20 ml/min [facility] Estimated GFR (MDRD) Amer 108 mL/min >60 [facility] Comment on above: GFR Calc Estimated GFR (MDRD) Non-Af Amer 89 mL/min >60 [facility] Comment on above: Non- GFR Calc Platelets bldOrdered By: Dr. Villarreal on 01-06-2023 Platelets (Bld) [#/Vol] 225 10*3/uL 150-450 [facility] Review by pathologistOrdered By: Dr. Villarreal on 01-06-2023 Pathologist review Liang (Unsp spec) [Interp] Reviewed [facility] Comment on above: Previous reported re sult: Sonia anthony Edited by: RGORENATA on 01/07/23:1327Neutrophilic leukocytosis.Clinical correlation necessary.Eddi Swartz M.D. 01/07/23 AMENDED REPORT 01/07/23 1327 PATH REV previously reported as: Sonia anthony Serum or plasma calcium alfonso urement (mass/volume)Ordered By: Dr. Villarreal on 01-06-2023 Calcium [Mass/Vol] 8.3 mg/dL 8.5-10.1 [facility] Serum or plasma creatinine m easurement (mass/volume)Ordered By: Dr. Villarreal on 01-06-2023 Creatinine [Mass/Vol] 0.86 mg/dL 0.70-1.30 [facility] Comment on above: The validity of the calculated GFR & GFRAA in patients over 70 years has not been determined. Clinical correlation is essential. Serum or plasma urea nitroge n measurement (mass/volume)Ordered By: Dr. Villarreal on 01-06-2023 Urea nitrogen [Mass/Vol] 10 mg/dL 7-18 [facility] Thin prep Papanicolaou smear with manual screeningOrdered By: Dr. Villarreal on 01-06-2023 Thin prep Papanicolaou smear with manual screening 5 5-15 [facility] Absolute lymphocyte countOrd ered By: Dr. Morgan on 12-27-2022 Lymphocytes Auto (Unsp spec) [#/Vol] 1.73 10*3/uL 0.83-4.51 [facility] Basophil percentageOrdered B y: Dr. Morgan on 12-27-2022 Basophil percentage 0-5 SEEN /hpf 0-5 [facility] Basophils/100 WBC (Bld) 0.5 % 0-1 [facility] Bilirubin [Mass/Vol] 2.10 mg/dL 0.20-1.00 [facility] Comment on above: For patients on eltr ombopag therapy, use of Dimension Tynan TBIL is not recommended. Chloride [Moles/Vol] 102 mmol/L 98-107 [facility] Eosinophils/100 WBC (Bld) 1.0 % 0-5 [facility] Glucose [Mass/Vol] 135 mg/dL 74-106 [facility] Comment on above: Fasting Glucose resu lt greater than or equal to 126 mg/dL suggests DIABETES MELLITUS per A.D.A. criteria. Neutrophils (Bld) [#/Vol] 7.5 10*3/uL 2.0-7.7 [facility] Neutrophils/100 WBC (Bld) 69.5 % 47-70 [facility] Potassium [Moles/Vol] 3.4 mmol/L 3.5-5.1 [facility] Protein [Mass/Vol] 7.6 g/dL 6.4-8.2 [facility] Sodium [Moles/Vol] 139 mmol/L 136-145 [facility] WBC (Bld) [#/Vol] 10.8 10*3/uL 4.4-11.0 [facility] Bilirubin Test strip Ql (U)O rdered By: Dr. Morgan on 12-27-2022 Bilirubin Ql (U) Negative Negative [facility] Blood erythrocytes count (nu mber/volume)Ordered By: Dr. Morgan on 12-27-2022 RBC (Bld) [#/Vol] 4.29 10*6/uL 4.6-6.2 [facility] Blood hemoglobin measurement (mass/volume)Ordered By: Dr. Morgan on 12-27-2022 Hemoglobin (Bld) [Mass/Vol] 12.8 g/dL 13.0-16.5 [facility] Blood lymphocytes/100 leukoc ytesOrdered By: Dr. Morgan on 12-27-2022 Lymphocytes/100 WBC (Bld) 16.0 % 19-41 [facility] Blood monocytes/100 leukocyt esOrdered By: Dr. Morgan on 12-27-2022 Monocytes/100 WBC (Bld) 12.6 % 0-10 [facility] Blood platelet mean volumeOr dered By: Dr. Morgan on 12-27-2022 Platelet mean volume (Bld) [Entitic vol] 11.6 fL 6.2-12.0 [facility] Determination of erythrocyte mean corpuscular volume (MCV)Ordered By: Dr. Morgan on 12-27-2022 MCV (RBC) [Entitic vol] 91.4 fL 80-94 [facility] Hematocrit Auto (Bld) [Volum e fraction]Ordered By: Dr. Morgan on 12-27-2022 Hematocrit (Bld) [Volume fraction] 39.2 % 40-54 [facility] Ketones Test strip Ql (U)Ord ered By: Dr. Morgan on 12-27-2022 Ketones Ql (U) Negative Negative [facility] Laboratory - Chemistry and C hemistry - challengeOrdered By: Dr. Morgan on 12-27-2022 ALP [Catalytic activity/Vol] 68 U/L 45-117 [facility] ALT [Catalytic activity/Vol] 11 U/L 16-61 [facility] CO2 [Moles/Vol] 30.0 mmol/L 21.0-32.0 [facility] Globulin (S) [Mass/Vol] 3.7 g/dL 2.2-4.2 [facility] Urea nitrogen/Creatinine [Mass ratio] 11.9 mg/mg 10-20 [facility] Laboratory - Hematology and Cell countsOrdered By: Dr. Morgan on 12-27-2022 Erythrocyte distribution width (RBC) [Entitic vol] 46.6 fL 35.1-43.9 [facility] Erythrocyte distribution width (RBC) [Ratio] 14.0 % 11.6-14.6 [facility] Immature granulocytes/100 WBC (Bld) 0.400 % 0.0-0.9 [facility] Comment on above: IG% - Immature Granu locytes (promyelocytes, myelocytes and metamyelocytes) > 1% indicates that a LEFT SHIFT is Present. MCH (RBC) [Entitic mass] 29.8 pg 27.0-32.0 [facility] Nucleated RBC/100 WBC (Bld) [Ratio] 0 % 0-5 [facility] MCHC Auto (RBC) [Mass/Vol]Or dered By: Dr. Morgan on 12-27-2022 MCHC (RBC) [Mass/Vol] 32.7 g/dL 32-36 [facility] Mucus LM Ql (Urine sed)Order ed By: Dr. Morgan on 12-27-2022 Mucus Ql (Urine sed) 0 SEEN /hpf [facility] Nitrite Test strip Ql (U)Ord ered By: Dr. Morgan on 12-27-2022 Nitrite Ql (U) Negative Negative [facility] No Panel InformationOrdered By: Dr. Morgan on 12-27-2022 Estimated Creatinine Clearance Calc 42.47 ml/min [facility] Estimated GFR (MDRD) Amer 99 mL/min >60 [facility] Comment on above: GFR Calc Estimated GFR (MDRD) Non-Af Amer 82 mL/min >60 [facility] Comment on above: Non- GFR Calc Platelets bldOrdered By: Dr. Morgan on 12-27-2022 Platelets (Bld) [#/Vol] 195 10*3/uL 150-450 [facility] Protein Test strip Ql (U)Ord ered By: Dr. Morgan on 12-27-2022 Protein Ql (U) 15 mg/dl Negative [facility] Serum or plasma albumin alfonso urement (mass/volume)Ordered By: Dr. Mrogan on 12-27-2022 Albumin [Mass/Vol] 3.9 g/dL 3.2-5.0 [facility] Serum or plasma albumin/glob ulin mass ratioOrdered By: Dr. Morgan on 12-27-2022 Albumin/Globulin [Mass ratio] 1.1 {ratio} 0.9-2.4 [facility] Serum or plasma calcium alfonso urement (mass/volume)Ordered By: Dr. Morgan on 12-27-2022 Calcium [Mass/Vol] 8.9 mg/dL 8.5-10.1 [facility] Serum or plasma creatinine m easurement (mass/volume)Ordered By: Dr. Morgan on 12-27-2022 Creatinine [Mass/Vol] 0.93 mg/dL 0.70-1.30 [facility] Comment on above: The validity of the calculated GFR & GFRAA in patients over 70 years has not been determined. Clinical correlation is essential. Serum or plasma urea nitroge n measurement (mass/volume)Ordered By: Dr. Morgan on 12-27-2022 Urea nitrogen [Mass/Vol] 11 mg/dL 7-18 [facility] Squamous epithelial cells de tection in urine sediment by light microscopyOrdered By: Dr. Morgan on 12-27-2022 Epithelial cells.squamous LM Ql (Urine sed) 0-5 SEEN /hpf 0-5 [facility] Thin prep Papanicolaou smear with manual screeningOrdered By: Dr. Morgan on 12-27-2022 Thin prep Papanicolaou smear with manual screening 8 U/L 15-37 [facility] Thin prep Papanicolaou smear with manual screening 7 5-15 [facility] Urine blood detectionOrdered By: Dr. Morgan on 12-27-2022 RBC Ql (U) Negative Negative [facility] RBC Ql (U) 0 SEEN /hpf 0-5 [facility] Urine clarityOrdered By: Dr. Morgan on 12-27-2022 Clarity (U) Sl. Cloudy Clear [facility] Urine color determinationOrd ered By: Dr. Morgan on 12-27-2022 Color (U) Yellow Yellow [facility] Urine glucose detectionOrder ed By: Dr. Morgan on 12-27-2022 Glucose Ql (U) Normal mg/dl Normal [facility] Urine leukocyte esterase det ection by dipstickOrdered By: Dr. Morgan on 12-27-2022 Leukocyte esterase Test strip Ql (U) 25 /ul Negative [facility] Urine pHOrdered By: Dr. Meme holcomb on 12-27-2022 pH (U) 7.0 [pH] 5.0 - 8.0 [facility] Urine sediment bacteria coun t by microscopy (number/high power field)Ordered By: Dr. Morgan on 12-27-2022 Bacteria LM.HPF (Urine sed) [#/Area] 0 /[HPF] None Seen [facility] Urine specific gravity measu rementOrdered By: Dr. Morgan on 12-27-2022 Specific gravity (U) [Rel density] 1.010 1.002-1.03 0 [facility] Urobilinogen Auto test strip Ql (U)Ordered By: Dr. Morgan on 12-27-2022 Urobilinogen Ql (U) Normal mg/dl Normal [facility] Basophil percentageOrdered B y: Dr. Barth on 10-12-2022 Chloride [Moles/Vol] 105 mmol/L 98-107 [facility] Glucose [Mass/Vol] 187 mg/dL 74-106 [facility] Comment on above: Fasting Glucose resu lt greater than or equal to 126 mg/dL suggests DIABETES MELLITUS per A.D.A. criteria. Potassium [Moles/Vol] 3.8 mmol/L 3.5-5.1 [facility] Sodium [Moles/Vol] 139 mmol/L 136-145 [facility] WBC (Bld) [#/Vol] 7.0 10*3/uL 4.4-11.0 [facility] Blood erythrocytes count (nu mber/volume)Ordered By: Dr. Barth on 10-12-2022 RBC (Bld) [#/Vol] 4.22 10*6/uL 4.6-6.2 [facility] Blood hemoglobin measurement (mass/volume)Ordered By: Dr. Barth on 10-12-2022 Hemoglobin (Bld) [Mass/Vol] 12.9 g/dL 13.0-16.5 [facility] Blood platelet mean volumeOr dered By: Dr. Barth on 10-12-2022 Platelet mean volume (Bld) [Entitic vol] 11.9 fL 6.2-12.0 [facility] Determination of erythrocyte mean corpuscular volume (MCV)Ordered By: Dr. Barth on 10-12-2022 MCV (RBC) [Entitic vol] 92.7 fL 80-94 [facility] Hematocrit Auto (Bld) [Volum e fraction]Ordered By: Dr. Barth on 10-12-2022 Hematocrit (Bld) [Volume fraction] 39.1 % 40-54 [facility] Laboratory - Chemistry and C hemistry - challengeOrdered By: Dr. Barth on 10-12-2022 CO2 [Moles/Vol] 30.0 mmol/L 21.0-32.0 [facility] Urea nitrogen/Creatinine [Mass ratio] 9.9 mg/mg 10-20 [facility] Laboratory - Hematology and Cell countsOrdered By: Dr. Barth on 10-12-2022 Erythrocyte distribution width (RBC) [Entitic vol] 47.6 fL 35.1-43.9 [facility] Erythrocyte distribution width (RBC) [Ratio] 13.9 % 11.6-14.6 [facility] MCH (RBC) [Entitic mass] 30.6 pg 27.0-32.0 [facility] MCHC Auto (RBC) [Mass/Vol]Or dered By: Dr. Barth on 10-12-2022 MCHC (RBC) [Mass/Vol] 33.0 g/dL 32-36 [facility] No Panel InformationOrdered By: Dr. Barth on 10-12-2022 Estimated GFR (MDRD) Amer 90 mL/min >60 [facility] Comment on above: GFR Calc Estimated GFR (MDRD) Non-Af Amer 74 mL/min >60 [facility] Comment on above: Non- GFR Calc Platelets bldOrdered By: Dr. Barth on 10-12-2022 Platelets (Bld) [#/Vol] 200 10*3/uL 150-450 [facility] Serum or plasma calcium alfonso urement (mass/volume)Ordered By: Dr. Barth on 10-12-2022 Calcium [Mass/Vol] 8.9 mg/dL 8.5-10.1 [facility] Serum or plasma creatinine m easurement (mass/volume)Ordered By: Dr. Barth on 10-12-2022 Creatinine [Mass/Vol] 1.01 mg/dL 0.70-1.30 [facility] Comment on above: The validity of the calculated GFR & GFRAA in patients over 70 years has not been determined. Clinical correlation is essential. Serum or plasma urea nitroge n measurement (mass/volume)Ordered By: Dr. Barth on 10-12-2022 Urea nitrogen [Mass/Vol] 10 mg/dL 7-18 [facility] Thin prep Papanicolaou smear with manual screeningOrdered By: Dr. Barth on 10-12-2022 Thin prep Papanicolaou smear with manual screening 4 5-15 [facility] Basophil percentageon 2021 Chloride [Moles/Vol] 105 mmol/L 98-107 [facility] Work Phone: Glucose [Mass/Vol] 104 mg/dL 74-106 [facility] Work Phone: Comment on above: Fasting Glucose resu lt from 100 to 125 mg/dL suggests IMPAIRED HOMEOSTASIS per A.D.A. criteria. Potassium [Moles/Vol] 4.1 mmol/L 3.5-5.1 [facility] Work Phone: Sodium [Moles/Vol] 139 mmol/L 136-145 [facility] Work Phone: WBC (Bld) [#/Vol] 5.7 10*3/uL 4.4-11.0 [facility] Work Phone: Blood erythrocytes count (nu mber/volume)on 06-03-2022 RBC (Bld) [#/Vol] 3.87 10*6/uL 4.6-6.2 [facility] Work Phone: Blood hemoglobin measurement (mass/volume)on 06-03-2022 Hemoglobin (Bld) [Mass/Vol] 11.8 g/dL 13.0-16.5 [facility] Work Phone: Blood platelet mean volumeon 06-03-2022 Platelet mean volume (Bld) [Entitic vol] 11.2 fL 6.2-12.0 [facility] Work Phone: Determination of erythrocyte mean corpuscular volume (MCV)on 06-03-2022 MCV (RBC) [Entitic vol] 90.4 fL 80-94 [facility] Work Phone: Hematocrit Auto (Bld) [Volum e fraction]on 06-03-2022 Hematocrit (Bld) [Volume fraction] 35.0 % 40-54 [facility] Work Phone: Laboratory - Chemistry and C hemistry - challengeon 06-03-2022 CO2 [Moles/Vol] 28.0 mmol/L 21.0-32.0 [facility] Work Phone: Urea nitrogen/Creatinine [Mass ratio] 15.9 mg/mg 10-20 [facility] Work Phone: Laboratory - Hematology and Cell countson 06-03-2022 Erythrocyte distribution width (RBC) [Entitic vol] 47.1 fL 35.1-43.9 [facility] Work Phone: Erythrocyte distribution width (RBC) [Ratio] 14.3 % 11.6-14.6 [facility] Work Phone: MCH (RBC) [Entitic mass] 30.5 pg 27.0-32.0 [facility] Work Phone: MCHC Auto (RBC) [Mass/Vol]on 06-03-2022 MCHC (RBC) [Mass/Vol] 33.7 g/dL 32-36 [facility] Work Phone: No Panel Informationon 06-03 Estimated GFR (MDRD) Amer 84 mL/min >60 [facility] Work Phone: Comment on above: GFR Calc Estimated GFR (MDRD) Non-Af Amer 70 mL/min >60 [facility] Work Phone: Comment on above: Non- GFR Calc Platelets bldon 06-03-2022 Platelets (Bld) [#/Vol] 180 10*3/uL 150-450 [facility] Work Phone: Serum or plasma calcium alfonso urement (mass/volume)on 06-03-2022 Calcium [Mass/Vol] 9.1 mg/dL 8.5-10.1 [facility] Work Phone: Serum or plasma creatinine m easurement (mass/volume)on 06-03-2022 Creatinine [Mass/Vol] 1.07 mg/dL 0.70-1.30 [facility] Work Phone: Comment on above: The validity of the calculated GFR & GFRAA in patients over 70 years has not been determined. Clinical correlation is essential. Serum or plasma urea nitroge n measurement (mass/volume)on 06-03-2022 Urea nitrogen [Mass/Vol] 17 mg/dL 7-18 [facility] Work Phone: Thin prep Papanicolaou smear with manual screeningon 06-03-2022 Thin prep Papanicolaou smear with manual screening 6 5-15 [facility] Work Phone: Absolute lymphocyte counton 03-05-2022 Lymphocytes Auto (Unsp spec) [#/Vol] 2.16 10*3/uL 0.83-4.51 [facility] Work Phone: Basophil percentageon 2021 Basophils/100 WBC (Bld) 0.6 % 0-1 [facility] Work Phone: Chloride [Moles/Vol] 103 mmol/L 98-107 [facility] Work Phone: Eosinophils/100 WBC (Bld) 5.9 % 0-5 [facility] Work Phone: Glucose [Mass/Vol] 110 mg/dL 74-106 [facility] Work Phone: Comment on above: Fasting Glucose resu lt from 100 to 125 mg/dL suggests IMPAIRED HOMEOSTASIS per A.D.A. criteria. Neutrophils (Bld) [#/Vol] 3.8 10*3/uL 2.0-7.7 [facility] Work Phone: Neutrophils/100 WBC (Bld) 54.3 % 47-70 [facility] Work Phone: [phone] Potassium [Moles/Vol] 3.6 mmol/L 3.5-5.1 [facility] Work Phone: Sodium [Moles/Vol] 139 mmol/L 136-145 [facility] Work Phone: WBC (Bld) [#/Vol] 6.9 10*3/uL 4.4-11.0 [facility] Work Phone: Blood erythrocytes count (nu mber/volume)on 03-05-2022 RBC (Bld) [#/Vol] 3.99 10*6/uL 4.6-6.2 [facility] [facility] Work Phone: Blood hemoglobin measurement (mass/volume)on 03-05-2022 Hemoglobin (Bld) [Mass/Vol] 11.9 g/dL 13.0-16.5 [facility] Work Phone: Blood lymphocytes/100 leukoc yteson 03-05-2022 Lymphocytes/100 WBC (Bld) 31.1 % 19-41 [facility] Work Phone: Blood monocytes/100 leukocyt eson 03-05-2022 Monocytes/100 WBC (Bld) 7.8 % 0-10 [facility] Work Phone: Blood platelet mean volumeon 03-05-2022 Platelet mean volume (Bld) [Entitic vol] 11.5 fL 6.2-12.0 [facility] Work Phone: Determination of erythrocyte mean corpuscular volume (MCV)on 03-05-2022 MCV (RBC) [Entitic vol] 92.0 fL 80-94 [facility] Work Phone: Hematocrit Auto (Bld) [Volum e fraction]on 03-05-2022 Hematocrit (Bld) [Volume fraction] 36.7 % 40-54 [facility] Work Phone: Laboratory - Chemistry and C hemistry - challengeon 03-05-2022 CO2 [Moles/Vol] 30.0 mmol/L 21.0-32.0 [facility] Work Phone: Natriuretic peptide B (Bld) [Mass/Vol] 225.2 pg/mL 0-100 [facility] Work Phone: Urea nitrogen/Creatinine [Mass ratio] 11.4 mg/mg 10-20 [facility] Work Phone: Laboratory - Hematology and Cell countson 03-05-2022 Erythrocyte distribution width (RBC) [Entitic vol] 48.4 fL 35.1-43.9 [facility] Work Phone: Erythrocyte distribution width (RBC) [Ratio] 14.3 % 11.6-14.6 [facility] Work Phone: Immature granulocytes/100 WBC (Bld) 0.300 % 0.0-0.9 [facility] Work Phone: Comment on above: IG% - Immature Granu locytes (promyelocytes, myelocytes and metamyelocytes) > 1% indicates that a LEFT SHIFT is Present. MCH (RBC) [Entitic mass] 29.8 pg 27.0-32.0 [facility] Work Phone: Nucleated RBC/100 WBC (Bld) [Ratio] 0 % 0-5 [facility] Work Phone: MCHC Auto (RBC) [Mass/Vol]on 03-05-2022 MCHC (RBC) [Mass/Vol] 32.4 g/dL 32-36 [facility] Work Phone: No Panel Informationon 03-05 Estimated GFR (MDRD) Amer 95 mL/min >60 [facility] Work Phone: Comment on above: GFR Calc Estimated GFR (MDRD) Non-Af Amer 79 mL/min >60 [facility] Work Phone: Comment on above: Non- GFR Calc Platelets bldon 03-05-2022 Platelets (Bld) [#/Vol] 199 10*3/uL 150-450 [facility] Work Phone: Serum or plasma calcium alfonso urement (mass/volume)on 03-05-2022 Calcium [Mass/Vol] 8.3 mg/dL 8.5-10.1 [facility] Work Phone: Serum or plasma creatinine m easurement (mass/volume)on 03-05-2022 Creatinine [Mass/Vol] 0.96 mg/dL 0.70-1.30 [facility] Work Phone: Comment on above: The validity of the calculated GFR & GFRAA in patients over 70 years has not been determined. Clinical correlation is essential. Serum or plasma urea nitroge n measurement (mass/volume)on 03-05-2022 Urea nitrogen [Mass/Vol] 11 mg/dL 7-18 [facility] Work Phone: Thin prep Papanicolaou smear with manual screeningon 03-05-2022 Thin prep Papanicolaou smear with manual screening 6 5-15 [facility] Work Phone: No Panel Informationon 02-03 Prostate Specific Antigen Total 13.50 ng/mL 0.0-4.0 [facility] Work Phone: Comment on above: This test was perfor med using the TPSA assay method for [facility] chemistry system. Values obtained with differentassay methods cannot be used interchangably.When changing PSA assays in the course of monitoring apatient, additional sequential testing should be carriedout to confirm baseline values. Absolute lymphocyte counton 10-16-2021 Lymphocytes Auto (Unsp spec) [#/Vol] 2.15 10*3/uL 0.83-4.51 [facility] Work Phone: Basophil percentageon 2020 Chloride [Moles/Vol] 104 mmol/L 98-107 [facility] Work Phone: Eosinophils/100 WBC (Bld) 7.8 % 0-5 [facility] Work Phone: Glucose [Mass/Vol] 104 mg/dL 74-106 [facility] Work Phone: Comment on above: Fasting Glucose resu lt from 100 to 125 mg/dL suggests IMPAIRED HOMEOSTASIS per A.D.A. criteria.Please note revised GLUCOSE reference range effective 2017. Neutrophils (Bld) [#/Vol] 4.4 10*3/uL 2.0-7.7 [facility] Work Phone: Potassium [Moles/Vol] 3.8 mmol/L 3.5-5.1 [facility]: [phone] Sodium [Moles/Vol] 139 mmol/L 136-145 [facility]: WBC (Bld) [#/Vol] 7.8 10*3/uL 4.4-11.0 [facility] Work Phone: Blood erythrocytes count (nu mber/volume)on 10-16-2021 RBC (Bld) [#/Vol] 4.17 10*6/uL 4.6-6.2 [facility] Work Phone: Blood hemoglobin measurement (mass/volume)on 10-16-2021 Hemoglobin (Bld) [Mass/Vol] 12.5 g/dL 13.0-16.5 [facility] Work Phone: Blood lymphocytes/100 leukoc yteson 10-16-2021 Lymphocytes/100 WBC (Bld) 27.4 % 19-41 [facility] Work Phone: Blood monocytes/100 leukocyt eson 10-16-2021 Monocytes/100 WBC (Bld) 8.4 % 0-10 [facility] Work Phone: [phone] Blood platelet mean volumeon 10-16-2021 Platelet mean volume (Bld) [Entitic vol] 10.8 fL 6.2-12.0 [facility] Work Phone: [phone] Determination of erythrocyte mean corpuscular volume (MCV)on 10-16-2021 MCV (RBC) [Entitic vol] 92.1 fL 80-94 [facility] Work Phone: Hematocrit Auto (Bld) [Volum e fraction]on 10-16-2021 Hematocrit (Bld) [Volume fraction] 38.4 % 40-54 [facility] Work Phone: Laboratory - Chemistry and C hemistry - challengeon 10-16-2021 CO2 [Moles/Vol] 28.0 mmol/L 21.0-32.0 [facility] Work Phone: Urea nitrogen/Creatinine [Mass ratio] 16.6 mg/mg 10-20 [facility] Work Phone: Laboratory - Hematology and Cell countson 10-16-2021 Basophils/100 WBC (Unsp spec) 0.6 % 0-1 [facility] Work Phone: Erythrocyte distribution width (RBC) [Entitic vol] 48.0 fL 35.1-43.9 [facility] Work Phone: Erythrocyte distribution width (RBC) [Ratio] 14.3 % 11.6-14.6 [facility] Work Phone: Immature granulocytes/100 WBC (Bld) 0.100 % 0.0-0.9 [facility] Work Phone: Comment on above: IG% - Immature Granu locytes (promyelocytes, myelocytes and metamyelocytes) > 1% indicates that a LEFT SHIFT is Present. MCH (RBC) [Entitic mass] 30.0 pg 27.0-32.0 [facility] Work Phone: Neutrophils/100 WBC (Bld) 55.7 % 47-70 [facility] Work Phone: Nucleated RBC/100 WBC (Bld) [Ratio] 0 % 0-5 [facility] Work Phone: MCHC Auto (RBC) [Mass/Vol]on 10-16-2021 MCHC (RBC) [Mass/Vol] 32.6 g/dL 32-36 [facility] Work Phone: No Panel Informationon 10-16 Estimated GFR (MDRD) Amer 111 mL/min >60 [facility] Work Phone: Comment on above: GFR Calc Estimated GFR (MDRD) Non-Af Amer 92 mL/min >60 [facility] Work Phone: Comment on above: Non- GFR Calc Prostate Specific Antigen Total 20.20 ng/mL 0.0-4.0 [facility] Work Phone: Comment on above: This test was perfor med using the TPSA assay method for [facility]. Values obtained with differentassay methods cannot be used interchangably.When changing PSA assays in the course of monitoring apatient, additional sequential testing should be carriedout to confirm baseline values. Platelets bldon 10-16-2021 Platelets (Bld) [#/Vol] 247 10*3/uL 150-450 [facility] Work Phone: Serum or plasma calcium alfonso urement (mass/volume)on 10-16-2021 Calcium [Mass/Vol] 9.1 mg/dL 8.5-10.1 [facility] Work Phone: Serum or plasma creatinine m easurement (mass/volume)on 10-16-2021 Creatinine [Mass/Vol] 0.84 mg/dL 0.70-1.30 [facility] Work Phone: Comment on above: The validity of the calculated GFR & GFRAA in patients over 70 years has not been determined. Clinical correlation is essential. Serum or plasma thyroperoxid ase antibody assay (units/volume)on 10-16-2021 TPO Ab Qn [IU]/mL [facility] Work Phone: Comment on above: Performed at: [place] [id number] Director: Toi Ponce PhD, Phone: [phone] Serum or plasma urea nitroge n measurement (mass/volume)on 10-16-2021 Urea nitrogen [Mass/Vol] 14 mg/dL -18 [facility] Work Phone: Thin prep Papanicolaou smear with manual screeningon 10-16-2021 Thin prep Papanicolaou smear with manual screening 7 03-15 [facility] Work Phone: Lab Report: Basic Metabolic Profile (BMP)on 10-28-2017 Anion gap [Moles/Vol] 8 mmol/L Invalid Interpretation Code 03-15 [facility] Work Phone: [phone] Calcium [Mass/Vol] 8.8 mg/dL Invalid Interpretation Code 8.5-10.1 [employer] Work Phone: [phone] Chloride [Moles/Vol] 102 mmol/L Invalid Interpretation Code 98-107 [employer] Work Phone: [phone] CO2 (BldV) [Partial pressure] 29.0 mmol/L Invalid Interpretation Code 21.0-32.0 [employer] Work Phone: [phone] Creatinine [Mass/Vol] 1.06 mg/dL Invalid Interpretation Code 0.70-1.30 [employer] Work Phone: [phone] GFR/1.73 sq M.predicted among non-blacks MDRD (S/P/Bld) [Vol rate/Area] 71 mL/min/{1.73_m2} Invalid Interpretation Code >60 [employer] Phone: [phone] Glomerular Filtration rate 86 mL/min Invalid Interpretation Code >60 [employer] Work Phone: [phone] Glucose [Mass/Vol] 101 mg/dL Invalid Interpretation Code 70-110 [employer] Phone: [phone] Potassium [Moles/Vol] 3.6 mmol/L Invalid Interpretation Code 3.5-5.1 [employer] Work Phone: [phone] Sodium [Moles/Vol] 139 mmol/L Invalid Interpretation Code 136-145 [employer] Work Phone: [phone] Urea nitrogen [Mass/Vol] 18 mg/dL Invalid Interpretation Code 7-18 [employer] Work Phone: [phone] Urea nitrogen/Creatinine [Mass ratio] 17.4453540 mg/mg Invalid Interpretation Code 10-20 [employer] Work Phone: [phone] [facility] lead advisory Device on Alert for early battery depletion. Pt refuses remote monitoring system at this time. 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 Left ventricular Ejection fraction 40 % Invalid Interpretation Code [employer] Work Phone: [phone] Office Visiton 05-24-2017 Documentation of current medications (procedure) Done Invalid Interpretation Code [employer] Work Phone: [phone] Office Visiton 04-12-2017 Fall risk assessment No Invalid Interpretation Code [employer] Work Phone: [phone] Lab Report: BNP,B-Type NATRI URETIC PEPTIDEon 10-09-2016 Natriuretic peptide B (Bld) [Mass/Vol] 134.5 pg/mL High 0-100 [employer] Work Phone: [phone] Lab Report: Basic Metabolic Profile (BMP)on 10-09-2016 Anion gap 6 mmol/L Invalid Interpretation Code 5-15 [employer] Work Phone: [phone] Anion gap [Moles/Vol] 6 mmol/L Invalid Interpretation Code 5-15 [employer] Work Phone: [phone] BUN/Creatinine Ratio 14.8 RATIO Invalid Interpretation Code 10-20 [employer] Work Phone: [phone] Calcium [Mass/Vol] 8.8 mg/dL Invalid Interpretation Code 8.5-10.1 [employer] Work Phone: [phone] Chloride [Moles/Vol] 103 mmol/L Invalid Interpretation Code 98-107 [employer] Work Phone: [phone] CO2 32.0 mmol/L Invalid Interpretation Code 21.0-32.0 [employer] Work Phone: [phone] CO2 (BldV) [Partial pressure] 32.0 mmol/L Invalid Interpretation Code 21.0-32.0 [employer] Work Phone: [phone] Creatinine [Mass/Vol] 1.22 mg/dL Invalid Interpretation Code 0.70-1.30 [employer] Work Phone: [phone] eGFR (non-black) 73 mL/min/{1.73_m2} Invalid Interpretation Code >60 [employer] Work Phone: [phone] GFR/1.73 sq M.predicted among non-blacks MDRD (S/P/Bld) [Vol rate/Area] 61 mL/min/{1.73_m2} Invalid Interpretation Code >60 [employer] Work Phone: [phone] Glomerular Filtration rate 73 mL/min Invalid Interpretation Code >60 [facility] Work Phone: [phone] Glucose [Mass/Vol] 102 mg/dL Invalid Interpretation Code 70-110 [facility] Work Phone: [phone] Potassium [Moles/Vol] 3.9 mmol/L Invalid Interpretation Code 3.5-5.1 [facility] Work Phone: [phone] Sodium [Moles/Vol] 141 mmol/L Invalid Interpretation Code 136-145 [facility] Work Phone: [phone] Urea nitrogen [Mass/Vol] 18 mg/dL Invalid Interpretation Code 7-18 [facility] Work Phone: [phone] Urea nitrogen/Creatinine [Mass ratio] 14.1205667 mg/mg Invalid Interpretation Code 10-20 [facility] Work Phone: [phone] Lab Report: CBC W/Diff, Auto matedon 10-09-2016 Absolute Neut 2.3 X10 3/UL Invalid Interpretation Code 2.0-7.7 [facility] Work Phone: [phone] Basophils/100 WBC (Bld) 0.4 % Invalid Interpretation Code 0-1 [facility] Work Phone: [phone] Basophils/100 WBC Auto (Bld) 0.4 % Invalid Interpretation Code 0-1 [facility] Work Phone: [phone] Eosinophils/100 leukocytes 5.8 % High 0-5 [facility] Work Phone: [phone] Eosinophils/100 WBC (Bld) 5.8 % High 0-5 [facility] Work Phone: [phone] Erythrocyte distribution width (RBC) [Ratio] 14.2 % Invalid Interpretation Code 11.6-14.6 [facility] Work Phone: [phone] Erythrocyte distribution width Auto Ratio (RBC) 14.2 % Invalid Interpretation Code 11.6-14.6 [facility] Work Phone: [phone] Erythrocytes (RBC) 4.41 10*6/uL Low 4.6-6.[address] [facility] Work Phone: [phone] Hematocrit (Bld) [Volume fraction] 40.5 % Invalid Interpretation Code 40-54 [employer] Work Phone: Hematocrit (HCT) 40.5 % Invalid Interpretation Code 40-54 [employer] Work Phone: Hemoglobin (Bld) [Mass/Vol] 13.4 g/dL Invalid Interpretation Code 13.0-16.5 [employer] Work Phone: Immature granulocytes/100 WBC (Bld) 0.200 % Invalid Interpretation Code 0.0-0.9 [employer] Work Phone: Lymphocytes 1.60 X10 3/UL Invalid Interpretation Code 0.83-4.51 [employer] [facility] Work Phone: Lymphocytes (Bld) [#/Vol] 1.60 X10 3/UL Invalid Interpretation Code 0.83-4.51 [employer] Work Phone: Lymphocytes/100 leukocytes 34.6 % Invalid Interpretation Code 19-41 [employer] Work Phone: Lymphocytes/100 WBC (Bld) 34.6 % Invalid Interpretation Code 19-41 [employer] Work Phone: MCH 30.4 pg Invalid Interpretation Code 27.0-32.0 [employer] Work Phone: MCH (RBC) [Entitic mass] 30.4 pg Invalid Interpretation Code 27.0-32.0 [employer] Work Phone: MCHC mass conc (RBC) 33.1 G/GL Invalid Interpretation Code 32-36 [employer] [facility] Work Phone: MCV 91.8 fL Invalid Interpretation Code 80-94 [employer] Work Phone: MCV (RBC) [Entitic vol] 91.8 fL Invalid Interpretation Code 80-94 [employer] Work Phone: mean corpuscular hemoglobin concentration, RBC 33.1 G/GL Invalid Interpretation Code 32-36 [employer] Work Phone: Monocytes/100 leukocytes 9.5 % Invalid Interpretation Code 0-10 [employer] Work Phone: Monocytes/100 WBC (Bld) 9.5 % Invalid Interpretation Code 0-10 [facility] Work Phone: [phone] neutrophil count, blood 2.3 X10 3/UL Invalid Interpretation Code 2.0-7.7 [facility] Work Phone: Neutrophils/100 WBC (Bld) 49.5 % Invalid Interpretation Code 47-70 [facility] Work Phone: Neutrophils/100 WBC Auto (Bld) 49.5 % Invalid Interpretation Code 47-70 [facility] Work Phone: Platelet mean volume (Bld) [Entitic vol] 11.6 fL Invalid Interpretation Code 6.2-12.0 [facility] Work Phone: [phone] Platelets 170 10*3/mm3 Invalid Interpretation Code 150-450 [facility] Work Phone: Platelets (Bld) [#/Vol] 170 10*3/uL Invalid Interpretation Code 150-450 [facility] Work Phone: [phone] PMV by Armando 11.6 fL Invalid Interpretation Code 6.2-12.0 [facility] Work Phone: RBC (Bld) [#/Vol] 4.41 10*6/uL Low 4.6-6.2 [facility] Work Phone: RDW SD 47.8 fL High 35.1-43.9 [facility] Work Phone: red blood cell distribution width, size density 47.8 fL High 35.1-43.9 [facility] Work Phone: WBC (Bld) [#/Vol] 4.6 10*3/uL Invalid Interpretation Code 4.4-11.0 [facility] Work Phone: WBC (Leukocytes) 4.6 10*3/uL Invalid Interpretation Code 4.4-11.0 [facility] Work Phone: Lab Report: T4 Total, Thyrox inon 10-09-2016 T4 [Mass/Vol] 9.1 ug/dL Invalid Interpretation Code 4.5-12.1 [facility] Work Phone: [phone] Lab Report: Thyroid Stim Hor fernanda (TSH)on 10-09-2016 Thyroid stimulating hormone (TSH) 0.98 u[iU]/mL Invalid Interpretation Code 0.358-3.74 [employer] Work Phone: [phone] TSH Qn 0.98 m[IU]/L Invalid Interpretation Code 0.358-3.74 [employer] Work Phone: [phone] Clinical Lists Update: 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 10-08-2016 Left ventricular Ejection fraction 35 % Invalid Interpretation Code [employer] Work Phone: [phone] Lab Report: Prothrombin Time w/INRon 04-08-2016 INR Coag (PPP) [Relative time] 1.1 {INR} Invalid Interpretation Code [employer] Work Phone: [phone] Prothrombin time (PT) Coag time (PPP) 13.4 s Invalid Interpretation Code 11.7-14.9 [employer] Work Phone: [phone] PT Coag (PPP) [Time] 13.651288286 s Invalid Interpretation Code 11.7-14.9 [employer] Work Phone: [phone] Lab Report: Urinalysis, Rout ine (Dipstick)on 04-08-2016 Albumin Ql (U) 15 High Negative [employer] Work Phone: [phone] Bilirubin Ql (U) Negative Invalid Interpretation Code Negative [employer] Work Phone: [phone] Bilirubin Ql (U) Negative Invalid Interpretation Code Negative [employer] Work Phone: [phone] Clarity (U) Clear Invalid Interpretation Code Clear [employer] Work Phone: [phone] Color (U) Yellow Invalid Interpretation Code Yellow [employer] Work Phone: [phone] Glucose Ql (U) 100 mg/dL High Normal [employer] Work Phone: [phone] Ketones (U) [Mass/Vol] Negative Invalid Interpretation Code Negative [employer] Work Phone: [phone] Leukocyte esterase Test strip Ql (U) Negative Invalid Interpretation Code Negative [employer] Work Phone: [phone] NITRITE UR Negative Invalid Interpretation Code Negative [employer] Work Phone: [phone] Occult Blood, urine Negative Invalid Interpretation Code Negative [employer] Work Phone: [phone] OCCULT BLOOD-UR Negative Invalid Interpretation Code Negative [employer] Work Phone: [phone] pH (U) 5.0 [pH] Invalid Interpretation Code 5.0 - 8.0 [employer] Work Phone: [phone] Specific gravity Refractometry (U) [Rel density] 1.025 Invalid Interpretation Code 1.002-1.03 0 [employer] Work Phone: [phone] Urine, ketones presence Negative Invalid Interpretation Code Negative [employer] Work Phone: [phone] Urine, leukocyte esterase presence Negative Invalid Interpretation Code Negative [employer] Work Phone: [phone] Urine, pH 5.0 [pH] Invalid Interpretation Code 5.0 - 8.0 [employer] Work Phone: [phone] Urine, protein 15 mg/dL High Negative [employer] Work Phone: [phone] UROBILI Normal mg/dl Invalid Interpretation Code Normal [employer] Work Phone: [phone] Office Visiton 04-08-2016 Tobacco smoking status Tobacco smoking s tatus NHIS Invalid Interpretation Code [employer] Work Phone: [phone] Tobacco use status [facility] Never smoker Invalid Interpretation Code [employer] Work Phone: [phone] Replaced Document: Brent E CG Observationson 04-08-2016 EKG QRS axis -22 deg Invalid Interpretation Code [employer] Work Phone: [phone] electrocardiogram interpretation Sinus Bradycardia - Nonspecific T-abnormality. ABNORMAL Invalid Interpretation Code [employer] Work Phone: [phone] GE use only - for [employer] import when terms are not otherwise specified 440 ms Invalid Interpretation Code [employer] Work Phone: [phone] Heart rate 52 /min Invalid Interpretation Code [employer] Work Phone: [phone] Interpretation Sinus Bradycardia - Nonspecific T-abnormality. ABNORMAL Invalid Interpretation Code [employer] Work Phone: [phone] P Ashley 25 deg Invalid Interpretation Code [employer] Work Phone: [phone] P wave axis, electrocardiogram 25 deg Invalid Interpretation Code [employer] Work Phone: [phone] AZ Interval 174 ms Invalid Interpretation Code [employer] Work Phone: [phone] AZ interval, electrocardiogram 174 ms Invalid Interpretation Code [employer] Work Phone: [phone] QRS axis, electrocardiogram -22 deg Invalid Interpretation Code [employer] Work Phone: [phone] QRS Duration 108 ms Invalid Interpretation Code [employer] Work Phone: [phone] QRS duration, electrocardiogram 108 ms Invalid Interpretation Code [employer] Work Phone: [phone] QT Interval new path ms Invalid Interpretation Code [employer] Work Phone: [phone] QT interval, electrocardiogram new path ms Invalid Interpretation Code [employer] Work Phone: [phone] QTc Serra 440 ms Invalid Interpretation Code [employer] Work Phone: [phone] T Ashley 90 deg Invalid Interpretation Code [employer] Work Phone: [phone] T wave axis, electrocardiogram 90 deg Invalid Interpretation Code [employer] Phone: [phone] Lab Report: Lipid Profileon 09-30-2015 Cholesterol [Mass/Vol] 107 mg/dL Invalid Interpretation Code [address] [employer] Phone: [phone] Cholesterol in HDL [Mass/Vol] 45 mg/dL Invalid Interpretation Code [employer] [facility] Work Phone: [phone] Cholesterol in LDL [Mass/Vol] 42 mg/dL Invalid Interpretation Code 0-130 [employer] Work Phone: [phone] Lipoprotein.pre-beta [Mass/Vol] 20 mg/dL Invalid Interpretation Code 5-40 [employer] Work Phone: [phone] Triglyceride [Mass/Vol] 99 mg/dL Invalid Interpretation Code [employer] Work Phone: [phone] Lab Report: Liver Profileon 09-30-2015 Albumin [Mass/Vol] 4.0 g/dL Invalid Interpretation Code 3.4-5.0 [employer] Work Phone: [phone] Alkaline phosphatase (ALP) 59 U/L Invalid Interpretation Code 50-136 [facility] Work Phone: [phone] ALP (Bld) [Catalytic activity/Vol] 59 U/L Invalid Interpretation Code 50-136 [facility] Work Phone: [phone] ALT [Catalytic activity/Vol] 28 U/L Invalid Interpretation Code 12-78 [facility] Work Phone: [phone] AST [Catalytic activity/Vol] 20 U/L Invalid Interpretation Code 15-37 [facility] Work Phone: [phone] Bilirubin [Mass/Vol] 1.40 mg/dL High 0.20-1.[address] [facility] Work Phone: [phone] Bilirubin.direct [Mass/Vol] 0.30 mg/dL Invalid Interpretation Code 0.00-0.30 [facility] Work Phone: [phone] Globulin 3.2 g/dL Invalid Interpretation Code 2.3-3.5 [facility] Work Phone: [phone] Globulin (S) [Mass/Vol] 3.2 g/dL Invalid Interpretation Code 2.3-3.5 [facility] Work Phone: [phone] Protein [Mass/Vol] 7.2 g/dL Invalid Interpretation Code 6.4-8.2 [facility] Work Phone: [phone] Office Visit: [facility] 09-09-20 15 General cardiovascular disease 10Y risk [#] Grisel'Fernando Not enough information Invalid Interpretation Code [facility] Work Phone: [phone]) Lab Report: BNP,B-Type NATRI URETIC PEPTIDEon 11-14-2014 Natriuretic peptide B (Bld) [Mass/Vol] 86.4 pg/mL Invalid Interpretation Code 0-100 [facility] Work Phone: [phone] Lab Report: CBC W/Diff, Auto matedon 11-14-2014 Absolute Neut 2.7 X10 3/UL Invalid Interpretation Code 2.0-7.7 [facility] Work Phone: [phone] Absolute Neutrophil count 2.7 X10 3/UL Invalid Interpretation Code 2.0-7.7 [facility] Work Phone: [phone] Office Visit: [facility] 11-14-19 15 cardiac risk group C Invalid Interpretation Code [facility] Work Phone: Tobacco smoking status Never Invalid Interpretation Code [facility] Work Phone: Lab Report: MGon 08-12-2012 Magnesium [Mass/Vol] 2.0 mg/dL Normal 1.8-2.4 [facility] Work Phone: Replaced Document: Brent ROQUE Observationson 08-10-2012 Pulse (Heart Rate) 407 ms Invalid Interpretation Code [facility] Work Phone: QT interval/QT interval (corrected for heart rate), electrocardiogram 407 ms Invalid Interpretation Code [facility] Work Phone: Vital Signs Date Time Vital Sign Value Performing Clinician Facility 04-27-2025 23:07-0400 Body temperature 98.3 [degF] Dr. John Mckeon DO Work Phone: [facility] 04-27-2025 23:07-0400 Diastolic blood pressure 60 mm[Hg] Dr. John Mckeon DO Work Phone: [facility] 04-27-2025 23:07-0400 Heart rate 100 /min Dr. John Mckeon DO Work Phone: [facility] 04-27-2025 23:07-0400 Respiratory rate 18 /min Dr. John Mckeon DO Work Phone: [facility] 04-27-2025 23:07-0400 SaO2% (BldA) [Mass fraction] 97 % Dr. John Mckeon DO Work Phone: [facility] 04-27-2025 23:07-0400 Systolic blood pressure 146 mm[Hg] Dr. John Mckeon DO Work Phone: [facility] 04-27-2025 20:05-0400 Body height 160.[address] John Mckeon DO Work Phone: [facility] 04-27-2025 20:05-0400 Body mass index (BMI) [Ratio] 21.2 kg/m2 Dr. John Mckeon DO Work Phone: [facility] 04-27-2025 20:05-0400 Body weight 54.[address] John Mckeon DO Work Phone: [facility] 03-12-2025 07:30-0400 Body mass index (BMI) [Ratio] 20.7 kg/m2 Dr. John Mckeon DO Work Phone: [facility] 03-12-2025 07:30-0400 Body weight 53.[address] John Mckeon DO Work Phone: [facility] 03-12-2025 07:30-0400 Diastolic blood pressure 79 mm[Hg] Dr. John Mckeon DO Work Phone: [facility] 03-12-2025 07:30-0400 Heart rate 69 /min Dr. John Mckeon DO Work Phone: [facility] 03-12-2025 07:30-0400 Respiratory rate 18 /min Dr. John Mckeon DO Work Phone: [facility] 03-12-2025 07:30-0400 SaO2% (BldA) [Mass fraction] 97 % Dr. John Mckeon DO Work Phone: [facility] 03-12-2025 07:30-0400 Systolic blood pressure 139 mm[Hg] Dr. John Mckeon DO Work Phone: [facility] 02-26-2025 15:47-0400 Diastolic blood pressure 94 mm[Hg] Jian Jiménez MD MPH Work Phone: [facility] 02-26-2025 15:47-0400 Heart rate 72 /min Jian Jiménez MD MPH Work Phone: [facility] 02-26-2025 15:47-0400 Systolic blood pressure 162 mm[Hg] Jian Jiménez MD MPH Work Phone: [facility] 12-16-2024 17:23-0500 Body temperature 98.4 [degF] Dr. John Mckeon DO Work Phone: [facility] 12-16-2024 17:23-0500 Diastolic blood pressure 83 mm[Hg] Dr. John Mckeon DO Work Phone: [facility] 12-16-2024 17:23-0500 Heart rate 89 /min Dr. John Mckeon DO Work Phone: [facility] 12-16-2024 17:23-0500 Respiratory rate 17 /min Dr. John Mckeon DO Work Phone: [facility] 12-16-2024 17:23-0500 SaO2% (BldA) [Mass fraction] 96 % Dr. John Mckeon DO Work Phone: [facility] 12-16-2024 17:23-0500 Systolic blood pressure 146 mm[Hg] Dr. John Mckeon DO Work Phone: [facility] 12-16-2024 14:58-0500 Body height 160.[address] John Mckeon DO Work Phone: [facility] 12-16-2024 14:58-0500 Body mass index (BMI) [Ratio] 20 kg/m2 Dr. John Mckeon DO Work Phone: [facility] 12-16-2024 14:58-0500 Body weight 51.[address] John Mckeon DO Work Phone: [facility] 12-13-2024 15:40-0500 Body height 160 cm Urology Room [facility] 12-13-2024 15:40-0500 Body mass index (BMI) [Ratio] 20.55 kg/m2 Urology [facility] 12-13-2024 15:40-0500 Body weight 52.62 kg Urology [facility] 11-10-2024 10:58-0500 Body mass index (BMI) [Ratio] 21.4 kg/m2 Dr. John Mckeon DO Work Phone: [facility] 11-10-2024 10:58-0500 Body weight 54.[address] John Mckeon DO Work Phone: [facility] 11-10-2024 10:58-0500 Diastolic blood pressure 64 mm[Hg] Dr. John Mckeon DO Work Phone: [facility] 11-10-2024 10:58-0500 Heart rate 69 /min Dr. John Mckeon DO Work Phone: [facility] 11-10-2024 10:58-0500 Respiratory rate 16 /min Dr. John Mckeon DO Work Phone: [facility] 11-10-2024 10:58-0500 Systolic blood pressure 142 mm[Hg] Dr. John Mckeon DO Work Phone: [facility] 07-25-2024 13:00-0400 Diastolic blood pressure 61 mm[Hg] Asmita Zambrano MD Work Phone: [facility] 07-25-2024 13:00-0400 Heart rate 60 /min Asmita Zambrano MD Work Phone: [facility] 07-25-2024 13:00-0400 Respiratory rate 18 /min Asmita Zambrano MD Work Phone: [facility] 07-25-2024 13:00-0400 SaO2% (BldA) [Mass fraction] 96 % Asmita Zambrano MD Work Phone: [facility] 07-25-2024 13:00-0400 Systolic blood pressure 152 mm[Hg] Asmita Zambrano MD Work Phone: [facility] 07-25-2024 12:00-0400 Body temperature 97.5 [degF] Asmita Zambrano MD Work Phone: [facility] 07-25-2024 08:58-0400 Body height 160 cm Asmita Zambrano MD Work Phone: [facility] 07-25-2024 08:58-0400 Body mass index (BMI) [Ratio] 19.49 kg/m2 Asmita Zambrano MD Work Phone: [facility] 07-25-2024 08:58-0400 Body weight 49.9 kg Asmita Zambrano MD Work Phone: [phone](376)598-781784 [place] [address] 07-12-2024 15:25-0400 Body mass index (BMI) [Ratio] 18.95 kg/m2 Asmita Zambrano MD Work Phone: 4([phone])[phone] [place] [address] 07-12-2024 15:25-0400 Body weight 48.53 kg Asmita Zambrano MD Work Phone: 1(334)[phone] [place] [address] 07-12-2024 15:25-0400 Diastolic blood pressure 74 mm[Hg] Asmita Zambrano MD Work Phone: 4(441)582-052484 [place] [address] 07-12-2024 15:25-0400 Heart rate 68 /min Asmita Zambrano MD Work Phone: 4(637)765-350584 [place] [address] 07-12-2024 15:25-0400 Systolic blood pressure 143 mm[Hg] Asmita Zambrano MD Work Phone: 7(299)526-924984 [place] [address] 06-28-2024 13:36-0400 Body mass index (BMI) [Ratio] 18.6 kg/m2 Asmita Zambrano MD Work Phone: [facility] 06-28-2024 13:36-0400 Body weight 47.63 kg Asmita Zambrano MD Work Phone: [facility] 06-28-2024 13:36-0400 Diastolic blood pressure 80 mm[Hg] Asmita Zambrano MD Work Phone: [facility] 06-28-2024 13:36-0400 Heart rate 62 /min Asmita Zambrano MD Work Phone: 1(418)[phone] [place] [address] 06-28-2024 13:36-0400 Systolic blood pressure 167 mm[Hg] Asmita Zambrano MD Work Phone: 2(003)351-158984 [place] [address] 06-14-2024 13:14-0400 Body height 160 cm Asmita Zambrano MD Work Phone: [facility] 06-14-2024 13:14-0400 Body mass index (BMI) [Ratio] 18.6 kg/m2 Asmita Zambrano MD Work Phone: [facility] 06-14-2024 13:14-0400 Body weight 47.63 kg Asmita Zambrano MD Work Phone: [facility] 05-17-2024 13:17-0400 Body height 160 cm Asmita Zambrano MD Work Phone: [facility] 05-17-2024 13:17-0400 Body mass index (BMI) [Ratio] 20.02 kg/m2 Asmita Zambrano MD Work Phone: [facility] 05-17-2024 13:17-0400 Body weight 51.26 kg Asmita Zambrano MD Work Phone: [facility] 05-17-2024 13:17-0400 Respiratory rate 16 /min Asmita Zambrano MD Work Phone: [facility] 04-26-2024 13:58-0400 Body weight 50.8 kg Asmita Zambrano MD Work Phone: [facility] 04-26-2024 13:58-0400 Respiratory rate 16 /min Asmita Zambrano MD Work Phone: 6(352)[phone] [place] [address] 11-23-2023 14:19-0500 Body height 160.[address] John Mckeon Work Phone: [facility] 11-23-2023 14:19-0500 Body mass index (BMI) [Ratio] 21 kg/m2 Dr. John Mckeon Work Phone: [facility] 11-23-2023 14:19-0500 Body weight 53.[address] John Mckeon Work Phone: [facility] 11-23-2023 14:19-0500 Diastolic blood pressure 69 mm[Hg] Dr. John Mckeon Work Phone: [facility] 11-23-2023 14:19-0500 Heart rate 66 /min Dr. John Mckeon Work Phone: [facility] 11-23-2023 14:19-0500 Respiratory rate 18 /min Dr. John Mckeon Work Phone: [facility] 11-23-2023 14:19-0500 SaO2% (BldA) [Mass fraction] 99 % Dr. John Mckeon Work Phone: [facility] 11-23-2023 14:19-0500 Systolic blood pressure 128 mm[Hg] Dr. John Mckeon Work Phone: [facility] 10-22-2023 16:24-0500 Body temperature 98.4 [degF] Dr. John Mckeon Work Phone: [facility] 10-22-2023 16:24-0500 Diastolic blood pressure 60 mm[Hg] Dr. John Mckeon Work Phone: [facility] 10-22-2023 16:24-0500 Heart rate 64 /min Dr. John Mckeon Work Phone: [facility] 10-22-2023 16:24-0500 Respiratory rate 18 /min Dr. John Mckeon Work Phone: [facility] 10-22-2023 16:24-0500 SaO2% (BldA) [Mass fraction] 99 % Dr. John Mckeon Work Phone: [facility] 10-22-2023 16:24-0500 Systolic blood pressure 110 mm[Hg] Dr. John Mckeon Work Phone: [facility] 10-20-2023 16:00-0500 Body height 160.[address] John Mckeon Work Phone: [facility] 10-20-2023 16:00-0500 Body mass index (BMI) [Ratio] 20.7 kg/m2 Dr. John Mckeon Work Phone: [facility] 10-20-2023 16:00-0500 Body weight [address] John Mckeon Work Phone: [facility] 09-06-2023 14:09-0500 Body temperature 97.4 [degF] Dr. John Mckeon Work Phone: [facility] 09-06-2023 14:09-0500 Diastolic blood pressure 74 mm[Hg] Dr. John Mckeon Work Phone: [facility] 09-06-2023 14:09-0500 Heart rate 78 /min Dr. John Mckeon Work Phone: [facility] 09-06-2023 14:09-0500 Respiratory rate 18 /min Dr. John Mckeon Work Phone: [facility] 09-06-2023 14:09-0500 SaO2% (BldA) [Mass fraction] 95 % Dr. John Mckeon Work Phone: [facility] 09-06-2023 14:09-0500 Systolic blood pressure 139 mm[Hg] Dr. John Mckeon Work Phone: [facility] 09-06-2023 06:00-0500 Body mass index (BMI) [Ratio] 19.2 kg/m2 Dr. John Mckeon Work Phone: [facility] 09-06-2023 06:00-0500 Body weight 49.[address] John Mckeon Work Phone: [facility] 09-06-2023 04:00-0500 Body temperature 97.5 [degF] Dr. John Mckeon Work Phone: [facility] 09-06-2023 04:00-0500 Diastolic blood pressure 57 mm[Hg] Dr. John Mckeon Work Phone: [facility] 09-06-2023 04:00-0500 Heart rate 64 /min Dr. John Mckeon Work Phone: [facility] 09-06-2023 04:00-0500 Respiratory rate 16 /min Dr. John Mckeon Work Phone: [facility] 09-06-2023 04:00-0500 SaO2% (BldA) [Mass fraction] 97 % Dr. John Mckeon Work Phone: [facility] 09-06-2023 04:00-0500 Systolic blood pressure 118 mm[Hg] Dr. John Mckeon Work Phone: [facility] 09-05-2023 09:30-0500 Body height 160.[address] John Mckeon Work Phone: [facility] 09-04-2023 18:13-0400 Body temperature 98.2 [degF] Dr. John Mckeon Work Phone: [facility] 09-04-2023 18:13-0400 Diastolic blood pressure 76 mm[Hg] Dr. John Mckeon Work Phone: [facility] 09-04-2023 18:13-0400 Heart rate 82 /min Dr. John Mckeon Work Phone: [facility] 09-04-2023 18:13-0400 Respiratory rate 14 /min Dr. John Mckeon Work Phone: [facility] 09-04-2023 18:13-0400 SaO2% (BldA) [Mass fraction] 97 % Dr. John Mckeon Work Phone: [facility] 09-04-2023 18:13-0400 Systolic blood pressure 108 mm[Hg] Dr. John Mckeon Work Phone: [facility] 09-04-2023 15:20-0400 Body height 160.[address] John Mckeon Work Phone: [facility] 09-04-2023 15:20-0400 Body mass index (BMI) [Ratio] 19.9 kg/m2 Dr. John Mckeon Work Phone: [facility] 09-04-2023 15:20-0400 Body weight 51.[address] John Mckeon Work Phone: [facility] 06-17-2023 14:40-0400 Diastolic blood pressure 73 mm[Hg] Dr. John Mckeon Work Phone: [facility] 06-17-2023 14:40-0400 Heart rate 55 /min Dr. John Mckeon Work Phone: [facility] 06-17-2023 14:40-0400 Respiratory rate 16 /min Dr. John Mckeon Work Phone: [facility] 06-17-2023 14:40-0400 Systolic blood pressure 148 mm[Hg] Dr. John Mckeon Work Phone: [facility] 02-25-2023 14:39-0400 Body height 160.[address] John Mckeon Work Phone: [facility] 02-25-2023 14:39-0400 Body mass index (BMI) [Ratio] 30 kg/m2 Dr. John Mckeon Work Phone: [facility] 02-25-2023 14:39-0400 Body weight 76.[address] John Mckeon Work Phone: [facility] 02-25-2023 14:39-0400 Diastolic blood pressure 83 mm[Hg] Dr. John Mckeon Work Phone: [facility] 02-25-2023 14:39-0400 Heart rate 78 /min Dr. John Mckeon Work Phone: [facility] 02-25-2023 14:39-0400 Respiratory rate 18 /min Dr. John Mckeon Work Phone: [facility] 02-25-2023 14:39-0400 Systolic blood pressure 130 mm[Hg] Dr. John Mckeon Work Phone: [facility] 01-06-2023 12:03-0500 Diastolic blood pressure 51 mm[Hg] Dr. John Mckeon Work Phone: [facility] 01-06-2023 12:03-0500 Heart rate 76 /min Dr. John Mckeon Work Phone: [facility] 01-06-2023 12:03-0500 Respiratory rate 15 /min Dr. John Mckeon Work Phone: [facility] 01-06-2023 12:03-0500 SaO2% (BldA) [Mass fraction] 96 % Dr. John Mckeon Work Phone: [facility] 01-06-2023 12:03-0500 Systolic blood pressure 109 mm[Hg] Dr. John Mckeon Work Phone: [facility] 01-06-2023 08:51-0500 Body mass index (BMI) [Ratio] 21 kg/m2 Dr. John Mckeon Work Phone: [facility] 01-06-2023 08:51-0500 Body temperature 98.2 [degF] Dr. John Mckeon Work Phone: [facility] 01-06-2023 08:51-0500 Body weight 53.[address] John Mckeon Work Phone: [facility] 12-28-2022 00:08-0500 Diastolic blood pressure 77 mm[Hg] Dr. Shailesh Mancini Work Phone: [facility] 12-28-2022 00:08-0500 Heart rate 72 /min Dr. Shailesh Mancini Work Phone: [facility] 12-28-2022 00:08-0500 Respiratory rate 16 /min Dr. Shailesh Mancini Work Phone: [facility] 12-28-2022 00:08-0500 SaO2% (BldA) [Mass fraction] 98 % Dr. Shailesh Mancini Work Phone: [facility] 12-28-2022 00:08-0500 Systolic blood pressure 139 mm[Hg] Dr. Shailesh Mancini Work Phone: [facility] 12-27-2022 20:29-0500 Body height 160.[address] Shailesh Mancini Work Phone: [facility] 12-27-2022 20:29-0500 Body mass index (BMI) [Ratio] 20.5 kg/m2 Dr. Shailesh Mancini Work Phone: [facility] 12-27-2022 20:29-0500 Body temperature 97.1 [degF] Dr. Shailesh Mancini Work Phone: [facility] 12-27-2022 20:29-0500 Body weight 52.[address] Shailesh Mancini Work Phone: [facility] 10-21-2022 17:07-0500 Body temperature 97.9 [degF] Dr. Shailesh Mancini Work Phone: [facility] 10-21-2022 17:07-0500 Diastolic blood pressure 64 mm[Hg] Dr. Shailesh Mancini Work Phone: [facility] 10-21-2022 17:07-0500 Heart rate 83 /min Dr. Shailesh Mancini Work Phone: [facility] 10-21-2022 17:07-0500 Respiratory rate 16 /min Dr. Shailesh Mancini Work Phone: [facility] 10-21-2022 17:07-0500 SaO2% (BldA) [Mass fraction] 96 % Dr. Shailesh Mancini Work Phone: [facility] 10-21-2022 17:07-0500 Systolic blood pressure 121 mm[Hg] Dr. hSailesh Mancini Work Phone: [facility] 10-21-2022 11:02-0500 Body height 160.[address] Shailesh Mancini Work Phone: [facility] Work Phone: 10-21-2022 11:02-0500 Body mass index (BMI) [Ratio] 20.2 kg/m2 Dr. Shailesh Mancini Work Phone: [facility] 10-21-2022 11:02-0500 Body weight [address] Shailesh Mancini Work Phone: [facility] 08-05-2022 14:36-0400 Body height 160.[address] Shailesh Mancini Work Phone: [facility] Work Phone: 08-05-2022 14:36-0400 Body mass index (BMI) [Ratio] 20.2 kg/m2 Dr. Shailesh Mancini Work Phone: [facility] Work Phone: 08-05-2022 14:36-0400 Body weight 51.[address] Shailesh Mancini Work Phone: [facility] Work Phone: 08-05-2022 14:36-0400 Diastolic blood pressure 60 mm[Hg] Dr. Shailesh Mancini Work Phone: [facility] Work Phone: 08-05-2022 14:36-0400 Heart rate 64 /min Dr. Shailesh Mancini Work Phone: [facility] Work Phone: 08-05-2022 14:36-0400 Respiratory rate 18 /min Dr. Shailesh Mancini Work Phone: [facility] Work Phone: 08-05-2022 14:36-0400 Systolic blood pressure 98 mm[Hg] Dr. Shailesh Mancini Work Phone: [facility] Work Phone: 06-03-2022 15:34-0400 Diastolic blood pressure 42 mm[Hg] Shailesh Mancini [facility] Work Phone: 06-03-2022 15:34-0400 Heart rate 72 /min [facility] Work Phone: 06-03-2022 15:34-0400 Respiratory rate 20 /min [facility] Work Phone: 06-03-2022 15:34-0400 Systolic blood pressure 110 mm[Hg] [facility] Work Phone: 03-05-2022 14:27-0400 Body height 160.02 cm [facility] Work Phone: 03-05-2022 14:27-0400 Body mass index (BMI) [Ratio] 20.3 kg/m2 [facility] Work Phone: 03-05-2022 14:27-0400 Body weight 52.16 kg [facility] Work Phone: 03-05-2022 14:27-0400 Diastolic blood pressure 59 mm[Hg] [facility] Work Phone: 03-05-2022 14:27-0400 Heart rate 55 /min [facility] Work Phone: 03-05-2022 14:27-0400 Respiratory rate 12 /min [facility] Work Phone: 03-05-2022 14:27-0400 Systolic blood pressure 121 mm[Hg] [facility] Work Phone: 03-05-2022 14:27-0400 Body height 160.02 cm [facility] Work Phone: 03-05-2022 14:27-0400 Body mass index (BMI) [Ratio] 20.3 kg/m2 [facility] Work Phone: 03-05-2022 14:27-0400 Body weight 52.16 kg [facility] Work Phone: 03-05-2022 14:27-0400 Diastolic blood pressure 59 mm[Hg] [facility] Work Phone: 03-05-2022 14:27-0400 Heart rate 55 /min [facility] Work Phone: 03-05-2022 14:27-0400 Respiratory rate 12 /min [facility] Work Phone: 03-05-2022 14:27-0400 Systolic blood pressure 121 mm[Hg] [facility] Work Phone: 05-24-2017 11:35-0400 Body height 160.02 cm [facility] Work Phone: 05-24-2017 11:35-0400 Body mass index (BMI) [Ratio] 23.82 kg/m2 Maureen Forman [facility] Work Phone: 05-24-2017 11:35-0400 Body weight 61.01 kg Brunoradha [facility] Work Phone: 05-24-2017 11:35-0400 Diastolic blood pressure 58 mm[Hg] Maureen Forman [facility] Work Phone: 05-24-2017 11:35-0400 Heart rate 54 /min [facility] Work Phone: 05-24-2017 11:35-0400 Respiratory rate 20 /min [facility]ot[facility] Work Phone: 05-24-2017 11:35-0400 Systolic blood pressure 116 mm[Hg] Maureen Eliasz [facility] Work Phone: 05-24-2017 11:35-0400 Weight 61.01 kg Elsy Grubbs RN [facility] Work Phone: 04-12-2017 13:39-0400 Body height 160.02 cm Leonora Viveros [facility] Work Phone: 04-12-2017 13:39-0400 Body mass index (BMI) [Ratio] 23.45 kg/m2 Leonorajose alfredo [facility] Work Phone: 04-12-2017 13:39-0400 Body weight 60.06 kg Leonorajose alfredo [facility] Work Phone: 04-12-2017 13:39-0400 Diastolic blood pressure 50 mm[Hg] Leonora Felice [facility] Work Phone: 04-12-2017 13:39-0400 Heart rate 52 /min Leonora Felice [facility] Work Phone: 04-12-2017 13:39-0400 Respiratory rate 16 /min Leonorajose alfredo [facility] Work Phone: 04-12-2017 13:39-0400 Systolic blood pressure 110 mm[Hg] [facility] Work Phone: 04-12-2017 13:39-0400 Weight 60.06 kg Elsy Grubbs RN [facility] Work Phone: 10-09-2016 12:49-0500 Body mass index (BMI) [Ratio] 24.05 kg/m2 Elsy Grubbs RN [facility] Work Phone: 10-09-2016 12:49-0500 Body surface area Derived from formula 1.64 m2 [facility] Work Phone: 10-09-2016 12:49-0500 Body weight 61.6 kg [facility] Work Phone: 10-09-2016 12:49-0500 Diastolic blood pressure 72 mm[Hg] Elsy Grubbs RN [facility] Work Phone: 10-09-2016 12:49-0500 Heart rate 60 /min [facility] Work Phone: 10-09-2016 12:49-0500 Respiratory rate 16 /min [facility] Work Phone: 10-09-2016 12:49-0500 Systolic blood pressure 124 mm[Hg] Elsy Grubbs RN [facility] Work Phone: 11-14-2014 15:17-0500 Diastolic blood pressure 60 mm[Hg] [facility] Work Phone: 11-14-2014 15:17-0500 Heart rate 60 /min [facility] Work Phone: 11-14-2014 15:17-0500 Heart rate 64 /min [facility] Work Phone: 11-14-2014 15:17-0500 Systolic blood pressure 98 mm[Hg] [facility] Work Phone: 11-14-2014 15:17-0500 Systolic blood pressure 100 mm[Hg] [facility] Work Phone: 08-10-2012 12:42-0400 SaO2% (BldA) [Mass fraction] 99 % [facility] Work Phone: 05-02-2012 14:57-0400 Body height 160.02 cm [facility] Work Phone: 08-04-2010 11:15-0400 Body temperature 98.4 [degF] [facility] Work Phone: Encounters Encounter Date Encounter Type Care Provider Facility Start: 04-27-2025 End: 04-27-2025 Emergency department patient visit Dr. John Mckeon DO Work Phone: -Emergency Department Work Phone: Start: 04-25-[address] John Mckeon DO Work Phone: -Laboratory Work Phone: Start: 04-25-2025 ambulatory MARYURI ROMEOIN Facility:[facility] Start: 04-24-2025 End: 04-24-2025 Office outpatient visit 15 minutes Cheryl Adeel [place] [employer]-NEURORADIOLOGIST Work Phone: [facility] Comment on above: Prostate cancer (Mul ti) (Primary Dx); Urinary retention; Bladder spasm; Malignant neoplasm of prostate (Multi) Start: 04-24-2025 End: 04-24-2025 ambulatory [facility] Ambulatory Start: 04-09-2025 End: 04-09-2025 ambulatory [facility] Ambulatory Start: 03-12-2025 End: 03-12-2025 Patient encounter procedure Cynthia PRO -[facility] Work Phone: Start: 03-12-2025 End: 03-12-2025 ambulatory [facility] Facility[place] Start: 02-26-2025 End: 02-26-2025 Patient encounter procedure Jian Jiménez MD MPH Work Phone: [facility] Comment on above: Urinary retention Start: 02-26-2025 End: 02-26-2025 ambulatory [facility] Ambulatory Start: 02-05-2025 End: 02-05-[address] John Mckeon DO Work Phone: [facility] Work Phone: Start: 02-05-2025 End: 02-05-[address] John Mckeon DO -[facility] Start: 02-05-2025 End: 02-05-2025 ambulatory [facility] Facility:[facility] Start: 01-03-2025 End: 01-03-2025 ambulatory [facility] Start: 01-03-2025 End: 01-03-2025 Office outpatient visit 5 minutes Asmita Zambrano MD Work Phone: [facility] Comment on above: Urinary retention Start: 12-16-2024 End: 12-16-2024 Emergency department patient visit Dr. Timoteo Mckenna DO -Emergency Department Work Phone: Start: 12-13-2024 End: 12-13-2024 Patient encounter procedure Urology [id number] Procedure Room [facility] Comment on above: Bladder spasms (Prim federico Dx); Urinary retention Start: 12-13-2024 End: 12-13-2024 ambulatory [facility]ulatory Start: 12-08-2024 End: 12-08-[address] John Mckeon DO -Laboratory, Vincent Dutton [facility] Start: 12-08-2024 End: 12-08-2024 ambulatory [facility] Facility:[facility] Start: 12-06-2024 End: 12-06-2024 Office outpatient visit 15 minutes Asmita Zambrano MD Work Phone: [facility] Comment on above: Urinary retention; Bladder spasm; Malignant neoplasm of prostate (Multi) Start: 12-06-2024 End: 12-06-2024 ambulatory [facility] Start: 12-01-2024 End: 12-01-2024 ambulatory [facility] Facility:[facility] Start: 12-01-2024 End: 12-01-[address] Timoteo Mullins MD -[facility] Work Phone: Start: 11-10-2024 End: 11-10-[address] Timoteo Mullins MD -[facility] Work Phone: Start: 11-10-2024 End: 11-10-2024 ambulatory [facility] Facility:[facility] Start: 10-18-2024 End: 10-18-2024 Office outpatient visit 5 minutes Asmita Zambrano MD Work Phone: [facility] Comment on above: Urinary retention Start: 10-18-2024 End: 10-18-2024 ambulatory [facility] Start: 09-06-2024 End: 09-07-2024 ambulatory [facility] Start: 09-01-2024 End: 09-01-2024 ambulatory [facility] Facility:[facility] Start: 08-03-2024 End: 08-03-2024 ambulatory [facility] Facility:[facility] Start: 07-25-2024 End: 07-25-2024 Subsequent hospital visit by physician Asmita Zambrano MD Work Phone: [facility] [place] Comment on above: Urinary retention (P rimary Dx) Start: 07-24-2024 ambulatory [facility] Start: 07-12-2024 End: 07-12-2024 Office outpatient visit 25 minutes Asmita Zambrnao MD Work Phone: [facility] Comment on above: Malignant neoplasm o f prostate (Multi); Abnormal digital rectal exam; Elevated PSA; Retention of urine Start: 07-12-2024 End: 07-12-2024 [facility] Ambulatory Start: 07-10-2024 End: 07-10-2024 Subsequent hospital visit by physician Darrell Ghosh [address] [place] [address] Comment on above: Malignant neoplasm o f prostate (Multi) Start: 07-10-2024 End: 07-10-2024 ambulatory [facility] Start: 07-06-2024 End: 07-06-2024 ambulatory [facility] Facility:[facility] Start: 06-28-2024 End: 06-28-2024 Office outpatient visit 25 minutes Asmita Zambrano MD Work Phone: [facility] Comment on above: Elevated PSA; Abnormal digital rectal exam; Malignant neoplasm of prostate (Multi); Retention of urine Start: 06-28-2024 End: 06-28-2024 ambulatory [facility] Start: 06-14-2024 End: 06-14-2024 Patient encounter procedure Asmita Zambrano MD Work Phone: [facility] Comment on above: Elevated PSA (Primar y Dx) Start: 06-14-2024 End: 06-14-2024 ambulatory [facility] Start: 06-02-2024 End: 06-02-2024 ambulatory [facility] Facility:[facility] Start: 05-31-2024 End: 05-31-2024 ambulatory [facility] Facility:[facility] Start: 05-30-2024 End: 05-30-2024 ambulatory [facility] Facility:[facility] Start: 05-24-2024 End: 05-24-2024 ambulatory [facility] Start: 05-23-2024 End: 05-23-2024 ambulatory [facility] Facility:[facility] Start: 05-17-2024 End: 05-17-2024 Patient encounter procedure Asmita Zambrano MD Work Phone: [facility] Comment on above: Incomplete bladder e mptying (Primary Dx) Start: 05-17-2024 End: 05-17-2024 ambulatory [facility] Start: 05-17-2024 End: 05-17-2024 ambulatory [facility] Facility:[facility] Start: 04-26-2024 End: 04-26-2024 Office outpatient new 45 minutes Asmita Zambrano MD Work Phone: [facility] Comment on above: Benign prostatic hyp erplasia with lower urinary tract symptoms, symptom details unspecified; Retention of urine; Nocturia; Abnormal digital rectal exam Start: 04-26-2024 End: 04-26-2024 ambulatory [facility] Start: 11-26-2023 End: 11-26-[address] John Mckeon Work Phone: [facility] Work Phone: Start: 11-26-2023 End: 11-26-[address] John Mckeon Work Phone: [facility] Start: 11-23-2023 End: 11-23-[address] John Mckeon Work Phone: [facility] Work Phone: Start: 10-20-2023 End: 10-22-2023 Evaluation and management of inpatient Dr. John Mckeon Work Phone: [facility]-Medical Surgical 3 Work Phone: Start: 10-20-2023 End: 10-22-[address] John Mckeon Work Phone: [facility] Work Phone: Start: 10-12-2023 End: 10-12-2023 Non-patient / Non-visit Dr. John Mckeon Work Phone: [facility] Work Phone: Start: 10-12-2023 End: 10-12-[address] John Mckeon Work Phone: [facility] Work Phone: Start: 10-12-2023 End: 10-12-[address] John Mckeon Work Phone: [facility]-Laboratory Work Phone: Start: 09-15-2023 End: 09-15-[address] John Mckeon Work Phone: [facility] Work Phone: Start: 09-15-2023 End: 09-15-[address] John Mckeon Work Phone: [facility]-Laboratory, Specimen Work Phone: Start: 09-06-2023 Non-patient / Non-visit Dr. John Mckeon Work Phone: [facility] Work Phone: Start: 09-05-2023 Non-patient / Non-visit Dr. John Mckeon Work Phone: [facility] Work Phone: Start: 09-04-2023 End: 09-06-2023 Evaluation and management of inpatient Dr. John Mckeon Work Phone: [facility] 3 Work Phone: Start: 09-04-2023 End: 09-06-[address] John Mckeon Work Phone: [facility] Work Phone: Start: 09-03-2023 End: 09-03-[address] John Mckeon Work Phone: [facility] Work Phone: Start: 08-31-2023 End: 08-31-[address] John Mckeon Work Phone: [facility] Work Phone: Start: 08-31-2023 End: 08-31-[address] [facility] Start: 07-20-2023 End: 07-20-[address] John Mckeon Work Phone: [facility] Work Phone: Start: 07-20-2023 End: 07-20-[address] [facility] Start: 07-09-2023 End: 07-09-[address] John Mckeon Work Phone: [facility] Work Phone: Start: 07-09-2023 End: 07-09-[address] [facility] Start: 06-17-2023 End: 06-17-[address] John Mckeon Work Phone: [facility] Work Phone: Start: 05-11-2023 End: 05-11-[address] John Mckeon Work Phone: [facility] Work Phone: Start: 05-11-2023 End: 05-11-[address] John Mckeon Work Phone: [facility] Work Phone: Start: 04-07-2023 End: 04-07-[address] John Mckeon Work Phone: [facility] Work Phone: Start: 03-26-2023 End: 03-26-[address] John Mckeon Work Phone: [facility] Work Phone: Start: 03-26-2023 End: 03-26-[address] John Mckeon Work Phone: [facility] Start: 02-25-2023 End: 02-25-[address] John Mckeon Work Phone: [facility] Start: 02-24-2023 End: 02-24-[address] John Mckeon Work Phone: [facility] Start: 02-17-2023 Non-patient / Non-visit Dr. John Mckeon Work Phone: [facility] Start: 01-06-2023 End: 01-06-2023 Emergency department patient visit Dr. John Mckeon Work Phone: [facility]-Emergency Department Start: 12-27-2022 End: 12-28-2022 Emergency department patient visit Dr. Shailesh Mancini Work Phone: [facility]-Emergency Department Start: 11-18-2022 End: 11-18-[address] Shailesh Mancini Work Phone: [facility] Start: 10-21-2022 End: 10-21-2022 Admission to same day surgery center Dr[facility]ini [facility] Start: 10-21-2022 End: 10-21-[address] Shailesh Mancini Work Phone: [facility] Work Phone: Start: 10-12-2022 End: 10-12-[address] Shailesh Mancini Work Phone: [facility] Work Phone: Start: 10-12-2022 End: 10-12-[address] [facility] Start: 08-05-2022 End: 08-05-[address] Shailesh Mancini Work Phone: [facility] Start: 07-18-2022 End: 07-18-[address] Shailesh Mancini Work Phone: [facility] Start: 06-03-2022 End: 06-03-2022 Patient encounter procedure [facility] Start: 04-15-2022 End: 04-15-2022 Patient encounter procedure [facility] Start: 03-05-2022 End: 03-05-2022 Patient encounter procedure [facility] Start: 02-03-2022 End: 02-03-2022 [facility] Start: 12-31-2021 End: 12-31-2021 Patient encounter procedure [facility] Start: 10-16-2021 [facility] Start: 10-18-2011 End: 10-18-2011 REFILL - MYCCHRISTIT Marino Roque Work Phone: Gastroenterology Comment on above: RE: Medication Renew al Request Procedures Date Procedure Procedure Detail Performing Clinician Start: 04-27-2025 Urnls dip stick/tabl et reagent auto microscopy Dr. John Mckeon DO Work Phone: Start: 04-27-[address] John Mckeon DO Work Phone: Start: 04-25-2025 Assay of prostate sp ecific antigen total Dr. John Mckeon DO Work Phone: Comment on above: This test was perfor med using the [employer] [employer] tPSA method. Measured values of a patient sample can vary depending on the testing procedure used. PSA values determined on patient samples by different testing procedures cannot be used interchangeably. If there is a change in PSA assays while monitoring therapy, sequential testing should be performed to confirm baseline values. Start: 12-16-2024 SARS-CoV-2, Influenz a & RSV (PCR) Dr. John Mckeon DO Work Phone: Start: 07-25-2024 PULSE OXIMETRY, SPOT Amy waleska Zambrano MD Work Phone: Start: 10-20-2023 Cysto,Transurethral Resection Prostate (Not Applicable) Dr. John Mckeon Work Phone: Start: 09-15-[address] John Mckeon Work Phone: Start: 09-04-2023 Plain chest X-ray Dr. Adeel Mckeon Work Phone: Start: 09-04-2023 CT of abdomen and pe lvis without contrast Dr. John Mckeon Work Phone: [...] 04-08-2016 Follow Up Appt 6 months Robbi Abobtt MD Start: 04-08-2016 End: 04-08-2016 INR in Platelet poor plasma by Coagulation assay Robbi Abbott MD Start: 04-08-2016 End: 04-08-2016 MMM Robbi Abbott MD Start: 04-08-2016 End: 04-21-2016 Nurse, Teaching, Wound Check (no charge) Timoteo Mullins MD Start: 04-08-2016 Lipid 1996 panel - S parker or Plasma Asmita Zambrano MD Work Phone: [...] 09-09-2015 End: 09-09-2015 Documentation of current medications bAril Dupree PA-C Work Phone: Start: 09-09-2015 End: [...] function 2000 panel - Serum or Plasma oRbbi Abbott MD Start: 04-01-2015 End: 09-09-2015 Lipid [...] Abbott MD Start: 03-02-2014 End: 03-02-2014 JOE Abbtot MD Start: 01-30-2014 End: 08-23-2014 *Hepatic Function [...] dual lead dfb Timoteo Mullins MD Start: 03-20-2013 End: 08-04-2013 Follow [...] Robbi Abbott MD Start: 01-13-2011 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, HX OF Elsy Grubbs RN Plan of Treatment Date Care Activity Detail Author Start: 01-25-2030 DTaP/Tdap/Td Vaccines (2 - Td or Tdap) DTaP/Tdap/Td Vaccines (2 - Td or Tdap) [facility] Start: 10-24-2025 End: 04-24-2026 Prostate specific Ag [Mass/volume] in Serum or Plasma PSA Lab Routine Prostate cancer (Multi) Expected: 10/24/2025 (Approximate), Expires: 04/24/2026 [facility] Work Phone: Comment on above: Expected: 10/24/2025 (Approximate), Expi res: 04/24/2026 Start: 10-23-2025 End: 10-23-2025 Patient encounter procedure 10/23/2025 1:30 PM EST Office Visit [facility] [address] [facility] [address] [place] [phone] Cheryl Sutherland, JAW SKINNER-NEURORADIOLOGIST [address] [place] [address] [facility] Start: 07-21-2025 Creatinine measurement Creatinine Level [facility] Start: 05-21-2025 End: 05-21-2025 Clinical Support 05/21/2025 1:30 PM EDT Clinical Support [facility] [address] [facility] [address] [place] [phone] [facility] Start: 04-27-2025 [facility] Start: 04-24-2025 End: 04-24-2026 Prostate specific Ag [Mass/volume] in Serum or Plasma PSA Lab Routine Prostate cancer (Multi) Expected: 04/24/2025 (Approximate), Expires: 04/24/2026 [facility] Service Area Work Phone: Comment on above: Expected: 04/24/2025 (Approximate), Expi res: 04/24/2026 Start: 04-06-2025 End: 04-06-2025 Clinical Support 04/06/2025 2:00 PM EDT Clinical Support [address] [phone] [facility] Start: 02-26-2025 End: 02-26-2025 Patient encounter procedure 02/26/2025 3:15 PM EDT Office Visit [address] [place] [phone] Jian Caro MD MPH [address] [place] [address] [facility] Start: 02-26-2025 End: 02-13-2026 Suprapubic Catheter Insertion Suprapubic Catheter Insertion Procedures Routine Urinary retention Expected: 02/26/2025 (Approximate), Expires: 02/13/2026 [facility] Service Area Work Phone: Comment on above: Expected: 02/26/2025 (Approximate), Expi res: 02/13/2026 Start: 01-03-2025 End: 01-03-2025 Clinical Support 01/03/2025 2:15 PM EST Clinical Support [address] [place] [address] [facility] Start: 12-16-2024 [facility] Start: 12-13-2024 End: 12-13-2024 Patient encounter procedure 12/13/2024 3:15 PM EST Procedure Visit [address] [place] [address] [facility] Start: 12-06-2024 End: 12-06-2024 Clinical Support 12/06/2024 3:00 PM EST Clinical Support [address] [place] [address] [facility] Start: 07-25-2024 Subsequent hospital visit by physician 07/25/2024 Hospital Encounter [facility] [place] [address] [place] [address] [place] [address] [place], [place] [id number] [facility] [place] Start: 07-25-2024 End: 07-25-2024 Cystostomy cystotomy w/drainage Cystotomy Suprapubic Urinary retention 07/25/2024 10:54 AM EDT [facility] [place] Start: 07-12-2024 End: 07-12-2024 Patient encounter procedure 07/12/2024 3:30 PM EDT Office Visit [address] [phone] Asmita Zambrano MD [address] [place], [place] [phone] [facility] Start: 07-10-2024 End: 07-10-2024 Patient encounter procedure 07/10/2024 2:15 PM EDT Appointment [address] [phone] [facility] Start: 07-02-2024 COVID-19 Vaccine ( season) COVID-19 Vaccine () [facility] Start: 07-02-2024 COVID-19 Vaccine ( season) COVID-19 Vaccine ( season) [facility] Start: 07-02-2024 Influenza vaccination Influenza Vaccine (#1) [facility] Start: 06-28-2024 End: 06-28-2025 Creatinine [Mass/volume] in Serum or Plasma Creatinine, Serum Lab Routine Retention of urine Expected: 06/28/2024 (Approximate), Expires: 06/28/2025 [facility] Work Phone: Comment on above: Expected: 06/28/2024 (Approximate), Expi res: 06/28/2025 Start: 06-28-2024 End: 06-28-2025 CT Abdomen and Pelvis W contrast IV CT abdomen pelvis w IV contrast Imaging Routine Malignant neoplasm of prostate (Multi) Expected: 06/28/2024 (Approximate), Expires: 06/28/2025 [facility] Service Area Work Phone: Comment on above: Expected: 06/28/2024 (Approximate), Expi res: 06/28/2025 Start: 06-28-2024 End: 06-28-2024 Patient encounter procedure 06/28/2024 1:30 PM EDT Office Visit [address] [phone] Asmita Zambrano MD [address] [place] [id number] [facility] Start: 05-24-2024 End: 05-24-2024 Patient encounter procedure 05/24/2024 3:15 PM EDT Office Visit [address] [phone] Asmita Zambrano MD [address] [place] [id number] [facility] Start: 04-26-2024 End: 04-26-2025 Creatinine [Mass/volume] in Serum or Plasma Creatinine, Serum Lab Routine Nocturia Expected: 04/26/2024 (Approximate), Expires: 04/26/2025 [facility] Work Phone: Comment on above: Expected: 04/26/2024 (Approximate), Expi res: 04/26/2025 Start: 04-26-2024 End: 04-26-2025 CT Pelvis W contrast IV CT pelvis w IV contrast Imaging Routine Abnormal digital rectal exam Expected: 04/26/2024 (Approximate), Expires: 04/26/2025 [facility] Work Phone: Comment on above: Expected: 04/26/2024 (Approximate), Expi res: 04/26/2025 Start: 04-26-2024 End: 04-26-2025 Prostate specific Ag [Mass/volume] in Serum or Plasma Prostate Specific Antigen Lab Routine Nocturia Abnormal digital rectal exam Expected: 04/26/2024 (Approximate), Expires: 04/26/2025 [facility] Service Area Work Phone: Comment on above: Expected: 04/26/2024 (Approximate), Expi res: 04/26/2025 Start: 10-22-2023 Patient discharge [facility] Start: 10-22-2023 Removal of urinary catheter [facility] Start: 10-21-2023 [facility] Start: 10-20-2023 Following clinical pathway protocol [facility] Start: 10-20-2023 Application of intermittent pneumatic compression device [facility] Start: 10-20-2023 Anesthesia transurethral resection of prostate ANESTH REMOVAL OF PROSTATE [facility] Start: 10-20-2023 Trurl rescj residual/regrowth obstr prstate tiss REMOVE PROSTATE REGROWTH [facility] Start: 10-20-2023 Oxygen therapy [facility] Start: 10-20-2023 Admission procedure [facility] Start: 10-20-2023 Deep breathing and coughing exercises [facility] Start: 10-20-2023 Incentive spirometry [facility] Start: 10-20-2023 Irrigation of urinary bladder [facility] Start: 10-20-2023 Measuring intake and output [facility] Start: 10-20-2023 Patient education [facility] Start: 10-20-2023 Provision of activity privileges [facility] Start: 10-20-2023 Taking patient vital signs [facility] Start: 10-20-2023 Vital signs measurements [facility] Start: 10-20-2023 [facility] Start: 09-06-2023 Referral to service [facility] Start: 09-06-2023 Patient discharge [facility] Start: 09-04-2023 End: 09-04-2023 Following clinical pathway protocol [facility] Start: 09-04-2023 Assessment of risk of venous thromboembolism [facility] Start: 09-04-2023 Incentive spirometry [facility] Start: 09-04-2023 Inhalation therapy procedure [facility] Start: 09-04-2023 Insertion of catheter into peripheral vein [facility] Start: 09-04-2023 Measuring intake and output [facility] Start: 09-04-2023 Providing care according to standard [facility] Start: 09-04-2023 Provision of activity privileges [facility] Start: 09-04-2023 Referral to occupational therapist [facility] Start: 09-04-2023 Referral to service [facility] Start: 09-04-2023 [facility] Start: 09-04-2023 Verification routine [facility] Start: 09-04-2023 Admission procedure [facility] Start: 09-04-2023 Hospital admission, emergency, from emergency room, medical nature [facility] Start: 09-04-2023 End: 09-05-2023 [facility] Start: 09-04-2023 Bacteria identified in Urine by Culture Urine Culture [facility] Start: 09-04-2023 Urine culture Urine Culture [facility] Start: 09-04-2023 Patient referral to dietitian [facility] Start: 07-02-2023 COVID-19 Vaccine ( season) COVID-19 Vaccine ( season) [facility] Start: 01-06-2023 Enteric precautions [facility] Start: 10-21-2022 Ambulation without limitation [facility] Start: 10-21-2022 Medication education [facility] Start: 10-21-2022 Patient discharge [facility] Start: 10-21-2022 Taking patient vital signs [facility] Start: 10-21-2022 [facility] Start: 10-21-2022 Anes transurethral w/urethrocystoscopy nos ANESTH BLADDER SURGERY [facility] Start: 10-21-2022 Cystourethroscopy w/internal urethrotomy male CYSTOSCOPY AND TREATMENT [facility] Start: 07-02-2021 Influenza vaccination INFLUENZA (Season Ended) [facility] Start: 04-08-2021 Lipid panel Lipid Panel [facility] Start: 03-05-2019 DIABETES SCREEN DIABETES SCREEN [facility] Start: 12-29-2017 End: 12-29-2017 Appointment Appointment [facility] Work Phone: Start: 10-22-2017 End: 10-22-2017 Appointment Appointment [facility] Work Phone: Start: 10-09-2017 Creatinine measurement Creatinine Level [facility] Start: 10-09-2017 Potassium measurement Potassium Level [facility] Start: 09-27-2017 End: 09-28-2017 Follow Up Appt 3 months Follow Up Appt 3 months [facility] Work Phone: Start: 09-27-2017 End: 09-28-2017 Pacer Clinic [facility] Work Phone: Start: 09-27-2017 End: 09-27-2017 Patient encounter procedure Appointment [facility] [employer] [employer] [facility] Work Phone: Start: 09-27-2017 End: 10-13-2017 Follow Up Appt 3 months Follow Up Appt 3 months [facility] Work Phone: Start: 09-27-2017 End: 10-13-2017 Pacer Clinic Pac[facility] Clinic [facility] Work Phone: Start: 06-28-2017 End: 06-28-2017 Patient encounter procedure [facility]ment [facility] Work Phone: Start: 06-28-2017 End: 06-28-2017 Follow Up Appt 3 months Follow Up Appt 3 months [facility] Work Phone: Start: 06-28-2017 End: 06-28-2017 Pacer Clinic Pacer Clinic [facility] Work Phone: Start: 06-28-2017 End: 10-13-2017 Follow Up Appt 3 months Follow Up Appt 3 months [facility] Work Phone: Start: 06-28-2017 End: 10-13-2017 Pacer Clinic Pacer Clinic [facility] Work Phone: Start: 05-24-2017 End: 05-24-2017 Follow Up Appt Other Follow Up Appt Other [facility] Work Phone: Start: 05-24-2017 End: 05-24-2017 MMM MMM [facility] Work Phone: Start: 05-24-2017 End: 05-24-2017 Nuclear stress test -Lexiscan Nuclear stress test -Lexiscan [facility] Work Phone: Start: 05-24-2017 End: 05-24-2017 PFM PFM [facility] Work Phone: Start: 05-24-2017 End: 05-24-2017 Patient encounter procedure Appointment [facility] Work Phone: Start: 05-24-2017 End: 05-24-2017 Follow Up Appt Other Follow Up Appt Other [facility] Work Phone: Start: 05-24-2017 End: 05-24-2017 MMM MMM [facility] Work Phone: Start: 05-24-2017 End: 05-24-2017 Nuclear stress test -Lexiscan Nuclear stress test -Lexiscan [facility] Work Phone: Start: 05-24-2017 End: 05-24-2017 PFM PFM [facility] Work Phone: Start: 04-12-2017 End: 04-12-2017 Follow Up Appt 6 months Follow Up Appt 6 months [facility] Work Phone: Start: 04-12-2017 End: 04-12-2017 Follow Up Appt Other Follow Up Appt Other [facility] Work Phone: Start: 04-12-2017 End: 04-12-2017 MMM MMM [facility] Work Phone: Start: 04-12-2017 End: 04-12-2017 Patient encounter procedure Appointment [facility] Work Phone: Start: 04-12-2017 End: 10-13-2017 Follow Up Appt 6 months Follow Up Appt 6 months [facility] Work Phone: Start: 04-12-2017 End: 10-13-2017 Follow Up Appt Other Follow Up Appt Other [facility] Work Phone: Start: 04-12-2017 End: 10-13-2017 MMM MMM [facility] Work Phone: Start: 03-22-2017 End: 03-23-2017 Follow Up Appt 3 months Follow Up Appt 3 months [facility] Work Phone: Start: 03-22-2017 End: 03-23-2017 Pacer Clinic Pacer Clinic [facility] Work Phone: Start: 03-22-2017 End: 10-13-2017 Follow Up Appt 3 months Follow Up Appt 3 months [facility] Work Phone: Start: 03-22-2017 End: 10-13-2017 Pacer Clinic Pacer Clinic [facility] Work Phone: Start: 12-17-2016 End: 12-17-2016 Follow Up Appt 3 months Follow Up Appt 3 months [facility] Work Phone: Start: 12-17-2016 End: 12-17-2016 Pacer Clinic Pacer Clinic [facility] Work Phone: Start: 12-17-2016 End: 10-13-2017 Follow Up Appt 3 months Follow Up Appt 3 months [facility] Work Phone: Start: 12-17-2016 End: 10-13-2017 Pacer Clinic Pacer Clinic [facility] Work Phone: Start: 10-09-2016 End: 10-12-2016 *BMP *BMP [facility] Work Phone: Start: 10-09-2016 End: 10-09-2016 *CBC with Differential *CBC with Differential [facility] Work Phone: Start: 10-09-2016 End: 10-09-2016 BNP *Brain Natriuretic Peptide BNP [facility] Work Phone: Start: 10-09-2016 End: 10-12-2016 Chest x-ray X-Ray, Chest, PA & Lateral [facility] Work Phone: Start: 10-09-2016 End: 10-09-2016 Follow Up Appt Other Follow Up Appt Other [employer] Work Phone: Start: 10-09-2016 End: 10-12-2016 Thyroid stimulating hormone (TSH) *TSH [facility] Work Phone: Start: 10-09-2016 End: 10-12-2016 Thyroxine (T4) *T4 (Total) [facility] Work Phone: Start: 10-09-2016 End: 10-12-2016 Basic metabolic 2000 panel - Serum or Plasma *BMP [facility] Work Phone: Start: 10-09-2016 End: 10-09-2016 CBC W Auto Differential panel - Blood *CBC with Differential [employer] Work Phone: Start: 10-09-2016 End: 10-12-2016 Chest x-ray X-Ray, Chest, PA & Lateral [employer] [facility] Work Phone: Start: 10-09-2016 End: 10-09-2016 Follow Up Appt Other Follow Up Appt Other [employer] Work Phone: Start: 10-09-2016 End: 10-09-2016 Natriuretic peptide B [Mass/volume] in Blood *Brain Natriuretic Peptide BNP [facility] Work Phone: Start: 10-09-2016 End: 10-12-2016 Thyrotropin [Units/volume] in Serum or Plasma *TSH [employer] Work Phone: Start: 10-09-2016 End: 10-12-2016 Thyroxine (T4) [Mass/volume] in Serum or Plasma *T4 (Total) [employer] Work Phone: Start: 09-08-2016 End: 09-30-2016 Follow Up Appt 3 months Follow Up Appt 3 months [employer] [facility] Work Phone: Start: 09-08-2016 End: 09-30-2016 Pacer Clinic Pacer Clinic [employer] [facility] Work Phone: Start: 09-08-2016 End: 09-30-2016 Follow Up Appt 3 months Follow Up Appt 3 months [facility] Work Phone: Start: 09-08-2016 End: 09-30-2016 Pacer Clinic Pacer Clinic [facility] Work Phone: Start: 04-24-2016 End: 09-30-2016 Follow Up Appt 3 months Follow Up Appt 3 months [facility] Work Phone: Start: 04-24-2016 End: 09-30-2016 Pacer Clinic Pacer Clinic [facility] Work Phone: Start: 04-24-2016 End: 09-30-2016 Follow Up Appt 3 months Follow Up Appt 3 months [facility] Work Phone: Start: 04-24-2016 End: 09-30-2016 Pacer Clinic Pacer Clinic [facility] Work Phone: Start: 04-09-2016 End: 04-09-2016 *BMP *BMP [facility] Work Phone: Start: 04-09-2016 End: 04-08-2016 *UA - Urinalysis w/o Micro *UA - Urinalysis w/o Micro [facility] Work Phone: Start: 04-09-2016 End: 04-08-2016 CBC W Auto Differential panel - Blood *CBC without Diff [facility] Work Phone: Start: 04-09-2016 End: 04-08-2016 INR Coag RelTime (PPP) *PT/INR [facility] Work Phone: Start: 04-09-2016 End: 04-08-2016 Pacemaker Generator Change Pacemaker Generator Change [facility] Work Phone: Start: 04-09-2016 End: 04-08-2016 *UA - Urinalysis w/o Micro *UA - Urinalysis w/o Micro [facility] Work Phone: Start: 04-09-2016 End: 04-09-2016 Basic metabolic 2000 panel - Serum or Plasma *BMP [facility] Work Phone: Start: 04-09-2016 End: 04-08-2016 CBC W Auto Differential panel - Blood *CBC without Diff [employer] [facility] Work Phone: Start: 04-09-2016 End: 04-08-2016 INR in Platelet poor plasma by Coagulation assay *PT/INR [employer] Work Phone: Start: 04-09-2016 End: 04-08-2016 Pacemaker Generator Change Pacemaker Generator Change [facility] Work Phone: Start: 04-08-2016 End: 04-08-2016 *Hepatic Function Panel *Hepatic Function Panel [employer] [facility] Work Phone: Start: 04-08-2016 End: 04-08-2016 Ecg routine ecg w/least 12 lds w/i&r EKG (In office) [employer] [facility] Work Phone: Start: 04-08-2016 End: 04-08-2016 Follow Up Appt 6 months Follow Up Appt 6 months [employer] Phone: Start: 04-08-2016 End: 04-08-2016 Lipid panel [AGGREGATE] *Lipid Profile CC PCP [employer] [facility] Work Phone: Start: 04-08-2016 End: 04-08-2016 MMM MMM [employer] Work Phone: Start: 04-08-2016 End: 04-08-2016 Ecg routine ecg w/least 12 lds w/i&r EKG (In office) [employer] Work Phone: Start: 04-08-2016 End: 04-08-2016 Follow Up Appt 6 months Follow Up Appt 6 months [employer] Phone: Start: 04-08-2016 End: 10-13-2017 Hepatic function 2000 panel - Serum or Plasma *Hepatic Function Panel [employer] Phone: Start: 04-08-2016 End: 10-13-2017 Lipid 1996 panel - Serum or Plasma *Lipid Profile CC PCP [employer] Work Phone: Start: 04-08-2016 End: 04-08-2016 MMM MMM [facility] Work Phone: Start: 03-30-2016 End: 09-30-2016 *Hepatic Function Panel *Hepatic Function Panel [facility] Work Phone: Start: 03-30-2016 End: 09-30-2016 Lipid panel [AGGREGATE] *Lipid Profile CC PCP [facility] Work Phone: Start: 03-30-2016 End: 09-30-2016 Hepatic function 2000 panel - Serum or Plasma *Hepatic Function Panel [facility] Work Phone: Start: 03-30-2016 End: 09-30-2016 Lipid 1996 panel - Serum or Plasma *Lipid Profile CC PCP [facility] Work Phone: Start: 03-19-2016 End: 04-08-2016 Chest x-ray X-Ray, Chest, PA & Lateral [facility] Work Phone: Start: 03-19-2016 End: 09-30-2016 Ecg routine ecg w/least 12 lds w/i&r EKG (In office) [facility] Work Phone: Start: 03-19-2016 End: 04-08-2016 Chest x-ray X-Ray, Chest, PA & Lateral [facility] Work Phone: Start: 03-19-2016 End: 09-30-2016 Ecg routine ecg w/least 12 lds w/i&r EKG (In office) [facility] Work Phone: Start: 02-28-2016 End: 09-30-2016 Follow Up Appt 1 month Follow Up Appt 1 month [facility] Work Phone: Start: 02-28-2016 End: 09-30-2016 Pacer Clinic Pacer Clinic [facility] Work Phone: Start: 02-28-2016 End: 09-30-2016 Follow Up Appt 1 month Follow Up Appt 1 month [facility] Work Phone: Start: 02-28-2016 End: [...] 01-17-2016 End: 09-30-2016 Pacer Clinic Pacer Clinic [facility] Work Phone: Start: 11-15-2015 End: 09-30-2016 Follow Up Appt 3 months Follow Up Appt 3 months [facility] Work Phone: Start: 11-15-2015 End: 09-30-2016 Pacer Clinic Pacer Clinic [facility] Work Phone: Start: 11-15-2015 End: 09-30-2016 Follow Up Appt 3 months Follow Up Appt 3 months [facility] Work Phone: Start: 11-15-2015 End: 09-30-2016 Pacer Clinic Pacer Clinic [facility] Work Phone: Start: 10-02-2015 End: 09-30-2016 Follow Up Appt 1 month Follow Up Appt 1 month [facility] Work Phone: Start: 10-02-2015 End: 09-30-2016 Pacer Clinic Pacer Clinic [facility] Work Phone: Start: 10-02-2015 End: 09-30-2016 Follow Up Appt 1 month Follow Up Appt 1 month [facility] Work Phone: Start: 10-02-2015 End: 09-30-2016 Pacer Clinic Pacer Clinic [facility] Work Phone: Start: 09-09-2015 End: 09-30-2015 *BMP *BMP [facility] Work Phone: Start: 09-09-2015 End: 09-30-2015 *CBC with Differential *CBC with Differential [facility] Work Phone: Start: 09-09-2015 End: 09-30-2015 *Hepatic Function Panel *Hepatic Function Panel [employer] Work Phone: Start: 09-09-2015 End: 09-30-2015 BNP *Brain Natriuretic Peptide BNP [employer] Work Phone: Start: 09-09-2015 End: 10-09-2016 Chest x-ray X-Ray, Chest, PA & Lateral [employer] Work Phone: Start: 09-09-2015 End: 09-30-2016 Follow Up Appt 1 month Follow Up Appt 1 month [employer] Work Phone: Start: 09-09-2015 End: 09-09-2015 Follow Up Appt 6 months Follow Up Appt 6 months [employer] Work Phone: Start: 09-09-2015 End: 09-30-2015 Lipid panel [AGGREGATE] *Lipid Profile CC PCP [facility] Work Phone: Start: 09-09-2015 End: 09-30-2016 Pacer Clinic Pacer Clinic [employer] [facility] Work Phone: Start: 09-09-2015 End: 09-09-2015 PFM PFM [employer] Work Phone: Start: 09-09-2015 End: 09-30-2015 Basic metabolic 2000 panel - Serum or Plasma *BMP [facility] Work Phone: Start: 09-09-2015 End: 09-30-2015 CBC W Auto Differential panel - Blood *CBC with Differential [employer] Work Phone: Start: 09-09-2015 End: 10-09-2016 Chest x-ray X-Ray, Chest, PA & Lateral [employer] Work Phone: Start: 09-09-2015 End: 09-30-2016 Follow Up Appt 1 month Follow Up Appt 1 month [employer] Work Phone: Start: 09-09-2015 End: 09-09-2015 Follow Up Appt 6 months Follow Up Appt 6 months [employer] Work Phone: Start: 09-09-2015 End: 09-30-2015 Hepatic function 2000 panel - Serum or Plasma *Hepatic Function Panel [employer] [facility] Work Phone: Start: 09-09-2015 End: 09-30-2015 Lipid 1996 panel - Serum or Plasma *Lipid Profile CC PCP [employer] Work Phone: Start: 09-09-2015 End: 09-30-2015 Natriuretic peptide B [Mass/volume] in Blood *Brain Natriuretic Peptide BNP [facility] Work Phone: Start: 09-09-2015 End: 09-30-2016 Pacer Clinic Pacer Clinic [facility] Work Phone: Start: 09-09-2015 End: 09-09-2015 PFM PFM [employer] Work Phone: Start: 05-06-2015 End: 09-03-2015 Follow Up Appt 3 months Follow Up Appt 3 months [facility] Work Phone: Start: 05-06-2015 End: 09-03-2015 Pacer Clinic Pacer Clinic [facility] Work Phone: Start: 05-06-2015 End: 09-03-2015 Follow Up Appt 3 months Follow Up Appt 3 months [facility] Work Phone: Start: 05-06-2015 End: 09-03-2015 Pacer Clinic Pacer Clinic [facility] Work Phone: Start: 04-01-2015 End: 09-09-2015 *Hepatic Function Panel *Hepatic Function Panel [employer] Work Phone: Start: 04-01-2015 End: 09-09-2015 Lipid panel [AGGREGATE] *Lipid Profile CC PCP [facility] Work Phone: Start: 04-01-2015 End: 09-09-2015 Hepatic function 2000 panel - Serum or Plasma *Hepatic Function Panel [facility] Work Phone: Start: 04-01-2015 End: 09-09-2015 Lipid 1996 panel - Serum or Plasma *Lipid Profile CC PCP [facility] Work Phone: Start: 03-04-2015 End: 03-04-2015 Follow Up Appt 6 months Follow Up Appt 6 months [facility] Work Phone: Start: 03-04-2015 End: 03-04-2015 MMM MMM [facility] Work Phone: Start: 03-04-2015 End: 03-04-2015 Follow Up Appt 6 months Follow Up Appt 6 months [facility] Work Phone: Start: 03-04-2015 End: 03-04-2015 MMM MMM [employer] Work Phone: Start: 01-16-2015 End: 09-03-2015 Follow Up Appt 3 months Follow Up Appt 3 months [facility] Work Phone: Start: 01-16-2015 End: 09-03-2015 Pacer Clinic Pacer Clinic [facility] Work Phone: Start: 01-16-2015 End: 09-03-2015 Follow Up Appt 3 months Follow Up Appt 3 months [facility] Work Phone: Start: 01-16-2015 End: 09-03-2015 Pacer Clinic Pacer Clinic [facility] Work Phone: Start: 11-30-2014 End: 11-30-2014 Follow Up Appt Other Follow Up Appt Other [facility] Work Phone: Start: 11-30-2014 End: 11-30-2014 PFM PFM [facility] Work Phone: Start: 11-30-2014 End: 11-30-2014 Follow Up Appt Other Follow Up Appt Other [facility] Work Phone: Start: 11-30-2014 End: 11-30-2014 PFM PFM [facility] Work Phone: Start: 11-29-2014 End: 11-29-2014 *BMP *BMP [facility] Work Phone: Start: 11-29-2014 End: 11-29-2014 Basic metabolic 2000 panel - Serum or Plasma *BMP [facility] Work Phone: Start: 11-14-2014 End: 11-15-2014 *BMP *BMP [facility] Work Phone: Start: 11-14-2014 End: 11-15-2014 *CBC with Differential *CBC with Differential [facility] Work Phone: Start: 11-14-2014 End: 11-15-2014 BNP *Brain Natriuretic Peptide BNP [facility] Work Phone: Start: 11-14-2014 End: 11-15-2014 Chest x-ray X-Ray, Chest, PA & Lateral [facility] Work Phone: Start: 11-14-2014 End: 11-14-2014 Follow up Appt 3 weeks Follow up Appt 3 weeks [facility] Work Phone: Start: 11-14-2014 End: 11-14-2014 MMM MMM [facility] Work Phone: Start: 11-14-2014 End: 11-15-2014 Basic metabolic 2000 panel - Serum or Plasma *BMP [facility] Work Phone: Start: 11-14-2014 End: 11-15-2014 CBC W Auto Differential panel - Blood *CBC with Differential [facility] Work Phone: Start: 11-14-2014 End: 11-15-2014 Chest x-ray X-Ray, Chest, PA & Lateral [facility] Work Phone: Start: 11-14-2014 End: 11-14-2014 Follow up Appt 3 weeks Follow up Appt 3 weeks [facility] Work Phone: Start: 11-14-2014 End: 11-14-2014 MMM MMM [facility] Work Phone: Start: 11-14-2014 End: 11-15-2014 Natriuretic peptide B [Mass/volume] in Blood *Brain Natriuretic Peptide BNP [employer] Work Phone: Start: 10-16-2014 End: 11-14-2014 Follow Up Appt 3 months Follow Up Appt 3 months [employer] Work Phone: Start: 10-16-2014 End: 11-14-2014 Pacer Clinic Pacer Clinic [employer] Work Phone: Start: 10-16-2014 End: 11-14-2014 Follow Up Appt 3 months Follow Up Appt 3 months [employer] Work Phone: Start: 10-16-2014 End: 11-14-2014 Pacer Clinic Pacer Clinic [employer] Work Phone: Start: 09-03-2014 End: 10-01-2014 *Hepatic Function Panel *Hepatic Function Panel [employer] Phone: Start: 09-03-2014 End: 09-03-2014 Ecg routine ecg w/least 12 lds w/i&r EKG (In office) [employer] Work Phone: Start: 09-03-2014 End: 09-03-2014 Follow Up Appt Other Follow Up Appt Other [employer] Phone: Start: 09-03-2014 End: 10-01-2014 Lipid panel [AGGREGATE] *Lipid Profile CC PCP [employer] Work Phone: Start: 09-03-2014 End: 09-03-2014 PFM PFM [employer] Work Phone: Start: 09-03-2014 End: 09-03-2014 Ecg routine ecg w/least 12 lds w/i&r EKG (In office) [employer] Work Phone: Start: 09-03-2014 End: 09-03-2014 Follow Up Appt Other Follow Up Appt Other [employer] Phone: Start: 09-03-2014 End: 10-01-2014 Hepatic function 2000 panel - Serum or Plasma *Hepatic Function Panel [employer] Work Phone: Start: 09-03-2014 End: 10-01-2014 Lipid 1996 panel - Serum or Plasma *Lipid Profile CC PCP [facility] Work Phone: Start: 09-03-2014 End: 09-03-2014 PFM PFM [facility] Work Phone: Start: 07-03-2014 End: 08-23-2014 Follow Up Appt 3 months Follow Up Appt 3 months [facility] Work Phone: Start: 07-03-2014 End: 08-23-2014 Pacer Clinic Pacer Clinic [facility] Work Phone: Start: 07-03-2014 End: 08-23-2014 Follow Up Appt 3 months Follow Up Appt 3 months [facility] Work Phone: Start: 07-03-2014 End: 08-23-2014 Pacer Clinic Pacer Clinic [facility] Work Phone: Start: 04-04-2014 End: 07-03-2014 Follow Up Appt 3 months Follow Up Appt 3 months [facility] Work Phone: Start: 04-04-2014 End: 07-03-2014 Pacer Clinic Pacer Clinic [facility] Work Phone: Start: 04-04-2014 End: 07-03-2014 Follow Up Appt 3 months Follow Up Appt 3 months [facility] Work Phone: Start: 04-04-2014 End: 07-03-2014 Pacer Clinic Pacer Clinic [facility] Work Phone: Start: 03-02-2014 End: 10-01-2014 *Hepatic Function Panel *Hepatic Function Panel [facility] Work Phone: Start: 03-02-2014 End: 03-02-2014 Follow Up Appt 6 months Follow Up Appt 6 months [facility] Work Phone: Start: 03-02-2014 End: 10-01-2014 Lipid panel [AGGREGATE] *Lipid Profile CC PCP [facility] Work Phone: Start: 03-02-2014 End: 03-02-2014 MMM MMM [facility] Work Phone: Start: 03-02-2014 End: 03-02-2014 Follow Up Appt 6 months Follow Up Appt 6 months [facility] Work Phone: Start: 03-02-2014 End: 10-01-2014 Hepatic function 2000 panel - Serum or Plasma *Hepatic Function Panel [facility] Work Phone: Start: 03-02-2014 End: 10-01-2014 Lipid 1996 panel - Serum or Plasma *Lipid Profile CC PCP [facility] Work Phone: Start: 03-02-2014 End: 03-02-2014 MMM MMM [facility] Work Phone: Start: 01-30-2014 End: 08-23-2014 *Hepatic Function Panel *Hepatic Function Panel [facility] Work Phone: Start: 01-30-2014 End: 08-23-2014 Lipid panel [AGGREGATE] *Lipid Profile CC PCP [facility] Work Phone: Start: 01-30-2014 End: 08-23-2014 Hepatic function 2000 panel - Serum or Plasma *Hepatic Function Panel [facility] Work Phone: Start: 01-30-2014 End: 08-23-2014 Lipid 1996 panel - Serum or Plasma *Lipid Profile CC PCP [facility] Work Phone: Start: 12-26-2013 End: 07-03-2014 Follow Up Appt 3 months Follow Up Appt 3 months [facility] Work Phone: Start: 12-26-2013 End: 07-03-2014 Pacer Clinic Pacer Clinic [facility] Work Phone: Start: 12-26-2013 End: 07-03-2014 Follow Up Appt 3 months Follow Up Appt 3 months [facility] Work Phone: Start: 12-26-2013 End: 07-03-2014 Pacer Clinic Pacer Clinic [facility] Work Phone: Start: 08-17-2013 End: 12-18-2013 Follow Up Appt 3 months Follow Up Appt 3 months [facility] Work Phone: Start: 08-17-2013 End: 12-18-2013 Pacer Clinic Pacer Clinic [facility] Work Phone: Start: 08-17-2013 End: 12-18-2013 Follow Up Appt 3 months Follow Up Appt 3 months [facility] Work Phone: Start: 08-17-2013 End: 12-18-2013 Pacer Clinic Pacer Clinic [facility] Work Phone: Start: 08-04-2013 End: 08-18-2013 *Hepatic Function Panel *Hepatic Function Panel [facility] Work Phone: Start: 08-04-2013 End: 08-04-2013 Device Interrogation Device Interrogation [facility] Work Phone: Start: 08-04-2013 End: 08-04-2013 Follow Up Appt 6 months Follow Up Appt 6 months [facility] Work Phone: Start: 08-04-2013 End: 08-18-2013 Lipid panel [AGGREGATE] *Lipid Profile PCP [facility] Work Phone: Start: 08-04-2013 End: 08-04-2013 PFM PFM [facility] Work Phone: Start: 08-04-2013 End: 08-04-2013 Device Interrogation Device Interrogation [facility] Work Phone: Start: 08-04-2013 End: 08-04-2013 Follow Up Appt 6 months Follow Up Appt 6 months [facility] Work Phone: Start: 08-04-2013 End: 08-18-2013 Hepatic function 2000 panel - Serum or Plasma *Hepatic Function Panel [facility] Work Phone: Start: 08-04-2013 End: 08-18-2013 Lipid 1996 panel - Serum or Plasma *Lipid Profile CC PCP [facility] Work Phone: Start: 08-04-2013 End: 08-04-2013 PFM [facility] Work Phone: Start: 05-19-2013 End: 08-04-2013 Follow Up Appt 3 months Follow Up Appt 3 months [facility] Work Phone: Start: 05-19-2013 End: 08-04-2013 Pacer Clinic Pacer Clinic [facility] Work Phone: Start: 05-19-2013 End: 08-04-2013 Follow Up Appt 3 months Follow Up Appt 3 months [facility] Work Phone: Start: 05-19-2013 End: 08-04-2013 Pacer Clinic Pacer Clinic [facility] Work Phone: Start: 03-20-2013 End: 08-04-2013 Follow Up Appt 6 months Follow Up Appt 6 months [facility] Work Phone: Start: 03-20-2013 End: 03-20-2013 Follow Up Appt Other Follow Up Appt Other [facility] Work Phone: Start: 03-20-2013 End: 08-04-2013 PFM [facility] Work Phone: Start: 03-20-2013 End: 08-04-2013 Follow Up Appt 6 months Follow Up Appt 6 months [facility] Work Phone: Start: 03-20-2013 End: 03-20-2013 Follow Up Appt Other Follow Up Appt Other [facility] Work Phone: Start: 03-20-2013 End: 08-04-2013 PFM [facility] Work Phone: Start: 02-15-2013 End: 03-20-2013 Follow Up Appt 3 months Follow Up Appt 3 months [facility] Work Phone: Start: 02-15-2013 End: 03-20-2013 Pacer Clinic Pacer Clinic [facility] Work Phone: Start: 02-15-2013 End: 03-20-2013 Follow Up Appt 3 months Follow Up Appt 3 months [employer] Work Phone: Start: 02-15-2013 End: 03-20-2013 Pacer Clinic Pacer Clinic [employer] Work Phone: Start: 01-30-2013 End: 03-20-2013 *Hepatic Function Panel *Hepatic Function Panel [employer] Phone: Start: 01-30-2013 End: 03-20-2013 Lipid panel [AGGREGATE] *Lipid Profile [employer] Phone: Start: 01-30-2013 End: 03-20-2013 Thyroid stimulating hormone (TSH) *TSH [employer] Work Phone: Start: 01-30-2013 End: 08-17-2012 Thyroxine (T4) *T4 (Total) [employer] Phone: Start: 01-30-2013 End: 03-20-2013 Hepatic function 2000 panel - Serum or Plasma *Hepatic Function Panel [employer] Phone: Start: 01-30-2013 End: 03-20-2013 Lipid 1996 panel - Serum or Plasma *Lipid Profile [employer] Phone: Start: 01-30-2013 End: 03-20-2013 Thyrotropin [Units/volume] in Serum or Plasma *TSH [employer] Phone: Start: 01-30-2013 End: 08-17-2012 Thyroxine (T4) [Mass/volume] in Serum or Plasma *T4 (Total) [employer] Work Phone: Start: 10-01-2012 End: 03-20-2013 *Hepatic Function Panel *Hepatic Function Panel [employer] Phone: Start: 10-01-2012 End: 03-20-2013 Lipid panel [AGGREGATE] *Lipid Profile [employer] Phone: Start: 10-01-2012 End: 03-20-2013 Hepatic function 2000 panel - Serum or Plasma *Hepatic Function Panel [employer] Work Phone: Start: 10-01-2012 End: 03-20-2013 Lipid 1996 panel - Serum or Plasma *Lipid Profile [employer] Work Phone: Start: 08-10-2012 End: 08-17-2012 *BMP *BMP [employer] Work Phone: Start: 08-10-2012 End: 03-20-2013 *CBC with Differential *CBC with Differential [employer] Work Phone: Start: 08-10-2012 End: 08-10-2012 Ecg routine ecg w/least 12 lds w/i&r EKG (In office) [employer] Work Phone: Start: 08-10-2012 End: 08-10-2012 Follow Up Appt 6 months Follow Up Appt 6 months [employer] Work Phone: Start: 08-10-2012 End: 08-17-2012 Magnesium *Magnesium [employer] Work Phone: Start: 08-10-2012 End: 08-17-2012 Thyroid stimulating hormone (TSH) *TSH [employer] Work Phone: Start: 08-10-2012 End: 08-17-2012 Thyroxine (T4) *T4 (Total) [employer] Work Phone: Start: 08-10-2012 End: 08-17-2012 Basic metabolic 2000 panel - Serum or Plasma *BMP [employer] Work Phone: Start: 08-10-2012 End: 03-20-2013 CBC W Auto Differential panel - Blood *CBC with Differential [employer] Work Phone: Start: 08-10-2012 End: 08-10-2012 Ecg routine ecg w/least 12 lds w/i&r EKG (In office) [employer] Work Phone: Start: 08-10-2012 End: 08-10-2012 Follow Up Appt 6 months Follow Up Appt 6 months [employer] Work Phone: Start: 08-10-2012 End: 08-17-2012 Magnesium [Mass/volume] in Serum or Plasma *Magnesium [employer] Work Phone: Start: 08-10-2012 End: 08-17-2012 Thyrotropin [Units/volume] in Serum or Plasma *TSH [employer] Phone: Start: 08-10-2012 End: 08-17-2012 Thyroxine (T4) [Mass/volume] in Serum or Plasma *T4 (Total) [employer] Phone: Start: 05-02-2012 End: 05-02-2012 *Hepatic Function Panel *Hepatic Function Panel [employer] Phone: Start: 05-02-2012 End: 05-02-2012 Ecg routine ecg w/least 12 lds w/i&r EKG (In office) [employer] Work Phone: Start: 05-02-2012 End: 05-02-2012 Echocardiography Echocardiogram (complete) [employer] Phone: Start: 05-02-2012 End: 05-02-2012 Follow Up Appt 6 months Follow Up Appt 6 months [employer] Phone: Start: 05-02-2012 End: 05-02-2012 Lipid panel [AGGREGATE] *Lipid Profile [employer] Phone: Start: 05-02-2012 End: 05-02-2012 Nuclear stress test -adenosine Nuclear stress test -adenosine [employer] Work Phone: Start: 05-02-2012 End: 05-02-2012 Ecg routine ecg w/least 12 lds w/i&r EKG (In office) [employer] Phone: Start: 05-02-2012 End: 05-02-2012 Echocardiography Echocardiogram (complete) [employer] Phone: Start: 05-02-2012 End: 05-02-2012 Follow Up Appt 6 months Follow Up Appt 6 months [employer] Phone: Start: 05-02-2012 End: 05-02-2012 Hepatic function 2000 panel - Serum or Plasma *Hepatic Function Panel [employer] Phone: Start: 05-02-2012 End: 05-02-2012 Lipid 1996 panel - Serum or Plasma *Lipid Profile [facility] Work Phone: Start: 05-02-2012 End: 05-02-2012 Nuclear stress test -adenosine Nuclear stress test -adenosine [facility] Work Phone: Start: 01-06-2011 RSV High Risk: (Elderly (60+) or Population) (1 - 1-dose 75+ series) RSV High Risk: (Elderly (60+) or Population) (1 - 1-dose 75+ series) [facility] Start: 08-31-2009 Pneumococcal vaccination Pneumococcal Vaccine (2 of 2 - PCV) [facility] Start: 08-31-2009 Pneumococcal Vaccine: 65+ Years (2 of 2 - PCV) Pneumococcal Vaccine: 65+ Years (2 of 2 - PCV) [facility] Start: 01-06-2001 ADVANCE DIRECTIVE DISCUSSION ADVANCE DIRECTIVE DISCUSSION [facility] Start: 1996 RSV patients and/or patients aged 60+ years (1 - 1-dose 60+ series) RSV patients and/or patients aged 60+ years (1 - 1-dose 60+ series) [facility] Start: 01-06-1986 SHINGRIX VACCINE (1 of 2) SHINGRIX VACCINE (1 of 2) [facility] Start: 01-06-1986 Zoster Vaccines (1 of 2) Zoster Vaccines (1 of 2) [facility] Start: 01-06-1955 Urine microalbumin profile DTAP,TDAP,TD (1 - Tdap) [facility] Start: 01-06-1954 Diabetes mellitus screening Diabetes Screening [facility] Start: 1936 Annual wellness visit Welcome to Medicare Visit [facility] Start: 1936 Echocardiography Echocardiogram [facility] Start: 1936 Lipid panel Lipid Panel [facility] Start: 1936 Medicare Annual Wellness Visit Medicare Annual Wellness Visit (AWV) [facility] Basic metabolic 2008 panel with ionized calcium - Serum or Plasma [facility] End: 07-25-2024 Continuous Pulse oximetry, In Phase 1 Continuous Pulse oximetry, In Phase 1 Respiratory Care Routine Continuous until discontinued starting 07/25/2024 [facility] Service Area Work Phone: Comment on above: Continuous until discontinued starting 0 07/25/2024 End: 07-10-2024 CT Abdomen and Pelvis W contrast IV [facility] Work Phone: Comment on above: Once for 1 Occurrences starting 07/10/20 24 until 07/10/2024 Cystostomy cystotomy w/drainage Cystotomy Suprapubic Urinary retention Virtual [facility] OR Electrocardiographic procedure [facility] Patient Education [facility] Work Phone: Patient referral [facility] Work Phone: Surgical pathology study Surgica l Pathology Exam Pathology and Cytology Routine Elevated PSA 06/14/2024 12:45 PM EDT [facility] Work Phone: Urine culture [facility] Immunizations Immunization Date Immunization [facility] Influenza High-Dose Quadrivalent Dr. John Mckeon Work Phone: [facility] 09-05-2023 influenza virus vacc ine, unspecified formulation Asmita Zambrano MD Work Phone: [facility] Work Phone: 07-31-2020 influenza, injectabl e, quadrivalent, preservative free Dr. John Mckeon Work Phone: [facility] 07-31-2020 influenza, seasonal, injectable [facility] 07-31-2020 Fluad Quad (65yr up)(PF) 60 mcg (15 mcg x 4)/0.5mL IM syringe (flu vac [facility] Work Phone: 01-26-2020 tetanus toxoid, redu blanche diphtheria toxoid, and acellular pertussis vaccine, adsorbed [facility] 08-17-2018 Influenza virus vaccine [facility] 08-17-2018 Fluad 2017- 65yr up(PF)45 mcg(15 mcgx3)/0.5 mL intramuscular syringe (flu vac [facility] Work Phone: 11-05-2015 tetanus and diphther ia toxoids, adsorbed, preservative free, for adult use (2 Lf of tetanus toxoid and 2 Lf of diphtheria toxoid) [facility] 08-31-2008 influenza virus vacc ine, unspecified formulation Marino Roque Work Phone: [facility] 08-31-2008 pneumococcal polysaccharide vaccine, 23 valent Marino Roque Work Phone: [facility] Payers Date Payer Category Payer Self-pay [id number] 2023 Medicare [employer] [facility] MEDICARE [id number] 2023-Present [address] JANINE Gonzalez [id number] 2023 Medicare (Managed Care) [facility] MEDICARE [id number] 2023 Medicare [id number] 2014 Unknown [id number] 1936 Unknown [id number] 2.16.840.1.528543.3.579.2.1 243 1936 Unknown [id number] 2.16.840.1.345606.3.579.2.1 243 1936 Unknown [id number] 2.16.840.1.031067.3.579.2.1 244 193 Unknown [id number] 2.16.840.1.409835.3.579.2.1 244 1936 Unknown [id number] 2.16.840.1.894311.3.579.2.1 244 1936 Unknown [id number] 2.16.840.1.577325.3.579.2.1 244 1936 Unknown [id number] 2.16.840.1.714653.3.579.2.1 244 1936 Unknown [id number] 2.16.840.1.212685.3.579.2.1 244 1936 Unknown [id number] 2.16.840.1.669688.3.579.2.1 244 1936 Unknown [id number] 2.16840.1.034506.3.579.2.1 244 1936 Unknown [id number] 2.16.840.1.008183.3.579.2.1 244 1936 Unknown [id number] 2.16.840.1.228487.3.579.2.1 244 1936 Unknown [id number] 2.16.840.1.589834.3.579.2.1 244 1936 Unknown [id number] 2.16.840.1.747864.3.579.2.1 244 1936 Unknown [id number] 2.16.840.1.425050.3.579.2.1 244 1936 Unknown [id number] 2.16.840.1.387601.3.579.2.1 244 Unknown [id number] 2.16.840.1.715244.3.579.2.4 62 Unknown [id number] 2.16.840.1.938153.3.579.2.4 62 Unknown [id number] 2.16.840.1.405093.3.579.2.4 62 Unknown [id number] 2.16.840.1.070263.3.579.2.4 62 Unknown [id number] 2.16.840.1.225153.3.579.2.4 62 Unknown [id number] 2.16.840.1.371607.3.579.2.4 62 Unknown [id number] 2.16.840.1.215791.3.579.2.4 62 Unknown [id number] 2.16.840.1.621691.3.579.2.4 62 Unknown [id number] 2.16.840.1.151618.3.579.2.4 62 Unknown [id number] 2.16.840.1.334710.3.579.2.4 62 Unknown [id number] 2.16.840.1.158837.3.579.2.4 62 Unknown [id number] 2.16.840.1.292444.3.579.2.4 62 Unknown [id number] 2.16.840.1.594975.3.579.2.4 62 Unknown [id number] 2.16.840.1.436944.3.579.2.4 62 Unknown [id number] 2.16.840.1.046967.3.579.2.4 62 Unknown [id number] 2.16.840.1.403800.3.579.2.4 62 Social History Date Type Detail Facility Start: 06-12-2010 End: 04-27-2025 Tobacco smoking status [facility] Never smoker [facility] Start: 06-12-2010 Alcohol intake 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) [facility] Start: 1935 Sex Assigned At Not on file [facility] Start: 09-04-2021 End: 10-11-2023 Tobacco smoking status [facility] Unknown if ever smoked [facility] Start: 10-01-2019 None [facility] Start: 10-01-2019 With Family [facility] Start: 12-29-2018 Non-smoker [facility] Start: 1935 Sex Assigned At Male [facility] Start: 04-26-2024 Tobacco use and exposure Smokeless tobacco non-user [facility] Work Phone: Start: 04-26-2024 End: 02-26-2025 History of Social function [facility] Work Phone: Start: 04-26-2024 End: 02-26-2025 Tobacco use panel [facility] Work Phone: Start: 04-16-2024 End: 04-09-2025 Exposure to SARS-CoV-2 (event) Not sure [facility] Start: 07-25-2024 End: 04-24-2025 Alcoholic beverage intake Ex-drinker (finding) [facility] Work Phone: Start: 02-09-2025 Sex Male (finding) [facility] Medical Equipment Procedure Code Equipment Code Equipment Original Text Equipment Identifier Dates Laser Equipment (Contracted) - [id number] Start: 02-01-2014 Comment on above: Description: SENDY WHITFIELD LASER Goals Date Patient Goal Desired Activity /State Functional Status Date Assessment Result Facility 10-22-2023 Functional status Bedrest;Bathroom Privil ege [facility] Work Phone: 09-06-2023 Functional status Ambulates;Chair [facility] Work Phone: 09-05-2023 Functional status Ambulates [facility] Work Phone: Mental Status Date Assessment Result Facility 12-16-2024 Cognitive function Level Of Cons ciousness Awake;Alert;Appropriate [facility] Work Phone: 10-21-2023 Cognitive function Voice/Name [facility] Work Phone: 09-06-2023 Cognitive function Appropriate;Cooperativ e [facility] Work Phone: 10-21-2022 Cognitive function Voice/Name [facility] Work Phone: Clinical Notes 04-12-2017 to 04-27-2025 Note Date & Type Note Facility 04-27-2025 Discharge summary [facility] 04-27-2025 Discharge summary Note Date/Time April 27, 2025 10:41pm [facility] Medical Records Department [address] [place] [address] Emergency Department Summary 04/27/25 MR#: [id number] Acct: [id number] Name: RAJAT GUZMÁN Rep #:[id number] : [id number] From: Timoteo Mckenna DO PCP: Dr. John Mckeon, Status:REG ER Location: ED HPI History of Present Illness Chief Complaint: Nausea/Vomiting Detail of Chief Complaint: Nausea and diarrhea Informant: patient Narrative Narrative: Patient presents to the emergency department stating that he thinks he is dehydrated. Started with nausea and dry heaves last evening. He had 1 episode of diarrhea that he thought was black. Patient took Pepto at home. He denies abdominal pain. Denies fever. Denies sick contacts. Denies recent antibiotic usage. Patient does wear a chronic indwelling Rod catheter. He denies feversor chills or sweats. 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 General weakness Otitis media Elevated [...] Chest pain, precordial Atherosclerotic heart disease of [place] coronary artery without angina pectoris Dyspnea Fatigue Hypokalemia Benign prostatic hypertrophy SBO (small bowel obstruction) Home Medications ?Medication ?Instructions ?Recorded ?Last Taken ?Type aspirin 81 mg tablet,delayed 81 mg PO DAILY 05/23/24 U nknown History release (Adult Low Dose Aspirin) dupilumab 300 mg/2 mL subcutaneous 300 mg subcut Q2W 0 05/23/24 Unknown History pen injector nitroglycerin 0.4 mg sublingual 0.4 mg sublingual Q5M PRN Chest 05/23/24 Unknown Rx tablet Pain #25 tabs tamsulosin 0.4 mg capsule 0.4 mg PO QDAY 05/23/24 Unkn own History simvastatin 20 mg tablet 20 mg PO QHS for cholesterol #90 08/23/24 Unknown Rx TABLETS carvedilol 6.25 mg tablet 6.25 mg PO BID #60 tabs 11/01 Unknown Rx gabapentin 100 mg capsule 100 mg PO QDAY PRN 11/10/24 Unknown History oxybutynin chloride 5 mg 5 mg PO QDAY 11/10/24 Unknow n History tablet,extended release 24 hr prednisone 5 mg tablet 5 mg PO QDAY 11/10/24 Unknow n History ondansetron 4 mg disintegrating 4 mg PO Q8H PRN PRN Na usea #10 tabs 12/16/24 Unknown Rx tablet sacubitril 24 mg-valsartan 26 mg 1 tab PO BID #60 tabs 03/14/25 Unknown Rx tablet (Entresto) cephalexin 500 mg capsule 500 mg PO Q6 #28 CAPSULES Unknown Rx ondansetron 4 mg disintegrating 4 mg PO Q6H PRN nausea and 04/27/25 Unknown Rx tablet vomiting #10 tabs phenazopyridine 200 mg tablet 200 mg PO TID 6 doses #5 tabs 04/27/25 Unknown Rx (Pyridium) Allergy/AdvReac Type Severity Reaction Status Date / Time morphine Allergy Intermediate Rash Verified 04/27/25 20:05 zolpidem tartrate (From AdvReac Intermediate CONFUSION Verified 04/27/25 20:05 Ambien) Family History Mother CAD (coronary artery [...] of coronary artery bypass graft stent (~12/28/18) History of cardiac catheterization Hx of colonoscopy [...] vision or diplopia ENT ENT ED: Denies rhinorrhea or sore throat Cardiovascular Cardiovascular: Denies chest pain, orthopnea or racing heartbeat Respiratory/Chest Respiratory/Chest: Denies cough, dyspnea, dyspnea on exertion, orthopnea or sputum Gastrointestinal Gastrointestinal: Reports diarrhea, nausea and vomiting; Denies abdominal pain Genitourinary Genitourinary ED: Denies dysuria, hematuria or urinary frequency Musculoskeletal Musculoskeletal: Denies arthralgias, back pain, myalgias or neck pain Integumentary Denies abscess, Abrasions or rash Neurologic Neurologic: Denies headache(s) or weakness Psychiatric Psychiatric: Denies anxiety, depression or suicidal thoughts Endocrine Endocrinology: Denies polydipsia, polyphagia or polyuria Hematologic/Lymphatic Hematologic/Lymphatic: Denies easy bleeding, easy bruising or lymphadenopathy Allergic/Immunologic Allergic/Immunologic ED: Denies mouth swelling, tongue swelling or urticaria EXAM Physical Exam Const Vital Signs: 04/27/25 20:05 Temperature 98 F Temperature Source Temporal Pulse Rate 96 Respiratory Rate 14 Blood Pressure 157/74 H Blood Pressure Mean 101 Pulse Ox 98 Oxygen Delivery Method Room Air Positive well nourished and well developed General Appearance ED: well developed and NAD HEENT Reports TM's clear and moist mucous membranes normocephalic and atraumatic; Negative for trauma or tenderness Tympanic Membrane ED: Yes TM's clear Eyes PERRL and EOMs intact bilaterally General Eye ED: Negative for pale conjunctiva or scleral icterus Neck no lymphadenopathy, supple and no JVD General: Negative for tenderness Chest Wall inspection of chest normal and palpation of chest normal Chest: Negative for tenderness Resp normal respiratory effort and clear to auscultation bilaterally Effort and Inspection: Negative for respiratory distress or pain with movement Auscultation: Negative for rhonchi, wheezes or diminished lung sounds Cardio regular rate, regular rhythm, S1 normal heart sound, S2 normal heart sound and no murmurs Peripheral Pulses: pulses 2+ throughout GI normal to inspection, nondistended, normoactive bowel sounds, soft to palpation,non-tender, non-distended and no masses Back/Spine no CVA tenderness and no thoracic nor lumbar tenderness Extremity normal to inspection General Extremety ED: Negative for edema General Extremity: Negative for edema Neuro oriented x3, CN's II-XII intact bilaterally, no sensory deficits noted and gait normal Sensorium / Orientation: awake, alert, oriented to person, oriented to place andoriented to time Motor Exam: strength 5/5 throughout and strength abnormal Psych mental status grossly normal Skin no rashes or lesions noted and no wounds MDM MDM MDM Narrative Medical decision making narrative: Patient presents with nausea and dry heaves as well as 1 episode of diarrhea that started last evening. Patient denies fever or chills or sweats. He has indwelling Rod catheter. Denies sick contacts. Denies any abdominal pain. Clinically looks well. In the differential would be viral gastroenteritis versus UTI or other etiology. He is denying any chest pain. IV line established. CBC with differential obtained showed a white count of 9.8 with hemoglobin 12.2 and platelet count of 281. Chemistries unremarkable. BUN 13 and creatinine 0.9. LFTs were normal. Lipase normal at 15. Urinalysis positive for nitrites as well as 25-50 WBCs and +2 bacteria. Urine culture sent. Patient was started on Rocephin 1 g IV. Will treat with Keflex for home. Will treat with Pyridium. Will write a prescription for Zofran as well. He felt much improved after treatment with Zofran and IV fluids. Discharged to home stable condition. Lab Data Attestation: I reviewed the patient's lab results. Labs: Laboratory Results - last 24 hr 04/27/25 04/27/25 20:40 20:55 WBC 9.8 RBC 4.03 L Hgb 12.2 L Hct 36.0 L MCV 89.3 MCH 30.3 MCHC 33.9 RDW Std Deviation 43.9 RDW Coeff of Arleen 13.6 Plt Count 201 MPV 11.6 Immature Gran % (Auto) 0.400 Neut % (Auto) 71.1 H Lymph % (Auto) 19.6 Marinette % (Auto) 7.4 Eos % (Auto) 1.0 Baso % (Auto) 0.5 Absolute Neuts (auto) 7.0 Absolute Lymphs (auto) 1.92 Nucleated RBC % 0 Sodium 135 Potassium 4.2 Chloride 100 Carbon Dioxide 23.2 Anion Gap 12 BUN 13 Creatinine 0.90 Estim Creat Clear Calc 42.74 L Est GFR (MDRD) Non-Af 82 BUN/Creatinine Ratio 14.1 Glucose 285 H Calcium 9.2 Total Bilirubin 0.75 AST 30 ALT 15 Alkaline Phosphatase 65 Total Protein 7.3 Albumin 4.0 Globulin 3.3 Albumin/Globulin Ratio 1.2 Lipase 15 Urine Color Yellow Urine Clarity Sl. Cloudy Urine pH 6.0 Ur Specific Grayling 1.015 Urine Protein 30 H Urine Glucose (UA) 1000 H Urine Ketones 5 H Urine Occult Blood 25 H Urine Nitrite Positive H Urine Bilirubin Negative Urine Urobilinogen Normal Ur Leukocyte Esterase 500 H Urine RBC 0-5 SEEN Urine WBC 25-50 SEEN Ur Squamous Epith Cells 0 SEEN Urine Bacteria 2+ Urine Mucus 0 SEEN Discharge Plan Triage Chief Complaint: Nausea/Vomiting ED Provider: Timoteo Mckenna Dx/Rx/DC Orders Clinical Impression: Acute UTI, Diarrhea Instructions: UTIs, ED Vomiting (Adult) Prescriptions: New cephalexin 500 mg capsule 500 mg PO Q6 Qty: 28 0RF phenazopyridine [Pyridium] 200 mg tablet 200 mg PO TID Qty: 5 0RF ondansetron 4 mg tablet,disintegrating 4 mg PO Q6H PRN (Reason: nausea and vomiting) Qty: 10 0RF No Action tamsulosin 0.4 mg capsule 0.4 mg PO QDAY aspirin [Adult Low Dose Aspirin] 81 mg tablet,delayed release (DR/EC) 81 mg PO DAILY dupilumab 300 mg/2 mL pen injector 300 mg subcut Q2W nitroglycerin 0.4 mg tablet, sublingual 0.4 mg SUBLINGUAL Q5M PRN (Reason: Chest Pain) Qty: 25 3RF gabapentin 100 mg capsule 100 mg PO QDAY PRN oxybutynin chloride 5 mg tablet extended release 24hr 5 mg PO QDAY prednisone 5 mg tablet 5 mg PO QDAY carvedilol 6.25 mg tablet 6.25 mg PO BID Qty: 60 3RF Rx Instructions: must administer with a meal/food ondansetron 4 mg tablet,disintegrating 4 mg PO Q8H PRN PRN (Reason: Nausea) Qty: 10 0RF simvastatin 20 mg tablet 20 mg PO QHS Qty: 90 3RF Entresto 24-26 mg tablet 1 tab PO BID Qty: 60 11RF Primary Care Provider: John Mckeon Referrals: John Mckeon DO [Primary Care Provider] - 3-5 Days Print Language: Bahamian Disposition Disposition: Home, Self Care What to do if you have Problems For any increased pain, shortness of breath, bleeding, nausea or vomiting, chestpain, or any unexpected problems, contact your Primary Care Provider. Call [facility] ([phone]) or report to the closest Emergency Room. Call 911 if necessary. 04/27/252240 <Electronically signed by Timoteo Mckenna DO> Cosigner Signature (if applicable): CC: Dr. John Mckeon DO ~ Signed [facility] Work Phone: 1(198) 811-347706-24-2025 Evaluation + Plan note* Assessment & Plan Note - CORTEZ Hutchinson - 04/24/2025 3:04 PM EDTAssociated Problem(s): Urinary retention Stable. SP cath intact draining clear yellow urine. Plan for catheter change in May 2025. Encouraged fluids. [facility] Work Phone: 1(790) 625-862406-24-2025 Evaluation + Plan note* Assessment & Plan Note - CORTEZ Hutchinson - 04/24/2025 3:04 PM EDTAssociated Problem(s): Bladder spasm Stable. Continue oxybutynin. Encourage fluids. [facility] Work Phone: [phone] 554-152906-24-2025 Miscellaneous Notes* Assessment & Plan Note - CORTEZ Hutchinson - 04/24/2025 3:04 PM EDTAssociated Problem(s): Urinary retention Stable. SP cath intact draining clear yellow urine. Plan for catheter change in May 2025. Encouraged fluids. * Assessment & Plan Note - CORTEZ Hutchinson - 04/24/2025 3:04 PM EDT Associated Problem(s): Bladder spasm Stable. Continue oxybutynin. Encourage fluids. * Assessment & Plan Note - CORTEZ Hutchinson - 04/24/2025 3:03 PM EDT Associated Problem(s): Malignant neoplasm of prostate (Multi) [...] office in 6 months. [facility] Work Phone: 1(279) 776-954106-24-2025 Evaluation + Plan note* Assessment & Plan Note - CORTEZ Hutchinson - 04/24/2025 3:03 PM EDTAssociated Problem(s): Malignant neoplasm of prostate (Multi) Stable. [...] and follow-up in office in 6 months. [facility] Work Phone: 1(328) 825-668606-24-2025 History of Present illness Narrative* CORTEZ Hutchinson - 04/24/2025 1:30 PM EDT Images from the original note were not included. Urology [facility] Note Subjective Patient ID: Rajat Guzmán is a 89 y.o. male who presents for No chief complaint on file.. History of Present Illness Rajat is a 89 y.o. male who presents for follow-up for history of prostate cancer and urinary retention. Patient diagnosed with prostate cancer on 06/14/2024, [place] 9 on the right and 9 on the left. He did have a course of Casodex and Lupron 45 mg. Last Lupron injection was on 07/12/2024. 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 Per last note with Dr. Zambrano on 07/12/2024, patient was aware of need for follow-up on these 2items. At that visit with Dr. Zambrano, his PSA was 19.9. Suprapubic catheter was placed on 07/25/2024 for history of urinary retention. Due for SP cath change in May 2025. Patient had Rod placed for co ntinuous incontinence but did not want to learn [...] No pertinent surgical history. 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 male. Procedures The patient was prepped and draped in the standard surgical fashion. A 10cc syringe was used to deflate the balloon in the current Rod catheter. Upon deflation, the Rod was removed intact and disposed of. Betadine swab was used to clean the meatus. Lidocaine jelly was instilled into the urethra. A 16 [place] Rod was placed, with urine return into catheter tubing, the 10cc balloon was then inflated and checked for position. The catheter was then irrigated with a mixture of Betadine 5 ml andSaline 500 ml. A leg bag was then attached. FOLLOW UP ROD CHANGE IN 6 WEEKS Cosigned by Jian Jiménez MD MPH at 02/27/2025 4:24 PM EDT documented in this [facility] Work Phone: 1(425) 294-923103-05-2025 History of Present illness Narrative* Waleska Galdamez MA - 01/03/2025 2:15 PM EST Patient ID: Rajat Guzmán is a 89 y.o. male. Procedures The patient was prepped and draped in the standard surgical fashion. A 10cc syringe was used to deflate the balloon in the current Rod catheter. Upon deflation, the Rod was removed and disposed of. Betadine swab was used to clean the meatus. Lidocaine jelly was instilled into the urethra. A 16 [place] Rod was placed with a 10cc balloon which was inflated. This was then irrigated with a mixture of Betadine 5 ml and Saline 500 ml. A plug was then attached. SIZE 16FR ROD PLACED FOLLOW UP ROD CHANGE IN 6 WEEKS documented [facility] Work Phone: 1(758) 280-878902-12-2025 History of Present illness Narrative* Waleska Galdamez MA - 12/13/2024 3:15 PM EST Patient ID: Rajat Guzmán is [...] SIZE 16FR ROD PLACED [facility] Work Phone: 1(203) 377-611202-05-2025 History of Present illness Narrative* Liz Garcia MA - 12/06/2024 3:00 PM EST Subjective Patient ID: Rajat Guzmán is a 89 y.o. male. HPI Patient is here for a routine SP change. Patient complains of chronic leaking. Hx of prostate cancer. [place] 9. CT showed No evidence of METS but did show lung lesion and pancreatic cyst-PATIENTAWARE FOR FOR OF FOLLOW_UP. . Most recent [...] was changed and irrigated. 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 November 10 10:54am Dyslipidemia chronic November 10:54am Essential hypertension chronic [facility]2024 10:54am Presence of stent in coronary artery December, chronic November 10 10:54am [facility] Work Phone: 1([phone]) 408-365212-18-2024 History of Present illness Narrative* Waleska Galdamez [...] CHANGE IN 6 WEEKS documented [facility] Work Phone: [phone] Hospital Discharge instructions* Discharge Instructions* Char Zhu RN - 07/25/2024 12:33 PM EDT DO NOT plug catheter until you have seen Dr Zambrano for follow up visit and they have made first catheter change. * Attachments The following attachments cannot be sent through Care Everywhere. * How to Care for Your Suprapubic Urinary Catheter (Bahamian) documented in this [facility]Park[facility] Work Phone: [phone]) 695-351309-24-2024 Attending History and physical note* Asmita Zambrano MD - 07/25/2024 9:03 AM EDT H&P reviewed. The patient was examined and there are no changes to the H&P. Source Note - Asmita Zambrano MD - 07/12/2024 3:30 PM EDT Subjective Patient ID: Rajat Guzmán is a 89 y.o. male. HPI Patient is here for CT results and Lupron injection. Recent sx of prostate cancer. [place] 9. CT showed No evidence of METS [...] Encouraged fluid intake. F/U SP tube placement [facility] Work Phone: 1([phone]) 532-782409-24-2024 History and physical note* Asmita Zambrano MD - 07/25/2024 9:03 AM EDT H&P reviewed. The patient was examined and there are no changes to the H&P. Source Note - Asmita Zambrano MD - 07/12/2024 3:30 PM EDT Subjective Patient ID: Rajat Guzmán is a 89 y.o. male. HPI Patient is here for CT results and Lupron injection. Recent sx of prostate cancer. [place] 9. CT showed No evidence of METS [...] F/U SP tube placement [facility] Work Phone: 1(253) 398-279009-23-2024 Note* Preprocedure Instructions - Inga Ceron RN - 07/24/2024 1:24 PM EDT No outpatient medications have been marked as taking for the 07/25/24 encounter (Hospital Encounter). NPO Instructions: Nothing to eat or drink after midnight Additional Instructions: Will need certified driver examiner home [facility]09-23-2024 Miscellaneous Notes* Preprocedure Instructions - Inga Ceron RN - 07/24/2024 1:24 PM EDT No outpatient medications have been marked as taking for the 07/25/24 encounter (Hospital Encounter). NPO Instructions: Nothing to eat or drink after midnight Additional Instructions: Will need certified driver examiner home documented in this [facility]Park[facility] Work Phone: 1(830) 358-177209-11-2024 History of Present illness Narrative* Asmita Zambrano MD - 07/12/2024 3:30 PM EDT Subjective Patient ID: Rajat Guzmán is a 89 y.o. male. HPI Patient is here for CT results and Lupron injection. Recent sx of prostate cancer. [place] 9. CT showed No evidence of METS [...] F/U SP tube placement documented in this [facility]Park[facility] Work Phone: 1(193) 470-408708-28-2024 History of Present illness Narrative* Asmita Zambrano [...] Encouraged fluid intake. F/U documented in this [facility]Park[facility] Work Phone: 1(210) 192-267808-14-2024 History of Present illness Narrative* Waleska Galdamez [...] 19.90 (05/17/2024) ABNORMAL LANDON. documented in this encounterPark[facility] Work Phone: 1(863) 507-746307-17-2024 History of Present illness Narrative* Waleska Galdamez [...] CHECK PVR AND DISCUSS. documented in this [facility] Work Phone: 1([phone]) 611-168106-26-2024 History of Present illness Narrative* Asmita Zambrano MD - 04/26/2024 1:45 PM EDT Subjective Patient ID: Rajat Guzmán is a 89 y.o. male. HPI Patient is here to establish for second opinion for BPH. Hx of incomplete emptying. He was seeing [facility] prior. He states he was asked to learn CIC but he does not want to do this. He does not want permanent rod either. . Rod was placed 6 weeks ago and still has this today. . Hx of TURP last year at [facility]. This did not help urinary sx. He [...] day to check PVR documented in this [facility] Work Phone: 1(111) 784-179512-21-2023 Progress note Author Faisal Barth [facility] October 21, 2023 7:23am Note Date/Time October 21, 2023 7:23am [facility] Medical Records Department [address] [place] [address] Progress Note - Urology 10/21/23722 MR#: [id number] Acct: [id number] Name: RAJAT GUZMÁN Rep #:[id number] : 1935 88 From: Faisal Barth MD PCP: Dr. John Mckeon, DO Status:ADM [facility] Location: [place] [address] Subjective Subjective Status post TURP for regrowth [...] Cosigner Signature (if applicable): CC: ~ Signed [facility] Work Phone: 1(725) 173-296012-20-2023 Discharge summary Author Faisal Barth [facility] October 20, 2023 1:07pm Note Date/Time October 20, 2023 1:07pm [facility] Medical Records Department [address] [place] [address] Instructions for Home/Discharge Instructions 10/20/23 1307 MR#: [id number] Acct: [id number] Name: RAJAT GUZMÁN Rep #:[id number] : 1935 88 From: Faisal Barth MD PCP: Dr. John Mckeon, DO Status:REG [facility] Discharge Instructions Diet Discharge Diet: No restrictions Activity Discharge Activity: Return to Normal Activity and May Not Drive (while taking narcotic pain medications.) Dressing / Incision Call your doctor if you observe: Fever of 101 or Higher Follow Up Care Please Follow Up With: Faisal Barth MD When: Call [phone] for an appointment Test Results: Test results [...] MD>Faisal Barth MD CC: Dr. John Mckeon, ~ Signed [facility] Work Phone: 1([phone]) 944-585112-20-2023 History and physical note Author Faisal Barth [facility] October 20, 2023 1:07pm Note Date/Time October 20, 2023 1:07pm [facility] Medical Records Department [address] [place] [address] History & Physical Exam 10/20/23 1306 MR#: [id number] Acct: [id number] Name: RAJAT GUZMÁN Rep #:[id number] : 1935 88 From: Faisal Barth MD PCP: Dr. 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 Faisal Barth MD; Dr. John Mckeon DO~ Signed [facility] Work Phone: 1(274) 866-960812-20-[address] [facility] 10-12-2023 Hospital Discharge instructionsAmbulatory Orders* 12 Lead EKG [[facility]] Time Frame: 10/12/23, Location: None Selected [facility] Work Phone: 1(745) 989-331711-06-2023 Discharge summary Author Manisha Varela [facility] September 06, 2023 3:13pm Note Date/Time September 06, 2023 3 :07pm [facility] Medical Records Department [address] [place] [address] Instructions for Home/Discharge Instructions 09/06/23 1504 MR#: [id number] Acct: [id number] Name: RAJAT GUZMÁN Rep #:[id number] : 1935 88 From: Manisha Varela MD PCP: Dr. Jonh Mckeon, DO Status:[facility]M [facility] Discharge Instructions Diet Discharge Diet: [...] MD; Dr. Manisha Varela MD ~ Signed [facility] Work Phone: 1([phone]) 395-222811-05-2023 Progress note Author Natanael Nowak [facility] September 05, 2023 9:01am Note Date/Time September 05, 2023 9 :01am [facility] Medical Records Department [address] [place] [address] Progress Note - Hospitalist 09/05/23 0900 MR#: [id number] Acct: [id number] Name: RAJAT GUZMÁN [place] Rep #:[id number] : 1935 88 From: Natanael martinez MD PCP: Dr. John Mckeon DO Status:ADM [place] Location: [place] [address] Subjective Subjective Doing well, feels better today. [...] Sl. Cloudy, Urine pH 6.0, Ur Specific [place] 1.020, Urine Protein 15 H, Urine Glucose [...] 77.7 H, Lymph % (Auto) 11.1 L, [place] % (Auto) 10.2 H, Eos % (Auto) [...] % (Auto) 64.8, Lymph % (Auto) 21.3, [place] % (Auto) 11.3 H, Eos % (Auto) 1.9, Baso % (Auto) 0.5, Absolute Neuts (auto)5.3, Absolute Lymphs (auto) 1.75, Nucleated RBC % 0 Radiography Diagnostic Testing: Radiology Impression Abdomen/Pelvis CT 09/04/23 16:40 IMPRESSION: Suspect bladder outlet obstruction with mild left ureteral dilatation and hydronephrosis, likely from the prostatic enlargement.. Electronically Signed: Leroy Barrett MD at 17:36 EDT Reading Location ID and State: [id number] / [employer] Tel , Service support , Chest X-Ray 09/04/23 16:52 IMPRESSION: No active disease. Electronically Signed: Leroy Barrett MD at 17:27 EDT Reading Location ID and State: [id number] / [employer] Tel , Service support , Physical Exam [...] kidney injury): (2) Atherosclerotic heart disease of [place] coronary artery without angina pectoris: QUALIFIERS: [place] vs. transplanted heart: [place] heart QualifiedCode(s): I25.10 - Atherosclerotic heart disease of [place] coronary artery without angina pectoris; I25.10 - Atherosclerotic heart disease of [place] coronary artery without angina pectoris; I25.10 - Atherosclerotic heart disease of [place] coronary artery without angina pectoris (3) Cardiomyopathy, [...] DVT: Heparin Charges/Coding Visit Charges Inpatient E&M: 95035 Subs Hosp L2 09/05/23 0901 <Electronically signed by Natanael Nowak MD> Cosigner Signature (if applicable): CC: ~ Signed [facility] Work Phone: 1(759) 473-981011-04-2023 History and physical note Author Manisha Varela [facility] September 04, 2023 6:33pm Note Date/Time September 04, 2023 6 :23pm [facility] Medical Records Department [address] [place] [address] H&P Exam - Hospitalist 09/04/23 1820 MR#: [id number] Acct: [id number] Name: RAJAT GUZMÁN Rep #:[id number] : 1935 88 From: Manisha Varela MD PCP: Dr. John Mckeon, DO Status:ADM WESTLEY Location: 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 Hehad a [...] home, denies other complaints at this time. [facility] Medical History (Updated 09/04/23 @ 18:[address] 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 Cloudy, Urine pH 6.0, Ur Specific Gray[place] 1.020, Urine Protein 15 H, Urine Glucose [...] 77.7 H, Lymph % (Auto) 11.1 L, Marin[place] % (Auto) 10.2 H, Eos % (Auto) [...] 17:36 EDT Reading Location ID and State: [id number] / [employer] Tel , Service support , Chest X-Ray 09/04/23 16:52 IMPRESSION: No active disease. Electronically Signed: Leroy Barrett MD at 17:27 EDT Reading Location ID and State: [id number] / [employer] Tel , Service support , Assessment & Plan Assessment/Plan (1) SINGH (acute kidney injury): (2) Atherosclerotic heart disease of [place] coronary artery without angina pectoris: QUALIFIERS: [place] vs. transplanted heart: [place] heart QualifiedCode(s): I25.10 - Atherosclerotic heart disease of [place] coronary artery without angina pectoris; I25.10 - Atherosclerotic heart disease of [place] coronary artery without angina pectoris; I25.10 - Atherosclerotic heart disease of [place] coronary artery without angina pectoris (3) Cardiomyopathy, [...] Varela MD Charges/Coding Visit Charges Inpatient E&M: 35282 Init Hosp L2 09/04/23 1833 <Electronically signed by Manisha Varela MD> Cosigner Signature (if applicable): CC: Dr. John Mckeon, DO; Dr. Manisha Varela MD~ Signed [facility] Work Phone: 1(879) 110-443711-04-2023 Discharge summary Author Murray Morgan [facility] September 04, 2023 6:24pm Note Date/Time September 04, 2023 3 :45pm [facility] Medical Records Department [address] [place] [address] Emergency Department Summary 09/04/23 MR#: [id number] Acct: [id number] Name: RAJAT GUZMÁN Rep #:[id number] : 1935 88 From: Murray Morgan MD PCP: Dr. John Mckeon, DO Status:ADM [place] Location: [place] LL170-9 HPI <MORTEZA Staton - Last Filed: 09/04/23 18:05> History of Present Illness Chief Complaint: Complaint Narrative Narrative: Patient is a 88-year-old male with history of AL, CAD, cardiomyopathy who presents to the emergency [...] well however denies any fever or chills. 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 Cloudy Urine pH 6.0 Ur Specific Grayling 1.020 Urine Protein 15 H Urine Glucose [...] 17:36 EDT Reading Location ID and State: [employer] / [employer] Tel , Service support , Chest X-Ray 09/04/23 16:52 IMPRESSION: No active disease. Electronically Signed: Leroy Barrett MD at 17:27 EDT Reading Location ID and State: [id number] / [employer] Tel , Service support , Treatment and [...] Morgan MD - Last Filed: 09/04/23 18:24> [facility] MDM Narrative Medical decision making narrative: [...] 77.7 H Lymph % (Auto) 11.1 L Marinette % (Auto) 10.2 H Eos % (Auto) [...] Sl. Cloudy Urine pH 6.0 Ur Specific Grayling 1.020 Urine Protein 15 H Urine Glucose [...] 17:36 EDT Reading Location ID and State: [id number] / [employer] Tel , Service support , Chest X-Ray 09/04/23 16:52 IMPRESSION: No active disease. Electronically Signed: Leroy Barrett MD at 17:27 EDT , Management Discussion w/another healthcare provider: Hospitalist and Inspector Weights And Measures (Dr. Barth) Discharge Plan Triage Chief Complaint: [...] your Primary Care Provider. Call [facility] ([phone]) or report to the closest Emergency Room. Call 911 if necessary. 09/04/23 182 <Electronically signed by Murray Morgan MD> Cosigner Signature (if applicable): 09/04/23 180 <Electronically signed by Robbi PRO> CC: Dr. John Mckeon, ~ Signed [facility] Work Phone: 1(689) 207-458111-04-2023 Discharge summary Author Murray Morgan [facility] September 04, 2023 6:24pm Note Date/Time September 04, 2023 3 :45pm [facility] Medical Records Department [address] [place] [address] Emergency Department Summary 09/04/23 MR#: [id number] Acct: [id number] Name: RAJAT GUZMÁN Rep #:[id number] : 1935 88 From: Murray Morgan MD PCP: Dr. John Mckeon, Status:ADM WESTLEY Location: [facility] HT643-9 HPI <MORTEZA Staton - Last Filed: 09/04/23 18:05> History of Present Illness Chief Complaint: Complaint Narrative Narrative: Patient is a 88-year-old male with history of AL, CAD, cardiomyopathy who presents to the emergency [...] well however denies any fever or chills. 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 Cloudy Urine pH 6.0 Ur Specific Grayling 1.020 Urine Protein 15 H Urine Glucose [...] Morgan MD - Last Filed: 09/04/23 18:24> MDM MDM Narrative Medical decision making narrative: Dr. [...] 77.7 H Lymph % (Auto) 11.1 L [place] % (Auto) 10.2 H Eos % (Auto) [...] Sl. Cloudy Urine pH 6.0 Ur Specific Grayling 1.020 Urine Protein 15 H Urine Glucose [...] 17:36 EDT Reading Location ID and State: [id number] / [employer] Tel , Service support , Chest X-Ray 09/04/23 16:52 IMPRESSION: No active disease. Electronically Signed: Leroy Barrett MD at 17:27 EDT Reading Location ID and State: [id number] / [employer] Tel , Service support , Management Discussion w/another healthcare provider: Hospitalist and Inspector Weights And Measures (Dr. Barth) Discharge Plan Triage Chief Complaint: [...] problems, contact your Primary Care Provider. Call [facility] ([phone]) or report to the closest Emergency Room. Call 911 if necessary. 09/04/23 1244 <Electronically signed by Murray Morgan MD> Cosigner Signature (if applicable): 09/04/23 180 <Electronically signed by Robbi PRO> CC: Dr. John Mckeon, DO ~ Signed [facility] Work Phone: 1(637) 393-199902-26-[address] Morgan [facility] December 27, 2022 11:52pm Note Date/Time December 27, 2022 9:33pm [facility] Medical Records Department [address] [place] [address] Emergency Department Summary 12/27/22 MR#: [id number] Acct: [id number] Name: RAJAT GUZMÁN Rep #:[id number] : 1935 87 From: Murray Morgan MD [...] facetectomy with a mass over the vasectomysite. 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 Cloudy Urine pH 7.0 Ur Specific Grayling 1.010 Urine Protein 15 H Urine Glucose [...] 3. Pancreatic cyst. ACR White Paper guidelines (aure Meraz al. JACR 2017; 14(7):911-923) suggest a contrast-enhanced, pancreas-protocol abdominal CT or MR in 2 years. 4. Small hiatal hernia. 5. Right renal cyst. Follow-up is not indicated per ACR guidelines. 6. Mild biliary duct dilation consistent with cholecystectomy. Electronically Signed: Mily Zavala MD at 23:15 EST , Discharge Plan Triage Chief Complaint: Abd [...] Referrals: John Mckeon DO [Med Staff - Electorate Officer] - 2 Days Shailesh Mancini MD [Primary [...] your Primary Care Provider. Call [facility] ([phone]) or report to the closest Emergency Room. Call 911 if necessary. 12/27/22 2352 <Electronically signed by Murray Morgan MD> Cosigner Signature (if applicable): CC: Dr. John Mckeon DO; Dr. Shailesh Mancini MD ~ Signed [facility] Work Phone: 1(222) 303-914002-26-2023 Hospital Discharge instructions Additional Instructions Follow-up with Dr. Mckeon in the next 2 to 3 days. Return to the emergency department with fever, increased pain, new or worsening symptoms.[facility] Work Phone: 1(968) 302-545906-12-2017 Fall risk bquwapyqqt9416/06/12[facility] Work Phone: Discharge summary Author Manisha Varela [facility] September 06, 2023 3:14pm Note Date/Time September 06, 2023 3 :14pm [facility] Medical Records Department [address] [place] [address] Discharge Summary 09/06/23 1513 MR#: [id number] Acct: [id number] Name: RAJAT GUZMÁN Rep #:[id number] : 1935 88 From: Manisha Varela MD PCP: Dr. John Mckeon DO Status:ADM WESTLEY [facility] Date of Admission: 09/04/23 Date of Discharge: 09/06/23 Primary Care Physician: Dr. John Mckeon DO Reason For Visit: UTI, SINGH, GENERAL WEAKNESS Diagnosis Discharge Diagnosis (1) SINGH (acute kidney injury): Status: Acute Code(s): N17.9 - Acute kidney failure, unspecified (2) Atherosclerotic heart disease of [place] coronary artery without angina pectoris: Status: Chronic Code(s): I25.10 - Atherosclerotic heart disease of [place] coronary artery without angina pectoris Qualifiers: [place] vs. transplanted heart: [place] heart Qualified Code(s): I25.10 -Atherosclerotic heart disease of [place] coronary artery without angina pectoris;I25.10 - Atherosclerotic heart disease of [place] coronary artery without angina pectoris; I25.10 - Atherosclerotic heart disease of [place] coronary artery without angina pectoris (3) Cardiomyopathy, [...] mg chewable tablet 81 mg PO DAILY [facility] 03/05/16 nitroglycerin 0.4 mg sublingual tablet 0.4 [...] with dual AICD, BPH, hypertension presented to [facility] 09/04/2023 with generalized weakness. Hehad a [...] Self Care Charges/Coding Visit Charges Inpatient E&M: 31406 Disch Hosp >30min 09/06/23 1514 <Electronically signed by Manisha Varela MD> Cosigner Signature (if applicable): CC: Dr. John Mckeon DO; Dr. Manisha Varela MD~ Signed [facility] Work Phone: Evaluation note* Diagnosis Onset Date Resolution Status Cardiomyopathy, ischemic chr onic Chronic systolic congestive heart failure chronic Dual ICD (implantable 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 History of placement of internal cardiac defibrillator [facility] Work Phone: Evaluation note* Diagnosis Onset Date Resolution Status Cardiomyopathy, ischemic chr onic Chronic systolic congestive heart failure chronic Dual ICD (implantable 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 History of placement of inte rnal cardiac defibrillator chronic Atherosclerotic heart diseas e of [place] coronary artery without angina pectoris chronic Cardiomyopathy, ischemic chr onic Dyspnea chronic Essential hypertension chron ic History of placement of inte rnal cardiac defibrillator chronic Pure hypercholesterolemia [facility] Stented coronary artery December, [facility] Work Phone: Evaluation note* Diagnosis Onset Date Resolution Status Atherosclerotic heart diseas e of [place] coronary artery without angina pectoris chronic Cardiomyopathy, ischemic chr onic Dyspnea chronic Essential hypertension chron ic History of placement of inte rnal cardiac defibrillator chronic Pure hypercholesterolemia [facility] Stented coronary artery December, [facility] Cardiomyopathy, ischemic chr onic Chronic systolic congestive heart failure chronic Dual ICD (implantable 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 History of placement of inte rnal cardiac defibrillator [facility] Work Phone: Evaluation note* Diagnosis Onset Date Resolution Status Cardiomyopathy, ischemic chr onic Chronic systolic congestive heart failure chronic Dual ICD (implantable 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 Atherosclerotic heart diseas e of [place] coronary artery without angina pectoris chronic Cardiomyopathy, ischemic chr onic Essential hypertension chron ic History of placement of inte rnal cardiac defibrillator chronic Pure hypercholesterolemia joss [facility]: [facility]* Diagnosis Onset Date Resolution Status Dual ICD (implantable 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 History of placement of internal cardiac defibrillator chronic [facility] Work Phone: Evaluation note* Diagnosis Onset Date Resolution Status Cardiomyopathy, ischemic chr onic Chronic systolic congestive heart failure chronic Dual ICD (implantable 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 Cardiomyopathy, ischemic chr onic Chronic systolic congestive heart failure chronic Coronary artery disease sas programmer elizabeth Dual ICD (implantable 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 Dyslipidemia chronic Essential hypertension chron ic Presence of stent in coronary artery December, chronic [facility] Work Phone: Evaluation noteNo assessment information available [facility] Work Phone: Evaluation note* Diagnosis Onset Date Resolution Status Acute dehydration acute Acute metabolic encephalopathy acute SINGH (acute kidney injury) ac moy Episode of generalized weakness acute Urinary retention acute UTI (urinary tract infection) acute Atherosclerotic heart diseas e of [place] coronary artery without angina pectoris chronic Cardiomyopathy, 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 [facility] Work Phone: Evaluation note* Diagnosis Onset Date Resolution Status Urinary retention acute UTI (urinary tract infection) acute Atherosclerotic heart diseas e of [place] coronary artery without angina pectoris chronic Cardiomyopathy, 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 Acute dehydration resolved Acute metabolic encephalopathy resolved SINGH (acute kidney injury) re solved Episode of generalized weakness resolved [facility] Work Phone: Evaluation note* Diagnosis Onset Date Resolution Status Urinary retention acute UTI (urinary tract infection) acute Atherosclerotic heart diseas e of [place] coronary artery without angina pectoris chronic Cardiomyopathy, [...] Presence of stent in coronary artery December, [facility] Work Phone: Evaluation note* Diagnosis Benign prostatic hyperplasia with lower urinary tract symptoms, symptom details unspecified Retention of urine Unspecified retention of urine Nocturia Abnormal digital rectal exam documented in this encounter [facility] Work Phone: Evaluation note* Diagnosis Incomplete bladder emptying- Primary documented in this encounter [facility] Work Phone: Evaluation note* Diagnosis Elevated PSA- Primary Elevated prostate specific antigen (PSA) documented in this encounter [facility] Work Phone: Evaluation note* Diagnosis Elevated PSA Elevated prostate specific antigen (PSA) Abnormal digital rectal exam Malignant neoplasm of prostate (Multi) Malignant neoplasm of prostate Retention of urine Unspecified retention of urine documented in this encounter [facility] Work Phone: Evaluation note* Diagnosis Malignant neoplasm of prostate (Multi) Malignant neoplasm of prostate documented in this encounter [facility] Work Phone: Evaluation note* Diagnosis Malignant neoplasm of prostate (Multi) Malignant neoplasm of prostate Abnormal digital rectal exam Elevated PSA Elevated prostate specific antigen (PSA) Retention of urine Unspecified retention of urine Urinary retention- Primary Unspecified retention of urine documented in this encounter [facility] Work Phone: Evaluation note* Diagnosis Urinary retention- Primary Unspecified retention of urine Urinary retention Unspecified retention of urine documented in this encounter [facility] Work Phone: Evaluation note* Diagnosis Urinary retention Unspecified retention of urine documented in this encounter [facility] Work Phone: Evaluation note* Diagnosis Urinary retention Unspecified retention of urine Bladder spasm Hypertonicity of bladder Malignant neoplasm of prostate (Multi) Malignant neoplasm of prostate documented in this encounter [facility] Work Phone: Evaluation note* Diagnosis Bladder spasms- Primary Hypertonicity of bladder Urinary retention Unspecified retention of urine documented in this encounter [facility] Work Phone: Evaluation note* Diagnosis Urinary retention Unspecified retention of urine documented in this encounter [facility] Work Phone: Evaluation note* Diagnosis Urinary retention Unspecified retention of urine documented in this encounter [facility] Work Phone: Evaluation note* Diagnosis Prostate cancer (Multi)- Primary Malignant neoplasm of prostate Urinary retention Unspecified retention of urine Bladder spasm Hypertonicity of bladder Malignant neoplasm of prostate (Multi) Malignant neoplasm of prostate Urinary retention Unspecified retention of urine documented in this encounter [facility] Work Phone: History and physical note Author Manisha Varela [facility] September 04, 2023 6:33pm Note Date/Time September 04, 2023 6 :23pm [facility] Medical Records Department [address] [place] [address] H&P Exam - Hospitalist 09/04/23 1820 MR#: [id number] Acct: [id number] Name: RAJAT GUZMÁN Rep #:[id number] : 1935 88 From: Manisha Varela MD PCP: Dr. John Mckeon, DO Status:ADM WESTLEY Location: [facility] BZ761-3 HPI - General General Date of Admission: 09/04/23 Date of Service: 09/04/23 Chief Complaint: Gen weakness, abd pain, confusion HPI Narrative RAJAT GUZMÁN, is a 88-year-old male history of coronary artery disease, heart failure with reduced ejection fraction with dual AICD, BPH, hypertension presented to [facility] 09/04/2023 with generalized weakness. Hehad a [...] home, denies other complaints at this time. [facility] Medical History (Updated 09/04/23 @ 18:[address] 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 Cloudy, Urine pH 6.0, Ur Specific Grayling 1.020, Urine Protein 15 H, Urine Glucose [...] 77.7 H, Lymph % (Auto) 11.1 L, [place] % (Auto) 10.2 H, Eos % (Auto) [...] 17:36 EDT Reading Location ID and State: [id number] / [employer] Tel , Service support , Chest X-Ray 09/04/23 16:52 IMPRESSION: No active disease. Electronically Signed: Leroy Barrett MD at 17:27 EDT Reading Location ID and State: [id number] / [employer] Tel , Service support , Assessment & Plan Assessment/Plan (1) SINGH (acute kidney injury): (2) Atherosclerotic heart disease of [place] coronary artery without angina pectoris: QUALIFIERS: [place] vs. transplanted heart: [place] heart QualifiedCode(s): I25.10 - Atherosclerotic heart disease of [place] coronary artery without angina pectoris; I25.10 - Atherosclerotic heart disease of [place] coronary artery without angina pectoris; I25.10 - Atherosclerotic heart disease of [place] coronary artery without angina pectoris (3) Cardiomyopathy, [...] Varela MD Charges/Coding Visit Charges Inpatient E&M: 05922 Init Hosp L2 09/04/23 1833 <Electronically signed by Manisha Varela MD> Cosigner Signature (if applicable): CC: Dr. John Mckeon DO; Dr. Manisha Varela MD~ Signed [facility] Work Phone: Hospital Discharge instructions Additional Instructions Implant Used?: [facility] Work Phone: Reason for referral (narrative)No reason for referral information availableWEast [facility] Work Phone: Reason for visit Narrative* Auth/Cert Specialty Diagnoses / Procedures Referred By Krys rangel Referred To Contact Diagnoses Urinary retention Urinary retention [R33.9] Procedures [place] CYSTOSTOMY CYSTOTOMY W/DRAINAGE Cystotomy Suprapubic Asmita Zambrano MD [address] [place] [address] [address] Referral ID Status Reason Start Date Expiration Date Visits Re quested Visits Authorized [id number] 1 1 [facility] Work Phone: Reason for visit Narrative* /Urology (Routine) - Authorized Specialty Diagnoses / Procedures Referred By Krys rangel Referred To Contact Urology Diagnoses Other retention of urine Procedures [place] CHANGE CYSTOSTOMY TUBE SIMPLE [address] [address] Phone: tel: fax: Asmita Zambrano MD [address] [place] [address] Phone: tel: fax: Referral ID Status Reason Start Date Expiration Date V isits Requested Visits Authorized [id number] Authorized 11/28/2024 11/28/2025 1 1 [facility] Work Phone: Rerkrb for visit Narrative* Consultation (Routine) - Authorized Specialty Diagnoses / Procedures Referred By Krys t Referred To Contact Urology Diagnoses Urinary retention Procedures Follow Up In Urology Jian Caro MD [facility] [address] [place] [address] Phone: tel: fax: Referral ID Status Reason Start Date Expiration Date V isits Requested Visits Authorized [id number] Authorized 04/09/2025 04/09/2026 1 1 [facility] Work Phone: Advance Directives Documents on File Type Date Recorded Patient Informatics Coordinator Expl anation Advance Directive(s) 06/10/2016 3:34 PM Advance Directive Response Recorded Date/ Time Advance Directives Yes September 6:49pm Living Will No November 15 7:07pm Power of Rug Scratcher No November 15, 2020 7:07pm Advance Directive Response Recorded Date/ Time Advance Directives Yes September 5:49pm Living Will No November 15 6:07pm Power of Rug Scratcher No November 15, 2020 6:07pm Advance Directive Response Recorded Date/ Time Advance Directives Yes September 5:49pm Living Will No October 16, 022 1:05pm Power of Rug Scratcher No October 16, 2022 1:05pm Advance Directive Response Recorded Date/ Time Name of Medical Power of Rug Scratcher unknown December 27, 2022 9:53pm Advance Directives Yes September 5:49pm Living Will Yes December 27 023 9:53pm Power of Rug Scratcher Yes December 27, 2022 9:53pm Advance Directive Response Recorded Date/ Time Name of Medical Power of Rug Scratcher unknown December 27, 2022 10:53pm Name of Medical Power of Rug Scratcher UNKNOWN January 06, 2023 10:21am Advance Directives Yes September 6:49pm Living Will No January 06, 2023 10:21am Power of Rug Scratcher Yes January 06 10:21am Advance Directive Response Recorded Date/ Time Advance Directives Yes September 6:49pm Living Will No January 06, 2023 10:21am Power of Rug Scratcher Yes January 06 10:21am Advance Directive Response Recorded Date/ Time Advance Directives Yes September 6:49pm Living Will No September 04 4:38pm Power of Rug Scratcher No September 04, 2023 4:38pm Advance Directive Response Recorded Date/ Time Advance Directives Yes September 5:49pm Living Will No September 04 7:17pm Power of Rug Scratcher No September 04, 2023 7:17pm Advance Directive Response Recorded Date/ Time Advance Directives Yes September 5:49pm Living Will No October 20, 023 4:11pm Power of Rug Scratcher No October 20, 2023 4:11pm Advance Directive Response Recorded Date/ Time Advance Directives Yes September 5:49pm Living Will No October 11, 2 023 1:45pm Power of Rug Scratcher No October 11, 2023 1:45pm Date Activated [...] Do you have a Healthcare Power of Rug Scratcher? Yes March 30, 2024 3:36am Living Will Yes December 16, 025 4:11pm Do you have a Healthcare Power of Rug Scratcher? Yes December 16, 2024 4:11pm Name of Medical Power of Rug Scratcher boogie bravo and michelle campos December 16, 2024 4:11pm Advance Directives Yes September 6:49pm Advance Directive Response Recorded Date/ Time Do you have a Healthcare Power of Rug Scratcher? No April 27, 2025 8:28pm Advance Directives Yes September 6:49pm Chief Complaint [...] internal cardiac defibrillator Atherosclerotic heart disease of [place] coronary artery without angina pectoris Cardiomyopathy, ischemic Dyspnea Essential hypertension History of placement of internal cardiac defibrillator Pure hypercholesterolemia Stented coronary artery Chief Complaint 6 M FU 3 mos remote ICD f/u Dizziness, on Entresto L.Lorson Reason for Visit Atherosclerotic hear t disease of [place] coronary artery without angina pectoris Cardiomyopathy, ischemic [...] cardioverter-defibrillator) in place Atherosclerotic heart disease of [place] coronary artery without angina pectoris Cardiomyopathy, ischemic Essential hypertension History of placement of internal cardiac defibrillator Pure hypercholesterolemia Stented coronary artery Chief Complaint 3 mos remote ICD f/u 1 Y FU cysto with dilation of urethral stricture Reason for Visit Cardiomyopathy, isch emic Chronic systolic congestive heart failure 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 Atherosclerotic heart disease of [place] coronary artery without angina pectoris Cardiomyopathy, ischemic [...] (urinary tract infection) Atherosclerotic heart disease of [place] 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 Lorson E ORDERS INT LABS PSA UTI, SINGH, GENERAL WEAKNESS UTI, SINGH, GENERAL WEAKNESS Reason for Visit Acute dehydration Acute metabolic encephalopathy SINGH (acute kidney injury) Episode of generalized weakness Urinary retention UTI (urinary tract infection) Atherosclerotic heart disease of [place] coronary artery without angina pectoris Cardiomyopathy, ischemic [...] (urinary tract infection) Atherosclerotic heart disease of [place] coronary artery without angina pectoris Cardiomyopathy, 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 Chief Complaint BP Check per L. Lors on E ORDERS INT LABS PSA UTI, SINGH, GENERAL WEAKNESS UTI, SINGH, GENERAL WEAKNESS UTI, SINGH, GENERAL WEAKNESS Reason for Visit Urinary retention UTI (urinary tract infection) Atherosclerotic heart disease of [place] coronary artery without angina pectoris Cardiomyopathy, ischemic [...] (urinary tract infection) Atherosclerotic heart disease of [place] coronary artery without angina pectoris Cardiomyopathy, ischemic [...] (urinary tract infection) Atherosclerotic heart disease of [place] coronary artery without angina pectoris Cardiomyopathy, ischemic [...] (urinary tract infection) Atherosclerotic heart disease of [place] coronary artery without angina pectoris Cardiomyopathy, 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 Acute dehydration Acute metabolic encephalopathy SINGH (acute kidney injury) Episode of generalized weakness Chief Complaint Admit Date 6 m fu PREV AR PT WANTS TO SWITCH Januar y 2024 10:54am Pacer Check Remote December 01, 2024 4 :00am FLU December 16, 2024 2:57pm Reason for Visit Admit Date Cardiomyopathy, ischemic November 10, 2 025 10:54am Dual ICD (implantable cardioverter-defib rillator) in place November 10, 2024 10:54am Dyslipidemia November 10, 2024 1 0:54am Essential hypertension November 10 10:54am Presence of stent in coronary artery Capo [id number] 10:54am Chief Complaint Admit Date 4 M FU March 12, 2025 2:04p m N/V April 27, 2025 8:05 pm Reason for Visit Admit Date Cardiomyopathy, ischemic March 12, 2025 2:04pm Dual ICD (implantable cardioverter-defib rillator) in place March 12, 2025 2:04pm Dyslipidemia March 12, 2025 2:04p m Essential hypertension March 12, 2025 2: 04pm Presence of stent in coronary artery March 12, 2025 2:04pm Family History Relationship Condition Age at Onset Recorded Date/T [...] Referral Specialty Diagnoses / Procedures Referred By Krys rangel Referred To Contact Radiology Diagnoses Abnormal digital rectal exam Procedures CT pelvis w IV contrast Asmita Zambrano MD [address] [place] [id number] Referral ID Status Reason Start Date Expiration Date Visits Requested Visits Authorized [id number] Pending Review Perform Procedure 04/26/2024 04/26/2025 1 1 Specialty Diagnoses / Procedures Referred By Krys rangel Referred To Contact Radiology Diagnoses Malignant neoplasm of prostate (Multi) Procedures CT abdomen pelvis w IV contrast Asmita Zambrano MD [address] [place] [address] Referral ID Status Reason Start Date Expiration Date Visits Requested Visits Authorized [id number] Pending Review Perform Procedure 06/28/2024 06/28/2025 1 1 Referral ID Status Reason Start Date Expiration Date Visits Requested Visits Authorized [id number] Authorized Perform Procedure 06/28/2024 06/28/2025 1 1 Specialty Diagnoses / Procedures Referred By Contac t Referred To Contact Diagnoses Malignant neoplasm of prostate (Multi) Asmita Zambrano MD [address] [place] [phone] Referral ID Status Reason Start Date Expiration Date V isits Requested Visits Authorized [id number] Pending Review 07/12/2024 07/12/2025 1 1 Additional Source Comments Source Comments (unrecognize d section and content) In the event this informatio n is protected by the Federal Confidentiality of Alcohol and Drug Abuse Patient Records regulations: The Federal rules restrict any use of the information to criminally investigate or prosecute any alcohol or drug abuse patient.[facility] Reason for Visit (unrecogniz ed section and content) Reason Onset Date Comments Refill Request 10/18/2011 Reason Comments CYSTOSCOPY Reason Comments PROSTATE BIOPSY Reason Comments TRUS RESULTS Specialty Diagnoses / Procedures Referred By Contac t Referred To Contact Radiology Diagnoses Malignant neoplasm of prostate (Multi) Procedures CT abdomen pelvis w IV contrast Asmita Zambrano MD [address] [place] [address] Referral ID Status Reason Start Date Expiration Date Visits Requested Visits Authorized [id number] Authorized Perform Procedure 06/28/2024 06/28/2025 1 1 Reason Comments LUPRON AND CT RESULTS Specialty Diagnoses / Procedures Referred By Contac t Referred To Contact Diagnoses Malignant neoplasm of prostate (Multi) Asmita Zambrano MD [address] [place] [address] Referral ID Status Reason Start Date Expiration Date V isits Requested Visits Authorized [id number] Pending Review 07/12/2024 07/12/2025 1 1 Reason Comments ROD CHANGE Specialty Diagnoses / Procedures Referred By Contac t Referred To Contact Urology Diagnoses Retention of urine, unspecified Procedures [place] CHANGE CYSTOSTOMY TUBE SIMPLE [facility] [address] [place] [address] [address] [place] [address] Phone: tel: [place] [address] [place] [id number] Phone: tel: fax: Referral ID Status Reason Start Date Expiration Date V isits Requested Visits Authorized [id number] Authorized 12/27/2024 12/27/2025 1 1 Goals (unrecognized [...] DO Primary Care Provider Active Cynthia Bowen SALES COACH, SALES COACH-C Attending Provider, Referring P alana Active Team Status: Active Member Role Status [...] Provider, Referrin g Provider Active Cynthia Bowen SALES COACH, SALES COACH-C Attending Provider Active Team Status: Inactive Member Role Status Dates Dr. John Mckeon DO Primary Care Provider Active Dr. Timotoe Mullins MD Attending Provider, Referring Pro vider Active Basket Bottom Machine Operator Relationship Specialty Start Date End Date John Mckeon DO [address] [place] [phone] PCP - General Family Medicine 03/14/24 Basket Bottom Machine Operator Relationship Specialty Start Date End Date John Mckeon DO [address] [place] [phone] PCP - General Family Medicine 03/14/24 Basket Bottom Machine Operator Relationship Specialty Start Date End Date John Mckeon DO [address] [place] [phone] PCP - General Family Medicine 03/14/24 Basket Bottom Machine Operator Relationship Specialty Start Date End Date John Mckeon DO [address] [place] [phone] PCP - General Family Medicine 03/14/24 Basket Bottom Machine Operator Relationship Specialty Start Date End Date John Mckeon DO [address] [place] [phone] PCP - General Family Medicine 03/14/24 Basket Bottom Machine Operator Relationship Specialty Start Date End Date John Mckeon DO [address] [place] [phone] PCP - General Family Medicine 03/14/24 Basket Bottom Machine Operator Relationship Specialty Start Date End Date John Mckeon DO [address] [place] [phone] PCP - General Family Medicine 03/14/24 Basket Bottom Machine Operator Relationship Specialty Start Date End Date John Mckeon DO [address] [place] [phone] PCP - General Family Medicine 03/14/24 Basket Bottom Machine Operator Relationship Specialty Start Date End Date John Mckeon [address] [place] [address] PCP - General Family Medicine 03/14/24 Basket Bottom Machine Operator Relationship Specialty Start Date End Date John Mckeon [address] [place] [address] PCP - General Family Medicine 03/14/24 Basket Bottom Machine Operator Relationship Specialty Start Date End Date John Mckeon DO [address] [place] [phone] PCP - General Family Medicine 03/14/24 Team [...] February 05, 2025 End: February 05, 2025 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 John Mckeon DO Primary Care Provider Active Team Status: Inactive Member Role/Relationship Status Dates Dr. John Mckeon DO Primary Care Provider Active Start: February 05, 2025 End: February 05, 2025 Dr. John Mckeon DO Attending Provider Active Start: February 05, 2025 End: February 05, 2025 Team Status: Inactive Member Role/Relationship Status Dates Dr. John Mckeon DO Primary Care Provider Active Start: March 12, 2025 End: March 12, 2025 Dr. John Mckeon DO Referring Provider Active Start: March 12, 2025 End: March 12, 2025 Cynthia Bowen SALES COACH, SALES COACH-C Attending Provider Active Start: March 12, 2025 End: March 12, 2025 Team Status: Active Member Role/Relationship Status Dates Dr. John Mckeon DO Primary Care Provider Active Start: April 25, 2025 ANGELA GUERRERO Attending Provider Active Start: 2024 Team Status: Inactive Member Role/Relationship Status Dates Dr. John Mckeon DO Primary Care Provider Active Start: April 27, 2025 End: April 27, 2025 Dr. Timoteo Mckenna DO Emergency Provider Active S tart: April 27, 2025 End: April 27, 2025 (unrecognized sect ion and content) No Status Records FoundNo Status Records FoundNo Status Records Found INFORMATION SOURCE (unrecogn ized section and content) DATE CREATED AUTHOR 07/25/2024 [facility] DATE CREATED AUTHOR AUTHOR'S ORGANIZ ATION 04/25/2025 [facility] DATE CREATED AUTHOR AUTHOR'S ORGANIZ ATION 04/26/2025 [facility] Scheduled Active and Recently Administ ered [...] BE BASED ON THE PRIMARY CLINICAL RECORDS. uMentioned [facility]. provides no warranty or guarantee of the accuracy or completeness of information in this document.
[2025-04-28] MEDS: 0.9% Normal Saline (500mL Bag) 500 ML 1000 ML IV (16:26)
[2025-04-28] MEDS: Ceftriaxone 1 GM/50 ML BAG IV (16:37)
[2025-04-28 16:38] LABS: Absolute Lymphocyte Count 2.05 X10^3/uL (0.83-4.51); Absolute Neutrophil Count 8.3 X10^3/uL (2.0-7.7); Basophil# 0.05 X10^3/uL; Basophil% 0.4 % (0-1); Eosinophil# 0.02 X10^3/uL; Eosinophils% 0.2 % (0-5); Hematocrit 37.3 % (40-54); Hemoglobin 12.4 g/dL (13.0-16.5); Lymphocyte # 2.05 X10^3/ul (0.83-4.51); Lymphocyte % 17.9 % (19-41); Mean Corp Hgb Conc 33.2 g/dL (32-36); Mean Corpuscular Volume 90.1 fL (80-94); Mean Platelet Vol. 10.6 fl (6.2-12.0); Monocyte# 0.99 X10^3/uL; Monocyte% 8.6 % (0-10); NRBC Flagged by Analyzer 0 % (0-5); Neutrophil # 8.32 X10^3/uL (2.7-7.7); Neutrophil % 72.7 % (47-70); Platelet Count 189 K/mm3 (150-450); RBC Distribution Width CV 13.4 % (11.6-14.6); Red Blood Count 4.14 M/mm3 (4.6-6.2); White Blood Count 11.5 K/mm3 (4.4-11.0)
[2025-04-28] MEDS: Ondansetron 4 MG/2 ML Vial IV (17:12)
[2025-04-28 17:17] LABS: Lactic Acid 1.2 mmol/L (0.0-2.0)
[2025-04-28 17:18] LABS: ALB/GLOB Ratio 1.2 RATIO (0.9-2.4); AST(SGOT) 21 U/L (<=37); Alanine Aminotransfer ALT/SGPT 10 U/L (<=46); Albumin, Serum 3.9 g/dL (3.4-4.8); Alkaline Phosphatase 64 U/L (40-129); Anion Gap 12 (5-15); BUN 9 mg/dL (4-19); BUN/Creat Ratio 10.5 RATIO (10-20); Calcium,Total 9.3 mg/dL (7.6-11.0); Carbon Dioxide 24.7 mmol/L (21.0-32.0); Chloride 99 mmol/L (98-108); Creatinine, Serum 0.82 mg/dL (0.70-1.20); EST Glomerular Filtration Rate 84 (>60); Estimated Creatinine Clearance 46.43 ml/min (50-250); Globulin 3.3 g/dL (2.2-4.2); Glucose 149 mg/dL (70-99); Potassium 3.8 mmol/L (3.3-5.1); Protein, Total 7.3 g/dL (5.9-8.4); Sodium Level 137 mmol/L (133-145); Total Bilirubin 0.81 mg/dL (0.00-1.30)
[2025-04-28 17:25] VITALS: BP 149/64; PULSE 77; RESP 16; O2SAT 100
[2025-04-28 18:19] VITALS: BP 137/79; PULSE 80; RESP 16; TEMP 37.1; O2SAT 100
--- OUTSIDE RECORDS SUMMARY | 2025-04-28 18:26 | XMS RPT_ITS | CCD ---
Author Organization [facility] CliniSynm Care Team Providers Care Shoe Associate Name Role Phone TERESITA Grubbs, Elsy Denis [...] [phone] Shailesh Mancini Referring Provider Unavailable Jarad HUMAN RESOURCES PROFESSIONAL, SUPRIYA-Merrill Galloway Attending Provider Shailesh Mancini Primary [...] Provider Dr. Timoteo Mullins MD Attending Provider Susanna PASCUAL, Dr. Mahmood Referring Provider [phone] Sadie MARCUS, Dr. Stewart Attending Provider Clarisa MARCUS, Dr. Mahmood Attending Provider [phone] Clarisa MARCUS, Dr. Mahmood Emergency Provider ZAMBRANO, [...] Care Unavailable Susanna, Timoteo Referring Unavailable Susanna, [place] Attending Unavailable Sadie, John Primary Care Unavailable Susanna, Timoteo Attending Unavailable Susanna, [place] Referring Unavailable Sadie, John Primary Care Unavailable [...] Dr. John Mckeon DO Primary Care Provider Dr. John Mckeon DO Attending Provider [phone] John Mckeon DO Referring Provider [phone] Cynthia Roberts Attending Provider CHERYL SUTHERLAND Attending Provider [phone] Timoteo Mckenna DO Emergency Provider Allergies Allergy Classification Reported Allergen(s) Allergy Type Date of Onset Reaction(s) Facility Opioid Agonists (1 source) Morphine Drug Allergy 3 [facility] (20 sources) Morphine; Translations: [MORPHINE] Drug Allergy 3 Rash [facility] (20 sources) zolpidem; Translations: [zolpidem tartrate] Drug Allergy 1 CONFUSION [facility] (15 sources) zolpidem; Translations: [ZOLPIDEM] Drug Allergy 9 Hallucinations, Unknown Hospitals 2 Repository (1 source) Morphine Drug Allergy 5 [facility] Repository Medications Current Medications Medication Drug Class(es) [...] TBEC One tablet by mouth daily ASPIRIN [id number] Abril Daly RN Start: 06-19-2005 take 1 tablet by mayda [facility] once daily ASPIRIN 81 MG TABS One tablet by mouth daily ASPIRIN [id number] Leonora Viveros Comment on above: Take one [...] oral tablet (20 sources) alpha-Adrenergic Mona, beta-Adrenergic Mnoa Start: 11-10-19 take 1 tablet by mouth [...] 1/2 tablet by mouth twice daily CARVEDILOL [id number] Robbi Abbott MD Start: 05-20-2012 take 1 tablet by mayda th twice daily COREG 25 MG TABS One tablet by mouth twice daily CARVEDILOL [id number] Robbi Abbott MD Start: 08-04-2010 End: 04-17-2019 [...] 12:00am Start: 07-25-2024 take 1 tablet by [facility] three times daily as needed for muscle spasms phenazopyridine (Pyridium) 200 mg tablet Indications: Urinary retention Take 1 tablet (200 mg) by mouth 3 times a day as needed for bladder spasms. 30 tablet 07/25/2024 Active polyethylene glycol 3350 69711 mg powder for oral solution (13 sources) [...] One tablet by mouth daily DIPHENHYDRAMINE-APAP (SLEEP) [id number] Robbi Abbott MD amoxicillin 875 mg / [...] daily ISOSORBIDE MONONITRA TE ER 30 MG [id number] One tablet by mouth daily (Imdur) STOP ISOSORBIDE MONONITRATE [id number] Abril Dupree PA-C isosorbide dinitrate 30 mg [...] One tablet by mouth twice daily LISINOPRIL [id number] Robbi Abbott MD Start: 03-06-2009 End: 07-17-2013 take 1 tablet by mouth once daily LISINOPRIL 10 MG TABS One tablet by mouth daily LISINOPRIL [id number] Robbi Abbott MD Comment on above: Take [...] One tablet by mouth daily PANTOPRAZOLE SODIUM [id number] Rain Segovia NP Start: 06-04-2011 End: 10-23-2011 [...] Two tablets by mouth daily POTASSIUM CHLORIDE [id number] Leonora Viveros 12 hr ranolazine 500 mg extended release oral tablet (20 sources) Anti-anginal Start: 12-21-2014 take 1 tablet by mouth twice daily RANEXA 500 MG [id number] One tablet by mouth twice daily RANOLAZINE [id number] Kasia Nieto RN Start: 08-04-2010 End: 05-02-2012 take 1 tablet by mouth twice daily RANEXA 500 MG [id number] One tablet by mouth twice daily RANOLAZINE [id number] Kasia Nieto RN simvastatin 20 mg oral [...] FFR of RCA negative per DJN @ [facility] Deficiency and other anemia (20 sources) [...] (19 sources) Drug therapy finding; 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] 01-31-2019 Episodic Other aftercare [...] (2 sources) Long-term drug therapy; Translations: [Other halfway (current) drug therapy] Onset: 1 01-13-2011 Urinary [...] FFR of RCA negative per [facility]N @ [facility] Esophageal disorders (1 source) Esophagitis; Translations: [Esophagitis, unspecified] Onset: 06-12-2010 06-12-2010 Episodic Other aftercare (15 sources) Long-term drug therapy; Translations: [Other halfway (current) drug therapy] Onset: 01-13-2011 01-13-2011 Episodic [...] Auto (Unsp spec) [#/Vol] 1.92 10*3/uL 0.83-4.51 [facility] Absolute neutrophil countOrd ered By: Timoteo Mckenna on 04-27-2025 Neutrophils (Bld) [#/Vol] 7.0 10*3/uL 2.0-7.7 [facility] Anion gap in Serum or Plasma Ordered By: Timoteo Mckenna on 04-27-2025 Anion gap [Moles/Vol] 12 mmol/L 5-15 [facility] Automated lymphocyte count a s percentage of total leukocytesOrdered By: Timoteo Mckenna on 04-27-2025 Lymphocytes/100 WBC Auto (Unsp spec) 19.6 % 19-41 [facility] BUN/creatinine ratioOrdered By: [facility] Mck[facility] on 04-27-2025 Urea nitrogen/Creatinine [Mass ratio] 14.1 mg/mg 10-20 [facility] Basophil percentageOrdered B y: Timoteo Mckenna on 04-27-2025 Basophils/100 WBC (Bld) 0.5 % 0-1 [facility] Bilirubin Test strip Ql (U)O rdered By: Timoteo Mckenna on 04-27-2025 Bilirubin Ql (U) Negative Negative [facility] Bilirubin, totalOrdered By: Timoteo Mckenna on 04-27-2025 Bilirubin [Mass/Vol] 0.75 mg/dL 0.00-1.30 [facility] Carbon dioxide, total [Moles /volume] in Central venous bloodOrdered By: Timoteo Mckenna on 04-27-2025 CO2 [Moles/Vol] 23.2 mmol/L 21.0-32.0 [facility] Chloride assayOrdered By: Melissa Mckenna on 04-27-2025 Chloride [Moles/Vol] 100 mmol/L 98-108 [facility] Eosinophil percentageOrdered By: Timoteo Mckenna on 04-27-2025 Eosinophils/100 WBC (Bld) 1.0 % 0-5 [facility] Erythrocyte distribution wid th ratioOrdered By: Timoteo Mckenna on 04-27-2025 Erythrocyte distribution width (RBC) [Ratio] 13.6 % 11.6-14.6 [facility] Erythrocyte distribution wid th standard deviationOrdered By: Timoteo Mckenna on 04-27-2025 Erythrocyte distribution width (RBC) [Ratio] 43.9 fl 35.1-43.9 [facility] Glomerular filtration rate ( GFR) estimation/1.73 sq m using serum, plasma, or whole bOrdered By: Timoteo Mckenna on 04-27-2025 GFR/1.73 sq M.predicted among non-blacks MDRD (S/P/Bld) [Vol rate/Area] 82 mL/min/{1.73_m2} >60 [facility] Comment on above: mL/min/1.73m2 CKD-EP I Creatinine Equation (2020) Hematocrit Auto (Bld) [Volum e fraction]Ordered By: Timoteo Mckenna on 04-27-2025 Hematocrit (Bld) [Volume fraction] 36.0 % Low 40-54 [facility] Hemoglobin measurementOrdere d By: Timoteo Mckenna on 04-27-2025 Hemoglobin (Bld) [Mass/Vol] 12.2 g/dL Low 13.0-16.5 [facility] Immature granulocytes/100 WB C Auto (Bld)Ordered By: Timoteo Mckenna on 04-27-2025 Immature granulocytes/100 WBC (Bld) 0.400 % 0.0-0.9 [facility] Comment on above: IG% - Immature Granu locytes (promyelocytes, myelocytes and metamyelocytes) > 1% indicates that a LEFT SHIFT is Present. Ketones Test strip Ql (U)Ord ered By: Timotoe Mckenna on 04-27-2025 Ketones Ql (U) 5 mg/dl High Negative [facility] Laboratory - Chemistry and C hemistry - challengeOrdered By: Timoteo Mckenna on 04-27-2025 AST [Catalytic activity/Vol] 30 U/L <38 [facility] Comment on above: Hemolysis present, R esults could be affected. Lipase measurementOrdered By : Timoteo Mckenna on 04-27-2025 Lipase [Catalytic activity/Vol] 15 U/L 13-75 [facility] Comment on above: Please note:LIPASE r evised reference range effective 23. New Lipase methodology. Expected to produce lower values than the previous assay method. NEW Reference Range: 13 - 75 U/L MCV (mean corpuscular volume ) determinationOrdered By: Timoteo Mckenna on 04-27-2025 MCV (RBC) [Entitic vol] 89.3 fL 80-94 [facility] Mean corpuscular hemoglobin (MCH) determinationOrdered By: Timoteo Mckenna on 04-27-2025 MCH (RBC) [Entitic mass] 30.3 pg 27.0-32.0 [facility] Mean corpuscular hemoglobin concentration (MCHC) determinationOrdered By: Timoteo Mckenna on 04-27-2025 MCHC (RBC) [Mass/Vol] 33.9 g/dL 32-36 [facility] Mean platelet volume determi nationOrdered By: Timoteo Mckenna on 04-27-2025 Platelet mean volume (Bld) [Entitic vol] 11.6 fL 6.2-12.0 [facility] Microscopic analysis of urin e for red blood cells (RBC)Ordered By: Timoteo Mckenna on 04-27-2025 Microscopic analysis of urine for red blood cells (RBC) 0-5 SEEN /hpf 0-5 [facility] Monocyte percentageOrdered B y: Timoteo Mckenna on 04-27-2025 Monocytes/100 WBC (Bld) 7.4 % 0-10 [facility] Mucus LM Ql (Urine sed)Order ed By: Timoteo Mckenna on 04-27-2025 Mucus Ql (Urine sed) 0 SEEN /hpf [facility] Neutrophil percentageOrdered By: Timoteo Mckenna on 04-27-2025 Neutrophils/100 WBC (Bld) 71.1 % High 47-70 [facility] Nitrite Test strip Ql (U)Ord ered By: Timoteo Mckenna on 04-27-2025 Nitrite Ql (U) Positive High Negative [facility] Nucleated red blood cell per centageOrdered By: Timoteo Mckenna on 04-27-2025 Nucleated RBC/100 WBC (Bld) [Ratio] 0 % 0-5 [facility] Platelet countOrdered By: Melissa Mckenna on 04-27-2025 Platelets (Bld) [#/Vol] 201 10*3/uL 150-450 [facility] Potassium measurement (mass/ volume)Ordered By: Timoteo Mckenna on 04-27-2025 Potassium (Unsp spec) [Mass/Vol] 4.2 mmol/L 3.3-5.1 [facility] Comment on above: Hemolysis present, R esults could be affected. Protein Test strip Ql (U)Ord ered By: Timoteo Mckenna on 04-27-2025 Protein Ql (U) 30 mg/dl High Negative [facility] RBC Auto (Bld) [#/Vol]Ordere d By: Timoteo Mckenna on 04-27-2025 RBC (Bld) [#/Vol] 4.03 10*6/uL Low 4.6-6.2 [facility] Serum creatinine measurement (mass/volume)Ordered By: Timoteo Mckenna on 04-27-2025 Creatinine [Mass/Vol] 0.90 mg/dL 0.70-1.20 [facility] Serum globulin measurementOr dered By: Timoteo Mckenna on 04-27-2025 Globulin (S) [Mass/Vol] 3.3 g/dL 2.2-4.2 [facility] Serum glucose measurement (m ass/volume)Ordered By: Timoteo Mckenna on 04-27-2025 Glucose [Mass/Vol] 285 mg/dL High 70-99 [facility] Serum or plasma alanine rice otransferase (ALT) measurementOrdered By: Timoteo Mckenna on 04-27-2025 ALT [Catalytic activity/Vol] 15 U/L <47 [facility] Serum or plasma albumin alfonso urement (mass/volume)Ordered By: Remus Clarisa on 04-27-2025 Albumin [Mass/Vol] 4.0 g/dL 3.4-4.8 [facility] Serum or plasma albumin/glob ulin mass ratioOrdered By: Remus Ungmaryann on 04-27-2025 Albumin/Globulin [Mass ratio] 1.2 {ratio} 0.9-2.4 [facility] Serum or plasma alkaline rory sphatase measurementOrdered By: Remus Clarisa on 04-27-2025 ALP [Catalytic activity/Vol] 65 U/L 40-129 [facility] Serum or plasma calcium alfonso urement (mass/volume)Ordered By: Remus Ungmaryann on 04-27-2025 Calcium [Mass/Vol] 9.2 mg/dL 7.6-11.0 [facility] Serum or plasma urea nitroge n measurement (mass/volume)Ordered By: Remus Clarisa on 04-27-2025 Urea nitrogen [Mass/Vol] 13 mg/dL 4-19 [facility] Sodium levelOrdered By: Remu s Clarisa on 04-27-2025 Sodium [Moles/Vol] 135 mmol/L 133-145 [facility] Squamous epithelial cells de tection in urine sediment by light microscopyOrdered By: Remus Mckenna on 04-27-2025 Epithelial cells.squamous LM Ql (Urine sed) 0 SEEN /hpf 0-5 [facility] Total proteinOrdered By: Rem us Clarisa on 04-27-2025 Protein [Mass/Vol] 7.3 g/dL 5.9-8.4 [facility] Urine clarityOrdered By: Rem us Clarisa on 04-27-2025 Clarity (U) Sl. Cloudy Clear [facility] Urine color determinationOrd ered By: Remus Clarisa on 04-27-2025 Color (U) Yellow Yellow [facility] Urine glucose detectionOrder ed By: Remus Clarisa on 04-27-2025 Glucose Ql (U) 1000 mg/dl High Normal [facility] Urine leukocyte esterase det ection by dipstickOrdered By: Remus Clarisa on 04-27-2025 Leukocyte esterase Test strip Ql (U) 500 /ul High Negative [facility] Urine pHOrdered By: Remus Un gur on 04-27-2025 pH (U) 6.0 [pH] 5.0 - 8.0 [facility] Urine sediment bacteria coun t by microscopy (number/high power field)Ordered By: Timoteo Mckenna on 04-27-2025 Bacteria LM.HPF (Urine sed) [#/Area] 2 /[HPF] None Seen [facility] Urine specific gravity measu rementOrdered By: Timoteo Clarisa on 04-27-2025 Specific gravity (U) [Rel density] 1.015 1.002-1.03 0 [facility] Urine urobilinogen measureme ntOrdered By: Timoteo Mckenna on 04-27-2025 Urobilinogen Ql (U) Normal mg/dl Normal [facility] White blood cell (WBC) count Ordered By: Timoteo Clarisa on 04-27-2025 WBC (Bld) [#/Vol] 9.8 10*3/uL 4.4-11.0 [facility] White blood cell countOrdere d By: Timoteo Clarisa on 04-27-2025 White blood cell count 25-50 SEEN /hpf 0-5 [facility] PSA,Total- Diagnosticon 04-02 PSA, DIAGNOSTIC 0.38 ng/mL Normal 0.00-4.00 [facility] Comment on above: Result Comment: This test [...] values. Performed By: #### L 501.9940 #### [facility] [address] [place], [place], [address] Cardiology Visit Reporton Cardiology Visit Report [facility] [address] [place] [address] OFFICE VISIT Date of Service: 03/12/25 MR#: [id number] Acct: [id number] Name: RAJAT GUZMÁN Rep #: [id number] : 1935 Provider: MORTEZA ortiz Age/Sex: 89/M Location: [facility] Status: Signed HPI HPI History of Present [...] 97 Intake Visit Reasons: 4 M FU Tufter Hand Required: No Is patient in pain?: No [...] (Reviewed 03/12/25 @ 16:11 by Cynthia Bowen HUMAN RESOURCES PROFESSIONAL, HUMAN RESOURCES PROFESSIONAL-C) Non-smoker History of heart attack Presence of [...] Chest pain, precordial Atherosclerotic heart disease of [place] coronary artery without angina pectoris Dyspnea Fatigue Hypokalemia Benign prostatic hypertrophy SBO (small bowel obstruction) Surgical History (Reviewed 03/12/25 @ 16:11 by Cynthia Bowen HUMAN RESOURCES PROFESSIONAL, HUMAN RESOURCES PROFESSIONAL-C) H/O dilation of urethra Hx of transurethral resection of prostate 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) History of cardiac catheterization Hx of colonoscopy Hx of surgical procedure History of hernia repair History of prostate surgery History of left heart catheterization Family History (Reviewed 03/12/25 @ 16:11 by Cynthia Bowen HUMAN RESOURCES PROFESSIONAL, HUMAN RESOURCES PROFESSIONAL-C) Mother CAD (coronary artery disease) CVA (cerebral vascular accident) Myocardial infarction, Onset Age: 67 Hypertension Brother CAD (coronary artery disease) Hypertension Cancer Lung CA Myocardial infarction, Onset Age: 73 Father Myocardial infarction, Onset Age: 77 Daughter Cancer Son Myocardial infarction, Onset Age: 46 Other Cardiomyopathy, ischemic Chronic systolic congestive heart deena (more content not included)... Normal [facility] CRPon 02-05-2025 C-REACTIVE PROT 3.80 mg/L High 0.0-3.0 [facility] Comment on above: Performed By: #### L 501.9940 #### [facility] [address] [place], [place], [id number] CRP [Mass/Vol]Ordered By: Nestor Mckeon on 02-05-2025 C-Reactive Protein Extended Range 3.80 mg/L High 0.0-3.0 [facility] Erythrocyte Sed Rateon 02-05 SED RATE 13 mm/hr Normal 0-20 [facility] Comment on above: Performed By: #### L 501.9940 #### [facility] [address] [place], [place], [id number] Erythrocyte sedimentation ra teOrdered By: John Mckeon on 02-05-2025 ESR (Bld) [Velocity] 13 mm/h 0-20 [facility] Serum or plasma C reactive p rotein measurement (mass/volume)Ordered By: John Mckeon on 02-05-2025 CRP [Mass/Vol] 3.80 mg/L High 0.0-3.0 [facility] Absolute neutrophil countOrd ered By: Timoteo Mckenna on 12-16-2024 Neutrophils (Bld) [#/Vol] 6.7 10*3/uL 2.0-7.7 [facility] Basic Metabolic Profile (BMP )on 12-16-2024 BUN/CRE 19.0 RATIO Normal - [facility] Comment on above: Performed By: #### L 100.0100, L500.2500 #### [facility] [address] [place], [place], [id number] CA,Total 9.9 mg/dL Normal 8.5-10.1 [facility] Comment on above: Performed By: #### L 100.0100, L500.2500 #### [facility] [address] [place], [address] Chloride [Moles/Vol] 100 mmol/L Normal 98-107 [facility] Comment on above: Performed By: #### L 100.0100, L500.2500 #### [facility] [address] [place], [address] CO2 [Moles/Vol] 27.0 mmol/L Normal 21.0-32.0 [facility] Comment on above: Performed By: #### L 100.0100, L500.2500 #### [facility] [address] [place], [address] Creatinine [Mass/Vol] 0.84 mg/dL Normal 0.70-1.30 [facility] Comment on above: Result Comment: The validity of the calculated GFR GFRAA in patients over 70 years has not been determined. Clinical correlation is essential. Performed By: #### L 100.0100, L500.2500 #### [facility] [address] [place], [address] ECRCL 44.07 ml/min Normal [facility] Comment on above: Performed By: #### L 100.0100, L500.2500 #### [facility] [address] [place], [address] EST GFR - AA 111 mL/min Normal >60 [facility] Comment on above: Result Comment: Afri can Indian GFR Calc Performed By: #### L 100.0100, L500.2500 #### [facility] [address] [place], [address] GAP 8 Normal 5-15 [facility] Comment on above: Performed By: #### L 100.0100, L500.2500 #### [facility] [address] [place], [address] GFR/1.73 sq M.predicted among non-blacks MDRD (S/P/Bld) [Vol rate/Area] 92 mL/min/{1.73_m2} Normal >60 [facility] Comment on above: Result Comment: Non- GFR Calc Performed By: #### L 100.0100, L500.2500 #### [facility] [address] [place], [address] Glucose [Mass/Vol] 155 mg/dL High 74-106 [facility] Comment on above: Result Comment: Fast ing Glucose result greater than or equal to 126 mg/dL suggests DIABETES MELLITUS per A.D.A. criteria. Performed By: #### L 100.0100, L500.2500 #### [facility] [address] [place], [address] Potassium [Moles/Vol] 3.8 mmol/L Normal 3.5-5.1 [facility] Comment on above: Performed By: #### L 100.0100, L500.2500 #### [facility] [address] [place], [address] Sodium [Moles/Vol] 135 mmol/L Low 136-145 [facility] Comment on above: Performed By: #### L 100.0100, L500.2500 #### [facility] [address] [place], [address] Urea nitrogen [Mass/Vol] 16 mg/dL Normal 7-18 [facility] Comment on above: Performed By: #### L 100.0100, L500.2500 #### [facility] [address] [place], [address] Basophil percentageOrdered B y: Timoteo Mckenna on 12-16-2024 Basophils/100 WBC (Bld) 0.1 % 0-1 [facility] Bilirubin Test strip Ql (U)O rdered By: Remus Clarisa on 12-16-2024 Bilirubin Ql (U) Negative Negative [facility] Blood urea nitrogen (BUN)/cr eatinine ratioOrdered By: Timoteo Mckenna on 12-16-2024 Urea nitrogen/Creatinine [Mass ratio] 19.0 mg/mg 10-20 [facility] CBC W/Diff, Automatedon 12-02 Absolute Lymph 1.31 X10 3/uL Normal 0.83-4.51 [facility] Comment on above: Performed By: #### L 100.0100, L500.2500 #### [facility] [address] [place], [address] Absolute Neut 6.7 X10 3/uL Normal 2.0-7.7 [facility] Comment on above: Performed By: #### L 100.0100, L500.2500 #### [facility] [address] [place], [address] Basophils/100 WBC (Bld) 0.1 % Normal 0-1 [facility] Comment on above: Performed By: #### L 100.0100, L500.2500 #### [facility] [address] [place], [address] Eosinophils/100 WBC (Bld) 0.3 % Normal 0-5 [facility] Comment on above: Performed By: #### L 100.0100, L500.2500 #### [facility] [address] [place], [address] Erythrocyte distribution width (RBC) [Ratio] 13.7 % Normal 11.6-14.6 [facility] Comment on above: Performed By: #### L 100.0100, L500.2500 #### [facility] [address] [place], [address] Hematocrit (Bld) [Volume fraction] 42.5 % Normal 40-54 [facility] Comment on above: Performed By: #### L 100.0100, L500.2500 #### [facility] [address] [place], [address] Hemoglobin (Bld) [Mass/Vol] 13.8 g/dL Normal 13.0-16.5 [facility] Comment on above: Performed By: #### L 100.0100, L500.2500 #### [facility] [address] [place], [address] IG% 0.200 Normal 0.0-0.9 [facility] Comment on above: Result Comment: IG% - Immature Granulocytes (promyelocytes, myelocytes and metamyelocytes) > 1% indicates that a LEFT SHIFT is Present. Performed By: #### L 100.0100, L500.2500 #### [facility] [address] [place], [address] Lymphocytes/100 WBC (Bld) 15.2 % Low 19-41 [facility] Comment on above: Performed By: #### L 100.0100, L500.2500 #### [facility] [address] [place], [address] MCH (RBC) [Entitic mass] 29.2 pg Normal 27.0-32.0 [facility] Comment on above: Performed By: #### L 100.0100, L500.2500 #### [facility] [address] [place], [address] MCHC (RBC) [Mass/Vol] 32.5 g/dL Normal 32-36 [facility] Comment on above: Performed By: #### L 100.0100, L500.2500 #### [facility] [address] [place], [address] MCV (RBC) [Entitic vol] 89.9 fL Normal 80-94 [facility] Comment on above: Performed By: #### L 100.0100, L500.2500 #### [facility] [address] [place], [address] Monocytes/100 WBC (Bld) 6.1 % Normal 0-10 [facility] Comment on above: Performed By: #### L 100.0100, L500.2500 #### [facility] [address] [place], [address] Neutrophils/100 WBC (Bld) 78.1 % High 47-70 [facility] Comment on above: Performed By: #### L 100.0100, L500.2500 #### [facility] [address] [place], [address] Nucleated RBC (Bld) [#/Vol] 0 10*3/uL Normal 0-5 [facility] Comment on above: Performed By: #### L 100.0100, L500.2500 #### [facility] [address] [place], [address] Platelet mean volume (Bld) [Entitic vol] 10.6 fL Normal 6.2-12.0 [facility] Comment on above: Performed By: #### L 100.0100, L500.2500 #### [facility] [address] [place], [address] Platelets (Bld) [#/Vol] 248 10*3/uL Normal 150-450 [facility] Comment on above: Performed By: #### L 100.0100, L500.2500 #### [facility] [address] [place], [address] RBC (Bld) [#/Vol] 4.73 10*6/uL Normal 4.6-6.2 [facility] Comment on above: Performed By: #### L 100.0100, L500.2500 #### [facility] [address] [place], [address] RDW SD 45.1 fl High 35.1-43.9 [facility] Comment on above: Performed By: #### L 100.0100, L500.2500 #### [facility] [address] [place], [address] WBC (Bld) [#/Vol] 8.6 10*3/uL Normal 4.4-11.0 [facility] Comment on above: Performed By: #### L 100.0100, L500.2500 #### [facility] [address] [place], [address] Carbon dioxide measurementOr dered By: Timoteo Mckenna on 12-16-2024 CO2 [Moles/Vol] 27.0 mmol/L 21.0-32.0 [facility] Chloride measurementOrdered By: Timoteo Mckenna on 12-16-2024 Chloride [Moles/Vol] 100 mmol/L 98-107 [facility] Emergency Department Summary on 12-16-2024 Emergency Department Summary [facility] Department [address] [place] [address] Emergency Department Summary 12/16/24 MR#: [id number] Acct: [id number] Name: RAJAT GUZMÁN Rep #: [id number] : 1935 89 From: Timoteo Mckenna DO [...] fever at home. He denies urinary symptoms. [facility] Medical History Non-smoker History of heart [...] Chest pain, precordial Atherosclerotic heart disease of [place] coronary artery without angina pectoris Dyspnea Fatigue [...] Denies rh (more content not included)... Normal [facility] Eosinophil percentageOrdered By: Timoteo Mckenna on 12-16-2024 Eosinophils/100 WBC (Bld) 0.3 % 0-5 [facility] Epithelial cells.squamous LM Ql (Urine sed)Ordered By: Timoteo Mckenna on 12-16-2024 Epithelial cells.squamous LM.HPF (Urine sed) [#/Area] 0 /[HPF] 0-5 [facility] Erythrocyte distribution wid th (RBC) [Ratio]Ordered By: Timoteo Mckenna on 12-16-2024 Erythrocyte distribution width (RBC) [Entitic vol] 45.1 fL High 35.1-43.9 [facility] Erythrocyte distribution wid th ratioOrdered By: [facility] M[facility] on 12-16-2024 Erythrocyte distribution width (RBC) [Ratio] 13.7 % 11.6-14.6 [facility] Estimated glomerular filtrat ion rate (GFR) AmericanOrdered By: Timoteo Mckenna on 12-16-2024 Estimated GFR (MDRD) Amer 111 mL/min >60 [facility] Comment on above: GFR Calc Estimation of creatinine laurel aranceOrdered By: Timoteo Mckenna on 12-16-2024 Estimated Creatinine Clearance Calc 44.07 ml/min [facility] Glomerular filtration rate ( GFR) estimationOrdered By: Timoteo Mckenna on 12-16-2024 Estimated GFR (MDRD) Non-Af Amer 92 mL/min >60 [facility] Comment on above: Non- GFR Calc Glucose Ql (U)Ordered By: Melissa Mckenna on 12-16-2024 Urine Glucose (UA) Normal mg/dl Normal [facility] Glucose measurementOrdered B y: Timoteo Mckenna on 12-16-2024 Glucose [Mass/Vol] 155 mg/dL High 74-106 [facility] Comment on above: Fasting Glucose resu lt greater than or equal to 126 mg/dL suggests DIABETES MELLITUS per A.D.A. criteria. Hematocrit Auto (Bld) [Volum e fraction]Ordered By: Timoteo Mckenna on 12-16-2024 Hematocrit (Bld) [Volume fraction] 42.5 % 40-54 [facility] Hemoglobin measurementOrdere d By: Timoteo Mckenna on 12-16-2024 Hemoglobin (Bld) [Mass/Vol] 13.8 g/dL 13.0-16.5 [facility] Immature granulocytes/100 WB C Auto (Bld)Ordered By: Timoteo Mckenna on 12-16-2024 Immature granulocytes/100 WBC (Bld) 0.200 % 0.0-0.9 [facility] Comment on above: IG% - Immature Granu locytes (promyelocytes, myelocytes and metamyelocytes) > 1% indicates that a LEFT SHIFT is Present. Influenza virus A and B and SARS-CoV-2 (COVID-19) and Respiratory syncytial virus RNAOrdered By: Timoteo Mckenna on 12-16-2024 SARS-CoV-2 (COVID-19) RNA MOHIT+probe Ql (Unsp spec) [facility] Ketones Test strip Ql (U)Ord ered By: Timoteo Mckenna on 12-16-2024 Ketones Ql (U) Negative Negative [facility] Lymphocytes Auto (Unsp spec) [#/Vol]Ordered By: Timoteo Mckenna on 12-16-2024 Lymphocytes (Bld) [#/Vol] 1.31 10*3/uL 0.83-4.51 [facility] Lymphocytes/100 WBC Auto (Un sp spec)Ordered By: Timoteo Mckenna on 12-16-2024 Lymphocytes/100 WBC (Bld) 15.2 % Low 19-41 [facility] M100.678on 12-16-2024 M100.678 SARS-CoV-2 (COVID 19 ) Negative INFLUENZA A Negative INFLUENZA B Negative RSV PCR Negative Normal [facility] Comment on above: Performed By: #### L 501.9932 #### [facility] [address] [place], [place], [id number] MCV (mean corpuscular volume ) determinationOrdered By: Timoteo Mckenna on 12-16-2024 MCV (RBC) [Entitic vol] 89.9 fL 80-94 [facility] Mean corpuscular hemoglobin (MCH) determinationOrdered By: Timoteo Mckenna on 12-16-2024 MCH (RBC) [Entitic mass] 29.2 pg 27.0-32.0 [facility] Mean corpuscular hemoglobin concentration (MCHC) determinationOrdered By: Timoteo Mckenna on 12-16-2024 MCHC (RBC) [Mass/Vol] 32.5 g/dL 32-36 [facility] Mean platelet volume determi nationOrdered By: Timoteo Mckenna on 12-16-2024 Platelet mean volume (Bld) [Entitic vol] 10.6 fL 6.2-12.0 [facility] Microscopic analysis of urin e for red blood cells (RBC)Ordered By: Timoteo Mckenna on 12-16-2024 Urine RBC 0 SEEN /hpf 0-5 [facility] Monocyte percentageOrdered B y: Timoteo Mckenna on 12-16-2024 Monocytes/100 WBC (Bld) 6.1 % 0-10 [facility] Mucus LM Ql (Urine sed)Order ed By: Timoteo Mckenna on 12-16-2024 Mucus Ql (Urine sed) 0 SEEN /hpf [facility] Neutrophil percentageOrdered By: Timoteo Mckenna on 12-16-2024 Neutrophils/100 WBC (Bld) 78.1 % High 47-70 [facility] Nitrite Test strip Ql (U)Ord ered By: Timoteo Mckenna on 12-16-2024 Nitrite Ql (U) Negative Negative [facility] Nucleated red blood cell per centageOrdered By: Timoteo Mckenna on 12-16-2024 Nucleated RBC/100 WBC (Bld) [Ratio] 0 % 0-5 [facility] Platelet countOrdered By: Melissa Mckenna on 12-16-2024 Platelets (Bld) [#/Vol] 248 10*3/uL 150-450 [facility] Potassium measurementOrdered By: Timoteo Mckenna on 12-16-2024 Potassium [Moles/Vol] 3.8 mmol/L 3.5-5.1 [facility] Protein Test strip Ql (U)Ord ered By: Timoteo Mckenna on 12-16-2024 Protein Ql (U) Negative Negative [facility] RBC Auto (Bld) [#/Vol]Ordere d By: Timoteo Mckenna on 12-16-2024 RBC (Bld) [#/Vol] 4.73 10*6/uL 4.6-6.2 [facility] Serum anion gap measurementO rdered By: Timoteo Mckenna on 12-16-2024 Anion gap [Moles/Vol] 8 mmol/L -15 [facility] Serum or plasma calcium alfonso urement (mass/volume)Ordered By: Timoteo Mckenna on 12-16-2024 Calcium [Mass/Vol] 9.9 mg/dL 8.5-10.1 [facility] Serum or plasma creatinine m easurement (mass/volume)Ordered [...] 12-16-2024 Urea nitrogen [Mass/Vol] 16 mg/dL 7-18 [facility] Sodium levelOrdered By: Roxana Mckenna on 12-16-2024 Sodium [Moles/Vol] 135 mmol/L Low 136-145 [facility] Urinalysis, Completeon 12-16 RBC 0 SEEN Normal 0-5 [facility] Comment on above: Order Comment: CLEAN CATCH Performed By: #### L 501.9917 #### [facility] [address] [place], [address] Urine blood detectionOrdered By: Remus Ungmaryann on 12-16-2024 Urine Occult Blood Negative Negative [facility] Urine clarityOrdered By: Rem us Ungur on 12-16-2024 Clarity (U) Clear Clear [facility] Urine color determinationOrd ered By: Remus Ungmaryann on 12-16-2024 Color (U) Straw Yellow [facility] Urine leukocyte esterase det ection by dipstickOrdered By: Remus Clarisa on 12-16-2024 Leukocyte esterase Test strip Ql (U) 25 /ul High Negative [facility] Urine pHOrdered By: Rem Un gur on 12-16-2024 pH (U) 6.5 [pH] 5.0 - 8.0 [facility] Urine sediment bacteria coun t by microscopy (number/high power field)Ordered By: Remus Mckenna on 12-16-2024 Bacteria LM.HPF (Urine sed) [#/Area] 0 /[HPF] None Seen [facility] Urine specific gravity measu rementOrdered By: Remus Clarisa on 12-16-2024 Specific gravity (U) [Rel density] 1.010 1.002-1.03 0 [facility] Urobilinogen Ql (U)Ordered B y: Remus Ungmaryann on 12-16-2024 Urine Urobilinogen Normal mg/dl Normal [facility] White blood cell (WBC) count Ordered By: Remus Ungmaryann on 12-16-2024 WBC (Bld) [#/Vol] 8.6 10*3/uL 4.4-11.0 [facility] White blood cell countOrdere d By: Remus Ungur on 12-16-2024 Urine WBC 0 SEEN /hpf 0-5 [facility] C-reactive protein measureme nt by high sensitivity methodOrdered By: John Mckeon on 12-08-2024 C-Reactive Protein Extended Range < 2.90 mg/L 0.0-3.0 [facility] Comment on above: C-Reactive Protein ( CRP) provides useful information for thediagnosis, therapy and monitoring of inflammatory processesand associated diseases. For the evaluation of Relative Riskfor Cardiovascular Disease, a High Sensitivity CRP (HSCRP)should be ordered. CRPon 12-08-2024 C-REACTIVE PROT < 2.90 Normal 0.0-3.0 [facility] Comment on above: Result Comment: C-Re active Protein (CRP) provides useful information for the diagnosis, therapy and monitoring of inflammatory processes and associated diseases. For the evaluation of Relative Risk for Cardiovascular Disease, a High Sensitivity CRP (HSCRP) should be ordered. Performed By: #### L 100.0100, L500.2500 #### [facility] [address] [place], [address] Erythrocyte Sed Rateon 12-08 SED RATE 8 mm/hr Normal 0-20 [facility] Comment on above: Performed By: #### L 100.0100, L500.2500 #### [facility] [address] [place], [address] Erythrocyte sedimentation ra teOrdered By: John Mckeon on 12-08-2024 ESR (Bld) [Velocity] 8 mm/h 0-20 [facility] Cardiology Visit Reporton Cardiology Visit Report [facility] [address] [place], [place] [address] OFFICE VISIT Date of Service: 11/10/24 MR#: [id number] Acct: [id number] Name: RAJAT GUZMÁN Stacia Rep #: [id number] : 1935 Provider: Dr. Timoteo Mullins MD Age/Sex: 89/M Location[place] [facility] [place] Status: Signed HPI HPI History of Present [...] fu PREV AR PT WANTS TO SWITCH Tufter Hand Required: No Accompanied by: Self Is patient [...] Chest pain, precordial Atherosclerotic heart disease of [place] coronary artery without angina pectoris Dyspnea Fatigue [...] Son De (more content not included)... Normal [facility] CBC W/Diff, Automatedon 11-0 Absolute Lymph 1.64 X10 3/uL Normal 0.83-4.51 [facility] Comment on above: Performed By: #### L 100.0100, L500.2500 #### [facility] [address] [place], [address] Absolute Neut 7.8 X10 3/uL High 2.0-7.7 [facility] Comment on above: Performed By: #### L 100.0100, L500.2500 #### [facility] [address] [place], [address] Basophils/100 WBC (Bld) 0.5 % Normal 0-1 [facility] Comment on above: Performed By: #### L 100.0100, L500.2500 #### [facility] [address] [place], [address] Eosinophils/100 WBC (Bld) 2.3 % Normal 0-5 [facility] Comment on above: Performed By: #### L 100.0100, L500.2500 #### [facility] [address] [place], [address] Erythrocyte distribution width (RBC) [Ratio] 14.9 % High 11.6-14.6 [facility] Comment on above: Performed By: #### L 100.0100, L500.2500 #### [facility] [address] [place], [address] Hematocrit (Bld) [Volume fraction] 36.1 % Low 40-54 [facility] Comment on above: Performed By: #### L 100.0100, L500.2500 #### [facility] [address] [place], [address] Hemoglobin (Bld) [Mass/Vol] 11.5 g/dL Low 13.0-16.5 [facility] Comment on above: Performed By: #### L 100.0100, L500.2500 #### [facility] [address] [place], [address] IG% 0.400 Normal 0.0-0.9 [facility] Comment on above: Result Comment: IG% - Immature Granulocytes (promyelocytes, myelocytes and metamyelocytes) > 1% indicates that a LEFT SHIFT is Present. Performed By: #### L 100.0100, L500.2500 #### [facility] [address] [place], [address] Lymphocytes/100 WBC (Bld) 16.1 % Low 19-41 [facility] Comment on above: Performed By: #### L 100.0100, L500.2500 #### [facility] [address] [place], [address] MCH (RBC) [Entitic mass] 29.3 pg Normal 27.0-32.0 [facility] Comment on above: Performed By: #### L 100.0100, L500.2500 #### [facility] [address] [place], [address] MCHC (RBC) [Mass/Vol] 31.9 g/dL Low 32-36 [facility] Comment on above: Performed By: #### L 100.0100, L500.2500 #### [facility] [address] [place], [address] MCV (RBC) [Entitic vol] 91.9 fL Normal 80-94 [facility] Comment on above: Performed By: #### L 100.0100, L500.2500 #### [facility] [address] [place], [address] Monocytes/100 WBC (Bld) 4.5 % Normal 0-10 [facility] Comment on above: Performed By: #### L 100.0100, L500.2500 #### [facility] [address] [place], [address] Neutrophils/100 WBC (Bld) 76.2 % High 47-70 [facility] Comment on above: Performed By: #### L 100.0100, L500.2500 #### [facility] [address] [place], [address] Nucleated RBC (Bld) [#/Vol] 0 10*3/uL Normal 0-5 [facility] Comment on above: Performed By: #### L 100.0100, L500.2500 #### [facility] [address] [place], [address] Platelet mean volume (Bld) [Entitic vol] 11.6 fL Normal 6.2-12.0 [facility] Comment on above: Performed By: #### L 100.0100, L500.2500 #### [facility] [address] [place], [address] Platelets (Bld) [#/Vol] 247 10*3/uL Normal 150-450 [facility] Comment on above: Performed By: #### L 100.0100, L500.2500 #### [facility] [address] [place], [address] RBC (Bld) [#/Vol] 3.93 10*6/uL Low 4.6-6.2 [facility] Comment on above: Performed By: #### L 100.0100, L500.2500 #### [facility] [address] [place], [address] RDW SD 50.4 fl High 35.1-43.9 [facility] Comment on above: Performed By: #### L 100.0100, L500.2500 #### [facility] [address] [place], [address] WBC (Bld) [#/Vol] 10.2 10*3/uL Normal 4.4-11.0 [facility] Comment on above: Performed By: #### L 100.0100, L500.2500 #### [facility] [address] [place], [address] CRPon 09-07-2024 C-REACTIVE PROT 6.91 mg/L High 0.0-3.0 [facility] Comment on above: Result Comment: C-Re active Protein (CRP) provides useful information for the diagnosis, therapy and monitoring of inflammatory processes and associated diseases. For the evaluation of Relative Risk for Cardiovascular Disease, a High Sensitivity CRP (HSCRP) should be ordered. Performed By: #### L 100.0100, L500.2500 #### [facility] [address] [place], [address] Comprehensive Metabolic Prof ilon 09-07-2024 Albumin [Mass/Vol] 3.7 g/dL Normal 3.2-5.0 [facility] Comment on above: Performed By: #### L 100.0100, L500.2500 #### [facility] [address] [place], [address] Albumin/Globulin [Mass ratio] 0.9 {ratio} Normal 0.9-2.4 [facility] Comment on above: Performed By: #### L 100.0100, L500.2500 #### [facility] [address] [place], [address] ALK P 72 U/L Normal 45-117 [facility] Comment on above: Performed By: #### L 100.0100, L500.2500 #### [facility] [address] [place], [address] ALT [Catalytic activity/Vol] 19 U/L Normal 16-61 [facility] Comment on above: Performed By: #### L 100.0100, L500.2500 #### [facility] [address] [place], [address] AST [Catalytic activity/Vol] 17 U/L Normal 15-37 [facility] Comment on above: Performed By: #### L 100.0100, L500.2500 #### [facility] [address] [place], [address] Bilirubin [Mass/Vol] 0.80 mg/dL Normal 0.20-1.00 [facility] Comment on above: Result Comment: For patients on eltrombopag therapy, use of Dimension [place] TBIL is not recommended. Performed By: #### L 100.0100, L500.2500 #### [facility] [address] [place], [address] BUN/CRE 19.6 RATIO Normal 10-20 [facility] Comment on above: Performed By: #### L 100.0100, L500.2500 #### [facility] [address] [place], [address] CA,Total 8.7 mg/dL Normal 8.5-10.1 [facility] Comment on above: Performed By: #### L 100.0100, L500.2500 #### [facility] [address] [place], [address] Chloride [Moles/Vol] 102 mmol/L Normal 98-107 [facility] Comment on above: Performed By: #### L 100.0100, L500.2500 #### [facility] [address] [place], [address] CO2 [Moles/Vol] 31.0 mmol/L Normal 21.0-32.0 [facility] Comment on above: Performed By: #### L 100.0100, L500.2500 #### [facility] [address] [place], [address] Creatinine [Mass/Vol] 0.87 mg/dL Normal 0.70-1.30 [facility] Comment on above: Result Comment: The validity of the calculated GFR GFRAA in patients over 70 years has not been determined. Clinical correlation is essential. Performed By: #### L 100.0100, L500.2500 #### [facility] [address] [place], [address] EST GFR - AA 107 mL/min Normal >60 [facility] Comment on above: Result Comment: Afri can Indian GFR Calc Performed By: #### L 100.0100, L500.2500 #### [facility] [address] [place], [address] GAP 5 Normal 5-15 [facility] Comment on above: Performed By: #### L 100.0100, L500.2500 #### [facility] [address] [place], [address] GFR/1.73 sq M.predicted among non-blacks MDRD (S/P/Bld) [Vol rate/Area] 88 mL/min/{1.73_m2} Normal >60 [facility] Comment on above: Result Comment: Non- GFR Calc Performed By: #### L 100.0100, L500.2500 #### [facility] [address] [place], [address] Globulin (S) [Mass/Vol] 4.1 g/dL Normal 2.2-4.2 [facility] Comment on above: Performed By: #### L 100.0100, L500.2500 #### [facility] [address] [place], [address] Glucose [Mass/Vol] 128 mg/dL High 74-106 [facility] Comment on above: Result Comment: Fast ing Glucose result greater than or equal to 126 mg/dL suggests DIABETES MELLITUS per A.D.A. criteria. Performed By: #### L 100.0100, L500.2500 #### [facility] [address] [place], [address] Potassium [Moles/Vol] 3.1 mmol/L Low 3.5-5.1 [facility] Comment on above: Performed By: #### L 100.0100, L500.2500 #### [facility] [address] [place], [address] Sodium [Moles/Vol] 139 mmol/L Normal 136-145 [facility] Comment on above: Performed By: #### L 100.0100, L500.2500 #### [facility] [address] [place], [address] T PROT 7.8 g/dL Normal 6.4-8.2 [facility] Comment on above: Performed By: #### L 100.0100, L500.2500 #### [facility] [address] [place], [address] Urea nitrogen [Mass/Vol] 17 mg/dL Normal 7-18 [facility] Comment on above: Performed By: #### L 100.0100, L500.2500 #### [facility] [address] [place], [address] Erythrocyte Sed Rateon 09-07 SED RATE 20 mm/hr Normal 0-20 [facility] Comment on above: Performed By: #### L 100.0100, L500.2500 #### [facility] [address] [place], [address] Testosterone, Serum Totalon 09-07-2024 Testosterone [Mass/Vol] ng/dL Normal [facility] Comment on above: Result Comment: CENT RAL 90% REFERENCE RANGES MALE AGE <50 197.44 - 669.58 ng/dL MALE AGE > or = 50 187.72 - 684.19 ng/dL FEMALE AGE <50 8.38 - 35.01 ng/dL FEMALE AGE > or = 50 <7.00 - 35.92 ng/dL Effective as of 05/27/21 Performed By: #### L 100.0100, L500.2500 #### [facility] [address] [place], [address] Thyroid Stim Hormone (TSH)on 09-07-2024 TSH 0.861 uIU/mL Normal 0.358-3.74 0 [facility] Comment on above: Performed By: #### L 100.0100, L500.2500 #### [facility] [address] [place], [address] CRPon 08-03-2024 C-REACTIVE PROT 8.47 mg/L High 0.0-3.0 [facility] Comment on above: Result Comment: C-Re active Protein (CRP) provides useful information for the diagnosis, therapy and monitoring of inflammatory processes and associated diseases. For the evaluation of Relative Risk for Cardiovascular Disease, a High Sensitivity CRP (HSCRP) should be ordered. Performed By: #### L 100.0100, L500.2500 #### [facility] [address] [place], [address] Erythrocyte Sed Rateon 08-03 SED RATE 12 mm/hr Normal 0-20 [facility] Comment on above: Performed By: #### L 100.0100, L500.2500 #### [facility] [address] [place], [address] CT ABDOMEN PELVIS W IV CONTR [place] 07-10-2024 CT ABDOMEN PELVIS W IV CONTRAST Interpreted By: Sharan Recio, STUDY: CT ABDOMEN PELVIS W IV CONTRAST; 07/10/2024 3:18 pm INDICATION: Signs/Symptoms:PROSTATE CANCER. ,C61 Malignant neoplasm of prostate (Multi) COMPARISON: None. ACCESSION NUMBER(S): [id number] ORDERING CLINICIAN: ASMITA ZAMBRANO TECHNIQUE: CT of [...] Sharan Recio 07/11/2024 6:02 PM Dictation workstation: [id number] [facility] Serum Creatinine AND GFRon 0 07-06-2024 Creatinine [Mass/Vol] 1.03 mg/dL Normal 0.70-1.30 [facility] Comment on above: Result Comment: The validity of the calculated GFR GFRAA in patients over 70 years has not been determined. Clinical correlation is essential. Performed By: #### L 501.1105 #### [facility] [address] [place], [place], [id number] EST GFR - AA 88 mL/min Normal >60 [facility] Comment on above: Result Comment: Afri can Indian GFR Calc Performed By: #### L 501.1105 #### [facility] [address] [place], [place], [address] GFR/1.73 sq M.predicted among non-blacks MDRD (S/P/Bld) [Vol rate/Area] 72 mL/min/{1.73_m2} Normal >60 [facility] Comment on above: Result Comment: Non- GFR Calc Performed By: #### L 501.1105 #### [facility] [address] [place], [place], [address] Surgical pathology studyon 0 06-14-2024 Surgical pathology study Pathology report.total SEE COMMENT Surgical Pathology Case: [id number] Authorizing Provider: Asmita Zambrano MD Collected: 06/14/2024 1245 Ordering Location: [facility] Received: 06/14/2024 1248 Pathologist: Moncho Carrillo MD [...] prostatic origin. PIN4 immunostain cocktail (including p63, [id number] and AMACR) shows loss of basal cells, confirming the diagnosis of adenocarcinoma. B. 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 SEE NOTE. Note: PIN4 immunostain cocktail (including p63, [id number] and AMACR) shows loss of basal cells, [...] is submitted in toto in two cassettes. [facility] AP ASR DISCLAIMER One or more of the reagents used to perform assays on this specimen MAY have contained components considered to be analyte specific reagents (ASR's). ASR's have not been cleared or approved by the U.S. Food and Drug Administration. These assays were developed and their performance characteristics determined by the Department of Pathology at [facility]. The FDA does not require this test to go through premarket FDA review. This test is used for clinical purposes. It should not be regarded as investigational or for research. This laboratory is certified under the Clinical Laboratory Improvement Amendments (CLIA) as qualified to perform high complexity clinical laboratory testing. The assays were performed with appropriate positive and negative controls which stained appropriately. [facility] Urine Cultureon 06-03-2024 [facility] Copy of report sent to Infection Control Printer [id number] 06/03/24 0721 BLUCAS. ESBL Escherichia coli [place] Count >100,000 MARKER A ESBL producing Organism [...] S Cefuroxime Islt ALEX >=64 R Normal [facility] Comment on above: Performed By: #### L 501.9940 #### [facility] [address] [place], [address] CBC W/Diff, Automatedon 05-03 Absolute Lymph 1.36 X10 3/uL Normal 0.83-4.51 [facility] Comment on above: Performed By: #### L 500.4050, L100.0100, L101.9900, L501.6710 #### [facility] [address] [place], [address] Absolute Neut 5.8 X10 3/uL Normal 2.0-7.7 [facility] Comment on above: Performed By: #### L 500.4050, L100.0100, L101.9900, L501.6710 #### [facility] [address] [place], [address] Basophils/100 WBC (Bld) 0.5 % Normal 0-1 [facility] Comment on above: Performed By: #### L 500.4050, L100.0100, L101.9900, L501.6710 #### [facility] [address] [place], [address] Eosinophils/100 WBC (Bld) 0.1 % Normal 0-5 [facility] Comment on above: Performed By: #### L 500.4050, L100.0100, L101.9900, L501.6710 #### [facility] [address] [place], [address] Erythrocyte distribution width (RBC) [Ratio] 14.0 % Normal 11.6-14.6 [facility] Comment on above: Performed By: #### L 500.4050, L100.0100, L101.9900, L501.6710 #### [facility] [address] [place], [address] Hematocrit (Bld) [Volume fraction] 35.5 % Low 40-54 [facility] Comment on above: Performed By: #### L 500.4050, L100.0100, L101.9900, L501.6710 #### [facility] [address] [place], [address] Hemoglobin (Bld) [Mass/Vol] 11.5 g/dL Low 13.0-16.5 [facility] Comment on above: Performed By: #### L 500.4050, L100.0100, L101.9900, L501.6710 #### [facility] [address] [place], [address] IG% 0.400 Normal 0.0-0.9 [facility] Comment on above: Result Comment: IG% - Immature Granulocytes (promyelocytes, myelocytes and metamyelocytes) > 1% indicates that a LEFT SHIFT is Present. Performed By: #### L 500.4050, L100.0100, L101.9900, L501.6710 #### [facility] [address] [place], [address] Lymphocytes/100 WBC (Bld) 16.6 % Low 19-41 [facility] Comment on above: Performed By: #### L 500.4050, L100.0100, L101.9900, L501.6710 #### [facility] [address] [place], [address] MCH (RBC) [Entitic mass] 28.6 pg Normal 27.0-32.0 [facility] Comment on above: Performed By: #### L 500.4050, L100.0100, L101.9900, L501.6710 #### [facility] [address] [place], [address] MCHC (RBC) [Mass/Vol] 32.4 g/dL Normal 32-36 [facility] Comment on above: Performed By: #### L 500.4050, L100.0100, L101.9900, L501.6710 #### [facility] [address] [place], [address] MCV (RBC) [Entitic vol] 88.3 fL Normal 80-94 [facility] Comment on above: Performed By: #### L 500.4050, L100.0100, L101.9900, L501.6710 #### [facility] [address] [place], [address] Monocytes/100 WBC (Bld) 12.1 % High 0-10 [facility] Comment on above: Performed By: #### L 500.4050, L100.0100, L101.9900, L501.6710 #### [facility] [address] [place], [address] Neutrophils/100 WBC (Bld) 70.3 % High 47-70 [facility] Comment on above: Performed By: #### L 500.4050, L100.0100, L101.9900, L501.6710 #### [facility] [address] [place], [address] Nucleated RBC (Bld) [#/Vol] 0 10*3/uL Normal 0-5 [facility] Comment on above: Performed By: #### L 500.4050, L100.0100, L101.9900, L501.6710 #### [facility] [address] [place], [address] Platelet mean volume (Bld) [Entitic vol] 12.4 fL High 6.2-12.0 [facility] Comment on above: Performed By: #### L 500.4050, L100.0100, L101.9900, L501.6710 #### [facility] [address] [place], [address] Platelets (Bld) [#/Vol] 214 10*3/uL Normal 150-450 [facility] Comment on above: Performed By: #### L 500.4050, L100.0100, L101.9900, L501.6710 #### [facility] [address] [place], [address] RBC (Bld) [#/Vol] 4.02 10*6/uL Low 4.6-6.2 [facility] Comment on above: Performed By: #### L 500.4050, L100.0100, L101.9900, L501.6710 #### [facility] [address] [place], [address] RDW SD 45.4 fl High 35.1-43.9 [facility] Comment on above: Performed By: #### L 500.4050, L100.0100, L101.9900, L501.6710 #### [facility] [address] [place], [address] WBC (Bld) [#/Vol] 8.2 10*3/uL Normal 4.4-11.0 [facility] Comment on above: Performed By: #### L 500.4050, L100.0100, L101.9900, L501.6710 #### [facility] [address] [place], [address] CRPon 05-30-2024 C-REACTIVE PROT 97.30 mg/L High 0.0-3.0 [facility] Comment on above: Order Comment: URINE SUPPLIES GIVEN,PT UTV. RANGLE Result Comment: C-Re active Protein (CRP) provides useful information for the diagnosis, therapy and monitoring of inflammatory processes and associated diseases. For the evaluation of Relative Risk for Cardiovascular Disease, a High Sensitivity CRP (HSCRP) should be ordered. Performed By: #### L 500.4050, L100.0100, L101.9900, L501.6710 #### [facility] [address] [place], [address] Comprehensive Metabolic Prof ilon 05-30-2024 Albumin [Mass/Vol] 3.0 g/dL Low 3.2-5.0 [facility] Comment on above: Order Comment: URINE SUPPLIES GIVEN,PT UTV. RANGLE Performed By: #### L 500.4050, L100.0100, L101.9900, L501.6710 #### [facility] [address] [place], [address] Albumin/Globulin [Mass ratio] 0.7 {ratio} Low 0.9-2.4 [facility] Comment on above: Order Comment: URINE SUPPLIES GIVEN,PT UTV. RANGLE Performed By: #### L 500.4050, L100.0100, L101.9900, L501.6710 #### [facility] [address] [place], [address] ALK P 63 U/L Normal 45-117 [facility] Comment on above: Order Comment: URINE SUPPLIES GIVEN,PT UTV. RANGLE Performed By: #### L 500.4050, L100.0100, L101.9900, L501.6710 #### [facility] [address] [place], [address] ALT [Catalytic activity/Vol] 11 U/L Low 16-61 [facility] Comment on above: Order Comment: URINE SUPPLIES GIVEN,PT UTV. RANGLE Performed By: #### L 500.4050, L100.0100, L101.9900, L501.6710 #### [facility] [address] [place], [address] AST [Catalytic activity/Vol] 24 U/L Normal 15-37 [facility] Comment on above: Order Comment: URINE SUPPLIES GIVEN,PT UTV. RANGLE Performed By: #### L 500.4050, L100.0100, L101.9900, L501.6710 #### [facility] [address] [place], [address] Bilirubin [Mass/Vol] 1.60 mg/dL High 0.20-1.00 [facility] Comment on above: Order Comment: URINE SUPPLIES GIVEN,PT UTV. RANGLE Result Comment: For patients on eltrombopag therapy, use of Dimension [place] TBIL is not recommended. Performed By: #### L 500.4050, L100.0100, L101.9900, L501.6710 #### [facility] [address] [place], [address] BUN/CRE 18.2 RATIO Normal 10-20 [facility] Comment on above: Order Comment: URINE SUPPLIES GIVEN,PT UTV. RANGLE Performed By: #### L 500.4050, L100.0100, L101.9900, L501.6710 #### [facility] [address] [place], [address] CA,Total 8.6 mg/dL Normal 8.5-10.1 [facility] Comment on above: Order Comment: URINE SUPPLIES GIVEN,PT UTV. RANGLE Performed By: #### L 500.4050, L100.0100, L101.9900, L501.6710 #### [facility] [address] [place], [address] Chloride [Moles/Vol] 102 mmol/L Normal 98-107 [facility] Comment on above: Order Comment: URINE SUPPLIES GIVEN,PT UTV. RANGLE Performed By: #### L 500.4050, L100.0100, L101.9900, L501.6710 #### [facility] [address] [place], [address] CO2 [Moles/Vol] 23.0 mmol/L Normal 21.0-32.0 [facility] Comment on above: Order Comment: URINE SUPPLIES GIVEN,PT UTV. RANGLE Performed By: #### L 500.4050, L100.0100, L101.9900, L501.6710 #### [facility] [address] [place], [address] Creatinine [Mass/Vol] 1.21 mg/dL Normal 0.70-1.30 [facility] Comment on above: Order Comment: URINE SUPPLIES GIVEN,PT UTV. RANGLE Result Comment: The validity of the calculated GFR GFRAA in patients over 70 years has not been determined. Clinical correlation is essential. Performed By: #### L 500.4050, L100.0100, L101.9900, L501.6710 #### [facility] [address] [place], [address] EST GFR - AA 73 mL/min Normal >60 [facility] Comment on above: Order Comment: URINE SUPPLIES GIVEN,PT UTV. RANGLE Result Comment: Afri can Indian GFR Calc Performed By: #### L 500.4050, L100.0100, L101.9900, L501.6710 #### [facility] [address] [place], [address] GAP 10 Normal 5-15 [facility] Comment on above: Order Comment: URINE SUPPLIES GIVEN,PT UTV. RANGLE Performed By: #### L 500.4050, L100.0100, L101.9900, L501.6710 #### [facility] [address] [place], [address] GFR/1.73 sq M.predicted among non-blacks MDRD (S/P/Bld) [Vol rate/Area] 60 mL/min/{1.73_m2} Normal >60 [facility] Comment on above: Order Comment: URINE SUPPLIES GIVEN,PT UTV. RANGLE Result Comment: Non- GFR Calc Performed By: #### L 500.4050, L100.0100, L101.9900, L501.6710 #### [facility] [address] [place], [address] Globulin (S) [Mass/Vol] 4.4 g/dL High 2.2-4.2 [facility] Comment on above: Order Comment: URINE SUPPLIES GIVEN,PT UTV. RANGLE Performed By: #### L 500.4050, L100.0100, L101.9900, L501.6710 #### [facility] [address] [place], [address] Glucose [Mass/Vol] 137 mg/dL High 74-106 [facility] Comment on above: Order Comment: URINE SUPPLIES GIVEN,PT UTV. RANGLE Result Comment: Fast ing Glucose result greater than or equal to 126 mg/dL suggests DIABETES MELLITUS per A.D.A. criteria. Performed By: #### L 500.4050, L100.0100, L101.9900, L501.6710 #### [facility] [address] [place], [address] Potassium [Moles/Vol] 3.1 mmol/L Low 3.5-5.1 [facility] Comment on above: Order Comment: URINE SUPPLIES GIVEN,PT UTV. RANGLE Performed By: #### L 500.4050, L100.0100, L101.9900, L501.6710 #### [facility] [address] [place], [address] Sodium [Moles/Vol] 135 mmol/L Low 136-145 [facility] Comment on above: Order Comment: URINE SUPPLIES GIVEN,PT UTV. RANGLE Performed By: #### L 500.4050, L100.0100, L101.9900, L501.6710 #### [facility] [address] [place], [address] T PROT 7.4 g/dL Normal 6.4-8.2 [facility] Comment on above: Order Comment: URINE SUPPLIES GIVEN,PT UTV. RANGLE Performed By: #### L 500.4050, L100.0100, L101.9900, L501.6710 #### [facility] [address] [place], [address] Urea nitrogen [Mass/Vol] 22 mg/dL High 7-18 [facility] Comment on above: Order Comment: URINE SUPPLIES GIVEN,PT UTV. RANGLE Performed By: #### L 500.4050, L100.0100, L101.9900, L501.6710 #### [facility] [address] [place], [address] Erythrocyte Sed Rateon 07-30 -2024 SED RATE 18 mm/hr Normal 0-20 [facility] Comment on above: Performed By: #### L 500.4050, L100.0100, L101.9900, L501.6710 #### [facility] [address] [place], [address] Cardiology Visit Reporton Cardiology Visit Report [facility] [address] [place] [address] OFFICE VISIT Date of Service: 05/23/24 MR#: [id number] Acct: [id number] Name: RAJAT GUZMÁN Rep #: [id number] : 1935 Provider: MORTEZA frazier Age/Sex: 89/M Location: [facility] Status: Signed HPI HPI History of Present [...] NIBP Intake Visit Reasons: 6 M FU Tufter Hand Required: No Is patient in pain?: No [...] Chest pain, precordial Atherosclerotic heart disease of [place] coronary artery without angina pectoris Dyspnea Fatigue [...] Never smo (more content not included)... Normal [facility] PSA,Total- Diagnosticon 05-01 PSA, DIAGNOSTIC 19.90 ng/mL High 0.0-4.0 [facility] Comment on above: Result Comment: This test was performed using the TPSA assay method for the Xfire chemistry system. Values obtained with different assay methods cannot be used interchangably. When changing PSA assays in the course of monitoring a patient, additional sequential testing should be carried out to confirm baseline values. Performed By: #### L 501.9940, L501.1105 #### [facility] [address] [place], [place], [id number] Serum Creatinine AND GFRon 0 05-17-2024 Creatinine [Mass/Vol] 0.92 mg/dL Normal 0.70-1.30 [facility] Comment on above: Result Comment: The validity of the calculated GFR GFRAA in patients over 70 years has not been determined. Clinical correlation is essential. Performed By: #### L 501.9940, L501.1105 #### [facility] [address] [place], [address] EST GFR - AA 100 mL/min Normal >60 [facility] Comment on above: Result Comment: Afri can Indian GFR Calc Performed By: #### L 501.9940, L501.1105 #### [facility] [address] [place], [place], [address] GFR/1.73 sq M.predicted among non-blacks MDRD (S/P/Bld) [Vol rate/Area] 83 mL/min/{1.73_m2} Normal >60 [facility] Comment on above: Result Comment: Non- GFR Calc Performed By: #### L 501.9940, L501.1105 #### [facility] [address] [place], [address] Basophil percentageOrdered B y: John Mckeon on 11-26-2023 Chloride [Moles/Vol] 105 mmol/L 98-107 [facility] Glucose [Mass/Vol] 102 mg/dL 74-106 [facility] Comment on above: Fasting Glucose resu lt from 100 to 125 mg/dL suggests IMPAIRED HOMEOSTASIS per A.D.A. criteria. Potassium [Moles/Vol] 4.0 mmol/L 3.5-5.1 [facility] Sodium [Moles/Vol] 137 mmol/L 136-145 [facility] - Chemistry and C hemistry - challengeOrdered By: John Mckeon on 11-26-2023 CO2 [Moles/Vol] 26.0 mmol/L 21.0-32.0 [facility] Magnesium [Mass/Vol] 2.4 mg/dL 1.6-2.6 [facility] Urea nitrogen/Creatinine [Mass ratio] 16.8 mg/mg 10-20 [facility] No Panel InformationOrdered By: John Mckeon on 11-26-2023 Estimated GFR (MDRD) Amer 112 mL/min >60 [facility] Comment on above: GFR Calc Estimated GFR (MDRD) Non-Af Amer 93 mL/min >60 [facility] Comment on above: Non- GFR Calc Serum or plasma calcium alfonso urement (mass/volume)Ordered By: John Mckeon on 11-26-2023 Calcium [Mass/Vol] 9.1 mg/dL 8.5-10.1 [facility] Serum or plasma creatinine m easurement (mass/volume)Ordered [...] 11-26-2023 Urea nitrogen [Mass/Vol] 14 mg/dL 7-18 [facility] Thin prep Papanicolaou smear with manual screeningOrdered By: John Mckeon on 11-26-2023 Thin prep Papanicolaou smear with manual screening 6 - [facility] INR in Blood by Coagulation assayOrdered By: Zacarias Valdes on 10-12-2023 INR Coag (Bld) [Relative time] 1.0 {INR} [facility] - CoagulationOrde red By: Zacarias Valdes on 10-12-2023 aPTT Coag (Bld) [Time] 28.7 s 24.1-36.2 [facility] PT Coag (PPP) [Time] 12.9 s 11.7-14.9 [facility] Culture, urineOrdered By: Nestor Mckeon on 09-15-2023 Bacteria identified Cx Nom (U) GPC Poss Enterococcus sp [facility] Basophil percentageOrdered B y: Manisha Varela on 09-06-2023 Chloride [Moles/Vol] 108 mmol/L 98-107 [facility] Glucose [Mass/Vol] 200 mg/dL 74-106 [facility] Comment on above: Glucose result great er than or equal to 200 mg/dLsuggests DIABETES MELLITUS per A.D.A. criteria. Potassium [Moles/Vol] 3.3 mmol/L 3.5-5.1 [facility] Sodium [Moles/Vol] 139 mmol/L 136-145 [facility] - Chemistry and C hemistry - challengeOrdered By: Manisha Varela on 09-06-2023 CO2 [Moles/Vol] 24.0 mmol/L 21.0-32.0 [facility] Urea nitrogen/Creatinine [Mass ratio] 23.3 mg/mg 10-20 [facility] No Panel InformationOrdered By: Manisha Varela on 09-06-2023 Estimated Creatinine Clearance Calc 40.32 ml/min [facility] Estimated GFR (MDRD) Amer 102 mL/min >60 [facility] Comment on above: GFR Calc Estimated GFR (MDRD) Non-Af Amer 84 mL/min >60 [facility] Comment on above: Non- GFR Calc Serum or plasma calcium alfonso urement (mass/volume)Ordered By: Manisha Varela on 09-06-2023 Calcium [Mass/Vol] 8.2 mg/dL 8.5-10.1 [facility] Serum or plasma creatinine m easurement (mass/volume)Ordered [...] 09-06-2023 Urea nitrogen [Mass/Vol] 21 mg/dL 7-18 [facility] Thin prep Papanicolaou smear with manual screeningOrdered By: Manisha Varela on 09-06-2023 Thin prep Papanicolaou smear with manual screening 7 5-15 [facility] Absolute lymphocyte countOrd ered By: Manisha Varela on 09-05-2023 Lymphocytes Auto (Unsp spec) [#/Vol] 1.75 10*3/uL 0.83-4.51 [facility] Basophil percentageOrdered B y: Manisha Varela on 09-05-2023 Basophils/100 WBC (Bld) 0.5 % 0-1 [facility] Chloride [Moles/Vol] 106 mmol/L 98-107 [facility] Eosinophils/100 WBC (Bld) 1.9 % 0-5 [facility] Glucose [Mass/Vol] 64 mg/dL 74-106 [facility] Neutrophils (Bld) [#/Vol] 5.3 10*3/uL 2.0-7.7 [facility] Neutrophils/100 WBC (Bld) 64.8 % 47-70 [facility] Potassium [Moles/Vol] 4.0 mmol/L 3.5-5.1 [facility] Sodium [Moles/Vol] 137 mmol/L 136-145 [facility] WBC (Bld) [#/Vol] 8.2 10*3/uL 4.4-11.0 [facility] Blood erythrocytes count (nu mber/volume)Ordered By: Manisha Varela on 09-05-2023 RBC (Bld) [#/Vol] 3.50 10*6/uL 4.6-6.2 [facility] Blood hemoglobin measurement (mass/volume)Ordered By: Manisha Varela on 09-05-2023 Hemoglobin (Bld) [Mass/Vol] 10.3 g/dL 13.0-16.5 [facility] Blood lymphocytes/100 leukoc ytesOrdered By: Manisha Varela on 09-05-2023 Lymphocytes/100 WBC (Bld) 21.3 % 19-41 [facility] Blood monocytes/100 leukocyt esOrdered By: Manisha Varela on 09-05-2023 Monocytes/100 WBC (Bld) 11.3 % 0-10 [facility] Blood platelet mean volumeOr dered By: Manisha Varela on 09-05-2023 Platelet mean volume (Bld) [Entitic vol] 11.8 fL 6.2-12.0 [facility] Determination of erythrocyte mean corpuscular volume (MCV)Ordered By: Manisha Varela on 09-05-2023 MCV (RBC) [Entitic vol] 93.4 fL 80-94 [facility] Hematocrit Auto (Bld) [Volum e fraction]Ordered By: Manisha Varela on 09-05-2023 Hematocrit (Bld) [Volume fraction] 32.7 % 40-54 [facility] - Chemistry and C hemistry - challengeOrdered By: Manisha Varela on 09-05-2023 CO2 [Moles/Vol] 19.0 mmol/L 21.0-32.0 [facility] Urea nitrogen/Creatinine [Mass ratio] 28.1 mg/mg 10-20 [facility] - Hematology and Cell countsOrdered By: Manisha Varela on 09-05-2023 Erythrocyte distribution width (RBC) [Entitic vol] 49.9 fL 35.1-43.9 [facility] Erythrocyte distribution width (RBC) [Ratio] 14.6 % 11.6-14.6 [facility] Immature granulocytes/100 WBC (Bld) 0.200 % 0.0-0.9 [facility] Comment on above: IG% - Immature Granu locytes (promyelocytes, myelocytes and metamyelocytes) > 1% indicates that a LEFT SHIFT is Present. MCH (RBC) [Entitic mass] 29.4 pg 27.0-32.0 [facility] Nucleated RBC/100 WBC (Bld) [Ratio] 0 % 0-5 [facility] MCHC Auto (RBC) [Mass/Vol]Or dered By: Manisha Varela on 09-05-2023 MCHC (RBC) [Mass/Vol] 31.5 g/dL 32-36 [facility] No Panel InformationOrdered By: Manisha Varela on 09-05-2023 Estimated Creatinine Clearance Calc 36.29 ml/min [facility] Estimated GFR (MDRD) Amer 91 mL/min >60 [facility] Comment on above: GFR Calc Estimated GFR (MDRD) Non-Af Amer 75 mL/min >60 [facility] Comment on above: Non- GFR Calc Platelets bldOrdered By: Andrew Varela on 09-05-2023 Platelets (Bld) [#/Vol] 183 10*3/uL 150-450 [facility] Serum or plasma calcium alfonso urement (mass/volume)Ordered By: Manisha Varela on 09-05-2023 Calcium [Mass/Vol] 8.4 mg/dL 8.5-10.1 [facility] Serum or plasma creatinine m easurement (mass/volume)Ordered [...] 09-05-2023 Urea nitrogen [Mass/Vol] 28 mg/dL 7-18 [facility] Thin prep Papanicolaou smear with manual screeningOrdered By: Manisha Varela on 09-05-2023 Thin prep Papanicolaou smear with manual screening 12 5-15 [facility] Absolute lymphocyte countOrd ered By: Robbi Hopkins on 09-04-2023 Lymphocytes Auto (Unsp spec) [#/Vol] 1.47 10*3/uL 0.83-4.51 [facility] Basophil percentageOrdered B y: Robbi Hopkins on 09-04-2023 Basophils/100 WBC (Bld) 0.4 % 0-1 [facility] Bilirubin [Mass/Vol] 1.80 mg/dL 0.20-1.00 [facility] Comment on above: For patients on eltr ombopag therapy, use of Dimension [place] TBIL is not recommended. Chloride [Moles/Vol] 101 mmol/L 98-107 [facility] Eosinophils/100 WBC (Bld) 0.2 % 0-5 [facility] Glucose [Mass/Vol] 94 mg/dL 74-106 [facility] Neutrophils (Bld) [#/Vol] 10.3 10*3/uL 2.0-7.7 [facility] Neutrophils/100 WBC (Bld) 77.7 % 47-70 [facility] Potassium [Moles/Vol] 4.2 mmol/L 3.5-5.1 [facility] Protein [Mass/Vol] 7.2 g/dL 6.4-8.2 [facility] Sodium [Moles/Vol] 134 mmol/L 136-145 [facility] WBC (Bld) [#/Vol] 13.2 10*3/uL 4.4-11.0 [facility] Basophil percentage 5-10 SEEN /hpf 0-5 [facility] Bilirubin Test strip Ql (U)O rdered By: Robbi Hopkins on 09-04-2023 Bilirubin Ql (U) Negative Negative [facility] Blood erythrocytes count (nu mber/volume)Ordered By: Robbi Hopkins on 09-04-2023 RBC (Bld) [#/Vol] 3.84 10*6/uL 4.6-6.2 [facility] Blood hemoglobin measurement (mass/volume)Ordered By: Robbi Hopkins on 09-04-2023 Hemoglobin (Bld) [Mass/Vol] 11.3 g/dL 13.0-16.5 [facility] Blood lymphocytes/100 leukoc ytesOrdered By: Robbi Hopkins on 09-04-2023 Lymphocytes/100 WBC (Bld) 11.1 % 19-41 [facility] Blood monocytes/100 leukocyt esOrdered By: Robbi Hopkins on 09-04-2023 Monocytes/100 WBC (Bld) 10.2 % 0-10 [facility] Blood platelet mean volumeOr dered By: Robbi Hopkins on 09-04-2023 Platelet mean volume (Bld) [Entitic vol] 11.7 fL 6.2-12.0 [facility] Culture, urineOrdered By: Umer Hopkins on 09-04-2023 Bacteria identified Cx Nom (U) Staphylococcus lugdunensis [facility] Determination of erythrocyte mean corpuscular volume (MCV)Ordered By: Robbi Hopkins on 09-04-2023 MCV (RBC) [Entitic vol] 93.0 fL 80-94 [facility] Hematocrit Auto (Bld) [Volum e fraction]Ordered By: Robbi Hopkins on 09-04-2023 Hematocrit (Bld) [Volume fraction] 35.7 % 40-54 [facility] Ketones Test strip Ql (U)Ord ered By: Robbi Hopkins on 09-04-2023 Ketones Ql (U) 50 mg/dl Negative [facility] - Chemistry and C hemistry - challengeOrdered By: Robbi Hopkins on 09-04-2023 ALP [Catalytic activity/Vol] 54 U/L 45-117 [facility] ALT [Catalytic activity/Vol] 11 U/L 16-61 [facility] CO2 [Moles/Vol] 17.0 mmol/L 21.0-32.0 [facility] Globulin (S) [Mass/Vol] 3.8 g/dL 2.2-4.2 [facility] Lipase [Catalytic activity/Vol] 11 U/L 13-75 [facility] Comment on above: Please note:LIPASE r evised reference range effective 23. New Lipase methodology. Expected to produce lower values than the previous assay method. NEW Reference Range: 13 - 75 U/L Urea nitrogen/Creatinine [Mass ratio] 25.2 mg/mg 10-20 [facility] - Hematology and Cell countsOrdered By: Robbi Hopkins on 09-04-2023 Erythrocyte distribution width (RBC) [Entitic vol] 49.5 fL 35.1-43.9 [facility] Erythrocyte distribution width (RBC) [Ratio] 14.6 % 11.6-14.6 [facility] Immature granulocytes/100 WBC (Bld) 0.400 % 0.0-0.9 [facility] Comment on above: IG% - Immature Granu locytes (promyelocytes, myelocytes and metamyelocytes) > 1% indicates that a LEFT SHIFT is Present. MCH (RBC) [Entitic mass] 29.4 pg 27.0-32.0 [facility] Nucleated RBC/100 WBC (Bld) [Ratio] 0 % 0-5 [facility] MCHC Auto (RBC) [Mass/Vol]Or dered By: Robbi Hopkins on 09-04-2023 MCHC (RBC) [Mass/Vol] 31.7 g/dL 32-36 [facility] Mucus LM Ql (Urine sed)Order ed By: Robbi Hopkins on 09-04-2023 Mucus Ql (Urine sed) 0 SEEN /hpf [facility] Nitrite Test strip Ql (U)Ord ered By: Robbi Hopkins on 09-04-2023 Nitrite Ql (U) Positive Negative [facility] No Panel InformationOrdered By: Robbi Hopkins on 09-04-2023 Estimated Creatinine Clearance Calc 27.02 ml/min [facility] Estimated GFR (MDRD) Amer 62 mL/min >60 [facility] Comment on above: GFR Calc Estimated GFR (MDRD) Non-Af Amer 51 mL/min >60 [facility] Comment on above: Non- GFR Calc Platelets bldOrdered By: Coco Hopkins on 09-04-2023 Platelets (Bld) [#/Vol] 208 10*3/uL 150-450 [facility] Protein Test strip Ql (U)Ord ered By: Robbi Hopkins on 09-04-2023 Protein Ql (U) 15 mg/dl Negative [facility] Serum or plasma albumin alfonso urement (mass/volume)Ordered By: Robbi Hopkins on 09-04-2023 Albumin [Mass/Vol] 3.4 g/dL 3.2-5.0 [facility] Serum or plasma albumin/glob ulin mass ratioOrdered By: Robbi Hopkins on 09-04-2023 Albumin/Globulin [Mass ratio] 0.9 {ratio} 0.9-2.4 [facility] [facility] Serum or plasma calcium alfonso urement (mass/volume)Ordered By: Robbi Hopkins on 09-04-2023 Calcium [Mass/Vol] 8.7 mg/dL 8.5-10.1 [facility] Serum or plasma creatinine m easurement (mass/volume)Ordered [...] 09-04-2023 Urea nitrogen [Mass/Vol] 35 mg/dL 7-18 [facility] Squamous epithelial cells de tection in urine sediment by light microscopyOrdered By: Robbi Hopkins on 09-04-2023 Epithelial cells.squamous LM Ql (Urine sed) 0 SEEN /hpf 0-5 [facility] Thin prep Papanicolaou smear with manual screeningOrdered By: Robbi Hopkins on 09-04-2023 Thin prep Papanicolaou smear with manual screening 10 U/L 15-37 [facility] Thin prep Papanicolaou smear with manual screening 16 5-15 [facility] Urine blood detectionOrdered By: Robbi Hopkins on 09-04-2023 RBC Ql (U) 150 /ul Negative [facility] RBC Ql (U) 0-5 SEEN /hpf 0-5 [facility] Urine clarityOrdered By: Coco Hopkins on 09-04-2023 Clarity (U) Sl. Cloudy Clear [facility] Urine color determinationOrd ered By: Robbi Hopkins on 09-04-2023 Color (U) Yellow Yellow [facility] Urine glucose detectionOrder ed By: Robbi Hopkins on 09-04-2023 Glucose Ql (U) Normal mg/dl Normal [facility] Urine leukocyte esterase det ection by dipstickOrdered By: Robbi Hopkins on 09-04-2023 Leukocyte esterase Test strip Ql (U) 25 /ul Negative [facility] Urine pHOrdered By: Robbi delgadillo on 09-04-2023 pH (U) 6.0 [pH] 5.0 - 8.0 [facility] Urine sediment bacteria coun t by microscopy (number/high power field)Ordered By: Robbi Hopkins on 09-04-2023 Bacteria LM.HPF (Urine sed) [#/Area] 1 /[HPF] None Seen [facility] Urine specific gravity measu rementOrdered By: Robbi Hopkins on 09-04-2023 Specific gravity (U) [Rel density] 1.020 1.002-1.03 0 [facility] Urobilinogen Auto test strip Ql (U)Ordered By: Robbi Hopkins on 09-04-2023 Urobilinogen Ql (U) Normal mg/dl Normal [facility] No Panel InformationOrdered By: Faisal Barth on 08-31-2023 Prostate Specific Antigen Total 18.80 ng/mL 0.0-4.0 [facility] Comment on above: This test was perfor med using the TPSA assay method for theDimension chemistry system. Values obtained with differentassay methods cannot be used interchangably.When changing PSA assays in the course of monitoring apatient, additional sequential testing should be carriedout to confirm baseline values. Basophil percentageOrdered B y: Cynthia Bowen on 07-20-2023 Chloride [Moles/Vol] 106 mmol/L 98-107 [facility] Glucose [Mass/Vol] 114 mg/dL 74-106 [facility] Comment on above: Fasting Glucose resu lt from 100 to 125 mg/dL suggests IMPAIRED HOMEOSTASIS per A.D.A. criteria. Potassium [Moles/Vol] 4.1 mmol/L 3.5-5.1 [facility] Sodium [Moles/Vol] 139 mmol/L 136-145 [facility] Laboratory - Chemistry and C hemistry - challengeOrdered By: Cynthia Bowen on 07-20-2023 CO2 [Moles/Vol] 30.0 mmol/L 21.0-32.0 [facility] Urea nitrogen/Creatinine [Mass ratio] 16.6 mg/mg 10-20 [facility] No Panel InformationOrdered By: Cynthia Bowen on 07-20-2023 Estimated GFR (MDRD) Amer 95 mL/min >60 [facility] Comment on above: GFR Calc Estimated GFR (MDRD) Non-Af Amer 78 mL/min >60 [facility] Comment on above: Non- GFR Calc Serum or plasma calcium alfonso urement (mass/volume)Ordered By: Cynthia Bowen on 07-20-2023 Calcium [Mass/Vol] 8.5 mg/dL 8.5-10.1 [facility] Serum or plasma creatinine m easurement (mass/volume)Ordered [...] 07-20-2023 Urea nitrogen [Mass/Vol] 16 mg/dL 7-18 [facility] Thin prep Papanicolaou smear with manual screeningOrdered By: Cynthia Bowen on 07-20-2023 Thin prep Papanicolaou smear with manual screening 3 5-15 [facility] Basophil percentageOrdered B y: Cynthia Bowen on 07-09-2023 Chloride [Moles/Vol] 106 mmol/L 98-107 [facility] Glucose [Mass/Vol] 111 mg/dL 74-106 [facility] Comment on above: Fasting Glucose resu lt from 100 to 125 mg/dL suggests IMPAIRED HOMEOSTASIS per A.D.A. criteria. Potassium [Moles/Vol] 4.0 mmol/L 3.5-5.1 [facility] Sodium [Moles/Vol] 139 mmol/L 136-145 [facility] WBC (Bld) [#/Vol] 6.8 10*3/uL 4.4-11.0 [facility] Blood erythrocytes count (nu mber/volume)Ordered By: Cynthia Bowen on 07-09-2023 RBC (Bld) [#/Vol] 4.37 10*6/uL 4.6-6.2 [facility] Blood hemoglobin measurement (mass/volume)Ordered By: Cynthia Bowen on 07-09-2023 Hemoglobin (Bld) [Mass/Vol] 12.8 g/dL 13.0-16.5 [facility] Blood platelet mean volumeOr dered By: Cynthia Bowen on 07-09-2023 Platelet mean volume (Bld) [Entitic vol] 11.2 fL 6.2-12.0 [facility] Determination of erythrocyte mean corpuscular volume (MCV)Ordered By: Cynthia Bowen on 07-09-2023 MCV (RBC) [Entitic vol] 91.1 fL 80-94 [facility] Hematocrit Auto (Bld) [Volum e fraction]Ordered By: Cynthia Bowen on 07-09-2023 Hematocrit (Bld) [Volume fraction] 39.8 % 40-54 [facility] Laboratory - Chemistry and C hemistry - challengeOrdered By: Cynthia Bowen on 07-09-2023 CO2 [Moles/Vol] 28.0 mmol/L 21.0-32.0 [facility] Natriuretic peptide B (Bld) [Mass/Vol] 157.6 pg/mL 0-100 [facility] Urea nitrogen/Creatinine [Mass ratio] 25.1 mg/mg 10-20 [facility] Laboratory - Hematology and Cell countsOrdered By: Cynthia Bowen on 07-09-2023 Erythrocyte distribution width (RBC) [Entitic vol] 45.5 fL 35.1-43.9 [facility] Erythrocyte distribution width (RBC) [Ratio] 13.5 % 11.6-14.6 [facility] MCH (RBC) [Entitic mass] 29.3 pg 27.0-32.0 [facility] MCHC Auto (RBC) [Mass/Vol]Or dered By: Cynthia Bowen on 07-09-2023 MCHC (RBC) [Mass/Vol] 32.2 g/dL 32-36 [facility] No Panel InformationOrdered By: Cynthia Bowen on 07-09-2023 Estimated GFR (MDRD) Amer 111 mL/min >60 [facility] Comment on above: GFR Calc Estimated GFR (MDRD) Non-Af Amer 92 mL/min >60 [facility] Comment on above: Non- GFR Calc Thyroid Stimulating Hormone (TSH) 0.79 uIU/mL 0.358-3.74 [facility] Platelets bldOrdered By: Carlos Bowen on 07-09-2023 Platelets (Bld) [#/Vol] 174 10*3/uL 150-450 [facility] Serum or plasma calcium alfonso urement (mass/volume)Ordered By: Cynthia Bowen on 07-09-2023 Calcium [Mass/Vol] 9.1 mg/dL 8.5-10.1 [facility] Serum or plasma creatinine m easurement (mass/volume)Ordered [...] 07-09-2023 Urea nitrogen [Mass/Vol] 21 mg/dL 7-18 [facility] Thin prep Papanicolaou smear with manual screeningOrdered By: Cynthia Bowen on 07-09-2023 Thin prep Papanicolaou smear with manual screening 5 5-15 [facility] Absolute lymphocyte countOrd ered By: Dr. Mckeon on 03-26-2023 Lymphocytes Auto (Unsp spec) [#/Vol] 1.89 10*3/uL 0.83-4.51 [facility] Basophil percentageOrdered B y: Dr. Mckeon on 03-26-2023 Basophils/100 WBC (Bld) 0.3 % 0-1 [facility] Bilirubin [Mass/Vol] 1.10 mg/dL 0.20-1.00 [facility] Comment on above: For patients on eltr ombopag therapy, use of Dimension [place] TBIL is not recommended. Chloride [Moles/Vol] 104 mmol/L 98-107 [facility] Eosinophils/100 WBC (Bld) 0.4 % 0-5 [facility] Glucose [Mass/Vol] 113 mg/dL 74-106 [facility] Comment on above: Fasting Glucose resu lt from 100 to 125 mg/dL suggests IMPAIRED HOMEOSTASIS per A.D.A. criteria. Neutrophils (Bld) [#/Vol] 8.9 10*3/uL 2.0-7.7 [facility] Neutrophils/100 WBC (Bld) 72.9 % 47-70 [facility] Potassium [Moles/Vol] 4.1 mmol/L 3.5-5.1 [facility] Protein [Mass/Vol] 7.4 g/dL 6.4-8.2 [facility] Sodium [Moles/Vol] 138 mmol/L 136-145 [facility] WBC (Bld) [#/Vol] 12.2 10*3/uL 4.4-11.0 [facility] Blood erythrocytes count (nu mber/volume)Ordered By: Dr. Mckeon on 03-26-2023 RBC (Bld) [#/Vol] 4.04 10*6/uL 4.6-6.2 [facility] Blood hemoglobin measurement (mass/volume)Ordered By: Dr. Mckeon on 03-26-2023 Hemoglobin (Bld) [Mass/Vol] 12.1 g/dL 13.0-16.5 [facility] Blood lymphocytes/100 leukoc ytesOrdered By: Dr. Mckeon on 03-26-2023 Lymphocytes/100 WBC (Bld) 15.6 % 19-41 [facility] Blood monocytes/100 leukocyt esOrdered By: Dr. Mckeon on 03-26-2023 Monocytes/100 WBC (Bld) 10.6 % 0-10 [facility] Blood platelet mean volumeOr dered By: Dr. Mckeon on 03-26-2023 Platelet mean volume (Bld) [Entitic vol] 11.2 fL 6.2-12.0 [facility] Determination of erythrocyte mean corpuscular volume (MCV)Ordered By: Dr. Mckeon on 03-26-2023 MCV (RBC) [Entitic vol] 92.8 fL 80-94 [facility] Hematocrit Auto (Bld) [Volum e fraction]Ordered By: Dr. Mckeon on 03-26-2023 Hematocrit (Bld) [Volume fraction] 37.5 % 40-54 [facility] Laboratory - Chemistry and C hemistry - challengeOrdered By: Dr. Mckeon on 03-26-2023 ALP [Catalytic activity/Vol] 65 U/L 45-117 [facility] ALT [Catalytic activity/Vol] 16 U/L 16-61 [facility] CO2 [Moles/Vol] 28.0 mmol/L 21.0-32.0 [facility] Globulin (S) [Mass/Vol] 3.8 g/dL 2.2-4.2 [facility] Urea nitrogen/Creatinine [Mass ratio] 14.3 mg/mg 10-20 [facility] Laboratory - Hematology and Cell countsOrdered By: Dr. Mckeon on 03-26-2023 Erythrocyte distribution width (RBC) [Entitic vol] 49.5 fL 35.1-43.9 [facility] Erythrocyte distribution width (RBC) [Ratio] 14.4 % 11.6-14.6 [facility] Immature granulocytes/100 WBC (Bld) 0.200 % 0.0-0.9 [facility] Comment on above: IG% - Immature Granu locytes (promyelocytes, myelocytes and metamyelocytes) > 1% indicates that a LEFT SHIFT is Present. MCH (RBC) [Entitic mass] 30.0 pg 27.0-32.0 [facility] Nucleated RBC/100 WBC (Bld) [Ratio] 0 % 0-5 [facility] MCHC Auto (RBC) [Mass/Vol]Or dered By: Dr. Mckeon on 03-26-2023 MCHC (RBC) [Mass/Vol] 32.3 g/dL 32-36 [facility] No Panel InformationOrdered By: Dr. Mckeon on 03-26-2023 CA 19-9 Antigen 7 U/mL 0-35 [facility] Comment on above: [employer] El ectrochemiluminescence Immunoassay(ECLIA)Values obtained with different assay methods or kits cannotbe used interchangeably. Results cannot be interpreted asabsolute evidence of the presence or absence of malignantdisease.Performed at: [facility] [id number] Director: Toi Ponce PhD, Phone: [phone] Estimated GFR (MDRD) Amer 93 mL/min >60 [facility] Comment on above: GFR Calc Estimated GFR (MDRD) Non-Af Amer 77 mL/min >60 [facility] Comment on above: Non- GFR Calc Platelets bldOrdered By: Dr. Mckeon on 03-26-2023 Platelets (Bld) [#/Vol] 224 10*3/uL 150-450 [facility] Serum or plasma C reactive p rotein measurement (mass/volume)Ordered By: Dr. Mckeon on 03-26-2023 CRP [Mass/Vol] 39.50 mg/L 0.0-3.0 [facility] Comment on above: C-Reactive Protein ( CRP) provides useful information for thediagnosis, therapy and monitoring of inflammatory processesand associated diseases. For the evaluation of Relative Riskfor Cardiovascular Disease, a High Sensitivity CRP (HSCRP)should be ordered. Serum or plasma albumin alfonso urement (mass/volume)Ordered By: Dr. Mckeon on 03-26-2023 Albumin [Mass/Vol] 3.6 g/dL 3.2-5.0 [facility] Serum or plasma albumin/glob ulin mass ratioOrdered By: Dr. Mckeon on 03-26-2023 Albumin/Globulin [Mass ratio] 0.9 {ratio} 0.9-2.4 [facility] Serum or plasma calcium alfonso urement (mass/volume)Ordered By: Dr. Mckeon on 03-26-2023 Calcium [Mass/Vol] 8.6 mg/dL 8.5-10.1 [facility] Serum or plasma carcinoembry onic antigen measurement (mass/volume)Ordered By: Dr. Mckeon on 03-26-2023 Carcinoembryonic Ag [Mass/Vol] 0.7 ng/mL 0.0-4.7 [facility] Comment on above: Nonsmokers <3.9 Smok ers [...] 03-26-2023 Urea nitrogen [Mass/Vol] 14 mg/dL 7-18 [facility] Thin prep Papanicolaou smear with manual screeningOrdered By: Dr. Mckeon on 03-26-2023 Thin prep Papanicolaou smear with manual screening 17 U/L 15-37 [facility] Thin prep Papanicolaou smear with manual screening 6 5-15 [facility] Absolute lymphocyte countOrd ered By: Dr. Villarreal on 01-06-2023 Lymphocytes Auto (Unsp spec) [#/Vol] 1.31 10*3/uL 0.83-4.51 [facility] Basophil percentageOrdered B y: Dr. Villarreal on 01-06-2023 Basophils/100 WBC (Bld) 0.3 % 0-1 [facility] Chloride [Moles/Vol] 108 mmol/L 98-107 [facility] Eosinophils/100 WBC (Bld) 1.2 % 0-5 [facility] Glucose [Mass/Vol] 123 mg/dL 74-106 [facility] Comment on above: Fasting Glucose resu lt from 100 to 125 mg/dL suggests IMPAIRED HOMEOSTASIS per A.D.A. criteria. Neutrophils (Bld) [#/Vol] 9.1 10*3/uL 2.0-7.7 [facility] Neutrophils/100 WBC (Bld) 74.2 % 47-70 [facility] Potassium [Moles/Vol] 3.7 mmol/L 3.5-5.1 [facility] Sodium [Moles/Vol] 139 mmol/L 136-145 [facility] WBC (Bld) [#/Vol] 12.2 10*3/uL 4.4-11.0 [facility] Blood erythrocytes count (nu mber/volume)Ordered By: Dr. Villarreal on 01-06-2023 RBC (Bld) [#/Vol] 3.97 10*6/uL 4.6-6.2 [facility] Blood hemoglobin measurement (mass/volume)Ordered By: Dr. Villarreal on 01-06-2023 Hemoglobin (Bld) [Mass/Vol] 11.9 g/dL 13.0-16.5 [facility] Blood lymphocytes/100 leukoc ytesOrdered By: Dr. Villarreal on 01-06-2023 Lymphocytes/100 WBC (Bld) 10.7 % 19-41 [facility] Blood manual differential co mment interpretation (narrative result)Ordered By: Dr. Villarreal on 01-06-2023 Manual differential comment Liang (Bld) [Interp] SCANNED [facility] Blood monocytes/100 leukocyt esOrdered By: Dr. Villarreal on 01-06-2023 Monocytes/100 WBC (Bld) 13.4 % 0-10 [facility] Blood platelet mean volumeOr dered By: Dr. Villarreal on 01-06-2023 Platelet mean volume (Bld) [Entitic vol] 10.8 fL 6.2-12.0 [facility] Determination of erythrocyte mean corpuscular volume (MCV)Ordered By: Dr. Villarreal on 01-06-2023 MCV (RBC) [Entitic vol] 91.9 fL 80-94 [facility] Hematocrit Auto (Bld) [Volum e fraction]Ordered By: Dr. Villarreal on 01-06-2023 Hematocrit (Bld) [Volume fraction] 36.5 % 40-54 [facility] Laboratory - Chemistry and C hemistry - challengeOrdered By: Dr. Villarreal on 01-06-2023 CO2 [Moles/Vol] 26.0 mmol/L 21.0-32.0 [facility] Urea nitrogen/Creatinine [Mass ratio] 11.6 mg/mg 10-20 [facility] - Hematology and Cell countsOrdered By: Dr. Villarreal on 01-06-2023 Erythrocyte distribution width (RBC) [Entitic vol] 48.6 fL 35.1-43.9 [facility] Erythrocyte distribution width (RBC) [Ratio] 14.4 % 11.6-14.6 [facility] Immature granulocytes/100 WBC (Bld) 0.200 % 0.0-0.9 [facility] Comment on above: IG% - Immature Granu locytes (promyelocytes, myelocytes and metamyelocytes) > 1% indicates that a LEFT SHIFT is Present. MCH (RBC) [Entitic mass] 30.0 pg 27.0-32.0 [facility] Nucleated RBC/100 WBC (Bld) [Ratio] 0 % 0-5 [facility] Auto (RBC) [Mass/Vol]Or dered By: Dr. Villarreal on 01-06-2023 MCHC (RBC) [Mass/Vol] 32.6 g/dL 32-36 [facility] No Panel InformationOrdered By: Dr. Villarreal on 01-06-2023 Estimated Creatinine Clearance Calc 46.20 ml/min [facility] Estimated GFR (MDRD) Amer 108 mL/min >60 [facility] Comment on above: GFR Calc Estimated GFR (MDRD) Non-Af Amer 89 mL/min >60 [facility] Comment on above: Non- GFR Calc Platelets bldOrdered By: Dr. Villarreal on 01-06-2023 Platelets (Bld) [#/Vol] 225 10*3/uL 150-450 [facility] Review by pathologistOrdered By: Dr. Villarreal on 01-06-2023 Pathologist review Liang (Unsp spec) [Interp] Reviewed [facility] Comment on above: Previous reported re sult: Sonia anthony Edited by: RGORENATA on 01/07/23:1327Neutrophilic leukocytosis.Clinical correlation necessary.Eddi Swartz M.D. 01/07/23 AMENDED REPORT 01/07/23 1327 PATH REV previously reported as: Sonia anthony Serum or plasma calcium alfonso urement (mass/volume)Ordered By: Dr. Villarreal on 01-06-2023 Calcium [Mass/Vol] 8.3 mg/dL 8.5-10.1 [facility] Serum or plasma creatinine m easurement (mass/volume)Ordered [...] 01-06-2023 Urea nitrogen [Mass/Vol] 10 mg/dL 7-18 [facility] Thin prep Papanicolaou smear with manual screeningOrdered By: Dr. Villarreal on 01-06-2023 Thin prep Papanicolaou smear with manual screening 5 5-15 [facility] Absolute lymphocyte countOrd ered By: Dr. Morgan on 12-27-2022 Lymphocytes Auto (Unsp spec) [#/Vol] 1.73 10*3/uL 0.83-4.51 [facility] Basophil percentageOrdered B y: Dr. Morgan on 12-27-2022 Basophil percentage 0-5 SEEN /hpf 0-5 [facility] Basophils/100 WBC (Bld) 0.5 % 0-1 [facility] Bilirubin [Mass/Vol] 2.10 mg/dL 0.20-1.00 [facility] Comment on above: For patients on eltr ombopag therapy, use of Dimension [place] TBIL is not recommended. Chloride [Moles/Vol] 102 mmol/L 98-107 [facility] Eosinophils/100 WBC (Bld) 1.0 % 0-5 [facility] Glucose [Mass/Vol] 135 mg/dL 74-106 [facility] Comment on above: Fasting Glucose resu lt greater than or equal to 126 mg/dL suggests DIABETES MELLITUS per A.D.A. criteria. Neutrophils (Bld) [#/Vol] 7.5 10*3/uL 2.0-7.7 [facility] Neutrophils/100 WBC (Bld) 69.5 % 47-70 [facility] Potassium [Moles/Vol] 3.4 mmol/L 3.5-5.1 [facility] Protein [Mass/Vol] 7.6 g/dL 6.4-8.2 [facility] Sodium [Moles/Vol] 139 mmol/L 136-145 [facility] WBC (Bld) [#/Vol] 10.8 10*3/uL 4.4-11.0 [facility] Bilirubin Test strip Ql (U)O rdered By: Dr. Morgan on 12-27-2022 Bilirubin Ql (U) Negative Negative [facility] Blood erythrocytes count (nu mber/volume)Ordered By: Dr. Morgan on 12-27-2022 RBC (Bld) [#/Vol] 4.29 10*6/uL 4.6-6.2 [facility] Blood hemoglobin measurement (mass/volume)Ordered By: Dr. Morgan on 12-27-2022 Hemoglobin (Bld) [Mass/Vol] 12.8 g/dL 13.0-16.5 [facility] Blood lymphocytes/100 leukoc ytesOrdered By: Dr. Morgan on 12-27-2022 Lymphocytes/100 WBC (Bld) 16.0 % 19-41 [facility] Blood monocytes/100 leukocyt esOrdered By: Dr. Morgan on 12-27-2022 Monocytes/100 WBC (Bld) 12.6 % 0-10 [facility] Blood platelet mean volumeOr dered By: Dr. Morgan on 12-27-2022 Platelet mean volume (Bld) [Entitic vol] 11.6 fL 6.2-12.0 [facility] Determination of erythrocyte mean corpuscular volume (MCV)Ordered By: Dr. Morgan on 12-27-2022 MCV (RBC) [Entitic vol] 91.4 fL 80-94 [facility] Hematocrit Auto (Bld) [Volum e fraction]Ordered By: Dr. Morgan on 12-27-2022 Hematocrit (Bld) [Volume fraction] 39.2 % 40-54 [facility] Ketones Test strip Ql (U)Ord ered By: Dr. Morgan on 12-27-2022 Ketones Ql (U) Negative Negative [facility] Laboratory - Chemistry and C hemistry - challengeOrdered By: Dr. Morgan on 12-27-2022 ALP [Catalytic activity/Vol] 68 U/L 45-117 [facility] ALT [Catalytic activity/Vol] 11 U/L 16-61 [facility] CO2 [Moles/Vol] 30.0 mmol/L 21.0-32.0 [facility] Globulin (S) [Mass/Vol] 3.7 g/dL 2.2-4.2 [facility] Urea nitrogen/Creatinine [Mass ratio] 11.9 mg/mg 10-20 [facility] - Hematology and Cell countsOrdered By: Dr. Morgan on 12-27-2022 Erythrocyte distribution width (RBC) [Entitic vol] 46.6 fL 35.1-43.9 [facility] Erythrocyte distribution width (RBC) [Ratio] 14.0 % 11.6-14.6 [facility] Immature granulocytes/100 WBC (Bld) 0.400 % 0.0-0.9 [facility] Comment on above: IG% - Immature Granu locytes (promyelocytes, myelocytes and metamyelocytes) > 1% indicates that a LEFT SHIFT is Present. MCH (RBC) [Entitic mass] 29.8 pg 27.0-32.0 [facility] Nucleated RBC/100 WBC (Bld) [Ratio] 0 % 0-5 [facility] MCHC Auto (RBC) [Mass/Vol]Or dered By: Dr. Morgan on 12-27-2022 MCHC (RBC) [Mass/Vol] 32.7 g/dL 32-36 [facility] Mucus LM Ql (Urine sed)Order ed By: Dr. Morgan on 12-27-2022 Mucus Ql (Urine sed) 0 SEEN /hpf [facility] Nitrite Test strip Ql (U)Ord ered By: Dr. Morgan on 12-27-2022 Nitrite Ql (U) Negative Negative [facility] No Panel InformationOrdered By: Dr. Morgan on 12-27-2022 Estimated Creatinine Clearance Calc 42.47 ml/min [facility] Estimated GFR (MDRD) Amer 99 mL/min >60 [facility] Comment on above: GFR Calc Estimated GFR (MDRD) Non-Af Amer 82 mL/min >60 [facility] Comment on above: Non- GFR Calc Platelets bldOrdered By: Dr. Morgan on 12-27-2022 Platelets (Bld) [#/Vol] 195 10*3/uL 150-450 [facility] Protein Test strip Ql (U)Ord ered By: Dr. Morgan on 12-27-2022 Protein Ql (U) 15 mg/dl Negative [facility] Serum or plasma albumin alfonso urement (mass/volume)Ordered By: Dr. Morgan on 12-27-2022 Albumin [Mass/Vol] 3.9 g/dL 3.2-5.0 [facility] Serum or plasma albumin/glob ulin mass ratioOrdered By: Dr. Morgan on 12-27-2022 Albumin/Globulin [Mass ratio] 1.1 {ratio} 0.9-2.4 [facility] Serum or plasma calcium alfonso urement (mass/volume)Ordered By: Dr. Morgan on 12-27-2022 Calcium [Mass/Vol] 8.9 mg/dL 8.5-10.1 [facility] Serum or plasma creatinine m easurement (mass/volume)Ordered [...] 12-27-2022 Urea nitrogen [Mass/Vol] 11 mg/dL 7-18 [facility] Squamous epithelial cells de tection in urine sediment by light microscopyOrdered By: Dr. Morgan on 12-27-2022 Epithelial cells.squamous LM Ql (Urine sed) 0-5 SEEN /hpf 0-5 [facility] Thin prep Papanicolaou smear with manual screeningOrdered By: Dr. Morgan on 12-27-2022 Thin prep Papanicolaou smear with manual screening 8 U/L 15-37 [facility] Thin prep Papanicolaou smear with manual screening 7 5-15 [facility] Urine blood detectionOrdered By: Dr. Morgan on 12-27-2022 RBC Ql (U) Negative Negative [facility] RBC Ql (U) 0 SEEN /hpf 0-5 [facility] Urine clarityOrdered By: Dr. Morgan on 12-27-2022 Clarity (U) Sl. Cloudy Clear [facility] Urine color determinationOrd ered By: Dr. Morgan on 12-27-2022 Color (U) Yellow Yellow [facility] Urine glucose detectionOrder ed By: Dr. Morgan on 12-27-2022 Glucose Ql (U) Normal mg/dl Normal [facility] Urine leukocyte esterase det ection by dipstickOrdered By: Dr. Morgan on 12-27-2022 Leukocyte esterase Test strip Ql (U) 25 /ul Negative [facility] Urine pHOrdered By: Dr. Meme holcomb on 12-27-2022 pH (U) 7.0 [pH] 5.0 - 8.0 [facility] Urine sediment bacteria coun t by microscopy (number/high power field)Ordered By: Dr. Morgan on 12-27-2022 Bacteria LM.HPF (Urine sed) [#/Area] 0 /[HPF] None Seen [facility] Urine specific gravity measu rementOrdered By: Dr. Morgan on 12-27-2022 Specific gravity (U) [Rel density] 1.010 1.002-1.03 0 [facility] Urobilinogen Auto test strip Ql (U)Ordered By: Dr. Morgan on 12-27-2022 Urobilinogen Ql (U) Normal mg/dl Normal [facility] Basophil percentageOrdered B y: Dr. Barth on 10-12-2022 Chloride [Moles/Vol] 105 mmol/L 98-107 [facility] Glucose [Mass/Vol] 187 mg/dL 74-106 [facility] Comment on above: Fasting Glucose resu lt greater than or equal to 126 mg/dL suggests DIABETES MELLITUS per A.D.A. criteria. Potassium [Moles/Vol] 3.8 mmol/L 3.5-5.1 [facility] Sodium [Moles/Vol] 139 mmol/L 136-145 [facility] WBC (Bld) [#/Vol] 7.0 10*3/uL 4.4-11.0 [facility] Blood erythrocytes count (nu mber/volume)Ordered By: Dr. Barth on 10-12-2022 RBC (Bld) [#/Vol] 4.22 10*6/uL 4.6-6.2 [facility] Blood hemoglobin measurement (mass/volume)Ordered By: Dr. Barth on 10-12-2022 Hemoglobin (Bld) [Mass/Vol] 12.9 g/dL 13.0-16.5 [facility] Blood platelet mean volumeOr dered By: Dr. Barth on 10-12-2022 Platelet mean volume (Bld) [Entitic vol] 11.9 fL 6.2-12.0 [facility] Determination of erythrocyte mean corpuscular volume (MCV)Ordered By: Dr. Barth on 10-12-2022 MCV (RBC) [Entitic vol] 92.7 fL 80-94 [facility] Hematocrit Auto (Bld) [Volum e fraction]Ordered By: Dr. Barth on 10-12-2022 Hematocrit (Bld) [Volume fraction] 39.1 % 40-54 [facility] Laboratory - Chemistry and C hemistry - challengeOrdered By: Dr. Barth on 10-12-2022 CO2 [Moles/Vol] 30.0 mmol/L 21.0-32.0 [facility] Urea nitrogen/Creatinine [Mass ratio] 9.9 mg/mg 10-20 [facility] Laboratory - Hematology and Cell countsOrdered By: Dr. Barth on 10-12-2022 Erythrocyte distribution width (RBC) [Entitic vol] 47.6 fL 35.1-43.9 [facility] Erythrocyte distribution width (RBC) [Ratio] 13.9 % 11.6-14.6 [facility] MCH (RBC) [Entitic mass] 30.6 pg 27.0-32.0 [facility] MCHC Auto (RBC) [Mass/Vol]Or dered By: Dr. Barth on 10-12-2022 MCHC (RBC) [Mass/Vol] 33.0 g/dL 32-36 [facility] No Panel InformationOrdered By: Dr. Barth on 10-12-2022 Estimated GFR (MDRD) Amer 90 mL/min >60 [facility] Comment on above: GFR Calc Estimated GFR (MDRD) Non-Af Amer 74 mL/min >60 [facility] Comment on above: Non- GFR Calc Platelets bldOrdered By: Dr. Barth on 10-12-2022 Platelets (Bld) [#/Vol] 200 10*3/uL 150-450 [facility] Serum or plasma calcium alfonso urement (mass/volume)Ordered By: Dr. Barth on 10-12-2022 Calcium [Mass/Vol] 8.9 mg/dL 8.5-10.1 [facility] Serum or plasma creatinine m easurement (mass/volume)Ordered [...] 10-12-2022 Urea nitrogen [Mass/Vol] 10 mg/dL 7-18 [facility] Thin prep Papanicolaou smear with manual screeningOrdered By: Dr. Barth on 10-12-2022 Thin prep Papanicolaou smear with manual screening 4 5-15 [facility] Basophil percentageon 2021 Chloride [Moles/Vol] 105 mmol/L 98-107 [facility] Work Phone: Glucose [Mass/Vol] 104 mg/dL 74-106 [facility] Work Phone: Comment on above: Fasting Glucose resu lt from 100 to 125 mg/dL suggests IMPAIRED HOMEOSTASIS per A.D.A. criteria. Potassium [Moles/Vol] 4.1 mmol/L 3.5-5.1 [facility] Work Phone: Sodium [Moles/Vol] 139 mmol/L 136-145 [facility] Work Phone: WBC (Bld) [#/Vol] 5.7 10*3/uL 4.4-11.0 [facility] Work Phone: Blood erythrocytes count (nu mber/volume)on 06-03-2022 RBC (Bld) [#/Vol] 3.87 10*6/uL 4.6-6.2 [facility] Work Phone: Blood hemoglobin measurement (mass/volume)on 06-03-2022 Hemoglobin (Bld) [Mass/Vol] 11.8 g/dL 13.0-16.5 [facility] Work Phone: Blood platelet mean volumeon 06-03-2022 Platelet mean volume (Bld) [Entitic vol] 11.2 fL 6.2-12.0 [facility] Work Phone: Determination of erythrocyte mean corpuscular volume (MCV)on 06-03-2022 MCV (RBC) [Entitic vol] 90.4 fL 80-94 [facility] Work Phone: Hematocrit Auto (Bld) [Volum e fraction]on 06-03-2022 Hematocrit (Bld) [Volume fraction] 35.0 % 40-54 [facility] Work Phone: Laboratory - Chemistry and C hemistry - challengeon 06-03-2022 CO2 [Moles/Vol] 28.0 mmol/L 21.0-32.0 [facility] Work Phone: Urea nitrogen/Creatinine [Mass ratio] 15.9 mg/mg 10-20 [facility] Work Phone: Laboratory - Hematology and Cell countson 06-03-2022 Erythrocyte distribution width (RBC) [Entitic vol] 47.1 fL 35.1-43.9 [facility] Work Phone: Erythrocyte distribution width (RBC) [Ratio] 14.3 % 11.6-14.6 [facility] Work Phone: MCH (RBC) [Entitic mass] 30.5 pg 27.0-32.0 [facility] Work Phone: MCHC Auto (RBC) [Mass/Vol]on 06-03-2022 MCHC (RBC) [Mass/Vol] 33.7 g/dL 32-36 [facility] Work Phone: No Panel Informationon 06-03 Estimated GFR (MDRD) Amer 84 mL/min >60 [facility] Work Phone: Comment on above: GFR Calc Estimated GFR (MDRD) Non-Af Amer 70 mL/min >60 [facility] Work Phone: Comment on above: Non- GFR Calc Platelets bldon 06-03-2022 Platelets (Bld) [#/Vol] 180 10*3/uL 150-450 [facility] Work Phone: Serum or plasma calcium alfonso urement (mass/volume)on 06-03-2022 Calcium [Mass/Vol] 9.1 mg/dL 8.5-10.1 [facility] Work Phone: Serum or plasma creatinine m easurement (mass/volume)on 06-03-2022 Creatinine [Mass/Vol] 1.07 mg/dL 0.70-1.30 [facility] Work Phone: Comment on above: The validity of the calculated GFR & GFRAA in patients over 70 years has not been determined. Clinical correlation is essential. Serum or plasma urea nitroge n measurement (mass/volume)on 06-03-2022 Urea nitrogen [Mass/Vol] 17 mg/dL 7-18 [facility] Work Phone: Thin prep Papanicolaou smear with manual screeningon 06-03-2022 Thin prep Papanicolaou smear with manual screening 6 5-15 [facility] Work Phone: Absolute lymphocyte counton 03-05-2022 Lymphocytes Auto (Unsp spec) [#/Vol] 2.16 10*3/uL 0.83-4.51 [facility] Work Phone: Basophil percentageon 2021 Basophils/100 WBC (Bld) 0.6 % 0-1 [facility] Work Phone: Chloride [Moles/Vol] 103 mmol/L 98-107 [facility] Work Phone: Eosinophils/100 WBC (Bld) 5.9 % 0-5 [facility] Work Phone: Glucose [Mass/Vol] 110 mg/dL 74-106 [facility] Work Phone: Comment on above: Fasting Glucose resu lt from 100 to 125 mg/dL suggests IMPAIRED HOMEOSTASIS per A.D.A. criteria. Neutrophils (Bld) [#/Vol] 3.8 10*3/uL 2.0-7.7 [facility] Work Phone: Neutrophils/100 WBC (Bld) 54.3 % 47-70 [facility] Work Phone: Potassium [Moles/Vol] 3.6 mmol/L 3.5-5.1 [facility] Work Phone: Sodium [Moles/Vol] 139 mmol/L 136-145 [facility] Work Phone: WBC (Bld) [#/Vol] 6.9 10*3/uL 4.4-11.0 [facility] Work Phone: Blood erythrocytes count (nu mber/volume)on 03-05-2022 RBC (Bld) [#/Vol] 3.99 10*6/uL 4.6-6.2 [place] [facility] Work Phone: Blood hemoglobin measurement (mass/volume)on 03-05-2022 Hemoglobin (Bld) [Mass/Vol] 11.9 g/dL 13.0-16.5 [facility] Work Phone: Blood lymphocytes/100 leukoc yteson 03-05-2022 Lymphocytes/100 WBC (Bld) 31.1 % 19-41 [facility] Work Phone: Blood monocytes/100 leukocyt eson 03-05-2022 Monocytes/100 WBC (Bld) 7.8 % 0-10 [facility] Work Phone: Blood platelet mean volumeon 03-05-2022 Platelet mean volume (Bld) [Entitic vol] 11.5 fL 6.2-12.0 [facility] Work Phone: Determination of erythrocyte mean corpuscular volume (MCV)on 03-05-2022 MCV (RBC) [Entitic vol] 92.0 fL 80-94 [facility] Work Phone: Hematocrit Auto (Bld) [Volum e fraction]on 03-05-2022 Hematocrit (Bld) [Volume fraction] 36.7 % 40-54 [facility] Work Phone: Laboratory - Chemistry and C hemistry - challengeon 03-05-2022 CO2 [Moles/Vol] 30.0 mmol/L 21.0-32.0 [facility] Work Phone: Natriuretic peptide B (Bld) [Mass/Vol] 225.2 pg/mL 0-100 [facility] Work Phone: Urea nitrogen/Creatinine [Mass ratio] 11.4 mg/mg 10-20 [facility] Work Phone: Laboratory - Hematology and Cell countson 03-05-2022 Erythrocyte distribution width (RBC) [Entitic vol] 48.4 fL 35.1-43.9 [facility] Work Phone: Erythrocyte distribution width (RBC) [Ratio] 14.3 % 11.6-14.6 [facility] Work Phone: Immature granulocytes/100 WBC (Bld) 0.300 % 0.0-0.9 [facility] Work Phone: Comment on above: IG% - Immature Granu locytes (promyelocytes, myelocytes and metamyelocytes) > 1% indicates that a LEFT SHIFT is Present. MCH (RBC) [Entitic mass] 29.8 pg 27.0-32.0 [facility] Work Phone: Nucleated RBC/100 WBC (Bld) [Ratio] 0 % 0-5 [facility] Work Phone: MCHC Auto (RBC) [Mass/Vol]on 03-05-2022 MCHC (RBC) [Mass/Vol] 32.4 g/dL 32-36 [facility] Work Phone: No Panel Informationon 03-05 Estimated GFR (MDRD) Amer 95 mL/min >60 [facility] Work Phone: Comment on above: GFR Calc Estimated GFR (MDRD) Non-Af Amer 79 mL/min >60 [facility] Work Phone: Comment on above: Non- GFR Calc Platelets bldon 03-05-2022 Platelets (Bld) [#/Vol] 199 10*3/uL 150-450 [facility] Work Phone: Serum or plasma calcium alfonso urement (mass/volume)on 03-05-2022 Calcium [Mass/Vol] 8.3 mg/dL 8.5-10.1 [facility] Work Phone: Serum or plasma creatinine m easurement (mass/volume)on 03-05-2022 Creatinine [Mass/Vol] 0.96 mg/dL 0.70-1.30 [facility] Work Phone: Comment on above: The validity of the calculated GFR & GFRAA in patients over 70 years has not been determined. Clinical correlation is essential. Serum or plasma urea nitroge n measurement (mass/volume)on 03-05-2022 Urea nitrogen [Mass/Vol] 11 mg/dL 7-18 [facility] Work Phone: Thin prep Papanicolaou smear with manual screeningon 03-05-2022 Thin prep Papanicolaou smear with manual screening 6 5-15 [facility] Work Phone: No Panel Informationon 02-03 Prostate Specific Antigen Total 13.50 ng/mL 0.0-4.0 [facility] Work Phone: Comment on above: This test was perfor med using the TPSA assay method for [employer] chemistry system. Values obtained with differentassay methods cannot be used interchangably.When changing PSA assays in the course of monitoring apatient, additional sequential testing should be carriedout to confirm baseline values. Absolute lymphocyte counton 10-16-2021 Lymphocytes Auto (Unsp spec) [#/Vol] 2.15 10*3/uL 0.83-4.51 [facility] Work Phone: Basophil percentageon 2020 Chloride [Moles/Vol] 104 mmol/L 98-107 [facility] Work Phone: Eosinophils/100 WBC (Bld) 7.8 % 0-5 [facility] Work Phone: Glucose [Mass/Vol] 104 mg/dL 74-106 [facility] Work Phone: Comment on above: Fasting Glucose resu lt from 100 to 125 mg/dL suggests IMPAIRED HOMEOSTASIS per A.D.A. criteria.Please note revised GLUCOSE reference range effective 2017. Neutrophils (Bld) [#/Vol] 4.4 10*3/uL 2.0-7.7 [facility] Work Phone: Potassium [Moles/Vol] 3.8 mmol/L 3.5-5.1 [facility]: [phone] Sodium [Moles/Vol] 139 mmol/L 136-145 [facility] Work Phone: WBC (Bld) [#/Vol] 7.8 10*3/uL 4.4-11.0 [facility] Work Phone: Blood erythrocytes count (nu mber/volume)on 10-16-2021 RBC (Bld) [#/Vol] 4.17 10*6/uL 4.6-6.2 [facility] Work Phone: Blood hemoglobin measurement (mass/volume)on 10-16-2021 Hemoglobin (Bld) [Mass/Vol] 12.5 g/dL 13.0-16.5 [facility] Work Phone: Blood lymphocytes/100 leukoc yteson 10-16-2021 Lymphocytes/100 WBC (Bld) 27.4 % 19-41 [facility] Work Phone: Blood monocytes/100 leukocyt eson 10-16-2021 Monocytes/100 WBC (Bld) 8.4 % 0-10 [facility] Work Phone: Blood platelet mean volumeon 10-16-2021 Platelet mean volume (Bld) [Entitic vol] 10.8 fL 6.2-12.0 [facility] Work Phone: Determination of erythrocyte mean corpuscular volume (MCV)on 10-16-2021 MCV (RBC) [Entitic vol] 92.1 fL 80-94 [facility] Work Phone: Hematocrit Auto (Bld) [Volum e fraction]on 10-16-2021 Hematocrit (Bld) [Volume fraction] 38.4 % 40-54 [facility] Work Phone: Laboratory - Chemistry and C hemistry - challengeon 10-16-2021 CO2 [Moles/Vol] 28.0 mmol/L 21.0-32.0 [facility] Work Phone: Urea nitrogen/Creatinine [Mass ratio] 16.6 mg/mg 10-20 [facility] Work Phone: Laboratory - Hematology and Cell countson 10-16-2021 Basophils/100 WBC (Unsp spec) 0.6 % 0-1 [facility] Work Phone: Erythrocyte distribution width (RBC) [Entitic vol] 48.0 fL 35.1-43.9 [facility] Work Phone: Erythrocyte distribution width (RBC) [Ratio] 14.3 % 11.6-14.6 [facility] Work Phone: Immature granulocytes/100 WBC (Bld) 0.100 % 0.0-0.9 [facility] Work Phone: Comment on above: IG% - Immature Granu locytes (promyelocytes, myelocytes and metamyelocytes) > 1% indicates that a LEFT SHIFT is Present. MCH (RBC) [Entitic mass] 30.0 pg 27.0-32.0 [facility] Work Phone: Neutrophils/100 WBC (Bld) 55.7 % 47-70 [facility] Work Phone: Nucleated RBC/100 WBC (Bld) [Ratio] 0 % 0-5 [facility] Work Phone: MCHC Auto (RBC) [Mass/Vol]on 10-16-2021 MCHC (RBC) [Mass/Vol] 32.6 g/dL 32-36 [facility] Work Phone: No Panel Informationon 10-16 Estimated GFR (MDRD) Amer 111 mL/min >60 [facility] Work Phone: Comment on above: GFR Calc Estimated GFR (MDRD) Non-Af Amer 92 mL/min >60 [facility] Work Phone: Comment on above: Non- GFR Calc Prostate Specific Antigen Total 20.20 ng/mL 0.0-4.0 [facility] Work Phone: Comment on above: This test was perfor med using the TPSA assay method for the[facility] chemistry system. Values obtained with differentassay methods cannot be used interchangably.When changing PSA assays in the course of monitoring apatient, additional sequential testing should be carriedout to confirm baseline values. Platelets bldon 10-16-2021 Platelets (Bld) [#/Vol] 247 10*3/uL 150-450 [facility] Work Phone: Serum or plasma calcium alfonso urement (mass/volume)on 10-16-2021 Calcium [Mass/Vol] 9.1 mg/dL 8.5-10.1 [facility] Work Phone: Serum or plasma creatinine m easurement (mass/volume)on 10-16-2021 Creatinine [Mass/Vol] 0.84 mg/dL 0.70-1.30 [facility] Work Phone: Comment on above: The validity of the calculated GFR & GFRAA in patients over 70 years has not been determined. Clinical correlation is essential. Serum or plasma thyroperoxid ase antibody assay (units/volume)on 10-16-2021 TPO Ab Qn [IU]/mL [facility] Work Phone: Comment on above: Performed at: [place] [id number] Director: Toi Ponce PhD, Phone: [phone] Serum or plasma urea nitroge n measurement (mass/volume)on 10-16-2021 Urea nitrogen [Mass/Vol] 14 mg/dL -18 [facility] Work Phone: Thin prep Papanicolaou smear with manual screeningon 10-16-2021 Thin prep Papanicolaou smear with manual screening 7 03-15 [facility] Work Phone: Lab Report: Basic Metabolic Profile (BMP)on 10-28-2017 Anion gap [Moles/Vol] 8 mmol/L Invalid Interpretation Code 03-15 [facility] Work Phone: [phone] Calcium [Mass/Vol] 8.8 mg/dL Invalid Interpretation Code 8.5-10.1 [facility] Work Phone: [phone] Chloride [Moles/Vol] 102 mmol/L Invalid Interpretation Code 98-107 [facility] Work Phone: [phone] CO2 (BldV) [Partial pressure] 29.0 mmol/L Invalid Interpretation Code 21.0-32.0 [facility] Work Phone: [phone] Creatinine [Mass/Vol] 1.06 mg/dL Invalid Interpretation Code 0.70-1.30 [facility] Work Phone: [phone] GFR/1.73 sq M.predicted among non-blacks MDRD (S/P/Bld) [Vol rate/Area] 71 mL/min/{1.73_m2} Invalid Interpretation Code >60 [facility] Phone: [phone] Glomerular Filtration rate 86 mL/min Invalid Interpretation Code >60 [facility] Work Phone: [phone] Glucose [Mass/Vol] 101 mg/dL Invalid Interpretation Code 70-110 [facility] Phone: [phone] Potassium [Moles/Vol] 3.6 mmol/L Invalid Interpretation Code 3.5-5.1 [facility] Work Phone: [phone] Sodium [Moles/Vol] 139 mmol/L Invalid Interpretation Code 136-145 [facility] Work Phone: [phone] Urea nitrogen [Mass/Vol] 18 mg/dL Invalid Interpretation Code 7-18 [facility] Work Phone: [phone] Urea nitrogen/Creatinine [Mass ratio] 17.2429586 mg/mg Invalid Interpretation Code 10-20 [facility] Work Phone: [phone] [facility] lead advisory Device on Alert for early battery depletion. Pt refuses remote monitoring system at this time. 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 05-31-2017 Left ventricular Ejection fraction 40 % Invalid Interpretation Code [facility] Work Phone: [phone] Office Visiton 05-24-2017 Documentation of current medications (procedure) Done Invalid Interpretation Code [facility] Work Phone: [phone] Office Visiton 04-12-2017 Fall risk assessment No Invalid Interpretation Code [facility] Work Phone: [phone] Lab Report: BNP,B-Type NATRI URETIC PEPTIDEon 10-09-2016 Natriuretic peptide B (Bld) [Mass/Vol] 134.5 pg/mL High 0-100 [facility] Work Phone: [phone] Lab Report: Basic Metabolic Profile (BMP)on 10-09-2016 Anion gap 6 mmol/L Invalid Interpretation Code 5-15 [facility] Work Phone: [phone] Anion gap [Moles/Vol] 6 mmol/L Invalid Interpretation Code 5-15 [facility] Work Phone: [phone] BUN/Creatinine Ratio 14.8 RATIO Invalid Interpretation Code 10-20 [facility] Work Phone: [phone] Calcium [Mass/Vol] 8.8 mg/dL Invalid Interpretation Code 8.5-10.1 [facility] Work Phone: [phone] Chloride [Moles/Vol] 103 mmol/L Invalid Interpretation Code 98-107 [facility] Work Phone: [phone] CO2 32.0 mmol/L Invalid Interpretation Code 21.0-32.0 [facility] Work Phone: [phone] CO2 (BldV) [Partial pressure] 32.0 mmol/L Invalid Interpretation Code 21.0-32.0 [facility] Work Phone: [phone] Creatinine [Mass/Vol] 1.22 mg/dL Invalid Interpretation Code 0.70-1.30 [facility] Work Phone: [phone] eGFR (non-black) 73 mL/min/{1.73_m2} Invalid Interpretation Code >60 [facility] Work Phone: [phone] GFR/1.73 sq M.predicted among non-blacks MDRD (S/P/Bld) [Vol rate/Area] 61 mL/min/{1.73_m2} Invalid Interpretation Code >60 [facility] Work Phone: [phone] Glomerular Filtration rate 73 mL/min Invalid Interpretation Code >60 [facility] Work Phone: [phone] Glucose [Mass/Vol] 102 mg/dL Invalid Interpretation Code 70-110 [facility] Work Phone: [phone] Potassium [Moles/Vol] 3.9 mmol/L Invalid Interpretation Code 3.5-5.1 [facility] Work Phone: [phone] Sodium [Moles/Vol] 141 mmol/L Invalid Interpretation Code 136-145 [facility] Work Phone: [phone] Urea nitrogen [Mass/Vol] 18 mg/dL Invalid Interpretation Code 7-18 [facility] Work Phone: [phone] Urea nitrogen/Creatinine [Mass ratio] 14.6567613 mg/mg Invalid Interpretation Code 10-20 [facility] Work Phone: [phone] Lab Report: CBC W/Diff, Auto matedon 10-09-2016 Absolute Neut 2.3 X10 3/UL Invalid Interpretation Code 2.0-7.7 [facility] Work Phone: [phone] Basophils/100 WBC (Bld) 0.4 % Invalid Interpretation Code 0-1 [facility] Work Phone: [phone] Basophils/100 WBC Auto (Bld) 0.4 % Invalid Interpretation Code 0-1 [facility] Work Phone: [phone] Eosinophils/100 leukocytes 5.8 % High 0-5 [facility] Work Phone: [phone] Eosinophils/100 WBC (Bld) 5.8 % High 0-5 [facility] Work Phone: [phone] Erythrocyte distribution width (RBC) [Ratio] 14.2 % Invalid Interpretation Code 11.6-14.6 [facility] Work Phone: [phone] Erythrocyte distribution width Auto Ratio (RBC) 14.2 % Invalid Interpretation Code 11.6-14.6 [facility] Work Phone: [phone] Erythrocytes (RBC) 4.41 10*6/uL Low 4.6-6.[address] [facility] Work Phone: [phone] Hematocrit (Bld) [Volume fraction] 40.5 % Invalid Interpretation Code 40-54 [facility] Work Phone: Hematocrit (HCT) 40.5 % Invalid Interpretation Code 40-54 [facility] Work Phone: Hemoglobin (Bld) [Mass/Vol] 13.4 g/dL Invalid Interpretation Code 13.0-16.5 [facility] Work Phone: Immature granulocytes/100 WBC (Bld) 0.200 % Invalid Interpretation Code 0.0-0.9 [facility] Work Phone: Lymphocytes 1.60 X10 3/UL Invalid Interpretation Code 0.83-4.51 [facility] Work Phone: Lymphocytes (Bld) [#/Vol] 1.60 X10 3/UL Invalid Interpretation Code 0.83-4.51 [facility] Work Phone: Lymphocytes/100 leukocytes 34.6 % Invalid Interpretation Code 19-41 [facility] Work Phone: Lymphocytes/100 WBC (Bld) 34.6 % Invalid Interpretation Code 19-41 [facility] Work Phone: MCH 30.4 pg Invalid Interpretation Code 27.0-32.0 [facility] Work Phone: MCH (RBC) [Entitic mass] 30.4 pg Invalid Interpretation Code 27.0-32.0 [facility] Work Phone: MCHC mass conc (RBC) 33.1 G/GL Invalid Interpretation Code 32-36 [facility] Work Phone: MCV 91.8 fL Invalid Interpretation Code 80-94 [facility] Work Phone: MCV (RBC) [Entitic vol] 91.8 fL Invalid Interpretation Code 80-94 [facility] Work Phone: mean corpuscular hemoglobin concentration, RBC 33.1 G/GL Invalid Interpretation Code 32-36 [facility] Work Phone: Monocytes/100 leukocytes 9.5 % Invalid Interpretation Code 0-10 [facility] Work Phone: Monocytes/100 WBC (Bld) 9.5 % Invalid Interpretation Code 0-10 [facility] Work Phone: [phone] neutrophil count, blood 2.3 X10 3/UL Invalid Interpretation Code 2.0-7.7 [facility] Work Phone: Neutrophils/100 WBC (Bld) 49.5 % Invalid Interpretation Code 47-70 [facility] Work Phone: Neutrophils/100 WBC Auto (Bld) 49.5 % Invalid Interpretation Code 47-70 [facility] Work Phone: Platelet mean volume (Bld) [Entitic vol] 11.6 fL Invalid Interpretation Code 6.2-12.0 [facility] Work Phone: [phone] Platelets 170 10*3/mm3 Invalid Interpretation Code 150-450 [facility] Work Phone: Platelets (Bld) [#/Vol] 170 10*3/uL Invalid Interpretation Code 150-450 [facility] Work Phone: [phone] PMV by Armando 11.6 fL Invalid Interpretation Code 6.2-12.0 [facility] Work Phone: RBC (Bld) [#/Vol] 4.41 10*6/uL Low 4.6-6.2 [facility] Work Phone: RDW SD 47.8 fL High 35.1-43.9 [facility] Work Phone: red blood cell distribution width, size density 47.8 fL High 35.1-43.9 [facility] Work Phone: WBC (Bld) [#/Vol] 4.6 10*3/uL Invalid Interpretation Code 4.4-11.0 [facility] Work Phone: WBC (Leukocytes) 4.6 10*3/uL Invalid Interpretation Code 4.4-11.0 [facility] Work Phone: Lab Report: T4 Total, Thyrox inon 10-09-2016 T4 [Mass/Vol] 9.1 ug/dL Invalid Interpretation Code 4.5-12.1 [facility] Work Phone: [phone]) Lab Report: Thyroid Stim Hor fernanda (TSH)on 10-09-2016 Thyroid stimulating hormone (TSH) 0.98 u[iU]/mL Invalid Interpretation Code 0.358-3.74 [facility] Work Phone: [phone] TSH Qn 0.98 m[IU]/L Invalid Interpretation Code 0.358-3.74 [facility] Work Phone: [phone] Clinical Lists Update: 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 10-08-2016 Left ventricular Ejection fraction 35 % Invalid Interpretation Code [facility] Work Phone: [phone] Lab Report: Prothrombin Time w/INRon 04-08-2016 INR Coag (PPP) [Relative time] 1.1 {INR} Invalid Interpretation Code [facility] Work Phone: [phone] Prothrombin time (PT) Coag time (PPP) 13.4 s Invalid Interpretation Code 11.7-14.9 [facility] Work Phone: [phone] PT Coag (PPP) [Time] 13.293065068 s Invalid Interpretation Code 11.7-14.9 [facility] Work Phone: [phone] Lab Report: Urinalysis, Rout ine (Dipstick)on 04-08-2016 Albumin Ql (U) 15 High Negative [facility] Work Phone: [phone] Bilirubin Ql (U) Negative Invalid Interpretation Code Negative [facility] Work Phone: [phone] Bilirubin Ql (U) Negative Invalid Interpretation Code Negative [facility] Work Phone: [phone] Clarity (U) Clear Invalid Interpretation Code Clear [facility] Work Phone: [phone] Color (U) Yellow Invalid Interpretation Code Yellow [facility] Work Phone: [phone] Glucose Ql (U) 100 mg/dL High Normal [facility] Work Phone: [phone] Ketones (U) [Mass/Vol] Negative Invalid Interpretation Code Negative [facility] Work Phone: [phone] Leukocyte esterase Test strip Ql (U) Negative Invalid Interpretation Code Negative [facility] Work Phone: [phone] NITRITE UR Negative Invalid Interpretation Code Negative [facility] Work Phone: [phone] Occult Blood, urine Negative Invalid Interpretation Code Negative [facility] Work Phone: [phone] OCCULT BLOOD-UR Negative Invalid Interpretation Code Negative [facility] Work Phone: [phone] pH (U) 5.0 [pH] Invalid Interpretation Code 5.0 - 8.0 [facility] Work Phone: [phone] Specific gravity Refractometry (U) [Rel density] 1.025 Invalid Interpretation Code 1.002-1.03 0 [facility] Work Phone: [phone] Urine, ketones presence Negative Invalid Interpretation Code Negative [facility] Work Phone: [phone] Urine, leukocyte esterase presence Negative Invalid Interpretation Code Negative [employer] Work Phone: [phone] Urine, pH 5.0 [pH] Invalid Interpretation Code 5.0 - 8.0 [employer] Work Phone: [phone] Urine, protein 15 mg/dL High Negative [employer] Work Phone: [phone] UROBILI Normal mg/dl Invalid Interpretation Code Normal [employer] Work Phone: [phone] Office Visiton 04-08-2016 Tobacco smoking status Tobacco smoking s tatus NHIS Invalid Interpretation Code [employer] Work Phone: [phone] Tobacco use status [facility] Never smoker Invalid Interpretation Code [employer] Work Phone: [phone] Replaced Document: Brent E CG Observationson 04-08-2016 EKG QRS axis -22 deg Invalid Interpretation Code [employer] Work Phone: [phone] electrocardiogram interpretation Sinus Bradycardia - Nonspecific T-abnormality. ABNORMAL Invalid Interpretation Code [employer] Work Phone: [phone] GE use only - for [employer] import when terms are not otherwise specified 440 ms Invalid Interpretation Code [employer] Work Phone: [phone] Heart rate 52 /min Invalid Interpretation Code [employer] Work Phone: [phone] Interpretation Sinus Bradycardia - Nonspecific T-abnormality. ABNORMAL Invalid Interpretation Code [employer] Work Phone: [phone] P [place] 25 deg Invalid Interpretation Code [employer] Work Phone: [phone] P wave axis, electrocardiogram 25 deg Invalid Interpretation Code [employer] Work Phone: [phone] CT Interval 174 ms Invalid Interpretation Code [employer] Work Phone: [phone] CT interval, electrocardiogram 174 ms Invalid Interpretation Code [employer] Work Phone: [phone] QRS axis, electrocardiogram -22 deg Invalid Interpretation Code [employer] Work Phone: [phone] QRS Duration 108 ms Invalid Interpretation Code [employer] Work Phone: [phone] QRS duration, electrocardiogram 108 ms Invalid Interpretation Code [employer] Work Phone: [phone] QT Interval new path ms Invalid Interpretation Code [employer] Work Phone: [phone] QT interval, electrocardiogram new path ms Invalid Interpretation Code [employer] Work Phone: [phone] QTc Serra 440 ms Invalid Interpretation Code [employer] Work Phone: [phone] T [place] 90 deg Invalid Interpretation Code [employer] Work Phone: [phone] T wave axis, electrocardiogram 90 deg Invalid Interpretation Code [facility] Phone: [phone] Lab Report: Lipid Profileon 09-30-2015 Cholesterol [Mass/Vol] 107 mg/dL Invalid Interpretation Code 200 [facility] Phone: [phone] Cholesterol in HDL [Mass/Vol] 45 mg/dL Invalid Interpretation Code [employer] Work Phone: [phone] Cholesterol in LDL [Mass/Vol] 42 mg/dL Invalid Interpretation Code 0-130 [employer] Work Phone: [phone] Lipoprotein.pre-beta [Mass/Vol] 20 mg/dL Invalid Interpretation Code 5-40 [employer] Work Phone: [phone] Triglyceride [Mass/Vol] 99 mg/dL Invalid Interpretation Code [employer] Work Phone: [phone] Lab Report: Liver Profileon 09-30-2015 Albumin [Mass/Vol] 4.0 g/dL Invalid Interpretation Code 3.4-5.0 [employer] Work Phone: [phone] Alkaline phosphatase (ALP) 59 U/L Invalid Interpretation Code 50-136 [facility] Work Phone: [phone] ALP (Bld) [Catalytic activity/Vol] 59 U/L Invalid Interpretation Code 50-136 [facility] Work Phone: [phone] ALT [Catalytic activity/Vol] 28 U/L Invalid Interpretation Code 12-78 [facility] Work Phone: [phone] AST [Catalytic activity/Vol] 20 U/L Invalid Interpretation Code 15-37 [facility] Work Phone: [phone] Bilirubin [Mass/Vol] 1.40 mg/dL High 0.20-1.[address] [facility] Work Phone: [phone] Bilirubin.direct [Mass/Vol] 0.30 mg/dL Invalid Interpretation Code 0.00-0.30 [facility] Work Phone: [phone] Globulin 3.2 g/dL Invalid Interpretation Code 2.3-3.5 [facility] Work Phone: [phone] Globulin (S) [Mass/Vol] 3.2 g/dL Invalid Interpretation Code 2.3-3.5 [facility] Work Phone: [phone] Protein [Mass/Vol] 7.2 g/dL Invalid Interpretation Code 6.4-8.2 [facility] Work Phone: [phone] Office Visit: [facility] 09-09-20 15 General cardiovascular disease 10Y risk [#] Grisel'Fernando Not enough information Invalid Interpretation Code [facility] Work Phone: [phone] Lab Report: BNP,B-Type NATRI URETIC PEPTIDEon 11-14-2014 Natriuretic peptide B (Bld) [Mass/Vol] 86.4 pg/mL Invalid Interpretation Code 0-100 [facility] Work Phone: [phone] Lab Report: CBC W/Diff, Auto matedon 11-14-2014 Absolute Neut 2.7 X10 3/UL Invalid Interpretation Code 2.0-7.7 [facility] Work Phone: [phone] Absolute Neutrophil count 2.7 X10 3/UL Invalid Interpretation Code 2.0-7.7 [facility] Work Phone: [phone] Office Visit: [facility] 11-14-19 15 cardiac risk group C Invalid Interpretation Code [facility] Work Phone: Tobacco smoking status Never Invalid Interpretation Code [facility] Work Phone: Lab Report: MGon 08-12-2012 Magnesium [Mass/Vol] 2.0 mg/dL Normal 1.8-2.4 [facility] Work Phone: Replaced Document: Brent ROQUE Observationson 08-10-2012 Pulse (Heart Rate) 407 ms Invalid Interpretation Code [facility] Work Phone: QT interval/QT interval (corrected for heart rate), electrocardiogram 407 ms Invalid Interpretation Code [facility] Work Phone: Vital Signs Date Time Vital Sign Value Performing Clinician Facility 04-27-2025 23:07-0400 Body temperature 98.3 [degF] Dr. John Mckeon DO Work Phone: [facility] 04-27-2025 23:07-0400 Diastolic blood pressure 60 mm[Hg] Dr. John Mckeon DO Work Phone: [facility] 04-27-2025 23:07-0400 Heart rate 100 /min Dr. John Mckeon DO Work Phone: [facility] 04-27-2025 23:07-0400 Respiratory rate 18 /min Dr. John Mckeon DO Work Phone: [facility] 04-27-2025 23:07-0400 SaO2% (BldA) [Mass fraction] 97 % Dr. John Mckeon DO Work Phone: [facility] 04-27-2025 23:07-0400 Systolic blood pressure 146 mm[Hg] Dr. John Mckeon DO Work Phone: [facility] 04-27-2025 20:05-0400 Body height 160.[address] John Mckeon DO Work Phone: [facility] 04-27-2025 20:05-0400 Body mass index (BMI) [Ratio] 21.2 kg/m2 Dr. John Mckeon DO Work Phone: [facility] 04-27-2025 20:05-0400 Body weight 54.[address] John Mckeon DO Work Phone: [facility] 03-12-2025 07:30-0400 Body mass index (BMI) [Ratio] 20.7 kg/m2 Dr. John Mckeon DO Work Phone: [facility] 03-12-2025 07:30-0400 Body weight 53.[address] John Mckeon DO Work Phone: [facility] 03-12-2025 07:30-0400 Diastolic blood pressure 79 mm[Hg] Dr. John Mckeon DO Work Phone: [facility] 03-12-2025 07:30-0400 Heart rate 69 /min Dr. John Mckeon DO Work Phone: [facility] 03-12-2025 07:30-0400 Respiratory rate 18 /min Dr. John Mckeon DO Work Phone: [facility] 03-12-2025 07:30-0400 SaO2% (BldA) [Mass fraction] 97 % Dr. John Mckeon DO Work Phone: [facility] 03-12-2025 07:30-0400 Systolic blood pressure 139 mm[Hg] Dr. John Mckeon DO Work Phone: [facility] 02-26-2025 15:47-0400 Diastolic blood pressure 94 mm[Hg] Jian Jiménez MD MPH Work Phone: [facility] 02-26-2025 15:47-0400 Heart rate 72 /min Jian Jiménez MD MPH Work Phone: [facility] 02-26-2025 15:47-0400 Systolic blood pressure 162 mm[Hg] Jian Jiménez MD MPH Work Phone: [facility] 12-16-2024 17:23-0500 Body temperature 98.4 [degF] Dr. John Mckeon DO Work Phone: [facility] 12-16-2024 17:23-0500 Diastolic blood pressure 83 mm[Hg] Dr. John Mckeon DO Work Phone: [facility] 12-16-2024 17:23-0500 Heart rate 89 /min Dr. John Mckeon DO Work Phone: [facility] 12-16-2024 17:23-0500 Respiratory rate 17 /min Dr. John Mckeon DO Work Phone: [facility] 12-16-2024 17:23-0500 SaO2% (BldA) [Mass fraction] 96 % Dr. John Mckeon DO Work Phone: [facility] 12-16-2024 17:23-0500 Systolic blood pressure 146 mm[Hg] Dr. John Mckeon DO Work Phone: [facility] 12-16-2024 14:58-0500 Body height 160.[address] John Mckeon DO Work Phone: [facility] 12-16-2024 14:58-0500 Body mass index (BMI) [Ratio] 20 kg/m2 Dr. John Mckeon DO Work Phone: [facility] 12-16-2024 14:58-0500 Body weight 51.[address] John Mckeon DO Work Phone: [facility] 12-13-2024 15:40-0500 Body height 160 cm Urology Room [facility] 12-13-2024 15:40-0500 Body mass index (BMI) [Ratio] 20.55 kg/m2 Urology [facility] 12-13-2024 15:40-0500 Body weight 52.62 kg Urology [facility] 11-10-2024 10:58-0500 Body mass index (BMI) [Ratio] 21.4 kg/m2 Dr. John Mckeon DO Work Phone: [facility] 11-10-2024 10:58-0500 Body weight 54.[address] John Mckeon DO Work Phone: [facility] 11-10-2024 10:58-0500 Diastolic blood pressure 64 mm[Hg] Dr. John Mckeon DO Work Phone: [facility] 11-10-2024 10:58-0500 Heart rate 69 /min Dr. John Mckeon DO Work Phone: [facility] 11-10-2024 10:58-0500 Respiratory rate 16 /min Dr. John Mckeon DO Work Phone: [facility] 11-10-2024 10:58-0500 Systolic blood pressure 142 mm[Hg] Dr. John Mckeon DO Work Phone: [facility] 07-25-2024 13:00-0400 Diastolic blood pressure 61 mm[Hg] Asmita Zambrano MD Work Phone: [facility] 07-25-2024 13:00-0400 Heart rate 60 /min Asmita Zambrano MD Work Phone: [facility] 07-25-2024 13:00-0400 Respiratory rate 18 /min Asmita Zambrano MD Work Phone: [facility] 07-25-2024 13:00-0400 SaO2% (BldA) [Mass fraction] 96 % Asmita Zambrano MD Work Phone: [facility] 07-25-2024 13:00-0400 Systolic blood pressure 152 mm[Hg] Asmita Zambrano MD Work Phone: [facility] 07-25-2024 12:00-0400 Body temperature 97.5 [degF] Asmita Zambrano MD Work Phone: [facility] 07-25-2024 08:58-0400 Body height 160 cm Asmita Zambrano MD Work Phone: [facility] 07-25-2024 08:58-0400 Body mass index (BMI) [Ratio] 19.49 kg/m2 Asmita Zambrano MD Work Phone: [facility] 07-25-2024 08:58-0400 Body weight 49.9 kg Asmita Zambrano MD Work Phone: 5(818)799-868335 [place] [address] 07-12-2024 15:25-0400 Body mass index (BMI) [Ratio] 18.95 kg/m2 Asmita Zambrano MD Work Phone: 7(550)733-778635 [place] [address] 07-12-2024 15:25-0400 Body weight 48.53 kg Asmita Zambrano MD Work Phone: 8(356)928-719035 [place] [address] 07-12-2024 15:25-0400 Diastolic blood pressure 74 mm[Hg] Asmita Zambrano MD Work Phone: 9(730)473-623935 [place] [address] 07-12-2024 15:25-0400 Heart rate 68 /min Asmita Zambrano MD Work Phone: 5(455)302-338935 [place] [address] 07-12-2024 15:25-0400 Systolic blood pressure 143 mm[Hg] Asmita Zambrano MD Work Phone: 3(078)361-586535 [place] [address] 06-28-2024 13:36-0400 Body mass index (BMI) [Ratio] 18.6 kg/m2 Asmita Zambrano MD Work Phone: [facility] 06-28-2024 13:36-0400 Body weight 47.63 kg Asmita Zambrano MD Work Phone: [facility] 06-28-2024 13:36-0400 Diastolic blood pressure 80 mm[Hg] Asmita Zambrano MD Work Phone: [facility] 06-28-2024 13:36-0400 Heart rate 62 /min Asmita Zambrano MD Work Phone: 0(875)676-814735 [place] [address] 06-28-2024 13:36-0400 Systolic blood pressure 167 mm[Hg] Asmita Zambrano MD Work Phone: 7(626)129-369735 [place] [address] 06-14-2024 13:14-0400 Body height 160 cm Asmita Zambrano MD Work Phone: [facility] 06-14-2024 13:14-0400 Body mass index (BMI) [Ratio] 18.6 kg/m2 Asmita Zambrano MD Work Phone: [facility] 06-14-2024 13:14-0400 Body weight 47.63 kg Asmita Zambrano MD Work Phone: [facility] 05-17-2024 13:17-0400 Body height 160 cm Asmita Zambrano MD Work Phone: [facility] 05-17-2024 13:17-0400 Body mass index (BMI) [Ratio] 20.02 kg/m2 Asmita Zambrano MD Work Phone: [facility] 05-17-2024 13:17-0400 Body weight 51.26 kg Asmita Zambrano MD Work Phone: [facility] 05-17-2024 13:17-0400 Respiratory rate 16 /min Asmita Zambrano MD Work Phone: [facility] 04-26-2024 13:58-0400 Body weight 50.8 kg Asmita Zambrano MD Work Phone: [facility] 04-26-2024 13:58-0400 Respiratory rate 16 /min Asmita Zambrano MD Work Phone: 0(590)[phone] [place] [address] 11-23-2023 14:19-0500 Body height 160.[address] John Mckeon Work Phone: [facility] 11-23-2023 14:19-0500 Body mass index (BMI) [Ratio] 21 kg/m2 Dr. John Mckeon Work Phone: [facility] 11-23-2023 14:19-0500 Body weight 53.[address] John Mckeon Work Phone: [facility] 11-23-2023 14:19-0500 Diastolic blood pressure 69 mm[Hg] Dr. John Mckeon Work Phone: [facility] 11-23-2023 14:19-0500 Heart rate 66 /min Dr. John Mckeon Work Phone: [facility] 11-23-2023 14:19-0500 Respiratory rate 18 /min Dr. John Mckeon Work Phone: [facility] 11-23-2023 14:19-0500 SaO2% (BldA) [Mass fraction] 99 % Dr. John Mckeon Work Phone: [facility] 11-23-2023 14:19-0500 Systolic blood pressure 128 mm[Hg] Dr. John Mckeon Work Phone: [facility] 10-22-2023 16:24-0500 Body temperature 98.4 [degF] Dr. John Mckeon Work Phone: [facility] 10-22-2023 16:24-0500 Diastolic blood pressure 60 mm[Hg] Dr. John Mckeon Work Phone: [facility] 10-22-2023 16:24-0500 Heart rate 64 /min Dr. John Mckeon Work Phone: [facility] 10-22-2023 16:24-0500 Respiratory rate 18 /min Dr. John Mckeon Work Phone: [facility] 10-22-2023 16:24-0500 SaO2% (BldA) [Mass fraction] 99 % Dr. John Mckeon Work Phone: [facility] 10-22-2023 16:24-0500 Systolic blood pressure 110 mm[Hg] Dr. John Mckeon Work Phone: [facility] 10-20-2023 16:00-0500 Body height 160.[address] John Mckeon Work Phone: [facility] 10-20-2023 16:00-0500 Body mass index (BMI) [Ratio] 20.7 kg/m2 Dr. John Mckeon Work Phone: [facility] 10-20-2023 16:00-0500 Body weight [address] John Mckeon Work Phone: [facility] 09-06-2023 14:09-0500 Body temperature 97.4 [degF] Dr. John Mckeon Work Phone: [facility] 09-06-2023 14:09-0500 Diastolic blood pressure 74 mm[Hg] Dr. John Mckeon Work Phone: [facility] 09-06-2023 14:09-0500 Heart rate 78 /min Dr. John Mckeon Work Phone: [facility] 09-06-2023 14:09-0500 Respiratory rate 18 /min Dr. John Mckeon Work Phone: [facility] 09-06-2023 14:09-0500 SaO2% (BldA) [Mass fraction] 95 % Dr. John Mckeon Work Phone: [facility] 09-06-2023 14:09-0500 Systolic blood pressure 139 mm[Hg] Dr. John Mckeon Work Phone: [facility] 09-06-2023 06:00-0500 Body mass index (BMI) [Ratio] 19.2 kg/m2 Dr. John Mckeon Work Phone: [facility] 09-06-2023 06:00-0500 Body weight 49.[address] John Mckeon Work Phone: [facility] 09-06-2023 04:00-0500 Body temperature 97.5 [degF] Dr. John Mckeon Work Phone: [facility] 09-06-2023 04:00-0500 Diastolic blood pressure 57 mm[Hg] Dr. John Mckeon Work Phone: [facility] 09-06-2023 04:00-0500 Heart rate 64 /min Dr. John Mckeon Work Phone: [facility] 09-06-2023 04:00-0500 Respiratory rate 16 /min Dr. John Mckeon Work Phone: [facility] 09-06-2023 04:00-0500 SaO2% (BldA) [Mass fraction] 97 % Dr. John Mckeon Work Phone: [facility] 09-06-2023 04:00-0500 Systolic blood pressure 118 mm[Hg] Dr. John Mckeon Work Phone: [facility] 09-05-2023 09:30-0500 Body height 160.[address] John Mckeon Work Phone: [facility] 09-04-2023 18:13-0400 Body temperature 98.2 [degF] Dr. John Mckeon Work Phone: [facility] 09-04-2023 18:13-0400 Diastolic blood pressure 76 mm[Hg] Dr. John Mckeon Work Phone: [facility] 09-04-2023 18:13-0400 Heart rate 82 /min Dr. John Mckeon Work Phone: [facility] 09-04-2023 18:13-0400 Respiratory rate 14 /min Dr. John Mckeon Work Phone: [facility] 09-04-2023 18:13-0400 SaO2% (BldA) [Mass fraction] 97 % Dr. John Mckeon Work Phone: [facility] 09-04-2023 18:13-0400 Systolic blood pressure 108 mm[Hg] Dr. John Mckeon Work Phone: [facility] 09-04-2023 15:20-0400 Body height 160.[address] John Mckeon Work Phone: [facility] 09-04-2023 15:20-0400 Body mass index (BMI) [Ratio] 19.9 kg/m2 Dr. John Mckeon Work Phone: [facility] 09-04-2023 15:20-0400 Body weight 51.[address] John Mckeon Work Phone: [facility] 06-17-2023 14:40-0400 Diastolic blood pressure 73 mm[Hg] Dr. John Mckeon Work Phone: [facility] 06-17-2023 14:40-0400 Heart rate 55 /min Dr. John Mckeon Work Phone: [facility] 06-17-2023 14:40-0400 Respiratory rate 16 /min Dr. John Mckeon Work Phone: [facility] 06-17-2023 14:40-0400 Systolic blood pressure 148 mm[Hg] Dr. John Mckeon Work Phone: [facility] 02-25-2023 14:39-0400 Body height 160.[address] John Mckeon Work Phone: [facility] 02-25-2023 14:39-0400 Body mass index (BMI) [Ratio] 30 kg/m2 Dr. John Mckeon Work Phone: [facility] 02-25-2023 14:39-0400 Body weight 76.[address] John Mckeon Work Phone: [facility] 02-25-2023 14:39-0400 Diastolic blood pressure 83 mm[Hg] Dr. John Mckeon Work Phone: [facility] 02-25-2023 14:39-0400 Heart rate 78 /min Dr. John Mckeon Work Phone: [facility] 02-25-2023 14:39-0400 Respiratory rate 18 /min Dr. John Mckeon Work Phone: [facility] 02-25-2023 14:39-0400 Systolic blood pressure 130 mm[Hg] Dr. John Mckeon Work Phone: [facility] 01-06-2023 12:03-0500 Diastolic blood pressure 51 mm[Hg] Dr. John Mckeon Work Phone: [facility] 01-06-2023 12:03-0500 Heart rate 76 /min Dr. John Mckeon Work Phone: [facility] 01-06-2023 12:03-0500 Respiratory rate 15 /min Dr. John Mckeon Work Phone: [facility] 01-06-2023 12:03-0500 SaO2% (BldA) [Mass fraction] 96 % Dr. John Mckeon Work Phone: [facility] 01-06-2023 12:03-0500 Systolic blood pressure 109 mm[Hg] Dr. John Mckeon Work Phone: [facility] 01-06-2023 08:51-0500 Body mass index (BMI) [Ratio] 21 kg/m2 Dr. John Mckeon Work Phone: [facility] 01-06-2023 08:51-0500 Body temperature 98.2 [degF] Dr. John Mckeon Work Phone: [facility] 01-06-2023 08:51-0500 Body weight 53.[address] John Mckeon Work Phone: [facility] 12-28-2022 00:08-0500 Diastolic blood pressure 77 mm[Hg] Dr. Shailesh Mancini Work Phone: [facility] 12-28-2022 00:08-0500 Heart rate 72 /min Dr. Shailesh Mancini Work Phone: [facility] 12-28-2022 00:08-0500 Respiratory rate 16 /min Dr. Shailesh Mancini Work Phone: [facility] 12-28-2022 00:08-0500 SaO2% (BldA) [Mass fraction] 98 % Dr. Shailesh Mancini Work Phone: [facility] 12-28-2022 00:08-0500 Systolic blood pressure 139 mm[Hg] Dr. Shailesh Mancini Work Phone: [facility] 12-27-2022 20:29-0500 Body height 160.[address] Shailesh Mancini Work Phone: [facility] 12-27-2022 20:29-0500 Body mass index (BMI) [Ratio] 20.5 kg/m2 Dr. Shailesh Mancini Work Phone: [facility] 12-27-2022 20:29-0500 Body temperature 97.1 [degF] Dr. Shailesh Mancini Work Phone: [facility] 12-27-2022 20:29-0500 Body weight 52.[address] Shailesh Mancini Work Phone: [facility] 10-21-2022 17:07-0500 Body temperature 97.9 [degF] Dr. Shailesh Mancini Work Phone: [facility] 10-21-2022 17:07-0500 Diastolic blood pressure 64 mm[Hg] Dr. Shailesh Mancini Work Phone: [facility] 10-21-2022 17:07-0500 Heart rate 83 /min Dr. Shailesh Mancini Work Phone: [facility] 10-21-2022 17:07-0500 Respiratory rate 16 /min Dr. Shailesh Mancini Work Phone: [facility] 10-21-2022 17:07-0500 SaO2% (BldA) [Mass fraction] 96 % Dr. Shailesh Mancini Work Phone: [facility] 10-21-2022 17:07-0500 Systolic blood pressure 121 mm[Hg] Dr. Shailesh Mancini Work Phone: [facility] 10-21-2022 11:02-0500 Body height 160.[address] Shailesh Mancini Work Phone: [facility] Work Phone: 10-21-2022 11:02-0500 Body mass index (BMI) [Ratio] 20.2 kg/m2 Dr. Shailesh Mancini Work Phone: [facility] 10-21-2022 11:02-0500 Body weight [address] Shailesh Mancini Work Phone: [facility] 08-05-2022 14:36-0400 Body height 160.[address] Shailesh Mancini Work Phone: [facility] Work Phone: 08-05-2022 14:36-0400 Body mass index (BMI) [Ratio] 20.2 kg/m2 Dr. Shailesh Mancini Work Phone: [facility] Work Phone: 08-05-2022 14:36-0400 Body weight 51.[address] Shailesh Mancini Work Phone: [facility] Work Phone: 08-05-2022 14:36-0400 Diastolic blood pressure 60 mm[Hg] Dr. Shailesh Mancini Work Phone: [facility] Work Phone: 08-05-2022 14:36-0400 Heart rate 64 /min Dr. Shailesh Mancini Work Phone: [facility] Work Phone: 08-05-2022 14:36-0400 Respiratory rate 18 /min Dr. Shailesh Mancini Work Phone: [facility] Work Phone: 08-05-2022 14:36-0400 Systolic blood pressure 98 mm[Hg] Dr. Shailesh Mancini Work Phone: [facility] Work Phone: 06-03-2022 15:34-0400 Diastolic blood pressure 42 mm[Hg] Shailesh Mancini [facility] Work Phone: 06-03-2022 15:34-0400 Heart rate 72 /min [facility] Work Phone: 06-03-2022 15:34-0400 Respiratory rate 20 /min [facility] Work Phone: 06-03-2022 15:34-0400 Systolic blood pressure 110 mm[Hg] [facility] Work Phone: 03-05-2022 14:27-0400 Body height 160.02 cm [facility] Work Phone: 03-05-2022 14:27-0400 Body mass index (BMI) [Ratio] 20.3 kg/m2 [facility] Work Phone: 03-05-2022 14:27-0400 Body weight 52.16 kg [facility] Work Phone: 03-05-2022 14:27-0400 Diastolic blood pressure 59 mm[Hg] [facility] Work Phone: 03-05-2022 14:27-0400 Heart rate 55 /min [facility] Work Phone: 03-05-2022 14:27-0400 Respiratory rate 12 /min [facility] Work Phone: 03-05-2022 14:27-0400 Systolic blood pressure 121 mm[Hg] [facility] Work Phone: 03-05-2022 14:27-0400 Body height 160.02 cm [facility] Work Phone: 03-05-2022 14:27-0400 Body mass index (BMI) [Ratio] 20.3 kg/m2 [facility] Work Phone: 03-05-2022 14:27-0400 Body weight 52.16 kg [facility] Work Phone: 03-05-2022 14:27-0400 Diastolic blood pressure 59 mm[Hg] [facility] Work Phone: 03-05-2022 14:27-0400 Heart rate 55 /min [facility] Work Phone: 03-05-2022 14:27-0400 Respiratory rate 12 /min [facility] Work Phone: 03-05-2022 14:27-0400 Systolic blood pressure 121 mm[Hg] [facility] Work Phone: 05-24-2017 11:35-0400 Body height 160.02 cm [facility] Work Phone: 05-24-2017 11:35-0400 Body mass index (BMI) [Ratio] 23.82 kg/m2 Maureen Forman [facility] Work Phone: 05-24-2017 11:35-0400 Body [...] Systolic blood pressure 116 mm[Hg] Maureen Eliasz [facility] Work Phone: 05-24-2017 11:35-0400 Weight 61.01 kg Elsy Grubbs RN [facility] Work Phone: 04-12-2017 13:39-0400 [...] 13:39-0400 Weight 60.06 kg Elsy Grubbs RN [facility] Work Phone: 10-09-2016 12:49-0500 Body mass index (BMI) [Ratio] 24.05 kg/m2 Elsy Grubbs RN [facility] Work Phone: 10-09-2016 12:49-0500 Body [...] Work Phone: Start: 04-25-2025 ambulatory MARYURI ROMEOIN Facility:[facility] Start: 04-24-2025 End: 04-24-2025 Office outpatient visit 15 minutes Cheryl Adeel [place] HEAD OPERATOR SULFIDE-BOILER TECHNICIAN Work Phone: [facility] Comment on above: Prostate cancer (Mul ti) (Primary Dx); Urinary retention; Bladder spasm; Malignant neoplasm of prostate (Multi) Start: 04-24-2025 End: 04-24-2025 ambulatory [facility] Ambulatory Start: 04-09-2025 End: 04-09-2025 ambulatory [facility] Ambulatory Start: 03-12-2025 End: 03-12-2025 Patient encounter procedure Cynthia PRO -[facility] Work Phone: Start: 03-12-2025 End: 03-12-2025 ambulatory [facility] Facility:[facility] Start: 02-26-2025 End: 02-26-2025 Patient encounter procedure Jian Jiménez MD MPH Work Phone: [facility] Comment on above: Urinary retention Start: 02-26-2025 End: 02-26-2025 ambulatory [facility] Ambulatory Start: 02-05-2025 End: 02-05-[address] John Mckeon DO Work Phone: [facility] Work Phone: Start: 02-05-2025 End: 02-05-[address] John Mckeon DO -[facility] Start: 02-05-2025 End: 02-05-2025 ambulatory [facility] Facility:[facility] Start: 01-03-2025 End: 01-03-2025 ambulatory [facility] Ambulatory Start: 01-03-2025 End: 01-03-2025 Office outpatient visit 5 minutes Asmita Zambrano MD Work Phone: [facility] Comment on above: Urinary retention Start: 12-16-2024 End: 12-16-2024 Emergency department patient visit Dr. Timoteo Mckenna DO -Emergency Department Work Phone: Start: 12-13-2024 End: 12-13-2024 Patient encounter procedure Urology [id number] Procedure Room [facility] Comment on above: Bladder spasms (Prim federico Dx); Urinary retention Start: 12-13-2024 End: 12-13-2024 ambulatory [facility] Ambulatory Start: 12-08-2024 End: 12-08-[address] John Mckeon DO -Laboratory, [facility] Start: 12-08-2024 End: 12-08-2024 ambulatory [facility] Facility:[facility] Start: 12-06-2024 End: 12-06-2024 Office outpatient visit 15 minutes Asmita Zambrano MD Work Phone: [facility] Comment on above: Urinary retention; Bladder spasm; Malignant neoplasm of prostate (Multi) Start: 12-06-2024 End: 12-06-2024 ambulatory [facility] Ambulatory Start: 12-01-2024 End: 12-01-2024 ambulatory [facility] Facility:[facility] Start: 12-01-2024 End: 12-01-[address] Timoteo Mullins MD -[facility] Work Phone: Start: 11-10-2024 End: 11-10-[address] Timoteo Mullins MD -[facility] Work Phone: Start: 11-10-2024 End: 11-10-2024 ambulatory [facility] Start: 10-18-2024 End: 10-18-2024 Office outpatient visit 5 minutes Asmita Zambrano MD Work Phone: [facility] Comment on above: Urinary retention Start: 10-18-2024 End: 10-18-2024 ambulatory [facility] Start: 09-06-2024 End: 09-07-2024 ambulatory [facility] Start: 09-01-2024 End: 09-01-2024 ambulatory [facility] Start: 08-03-2024 End: 08-03-2024 ambulatory [facility] Facility:[facility] Start: 07-25-2024 End: 07-25-2024 Subsequent hospital visit by physician Asmita Zambrano MD Work Phone: [facility] [place] Comment on above: Urinary retention (P rimary Dx) Start: 07-24-2024 ambulatory [facility] Start: 07-12-2024 End: 07-12-2024 Office outpatient visit 25 minutes Asmita Zambrano MD Work Phone: [facility] Comment on above: Malignant neoplasm o f prostate (Multi); Abnormal digital rectal exam; Elevated PSA; Retention of urine Start: 07-12-2024 End: 07-12-2024 [facility] Ambulatory Start: 07-10-2024 End: 07-10-2024 Subsequent hospital visit by physician Darrell Ghosh [address] [place] [address] Comment on above: Malignant neoplasm o f prostate (Multi) Start: 07-10-2024 End: 07-10-2024 ambulatory [facility] Start: 07-06-2024 End: 07-06-2024 ambulatory [facility] Facility:[facility] Start: 06-28-2024 End: 06-28-2024 Office outpatient visit 25 minutes Asmita Zambrano MD Work Phone: [facility] Comment on above: Elevated PSA; Abnormal digital rectal exam; Malignant neoplasm of prostate (Multi); Retention of urine Start: 06-28-2024 End: 06-28-2024 ambulatory [facility] Start: 06-14-2024 End: 06-14-2024 Patient encounter procedure Asmita Zambrano MD Work Phone: [facility] Comment on above: Elevated PSA (Primar y Dx) Start: 06-14-2024 End: 06-14-2024 ambulatory [facility] Start: 06-02-2024 End: 06-02-2024 ambulatory [facility] Start: 05-31-2024 End: 05-31-2024 ambulatory [facility] Facility:[facility] Start: 05-30-2024 End: 05-30-2024 ambulatory [facility] Facility:[facility] Start: 05-24-2024 End: 05-24-2024 ambulatory [facility] Start: 05-23-2024 End: 05-23-2024 ambulatory [facility] Start: 05-17-2024 End: 05-17-2024 Patient encounter procedure Asmita Zambrano MD Work Phone: [facility] Comment on above: Incomplete bladder e mptying (Primary Dx) Start: 05-17-2024 End: 05-17-2024 ambulatory [facility] Amb[facility] Start: 05-17-2024 End: 05-17-2024 ambulatory [facility] Facility:[facility] Start: 04-26-2024 End: 04-26-2024 Office outpatient new 45 minutes Asmita Zambrano MD Work Phone: [facility] Comment on above: Benign prostatic hyp erplasia with lower urinary tract symptoms, symptom details unspecified; Retention of urine; Nocturia; Abnormal digital rectal exam Start: 04-26-2024 End: 04-26-2024 ambulatory [facility] Start: 11-26-2023 End: 11-26-[address] John Mckeon Work Phone: [facility] Work Phone: Start: 11-26-2023 End: 11-26-[address] [facility] Mckeon Work Phone[facility] Start: 11-23-2023 End: 11-23-[address] John Mckeon Work Phone: [facility] Work Phone: Start: 10-20-2023 End: 10-22-2023 Evaluation and management of inpatient Dr. John Mckeon Work Phone: [facility] Work Phone: Start: 10-20-2023 End: 10-22-[address] John Mckeon Work Phone: [facility] Work Phone: Start: 10-12-2023 End: 10-12-2023 Non-patient / Non-visit Dr. John Mckeon Work Phone: [facility] Work Phone: Start: 10-12-2023 End: 10-12-[address] John Mckeon Work Phone: [facility] Work Phone: Start: 10-12-2023 End: 10-12-[address] John Mckeon Work Phone: [facility] Work Phone: Start: 09-15-2023 End: 09-15-[address] John Mckeon Work Phone: [facility] Work Phone: Start: 09-15-2023 End: 09-15-[address] John Mckeon Work Phone: [facility]Laboratory, Specimen Work Phone: Start: 09-06-2023 Non-patient / Non-visit Dr. John Mckeon Work Phone: [facility] Work Phone: Start: 09-05-2023 Non-patient / Non-visit Dr. John Mckeon Work Phone: [facility] Work Phone: Start: 09-04-2023 End: 09-06-2023 Evaluation and management of inpatient Dr. John Mckeon Work Phone: [facility] Work Phone: Start: 09-04-2023 End: 09-06-[address] John Mckeon Work Phone: [facility] Work Phone: Start: 09-03-2023 End: 09-03-[address] John Mckeon Work Phone: [facility] Work Phone: Start: 08-31-2023 End: 08-31-[address] John Mckeon Work Phone: [facility] Work Phone: Start: 08-31-2023 End: 08-31-[address] [facility] Work Phone: Start: 07-20-2023 End: 07-20-[address] John Mckeon Work Phone: [facility] Work Phone: Start: 07-20-2023 End: 07-20-[address] [facility]ke[facility] Start: 07-09-2023 End: 07-09-[address] John Mckeon Work Phone: [facility] Work Phone: Start: 07-09-2023 End: 07-09-[address] [facility] Mcke[facility] Start: 06-17-2023 End: 06-17-[address] John Mckeon Work Phone: [facility] Work Phone: Start: 05-11-2023 End: 05-11-[address] John Mckeon Work Phone: [facility] Work Phone: Start: 05-11-2023 End: 05-11-[address] [facility] Mcke[facility] Work Phone: [facility] Work Phone: Start: 04-07-2023 End: 04-07-[address] John Mckeon Work Phone: [facility] Work Phone: Start: 03-26-2023 End: 03-26-[address] John Mckeon Work Phone: [facility] Work Phone: Start: 03-26-2023 End: 03-26-[address] John Mckeon Work Phone: [facility] Start: 02-25-2023 End: 02-25-[address] John Mckeon Work Phone: [facility] Start: 02-24-2023 End: 02-24-[address] John Mckeon Work Phone: [facility] Start: 02-17-2023 Non-patient / Non-visit Dr. John Mckeon Work Phone: [facility] Start: 01-06-2023 End: 01-06-2023 Emergency department patient visit Dr. John Mckeon Work Phone: [facility] Start: 12-27-2022 End: 12-28-2022 Emergency department patient visit Dr. Shailesh Mancini Work Phone: [facility] Start: 11-18-2022 End: 11-18-[address] Shailesh Mancini Work Phone: [facility] Start: 10-21-2022 End: 10-21-2022 Admission to same day surgery center Dr. Shailesh Mancini [facility] Start: 10-21-2022 End: 10-21-[address] Shailesh Mancini Work Phone: [facility] Work Phone: Start: 10-12-2022 End: 10-12-[address] Shailesh Mancini Work Phone: [facility] Work Phone: Start: 10-12-2022 End: 10-12-[address] Shailesh Mancini [facility] Start: 08-05-2022 End: 08-05-[address] Shailesh Mancini Work Phone: [facility] Start: 07-18-2022 End: 07-18-[address] Shailesh Mancini Work Phone: [facility] Start: 06-03-2022 End: 06-03-2022 Patient encounter procedure [facility] Start: 04-15-2022 End: 04-15-2022 Patient encounter procedure [facility] Start: 03-05-2022 End: 03-05-2022 Patient encounter procedure [facility] Start: 02-03-2022 End: 02-03-2022 [facility] Start: 12-31-2021 End: 12-31-2021 Patient encounter procedure [facility] Start: 10-16-2021 [facility] Start: 10-18-2011 End: 10-18-2011 REFILL [...] End: 03-04-2015 Follow Up Appt 6 months oRbbi Abbott MD Start: 03-04-2015 End: 03-04-2015 MMM [...] End: 08-23-2014 Follow Up Appt 3 months Abrli Dupree PA-C Work Phone: Start: 07-03-2014 End: [...] DTaP/Tdap/Td Vaccines (2 - Td or Tdap) [facility] Start: 10-24-2025 End: 04-24-2026 Prostate specific Ag [Mass/volume] in Serum or Plasma PSA Lab Routine Prostate cancer (Multi) Expected: 10/24/2025 (Approximate), Expires: 04/24/2026 [facility] Work Phone: Comment on above: Expected: 10/24/2025 (Approximate), Expi res: 04/24/2026 Start: 10-23-2025 End: 10-23-2025 Patient encounter procedure 10/23/2025 1:30 PM EST Office Visit [facility] [address] [facility] [address] [place] [phone] Cheryl Sutherland, HEAD OPERATOR SULFIDE-BOILER TECHNICIAN [address] [place] [address] [facility] Start: 07-21-2025 Creatinine measurement Creatinine Level [facility] Start: 05-21-2025 End: 05-21-2025 Clinical Support 05/21/2025 1:30 PM EDT Clinical Support [facility] [address] [facility] [address] [place] [phone] [facility] Start: 04-27-2025 [facility] Start: 04-24-2025 End: 04-24-2026 Prostate specific Ag [Mass/volume] in Serum or Plasma PSA Lab Routine Prostate cancer (Multi) Expected: 04/24/2025 (Approximate), Expires: 04/24/2026 [facility] Service Area Work Phone: Comment on above: Expected: 04/24/2025 (Approximate), Expi res: 04/24/2026 Start: 04-06-2025 End: 04-06-2025 Clinical Support 04/06/2025 2:00 PM EDT Clinical Support [address] [phone] [facility] Start: 02-26-2025 End: 02-26-2025 Patient encounter procedure 02/26/2025 3:15 PM EDT Office Visit [address] [place] [phone] Jian Caro MD MPH [address] [place] [address] [facility] Start: 02-26-2025 End: 02-13-2026 Suprapubic Catheter Insertion Suprapubic Catheter Insertion Procedures Routine Urinary retention Expected: 02/26/2025 (Approximate), Expires: 02/13/2026 [facility] Service Area Work Phone: Comment on above: Expected: 02/26/2025 (Approximate), Expi res: 02/13/2026 Start: 01-03-2025 End: 01-03-2025 Clinical Support 01/03/2025 2:15 PM EST Clinical Support [address] [place] [address] [facility] Start: 12-16-2024 [facility] Start: 12-13-2024 End: 12-13-2024 Patient encounter procedure 12/13/2024 3:15 PM EST Procedure Visit [address] [place] [address] [facility] Start: 12-06-2024 End: 12-06-2024 Clinical Support 12/06/2024 3:00 PM EST Clinical Support [address] [place] [address] [facility] Start: 07-25-2024 Subsequent hospital visit by physician 07/25/[address] [facility] [place] [address] [place] [address] [place] [address] [place], [place] [id number] [facility] [place] Start: 07-25-2024 End: 07-25-2024 Cystostomy cystotomy w/drainage Cystotomy Suprapubic Urinary retention 07/25/2024 10:54 AM EDT [facility] [place] Start: 07-12-2024 End: 07-12-2024 Patient encounter procedure 07/12/2024 3:30 PM EDT Office Visit [address] [phone] Asmita Zambrano MD [address] [place], [place] [phone] [facility] Start: 07-10-2024 End: 07-10-2024 Patient encounter procedure 07/10/2024 2:15 PM EDT Appointment [address] [phone] [facility] Start: 07-02-2024 COVID-19 Vaccine ( season) COVID-19 Vaccine () [facility] Start: 07-02-2024 COVID-19 Vaccine ( season) COVID-19 Vaccine ( season) [facility] Start: 07-02-2024 Influenza vaccination Influenza Vaccine (#1) [facility] Start: 06-28-2024 End: 06-28-2025 Creatinine [Mass/volume] in Serum or Plasma Creatinine, Serum Lab Routine Retention of urine Expected: 06/28/2024 (Approximate), Expires: 06/28/2025 [facility] Work Phone: Comment on above: Expected: 06/28/2024 (Approximate), Expi res: 06/28/2025 Start: 06-28-2024 End: 06-28-2025 CT Abdomen and Pelvis W contrast IV CT abdomen pelvis w IV contrast Imaging Routine Malignant neoplasm of prostate (Multi) Expected: 06/28/2024 (Approximate), Expires: 06/28/2025 [facility] Service Area Work Phone: Comment on above: Expected: 06/28/2024 (Approximate), Expi res: 06/28/2025 Start: 06-28-2024 End: 06-28-2024 Patient encounter procedure 06/28/2024 1:30 PM EDT Office Visit [address] [phone] Asmita Zambrano MD [address] [place] [phone] [facility] Start: 05-24-2024 End: 05-24-2024 Patient encounter procedure 05/24/2024 3:15 PM EDT Office Visit [address] [phone] Asmita Zambrano MD [address] [place] [id number] [facility] Start: 04-26-2024 End: 04-26-2025 Creatinine [Mass/volume] in Serum or Plasma Creatinine, Serum Lab Routine Nocturia Expected: 04/26/2024 (Approximate), Expires: 04/26/2025 [facility] Work Phone: Comment on above: Expected: 04/26/2024 (Approximate), Expi res: 04/26/2025 Start: 04-26-2024 End: 04-26-2025 CT Pelvis W contrast IV CT pelvis w IV contrast Imaging Routine Abnormal digital rectal exam Expected: 04/26/2024 (Approximate), Expires: 04/26/2025 [facility] Work Phone: Comment on above: Expected: 04/26/2024 (Approximate), Expi res: 04/26/2025 Start: 04-26-2024 End: 04-26-2025 Prostate specific Ag [Mass/volume] in Serum or Plasma Prostate Specific Antigen Lab Routine Nocturia Abnormal digital rectal exam Expected: 04/26/2024 (Approximate), Expires: 04/26/2025 [facility] Service Area Work Phone: Comment on above: Expected: 04/26/2024 (Approximate), Expi res: 04/26/2025 Start: 10-22-2023 Patient discharge [facility] Start: 10-22-2023 Removal of urinary catheter [facility] Start: 10-21-2023 [facility] Start: 10-20-2023 Following clinical pathway protocol [facility] Start: 10-20-2023 Application of intermittent pneumatic compression device [facility] Start: 10-20-2023 Anesthesia transurethral resection of prostate ANESTH REMOVAL OF PROSTATE [facility] Start: 10-20-2023 Trurl rescj residual/regrowth obstr prstate tiss REMOVE PROSTATE REGROWTH [facility] Start: 10-20-2023 Oxygen therapy [facility] Start: 10-20-2023 Admission procedure [facility] Start: 10-20-2023 Deep breathing and coughing exercises [facility] Start: 10-20-2023 Incentive spirometry [facility] Start: 10-20-2023 Irrigation of urinary bladder [facility] Start: 10-20-2023 Measuring intake and output [facility] Start: 10-20-2023 Patient education [facility] Start: 10-20-2023 Provision of activity privileges [facility] Start: 10-20-2023 Taking patient vital signs [facility] Start: 10-20-2023 Vital signs measurements [facility] Start: 10-20-2023 [facility] Start: 09-06-2023 Referral to service [facility] Start: 09-06-2023 Patient discharge [facility] Start: 09-04-2023 End: 09-04-2023 Following clinical pathway protocol [facility] Start: 09-04-2023 Assessment of risk of venous thromboembolism [facility] Start: 09-04-2023 Incentive spirometry [facility] Start: 09-04-2023 Inhalation therapy procedure [facility] Start: 09-04-2023 Insertion of catheter into peripheral vein [facility] Start: 09-04-2023 Measuring intake and output [facility] Start: 09-04-2023 Providing care according to standard [facility] Start: 09-04-2023 Provision of activity privileges [facility] Start: 09-04-2023 Referral to occupational therapist [facility] Start: 09-04-2023 Referral to service [facility] Start: 09-04-2023 [facility] Start: 09-04-2023 Verification routine [facility] Start: 09-04-2023 Admission procedure [facility] Start: 09-04-2023 Hospital admission, emergency, from emergency room, medical nature [facility] Start: 09-04-2023 End: 09-05-2023 [facility] Start: 09-04-2023 Bacteria identified in Urine by Culture Urine Culture [facility] Start: 09-04-2023 Urine culture Urine Culture [facility] Start: 09-04-2023 Patient referral to dietitian [facility] Start: 07-02-2023 COVID-19 Vaccine ( season) COVID-19 Vaccine ( season) [facility] Start: 01-06-2023 Enteric precautions [facility] Start: 10-21-2022 Ambulation without limitation [facility] Start: 10-21-2022 Medication education [facility] Start: 10-21-2022 Patient discharge [facility] Start: 10-21-2022 Taking patient vital signs [facility] Start: 10-21-2022 [facility] Start: 10-21-2022 Anes transurethral w/urethrocystoscopy nos ANESTH BLADDER SURGERY [facility] Start: 10-21-2022 Cystourethroscopy w/internal urethrotomy male CYSTOSCOPY AND TREATMENT [facility] Start: 07-02-2021 Influenza vaccination INFLUENZA (Season Ended) [facility] Start: 04-08-2021 Lipid panel Lipid Panel [facility] Start: 03-05-2019 DIABETES SCREEN DIABETES SCREEN [facility] Start: 12-29-2017 End: 12-29-2017 Appointment Appointment [facility] Work Phone: Start: 10-22-2017 End: 10-22-2017 Appointment Appointment [facility] Work Phone: Start: 10-09-2017 Creatinine measurement Creatinine Level [facility] Start: 10-09-2017 Potassium measurement Potassium Level [facility] Start: 09-27-2017 End: 09-28-2017 Follow Up Appt 3 months Follow Up Appt 3 months [facility] Work Phone: Start: 09-27-2017 End: 09-28-2017 Pacer Clinic [facility] Work Phone: Start: 09-27-2017 End: 09-27-2017 Patient encounter procedure Appointment [facility] Work Phone: Start: 09-27-2017 End: 10-13-2017 Follow Up Appt 3 months Follow Up Appt 3 months [facility] Work Phone: Start: 09-27-2017 End: 10-13-2017 Pacer Clinic Pac[facility] Clinic [facility] Work Phone: Start: 06-28-2017 End: 06-28-2017 Patient encounter procedure Appointment [facility] Work Phone: Start: 06-28-2017 End: 06-28-2017 Follow Up Appt 3 months Follow Up Appt 3 months [facility] Work Phone: Start: 06-28-2017 End: 06-28-2017 Pacer Clinic Pacer Clinic [facility] Work Phone: Start: 06-28-2017 End: 10-13-2017 Follow Up Appt 3 months Follow Up Appt 3 months [facility] Work Phone: Start: 06-28-2017 End: 10-13-2017 Pacer Clinic Pacer Clinic [facility] Work Phone: Start: 05-24-2017 End: 05-24-2017 Follow Up Appt Other Follow Up Appt Other [facility] Work Phone: Start: 05-24-2017 End: 05-24-2017 MMM MMM [facility] Work Phone: Start: 05-24-2017 End: 05-24-2017 Nuclear stress test -Lexiscan Nuclear stress test -Lexiscan [facility] Work Phone: Start: 05-24-2017 End: 05-24-2017 PFM PFM [facility] Work Phone: Start: 05-24-2017 End: 05-24-2017 Patient encounter procedure Appointment [facility] Work Phone: Start: 05-24-2017 End: 05-24-2017 Follow Up Appt Other Follow Up Appt Other [facility] Work Phone: Start: 05-24-2017 End: 05-24-2017 MMM MMM [facility] Work Phone: Start: 05-24-2017 End: 05-24-2017 Nuclear stress test -Lexiscan Nuclear stress test -Lexiscan [facility] Work Phone: Start: 05-24-2017 End: 05-24-2017 PFM PFM [facility] Work Phone: Start: 04-12-2017 End: 04-12-2017 Follow Up Appt 6 months Follow Up Appt 6 months [facility] Work Phone: Start: 04-12-2017 End: 04-12-2017 Follow Up Appt Other Follow Up Appt Other [facility] Work Phone: Start: 04-12-2017 End: 04-12-2017 MMM MMM [facility] Work Phone: Start: 04-12-2017 End: 04-12-2017 Patient encounter procedure Appointment [facility] Work Phone: Start: 04-12-2017 End: 10-13-2017 Follow Up Appt 6 months Follow Up Appt 6 months [facility] Work Phone: Start: 04-12-2017 End: 10-13-2017 Follow Up Appt Other Follow Up Appt Other [facility] Work Phone: Start: 04-12-2017 End: 10-13-2017 MMM MMM [facility] Work Phone: Start: 03-22-2017 End: 03-23-2017 Follow Up Appt 3 months Follow Up Appt 3 months [facility] Work Phone: Start: 03-22-2017 End: 03-23-2017 Pacer Clinic [facility] Work Phone: Start: 03-22-2017 End: 10-13-2017 Follow Up Appt 3 months Follow Up Appt 3 months [facility] Work Phone: Start: 03-22-2017 End: 10-13-2017 Pacer Clinic Pacer Clinic [facility] Work Phone: Start: 12-17-2016 End: 12-17-2016 Follow Up Appt 3 months Follow Up Appt 3 months [facility] Work Phone: Start: 12-17-2016 End: 12-17-2016 Pacer Clinic Pacer Clinic [facility] Work Phone: Start: 12-17-2016 End: 10-13-2017 Follow Up Appt 3 months Follow Up Appt 3 months [facility] Work Phone: Start: 12-17-2016 End: 10-13-2017 Pacer Clinic Pacer Clinic [facility] Work Phone: Start: 10-09-2016 End: 10-12-2016 *BMP *BMP [facility] Work Phone: Start: 10-09-2016 End: 10-09-2016 *CBC with Differential *CBC with Differential [facility] Work Phone: Start: 10-09-2016 End: 10-09-2016 BNP *Brain Natriuretic Peptide BNP [facility] Work Phone: Start: 10-09-2016 End: 10-12-2016 Chest x-ray X-Ray, Chest, PA & Lateral [facility] Work Phone: Start: 10-09-2016 End: 10-09-2016 Follow Up Appt Other Follow Up Appt Other [facility] Work Phone: Start: 10-09-2016 End: 10-12-2016 Thyroid stimulating hormone (TSH) *TSH [facility] Work Phone: Start: 10-09-2016 End: 10-12-2016 Thyroxine (T4) *T4 (Total) [facility] Work Phone: Start: 10-09-2016 End: 10-12-2016 Basic metabolic 2000 panel - Serum or Plasma *BMP [facility] Work Phone: Start: 10-09-2016 End: 10-09-2016 CBC W Auto Differential panel - Blood *CBC with Differential [facility] Work Phone: Start: 10-09-2016 End: 10-12-2016 Chest x-ray X-Ray, Chest, PA & Lateral [facility] Work Phone: Start: 10-09-2016 End: 10-09-2016 Follow Up Appt Other Follow Up Appt Other [facility] Work Phone: Start: 10-09-2016 End: 10-09-2016 Natriuretic peptide B [Mass/volume] in Blood *Brain Natriuretic Peptide BNP [facility] Work Phone: Start: 10-09-2016 End: 10-12-2016 Thyrotropin [Units/volume] in Serum or Plasma *TSH [facility] Work Phone: Start: 10-09-2016 End: 10-12-2016 Thyroxine (T4) [Mass/volume] in Serum or Plasma *T4 (Total) [facility] Work Phone: Start: 09-08-2016 End: 09-30-2016 Follow Up Appt 3 months Follow Up Appt 3 months [facility] Work Phone: Start: 09-08-2016 End: 09-30-2016 Pacer Clinic Pacer Clinic [facility] Work Phone: Start: 09-08-2016 End: 09-30-2016 Follow Up Appt 3 months Follow Up Appt 3 months [facility] Work Phone: Start: 09-08-2016 End: 09-30-2016 Pacer Clinic Pacer Clinic [facility] Work Phone: Start: 04-24-2016 End: 09-30-2016 Follow Up Appt 3 months Follow Up Appt 3 months [facility] Work Phone: Start: 04-24-2016 End: 09-30-2016 Pacer Clinic [facility] Work Phone: Start: 04-24-2016 End: 09-30-2016 Follow Up Appt 3 months Follow Up Appt 3 months [facility] Work Phone: Start: 04-24-2016 End: 09-30-2016 Pacer Clinic Pacer Clinic [facility] Work Phone: Start: 04-09-2016 End: 04-09-2016 *BMP *BMP [facility] Work Phone: Start: 04-09-2016 End: 04-08-2016 *UA - Urinalysis w/o Micro *UA - Urinalysis w/o Micro [facility] Work Phone: Start: 04-09-2016 End: 04-08-2016 CBC W Auto Differential panel - Blood *CBC without Diff [facility] Work Phone: Start: 04-09-2016 End: 04-08-2016 INR Coag RelTime (PPP) *PT/INR [facility] Work Phone: Start: 04-09-2016 End: 04-08-2016 Pacemaker Generator Change Pacemaker Generator Change [facility] Work Phone: Start: 04-09-2016 End: 04-08-2016 *UA - Urinalysis w/o Micro *UA - Urinalysis w/o Micro [facility] Work Phone: Start: 04-09-2016 End: 04-09-2016 Basic metabolic 2000 panel - Serum or Plasma *BMP [facility] Work Phone: Start: 04-09-2016 End: 04-08-2016 CBC W Auto Differential panel - Blood *CBC without Diff [facility] Work Phone: Start: 04-09-2016 End: 04-08-2016 INR in Platelet poor plasma by Coagulation assay *PT/INR [facility] Work Phone: Start: 04-09-2016 End: 04-08-2016 Pacemaker Generator Change Pacemaker Generator Change [facility] Work Phone: Start: 04-08-2016 End: 04-08-2016 *Hepatic Function Panel *Hepatic Function Panel [facility] Work Phone: Start: 04-08-2016 End: 04-08-2016 Ecg routine ecg w/least 12 lds w/i&r EKG (In office) [facility] Work Phone: Start: 04-08-2016 End: 04-08-2016 Follow Up Appt 6 months Follow Up Appt 6 months [facility] Phone: Start: 04-08-2016 End: 04-08-2016 Lipid panel [AGGREGATE] *Lipid Profile CC PCP [facility] Work Phone: Start: 04-08-2016 End: 04-08-2016 MMM MMM [facility] Work Phone: Start: 04-08-2016 End: 04-08-2016 Ecg routine ecg w/least 12 lds w/i&r EKG (In office) [facility] Work Phone: Start: 04-08-2016 End: 04-08-2016 Follow Up Appt 6 months Follow Up Appt 6 months [facility] Phone: Start: 04-08-2016 End: 10-13-2017 Hepatic function 2000 panel - Serum or Plasma *Hepatic Function Panel [facility] Phone: Start: 04-08-2016 End: 10-13-2017 Lipid 1996 panel - Serum or Plasma *Lipid Profile CC PCP [facility] Work Phone: Start: 04-08-2016 End: 04-08-2016 MMM MMM [facility] Work Phone: Start: 03-30-2016 End: [...] Serum or Plasma *Lipid Profile CC PCP [facility] Work Phone: Start: 03-19-2016 End: 04-08-2016 Chest x-ray X-Ray, Chest, PA & Lateral [facility] Work Phone: Start: 03-19-2016 End: 09-30-2016 Ecg routine ecg w/least 12 lds w/i&r EKG (In office) [facility] Work Phone: Start: 03-19-2016 End: 04-08-2016 Chest x-ray X-Ray, Chest, PA & Lateral [facility] Work Phone: Start: 03-19-2016 End: 09-30-2016 Ecg routine ecg w/least 12 lds w/i&r EKG (In office) [facility] Work Phone: Start: 02-28-2016 End: 09-30-2016 Follow Up Appt 1 month Follow Up Appt 1 month [facility] Work Phone: Start: 02-28-2016 End: 09-30-2016 Pacer Clinic Pacer Clinic [facility] Work Phone: Start: 02-28-2016 End: 09-30-2016 Follow Up Appt 1 month Follow Up Appt 1 month [facility] Work Phone: Start: 02-28-2016 End: [...] 01-17-2016 End: 09-30-2016 Pacer Clinic Pacer Clinic [facility] Work Phone: Start: 11-15-2015 End: [...] 1 month Follow Up Appt 1 month [facility] Work Phone: Start: 10-02-2015 End: 09-30-2016 Pacer Clinic Pacer Clinic [facility] Work Phone: Start: 10-02-2015 End: 09-30-2016 Follow Up Appt 1 month Follow Up Appt 1 month [facility] Work Phone: Start: 10-02-2015 End: 09-30-2016 Pacer Clinic Pacer Clinic [facility] Work Phone: Start: 09-09-2015 End: 09-30-2015 *BMP *BMP [facility] Work Phone: Start: 09-09-2015 End: 09-30-2015 *CBC with Differential *CBC with Differential [facility] Work Phone: Start: 09-09-2015 End: 09-30-2015 *Hepatic Function Panel *Hepatic Function Panel [facility] Work Phone: Start: 09-09-2015 End: 09-30-2015 BNP *Brain Natriuretic Peptide BNP [facility] Work Phone: Start: 09-09-2015 End: 10-09-2016 Chest x-ray X-Ray, Chest, PA & Lateral [facility] Work Phone: Start: 09-09-2015 End: 09-30-2016 Follow Up Appt 1 month Follow Up Appt 1 month [facility] Work Phone: Start: 09-09-2015 End: 09-09-2015 Follow Up Appt 6 months Follow Up Appt 6 months [facility] Work Phone: Start: 09-09-2015 End: 09-30-2015 Lipid panel [AGGREGATE] *Lipid Profile CC PCP [facility] Work Phone: Start: 09-09-2015 End: 09-30-2016 Pacer Clinic Pacer Clinic [facility] Work Phone: Start: 09-09-2015 End: 09-09-2015 PFM PFM [facility] Work Phone: Start: 09-09-2015 End: 09-30-2015 Basic metabolic 2000 panel - Serum or Plasma *BMP [facility] Work Phone: Start: 09-09-2015 End: 09-30-2015 CBC W Auto Differential panel - Blood *CBC with Differential [facility] Work Phone: Start: 09-09-2015 End: 10-09-2016 Chest x-ray X-Ray, Chest, PA & Lateral [facility] Work Phone: Start: 09-09-2015 End: 09-30-2016 Follow Up Appt 1 month Follow Up Appt 1 month [facility] Work Phone: Start: 09-09-2015 End: 09-09-2015 Follow Up Appt 6 months Follow Up Appt 6 months [facility] Work Phone: Start: 09-09-2015 End: 09-30-2015 Hepatic function 2000 panel - Serum or Plasma *Hepatic Function Panel [facility] Work Phone: Start: 09-09-2015 End: 09-30-2015 Lipid 1996 panel - Serum or Plasma *Lipid Profile CC PCP [facility] Work Phone: Start: 09-09-2015 End: 09-30-2015 Natriuretic peptide B [Mass/volume] in Blood *Brain Natriuretic Peptide BNP [facility] Work Phone: Start: 09-09-2015 End: 09-30-2016 Pacer Clinic Pacer Clinic [facility] Work Phone: Start: 09-09-2015 End: 09-09-2015 PFM PFM [facility] Work Phone: Start: 05-06-2015 End: 09-03-2015 Follow Up Appt 3 months Follow Up Appt 3 months [facility] Work Phone: Start: 05-06-2015 End: 09-03-2015 Pacer Clinic Pac[facility] Clinic [facility] Work Phone: Start: 05-06-2015 End: 09-03-2015 Follow Up Appt 3 months Follow Up Appt 3 months [facility] Work Phone: Start: 05-06-2015 End: 09-03-2015 Pacer Clinic Pacer Clinic [facility] Work Phone: Start: 04-01-2015 End: 09-09-2015 *Hepatic Function Panel *Hepatic Function Panel [facility] Work Phone: Start: 04-01-2015 End: 09-09-2015 Lipid panel [AGGREGATE] *Lipid Profile CC PCP [facility] Work Phone: Start: 04-01-2015 End: 09-09-2015 Hepatic function 2000 panel - Serum or Plasma *Hepatic Function Panel [facility] Work Phone: Start: 04-01-2015 End: 09-09-2015 Lipid 1996 panel - Serum or Plasma *Lipid Profile CC PCP [facility] Work Phone: Start: 03-04-2015 End: 03-04-2015 Follow Up Appt 6 months Follow Up Appt 6 months [facility] Work Phone: Start: 03-04-2015 End: 03-04-2015 MMM MMM [facility] Work Phone: Start: 03-04-2015 End: 03-04-2015 Follow Up Appt 6 months Follow Up Appt 6 months [facility] Work Phone: Start: 03-04-2015 End: 03-04-2015 MMM MMM [facility] Work Phone: Start: 01-16-2015 End: 09-03-2015 Follow Up Appt 3 months Follow Up Appt 3 months [facility] Work Phone: Start: 01-16-2015 End: 09-03-2015 Pacer Clinic Pacer Clinic [facility] Work Phone: Start: 01-16-2015 End: 09-03-2015 Follow Up Appt 3 months Follow Up Appt 3 months [facility] Work Phone: Start: 01-16-2015 End: 09-03-2015 Pacer Clinic Pacer Clinic [facility] Work Phone: Start: 11-30-2014 End: 11-30-2014 Follow Up Appt Other Follow Up Appt Other [facility] Work Phone: Start: 11-30-2014 End: 11-30-2014 PFM PFM [facility] Work Phone: Start: 11-30-2014 End: 11-30-2014 Follow Up Appt Other Follow Up Appt Other [facility] Work Phone: Start: 11-30-2014 End: 11-30-2014 PFM PFM [facility] Work Phone: Start: 11-29-2014 End: 11-29-2014 *BMP *BMP [facility] Work Phone: Start: 11-29-2014 End: 11-29-2014 Basic metabolic 2000 panel - Serum or Plasma *BMP [facility] Work Phone: Start: 11-14-2014 End: 11-15-2014 *BMP *BMP [facility] Work Phone: Start: 11-14-2014 End: 11-15-2014 *CBC with Differential *CBC with Differential [facility] Work Phone: Start: 11-14-2014 End: 11-15-2014 BNP *Brain Natriuretic Peptide BNP [facility] Work Phone: Start: 11-14-2014 End: 11-15-2014 Chest x-ray X-Ray, Chest, PA & Lateral [facility] Work Phone: Start: 11-14-2014 End: 11-14-2014 Follow up Appt 3 weeks Follow up Appt 3 weeks [facility] Work Phone: Start: 11-14-2014 End: 11-14-2014 MMM MMM [facility] Work Phone: Start: 11-14-2014 End: 11-15-2014 Basic metabolic 2000 panel - Serum or Plasma *BMP [facility] Work Phone: Start: 11-14-2014 End: 11-15-2014 CBC W Auto Differential panel - Blood *CBC with Differential [facility] Work Phone: Start: 11-14-2014 End: 11-15-2014 Chest x-ray X-Ray, Chest, PA & Lateral [facility] Work Phone: Start: 11-14-2014 End: 11-14-2014 Follow up Appt 3 weeks Follow up Appt 3 weeks [facility] Work Phone: Start: 11-14-2014 End: 11-14-2014 MMM MMM [facility] Work Phone: Start: 11-14-2014 End: 11-15-2014 Natriuretic peptide B [Mass/volume] in Blood *Brain Natriuretic Peptide BNP [facility] Work Phone: Start: 10-16-2014 End: 11-14-2014 Follow Up Appt 3 months Follow Up Appt 3 months [facility] Work Phone: Start: 10-16-2014 End: 11-14-2014 Pacer Clinic Pacer Clinic [facility] Work Phone: Start: 10-16-2014 End: 11-14-2014 Follow Up Appt 3 months Follow Up Appt 3 months [facility] Work Phone: Start: 10-16-2014 End: 11-14-2014 Pacer Clinic Pacer Clinic [facility] Work Phone: Start: 09-03-2014 End: 10-01-2014 *Hepatic Function Panel *Hepatic Function Panel [facility] Phone: Start: 09-03-2014 End: 09-03-2014 Ecg routine ecg w/least 12 lds w/i&r EKG (In office) [facility] Work Phone: Start: 09-03-2014 End: 09-03-2014 Follow Up Appt Other Follow Up Appt Other [facility] Phone: Start: 09-03-2014 End: 10-01-2014 Lipid panel [AGGREGATE] *Lipid Profile CC PCP [facility] Work Phone: Start: 09-03-2014 End: 09-03-2014 PFM PFM [facility] Work Phone: Start: 09-03-2014 End: 09-03-2014 Ecg routine ecg w/least 12 lds w/i&r EKG (In office) [facility] Work Phone: Start: 09-03-2014 End: 09-03-2014 Follow Up Appt Other Follow Up Appt Other [facility] Phone: Start: 09-03-2014 End: 10-01-2014 Hepatic function 2000 panel - Serum or Plasma *Hepatic Function Panel [facility] Work Phone: Start: 09-03-2014 End: 10-01-2014 Lipid 1996 panel - Serum or Plasma *Lipid Profile CC PCP [facility] Work Phone: Start: 09-03-2014 End: 09-03-2014 PFM PFM [facility] Work Phone: Start: 07-03-2014 End: 08-23-2014 Follow Up Appt 3 months Follow Up Appt 3 months [facility] Work Phone: Start: 07-03-2014 End: 08-23-2014 Pacer Clinic Pacer Clinic [facility] Work Phone: Start: 07-03-2014 End: 08-23-2014 Follow Up Appt 3 months Follow Up Appt 3 months [facility] Work Phone: Start: 07-03-2014 End: 08-23-2014 Pacer Clinic Pacer Clinic [facility] Work Phone: Start: 04-04-2014 End: 07-03-2014 Follow Up Appt 3 months Follow Up Appt 3 months [facility] Work Phone: Start: 04-04-2014 End: 07-03-2014 Pacer Clinic Pacer Clinic [facility] Work Phone: Start: 04-04-2014 End: 07-03-2014 Follow Up Appt 3 months Follow Up Appt 3 months [facility] Work Phone: Start: 04-04-2014 End: 07-03-2014 Pacer Clinic Pacer Clinic [facility] Work Phone: Start: 03-02-2014 End: 10-01-2014 *Hepatic Function Panel *Hepatic Function Panel [facility] Work Phone: Start: 03-02-2014 End: 03-02-2014 Follow Up Appt 6 months Follow Up Appt 6 months [facility] Work Phone: Start: 03-02-2014 End: 10-01-2014 Lipid panel [AGGREGATE] *Lipid Profile CC PCP [facility] Work Phone: Start: 03-02-2014 End: 03-02-2014 MMM MMM [facility] Work Phone: Start: 03-02-2014 End: 03-02-2014 Follow Up Appt 6 months Follow Up Appt 6 months [facility] Work Phone: Start: 03-02-2014 End: 10-01-2014 Hepatic function 2000 panel - Serum or Plasma *Hepatic Function Panel [facility] Work Phone: Start: 03-02-2014 End: 10-01-2014 Lipid 1996 panel - Serum or Plasma *Lipid Profile CC PCP [facility] Work Phone: Start: 03-02-2014 End: 03-02-2014 MMM MMM [facility] Work Phone: Start: 01-30-2014 End: [...] Serum or Plasma *Lipid Profile CC PCP [facility] Work Phone: Start: 12-26-2013 End: 07-03-2014 Follow Up Appt 3 months Follow Up Appt 3 months [facility] Work Phone: Start: 12-26-2013 End: 07-03-2014 Pacer Clinic Pacer Clinic [facility] Work Phone: Start: 12-26-2013 End: 07-03-2014 Follow Up Appt 3 months Follow Up Appt 3 months [facility] Work Phone: Start: 12-26-2013 End: 07-03-2014 Pacer Clinic Pacer Clinic [facility] Work Phone: Start: 08-17-2013 End: 12-18-2013 Follow Up Appt 3 months Follow Up Appt 3 months [facility] Work Phone: Start: 08-17-2013 End: 12-18-2013 Pacer Clinic Pacer Clinic [facility] Work Phone: Start: 08-17-2013 End: 12-18-2013 Follow Up Appt 3 months Follow Up Appt 3 months [facility] Work Phone: Start: 08-17-2013 End: 12-18-2013 Pacer Clinic Pacer Clinic [facility] Work Phone: Start: 08-04-2013 End: 08-18-2013 *Hepatic Function Panel *Hepatic Function Panel [facility] Work Phone: Start: 08-04-2013 End: 08-04-2013 Device Interrogation Device Interrogation [facility] Work Phone: Start: 08-04-2013 End: 08-04-2013 Follow Up Appt 6 months Follow Up Appt 6 months [facility] Work Phone: Start: 08-04-2013 End: 08-18-2013 Lipid panel [AGGREGATE] *Lipid Profile PCP [facility] Work Phone: Start: 08-04-2013 End: 08-04-2013 PFM PFM [facility] Work Phone: Start: 08-04-2013 End: 08-04-2013 Device Interrogation Device Interrogation [facility] Work Phone: Start: 08-04-2013 End: 08-04-2013 Follow Up Appt 6 months Follow Up Appt 6 months [facility] Work Phone: Start: 08-04-2013 End: 08-18-2013 Hepatic function 2000 panel - Serum or Plasma *Hepatic Function Panel [facility] Work Phone: Start: 08-04-2013 End: 08-18-2013 Lipid 1996 panel - Serum or Plasma *Lipid Profile CC PCP [facility] Work Phone: Start: 08-04-2013 End: 08-04-2013 PFM PFSpace Ape [facility] Work Phone: Start: 05-19-2013 End: 08-04-2013 Follow Up Appt 3 months Follow Up Appt 3 months [facility] Work Phone: Start: 05-19-2013 End: 08-04-2013 Pacer Clinic Pacer Clinic [facility] Work Phone: Start: 05-19-2013 End: [...] Up Appt Other Follow Up Appt Other [facility] Work Phone: Start: 03-20-2013 End: 08-04-2013 PFM PFSpace Ape [facility] Work Phone: Start: 03-20-2013 End: 08-04-2013 Follow Up Appt 6 months Follow Up Appt 6 months [facility] Work Phone: Start: 03-20-2013 End: 03-20-2013 Follow Up Appt Other Follow Up Appt Other [facility] Work Phone: Start: 03-20-2013 End: 08-04-2013 PFM PFSpace Ape [facility] Work Phone: Start: 02-15-2013 End: 03-20-2013 Follow Up Appt 3 months Follow Up Appt 3 months [facility] Work Phone: Start: 02-15-2013 End: 03-20-2013 Pacer Clinic Pacer Clinic [facility] Work Phone: Start: 02-15-2013 End: 03-20-2013 Follow Up Appt 3 months Follow Up Appt 3 months [facility] Work Phone: Start: 02-15-2013 End: 03-20-2013 Pacer Clinic Pacer Clinic [facility] Work Phone: Start: 01-30-2013 End: 03-20-2013 *Hepatic Function Panel *Hepatic Function Panel [facility] Phone: Start: 01-30-2013 End: 03-20-2013 Lipid panel [AGGREGATE] *Lipid Profile [facility] Phone: Start: 01-30-2013 End: 03-20-2013 Thyroid stimulating hormone (TSH) *TSH [facility] Work Phone: Start: 01-30-2013 End: 08-17-2012 Thyroxine (T4) *T4 (Total) [facility] Phone: Start: 01-30-2013 End: 03-20-2013 Hepatic function 2000 panel - Serum or Plasma *Hepatic Function Panel [facility] Phone: Start: 01-30-2013 End: 03-20-2013 Lipid 1996 panel - Serum or Plasma *Lipid Profile [facility] Phone: Start: 01-30-2013 End: 03-20-2013 Thyrotropin [Units/volume] in Serum or Plasma *TSH [facility] Phone: Start: 01-30-2013 End: 08-17-2012 Thyroxine (T4) [Mass/volume] in Serum or Plasma *T4 (Total) [facility] Work Phone: Start: 10-01-2012 End: 03-20-2013 *Hepatic Function Panel *Hepatic Function Panel [facility] Phone: Start: 10-01-2012 End: 03-20-2013 Lipid panel [AGGREGATE] *Lipid Profile [facility] Phone: Start: 10-01-2012 End: 03-20-2013 Hepatic function 2000 panel - Serum or Plasma *Hepatic Function Panel [facility] Work Phone: Start: 10-01-2012 End: 03-20-2013 Lipid 1996 panel - Serum or Plasma *Lipid Profile [facility] Work Phone: Start: 08-10-2012 End: 08-17-2012 *BMP *BMP [facility] Work Phone: Start: 08-10-2012 End: 03-20-2013 *CBC with Differential *CBC with Differential [facility] Work Phone: Start: 08-10-2012 End: 08-10-2012 Ecg routine ecg w/least 12 lds w/i&r EKG (In office) [facility] Work Phone: Start: 08-10-2012 End: 08-10-2012 Follow Up Appt 6 months Follow Up Appt 6 months [facility] Work Phone: Start: 08-10-2012 End: 08-17-2012 Magnesium *Magnesium [facility] Work Phone: Start: 08-10-2012 End: 08-17-2012 Thyroid stimulating hormone (TSH) *TSH [facility] Work Phone: Start: 08-10-2012 End: 08-17-2012 Thyroxine (T4) *T4 (Total) [facility] Work Phone: Start: 08-10-2012 End: 08-17-2012 Basic metabolic 2000 panel - Serum or Plasma *BMP [facility] Work Phone: Start: 08-10-2012 End: 03-20-2013 CBC W Auto Differential panel - Blood *CBC with Differential [facility] Work Phone: Start: 08-10-2012 End: 08-10-2012 Ecg routine ecg w/least 12 lds w/i&r EKG (In office) [facility] Work Phone: Start: 08-10-2012 End: 08-10-2012 Follow Up Appt 6 months Follow Up Appt 6 months [facility] Work Phone: Start: 08-10-2012 End: 08-17-2012 Magnesium [Mass/volume] in Serum or Plasma *Magnesium [facility] Work Phone: Start: 08-10-2012 End: 08-17-2012 Thyrotropin [Units/volume] in Serum or Plasma *TSH [facility] Phone: Start: 08-10-2012 End: 08-17-2012 Thyroxine (T4) [Mass/volume] in Serum or Plasma *T4 (Total) [facility] Phone: Start: 05-02-2012 End: 05-02-2012 *Hepatic Function Panel *Hepatic Function Panel [facility] Phone: Start: 05-02-2012 End: 05-02-2012 Ecg routine ecg w/least 12 lds w/i&r EKG (In office) [facility] Work Phone: Start: 05-02-2012 End: 05-02-2012 Echocardiography Echocardiogram (complete) [facility] Phone: Start: 05-02-2012 End: 05-02-2012 Follow Up Appt 6 months Follow Up Appt 6 months [facility] Phone: Start: 05-02-2012 End: 05-02-2012 Lipid panel [AGGREGATE] *Lipid Profile [facility] Phone: Start: 05-02-2012 End: 05-02-2012 Nuclear stress test -adenosine Nuclear stress test -adenosine [facility] Work Phone: Start: 05-02-2012 End: 05-02-2012 Ecg routine ecg w/least 12 lds w/i&r EKG (In office) [facility] Phone: Start: 05-02-2012 End: 05-02-2012 Echocardiography Echocardiogram (complete) [facility] Phone: Start: 05-02-2012 End: 05-02-2012 Follow Up Appt 6 months Follow Up Appt 6 months [facility] Phone: Start: 05-02-2012 End: 05-02-2012 Hepatic function 2000 panel - Serum or Plasma *Hepatic Function Panel [facility] Phone: Start: 05-02-2012 End: 05-02-2012 Lipid 1996 panel - Serum or Plasma *Lipid Profile [facility] Work Phone: Start: 05-02-2012 End: 05-02-2012 Nuclear stress test -adenosine Nuclear [facility] -adenosine [facility] Work [facility]: Start: 01-06-2011 RSV High Risk: (Elderly (60+) or Population) (1 - 1-dose 75+ series) RSV High Risk: (Elderly (60+) or Population) (1 - 1-dose 75+ series) [employer] [facility] Start: 08-31-2009 Pneumococcal vaccination Pneumococcal Vaccine (2 of 2 - PCV) [facility] Start: 08-31-2009 Pneumococcal Vaccine: 65+ Years (2 of 2 - PCV) Pneumococcal Vaccine: 65+ Years (2 of 2 - PCV) [facility] Start: 01-06-2001 ADVANCE DIRECTIVE DISCUSSION ADVANCE DIRECTIVE DISCUSSION [facility] Start: 1996 RSV patients and/or patients aged 60+ years (1 - 1-dose 60+ series) RSV patients and/or patients aged 60+ years (1 - 1-dose 60+ series) [facility] Start: 01-06-1986 SHINGRIX VACCINE (1 of 2) SHINGRIX VACCINE (1 of 2) [facility] Start: 01-06-1986 Zoster Vaccines (1 of 2) Zoster Vaccines (1 of 2) [facility] Start: 01-06-1955 Urine microalbumin profile DTAP,TDAP,TD (1 - Tdap) [facility] Start: 01-06-1954 Diabetes mellitus screening Diabetes Screening [facility] Start: 1936 Annual wellness visit Welcome to Medicare Visit [facility] Start: 1936 Echocardiography Echocardiogram [facility] Start: 1936 Lipid panel Lipid Panel [facility] Start: 1936 Medicare Annual Wellness Visit Medicare Annual Wellness Visit (AWV) [facility] Basic metabolic 2008 panel with ionized calcium - Serum or Plasma [facility] End: 07-25-2024 Continuous Pulse oximetry, In Phase 1 Continuous Pulse oximetry, In Phase 1 Respiratory Care Routine Continuous until discontinued starting 07/25/2024 [facility] Service Area Work Phone: Comment on above: Continuous until discontinued starting 0 07/25/2024 End: 07-10-2024 CT Abdomen and Pelvis W contrast IV [facility] Work Phone: Comment on above: Once for 1 Occurrences starting 07/10/20 24 until 07/10/2024 Cystostomy cystotomy w/drainage Cystotomy Suprapubic Urinary retention Virtual DARRELL OR Electrocardiographic procedure [facility] Patient Education [facility] [employer] Work Phone: Patient referral [facility] Work Phone: Surgical pathology study Surgica l Pathology Exam Pathology and Cytology Routine Elevated PSA 06/14/2024 12:[address] [facility] Work Phone: Urine culture [facility] Immunizations Immunization Date Immunization Notes Care Provider [facility] 09-05-2023 Influenza High-Dose Quadrivalent Dr. John Mckeon Work Phone: [facility] 09-05-2023 influenza virus vacc ine, unspecified formulation Asmita Zambrano MD Work Phone: [facility] Work Phone: 07-31-2020 influenza, injectabl e, quadrivalent, preservative free Dr. John Mckeon Work Phone: [facility] 07-31-2020 influenza, seasonal, injectable [facility] 07-31-2020 Fluad Quad (65yr up)(PF) 60 mcg (15 mcg x 4)/0.5mL IM syringe (flu vac [facility] Work Phone: 01-26-2020 tetanus toxoid, redu blanche diphtheria toxoid, and acellular pertussis vaccine, adsorbed [facility] 08-17-2018 Influenza virus vaccine [facility] 08-17-2018 Fluad 2017- 65yr up(PF)45 mcg(15 mcgx3)/0.5 mL intramuscular syringe (flu vac [facility] Work Phone: 11-05-2015 tetanus and diphther ia toxoids, adsorbed, preservative free, for adult use (2 Lf of tetanus toxoid and 2 Lf of diphtheria toxoid) [facility] 08-31-2008 influenza virus vacc ine, unspecified formulation Marino Roque Work Phone: [facility] 08-31-2008 pneumococcal polysaccharide vaccine, 23 valent Marino Roque Work Phone: [facility] Payers Date Payer Category Payer Self-pay [id number] 2023 Medicare [employer] [facility] MEDICARE [id number] 2023-Present [address] JANINE Gonzalez [id number] 2023 Medicare (Managed Care) [facility] [id number] 2023 Medicare [id number] 2014 Unknown [id number] 1936 Unknown [id number] 2.16.840.1.886002.3.579.2.1 243 1936 Unknown [id number] 2.16.840.1.800828.3.579.2.1 243 1936 Unknown [id number] 2.16.840.1.143941.3.579.2.1 244 193 Unknown [id number] 2.16.840.1.380961.3.579.2.1 244 1936 Unknown [id number] 2.16.840.1.796407.3.579.2.1 244 1936 Unknown [id number] 2.16.840.1.138471.3.579.2.1 244 1936 Unknown [id number] 2.16.840.1.250840.3.579.2.1 244 1936 Unknown [id number] 2.16.840.1.447782.3.579.2.1 244 1936 Unknown [id number] 2.16.840.1.320010.3.579.2.1 244 1936 Unknown [id number] 2.16840.1.556466.3.579.2.1 244 1936 Unknown [id number] 2.16.840.1.956744.3.579.2.1 244 1936 Unknown [id number] 2.16.840.1.678219.3.579.2.1 244 1936 Unknown [id number] 2.16.840.1.107545.3.579.2.1 244 1936 Unknown [id number] 2.16.840.1.321039.3.579.2.1 244 1936 Unknown [id number] 2.16.840.1.805735.3.579.2.1 244 1936 Unknown [id number] 2.16.840.1.709189.3.579.2.1 244 Unknown [id number] 2.16.840.1.213197.3.579.2.4 62 Unknown [id number] 2.16.840.1.770883.3.579.2.4 62 Unknown [id number] 2.16.840.1.717332.3.579.2.4 62 Unknown [id number] 2.16.840.1.902701.3.579.2.4 62 Unknown [id number] 2.16.840.1.301123.3.579.2.4 62 Unknown [id number] 2.16.840.1.133196.3.579.2.4 62 Unknown [id number] 2.16.840.1.643099.3.579.2.4 62 Unknown [id number] 2.16.840.1.061535.3.579.2.4 62 Unknown [id number] 2.16.840.1.120980.3.579.2.4 62 Unknown [id number] 2.16.840.1.254027.3.579.2.4 62 Unknown [id number] 2.16.840.1.235462.3.579.2.4 62 Unknown [id number] 2.16.840.1.851439.3.579.2.4 62 Unknown [id number] 2.16.840.1.824026.3.579.2.4 62 Unknown [id number] 2.16.840.1.391140.3.579.2.4 62 Unknown [id number] 2.16.840.1.767870.3.579.2.4 62 Unknown [id number] 2.16.840.1.752013.3.579.2.4 62 Social History Date Type Detail Facility Start: 06-12-2010 End: 04-27-2025 Tobacco smoking status NMIS Never smoker [facility] Start: 06-12-2010 Alcohol intake 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 Start: 10-01-2019 [address] Family [facility] Start: 12-29-2018 Non-smoker [facility] Start: 1935 Sex Assigned At Male [facility] Start: 04-26-2024 Tobacco use and exposure Smokeless tobacco non-user [facility] Work Phone: Start: 04-26-2024 End: 02-26-2025 History of Social function [facility] Work Phone: Start: 04-26-2024 End: 02-26-2025 Tobacco use panel [facility] Work Phone: Start: 04-16-2024 End: 04-09-2025 Exposure to SARS-CoV-2 (event) Not sure [facility] Start: 07-25-2024 End: 04-24-2025 Alcoholic beverage intake Ex-drinker (finding) [facility] Work Phone: Start: 02-09-2025 Sex Male (finding) [facility] Medical Equipment Procedure Code Equipment Code Equipment Original Text Equipment Identifier Dates Laser Equipment (Contracted) - [id number] Start: 02-01-2014 Comment on above: Description: SENDY WHITFIELD LASER Goals Date Patient Goal Desired Activity /State Functional Status Date Assessment Result Facility 10-22-2023 Functional status Bedrest;Bathroom Privil ege [facility] Work Phone: 09-06-2023 Functional status Ambulates;Chair [facility] Work Phone: 09-05-2023 Functional status Ambulates [facility] Work Phone: Mental Status Date Assessment Result Facility 12-16-2024 Cognitive function Level Of Cons ciousness Awake;Alert;Appropriate [facility] Work Phone: 10-21-2023 Cognitive function Voice/Name [facility] Work Phone: 09-06-2023 Cognitive function Appropriate;Cooperativ e [facility] Work Phone: 10-21-2022 Cognitive function Voice/Name [facility] Work Phone: Clinical Notes 04-12-2017 to 04-27-2025 Note Date & Type Note Facility 04-27-2025 Discharge summary [facility] 04-27-2025 Discharge summary Note Date/Time April 27, 2025 10:41pm [facility] Medical Records Department [address] [place] [address] Emergency Department Summary 04/27/25 MR#: [id number] Acct: [id number] Name: RAJAT GUZMÁN Rep #:[id number] : 1935 89 From: Timoteo Mckenna DO [...] catheter. He denies feversor chills or sweats. [facility] Medical History (Reviewed 03/12/25 @ 16:11 by Cynthia Bowen HUMAN RESOURCES PROFESSIONAL, HUMAN RESOURCES PROFESSIONAL-C) Non-smoker History of heart attack Presence of [...] Chest pain, precordial Atherosclerotic heart disease of [place] coronary artery without angina pectoris Dyspnea Fatigue [...] General weakness Iron deficiency anemia Surgical History (Reviewed 03/12/25 @ 16:11 by Cynthia Bowen HUMAN RESOURCES PROFESSIONAL, HUMAN RESOURCES PROFESSIONAL-C) H/O dilation of urethra Hx of transurethral resection of prostate Presence of coronary artery bypass graft stent (~12/28/18) History of cardiac catheterization Hx of colonoscopy Hx of surgical procedure History of hernia repair History of prostate surgery History of left heart catheterization Social History (Reviewed 03/12/25 @ 16:11 by Cynthia Bowen HUMAN RESOURCES PROFESSIONAL, HUMAN RESOURCES PROFESSIONAL-C) household members: spouse Smoking Status: Never smoker [...] (Auto) 71.1 H Lymph % (Auto) 19.6 Carter % (Auto) 7.4 Eos % (Auto) 1.0 [...] Sl. Cloudy Urine pH 6.0 Ur Specific Benicia 1.015 Urine Protein 30 H Urine Glucose [...] Care Provider] - 3-5 Days Print Language: Lithuanian Disposition Disposition: Home, Self Care What to do if you have Problems For any increased pain, shortness of breath, bleeding, nausea or vomiting, chestpain, or any unexpected problems, contact your Primary Care Provider. Call [facility] ([phone]) or report to the closest Emergency Room. Call 911 if necessary. 04/27/252240 <Electronically signed by Timoteo Mckenna DO> Cosigner Signature (if applicable): CC: Dr. John Mckeon DO ~ Signed [facility] Work Phone: 1([phone]) 730-891806-24-2025 Evaluation + Plan note* Assessment & Plan Note - CORTEZ Hutchinson - 04/24/2025 3:04 PM EDTAssociated Problem(s): Urinary retention Stable. SP cath intact draining clear yellow urine. Plan for catheter change in May 2025. Encouraged fluids. [facility] Work Phone: 1(686) 797-432606-24-2025 Evaluation + Plan note* Assessment & Plan Note - CORTEZ Hutchinson - 04/24/2025 3:04 PM EDTAssociated Problem(s): Bladder spasm Stable. Continue oxybutynin. Encourage fluids. [facility] Work Phone: 1(737) 456-825906-24-2025 Miscellaneous Notes* Assessment & Plan Note - [...] office in 6 months. documented in [facility] Work Phone: 1(482) 690-619806-24-2025 Evaluation + Plan note* Assessment & Plan [...] and follow-up in office in 6 months. [facility] Work Phone: 1([phone]) 820-771706-24-2025 History of Present illness Narrative* CORTEZ Hutchinson - 04/24/2025 1:30 PM EDT Images from the original note were not included. [facility] Note Subjective Patient ID: Rajat Guzmán is a 89 y.o. male who presents for No chief complaint on file.. History of Present Illness Rajat is a 89 y.o. male who presents for follow-up for history of prostate cancer and urinary retention. Patient diagnosed with prostate cancer on 06/14/2024, [place] 9 on the right and 9 on [...] No pertinent surgical history. 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 A 16 Zambian Rod was placed, with urine return into catheter tubing, the 10cc balloon was then inflated and checked for position. The catheter was then irrigated with a mixture of Betadine 5 ml andSaline 500 ml. A leg bag was then attached. FOLLOW UP ROD CHANGE IN 6 WEEKS Cosigned by Jian Jiménez MD MPH at 02/27/2025 4:24 PM EDT documented in this [facility] Work Phone: 1(679) 798-667003-05-2025 History of Present illness Narrative* Waleska Galdamez [...] was instilled into the urethra. A 16 Zambian Rod was placed with a 10cc balloon which was inflated. This was then irrigated with a mixture of Betadine 5 ml and Saline 500 ml. A plug was then attached. SIZE 16FR ROD PLACED FOLLOW UP ROD CHANGE IN 6 WEEKS documented in this [facility] Work Phone: 1(129) 714-813902-12-2025 History of Present illness Narrative* Waleska Galdamez [...] SIZE 16FR ROD PLACED [facility] Work Phone: 1(875) 684-975702-05-2025 History of Present illness Narrative* Liz Garcia [...] was changed and irrigated. 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 November 10 10:54am Dyslipidemia chronic November 10:54am Essential hypertension chronic [facility]2024 10:54am Presence of stent in coronary artery December, chronic November 10 10:54am [facility] Work Phone: 1([phone]) 123-560312-18-2024 History of Present illness Narrative* Waleska Galdamez [...] CHANGE IN 6 WEEKS documented in this encounterUniversity [facility] Work Phone: 1(593) 288-989209-24-2024 Hospital Discharge instructions* Discharge Instructions* Char Zhu RN - 07/25/2024 12:33 PM EDT DO NOT plug catheter until you have seen Dr Zambrano for follow up visit and they have made first catheter change. * Attachments The following attachments cannot be sent through Care Everywhere. * How to Care for Your Suprapubic Urinary Catheter (Lithuanian) documented in this encounterUniversity [facility] Work Phone: [phone]) [phone] Attending History and physical note* Asmita Zambrano [...] Encouraged fluid intake. F/U SP tube placement [facility] Work Phone: 1([phone]) 796-892109-24-2024 History and physical note* Asmita Zambrano MD [...] F/U SP tube placement [facility] Work Phone: 1([phone]) 118-860309-23-2024 Note* Preprocedure Instructions - Inga Ceron RN - 07/24/2024 1:24 PM EDT No outpatient medications have been marked as taking for the 07/25/24 encounter (Hospital Encounter). NPO Instructions: Nothing to eat or drink after midnight Additional Instructions: Will need bull driver home [facility]09-23-2024 Miscellaneous Notes* Preprocedure Instructions - Inga Ceron RN - 07/24/2024 1:24 PM EDT No outpatient medications have been marked as taking for the 07/25/24 encounter (Hospital Encounter). NPO Instructions: Nothing to eat or drink after midnight Additional Instructions: Will need bull driver home documented in this encounterUniversity [facility] Work Phone: 1([phone]) 817-175209-11-2024 History of Present illness Narrative* Asmita Zambrano MD - 07/12/2024 3:30 PM EDT Subjective Patient ID: Rajat Guzmán is a 89 y.o. male. HPI Patient is here for CT results and Lupron injection. Recent sx of prostate cancer. [place] 9. CT showed No evidence of METS [...] F/U SP tube placement documented in this encounterUniversity [facility] Work Phone: 1([phone]) 620-589208-28-2024 History of Present illness Narrative* Asmita Zambrano [...] Encouraged fluid intake. F/U documented in this encounterUniversity [facility] Work Phone: [phone] 266-129408-14-2024 History of Present illness Narrative* Waleska Galdamez [...] 19.90 (05/17/2024) ABNORMAL LANDON. documented in this encounterUniversity [facility] Work Phone: 1([phone] History of Present illness Narrative* Waleska Galdamez [...] CHECK PVR AND DISCUSS. documented in this [facility] Work Phone: 1([phone]) 441-810906-26-2024 History of Present illness Narrative* Asmita Zambrano MD - 04/26/2024 1:45 PM EDT Subjective Patient ID: Rajat Guzmán is a 89 y.o. male. HPI Patient is here to establish for second opinion for BPH. Hx of incomplete emptying. He was seeing [facility] prior. He states he was asked to learn CIC but he does not want to do this. He does not want permanent rod either. . Rod was placed 6 weeks ago and still has this today. . Hx of TURP last year at [place]. This did not help urinary sx. He [...] day to check PVR documented in this [facility] Work Phone: 1([phone]) 216-763012-21-2023 Progress note Author Faisal Barth [facility] October 21, 2023 7:23am Note Date/Time October 21, 2023 7:23am [facility] Medical Records Department [address] [place] [address] Progress Note - Urology 10/21/23722 MR#: [id number] Acct: [id number] Name: RAJAT GUZMÁN Rep #:[id number] : 1935 88 From: Faisal Barth MD PCP: Dr. John Mckeon, DO Status:[facility]M [facility] Location: [place] [address] Subjective Subjective Status post TURP for regrowth [...] Cosigner Signature (if applicable): CC: ~ Signed [facility] Work Phone: [phone] 324-120612-20-2023 Discharge summary Author Faisal Barht [facility] October 20, 2023 1:07pm Note Date/Time October 20, 2023 1:07pm [facility] Medical Records Department [address] [place] [address] Instructions for Home/Discharge Instructions 10/20/23 1307 MR#: [id number] Acct: [id number] Name: RAJAT GUZMÁN Rep #:[id number] : 1935 88 From: Faisal Barth MD PCP: Dr. John Mckeon, DO Status:[facility] Discharge Instructions Diet Discharge Diet: No restrictions Activity Discharge Activity: Return to Normal Activity and May Not Drive (while taking narcotic pain medications.) Dressing / Incision Call your doctor if you observe: Fever of 101 or Higher Follow Up Care Please Follow Up With: Faisal Barth MD When: Call [phone] for an appointment Test Results: Test results [...] MD CC: Dr. John Mckeon, ~ Signed [facility] Work Phone: 1(873) 959-939112-20-2023 History and physical note Author Faisal Barth [facility] October 20, 2023 1:07pm Note Date/Time October 20, 2023 1:07pm [facility] Medical Records Department [address] [place] [address] History & Physical Exam 10/20/23 1306 MR#: [id number] Acct: [id number] Name: RAJAT GUZMÁN Rep #:[id number] : 1935 88 From: Faisal Barth MD PCP: Dr. John Mckeon DO Status:[facility] Location: [place] [address] HPI - General General Date of Service: 10/20/23 Chief Complaint: BPH with obstruction HPI Narrative RJAAT GUZMÁN, is a 88 M who presents for a transurethral resection of prostate [facility] Medical History (Updated 10/11/23 @ 14:18 by Suzie Wiseman) Abnormal result of cardiovascular function study, unspecified Angina pectoris Atherosclerotic heart disease of [place] coronary artery without angina pectoris Benign prostatic [...] Barth MD; Dr. John Mckeon DO~ Signed [facility] Work Phone: 1([phone]) [phone] Procedure [facility] 10-12-2023 Hospital Discharge instructionsAmbulatory Orders* 12 Lead EKG [[facility]] Time Frame: 10/12/23, Location: None Selected [facility] Work Phone: 1([phone]) 951-415411-06-2023 Discharge summary Author Manisha Varela [facility] September 06, 2023 3:13pm Note Date/Time September 06, 2023 3 :07pm [facility] Medical Records Department [address] [place] [address] Instructions for Home/Discharge Instructions 09/06/23 1504 MR#: [id number] Acct: [id number] Name: RAJAT GUZMÁN Rep #:[id number] : 1935 88 From: Manisha Varela MD PCP: Dr. John Mckeon, DO Status:[facility] Discharge Instructions Diet [...] MD; Dr. Manisha Varela MD ~ Signed [facility] Work Phone: 1([phone]) 338-525211-05-2023 Progress note Author Natanael Nowak [facility] September 05, 2023 9:01am Note Date/Time September 05, 2023 9 :01am [facility] Medical Records Department [address] [place] [address] Progress Note - Hospitalist 09/05/23 0900 MR#: [id number] Acct: [id number] Name: RAJAT GUZMÁN Stacia Rep #:[id number] : 1935 88 From: Natanael martinez MD PCP: Dr. John Mckeon DO Status:[facility] Location: [place] [address] Subjective Subjective Doing well, feels better today. [...] Sl. Cloudy, Urine pH 6.0, Ur Specific Benicia 1.020, Urine Protein 15 H, Urine Glucose [...] 77.7 H, Lymph % (Auto) 11.1 L, Carter % (Auto) 10.2 H, Eos % (Auto) [...] % (Auto) 64.8, Lymph % (Auto) 21.3, Carter % (Auto) 11.3 H, Eos % (Auto) [...] Reading Location ID and State: [id number] / [employer] , Service support , Chest X-Ray 09/04/23 16:52 IMPRESSION: No active disease. Electronically Signed: Leroy Barrett MD at 17:27 EDT Reading Location ID and State: [id number] / [employer] , Service support , Physical Exam [...] kidney injury): (2) Atherosclerotic heart disease of [place] coronary artery without angina pectoris: QUALIFIERS: [place] vs. transplanted heart: [place] heart QualifiedCode(s): I25.10 - Atherosclerotic heart disease of [place] coronary artery without angina pectoris; I25.10 - Atherosclerotic heart disease of [place] coronary artery without angina pectoris; I25.10 - Atherosclerotic heart disease of [place] coronary artery without angina pectoris (3) Cardiomyopathy, [...] DVT: Heparin Charges/Coding Visit Charges Inpatient E&M: 77518 Subs Hosp L2 09/05/23 0901 <Electronically signed by Natanael Nowak MD> Cosigner Signature (if applicable): CC: ~ Signed [facility] Work Phone: 1(144) 674-282311-04-2023 History and physical note Author Manisha Varela [facility] September 04, 2023 6:33pm Note Date/Time September 04, 2023 6 :23pm [facility] Medical Records Department [address] [place] [address] H&P Exam - Hospitalist 09/04/23 1820 MR#: [id number] Acct: [id number] Name: RAJAT GUZMÁN Rep #:[id number] : 1935 88 From: Manisha Varela MD PCP: Dr. John Mckeon, DO Status:ADM [facility] [place] 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 Hehad a procedure [...] home, denies other complaints at this time. [facility] Medical History (Updated 09/04/23 @ 18:[address] Manisha Varela MD) Abnormal result of cardiovascular function study, unspecified Angina pectoris Atherosclerotic heart disease of [place] coronary artery without angina pectoris Benign prostatic [...] Sl. Cloudy, Urine pH 6.0, Ur Specific [place] 1.020, Urine Protein 15 H, Urine Glucose [...] 77.7 H, Lymph % (Auto) 11.1 L, Carter % (Auto) 10.2 H, Eos % (Auto) [...] 17:36 EDT Reading Location ID and State: [id number] / [employer] , Service support , Chest X-Ray 09/04/23 16:52 IMPRESSION: No active disease. Electronically Signed: Leroy Barrett MD at 17:27 EDT Reading Location ID and State: [id number] / [employer] , Service support , Assessment & Plan Assessment/Plan (1) SINGH (acute kidney injury): (2) Atherosclerotic heart disease of [place] coronary artery without angina pectoris: QUALIFIERS: [place] vs. transplanted heart: [place] heart QualifiedCode(s): I25.10 - Atherosclerotic heart disease of [place] coronary artery without angina pectoris; I25.10 - Atherosclerotic heart disease of [place] coronary artery without angina pectoris; I25.10 - Atherosclerotic heart disease of [place] coronary artery without angina pectoris (3) Cardiomyopathy, [...] Varela MD Charges/Coding Visit Charges Inpatient E&M: 51683 Init Hosp L2 09/04/23 1833 <Electronically signed by Manisha Varela MD> Cosigner Signature (if applicable): CC: Dr. John Mckeon, DO; Dr. Manisha Varela MD~ Signed [facility] Work Phone: 1(478) 827-932311-04-2023 Discharge summary Author Murray Morgan [facility] September 04, 2023 6:24pm Note Date/Time September 04, 2023 3 :45pm [facility] Medical Records Department [address] [place] [address] Emergency Department Summary 09/04/23 MR#: [id number] Acct: [id number] Name: RAJAT GUZMÁN Rep #:[id number] : 1935 88 From: Murray Morgan MD PCP: Dr. John Mckeon, DO Status:ADM WESTLEY Location: NV3 [id number] HPI <MORTEZA Staton - Last Filed: 09/04/23 18:05> History of Present Illness Chief Complaint: Complaint Narrative Narrative: Patient is a 88-year-old male with history of [place], CAD, cardiomyopathy who presents to the emergency [...] well however denies any fever or chills. 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 Cloudy Urine pH 6.0 Ur Specific [place] 1.020 Urine Protein 15 H Urine Glucose [...] 17:36 EDT Reading Location ID and State: [employer] / [employer] , Service support , Chest X-Ray 09/04/23 16:52 IMPRESSION: No active disease. Electronically Signed: Leroy Barrett MD at 17:27 EDT Reading Location ID and State: 1407 / [employer] , Service support , Treatment and [...] Morgan MD - Last Filed: 09/04/23 18:24> [facility] MDM Narrative Medical decision making narrative: [...] 77.7 H Lymph % (Auto) 11.1 L Carter % (Auto) 10.2 H Eos % (Auto) [...] Sl. Cloudy Urine pH 6.0 Ur Specific [place] 1.020 Urine Protein 15 H Urine Glucose [...] 17:36 EDT Reading Location ID and State: [id number] / [employer] , Service support , Chest X-Ray 09/04/23 16:52 IMPRESSION: No active disease. Electronically Signed: Leroy Barrett MD at 17:27 EDT , Management Discussion w/another healthcare provider: Hospitalist and Graphic Technician (Dr. Barth) Discharge Plan Triage Chief Complaint: [...] your Primary Care Provider. Call [facility] ([phone]) or report to the closest Emergency Room. Call 911 if necessary. 09/04/23 182 <Electronically signed by Murray Morgan MD> Cosigner Signature (if applicable): 09/04/23 180 <Electronically signed by Robbi PRO> CC: Dr. John Mckeon, ~ Signed [facility] Work Phone: 1(348) 408-250811-04-2023 Discharge summary Author Murray Morgan [facility] September 04, 2023 6:24pm Note Date/Time September 04, 2023 3 :45pm [facility] Medical Records Department [address] [place] [address] Emergency Department Summary 09/04/23 MR#: [id number] Acct: [id number] Name: RAJAT GUZMÁN Rep #:[id number] : 1935 88 From: Murray Morgan MD PCP: Dr. John Mckeon, Status:ADM WESTLEY Location: [facility] XP549-9 HPI <MORTEZA Sttaon - Last Filed: 09/04/23 18:05> History of Present Illness Chief Complaint: Complaint Narrative Narrative: Patient is a 88-year-old male with history of [place], CAD, cardiomyopathy who presents to the emergency [...] well however denies any fever or chills. 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 Cloudy Urine pH 6.0 Ur Specific [place] 1.020 Urine Protein 15 H Urine Glucose [...] 77.7 H Lymph % (Auto) 11.1 L Carter % (Auto) 10.2 H Eos % (Auto) [...] Sl. Cloudy Urine pH 6.0 Ur Specific [place] 1.020 Urine Protein 15 H Urine Glucose [...] 17:36 EDT Reading Location ID and State: [id number] / [employer] , Service support , Chest X-Ray 09/04/23 16:52 IMPRESSION: No active disease. Electronically Signed: Leroy Barrett MD at 17:27 EDT Reading Location ID and State: 1407 / [employer] , Service support , Management Discussion w/another healthcare provider: Hospitalist and Graphic Technician (Dr. Barth) Discharge Plan Triage Chief Complaint: [...] problems, contact your Primary Care Provider. Call [employer] [facility] ([phone]) or report to the closest Emergency Room. Call 911 if necessary. 09/04/23 9237 <Electronically signed by Murray Morgan MD> Cosigner Signature (if applicable): 09/04/23 180 <Electronically signed by Robbi PRO> CC: Dr. John Mckeon, DO ~ Signed [facility] Work Phone: 1(885) 300-312902-26-[address] Morgan [facility] December 27, 2022 11:52pm Note Date/Time December 27, 2022 9:33pm [facility] Medical Records Department [address] [place] [address] Emergency Department Summary 12/27/22 MR#: [id number] Acct: [id number] Name: RAJAT GUZMÁN Rep #:[id number] : 1935 87 From: Murray Morgan MD [...] facetectomy with a mass over the vasectomysite. [facility] Medical History Abnormal result of cardiovascular function study, unspecified Angina pectoris Atherosclerotic heart disease of [place] coronary artery without angina pectoris Cancer Cardiology [...] (Auto) 69.5 Lymph % (Auto) 16.0 L Carter % (Auto) 12.6 H Eos % (Auto) [...] Sl. Cloudy Urine pH 7.0 Ur Specific Benicia 1.010 Urine Protein 15 H Urine Glucose [...] Referrals: John Mckeon DO [Med Staff - [employer] Field Technician] - 2 Days Shailesh Mancini MD [Primary [...] your Primary Care Provider. Call [facility] ([phone]) or report to the closest Emergency Room. Call 911 if necessary. 12/27/22 2352 <Electronically signed by Murray Morgan MD> Cosigner Signature (if applicable): CC: Dr. John Mckeon DO; Dr. Shailesh Mancini MD ~ Signed [facility] Work Phone: 1(991) 686-235002-26-2023 Hospital Discharge instructions Additional Instructions Follow-up with Dr. Mckeon in the next 2 to 3 days. Return to the emergency department with fever, increased pain, new or worsening symptoms.[facility] Work Phone: 1(693) 295-389106-12-2017 Fall risk ppbvgebyes2307/06/12[facility] risk assessmentWmclaren [facility] Work Phone: Discharge summary Author Manisha Varela [facility] September 06, 2023 3:14pm Note Date/Time September 06, 2023 3 :14pm [facility] Medical Records Department [address] [place] [address] Discharge Summary 09/06/23 1513 MR#: [id number] Acct: [id number] Name: RAJAT GUZMÁN Rep #:[id number] : 1935 88 From: Manisha Varela MD PCP: Dr. John Mckeon DO Status:ADM [facility]STLEY [facility] Prov[facility] Date of Admission: 09/04/23 Date of Discharge: 09/06/23 Primary Care Physician: Dr. John Mckeon DO Reason For Visit: UTI, SINGH, GENERAL WEAKNESS Diagnosis Discharge Diagnosis (1) SINGH (acute kidney injury): Status: Acute Code(s): N17.9 - Acute kidney failure, unspecified (2) Atherosclerotic heart disease of [place] coronary artery without angina pectoris: Status: Chronic Code(s): I25.10 - Atherosclerotic heart disease of [place] coronary artery without angina pectoris Qualifiers: [place] vs. transplanted heart: [place] heart Qualified Code(s): I25.10 -Atherosclerotic heart disease of [place] coronary artery without angina pectoris;I25.10 - Atherosclerotic heart disease of [place] coronary artery without angina pectoris; I25.10 - Atherosclerotic heart disease of [place] coronary artery without angina pectoris (3) Cardiomyopathy, [...] mg chewable tablet 81 mg PO DAILY [facility] 03/05/16 nitroglycerin 0.4 mg sublingual tablet [...] with dual AICD, BPH, hypertension presented to [facility] 09/04/2023 with generalized weakness. Hehad a procedure [...] Self Care Charges/Coding Visit Charges Inpatient E&M: 32939 Disch Hosp >30min 09/06/23 1514 <Electronically signed by Manisha Varela MD> Cosigner Signature (if applicable): CC: Dr. John Mckeon DO; Dr. Manisha Varela MD~ Signed [facility] Work Phone: Evaluation note* Diagnosis Onset Date Resolution Status Cardiomyopathy, ischemic chr onic Chronic systolic congestive heart failure chronic Dual ICD (implantable 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 History of placement of internal cardiac defibrillator [facility] Work Phone: Evaluation note* Diagnosis Onset Date Resolution Status Cardiomyopathy, ischemic chr onic Chronic systolic congestive heart failure chronic Dual ICD (implantable 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 History of placement of inte rnal cardiac defibrillator chronic Atherosclerotic heart diseas e of [place] coronary artery without angina pectoris chronic Cardiomyopathy, ischemic chr onic Dyspnea chronic Essential hypertension chron ic History of placement of inte rnal cardiac defibrillator chronic Pure hypercholesterolemia [facility] Stented coronary artery December, [facility] Work Phone: Evaluation note* Diagnosis Onset Date Resolution Status Atherosclerotic heart diseas e of [place] coronary artery without angina pectoris chronic Cardiomyopathy, ischemic chr onic Dyspnea chronic Essential hypertension chron ic History of placement of inte rnal cardiac defibrillator chronic Pure hypercholesterolemia [facility] Stented coronary artery December, [facility] Cardiomyopathy, ischemic chr onic Chronic systolic congestive heart failure chronic Dual ICD (implantable 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 History of placement of inte rnal cardiac defibrillator [facility] Work Phone: Evaluation note* Diagnosis Onset Date Resolution Status Cardiomyopathy, ischemic chr onic Chronic systolic congestive heart failure chronic Dual ICD (implantable 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 Atherosclerotic heart diseas e of [place] coronary artery without angina pectoris chronic Cardiomyopathy, ischemic chr onic Essential hypertension chron ic History of placement of inte rnal cardiac defibrillator chronic Pure hypercholesterolemia [facility]: [facility]* Diagnosis Onset Date Resolution Status Dual ICD (implantable 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 History of placement of internal cardiac defibrillator chronic [facility] Work Phone: Evaluation note* Diagnosis Onset Date Resolution Status Cardiomyopathy, ischemic chr onic Chronic systolic congestive heart failure chronic Dual ICD (implantable 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 Cardiomyopathy, ischemic chr onic Chronic systolic congestive heart failure chronic Coronary artery disease rn chronic elizabeth Dual ICD (implantable 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 Dyslipidemia chronic Essential hypertension chron ic Presence of stent in coronary artery December, chronic [facility] Work Phone: Evaluation noteNo assessment information available [facility] Work Phone: Evaluation note* Diagnosis Onset Date Resolution Status Acute dehydration acute Acute metabolic encephalopathy acute SINGH (acute kidney injury) ac moy Episode of generalized weakness acute Urinary retention acute UTI (urinary tract infection) acute Atherosclerotic heart diseas e of [place] coronary artery without angina pectoris chronic Cardiomyopathy, 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 [facility] Work Phone: Evaluation note* Diagnosis Onset Date Resolution Status Urinary retention acute UTI (urinary tract infection) acute Atherosclerotic heart diseas e of [place] coronary artery without angina pectoris chronic Cardiomyopathy, 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 Acute dehydration resolved Acute metabolic encephalopathy resolved SINGH (acute kidney injury) re solved Episode of generalized weakness resolved [facility] Work Phone: Evaluation note* Diagnosis Onset Date Resolution Status Urinary retention acute UTI (urinary tract infection) acute Atherosclerotic heart diseas e of [place] coronary artery without angina pectoris chronic Cardiomyopathy, [...] Presence of stent in coronary artery December, [facility] Work Phone: Evaluation note* Diagnosis Benign prostatic hyperplasia with lower urinary tract symptoms, symptom details unspecified Retention of urine Unspecified retention of urine Nocturia Abnormal digital rectal exam documented in this encounter [facility] Work Phone: Evaluation note* Diagnosis Incomplete bladder emptying- Primary documented in this encounter [facility] Work Phone: Evaluation note* Diagnosis Elevated PSA- Primary Elevated prostate specific antigen (PSA) documented in this encounter [facility] Work Phone: Evaluation note* Diagnosis Elevated PSA Elevated prostate specific antigen (PSA) Abnormal digital rectal exam Malignant neoplasm of prostate (Multi) Malignant neoplasm of prostate Retention of urine Unspecified retention of urine documented in this encounter [facility] Work Phone: Evaluation note* Diagnosis Malignant neoplasm of prostate (Multi) Malignant neoplasm of prostate documented in this encounter [facility] Work Phone: Evaluation note* Diagnosis Malignant neoplasm of prostate (Multi) Malignant neoplasm of prostate Abnormal digital rectal exam Elevated PSA Elevated prostate specific antigen (PSA) Retention of urine Unspecified retention of urine Urinary retention- Primary Unspecified retention of urine documented in this encounter [facility] Work Phone: Evaluation note* Diagnosis Urinary retention- Primary Unspecified retention of urine Urinary retention Unspecified retention of urine documented in this encounter [facility] Work Phone: Evaluation note* Diagnosis Urinary retention Unspecified retention of urine documented in this encounter [facility] Work Phone: Evaluation note* Diagnosis Urinary retention Unspecified retention of urine Bladder spasm Hypertonicity of bladder Malignant neoplasm of prostate (Multi) Malignant neoplasm of prostate documented in this encounter [facility] Work Phone: Evaluation note* Diagnosis Bladder spasms- Primary Hypertonicity of bladder Urinary retention Unspecified retention of urine documented in this encounter [facility] Work Phone: Evaluation note* Diagnosis Urinary retention Unspecified retention of urine documented in this encounter [facility] Work Phone: Evaluation note* Diagnosis Urinary retention Unspecified retention of urine documented in this encounter [facility] Work Phone: Evaluation note* Diagnosis Prostate cancer (Multi)- Primary Malignant neoplasm of prostate Urinary retention Unspecified retention of urine Bladder spasm Hypertonicity of bladder Malignant neoplasm of prostate (Multi) Malignant neoplasm of prostate Urinary retention Unspecified retention of urine documented in this encounter [facility] Work Phone: History and physical note Author Manisha Varela [facility] September 04, 2023 6:33pm Note Date/Time September 04, 2023 6 :23pm [facility] Medical Records Department [address] [place] [address] H&P Exam - Hospitalist 09/04/23 1820 MR#: [id number] Acct: [id number] Name: RAJAT GUZMÁN Rep #:[id number] : 1935 88 From: Manisha Varela MD PCP: Dr. John Mckeon, DO Status:ADM WESTLEY Location: [facility] [id number] HPI - General General Date of Admission: 09/04/23 Date of Service: 09/04/23 Chief Complaint: Gen weakness, abd pain, confusion HPI Narrative RJAAT GUZMÁN, is a 88-year-old male history of coronary artery disease, heart failure with reduced ejection fraction with dual AICD, BPH, hypertension presented to [facility] 09/04/2023 with generalized weakness. Hehad a procedure [...] home, denies other complaints at this time. [facility] Medical History (Updated 09/04/23 @ 18:[address] Manisha Varela MD) Abnormal result of cardiovascular function study, unspecified Angina pectoris Atherosclerotic heart disease of [place] coronary artery without angina pectoris Benign prostatic [...] Sl. Cloudy, Urine pH 6.0, Ur Specific [place] 1.020, Urine Protein 15 H, Urine Glucose [...] 77.7 H, Lymph % (Auto) 11.1 L, Carter % (Auto) 10.2 H, Eos % (Auto) [...] 17:36 EDT Reading Location ID and State: [employer] / [employer] , Service support , Chest X-Ray 09/04/23 16:52 IMPRESSION: No active disease. Electronically Signed: Leroy Barrett MD at 17:27 EDT Reading Location ID and State: [id number] / [employer] , Service support , Assessment & Plan Assessment/Plan (1) SINGH (acute kidney injury): (2) Atherosclerotic heart disease of [place] coronary artery without angina pectoris: QUALIFIERS: [place] vs. transplanted heart: [place] heart QualifiedCode(s): I25.10 - Atherosclerotic heart disease of [place] coronary artery without angina pectoris; I25.10 - Atherosclerotic heart disease of [place] coronary artery without angina pectoris; I25.10 - Atherosclerotic heart disease of [place] coronary artery without angina pectoris (3) Cardiomyopathy, [...] Varela MD Charges/Coding Visit Charges Inpatient E&M: 08543 Init Hosp L2 09/04/23 1833 <Electronically signed by Manisha Varela MD> Cosigner Signature (if applicable): CC: Dr. John Mckeon DO; Dr. Manisha Varela MD~ Signed [facility] Work Phone: Hospital Discharge instructions Additional Instructions Implant Used?: [facility] Work Phone: Reason for referral (narrative)No reason for referral information availableWLakeHealth [facility] Work Phone: Reason for visit Narrative* Auth/Cert Specialty Diagnoses / Procedures Referred By Krys rangel Referred To Contact Diagnoses Urinary retention Urinary retention [R33.9] Procedures CT CYSTOSTOMY CYSTOTOMY W/DRAINAGE Cystotomy Suprapubic Asmita Zambrano MD [address] [place] [address] [address] [address] [address] Referral ID Status Reason Start Date Expiration Date Visits Re quested Visits Authorized [id number] 1 1 [facility] Work Phone: Reason for visit Narrative* /Urology (Routine) - Authorized Specialty Diagnoses / Procedures Referred By Krys rangel Referred To Contact Urology Diagnoses Other retention of urine Procedures CT CHANGE CYSTOSTOMY TUBE SIMPLE [address] [address] Phone: tel: fax: Asmita Zambrano MD [address] [place] [address] Phone: tel: fax: Referral ID Status Reason Start Date Expiration Date V isits Requested Visits Authorized [id number] Authorized 11/28/2024 11/28/2025 1 1 [facility] Work Phone: Renadl for visit Narrative* Consultation (Routine) - Authorized Specialty Diagnoses / Procedures Referred By Krys t Referred To Contact Urology Diagnoses Urinary retention Procedures Follow Up In Urology Jian Caro MD [facility] [address] [place] [address] Phone: tel: fax: Referral ID Status Reason Start Date Expiration Date V isits Requested Visits Authorized [id number] Authorized 04/09/2025 04/09/2026 1 1 [facility] Work Phone: Advance Directives Documents on File Type Date Recorded Patient Form Raiser Expl anation Advance Directive(s) 06/10/2016 3:34 PM Advance Directive Response Recorded Date/ Time Advance Directives Yes September 6:49pm Living Will No November 15 7:07pm Power of Patient Resource Specialist No November 15, 2020 7:07pm Advance Directive Response Recorded Date/ Time Advance Directives Yes September 5:49pm Living Will No November 15 6:07pm Power of Patient Resource Specialist No November 15, 2020 6:07pm Advance Directive Response Recorded Date/ Time Advance Directives Yes September 5:49pm Living Will No October 16, 022 1:05pm Power of Patient Resource Specialist No October 16, 2022 1:05pm Advance Directive Response Recorded Date/ Time Name of Medical Power of Patient Resource Specialist unknown December 27, 2022 9:53pm Advance Directives Yes September 5:49pm Living Will Yes December 27 023 9:53pm Power of Patient Resource Specialist Yes December 27, 2022 9:53pm Advance Directive Response Recorded Date/ Time Name of Medical Power of Patient Resource Specialist unknown December 27, 2022 10:53pm Name of Medical Power of Patient Resource Specialist UNKNOWN January 06, 2023 10:21am Advance Directives Yes September 6:49pm Living Will No January 06, 2023 10:21am Power of Patient Resource Specialist Yes January 06 10:21am Advance Directive Response Recorded Date/ Time Advance Directives Yes September 6:49pm Living Will No January 06, 2023 10:21am Power of Patient Resource Specialist Yes January 06 10:21am Advance Directive Response Recorded Date/ Time Advance Directives Yes September 6:49pm Living Will No September 04 4:38pm Power of Patient Resource Specialist No September 04, 2023 4:38pm Advance Directive Response Recorded Date/ Time Advance Directives Yes September 5:49pm Living Will No September 04 7:17pm Power of Patient Resource Specialist No September 04, 2023 7:17pm Advance Directive Response Recorded Date/ Time Advance Directives Yes September 5:49pm Living Will No October 20, 023 4:11pm Power of Patient Resource Specialist No October 20, 2023 4:11pm Advance Directive Response Recorded Date/ Time Advance Directives Yes September 5:49pm Living Will No October 11, 2 023 1:45pm Power of Patient Resource Specialist No October 11, 2023 1:45pm Date Activated [...] Do you have a Healthcare Power of Patient Resource Specialist? Yes March 30, 2024 3:36am Living Will Yes December 16, 025 4:11pm Do you have a Healthcare Power of Patient Resource Specialist? Yes December 16, 2024 4:11pm Name of Medical Power of Patient Resource Specialist boogie bravo and michelle campos December 16, 2024 4:11pm Advance Directives Yes September 6:49pm Advance Directive Response Recorded Date/ Time Do you have a Healthcare Power of Patient Resource Specialist? No April 27, 2025 8:28pm Advance Directives [...] internal cardiac defibrillator Atherosclerotic heart disease of [place] coronary artery without angina pectoris Cardiomyopathy, ischemic Dyspnea Essential hypertension History of placement of internal cardiac defibrillator Pure hypercholesterolemia Stented coronary artery Chief Complaint 6 M FU 3 mos remote ICD f/u Dizziness, on Ent[employer] L.Lorson Reason for Visit Atherosclerotic hear t disease of [place] coronary artery without angina pectoris Cardiomyopathy, ischemic [...] cardioverter-defibrillator) in place Atherosclerotic heart disease of [place] coronary artery without angina pectoris Cardiomyopathy, ischemic Essential hypertension History of placement of internal cardiac defibrillator Pure hypercholesterolemia Stented coronary artery Chief Complaint 3 mos remote ICD f/u 1 Y FU cysto with dilation of urethral stricture Reason for Visit Cardiomyopathy, isch emic Chronic systolic congestive heart failure 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 Atherosclerotic heart disease of [place] coronary artery without angina pectoris Cardiomyopathy, ischemic [...] (urinary tract infection) Atherosclerotic heart disease of [place] 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 Lorson E ORDERS INT LABS PSA UTI, SINGH, GENERAL WEAKNESS UTI, SINGH, GENERAL WEAKNESS Reason for Visit Acute dehydration Acute metabolic encephalopathy SINGH (acute kidney injury) Episode of generalized weakness Urinary retention UTI (urinary tract infection) Atherosclerotic heart disease of [place] coronary artery without angina pectoris Cardiomyopathy, ischemic [...] (urinary tract infection) Atherosclerotic heart disease of [place] coronary artery without angina pectoris Cardiomyopathy, 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 Chief Complaint BP Check per L. 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, ischemic [...] (urinary tract infection) Atherosclerotic heart disease of [place] coronary artery without angina pectoris Cardiomyopathy, ischemic [...] (urinary tract infection) Atherosclerotic heart disease of [place] coronary artery without angina pectoris Cardiomyopathy, ischemic [...] pelvis w IV contrast Asmita Zambrano MD [address] [place] [id number] Referral ID Status Reason Start Date Expiration Date Visits Requested Visits Authorized [id number] Pending Review Perform Procedure 04/26/2024 04/26/2025 1 1 Specialty Diagnoses / Procedures Referred By Krys rangel Referred To Contact Radiology Diagnoses Malignant neoplasm of prostate (Multi) Procedures CT abdomen pelvis w IV contrast Asmita Zambrano MD [address] [place] [address] Referral ID Status Reason Start Date Expiration Date Visits Requested Visits Authorized [id number] Pending Review Perform Procedure 06/28/2024 06/28/2025 1 1 Referral ID Status Reason Start Date Expiration Date Visits Requested Visits Authorized [id number] Authorized Perform Procedure 06/28/2024 06/28/2025 1 1 Specialty Diagnoses / Procedures Referred By Contac t Referred To Contact Diagnoses Malignant neoplasm of prostate (Multi) Asmita Zambrano MD [address] [place] [id number] Referral ID Status Reason Start Date Expiration Date V isits Requested Visits Authorized [id number] Pending Review 07/12/2024 07/12/2025 1 1 Additional Source Comments Source Comments (unrecognize d section and content) In the event this informatio n is protected by the Federal Confidentiality of Alcohol and Drug Abuse Patient Records regulations: The Federal rules restrict any use of the information to criminally investigate or prosecute any alcohol or drug abuse patient.[facility] Reason for Visit (unrecogniz ed section and content) Reason Onset Date Comments Refill Request 10/18/2011 Reason Comments CYSTOSCOPY Reason Comments PROSTATE BIOPSY Reason Comments TRUS RESULTS Specialty Diagnoses / Procedures Referred By Contac t Referred To Contact Radiology Diagnoses Malignant neoplasm of prostate (Multi) Procedures CT abdomen pelvis w IV contrast Asmita Zambrano MD [address] [place] [address] Referral ID Status Reason Start Date Expiration Date Visits Requested Visits Authorized [id number] Authorized Perform Procedure 06/28/2024 06/28/2025 1 1 Reason Comments LUPRON AND CT RESULTS Specialty Diagnoses / Procedures Referred By Contac t Referred To Contact Diagnoses Malignant neoplasm of prostate (Multi) Asmita Zambrano MD [address] [place] [address] Referral ID Status Reason Start Date Expiration Date V isits Requested Visits Authorized [id number] Pending Review 07/12/2024 07/12/2025 1 1 Reason Comments ROD CHANGE Specialty Diagnoses / Procedures Referred By Contac t Referred To Contact Urology Diagnoses Retention of urine, unspecified Procedures CT CHANGE CYSTOSTOMY TUBE SIMPLE [facility] [address] [place] [address] [address] [place] [address] Phone: tel: fax: [place] [address] [place] [id number] Phone: tel: fax: Referral ID Status Reason Start Date Expiration Date V isits Requested Visits Authorized [id number] Authorized 12/27/2024 12/27/2025 1 1 Goals (unrecognized [...] DO Primary Care Provider Active Cynthia Bowen HUMAN RESOURCES PROFESSIONAL, HUMAN RESOURCES PROFESSIONAL-C Attending Provider, Referring P alana Active Team [...] Provider, Referrin g Provider Active Cynthia Bowen HUMAN RESOURCES PROFESSIONAL, HUMAN RESOURCES PROFESSIONAL-C Attending Provider Active Team Status: Inactive Member Role Status Dates Dr. John Mckeon DO Primary Care Provider Active Dr. Timoteo Mullins MD Attending Provider, Referring Pro vider Active Shoe Associate Relationship Specialty Start Date End Date John Mckeon DO [address] [place] [phone] PCP - General Family Medicine 03/14/24 Shoe Associate Relationship Specialty Start Date End Date John Mckeon DO [address] [place] [phone] PCP - General Family Medicine 03/14/24 Shoe Associate Relationship Specialty Start Date End Date John Mckeon DO [address] [place] [phone] PCP - General Family Medicine 03/14/24 Shoe Associate Relationship Specialty Start Date End Date John Mckeon DO [address] [place] [phone] PCP - General Family Medicine 03/14/24 Shoe Associate Relationship Specialty Start Date End Date John Mckeon DO [address] [place] [phone] PCP - General Family Medicine 03/14/24 Shoe Associate Relationship Specialty Start Date End Date John Mckeon DO [address] [place] [phone] PCP - General Family Medicine 03/14/24 Shoe Associate Relationship Specialty Start Date End Date John Mckeon DO [address] [place] [phone] PCP - General Family Medicine 03/14/24 Shoe Associate Relationship Specialty Start Date End Date John Mckeon DO [address] [place] [phone] PCP - General Family Medicine 03/14/24 Shoe Associate Relationship Specialty Start Date End Date John Mckeon [address] [place] [address] PCP - General Family Medicine 03/14/24 Shoe Associate Relationship Specialty Start Date End Date John Mckeon [address] [place] [address] PCP - General Family Medicine 03/14/24 Shoe Associate Relationship Specialty Start Date End Date John Mckeon DO [address] [place] [phone] PCP - [...] Inactive Member Role Status Dates Dr. John Mckoen DO Primary Care Provider Active Start: December [...] February 05, 2025 End: February 05, 2025 Shoe Associate Relationship Specialty Start Date End Date John Mckeon DO [address] [place] [phone] PCP - General Family Medicine 03/14/24 Shoe Associate Relationship Specialty Start Date End Date John Mckeon DO [address] [place] [phone] PCP - General Family Medicine 03/14/24 Team [...] 2025 End: March 12, 2025 Cynthia Bowen HUMAN RESOURCES PROFESSIONAL, HUMAN RESOURCES PROFESSIONAL-C Attending Provider Active Start: March 12, 2025 [...] section and content) DATE CREATED AUTHOR 07/25/2024 [facility] DATE CREATED AUTHOR AUTHOR'S ORGANIZ ATION 04/25/2025 [facility] DATE CREATED AUTHOR AUTHOR'S ORGANIZ ATION 04/26/2025 [facility] Scheduled Active and Recently Administ ered [...] BE BASED ON THE PRIMARY CLINICAL RECORDS. [facility] [facility]. provides no warranty or guarantee of the accuracy or completeness of information in this document.
--- NOTE | 2025-04-28 18:32 | PCM.HP.STD ---
HPI - General General Date of Admission: 04/29/25 HPI Narrative JORGE GUZMÁN, is a 89-year-old male history of coronary artery disease with stenting, AICD, CHF, BPH who presented [facility] ED 04/28/2025 with urinary symptoms, nausea, vomiting and now dry heaves. Patient was seen yesterday in the ED with poor p.o. intake and was found to have a UTI and placed on Keflex but he has been having nausea and vomiting with dry heaves so has not been able to take the medication. In the ED temp 98.3, heart rate 90 with blood pressure 150/80, respiratory rate 16 pulse ox 98% on room air. Lactic acid within normal limits, BMP only notable for a glucose of 149, white blood cell count 11.5 with hemoglobin 12.4. Given patient's inability to tolerate p.o. antibiotics hospitalist contacted for admission. Patient evaluated family member at bedside and reports that he has not been eating well for the past 2 days and had significant suprapubic pain and episode of diarrhea yesterday, had been having dark stool previously but has been drinking Pepto-Bismol, has had a slight cough. No chest pain or shortness of breath, no headache, no fevers. Does report suprapubic pain is improving since yesterday but has significant nausea and dry heaves and has been unable to take in p.o. 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 General weakness Otitis media Elevated troponin Orchitis of right testicle Sepsis Implantable cardioverter-defibrillator (ICD) at end of battery life Essential hypertension Family history of CVA Family history of hypertension FH: sudden cardiac (SCD) History of placement of internal cardiac defibrillator HTN (hypertension) Old myocardial infarction Angina pectoris Cardiomyopathy, ischemic Chronic systolic congestive heart failure HLD (hyperlipidemia) Abnormal result of cardiovascular function study, unspecified High risk medication use Iron deficiency anemia Chest pain, precordial Atherosclerotic heart disease of [place] coronary artery without angina pectoris Dyspnea Fatigue Hypokalemia Benign prostatic hypertrophy SBO (small bowel obstruction) Home Medications ?Medication ?Instructions ?Recorded ?Last Taken ?Type aspirin 81 mg tablet,delayed 81 mg PO DAILY 05/23/24 Unknown History release (Adult Low Dose Aspirin) dupilumab 300 mg/2 mL subcutaneous 300 mg subcut Q2W 05/23/24 Unknown History pen injector nitroglycerin 0.4 mg sublingual 0.4 mg sublingual Q5M PRN Chest 05/23/24 Unknown Rx tablet Pain #25 tabs tamsulosin 0.4 mg capsule 0.4 mg PO QDAY 05/23/24 Unknown History simvastatin 20 mg tablet 20 mg PO QHS for cholesterol #90 08/23/24 Unknown Rx TABLETS carvedilol 6.25 mg tablet 6.25 mg PO BID #60 tabs 11/10/24 Unknown Rx prednisone 5 mg tablet 5 mg PO QDAY 11/10/24 Unknown History ondansetron 4 mg disintegrating 4 mg PO Q8H PRN PRN Nausea #10 tabs 12/16/24 Unknown Rx tablet sacubitril 24 mg-valsartan 26 mg 1 tab PO BID #60 tabs 03/14/25 Unknown Rx tablet (Entresto) cephalexin 500 mg capsule 500 mg PO Q6 #28 CAPSULES 04/27/25 Unknown Rx phenazopyridine 200 mg tablet 200 mg PO TID 6 doses #5 tabs 04/27/25 Unknown Rx (Pyridium) diphenhydramine 25 2 tab PO QHS 04/28/25 Unknown History mg-acetaminophen 500 mg tablet (Tylenol PM Extra Strength) melatonin 10 mg tablet 20 mg PO QHS sleep 04/28/25 Unknown History oxybutynin chloride 5 mg tablet 5 mg PO TID 04/28/25 Unknown History Allergy/AdvReac Type Severity Reaction Status Date / Time morphine Allergy Intermediate Rash Verified 04/28/25 15:27 zolpidem tartrate (From AdvReac Intermediate CONFUSION Verified 04/28/25 15:27 Ambien) Family History Mother CAD (coronary artery disease) CVA (cerebral vascular accident) Myocardial infarction, Onset Age: 67 Hypertension Brother CAD (coronary artery disease) Hypertension Cancer Lung CA Myocardial infarction, Onset Age: 73 Father Myocardial infarction, Onset Age: 77 Daughter Cancer Son Myocardial infarction, Onset Age: 46 Other Cardiomyopathy, ischemic Chronic systolic congestive heart failure Fatigue General weakness Iron deficiency anemia Surgical History H/O dilation of urethra Hx of transurethral resection of prostate Presence of coronary artery bypass graft stent (~12/28/18) History of cardiac catheterization Hx of colonoscopy Hx of surgical procedure History of hernia repair History of prostate surgery History of left heart catheterization Social History (Reviewed 03/12/25 @ 16:11 by Cynthia Bowen COMMERCIAL LOAN SPECIALIST, COMMERCIAL LOAN SPECIALIST-C) household members: spouse Smoking Status: Never smoker alcohol intake: never substance use type: does not use caffeine: Yes Type: carbonated beverages and coffee Number of servings: 1 what type of physical activity do you participate in: none seatbelt use: always do you feel safe at home: Yes ROS ROS Narrative General: Denies fever/chills HENT: Denies headache, denies stuffy nose, denies sore throat EYES: Some chronic changes in vision Resp: Denies cough, denies shortness of breath Cardiac: Denies chest pain GI: Suprapubic pain improving, nausea and dry heaves, 1 episode of loose stool yesterday : Has been having urinary symptoms Extremity: Denies swelling MSK: Somewhat generally weak Neuro: Denies any numbness/tingling Heme: Denies any bleeding or bruising Skin: Denies rashes Psychiatric: No complaints voiced Vital Signs Vital Signs Vital Signs: 04/28/25 15:25 04/28/25 17:25 04/28/25 18:19 Temperature 98.3 F 98.7 F Temperature Source Oral Pulse Rate 90 77 80 Respiratory Rate 16 16 16 Blood Pressure 150/80 H 149/64 H 137/79 H Blood Pressure Mean 103 92 98 Pulse Ox 98 100 100 Oxygen Delivery Method Room Air Room Air Weight Weight: 53.751 kg Body Mass Index (BMI) 20.9 Physical Exam Narrative General: Alert, oriented, no apparent distress HEENT: Atraumatic, normocephalic Eyes: Anicteric, normal conjunctiva, extraocular movements grossly intact Neck: Supple Respiratory: Clear to auscultation bilaterally, normal respiratory effort Cardiovascular: Regular rate GI: Soft, nontender, nondistended Extremities: No edema Musculoskeletal: Moving all extremities Neuro: No overt focal neurological deficits Skin: No rashes appreciated Psych: Cooperative Results Lab / Micro Data 04/29/25 04:51 04/29/25 04:51 Labs: Laboratory Results - last 24 hr 04/28/25 16:20: WBC 11.5 H, RBC 4.14 L, Hgb 12.4 L, Hct 37.3 L, MCV 90.1, MCH 30.0, MCHC 33.2, RDW Std Deviation 44.0 H, RDW Coeff of Arleen 13.4, Plt Count 189, MPV 10.6, Immature Gran % (Auto) 0.200, Neut % (Auto) 72.7 H, Lymph % (Auto) 17.9 L, Barnes % (Auto) 8.6, Eos % (Auto) 0.2, Baso % (Auto) 0.4, Absolute Neuts (auto) 8.3 H, Absolute Lymphs (auto) 2.05, Nucleated RBC % 0, Sodium 137, Potassium 3.8, Chloride 99, Carbon Dioxide 24.7, Anion Gap 12, BUN 9, Creatinine 0.82, Estim Creat Clear Calc 46.43 L, Est GFR (MDRD) Non-Af 84, BUN/Creatinine Ratio 10.5, Glucose 149 H, Lactic Acid 1.2, Calcium 9.3, Total Bilirubin 0.81, AST 21, ALT 10, Alkaline Phosphatase 64, Total Protein 7.3, Albumin 3.9, Globulin 3.3, Albumin/Globulin Ratio 1.2 Assessment & Plan Assessment/Plan (1) Acute UTI: (2) Nausea & vomiting: PLAN: Plan # Urinary tract infection - Unable to tolerate p.o. antibiotics given his nausea and dry heaves so patient will be admitted for IV antibiotics - Culture obtained yesterday and is pending -Patient actually previously grew ESBL so switched to Zosyn given resistance patterns while pending culture and sensitivity data - IV fluids - Supportive care #Hx of CAD -w/ previous stenting -Continue home medications - cardiac diet # History of combined heart failure not in acute exacerbation and AICD - Daily weights, I's and O's - Hydrate cautiously and monitor for signs of fluid overload - Continue home Coreg and Entresto #Chronic BPH with obstruction -Continue home medications #DVT ppx: Lovenox subcu Manisha Varela MD Charges/Coding Visit Charges Inpatient E&M: 42584 Init Hosp L2
--- OUTSIDE RECORDS SUMMARY | 2025-04-28 18:58 | XMS RPT_ITS | CCD ---
Author Organization [facility] Care Team Providers Care Sewer And Drain Technician Name Role Phone TERESITA Grubbs, Elsy Denis [...] [phone] Shailesh Mancini Referring Provider Unavailable Jarad RETAIL BRAND AMBASSADOR, SUPRIYA-Merrill Galloway Attending Provider Shailesh Mancini Primary [...] Provider Clarisa MARCUS, Dr. Mahmood Attending Provider Clarisa MARCUS, Dr. Mahmood Emergency Provider ZAMBRANO, [...] Care Unavailable Susanna, Timoteo Referring Unavailable Susanna, [place] Attending Unavailable Sadie, John Primary Care Unavailable Susanna, Timoteo Attending Unavailable Susanna, [place] Referring Unavailable Sadie, John Primary Care Unavailable [...] Care Unavailable Sadie, John Referring Unavailable Sadie, Jonh Attending Unavailable Dr. John Mckeon DO Primary Care Provider [phone] Dr. John Mckeon DO Attending Provider [phone] John Mckeon DO Referring Provider [phone] Cynthia Roberts Attending Provider CHERYL SUTHERLAND Attending Provider [phone] Timoteo Mckenna DO Emergency Provider Allergies Allergy Classification Reported Allergen(s) Allergy Type Date of Onset Reaction(s) Facility Opioid Agonists (1 source) Morphine Drug Allergy [address] [facility] (20 sources) Morphine; Translations: [MORPHINE] Drug Allergy 3 Rash [facility] (20 sources) zolpidem; Translations: [zolpidem tartrate] Drug Allergy 1 CONFUSION [facility] (15 sources) zolpidem; Translations: [ZOLPIDEM] Drug Allergy 9 Hallucinations, Unknown Hospitals 2 Repository (1 source) Morphine Drug Allergy 5 [facility] Repository Medications Current Medications Medication [...] TBEC One tablet by mouth daily ASPIRIN [id number] Abril Daly RN Start: 06-19-2005 take 1 tablet by mayda th once daily ASPIRIN 81 MG TABS One tablet by mouth daily ASPIRIN [id number] Leonora Viveros Comment on above: Take one [...] 1/2 tablet by mouth twice daily CARVEDILOL [id number] Robbi Abbott MD Start: 05-20-2012 take 1 tablet by mayda th twice daily COREG 25 MG TABS One tablet by mouth twice daily CARVEDILOL [id number] Robbi Abbott MD Start: 08-04-2010 End: 04-17-2019 [...] 12:00am Start: 07-25-2024 take 1 tablet by [facility] three times daily as needed for muscle spasms phenazopyridine (Pyridium) 200 mg tablet Indications: Urinary retention Take 1 tablet (200 mg) by mouth 3 times a day as needed for bladder spasms. 30 tablet 07/25/2024 Active polyethylene glycol 3350 62958 mg powder for oral solution (13 sources) [...] One tablet by mouth daily DIPHENHYDRAMINE-APAP (SLEEP) [id number] Robbi Abbott MD amoxicillin 875 mg / [...] daily ISOSORBIDE MONONITRA TE ER 30 MG [id number] One tablet by mouth daily (Imdur) STOP ISOSORBIDE MONONITRATE [id number] Abril Dupree PA-C isosorbide dinitrate 30 mg [...] One tablet by mouth twice daily LISINOPRIL [id number] Robbi Abbott MD Start: 03-06-2009 End: 07-17-2013 take 1 tablet by mouth once daily LISINOPRIL 10 MG TABS One tablet by mouth daily LISINOPRIL [id number] Robbi Abbott MD Comment on above: Take [...] One tablet by mouth daily PANTOPRAZOLE SODIUM [id number] Rain Segovia NP Start: 06-04-2011 End: 10-23-2011 [...] Two tablets by mouth daily POTASSIUM CHLORIDE [id number] Leonora Viveros 12 hr ranolazine 500 mg extended release oral tablet (20 sources) Anti-anginal Start: 12-21-2014 take 1 tablet by mouth twice daily RANEXA 500 MG [id number] One tablet by mouth twice daily RANOLAZINE [id number] Kasia Nieto RN Start: 08-04-2010 End: 05-02-2012 take 1 tablet by mouth twice daily RANEXA 500 MG [id number] One tablet by mouth twice daily RANOLAZINE [id number] Kasia Nieto RN simvastatin 20 mg oral [...] FFR of RCA negative per DJN @ [facility] Deficiency and other anemia (20 sources) [...] (19 sources) Drug therapy finding; Translations: [Other long term care phlebotomist (current) drug therapy] 01-31-2019 Episodic Other aftercare [...] (2 sources) Long-term drug therapy; Translations: [Other skilled nursing (current) drug therapy] Onset: 1 01-13-2011 Urinary [...] FFR of RCA negative per DJN @ [facility] Esophageal disorders (1 source) Esophagitis; Translations: [Esophagitis, unspecified] Onset: 06-12-2010 06-12-2010 Episodic Other aftercare (15 sources) Long-term drug therapy; Translations: [Other skilled nursing (current) drug therapy] Onset: 01-13-2011 01-13-2011 Episodic [...] Auto (Unsp spec) [#/Vol] 1.92 10*3/uL 0.83-4.51 [facility] Absolute neutrophil countOrd ered By: Timoteo Mckenna on 04-27-2025 Neutrophils (Bld) [#/Vol] 7.0 10*3/uL 2.0-7.7 [facility] Anion gap in Serum or Plasma Ordered By: Timoteo Mckenna on 04-27-2025 Anion gap [Moles/Vol] 12 mmol/L 5-15 [facility] Automated lymphocyte count a s percentage of total leukocytesOrdered By: Timoteo Mckenna on 04-27-2025 Lymphocytes/100 WBC Auto (Unsp spec) 19.6 % 19-41 [facility] BUN/creatinine ratioOrdered By: [facility] Mckenna on 04-27-2025 Urea nitrogen/Creatinine [Mass ratio] 14.1 mg/mg 10-20 [facility] Basophil percentageOrdered B y: Timoteo Mckenna on 04-27-2025 Basophils/100 WBC (Bld) 0.5 % 0-1 [facility] Bilirubin Test strip Ql (U)O rdered By: Timoteo Mckenna on 04-27-2025 Bilirubin Ql (U) Negative Negative [facility] Bilirubin, totalOrdered By: Timoteo Mckenna on 04-27-2025 Bilirubin [Mass/Vol] 0.75 mg/dL 0.00-1.30 [facility] Carbon dioxide, total [Moles /volume] in Central venous bloodOrdered By: Timoteo Mckenna on 04-27-2025 CO2 [Moles/Vol] 23.2 mmol/L 21.0-32.0 [facility] Chloride assayOrdered By: Melissa Mckenna on 04-27-2025 Chloride [Moles/Vol] 100 mmol/L 98-108 [facility] Eosinophil percentageOrdered By: Timoteo Mckenna on 04-27-2025 Eosinophils/100 WBC (Bld) 1.0 % 0-5 [facility] Erythrocyte distribution wid th ratioOrdered By: Timoteo Mckenna on 04-27-2025 Erythrocyte distribution width (RBC) [Ratio] 13.6 % 11.6-14.6 [facility] Erythrocyte distribution wid th standard deviationOrdered By: Timoteo Mckenna on 04-27-2025 Erythrocyte distribution width (RBC) [Ratio] 43.9 fl 35.1-43.9 [facility] Glomerular filtration rate ( GFR) estimation/1.73 sq m using serum, plasma, or whole bOrdered By: Timoteo Mckenna on 04-27-2025 GFR/1.73 sq M.predicted among non-blacks MDRD (S/P/Bld) [Vol rate/Area] 82 mL/min/{1.73_m2} >60 [facility] Comment on above: mL/min/1.73m2 CKD-EP I Creatinine Equation (2020) Hematocrit Auto (Bld) [Volum e fraction]Ordered By: Timoteo Mckenna on 04-27-2025 Hematocrit (Bld) [Volume fraction] 36.0 % Low 40-54 [facility] Hemoglobin measurementOrdere d By: Timoteo Mckenna on 04-27-2025 Hemoglobin (Bld) [Mass/Vol] 12.2 g/dL Low 13.0-16.5 [facility] Immature granulocytes/100 WB C Auto (Bld)Ordered By: Timoteo Mckenna on 04-27-2025 Immature granulocytes/100 WBC (Bld) 0.400 % 0.0-0.9 [facility] Comment on above: IG% - Immature Granu locytes (promyelocytes, myelocytes and metamyelocytes) > 1% indicates that a LEFT SHIFT is Present. Ketones Test strip Ql (U)Ord ered By: Timoteo Mckenna on 04-27-2025 Ketones Ql (U) 5 mg/dl High Negative [facility] Laboratory - Chemistry and C hemistry - challengeOrdered By: Timoteo Mckenna on 04-27-2025 AST [Catalytic activity/Vol] 30 U/L <38 [facility] Comment on above: Hemolysis present, R esults could be affected. Lipase measurementOrdered By : Timoteo Mckenna on 04-27-2025 Lipase [Catalytic activity/Vol] 15 U/L 13-75 [facility] Comment on above: Please note:LIPASE r evised reference range effective 23. New Lipase methodology. Expected to produce lower values than the previous assay method. NEW Reference Range: 13 - 75 U/L MCV (mean corpuscular volume ) determinationOrdered By: Timoteo Mckenna on 04-27-2025 MCV (RBC) [Entitic vol] 89.3 fL 80-94 [facility] Mean corpuscular hemoglobin (MCH) determinationOrdered By: Timoteo Mckenna on 04-27-2025 MCH (RBC) [Entitic mass] 30.3 pg 27.0-32.0 [facility] Mean corpuscular hemoglobin concentration (MCHC) determinationOrdered By: Timoteo Mckenna on 04-27-2025 MCHC (RBC) [Mass/Vol] 33.9 g/dL 32-36 [facility] Mean platelet volume determi nationOrdered By: Timoteo Mckenna on 04-27-2025 Platelet mean volume (Bld) [Entitic vol] 11.6 fL 6.2-12.0 [facility] Microscopic analysis of urin e for red blood cells (RBC)Ordered By: Timoteo Mckenna on 04-27-2025 Microscopic analysis of urine for red blood cells (RBC) 0-5 SEEN /hpf 0-5 [facility] Monocyte percentageOrdered B y: Timoteo Mckenna on 04-27-2025 Monocytes/100 WBC (Bld) 7.4 % 0-10 [facility] Mucus LM Ql (Urine sed)Order ed By: Timoteo Mckenna on 04-27-2025 Mucus Ql (Urine sed) 0 SEEN /hpf [facility] Neutrophil percentageOrdered By: Timoteo Mckenna on 04-27-2025 Neutrophils/100 WBC (Bld) 71.1 % High 47-70 [facility] Nitrite Test strip Ql (U)Ord ered By: Timoteo Mckenna on 04-27-2025 Nitrite Ql (U) Positive High Negative [facility] Nucleated red blood cell per centageOrdered By: Timoteo Mckenna on 04-27-2025 Nucleated RBC/100 WBC (Bld) [Ratio] 0 % 0-5 [facility] Platelet countOrdered By: Melissa Mckenna on 04-27-2025 Platelets (Bld) [#/Vol] 201 10*3/uL 150-450 [facility] Potassium measurement (mass/ volume)Ordered By: Timoteo Mckenna on 04-27-2025 Potassium (Unsp spec) [Mass/Vol] 4.2 mmol/L 3.3-5.1 [facility] Comment on above: Hemolysis present, R esults could be affected. Protein Test strip Ql (U)Ord ered By: Timoteo Mckenna on 04-27-2025 Protein Ql (U) 30 mg/dl High Negative [facility] RBC Auto (Bld) [#/Vol]Ordere d By: Timoteo Mckenna on 04-27-2025 RBC (Bld) [#/Vol] 4.03 10*6/uL Low 4.6-6.2 [facility] Serum creatinine measurement (mass/volume)Ordered By: Timoteo Mckenna on 04-27-2025 Creatinine [Mass/Vol] 0.90 mg/dL 0.70-1.20 [facility] Serum globulin measurementOr dered By: Timoteo Mckenna on 04-27-2025 Globulin (S) [Mass/Vol] 3.3 g/dL 2.2-4.2 [facility] Serum glucose measurement (m ass/volume)Ordered By: Timoteo Mckenna on 04-27-2025 Glucose [Mass/Vol] 285 mg/dL High 70-99 [facility] Serum or plasma alanine rice otransferase (ALT) measurementOrdered By: Timoteo Mckenna on 04-27-2025 ALT [Catalytic activity/Vol] 15 U/L <47 [facility] Serum or plasma albumin alfonso urement (mass/volume)Ordered By: Remus Clarisa on 04-27-2025 Albumin [Mass/Vol] 4.0 g/dL 3.4-4.8 [facility] Serum or plasma albumin/glob ulin mass ratioOrdered By: Remus Ungmaryann on 04-27-2025 Albumin/Globulin [Mass ratio] 1.2 {ratio} 0.9-2.4 [facility] Serum or plasma alkaline rory sphatase measurementOrdered By: Remus Clarisa on 04-27-2025 ALP [Catalytic activity/Vol] 65 U/L 40-129 [facility] Serum or plasma calcium alfonso urement (mass/volume)Ordered By: Remus Ungmaryann on 04-27-2025 Calcium [Mass/Vol] 9.2 mg/dL 7.6-11.0 [facility] Serum or plasma urea nitroge n measurement (mass/volume)Ordered By: Remus Clarisa on 04-27-2025 Urea nitrogen [Mass/Vol] 13 mg/dL 4-19 [facility] Sodium levelOrdered By: Remu s Clarisa on 04-27-2025 Sodium [Moles/Vol] 135 mmol/L 133-145 [facility] Squamous epithelial cells de tection in urine sediment by light microscopyOrdered By: Remus Mckenna on 04-27-2025 Epithelial cells.squamous LM Ql (Urine sed) 0 SEEN /hpf 0-5 [facility] Total proteinOrdered By: Rem us Clarisa on 04-27-2025 Protein [Mass/Vol] 7.3 g/dL 5.9-8.4 [facility] Urine clarityOrdered By: Rem us Clarisa on 04-27-2025 Clarity (U) Sl. Cloudy Clear [facility] Urine color determinationOrd ered By: Remus Clarisa on 04-27-2025 Color (U) Yellow Yellow [facility] Urine glucose detectionOrder ed By: Remus Clarisa on 04-27-2025 Glucose Ql (U) 1000 mg/dl High Normal [facility] Urine leukocyte esterase det ection by dipstickOrdered By: Remus Clarisa on 04-27-2025 Leukocyte esterase Test strip Ql (U) 500 /ul High Negative [facility] Urine pHOrdered By: Remus Un gur on 04-27-2025 pH (U) 6.0 [pH] 5.0 - 8.0 [facility] Urine sediment bacteria coun t by microscopy (number/high power field)Ordered By: Timoteo Mckenna on 04-27-2025 Bacteria LM.HPF (Urine sed) [#/Area] 2 /[HPF] None Seen [facility] Urine specific gravity measu rementOrdered By: Timoteo Clarisa on 04-27-2025 Specific gravity (U) [Rel density] 1.015 1.002-1.03 0 [facility] Urine urobilinogen measureme ntOrdered By: Timoteo Mckenna on 04-27-2025 Urobilinogen Ql (U) Normal mg/dl Normal [facility] White blood cell (WBC) count Ordered By: Timoteo Clarisa on 04-27-2025 WBC (Bld) [#/Vol] 9.8 10*3/uL 4.4-11.0 [facility] White blood cell countOrdere d By: Timoteo Clarisa on 04-27-2025 White blood cell count 25-50 SEEN /hpf 0-5 [facility] PSA,Total- Diagnosticon 04-02 PSA, DIAGNOSTIC 0.38 ng/mL Normal 0.00-4.00 [facility] Comment on above: Result Comment: [...] values. Performed By: #### L 501.9940 #### [facility] Laboratory [address] [place], [place], [id number] Cardiology Visit Reporton Cardiology Visit Report [facility] [address] [place] [address] OFFICE VISIT Date of Service: 03/12/25 MR#: [id number] Acct: [id number] Name: RAJAT GUZMÁN Rep #: [id number] : 1935 Provider: MORTEZA ortiz Age/Sex: 89/M Location: [facility] Status: Signed HPI HPI History of [...] 97 Intake Visit Reasons: 4 M FU Php Mysql Developer Required: No Is patient in pain?: No [...] (Reviewed 03/12/25 @ 16:11 by Cynthia Bowen RETAIL BRAND AMBASSADOR, RETAIL BRAND AMBASSADOR-C) Non-smoker History of heart attack Presence of [...] Chest pain, precordial Atherosclerotic heart disease of three affiliated coronary artery without angina pectoris Dyspnea Fatigue Hypokalemia Benign prostatic hypertrophy SBO (small bowel obstruction) Surgical History (Reviewed 03/12/25 @ 16:11 by Cynthia Bowen RETAIL BRAND AMBASSADOR, RETAIL BRAND AMBASSADOR-C) H/O dilation of urethra Hx of transurethral resection of prostate 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) History of cardiac catheterization Hx of colonoscopy Hx of surgical procedure History of hernia repair History of prostate surgery History of left heart catheterization Family History (Reviewed 03/12/25 @ 16:11 by Cynthia Bowen RETAIL BRAND AMBASSADOR, RETAIL BRAND AMBASSADOR-C) Mother CAD (coronary artery disease) CVA (cerebral vascular accident) Myocardial infarction, Onset Age: 67 Hypertension Brother CAD (coronary artery disease) Hypertension Cancer Lung CA Myocardial infarction, Onset Age: 73 Father Myocardial infarction, Onset Age: 77 Daughter Cancer Son Myocardial infarction, Onset Age: 46 Other Cardiomyopathy, ischemic Chronic systolic congestive heart deena (more content not included)... Normal [facility] CRPon 02-05-2025 C-REACTIVE PROT 3.80 mg/L High 0.0-3.0 [facility] Comment on above: Performed By: #### L 501.9940 #### [facility] [address] [place], [place], [id number] CRP [Mass/Vol]Ordered By: Nestor Mckeon on 02-05-2025 C-Reactive Protein Extended Range 3.80 mg/L High 0.0-3.0 [facility] Erythrocyte Sed Rateon 02-05 SED RATE 13 mm/hr Normal 0-20 [facility] Comment on above: Performed By: #### L 501.9940 #### [facility] [address] [place], [place], [id number] Erythrocyte sedimentation ra teOrdered By: John Mckeon on 02-05-2025 ESR (Bld) [Velocity] 13 mm/h 0-20 [facility] Serum or plasma C reactive p rotein measurement (mass/volume)Ordered By: John Mckeon on 02-05-2025 CRP [Mass/Vol] 3.80 mg/L High 0.0-3.0 [facility] Absolute neutrophil countOrd ered By: Timoteo Mckenna on 12-16-2024 Neutrophils (Bld) [#/Vol] 6.7 10*3/uL 2.0-7.7 [facility] Basic Metabolic Profile (BMP )on 12-16-2024 BUN/CRE 19.0 RATIO Normal - [facility] Comment on above: Performed By: #### L 100.0100, L500.2500 #### [facility] [address] [place], [place], [id number] CA,Total 9.9 mg/dL Normal 8.5-10.1 [facility] Comment on above: Performed By: #### L 100.0100, L500.2500 #### [facility] [address] [place], [address] Chloride [Moles/Vol] 100 mmol/L Normal 98-107 [facility] Comment on above: Performed By: #### L 100.0100, L500.2500 #### [facility] [address] [place], [address] CO2 [Moles/Vol] 27.0 mmol/L Normal 21.0-32.0 [facility] Comment on above: Performed By: #### L 100.0100, L500.2500 #### [facility] [address] [place], [address] Creatinine [Mass/Vol] 0.84 mg/dL Normal 0.70-1.30 [facility] Comment on above: Result Comment: The validity of the calculated GFR GFRAA in patients over 70 years has not been determined. Clinical correlation is essential. Performed By: #### L 100.0100, L500.2500 #### [facility] [address] [place], [address] ECRCL 44.07 ml/min Normal [facility] Comment on above: Performed By: #### L 100.0100, L500.2500 #### [facility] [address] [place], [address] EST GFR - AA 111 mL/min Normal >60 [facility] Comment on above: Result Comment: Afri can Iraqi GFR Calc Performed By: #### L 100.0100, L500.2500 #### [facility] [address] [place], [address] GAP 8 Normal 5-15 [facility] Comment on above: Performed By: #### L 100.0100, L500.2500 #### [facility] [address] [place], [address] GFR/1.73 sq M.predicted among non-blacks MDRD (S/P/Bld) [Vol rate/Area] 92 mL/min/{1.73_m2} Normal >60 [facility] Comment on above: Result Comment: Non- GFR Calc Performed By: #### L 100.0100, L500.2500 #### [facility] [address] [place], [address] Glucose [Mass/Vol] 155 mg/dL High 74-106 [facility] Comment on above: Result Comment: Fast ing Glucose result greater than or equal to 126 mg/dL suggests DIABETES MELLITUS per A.D.A. criteria. Performed By: #### L 100.0100, L500.2500 #### [facility] [address] [place], [address] Potassium [Moles/Vol] 3.8 mmol/L Normal 3.5-5.1 [facility] Comment on above: Performed By: #### L 100.0100, L500.2500 #### [facility] [address] [place], [address] Sodium [Moles/Vol] 135 mmol/L Low 136-145 [facility] Comment on above: Performed By: #### L 100.0100, L500.2500 #### [facility] [address] [place], [address] Urea nitrogen [Mass/Vol] 16 mg/dL Normal 7-18 [facility] Comment on above: Performed By: #### L 100.0100, L500.2500 #### [facility] [address] [place], [address] Basophil percentageOrdered B y: Timoteo Mckenna on 12-16-2024 Basophils/100 WBC (Bld) 0.1 % 0-1 [facility] Bilirubin Test strip Ql (U)O rdered By: Remus Clarisa on 12-16-2024 Bilirubin Ql (U) Negative Negative [facility] Blood urea nitrogen (BUN)/cr eatinine ratioOrdered By: Timoteo Mckenna on 12-16-2024 Urea nitrogen/Creatinine [Mass ratio] 19.0 mg/mg 10-20 [facility] CBC W/Diff, Automatedon 12-02 Absolute Lymph 1.31 X10 3/uL Normal 0.83-4.51 [facility] Comment on above: Performed By: #### L 100.0100, L500.2500 #### [facility] [address] [place], [address] Absolute Neut 6.7 X10 3/uL Normal 2.0-7.7 [facility] Comment on above: Performed By: #### L 100.0100, L500.2500 #### [facility] [address] [place], [address] Basophils/100 WBC (Bld) 0.1 % Normal 0-1 [facility] Comment on above: Performed By: #### L 100.0100, L500.2500 #### [facility] [address] [place], [address] Eosinophils/100 WBC (Bld) 0.3 % Normal 0-5 [facility] Comment on above: Performed By: #### L 100.0100, L500.2500 #### [facility] [address] [place], [address] Erythrocyte distribution width (RBC) [Ratio] 13.7 % Normal 11.6-14.6 [facility] Comment on above: Performed By: #### L 100.0100, L500.2500 #### [facility] [address] [place], [address] Hematocrit (Bld) [Volume fraction] 42.5 % Normal 40-54 [facility] Comment on above: Performed By: #### L 100.0100, L500.2500 #### [facility] [address] [place], [address] Hemoglobin (Bld) [Mass/Vol] 13.8 g/dL Normal 13.0-16.5 [facility] Comment on above: Performed By: #### L 100.0100, L500.2500 #### [facility] [address] [place], [address] IG% 0.200 Normal 0.0-0.9 [facility] Comment on above: Result Comment: IG% - Immature Granulocytes (promyelocytes, myelocytes and metamyelocytes) > 1% indicates that a LEFT SHIFT is Present. Performed By: #### L 100.0100, L500.2500 #### [facility] [address] [place], [address] Lymphocytes/100 WBC (Bld) 15.2 % Low 19-41 [facility] Comment on above: Performed By: #### L 100.0100, L500.2500 #### [facility] [address] [place], [address] MCH (RBC) [Entitic mass] 29.2 pg Normal 27.0-32.0 [facility] Comment on above: Performed By: #### L 100.0100, L500.2500 #### [facility] [address] [place], [address] MCHC (RBC) [Mass/Vol] 32.5 g/dL Normal 32-36 [facility] Comment on above: Performed By: #### L 100.0100, L500.2500 #### [facility] [address] [place], [address] MCV (RBC) [Entitic vol] 89.9 fL Normal 80-94 [facility] Comment on above: Performed By: #### L 100.0100, L500.2500 #### [facility] [address] [place], [address] Monocytes/100 WBC (Bld) 6.1 % Normal 0-10 [facility] Comment on above: Performed By: #### L 100.0100, L500.2500 #### [facility] [address] [place], [address] Neutrophils/100 WBC (Bld) 78.1 % High 47-70 [facility] Comment on above: Performed By: #### L 100.0100, L500.2500 #### [facility] [address] [place], [address] Nucleated RBC (Bld) [#/Vol] 0 10*3/uL Normal 0-5 [facility] Comment on above: Performed By: #### L 100.0100, L500.2500 #### [facility] [address] [place], [address] Platelet mean volume (Bld) [Entitic vol] 10.6 fL Normal 6.2-12.0 [facility] Comment on above: Performed By: #### L 100.0100, L500.2500 #### [facility] [address] [place], [address] Platelets (Bld) [#/Vol] 248 10*3/uL Normal 150-450 [facility] Comment on above: Performed By: #### L 100.0100, L500.2500 #### [facility] [address] [place], [address] RBC (Bld) [#/Vol] 4.73 10*6/uL Normal 4.6-6.2 [facility] Comment on above: Performed By: #### L 100.0100, L500.2500 #### [facility] [address] [place], [address] RDW SD 45.1 fl High 35.1-43.9 [facility] Comment on above: Performed By: #### L 100.0100, L500.2500 #### [facility] [address] [place], [address] WBC (Bld) [#/Vol] 8.6 10*3/uL Normal 4.4-11.0 [facility] Comment on above: Performed By: #### L 100.0100, L500.2500 #### [facility] [address] [place], [address] Carbon dioxide measurementOr dered By: Timoteo Mckenna on 12-16-2024 CO2 [Moles/Vol] 27.0 mmol/L 21.0-32.0 [facility] Chloride measurementOrdered By: Timoteo Mckenna on 12-16-2024 Chloride [Moles/Vol] 100 mmol/L 98-107 [facility] Emergency Department Summary on 12-16-2024 Emergency Department Summary [facility] Medical Records Department [address] [place] [address] Emergency Department Summary 12/16/24 MR#: [id number] Acct: [id number] Name: RAJAT GUZMÁN Rep #: [id number] : 1935 89 From: Timoteo Mckenna DO [...] fever at home. He denies urinary symptoms. [facility] Medical History Non-smoker History of heart [...] Chest pain, precordial Atherosclerotic heart disease of three affiliated coronary artery without angina pectoris Dyspnea Fatigue [...] Denies rh (more content not included)... Normal [facility] Eosinophil percentageOrdered By: Timoteo Mckenna on 12-16-2024 Eosinophils/100 WBC (Bld) 0.3 % 0-5 [facility] Epithelial cells.squamous LM Ql (Urine sed)Ordered By: Timoteo Mckenna on 12-16-2024 Epithelial cells.squamous LM.HPF (Urine sed) [#/Area] 0 /[HPF] 0-5 [facility] Erythrocyte distribution wid th (RBC) [Ratio]Ordered By: Timoteo Mckenna on 12-16-2024 Erythrocyte distribution width (RBC) [Entitic vol] 45.1 fL High 35.1-43.9 [facility] Erythrocyte distribution wid th ratioOrdered By: [facility] Mckenna on 12-16-2024 Erythrocyte distribution width (RBC) [Ratio] 13.7 % 11.6-14.6 [facility] Estimated glomerular filtrat ion rate (GFR) AmericanOrdered By: Timoteo Mckenna on 12-16-2024 Estimated GFR (MDRD) Amer 111 mL/min >60 [facility] Comment on above: GFR Calc Estimation of creatinine laurel aranceOrdered By: Timoteo Mckenna on 12-16-2024 Estimated Creatinine Clearance Calc 44.07 ml/min [facility] Glomerular filtration rate ( GFR) estimationOrdered By: Timoteo Mckenna on 12-16-2024 Estimated GFR (MDRD) Non-Af Amer 92 mL/min >60 [facility] Comment on above: Non- GFR Calc Glucose Ql (U)Ordered By: Melissa Mckenna on 12-16-2024 Urine Glucose (UA) Normal mg/dl Normal [facility] Glucose measurementOrdered B y: Timoteo Mckenna on 12-16-2024 Glucose [Mass/Vol] 155 mg/dL High 74-106 [facility] Comment on above: Fasting Glucose resu lt greater than or equal to 126 mg/dL suggests DIABETES MELLITUS per A.D.A. criteria. Hematocrit Auto (Bld) [Volum e fraction]Ordered By: Timoteo Mckenna on 12-16-2024 Hematocrit (Bld) [Volume fraction] 42.5 % 40-54 [facility] Hemoglobin measurementOrdere d By: Timoteo Mckenna on 12-16-2024 Hemoglobin (Bld) [Mass/Vol] 13.8 g/dL 13.0-16.5 [facility] Immature granulocytes/100 WB C Auto (Bld)Ordered By: Timoteo Mckenna on 12-16-2024 Immature granulocytes/100 WBC (Bld) 0.200 % 0.0-0.9 [facility] Comment on above: IG% - Immature Granu locytes (promyelocytes, myelocytes and metamyelocytes) > 1% indicates that a LEFT SHIFT is Present. Influenza virus A and B and SARS-CoV-2 (COVID-19) and Respiratory syncytial virus RNAOrdered By: Timoteo Mckenna on 12-16-2024 SARS-CoV-2 (COVID-19) RNA MOHIT+probe Ql (Unsp spec) [facility] Ketones Test strip Ql (U)Ord ered By: Timoteo Mckenna on 12-16-2024 Ketones Ql (U) Negative Negative [facility] Lymphocytes Auto (Unsp spec) [#/Vol]Ordered By: Timoteo Mckenna on 12-16-2024 Lymphocytes (Bld) [#/Vol] 1.31 10*3/uL 0.83-4.51 [facility] Lymphocytes/100 WBC Auto (Un sp spec)Ordered By: Timoteo Mckenna on 12-16-2024 Lymphocytes/100 WBC (Bld) 15.2 % Low 19-41 [facility] M100.678on 12-16-2024 M100.678 SARS-CoV-2 (COVID 19 ) Negative INFLUENZA A Negative INFLUENZA B Negative RSV PCR Negative Normal [facility] Comment on above: Performed By: #### L 501.9927 #### [facility] [address] [place], [place], [id number] MCV (mean corpuscular volume ) determinationOrdered By: Timoteo Mckenna on 12-16-2024 MCV (RBC) [Entitic vol] 89.9 fL 80-94 [facility] Mean corpuscular hemoglobin (MCH) determinationOrdered By: Timoteo Mckenna on 12-16-2024 MCH (RBC) [Entitic mass] 29.2 pg 27.0-32.0 [facility] Mean corpuscular hemoglobin concentration (MCHC) determinationOrdered By: Timoteo Mckenna on 12-16-2024 MCHC (RBC) [Mass/Vol] 32.5 g/dL 32-36 [facility] Mean platelet volume determi nationOrdered By: Timoteo Mckenna on 12-16-2024 Platelet mean volume (Bld) [Entitic vol] 10.6 fL 6.2-12.0 [facility] Microscopic analysis of urin e for red blood cells (RBC)Ordered By: Timoteo Mckenna on 12-16-2024 Urine RBC 0 SEEN /hpf 0-5 [facility] Monocyte percentageOrdered B y: Timoteo Mckenna on 12-16-2024 Monocytes/100 WBC (Bld) 6.1 % 0-10 [facility] Mucus LM Ql (Urine sed)Order ed By: Timoteo Mckenna on 12-16-2024 Mucus Ql (Urine sed) 0 SEEN /hpf [facility] Neutrophil percentageOrdered By: Timoteo Mckenna on 12-16-2024 Neutrophils/100 WBC (Bld) 78.1 % High 47-70 [facility] Nitrite Test strip Ql (U)Ord ered By: Timoteo Mckenna on 12-16-2024 Nitrite Ql (U) Negative Negative [facility] Nucleated red blood cell per centageOrdered By: Timoteo Mckenna on 12-16-2024 Nucleated RBC/100 WBC (Bld) [Ratio] 0 % 0-5 [facility] Platelet countOrdered By: Melissa Mckenna on 12-16-2024 Platelets (Bld) [#/Vol] 248 10*3/uL 150-450 [facility] Potassium measurementOrdered By: Timoteo Mckenna on 12-16-2024 Potassium [Moles/Vol] 3.8 mmol/L 3.5-5.1 [facility] Protein Test strip Ql (U)Ord ered By: Timoteo Mckenna on 12-16-2024 Protein Ql (U) Negative Negative [facility] RBC Auto (Bld) [#/Vol]Ordere d By: Timoteo Mckenna on 12-16-2024 RBC (Bld) [#/Vol] 4.73 10*6/uL 4.6-6.2 [facility] Serum anion gap measurementO rdered By: Timoteo Mckenna on 12-16-2024 Anion gap [Moles/Vol] 8 mmol/L -15 [facility] Serum or plasma calcium alfonso urement (mass/volume)Ordered By: Timoteo Mckenna on 12-16-2024 Calcium [Mass/Vol] 9.9 mg/dL 8.5-10.1 [facility] Serum or plasma creatinine m easurement (mass/volume)Ordered By: Timoteo Mckenna on 12-16-2024 Creatinine [Mass/Vol] 0.84 mg/dL 0.70-1.30 [facility] Comment on above: The validity of the calculated GFR & GFRAA in patients over 70 years has not been determined. Clinical correlation is essential. Serum or plasma urea nitroge n measurement (mass/volume)Ordered By: Timoteo cMkenna on 12-16-2024 Urea nitrogen [Mass/Vol] 16 mg/dL 7-18 [facility] Sodium levelOrdered By: Roxana Mckenna on 12-16-2024 Sodium [Moles/Vol] 135 mmol/L Low 136-145 [facility] Urinalysis, Completeon 12-16 RBC 0 SEEN Normal 0-5 [facility] Comment on above: Order Comment: CLEAN CATCH Performed By: #### L 501.9913 #### [facility] [address] [place], [address] Urine blood detectionOrdered By: Remus Ungmaryann on 12-16-2024 Urine Occult Blood Negative Negative [facility] Urine clarityOrdered By: Rem us Ungur on 12-16-2024 Clarity (U) Clear Clear [facility] Urine color determinationOrd ered By: Remus Ungmaryann on 12-16-2024 Color (U) Straw Yellow [facility] Urine leukocyte esterase det ection by dipstickOrdered By: Remus Clarisa on 12-16-2024 Leukocyte esterase Test strip Ql (U) 25 /ul High Negative [facility] Urine pHOrdered By: Rem Un gur on 12-16-2024 pH (U) 6.5 [pH] 5.0 - 8.0 [facility] Urine sediment bacteria coun t by microscopy (number/high power field)Ordered By: Remus Mckenna on 12-16-2024 Bacteria LM.HPF (Urine sed) [#/Area] 0 /[HPF] None Seen [facility] Urine specific gravity measu rementOrdered By: Remus Clarisa on 12-16-2024 Specific gravity (U) [Rel density] 1.010 1.002-1.03 0 [facility] Urobilinogen Ql (U)Ordered B y: Remus Ungmaryann on 12-16-2024 Urine Urobilinogen Normal mg/dl Normal [facility] White blood cell (WBC) count Ordered By: Remus Ungmaryann on 12-16-2024 WBC (Bld) [#/Vol] 8.6 10*3/uL 4.4-11.0 [facility] White blood cell countOrdere d By: Remus Ungur on 12-16-2024 Urine WBC 0 SEEN /hpf 0-5 [facility] C-reactive protein measureme nt by high sensitivity methodOrdered By: John Mckeon on 12-08-2024 C-Reactive Protein Extended Range < 2.90 mg/L 0.0-3.0 [facility] Comment on above: C-Reactive Protein ( CRP) provides useful information for thediagnosis, therapy and monitoring of inflammatory processesand associated diseases. For the evaluation of Relative Riskfor Cardiovascular Disease, a High Sensitivity CRP (HSCRP)should be ordered. CRPon 12-08-2024 C-REACTIVE PROT < 2.90 Normal 0.0-3.0 [facility] Comment on above: Result Comment: C-Re active Protein (CRP) provides useful information for the diagnosis, therapy and monitoring of inflammatory processes and associated diseases. For the evaluation of Relative Risk for Cardiovascular Disease, a High Sensitivity CRP (HSCRP) should be ordered. Performed By: #### L 100.0100, L500.2500 #### [facility] [address] [place], [address] Erythrocyte Sed Rateon 12-08 SED RATE 8 mm/hr Normal 0-20 [facility] Comment on above: Performed By: #### L 100.0100, L500.2500 #### [facility] [address] [place], [address] Erythrocyte sedimentation ra teOrdered By: John Mckeon on 12-08-2024 ESR (Bld) [Velocity] 8 mm/h 0-20 [facility] Cardiology Visit Reporton Cardiology Visit Report [facility] [place] [facility] [address] [place], [place] [address] OFFICE VISIT Date of Service: 11/10/24 MR#: [id number] Acct: [id number] Name: RAJAT GUZMÁN Stacia Rep #: [id number] : 1935 Provider: Dr. Timoteo Mullins MD Age/Sex: 89/M Location: [facility] Status: Signed HPI HPI History of Present [...] fu PREV AR PT WANTS TO SWITCH Php Mysql Developer Required: No Accompanied by: Self Is patient [...] Chest pain, precordial Atherosclerotic heart disease of three affiliated coronary artery without angina pectoris Dyspnea Fatigue [...] Son De (more content not included)... Normal [facility] CBC W/Diff, Automatedon 11-0 Absolute Lymph 1.64 X10 3/uL Normal 0.83-4.51 [facility] Comment on above: Performed By: #### L 100.0100, L500.2500 #### [facility] [address] [place], [address] Absolute Neut 7.8 X10 3/uL High 2.0-7.7 [facility] Comment on above: Performed By: #### L 100.0100, L500.2500 #### [facility] [address] [place], [address] Basophils/100 WBC (Bld) 0.5 % Normal 0-1 [facility] Comment on above: Performed By: #### L 100.0100, L500.2500 #### [facility] [address] [place], [address] Eosinophils/100 WBC (Bld) 2.3 % Normal 0-5 [facility] Comment on above: Performed By: #### L 100.0100, L500.2500 #### [facility] [address] [place], [address] Erythrocyte distribution width (RBC) [Ratio] 14.9 % High 11.6-14.6 [facility] Comment on above: Performed By: #### L 100.0100, L500.2500 #### [facility] [address] [place], [address] Hematocrit (Bld) [Volume fraction] 36.1 % Low 40-54 [facility] Comment on above: Performed By: #### L 100.0100, L500.2500 #### [facility] [address] [place], [address] Hemoglobin (Bld) [Mass/Vol] 11.5 g/dL Low 13.0-16.5 [facility] Comment on above: Performed By: #### L 100.0100, L500.2500 #### [facility] [address] [place], [address] IG% 0.400 Normal 0.0-0.9 [facility] Comment on above: Result Comment: IG% - Immature Granulocytes (promyelocytes, myelocytes and metamyelocytes) > 1% indicates that a LEFT SHIFT is Present. Performed By: #### L 100.0100, L500.2500 #### [facility] [address] [place], [address] Lymphocytes/100 WBC (Bld) 16.1 % Low 19-41 [facility] Comment on above: Performed By: #### L 100.0100, L500.2500 #### [facility] [address] [place], [address] MCH (RBC) [Entitic mass] 29.3 pg Normal 27.0-32.0 [facility] Comment on above: Performed By: #### L 100.0100, L500.2500 #### [facility] [address] [place], [address] MCHC (RBC) [Mass/Vol] 31.9 g/dL Low 32-36 [facility] Comment on above: Performed By: #### L 100.0100, L500.2500 #### [facility] [address] [place], [address] MCV (RBC) [Entitic vol] 91.9 fL Normal 80-94 [facility] Comment on above: Performed By: #### L 100.0100, L500.2500 #### [facility] [address] [place], [address] Monocytes/100 WBC (Bld) 4.5 % Normal 0-10 [facility] Comment on above: Performed By: #### L 100.0100, L500.2500 #### [facility] [address] [place], [address] Neutrophils/100 WBC (Bld) 76.2 % High 47-70 [facility] Comment on above: Performed By: #### L 100.0100, L500.2500 #### [facility] [address] [place], [address] Nucleated RBC (Bld) [#/Vol] 0 10*3/uL Normal 0-5 [facility] Comment on above: Performed By: #### L 100.0100, L500.2500 #### [facility] [address] [place], [address] Platelet mean volume (Bld) [Entitic vol] 11.6 fL Normal 6.2-12.0 [facility] Comment on above: Performed By: #### L 100.0100, L500.2500 #### [facility] [address] [place], [address] Platelets (Bld) [#/Vol] 247 10*3/uL Normal 150-450 [facility] Comment on above: Performed By: #### L 100.0100, L500.2500 #### [facility] [address] [place], [address] RBC (Bld) [#/Vol] 3.93 10*6/uL Low 4.6-6.2 [facility] Comment on above: Performed By: #### L 100.0100, L500.2500 #### [facility] [address] [place], [address] RDW SD 50.4 fl High 35.1-43.9 [facility] Comment on above: Performed By: #### L 100.0100, L500.2500 #### [facility] [address] [place], [address] WBC (Bld) [#/Vol] 10.2 10*3/uL Normal 4.4-11.0 [facility] Comment on above: Performed By: #### L 100.0100, L500.2500 #### [facility] [address] [place], [address] CRPon 09-07-2024 C-REACTIVE PROT 6.91 mg/L High 0.0-3.0 [facility] Comment on above: Result Comment: C-Re active Protein (CRP) provides useful information for the diagnosis, therapy and monitoring of inflammatory processes and associated diseases. For the evaluation of Relative Risk for Cardiovascular Disease, a High Sensitivity CRP (HSCRP) should be ordered. Performed By: #### L 100.0100, L500.2500 #### [facility] [address] [place], [address] Comprehensive Metabolic Prof ilon 09-07-2024 Albumin [Mass/Vol] 3.7 g/dL Normal 3.2-5.0 [facility] Comment on above: Performed By: #### L 100.0100, L500.2500 #### [facility] [address] [place], [address] Albumin/Globulin [Mass ratio] 0.9 {ratio} Normal 0.9-2.4 [facility] Comment on above: Performed By: #### L 100.0100, L500.2500 #### [facility] [address] [place], [address] ALK P 72 U/L Normal 45-117 [facility] Comment on above: Performed By: #### L 100.0100, L500.2500 #### [facility] [address] [place], [address] ALT [Catalytic activity/Vol] 19 U/L Normal 16-61 [facility] Comment on above: Performed By: #### L 100.0100, L500.2500 #### [facility] [address] [place], [address] AST [Catalytic activity/Vol] 17 U/L Normal 15-37 [facility] Comment on above: Performed By: #### L 100.0100, L500.2500 #### [facility] [address] [place], [address] Bilirubin [Mass/Vol] 0.80 mg/dL Normal 0.20-1.00 [facility] Comment on above: Result Comment: For patients on eltrombopag therapy, use of Dimension [place] TBIL is not recommended. Performed By: #### L 100.0100, L500.2500 #### [facility] [address] [place], [address] BUN/CRE 19.6 RATIO Normal 10-20 [facility] Comment on above: Performed By: #### L 100.0100, L500.2500 #### [facility] [address] [place], [address] CA,Total 8.7 mg/dL Normal 8.5-10.1 [facility] Comment on above: Performed By: #### L 100.0100, L500.2500 #### [facility] [address] [place], [address] Chloride [Moles/Vol] 102 mmol/L Normal 98-107 [facility] Comment on above: Performed By: #### L 100.0100, L500.2500 #### [facility] [address] [place], [address] CO2 [Moles/Vol] 31.0 mmol/L Normal 21.0-32.0 [facility] Comment on above: Performed By: #### L 100.0100, L500.2500 #### [facility] [address] [place], [address] Creatinine [Mass/Vol] 0.87 mg/dL Normal 0.70-1.30 [facility] Comment on above: Result Comment: The validity of the calculated GFR GFRAA in patients over 70 years has not been determined. Clinical correlation is essential. Performed By: #### L 100.0100, L500.2500 #### [facility] [address] [place], [address] EST GFR - AA 107 mL/min Normal >60 [facility] Comment on above: Result Comment: Afri can Iraqi GFR Calc Performed By: #### L 100.0100, L500.2500 #### [facility] [address] [place], [address] GAP 5 Normal 5-15 [facility] Comment on above: Performed By: #### L 100.0100, L500.2500 #### [facility] [address] [place], [address] GFR/1.73 sq M.predicted among non-blacks MDRD (S/P/Bld) [Vol rate/Area] 88 mL/min/{1.73_m2} Normal >60 [facility] Comment on above: Result Comment: Non- GFR Calc Performed By: #### L 100.0100, L500.2500 #### [facility] [address] [place], [address] Globulin (S) [Mass/Vol] 4.1 g/dL Normal 2.2-4.2 [facility] Comment on above: Performed By: #### L 100.0100, L500.2500 #### [facility] [address] [place], [address] Glucose [Mass/Vol] 128 mg/dL High 74-106 [facility] Comment on above: Result Comment: Fast ing Glucose result greater than or equal to 126 mg/dL suggests DIABETES MELLITUS per A.D.A. criteria. Performed By: #### L 100.0100, L500.2500 #### [facility] [address] [place], [address] Potassium [Moles/Vol] 3.1 mmol/L Low 3.5-5.1 [facility] Comment on above: Performed By: #### L 100.0100, L500.2500 #### [facility] [address] [place], [address] Sodium [Moles/Vol] 139 mmol/L Normal 136-145 [facility] Comment on above: Performed By: #### L 100.0100, L500.2500 #### [facility] [address] [place], [address] T PROT 7.8 g/dL Normal 6.4-8.2 [facility] Comment on above: Performed By: #### L 100.0100, L500.2500 #### [facility] [address] [place], [address] Urea nitrogen [Mass/Vol] 17 mg/dL Normal 7-18 [facility] Comment on above: Performed By: #### L 100.0100, L500.2500 #### [facility] [address] [place], [address] Erythrocyte Sed Rateon 09-07 SED RATE 20 mm/hr Normal 0-20 [facility] Comment on above: Performed By: #### L 100.0100, L500.2500 #### [facility] [address] [place], [address] Testosterone, Serum Totalon 09-07-2024 Testosterone [Mass/Vol] ng/dL Normal [facility] Comment on above: Result Comment: CENT RAL 90% REFERENCE RANGES MALE AGE <50 197.44 - 669.58 ng/dL MALE AGE > or = 50 187.72 - 684.19 ng/dL FEMALE AGE <50 8.38 - 35.01 ng/dL FEMALE AGE > or = 50 <7.00 - 35.92 ng/dL Effective as of 05/27/21 Performed By: #### L 100.0100, L500.2500 #### [facility] [address] [place], [address] Thyroid Stim Hormone (TSH)on 09-07-2024 TSH 0.861 uIU/mL Normal 0.358-3.74 0 [facility] Comment on above: Performed By: #### L 100.0100, L500.2500 #### [facility] [address] [place], [address] CRPon 08-03-2024 C-REACTIVE PROT 8.47 mg/L High 0.0-3.0 [facility] Comment on above: Result Comment: C-Re active Protein (CRP) provides useful information for the diagnosis, therapy and monitoring of inflammatory processes and associated diseases. For the evaluation of Relative Risk for Cardiovascular Disease, a High Sensitivity CRP (HSCRP) should be ordered. Performed By: #### L 100.0100, L500.2500 #### [facility] [address] [place], [address] Erythrocyte Sed Rateon 08-03 SED RATE 12 mm/hr Normal 0-20 [facility] Comment on above: Performed By: #### L 100.0100, L500.2500 #### [facility] [address] [place], [address] CT ABDOMEN PELVIS W IV CONTR Nubia 07-10-2024 CT ABDOMEN PELVIS W IV CONTRAST Interpreted By: Sharan Recio, STUDY: CT ABDOMEN PELVIS W IV CONTRAST; 07/10/2024 3:18 pm INDICATION: Signs/Symptoms:PROSTATE CANCER. ,C61 Malignant neoplasm of prostate (Multi) COMPARISON: None. ACCESSION NUMBER(S): [id number] ORDERING CLINICIAN: ASMITA ZAMBRANO TECHNIQUE: CT of [...] Sharan Recio 07/11/2024 6:02 PM Dictation workstation: [id number] [facility] Serum Creatinine AND GFRon 0 07-06-2024 Creatinine [Mass/Vol] 1.03 mg/dL Normal 0.70-1.30 [facility] Comment on above: Result Comment: The validity of the calculated GFR GFRAA in patients over 70 years has not been determined. Clinical correlation is essential. Performed By: #### L 501.1105 #### [facility] [address] [place], [place], [id number] EST GFR - AA 88 mL/min Normal >60 [facility] Comment on above: Result Comment: Afri can Iraqi GFR Calc Performed By: #### L 501.1105 #### [facility] [address] [place], [place], [address] GFR/1.73 sq M.predicted among non-blacks MDRD (S/P/Bld) [Vol rate/Area] 72 mL/min/{1.73_m2} Normal >60 [facility] Comment on above: Result Comment: Non- GFR Calc Performed By: #### L 501.1105 #### [facility] [address] [place], [place], [id number] Surgical pathology studyon 0 06-14-2024 Surgical pathology study Pathology report.total SEE COMMENT Surgical Pathology Case: [id number] Authorizing Provider: Asmita Zambrano MD Collected: 06/14/2024 1245 Ordering Location: [facility] Received: 06/14/2024 1248 Pathologist: Moncho Carrillo MD [...] prostatic origin. PIN4 immunostain cocktail (including p63, [id number] and AMACR) shows loss of basal cells, confirming the diagnosis of adenocarcinoma. B. 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 SEE NOTE. Note: PIN4 immunostain cocktail (including p63, [id number] and AMACR) shows loss of basal cells, [...] is submitted in toto in two cassettes. [facility] AP ASR DISCLAIMER One or more of the reagents used to perform assays on this specimen MAY have contained components considered to be analyte specific reagents (ASR's). ASR's have not been cleared or approved by the U.S. Food and Drug Administration. These assays were developed and their performance characteristics determined by the Department of Pathology at [facility]. The FDA does not require this test to go through premarket FDA review. This test is used for clinical purposes. It should not be regarded as investigational or for research. This laboratory is certified under the Clinical Laboratory Improvement Amendments (CLIA) as qualified to perform high complexity clinical laboratory testing. The assays were performed with appropriate positive and negative controls which stained appropriately. [facility] Urine Cultureon 06-03-2024 [facility] Copy of report sent to Infection Control Printer [id number] 06/03/24 0721 BLUCAS. ESBL Escherichia coli [place] Count >100,000 MARKER A ESBL producing Organism A ESBL Escherichia coli: REACTION Amikacin Islt ALEX 8 S Ampicillin Islt ALEX >=32 R Ampicillin+Sulbac Islt ALEX >=32 R ceFAZolin Islt ALEX >=64 R Cefepime Islt ALEX 16 R cefoTEtan Islt ALXE <=4 S cefTRIAXone Islt ALEX >=64 R [...] S Cefuroxime Islt ALEX >=64 R Normal [facility] Comment on above: Performed By: #### L 501.9940 #### [facility] [address] [place], [address] CBC W/Diff, Automatedon 05-03 Absolute Lymph 1.36 X10 3/uL Normal 0.83-4.51 [facility] Comment on above: Performed By: #### L 500.4050, L100.0100, L101.9900, L501.6710 #### [facility] [address] [facility] [place], [address] Absolute Neut 5.8 X10 3/uL Normal 2.0-7.7 [facility] Comment on above: Performed By: #### L 500.4050, L100.0100, L101.9900, L501.6710 #### [facility] [address] [place], [address] Basophils/100 WBC (Bld) 0.5 % Normal 0-1 [facility] Comment on above: Performed By: #### L 500.4050, L100.0100, L101.9900, L501.6710 #### [facility] [address] [place], [address] Eosinophils/100 WBC (Bld) 0.1 % Normal 0-5 [facility] Comment on above: Performed By: #### L 500.4050, L100.0100, L101.9900, L501.6710 #### [facility] [address] [place], [address] Erythrocyte distribution width (RBC) [Ratio] 14.0 % Normal 11.6-14.6 [facility] Comment on above: Performed By: #### L 500.4050, L100.0100, L101.9900, L501.6710 #### [facility] [address] [place], [address] Hematocrit (Bld) [Volume fraction] 35.5 % Low 40-54 [facility] Comment on above: Performed By: #### L 500.4050, L100.0100, L101.9900, L501.6710 #### [facility] [address] [place], [address] Hemoglobin (Bld) [Mass/Vol] 11.5 g/dL Low 13.0-16.5 [facility] Comment on above: Performed By: #### L 500.4050, L100.0100, L101.9900, L501.6710 #### [facility] [address] [place], [address] IG% 0.400 Normal 0.0-0.9 [facility] Comment on above: Result Comment: IG% - Immature Granulocytes (promyelocytes, myelocytes and metamyelocytes) > 1% indicates that a LEFT SHIFT is Present. Performed By: #### L 500.4050, L100.0100, L101.9900, L501.6710 #### [facility] [address] [place], [address] Lymphocytes/100 WBC (Bld) 16.6 % Low 19-41 [facility] Comment on above: Performed By: #### L 500.4050, L100.0100, L101.9900, L501.6710 #### [facility] [address] [place], [address] MCH (RBC) [Entitic mass] 28.6 pg Normal 27.0-32.0 [facility] Comment on above: Performed By: #### L 500.4050, L100.0100, L101.9900, L501.6710 #### [facility] [address] [place], [address] MCHC (RBC) [Mass/Vol] 32.4 g/dL Normal 32-36 [facility] Comment on above: Performed By: #### L 500.4050, L100.0100, L101.9900, L501.6710 #### [facility] [address] [place], [address] MCV (RBC) [Entitic vol] 88.3 fL Normal 80-94 [facility] Comment on above: Performed By: #### L 500.4050, L100.0100, L101.9900, L501.6710 #### [facility] [address] [place], [address] Monocytes/100 WBC (Bld) 12.1 % High 0-10 [facility] Comment on above: Performed By: #### L 500.4050, L100.0100, L101.9900, L501.6710 #### [facility] [address] [place], [address] Neutrophils/100 WBC (Bld) 70.3 % High 47-70 [facility] Comment on above: Performed By: #### L 500.4050, L100.0100, L101.9900, L501.6710 #### [facility] [address] [place], [address] Nucleated RBC (Bld) [#/Vol] 0 10*3/uL Normal 0-5 [facility] Comment on above: Performed By: #### L 500.4050, L100.0100, L101.9900, L501.6710 #### [facility] [address] [place], [address] Platelet mean volume (Bld) [Entitic vol] 12.4 fL High 6.2-12.0 [facility] Comment on above: Performed By: #### L 500.4050, L100.0100, L101.9900, L501.6710 #### [facility] [address] [place], [address] Platelets (Bld) [#/Vol] 214 10*3/uL Normal 150-450 [facility] Comment on above: Performed By: #### L 500.4050, L100.0100, L101.9900, L501.6710 #### [facility] [address] [place], [address] RBC (Bld) [#/Vol] 4.02 10*6/uL Low 4.6-6.2 [facility] Comment on above: Performed By: #### L 500.4050, L100.0100, L101.9900, L501.6710 #### [facility] [address] [place], [address] RDW SD 45.4 fl High 35.1-43.9 [facility] Comment on above: Performed By: #### L 500.4050, L100.0100, L101.9900, L501.6710 #### [facility] [address] [place], [address] WBC (Bld) [#/Vol] 8.2 10*3/uL Normal 4.4-11.0 [facility] Comment on above: Performed By: #### L 500.4050, L100.0100, L101.9900, L501.6710 #### [facility] [address] [place], [address] CRPon 05-30-2024 C-REACTIVE PROT 97.30 mg/L High 0.0-3.0 [facility] Comment on above: Order Comment: URINE SUPPLIES GIVEN,PT UTV. RANGLE Result Comment: C-Re active Protein (CRP) provides useful information for the diagnosis, therapy and monitoring of inflammatory processes and associated diseases. For the evaluation of Relative Risk for Cardiovascular Disease, a High Sensitivity CRP (HSCRP) should be ordered. Performed By: #### L 500.4050, L100.0100, L101.9900, L501.6710 #### [facility] [address] [place], [address] Comprehensive Metabolic Prof ilon 05-30-2024 Albumin [Mass/Vol] 3.0 g/dL Low 3.2-5.0 [facility] Comment on above: Order Comment: URINE SUPPLIES GIVEN,PT UTV. RANGLE Performed By: #### L 500.4050, L100.0100, L101.9900, L501.6710 #### [facility] [address] [place], [address] Albumin/Globulin [Mass ratio] 0.7 {ratio} Low 0.9-2.4 [facility] Comment on above: Order Comment: URINE SUPPLIES GIVEN,PT UTV. RANGLE Performed By: #### L 500.4050, L100.0100, L101.9900, L501.6710 #### [facility] [address] [place], [address] ALK P 63 U/L Normal 45-117 [facility] Comment on above: Order Comment: URINE SUPPLIES GIVEN,PT UTV. RANGLE Performed By: #### L 500.4050, L100.0100, L101.9900, L501.6710 #### [facility] [address] [place], [address] ALT [Catalytic activity/Vol] 11 U/L Low 16-61 [facility] Comment on above: Order Comment: URINE SUPPLIES GIVEN,PT UTV. RANGLE Performed By: #### L 500.4050, L100.0100, L101.9900, L501.6710 #### [facility] [address] [place], [address] AST [Catalytic activity/Vol] 24 U/L Normal 15-37 [facility] Comment on above: Order Comment: URINE SUPPLIES GIVEN,PT UTV. RANGLE Performed By: #### L 500.4050, L100.0100, L101.9900, L501.6710 #### [facility] [address] [place], [address] Bilirubin [Mass/Vol] 1.60 mg/dL High 0.20-1.00 [facility] Comment on above: Order Comment: URINE SUPPLIES GIVEN,PT UTV. RANGLE Result Comment: For patients on eltrombopag therapy, use of Dimension [place] TBIL is not recommended. Performed By: #### L 500.4050, L100.0100, L101.9900, L501.6710 #### [facility] [address] [place], [address] BUN/CRE 18.2 RATIO Normal 10-20 [facility] Comment on above: Order Comment: URINE SUPPLIES GIVEN,PT UTV. RANGLE Performed By: #### L 500.4050, L100.0100, L101.9900, L501.6710 #### [facility] [address] [place], [address] CA,Total 8.6 mg/dL Normal 8.5-10.1 [facility] Comment on above: Order Comment: URINE SUPPLIES GIVEN,PT UTV. RANGLE Performed By: #### L 500.4050, L100.0100, L101.9900, L501.6710 #### [facility] [address] [place], [address] Chloride [Moles/Vol] 102 mmol/L Normal 98-107 [facility] Comment on above: Order Comment: URINE SUPPLIES GIVEN,PT UTV. RANGLE Performed By: #### L 500.4050, L100.0100, L101.9900, L501.6710 #### [facility] [address] [place], [address] CO2 [Moles/Vol] 23.0 mmol/L Normal 21.0-32.0 [facility] Comment on above: Order Comment: URINE SUPPLIES GIVEN,PT UTV. RANGLE Performed By: #### L 500.4050, L100.0100, L101.9900, L501.6710 #### [facility] [address] [place], [address] Creatinine [Mass/Vol] 1.21 mg/dL Normal 0.70-1.30 [facility] Comment on above: Order Comment: URINE SUPPLIES GIVEN,PT UTV. RANGLE Result Comment: The validity of the calculated GFR GFRAA in patients over 70 years has not been determined. Clinical correlation is essential. Performed By: #### L 500.4050, L100.0100, L101.9900, L501.6710 #### [facility] [address] [place], [address] EST GFR - AA 73 mL/min Normal >60 [facility] Comment on above: Order Comment: URINE SUPPLIES GIVEN,PT UTV. RANGLE Result Comment: Afri can Iraqi GFR Calc Performed By: #### L 500.4050, L100.0100, L101.9900, L501.6710 #### [facility] [address] [place], [address] GAP 10 Normal 5-15 [facility] Comment on above: Order Comment: URINE SUPPLIES GIVEN,PT UTV. RANGLE Performed By: #### L 500.4050, L100.0100, L101.9900, L501.6710 #### [facility] [address] [place], [address] GFR/1.73 sq M.predicted among non-blacks MDRD (S/P/Bld) [Vol rate/Area] 60 mL/min/{1.73_m2} Normal >60 [facility] Comment on above: Order Comment: URINE SUPPLIES GIVEN,PT UTV. RANGLE Result Comment: Non- GFR Calc Performed By: #### L 500.4050, L100.0100, L101.9900, L501.6710 #### [facility] [address] [place], [address] Globulin (S) [Mass/Vol] 4.4 g/dL High 2.2-4.2 [facility] Comment on above: Order Comment: URINE SUPPLIES GIVEN,PT UTV. RANGLE Performed By: #### L 500.4050, L100.0100, L101.9900, L501.6710 #### [facility] [address] [place], [address] Glucose [Mass/Vol] 137 mg/dL High 74-106 [facility] Comment on above: Order Comment: URINE SUPPLIES GIVEN,PT UTV. RANGLE Result Comment: Fast ing Glucose result greater than or equal to 126 mg/dL suggests DIABETES MELLITUS per A.D.A. criteria. Performed By: #### L 500.4050, L100.0100, L101.9900, L501.6710 #### [facility] [address] [place], [address] Potassium [Moles/Vol] 3.1 mmol/L Low 3.5-5.1 [facility] Comment on above: Order Comment: URINE SUPPLIES GIVEN,PT UTV. RANGLE Performed By: #### L 500.4050, L100.0100, L101.9900, L501.6710 #### [facility] [address] [place], [address] Sodium [Moles/Vol] 135 mmol/L Low 136-145 [facility] Comment on above: Order Comment: URINE SUPPLIES GIVEN,PT UTV. RANGLE Performed By: #### L 500.4050, L100.0100, L101.9900, L501.6710 #### [facility] [address] [place], [address] T PROT 7.4 g/dL Normal 6.4-8.2 [facility] Comment on above: Order Comment: URINE SUPPLIES GIVEN,PT UTV. RANGLE Performed By: #### L 500.4050, L100.0100, L101.9900, L501.6710 #### [facility] [address] [place], [address] Urea nitrogen [Mass/Vol] 22 mg/dL High 7-18 [facility] Comment on above: Order Comment: URINE SUPPLIES GIVEN,PT UTV. RANGLE Performed By: #### L 500.4050, L100.0100, L101.9900, L501.6710 #### [facility] [address] [place], [address] Erythrocyte Sed Rateon 07-30 -2024 SED RATE 18 mm/hr Normal 0-20 [facility] Comment on above: Performed By: #### L 500.4050, L100.0100, L101.9900, L501.6710 #### [facility] [address] [place], [address] Cardiology Visit Reporton Cardiology Visit Report [facility] 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 Normal [facility] PSA,Total- Diagnosticon 05-01 PSA, DIAGNOSTIC 19.90 ng/mL High 0.0-4.0 [facility] Comment on above: Result Comment: This test was performed using the TPSA assay method for the [employer] chemistry system. Values obtained with different assay methods cannot be used interchangably. When changing PSA assays in the course of monitoring a patient, additional sequential testing should be carried out to confirm baseline values. Performed By: #### L 501.9940, L501.1105 #### [facility] [address] [place], [place], [id number] Serum Creatinine AND GFRon 0 05-17-2024 Creatinine [Mass/Vol] 0.92 mg/dL Normal 0.70-1.30 [facility] Comment on above: Result Comment: The validity of the calculated GFR GFRAA in patients over 70 years has not been determined. Clinical correlation is essential. Performed By: #### L 501.9940, L501.1105 #### [facility] [address] [place], [address] EST GFR - AA 100 mL/min Normal >60 [facility] Comment on above: Result Comment: Afri can Iraqi GFR Calc Performed By: #### L 501.9940, L501.1105 #### [facility] [address] [place], [place], [address] GFR/1.73 sq M.predicted among non-blacks MDRD (S/P/Bld) [Vol rate/Area] 83 mL/min/{1.73_m2} Normal >60 [facility] Comment on above: Result Comment: Non- GFR Calc Performed By: #### L 501.9940, L501.1105 #### [facility] [address] [place], [address] Basophil percentageOrdered B y: John Mckeon on 11-26-2023 Chloride [Moles/Vol] 105 mmol/L 98-107 [facility] Glucose [Mass/Vol] 102 mg/dL 74-106 [facility] Comment on above: Fasting Glucose resu lt from 100 to 125 mg/dL suggests IMPAIRED HOMEOSTASIS per A.D.A. criteria. Potassium [Moles/Vol] 4.0 mmol/L 3.5-5.1 [facility] Sodium [Moles/Vol] 137 mmol/L 136-145 [facility] - Chemistry and C hemistry - challengeOrdered By: John Mckeon on 11-26-2023 CO2 [Moles/Vol] 26.0 mmol/L 21.0-32.0 [facility] Magnesium [Mass/Vol] 2.4 mg/dL 1.6-2.6 [facility] Urea nitrogen/Creatinine [Mass ratio] 16.8 mg/mg 10-20 [facility] No Panel InformationOrdered By: John Mckeon on 11-26-2023 Estimated GFR (MDRD) Amer 112 mL/min >60 [facility] Comment on above: GFR Calc Estimated GFR (MDRD) Non-Af Amer 93 mL/min >60 [facility] Comment on above: Non- GFR Calc Serum or plasma calcium alfonso urement (mass/volume)Ordered By: John Mckeon on 11-26-2023 Calcium [Mass/Vol] 9.1 mg/dL 8.5-10.1 [facility] Serum or plasma creatinine m easurement (mass/volume)Ordered By: John Mckeon on 11-26-2023 Creatinine [Mass/Vol] 0.83 mg/dL 0.70-1.30 [facility] Comment on above: The validity of the calculated GFR & GFRAA in patients over 70 years has not been determined. Clinical correlation is essential. Serum or plasma urea nitroge n measurement (mass/volume)Ordered By: John Mckeon on 11-26-2023 Urea nitrogen [Mass/Vol] 14 mg/dL 7-18 [facility] Thin prep Papanicolaou smear with manual screeningOrdered By: John Mckeon on 11-26-2023 Thin prep Papanicolaou smear with manual screening 6 - [facility] INR in Blood by Coagulation assayOrdered By: Zacarias Valdes on 10-12-2023 INR Coag (Bld) [Relative time] 1.0 {INR} [facility] - CoagulationOrde red By: Zacarias Valdes on 10-12-2023 aPTT Coag (Bld) [Time] 28.7 s 24.1-36.2 [facility] PT Coag (PPP) [Time] 12.9 s 11.7-14.9 [facility] Culture, urineOrdered By: Nestor Mckeon on 09-15-2023 Bacteria identified Cx Nom (U) GPC Poss Enterococcus sp [facility] Basophil percentageOrdered B y: Manisha Varela on 09-06-2023 Chloride [Moles/Vol] 108 mmol/L 98-107 [facility] Glucose [Mass/Vol] 200 mg/dL 74-106 [facility] Comment on above: Glucose result great er than or equal to 200 mg/dLsuggests DIABETES MELLITUS per A.D.A. criteria. Potassium [Moles/Vol] 3.3 mmol/L 3.5-5.1 [facility] Sodium [Moles/Vol] 139 mmol/L 136-145 [facility] - Chemistry and C hemistry - challengeOrdered By: Manisha Varela on 09-06-2023 CO2 [Moles/Vol] 24.0 mmol/L 21.0-32.0 [facility] Urea nitrogen/Creatinine [Mass ratio] 23.3 mg/mg 10-20 [facility] No Panel InformationOrdered By: Manisha Varela on 09-06-2023 Estimated Creatinine Clearance Calc 40.32 ml/min [facility] Estimated GFR (MDRD) Amer 102 mL/min >60 [facility] Comment on above: GFR Calc Estimated GFR (MDRD) Non-Af Amer 84 mL/min >60 [facility] Comment on above: Non- GFR Calc Serum or plasma calcium alfonso urement (mass/volume)Ordered By: Manisha Varela on 09-06-2023 Calcium [Mass/Vol] 8.2 mg/dL 8.5-10.1 [facility] Serum or plasma creatinine m easurement (mass/volume)Ordered By: Manisha Varela on 09-06-2023 Creatinine [Mass/Vol] 0.90 mg/dL 0.70-1.30 [facility] Comment on above: The validity of the calculated GFR & GFRAA in patients over 70 years has not been determined. Clinical correlation is essential. Serum or plasma urea nitroge n measurement (mass/volume)Ordered By: Manisha Varela on 09-06-2023 Urea nitrogen [Mass/Vol] 21 mg/dL 7-18 [facility] Thin prep Papanicolaou smear with manual screeningOrdered By: Manisha Varela on 09-06-2023 Thin prep Papanicolaou smear with manual screening 7 5-15 [facility] Absolute lymphocyte countOrd ered By: Manisha Varela on 09-05-2023 Lymphocytes Auto (Unsp spec) [#/Vol] 1.75 10*3/uL 0.83-4.51 [facility] Basophil percentageOrdered B y: Manisha Varela on 09-05-2023 Basophils/100 WBC (Bld) 0.5 % 0-1 [facility] Chloride [Moles/Vol] 106 mmol/L 98-107 [facility] Eosinophils/100 WBC (Bld) 1.9 % 0-5 [facility] Glucose [Mass/Vol] 64 mg/dL 74-106 [facility] Neutrophils (Bld) [#/Vol] 5.3 10*3/uL 2.0-7.7 [facility] Neutrophils/100 WBC (Bld) 64.8 % 47-70 [facility] Potassium [Moles/Vol] 4.0 mmol/L 3.5-5.1 [facility] Sodium [Moles/Vol] 137 mmol/L 136-145 [facility] WBC (Bld) [#/Vol] 8.2 10*3/uL 4.4-11.0 [facility] Blood erythrocytes count (nu mber/volume)Ordered By: Manisha Varela on 09-05-2023 RBC (Bld) [#/Vol] 3.50 10*6/uL 4.6-6.2 [facility] Blood hemoglobin measurement (mass/volume)Ordered By: Manisha Varela on 09-05-2023 Hemoglobin (Bld) [Mass/Vol] 10.3 g/dL 13.0-16.5 [facility] Blood lymphocytes/100 leukoc ytesOrdered By: Manisha Varela on 09-05-2023 Lymphocytes/100 WBC (Bld) 21.3 % 19-41 [facility] Blood monocytes/100 leukocyt esOrdered By: Manisha Varela on 09-05-2023 Monocytes/100 WBC (Bld) 11.3 % 0-10 [facility] Blood platelet mean volumeOr dered By: Manisha Varela on 09-05-2023 Platelet mean volume (Bld) [Entitic vol] 11.8 fL 6.2-12.0 [facility] Determination of erythrocyte mean corpuscular volume (MCV)Ordered By: Manisha Varela on 09-05-2023 MCV (RBC) [Entitic vol] 93.4 fL 80-94 [facility] Hematocrit Auto (Bld) [Volum e fraction]Ordered By: Manisha Varela on 09-05-2023 Hematocrit (Bld) [Volume fraction] 32.7 % 40-54 [facility] Laboratory - Chemistry and C hemistry - challengeOrdered By: Manisha Varela on 09-05-2023 CO2 [Moles/Vol] 19.0 mmol/L 21.0-32.0 [facility] Urea nitrogen/Creatinine [Mass ratio] 28.1 mg/mg 10-20 [facility] Laboratory - Hematology and Cell countsOrdered By: Manisha Varela on 09-05-2023 Erythrocyte distribution width (RBC) [Entitic vol] 49.9 fL 35.1-43.9 [facility] Erythrocyte distribution width (RBC) [Ratio] 14.6 % 11.6-14.6 [facility] Immature granulocytes/100 WBC (Bld) 0.200 % 0.0-0.9 [facility] Comment on above: IG% - Immature Granu locytes (promyelocytes, myelocytes and metamyelocytes) > 1% indicates that a LEFT SHIFT is Present. MCH (RBC) [Entitic mass] 29.4 pg 27.0-32.0 [facility] Nucleated RBC/100 WBC (Bld) [Ratio] 0 % 0-5 [facility] MCHC Auto (RBC) [Mass/Vol]Or dered By: Manisha Varela on 09-05-2023 MCHC (RBC) [Mass/Vol] 31.5 g/dL 32-36 [facility] No Panel InformationOrdered By: Manisha Varela on 09-05-2023 Estimated Creatinine Clearance Calc 36.29 ml/min [facility] Estimated GFR (MDRD) Amer 91 mL/min >60 [facility] Comment on above: GFR Calc Estimated GFR (MDRD) Non-Af Amer 75 mL/min >60 [facility] Comment on above: Non- GFR Calc Platelets bldOrdered By: Andrew Varela on 09-05-2023 Platelets (Bld) [#/Vol] 183 10*3/uL 150-450 [facility] Serum or plasma calcium alfonso urement (mass/volume)Ordered By: Manisha Varela on 09-05-2023 Calcium [Mass/Vol] 8.4 mg/dL 8.5-10.1 [facility] Serum or plasma creatinine m easurement (mass/volume)Ordered By: Manisha Varela on 09-05-2023 Creatinine [Mass/Vol] 1.00 mg/dL 0.70-1.30 [facility] Comment on above: The validity of the calculated GFR & GFRAA in patients over 70 years has not been determined. Clinical correlation is essential. Serum or plasma urea nitroge n measurement (mass/volume)Ordered By: Manisha Varela on 09-05-2023 Urea nitrogen [Mass/Vol] 28 mg/dL 7-18 [facility] Thin prep Papanicolaou smear with manual screeningOrdered By: Manisha Varela on 09-05-2023 Thin prep Papanicolaou smear with manual screening 12 5-15 [facility] Absolute lymphocyte countOrd ered By: Robbi Hopkins on 09-04-2023 Lymphocytes Auto (Unsp spec) [#/Vol] 1.47 10*3/uL 0.83-4.51 [facility] Basophil percentageOrdered B y: Robbi Hopkins on 09-04-2023 Basophils/100 WBC (Bld) 0.4 % 0-1 [facility] Bilirubin [Mass/Vol] 1.80 mg/dL 0.20-1.00 [facility] Comment on above: For patients on eltr ombopag therapy, use of Dimension [place] TBIL is not recommended. Chloride [Moles/Vol] 101 mmol/L 98-107 [facility] Eosinophils/100 WBC (Bld) 0.2 % 0-5 [facility] Glucose [Mass/Vol] 94 mg/dL 74-106 [facility] Neutrophils (Bld) [#/Vol] 10.3 10*3/uL 2.0-7.7 [facility] Neutrophils/100 WBC (Bld) 77.7 % 47-70 [facility] Potassium [Moles/Vol] 4.2 mmol/L 3.5-5.1 [facility] Protein [Mass/Vol] 7.2 g/dL 6.4-8.2 [facility] Sodium [Moles/Vol] 134 mmol/L 136-145 [facility] WBC (Bld) [#/Vol] 13.2 10*3/uL 4.4-11.0 [facility] Basophil percentage 5-10 SEEN /hpf 0-5 [facility] Bilirubin Test strip Ql (U)O rdered By: Robbi Hopkins on 09-04-2023 Bilirubin Ql (U) Negative Negative [facility] Blood erythrocytes count (nu mber/volume)Ordered By: Robbi Hopkins on 09-04-2023 RBC (Bld) [#/Vol] 3.84 10*6/uL 4.6-6.2 [facility] Blood hemoglobin measurement (mass/volume)Ordered By: Robbi Hopkins on 09-04-2023 Hemoglobin (Bld) [Mass/Vol] 11.3 g/dL 13.0-16.5 [facility] Blood lymphocytes/100 leukoc ytesOrdered By: Robbi Hopkins on 09-04-2023 Lymphocytes/100 WBC (Bld) 11.1 % 19-41 [facility] Blood monocytes/100 leukocyt esOrdered By: Robbi Hopkins on 09-04-2023 Monocytes/100 WBC (Bld) 10.2 % 0-10 [facility] Blood platelet mean volumeOr dered By: Robbi Hopkins on 09-04-2023 Platelet mean volume (Bld) [Entitic vol] 11.7 fL 6.2-12.0 [facility] Culture, urineOrdered By: Umer Hopkins on 09-04-2023 Bacteria identified Cx Nom (U) Staphylococcus lugdunensis [facility] Determination of erythrocyte mean corpuscular volume (MCV)Ordered By: Robbi Hopkins on 09-04-2023 MCV (RBC) [Entitic vol] 93.0 fL 80-94 [facility] Hematocrit Auto (Bld) [Volum e fraction]Ordered By: Robbi Hopkins on 09-04-2023 Hematocrit (Bld) [Volume fraction] 35.7 % 40-54 [facility] Ketones Test strip Ql (U)Ord ered By: Robbi Hopkins on 09-04-2023 Ketones Ql (U) 50 mg/dl Negative [facility] Laboratory - Chemistry and C hemistry - challengeOrdered By: Robbi Hopkins on 09-04-2023 ALP [Catalytic activity/Vol] 54 U/L 45-117 [facility] ALT [Catalytic activity/Vol] 11 U/L 16-61 [facility] CO2 [Moles/Vol] 17.0 mmol/L 21.0-32.0 [facility] Globulin (S) [Mass/Vol] 3.8 g/dL 2.2-4.2 [facility] Lipase [Catalytic activity/Vol] 11 U/L 13-75 [facility] Comment on above: Please note:LIPASE r evised reference range effective 23. New Lipase methodology. Expected to produce lower values than the previous assay method. NEW Reference Range: 13 - 75 U/L Urea nitrogen/Creatinine [Mass ratio] 25.2 mg/mg 10-20 [facility] Laboratory - Hematology and Cell countsOrdered By: Robbi Hopkins on 09-04-2023 Erythrocyte distribution width (RBC) [Entitic vol] 49.5 fL 35.1-43.9 [facility] Erythrocyte distribution width (RBC) [Ratio] 14.6 % 11.6-14.6 [facility] Immature granulocytes/100 WBC (Bld) 0.400 % 0.0-0.9 [facility] Comment on above: IG% - Immature Granu locytes (promyelocytes, myelocytes and metamyelocytes) > 1% indicates that a LEFT SHIFT is Present. MCH (RBC) [Entitic mass] 29.4 pg 27.0-32.0 [facility] Nucleated RBC/100 WBC (Bld) [Ratio] 0 % 0-5 [facility] MCHC Auto (RBC) [Mass/Vol]Or dered By: Robbi Hopkins on 09-04-2023 MCHC (RBC) [Mass/Vol] 31.7 g/dL 32-36 [facility] Mucus LM Ql (Urine sed)Order ed By: Robbi Hopkins on 09-04-2023 Mucus Ql (Urine sed) 0 SEEN /hpf [facility] Nitrite Test strip Ql (U)Ord ered By: Robbi Hopkins on 09-04-2023 Nitrite Ql (U) Positive Negative [facility] No Panel InformationOrdered By: Robbi Hopkins on 09-04-2023 Estimated Creatinine Clearance Calc 27.02 ml/min [facility] Estimated GFR (MDRD) Amer 62 mL/min >60 [facility] Comment on above: GFR Calc Estimated GFR (MDRD) Non-Af Amer 51 mL/min >60 [facility] Comment on above: Non- GFR Calc Platelets bldOrdered By: Coco Hopkins on 09-04-2023 Platelets (Bld) [#/Vol] 208 10*3/uL 150-450 [facility] Protein Test strip Ql (U)Ord ered By: Robbi Hopkins on 09-04-2023 Protein Ql (U) 15 mg/dl Negative [facility] Serum or plasma albumin alfonso urement (mass/volume)Ordered By: Robbi Hopkins on 09-04-2023 Albumin [Mass/Vol] 3.4 g/dL 3.2-5.0 [facility] Serum or plasma albumin/glob ulin mass ratioOrdered By: Robbi Hopkins on 09-04-2023 Albumin/Globulin [Mass ratio] 0.9 {ratio} 0.9-2.4 [facility] Serum or plasma calcium alfonso urement (mass/volume)Ordered By: Robbi Hopkins on 09-04-2023 Calcium [Mass/Vol] 8.7 mg/dL 8.5-10.1 [facility] Serum or plasma creatinine m easurement (mass/volume)Ordered By: Robbi Hopkins on 09-04-2023 Creatinine [Mass/Vol] 1.39 mg/dL 0.70-1.30 [facility] Comment on above: The validity of the calculated GFR & GFRAA in patients over 70 years has not been determined. Clinical correlation is essential. Serum or plasma urea nitroge n measurement (mass/volume)Ordered By: Robbi Hopkins on 09-04-2023 Urea nitrogen [Mass/Vol] 35 mg/dL 7-18 [facility] Squamous epithelial cells de tection in urine sediment by light microscopyOrdered By: Robbi Hopkins on 09-04-2023 Epithelial cells.squamous LM Ql (Urine sed) 0 SEEN /hpf 0-5 [facility] Thin prep Papanicolaou smear with manual screeningOrdered By: Robbi Hopkins on 09-04-2023 Thin prep Papanicolaou smear with manual screening 10 U/L 15-37 [facility] Thin prep Papanicolaou smear with manual screening 16 5-15 [facility] Urine blood detectionOrdered By: Robbi Hopkins on 09-04-2023 RBC Ql (U) 150 /ul Negative [facility] RBC Ql (U) 0-5 SEEN /hpf 0-5 [facility] Urine clarityOrdered By: Coco Hopkins on 09-04-2023 Clarity (U) Sl. Cloudy Clear [facility] Urine color determinationOrd ered By: Robbi Hopkins on 09-04-2023 Color (U) Yellow Yellow [facility] Urine glucose detectionOrder ed By: Robbi Hopkins on 09-04-2023 Glucose Ql (U) Normal mg/dl Normal [facility] Urine leukocyte esterase det ection by dipstickOrdered By: Robbi Hopkins on 09-04-2023 Leukocyte esterase Test strip Ql (U) 25 /ul Negative [facility] Urine pHOrdered By: Robbi delgadillo on 09-04-2023 pH (U) 6.0 [pH] 5.0 - 8.0 [facility] Urine sediment bacteria coun t by microscopy (number/high power field)Ordered By: Robbi Hopkins on 09-04-2023 Bacteria LM.HPF (Urine sed) [#/Area] 1 /[HPF] None Seen [facility] Urine specific gravity measu rementOrdered By: Robbi Hopikns on 09-04-2023 Specific gravity (U) [Rel density] 1.020 1.002-1.03 0 [facility] Urobilinogen Auto test strip Ql (U)Ordered By: Robbi Hopkins on 09-04-2023 Urobilinogen Ql (U) Normal mg/dl Normal [facility] No Panel InformationOrdered By: Faisal Barth on 08-31-2023 Prostate Specific Antigen Total 18.80 ng/mL 0.0-4.0 [facility] Comment on above: This test was perfor med using the TPSA assay method for theDimension chemistry system. Values obtained with differentassay methods cannot be used interchangably.When changing PSA assays in the course of monitoring apatient, additional sequential testing should be carriedout to confirm baseline values. Basophil percentageOrdered B y: Cynthia Bowen on 07-20-2023 Chloride [Moles/Vol] 106 mmol/L 98-107 [facility] Glucose [Mass/Vol] 114 mg/dL 74-106 [facility] Comment on above: Fasting Glucose resu lt from 100 to 125 mg/dL suggests IMPAIRED HOMEOSTASIS per A.D.A. criteria. Potassium [Moles/Vol] 4.1 mmol/L 3.5-5.1 [facility] Sodium [Moles/Vol] 139 mmol/L 136-145 [facility] Laboratory - Chemistry and C hemistry - challengeOrdered By: Cynthia Bowen on 07-20-2023 CO2 [Moles/Vol] 30.0 mmol/L 21.0-32.0 [facility] Urea nitrogen/Creatinine [Mass ratio] 16.6 mg/mg 10-20 [facility] No Panel InformationOrdered By: Cynthia Bowen on 07-20-2023 Estimated GFR (MDRD) Amer 95 mL/min >60 [facility] Comment on above: GFR Calc Estimated GFR (MDRD) Non-Af Amer 78 mL/min >60 [facility] Comment on above: Non- GFR Calc Serum or plasma calcium alfonso urement (mass/volume)Ordered By: Cynthia Bowen on 07-20-2023 Calcium [Mass/Vol] 8.5 mg/dL 8.5-10.1 [facility] Serum or plasma creatinine m easurement (mass/volume)Ordered By: Cynthia Bowen on 07-20-2023 Creatinine [Mass/Vol] 0.97 mg/dL 0.70-1.30 [facility] Comment on above: The validity of the calculated GFR & GFRAA in patients over 70 years has not been determined. Clinical correlation is essential. Serum or plasma urea nitroge n measurement (mass/volume)Ordered By: Cynthia Bowen on 07-20-2023 Urea nitrogen [Mass/Vol] 16 mg/dL 7-18 [facility] Thin prep Papanicolaou smear with manual screeningOrdered By: Cynthia Bowen on 07-20-2023 Thin prep Papanicolaou smear with manual screening 3 5-15 [facility] Basophil percentageOrdered B y: Cynthia Bowen on 07-09-2023 Chloride [Moles/Vol] 106 mmol/L 98-107 [facility] Glucose [Mass/Vol] 111 mg/dL 74-106 [facility] Comment on above: Fasting Glucose resu lt from 100 to 125 mg/dL suggests IMPAIRED HOMEOSTASIS per A.D.A. criteria. Potassium [Moles/Vol] 4.0 mmol/L 3.5-5.1 [facility] Sodium [Moles/Vol] 139 mmol/L 136-145 [facility] WBC (Bld) [#/Vol] 6.8 10*3/uL 4.4-11.0 [facility] Blood erythrocytes count (nu mber/volume)Ordered By: Cynthia Bowen on 07-09-2023 RBC (Bld) [#/Vol] 4.37 10*6/uL 4.6-6.2 [facility] Blood hemoglobin measurement (mass/volume)Ordered By: Cynthia Bowen on 07-09-2023 Hemoglobin (Bld) [Mass/Vol] 12.8 g/dL 13.0-16.5 [facility] Blood platelet mean volumeOr dered By: Cynthia Bowen on 07-09-2023 Platelet mean volume (Bld) [Entitic vol] 11.2 fL 6.2-12.0 [facility] Determination of erythrocyte mean corpuscular volume (MCV)Ordered By: Cynthia Bowen on 07-09-2023 MCV (RBC) [Entitic vol] 91.1 fL 80-94 [facility] Hematocrit Auto (Bld) [Volum e fraction]Ordered By: Cynthia Bowen on 07-09-2023 Hematocrit (Bld) [Volume fraction] 39.8 % 40-54 [facility] Laboratory - Chemistry and C hemistry - challengeOrdered By: Cynthia Bowen on 07-09-2023 CO2 [Moles/Vol] 28.0 mmol/L 21.0-32.0 [facility] Natriuretic peptide B (Bld) [Mass/Vol] 157.6 pg/mL 0-100 [facility] Urea nitrogen/Creatinine [Mass ratio] 25.1 mg/mg 10-20 [facility] Laboratory - Hematology and Cell countsOrdered By: Cynthia Bowen on 07-09-2023 Erythrocyte distribution width (RBC) [Entitic vol] 45.5 fL 35.1-43.9 [facility] Erythrocyte distribution width (RBC) [Ratio] 13.5 % 11.6-14.6 [facility] MCH (RBC) [Entitic mass] 29.3 pg 27.0-32.0 [facility] MCHC Auto (RBC) [Mass/Vol]Or dered By: Cynthia Bowen on 07-09-2023 MCHC (RBC) [Mass/Vol] 32.2 g/dL 32-36 [facility] No Panel InformationOrdered By: Cynthia Bowen on 07-09-2023 Estimated GFR (MDRD) Amer 111 mL/min >60 [facility] Comment on above: GFR Calc Estimated GFR (MDRD) Non-Af Amer 92 mL/min >60 [facility] Comment on above: Non- GFR Calc Thyroid Stimulating Hormone (TSH) 0.79 uIU/mL 0.358-3.74 [facility] Platelets bldOrdered By: Carlos Bowen on 07-09-2023 Platelets (Bld) [#/Vol] 174 10*3/uL 150-450 [facility] Serum or plasma calcium alfonso urement (mass/volume)Ordered By: Cynthia Bowen on 07-09-2023 Calcium [Mass/Vol] 9.1 mg/dL 8.5-10.1 [facility] Serum or plasma creatinine m easurement (mass/volume)Ordered By: Cynthia Bowen on 07-09-2023 Creatinine [Mass/Vol] 0.84 mg/dL 0.70-1.30 [facility] Comment on above: The validity of the calculated GFR & GFRAA in patients over 70 years has not been determined. Clinical correlation is essential. Serum or plasma urea nitroge n measurement (mass/volume)Ordered By: Cynthia Bowen on 07-09-2023 Urea nitrogen [Mass/Vol] 21 mg/dL 7-18 [facility] Thin prep Papanicolaou smear with manual screeningOrdered By: Cynthia Bowen on 07-09-2023 Thin prep Papanicolaou smear with manual screening 5 5-15 [facility] Absolute lymphocyte countOrd ered By: Dr. Mckeon on 03-26-2023 Lymphocytes Auto (Unsp spec) [#/Vol] 1.89 10*3/uL 0.83-4.51 [facility] Basophil percentageOrdered B y: Dr. Mckeon on 03-26-2023 Basophils/100 WBC (Bld) 0.3 % 0-1 [facility] Bilirubin [Mass/Vol] 1.10 mg/dL 0.20-1.00 [facility] Comment on above: For patients on eltr ombopag therapy, use of Dimension [place] TBIL is not recommended. Chloride [Moles/Vol] 104 mmol/L 98-107 [facility] Eosinophils/100 WBC (Bld) 0.4 % 0-5 [facility] Glucose [Mass/Vol] 113 mg/dL 74-106 [facility] Comment on above: Fasting Glucose resu lt from 100 to 125 mg/dL suggests IMPAIRED HOMEOSTASIS per A.D.A. criteria. Neutrophils (Bld) [#/Vol] 8.9 10*3/uL 2.0-7.7 [facility] Neutrophils/100 WBC (Bld) 72.9 % 47-70 [facility] Potassium [Moles/Vol] 4.1 mmol/L 3.5-5.1 [facility] Protein [Mass/Vol] 7.4 g/dL 6.4-8.2 [facility] Sodium [Moles/Vol] 138 mmol/L 136-145 [facility] WBC (Bld) [#/Vol] 12.2 10*3/uL 4.4-11.0 [facility] Blood erythrocytes count (nu mber/volume)Ordered By: Dr. Mckeon on 03-26-2023 RBC (Bld) [#/Vol] 4.04 10*6/uL 4.6-6.2 [facility] Blood hemoglobin measurement (mass/volume)Ordered By: Dr. Mckeon on 03-26-2023 Hemoglobin (Bld) [Mass/Vol] 12.1 g/dL 13.0-16.5 [facility] Blood lymphocytes/100 leukoc ytesOrdered By: Dr. Mckeon on 03-26-2023 Lymphocytes/100 WBC (Bld) 15.6 % 19-41 [facility] Blood monocytes/100 leukocyt esOrdered By: Dr. Mckeon on 03-26-2023 Monocytes/100 WBC (Bld) 10.6 % 0-10 [facility] Blood platelet mean volumeOr dered By: Dr. Mckeon on 03-26-2023 Platelet mean volume (Bld) [Entitic vol] 11.2 fL 6.2-12.0 [facility] Determination of erythrocyte mean corpuscular volume (MCV)Ordered By: Dr. Mckeon on 03-26-2023 MCV (RBC) [Entitic vol] 92.8 fL 80-94 [facility] Hematocrit Auto (Bld) [Volum e fraction]Ordered By: Dr. Mckeon on 03-26-2023 Hematocrit (Bld) [Volume fraction] 37.5 % 40-54 [facility] Laboratory - Chemistry and C hemistry - challengeOrdered By: Dr. Mckeon on 03-26-2023 ALP [Catalytic activity/Vol] 65 U/L 45-117 [facility] ALT [Catalytic activity/Vol] 16 U/L 16-61 [facility] CO2 [Moles/Vol] 28.0 mmol/L 21.0-32.0 [facility] Globulin (S) [Mass/Vol] 3.8 g/dL 2.2-4.2 [facility] Urea nitrogen/Creatinine [Mass ratio] 14.3 mg/mg 10-20 [facility] Laboratory - Hematology and Cell countsOrdered By: Dr. Mckeon on 03-26-2023 Erythrocyte distribution width (RBC) [Entitic vol] 49.5 fL 35.1-43.9 [facility] Erythrocyte distribution width (RBC) [Ratio] 14.4 % 11.6-14.6 [facility] Immature granulocytes/100 WBC (Bld) 0.200 % 0.0-0.9 [facility] Comment on above: IG% - Immature Granu locytes (promyelocytes, myelocytes and metamyelocytes) > 1% indicates that a LEFT SHIFT is Present. MCH (RBC) [Entitic mass] 30.0 pg 27.0-32.0 [facility] Nucleated RBC/100 WBC (Bld) [Ratio] 0 % 0-5 [facility] MCHC Auto (RBC) [Mass/Vol]Or dered By: Dr. Mckeon on 03-26-2023 MCHC (RBC) [Mass/Vol] 32.3 g/dL 32-36 [facility] No Panel InformationOrdered By: Dr. Mckeon on 03-26-2023 CA 19-9 Antigen 7 U/mL 0-35 [facility] Comment on above: [employer] El ectrochemiluminescence Immunoassay(ECLIA)Values obtained with different assay methods or kits cannotbe used interchangeably. Results cannot be interpreted asabsolute evidence of the presence or absence of malignantdisease.Performed at: [employer] [id number] Director: Toi Ponce PhD, Phone: [phone] Estimated GFR (MDRD) Amer 93 mL/min >60 [facility] Comment on above: GFR Calc Estimated GFR (MDRD) Non-Af Amer 77 mL/min >60 [facility] Comment on above: Non- GFR Calc Platelets bldOrdered By: Dr. Mckeon on 03-26-2023 Platelets (Bld) [#/Vol] 224 10*3/uL 150-450 [facility] Serum or plasma C reactive p rotein measurement (mass/volume)Ordered By: Dr. Mckeon on 03-26-2023 CRP [Mass/Vol] 39.50 mg/L 0.0-3.0 [facility] [facility] Comment on above: C-Reactive Protein ( CRP) provides useful information for thediagnosis, therapy and monitoring of inflammatory processesand associated diseases. For the evaluation of Relative Riskfor Cardiovascular Disease, a High Sensitivity CRP (HSCRP)should be ordered. Serum or plasma albumin alfonso urement (mass/volume)Ordered By: Dr. Mckeon on 03-26-2023 Albumin [Mass/Vol] 3.6 g/dL 3.2-5.0 [facility] Serum or plasma albumin/glob ulin mass ratioOrdered By: Dr. Mckeon on 03-26-2023 Albumin/Globulin [Mass ratio] 0.9 {ratio} 0.9-2.4 [facility] Serum or plasma calcium alfonso urement (mass/volume)Ordered By: Dr. Mckeon on 03-26-2023 Calcium [Mass/Vol] 8.6 mg/dL 8.5-10.1 [facility] Serum or plasma carcinoembry onic antigen measurement (mass/volume)Ordered By: Dr. Mckeon on 03-26-2023 Carcinoembryonic Ag [Mass/Vol] 0.7 ng/mL 0.0-4.7 [facility] Comment on above: Nonsmokers <3.9 Smok ers <5.6[employer] Electrochemiluminescence Immunoassay(ECLIA)Values obtained with different assay methods or kitscannot be used interchangeably. Results cannot beinterpreted as absolute evidence of the presence orabsence of malignant disease. Serum or plasma creatinine m easurement (mass/volume)Ordered By: Dr. Mckeon on 03-26-2023 Creatinine [Mass/Vol] 0.98 mg/dL 0.70-1.30 [facility] Comment on above: The validity of the calculated GFR & GFRAA in patients over 70 years has not been determined. Clinical correlation is essential. Serum or plasma urea nitroge n measurement (mass/volume)Ordered By: Dr. Mckeon on 03-26-2023 Urea nitrogen [Mass/Vol] 14 mg/dL 7-18 [facility] Thin prep Papanicolaou smear with manual screeningOrdered By: Dr. Mckeon on 03-26-2023 Thin prep Papanicolaou smear with manual screening 17 U/L 15-37 [facility] Thin prep Papanicolaou smear with manual screening 6 5-15 [facility] Absolute lymphocyte countOrd ered By: Dr. Villarreal on 01-06-2023 Lymphocytes Auto (Unsp spec) [#/Vol] 1.31 10*3/uL 0.83-4.51 [facility] Basophil percentageOrdered B y: Dr. Villarreal on 01-06-2023 Basophils/100 WBC (Bld) 0.3 % 0-1 [facility] Chloride [Moles/Vol] 108 mmol/L 98-107 [facility] Eosinophils/100 WBC (Bld) 1.2 % 0-5 [facility] Glucose [Mass/Vol] 123 mg/dL 74-106 [facility] Comment on above: Fasting Glucose resu lt from 100 to 125 mg/dL suggests IMPAIRED HOMEOSTASIS per A.D.A. criteria. Neutrophils (Bld) [#/Vol] 9.1 10*3/uL 2.0-7.7 [facility] Neutrophils/100 WBC (Bld) 74.2 % 47-70 [facility] Potassium [Moles/Vol] 3.7 mmol/L 3.5-5.1 [facility] Sodium [Moles/Vol] 139 mmol/L 136-145 [facility] WBC (Bld) [#/Vol] 12.2 10*3/uL 4.4-11.0 [facility] Blood erythrocytes count (nu mber/volume)Ordered By: Dr. Villarreal on 01-06-2023 RBC (Bld) [#/Vol] 3.97 10*6/uL 4.6-6.2 [facility] Blood hemoglobin measurement (mass/volume)Ordered By: Dr. Villarreal on 01-06-2023 Hemoglobin (Bld) [Mass/Vol] 11.9 g/dL 13.0-16.5 [facility] Blood lymphocytes/100 leukoc ytesOrdered By: Dr. Villarreal on 01-06-2023 Lymphocytes/100 WBC (Bld) 10.7 % 19-41 [facility] Blood manual differential co mment interpretation (narrative result)Ordered By: Dr. Villarreal on 01-06-2023 Manual differential comment Liang (Bld) [Interp] SCANNED [facility] Blood monocytes/100 leukocyt esOrdered By: Dr. Villarreal on 01-06-2023 Monocytes/100 WBC (Bld) 13.4 % 0-10 [facility] Blood platelet mean volumeOr dered By: Dr. Villarreal on 01-06-2023 Platelet mean volume (Bld) [Entitic vol] 10.8 fL 6.2-12.0 [facility] Determination of erythrocyte mean corpuscular volume (MCV)Ordered By: Dr. Villarreal on 01-06-2023 MCV (RBC) [Entitic vol] 91.9 fL 80-94 [facility] Hematocrit Auto (Bld) [Volum e fraction]Ordered By: Dr. Villarreal on 01-06-2023 Hematocrit (Bld) [Volume fraction] 36.5 % 40-54 [facility] Laboratory - Chemistry and C hemistry - challengeOrdered By: Dr. Villarreal on 01-06-2023 CO2 [Moles/Vol] 26.0 mmol/L 21.0-32.0 [facility] Urea nitrogen/Creatinine [Mass ratio] 11.6 mg/mg 10-20 [facility] Laboratory - Hematology and Cell countsOrdered By: Dr. Villarreal on 01-06-2023 Erythrocyte distribution width (RBC) [Entitic vol] 48.6 fL 35.1-43.9 [facility] Erythrocyte distribution width (RBC) [Ratio] 14.4 % 11.6-14.6 [facility] Immature granulocytes/100 WBC (Bld) 0.200 % 0.0-0.9 [facility] Comment on above: IG% - Immature Granu locytes (promyelocytes, myelocytes and metamyelocytes) > 1% indicates that a LEFT SHIFT is Present. MCH (RBC) [Entitic mass] 30.0 pg 27.0-32.0 [facility] Nucleated RBC/100 WBC (Bld) [Ratio] 0 % 0-5 [facility] Auto (RBC) [Mass/Vol]Or dered By: Dr. Villarreal on 01-06-2023 MCHC (RBC) [Mass/Vol] 32.6 g/dL 32-36 [facility] No Panel InformationOrdered By: Dr. Villarreal on 01-06-2023 Estimated Creatinine Clearance Calc 46.20 ml/min [facility] Estimated GFR (MDRD) Amer 108 mL/min >60 [facility] Comment on above: GFR Calc Estimated GFR (MDRD) Non-Af Amer 89 mL/min >60 [facility] Comment on above: Non- GFR Calc Platelets bldOrdered By: Dr. Villarreal on 01-06-2023 Platelets (Bld) [#/Vol] 225 10*3/uL 150-450 [facility] Review by pathologistOrdered By: Dr. Villarreal on 01-06-2023 Pathologist review Liang (Unsp spec) [Interp] Reviewed [facility] Comment on above: Previous reported re sult: Sonia anthony Edited by: RGORENATA on 01/07/23:1327Neutrophilic leukocytosis.Clinical correlation necessary.Eddi Swartz M.D. 01/07/23 AMENDED REPORT 01/07/23 1327 PATH REV previously reported as: Sonia anthony Serum or plasma calcium alfonso urement (mass/volume)Ordered By: Dr. Villarreal on 01-06-2023 Calcium [Mass/Vol] 8.3 mg/dL 8.5-10.1 [facility] Serum or plasma creatinine m easurement (mass/volume)Ordered By: Dr. Villarreal on 01-06-2023 Creatinine [Mass/Vol] 0.86 mg/dL 0.70-1.30 [facility] Comment on above: The validity of the calculated GFR & GFRAA in patients over 70 years has not been determined. Clinical correlation is essential. Serum or plasma urea nitroge n measurement (mass/volume)Ordered By: Dr. Villarreal on 01-06-2023 Urea nitrogen [Mass/Vol] 10 mg/dL 7-18 [facility] Thin prep Papanicolaou smear with manual screeningOrdered By: Dr. Villarreal on 01-06-2023 Thin prep Papanicolaou smear with manual screening 5 5-15 [facility] Absolute lymphocyte countOrd ered By: Dr. Morgan on 12-27-2022 Lymphocytes Auto (Unsp spec) [#/Vol] 1.73 10*3/uL 0.83-4.51 [facility] Basophil percentageOrdered B y: Dr. Morgan on 12-27-2022 Basophil percentage 0-5 SEEN /hpf 0-5 [facility] Basophils/100 WBC (Bld) 0.5 % 0-1 [facility] Bilirubin [Mass/Vol] 2.10 mg/dL 0.20-1.00 [facility] Comment on above: For patients on eltr ombopag therapy, use of Dimension [place] TBIL is not recommended. Chloride [Moles/Vol] 102 mmol/L 98-107 [facility] Eosinophils/100 WBC (Bld) 1.0 % 0-5 [facility] Glucose [Mass/Vol] 135 mg/dL 74-106 [facility] Comment on above: Fasting Glucose resu lt greater than or equal to 126 mg/dL suggests DIABETES MELLITUS per A.D.A. criteria. Neutrophils (Bld) [#/Vol] 7.5 10*3/uL 2.0-7.7 [facility] Neutrophils/100 WBC (Bld) 69.5 % 47-70 [facility] Potassium [Moles/Vol] 3.4 mmol/L 3.5-5.1 [facility] Protein [Mass/Vol] 7.6 g/dL 6.4-8.2 [facility] Sodium [Moles/Vol] 139 mmol/L 136-145 [facility] WBC (Bld) [#/Vol] 10.8 10*3/uL 4.4-11.0 [facility] Bilirubin Test strip Ql (U)O rdered By: Dr. Morgan on 12-27-2022 Bilirubin Ql (U) Negative Negative [facility] Blood erythrocytes count (nu mber/volume)Ordered By: Dr. Morgan on 12-27-2022 RBC (Bld) [#/Vol] 4.29 10*6/uL 4.6-6.2 [facility] Blood hemoglobin measurement (mass/volume)Ordered By: Dr. Morgan on 12-27-2022 Hemoglobin (Bld) [Mass/Vol] 12.8 g/dL 13.0-16.5 [facility] Blood lymphocytes/100 leukoc ytesOrdered By: Dr. Morgan on 12-27-2022 Lymphocytes/100 WBC (Bld) 16.0 % 19-41 [facility] Blood monocytes/100 leukocyt esOrdered By: Dr. Morgan on 12-27-2022 Monocytes/100 WBC (Bld) 12.6 % 0-10 [facility] Blood platelet mean volumeOr dered By: Dr. Morgan on 12-27-2022 Platelet mean volume (Bld) [Entitic vol] 11.6 fL 6.2-12.0 [facility] Determination of erythrocyte mean corpuscular volume (MCV)Ordered By: Dr. Morgan on 12-27-2022 MCV (RBC) [Entitic vol] 91.4 fL 80-94 [facility] Hematocrit Auto (Bld) [Volum e fraction]Ordered By: Dr. Morgan on 12-27-2022 Hematocrit (Bld) [Volume fraction] 39.2 % 40-54 [facility] Ketones Test strip Ql (U)Ord ered By: Dr. Morgan on 12-27-2022 Ketones Ql (U) Negative Negative [facility] Laboratory - Chemistry and C hemistry - challengeOrdered By: Dr. Morgan on 12-27-2022 ALP [Catalytic activity/Vol] 68 U/L 45-117 [facility] ALT [Catalytic activity/Vol] 11 U/L 16-61 [facility] CO2 [Moles/Vol] 30.0 mmol/L 21.0-32.0 [facility] Globulin (S) [Mass/Vol] 3.7 g/dL 2.2-4.2 [facility] Urea nitrogen/Creatinine [Mass ratio] 11.9 mg/mg 10-20 [facility] Laboratory - Hematology and Cell countsOrdered By: Dr. Morgan on 12-27-2022 Erythrocyte distribution width (RBC) [Entitic vol] 46.6 fL 35.1-43.9 [facility] Erythrocyte distribution width (RBC) [Ratio] 14.0 % 11.6-14.6 [facility] Immature granulocytes/100 WBC (Bld) 0.400 % 0.0-0.9 [facility] Comment on above: IG% - Immature Granu locytes (promyelocytes, myelocytes and metamyelocytes) > 1% indicates that a LEFT SHIFT is Present. MCH (RBC) [Entitic mass] 29.8 pg 27.0-32.0 [facility] Nucleated RBC/100 WBC (Bld) [Ratio] 0 % 0-5 [facility] MCHC Auto (RBC) [Mass/Vol]Or dered By: Dr. Morgan on 12-27-2022 MCHC (RBC) [Mass/Vol] 32.7 g/dL 32-36 [facility] Mucus LM Ql (Urine sed)Order ed By: Dr. Morgan on 12-27-2022 Mucus Ql (Urine sed) 0 SEEN /hpf [facility] Nitrite Test strip Ql (U)Ord ered By: Dr. Morgan on 12-27-2022 Nitrite Ql (U) Negative Negative [facility] No Panel InformationOrdered By: Dr. Morgan on 12-27-2022 Estimated Creatinine Clearance Calc 42.47 ml/min [facility] Estimated GFR (MDRD) Amer 99 mL/min >60 [facility] Comment on above: GFR Calc Estimated GFR (MDRD) Non-Af Amer 82 mL/min >60 [facility] Comment on above: Non- GFR Calc Platelets bldOrdered By: Dr. Morgan on 12-27-2022 Platelets (Bld) [#/Vol] 195 10*3/uL 150-450 [facility] Protein Test strip Ql (U)Ord ered By: Dr. Morgan on 12-27-2022 Protein Ql (U) 15 mg/dl Negative [facility] Serum or plasma albumin alfonso urement (mass/volume)Ordered By: Dr. Morgan on 12-27-2022 Albumin [Mass/Vol] 3.9 g/dL 3.2-5.0 [facility] Serum or plasma albumin/glob ulin mass ratioOrdered By: Dr. Morgan on 12-27-2022 Albumin/Globulin [Mass ratio] 1.1 {ratio} 0.9-2.4 [facility] Serum or plasma calcium alfonso urement (mass/volume)Ordered By: Dr. Morgan on 12-27-2022 Calcium [Mass/Vol] 8.9 mg/dL 8.5-10.1 [facility] Serum or plasma creatinine m easurement (mass/volume)Ordered By: Dr. Morgan on 12-27-2022 Creatinine [Mass/Vol] 0.93 mg/dL 0.70-1.30 [facility] Comment on above: The validity of the calculated GFR & GFRAA in patients over 70 years has not been determined. Clinical correlation is essential. Serum or plasma urea nitroge n measurement (mass/volume)Ordered By: Dr. Morgan on 12-27-2022 Urea nitrogen [Mass/Vol] 11 mg/dL 7-18 [facility] Squamous epithelial cells de tection in urine sediment by light microscopyOrdered By: Dr. Morgan on 12-27-2022 Epithelial cells.squamous LM Ql (Urine sed) 0-5 SEEN /hpf 0-5 [facility] Thin prep Papanicolaou smear with manual screeningOrdered By: Dr. Morgan on 12-27-2022 Thin prep Papanicolaou smear with manual screening 8 U/L 15-37 [facility] Thin prep Papanicolaou smear with manual screening 7 5-15 [facility] Urine blood detectionOrdered By: Dr. Morgan on 12-27-2022 RBC Ql (U) Negative Negative [facility] RBC Ql (U) 0 SEEN /hpf 0-5 [facility] Urine clarityOrdered By: Dr. Morgan on 12-27-2022 Clarity (U) Sl. Cloudy Clear [facility] Urine color determinationOrd ered By: Dr. Morgan on 12-27-2022 Color (U) Yellow Yellow [facility] Urine glucose detectionOrder ed By: Dr. Morgan on 12-27-2022 Glucose Ql (U) Normal mg/dl Normal [facility] Urine leukocyte esterase det ection by dipstickOrdered By: Dr. Morgan on 12-27-2022 Leukocyte esterase Test strip Ql (U) 25 /ul Negative [facility] Urine pHOrdered By: Dr. Meme holcomb on 12-27-2022 pH (U) 7.0 [pH] 5.0 - 8.0 [facility] Urine sediment bacteria coun t by microscopy (number/high power field)Ordered By: Dr. Morgan on 12-27-2022 Bacteria LM.HPF (Urine sed) [#/Area] 0 /[HPF] None Seen [facility] Urine specific gravity measu rementOrdered By: Dr. oMrgan on 12-27-2022 Specific gravity (U) [Rel density] 1.010 1.002-1.03 0 [facility] Urobilinogen Auto test strip Ql (U)Ordered By: Dr. Morgan on 12-27-2022 Urobilinogen Ql (U) Normal mg/dl Normal [facility] Basophil percentageOrdered B y: Dr. Barth on 10-12-2022 Chloride [Moles/Vol] 105 mmol/L 98-107 [facility] Glucose [Mass/Vol] 187 mg/dL 74-106 [facility] Comment on above: Fasting Glucose resu lt greater than or equal to 126 mg/dL suggests DIABETES MELLITUS per A.D.A. criteria. Potassium [Moles/Vol] 3.8 mmol/L 3.5-5.1 [facility] Sodium [Moles/Vol] 139 mmol/L 136-145 [facility] WBC (Bld) [#/Vol] 7.0 10*3/uL 4.4-11.0 [facility] Blood erythrocytes count (nu mber/volume)Ordered By: Dr. Barth on 10-12-2022 RBC (Bld) [#/Vol] 4.22 10*6/uL 4.6-6.2 [facility] Blood hemoglobin measurement (mass/volume)Ordered By: Dr. Barth on 10-12-2022 Hemoglobin (Bld) [Mass/Vol] 12.9 g/dL 13.0-16.5 [facility] Blood platelet mean volumeOr dered By: Dr. Barth on 10-12-2022 Platelet mean volume (Bld) [Entitic vol] 11.9 fL 6.2-12.0 [facility] Determination of erythrocyte mean corpuscular volume (MCV)Ordered By: Dr. Barth on 10-12-2022 MCV (RBC) [Entitic vol] 92.7 fL 80-94 [facility] Hematocrit Auto (Bld) [Volum e fraction]Ordered By: Dr. Barth on 10-12-2022 Hematocrit (Bld) [Volume fraction] 39.1 % 40-54 [facility] Laboratory - Chemistry and C hemistry - challengeOrdered By: Dr. Barth on 10-12-2022 CO2 [Moles/Vol] 30.0 mmol/L 21.0-32.0 [facility] Urea nitrogen/Creatinine [Mass ratio] 9.9 mg/mg 10-20 [facility] Laboratory - Hematology and Cell countsOrdered By: Dr. Barth on 10-12-2022 Erythrocyte distribution width (RBC) [Entitic vol] 47.6 fL 35.1-43.9 [facility] Erythrocyte distribution width (RBC) [Ratio] 13.9 % 11.6-14.6 [facility] MCH (RBC) [Entitic mass] 30.6 pg 27.0-32.0 [facility] MCHC Auto (RBC) [Mass/Vol]Or dered By: Dr. Barth on 10-12-2022 MCHC (RBC) [Mass/Vol] 33.0 g/dL 32-36 [facility] No Panel InformationOrdered By: Dr. Barth on 10-12-2022 Estimated GFR (MDRD) Amer 90 mL/min >60 [facility] Comment on above: GFR Calc Estimated GFR (MDRD) Non-Af Amer 74 mL/min >60 [facility] Comment on above: Non- GFR Calc Platelets bldOrdered By: Dr. Barth on 10-12-2022 Platelets (Bld) [#/Vol] 200 10*3/uL 150-450 [facility] Serum or plasma calcium alfonso urement (mass/volume)Ordered By: Dr. Barth on 10-12-2022 Calcium [Mass/Vol] 8.9 mg/dL 8.5-10.1 [facility] Serum or plasma creatinine m easurement (mass/volume)Ordered By: Dr. Barth on 10-12-2022 Creatinine [Mass/Vol] 1.01 mg/dL 0.70-1.30 [facility] Comment on above: The validity of the calculated GFR & GFRAA in patients over 70 years has not been determined. Clinical correlation is essential. Serum or plasma urea nitroge n measurement (mass/volume)Ordered By: Dr. Barth on 10-12-2022 Urea nitrogen [Mass/Vol] 10 mg/dL 7-18 [facility] Thin prep Papanicolaou smear with manual screeningOrdered By: Dr. Barth on 10-12-2022 Thin prep Papanicolaou smear with manual screening 4 5-15 [facility] Basophil percentageon 2021 Chloride [Moles/Vol] 105 mmol/L 98-107 [facility] Work Phone: Glucose [Mass/Vol] 104 mg/dL 74-106 [facility] Work Phone: Comment on above: Fasting Glucose resu lt from 100 to 125 mg/dL suggests IMPAIRED HOMEOSTASIS per A.D.A. criteria. Potassium [Moles/Vol] 4.1 mmol/L 3.5-5.1 [facility] Work Phone: Sodium [Moles/Vol] 139 mmol/L 136-145 [facility] Work Phone: WBC (Bld) [#/Vol] 5.7 10*3/uL 4.4-11.0 [facility] Work Phone: Blood erythrocytes count (nu mber/volume)on 06-03-2022 RBC (Bld) [#/Vol] 3.87 10*6/uL 4.6-6.2 [facility] Work Phone: Blood hemoglobin measurement (mass/volume)on 06-03-2022 Hemoglobin (Bld) [Mass/Vol] 11.8 g/dL 13.0-16.5 [facility] Work Phone: Blood platelet mean volumeon 06-03-2022 Platelet mean volume (Bld) [Entitic vol] 11.2 fL 6.2-12.0 [facility] Work Phone: Determination of erythrocyte mean corpuscular volume (MCV)on 06-03-2022 MCV (RBC) [Entitic vol] 90.4 fL 80-94 [facility] Work Phone: Hematocrit Auto (Bld) [Volum e fraction]on 06-03-2022 Hematocrit (Bld) [Volume fraction] 35.0 % 40-54 [facility] Work Phone: Laboratory - Chemistry and C hemistry - challengeon 06-03-2022 CO2 [Moles/Vol] 28.0 mmol/L 21.0-32.0 [facility] Work Phone: Urea nitrogen/Creatinine [Mass ratio] 15.9 mg/mg 10-20 [facility] Work Phone: Laboratory - Hematology and Cell countson 06-03-2022 Erythrocyte distribution width (RBC) [Entitic vol] 47.1 fL 35.1-43.9 [facility] Work Phone: Erythrocyte distribution width (RBC) [Ratio] 14.3 % 11.6-14.6 [facility] Work Phone: MCH (RBC) [Entitic mass] 30.5 pg 27.0-32.0 [facility] Work Phone: MCHC Auto (RBC) [Mass/Vol]on 06-03-2022 MCHC (RBC) [Mass/Vol] 33.7 g/dL 32-36 [facility] Work Phone: No Panel Informationon 06-03 Estimated GFR (MDRD) Amer 84 mL/min >60 [facility] Work Phone: Comment on above: GFR Calc Estimated GFR (MDRD) Non-Af Amer 70 mL/min >60 [facility] Work Phone: Comment on above: Non- GFR Calc Platelets bldon 06-03-2022 Platelets (Bld) [#/Vol] 180 10*3/uL 150-450 [facility] Work Phone: Serum or plasma calcium alfonso urement (mass/volume)on 06-03-2022 Calcium [Mass/Vol] 9.1 mg/dL 8.5-10.1 [facility] Work Phone: Serum or plasma creatinine m easurement (mass/volume)on 06-03-2022 Creatinine [Mass/Vol] 1.07 mg/dL 0.70-1.30 [facility] Work Phone: Comment on above: The validity of the calculated GFR & GFRAA in patients over 70 years has not been determined. Clinical correlation is essential. Serum or plasma urea nitroge n measurement (mass/volume)on 06-03-2022 Urea nitrogen [Mass/Vol] 17 mg/dL 7-18 [facility] Work Phone: Thin prep Papanicolaou smear with manual screeningon 06-03-2022 Thin prep Papanicolaou smear with manual screening 6 5-15 [facility] Work Phone: Absolute lymphocyte counton 03-05-2022 Lymphocytes Auto (Unsp spec) [#/Vol] 2.16 10*3/uL 0.83-4.51 [facility] Work Phone: Basophil percentageon 2021 Basophils/100 WBC (Bld) 0.6 % 0-1 [facility] Work Phone: Chloride [Moles/Vol] 103 mmol/L 98-107 [facility] Work Phone: Eosinophils/100 WBC (Bld) 5.9 % 0-5 [facility] Work Phone: Glucose [Mass/Vol] 110 mg/dL 74-106 [facility] Work Phone: Comment on above: Fasting Glucose resu lt from 100 to 125 mg/dL suggests IMPAIRED HOMEOSTASIS per A.D.A. criteria. Neutrophils (Bld) [#/Vol] 3.8 10*3/uL 2.0-7.7 [facility] Work Phone: Neutrophils/100 WBC (Bld) 54.3 % 47-70 [facility] Work Phone: Potassium [Moles/Vol] 3.6 mmol/L 3.5-5.1 [facility] Work Phone: Sodium [Moles/Vol] 139 mmol/L 136-145 [facility] Work Phone: WBC (Bld) [#/Vol] 6.9 10*3/uL 4.4-11.0 [facility] Work Phone: Blood erythrocytes count (nu mber/volume)on 03-05-2022 RBC (Bld) [#/Vol] 3.99 10*6/uL 4.6-6.2 [place] [facility] Work Phone: Blood hemoglobin measurement (mass/volume)on 03-05-2022 Hemoglobin (Bld) [Mass/Vol] 11.9 g/dL 13.0-16.5 [facility] Work Phone: Blood lymphocytes/100 leukoc yteson 03-05-2022 Lymphocytes/100 WBC (Bld) 31.1 % 19-41 [facility] Work Phone: Blood monocytes/100 leukocyt eson 03-05-2022 Monocytes/100 WBC (Bld) 7.8 % 0-10 [facility] Work Phone: Blood platelet mean volumeon 03-05-2022 Platelet mean volume (Bld) [Entitic vol] 11.5 fL 6.2-12.0 [facility] Work Phone: Determination of erythrocyte mean corpuscular volume (MCV)on 03-05-2022 MCV (RBC) [Entitic vol] 92.0 fL 80-94 [facility] Work Phone: Hematocrit Auto (Bld) [Volum e fraction]on 03-05-2022 Hematocrit (Bld) [Volume fraction] 36.7 % 40-54 [facility] Work Phone: Laboratory - Chemistry and C hemistry - challengeon 03-05-2022 CO2 [Moles/Vol] 30.0 mmol/L 21.0-32.0 [facility] Work Phone: Natriuretic peptide B (Bld) [Mass/Vol] 225.2 pg/mL 0-100 [facility] Work Phone: Urea nitrogen/Creatinine [Mass ratio] 11.4 mg/mg 10-20 [facility] Work Phone: Laboratory - Hematology and Cell countson 03-05-2022 Erythrocyte distribution width (RBC) [Entitic vol] 48.4 fL 35.1-43.9 [facility] Work Phone: Erythrocyte distribution width (RBC) [Ratio] 14.3 % 11.6-14.6 [facility] Work Phone: Immature granulocytes/100 WBC (Bld) 0.300 % 0.0-0.9 [facility] Work Phone: Comment on above: IG% - Immature Granu locytes (promyelocytes, myelocytes and metamyelocytes) > 1% indicates that a LEFT SHIFT is Present. MCH (RBC) [Entitic mass] 29.8 pg 27.0-32.0 [facility] Work Phone: Nucleated RBC/100 WBC (Bld) [Ratio] 0 % 0-5 [facility] Work Phone: MCHC Auto (RBC) [Mass/Vol]on 03-05-2022 MCHC (RBC) [Mass/Vol] 32.4 g/dL 32-36 [facility] Work Phone: No Panel Informationon 03-05 Estimated GFR (MDRD) Amer 95 mL/min >60 [facility] Work Phone: Comment on above: GFR Calc Estimated GFR (MDRD) Non-Af Amer 79 mL/min >60 [facility] Work Phone: Comment on above: Non- GFR Calc Platelets bldon 03-05-2022 Platelets (Bld) [#/Vol] 199 10*3/uL 150-450 [facility] Work Phone: Serum or plasma calcium alfonso urement (mass/volume)on 03-05-2022 Calcium [Mass/Vol] 8.3 mg/dL 8.5-10.1 [facility] Work Phone: Serum or plasma creatinine m easurement (mass/volume)on 03-05-2022 Creatinine [Mass/Vol] 0.96 mg/dL 0.70-1.30 [facility] Work Phone: Comment on above: The validity of the calculated GFR & GFRAA in patients over 70 years has not been determined. Clinical correlation is essential. Serum or plasma urea nitroge n measurement (mass/volume)on 03-05-2022 Urea nitrogen [Mass/Vol] 11 mg/dL 7-18 [facility] Work Phone: Thin prep Papanicolaou smear with manual screeningon 03-05-2022 Thin prep Papanicolaou smear with manual screening 6 5-15 [facility] Work Phone: No Panel Informationon 02-03 Prostate Specific Antigen Total 13.50 ng/mL 0.0-4.0 [facility] Work Phone: Comment on above: This test was perfor med using the TPSA assay method for [employer] chemistry system. Values obtained with differentassay methods cannot be used interchangably.When changing PSA assays in the course of monitoring apatient, additional sequential testing should be carriedout to confirm baseline values. Absolute lymphocyte counton 10-16-2021 Lymphocytes Auto (Unsp spec) [#/Vol] 2.15 10*3/uL 0.83-4.51 [facility] Work Phone: Basophil percentageon 2020 Chloride [Moles/Vol] 104 mmol/L 98-107 [facility] Work Phone: Eosinophils/100 WBC (Bld) 7.8 % 0-5 [facility] Work Phone: Glucose [Mass/Vol] 104 mg/dL 74-106 [facility] Work Phone: Comment on above: Fasting Glucose resu lt from 100 to 125 mg/dL suggests IMPAIRED HOMEOSTASIS per A.D.A. criteria.Please note revised GLUCOSE reference range effective 2017. Neutrophils (Bld) [#/Vol] 4.4 10*3/uL 2.0-7.7 [facility] Work Phone: Potassium [Moles/Vol] 3.8 mmol/L 3.5-5.1 [facility] Work Phone: [phone] Sodium [Moles/Vol] 139 mmol/L 136-145 [facility]: WBC (Bld) [#/Vol] 7.8 10*3/uL 4.4-11.0 [facility] Work Phone: Blood erythrocytes count (nu mber/volume)on 10-16-2021 RBC (Bld) [#/Vol] 4.17 10*6/uL 4.6-6.2 [facility] Work Phone: Blood hemoglobin measurement (mass/volume)on 10-16-2021 Hemoglobin (Bld) [Mass/Vol] 12.5 g/dL 13.0-16.5 [facility] Work Phone: Blood lymphocytes/100 leukoc yteson 10-16-2021 Lymphocytes/100 WBC (Bld) 27.4 % 19-41 [facility] Work Phone: [phone] Blood monocytes/100 leukocyt eson 10-16-2021 Monocytes/100 WBC (Bld) 8.4 % 0-10 [facility] Work Phone: [phone] Blood platelet mean volumeon 10-16-2021 Platelet mean volume (Bld) [Entitic vol] 10.8 fL 6.2-12.0 [facility] Work Phone: Determination of erythrocyte mean corpuscular volume (MCV)on 10-16-2021 MCV (RBC) [Entitic vol] 92.1 fL 80-94 [facility] Work Phone: Hematocrit Auto (Bld) [Volum e fraction]on 10-16-2021 Hematocrit (Bld) [Volume fraction] 38.4 % 40-54 [facility] Work Phone: Laboratory - Chemistry and C hemistry - challengeon 10-16-2021 CO2 [Moles/Vol] 28.0 mmol/L 21.0-32.0 [facility] Work Phone: Urea nitrogen/Creatinine [Mass ratio] 16.6 mg/mg 10-20 [facility] Work Phone: Laboratory - Hematology and Cell countson 10-16-2021 Basophils/100 WBC (Unsp spec) 0.6 % 0-1 [facility] Work Phone: Erythrocyte distribution width (RBC) [Entitic vol] 48.0 fL 35.1-43.9 [facility] Work Phone: Erythrocyte distribution width (RBC) [Ratio] 14.3 % 11.6-14.6 [facility] Work Phone: Immature granulocytes/100 WBC (Bld) 0.100 % 0.0-0.9 [facility] Work Phone: Comment on above: IG% - Immature Granu locytes (promyelocytes, myelocytes and metamyelocytes) > 1% indicates that a LEFT SHIFT is Present. MCH (RBC) [Entitic mass] 30.0 pg 27.0-32.0 [facility] Work Phone: Neutrophils/100 WBC (Bld) 55.7 % 47-70 [facility] Work Phone: Nucleated RBC/100 WBC (Bld) [Ratio] 0 % 0-5 [facility] Work Phone: MCHC Auto (RBC) [Mass/Vol]on 10-16-2021 MCHC (RBC) [Mass/Vol] 32.6 g/dL 32-36 [facility] Work Phone: No Panel Informationon 10-16 Estimated GFR (MDRD) Amer 111 mL/min >60 [facility] Work Phone: Comment on above: GFR Calc Estimated GFR (MDRD) Non-Af Amer 92 mL/min >60 [facility] Work Phone: Comment on above: Non- GFR Calc Prostate Specific Antigen Total 20.20 ng/mL 0.0-4.0 [facility] Work Phone: Comment on above: This test was perfor med using the TPSA assay method for the[facility] chemistry system. Values obtained with differentassay methods cannot be used interchangably.When changing PSA assays in the course of monitoring apatient, additional sequential testing should be carriedout to confirm baseline values. Platelets bldon 10-16-2021 Platelets (Bld) [#/Vol] 247 10*3/uL 150-450 [facility] Work Phone: Serum or plasma calcium alfonso urement (mass/volume)on 10-16-2021 Calcium [Mass/Vol] 9.1 mg/dL 8.5-10.1 [facility] Work Phone: Serum or plasma creatinine m easurement (mass/volume)on 10-16-2021 Creatinine [Mass/Vol] 0.84 mg/dL 0.70-1.30 [facility] Work Phone: Comment on above: The validity of the calculated GFR & GFRAA in patients over 70 years has not been determined. Clinical correlation is essential. Serum or plasma thyroperoxid ase antibody assay (units/volume)on 10-16-2021 TPO Ab Qn [IU]/mL [facility] Work Phone: Comment on above: Performed at: [place] [id number] Director: Toi Ponce PhD, Phone: [phone] Serum or plasma urea nitroge n measurement (mass/volume)on 10-16-2021 Urea nitrogen [Mass/Vol] 14 mg/dL -18 [facility] Work Phone: Thin prep Papanicolaou smear with manual screeningon 10-16-2021 Thin prep Papanicolaou smear with manual screening 7 03-15 [facility] Work Phone: Lab Report: Basic Metabolic Profile (BMP)on 10-28-2017 Anion gap [Moles/Vol] 8 mmol/L Invalid Interpretation Code 03-15 [facility] Work Phone: [phone] Calcium [Mass/Vol] 8.8 mg/dL Invalid Interpretation Code 8.5-10.1 [facility] Work Phone: [phone] Chloride [Moles/Vol] 102 mmol/L Invalid Interpretation Code 98-107 [facility] Work Phone: [phone] CO2 (BldV) [Partial pressure] 29.0 mmol/L Invalid Interpretation Code 21.0-32.0 [facility] Work Phone: [phone] Creatinine [Mass/Vol] 1.06 mg/dL Invalid Interpretation Code 0.70-1.30 [facility] Work Phone: [phone] GFR/1.73 sq M.predicted among non-blacks MDRD (S/P/Bld) [Vol rate/Area] 71 mL/min/{1.73_m2} Invalid Interpretation Code >60 [facility] Phone: [phone] Glomerular Filtration rate 86 mL/min Invalid Interpretation Code >60 [facility] Work Phone: [phone] Glucose [Mass/Vol] 101 mg/dL Invalid Interpretation Code 70-110 [facility] Phone: [phone] Potassium [Moles/Vol] 3.6 mmol/L Invalid Interpretation Code 3.5-5.1 [facility] Work Phone: [phone] Sodium [Moles/Vol] 139 mmol/L Invalid Interpretation Code 136-145 [facility] Work Phone: [phone] Urea nitrogen [Mass/Vol] 18 mg/dL Invalid Interpretation Code 7-18 [facility] Work Phone: [phone] Urea nitrogen/Creatinine [Mass ratio] 17.0920969 mg/mg Invalid Interpretation Code 10-20 [facility] Work Phone: [phone]) [facility]2017 lead advisory Device on Alert for early battery depletion. Pt refuses remote monitoring system at this time. Invalid Interpretation Code [facility] Phone: [phone]) Clinical Lists Update: Prelo crystal inspector 05-31-2017 Left ventricular Ejection fraction 40 % Invalid Interpretation Code [facility] Work Phone: [phone] Office Visiton 05-24-2017 Documentation of current medications (procedure) Done Invalid Interpretation Code [facility] Work Phone: [phone] Office Visiton 04-12-2017 Fall risk assessment No Invalid Interpretation Code [facility] Work Phone: [phone]) Lab Report: BNP,B-Type NATRI URETIC PEPTIDEon 10-09-2016 Natriuretic peptide B (Bld) [Mass/Vol] 134.5 pg/mL High 0-100 [facility] Work Phone: [phone]) Lab Report: Basic Metabolic Profile (BMP)on 10-09-2016 Anion gap 6 mmol/L Invalid Interpretation Code 5-15 [facility] Work Phone: [phone] Anion gap [Moles/Vol] 6 mmol/L Invalid Interpretation Code 5-15 [facility] Work Phone: [phone] BUN/Creatinine Ratio 14.8 RATIO Invalid Interpretation Code 10-20 [facility] Work Phone: [phone] Calcium [Mass/Vol] 8.8 mg/dL Invalid Interpretation Code 8.5-10.1 [facility] Work Phone: [phone] Chloride [Moles/Vol] 103 mmol/L Invalid Interpretation Code 98-107 [facility] Work Phone: [phone] CO2 32.0 mmol/L Invalid Interpretation Code 21.0-32.0 [facility] Work Phone: [phone] CO2 (BldV) [Partial pressure] 32.0 mmol/L Invalid Interpretation Code 21.0-32.0 [facility] Work Phone: [phone] Creatinine [Mass/Vol] 1.22 mg/dL Invalid Interpretation Code 0.70-1.30 [facility] Work Phone: [phone] eGFR (non-black) 73 mL/min/{1.73_m2} Invalid Interpretation Code >60 [facility] Work Phone: [phone] GFR/1.73 sq M.predicted among non-blacks MDRD (S/P/Bld) [Vol rate/Area] 61 mL/min/{1.73_m2} Invalid Interpretation Code >60 [facility] Work Phone: [phone] Glomerular Filtration rate 73 mL/min Invalid Interpretation Code >60 [facility] Work Phone: [phone] Glucose [Mass/Vol] 102 mg/dL Invalid Interpretation Code 70-110 [facility] Work Phone: [phone] Potassium [Moles/Vol] 3.9 mmol/L Invalid Interpretation Code 3.5-5.1 [facility] Work Phone: [phone] Sodium [Moles/Vol] 141 mmol/L Invalid Interpretation Code 136-145 [facility] Work Phone: [phone] Urea nitrogen [Mass/Vol] 18 mg/dL Invalid Interpretation Code 7-18 [facility] Work Phone: [phone] Urea nitrogen/Creatinine [Mass ratio] 14.4742319 mg/mg Invalid Interpretation Code 10-20 [facility] Work Phone: [phone] Lab Report: CBC W/Diff, Auto matedon 10-09-2016 Absolute Neut 2.3 X10 3/UL Invalid Interpretation Code 2.0-7.7 [facility] Work Phone: [phone] Basophils/100 WBC (Bld) 0.4 % Invalid Interpretation Code 0-1 [facility] Work Phone: [phone] Basophils/100 WBC Auto (Bld) 0.4 % Invalid Interpretation Code 0-1 [facility] Work Phone: [phone] Eosinophils/100 leukocytes 5.8 % High 0-5 [facility] Work Phone: [phone] Eosinophils/100 WBC (Bld) 5.8 % High 0-5 [facility] Work Phone: [phone] Erythrocyte distribution width (RBC) [Ratio] 14.2 % Invalid Interpretation Code 11.6-14.6 [facility] Work Phone: [phone] Erythrocyte distribution width Auto Ratio (RBC) 14.2 % Invalid Interpretation Code 11.6-14.6 [facility] Work Phone: [phone] Erythrocytes (RBC) 4.41 10*6/uL Low 4.6-6.[address] [facility] Work Phone: [phone] Hematocrit (Bld) [Volume fraction] 40.5 % Invalid Interpretation Code 40-54 [facility] Work Phone: Hematocrit (HCT) 40.5 % Invalid Interpretation Code 40-54 [facility] Work Phone: Hemoglobin (Bld) [Mass/Vol] 13.4 g/dL Invalid Interpretation Code 13.0-16.5 [facility] Work Phone: Immature granulocytes/100 WBC (Bld) 0.200 % Invalid Interpretation Code 0.0-0.9 [facility] Work Phone: Lymphocytes 1.60 X10 3/UL Invalid Interpretation Code 0.83-4.51 [facility] Work Phone: Lymphocytes (Bld) [#/Vol] 1.60 X10 3/UL Invalid Interpretation Code 0.83-4.51 [facility] Work Phone: Lymphocytes/100 leukocytes 34.6 % Invalid Interpretation Code 19-41 [facility] Work Phone: Lymphocytes/100 WBC (Bld) 34.6 % Invalid Interpretation Code 19-41 [facility] Work Phone: MCH 30.4 pg Invalid Interpretation Code 27.0-32.0 [facility] Work Phone: MCH (RBC) [Entitic mass] 30.4 pg Invalid Interpretation Code 27.0-32.0 [facility] Work Phone: MCHC mass conc (RBC) 33.1 G/GL Invalid Interpretation Code 32-36 [employer] Work Phone: MCV 91.8 fL Invalid Interpretation Code 80-94 [employer] Work Phone: MCV (RBC) [Entitic vol] 91.8 fL Invalid Interpretation Code 80-94 [facility] Work Phone: mean corpuscular hemoglobin concentration, RBC 33.1 G/GL Invalid Interpretation Code 32-36 [employer] Work Phone: Monocytes/100 leukocytes 9.5 % Invalid Interpretation Code 0-10 [facility] Work Phone: Monocytes/100 WBC (Bld) 9.5 % Invalid Interpretation Code 0-10 [facility] Work Phone: [phone] neutrophil count, blood 2.3 X10 3/UL Invalid Interpretation Code 2.0-7.7 [facility] Work Phone: Neutrophils/100 WBC (Bld) 49.5 % Invalid Interpretation Code 47-70 [facility] Work Phone: Neutrophils/100 WBC Auto (Bld) 49.5 % Invalid Interpretation Code 47-70 [facility] Work Phone: Platelet mean volume (Bld) [Entitic vol] 11.6 fL Invalid Interpretation Code 6.2-12.0 [facility] Work Phone: [phone] Platelets 170 10*3/mm3 Invalid Interpretation Code 150-450 [facility] Work Phone: Platelets (Bld) [#/Vol] 170 10*3/uL Invalid Interpretation Code 150-450 [facility] Work Phone: [phone] PMV by Armando 11.6 fL Invalid Interpretation Code 6.2-12.0 [facility] Work Phone: RBC (Bld) [#/Vol] 4.41 10*6/uL Low 4.6-6.2 [facility] Work Phone: RDW SD 47.8 fL High 35.1-43.9 [facility] Work Phone: red blood cell distribution width, size density 47.8 fL High 35.1-43.9 [facility] Work Phone: WBC (Bld) [#/Vol] 4.6 10*3/uL Invalid Interpretation Code 4.4-11.0 [facility] Work Phone: WBC (Leukocytes) 4.6 10*3/uL Invalid Interpretation Code 4.4-11.0 [facility] Work Phone: Lab Report: T4 Total, Thyrox inon 10-09-2016 T4 [Mass/Vol] 9.1 ug/dL Invalid Interpretation Code 4.5-12.1 [facility] Work Phone: [phone] Lab Report: Thyroid Stim Hor fernanda (TSH)on 10-09-2016 Thyroid stimulating hormone (TSH) 0.98 u[iU]/mL Invalid Interpretation Code 0.358-3.74 [facility] Work Phone: [phone] TSH Qn 0.98 m[IU]/L Invalid Interpretation Code 0.358-3.74 [facility] Work Phone: [phone] Clinical Lists Update: Prelo crystal inspector 10-08-2016 Left ventricular Ejection fraction 35 % Invalid Interpretation Code [facility] Work Phone: [phone] Lab Report: Prothrombin Time w/INRon 04-08-2016 INR Coag (PPP) [Relative time] 1.1 {INR} Invalid Interpretation Code [facility] Work Phone: [phone] Prothrombin time (PT) Coag time (PPP) 13.4 s Invalid Interpretation Code 11.7-14.9 [facility] Work Phone: [phone] PT Coag (PPP) [Time] 13.415755128 s Invalid Interpretation Code 11.7-14.9 [facility] Work Phone: [phone] Lab Report: Urinalysis, Rout ine (Dipstick)on 04-08-2016 Albumin Ql (U) 15 High Negative [facility] Work Phone: [phone] Bilirubin Ql (U) Negative Invalid Interpretation Code Negative [facility] Work Phone: [phone] Bilirubin Ql (U) Negative Invalid Interpretation Code Negative [facility] Work Phone: [phone] Clarity (U) Clear Invalid Interpretation Code Clear [facility] Work Phone: [phone] Color (U) Yellow Invalid Interpretation Code Yellow [facility] Work Phone: [phone] Glucose Ql (U) 100 mg/dL High Normal [facility] Work Phone: [phone] Ketones (U) [Mass/Vol] Negative Invalid Interpretation Code Negative [facility] Work Phone: [phone] Leukocyte esterase Test strip Ql (U) Negative Invalid Interpretation Code Negative [facility] Work Phone: [phone] NITRITE UR Negative Invalid Interpretation Code Negative [facility] Work Phone: [phone] Occult Blood, urine Negative Invalid Interpretation Code Negative [facility] Work Phone: [phone] OCCULT BLOOD-UR Negative Invalid Interpretation Code Negative [facility] Work Phone: [phone] pH (U) 5.0 [pH] Invalid Interpretation Code 5.0 - 8.0 [facility] Work Phone: [phone] Specific gravity Refractometry (U) [Rel density] 1.025 Invalid Interpretation Code 1.002-1.03 0 [facility] Work Phone: [phone] Urine, ketones presence Negative Invalid Interpretation Code Negative [facility] Work Phone: [phone] Urine, leukocyte esterase presence Negative Invalid Interpretation Code Negative [facility] Work Phone: [phone] Urine, pH 5.0 [pH] Invalid Interpretation Code 5.0 - 8.0 [facility] Work Phone: [phone] Urine, protein 15 mg/dL High Negative [facility] Work Phone: [phone] UROBILI Normal mg/dl Invalid Interpretation Code Normal [facility] Work Phone: [phone] Office Visiton 04-08-2016 Tobacco smoking status Tobacco smoking s tatus NHIS Invalid Interpretation Code [facility] Work Phone: [phone] Tobacco use status [facility] Never smoker Invalid Interpretation Code [facility] Work Phone: [phone] Replaced Document: Brent E CG Observationson 04-08-2016 EKG QRS axis -22 deg Invalid Interpretation Code [facility] Work Phone: [phone] electrocardiogram interpretation Sinus Bradycardia - Nonspecific T-abnormality. ABNORMAL Invalid Interpretation Code [facility] Work Phone: [phone] GE use only - for [employer] import when terms are not otherwise specified 440 ms Invalid Interpretation Code [facility] Work Phone: [phone] Heart rate 52 /min Invalid Interpretation Code [facility] Work Phone: [phone] Interpretation Sinus Bradycardia - Nonspecific T-abnormality. ABNORMAL Invalid Interpretation Code [facility] Work Phone: [phone] P [place] 25 deg Invalid Interpretation Code [facility] Work Phone: [phone] P wave axis, electrocardiogram 25 deg Invalid Interpretation Code [facility] Work Phone: [phone] HI Interval 174 ms Invalid Interpretation Code [facility] Work Phone: [phone] HI interval, electrocardiogram 174 ms Invalid Interpretation Code [facility] Work Phone: [phone] QRS axis, electrocardiogram -22 deg Invalid Interpretation Code [facility] Work Phone: [phone] QRS Duration 108 ms Invalid Interpretation Code [facility] Work Phone: [phone] QRS duration, electrocardiogram 108 ms Invalid Interpretation Code [facility] Work Phone: [phone] QT Interval new path ms Invalid Interpretation Code [facility] Work Phone: [phone] QT interval, electrocardiogram new path ms Invalid Interpretation Code [facility] Work Phone: [phone] QTc Serra 440 ms Invalid Interpretation Code [facility] Work Phone: [phone] T [place] 90 deg Invalid Interpretation Code [facility] Work Phone: [phone] T wave axis, electrocardiogram 90 deg Invalid Interpretation Code [facility] Phone: [phone] Lab Report: Lipid Profileon 09-30-2015 Cholesterol [Mass/Vol] 107 mg/dL Invalid Interpretation Code 200 [facility] Phone: [phone] Cholesterol in HDL [Mass/Vol] 45 mg/dL Invalid Interpretation Code [facility] Work Phone: [phone] Cholesterol in LDL [Mass/Vol] 42 mg/dL Invalid Interpretation Code 0-130 [facility] Work Phone: [phone] Lipoprotein.pre-beta [Mass/Vol] 20 mg/dL Invalid Interpretation Code 5-40 [facility] Work Phone: [phone] Triglyceride [Mass/Vol] 99 mg/dL Invalid Interpretation Code [facility] Work Phone: [phone] Lab Report: Liver Profileon 09-30-2015 Albumin [Mass/Vol] 4.0 g/dL Invalid Interpretation Code 3.4-5.0 [facility] Work Phone: [phone] Alkaline phosphatase (ALP) 59 U/L Invalid Interpretation Code 50-136 [facility] Work Phone: [phone] ALP (Bld) [Catalytic activity/Vol] 59 U/L Invalid Interpretation Code 50-136 [facility] Work Phone: [phone] ALT [Catalytic activity/Vol] 28 U/L Invalid Interpretation Code 12-78 [facility] Work Phone: [phone] AST [Catalytic activity/Vol] 20 U/L Invalid Interpretation Code 15-37 [facility] Work Phone: [phone] Bilirubin [Mass/Vol] 1.40 mg/dL High 0.20-1.[address] [facility] Work Phone: [phone] Bilirubin.direct [Mass/Vol] 0.30 mg/dL Invalid Interpretation Code 0.00-0.30 [facility] Work Phone: [phone] Globulin 3.2 g/dL Invalid Interpretation Code 2.3-3.5 [facility] Work Phone: [phone] Globulin (S) [Mass/Vol] 3.2 g/dL Invalid Interpretation Code 2.3-3.5 [facility] Work Phone: [phone] Protein [Mass/Vol] 7.2 g/dL Invalid Interpretation Code 6.4-8.2 [facility] Work Phone: [phone] Office Visit: [facility] 09-09-20 15 General cardiovascular disease 10Y risk [#] Grisel'Fernando Not enough information Invalid Interpretation Code [facility] Work Phone: [phone] Lab Report: BNP,B-Type NATRI URETIC PEPTIDEon 11-14-2014 Natriuretic peptide B (Bld) [Mass/Vol] 86.4 pg/mL Invalid Interpretation Code 0-100 [facility] Work Phone: [phone] Lab Report: CBC W/Diff, Auto matedon 11-14-2014 Absolute Neut 2.7 X10 3/UL Invalid Interpretation Code 2.0-7.7 [facility] Work Phone: [phone] Absolute Neutrophil count 2.7 X10 3/UL Invalid Interpretation Code 2.0-7.7 [facility] Work Phone: [phone] Office Visit: [facility] 11-14-19 15 cardiac risk group C Invalid Interpretation Code [facility] Work Phone: Tobacco smoking status Never Invalid Interpretation Code [facility] Work Phone: Lab Report: MGon 08-12-2012 Magnesium [Mass/Vol] 2.0 mg/dL Normal 1.8-2.4 [facility] Work Phone: Replaced Document: Brent ROQUE Observationson 08-10-2012 Pulse (Heart Rate) 407 ms Invalid Interpretation Code [facility] Work Phone: QT interval/QT interval (corrected for heart rate), electrocardiogram 407 ms Invalid Interpretation Code [facility] Work Phone: Vital Signs Date Time Vital Sign Value Performing Clinician Facility 04-27-2025 23:07-0400 Body temperature 98.3 [degF] Dr. John Mckeon DO Work Phone: [facility] 04-27-2025 23:07-0400 Diastolic blood pressure 60 mm[Hg] Dr. John Mckeon DO Work Phone: [facility] 04-27-2025 23:07-0400 Heart rate 100 /min Dr. John Mckeon DO Work Phone: [facility] 04-27-2025 23:07-0400 Respiratory rate 18 /min Dr. John Mckeon DO Work Phone: [facility] 04-27-2025 23:07-0400 SaO2% (BldA) [Mass fraction] 97 % Dr. John Mckeon DO Work Phone: [facility] 04-27-2025 23:07-0400 Systolic blood pressure 146 mm[Hg] Dr. John Mckeon DO Work Phone: [facility] 04-27-2025 20:05-0400 Body height 160.[address] John Mckeon DO Work Phone: [facility] 04-27-2025 20:05-0400 Body mass index (BMI) [Ratio] 21.2 kg/m2 Dr. John Mckeon DO Work Phone: [facility] 04-27-2025 20:05-0400 Body weight 54.[address] John Mckeon DO Work Phone: [facility] 03-12-2025 07:30-0400 Body mass index (BMI) [Ratio] 20.7 kg/m2 Dr. John Mckeon DO Work Phone: [facility] 03-12-2025 07:30-0400 Body weight 53.[address] John Mckeon DO Work Phone: [facility] 03-12-2025 07:30-0400 Diastolic blood pressure 79 mm[Hg] Dr. John Mckeon DO Work Phone: [facility] 03-12-2025 07:30-0400 Heart rate 69 /min Dr. John Mckeon DO Work Phone: [facility] 03-12-2025 07:30-0400 Respiratory rate 18 /min Dr. John Mckeon DO Work Phone: [facility] 03-12-2025 07:30-0400 SaO2% (BldA) [Mass fraction] 97 % Dr. John Mckeon DO Work Phone: [facility] 03-12-2025 07:30-0400 Systolic blood pressure 139 mm[Hg] Dr. John Mckeon DO Work Phone: [facility] 02-26-2025 15:47-0400 Diastolic blood pressure 94 mm[Hg] Jian Jiménez MD MPH Work Phone: [facility] 02-26-2025 15:47-0400 Heart rate 72 /min Jian Jiménez MD MPH Work Phone: [facility] 02-26-2025 15:47-0400 Systolic blood pressure 162 mm[Hg] Jian Jiménez MD MPH Work Phone: [facility] 12-16-2024 17:23-0500 Body temperature 98.4 [degF] Dr. John Mckeon DO Work Phone: [facility] 12-16-2024 17:23-0500 Diastolic blood pressure 83 mm[Hg] Dr. John Mckeon DO Work Phone: [facility] 12-16-2024 17:23-0500 Heart rate 89 /min Dr. John Mckeon DO Work Phone: [facility] 12-16-2024 17:23-0500 Respiratory rate 17 /min Dr. John Mckeon DO Work Phone: [facility] 12-16-2024 17:23-0500 SaO2% (BldA) [Mass fraction] 96 % Dr. John Mckeon DO Work Phone: [facility] 12-16-2024 17:23-0500 Systolic blood pressure 146 mm[Hg] Dr. John Mckeon DO Work Phone: [facility] 12-16-2024 14:58-0500 Body height 160.[address] John Mckeon DO Work Phone: [facility] 12-16-2024 14:58-0500 Body mass index (BMI) [Ratio] 20 kg/m2 Dr. John Mckeon DO Work Phone: [facility] 12-16-2024 14:58-0500 Body weight 51.[address] John Mckeon DO Work Phone: [facility] 12-13-2024 15:40-0500 Body height 160 cm Urology Room [facility] 12-13-2024 15:40-0500 Body mass index (BMI) [Ratio] 20.55 kg/m2 Urology [facility] 12-13-2024 15:40-0500 Body weight 52.62 kg Urology [facility] 11-10-2024 10:58-0500 Body mass index (BMI) [Ratio] 21.4 kg/m2 Dr. John Mckeon DO Work Phone: [facility] 11-10-2024 10:58-0500 Body weight 54.[address] John Mckeon DO Work Phone: [facility] 11-10-2024 10:58-0500 Diastolic blood pressure 64 mm[Hg] Dr. John Mckeon DO Work Phone: [facility] 11-10-2024 10:58-0500 Heart rate 69 /min Dr. John Mckeon DO Work Phone: [facility] 11-10-2024 10:58-0500 Respiratory rate 16 /min Dr. John Mckeon DO Work Phone: [facility] 11-10-2024 10:58-0500 Systolic blood pressure 142 mm[Hg] Dr. John Mckeon DO Work Phone: [facility] 07-25-2024 13:00-0400 Diastolic blood pressure 61 mm[Hg] Asmita Zambrano MD Work Phone: [facility] 07-25-2024 13:00-0400 Heart rate 60 /min Asmita Zambrano MD Work Phone: [facility] 07-25-2024 13:00-0400 Respiratory rate 18 /min Asmita Zambrano MD Work Phone: [facility] 07-25-2024 13:00-0400 SaO2% (BldA) [Mass fraction] 96 % Asmita Zambrano MD Work Phone: [facility] 07-25-2024 13:00-0400 Systolic blood pressure 152 mm[Hg] Asmita Zambrano MD Work Phone: [facility] 07-25-2024 12:00-0400 Body temperature 97.5 [degF] Asmita Zambrano MD Work Phone: [facility] 07-25-2024 08:58-0400 Body height 160 cm Asmita Zambrano MD Work Phone: [facility] 07-25-2024 08:58-0400 Body mass index (BMI) [Ratio] 19.49 kg/m2 Asmita Zambrano MD Work Phone: [facility] 07-25-2024 08:58-0400 Body weight 49.9 kg Asmita Zambrano MD Work Phone: 9(821)787-231574 [place] [address] 07-12-2024 15:25-0400 Body mass index (BMI) [Ratio] 18.95 kg/m2 Asmita Zambrano MD Work Phone: 3(477)625-612474 [place] [address] 07-12-2024 15:25-0400 Body weight 48.53 kg Asmita Zambrano MD Work Phone: 9(534)694-464574 [place] [address] 07-12-2024 15:25-0400 Diastolic blood pressure 74 mm[Hg] Asmita Zambrano MD Work Phone: 3(727)949-665174 [place] [address] 07-12-2024 15:25-0400 Heart rate 68 /min Asmita Zambrano MD Work Phone: 9(631)696-636774 [place] [address] 07-12-2024 15:25-0400 Systolic blood pressure 143 mm[Hg] Asmita Zambrano MD Work Phone: 5(879)843-228574 [place] [address] 06-28-2024 13:36-0400 Body mass index (BMI) [Ratio] 18.6 kg/m2 Asmita Zambrano MD Work Phone: [facility] 06-28-2024 13:36-0400 Body weight 47.63 kg Asmita Zambrano MD Work Phone: [facility] 06-28-2024 13:36-0400 Diastolic blood pressure 80 mm[Hg] Asmita Zambrano MD Work Phone: [facility] 06-28-2024 13:36-0400 Heart rate 62 /min Asmita Zambrano MD Work Phone: 8(297)131-316874 [place] [address] 06-28-2024 13:36-0400 Systolic blood pressure 167 mm[Hg] Asmita Zambrano MD Work Phone: 0(159)274-521774 [place] [address] 06-14-2024 13:14-0400 Body height 160 cm Asmita Zambrano MD Work Phone: [facility] 06-14-2024 13:14-0400 Body mass index (BMI) [Ratio] 18.6 kg/m2 Asmita Zambrano MD Work Phone: [facility] 06-14-2024 13:14-0400 Body weight 47.63 kg Asmita Zambrano MD Work Phone: [facility] 05-17-2024 13:17-0400 Body height 160 cm Asmita Zambrano MD Work Phone: [facility] 05-17-2024 13:17-0400 Body mass index (BMI) [Ratio] 20.02 kg/m2 Asmita Zambrano MD Work Phone: [facility] 05-17-2024 13:17-0400 Body weight 51.26 kg Asmita Zambrano MD Work Phone: [facility] 05-17-2024 13:17-0400 Respiratory rate 16 /min Asmita Zambrano MD Work Phone: [facility] 04-26-2024 13:58-0400 Body weight 50.8 kg Asmita Zambrano MD Work Phone: [facility] 04-26-2024 13:58-0400 Respiratory rate 16 /min Asmita Zambrano MD Work Phone: 1(866)308-738574 [place] [address] 11-23-2023 14:19-0500 Body height 160.[address] John Mckeon Work Phone: [facility] 11-23-2023 14:19-0500 Body mass index (BMI) [Ratio] 21 kg/m2 Dr. John Mckeon Work Phone: [facility] 11-23-2023 14:19-0500 Body weight 53.[address] John Mckeon Work Phone: [facility] 11-23-2023 14:19-0500 Diastolic blood pressure 69 mm[Hg] Dr. John Mckeon Work Phone: [facility] 11-23-2023 14:19-0500 Heart rate 66 /min Dr. John Mckeon Work Phone: [facility] 11-23-2023 14:19-0500 Respiratory rate 18 /min Dr. John Mckeon Work Phone: [facility] 11-23-2023 14:19-0500 SaO2% (BldA) [Mass fraction] 99 % Dr. John Mckeon Work Phone: [facility] 11-23-2023 14:19-0500 Systolic blood pressure 128 mm[Hg] Dr. John Mckeon Work Phone: [facility] 10-22-2023 16:24-0500 Body temperature 98.4 [degF] Dr. John Mckeon Work Phone: [facility] 10-22-2023 16:24-0500 Diastolic blood pressure 60 mm[Hg] Dr. John Mckeon Work Phone: [facility] 10-22-2023 16:24-0500 Heart rate 64 /min Dr. John Mckeon Work Phone: [facility] 10-22-2023 16:24-0500 Respiratory rate 18 /min Dr. John Mckeon Work Phone: [facility] 10-22-2023 16:24-0500 SaO2% (BldA) [Mass fraction] 99 % Dr. John Mckeon Work Phone: [facility] 10-22-2023 16:24-0500 Systolic blood pressure 110 mm[Hg] Dr. John Mckeon Work Phone: [facility] 10-20-2023 16:00-0500 Body height 160.[address] John Mckeon Work Phone: [facility] 10-20-2023 16:00-0500 Body mass index (BMI) [Ratio] 20.7 kg/m2 Dr. John Mckeon Work Phone: [facility] 10-20-2023 16:00-0500 Body weight [address] John Mckeon Work Phone: [facility] 09-06-2023 14:09-0500 Body temperature 97.4 [degF] Dr. John Mckeon Work Phone: [facility] 09-06-2023 14:09-0500 Diastolic blood pressure 74 mm[Hg] Dr. John Mckeon Work Phone: [facility] 09-06-2023 14:09-0500 Heart rate 78 /min Dr. John Mckeon Work Phone: [facility] 09-06-2023 14:09-0500 Respiratory rate 18 /min Dr. John Mckeon Work Phone: [facility] 09-06-2023 14:09-0500 SaO2% (BldA) [Mass fraction] 95 % Dr. John Mckeon Work Phone: [facility] 09-06-2023 14:09-0500 Systolic blood pressure 139 mm[Hg] Dr. John Mckeon Work Phone: [facility] 09-06-2023 06:00-0500 Body mass index (BMI) [Ratio] 19.2 kg/m2 Dr. John Mckeon Work Phone: [facility] 09-06-2023 06:00-0500 Body weight 49.[address] John Mckeon Work Phone: [facility] 09-06-2023 04:00-0500 Body temperature 97.5 [degF] Dr. John Mckeon Work Phone: [facility] 09-06-2023 04:00-0500 Diastolic blood pressure 57 mm[Hg] Dr. John Mckeon Work Phone: [facility] 09-06-2023 04:00-0500 Heart rate 64 /min Dr. John Mckeon Work Phone: [facility] 09-06-2023 04:00-0500 Respiratory rate 16 /min Dr. John Mckeon Work Phone: [facility] 09-06-2023 04:00-0500 SaO2% (BldA) [Mass fraction] 97 % Dr. John Mckeon Work Phone: [facility] 09-06-2023 04:00-0500 Systolic blood pressure 118 mm[Hg] Dr. John Mckeon Work Phone: [facility] 09-05-2023 09:30-0500 Body height 160.[address] John Mckeon Work Phone: [facility] 09-04-2023 18:13-0400 Body temperature 98.2 [degF] Dr. John Mckeon Work Phone: [facility] 09-04-2023 18:13-0400 Diastolic blood pressure 76 mm[Hg] Dr. John Mckeon Work Phone: [facility] 09-04-2023 18:13-0400 Heart rate 82 /min Dr. John Mckeon Work Phone: [facility] 09-04-2023 18:13-0400 Respiratory rate 14 /min Dr. John Mckeon Work Phone: [facility] 09-04-2023 18:13-0400 SaO2% (BldA) [Mass fraction] 97 % Dr. John Mckeon Work Phone: [facility] 09-04-2023 18:13-0400 Systolic blood pressure 108 mm[Hg] Dr. John Mckeon Work Phone: [facility] 09-04-2023 15:20-0400 Body height 160.[address] John Mckeon Work Phone: [facility] 09-04-2023 15:20-0400 Body mass index (BMI) [Ratio] 19.9 kg/m2 Dr. John Mckeon Work Phone: [facility] 09-04-2023 15:20-0400 Body weight 51.[address] John Mckeon Work Phone: [facility] 06-17-2023 14:40-0400 Diastolic blood pressure 73 mm[Hg] Dr. John Mckeon Work Phone: [facility] 06-17-2023 14:40-0400 Heart rate 55 /min Dr. John Mckeon Work Phone: [facility] 06-17-2023 14:40-0400 Respiratory rate 16 /min Dr. John Mckeon Work Phone: [facility] 06-17-2023 14:40-0400 Systolic blood pressure 148 mm[Hg] Dr. John Mckeon Work Phone: [facility] 02-25-2023 14:39-0400 Body height 160.[address] John Mckeon Work Phone: [facility] 02-25-2023 14:39-0400 Body mass index (BMI) [Ratio] 30 kg/m2 Dr. John Mckeon Work Phone: [facility] 02-25-2023 14:39-0400 Body weight 76.[address] John Mckeon Work Phone: [facility] 02-25-2023 14:39-0400 Diastolic blood pressure 83 mm[Hg] Dr. John Mckeon Work Phone: [facility] 02-25-2023 14:39-0400 Heart rate 78 /min Dr. John Mckeon Work Phone: [facility] 02-25-2023 14:39-0400 Respiratory rate 18 /min Dr. John Mckeon Work Phone: [facility] 02-25-2023 14:39-0400 Systolic blood pressure 130 mm[Hg] Dr. John Mckeon Work Phone: [facility] 01-06-2023 12:03-0500 Diastolic blood pressure 51 mm[Hg] Dr. John Mckeon Work Phone: [facility] 01-06-2023 12:03-0500 Heart rate 76 /min Dr. John Mckeon Work Phone: [facility] 01-06-2023 12:03-0500 Respiratory rate 15 /min Dr. John Mckeon Work Phone: [facility] 01-06-2023 12:03-0500 SaO2% (BldA) [Mass fraction] 96 % Dr. John Mckeon Work Phone: [facility] 01-06-2023 12:03-0500 Systolic blood pressure 109 mm[Hg] Dr. John Mckeon Work Phone: [facility] 01-06-2023 08:51-0500 Body mass index (BMI) [Ratio] 21 kg/m2 Dr. John Mckeon Work Phone: [facility] 01-06-2023 08:51-0500 Body temperature 98.2 [degF] Dr. John Mckeon Work Phone: [facility] 01-06-2023 08:51-0500 Body weight 53.[address] John Mckeon Work Phone: [facility] 12-28-2022 00:08-0500 Diastolic blood pressure 77 mm[Hg] Dr. Shailesh Mancini Work Phone: [facility] 12-28-2022 00:08-0500 Heart rate 72 /min Dr. Shailesh Mancini Work Phone: [facility] 12-28-2022 00:08-0500 Respiratory rate 16 /min Dr. Shailesh Mancini Work Phone: [facility] 12-28-2022 00:08-0500 SaO2% (BldA) [Mass fraction] 98 % Dr. Shailesh Mancini Work Phone: [facility] 12-28-2022 00:08-0500 Systolic blood pressure 139 mm[Hg] Dr. Shailesh Mancini Work Phone: [facility] 12-27-2022 20:29-0500 Body height 160.[address] Shailesh Mancini Work Phone: [facility] 12-27-2022 20:29-0500 Body mass index (BMI) [Ratio] 20.5 kg/m2 Dr. Shailesh Mancini Work Phone: [facility] 12-27-2022 20:29-0500 Body temperature 97.1 [degF] Dr. Shailesh Mancini Work Phone: [facility] 12-27-2022 20:29-0500 Body weight 52.[address] Shailesh Mancini Work Phone: [facility] 10-21-2022 17:07-0500 Body temperature 97.9 [degF] Dr. Shailesh Mancini Work Phone: [facility] 10-21-2022 17:07-0500 Diastolic blood pressure 64 mm[Hg] Dr. Shailesh Mancini Work Phone: [facility] 10-21-2022 17:07-0500 Heart rate 83 /min Dr. Shailesh Mancini Work Phone: [facility] 10-21-2022 17:07-0500 Respiratory rate 16 /min Dr. Shailesh Mancini Work Phone: [facility] 10-21-2022 17:07-0500 SaO2% (BldA) [Mass fraction] 96 % Dr. Shailesh Mancini Work Phone: [facility] 10-21-2022 17:07-0500 Systolic blood pressure 121 mm[Hg] Dr. Shailesh Mancini Work Phone: [facility] 10-21-2022 11:02-0500 Body height 160.[address] Shailesh Mancini Work Phone: [facility] Work Phone: 10-21-2022 11:02-0500 Body mass index (BMI) [Ratio] 20.2 kg/m2 Dr. Shailesh Mancini Work Phone: [facility] 10-21-2022 11:02-0500 Body weight [address] Shailesh Mancini Work Phone: [facility] 08-05-2022 14:36-0400 Body height 160.[address] Shailesh Mancini Work Phone: [facility] Work Phone: 08-05-2022 14:36-0400 Body mass index (BMI) [Ratio] 20.2 kg/m2 Dr. Shailesh Mancini Work Phone: [facility] Work Phone: 08-05-2022 14:36-0400 Body weight 51.[address] Shailesh Mancini Work Phone: [facility] Work Phone: 08-05-2022 14:36-0400 Diastolic blood pressure 60 mm[Hg] Dr. Shailesh Mancini Work Phone: [facility] Work Phone: 08-05-2022 14:36-0400 Heart rate 64 /min Dr. Shailesh Mancini Work Phone: [facility] Work Phone: 08-05-2022 14:36-0400 Respiratory rate 18 /min Dr. Shailesh Mancini Work Phone: [facility] Work Phone: 08-05-2022 14:36-0400 Systolic blood pressure 98 mm[Hg] Dr. Shailesh Mancini Work Phone: [facility] Work Phone: 06-03-2022 15:34-0400 Diastolic blood pressure 42 mm[Hg] Shailesh Mancini [facility] Work Phone: 06-03-2022 15:34-0400 Heart rate 72 /min [facility] Work Phone: 06-03-2022 15:34-0400 Respiratory rate 20 /min [facility] Work Phone: 06-03-2022 15:34-0400 Systolic blood pressure 110 mm[Hg] [facility] Work Phone: 03-05-2022 14:27-0400 Body height 160.02 cm [facility] Work Phone: 03-05-2022 14:27-0400 Body mass index (BMI) [Ratio] 20.3 kg/m2 [facility] Work Phone: 03-05-2022 14:27-0400 Body weight 52.16 kg [facility] Work Phone: 03-05-2022 14:27-0400 Diastolic blood pressure 59 mm[Hg] [facility] Work Phone: 03-05-2022 14:27-0400 Heart rate 55 /min [facility] Work Phone: 03-05-2022 14:27-0400 Respiratory rate 12 /min [facility] Work Phone: 03-05-2022 14:27-0400 Systolic blood pressure 121 mm[Hg] [facility] Work Phone: 03-05-2022 14:27-0400 Body height 160.02 cm [facility] Work Phone: 03-05-2022 14:27-0400 Body mass index (BMI) [Ratio] 20.3 kg/m2 [facility] Work Phone: 03-05-2022 14:27-0400 Body weight 52.16 kg [facility] Work Phone: 03-05-2022 14:27-0400 Diastolic blood pressure 59 mm[Hg] [facility] Work Phone: 03-05-2022 14:27-0400 Heart rate 55 /min [facility] Work Phone: 03-05-2022 14:27-0400 Respiratory rate 12 /min [facility] Work Phone: 03-05-2022 14:27-0400 Systolic blood pressure 121 mm[Hg] [facility] Work Phone: 05-24-2017 11:35-0400 Body height 160.02 cm [facility] Work Phone: 05-24-2017 11:35-0400 Body mass index (BMI) [Ratio] 23.82 kg/m2 Maureen Forman [facility] Work Phone: 05-24-2017 11:35-0400 Body [...] Systolic blood pressure 116 mm[Hg] Maureen Eliasz [facility] Work Phone: 05-24-2017 11:35-0400 Weight 61.01 kg Elsy Grubbs RN [facility] Work Phone: 04-12-2017 13:39-0400 [...] 13:39-0400 Weight 60.06 kg Elsy Grubbs RN [facility] Work Phone: 10-09-2016 12:49-0500 Body mass index (BMI) [Ratio] 24.05 kg/m2 Elsy Grubbs RN [facility] Work Phone: 10-09-2016 12:49-0500 Body [...] Work Phone: Start: 04-25-2025 ambulatory MARYURI ROMEOIN Facility:[facility] Start: 04-24-2025 End: 04-24-2025 Office outpatient visit 15 minutes Cheryl Adeel Cromwell [employer] TECHNICIAN-NUCLEAR MEDICINE TECHNOLOGIST Work Phone: [facility] Comment on above: Prostate cancer (Mul ti) (Primary Dx); Urinary retention; Bladder spasm; Malignant neoplasm of prostate (Multi) Start: 04-24-2025 End: 04-24-[address] [facility] Start: 04-09-2025 End: 04-09-[address] [facility] Start: 03-12-2025 End: 03-12-2025 Patient encounter procedure Cynthia PRO -[facility] Work Phone: Start: 03-12-2025 End: 03-12-2025 ambulatory [facility] Facility:[facility] Start: 02-26-2025 End: 02-26-2025 Patient encounter procedure Jian Jiménez MD MPH Work Phone: [facility] Comment on above: Urinary retention Start: 02-26-2025 End: 02-26-[address] [facility] Start: 02-05-2025 End: 02-05-[address] John Mckeon DO Work Phone: [facility] Work Phone: Start: 02-05-2025 End: 02-05-[address] John Mckeon DO -[facility] Start: 02-05-2025 End: 02-05-2025 ambulatory [facility] Facility:[facility] Start: 01-03-2025 End: 01-03-[address] [facility] Start: 01-03-2025 End: 01-03-2025 Office outpatient visit 5 minutes Asmita Zambrano MD Work Phone: [facility] Comment on above: Urinary retention Start: 12-16-2024 End: 12-16-2024 Emergency department patient visit Dr. Timoteo Mckenna DO -Emergency Department Work Phone: Start: 12-13-2024 End: 12-13-2024 Patient encounter procedure Urology [id number] Procedure Room [facility] Comment on above: Bladder spasms (Prim federico Dx); Urinary retention Start: 12-13-2024 End: 12-13-[address] [facility] Start: 12-08-2024 End: 12-08-[address] John Mckeon DO -Laboratory, [facility] Start: 12-08-2024 End: 12-08-2024 ambulatory [facility] Facility:[facility] Start: 12-06-2024 End: 12-06-2024 Office outpatient visit 15 minutes Asmita Zambrano MD Work Phone: [facility] Comment on above: Urinary retention; Bladder spasm; Malignant neoplasm of prostate (Multi) Start: 12-06-2024 End: 12-06-[address] [facility] Start: 12-01-2024 End: 12-01-2024 ambulatory [facility] Facility:[facility] Start: 12-01-2024 End: 12-01-[address] Timoteo Mullins MD -[facility] Work Phone: Start: 11-10-2024 End: 11-10-[address] Timoteo Mullins MD -[facility] Work Phone: Start: 11-10-2024 End: 11-10-2024 ambulatory [facility] Facility:[facility] Start: 10-18-2024 End: 10-18-2024 Office outpatient visit 5 minutes Asmita Zambrano MD Work Phone: [facility] Comment on above: Urinary retention Start: 10-18-2024 End: 10-18-[address] [facility] Start: 09-06-2024 End: 09-07-[address] [facility] Start: 09-01-2024 End: 09-01-2024 ambulatory [facility] Facility:[facility] Start: 08-03-2024 End: 08-03-2024 ambulatory [facility] Facility:[facility] Start: 07-25-2024 End: 07-25-2024 Subsequent hospital visit by physician Asmita Zambrano MD Work Phone: [facility] Comment on above: Urinary retention (P rimary Dx) Start: 07-24-2024 ambulatory [facility] Start: 07-12-2024 End: 07-12-2024 Office outpatient visit 25 minutes Asmita Zambrano MD Work Phone: [facility] Comment on above: Malignant neoplasm o f prostate (Multi); Abnormal digital rectal exam; Elevated PSA; Retention of urine Start: 07-12-2024 End: 07-12-2024 [facility] Ambulatory Start: 07-10-2024 End: 07-10-2024 Subsequent hospital visit by physician Darrell Ghosh [address] [place] [address] Comment on above: Malignant neoplasm o f prostate (Multi) Start: 07-10-2024 End: 07-10-2024 [facility]ulatory [facility] [facility] Start: 07-06-2024 End: 07-06-2024 ambulatory [facility] Facility:[facility] Start: 06-28-2024 End: 06-28-2024 Office outpatient visit 25 minutes Asmita Zambrano MD Work Phone: [facility] Comment on above: Elevated PSA; Abnormal digital rectal exam; Malignant neoplasm of prostate (Multi); Retention of urine Start: 06-28-2024 End: 06-28-2024 ambulatory [facility] Start: 06-14-2024 End: 06-14-2024 Patient encounter procedure Asmita Zambrano MD Work Phone: [facility] Comment on above: Elevated PSA (Primar y Dx) Start: 06-14-2024 End: 06-14-[address] [facility] Start: 06-02-2024 End: 06-02-2024 ambulatory [facility] Facility:[facility] Start: 05-31-2024 End: 05-31-2024 ambulatory [facility] Facility:[facility] Start: 05-30-2024 End: 05-30-2024 ambulatory [facility] Facility:[facility] Start: 05-24-2024 End: 05-24-2024 ambulatory [facility] Start: 05-23-2024 End: 05-23-2024 ambulatory [facility] Start: 05-17-2024 End: 05-17-2024 Patient encounter procedure Asmita Zambrano MD Work Phone: [facility] Comment on above: Incomplete bladder e mptying (Primary Dx) Start: 05-17-2024 End: 05-17-[address] [facility] Start: 05-17-2024 End: 05-17-2024 ambulatory [facility] Facility:[facility] Start: 04-26-2024 End: 04-26-2024 Office outpatient new 45 minutes Asmita Zambrano MD Work Phone: [facility] Comment on above: Benign prostatic hyp erplasia with lower urinary tract symptoms, symptom details unspecified; Retention of urine; Nocturia; Abnormal digital rectal exam Start: 04-26-2024 End: 04-26-2024 ambulatory [facility] Start: 11-26-2023 End: 11-26-[address] John Mckeon Work Phone: [facility] Work Phone: Start: 11-26-2023 End: 11-26-[address] John Mckeon Work Phone: [facility] Start: 11-23-2023 End: 11-23-[address] John Mckeon Work Phone: [facility] Work Phone: Start: 10-20-2023 End: 10-22-2023 Evaluation and management of inpatient Dr. John Mckeon Work Phone: [facility] Surgical 3 Work Phone: Start: 10-20-2023 End: 10-22-[address] John Mckeon Work Phone: [facility] Work Phone: Start: 10-12-2023 End: 10-12-2023 Non-patient / Non-visit Dr. John Mckeon Work Phone: [facility] Work Phone: Start: 10-12-2023 End: 10-12-[address] John Mckeon Work Phone: [facility] Work Phone: Start: 10-12-2023 End: 10-12-[address] John Mckeon Work Phone: [facility] Work Phone: Start: 09-15-2023 End: 09-15-[address] John Mckeon Work Phone: [facility] Work Phone: Start: 09-15-2023 End: 09-15-[address] John Mckeon Work Phone: [facility]Laboratory, Specimen Work Phone: Start: 09-06-2023 Non-patient / Non-visit Dr. John Mckeon Work Phone: [facility] Work Phone: Start: 09-05-2023 Non-patient / Non-visit Dr. John Mckeon Work Phone: [facility] Work Phone: Start: 09-04-2023 End: 09-06-2023 Evaluation and management of inpatient Dr. John Mckeon Work Phone: [facility] 3 Work Phone: Start: 09-04-2023 End: 09-06-[address] John Mckeon Work Phone: [facility] Work Phone: Start: 09-03-2023 End: 09-03-[address] John Mckeon Work Phone: [facility] Work Phone: Start: 08-31-2023 End: 08-31-[address] John Mckeon Work Phone: [facility] Work Phone: Start: 08-31-2023 End: 08-31-[address] [facility] Start: 07-20-2023 End: 07-20-[address] John Mckeon Work Phone: [facility] Work Phone: Start: 07-20-2023 End: 07-20-[address] [facility] Start: 07-09-2023 End: 07-09-[address] John Mckeon Work Phone: [facility] Work Phone: Start: 07-09-2023 End: 07-09-[address] [facility] Start: 06-17-2023 End: 06-17-[address] John Mckeon Work Phone: [facility] Work Phone: Start: 05-11-2023 End: 05-11-[address] John Mckeon Work Phone: [facility] Work Phone: Start: 05-11-2023 End: 05-11-[address] John Mckeon Work Phone: [facility] Work Phone: Start: 04-07-2023 End: 04-07-[address] John Mckeon Work Phone: [facility] Work Phone: Start: 03-26-2023 End: 03-26-[address] John Mckeon Work Phone: [facility] Work Phone: Start: 03-26-2023 End: 03-26-[address] John Mckeon Work Phone: [facility] Start: 02-25-2023 End: 02-25-[address] John Mckeon Work Phone: [facility] Start: 02-24-2023 End: 02-24-[address] John Mckeon Work Phone: [facility] Start: 02-17-2023 Non-patient / Non-visit Dr. John Mckeon Work Phone: [facility] Start: 01-06-2023 End: 01-06-2023 Emergency department patient visit Dr. John Mckeon Work Phone: [facility] Start: 12-27-2022 End: 12-28-2022 Emergency department patient visit Dr. Shailesh Mancini Work Phone: [facility] Start: 11-18-2022 End: 11-18-[address] Shailesh Mancini Work Phone: [facility] Start: 10-21-2022 End: 10-21-2022 Admission to same day surgery center Dr[facility]ailesh [facility]ancini [facility] Start: 10-21-2022 End: 10-21-[address] Shailesh Mancini Work Phone: [facility] Work Phone: Start: 10-12-2022 End: 10-12-[address] Shailesh Mancini Work Phone: [facility] Work Phone: Start: 10-12-2022 End: 10-12-[address] [facility] Start: 08-05-2022 End: 08-05-[address] Shailesh Mancini Work Phone: [facility] Start: 07-18-2022 End: 07-18-[address] Shailesh Mancini Work Phone: [facility] Start: 06-03-2022 End: 06-03-2022 Patient encounter procedure [facility] Start: 04-15-2022 End: 04-15-2022 Patient encounter procedure [facility] Start: 03-05-2022 End: 03-05-2022 Patient encounter procedure [facility] Start: 02-03-2022 End: 02-03-2022 [facility] Start: 12-31-2021 End: 12-31-2021 Patient encounter procedure [facility] Start: 10-16-2021 [facility] Start: 10-18-2011 End: 10-18-2011 REFILL - MYCCHRISTIT [...] End: 09-09-2015 Documentation of current medications Abril Dpuree PA-C Work Phone: Start: 09-09-2015 End: 09-30-2016 [...] 11-15-2014 Natriuretic peptide B [Mass/volume] in Blood Abirl Dupree PA-C Work Phone: Start: 10-16-2014 End: [...] DTaP/Tdap/Td Vaccines (2 - Td or Tdap) [facility] Start: 10-24-2025 End: 04-24-2026 Prostate specific Ag [Mass/volume] in Serum or Plasma PSA Lab Routine Prostate cancer (Multi) Expected: 10/24/2025 (Approximate), Expires: 04/24/2026 [facility] Work Phone: Comment on above: Expected: 10/24/2025 (Approximate), Expi res: 04/24/2026 Start: 10-23-2025 End: 10-23-2025 Patient encounter procedure 10/23/2025 1:30 PM EST Office Visit [facility] [address] [facility] [address] [place] [phone] Cheryl Sutherland, GLASS INSTALLER TECHNICIAN-NUCLEAR MEDICINE TECHNOLOGIST [address] [place] [address] [facility] Start: 07-21-2025 Creatinine measurement Creatinine Level [facility] Start: 05-21-2025 End: 05-21-2025 Clinical Support 05/21/2025 1:30 PM EDT Clinical Support [facility] [address] [facility] [address] [place] [phone] [facility] Start: 04-27-2025 [facility] Start: 04-24-2025 End: 04-24-2026 Prostate specific Ag [Mass/volume] in Serum or Plasma PSA Lab Routine Prostate cancer (Multi) Expected: 04/24/2025 (Approximate), Expires: 04/24/2026 [facility] Service Area Work Phone: Comment on above: Expected: 04/24/2025 (Approximate), Expi res: 04/24/2026 Start: 04-06-2025 End: 04-06-2025 Clinical Support 04/06/2025 2:00 PM EDT Clinical Support [address] [phone] [facility] Start: 02-26-2025 End: 02-26-2025 Patient encounter procedure 02/26/2025 3:15 PM EDT Office Visit [address] [place] [phone] Jian Caro MD MPH [address] [place] [address] [facility] Start: 02-26-2025 End: 02-13-2026 Suprapubic Catheter Insertion Suprapubic Catheter Insertion Procedures Routine Urinary retention Expected: 02/26/2025 (Approximate), Expires: 02/13/2026 [facility] Service Area Work Phone: Comment on above: Expected: 02/26/2025 (Approximate), Expi res: 02/13/2026 Start: 01-03-2025 End: 01-03-2025 Clinical Support 01/03/2025 2:15 PM EST Clinical Support [address] [place] [address] [facility] Start: 12-16-2024 [facility] Start: 12-13-2024 End: 12-13-2024 Patient encounter procedure 12/13/2024 3:15 PM EST Procedure Visit [address] [place] [address] [facility] Start: 12-06-2024 End: 12-06-2024 Clinical Support 12/06/2024 3:00 PM EST Clinical Support [address] [place] [address] [facility] Start: 07-25-2024 Subsequent hospital visit by physician 07/25/2024 Hospital Encounter [facility] [place] [address] [place] [phone] [place] [address] [place], [place] [id number] [facility] [place] Start: 07-25-2024 End: 07-25-2024 Cystostomy cystotomy w/drainage Cystotomy Suprapubic Urinary retention 07/25/2024 10:54 AM EDT [facility] [place] Start: 07-12-2024 End: 07-12-2024 Patient encounter procedure 07/12/2024 3:30 PM EDT Office Visit [address] [phone] Asmita Zambrano MD [address] [place], [place] [phone] [facility] Start: 07-10-2024 End: 07-10-2024 Patient encounter procedure 07/10/2024 2:15 PM EDT Appointment [address] [phone] [facility] Start: 07-02-2024 COVID-19 Vaccine ( season) COVID-19 Vaccine () [facility] Start: 07-02-2024 COVID-19 Vaccine ( season) COVID-19 Vaccine ( season) [facility] Start: 07-02-2024 Influenza vaccination Influenza Vaccine (#1) [facility] Start: 06-28-2024 End: 06-28-2025 Creatinine [Mass/volume] in Serum or Plasma Creatinine, Serum Lab Routine Retention of urine Expected: 06/28/2024 (Approximate), Expires: 06/28/2025 [facility] Work Phone: Comment on above: Expected: 06/28/2024 (Approximate), Expi res: 06/28/2025 Start: 06-28-2024 End: 06-28-2025 CT Abdomen and Pelvis W contrast IV CT abdomen pelvis w IV contrast Imaging Routine Malignant neoplasm of prostate (Multi) Expected: 06/28/2024 (Approximate), Expires: 06/28/2025 [facility] Service Area Work Phone: Comment on above: Expected: 06/28/2024 (Approximate), Expi res: 06/28/2025 Start: 06-28-2024 End: 06-28-2024 Patient encounter procedure 06/28/2024 1:30 PM EDT Office Visit [address] [phone] Asmita Zambrano MD [address] [place] [id number] [facility] Start: 05-24-2024 End: 05-24-2024 Patient encounter procedure 05/24/2024 3:15 PM EDT Office Visit [address] [phone] Asmita Zambrano MD [address] [place] [id number] [facility] Start: 04-26-2024 End: 04-26-2025 Creatinine [Mass/volume] in Serum or Plasma Creatinine, Serum Lab Routine Nocturia Expected: 04/26/2024 (Approximate), Expires: 04/26/2025 [facility] Work Phone: Comment on above: Expected: 04/26/2024 (Approximate), Expi res: 04/26/2025 Start: 04-26-2024 End: 04-26-2025 CT Pelvis W contrast IV CT pelvis w IV contrast Imaging Routine Abnormal digital rectal exam Expected: 04/26/2024 (Approximate), Expires: 04/26/2025 [facility] Work Phone: Comment on above: Expected: 04/26/2024 (Approximate), Expi res: 04/26/2025 Start: 04-26-2024 End: 04-26-2025 Prostate specific Ag [Mass/volume] in Serum or Plasma Prostate Specific Antigen Lab Routine Nocturia Abnormal digital rectal exam Expected: 04/26/2024 (Approximate), Expires: 04/26/2025 [facility] Service Area Work Phone: Comment on above: Expected: 04/26/2024 (Approximate), Expi res: 04/26/2025 Start: 10-22-2023 Patient discharge [facility] Start: 10-22-2023 Removal of urinary catheter [facility] Start: 10-21-2023 [facility] Start: 10-20-2023 Following clinical pathway protocol [facility] Start: 10-20-2023 Application of intermittent pneumatic compression device [facility] Start: 10-20-2023 Anesthesia transurethral resection of prostate ANESTH REMOVAL OF PROSTATE [facility] Start: 10-20-2023 Trurl rescj residual/regrowth obstr prstate tiss REMOVE PROSTATE REGROWTH [facility] Start: 10-20-2023 Oxygen therapy [facility] Start: 10-20-2023 Admission procedure [facility] Start: 10-20-2023 Deep breathing and coughing exercises [facility] Start: 10-20-2023 Incentive spirometry [facility] Start: 10-20-2023 Irrigation of urinary bladder [facility] Start: 10-20-2023 Measuring intake and output [facility] Start: 10-20-2023 Patient education [facility] Start: 10-20-2023 Provision of activity privileges [facility] Start: 10-20-2023 Taking patient vital signs [facility] Start: 10-20-2023 Vital signs measurements [facility] Start: 10-20-2023 [facility] Start: 09-06-2023 Referral to service [facility] Start: 09-06-2023 Patient discharge [facility] Start: 09-04-2023 End: 09-04-2023 Following clinical pathway protocol [facility] Start: 09-04-2023 Assessment of risk of venous thromboembolism [facility] Start: 09-04-2023 Incentive spirometry [facility] Start: 09-04-2023 Inhalation therapy procedure [facility] Start: 09-04-2023 Insertion of catheter into peripheral vein [facility] Start: 09-04-2023 Measuring intake and output [facility] Start: 09-04-2023 Providing care according to standard [facility] Start: 09-04-2023 Provision of activity privileges [facility] Start: 09-04-2023 Referral to occupational therapist [facility] Start: 09-04-2023 Referral to service [facility] Start: 09-04-2023 [facility] Start: 09-04-2023 Verification routine [facility] Start: 09-04-2023 Admission procedure [facility] Start: 09-04-2023 Hospital admission, emergency, from emergency room, medical nature [facility] Start: 09-04-2023 End: 09-05-2023 [facility] Start: 09-04-2023 Bacteria identified in Urine by Culture Urine Culture [facility] Start: 09-04-2023 Urine culture Urine Culture [facility] Start: 09-04-2023 Patient referral to dietitian [facility] Start: 07-02-2023 COVID-19 Vaccine ( season) COVID-19 Vaccine ( season) [facility] Start: 01-06-2023 Enteric precautions [facility] Start: 10-21-2022 Ambulation without limitation [facility] Start: 10-21-2022 Medication education [facility] Start: 10-21-2022 Patient discharge [facility] Start: 10-21-2022 Taking patient vital signs [facility] Start: 10-21-2022 [facility] Start: 10-21-2022 Anes transurethral w/urethrocystoscopy nos ANESTH BLADDER SURGERY [facility] Start: 10-21-2022 Cystourethroscopy w/internal urethrotomy male CYSTOSCOPY AND TREATMENT [facility] Start: 07-02-2021 Influenza vaccination INFLUENZA (Season Ended) [facility] Start: 04-08-2021 Lipid panel Lipid Panel [facility] Start: 03-05-2019 DIABETES SCREEN DIABETES SCREEN [facility] Start: 12-29-2017 End: 12-29-2017 Appointment Appointment [facility] Work Phone: Start: 10-22-2017 End: 10-22-2017 Appointment Appointment [facility] Work Phone: Start: 10-09-2017 Creatinine measurement Creatinine Level [facility] Start: 10-09-2017 Potassium measurement Potassium Level [facility] Start: 09-27-2017 End: 09-28-2017 Follow Up Appt 3 months Follow Up Appt 3 months [facility] Work Phone: Start: 09-27-2017 End: 09-28-2017 Pacer Clinic [facility] Work Phone: Start: 09-27-2017 End: 09-27-2017 Patient encounter procedure Appointment [facility] Work Phone: Start: 09-27-2017 End: 10-13-2017 Follow Up Appt 3 months Follow Up Appt 3 months [facility] Work Phone: Start: 09-27-2017 End: 10-13-2017 Pacer Clinic Pac[facility] Clinic [facility] Work Phone: Start: 06-28-2017 End: 06-28-2017 Patient encounter procedure Appointment [facility] Work Phone: Start: 06-28-2017 End: 06-28-2017 Follow Up Appt 3 months Follow Up Appt 3 months [facility] Work Phone: Start: 06-28-2017 End: 06-28-2017 Pacer Clinic [facility] Work Phone: Start: 06-28-2017 End: 10-13-2017 Follow Up Appt 3 months Follow Up Appt 3 months [facility] Work Phone: Start: 06-28-2017 End: 10-13-2017 Pacer Clinic Pacer Clinic [facility] Work Phone: Start: 05-24-2017 End: 05-24-2017 Follow Up Appt Other Follow Up Appt Other [facility] Work Phone: Start: 05-24-2017 End: 05-24-2017 MMM MMM [facility] Work Phone: Start: 05-24-2017 End: 05-24-2017 Nuclear stress test -Lexiscan Nuclear stress test -Lexiscan [facility] Work Phone: Start: 05-24-2017 End: 05-24-2017 PFM PFM [facility] Work Phone: Start: 05-24-2017 End: 05-24-2017 Patient encounter procedure Appointment [facility] Work Phone: Start: 05-24-2017 End: 05-24-2017 Follow Up Appt Other Follow Up Appt Other [facility] Work Phone: Start: 05-24-2017 End: 05-24-2017 MMM MMM [facility] Work Phone: Start: 05-24-2017 End: 05-24-2017 Nuclear stress test -Lexiscan Nuclear stress test -Lexiscan [facility] Work Phone: Start: 05-24-2017 End: 05-24-2017 PFM PFM [facility] Work Phone: Start: 04-12-2017 End: 04-12-2017 Follow Up Appt 6 months Follow Up Appt 6 months [facility] Work Phone: Start: 04-12-2017 End: 04-12-2017 Follow Up Appt Other Follow Up Appt Other [facility] Work Phone: Start: 04-12-2017 End: 04-12-2017 MMM MMM [facility] Work Phone: Start: 04-12-2017 End: 04-12-2017 Patient encounter procedure Appointment [facility] Work Phone: Start: 04-12-2017 End: 10-13-2017 Follow Up Appt 6 months Follow Up Appt 6 months [facility] Work Phone: Start: 04-12-2017 End: 10-13-2017 Follow Up Appt Other Follow Up Appt Other [facility] Work Phone: Start: 04-12-2017 End: 10-13-2017 MMM MMM [facility] Work Phone: Start: 03-22-2017 End: 03-23-2017 Follow Up Appt 3 months Follow Up Appt 3 months [facility] Work Phone: Start: 03-22-2017 End: 03-23-2017 Pacer Clinic Pacer Clinic [facility] Work Phone: Start: 03-22-2017 End: 10-13-2017 Follow Up Appt 3 months Follow Up Appt 3 months [facility] Work Phone: Start: 03-22-2017 End: 10-13-2017 Pacer Clinic [facility] Clinic [facility] Work Phone: Start: 12-17-2016 End: 12-17-2016 Follow Up Appt 3 months Follow Up Appt 3 months [facility] Work Phone: Start: 12-17-2016 End: 12-17-2016 Pacer Clinic [facility] Work Phone: Start: 12-17-2016 End: 10-13-2017 Follow Up Appt 3 months Follow Up Appt 3 months [facility] Work Phone: Start: 12-17-2016 End: 10-13-2017 Pacer Clinic Pacer Clinic [facility] Work Phone: Start: 10-09-2016 End: 10-12-2016 *BMP *BMP [facility] Work Phone: Start: 10-09-2016 End: 10-09-2016 *CBC with Differential *CBC with Differential [facility] Work Phone: Start: 10-09-2016 End: 10-09-2016 BNP *Brain Natriuretic Peptide BNP [facility] Work Phone: Start: 10-09-2016 End: 10-12-2016 Chest x-ray X-Ray, Chest, PA & Lateral [facility] Work Phone: Start: 10-09-2016 End: 10-09-2016 Follow Up Appt Other Follow Up Appt Other [employer] Work Phone: Start: 10-09-2016 End: 10-12-2016 Thyroid stimulating hormone (TSH) *TSH [employer] Work Phone: Start: 10-09-2016 End: 10-12-2016 Thyroxine (T4) *T4 (Total) [employer] Work Phone: Start: 10-09-2016 End: 10-12-2016 Basic metabolic 2000 panel - Serum or Plasma *BMP [employer] Work Phone: Start: 10-09-2016 End: 10-09-2016 CBC W Auto Differential panel - Blood *CBC with Differential [employer] Work Phone: Start: 10-09-2016 End: 10-12-2016 Chest x-ray X-Ray, Chest, PA & Lateral [employer] Work Phone: Start: 10-09-2016 End: 10-09-2016 Follow Up Appt Other Follow Up Appt Other [employer] Work Phone: Start: 10-09-2016 End: 10-09-2016 Natriuretic peptide B [Mass/volume] in Blood *Brain Natriuretic Peptide BNP [employer] Work Phone: Start: 10-09-2016 End: 10-12-2016 Thyrotropin [Units/volume] in Serum or Plasma *TSH [employer] Work Phone: Start: 10-09-2016 End: 10-12-2016 Thyroxine (T4) [Mass/volume] in Serum or Plasma *T4 (Total) [employer] Work Phone: Start: 09-08-2016 End: 09-30-2016 Follow Up Appt 3 months Follow Up Appt 3 months [employer] Work Phone: Start: 09-08-2016 End: 09-30-2016 Pacer Clinic [facility] [employer] Work Phone: Start: 09-08-2016 End: 09-30-2016 Follow Up Appt 3 months Follow Up Appt 3 months [facility] Work Phone: Start: 09-08-2016 End: 09-30-2016 Pacer Clinic Pacer Clinic [facility] Work Phone: Start: 04-24-2016 End: 09-30-2016 Follow Up Appt 3 months Follow Up Appt 3 months [facility] Work Phone: Start: 04-24-2016 End: 09-30-2016 Pacer Clinic Pacer Clinic [facility] Work Phone: Start: 04-24-2016 End: 09-30-2016 Follow Up Appt 3 months Follow Up Appt 3 months [facility] Work Phone: Start: 04-24-2016 End: 09-30-2016 Pacer Clinic Pacer Clinic [facility] Work Phone: Start: 04-09-2016 End: 04-09-2016 *BMP *BMP [facility] Work Phone: Start: 04-09-2016 End: 04-08-2016 *UA - Urinalysis w/o Micro *UA - Urinalysis w/o Micro [facility] Work Phone: Start: 04-09-2016 End: 04-08-2016 CBC W Auto Differential panel - Blood *CBC without Diff [facility] Work Phone: Start: 04-09-2016 End: 04-08-2016 INR Coag RelTime (PPP) *PT/INR [facility] Work Phone: Start: 04-09-2016 End: 04-08-2016 Pacemaker Generator Change Pacemaker Generator Change [facility] Work Phone: Start: 04-09-2016 End: 04-08-2016 *UA - Urinalysis w/o Micro *UA - Urinalysis w/o Micro [facility] Work Phone: Start: 04-09-2016 End: 04-09-2016 Basic metabolic 2000 panel - Serum or Plasma *BMP [facility] Work Phone: Start: 04-09-2016 End: 04-08-2016 CBC W Auto Differential panel - Blood *CBC without Diff [facility] Work Phone: Start: 04-09-2016 End: 04-08-2016 INR in Platelet poor plasma by Coagulation assay *PT/INR [facility] Work Phone: Start: 04-09-2016 End: 04-08-2016 Pacemaker Generator Change Pacemaker Generator Change [facility] Work Phone: Start: 04-08-2016 End: 04-08-2016 *Hepatic Function Panel *Hepatic Function Panel [facility] Work Phone: Start: 04-08-2016 End: 04-08-2016 Ecg routine ecg w/least 12 lds w/i&r EKG (In office) [facility] Work Phone: Start: 04-08-2016 End: 04-08-2016 Follow Up Appt 6 months Follow Up Appt 6 months [facility] Phone: Start: 04-08-2016 End: 04-08-2016 Lipid panel [AGGREGATE] *Lipid Profile CC PCP [facility] Work Phone: Start: 04-08-2016 End: 04-08-2016 MMM MMM [facility] Work Phone: Start: 04-08-2016 End: 04-08-2016 Ecg routine ecg w/least 12 lds w/i&r EKG (In office) [facility] Work Phone: Start: 04-08-2016 End: 04-08-2016 Follow Up Appt 6 months Follow Up Appt 6 months [facility] Phone: Start: 04-08-2016 End: 10-13-2017 Hepatic function 2000 panel - Serum or Plasma *Hepatic Function Panel [facility] Phone: Start: 04-08-2016 End: 10-13-2017 Lipid 1996 panel - Serum or Plasma *Lipid Profile CC PCP [facility] Work Phone: Start: 04-08-2016 End: 04-08-2016 MMM MMM [facility] Work Phone: Start: 03-30-2016 End: [...] Serum or Plasma *Lipid Profile CC PCP [facility] Work Phone: Start: 03-19-2016 End: 04-08-2016 Chest x-ray X-Ray, Chest, PA & Lateral [facility] Work Phone: Start: 03-19-2016 End: 09-30-2016 Ecg routine ecg w/least 12 lds w/i&r EKG (In office) [facility] Work Phone: Start: 03-19-2016 End: 04-08-2016 Chest x-ray X-Ray, Chest, PA & Lateral [facility] Work Phone: Start: 03-19-2016 End: 09-30-2016 Ecg routine ecg w/least 12 lds w/i&r EKG (In office) [facility] Work Phone: Start: 02-28-2016 End: 09-30-2016 Follow Up Appt 1 month Follow Up Appt 1 month [facility] Work Phone: Start: 02-28-2016 End: 09-30-2016 Pacer Clinic Pacer Clinic [facility] Work Phone: Start: 02-28-2016 End: 09-30-2016 Follow Up Appt 1 month Follow Up Appt 1 month [facility] Work Phone: Start: 02-28-2016 End: [...] 01-17-2016 End: 09-30-2016 Pacer Clinic Pacer Clinic [facility] Work Phone: Start: 11-15-2015 End: [...] 1 month Follow Up Appt 1 month [facility] Work Phone: Start: 10-02-2015 End: 09-30-2016 Pacer Clinic Pacer Clinic [facility] Work Phone: Start: 10-02-2015 End: 09-30-2016 Follow Up Appt 1 month Follow Up Appt 1 month [facility] Work Phone: Start: 10-02-2015 End: 09-30-2016 Pacer Clinic Pacer Clinic [facility] Work Phone: Start: 09-09-2015 End: 09-30-2015 *BMP *BMP [facility] Work Phone: Start: 09-09-2015 End: 09-30-2015 *CBC with Differential *CBC with Differential [facility] [facility] Work Phone: Start: 09-09-2015 End: 09-30-2015 *Hepatic Function Panel *Hepatic Function Panel [facility] Work Phone: Start: 09-09-2015 End: 09-30-2015 BNP *Brain Natriuretic Peptide BNP [facility] Work Phone: Start: 09-09-2015 End: 10-09-2016 Chest x-ray X-Ray, Chest, PA & Lateral [facility] Work Phone: Start: 09-09-2015 End: 09-30-2016 Follow Up Appt 1 month Follow Up Appt 1 month [facility] Work Phone: Start: 09-09-2015 End: 09-09-2015 Follow Up Appt 6 months Follow Up Appt 6 months [facility] Work Phone: Start: 09-09-2015 End: 09-30-2015 Lipid panel [AGGREGATE] *Lipid Profile CC PCP [facility] [employer] [facility] Work Phone: Start: 09-09-2015 End: 09-30-2016 Pacer Clinic Pac[facility] Work Phone: Start: 09-09-2015 End: 09-09-2015 PFM PFM [facility] Work Phone: Start: 09-09-2015 End: 09-30-2015 Basic metabolic 2000 panel - Serum or Plasma *BMP [facility] [employer] [facility] Work Phone: Start: 09-09-2015 End: 09-30-2015 CBC W Auto Differential panel - Blood *CBC with Differential [facility] Work Phone: Start: 09-09-2015 End: 10-09-2016 Chest x-ray X-Ray, Chest, PA & Lateral [facility] Work Phone: Start: 09-09-2015 End: 09-30-2016 Follow Up Appt 1 month Follow Up Appt 1 month [facility] Work Phone: Start: 09-09-2015 End: 09-09-2015 Follow Up Appt 6 months Follow Up Appt 6 months [facility] Work Phone: Start: 09-09-2015 End: 09-30-2015 Hepatic function 2000 panel - Serum or Plasma *Hepatic Function Panel [facility] Work Phone: Start: 09-09-2015 End: 09-30-2015 Lipid 1996 panel - Serum or Plasma *Lipid Profile CC PCP [facility] Work Phone: Start: 09-09-2015 End: 09-30-2015 Natriuretic peptide B [Mass/volume] in Blood *Brain Natriuretic Peptide BNP [facility] [employer] [facility] Work Phone: Start: 09-09-2015 End: 09-30-2016 Pacer Clinic Pacer Clinic [facility] [employer] [facility] Work Phone: Start: 09-09-2015 End: 09-09-2015 PFM PFM [facility] Work Phone: Start: 05-06-2015 End: 09-03-2015 Follow Up Appt 3 months Follow Up Appt 3 months [facility] [employer] [facility] Work Phone: Start: 05-06-2015 End: 09-03-2015 Pacer Clinic Pacer Clinic [facility] [employer] [facility] Work Phone: Start: 05-06-2015 End: 09-03-2015 Follow Up Appt 3 months Follow Up Appt 3 months [facility] [employer] [facility] Work Phone: Start: 05-06-2015 End: 09-03-2015 Pacer Clinic Pacer Clinic [facility] [facility] Work Phone: Start: 04-01-2015 End: 09-09-2015 *Hepatic Function Panel *Hepatic Function Panel [facility] Work Phone: Start: 04-01-2015 End: 09-09-2015 Lipid panel [AGGREGATE] *Lipid Profile CC PCP [facility] [employer] [facility] Work Phone: Start: 04-01-2015 End: 09-09-2015 Hepatic function 2000 panel - Serum or Plasma *Hepatic Function Panel [facility] [employer] [facility] Work Phone: Start: 04-01-2015 End: 09-09-2015 Lipid 1996 panel - Serum or Plasma *Lipid Profile CC PCP [facility] [employer] [facility] Work Phone: Start: 03-04-2015 End: 03-04-2015 Follow Up Appt 6 months Follow Up Appt 6 months [facility] [employer] Work Phone: Start: 03-04-2015 End: 03-04-2015 MMM MMM [facility] Work Phone: Start: 03-04-2015 End: 03-04-2015 Follow Up Appt 6 months Follow Up Appt 6 months [facility] [employer] [facility] Work Phone: Start: 03-04-2015 End: 03-04-2015 MMM MMM [facility] Work Phone: Start: 01-16-2015 End: 09-03-2015 Follow Up Appt 3 months Follow Up Appt 3 months [facility] Work Phone: Start: 01-16-2015 End: 09-03-2015 Pacer Clinic Pacer Clinic [facility] [employer] [facility] Work Phone: Start: 01-16-2015 End: 09-03-2015 Follow Up Appt 3 months Follow Up Appt 3 months [facility] Work Phone: Start: 01-16-2015 End: 09-03-2015 Pacer Clinic Pacer Clinic [facility] [employer] [facility] Work Phone: Start: 11-30-2014 End: 11-30-2014 Follow Up Appt Other Follow Up Appt Other [facility] Work Phone: Start: 11-30-2014 End: 11-30-2014 PFM PFM [facility] [employer] [facility] Work Phone: Start: 11-30-2014 End: 11-30-2014 Follow Up Appt Other Follow Up Appt Other [facility] Work Phone: Start: 11-30-2014 End: 11-30-2014 PFM PFM [facility] [employer] [facility] Work Phone: Start: 11-29-2014 End: 11-29-2014 *BMP *BMP [facility] Work Phone: Start: 11-29-2014 End: 11-29-2014 Basic metabolic 2000 panel - Serum or Plasma *BMP [facility] Work Phone: Start: 11-14-2014 End: 11-15-2014 *BMP *BMP [facility] Work Phone: Start: 11-14-2014 End: 11-15-2014 *CBC with Differential *CBC with Differential [facility] Work Phone: Start: 11-14-2014 End: 11-15-2014 BNP *Brain Natriuretic Peptide BNP [facility] Work Phone: Start: 11-14-2014 End: 11-15-2014 Chest x-ray X-Ray, Chest, PA & Lateral [facility] Work Phone: Start: 11-14-2014 End: 11-14-2014 Follow up Appt 3 weeks Follow up Appt 3 weeks [facility] Work Phone: Start: 11-14-2014 End: 11-14-2014 MMM MMM [facility] Work Phone: Start: 11-14-2014 End: 11-15-2014 Basic metabolic 2000 panel - Serum or Plasma *BMP [facility] Work Phone: Start: 11-14-2014 End: 11-15-2014 CBC W Auto Differential panel - Blood *CBC with Differential [facility] Work Phone: Start: 11-14-2014 End: 11-15-2014 Chest x-ray X-Ray, Chest, PA & Lateral [facility] Work Phone: Start: 11-14-2014 End: 11-14-2014 Follow up Appt 3 weeks Follow up Appt 3 weeks [facility] Work Phone: Start: 11-14-2014 End: 11-14-2014 MMM MMM [facility] Work Phone: Start: 11-14-2014 End: 11-15-2014 Natriuretic peptide B [Mass/volume] in Blood *Brain Natriuretic Peptide BNP [facility] Work Phone: Start: 10-16-2014 End: 11-14-2014 Follow Up Appt 3 months Follow Up Appt 3 months [facility] Work Phone: Start: 10-16-2014 End: 11-14-2014 Pacer Clinic Pac[facility] Clinic [facility] Work Phone: Start: 10-16-2014 End: 11-14-2014 Follow Up Appt 3 months Follow Up Appt 3 months [facility] Work Phone: Start: 10-16-2014 End: 11-14-2014 Pacer Clinic Pac[facility] Clinic [facility] Work Phone: Start: 09-03-2014 End: 10-01-2014 *Hepatic Function Panel *Hepatic Function Panel [facility] Phone: Start: 09-03-2014 End: 09-03-2014 Ecg routine ecg w/least 12 lds w/i&r EKG (In office) [facility] Work Phone: Start: 09-03-2014 End: 09-03-2014 Follow Up Appt Other Follow Up Appt Other [facility] Phone: Start: 09-03-2014 End: 10-01-2014 Lipid panel [AGGREGATE] *Lipid Profile CC PCP [facility] Work Phone: Start: 09-03-2014 End: 09-03-2014 PFM PFM [facility] Work Phone: Start: 09-03-2014 End: 09-03-2014 Ecg routine ecg w/least 12 lds w/i&r EKG (In office) [facility] Work Phone: Start: 09-03-2014 End: 09-03-2014 Follow Up Appt Other Follow Up Appt Other [facility] Phone: Start: 09-03-2014 End: 10-01-2014 Hepatic function 2000 panel - Serum or Plasma *Hepatic Function Panel [facility] Work Phone: Start: 09-03-2014 End: 10-01-2014 Lipid 1996 panel - Serum or Plasma *Lipid Profile CC PCP [facility] [employer] [facility] Work Phone: Start: 09-03-2014 End: 09-03-2014 PFM PFM [facility] [employer] [facility] Work Phone: Start: 07-03-2014 End: 08-23-2014 Follow Up Appt 3 months Follow Up Appt 3 months [facility] [employer] [facility] Work Phone: Start: 07-03-2014 End: 08-23-2014 Pacer Clinic Pacer Clinic [facility] [employer] [facility] Work Phone: Start: 07-03-2014 End: 08-23-2014 Follow Up Appt 3 months Follow Up Appt 3 months [facility] [facility] Work Phone: Start: 07-03-2014 End: 08-23-2014 Pacer Clinic Pacer Clinic [facility] [employer] [facility] Work Phone: Start: 04-04-2014 End: 07-03-2014 Follow Up Appt 3 months Follow Up Appt 3 months [facility] [employer] [facility] Work Phone: Start: 04-04-2014 End: 07-03-2014 Pacer Clinic Pacer Clinic [facility] [employer] [facility] Work Phone: Start: 04-04-2014 End: 07-03-2014 Follow Up Appt 3 months Follow Up Appt 3 months [facility] [employer] [facility] Work Phone: Start: 04-04-2014 End: 07-03-2014 Pacer Clinic Pacer Clinic [facility] [facility] Work Phone: Start: 03-02-2014 End: 10-01-2014 *Hepatic Function Panel *Hepatic Function Panel [facility] [employer] [facility] Work Phone: Start: 03-02-2014 End: 03-02-2014 Follow Up Appt 6 months Follow Up Appt 6 months [facility] [employer] [facility] Work Phone: Start: 03-02-2014 End: 10-01-2014 Lipid panel [AGGREGATE] *Lipid Profile CC PCP [facility] [employer] [facility] Work Phone: Start: 03-02-2014 End: 03-02-2014 MMM MMM [facility] Work Phone: Start: 03-02-2014 End: 03-02-2014 Follow Up Appt 6 months Follow Up Appt 6 months [facility] Work Phone: Start: 03-02-2014 End: 10-01-2014 Hepatic function 2000 panel - Serum or Plasma *Hepatic Function Panel [facility] Work Phone: Start: 03-02-2014 End: 10-01-2014 Lipid 1996 panel - Serum or Plasma *Lipid Profile CC PCP [facility] Work Phone: Start: 03-02-2014 End: 03-02-2014 MMM MMM [facility] Work Phone: Start: 01-30-2014 End: [...] Serum or Plasma *Lipid Profile CC PCP [facility] Work Phone: Start: 12-26-2013 End: 07-03-2014 Follow Up Appt 3 months Follow Up Appt 3 months [facility] Work Phone: Start: 12-26-2013 End: 07-03-2014 Pacer Clinic Pacer Clinic [facility] Work Phone: Start: 12-26-2013 End: 07-03-2014 Follow Up Appt 3 months Follow Up Appt 3 months [facility] Work Phone: Start: 12-26-2013 End: 07-03-2014 Pacer Clinic Pacer Clinic [facility] Work Phone: Start: 08-17-2013 End: 12-18-2013 Follow Up Appt 3 months Follow Up Appt 3 months [facility] Work Phone: Start: 08-17-2013 End: 12-18-2013 Pacer Clinic Pacer Clinic [facility] [employer] [facility] Work Phone: Start: 08-17-2013 End: 12-18-2013 Follow Up Appt 3 months Follow Up Appt 3 months [facility] Work Phone: Start: 08-17-2013 End: 12-18-2013 Pacer Clinic Pacer Clinic [facility] [employer] [facility] Work Phone: Start: 08-04-2013 End: 08-18-2013 *Hepatic Function Panel *Hepatic Function Panel [facility] [employer] [facility] Work Phone: Start: 08-04-2013 End: 08-04-2013 Device Interrogation Device Interrogation [facility] [facility] Work Phone: Start: 08-04-2013 End: 08-04-2013 Follow Up Appt 6 months Follow Up Appt 6 months [facility] Work Phone: Start: 08-04-2013 End: 08-18-2013 Lipid panel [AGGREGATE] *Lipid Profile PCP [facility] Work Phone: Start: 08-04-2013 End: 08-04-2013 PFM PFM [facility] [facility] Work Phone: Start: 08-04-2013 End: 08-04-2013 Device Interrogation Device Interrogation [facility] Work Phone: Start: 08-04-2013 End: 08-04-2013 Follow Up Appt 6 months Follow Up Appt 6 months [facility] Work Phone: Start: 08-04-2013 End: 08-18-2013 Hepatic function 2000 panel - Serum or Plasma *Hepatic Function Panel [facility] [employer] [facility] Work Phone: Start: 08-04-2013 End: 08-18-2013 Lipid 1996 panel - Serum or Plasma *Lipid Profile CC PCP [facility] [employer] [facility] Work Phone: Start: 08-04-2013 End: 08-04-2013 PFM PFCareerImp [facility] Work Phone: Start: 05-19-2013 End: 08-04-2013 Follow Up Appt 3 months Follow Up Appt 3 months [facility] Work Phone: Start: 05-19-2013 End: 08-04-2013 Pacer Clinic Pacer Clinic [facility] Work Phone: Start: 05-19-2013 End: [...] Up Appt Other Follow Up Appt Other [facility] Work Phone: Start: 03-20-2013 End: 08-04-2013 PFM PFCareerImp [facility] Work Phone: Start: 03-20-2013 End: 08-04-2013 Follow Up Appt 6 months Follow Up Appt 6 months [facility] Work Phone: Start: 03-20-2013 End: 03-20-2013 Follow Up Appt Other Follow Up Appt Other [facility] Work Phone: Start: 03-20-2013 End: 08-04-2013 PFM PFCareerImp [facility] Work Phone: Start: 02-15-2013 End: 03-20-2013 Follow Up Appt 3 months Follow Up Appt 3 months [facility] Work Phone: Start: 02-15-2013 End: 03-20-2013 Pacer Clinic Pacer Clinic [facility] Work Phone: Start: 02-15-2013 End: 03-20-2013 Follow Up Appt 3 months Follow Up Appt 3 months [facility] Work Phone: Start: 02-15-2013 End: 03-20-2013 Pacer Clinic Pac[facility] Clinic [facility] Work Phone: Start: 01-30-2013 End: 03-20-2013 *Hepatic Function Panel *Hepatic Function Panel [facility] Phone: Start: 01-30-2013 End: 03-20-2013 Lipid panel [AGGREGATE] *Lipid Profile [facility] Phone: Start: 01-30-2013 End: 03-20-2013 Thyroid stimulating hormone (TSH) *TSH [facility] Work Phone: Start: 01-30-2013 End: 08-17-2012 Thyroxine (T4) *T4 (Total) [facility] Phone: Start: 01-30-2013 End: 03-20-2013 Hepatic function 2000 panel - Serum or Plasma *Hepatic Function Panel [facility] Phone: Start: 01-30-2013 End: 03-20-2013 Lipid 1996 panel - Serum or Plasma *Lipid Profile [facility] Phone: Start: 01-30-2013 End: 03-20-2013 Thyrotropin [Units/volume] in Serum or Plasma *TSH [facility] Phone: Start: 01-30-2013 End: 08-17-2012 Thyroxine (T4) [Mass/volume] in Serum or Plasma *T4 (Total) [facility] Work Phone: Start: 10-01-2012 End: 03-20-2013 *Hepatic Function Panel *Hepatic Function Panel [facility] Phone: Start: 10-01-2012 End: 03-20-2013 Lipid panel [AGGREGATE] *Lipid Profile [facility] Phone: Start: 10-01-2012 End: 03-20-2013 Hepatic function 2000 panel - Serum or Plasma *Hepatic Function Panel [facility] Work Phone: Start: 10-01-2012 End: 03-20-2013 Lipid 1996 panel - Serum or Plasma *Lipid Profile [facility] Work Phone: Start: 08-10-2012 End: 08-17-2012 *BMP *BMP [facility] Work Phone: Start: 08-10-2012 End: 03-20-2013 *CBC with Differential *CBC with Differential [facility] Work Phone: Start: 08-10-2012 End: 08-10-2012 Ecg routine ecg w/least 12 lds w/i&r EKG (In office) [facility] Work Phone: Start: 08-10-2012 End: 08-10-2012 Follow Up Appt 6 months Follow Up Appt 6 months [facility] Work Phone: Start: 08-10-2012 End: 08-17-2012 Magnesium *Magnesium [facility] Work Phone: Start: 08-10-2012 End: 08-17-2012 Thyroid stimulating hormone (TSH) *TSH [facility] Work Phone: Start: 08-10-2012 End: 08-17-2012 Thyroxine (T4) *T4 (Total) [facility] Work Phone: Start: 08-10-2012 End: 08-17-2012 Basic metabolic 2000 panel - Serum or Plasma *BMP [facility] Work Phone: Start: 08-10-2012 End: 03-20-2013 CBC W Auto Differential panel - Blood *CBC with Differential [facility] Work Phone: Start: 08-10-2012 End: 08-10-2012 Ecg routine ecg w/least 12 lds w/i&r EKG (In office) [facility] Work Phone: Start: 08-10-2012 End: 08-10-2012 Follow Up Appt 6 months Follow Up Appt 6 months [facility] Work Phone: Start: 08-10-2012 End: 08-17-2012 Magnesium [Mass/volume] in Serum or Plasma *Magnesium [facility] Work Phone: Start: 08-10-2012 End: 08-17-2012 Thyrotropin [Units/volume] in Serum or Plasma *TSH [facility] Phone: Start: 08-10-2012 End: 08-17-2012 Thyroxine (T4) [Mass/volume] in Serum or Plasma *T4 (Total) [facility] Phone: Start: 05-02-2012 End: 05-02-2012 *Hepatic Function Panel *Hepatic Function Panel [facility] Phone: Start: 05-02-2012 End: 05-02-2012 Ecg routine ecg w/least 12 lds w/i&r EKG (In office) [facility] Work Phone: Start: 05-02-2012 End: 05-02-2012 Echocardiography Echocardiogram (complete) [facility] Phone: Start: 05-02-2012 End: 05-02-2012 Follow Up Appt 6 months Follow Up Appt 6 months [facility] Phone: Start: 05-02-2012 End: 05-02-2012 Lipid panel [AGGREGATE] *Lipid Profile [facility] Phone: Start: 05-02-2012 End: 05-02-2012 Nuclear stress test -adenosine Nuclear stress test -adenosine [facility] Work Phone: Start: 05-02-2012 End: 05-02-2012 Ecg routine ecg w/least 12 lds w/i&r EKG (In office) [facility] Phone: Start: 05-02-2012 End: 05-02-2012 Echocardiography Echocardiogram (complete) [facility] Phone: Start: 05-02-2012 End: 05-02-2012 Follow Up Appt 6 months Follow Up Appt 6 months [facility] Phone: Start: 05-02-2012 End: 05-02-2012 Hepatic function 2000 panel - Serum or Plasma *Hepatic Function Panel [facility] Phone: Start: 05-02-2012 End: 05-02-2012 Lipid 1996 panel - Serum or Plasma *Lipid Profile [facility] Work Phone: Start: 05-02-2012 End: 05-02-2012 Nuclear stress test -adenosine Nuclear stress test -adenosine [facility] Work Phone: Start: 01-06-2011 RSV High Risk: (Elderly (60+) or Population) (1 - 1-dose 75+ series) RSV High Risk: (Elderly (60+) or Population) (1 - 1-dose 75+ series) [facility] Start: 08-31-2009 Pneumococcal vaccination Pneumococcal Vaccine (2 of 2 - PCV) [facility] Start: 08-31-2009 Pneumococcal Vaccine: 65+ Years (2 of 2 - PCV) Pneumococcal Vaccine: 65+ Years (2 of 2 - PCV) [facility] Start: 01-06-2001 ADVANCE DIRECTIVE DISCUSSION ADVANCE DIRECTIVE DISCUSSION [facility] Start: 1996 RSV patients and/or patients aged 60+ years (1 - 1-dose 60+ series) RSV patients and/or patients aged 60+ years (1 - 1-dose 60+ series) [facility] Start: 01-06-1986 SHINGRIX VACCINE (1 of 2) SHINGRIX VACCINE (1 of 2) [facility] Start: 01-06-1986 Zoster Vaccines (1 of 2) Zoster Vaccines (1 of 2) [facility] Start: 01-06-1955 Urine microalbumin profile DTAP,TDAP,TD (1 - Tdap) [facility] Start: 01-06-1954 Diabetes mellitus screening Diabetes Screening [facility] Start: 1936 Annual wellness visit Welcome to Medicare Visit [facility] Start: 1936 Echocardiography Echocardiogram [facility] Start: 1936 Lipid panel Lipid Panel [facility] Start: 1936 Medicare Annual Wellness Visit Medicare Annual Wellness Visit (AWV) [facility] Basic metabolic 2008 panel with ionized calcium - Serum or Plasma [facility] End: 07-25-2024 Continuous Pulse oximetry, In Phase 1 Continuous Pulse oximetry, In Phase 1 Respiratory Care Routine Continuous until discontinued starting 07/25/2024 [facility] Service Area Work Phone: Comment on above: Continuous until discontinued starting 0 07/25/2024 End: 07-10-2024 CT Abdomen and Pelvis W contrast IV [facility] Work Phone: Comment on above: Once for 1 Occurrences starting 07/10/20 24 until 07/10/2024 Cystostomy cystotomy w/drainage Cystotomy Suprapubic Urinary retention Virtual [facility] Electrocardiographic procedure [facility] Patient Education [facility] Work Phone: Patient referral [facility] Work Phone: Surgical pathology study Surgica l Pathology Exam Pathology and Cytology Routine Elevated PSA 06/14/2024 12:45 PM EDT [facility] Work Phone: Urine culture [facility] Immunizations Immunization Date Immunization Notes [facility]23 Influenza High-Dose Quadrivalent Dr. John Mckeon Work Phone: [facility] 09-05-2023 influenza virus vacc ine, unspecified formulation Asmita Zambrano MD Work Phone: [facility] Work Phone: 07-31-2020 influenza, injectabl e, quadrivalent, preservative free Dr. John Mckeon Work Phone: [facility] 07-31-2020 influenza, seasonal, injectable [facility] 07-31-2020 Fluad Quad (65yr up)(PF) 60 mcg (15 mcg x 4)/0.5mL IM syringe (flu vac [facility] Work Phone: 01-26-2020 tetanus toxoid, redu blanche diphtheria toxoid, and acellular pertussis vaccine, adsorbed [facility] 08-17-2018 Influenza virus vaccine [facility] 08-17-2018 Fluad 2017- 65yr up(PF)45 mcg(15 mcgx3)/0.5 mL intramuscular syringe (flu vac [facility] Work Phone: 11-05-2015 tetanus and diphther ia toxoids, adsorbed, preservative free, for adult use (2 Lf of tetanus toxoid and 2 Lf of diphtheria toxoid) [facility] 08-31-2008 influenza virus vacc ine, unspecified formulation Marino Roque Work Phone: [facility] 08-31-2008 pneumococcal polysaccharide vaccine, 23 valent Marino Roque Work Phone: [facility] Payers Date Payer Category Payer Self-pay [id number] 2023 Medicare [employer] MED[employer] RE [facility] MEDICARE [id number] 2023-Present [address] JANINE Gonzalez [id number] 2023 Medicare (Managed Care) [facility] E MEDICARE [id number] 2023 Medicare [id number] 2014 Unknown [id number] 1935 Unknown [id number] 2.16.840.1.590847.3.579.2.1 243 1936 Unknown [id number] 2.16.840.1.362228.3.579.2.1 243 1936 Unknown [id number] 2.16.840.1.656185.3.579.2.1 244 193 Unknown [id number] 2.16.840.1.932654.3.579.2.1 244 1936 Unknown [id number] 2.16.840.1.752413.3.579.2.1 244 1936 Unknown [id number] 2.16.840.1.705791.3.579.2.1 244 1936 Unknown [id number] 2.16.840.1.817399.3.579.2.1 244 1936 Unknown [id number] 2.16.840.1.611233.3.579.2.1 244 1936 Unknown [id number] 2.16.840.1.815270.3.579.2.1 244 1936 Unknown [id number] 2.16840.1.021558.3.579.2.1 244 1936 Unknown [id number] 2.16.840.1.819964.3.579.2.1 244 1936 Unknown [id number] 2.16.840.1.221933.3.579.2.1 244 1936 Unknown [id number] 2.16.840.1.144542.3.579.2.1 244 1936 Unknown [id number] 2.16.840.1.828487.3.579.2.1 244 1936 Unknown [id number] 2.16.840.1.534398.3.579.2.1 244 1936 Unknown [id number] 2.16.840.1.012343.3.579.2.1 244 Unknown [id number] 2.16.840.1.529098.3.579.2.4 62 Unknown [id number] 2.16.840.1.078460.3.579.2.4 62 Unknown [id number] 2.16.840.1.529845.3.579.2.4 62 Unknown [id number] 2.16.840.1.537738.3.579.2.4 62 Unknown [id number] 2.16.840.1.381670.3.579.2.4 62 Unknown [id number] 2.16.840.1.359603.3.579.2.4 62 Unknown [id number] 2.16.840.1.333989.3.579.2.4 62 Unknown [id number] 2.16.840.1.300963.3.579.2.4 62 Unknown [id number] 2.16.840.1.630642.3.579.2.4 62 Unknown [id number] 2.16.840.1.933905.3.579.2.4 62 Unknown [id number] 2.16.840.1.216153.3.579.2.4 62 Unknown [id number] 2.16.840.1.639682.3.579.2.4 62 Unknown [id number] 2.16.840.1.061596.3.579.2.4 62 Unknown [id number] 2.16.840.1.046441.3.579.2.4 62 Unknown [id number] 2.16.840.1.236931.3.579.2.4 62 Unknown [id number] 2.16.840.1.673130.3.579.2.4 62 Social History Date Type Detail Facility Start: 06-12-2010 End: 04-27-2025 Tobacco smoking status MNIS Never smoker [facility] Start: 06-12-2010 Alcohol intake Current non-dr operator automated process of alcohol (finding) [facility] Start: 1935 Sex Assigned At Not on file [facility] Start: 09-04-2021 End: 10-11-2023 Tobacco smoking status MNIS Unknown if ever smoked [facility] Start: 10-01-2019 None [facility] Start: 10-01-2019 With Family [facility] Start: 12-29-2018 Non-smoker [facility] Start: 1935 Sex Assigned At Male [facility] Start: 04-26-2024 Tobacco use and exposure Smokeless tobacco non-user [facility] Work Phone: Start: 04-26-2024 End: 02-26-2025 History of Social function [facility] Work Phone: Start: 04-26-2024 End: 02-26-2025 Tobacco use panel [facility] Work Phone: Start: 04-16-2024 End: 04-09-2025 Exposure to SARS-CoV-2 (event) Not sure [facility] Start: 07-25-2024 End: 04-24-2025 Alcoholic beverage intake Ex-drinker (finding) [facility] Work Phone: Start: 02-09-2025 Sex Male (finding) [facility] Medical Equipment Procedure Code Equipment Code Equipment Original Text Equipment Identifier Dates Laser Equipment (Contracted) - [id number] Start: 02-01-2014 Comment on above: Description: SENDY WHITFIELD LASER Goals Date Patient Goal Desired Activity /State Functional Status Date Assessment Result Facility 10-22-2023 Functional status Bedrest;Bathroom Privil ege [facility] Work Phone: 09-06-2023 Functional status Ambulates;Chair [facility] Work Phone: 09-05-2023 Functional status Ambulates [facility] Work Phone: Mental Status Date Assessment Result Facility 12-16-2024 Cognitive function Level Of Cons ciousness Awake;Alert;Appropriate [facility] Work Phone: 10-21-2023 Cognitive function Voice/Name [facility] Work Phone: 09-06-2023 Cognitive function Appropriate;Cooperativ e [facility] Work Phone: 10-21-2022 Cognitive function Voice/Name [facility] Work Phone: Clinical Notes 04-12-2017 to 04-27-2025 Note Date & Type Note Facility 04-27-2025 Discharge summary [facility] 04-27-2025 Discharge summary Note Date/Time April 27, 2025 10:41pm [facility] Medical Records Department [address] [place] [address] Emergency Department Summary 04/27/25 MR#: [id number] Acct: [id number] Name: RAJAT GUZMÁN Rep #:[id number] : 1935 89 From: Timoteo Mckenna DO [...] catheter. He denies feversor chills or sweats. 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 Cloudy Urine pH 6.0 Ur Specific Linwood 1.015 Urine Protein 30 H Urine Glucose [...] Care Provider] - 3-5 Days Print Language: Filipino Disposition Disposition: Home, Self Care What to do if you have Problems For any increased pain, shortness of breath, bleeding, nausea or vomiting, chestpain, or any unexpected problems, contact your Primary Care Provider. Call [facility] ([phone]) or report to the closest Emergency Room. Call 911 if necessary. 04/27/252240 <Electronically signed by Timoteo Mckenna DO> Cosigner Signature (if applicable): CC: Dr. John Mckeon DO ~ Signed [facility] Work Phone: 1(758) 698-127006-24-2025 Evaluation + Plan note* Assessment & Plan Note - CORTEZ Hutchinson - 04/24/2025 3:04 PM EDTAssociated Problem(s): Urinary retention Stable. SP cath intact draining clear yellow urine. Plan for catheter change in May 2025. Encouraged fluids. [facility] Work Phone: 1(377) 900-238806-24-2025 Evaluation + Plan note* Assessment & Plan Note - CORTEZ Hutchinson - 04/24/2025 3:04 PM EDTAssociated Problem(s): Bladder spasm Stable. Continue oxybutynin. Encourage fluids. [facility] Work Phone: 1([phone]) 643-101606-24-2025 Miscellaneous Notes* Assessment & Plan Note - [...] office in 6 months. [facility] Work Phone: 1(159) 529-611506-24-2025 Evaluation + Plan note* Assessment & Plan [...] and follow-up in office in 6 months. [facility] Work Phone: 1(522) 304-854106-24-2025 History of Present illness Narrative* CORTEZ Hutchinson - 04/24/2025 1:30 PM EDT Images from the original note were not included. Urology [facility] Note Subjective Patient ID: Rajat Guzmán is a 89 y.o. male who presents for No chief complaint on file.. History of Present Illness Rajat is a 89 y.o. male who presents for follow-up for history of prostate cancer and urinary retention. Patient diagnosed with prostate cancer on 06/14/2024, [place] 9 on the right and 9 on [...] No pertinent surgical history. 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 A 16 Armenian Rod was placed, with urine return into catheter tubing, the 10cc balloon was then inflated and checked for position. The catheter was then irrigated with a mixture of Betadine 5 ml andSaline 500 ml. A leg bag was then attached. FOLLOW UP ROD CHANGE IN 6 WEEKS Cosigned by Jian Jiménez MD MPH at 02/27/2025 4:24 PM EDT documented in this [facility] Work Phone: 1(365) 864-795803-05-2025 History of Present illness Narrative* Waleska Galdamez [...] was instilled into the urethra. A 16 Armenian Rod was placed with a 10cc balloon which was inflated. This was then irrigated with a mixture of Betadine 5 ml and Saline 500 ml. A plug was then attached. SIZE 16FR ROD PLACED FOLLOW UP ROD CHANGE IN 6 WEEKS [facility] Work Phone: 1([phone]) 562-645102-12-2025 History of Present illness Narrative* Waleska Galdamez [...] SIZE 16FR ROD PLACED documented [facility] Work Phone: 1(875) 125-568902-05-2025 History of Present illness Narrative* Liz Garcia [...] was changed and irrigated. 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 November 10 10:54am Dyslipidemia chronic November 10:54am Essential hypertension chronic [facility]2024 10:54am Presence of stent in coronary artery December, chronic November 10 10:54am [facility] Work Phone: 1([phone]) 739-323512-18-2024 History of Present illness Narrative* Waleska Galdamez [...] CHANGE IN 6 WEEKS [facility] Work Phone: 1(338) 574-279109-24-2024 Hospital Discharge instructions* Discharge Instructions* Char Zhu RN - 07/25/2024 12:33 PM EDT DO NOT plug catheter until you have seen Dr Zambrano for follow up visit and they have made first catheter change. * Attachments The following attachments cannot be sent through Care Everywhere. * How to Care for Your Suprapubic Urinary Catheter (Filipino) [facility] Work Phone: 1([phone]) 817-855209-24-2024 Attending History and physical note* Asmita Zambrano [...] Encouraged fluid intake. F/U SP tube placement [facility] Work Phone: 1(963) 262-834409-24-2024 History and physical note* Asmita Zambrano MD [...] F/U SP tube placement [facility] in [facility] Work Phone: [phone] Note* Preprocedure Instructions - Inga Ceron RN - 07/24/2024 1:24 PM EDT No outpatient medications have been marked as taking for the 07/25/24 encounter (Hospital Encounter). 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 male. HPI Patient is here for CT results and Lupron injection. Recent sx of prostate cancer. [place] 9. CT showed No evidence of METS [...] F/U SP tube placement [facility] Work Phone: [phone]) 928-689508-28-2024 History of Present illness Narrative* Asmita Zambrano [...] Encouraged fluid intake. F/U [facility] Work Phone: [phone]) 803-504808-14-2024 History of Present illness Narrative* Waleska Galdamez [...] 19.90 (05/17/2024) ABNORMAL LANDON. [facility] Work Phone: 1(778) 376-975807-17-2024 History of Present illness Narrative* Waleska Galdamez [...] CHECK PVR AND DISCUSS. documented in this [facility] Work Phone: 1([phone] 312-964706-26-2024 History of Present illness Narrative* Asmita Zambrano MD - 04/26/2024 1:45 PM EDT Subjective Patient ID: Rajat Guzmán is a 89 y.o. male. HPI Patient is here to establish for second opinion for BPH. Hx of incomplete emptying. He was seeing [facility] prior. He states he was asked to learn CIC but he does not want to do this. He does not want permanent rod either. . Rod was placed 6 weeks ago and still has this today. . Hx of TURP last year at [facility]. This did not help urinary sx. He [...] day to check PVR documented in this [facility] Work Phone: 1(956) 314-658112-21-2023 Progress note Author Faisal Barth [facility] October 21, 2023 7:23am Note Date/Time October 21, 2023 7:23am [facility] Medical Records Department [address] [place] [address] Progress Note - Urology 10/21/23722 MR#: [id number] Acct: [id number] Name: RAJAT GUZMÁN Rep #:[id number] : 1935 88 From: Faisal Barth MD PCP: Dr. John Mckeon, DO Status:[facility] Location: [place] [address] Subjective Subjective Status post TURP for regrowth [...] Cosigner Signature (if applicable): CC: ~ Signed [facility] Work Phone: 1(145) 384-495012-20-2023 Discharge summary Author Faisal Barth [facility] October 20, 2023 1:07pm Note Date/Time October 20, 2023 1:07pm [facility] Medical Records Department [address] [place] [address] Instructions for Home/Discharge Instructions 10/20/23 1307 MR#: [id number] Acct: [id number] Name: RAJAT GUZMÁN Rep #:[id number] : 1935 88 From: Faisal Barth MD PCP: Dr. John Mckeon, DO Status:[facility] Discharge Instructions Diet Discharge Diet: No restrictions Activity Discharge Activity: Return to Normal Activity and May Not Drive (while taking narcotic pain medications.) Dressing / Incision Call your doctor if you observe: Fever of 101 or Higher Follow Up Care Please Follow Up With: Faisal Barth MD When: Call [phone] for an appointment Test Results: Test results [...] MD CC: Dr. John Mckeon, ~ Signed [facility] Work Phone: [phone]) 108-731112-20-2023 History and physical note Author Faisal Barth [facility] October 20, 2023 1:07pm Note Date/Time October 20, 2023 1:07pm [facility] Medical Records Department [address] [place] [address] History & Physical Exam 10/20/23 1306 MR#: [id number] Acct: [id number] Name: RAJAT GUZMÁN Rep #:[id number] : 1935 88 From: Faisal Barth MD PCP: Dr. 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 John Mckeon DO~ Signed [facility] Work Phone: [phone]) 360-262812-20-2023 Procedure [facility] 10-12-2023 Hospital Discharge instructionsAmbulatory Orders* 12 Lead EKG [CVS] Time Frame: 10/12/23, Location: None Selected [facility] Work Phone: 1([phone]) 415-757711-06-2023 Discharge summary Author Manisha Varela [facility] September 06, 2023 3:13pm Note Date/Time September 06, 2023 3 :07pm [facility] Medical Records Department [address] [place] [address] Instructions for Home/Discharge Instructions 09/06/23 1504 MR#: [id number] Acct: [id number] Name: RAJAT GUZMÁN Rep #:[id number] : 1935 88 From: Manisha Varela MD [...] MD; Dr. Manisha Varela MD ~ Signed [facility] Work Phone: [phone]) [phone] Progress note Author Natanael Nowak [facility] September 05, 2023 9:01am Note Date/Time September 05, 2023 9 :01am [facility] Medical Records Department [address] [place] [address] Progress Note - Hospitalist 09/05/23 0900 MR#: [id number] Acct: [id number] Name: RAJAT GUZMÁN Stacia Rep #:[id number] : 1935 88 From: Natanael martinez MD PCP: Dr. John Mckeon DO Status:[facility] Location: [place] [address] Subjective Subjective Doing well, feels better today. [...] Sl. Cloudy, Urine pH 6.0, Ur Specific Linwood 1.020, Urine Protein 15 H, Urine Glucose [...] 77.7 H, Lymph % (Auto) 11.1 L, [place] % (Auto) 10.2 H, Eos % (Auto) [...] % (Auto) 64.8, Lymph % (Auto) 21.3, [place] % (Auto) 11.3 H, Eos % (Auto) [...] Reading Location ID and State: 1407 / [employer] , Service support , Chest X-Ray 09/04/23 16:52 IMPRESSION: No active disease. Electronically Signed: Leroy Barrett MD at 17:27 EDT Reading Location ID and State: 1407 / [employer] , Service support , Physical Exam [...] kidney injury): (2) Atherosclerotic heart disease of three affiliated coronary artery without angina pectoris: QUALIFIERS: [place] vs. transplanted heart: three affiliated heart QualifiedCode(s): I25.10 - Atherosclerotic heart disease of three affiliated coronary artery without angina pectoris; I25.10 - Atherosclerotic heart disease of three affiliated coronary artery without angina pectoris; I25.10 - Atherosclerotic heart disease of three affiliated coronary artery without angina pectoris (3) Cardiomyopathy, [...] DVT: Heparin Charges/Coding Visit Charges Inpatient E&M: 56313 Subs Hosp L2 09/05/23 0901 <Electronically signed by Natanael Nowak MD> Cosigner Signature (if applicable): CC: ~ Signed [facility] Work Phone: 1(925) 799-325111-04-2023 History and physical note Author Manisha Varela [facility] September 04, 2023 6:33pm Note Date/Time September 04, 2023 6 :23pm [facility] Medical Records Department [address] [place] [address] H&P Exam - Hospitalist 09/04/23 1820 MR#: [id number] Acct: [id number] Name: RAJAT GUZMÁN Rep #:[id number] : 1935 88 From: Manisha Varela MD PCP: Dr. 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 Hehad [...] other complaints at this time. [facility] Medical History (Updated 09/04/23 @ 18:[address] 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 Cloudy, Urine pH 6.0, Ur Specific Linwood 1.020, Urine Protein 15 H, Urine Glucose [...] 77.7 H, Lymph % (Auto) 11.1 L, [place] % (Auto) 10.2 H, Eos % (Auto) [...] 17:36 EDT Reading Location ID and State: 6428 / [employer] , Service support , Chest X-Ray 09/04/23 16:52 IMPRESSION: No active disease. Electronically Signed: Leroy Barrett MD at 17:27 EDT Reading Location ID and State: 0637 / [employer] , Service support , Assessment & Plan Assessment/Plan (1) SINGH (acute kidney injury): (2) Atherosclerotic heart disease of three affiliated coronary artery without angina pectoris: QUALIFIERS: [place] vs. transplanted heart: three affiliated heart QualifiedCode(s): I25.10 - Atherosclerotic heart disease of three affiliated coronary artery without angina pectoris; I25.10 - Atherosclerotic heart disease of three affiliated coronary artery without angina pectoris; I25.10 - Atherosclerotic heart disease of three affiliated coronary artery without angina pectoris (3) Cardiomyopathy, [...] Varela MD Charges/Coding Visit Charges Inpatient E&M: 72069 Init Hosp L2 09/04/23 1833 <Electronically signed by Manisha Varela MD> Cosigner Signature (if applicable): CC: Dr. John Mckeon, DO; Dr. Manisha Varela MD~ Signed [facility] Work Phone: 1(691) 707-701811-04-2023 Discharge summary Author Murray Morgan [facility] September 04, 2023 6:24pm Note Date/Time September 04, 2023 3 :45pm [facility] Medical Records Department [address] [place] [address] Emergency Department Summary 09/04/23 MR#: [id number] Acct: [id number] Name: RAJAT GUZMÁN Rep #:[id number] : 1935 88 From: Murray Morgan MD PCP: Dr. John Mckeon, DO Status:[facility] Location: [place] [id number] HPI <MORTEZA Staton - Last Filed: 09/04/23 18:05> History of Present Illness Chief Complaint: Complaint Narrative Narrative: Patient is a 88-year-old male with history of [place], CAD, cardiomyopathy who presents to the emergency [...] denies any fever or chills. 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 Cloudy Urine pH 6.0 Ur Specific [place] 1.020 Urine Protein 15 H Urine Glucose [...] 17:36 EDT Reading Location ID and State: [employer] / [employer] , Service support , Chest X-Ray 09/04/23 16:52 IMPRESSION: No active disease. Electronically Signed: Leroy Barrett MD at 17:27 EDT Reading Location ID and State: 1407 / [employer] , Service support , Treatment and [...] Morgan MD - Last Filed: 09/04/23 18:24> [facility] MDM Narrative Medical decision making narrative: Dr. [...] 77.7 H Lymph % (Auto) 11.1 L [place] % (Auto) 10.2 H Eos % (Auto) [...] Sl. Cloudy Urine pH 6.0 Ur Specific [place] 1.020 Urine Protein 15 H Urine Glucose [...] 17:36 EDT Reading Location ID and State: 4053 / [employer] , Service support , Chest X-Ray 09/04/23 16:52 IMPRESSION: No active disease. Electronically Signed: Leroy Barrett MD at 17:27 EDT , Management Discussion w/another healthcare provider: Hospitalist and Arcade Game Technician (Dr. Barth) Discharge Plan Triage Chief [...] your Primary Care Provider. Call [facility] ([phone]) or report to the closest Emergency Room. Call 911 if necessary. 09/04/23 182 <Electronically signed by Murray Morgan MD> Cosigner Signature (if applicable): 09/04/23 180 <Electronically signed by Robbi PRO> CC: Dr. John Mckeon, ~ Signed [facility] Work Phone: 1(413) 369-309311-04-2023 Discharge summary Author Murray Morgan [facility] September 04, 2023 6:24pm Note Date/Time September 04, 2023 3 :45pm [facility] Medical Records Department [address] [place] [address] Emergency Department Summary 09/04/23 MR#: [id number] Acct: [id number] Name: RAJAT GUZMÁN Rep #:[id number] : 1935 88 From: Murray Morgan MD PCP: Dr. John Mckeon, Status:ADM [place] [facility] HPI <MORTEZA Staton - Last Filed: 09/04/23 18:05> History of Present Illness Chief Complaint: Complaint Narrative Narrative: Patient is a 88-year-old male with history of NH, CAD, cardiomyopathy who presents to the emergency [...] denies any fever or chills. 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 Cloudy Urine pH 6.0 Ur Specific [place] 1.020 Urine Protein 15 H Urine Glucose [...] 77.7 H Lymph % (Auto) 11.1 L [place] % (Auto) 10.2 H Eos % (Auto) [...] Sl. Cloudy Urine pH 6.0 Ur Specific [place] 1.020 Urine Protein 15 H Urine Glucose [...] 17:36 EDT Reading Location ID and State: 118 / [employer] , Service support , Chest X-Ray 09/04/23 16:52 IMPRESSION: No active disease. Electronically Signed: Leroy Barrett MD at 17:27 EDT Reading Location ID and State: [id number] / [place] [employer] , Service support , Management Discussion w/another healthcare provider: Hospitalist and Arcade Game Technician (Dr. Barth) Discharge Plan Triage Chief [...] problems, contact your Primary Care Provider. Call [employer] [facility] ([phone]) or report to the closest Emergency Room. Call 911 if necessary. 09/04/23 1595 <Electronically signed by Murray Morgan MD> Cosigner Signature (if applicable): 09/04/23 180 <Electronically signed by Robbi PRO> CC: Dr. John Mckeon, DO ~ Signed [facility] Work Phone: 1(531) 669-819402-26-[address] Morgan [facility] December 27, 2022 11:52pm Note Date/Time December 27, 2022 9:33pm [facility] Medical Records Department [address] [place] [address] Emergency Department Summary 12/27/22 MR#: [id number] Acct: [id number] Name: RAJAT GUZMÁN Rep #:[id number] : 1935 87 From: Murray Morgan MD [...] facetectomy with a mass over the vasectomysite. 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 Cloudy Urine pH 7.0 Ur Specific [place] 1.010 Urine Protein 15 H Urine Glucose [...] Referrals: John Mckeon DO [Med Staff - Acute Care Surgeon] - 2 Days Shailesh Mancini MD [Primary [...] your Primary Care Provider. Call [facility] ([phone]) or report to the closest Emergency Room. Call 911 if necessary. 12/27/22 2352 <Electronically signed by Murray Morgan MD> Cosigner Signature (if applicable): CC: Dr. John Mckeon DO; Dr. Shailesh Mancini MD ~ Signed [facility] Work Phone: 1(400) 198-826702-26-2023 Hospital Discharge instructions Additional Instructions Follow-up with Dr. Mckeon in the next 2 to 3 days. Return to the emergency department with fever, increased pain, new or worsening symptoms.[facility] Work Phone: 1(979) 325-169706-12-2017 Fall risk [id number]/06/12[facility] Work Phone: Discharge summary Author Manisha Varela [facility] September 06, 2023 3:14pm Note Date/Time September 06, 2023 3 :14pm [facility] Medical Records Department [address] [place] [address] Discharge Summary 09/06/23 1513 MR#: [id number] Acct: [id number] Name: RAJAT GUZMÁN Rep #:[id number] : 1935 88 From: Manisha Varela MD PCP: Dr. John Mckeon DO Status:ADM [facility]LEY [facility] Date of Admission: 09/04/23 Date of Discharge: 09/06/23 Primary Care Physician: Dr. John Mckeon DO Reason For Visit: UTI, SINGH, GENERAL WEAKNESS Diagnosis Discharge Diagnosis (1) SINGH (acute kidney injury): Status: Acute Code(s): N17.9 - Acute kidney failure, unspecified (2) Atherosclerotic heart disease of three affiliated coronary artery without angina pectoris: Status: Chronic Code(s): I25.10 - Atherosclerotic heart disease of three affiliated coronary artery without angina pectoris Qualifiers: [place] vs. transplanted heart: three affiliated heart Qualified Code(s): I25.10 -Atherosclerotic heart disease of three affiliated coronary artery without angina pectoris;I25.10 - Atherosclerotic heart disease of three affiliated coronary artery without angina pectoris; I25.10 - Atherosclerotic heart disease of three affiliated coronary artery without angina pectoris (3) Cardiomyopathy, [...] mg chewable tablet 81 mg PO DAILY [facility] 03/05/16 nitroglycerin 0.4 mg sublingual [...] with dual AICD, BPH, hypertension presented to [facility] 09/04/2023 with generalized weakness. Hehad [...] Self Care Charges/Coding Visit Charges Inpatient E&M: 71514 Disch Hosp >30min 09/06/23 1514 <Electronically signed by Manisha Varela MD> Cosigner Signature (if applicable): CC: Dr. John Mckeon DO; Dr. Manisha Varela MD~ Signed [facility] Work Phone: Evaluation note* Diagnosis Onset Date Resolution Status Cardiomyopathy, ischemic chr onic Chronic systolic congestive heart failure chronic Dual ICD (implantable 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 History of placement of internal cardiac defibrillator [facility] Work Phone: Evaluation note* Diagnosis Onset Date Resolution Status Cardiomyopathy, ischemic chr onic Chronic systolic congestive heart failure chronic Dual ICD (implantable 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 History of placement of inte rnal cardiac defibrillator chronic Atherosclerotic heart diseas e of three affiliated coronary artery without angina pectoris chronic Cardiomyopathy, ischemic chr onic Dyspnea chronic Essential hypertension chron ic History of placement of inte rnal cardiac defibrillator chronic Pure hypercholesterolemia [facility] Stented coronary artery December, [facility] Work Phone: Evaluation note* Diagnosis Onset Date Resolution Status Atherosclerotic heart diseas e of three affiliated coronary artery without angina pectoris chronic Cardiomyopathy, ischemic chr onic Dyspnea chronic Essential hypertension chron ic History of placement of inte rnal cardiac defibrillator chronic Pure hypercholesterolemia [facility] Stented coronary artery December, [facility] Cardiomyopathy, ischemic chr onic Chronic systolic congestive heart failure chronic Dual ICD (implantable 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 History of placement of inte rnal cardiac defibrillator [facility] Work Phone: Evaluation note* Diagnosis Onset Date Resolution Status Cardiomyopathy, ischemic chr onic Chronic systolic congestive heart failure chronic Dual ICD (implantable 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 Atherosclerotic heart diseas e of three affiliated coronary artery without angina pectoris chronic Cardiomyopathy, ischemic chr onic Essential hypertension chron ic History of placement of inte rnal cardiac defibrillator chronic Pure hypercholesterolemia joss Stented coronary artery [facility] Work Phone: Evaluation note* Diagnosis Onset Date Resolution Status Dual ICD (implantable 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 History of placement of internal cardiac defibrillator chronic [facility] Work Phone: Evaluation note* Diagnosis Onset Date Resolution Status Cardiomyopathy, ischemic chr onic Chronic systolic congestive heart failure chronic Dual ICD (implantable 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 Cardiomyopathy, ischemic chr onic Chronic systolic congestive heart failure chronic Coronary artery disease habilitation specialist elizabeth Dual ICD (implantable 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 Dyslipidemia chronic Essential hypertension chron ic Presence of stent in coronary artery December, chronic [facility] Work Phone: Evaluation noteNo assessment information available [facility] Work Phone: Evaluation note* Diagnosis Onset Date Resolution Status Acute dehydration acute Acute metabolic encephalopathy acute SINGH (acute kidney injury) ac moy Episode of generalized weakness acute Urinary retention acute UTI (urinary tract infection) acute Atherosclerotic heart diseas e of three affiliated coronary artery without angina pectoris chronic Cardiomyopathy, 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 [facility] Work Phone: Evaluation note* Diagnosis Onset Date Resolution Status Urinary retention acute UTI (urinary tract infection) acute Atherosclerotic heart diseas e of three affiliated coronary artery without angina pectoris chronic Cardiomyopathy, 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 Acute dehydration resolved Acute metabolic encephalopathy resolved SINGH (acute kidney injury) re solved Episode of generalized weakness resolved [facility] Work Phone: Evaluation note* Diagnosis Onset Date Resolution Status Urinary retention acute UTI (urinary tract infection) acute Atherosclerotic heart diseas e of three affiliated coronary artery without angina pectoris chronic Cardiomyopathy, [...] Presence of stent in coronary artery December, [facility] Work Phone: Evaluation note* Diagnosis Benign prostatic hyperplasia with lower urinary tract symptoms, symptom details unspecified Retention of urine Unspecified retention of urine Nocturia Abnormal digital rectal exam documented in this encounter [facility] Work Phone: Evaluation note* Diagnosis Incomplete bladder emptying- Primary documented in this encounter [facility] Work Phone: Evaluation note* Diagnosis Elevated PSA- Primary Elevated prostate specific antigen (PSA) documented in this encounter [facility] Work Phone: Evaluation note* Diagnosis Elevated PSA Elevated prostate specific antigen (PSA) Abnormal digital rectal exam Malignant neoplasm of prostate (Multi) Malignant neoplasm of prostate Retention of urine Unspecified retention of urine documented in this encounter [facility] Work Phone: Evaluation note* Diagnosis Malignant neoplasm of prostate (Multi) Malignant neoplasm of prostate documented in this encounter [facility] Work Phone: Evaluation note* Diagnosis Malignant neoplasm of prostate (Multi) Malignant neoplasm of prostate Abnormal digital rectal exam Elevated PSA Elevated prostate specific antigen (PSA) Retention of urine Unspecified retention of urine Urinary retention- Primary Unspecified retention of urine documented in this encounter [facility] Work Phone: Evaluation note* Diagnosis Urinary retention- Primary Unspecified retention of urine Urinary retention Unspecified retention of urine documented in this encounter [facility] Work Phone: Evaluation note* Diagnosis Urinary retention Unspecified retention of urine documented in this encounter [facility] Work Phone: Evaluation note* Diagnosis Urinary retention Unspecified retention of urine Bladder spasm Hypertonicity of bladder Malignant neoplasm of prostate (Multi) Malignant neoplasm of prostate documented in this encounter [facility] Work Phone: Evaluation note* Diagnosis Bladder spasms- Primary Hypertonicity of bladder Urinary retention Unspecified retention of urine documented in this encounter [facility] Work Phone: Evaluation note* Diagnosis Urinary retention Unspecified retention of urine documented in this encounter [facility] Work Phone: Evaluation note* Diagnosis Urinary retention Unspecified retention of urine documented in this encounter [facility] Work Phone: Evaluation note* Diagnosis Prostate cancer (Multi)- Primary Malignant neoplasm of prostate Urinary retention Unspecified retention of urine Bladder spasm Hypertonicity of bladder Malignant neoplasm of prostate (Multi) Malignant neoplasm of prostate Urinary retention Unspecified retention of urine documented in this encounter [facility] Work Phone: History and physical note Author Manisha Varela [facility] September 04, 2023 6:33pm Note Date/Time September 04, 2023 6 :23pm [facility] Medical Records Department [address] [place] [address] H&P Exam - Hospitalist 09/04/23 1820 MR#: [id number] Acct: [id number] Name: RAJAT GUZMÁN Rep #:[id number] : 1935 88 From: Manisha Varela MD PCP: Dr. John Mckeon, DO Status:ADM [place]STLEY [place] [facility] [place]-4 HPI - General General Date of Admission: 09/04/23 Date of Service: 09/04/23 Chief Complaint: Gen weakness, abd pain, confusion HPI Narrative RAJAT GUZMÁN, is a 88-year-old male history of coronary artery disease, heart failure with reduced ejection fraction with dual AICD, BPH, hypertension presented to [facility] 09/04/2023 with generalized weakness. Hehad [...] other complaints at this time. [facility] Medical History (Updated 09/04/23 @ 18:[address] 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 Cloudy, Urine pH 6.0, Ur Specific [place] 1.020, Urine Protein 15 H, Urine Glucose [...] 77.7 H, Lymph % (Auto) 11.1 L, [place] % (Auto) 10.2 H, Eos % (Auto) [...] 17:36 EDT Reading Location ID and State: 140[employer] / [employer] , Service support , Chest X-Ray 09/04/23 16:52 IMPRESSION: No active disease. Electronically Signed: Leroy Barrett MD at 17:27 EDT Reading Location ID and State: [id number] / [place] [employer] , Service support , Assessment & Plan Assessment/Plan (1) SINGH (acute kidney injury): (2) Atherosclerotic heart disease of three affiliated coronary artery without angina pectoris: QUALIFIERS: [place] vs. transplanted heart: three affiliated heart QualifiedCode(s): I25.10 - Atherosclerotic heart disease of three affiliated coronary artery without angina pectoris; I25.10 - Atherosclerotic heart disease of three affiliated coronary artery without angina pectoris; I25.10 - Atherosclerotic heart disease of three affiliated coronary artery without angina pectoris (3) Cardiomyopathy, [...] Varela MD Charges/Coding Visit Charges Inpatient E&M: 01290 Init Hosp L2 09/04/23 1833 <Electronically signed by Manisha Varela MD> Cosigner Signature (if applicable): CC: Dr. John Mckeon DO; Dr. Manisha Varela MD~ Signed [facility] Work Phone: Hospital Discharge instructions Additional Instructions Implant Used?: [facility] Work Phone: Reason for referral (narrative)No reason for referral information availableWLima City [facility] Work Phone: Reason for visit Narrative* Auth/Cert Specialty Diagnoses / Procedures Referred By Krys rangel Referred To Contact Diagnoses Urinary retention Urinary retention [R33.9] Procedures HI CYSTOSTOMY CYSTOTOMY W/DRAINAGE Cystotomy Suprapubic Asmita Zambrano MD [address] [place] [address] [address] Referral ID Status Reason Start Date Expiration Date Visits Re quested Visits Authorized [id number] 1 1 [facility] Work Phone: Reason for visit Narrative* /Urology (Routine) - Authorized Specialty Diagnoses / Procedures Referred By Krys rangel Referred To Contact Urology Diagnoses Other retention of urine Procedures HI CHANGE CYSTOSTOMY TUBE SIMPLE [address] [address] Phone: tel: fax: Asmita Zambrano MD [address] [place] [address] Phone: tel: fax: Referral ID Status Reason Start Date Expiration Date V isits Requested Visits Authorized [id number] Authorized 11/28/2024 11/28/2025 1 1 [facility] Work Phone: Rehsqy for visit Narrative* Consultation (Routine) - Authorized Specialty Diagnoses / Procedures Referred By Krys t Referred To Contact Urology Diagnoses Urinary retention Procedures Follow Up In Urology Jian Caro MD [facility] [address] [place] [address] Phone: tel: fax: Referral ID Status Reason Start Date Expiration Date V isits Requested Visits Authorized [id number] Authorized 04/09/2025 04/09/2026 1 1 [facility] Work Phone: Advance Directives Documents on File Type Date Recorded 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 Expl anation Advance Directive(s) 06/10/2016 3:34 PM Advance Directive Response Recorded Date/ Time Advance Directives Yes September 6:49pm Living Will No November 15 7:07pm Power of Financial Advisor No November 15, 2020 7:07pm Advance Directive Response Recorded Date/ Time Advance Directives Yes September 5:49pm Living Will No November 15 6:07pm Power of Financial Advisor No November 15, 2020 6:07pm Advance Directive Response Recorded Date/ Time Advance Directives Yes September 5:49pm Living Will No October 16, 022 1:05pm Power of Financial Advisor No October 16, 2022 1:05pm Advance Directive Response Recorded Date/ Time Name of Medical Power of Financial Advisor unknown December 27, 2022 9:53pm Advance Directives Yes September 5:49pm Living Will Yes December 27 023 9:53pm Power of Financial Advisor Yes December 27, 2022 9:53pm Advance Directive Response Recorded Date/ Time Name of Medical Power of Financial Advisor unknown December 27, 2022 10:53pm Name of Medical Power of Financial Advisor UNKNOWN January 06, 2023 10:21am Advance Directives Yes September 6:49pm Living Will No January 06, 2023 10:21am Power of Financial Advisor Yes January 06 10:21am Advance Directive Response Recorded Date/ Time Advance Directives Yes September 6:49pm Living Will No January 06, 2023 10:21am Power of Financial Advisor Yes January 06 10:21am Advance Directive Response Recorded Date/ Time Advance Directives Yes September 6:49pm Living Will No September 04 4:38pm Power of Financial Advisor No September 04, 2023 4:38pm Advance Directive Response Recorded Date/ Time Advance Directives Yes September 5:49pm Living Will No September 04 7:17pm Power of Financial Advisor No September 04, 2023 7:17pm Advance Directive Response Recorded Date/ Time Advance Directives Yes September 5:49pm Living Will No October 20, 023 4:11pm Power of Financial Advisor No October 20, 2023 4:11pm Advance Directive Response Recorded Date/ Time Advance Directives Yes September 5:49pm Living Will No October 11, 2 023 1:45pm Power of Financial Advisor No October 11, 2023 1:45pm Date Activated [...] Do you have a Healthcare Power of Financial Advisor? Yes March 30, 2024 3:36am Living Will Yes December 16, 025 4:11pm Do you have a Healthcare Power of Financial Advisor? Yes December 16, 2024 4:11pm Name of Medical Power of Financial Advisor boogie bravo and michelle campos December 16, 2024 4:11pm Advance Directives Yes September 6:49pm Advance Directive Response Recorded Date/ Time Do you have a Healthcare Power of Financial Advisor? 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, ischemic Essential hypertension History of placement of internal cardiac defibrillator Pure hypercholesterolemia Stented coronary artery Chief Complaint 3 mos remote ICD f/u 1 Y FU cysto with dilation of urethral stricture Reason for Visit Cardiomyopathy, isch emic Chronic systolic congestive heart failure 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, ischemic [...] (urinary tract infection) 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, ischemic [...] pelvis w IV contrast Asmita Zambrano MD [address] [place] [address] Referral ID Status Reason Start Date Expiration Date Visits Requested Visits Authorized [id number] Pending Review Perform Procedure 04/26/2024 04/26/2025 1 1 Specialty Diagnoses / Procedures Referred By Krys rangel Referred To Contact Radiology Diagnoses Malignant neoplasm of prostate (Multi) Procedures CT abdomen pelvis w IV contrast Asmita Zambrano MD [address] [place] [address] Referral ID Status Reason Start Date Expiration Date Visits Requested Visits Authorized [id number] Pending Review Perform Procedure 06/28/2024 06/28/2025 1 1 Referral ID Status Reason Start Date Expiration Date Visits Requested Visits Authorized [id number] Authorized Perform Procedure 06/28/2024 06/28/2025 1 1 Specialty Diagnoses / Procedures Referred By Contac t Referred To Contact Diagnoses Malignant neoplasm of prostate (Multi) Asmita Zambrano MD [address] [place] [id number] Referral ID Status Reason Start Date Expiration Date V isits Requested Visits Authorized [id number] Pending Review 07/12/2024 07/12/2025 1 1 Additional Source Comments Source Comments (unrecognize d section and content) In the event this informatio n is protected by the Federal Confidentiality of Alcohol and Drug Abuse Patient Records regulations: The Federal rules restrict any use of the information to criminally investigate or prosecute any alcohol or drug abuse patient.[facility] Reason for Visit (unrecogniz ed section and content) Reason Onset Date Comments Refill Request 10/18/2011 Reason Comments CYSTOSCOPY Reason Comments PROSTATE BIOPSY Reason Comments TRUS RESULTS Specialty Diagnoses / Procedures Referred By Contac t Referred To Contact Radiology Diagnoses Malignant neoplasm of prostate (Multi) Procedures CT abdomen pelvis w IV contrast Asmita Zambrano MD [address] [place] [address] Referral ID Status Reason Start Date Expiration Date Visits Requested Visits Authorized [id number] Authorized Perform Procedure 06/28/2024 06/28/2025 1 1 Reason Comments LUPRON AND CT RESULTS Specialty Diagnoses / Procedures Referred By Contac t Referred To Contact Diagnoses Malignant neoplasm of prostate (Multi) Asmita Zambrano MD [address] [place] [address] Referral ID Status Reason Start Date Expiration Date V isits Requested Visits Authorized [id number] Pending Review 07/12/2024 07/12/2025 1 1 Reason Comments ROD CHANGE Specialty Diagnoses / Procedures Referred By Contac t Referred To Contact Urology Diagnoses Retention of urine, unspecified Procedures HI CHANGE CYSTOSTOMY TUBE SIMPLE [facility] [address] [place] [address] [address] [place] [address] Phone: tel: fax: [place] [address] [place] [address] Phone: tel: fax: Referral ID Status Reason Start Date Expiration Date V isits Requested Visits Authorized [id number] Authorized 12/27/2024 12/27/2025 1 1 Goals (unrecognized [...] DO Primary Care Provider Active Cynthia Bowen RETAIL BRAND AMBASSADOR, RETAIL BRAND AMBASSADOR-C Attending Provider, Referring P alana Active Team [...] Provider, Referrin g Provider Active Cynthia Bowen RETAIL BRAND AMBASSADOR, RETAIL BRAND AMBASSADOR-C Attending Provider Active Team Status: Inactive Member Role Status Dates Dr. John Mckeon DO Primary Care Provider Active Dr. Timoteo Mullins MD Attending Provider, Referring Pro vider Active Sewer And Drain Technician Relationship Specialty Start Date End Date John Mckeon DO [address] [place] [phone] PCP - General Family Medicine 03/14/24 Sewer And Drain Technician Relationship Specialty Start Date End Date John Mckeon DO [address] [place] [phone] PCP - General Family Medicine 03/14/24 Sewer And Drain Technician Relationship Specialty Start Date End Date John Mckeon DO [address] [place] [place] [phone] PCP - General Family Medicine 03/14/24 Sewer And Drain Technician Relationship Specialty Start Date End Date John Mckeon DO [address] [place] [phone] PCP - General Family Medicine 03/14/24 Sewer And Drain Technician Relationship Specialty Start Date End Date John Mckeon DO [address] [place] [phone] PCP - General Family Medicine 03/14/24 Sewer And Drain Technician Relationship Specialty Start Date End Date John Mckeon DO [address] [place] [phone] PCP - General Family Medicine 03/14/24 Sewer And Drain Technician Relationship Specialty Start Date End Date John Mckeon DO [address] [place] [phone] PCP - General Family Medicine 03/14/24 Sewer And Drain Technician Relationship Specialty Start Date End Date John Mckeon DO [address] [place] [phone] PCP - General Family Medicine 03/14/24 Sewer And Drain Technician Relationship Specialty Start Date End Date John Mckeon [address] [place] [address] PCP - General Family Medicine 03/14/24 Sewer And Drain Technician Relationship Specialty Start Date End Date John Mckeon [address] [place] [phone] PCP - General Family Medicine 03/14/24 Sewer And Drain Technician Relationship Specialty Start Date End Date John Mckeon DO [address] [place] [phone] PCP - [...] February 05, 2025 End: February 05, 2025 Sewer And Drain Technician Relationship Specialty Start Date End Date John Mckeon DO [address] [place] [phone] PCP - General Family Medicine 03/14/24 Sewer And Drain Technician Relationship Specialty Start Date End Date John Mckeon DO [address] [place] [phone] PCP - General Family Medicine 03/14/24 Team [...] 2025 End: March 12, 2025 Cynthia Bowen RETAIL BRAND AMBASSADOR, RETAIL BRAND AMBASSADOR-C Attending Provider Active Start: March 12, 2025 [...] section and content) DATE CREATED AUTHOR 07/25/2024 [facility] DATE CREATED AUTHOR AUTHOR'S ORGANIZ ATION 04/25/2025 [facility] DATE CREATED AUTHOR AUTHOR'S ORGANIZ ATION 04/26/2025 [facility] Scheduled Active and Recently Administ ered Medications [...] BE BASED ON THE PRIMARY CLINICAL RECORDS. [facility]. provides no warranty or guarantee of the accuracy or completeness of information in this document.
[2025-04-28 20:32] VITALS: BMI 20.7
[2025-04-28 20:36] VITALS: BP 167/90; PULSE 117; RESP 16; TEMP 36.9; O2SAT 96
[2025-04-28] MEDS: proCHLORPERazine 10 MG/2 ML Vial 5 MG IV (21:08)
[2025-04-28] MEDS: 0.9% Saline Lock 10 ML Syringe IV (21:09)
[2025-04-28] MEDS: Piperacil/Tazobactam 4.5 GM in 0.9% Normal Saline (100mL MB+) 100 ML IV (21:09)
[2025-04-28] MEDS: 0.9% Normal Saline (1000mL) 1,000 ML 50 ML IV (21:10)
[2025-04-28] MEDS: Atorvastatin Calcium 10 MG Tablet PO (23:04)
[2025-04-28] MEDS: SACUBITRIL/VALSARTAN 24/26 MG TABLET 1 EACH PO (23:04)
[2025-04-28] MEDS: Tamsulosin HCl 0.4 MG Capsule PO (23:04)
[2025-04-28] MEDS: MELATONIN 10 MG TABLET PO (23:04)
[2025-04-28] MEDS: Carvedilol 6.25 MG Tablet PO (23:04)
[2025-04-29] MEDS: Acetaminophen 325 MG Tablet 650 MG PO (01:17)
[2025-04-29 02:59] VITALS: BP 127/62; PULSE 66; RESP 16; TEMP 36.8; O2SAT 94
[2025-04-29 05:22] LABS: Absolute Lymphocyte Count 1.88 X10^3/uL (0.83-4.51); Absolute Neutrophil Count 6.7 X10^3/uL (2.0-7.7); Basophil# 0.02 X10^3/uL; Basophil% 0.2 % (0-1); Eosinophil# 0.02 X10^3/uL; Eosinophils% 0.2 % (0-5); Hematocrit 35.2 % (40-54); Hemoglobin 11.6 g/dL (13.0-16.5); Lymphocyte # 1.88 X10^3/ul (0.83-4.51); Lymphocyte % 19.4 % (19-41); Mean Corpuscular Hgb 29.8 pg (27.0-32.0); Mean Corpuscular Volume 90.5 fL (80-94); Monocyte# 1.03 X10^3/uL; Monocyte% 10.6 % (0-10); NRBC Flagged by Analyzer 0 % (0-5); Neutrophil # 6.71 X10^3/uL (2.7-7.7); Neutrophil % 69.2 % (47-70); Platelet Count 185 K/mm3 (150-450); RBC Distribution Width CV 13.3 % (11.6-14.6); RBC Distribution Width SD 43.8 fl (35.1-43.9); Red Blood Count 3.89 M/mm3 (4.6-6.2); White Blood Count 9.7 K/mm3 (4.4-11.0)
[2025-04-29] MEDS: Piperacil/Tazobactam 3.375 GM in 0.9% Normal Saline (50mL MB+) 50 ML IV (05:34)
[2025-04-29 06:12] LABS: Anion Gap 12 (5-15); BUN 8 mg/dL (4-19); BUN/Creat Ratio 9.2 RATIO (10-20); Calcium,Total 9.1 mg/dL (7.6-11.0); Carbon Dioxide 24.4 mmol/L (21.0-32.0); Chloride 102 mmol/L (98-108); Creatinine, Serum 0.88 mg/dL (0.70-1.20); EST Glomerular Filtration Rate 82 (>60); Estimated Creatinine Clearance 42.72 ml/min (50-250); Glucose 124 mg/dL (70-99); Potassium 4.1 mmol/L (3.3-5.1); Sodium Level 138 mmol/L (133-145)
--- NOTE | 2025-04-29 07:17 | PN.HOSP_ITS ---
Objective Data Objective Data Vital Signs: Vital Signs Temp Pulse Resp BP Pulse Ox O2 Del Method 98.2 F 66 16 127/62 H 94 Room Air 04/29/25 02:59 04/29/25 02:59 04/29/25 02:59 04/29/25 02:59 04/29/25 02:59 04/29/25 02:59 Oxygen Delivery Method Room Air Weight: 53.07 kg Body Mass Index (BMI) 20.7 Intake & Output: Intake and Output for Last 24 Hours 04/27/25 04/28/25 04/29/25 23:59 23:59 23:59 Intake Total 650 / 650 420 / 420 Output Total 750 / 750 Balance 650 / 250 -330 / -330 Lab / Micro Data 04/29/25 04:51 04/29/25 04:51 Labs: Laboratory Results - last 24 hr 04/28/25 16:20: WBC 11.5 H, RBC 4.14 L, Hgb 12.4 L, Hct 37.3 L, MCV 90.1, MCH 30.0, MCHC 33.2, RDW Std Deviation 44.0 H, RDW Coeff of Arleen 13.4, Plt Count 189, MPV 10.6, Immature Gran % (Auto) 0.200, Neut % (Auto) 72.7 H, Lymph % (Auto) 17.9 L, [place] % (Auto) 8.6, Eos % (Auto) 0.2, Baso % (Auto) 0.4, Absolute Neuts (auto) 8.3 H, Absolute Lymphs (auto) 2.05, Nucleated RBC % 0, Sodium 137, Potassium 3.8, Chloride 99, Carbon Dioxide 24.7, Anion Gap 12, BUN 9, Creatinine 0.82, Estim Creat Clear Calc 46.43 L, Est GFR (MDRD) Non-Af 84, BUN/Creatinine Ratio 10.5, Glucose 149 H, Lactic Acid 1.2, Calcium 9.3, Total Bilirubin 0.81, AST 21, ALT 10, Alkaline Phosphatase 64, Total Protein 7.3, Albumin 3.9, Globulin 3.3, Albumin/Globulin Ratio 1.2 04/29/25 04:51: WBC 9.7, RBC 3.89 L, Hgb 11.6 L, Hct 35.2 L, MCV 90.5, MCH 29.8, MCHC 33.0, RDW Std Deviation 43.8, RDW Coeff of Arleen 13.3, Plt Count 185, MPV 11.0, Immature Gran % (Auto) 0.400, Neut % (Auto) 69.2, Lymph % (Auto) 19.4, M simon % (Auto) 10.6 H, Eos % (Auto) 0.2, Baso % (Auto) 0.2, Absolute Neuts (auto) 6.7, Absolute Lymphs (auto) 1.88, Nucleated RBC % 0, Sodium 138, Potassium 4.1, Chloride 102, Carbon Dioxide 24.4, Anion Gap 12, BUN 8, Creatinine 0.88, Estim Creat Clear Calc 42.72 L, Est GFR (MDRD) Non-Af 82, BUN/Creatinine Ratio 9.2 L, Glucose 124 H, Calcium 9.1
[2025-04-29 08:12] VITALS: BP 139/58; PULSE 65; RESP 16; TEMP 36.1; O2SAT 94
[2025-04-29] MEDS: Aspirin E.C. 81 MG Tablet PO (08:23)
[2025-04-29] MEDS: Tamsulosin HCl 0.4 MG Capsule PO (08:24)
[2025-04-29] MEDS: Carvedilol 6.25 MG Tablet PO (08:24)
[2025-04-29] MEDS: SACUBITRIL/VALSARTAN 24/26 MG TABLET 1 EACH PO (08:24)
[2025-04-29] MEDS: Enoxaparin 40 MG/0.4 ML Syringe SC (08:31)
[2025-04-29] MEDS: Ondansetron 4 MG/2 ML Vial IV (08:31)
[2025-04-29 11:15] VITALS: BP 127/58; PULSE 63; RESP 16; TEMP 36.3; O2SAT 98
--- NOTE | 2025-04-29 12:50 | NURSING ---
pt stated he wants to go home. explained that if he eats and irma food he could go home. pt refused to eat or drink pt stated that if he doesn't get out of here he will . he said all he wants to do is go home. dr dudley notified. and stated that if pt wants to leave it will be ama. pt insists that he is going home. pt signed ama papers. pt stated he will go to the dr tomorrow. pt stated when he goes home he will eat. that he does not eat when he is sick and buy staying here it will kill him. leg bag given to pt. explained to pt that he needs to take an antibiotic for his uti. dr dudley calling script to [facility].
--- NOTE | 2025-04-29 12:51 | PCM.HOSP.N ---
Hospitalist Note Mr. Lomas is an 89-year-old white male who presented to the emergency department at [facility] on 04/27/2025 with a chief complaint of poor p.o. intake. He was found to have a UTI and placed on Keflex at the time of discharge but has been having nausea and vomiting with dry heaves and not able to take his medication so he represented to the emergency department on 04/08/2025 at which time he was admitted, placed on IV fluids, IV antibiotics, and antiemetics. Patient had previously had ESBL producing organism so he was placed on broad-spectrum antibiotics culture was sent. Culture was pending at the time that the patient left. On 04/29/2025 we tried to get him to take in different types of food and liquid. We try to tailor the diet to what his legs were and the volume that he likes to eat however the patient declined food. He was adamant that he wanted to go home. We tried to discuss with him the potential of resistant organisms in his urine that oral antibiotics that were prescribed on the would not cover and the fact that we would like to make sure he eats and drinks well before he goes home so he tolerates his oral antibiotics however the patient would not have any of it and he wanted to leave AGAINST MEDICAL ADVICE. He stated we were killing him here.. I did review that the antibiotic was sent to [facility]. He has Keflex 500 mg p.o. twice daily for 14 days that was prescribed by the emergency department physician. He states that he will just follow-up with his primary care physician tomorrow. We again tried to get him to stay in the hospital however he was adamant and he left after signing out AGAINST MEDICAL ADVICE. Patient's risk for readmission is extremely high.
== END 2025-04-29 13:12 | disposition left against medical advice (07) | DRG 690 ==
LOC: ED 17:32 → MS3 18:55
PROVIDERS: Admitting Provider Internal Medicine; Emergency Provider Emergency Medicine; PCP Family Medicine; Visit Provider Internal Medicine
DX: N39.0 Urinary tract infection, site not specified (principal); D64.9 Anemia, unspecified; I25.10 Atherosclerotic heart disease of native coronary artery without angina pectoris; I25.2 Old myocardial infarction; Z79.82 Long term (current) use of aspirin; Z82.49 Family history of ischemic heart disease and other diseases of the circulatory system; Z95.5 Presence of coronary angioplasty implant and graft; Z95.810 Presence of automatic (implantable) cardiac defibrillator; N40.1 Benign prostatic hyperplasia with lower urinary tract symptoms; N13.8 Other obstructive and reflux uropathy
CPT/HCPCS: 36415; 80048; 80053; 81001; 83605; 83690; 85025; 87077; 87086; 87088; 87186; 96361; 96365; 96375; 99282; 99284; A4216; J2405

== ENCOUNTER → 2025-05-09 | Outpatient (CLI) | payer MEDICARE, SELFPAY ==
[2018-12-28 14:17] VITALS: BMI 22.3
--- NOTE | 2025-05-09 12:13 | RAD_ITS ---
EXAM: XR Abdomen, 1 View CLINICAL INDICATION: UNSPECIFIED ABD PAIN TECHNIQUE: Frontal supine view of the abdomen/pelvis. COMPARISON: No relevant prior studies available. FINDINGS: GASTROINTESTINAL TRACT: Fecal retention in the colon consistent with constipation. No dilation. BONES/JOINTS: Unremarkable. No acute fracture. LYMPH NODES: Probable calcific density over left-sided mid abdomen, prior from calcified lymph nodes. These are better demonstrated on CT abdomen pelvis dated 04/07/2023. RAD/Abdomen Single View IMPRESSION: Fecal retention in the colon consistent with constipation. Reading Location[facility]
== END | disposition home or self-care (01) ==
LOC: RAD 12:10
PROVIDERS: PCP Family Medicine; Referring Provider Family Medicine; Visit Provider Family Medicine
DX: R10.9 Unspecified abdominal pain (principal)
CPT/HCPCS: 74018

== ENCOUNTER 2025-05-25 15:51 | Inpatient (IN) | payer MEDICARE, SELFPAY ==
[2018-12-28 14:17] VITALS: BMI 22.3
[2025-05-25] VITALS (10 sets, daily range): BP systolic 105–145; BP diastolic 51–85; PULSE 62–84; RESP 15–18; TEMP 36.8–37.2; O2SAT 94–100; BMI 19.7
--- NOTE | 2025-05-25 16:47 | EKG12_ITS ---
Test Reason : Blood Pressure : */* mmHG Vent. Rate : 70 BPM Atrial Rate : 70 BPM P-R Int : 170 ms QRS Dur : 114 ms QT Int : 382 ms P-R-T Axes : 44 -23 92 degrees QTcB Int : 412 ms Sinus rhythm with occasional Premature ventricular complexes Minimal voltage criteria for LVH, may be normal variant ( [place] product ) Septal infarct , age undetermined Abnormal ECG Confirmed by VANITA PASCUAL, JUSTYN ([id number]), copy editor GIRMA GREGG ([id number]) on 05/28/2025 8:32:22 AM Referred By: Confirmed By: JUSTYN WALDRON MD
--- NOTE | 2025-05-25 16:48 | EX.ED.DYSGE1 ---
HPI History of Present Illness Chief Complaint: Complaint Informant: patient and family Narrative Narrative: 89-year-old male advised to come to the ER based on culture results that were done in the health system. Apparently he has felt poorly for 1 month. He has an indwelling Rod catheter that is been there for 2 or 3 years. He has been on antibiotics in this past month despite not getting better. Culture that was done earlier in the week that returned today according to family and patient shows something that can only be treated with IV antibiotics so they were advised to go to the hospital and that the records are all in [facility]. He states recently he has had some coughing and shortness of breath. No fevers or chills. No syncope. He is still able to walk and drive just feels very fatigued and weak all over. No GI symptoms. 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 General weakness Otitis media Elevated troponin Orchitis of right testicle Sepsis Implantable cardioverter-defibrillator (ICD) at end of battery life Essential hypertension Family history of CVA Family history of hypertension FH: sudden cardiac (SCD) History of placement of internal cardiac defibrillator HTN (hypertension) Old myocardial infarction Angina pectoris Cardiomyopathy, ischemic Chronic systolic congestive heart failure HLD (hyperlipidemia) Abnormal result of cardiovascular function study, unspecified High risk medication use Iron deficiency anemia Chest pain, precordial Atherosclerotic heart disease of [place] coronary artery without angina pectoris Dyspnea Fatigue Hypokalemia Benign prostatic hypertrophy SBO (small bowel obstruction) Home Medications ?Medication ?Instructions ?Recorded ?Last Taken ?Type aspirin 81 mg tablet,delayed 81 mg PO DAILY 05/23/24 05/25/25 History release (Adult Low Dose Aspirin) nitroglycerin 0.4 mg sublingual 0.4 mg sublingual Q5M PRN Chest 05/23/24 Unknown Rx tablet Pain #25 tabs tamsulosin 0.4 mg capsule 0.4 mg PO QDAY 05/23/24 05/25/25 History simvastatin 20 mg tablet 20 mg PO QHS for cholesterol #90 08/23/24 05/24/25 Rx TABLETS carvedilol 6.25 mg tablet 6.25 mg PO BID #60 tabs 11/10/24 05/25/25 Rx prednisone 5 mg tablet 2 mg PO QDAY 11/10/24 05/25/25 History sacubitril 24 mg-valsartan 26 mg 1 tab PO BID #60 tabs 03/14/25 05/25/25 Rx tablet (Entresto) cephalexin 500 mg capsule 500 mg PO Q6 #28 CAPSULES 04/27/25 05/25/25 Rx diphenhydramine 25 2 tab PO QHS 04/28/25 05/24/25 History mg-acetaminophen 500 mg tablet (Tylenol PM Extra Strength) melatonin 10 mg tablet 20 mg PO QHS sleep 04/28/25 05/24/25 History oxybutynin chloride 5 mg tablet 5 mg PO DAILY 04/28/25 05/25/25 History prednisone 1 mg tablet 2 mg PO DAILY 05/25/25 05/25/25 History Allergy/AdvReac Type Severity Reaction Status Date / Time morphine Allergy Intermediate Rash Verified 05/25/25 15:53 zolpidem tartrate (From AdvReac Intermediate CONFUSION Verified 05/25/25 15:53 Ambien) Family History Mother CAD (coronary artery disease) CVA (cerebral vascular accident) Myocardial infarction, Onset Age: 67 Hypertension Brother CAD (coronary artery disease) Hypertension Cancer Lung CA Myocardial infarction, Onset Age: 73 Father Myocardial infarction, Onset Age: 77 Daughter Cancer Son Myocardial infarction, Onset Age: 46 Other Cardiomyopathy, ischemic Chronic systolic congestive heart failure Fatigue General weakness Iron deficiency anemia Surgical History H/O dilation of urethra Hx of transurethral resection of prostate Presence of coronary artery bypass graft stent (~12/28/18) History of cardiac catheterization Hx of colonoscopy Hx of surgical procedure History of hernia repair History of prostate surgery History of left heart catheterization Social History household members: spouse Smoking Status: Never smoker alcohol intake: never substance use type: does not use caffeine: Yes Type: carbonated beverages and coffee Number of servings: 1 what type of physical activity do you participate in: none seatbelt use: always do you feel safe at home: Yes ROS ROS ED Constitutional Constitutional ED: Reports fatigue, malaise and weakness; Denies chills or fever(s) Eyes Eyes: Denies change in vision or diplopia ENT ENT ED: Denies rhinorrhea or sore throat Cardiovascular Cardiovascular: Denies chest pain, lightheadedness, palpitations or syncope Respiratory/Chest Respiratory/Chest: Reports cough and dyspnea on exertion Gastrointestinal Gastrointestinal: Denies abdominal pain, diarrhea, nausea or vomiting Genitourinary Genitourinary ED: Denies hematuria Musculoskeletal Musculoskeletal: Denies back pain or neck pain Integumentary Denies abscess or rash Neurologic Neurologic: Denies headache(s), paresthesias or weakness Psychiatric Psychiatric: Denies anxiety or suicidal thoughts EXAM Physical Exam Const Vital Signs: 05/25/25 15:51 05/25/25 16:51 05/25/25 17:00 Temperature 98.9 F Temperature Source Oral Pulse Rate 81 66 62 Respiratory Rate 18 15 Blood Pressure 124/75 H 111/53 L 108/72 Blood Pressure Mean 91 72 84 Pulse Ox 98 100 98 Oxygen Delivery Method Room Air Room Air Room Air 05/25/25 17:15 05/25/25 17:17 05/25/25 18:00 Temperature 98.9 F 98.3 F Temperature Source Oral Oral Pulse Rate 67 68 Respiratory Rate 15 16 Blood Pressure 111/53 L 123/53 H Blood Pressure Mean 72 76 Pulse Ox 97 97 Oxygen Delivery Method Room Air Room Air Room Air 05/25/25 18:00 05/25/25 18:59 05/25/25 19:00 Temperature 98.3 F Temperature Source Oral Pulse Rate 68 Respiratory Rate 16 Blood Pressure 123/53 H 119/56 L 119/56 L Blood Pressure Mean 76 77 77 Pulse Ox 99 Oxygen Delivery Method Room Air 05/25/25 19:38 05/25/25 20:00 Temperature 98.8 F 98.8 F Temperature Source Oral Pulse Rate 70 75 Respiratory Rate 16 16 Blood Pressure 113/57 L 105/85 H Blood Pressure Mean 75 91 Pulse Ox 100 98 Oxygen Delivery Method Room Air Positive well nourished and well developed General Appearance ED: well developed and NAD HEENT Reports moist mucous membranes normocephalic and atraumatic Eyes PERRL and EOMs intact bilaterally Neck full ROM and supple Resp normal respiratory effort and clear to auscultation bilaterally Cardio regular rate, regular rhythm and no murmurs GI non-tender and non-distended Auscultation: normoactive bowel sounds Palpation: soft Back/Spine no CVA tenderness General Back: other FROM Extremity normal to inspection General Extremety ED: Negative for edema, pulses abnormal or tenderness General Extremity: Negative for edema or pulses abnormal Neuro oriented x3, CN's II-XII intact bilaterally and no sensory deficits noted Sensorium / Orientation: awake and alert Motor Exam: strength 5/5 throughout Skin no rashes or lesions noted and no wounds MDM MDM MDM Narrative Medical decision making narrative: Labs obtained including lactate which is within normal limits. He is a little prerenal. He took several hours to get outpatient testing from , we had to call [employer] in order to get these records which shows urine culture with ESBL E. coli greater than 100,000 CFU per mL. It shows sensitivities to imipenem, meropenem, Zosyn, and Bactrim. Although there is an oral antibiotic on this list, the daughter asks that we still admit him because he is extremely weak and has been progressively getting worse. Discussed with hospitalist. At this time he is not septic and stable for medical surgical floor. I did send blood cultures. In addition I did a two-view chest x-ray which is negative for pneumonia mitral rotation, radiology in agreement. History & Record Review Additional record(s) reviewed:: Prior labs Lab Data Attestation: I reviewed the patient's lab results. Labs: Laboratory Results - last 24 hr 05/25/25 17:00 WBC 8.2 RBC 3.76 L Hgb 11.1 L Hct 33.6 L MCV 89.4 MCH 29.5 MCHC 33.0 RDW Std Deviation 45.0 H RDW Coeff of Arleen 13.8 Plt Count 180 MPV 11.8 Immature Gran % (Auto) 0.400 Neut % (Auto) 59.5 Lymph % (Auto) 25.2 Pierce % (Auto) 12.5 H Eos % (Auto) 1.9 Baso % (Auto) 0.5 Absolute Neuts (auto) 4.9 Absolute Lymphs (auto) 2.07 Nucleated RBC % 0 PT 14.2 INR 1.1 APTT 27.9 Sodium 135 Potassium 4.7 Chloride 100 Carbon Dioxide 20.2 L Anion Gap 14 BUN 22 H Creatinine 1.07 Estim Creat Clear Calc 33.39 L Est GFR (MDRD) Non-Af 66 BUN/Creatinine Ratio 20.5 H Glucose 109 H Lactic Acid 1.2 Calcium 9.2 Total Bilirubin 0.85 AST 31 ALT 15 Alkaline Phosphatase 49 Total Protein 7.4 Albumin 3.8 Globulin 3.6 Albumin/Globulin Ratio 1.1 Radiography Diagnostic Testing: Clinical Impression(s) from Imaging Studies Chest X-Ray 05/25/25 17:35 IMPRESSION: NO ACUTE FINDINGS. Reading Location: [facility] Rhythm Strip Rhythm Strip: Sinus Rhythm Rate: 70 Ectopy: None EKG Initial EKG: Attestation: I personally reviewed and interpreted this EKG as follows: Interpretation: Sinus Rhythm and No Acute Injury Pattern Comments: Nml intervals, axis borderline left, otherwise nml EKG Management Discussion w/another healthcare provider: Hospitalist Discharge Plan Dx/Rx/DC Orders Clinical Impression: UTI due to extended-spectrum beta lactamase (ESBL) producing Escherichia coli, Debility, Failure of outpatient treatment, Acute cough Disposition Disposition: [facility]
[2025-05-25] MEDS: 0.9% Normal Saline (500mL Bag) 500 ML 999 ML IV (17:10)
--- NOTE | 2025-05-25 17:35 | RAD_ITS ---
PROCEDURE: CHEST PA AND LATERAL 05/25/2025 REASON FOR EXAM: SOB, COUGH, WEAKNESS TECHNIQUE: CHEST PA AND LATERAL FINDINGS: Left chest AICD. The heart is enlarged. The lungs are clear. No pleural effusion or pneumothorax. No acute osseous abnormalities. RAD/Chest PA and Lateral IMPRESSION: NO ACUTE FINDINGS. Reading Location: [id number]
[2025-05-25 17:39] LABS: Hematocrit 33.6 % (40-54); Hemoglobin 11.1 g/dL (13.0-16.5); Immature Granulocytes Count 0.030 X10^3/uL (0.0-0.0); Mean Corp Hgb Conc 33.0 g/dL (32-36); Mean Corpuscular Volume 89.4 fL (80-94); Mean Platelet Vol. 11.8 fl (6.2-12.0); NRBC Flagged by Analyzer 0 % (0-5); Platelet Count 180 K/mm3 (150-450); RBC Distribution Width CV 13.8 % (11.6-14.6); RBC Distribution Width SD 45.0 fl (35.1-43.9); Red Blood Count 3.76 M/mm3 (4.6-6.2); White Blood Count 8.2 K/mm3 (4.4-11.0)
[2025-05-25 17:42] LABS: Prothrombin Time (Protime)PT. 14.2 SECONDS (11.7-14.9)
[2025-05-25 17:43] LABS: Partial Thromboplast Time 27.9 Seconds (24.1-36.2)
[2025-05-25 17:52] LABS: AST(SGOT) 31 U/L (<=37); Alanine Aminotransfer ALT/SGPT 15 U/L (<=46); Albumin, Serum 3.8 g/dL (3.4-4.8); Alkaline Phosphatase 49 U/L (40-129); Anion Gap 14 (5-15); BUN 22 mg/dL (4-19); BUN/Creat Ratio 20.5 RATIO (10-20); Calcium,Total 9.2 mg/dL (7.6-11.0); Carbon Dioxide 20.2 mmol/L (21.0-32.0); Chloride 100 mmol/L (98-108); Estimated Creatinine Clearance 33.39 ml/min (50-250); Globulin 3.6 g/dL (2.2-4.2); Glucose 109 mg/dL (70-99); Potassium 4.7 mmol/L (3.3-5.1)
--- NOTE | 2025-05-25 18:20 | ED.RN ---
Catheter leg bag replaced prior to obtaining urine sample.
[2025-05-25 18:29] LABS: Mucous, Urine 0 SEEN /hpf (<or=2+)
[2025-05-25] MEDS: Piperacil/Tazobactam 3.375 GM in 0.9% Normal Saline (50mL MB+) 50 ML IV (20:05)
--- NOTE | 2025-05-25 20:08 | PCM.HP.STD ---
[facility] - General General Date of Service: 05/25/25 Chief Complaint: Multidrug-resistant UTI. Lethargy. [facility] Narrative JORGE GUZMÁN, is a 89 M who presents due to abnormal urine culture. Patient was admitted at [place] from the with a UTI. He left AGAINST MEDICAL ADVICE before the culture results were available. Patient was discharged with cephalexin. Urine culture came back positive for non-ESBL E. coli, Pseudomonas and Enterococcus. The Enterococcus was low CFU's of 1000 and 10,000. He had an outpatient urine culture through [facility] that grew out ESBL E. coli sensitive only to imipenem, meropenem, piperacillin/tazobactam and Bactrim. Patient was notified of this and instructed to come to the emergency room. In emergency room, patient did receive pip-tazo based on the prior culture results. Patient does since going home has not very well and he is just getting weaker, potential going days without eating. Is also been having some loose stools. Patient was seen with his daughter at bedside. 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 General weakness Otitis media Elevated troponin Orchitis of right testicle Sepsis Implantable cardioverter-defibrillator (ICD) at end of battery life Essential hypertension Family history of CVA Family history of hypertension FH: sudden cardiac (SCD) History of placement of internal cardiac defibrillator HTN (hypertension) Old myocardial infarction Angina pectoris Cardiomyopathy, ischemic Chronic systolic congestive heart failure HLD (hyperlipidemia) Abnormal result of cardiovascular function study, unspecified High risk medication use Iron deficiency anemia Chest pain, precordial Atherosclerotic heart disease of [place] coronary artery without angina pectoris Dyspnea Fatigue Hypokalemia Benign prostatic hypertrophy SBO (small bowel obstruction) Home Medications ?Medication ?Instructions ?Recorded ?Last Taken ?Type aspirin 81 mg tablet,delayed 81 mg PO DAILY 05/23/24 05/25/25 History release (Adult Low Dose Aspirin) nitroglycerin 0.4 mg sublingual 0.4 mg sublingual Q5M PRN Chest 05/23/24 Unknown Rx tablet Pain #25 tabs tamsulosin 0.4 mg capsule 0.4 mg PO QDAY 05/23/24 05/25/25 History simvastatin 20 mg tablet 20 mg PO QHS for cholesterol #90 08/23/24 05/24/25 Rx TABLETS carvedilol 6.25 mg tablet 6.25 mg PO BID #60 tabs 11/10/24 05/25/25 Rx prednisone 5 mg tablet 2 mg PO QDAY 11/10/24 05/25/25 History sacubitril 24 mg-valsartan 26 mg 1 tab PO BID #60 tabs 03/14/25 05/25/25 Rx tablet (Entresto) cephalexin 500 mg capsule 500 mg PO Q6 #28 CAPSULES 04/27/25 05/25/25 Rx diphenhydramine 25 2 tab PO QHS 04/28/25 05/24/25 History mg-acetaminophen 500 mg tablet (Tylenol PM Extra Strength) melatonin 10 mg tablet 20 mg PO QHS sleep 04/28/25 05/24/25 History oxybutynin chloride 5 mg tablet 5 mg PO DAILY 04/28/25 05/25/25 History prednisone 1 mg tablet 2 mg PO DAILY 05/25/25 05/25/25 History Allergy/AdvReac Type Severity Reaction Status Date / Time morphine Allergy Intermediate Rash Verified 05/25/25 15:53 zolpidem tartrate (From AdvReac Intermediate CONFUSION Verified 05/25/25 15:53 Ambien) Family History Mother CAD (coronary artery disease) CVA (cerebral vascular accident) Myocardial infarction, Onset Age: 67 Hypertension Brother CAD (coronary artery disease) Hypertension Cancer Lung CA Myocardial infarction, Onset Age: 73 Father Myocardial infarction, Onset Age: 77 Daughter Cancer Son Myocardial infarction, Onset Age: 46 Other Cardiomyopathy, ischemic Chronic systolic congestive heart failure Fatigue General weakness Iron deficiency anemia Surgical History H/O dilation of urethra Hx of transurethral resection of prostate Presence of coronary artery bypass graft stent (~12/28/18) History of cardiac catheterization Hx of colonoscopy Hx of surgical procedure History of hernia repair History of prostate surgery History of left heart catheterization Social History household members: spouse Smoking Status: Never smoker alcohol intake: never substance use type: does not use caffeine: Yes Type: carbonated beverages and coffee Number of servings: 1 what type of physical activity do you participate in: none seatbelt use: always do you feel safe at home: Yes MANFRED Raphael Complains of pain in his right ear canal. No fever or chills but chronically cold. All review of systems were negative except as mentioned above in the history of present illness and the other review of systems. Vital Signs Vital Signs Vital Signs: 05/25/25 15:51 05/25/25 16:51 05/25/25 17:00 Temperature 37.2 C Temperature Source Oral Pulse Rate 81 66 62 Respiratory Rate 18 15 Blood Pressure 124/75 H 111/53 L 108/72 Blood Pressure Mean 91 72 84 Pulse Ox 98 100 98 Oxygen Delivery Method Room Air Room Air Room Air 05/25/25 17:15 05/25/25 17:17 05/25/25 18:00 Temperature 37.2 C 36.8 C Temperature Source Oral Oral Pulse Rate 67 68 Respiratory Rate 15 16 Blood Pressure 111/53 L 123/53 H Blood Pressure Mean 72 76 Pulse Ox 97 97 Oxygen Delivery Method Room Air Room Air Room Air 05/25/25 18:00 05/25/25 18:59 05/25/25 19:00 Temperature 36.8 C Temperature Source Oral Pulse Rate 68 Respiratory Rate 16 Blood Pressure 123/53 H 119/56 L 119/56 L Blood Pressure Mean 76 77 77 Pulse Ox 99 Oxygen Delivery Method Room Air 05/25/25 19:38 Temperature 37.1 C Temperature Source Pulse Rate 70 Respiratory Rate 16 Blood Pressure 113/57 L Blood Pressure Mean 75 Pulse Ox 100 Oxygen Delivery Method Weight Weight: 50.434 kg Body Mass Index (BMI) 19.7 Physical Exam Narrative - Physical Exam General: Alert, Oriented x3, Cooperative HEENT: Atraumatic, PERRLA, EOMI, Normocephalic. Visualize his right ear canal and there was no evidence of any erythema nor any vesicles to suggest zoster. Tympanic membrane was without effusion or erythema. Oral: Moist Mucosa, No Gingival or Mucosal Lesions/ Ulcerations Neck: Supple, No JVD Lungs: Clear to auscultation, Normal air movement Cardiovascular: Regular rate, Normal S1, Normal S2, No murmurs Abdomen: Bowel Sounds Present, Soft, Non Tender, Non-Distended, No Hepato-splenomegaly Extremities: No clubbing, No cyanosis, No edema, Capillary Refill Less than 3 Seconds Skin: No rashes, No breakdown Musculoskeletal: No Tenderness to Palpation of Joints or Extremities Neurological: Neuro grossly intact. Moves all extremities spontaneously. Was not able to push himself up in bed on his own. Psych/Mental Status: Normal Affect, Appropriate Results Lab / Micro Data Attestation: I reviewed the patient's lab results. 05/25/25 17:00 05/25/25 17:00 Labs: Laboratory Results - last 24 hr 05/25/25 17:00: WBC 8.2, RBC 3.76 L, Hgb 11.1 L, Hct 33.6 L, MCV 89.4, MCH 29.5, MCHC 33.0, RDW Std Deviation 45.0 H, RDW Coeff of Arleen 13.8, Plt Count 180, MPV 11.8, Immature Gran % (Auto) 0.400, Neut % (Auto) 59.5, Lymph % (Auto) 25.2, Baxter % (Auto) 12.5 H, Eos % (Auto) 1.9, Baso % (Auto) 0.5, Absolute Neuts (auto) 4.9, Absolute Lymphs (auto) 2.07, Nucleated RBC % 0, PT 14.2, INR 1.1, APTT 27.9, Sodium 135, Potassium 4.7, Chloride 100, Carbon Dioxide 20.2 L, Anion Gap 14, BUN 22 H, Creatinine 1.07, Estim Creat Clear Calc 33.39 L, Est GFR (MDRD) Non-Af 66, BUN/Creatinine Ratio 20.5 H, Glucose 109 H, Lactic Acid 1.2, Calcium 9.2, Total Bilirubin 0.85, AST 31, ALT 15, Alkaline Phosphatase 49, Total Protein 7.4, Albumin 3.8, Globulin 3.6, Albumin/Globulin Ratio 1.1 Rhythm Strip Rhythm Strip: Sinus Rhythm Rate: 70 Ectopy: None Imaging Radiology Impression Chest X-Ray 05/25/25 17:35 IMPRESSION: NO ACUTE FINDINGS. Reading Location: [id number] Assessment & Plan Assessment/Plan (1) Catheter-associated urinary tract infection: PLAN: ESBL E. coli from urine culture on the at outside hospital that was showing sensitivity to imipenem, meropenem, pip-tazo and Bactrim. Would recommend continuing with IV antibiotics with pip-tazo for now. Will repeat urine culture which was not done before he received the IV antibiotics. Change Rod catheter. Patient has a chronic indwelling catheter due to history of prostate cancer. Previously had a suprapubic catheter about a year ago but it fell out spontaneously and that site healed up on its own before his realize that the catheter was out. So he said he has had a normal Rod catheter since then. (2) Debility: PLAN: Due to UTI poor nutritional intake. PT OT evaluate and treat. Patient currently at the [facility]. Will determine if patient would require a higher level of therapy upon discharge. (3) Protein calorie malnutrition: PLAN: Regular diet. Pat supplements. Nutrition to assist in with recommendations. I discussed with the patient that important for him to have increased calorie consumption to help with his healing, strength and overall wellbeing. PLAN: Plan Right ear pain: Direct visualization did not reveal any kind of otitis media, otitis externa. No vesicles to suggest any kind of [place] Bull type situation with the daughter states that his hearing has changed recently. Did advise him if they are seeing any type of vesicular lesions, to notify us right away but I would not start any treatment for shingles at this time because I clearly do not see any at this time. May be possible related with how he sleeps as patient seems to sleep on his right side. Recommend that he sleep on his back or on his left side. Chronic medical conditions CAD: Stable continue with aspirin VTE prophylaxis with enoxaparin CODE STATUS of previous: DNR Comfort Care arrest with intubation. Discussed with the patient's daughter at bedside. Charges/Coding Visit Charges Inpatient E&M: 43577 Init Hosp L3
--- OUTSIDE RECORDS SUMMARY | 2025-05-25 20:41 | XMS RPT_ITS | CCD ---
Author Organization [facility] Care Team Providers Care Editor News Name Role Phone TERESITA Grubbs, Elsy Denis Unavailable Unavailable TERESITA Grubbs, Elsy Denis Unavailable Unavailable Yaritza Gibson Primary Care Provider Pcp, No Primary Care Provider UnavailMerrill Desouza Primary Care Provider John Cleveland Primary Care Provider TERESITA Grubbs, Elsy Denis Unavailable Unavailable TERESITA Grubbs, Elsy Denis Unavailable Unavailable TERESITA Grubbs, Elsy Denis Unavailable Unavailable Viveros, Leonora Adeel Unavailable Unavailable Felice, Leonora M Unavailable Unavailable Maureen Forman Unavailable Unavailable Maureen Forman Unavailable Unavailable Malika LO, Abril Palomo Unavailable Robbi Abbott MD Unavailable Malika LO, Abril Palomo Unavailable TERESITA Grubbs, Elsy M Unavailable Unavailable TERESITA Grubbs, Elsy Denis Unavailable Unavailable TERESITA Grubbs, Elsy Denis Unavailable Unavailable TERESITA Thomas Phyllis M Unavailable UnavailShailesh Gillette Primary Care Provider UnavailDr. Robbi Taylor Attending Provider [phone] Dr. Robbi Abbott Referring Provider [phone] Shailesh Mancini Referring Provider Unavailable Jarad EPPS, MORTEZA Galloway Attending Provider Shailesh Mancini Primary Care Provider UnavailDr. Robbi Taylor Attending Provider [phone] Dr. Shailesh Mancini Primary Care Provider Dr. Robbi Abbott Attending Provider Dr. Robbi Abbott Referring Provider Shailesh Mancini Referring Provider Unavailable Dr. Shailesh Mancini Primary Care Provider Dr. Shailesh Mancini Referring Provider Sloane Grubbs Attending Provider Unavailable Dr. John Noel Primary Care Provider Abril Daly Attending Provider Unavailable Dr. Timoteo Mullins Attending Provider Dr. Timoteo Mullins Referring Provider Dr. John Noel Referring Provider Dr. Ana Paula Harrington Attending Provider Dr. John Noel Primary Care Provider Dr. John Noel Referring Provider Alexia Hendricks Attending Provider Unavailable Dr. John Noel Primary Care Provider Dr. John Noel Referring Provider Alexia Hendricks Attending Provider Unavailable MD Murray Morgan Emergency Provider Dr. Manisha Varela Admit Provider Dr. Manisha Varela Other Provider Dr. Natanael Nowak Attending Provider Dr. Natanael Nowak Other Provider Dr. Manisha Varela Attending Provider Dr. John Noel Primary Care Provider Dr. Timoteo Mullins Attending Provider Dr. Nika Gan Attending Provider Dr. Zacarias Valdes Referring Provider Dr. Timoteo Mullins Referring Provider Dr. John Noel Referring Provider Andrés EPPS, EMPLOYEE BENEFITS COORDINATOR-C Cynthia Attending Provider ASMITA ZAMBRANO W Referring Unavailable JOHN NOEL A Primary Care Unavailable ASMITA ZAMBRANO W Admitting Unavailable ASMITA ZAMBRANO W Attending Unavailable JOHN NOEL A Primary Care Unavailable Sadie MARCUS, John A Primary Care Provider Dr. John Noel DO Primary Care Provider Dr. John Noel DO Referring Provider Dr. Timoteo Mullins MD Attending Provider Dr. Timoteo Mullins MD Referring Provider Dr. John Noel DO Attending Provider Dr. Timoteo Mckenna DO Attending Provider Clarisa MARCUS, Dr. Mahmood Emergency Provider Dr. John Noel DO Primary Care Provider Dr. John Noel DO Attending Provider Sadie MARCUS, Dr. Stewart Referring Provider Andrés EMPLOYEE BENEFITS COORDINATOR-C, Cynthia Attending Provider CHERYL SUTHERLAND Attending Provider Dr. Timoteo Mckenna DO Emergency Provider [phone] Phil PASCUAL, Dr. Whiting Emergency Provider Dr. Manisha Varela MD Admit Provider Dr. Manisha Varela MD Attending Provider Dr. Henok Villarreal MD Emergency Provider Dr. Manisha Varela MD Admit Provider Dr. Manisha Varela MD Other Provider Dr. Cheryl Ochoa DO Attending Provider Dr. Cheryl Ochoa DO Other Provider Dr. Timoteo Mullins MD Attending Provider Dr. Timoteo Mckenna DO Attending Provider Dr. Timoteo Mullins MD Referring Provider [phone] Sadie, John Primary Care Unavailable DAYNE MELISSA Attending Unavailable Sadie, John Referring Unavailable Sadie, John Attending Unavailable Sadie, John Primary Care Unavailable Sadie, John Referring Unavailable Sadie, John Primary Care Unavailable Cynthia Bowne NP Attending Unavailable Sadie, John Primary Care Unavailable Sadie, John Referring Unavailable Sadie, John Attending Unavailable Manisha Varela Admitting Unavailable Sadie, John Primary Care Unavailable Manisha Varela Consulting Unavailable Cheryl Ochoa Attending Unavailable Sadie, John Primary Care Unavailable Asmita Zambrano, II Referring Unavailable Asmita Zambrano, II Attending Unavailable Sadie, John Referring Unavailable Sadie, John Primary Care Unavailable Sadie, John Attending Unavailable Sadie, John Referring Unavailable Sadie, John Primary Care Unavailable Sadie, John Attending Unavailable Sadie, John Primary Care Unavailable Susanna, Timoteo Referring Unavailable Susanna, Timoteo Attending Unavailable Susanna, [place] Referring Unavailable Susanna, Timoteo Attending Unavailable Sadie, John Primary Care Unavailable Sadie, John Primary Care Unavailable Sadie, John Attending Unavailable Sadie, John Primary Care Unavailable Sadie, John Attending Unavailable Sadie, John Referring Unavailable Asmita Abraham NP Attending Unavailable Sadie, John Primary Care Unavailable Sadie, John Primary Care Unavailable Susanna, [place] Referring Unavailable Susanna, Timoteo Attending Unavailable Sadie, John Referring Unavailable Sadie, John Primary Care Unavailable Susanna, Timoteo Attending Unavailable Manisha Varela Consulting Unavailable Manisha Vraela Admitting Unavailable Sadie, John Primary Care Unavailable Cheryl Ochoa Attending Unavailable Cheryl Ochoa Consulting Unavailable Manisha Varela Attending Unavailable Sadie, John Primary Care Unavailable Susanna, Timoteo Attending Unavailable Susanna, Timoteo Referring Unavailable Sadie, John Primary Care Unavailable Sadie, John Referring Unavailable Sadie, John Attending Unavailable Sadie, John Primary Care Unavailable Ungur, Remus Attending Unavailable Sadie, John Primary Care Unavailable Ungur, Remus Attending Unavailable SADIE, JOHN A Primary Care Unavailable ZAMBRANOASMITA Alatorre Attending Unavailable SADIE, JOHN A Primary Care Unavailable SADIE, JOHN A Primary Care Unavailable ZAMBRANOASMITA Alatorre Attending Unavailable SADIE, JOHN A Primary Care Unavailable ASMITA ZAMBRANO Attending Unavailable SADIE, JOHN A Primary Care [...] Unavailable SADIE, JOHN A Primary Care Unavailable Allergies Allergy Classification Reported Allergen(s) Allergy Type Date of Onset Reaction(s) Facility Opioid Agonists (1 source) Morphine Drug Allergy 3 [facility] (20 sources) Morphine; Translations: [MORPHINE] Drug Allergy 3 Rash [facility] (20 sources) zolpidem; Translations: [zolpidem tartrate] Drug Allergy 1 CONFUSION [facility] (15 sources) zolpidem; Translations: [ZOLPIDEM] Drug Allergy 9 Hallucinations, Unknown Hospitals 2 Repository (1 source) Morphine Drug Allergy 5 [facility] Repository Medications Current Medications Medication Drug Class(es) Dates Sig (Normalized) Sig (Original) acetaminophen 500 mg / diphenhydrAMINE hydrochloride 25 mg oral tablet (20 sources) Histamine-1 Receptor Antagonist Start: 04-28-2025 Diphenhydramine-A cetaminophen (Tylenol Pm Extra Strength) 25-500 mg tablet Active 2 {tbl} PO AT BEDTIME April 28, 2025 12:00am Start: 10-22-2017 End: 09-06-2023 Diphenhydramine-Acetaminophe n (Tylenol Pm Extra Strength) 25-500 mg tablet Discontinued 2 {tbl} PO AT BEDTIME as needed for Insomnia October 22, 2017 1:00am September 06, 2023 4:07pm Start: 05-24-2017 take 1 tablet by mayda once daily in the evening TYLENOL PM EXTRA STRENGTH 500-25 MG TABS One tablet by mouth daily DIPHENHYDRAMINE-APAP (SLEEP) [id number] Robbi Abbott MD aspirin 81 mg delayed release oral tablet (20 sources) Platelet Aggregation Inhibitor, Nonsteroidal Anti-inflammatory Drug Start: 05-23-2024 Aspirin (Adult Lo w Dose Aspirin) 81 mg tablet,delayed release (DR/EC) [...] TBEC One tablet by mouth daily ASPIRIN [id number] Abril Daly RN Start: 06-19-2005 take 1 tablet by mayda th once daily ASPIRIN 81 MG TABS One tablet by mouth daily ASPIRIN [id number] Leonora Viveros Comment on above: Take one [...] 3.125 mg PO TWICE A DAY 180 3 August 01, 2024 10:12am November 10, 2024 [...] 1/2 tablet by mouth twice daily CARVEDILOL [id number] Robbi Abbott MD Start: 05-20-2012 take 1 tablet by mayda th twice daily COREG 25 MG TABS One tablet by mouth twice daily CARVEDILOL [id number] Robbi Abbott MD Start: 08-04-2010 End: 04-17-2019 [...] antibiotic 2 ml dupilumab 150 mg/ml auto-injector (7 sources) Interleukin-4 Receptor alpha Antagonist Start: 05-23-2024 Dupilumab 300 mg/2 mL pen injector Active 300 mg SC every 2 weeks May 23, 2024 12:00am HYDROmorphone (3 sources) Opioid Agonist Start: 07-25-2024 [...] Levofloxacin Active 750 MG PO Q48H 3 7 September 06, 2023 12:00am Took 11/6 dose in hospital. Next dose /8 melatonin 10 mg oral tablet (4 sources) Start: 04-28-2025 take 2 tablets by mouth at bedtime Melatonin 10 mg tablet Active 20 mg PO AT BEDTIME April 28, 2025 12:00am sleep nitrofurantoin, macrocrystals 100 mg oral capsule (1 [...] pain. If no pain relief call 911. oxybutynin chloride 5 mg oral tablet (16 sources) Cholinergic Muscarinic Antagonist Start: 12-06-2024 End: 06-04-2025 take 1 tablet by mouth three times daily Oxybutynin Chloride 5 mg tablet Active 5 mg PO THREE TIMES A DAY April 28, 2025 12:00am Start: 11-10-2024 End: 04-28-2025 take 1 tablet by mouth once daily Oxybutynin Chloride 5 mg tablet extended release 24hr Discontinued 5 mg PO daily November 10, 2024 1:00am April 28, 2025 10:19pm oxygen (O2) therapy (1 source) Start: 07-25-2024 inhalation, Co ntinuous PRN - O2/gases, other, Starting on Wed07/25/24 at 1138, Recovery (only), Device: Nasal Cannula, Rate in liters per minute: Other, Custom Value: 1-6 LPM, Keep O2 Sat Above: 92% phenazopyridine hydrochloride 200 mg oral tablet (13 sources) Start: 04-27-2025 take 1 tablet by mouth three times daily Phenazopyridine (Pyridium) 200 mg tablet Active 200 mg PO THREE TIMES A DAY 5 0 April 27, 2025 12:00am Start: 07-25-2024 take 1 tablet by mayda th three times daily as needed for muscle spasms phenazopyridine (Pyridium) 200 mg tablet Indications: Urinary retention Take 1 tablet (200 mg) by mouth 3 times a day as needed for bladder spasms. 30 tablet 07/25/2024 Active polyethylene glycol 3350 89851 mg powder for oral solution (13 sources) Osmotic Laxative Start: 03-29-2024 polyethylene glycol (Glycolax, Miralax) 17 gram packet take 1 packet (17 GMS) twice a day if needed for constipation for 5 days 03/29/2024 Active predniSONE 5 mg oral tablet (7 sources) Start: 11-10-2024 take 1 tablet by [...] above: TAKE ONE TAB AT BEDT [place] amoxicillin 875 mg / clavulanate 125 mg oral tablet (19 sources) Penicillin-class Antibacterial Start: 12-27-2022 End: 02-25-2023 Amoxicillin-Pot Clavulanate 875-125 mg tablet Discontinued 1 {tbl} PO TWICE A DAY 20 December 27, 2022 1:00am February 25, 2023 [...] mg tablet Discontinued 75 mg PO DAILY 90 March 04, 2023 9:24am April 06, 2024 1:38pm prevent clotting Comment on above: Take one(1) tablet d aily. diazePAM 2 mg oral tablet (7 sources) Benzodiazepine Start: 03-25-2024 End: 05-23-2024 take 1 tablet by mouth twice daily as needed for anxiety Diazepam (Valium) 2 mg tablet Discontinued 2 mg PO TWICE A DAY as needed for anxiety 10 March 25, 2024 12:00am May 23, 2024 2:25pm Vertigo Dizziness and giddiness DUPIXANT (10 sources) Start: 10-11-2023 End: 05-23-2024 DUPIXANT Discontinued [...] tablet Discontinued 40 mg PO DAILY 30 10March 06, 2022 4:16pm August 05, 2022 2:38pm [...] 05, 2016 12:00am October 22, 2017 4:00pm gabapentin 100 mg oral capsule (7 sources) Anti-epileptic Agent Start: 11-10-2024 End: 04-28-2025 take 1 capsule by mouth once daily as needed Gabapentin 100 mg capsule Discontinued 100 mg PO daily as needed November 10, 2024 1:00am April 28, 2025 5:13pm iohexol (OMNIPaque) 350 mg iodine/mL solution 73 [...] Discontinued 30 mg PO EVERY MORNING 90 3 March 08, 2019 10:15am April 17, 2020 10:37am On Hold: low BP Start: 05-18-2011 take 1 tablet by mayda th every twenty-four hours ISOSORBIDE MONONITRATE ER 30 mg ORAL 24 hr tablet Start: 06-20-2010 End: 10-09-2016 take 1 tablet by mouth once daily ISOSORBIDE MONONITRA TE ER 30 MG [id number] One tablet by mouth daily (Imdur) STOP ISOSORBIDE MONONITRATE [id number] Abril Dupree PA-C isosorbide dinitrate 30 mg [...] One tablet by mouth twice daily LISINOPRIL [id number] Robbi Abbott MD Start: 03-06-2009 End: 07-17-2013 take 1 tablet by mouth once daily LISINOPRIL 10 MG TABS One tablet by mouth daily LISINOPRIL [id number] Robbi Abbott MD Comment on above: Take one(1) tablet d viviana. losartan potassium 25 mg oral tablet (20 sources) Angiotensin 2 Receptor Mona Start: 8 End: 9 take 1 tablet by mouth once daily Losartan 25 mg tablet Discontinued 25 mg PO daily 3 October 03, 2018 3:27pm November 02, [...] / nitrofurantoin, monohydrate 75 mg oral capsule (20 sources) Nitrofuran Antibacterial Start: 12-23-2018 End: 12-28-2018 take 1 capsule by mouth twice daily at mealtime Nitrofurantoin Monohyd/M-Cryst (Macrobid) 100 mg capsule Discontinued 100 mg PO TWICE A DAY 10 5 0 December 23, 2018 1:00am December 27, 2018 1:00am December 28, 2018 1:07am must administer with a meal/food ondansetron 4 mg disintegrating oral tablet (20 sources) Serotonin-3 Receptor Antagonist Start: 04-27-2025 End: 04-28-2025 take 1 tablet by mouth every six hours as needed for nausea and vomiting Ondansetron 4 mg tablet,disintegrati ng Discontinued 4 mg PO EVERY 6 HOURS as needed for nausea and vomiting 10 0 April 27, 2025 12:00am April 28, 2025 5:13pm Start: 12-16-2024 take 1 tablet by mayda every eight hours as needed for nausea Ondansetron 4 mg tablet,disintegrating Active 4 mg PO EVERY 8 HOURS NEEDED as needed for Nausea 10 0 December 16, 2024 1:00am Start: 07-25-2024 End: [...] HOURS NEEDED as needed for Nausea 10 0 March 25, 2024 12:00am May 23, 2024 2:25pm OTC NUTRITIONAL SUPPLEMENT (1 source) Start: 07-22-2011 End: 03-17-2012 OTC NUTRITIONAL SUPPLEMENT digestive enzyne 0 07/22/2011 03/17/2012 Discontinued (Discontinued by Patient) Comment on above: digestive enzyne oxyCODONE hydrochloride 5 mg oral tablet (7 sources) Opioid Agonist Start: 03-22-2024 End: 05-23-2024 [...] One tablet by mouth daily PANTOPRAZOLE SODIUM [id number] Rain Segovia NP Start: 06-04-2011 End: 10-23-2011 [...] release Discontinued 20 meq PO .COMPLEX 30 12 November 06, 2020 5:34pm January 29, 2021 [...] tablet Discontinued 10 meq PO DAILY 90 3 December 03, 2017 6:19pm May 24, 2018 2:33pm Start: 11-15-2014 End: 12-03-2017 take 1 tablet by mouth once daily Potassium Chloride 10 MEQ tablet Discontinued 10 meq PO DAILY April 15, 2016 12:00am December 03, 2017 6:20pm Start: 08-04-2010 End: 05-02-2012 take 2 tablets by mouth once daily POTASSIUM CHLORIDE ER 10 MEQ CR-TABS (SR) Two tablets by mouth daily POTASSIUM CHLORIDE [id number] Leonora Viveros 12 hr ranolazine 500 mg extended release oral tablet (20 sources) Anti-anginal Start: 12-21-2014 take 1 tablet by mouth twice daily RANEXA 500 MG [id number] One tablet by mouth twice daily RANOLAZINE [id number] Kasia Nieto RN Start: 08-04-2010 End: 05-02-2012 take 1 tablet by mouth twice daily RANEXA 500 MG [id number] One tablet by mouth twice daily RANOLAZINE [id number] Kasia Nieto RN simvastatin 20 mg oral [...] Problem Date Documented Date Episodic/Chronic Abdominal pain (20 sources) Left lower quadrant pain; Translations: [Left lower quadrant pain] Onset: 5 12-27-2022 Episodic Acute and unspecified renal failure (20 sources) Acute renal failure syndrome; Translations: [Acute kidney failure, unspecified] 09-04-2023 Episodic Acute myocardial infarction (20 sources) ST elevation (STEMI) myocardial infarction involving other coronary artery of anterior wall; Translations: [Acute myocardial infarction of other anterior wall, subsequent episode of care] Onset: 1 Resolved: 6 01-13-2011 Chronic Cancer of prostate (17 sources) Malignant neoplasm of prostate; Translations: [Malignant tumor of prostate] Onset: 4 Chronic Conditions associated with dizziness or vertigo (20 sources) Dizziness; Translations: [Dizziness and giddiness] 06-03-2022 [...] FFR of RCA negative per [facility]N @ [facility] Deficiency and other anemia (20 sources) Iron deficiency anemia; Translations: [Iron deficiency anemia, unspecified] Onset: 1 01-13-2011 Episodic Deficiency and other anemia (10 sources) Anemia; Translations: [Anemia, unspecified] 04-28-2025 Episodic Diseases of white blood cells (20 sources) White blood cell disorder; 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, unspecified] Onset: 9 03-06-2009 Chronic Disorders of lipid metabolism (20 sources) Hyperlipidemia; Translations: [Hyperlipidemia, unspecified] Onset: 1 01-13-2011 Chronic Diverticulosis and diverticulitis (20 sources) Diverticulitis of large intestine; Translations: [Diverticulitis [...] Chronic Inflammatory conditions of male genital organs (20 sources) Orchitis; Translations: [Orchitis] 01-31-2019 Episodic Intestinal obstruction without hernia (20 sources) Small bowel obstruction; Translations: [Unspecified intestinal obstruction, unspecified as to partial versus complete obstruction] 01-31-2019 Episodic Nausea and vomiting (20 sources) Nausea and vomiting; Translations: [Nausea with vomiting, unspecified] Onset: 5 04-02-2024 Episodic Nonspecific chest pain (20 sources) Precordial pain; Translations: [Precordial pain] Onset: 1 01-13-2011 Episodic Open wounds of extremities (20 sources) Absent fingertips; 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, initial encounter] 01-27-2020 Chronic Other aftercare (20 sources) Drug therapy finding; Translations: [Other intermodal dispatcher (current) drug therapy] 01-31-2019 Episodic Other aftercare (9 sources) Patient encounter status; Translations: [Encounter for therapeutic drug level monitoring] 07-09-2023 Episodic Other aftercare (7 sources) Long-term current use of diuretic; Translations: [Encounter for therapeutic drug level monitoring] 07-09-2023 Episodic Other circulatory disease (18 sources) History of cardiomyopathy; Translations: [Personal history of other diseases of the circulatory system] 01-14-2023 Episodic Other circulatory disease (10 sources) H/O: heart disorder; Translations: [Personal history of other diseases of the circulatory system] 04-28-2025 Episodic Other connective tissue disease (1 source) [...] of intestine] 03-07-2013 Episodic Other gastrointestinal disorders (18 sources) Antibiotic-associated diarrhea; Translations: [Toxic gastroenteritis and colitis] 01-14-2023 Episodic Other gastrointestinal disorders (7 sources) Constipation; Translations: [Constipation, unspecified] 04-07-2024 Episodic Other gastrointestinal disorders (6 sources) Diarrhea; Translations: [Diarrhea, unspecified] 04-27-2025 Episodic Other [...] respiratory abnormalities] Episodic Other male genital disorders (7 sources) H/O: male genital disorder; Translations: [Personal history of other diseases of male genital organs] 04-07-2024 Episodic Other nervous system disorders (14 sources) Metabolic encephalopathy; Translations: [Metabolic encephalopathy] 09-04-2023 Chronic Other nervous system disorders (7 sources) Metabolic encephalopathy; Translations: [Metabolic encephalopathy] 09-04-2023 Chronic Otitis media and related conditions (20 sources) Otitis media; Translations: [Otitis media, unspecified, unspecified ear] 01-31-2019 Episodic Peripheral and visceral atherosclerosis (20 sources) Peripheral vascular disease, unspecified; Translations: [Peripheral arterial disease] 11-11-2020 Chronic Comment on above: small vessel diease Residual codes; unclassified (20 sources) FH: Hypertension; Translations: [Family history of ischemic heart disease and other diseases of the circulatory system] 09-03-2014 Episodic Residual codes; unclassified (20 sources) Family history of stroke; Translations: [Family history of stroke] 09-03-2014 Episodic Residual codes; unclassified (20 sources) Family history of sudden cardiac ; Translations: [Family history of sudden cardiac ] 01-31-2019 Episodic Residual codes; unclassified (10 sources) Other specified health status; Translations: [Failure of outpatient treatment] 04-28-2025 Episodic Septicemia (except in labor) (20 sources) Sepsis; Translations: [Sepsis, unspecified organism] 01-31-2019 Episodic Superficial injury; contusion (20 sources) Abrasion of forehead; Translations: [Abrasion of other part of head, initial encounter] 10-02-2019 Episodic Unclassified (2 sources) Implantation of automatic cardiac defibrillator ; Translations: [Presence of automatic (implantable) cardiac defibrillator] Onset: 1 01-13-2011 Unclassified (2 sources) Long-term drug therapy; Translations: [Other intermediate (current) drug therapy] Onset: 1 01-13-2011 Urinary tract infections (20 sources) Urinary tract infectious disease; Translations: [Urinary tract infection, site not specified] Onset: 5 09-04-2023 Episodic Past or Other Problems Problem [...] FFR of RCA negative per [facility] @ [facility] Esophageal disorders (1 source) Esophagitis; Translations: [Esophagitis, unspecified] Onset: 06-12-2010 06-12-2010 Episodic Malaise and fatigue (20 sources) Fatigue; Translations: [Other fatigue] Onset: 08-10-2012 11-14-2014 Episodic Other aftercare (15 sources) Long-term drug therapy; Translations: [Other intermodal dispatcher (current) drug therapy] Onset: 01-13-2011 01-13-2011 Episodic [...] Test Name Value Interpretation Reference Range Facility CULTURE, URINE, ROUTINEon CULTURE, URINE, ROUTINE SEE NOTE Abnormal [facility] Comment on above: Result Comment: CULTURE, URINE, ROUTINE Micro Number: [id number] Test Status: Preliminary Specimen Source: Indwelling (rod) catheter Specimen Quality: Adequate Result: Greater than 100,000 CFU/mL of Escherichia coli , susceptibility test report to follow. Performed By: #### 3 [id number] #### [facility] [address], [address] [place] [id number] Shop Service Technician: Fantasma Martinez MD Abdomen Single Viewon 2024 Abdomen Single View [facility] [address] [place] [id number] Abdomen Single View MR#: [id number] Acct: [id number] Name: RAJAT GUZMÁN Rep #: [id number] : 1935 M [id number] From: John Pringle MD PCP: Dr. John Noel, DO Status: [facility] CLI Study: Abdomen Single View Date of Exam: 05/09/25 Exam# [id number] Ordering Dr: John Noel DO EXAM: XR Abdomen, 1 View CLINICAL INDICATION: UNSPECIFIED ABD PAIN TECHNIQUE: Frontal supine view of the abdomen/pelvis. COMPARISON: No relevant prior studies available. FINDINGS: GASTROINTESTINAL TRACT: Fecal retention in the colon consistent with constipation. No dilation. BONES/JOINTS: Unremarkable. No acute fracture. LYMPH NODES: Probable calcific density over left-sided mid abdomen, prior from calcified lymph nodes. These are better demonstrated on CT abdomen pelvis dated 04/07/2023. RAD/Abdomen Single View IMPRESSION: Fecal retention in the colon consistent with constipation. Reading Location: [facility] CC: Dr. John Noel DO Licensed Mortician: Signed [facility] Urine Cultureon 05-03-2025 [facility] Urine Culture Escherichia coli [place] Count 50,000-80,000 Pseudomonas aeruginosa Pseudomonas aeruginosa EGAL [place] Count 1000-10,000 Enterococcus gallinarum Ampicillin Islt ALEX <=2 Ampicillin+Sulbac Islt ALEX <=2 S Cefepime Islt ALEX <=0.12 cefTRIAXone Islt ALEX <=0.25 S Ciprofloxacin Islt ALXE >=4 R B-Lactamase Extended Susc Islt NEG Gentamicin Islt ALEX <=1 S levoFLOXacin Islt ALEX >=8 R Meropenem Islt ALEX <=0.25 S Nitrofurantoin Islt ALEX 64 I Pip+Tazo Islt ALEX <=4 S TMP SMX Islt ALEX <=20 S Pseudomonas aeruginosa: REACTION Cefepime Islt ALEX 2 S Ciprofloxacin Islt ALEX <=0.06 S levoFLOXacin Islt ALEX 0.5 Meropenem Islt ALEX <=0.25 S Pip+Tazo Islt ALEX <=4 S Enterococcus gallinarum: REACTION Ampicillin Islt ALEX <=2 S Ciprofloxacin Islt ALEX 1 S Gentamicin Synergy Susc Islt SYN-S levoFLOXacin Islt ALEX 1 S Linezolid Islt ALEX 2 S Nitrofurantoin Islt ALEX <=16 S Streptomycin High Pot Susc Islt SYN-S S Tetracycline Islt ALEX >=16 R Vancomycin Islt ALEX R Normal [facility] Comment on above: Performed By: #### L 500.2810, L100.0100, L101.9900, L501.6710 #### [facility] [address] [place], [address] Absolute lymphocyte countOrd ered By: Manisha Varela on 04-29-2025 Lymphocytes Auto (Unsp spec) [#/Vol] 1.88 10*3/uL 0.83-4.51 [facility] Absolute neutrophil countOrd ered By: Manisha Varela on 04-29-2025 Neutrophils (Bld) [#/Vol] 6.7 10*3/uL 2.0-7.7 [facility] Anion gap in Serum or Plasma Ordered By: Manisha Varela on 04-29-2025 Anion gap [Moles/Vol] 12 mmol/L 5-15 [facility] Automated lymphocyte count a s percentage of total leukocytesOrdered By: Manisha Varela on 04-29-2025 Lymphocytes/100 WBC Auto (Unsp spec) 19.4 % 19-41 [facility] BUN/creatinine ratioOrdered By: Manisha Varela on 04-29-2025 Urea nitrogen/Creatinine [Mass ratio] 9.2 mg/mg Low 10-20 [facility] Basic Metabolic Profile (BMP )on 04-29-2025 BUN/CRE 9.2 RATIO Low 10-20 [facility] Comment on above: Performed By: #### L 500.4050, L100.0100, L101.9900, L501.6710 #### [facility] [address] [place], [address] Calcium [Mass/Vol] 9.1 mg/dL Normal 7.6-11.0 [facility] Comment on above: Performed By: #### L 500.4050, L100.0100, L101.9900, L501.6710 #### [facility] [address] [place], [address] Chloride [Moles/Vol] 102 mmol/L Normal 98-108 [facility] Comment on above: Performed By: #### L 500.4050, L100.0100, L101.9900, [id number] #### [facility] [address] [place], [address] CO2 [Moles/Vol] 24.4 mmol/L Normal 21.0-32.0 [facility] Comment on above: Performed By: #### L 500.4050, L100.0100, L101.9900, L501.6710 #### [facility] [address] [place], [address] Creatinine [Mass/Vol] 0.88 mg/dL Normal 0.70-1.20 [facility] Comment on above: Performed By: #### L 500.4050, L100.0100, L101.9900, L501.6710 #### [facility] [address] [place], [address] ECRCL 42.72 ml/min Low 50-250 [facility] Comment on above: Performed By: #### L 500.4050, L100.0100, L101.9900, [id number] #### [facility] [address] [place], [address] GAP 12 Normal 5-15 [facility] Comment on above: Performed By: #### L 500.4050, L100.0100, L101.9900, [id number] #### [facility] [address] [place], [address] GFR/1.73 sq M.predicted among non-blacks MDRD (S/P/Bld) [Vol rate/Area] 82 mL/min/{1.73_m2} Normal >60 [facility] Comment on above: Result Comment: mL/m in/1.73m2 CKD-EPI Creatinine Equation (2020) Performed By: #### L 500.4050, L100.0100, L101.9900, [id number] #### [facility] [address] [place], [address] Glucose [Mass/Vol] 124 mg/dL High 70-99 [facility] Comment on above: Performed By: #### L 500.4050, L100.0100, L101.9900, [id number] #### [facility] [address] [place], [address] Potassium [Moles/Vol] 4.1 mmol/L Normal 3.3-5.1 [facility] Comment on above: Performed By: #### L 500.4050, L100.0100, L101.9900, [id number] #### [facility] [address] [place], [address] Sodium [Moles/Vol] 138 mmol/L Normal 133-145 [facility] Comment on above: Performed By: #### L 500.4050, L100.0100, L101.9900, [id number] #### [facility] [address] [place], [address] Urea nitrogen [Mass/Vol] 8 mg/dL Normal 4-19 [facility] Comment on above: Performed By: #### L 500.4050, L100.0100, L101.9900, [id number] #### [facility] [address] [place], [address] Basophil percentageOrdered B y: Manisha Varela on 04-29-2025 Basophils/100 WBC (Bld) 0.2 % 0-1 [facility] CBC W/Diff, Automatedon 04-02 Absolute Lymph 1.88 X10 3/uL Normal 0.83-4.51 [facility] Comment on above: Performed By: #### L 500.4050, L100.0100, L101.9900, [id number] #### [facility] [address] [place], [address] Absolute Neut 6.7 X10 3/uL Normal 2.0-7.7 [facility] Comment on above: Performed By: #### L 500.4050, L100.0100, L101.9900, [id number] #### [facility] [address] [place], [address] Basophils/100 WBC (Bld) 0.2 % Normal 0-1 [facility] Comment on above: Performed By: #### L 500.4050, L100.0100, L101.9900, [id number] #### [facility] [address] [place], [address] Eosinophils/100 WBC (Bld) 0.2 % Normal 0-5 [facility] Comment on above: Performed By: #### L 500.4050, L100.0100, L101.9900, [id number] #### [facility] [address] [place], [address] Erythrocyte distribution width (RBC) [Ratio] 13.3 % Normal 11.6-14.6 [facility] Comment on above: Performed By: #### L 500.4050, L100.0100, L101.9900, [id number] #### [facility] [address] [place], [address] Hematocrit (Bld) [Volume fraction] 35.2 % Low 40-54 [facility] Comment on above: Performed By: #### L 500.4050, L100.0100, L101.9900, [id number] #### [facility] [address] [place], [address] Hemoglobin (Bld) [Mass/Vol] 11.6 g/dL Low 13.0-16.5 [facility] Comment on above: Performed By: #### L 500.4050, L100.0100, L101.9900, L501.6710 #### [facility] [address] [place], [address] IG% 0.400 Normal 0.0-0.9 [facility] Comment on above: Result Comment: IG% - Immature Granulocytes (promyelocytes, myelocytes and metamyelocytes) > 1% indicates that a LEFT SHIFT is Present. Performed By: #### L 500.4050, L100.0100, L101.9900, L501.6710 #### [facility] [address] [place], [address] Lymphocytes/100 WBC (Bld) 19.4 % Normal 19-41 [facility] Comment on above: Performed By: #### L 500.4050, L100.0100, L101.9900, [id number] #### [facility] [address] [place], [address] MCH (RBC) [Entitic mass] 29.8 pg Normal 27.0-32.0 [facility] Comment on above: Performed By: #### L 500.4050, L100.0100, L101.9900, L501.6710 #### [facility] [address] [place], [address] MCHC (RBC) [Mass/Vol] 33.0 g/dL Normal 32-36 [facility] Comment on above: Performed By: #### L 500.4050, L100.0100, L101.9900, L501.6710 #### [facility] [address] [place], [address] MCV (RBC) [Entitic vol] 90.5 fL Normal 80-94 [facility] Comment on above: Performed By: #### L 500.4050, L100.0100, L101.9900, L501.6710 #### [facility] [address] [place], [address] Monocytes/100 WBC (Bld) 10.6 % High 0-10 [facility] Comment on above: Performed By: #### L 500.4050, L100.0100, L101.9900, [id number] #### [facility] [address] [place], [address] Neutrophils/100 WBC (Bld) 69.2 % Normal 47-70 [facility] Comment on above: Performed By: #### L 500.4050, L100.0100, L101.9900, [id number] #### [facility] [address] [place], [address] Nucleated RBC (Bld) [#/Vol] 0 10*3/uL Normal 0-5 [facility] Comment on above: Performed By: #### L 500.4050, L100.0100, L101.9900, [id number] #### [facility] [address] [place], [address] Platelet mean volume (Bld) [Entitic vol] 11.0 fL Normal 6.2-12.0 [facility] Comment on above: Performed By: #### L 500.4050, L100.0100, L101.9900, L501.6710 #### [facility] [address] [place], [address] Platelets (Bld) [#/Vol] 185 10*3/uL Normal 150-450 [facility] Comment on above: Performed By: #### L 500.4050, L100.0100, L101.9900, L501.6710 #### [facility] [address] [place], [address] RBC (Bld) [#/Vol] 3.89 10*6/uL Low 4.6-6.2 [facility] Comment on above: Performed By: #### L 500.4050, L100.0100, L101.9900, L501.6710 #### [facility] [address] [place], [address] RDW SD 43.8 fl Normal 35.1-43.9 [facility] Comment on above: Performed By: #### L 500.4050, L100.0100, L101.9900, [id number] #### [facility] [address] [place], [address] WBC (Bld) [#/Vol] 9.7 10*3/uL Normal 4.4-11.0 [facility] Comment on above: Performed By: #### L 500.4050, L100.0100, L101.9900, L501.6710 #### [facility] [address] [place], [address] Carbon dioxide, total [Moles /volume] in Central venous bloodOrdered By: Manisha Varela on 04-29-2025 CO2 [Moles/Vol] 24.4 mmol/L 21.0-32.0 [facility] Chloride assayOrdered By: Umer Varela on 04-29-2025 Chloride [Moles/Vol] 102 mmol/L 98-108 [facility] Eosinophil percentageOrdered By: Manisha Vraela on 04-29-2025 Eosinophils/100 WBC (Bld) 0.2 % 0-5 [facility] Erythrocyte distribution wid th ratioOrdered By: Manisha Varela on 04-29-2025 Erythrocyte distribution width (RBC) [Ratio] 13.3 % 11.6-14.6 [facility] Erythrocyte distribution wid th standard deviationOrdered By: Manisha Varela on 04-29-2025 Erythrocyte distribution width (RBC) [Ratio] 43.8 fl 35.1-43.9 [facility] Glomerular filtration rate ( GFR) estimation/1.73 sq m using serum, plasma, or whole bOrdered By: Manisha Varela on 04-29-2025 GFR/1.73 sq M.predicted among non-blacks MDRD (S/P/Bld) [Vol rate/Area] 82 mL/min/{1.73_m2} >60 [facility] Comment on above: mL/min/1.73m2 CKD-EP I Creatinine Equation (2020) Hematocrit Auto (Bld) [Volum e fraction]Ordered By: Manisha Varela on 04-29-2025 Hematocrit (Bld) [Volume fraction] 35.2 % Low 40-54 [facility] Hemoglobin measurementOrdere d By: Manisha Varela on 04-29-2025 Hemoglobin (Bld) [Mass/Vol] 11.6 g/dL Low 13.0-16.5 [facility] Immature granulocytes/100 WB C Auto (Bld)Ordered By: Manisha Varela on 04-29-2025 Immature granulocytes/100 WBC (Bld) 0.400 % 0.0-0.9 [facility] Comment on above: IG% - Immature Granu locytes (promyelocytes, myelocytes and metamyelocytes) > 1% indicates that a LEFT SHIFT is Present. MCV (mean corpuscular volume ) determinationOrdered By: Manisha Varela on 04-29-2025 MCV (RBC) [Entitic vol] 90.5 fL 80-94 [facility] Mean corpuscular hemoglobin (MCH) determinationOrdered By: Manisha Varela on 04-29-2025 MCH (RBC) [Entitic mass] 29.8 pg 27.0-32.0 [facility] Mean corpuscular hemoglobin concentration (MCHC) determinationOrdered By: Manisha Varela on 04-29-2025 MCHC (RBC) [Mass/Vol] 33.0 g/dL 32-36 [facility] Mean platelet volume determi nationOrdered By: Manisha Varela on 04-29-2025 Platelet mean volume (Bld) [Entitic vol] 11.0 fL 6.2-12.0 [facility] Monocyte percentageOrdered B y: Manisha Varela on 04-29-2025 Monocytes/100 WBC (Bld) 10.6 % High 0-10 [facility] Neutrophil percentageOrdered By: Manisha Varela on 04-29-2025 Neutrophils/100 WBC (Bld) 69.2 % 47-70 [facility] Nucleated red blood cell per centageOrdered By: Manisha Varela on 04-29-2025 Nucleated RBC/100 WBC (Bld) [Ratio] 0 % 0-5 [facility] Platelet countOrdered By: Umer Varela on 04-29-2025 Platelets (Bld) [#/Vol] 185 10*3/uL 150-450 [facility] Potassium measurement (mass/ volume)Ordered By: Manisha Varela on 04-29-2025 Potassium (Unsp spec) [Mass/Vol] 4.1 mmol/L 3.3-5.1 [facility] RBC Auto (Bld) [#/Vol]Ordere d By: Manisha Varela on 04-29-2025 RBC (Bld) [#/Vol] 3.89 10*6/uL Low 4.6-6.2 [facility] Serum creatinine measurement (mass/volume)Ordered By: Manisha Varela on 04-29-2025 Creatinine [Mass/Vol] 0.88 mg/dL 0.70-1.20 [facility] Serum glucose measurement (m ass/volume)Ordered By: Manisha Varela on 04-29-2025 Glucose [Mass/Vol] 124 mg/dL High 70-99 [facility] Serum or plasma calcium alfonso urement (mass/volume)Ordered By: Manisha Varela on 04-29-2025 Calcium [Mass/Vol] 9.1 mg/dL 7.6-11.0 [facility] Serum or plasma urea nitroge n measurement (mass/volume)Ordered By: Manisha Varela on 04-29-2025 Urea nitrogen [Mass/Vol] 8 mg/dL 4-19 [facility] Sodium levelOrdered By: Erma Varela on 04-29-2025 Sodium [Moles/Vol] 138 mmol/L 133-145 [facility] White blood cell (WBC) count Ordered By: Manisha Varela on 04-29-2025 WBC (Bld) [#/Vol] 9.7 10*3/uL 4.4-11.0 [facility] Absolute lymphocyte countOrd ered By: Henok Villarreal on 04-28-2025 Lymphocytes Auto (Unsp spec) [#/Vol] 2.05 10*3/uL 0.83-4.51 [facility] Absolute neutrophil countOrd ered By: Henok Villarreal on 04-28-2025 Neutrophils (Bld) [#/Vol] 8.3 10*3/uL High 2.0-7.7 [facility] Anion gap in Serum or Plasma Ordered By: Henok Villarreal on 04-28-2025 Anion gap [Moles/Vol] 12 mmol/L 5-15 [facility] Automated lymphocyte count a s percentage of total leukocytesOrdered By: Henok Villarreal on 04-28-2025 Lymphocytes/100 WBC Auto (Unsp spec) 17.9 % Low 19-41 [facility] BUN/creatinine ratioOrdered By: Henok Villarreal on 04-28-2025 Urea nitrogen/Creatinine [Mass ratio] 10.5 mg/mg 10-20 [facility] Basophil percentageOrdered B y: Henok Villarreal on 04-28-2025 Basophils/100 WBC (Bld) 0.4 % 0-1 [facility] Bilirubin, totalOrdered By: Henok Villarreal on 04-28-2025 Bilirubin [Mass/Vol] 0.81 mg/dL 0.00-1.30 [facility] CBC W/Diff, Automatedon 04-02 Absolute Lymph 2.05 X10 3/uL Normal 0.83-4.51 [facility] Comment on above: Performed By: #### L 503.6005, L500.4050, L100.0100 #### [facility] [address] [place], [address] Absolute Neut 8.3 X10 3/uL High 2.0-7.7 [facility] Comment on above: Performed By: #### L 503.6005, L500.4050, L100.0100 #### [facility] [address] [place], [address] Basophils/100 WBC (Bld) 0.4 % Normal 0-1 [facility] Comment on above: Performed By: #### L 503.6005, L500.4050, L100.0100 #### [facility] [address] [place], [address] Eosinophils/100 WBC (Bld) 0.2 % Normal 0-5 [facility] Comment on above: Performed By: #### L 503.6005, L500.4050, L100.0100 #### [facility] [address] [place], [address] Erythrocyte distribution width (RBC) [Ratio] 13.4 % Normal 11.6-14.6 [facility] Comment on above: Performed By: #### L 503.6005, L500.4050, L100.0100 #### [facility] [address] [place], [address] Hematocrit (Bld) [Volume fraction] 37.3 % Low 40-54 [facility] Comment on above: Performed By: #### L 503.6005, L500.4050, L100.0100 #### [facility] [address] [facility], [address] Hemoglobin (Bld) [Mass/Vol] 12.4 g/dL Low 13.0-16.5 [facility] Comment on above: Performed By: #### L 503.6005, L500.4050, L100.0100 #### [facility] [address] [place], [address] IG% 0.200 Normal 0.0-0.9 [facility] Comment on above: Result Comment: IG% - Immature Granulocytes (promyelocytes, myelocytes and metamyelocytes) > 1% indicates that a LEFT SHIFT is Present. Performed By: #### L 503.6005, L500.4050, L100.0100 #### [facility] [address] [place], [address] Lymphocytes/100 WBC (Bld) 17.9 % Low 19-41 [facility] Comment on above: Performed By: #### L 503.6005, L500.4050, L100.0100 #### [facility] [address] [place], [address] MCH (RBC) [Entitic mass] 30.0 pg Normal 27.0-32.0 [facility] Comment on above: Performed By: #### L 503.6005, L500.4050, L100.0100 #### [facility] [address] [place], [address] MCHC (RBC) [Mass/Vol] 33.2 g/dL Normal 32-36 [facility] Comment on above: Performed By: #### L 503.6005, L500.4050, L100.0100 #### [facility] [address] [place], [address] MCV (RBC) [Entitic vol] 90.1 fL Normal 80-94 [facility] Comment on above: Performed By: #### L 503.6005, L500.4050, L100.0100 #### [facility] [address] [place], [address] Monocytes/100 WBC (Bld) 8.6 % Normal 0-10 [facility] Comment on above: Performed By: #### L 503.6005, L500.4050, L100.0100 #### [facility] [address] [place], [address] Neutrophils/100 WBC (Bld) 72.7 % High 47-70 [facility] Comment on above: Performed By: #### L 503.6005, L500.4050, L100.0100 #### [facility] [address] [place], [address] Nucleated RBC (Bld) [#/Vol] 0 10*3/uL Normal 0-5 [facility] Comment on above: Performed By: #### L 503.6005, L500.4050, L100.0100 #### [facility] [address] [place], [address] Platelet mean volume (Bld) [Entitic vol] 10.6 fL Normal 6.2-12.0 [facility] Comment on above: Performed By: #### L 503.6005, L500.4050, L100.0100 #### [facility] [address] [place], [address] Platelets (Bld) [#/Vol] 189 10*3/uL Normal 150-450 [facility] Comment on above: Performed By: #### L 503.6005, L500.4050, L100.0100 #### [facility] [address] [place], [address] RBC (Bld) [#/Vol] 4.14 10*6/uL Low 4.6-6.2 [facility] Comment on above: Performed By: #### L 503.6005, L500.4050, L100.0100 #### [facility] [address] [place], [address] RDW SD 44.0 fl High 35.1-43.9 [facility] Comment on above: Performed By: #### L 503.6005, L500.4050, L100.0100 #### [facility] [address] [place], [address] WBC (Bld) [#/Vol] 11.5 10*3/uL High 4.4-11.0 [facility] Comment on above: Performed By: #### L 503.6005, L500.4050, L100.0100 #### [facility] [address] [place], [address] Carbon dioxide, total [Moles /volume] in Central venous bloodOrdered By: Henok Villarreal on 04-28-2025 CO2 [Moles/Vol] 24.7 mmol/L 21.0-32.0 [facility] Chloride assayOrdered By: Damir Villarreal on 04-28-2025 Chloride [Moles/Vol] 99 mmol/L 98-108 [facility] Comprehensive Metabolic Prof ilon 04-28-2025 Albumin [Mass/Vol] 3.9 g/dL Normal 3.4-4.8 [facility] Comment on above: Performed By: #### L 500.4050, L100.0100, L101.9900, L501.6710 #### [facility] [address] [place], [address] Albumin/Globulin [Mass ratio] 1.2 {ratio} Normal 0.9-2.4 [facility] Comment on above: Performed By: #### L 500.4050, L100.0100, L101.9900, L501.6710 #### [facility] [address] [place], [address] ALK PHOS 64 U/L Normal 40-129 [facility] Comment on above: Performed By: #### L 500.4050, L100.0100, L101.9900, L501.6710 #### [facility] [address] [place], [address] ALT [Catalytic activity/Vol] 10 U/L Normal <=46 [facility] Comment on above: Performed By: #### L 500.4050, L100.0100, L101.9900, L501.6710 #### [facility] [address] [place], [address] AST [Catalytic activity/Vol] 21 U/L Normal <=37 [facility] Comment on above: Performed By: #### L 500.4050, L100.0100, L101.9900, L501.6710 #### [facility] [address] [place], [address] Bilirubin [Mass/Vol] 0.81 mg/dL Normal 0.00-1.30 [facility] Comment on above: Performed By: #### L 500.4050, L100.0100, L101.9900, L501.6710 #### [facility] [address] [place], [address] BUN/CRE 10.5 RATIO Normal 10-20 [facility] Comment on above: Performed By: #### L 500.4050, L100.0100, L101.9900, L501.6710 #### [facility] [address] [place] [address] Calcium [Mass/Vol] 9.3 mg/dL Normal 7.6-11.0 [facility] Comment on above: Performed By: #### L 500.4050, L100.0100, L101.9900, L501.6710 #### [facility] [address] [place], [address] Chloride [Moles/Vol] 99 mmol/L Normal 98-108 [facility] Comment on above: Performed By: #### L 500.4050, L100.0100, L101.9900, L501.6710 #### [facility] [address] [place], [address] CO2 [Moles/Vol] 24.7 mmol/L Normal 21.0-32.0 [facility] Comment on above: Performed By: #### L 500.4050, L100.0100, L101.9900, L501.6710 #### [facility] [address] [place], [address] Creatinine [Mass/Vol] 0.82 mg/dL Normal 0.70-1.20 [facility] Comment on above: Performed By: #### L 500.4050, L100.0100, L101.9900, L501.6710 #### [facility] [address] [place], [address] ECRCL 46.43 ml/min Low 50-250 [facility] Comment on above: Performed By: #### L 500.4050, L100.0100, L101.9900, L501.6710 #### [facility] [address] [place], [address] GAP 12 Normal 5-15 [facility] Comment on above: Performed By: #### L 500.4050, L100.0100, L101.9900, L501.6710 #### [facility] [address] [place], [address] GFR/1.73 sq M.predicted among non-blacks MDRD (S/P/Bld) [Vol rate/Area] 84 mL/min/{1.73_m2} Normal >60 [facility] Comment on above: Result Comment: mL/m in/1.73m2 CKD-EPI Creatinine Equation (2020) Performed By: #### L 500.4050, L100.0100, L101.9900, L501.6710 #### [facility] [address] [place], [address] Globulin (S) [Mass/Vol] 3.3 g/dL Normal 2.2-4.2 [facility] Comment on above: Performed By: #### L 500.4050, L100.0100, L101.9900, L501.6710 #### [facility] [address] [place], [address] Glucose [Mass/Vol] 149 mg/dL High 70-99 [facility] Comment on above: Performed By: #### L 500.4050, L100.0100, L101.9900, L501.6710 #### [facility] [address] [place], [address] Potassium [Moles/Vol] 3.8 mmol/L Normal 3.3-5.1 [facility] Comment on above: Performed By: #### L 500.4050, L100.0100, L101.9900, L501.6710 #### [facility] [address] [place], [address] Sodium [Moles/Vol] 137 mmol/L Normal 133-145 [facility] Comment on above: Performed By: #### L 500.4050, L100.0100, L101.9900, L501.6710 #### [facility] [address] [place], [address] T PROT 7.3 g/dL Normal 5.9-8.4 [facility] Comment on above: Performed By: #### L 500.4050, L100.0100, L101.9900, L501.6710 #### [facility] [address] [place], [address] Urea nitrogen [Mass/Vol] 9 mg/dL Normal 4-19 [facility] Comment on above: Performed By: #### L 500.4050, L100.0100, L101.9900, L501.6710 #### [facility] [address] [place], [address] Emergency Department Summary on 04-28-2025 Emergency Department Summary [facility] Medical Records Department [address] [place] [address] Emergency Department Summary 04/28/25 MR#: [id number] Acct: [id number] Name: RAJAT GUZMÁN Rep #: [id number] : 1935 89 From: Henok Villarreal MD PCP: Dr. John Noel, DO Status:REG ER Location: ED HPI History of Present Illness Chief Complaint: Complaint Detail of Chief Complaint: Urinary symptoms, nausea and vomiting and now dry heaves Informant: patient and family (Daughter who lives near him) Onset/Context/Timing Onset: Yesterday and Days (Has not eaten well for the past 2 to 3 days.) Context: Sudden Onset Timing: Continuous Quality: Patient diagnosed with UTI yesterday, now has nausea and vomiting Location: and GI Current Severity: Mild Maximum Severity: Moderate Worsened by: Attempt to eat or drink anything or urinate Relieved by: Nothing Associated Symptoms Associated Symptoms: Subjective fever no chills. Narrative Narrative: Patient is an 89-year-old male. He was seen yesterday. He drove himself to the ER yesterday. He has not eaten well according to daughter for the past 2 to 3 days. Patient does admit he has not eaten well. He was diagnosed yesterday with a UTI. He was placed on cephalexin 500 mg. Patient has not been able to take 1 dose because of nausea vomiting and now dry heaves. He denies headache, double vision blurred vision loss of vision. He denies ringing in ears decreased hearing. Denies trouble with speech or swallowing. He does endorse thirst and dry mouth. He denies cardiac or respiratory symptoms. He denies abdominal pain. He does endorse nausea vomiting and dry heaves. He denies diarrhea or constipation. He does admit to dark urine, dysuria and frequency. He denies testicular pain. He denies pain in the perineal area. Prior similar symptoms: Yes Recent Illness/Hospitalization: Yes [facility] Medical History Non-smoker History of heart [...] Chest pain, precordial Atherosclerotic heart disease of kenaitze coronary artery without angina pectoris Dyspnea Fatigue [...] BID #60 tabs 11/10/24 U nknown Rx oxybutynin chloride 5 mg 5 mg PO QDAY 11/10/24 Unknown Hist ory tablet,extended release 24 hr prednisone 5 mg tablet 5 mg PO QDAY 11/10/24 Unknown Hist ory ondansetron 4 mg disintegrating 4 mg PO Q8H PRN PRN Nausea #10 tab s 12/16/24 Unknown Rx tablet sacubitril 24 mg-valsartan 26 mg 1 tab PO BID #60 tabs 03/14/25 Unk nown Rx tablet (Entresto) cephalexin 500 mg capsule 500 mg PO Q6 #28 CAPSULES 04/27/25 Unknown Rx phenazopyridine 200 mg tablet 200 mg PO TID 6 doses #5 tabs 04/02 05/25 Unknown Rx (Pyridium) Allergy/AdvReac Type Severity Reaction Status Date / Time morphine Allergy Intermediate Rash Verified 04/28/25 15:27 zolpidem tartrate (From AdvReac Intermediate CONFUSION Verified 04/28/25 15:27 Ambien) Family History Mother CAD (coronary artery disease) CVA (cerebral vascular accident) Myocardial infarction, Onset Age: 67 Hypertension Brother CAD (coronary artery disease) Hypertension Cancer Lung CA Myocardial infarction, Onset Age: 73 Father Eliot (more content not included)... Normal [facility] Eosinophil percentageOrdered By: Henok Villarreal on 04-28-2025 Eosinophils/100 WBC (Bld) 0.2 % 0-5 [facility] Erythrocyte distribution wid th ratioOrdered By: Henok Villarreal on 04-28-2025 Erythrocyte distribution width (RBC) [Ratio] 13.4 % 11.6-14.6 [facility] Erythrocyte distribution wid th standard deviationOrdered By: Henok Villarreal on 04-28-2025 Erythrocyte distribution width (RBC) [Ratio] 44.0 fl High 35.1-43.9 [facility] Glomerular filtration rate ( GFR) estimation/1.73 sq m using serum, plasma, or whole bOrdered By: Henok Villarreal on 04-28-2025 GFR/1.73 sq M.predicted among non-blacks MDRD (S/P/Bld) [Vol rate/Area] 84 mL/min/{1.73_m2} >60 [facility] Comment on above: mL/min/1.73m2 CKD-EP I Creatinine Equation (2020) H AND P Exam - [facility] 04-28-2025 H&P Exam - Hospitalist [facility] Medical Records Department [address] [place] [address] H P Exam - Hospitalist 04/28/25 1832 MR#: [id number] Acct: [id number] Name: RAJAT GUZMÁN Rep #: [id number] : 1935 89 From: Manisha Varela MD PCP: Dr. John Noel, DO Status:DIS IN Location: [facility] HH815-5 HPI - General General Date of Admission: 04/29/25 HPI Narrative RAJAT GUZMÁN, is a 89-year-old male history of coronary artery disease with stenting, AICD, CHF, BPH who presented [facility] ED 04/28/2025 with urinary symptoms, nausea, vomiting and now dry heaves. Patient was seen yesterday in the ED with poor p.o. intake and was found to have a UTI and placed on Keflex but he has been having nausea and vomiting with dry heaves so has not been able to take the medication. In the ED temp 98.3, heart rate 90 with blood pressure 150/80, respiratory rate 16 pulse ox 98% on room air. Lactic acid within normal limits, BMP only notable for a glucose of 149, white blood cell count 11.5 with hemoglobin 12.4. Given patient's inability to tolerate p.o. antibiotics hospitalist contacted for admission. Patient evaluated family member at bedside and reports that he has not been eating well for the past 2 days and had significant suprapubic pain and episode of diarrhea yesterday, had been having dark stool previously but has been drinking Pepto-Bismol, has had a slight cough. No chest pain or shortness of breath, no headache, no fevers. Does report suprapubic pain is improving since yesterday but has significant nausea and dry heaves and has been unable to take in p.o. [facility] Medical History Non-smoker History of [...] Chest pain, precordial Atherosclerotic heart disease of kenaitze coronary artery without angina pectoris Dyspnea Fatigue [...] BID #60 tabs 11/10/24 U nknown Rx prednisone 5 mg tablet 5 mg PO QDAY 11/10/24 Unknown Hist ory ondansetron 4 mg disintegrating 4 mg PO Q8H PRN PRN Nausea #10 tab s 12/16/24 Unknown Rx tablet sacubitril 24 mg-valsartan 26 mg 1 tab PO BID #60 tabs 03/14/25 Unk nown Rx tablet (Entresto) cephalexin 500 mg capsule 500 mg PO Q6 #28 CAPSULES 04/27/25 Unknown Rx phenazopyridine 200 mg tablet 200 mg PO TID 6 doses #5 tabs 04/02 05/25 Unknown Rx (Pyridium) diphenhydramine 25 2 tab PO QHS 04/28/25 Unknown Hist ory mg-acetaminophen 500 mg tablet (Tylenol PM Extra Strength) melatonin 10 mg tablet 20 mg PO QHS sleep 04/28/25 Unknow n History oxybutynin chloride 5 mg tablet 5 mg PO TID 04/28/25 Unknown Histo ry Allergy/AdvReac Type Severity Reaction Status Date / Time morphine Allergy Intermediate Rash Verified 04/28/25 15:27 zolpidem tartrate (From AdvReac Intermediate CONFUSION Verified 04/28/25 15:27 Ambien) Family History Mother CAD (coronary artery disease) CVA (cerebral vascular accident) Myocardial infarction, Onset Age: 67 Hypertension Brother CAD (coronary artery disease) Hypertension Cancer Lung CA Myocardial infarction, Onset Age: 73 Father Myocardial infarction, Onset Age: 77 Daughter Cancer Son Myocardial infarction, Onset Age: 46 Othe (more content not included)... Normal [facility] Hematocrit Auto (Bld) [Volum e fraction]Ordered By: Henok Villarreal on 04-28-2025 Hematocrit (Bld) [Volume fraction] 37.3 % Low 40-54 [facility] Hemoglobin measurementOrdere d By: Henok Villarreal on 04-28-2025 Hemoglobin (Bld) [Mass/Vol] 12.4 g/dL Low 13.0-16.5 [facility] Immature granulocytes/100 WB C Auto (Bld)Ordered By: Henok Villarreal on 04-28-2025 Immature granulocytes/100 WBC (Bld) 0.200 % 0.0-0.9 [facility] Comment on above: IG% - Immature Granu locytes (promyelocytes, myelocytes and metamyelocytes) > 1% indicates that a LEFT SHIFT is Present. Laboratory - Chemistry and C hemistry - challengeOrdered By: Henok Villarreal on 04-28-2025 AST [Catalytic activity/Vol] 21 U/L <38 [facility] Lactic Acidon 04-28-2025 Lactate [Moles/Vol] 1.2 mmol/L Normal 0.0-2.0 [facility] Comment on above: Order Comment: Y Performed By: #### L 500.4050, L100.0100, L101.9900, L501.6710 #### [facility] [place], [address] Lactic acid measurementOrder ed By: Henok Villarreal on 04-28-2025 Lactate [Moles/Vol] 1.2 mmol/L 0.0-2.0 [facility] MCV (mean corpuscular volume ) determinationOrdered By: Henok Villarreal on 04-28-2025 MCV (RBC) [Entitic vol] 90.1 fL 80-94 [facility] Mean corpuscular hemoglobin (MCH) determinationOrdered By: Henok Villarreal on 04-28-2025 MCH (RBC) [Entitic mass] 30.0 pg 27.0-32.0 [facility] Mean corpuscular hemoglobin concentration (MCHC) determinationOrdered By: Henok Villarreal on 04-28-2025 MCHC (RBC) [Mass/Vol] 33.2 g/dL 32-36 [facility] Mean platelet volume determi nationOrdered By: Henok Villarreal on 04-28-2025 Platelet mean volume (Bld) [Entitic vol] 10.6 fL 6.2-12.0 [facility] Monocyte percentageOrdered B y: Henok Villarreal on 04-28-2025 Monocytes/100 WBC (Bld) 8.6 % 0-10 [facility] Neutrophil percentageOrdered By: Henok Villarreal on 04-28-2025 Neutrophils/100 WBC (Bld) 72.7 % High 47-70 [facility] Nucleated red blood cell per centageOrdered By: Henok Villarreal on 04-28-2025 Nucleated RBC/100 WBC (Bld) [Ratio] 0 % 0-5 [facility] Platelet countOrdered By: Ug o Villarreal on 04-28-2025 Platelets (Bld) [#/Vol] 189 10*3/uL 150-450 [facility] Potassium measurement (mass/ volume)Ordered By: Henok Villarreal on 04-28-2025 Potassium (Unsp spec) [Mass/Vol] 3.8 mmol/L 3.3-5.1 [facility] RBC Auto (Bld) [#/Vol]Ordere d By: Henok Villarreal on 04-28-2025 RBC (Bld) [#/Vol] 4.14 10*6/uL Low 4.6-6.2 [facility] Serum creatinine measurement (mass/volume)Ordered By: Henok Villarreal on 04-28-2025 Creatinine [Mass/Vol] 0.82 mg/dL 0.70-1.20 [facility] Serum globulin measurementOr dered By: Henok Villarreal on 04-28-2025 Globulin (S) [Mass/Vol] 3.3 g/dL 2.2-4.2 [facility] Serum glucose measurement (m ass/volume)Ordered By: Henok Villarreal on 04-28-2025 Glucose [Mass/Vol] 149 mg/dL High 70-99 [facility] Serum or plasma alanine rice otransferase (ALT) measurementOrdered By: Henok Villarreal on 04-28-2025 ALT [Catalytic activity/Vol] 10 U/L <47 [facility] Serum or plasma albumin alfonso urement (mass/volume)Ordered By: Henok Villarreal on 04-28-2025 Albumin [Mass/Vol] 3.9 g/dL 3.4-4.8 [facility] Serum or plasma albumin/glob ulin mass ratioOrdered By: Henok Villarreal on 04-28-2025 Albumin/Globulin [Mass ratio] 1.2 {ratio} 0.9-2.4 [facility] Serum or plasma alkaline rory sphatase measurementOrdered By: Henokeric Villarreal 04-28-2025 ALP [Catalytic activity/Vol] 64 U/L 40-129 [facility] Serum or plasma calcium alfonso urement (mass/volume)Ordered By: Henok Villarreal on 04-28-2025 Calcium [Mass/Vol] 9.3 mg/dL 7.6-11.0 [facility] Serum or plasma urea nitroge n measurement (mass/volume)Ordered By: Henok Villarreal on 04-28-2025 Urea nitrogen [Mass/Vol] 9 mg/dL 4-19 [facility] Sodium levelOrdered By: Henok Villarreal on 04-28-2025 Sodium [Moles/Vol] 137 mmol/L 133-145 [facility] Total proteinOrdered By: Henokeric Villarreal on 04-28-2025 Protein [Mass/Vol] 7.3 g/dL 5.9-8.4 [facility] White blood cell (WBC) count Ordered By: Henok Villarreal on 04-28-2025 WBC (Bld) [#/Vol] 11.5 10*3/uL High 4.4-11.0 [facility] Absolute lymphocyte countOrd ered By: Timoteo Mckenna on 04-27-2025 Lymphocytes Auto (Unsp spec) [#/Vol] 1.92 10*3/uL 0.83-4.51 [facility] Absolute neutrophil countOrd ered By: Timoteo Mckenna on 04-27-2025 Neutrophils (Bld) [#/Vol] 7.0 10*3/uL 2.0-7.7 [facility] Anion gap in Serum or Plasma Ordered By: Timoteo Mckenna on 04-27-2025 Anion gap [Moles/Vol] 12 mmol/L 5-15 [facility] Automated lymphocyte count a s percentage of total leukocytesOrdered By: Timoteo Mckenna on 04-27-2025 Lymphocytes/100 WBC Auto (Unsp spec) 19.6 % 19-41 [facility] BUN/creatinine ratioOrdered By: Timoteo Mckenna on 04-27-2025 Urea nitrogen/Creatinine [Mass ratio] 14.1 mg/mg 10-20 [facility] Basophil percentageOrdered B y: Timoteo Mckenna on 04-27-2025 Basophils/100 WBC (Bld) 0.5 % 0-1 [facility] Bilirubin Test strip Ql (U)O rdered By: Timoteo Mckenna on 04-27-2025 Bilirubin Ql (U) Negative Negative [facility] Bilirubin, totalOrdered By: Timoteo Mckenna on 04-27-2025 Bilirubin [Mass/Vol] 0.75 mg/dL 0.00-1.30 [facility] CBC W/Diff, Automatedon 06-2 Absolute Lymph 1.92 X10 3/uL Normal 0.83-4.51 [facility] Comment on above: Performed By: #### L 501.2450, L500.4050, L100.0100 #### [facility] [address] [place], [address] Absolute Neut 7.0 X10 3/uL Normal 2.0-7.7 [facility] Comment on above: Performed By: #### L 501.2450, L500.4050, L100.0100 #### [facility] [address] [place], [address] Basophils/100 WBC (Bld) 0.5 % Normal 0-1 [facility] Comment on above: Performed By: #### L 501.2450, L500.4050, L100.0100 #### [facility] [address] [place], [address] Eosinophils/100 WBC (Bld) 1.0 % Normal 0-5 [facility] Comment on above: Performed By: #### L 501.2450, L500.4050, L100.0100 #### [facility] [address] [place], [address] Erythrocyte distribution width (RBC) [Ratio] 13.6 % Normal 11.6-14.6 [facility] Comment on above: Performed By: #### L 501.2450, L500.4050, L100.0100 #### [facility] [address] [place], [address] Hematocrit (Bld) [Volume fraction] 36.0 % Low 40-54 [facility] Comment on above: Performed By: #### L 501.2450, L500.4050, L100.0100 #### [facility] [address] [place], [address] Hemoglobin (Bld) [Mass/Vol] 12.2 g/dL Low 13.0-16.5 [facility] Comment on above: Performed By: #### L 501.2450, L500.4050, L100.0100 #### [facility] [address] [place], [address] IG% 0.400 Normal 0.0-0.9 [facility] Comment on above: Result Comment: IG% - Immature Granulocytes (promyelocytes, myelocytes and metamyelocytes) > 1% indicates that a LEFT SHIFT is Present. Performed By: #### L 501.2450, L500.4050, L100.0100 #### [facility] [address] [place], [address] Lymphocytes/100 WBC (Bld) 19.6 % Normal 19-41 [facility] Comment on above: Performed By: #### L 501.2450, L500.4050, L100.0100 #### [facility] [address] [place], [address] MCH (RBC) [Entitic mass] 30.3 pg Normal 27.0-32.0 [facility] Comment on above: Performed By: #### L 501.2450, L500.4050, L100.0100 #### [facility] [address] [place], [address] MCHC (RBC) [Mass/Vol] 33.9 g/dL Normal 32-36 [facility] Comment on above: Performed By: #### L 501.2450, L500.4050, L100.0100 #### [facility] [address] [place], [address] MCV (RBC) [Entitic vol] 89.3 fL Normal 80-94 [facility] Comment on above: Performed By: #### L 501.2450, L500.4050, L100.0100 #### [facility] [address] [place], [address] Monocytes/100 WBC (Bld) 7.4 % Normal 0-10 [facility] Comment on above: Performed By: #### L 501.2450, L500.4050, L100.0100 #### [facility] [address] [place], [address] Neutrophils/100 WBC (Bld) 71.1 % High 47-70 [facility] Comment on above: Performed By: #### L 501.2450, L500.4050, L100.0100 #### [facility] [address] [place], [address] Nucleated RBC (Bld) [#/Vol] 0 10*3/uL Normal 0-5 [facility] Comment on above: Performed By: #### L 501.2450, L500.4050, L100.0100 #### [facility] [address] [place], [address] Platelet mean volume (Bld) [Entitic vol] 11.6 fL Normal 6.2-12.0 [facility] Comment on above: Performed By: #### L 501.2450, L500.4050, L100.0100 #### [facility] [address] [place], [address] Platelets (Bld) [#/Vol] 201 10*3/uL Normal 150-450 [facility] Comment on above: Performed By: #### L 501.2450, L500.4050, L100.0100 #### [facility] [address] [place], [address] RBC (Bld) [#/Vol] 4.03 10*6/uL Low 4.6-6.2 [facility] Comment on above: Performed By: #### L 501.2450, L500.4050, L100.0100 #### [facility] [address] [place], [address] RDW SD 43.9 fl Normal 35.1-43.9 [facility] Comment on above: Performed By: #### L 501.2450, L500.4050, L100.0100 #### [facility] [address] [place], [address] WBC (Bld) [#/Vol] 9.8 10*3/uL Normal 4.4-11.0 [facility] Comment on above: Performed By: #### L 501.2450, L500.4050, L100.0100 #### [facility] [address] [place], [address] Carbon dioxide, total [Moles /volume] in Central venous bloodOrdered By: Timoteo Mckenna on 04-27-2025 CO2 [Moles/Vol] 23.2 mmol/L 21.0-32.0 [facility] Chloride assayOrdered By: Melissa Mckenna on 04-27-2025 Chloride [Moles/Vol] 100 mmol/L 98-108 [facility] Comprehensive Metabolic Prof ilon 04-27-2025 Albumin [Mass/Vol] 4.0 g/dL Normal 3.4-4.8 [facility] Comment on above: Performed By: #### L 501.2450, L500.4050, L100.0100 #### [facility] [address] [place], [address] Albumin/Globulin [Mass ratio] 1.2 {ratio} Normal 0.9-2.4 [facility] Comment on above: Performed By: #### L 501.2450, L500.4050, L100.0100 #### [facility] [address] [place], [address] ALK PHOS 65 U/L Normal 40-129 [facility] Comment on above: Performed By: #### L 501.2450, L500.4050, L100.0100 #### [facility] [address] [place], [address] ALT [Catalytic activity/Vol] 15 U/L Normal <=46 [facility] Comment on above: Performed By: #### L 501.2450, L500.4050, L100.0100 #### [facility] [address] [place], [address] AST [Catalytic activity/Vol] 30 U/L Normal <=37 [facility] Comment on above: Result Comment: Hemo lysis present, Results??could be affected. ?? Performed By: #### L 501.2450, L500.4050, L100.0100 #### [facility] [address] [place], [address] Bilirubin [Mass/Vol] 0.75 mg/dL Normal 0.00-1.30 [facility] Comment on above: Performed By: #### L 501.2450, L500.4050, L100.0100 #### [facility] [address] [place], [address] BUN/CRE 14.1 RATIO Normal 10-20 [facility] Comment on above: Performed By: #### L 501.2450, L500.4050, L100.0100 #### [facility] [address] [place], [address] Calcium [Mass/Vol] 9.2 mg/dL Normal 7.6-11.0 [facility] Comment on above: Performed By: #### L 501.2450, L500.4050, L100.0100 #### [facility] [address] [place], [address] Chloride [Moles/Vol] 100 mmol/L Normal 98-108 [facility] Comment on above: Performed By: #### L 501.2450, L500.4050, L100.0100 #### [facility] [address] [place], [address] CO2 [Moles/Vol] 23.2 mmol/L Normal 21.0-32.0 [facility] Comment on above: Performed By: #### L 501.2450, L500.4050, L100.0100 #### [facility] [address] [place], [address] Creatinine [Mass/Vol] 0.90 mg/dL Normal 0.70-1.20 [facility] Comment on above: Performed By: #### L 501.2450, L500.4050, L100.0100 #### [facility] [address] [place], [address] ECRCL 42.74 ml/min Low 50-250 [facility] Comment on above: Performed By: #### L 501.2450, L500.4050, L100.0100 #### [facility] [address] [place], [address] GAP 12 Normal 5-15 [facility] Comment on above: Performed By: #### L 501.2450, L500.4050, L100.0100 #### [facility] [address] [place], [address] GFR/1.73 sq M.predicted among non-blacks MDRD (S/P/Bld) [Vol rate/Area] 82 mL/min/{1.73_m2} Normal >60 [facility] Comment on above: Result Comment: mL/m in/1.73m2 CKD-EPI Creatinine Equation (2020) Performed By: #### L 501.2450, L500.4050, L100.0100 #### [facility] [address] [place], [address] Globulin (S) [Mass/Vol] 3.3 g/dL Normal 2.2-4.2 [facility] Comment on above: Performed By: #### L 501.2450, L500.4050, L100.0100 #### [facility] [address] [place], [address] Glucose [Mass/Vol] 285 mg/dL High 70-99 [facility] Comment on above: Performed By: #### L 501.2450, L500.4050, L100.0100 #### [facility] [address] [place], [address] Potassium [Moles/Vol] 4.2 mmol/L Normal 3.3-5.1 [facility] Comment on above: Result Comment: Hemo lysis present, Results??could be affected. ?? Performed By: #### L 501.2450, L500.4050, L100.0100 #### [facility] [address] [place], [address] Sodium [Moles/Vol] 135 mmol/L Normal 133-145 [facility] Comment on above: Performed By: #### L 501.2450, L500.4050, L100.0100 #### [facility] [address] [place], [address] T PROT 7.3 g/dL Normal 5.9-8.4 [facility] Comment on above: Performed By: #### L 501.2450, L500.4050, L100.0100 #### [facility] [address] [place], [address] Urea nitrogen [Mass/Vol] 13 mg/dL Normal 4-19 [facility] Comment on above: Performed By: #### L 501.2450, L500.4050, L100.0100 #### [facility] [address] [place], [address] Emergency Department Summary on 04-27-2025 Emergency Department Summary [facility] Medical Records Department [address] [place] [address] Emergency Department Summary 04/27/25 MR#: [id number] Acct: [id number] Name: RAJAT GUZMÁN Rep #: [id number] : 1935 89 From: Timoteo Mckenna DO PCP: Dr. John Noel, DO Status:REG ER Location: ED HPI History of [...] a chronic indwelling Rod catheter. He denies fevers or chills or sweats. [facility] Medical History (Reviewed 03/12/25 @ 16:11 by Cynthia Bowen EMPLOYEE BENEFITS COORDINATOR, EMPLOYEE BENEFITS COORDINATOR-C) Non-smoker History of heart attack Presence of [...] Chest pain, precordial Atherosclerotic heart disease of kenaitze coronary artery without angina pectoris Dyspnea Fatigue [...] #10 tab s 12/16/24 Unknown Rx tablet sacubitril 24 mg-valsartan 26 mg 1 tab PO BID #60 tabs 03/14/25 Unk nown Rx tablet (Entresto) cephalexin 500 mg capsule 500 mg PO Q6 #28 CAPSULES 04/27/25 Unknown Rx ondansetron 4 mg disintegrating 4 mg PO Q6H PRN nausea and 5 Unknown Rx tablet vomiting #10 tabs phenazopyridine 200 mg tablet 200 mg PO TID 6 doses #5 tabs 04/02 05/25 Unknown Rx (Pyridium) Allergy/AdvReac Type Severity Reaction Status Date / Time morphine Allergy Intermediate Rash Verified 04/27/25 20:05 zolpidem tartrate (From AdvReac Intermediate CONFUSION Verified 04/27/25 20:05 Ambien) Family History (Reviewed 03/12/25 @ 16:11 by Cynthia Bowen EMPLOYEE BENEFITS COORDINATOR, EMPLOYEE BENEFITS COORDINATOR-C) Mother CAD (coronary artery disease) CVA (cerebral [...] (Reviewed 03/12/25 @ 16:11 by Cynthia Bowen EMPLOYEE BENEFITS COORDINATOR, EMPLOYEE BENEFITS COORDINATOR-C) H/O dilation of urethra Hx of transurethral resection of prostate 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 Normal [facility] Eosinophil percentageOrdered By: Timoteo Mckenna on 04-27-2025 Eosinophils/100 WBC (Bld) 1.0 % 0-5 [facility] Erythrocyte distribution wid th ratioOrdered By: [facility] Mckenna on 04-27-2025 Erythrocyte distribution width (RBC) [Ratio] 13.6 % 11.6-14.6 [facility] Erythrocyte distribution wid th standard deviationOrdered By: Timoteo Mckenna on 04-27-2025 Erythrocyte distribution width (RBC) [Ratio] 43.9 fl 35.1-43.9 [facility] Glomerular filtration rate ( GFR) estimation/1.73 sq m using serum, plasma, or whole bOrdered By: Timoteo Mckenna on 04-27-2025 GFR/1.73 sq M.predicted among non-blacks MDRD (S/P/Bld) [Vol rate/Area] 82 mL/min/{1.73_m2} >60 [facility] Comment on above: mL/min/1.73m2 CKD-EP I Creatinine Equation (2020) Hematocrit Auto (Bld) [Volum e fraction]Ordered By: Timoteo Mckenna on 04-27-2025 Hematocrit (Bld) [Volume fraction] 36.0 % Low 40-54 [facility] Hemoglobin measurementOrdere d By: Timoteo Mckenna on 04-27-2025 Hemoglobin (Bld) [Mass/Vol] 12.2 g/dL Low 13.0-16.5 [facility] Immature granulocytes/100 WB C Auto (Bld)Ordered By: Timoteo Mckenna on 04-27-2025 Immature granulocytes/100 WBC (Bld) 0.400 % 0.0-0.9 [facility] Comment on above: IG% - Immature Granu locytes (promyelocytes, myelocytes and metamyelocytes) > 1% indicates that a LEFT SHIFT is Present. Ketones Test strip Ql (U)Ord ered By: Timoteo Mckenna on 04-27-2025 Ketones Ql (U) 5 mg/dl High Negative [facility] - Chemistry and C hemistry - challengeOrdered By: Timoteo Mckenna on 04-27-2025 AST [Catalytic activity/Vol] 30 U/L <38 [facility] Comment on above: Hemolysis present, R esults could be affected. Lipaseon 04-27-2025 Lipase [Catalytic activity/Vol] 15 U/L Normal 13-75 [facility] Comment on above: Result Comment: Plea se note: LIPASE revised reference range effective 23. New Lipase methodology. Expected to produce lower values than the previous assay method. NEW Reference Range: 13 - 75 U/L Performed By: #### L 501.2450, L500.4050, L100.0100 #### [facility] [address] [place], [address] Lipase measurementOrdered By : Timoteo Mckenna on 04-27-2025 Lipase [Catalytic activity/Vol] 15 U/L 13-75 [facility] Comment on above: Please note:LIPASE r evised reference range effective 23. New Lipase methodology. Expected to produce lower values than the previous assay method. NEW Reference Range: 13 - 75 U/L MCV (mean corpuscular volume ) determinationOrdered By: Timoteo Mckenna on 04-27-2025 MCV (RBC) [Entitic vol] 89.3 fL 80-94 [facility] Mean corpuscular hemoglobin (MCH) determinationOrdered By: Timoteo Mckenna on 04-27-2025 MCH (RBC) [Entitic mass] 30.3 pg 27.0-32.0 [facility] Mean corpuscular hemoglobin concentration (MCHC) determinationOrdered By: Timoteo Mckenna on 04-27-2025 MCHC (RBC) [Mass/Vol] 33.9 g/dL 32-36 [facility] Mean platelet volume determi nationOrdered By: Timoteo Mckenna on 04-27-2025 Platelet mean volume (Bld) [Entitic vol] 11.6 fL 6.2-12.0 [facility] Microscopic analysis of urin e for red blood cells (RBC)Ordered By: Timoteo Mckenna on 04-27-2025 Microscopic analysis of urine for red blood cells (RBC) 0-5 SEEN /hpf 0-5 [facility] Monocyte percentageOrdered B y: Wendy Ungmaryann on 04-27-2025 Monocytes/100 WBC (Bld) 7.4 % 0-10 [facility] Mucus LM Ql (Urine sed)Order ed By: Wendy Ungmaryann on 04-27-2025 Mucus Ql (Urine sed) 0 SEEN /hpf [facility] Neutrophil percentageOrdered By: Rem Ungmaryann on 04-27-2025 Neutrophils/100 WBC (Bld) 71.1 % High 47-70 [facility] Nitrite Test strip Ql (U)Ord ered By: Timoteo Mckenna on 04-27-2025 Nitrite Ql (U) Positive High Negative [facility] Nucleated red blood cell per centageOrdered By: Timoteo Ungmaryann on 04-27-2025 Nucleated RBC/100 WBC (Bld) [Ratio] 0 % 0-5 [facility] Platelet countOrdered By: Melissa Mckenna on 04-27-2025 Platelets (Bld) [#/Vol] 201 10*3/uL 150-450 [facility] Potassium measurement (mass/ volume)Ordered By: Timoteo Mckenna on 04-27-2025 Potassium (Unsp spec) [Mass/Vol] 4.2 mmol/L 3.3-5.1 [facility] Comment on above: Hemolysis present, R esults could be affected. Protein Test strip Ql (U)Ord ered By: Timoteo Mckenna on 04-27-2025 Protein Ql (U) 30 mg/dl High Negative [facility] RBC Auto (Bld) [#/Vol]Ordere d By: Wendy Ungmaryann on 04-27-2025 RBC (Bld) [#/Vol] 4.03 10*6/uL Low 4.6-6.2 [facility] Serum creatinine measurement (mass/volume)Ordered By: Timoteo Mckenna on 04-27-2025 Creatinine [Mass/Vol] 0.90 mg/dL 0.70-1.20 [facility] Serum globulin measurementOr dered By: Timoteo Mckenna on 04-27-2025 Globulin (S) [Mass/Vol] 3.3 g/dL 2.2-4.2 [facility] Serum glucose measurement (m ass/volume)Ordered By: Timoteo Mckenna on 04-27-2025 Glucose [Mass/Vol] 285 mg/dL High 70-99 [facility] Serum or plasma alanine rice otransferase (ALT) measurementOrdered By: Timoteo Mckenna on 04-27-2025 ALT [Catalytic activity/Vol] 15 U/L <47 [facility] Serum or plasma albumin alfonso urement (mass/volume)Ordered By: Timoteo Mckenna on 04-27-2025 Albumin [Mass/Vol] 4.0 g/dL 3.4-4.8 [facility] Serum or plasma albumin/glob ulin mass ratioOrdered By: Timoteo Mckenna on 04-27-2025 Albumin/Globulin [Mass ratio] 1.2 {ratio} 0.9-2.4 [facility] Serum or plasma alkaline rory sphatase measurementOrdered By: Timoteo Mckenna on 04-27-2025 ALP [Catalytic activity/Vol] 65 U/L 40-129 [facility] Serum or plasma calcium alfonso urement (mass/volume)Ordered By: Timoteo Mckenna on 04-27-2025 Calcium [Mass/Vol] 9.2 mg/dL 7.6-11.0 [facility] Serum or plasma urea nitroge n measurement (mass/volume)Ordered By: Timoteo Mckenna on 04-27-2025 Urea nitrogen [Mass/Vol] 13 mg/dL 4-19 [facility] Sodium levelOrdered By: Roxana Mckenna on 04-27-2025 Sodium [Moles/Vol] 135 mmol/L 133-145 [facility] Squamous epithelial cells de tection in urine sediment by light microscopyOrdered By: Timoteo Mckenna on 04-27-2025 Epithelial cells.squamous LM Ql (Urine sed) 0 SEEN /hpf 0-5 [facility] Total proteinOrdered By: Wendy Mckenna on 04-27-2025 Protein [Mass/Vol] 7.3 g/dL 5.9-8.4 [facility] Urinalysis, Completeon 04-27 BACTERIA 2+ /hpf Normal None Seen [facility] Comment on above: Order Comment: URINE SUPPLIES GIVEN,PT UTV. RANGLE Performed By: #### L 500.4050, L100.0100, L101.9900, L501.6710 #### [facility] [address] [place], [address] RBC 0-5 SEEN Normal 0-5 [facility] Comment on above: Order Comment: URINE SUPPLIES GIVEN,PT UTV. RANGLE Performed By: #### L 500.4050, L100.0100, L101.9900, L501.6710 #### [facility] [address] [place], [address] WBC 25-50 SEEN Normal 0-5 [facility] Comment on above: Order Comment: URINE SUPPLIES GIVEN,PT UTV. RANGLE Performed By: #### L 500.4050, L100.0100, L101.9900, L501.6710 #### [facility] [address] [place], [address] EPI,SQUAMOUS 0 SEEN Normal 0-5 [facility] Comment on above: Order Comment: URINE SUPPLIES GIVEN,PT UTV. RANGLE Performed By: #### L 500.4050, L100.0100, L101.9900, L501.6710 #### [facility] [address] [place], [address] Mucus Ql (Urine sed) 0 SEEN Normal [facility] Comment on above: Order Comment: URINE SUPPLIES GIVEN,PT UTV. RANGLE Performed By: #### L 500.4050, L100.0100, L101.9900, L501.6710 #### [facility] [address] [place], [address] Urine clarityOrdered By: Wendy Mckenna on 04-27-2025 Clarity (U) Sl. Cloudy Clear [facility] Urine color determinationOrd ered By: Timoteo Mckenna on 04-27-2025 Color (U) Yellow Yellow [facility] Urine cultureOrdered By: Wendy Mckenna on 04-27-2025 Bacteria identified Cx Nom (U) Escherichia coli Abnormal [facility] Bacteria identified Cx Nom (U) Pseudomonas aeruginosa Abnormal [facility] Bacteria identified Cx Nom (U) Enterococcus gallinarum Abnormal [facility] Urine glucose detectionOrder ed By: Timoteo Mckenna on 04-27-2025 Glucose Ql (U) 1000 mg/dl High Normal [facility] Urine leukocyte esterase det ection by dipstickOrdered By: Timoteo Mckenna on 04-27-2025 Leukocyte esterase Test strip Ql (U) 500 /ul High Negative [facility] Urine pHOrdered By: Timoteo Un gur on 04-27-2025 pH (U) 6.0 [pH] 5.0 - 8.0 [facility] Urine sediment bacteria coun t by microscopy (number/high power field)Ordered By: Timoteo Mckenna on 04-27-2025 Bacteria LM.HPF (Urine sed) [#/Area] 2 /[HPF] None Seen [facility] Urine specific gravity measu rementOrdered By: Timoteo Mckenna on 04-27-2025 Specific gravity (U) [Rel density] 1.015 1.002-1.03 0 [facility] Urine urobilinogen measureme ntOrdered By: Timoteo Mckenna on 04-27-2025 Urobilinogen Ql (U) Normal mg/dl Normal [facility] White blood cell (WBC) count Ordered By: Timoteo Mckenna on 04-27-2025 WBC (Bld) [#/Vol] 9.8 10*3/uL 4.4-11.0 [facility] White blood cell countOrdere d By: Timoteo Mckenna on 04-27-2025 White blood cell count 25-50 SEEN /hpf 0-5 [facility] PSA,Total- Diagnosticon 04-02 PSA, DIAGNOSTIC 0.38 ng/mL Normal 0.00-4.00 [facility] Comment on above: Result Comment: This test [...] values. Performed By: #### L 501.9940 #### [facility] [address] [place], [address] Cardiology Visit Reporton Cardiology Visit Report [facility] [address] [place] [address] OFFICE VISIT Date of Service: 03/12/25 MR#: [id number] Acct: [id number] Name: RAJAT GUZMÁN Rep #: [id number] : 1935 Provider: MORTEZA ortiz Age/Sex: 89/M [place] [facility] [place] Status: Signed HPI HPI History of Present [...] 97 Intake Visit Reasons: 4 M FU Burn Table Operator Required: No Is patient in pain?: No [...] (Reviewed 03/12/25 @ 16:11 by Cynthia Bowen EMPLOYEE BENEFITS COORDINATOR, EMPLOYEE BENEFITS COORDINATOR-C) Non-smoker History of heart attack Presence of [...] Chest pain, precordial Atherosclerotic heart disease of kenaitze coronary artery without angina pectoris Dyspnea Fatigue Hypokalemia Benign prostatic hypertrophy SBO (small bowel obstruction) Surgical History (Reviewed 03/12/25 @ 16:11 by Cynthia Bowen EMPLOYEE BENEFITS COORDINATOR, EMPLOYEE BENEFITS COORDINATOR-C) H/O dilation of urethra Hx of transurethral resection of prostate 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) History of cardiac catheterization Hx of colonoscopy Hx of surgical procedure History of hernia repair History of prostate surgery History of left heart catheterization Family History (Reviewed 03/12/25 @ 16:11 by Cynthia Bowen EMPLOYEE BENEFITS COORDINATOR, EMPLOYEE BENEFITS COORDINATOR-C) Mother CAD (coronary artery disease) CVA (cerebral vascular accident) Myocardial infarction, Onset Age: 67 Hypertension Brother CAD (coronary artery disease) Hypertension Cancer Lung CA Myocardial infarction, Onset Age: 73 Father Myocardial infarction, Onset Age: 77 Daughter Cancer Son Myocardial infarction, Onset Age: 46 Other Cardiomyopathy, ischemic Chronic systolic congestive heart deena (more content not included)... Normal [facility] CRPon 02-05-2025 C-REACTIVE PROT 3.80 mg/L High 0.0-3.0 [facility] Comment on above: Performed By: #### L 500.4050, L100.0100, L101.9900, L501.6710 #### [facility] [address] [place], [place], [address] CRP [Mass/Vol]Ordered By: Nestor Noel on 02-05-2025 C-Reactive Protein Extended Range 3.80 mg/L High 0.0-3.0 [facility] Erythrocyte Sed Rateon 02-05 SED RATE 13 mm/hr Normal 0-20 [facility] Comment on above: Performed By: #### L 500.4050, L100.0100, L101.9900, L501.6710 #### [facility] [address] [place], [place], [address] Erythrocyte sedimentation ra teOrdered By: John Noel on 02-05-2025 ESR (Bld) [Velocity] 13 mm/h 0-20 [facility] Serum or plasma C reactive p rotein measurement (mass/volume)Ordered By: John Noel on 02-05-2025 CRP [Mass/Vol] 3.80 mg/L High 0.0-3.0 [facility] Absolute neutrophil countOrd ered By: Timoteo Mckenna on 12-16-2024 Neutrophils (Bld) [#/Vol] 6.7 10*3/uL 2.0-7.7 [facility] Basic Metabolic Profile (BMP )on 12-16-2024 BUN/CRE 19.0 RATIO Normal 10-20 [facility] Comment on above: Performed By: #### L 500.4050, L100.0100, L101.9900, L501.6710 #### [facility] [address] [place], [address] CA,Total 9.9 mg/dL Normal 8.5-10.1 [facility] Comment on above: Performed By: #### L 500.4050, L100.0100, L101.9900, L501.6710 #### [facility] [address] [place], [address] Chloride [Moles/Vol] 100 mmol/L Normal 98-107 [facility] Comment on above: Performed By: #### L 500.4050, L100.0100, L101.9900, L501.6710 #### [facility] [address] [place], [address] CO2 [Moles/Vol] 27.0 mmol/L Normal 21.0-32.0 [facility] Comment on above: Performed By: #### L 500.4050, L100.0100, L101.9900, L501.6710 #### [facility] [address] [place], [address] Creatinine [Mass/Vol] 0.84 mg/dL Normal 0.70-1.30 [facility] Comment on above: Result Comment: The validity of the calculated GFR GFRAA in patients over 70 years has not been determined. Clinical correlation is essential. Performed By: #### L 500.4050, L100.0100, L101.9900, L501.6710 #### [facility] [address] [place], [address] ECRCL 44.07 ml/min Normal [facility] Comment on above: Performed By: #### L 500.4050, L100.0100, L101.9900, L501.6710 #### [facility] [address] [place], [address] EST GFR - AA 111 mL/min Normal >60 [facility] Comment on above: Result Comment: Afri can Gabonese GFR Calc Performed By: #### L 500.4050, L100.0100, L101.9900, L501.6710 #### [facility] [address] [place], [address] GAP 8 Normal 5-15 [facility] Comment on above: Performed By: #### L 500.4050, L100.0100, L101.9900, L501.6710 #### [facility] [address] [place], [address] GFR/1.73 sq M.predicted among non-blacks MDRD (S/P/Bld) [Vol rate/Area] 92 mL/min/{1.73_m2} Normal >60 [facility] Comment on above: Result Comment: Non- GFR Calc Performed By: #### L 500.4050, L100.0100, L101.9900, L501.6710 #### [facility] [address] [place], [address] Glucose [Mass/Vol] 155 mg/dL High 74-106 [facility] Comment on above: Result Comment: Fast ing Glucose result greater than or equal to 126 mg/dL suggests DIABETES MELLITUS per A.D.A. criteria. Performed By: #### L 500.4050, L100.0100, L101.9900, L501.6710 #### [facility] [address] [place], [address] Potassium [Moles/Vol] 3.8 mmol/L Normal 3.5-5.1 [facility] Comment on above: Performed By: #### L 500.4050, L100.0100, L101.9900, L501.6710 #### [facility] [address] [place], [address] Sodium [Moles/Vol] 135 mmol/L Low 136-145 [facility] Comment on above: Performed By: #### L 500.4050, L100.0100, L101.9900, L501.6710 #### [facility] [address] [place], [address] Urea nitrogen [Mass/Vol] 16 mg/dL Normal 7-18 [facility] Comment on above: Performed By: #### L 500.4050, L100.0100, L101.9900, L501.6710 #### [facility] [address] [place], [address] Basophil percentageOrdered B y: Timoteo Mckenna on 12-16-2024 Basophils/100 WBC (Bld) 0.1 % 0-1 [facility] Bilirubin Test strip Ql (U)O rdered By: Timoteo Mckenna on 12-16-2024 Bilirubin Ql (U) Negative Negative [facility] Blood urea nitrogen (BUN)/cr eatinine ratioOrdered By: Timoteo Mckenna on 12-16-2024 Urea nitrogen/Creatinine [Mass ratio] 19.0 mg/mg 10-20 [facility] CBC W/Diff, Automatedon 12-02 Absolute Lymph 1.31 X10 3/uL Normal 0.83-4.51 [facility] Comment on above: Performed By: #### L 500.4050, L100.0100, L101.9900, L501.6710 #### [facility] [address] [place], [address] Absolute Neut 6.7 X10 3/uL Normal 2.0-7.7 [facility] Comment on above: Performed By: #### L 500.4050, L100.0100, L101.9900, L501.6710 #### [facility] [address] [place], [address] Basophils/100 WBC (Bld) 0.1 % Normal 0-1 [facility] Comment on above: Performed By: #### L 500.4050, L100.0100, L101.9900, L501.6710 #### [facility] [address] [place], [address] Eosinophils/100 WBC (Bld) 0.3 % Normal 0-5 [facility] Comment on above: Performed By: #### L 500.4050, L100.0100, L101.9900, L501.6710 #### [facility] [address] [place], [address] Erythrocyte distribution width (RBC) [Ratio] 13.7 % Normal 11.6-14.6 [facility] Comment on above: Performed By: #### L 500.4050, L100.0100, L101.9900, L501.6710 #### [facility] [address] [place], [address] Hematocrit (Bld) [Volume fraction] 42.5 % Normal 40-54 [facility] Comment on above: Performed By: #### L 500.4050, L100.0100, L101.9900, L501.6710 #### [facility] [address] [place], [address] Hemoglobin (Bld) [Mass/Vol] 13.8 g/dL Normal 13.0-16.5 [facility] Comment on above: Performed By: #### L 500.4050, L100.0100, L101.9900, L501.6710 #### [facility] [address] [place], [address] IG% 0.200 Normal 0.0-0.9 [facility] Comment on above: Result Comment: IG% - Immature Granulocytes (promyelocytes, myelocytes and metamyelocytes) > 1% indicates that a LEFT SHIFT is Present. Performed By: #### L 500.4050, L100.0100, L101.9900, L501.6710 #### [facility] [address] [place], [address] Lymphocytes/100 WBC (Bld) 15.2 % Low 19-41 [facility] Comment on above: Performed By: #### L 500.4050, L100.0100, L101.9900, L501.6710 #### [facility] [address] [place], [address] MCH (RBC) [Entitic mass] 29.2 pg Normal 27.0-32.0 [facility] Comment on above: Performed By: #### L 500.4050, L100.0100, L101.9900, L501.6710 #### [facility] [address] [place], [address] MCHC (RBC) [Mass/Vol] 32.5 g/dL Normal 32-36 [facility] Comment on above: Performed By: #### L 500.4050, L100.0100, L101.9900, L501.6710 #### [facility] [address] [place], [address] MCV (RBC) [Entitic vol] 89.9 fL Normal 80-94 [facility] Comment on above: Performed By: #### L 500.4050, L100.0100, L101.9900, L501.6710 #### [facility] [address] [place], [address] Monocytes/100 WBC (Bld) 6.1 % Normal 0-10 [facility] Comment on above: Performed By: #### L 500.4050, L100.0100, L101.9900, L501.6710 #### [facility] [address] [place], [address] Neutrophils/100 WBC (Bld) 78.1 % High 47-70 [facility] Comment on above: Performed By: #### L 500.4050, L100.0100, L101.9900, L501.6710 #### [facility] [address] [place], [address] Nucleated RBC (Bld) [#/Vol] 0 10*3/uL Normal 0-5 [facility] Comment on above: Performed By: #### L 500.4050, L100.0100, L101.9900, L501.6710 #### [facility] [address] [place], [address] Platelet mean volume (Bld) [Entitic vol] 10.6 fL Normal 6.2-12.0 [facility] Comment on above: Performed By: #### L 500.4050, L100.0100, L101.9900, L501.6710 #### [facility] [address] [place], [address] Platelets (Bld) [#/Vol] 248 10*3/uL Normal 150-450 [facility] Comment on above: Performed By: #### L 500.4050, L100.0100, L101.9900, L501.6710 #### [facility] [address] [place], [address] RBC (Bld) [#/Vol] 4.73 10*6/uL Normal 4.6-6.2 [facility] Comment on above: Performed By: #### L 500.4050, L100.0100, L101.9900, L501.6710 #### [facility] [address] [place], [address] RDW SD 45.1 fl High 35.1-43.9 [facility] Comment on above: Performed By: #### L 500.4050, L100.0100, L101.9900, L501.6710 #### [facility] [address] [place], [address] WBC (Bld) [#/Vol] 8.6 10*3/uL Normal 4.4-11.0 [facility] Comment on above: Performed By: #### L 500.4050, L100.0100, L101.9900, L501.6710 #### [facility] [address] [place], [address] Carbon dioxide measurementOr dered By: Timoteo Mckenna on 12-16-2024 CO2 [Moles/Vol] 27.0 mmol/L 21.0-32.0 [facility] Chloride measurementOrdered By: Timoteo Mckenna on 12-16-2024 Chloride [Moles/Vol] 100 mmol/L 98-107 [facility] Emergency Department Summary on 12-16-2024 Emergency Department Summary [facility] Medical Records Department [address] [place] [address] Emergency Department Summary 12/16/24 MR#: [id number] Acct: [id number] Name: RAJAT GUZMÁN Stacia Rep #: [id number] : 1935 89 From: Timoteo Mckenna DO PCP: Dr. John Noel, DO Status:DEP ER Location: ED HPI History [...] fever at home. He denies urinary symptoms. PFSH PFSH Medical History Non-smoker History of heart [...] Chest pain, precordial Atherosclerotic heart disease of kenaitze coronary artery without angina pectoris Dyspnea Fatigue [...] Denies rh (more content not included)... Normal [facility] Eosinophil percentageOrdered By: Timoteo Mckenna on 12-16-2024 Eosinophils/100 WBC (Bld) 0.3 % 0-5 [facility] Epithelial cells.squamous LM Ql (Urine sed)Ordered By: Timotoe Mckenna on 12-16-2024 Epithelial cells.squamous LM.HPF (Urine sed) [#/Area] 0 /[HPF] 0-5 [facility] Erythrocyte distribution wid th (RBC) [Ratio]Ordered By: Timoteo Mckenna on 12-16-2024 Erythrocyte distribution width (RBC) [Entitic vol] 45.1 fL High 35.1-43.9 [facility] Erythrocyte distribution wid th ratioOrdered By: Wendy Clarisa on 12-16-2024 Erythrocyte distribution width (RBC) [Ratio] 13.7 % 11.6-14.6 [facility] Estimated glomerular filtrat ion rate (GFR) AmericanOrdered By: Timoteo Mckenna on 12-16-2024 Estimated GFR (MDRD) Amer 111 mL/min >60 [facility] Comment on above: GFR Calc Estimation of creatinine laurel aranceOrdered By: Timoteo Mckenna on 12-16-2024 Estimated Creatinine Clearance Calc 44.07 ml/min [facility] Glomerular filtration rate ( GFR) estimationOrdered By: Timoteo Mckenna on 12-16-2024 Estimated GFR (MDRD) Non-Af Amer 92 mL/min >60 [facility] Comment on above: Non- GFR Calc Glucose Ql (U)Ordered By: Melissa Mckenna on 12-16-2024 Urine Glucose (UA) Normal mg/dl Normal [facility] Glucose measurementOrdered B y: Timoteo Mckenna on 12-16-2024 Glucose [Mass/Vol] 155 mg/dL High 74-106 [facility] Comment on above: Fasting Glucose resu lt greater than or equal to 126 mg/dL suggests DIABETES MELLITUS per A.D.A. criteria. Hematocrit Auto (Bld) [Volum e fraction]Ordered By: Timoteo Mckenna on 12-16-2024 Hematocrit (Bld) [Volume fraction] 42.5 % 40-54 [facility] Hemoglobin measurementOrdere d By: Timoteo Mckenna on 12-16-2024 Hemoglobin (Bld) [Mass/Vol] 13.8 g/dL 13.0-16.5 [facility] Immature granulocytes/100 WB C Auto (Bld)Ordered By: Timoteo Mckenna on 12-16-2024 Immature granulocytes/100 WBC (Bld) 0.200 % 0.0-0.9 [facility] Comment on above: IG% - Immature Granu locytes (promyelocytes, myelocytes and metamyelocytes) > 1% indicates that a LEFT SHIFT is Present. Influenza virus A and B and SARS-CoV-2 (COVID-19) and Respiratory syncytial virus RNAOrdered By: Timoteo Mckenna on 12-16-2024 SARS-CoV-2 (COVID-19) RNA MOHIT+probe Ql (Unsp spec) [facility] Ketones Test strip Ql (U)Ord ered By: Timoteo Mckenna on 12-16-2024 Ketones Ql (U) Negative Negative [facility] Lymphocytes Auto (Unsp spec) [#/Vol]Ordered By: Timoteo Mckenna on 12-16-2024 Lymphocytes (Bld) [#/Vol] 1.31 10*3/uL 0.83-4.51 [facility] Lymphocytes/100 WBC Auto (Un sp spec)Ordered By: Timoteo Mckenna on 12-16-2024 Lymphocytes/100 WBC (Bld) 15.2 % Low 19-41 [facility] M100.678on 12-16-2024 M100.678 SARS-CoV-2 (COVID 19 ) Negative INFLUENZA A Negative INFLUENZA B Negative RSV PCR Negative Normal [facility] Comment on above: Performed By: #### L 500.4050, L100.0100, L101.9900, L501.6710 #### [facility] [address] [place] [address]. [place], [place], [id number] MCV (mean corpuscular volume ) determinationOrdered By: Timoteo Mckenna on 12-16-2024 MCV (RBC) [Entitic vol] 89.9 fL 80-94 [facility] Mean corpuscular hemoglobin (MCH) determinationOrdered By: Timoteo Mckenna on 12-16-2024 MCH (RBC) [Entitic mass] 29.2 pg 27.0-32.0 [facility] Mean corpuscular hemoglobin concentration (MCHC) determinationOrdered By: Timoteo Mckenna on 12-16-2024 MCHC (RBC) [Mass/Vol] 32.5 g/dL 32-36 [facility] Mean platelet volume determi nationOrdered By: Timoteo Mckenna on 12-16-2024 Platelet mean volume (Bld) [Entitic vol] 10.6 fL 6.2-12.0 [facility] Microscopic analysis of urin e for red blood cells (RBC)Ordered By: Timoteo Mckenna on 12-16-2024 Urine RBC 0 SEEN /hpf 0-5 [facility] Monocyte percentageOrdered B y: Remus Ungmaryann on 12-16-2024 Monocytes/100 WBC (Bld) 6.1 % 0-10 [facility] Mucus LM Ql (Urine sed)Order ed By: Remus Ungmaryann on 12-16-2024 Mucus Ql (Urine sed) 0 SEEN /hpf [facility] Neutrophil percentageOrdered By: Remus Ungur on 12-16-2024 Neutrophils/100 WBC (Bld) 78.1 % High 47-70 [facility] Nitrite Test strip Ql (U)Ord ered By: Remus Ungmaryann on 12-16-2024 Nitrite Ql (U) Negative Negative [facility] Nucleated red blood cell per centageOrdered By: Rem Ungmaryann on 12-16-2024 Nucleated RBC/100 WBC (Bld) [Ratio] 0 % 0-5 [facility] Platelet countOrdered By: Melissa Mckenna on 12-16-2024 Platelets (Bld) [#/Vol] 248 10*3/uL 150-450 [facility] Potassium measurementOrdered By: Rem Ungmaryann on 12-16-2024 Potassium [Moles/Vol] 3.8 mmol/L 3.5-5.1 [facility] Protein Test strip Ql (U)Ord ered By: Remus Ungmaryann on 12-16-2024 Protein Ql (U) Negative Negative [facility] RBC Auto (Bld) [#/Vol]Ordere d By: Remus Ungmaryann on 12-16-2024 RBC (Bld) [#/Vol] 4.73 10*6/uL 4.6-6.2 [facility] Serum anion gap measurementO rdered By: Remus Ungmaryann on 12-16-2024 Anion gap [Moles/Vol] 8 mmol/L 5-15 [facility] Serum or plasma calcium alfonso urement (mass/volume)Ordered By: Rem Ungmaryann on 12-16-2024 Calcium [Mass/Vol] 9.9 mg/dL 8.5-10.1 [facility] Serum or plasma creatinine m easurement (mass/volume)Ordered By: Remus Ungmaryann on 12-16-2024 Creatinine [Mass/Vol] 0.84 mg/dL 0.70-1.30 [facility] Comment on above: The validity of the calculated GFR & GFRAA in patients over 70 years has not been determined. Clinical correlation is essential. Serum or plasma urea nitroge n measurement (mass/volume)Ordered By: Timoteo Mckenna on 12-16-2024 Urea nitrogen [Mass/Vol] 16 mg/dL 7-18 [facility] Sodium levelOrdered By: Roxana s Clarisa on 12-16-2024 Sodium [Moles/Vol] 135 mmol/L Low 136-145 [facility] Urinalysis, Completeon 12-16 RBC 0 SEEN Normal 0-5 [facility] Comment on above: Order Comment: CLEAN CATCH Performed By: #### L 500.4050, L100.0100, L101.9900, L501.6710 #### [facility] [address] [place] [address]. [place], [place], [id number] Urine blood detectionOrdered By: Timoteo Mckenna on 12-16-2024 Urine Occult Blood Negative Negative [facility] Urine clarityOrdered By: Rem us Clarisa on 12-16-2024 Clarity (U) Clear Clear [facility] Urine color determinationOrd ered By: Timoteo Mckenna on 12-16-2024 Color (U) Straw Yellow [facility] Urine leukocyte esterase det ection by dipstickOrdered By: Timoteo Mckenna on 12-16-2024 Leukocyte esterase Test strip Ql (U) 25 /ul High Negative [facility] Urine pHOrdered By: Timoteo Sotelo gur on 12-16-2024 pH (U) 6.5 [pH] 5.0 - 8.0 [facility] Urine sediment bacteria coun t by microscopy (number/high power field)Ordered By: Timoteo Mckenna on 12-16-2024 Bacteria LM.HPF (Urine sed) [#/Area] 0 /[HPF] None Seen [facility] Urine specific gravity measu rementOrdered By: Timoteo Mckenna on 12-16-2024 Specific gravity (U) [Rel density] 1.010 1.002-1.03 0 [facility] Urobilinogen Ql (U)Ordered B y: Timoteo Mckenna on 12-16-2024 Urine Urobilinogen Normal mg/dl Normal [facility] White blood cell (WBC) count Ordered By: Remus Ungmaryann on 12-16-2024 WBC (Bld) [#/Vol] 8.6 10*3/uL 4.4-11.0 [facility] White blood cell countOrdere d By: Remus Ungur on 12-16-2024 Urine WBC 0 SEEN /hpf 0-5 [facility] C-reactive protein measureme nt by high sensitivity methodOrdered By: John Noel on 12-08-2024 C-Reactive Protein Extended Range < 2.90 mg/L 0.0-3.0 [facility] Comment on above: C-Reactive Protein ( CRP) provides useful information for thediagnosis, therapy and monitoring of inflammatory processesand associated diseases. For the evaluation of Relative Riskfor Cardiovascular Disease, a High Sensitivity CRP (HSCRP)should be ordered. CRPon 12-08-2024 C-REACTIVE PROT < 2.90 Normal 0.0-3.0 [facility] Comment on above: Result Comment: C-Re active Protein (CRP) provides useful information for the diagnosis, therapy and monitoring of inflammatory processes and associated diseases. For the evaluation of Relative Risk for Cardiovascular Disease, a High Sensitivity CRP (HSCRP) should be ordered. Performed By: #### L 500.4050, L100.0100, L101.9900, L501.6710 #### [facility] [address] [place], [address] Erythrocyte Sed Rateon 12-08 SED RATE 8 mm/hr Normal 0-20 [facility] Comment on above: Performed By: #### L 500.4050, L100.0100, L101.9900, L501.6710 #### [facility] [address] [place], [address] Erythrocyte sedimentation ra teOrdered By: John Noel on 12-08-2024 ESR (Bld) [Velocity] 8 mm/h 0-20 [facility] Cardiology Visit Reporton [facility] [address] [place] [address] OFFICE VISIT Date of Service: 11/10/24 MR#: [id number] Acct: [id number] Name: RAJAT GUZMÁN Rep #: [id number] : 1935 Provider: Dr. Timoteo Mullins MD Age/Sex: 89/M Location[place] [facility] [place] Status: Signed HPI HPI History of Present [...] fu PREV AR PT WANTS TO SWITCH Burn Table Operator Required: No Accompanied by: Self Is patient [...] Chest pain, precordial Atherosclerotic heart disease of kenaitze coronary artery without angina pectoris Dyspnea Fatigue [...] Son De (more content not included)... Normal [facility] CBC W/Diff, Automatedon 11-0 Absolute Lymph 1.64 X10 3/uL Normal 0.83-4.51 [facility] Comment on above: Performed By: #### L 500.4050, L100.0100, L101.9900, L501.6710 #### [facility] [address] [place], [address] Absolute Neut 7.8 X10 3/uL High 2.0-7.7 [facility] Comment on above: Performed By: #### L 500.4050, L100.0100, L101.9900, L501.6710 #### [facility] [address] [place], [address] Basophils/100 WBC (Bld) 0.5 % Normal 0-1 [facility] Comment on above: Performed By: #### L 500.4050, L100.0100, L101.9900, L501.6710 #### [facility] [address] [place], [address] Eosinophils/100 WBC (Bld) 2.3 % Normal 0-5 [facility] Comment on above: Performed By: #### L 500.4050, L100.0100, L101.9900, L501.6710 #### [facility] [address] [place], [address] Erythrocyte distribution width (RBC) [Ratio] 14.9 % High 11.6-14.6 [facility] Comment on above: Performed By: #### L 500.4050, L100.0100, L101.9900, L501.6710 #### [facility] [address] [place], [address] Hematocrit (Bld) [Volume fraction] 36.1 % Low 40-54 [facility] Comment on above: Performed By: #### L 500.4050, L100.0100, L101.9900, L501.6710 #### [facility] [address] [place], [address] Hemoglobin (Bld) [Mass/Vol] 11.5 g/dL Low 13.0-16.5 [facility] Comment on above: Performed By: #### L 500.4050, L100.0100, L101.9900, L501.6710 #### [facility] [address] [place], [address] IG% 0.400 Normal 0.0-0.9 [facility] Comment on above: Result Comment: IG% - Immature Granulocytes (promyelocytes, myelocytes and metamyelocytes) > 1% indicates that a LEFT SHIFT is Present. Performed By: #### L 500.4050, L100.0100, L101.9900, L501.6710 #### [facility] [address] [place], [address] Lymphocytes/100 WBC (Bld) 16.1 % Low 19-41 [facility] Comment on above: Performed By: #### L 500.4050, L100.0100, L101.9900, L501.6710 #### [facility] [address] [place], [address] MCH (RBC) [Entitic mass] 29.3 pg Normal 27.0-32.0 [facility] Comment on above: Performed By: #### L 500.4050, L100.0100, L101.9900, L501.6710 #### [facility] [address] [place], [address] MCHC (RBC) [Mass/Vol] 31.9 g/dL Low 32-36 [facility] Comment on above: Performed By: #### L 500.4050, L100.0100, L101.9900, L501.6710 #### [facility] [address] [place], [address] MCV (RBC) [Entitic vol] 91.9 fL Normal 80-94 [facility] Comment on above: Performed By: #### L 500.4050, L100.0100, L101.9900, L501.6710 #### [facility] [address] [place], [address] Monocytes/100 WBC (Bld) 4.5 % Normal 0-10 [facility] Comment on above: Performed By: #### L 500.4050, L100.0100, L101.9900, L501.6710 #### [facility] [address] [place], [address] Neutrophils/100 WBC (Bld) 76.2 % High 47-70 [facility] Comment on above: Performed By: #### L 500.4050, L100.0100, L101.9900, L501.6710 #### [facility] [address] [place], [address] Nucleated RBC (Bld) [#/Vol] 0 10*3/uL Normal 0-5 [facility] Comment on above: Performed By: #### L 500.4050, L100.0100, L101.9900, L501.6710 #### [facility] [address] [place], [address] Platelet mean volume (Bld) [Entitic vol] 11.6 fL Normal 6.2-12.0 [facility] Comment on above: Performed By: #### L 500.4050, L100.0100, L101.9900, L501.6710 #### [facility] [address] [place], [address] Platelets (Bld) [#/Vol] 247 10*3/uL Normal 150-450 [facility] Comment on above: Performed By: #### L 500.4050, L100.0100, L101.9900, L501.6710 #### [facility] Laboratory [address] [place], [address] RBC (Bld) [#/Vol] 3.93 10*6/uL Low 4.6-6.2 [facility] Comment on above: Performed By: #### L 500.4050, L100.0100, L101.9900, L501.6710 #### [facility] [address] [place], [address] RDW SD 50.4 fl High 35.1-43.9 [facility] Comment on above: Performed By: #### L 500.4050, L100.0100, L101.9900, L501.6710 #### [facility] [address] [place], [address] WBC (Bld) [#/Vol] 10.2 10*3/uL Normal 4.4-11.0 [facility] Comment on above: Performed By: #### L 500.4050, L100.0100, L101.9900, L501.6710 #### [facility] [address] [place], [address] CRPon 09-07-2024 C-REACTIVE PROT 6.91 mg/L High 0.0-3.0 [facility] Comment on above: Result Comment: C-Re active Protein (CRP) provides useful information for the diagnosis, therapy and monitoring of inflammatory processes and associated diseases. For the evaluation of Relative Risk for Cardiovascular Disease, a High Sensitivity CRP (HSCRP) should be ordered. Performed By: #### L 500.4050, L100.0100, L101.9900, L501.6710 #### [facility] [address] [place], [address] Comprehensive Metabolic Prof ilon 09-07-2024 Albumin [Mass/Vol] 3.7 g/dL Normal 3.2-5.0 [facility] Comment on above: Performed By: #### L 500.4050, L100.0100, L101.9900, L501.6710 #### [facility] [address] [place], [address] Albumin/Globulin [Mass ratio] 0.9 {ratio} Normal 0.9-2.4 [facility] Comment on above: Performed By: #### L 500.4050, L100.0100, L101.9900, L501.6710 #### [facility] [address] [place], [address] ALK P 72 U/L Normal 45-117 [facility] Comment on above: Performed By: #### L 500.4050, L100.0100, L101.9900, L501.6710 #### [facility] [address] [place], [address] ALT [Catalytic activity/Vol] 19 U/L Normal 16-61 [facility] Comment on above: Performed By: #### L 500.4050, L100.0100, L101.9900, L501.6710 #### [facility] [address] [place], [address] AST [Catalytic activity/Vol] 17 U/L Normal 15-37 [facility] Comment on above: Performed By: #### L 500.4050, L100.0100, L101.9900, L501.6710 #### [facility] [address] [place], [address] Bilirubin [Mass/Vol] 0.80 mg/dL Normal 0.20-1.00 [facility] Comment on above: Result Comment: For patients on eltrombopag therapy, use of Dimension [place] TBIL is not recommended. Performed By: #### L 500.4050, L100.0100, L101.9900, L501.6710 #### [facility] [address] [place], [address] BUN/CRE 19.6 RATIO Normal 10-20 [facility] Comment on above: Performed By: #### L 500.4050, L100.0100, L101.9900, L501.6710 #### [facility] [address] [place], [address] CA,Total 8.7 mg/dL Normal 8.5-10.1 [facility] Comment on above: Performed By: #### L 500.4050, L100.0100, L101.9900, L501.6710 #### [facility] [address] [place], [address] Chloride [Moles/Vol] 102 mmol/L Normal 98-107 [facility] Comment on above: Performed By: #### L 500.4050, L100.0100, L101.9900, L501.6710 #### [facility] [address] [place], [address] CO2 [Moles/Vol] 31.0 mmol/L Normal 21.0-32.0 [facility] Comment on above: Performed By: #### L 500.4050, L100.0100, L101.9900, L501.6710 #### [facility] [address] [place], [address] Creatinine [Mass/Vol] 0.87 mg/dL Normal 0.70-1.30 [facility] Comment on above: Result Comment: The validity of the calculated GFR GFRAA in patients over 70 years has not been determined. Clinical correlation is essential. Performed By: #### L 500.4050, L100.0100, L101.9900, L501.6710 #### [facility] [address] [place], [address] EST GFR - AA 107 mL/min Normal >60 [facility] Comment on above: Result Comment: Afri can Gabonese GFR Calc Performed By: #### L 500.4050, L100.0100, L101.9900, L501.6710 #### [facility] [address] [place], [address] GAP 5 Normal 5-15 [facility] Comment on above: Performed By: #### L 500.4050, L100.0100, L101.9900, L501.6710 #### [facility] [address] [place], [address] GFR/1.73 sq M.predicted among non-blacks MDRD (S/P/Bld) [Vol rate/Area] 88 mL/min/{1.73_m2} Normal >60 [facility] Comment on above: Result Comment: Non- GFR Calc Performed By: #### L 500.4050, L100.0100, L101.9900, L501.6710 #### [facility] [address] [place], [address] Globulin (S) [Mass/Vol] 4.1 g/dL Normal 2.2-4.2 [facility] Comment on above: Performed By: #### L 500.4050, L100.0100, L101.9900, L501.6710 #### [facility] [address] [place], [address] Glucose [Mass/Vol] 128 mg/dL High 74-106 [facility] Comment on above: Result Comment: Fast ing Glucose result greater than or equal to 126 mg/dL suggests DIABETES MELLITUS per A.D.A. criteria. Performed By: #### L 500.4050, L100.0100, L101.9900, L501.6710 #### [facility] [address] [place], [address] Potassium [Moles/Vol] 3.1 mmol/L Low 3.5-5.1 [facility] Comment on above: Performed By: #### L 500.4050, L100.0100, L101.9900, L501.6710 #### [facility] [address] [place], [address] Sodium [Moles/Vol] 139 mmol/L Normal 136-145 [facility] Comment on above: Performed By: #### L 500.4050, L100.0100, L101.9900, L501.6710 #### [facility] [address] [place], [address] T PROT 7.8 g/dL Normal 6.4-8.2 [facility] Comment on above: Performed By: #### L 500.4050, L100.0100, L101.9900, L501.6710 #### [facility] [address] [place], [address] Urea nitrogen [Mass/Vol] 17 mg/dL Normal 7-18 [facility] Comment on above: Performed By: #### L 500.4050, L100.0100, L101.9900, L501.6710 #### [facility] [address] [place], [address] Erythrocyte Sed Rateon 09-07 SED RATE 20 mm/hr Normal 0-20 [facility] Comment on above: Performed By: #### L 500.4050, L100.0100, L101.9900, L501.6710 #### [facility] [address] [place], [address] Testosterone, Serum Totalon 09-07-2024 Testosterone [Mass/Vol] ng/dL Normal [facility] Comment on above: Result Comment: CENT RAL 90% REFERENCE RANGES MALE AGE <50 197.44 - 669.58 ng/dL MALE AGE > or = 50 187.72 - 684.19 ng/dL FEMALE AGE <50 8.38 - 35.01 ng/dL FEMALE AGE > or = 50 <7.00 - 35.92 ng/dL Effective as of 05/27/21 Performed By: #### L 501.9940 #### [facility] [address] [place], [place], [address] Thyroid Stim Hormone (TSH)on 09-07-2024 TSH 0.861 uIU/mL Normal 0.358-3.74 0 [facility] Comment on above: Performed By: #### L 500.4050, L100.0100, L101.9900, L501.6710 #### [facility] [address] [place], [address] CRPon 08-03-2024 C-REACTIVE PROT 8.47 mg/L High 0.0-3.0 [facility] Comment on above: Result Comment: C-Re active Protein (CRP) provides useful information for the diagnosis, therapy and monitoring of inflammatory processes and associated diseases. For the evaluation of Relative Risk for Cardiovascular Disease, a High Sensitivity CRP (HSCRP) should be ordered. Performed By: #### L 500.4050, L100.0100, L101.9900, L501.6710 #### [facility] [address] [place], [address] Erythrocyte Sed Rateon 08-03 SED RATE 12 mm/hr Normal 0-20 [facility] Comment on above: Performed By: #### L 500.4050, L100.0100, L101.9900, L501.6710 #### [facility] [address] [place], [address] CT ABDOMEN PELVIS W IV CONTR Nubia 07-10-2024 CT ABDOMEN PELVIS W IV CONTRAST Interpreted By: Sharan Recio, STUDY: CT ABDOMEN PELVIS W IV CONTRAST; 07/10/2024 3:18 pm INDICATION: Signs/Symptoms:PROSTATE CANCER. ,C61 Malignant neoplasm of prostate (Multi) COMPARISON: None. ACCESSION NUMBER(S): [id number] ORDERING CLINICIAN: ASMITA ZAMBRANO TECHNIQUE: CT of [...] Sharan Recio 07/11/2024 6:02 PM Dictation workstation: [id number] [facility] Serum Creatinine AND GFRon 0 07-06-2024 Creatinine [Mass/Vol] 1.03 mg/dL Normal 0.70-1.30 [facility] Comment on above: Result Comment: The validity of the calculated GFR GFRAA in patients over 70 years has not been determined. Clinical correlation is essential. Performed By: #### L 501.1105 #### [facility] [address] [place], [place], [address] EST GFR - AA 88 mL/min Normal >60 [facility] Comment on above: Result Comment: Afri can Gabonese GFR Calc Performed By: #### L 501.1105 #### [facility] [address] [place], [place], [address] GFR/1.73 sq M.predicted among non-blacks MDRD (S/P/Bld) [Vol rate/Area] 72 mL/min/{1.73_m2} Normal >60 [facility] Comment on above: Result Comment: Non- GFR Calc Performed By: #### L 501.1105 #### [facility] [address] [place], [place], [address] Surgical pathology studyon 0 06-14-2024 Surgical pathology study Pathology report.total SEE COMMENT Surgical Pathology Case: [id number] Authorizing Provider: Asmita Zambrano MD Collected: 06/14/2024 1245 Ordering Location: [facility] Received: 06/14/2024 1248 Pathologist: Moncho [...] prostatic origin. PIN4 immunostain cocktail (including p63, [id number] and AMACR) shows loss of basal cells, confirming the diagnosis of adenocarcinoma. B. 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 SEE NOTE. Note: PIN4 immunostain cocktail (including p63, [id number] and AMACR) shows loss of basal cells, [...] is submitted in toto in two cassettes. [facility] AP ASR DISCLAIMER One or more of the reagents used to perform assays on this specimen MAY have contained components considered to be analyte specific reagents (ASR's). ASR's have not been cleared or approved by the U.S. Food and Drug Administration. These assays were developed and their performance characteristics determined by the Department of Pathology at [facility]. The FDA does not require this test to go through premarket FDA review. This test is used for clinical purposes. It should not be regarded as investigational or for research. This laboratory is certified under the Clinical Laboratory Improvement Amendments (CLIA) as qualified to perform high complexity clinical laboratory testing. The assays were performed with appropriate positive and negative controls which stained appropriately. [facility] Urine Cultureon 06-03-2024 UR Copy of report sent to Infection Control Printer [id number] 06/03/24 0721 BLUCAS. ESBL Escherichia coli [place] Count >100,000 MARKER A ESBL producing Organism [...] S Cefuroxime Islt ALEX >=64 R Normal [facility] Comment on above: Performed By: #### L 500.4050, L100.0100, L101.9900, L501.6710 #### [facility] Laboratory [address] [place], [address] CBC W/Diff, Automatedon 07-3 0-2023 Absolute Lymph 1.36 X10 3/uL Normal 0.83-4.51 [facility] Comment on above: Performed By: #### L 500.4050, L100.0100, L101.9900, L501.6710 #### [facility] [address] [place], [address] Absolute Neut 5.8 X10 3/uL Normal 2.0-7.7 [facility] Comment on above: Performed By: #### L 500.4050, L100.0100, L101.9900, L501.6710 #### [facility] [address] [place], [address] Basophils/100 WBC (Bld) 0.5 % Normal 0-1 [facility] Comment on above: Performed By: #### L 500.4050, L100.0100, L101.9900, L501.6710 #### [facility] Laboratory [address] [place], [address] Eosinophils/100 WBC (Bld) 0.1 % Normal 0-5 [facility] Comment on above: Performed By: #### L 500.4050, L100.0100, L101.9900, L501.6710 #### [facility] [address] [place], [address] Erythrocyte distribution width (RBC) [Ratio] 14.0 % Normal 11.6-14.6 [facility] Comment on above: Performed By: #### L 500.4050, L100.0100, L101.9900, L501.6710 #### [facility] [address] [place], [address] Hematocrit (Bld) [Volume fraction] 35.5 % Low 40-54 [facility] Comment on above: Performed By: #### L 500.4050, L100.0100, L101.9900, L501.6710 #### [facility] [address] [place], [address] Hemoglobin (Bld) [Mass/Vol] 11.5 g/dL Low 13.0-16.5 [facility] Comment on above: Performed By: #### L 500.4050, L100.0100, L101.9900, L501.6710 #### [facility] [address] [place], [address] IG% 0.400 Normal 0.0-0.9 [facility] Comment on above: Result Comment: IG% - Immature Granulocytes (promyelocytes, myelocytes and metamyelocytes) > 1% indicates that a LEFT SHIFT is Present. Performed By: #### L 500.4050, L100.0100, L101.9900, L501.6710 #### [facility] [address] [place], [address] Lymphocytes/100 WBC (Bld) 16.6 % Low 19-41 [facility] Comment on above: Performed By: #### L 500.4050, L100.0100, L101.9900, L501.6710 #### [facility] [address] [place], [address] MCH (RBC) [Entitic mass] 28.6 pg Normal 27.0-32.0 [facility] Comment on above: Performed By: #### L 500.4050, L100.0100, L101.9900, L501.6710 #### [facility] [address] [place], [address] MCHC (RBC) [Mass/Vol] 32.4 g/dL Normal 32-36 [facility] Comment on above: Performed By: #### L 500.4050, L100.0100, L101.9900, L501.6710 #### [facility] [address] [place], [address] MCV (RBC) [Entitic vol] 88.3 fL Normal 80-94 [facility] Comment on above: Performed By: #### L 500.4050, L100.0100, L101.9900, L501.6710 #### [facility] [address] [place], [address] Monocytes/100 WBC (Bld) 12.1 % High 0-10 [facility] Comment on above: Performed By: #### L 500.4050, L100.0100, L101.9900, L501.6710 #### [facility] [address] [place], [address] Neutrophils/100 WBC (Bld) 70.3 % High 47-70 [facility] Comment on above: Performed By: #### L 500.4050, L100.0100, L101.9900, L501.6710 #### [facility] [address] [place], [address] Nucleated RBC (Bld) [#/Vol] 0 10*3/uL Normal 0-5 [facility] Comment on above: Performed By: #### L 500.4050, L100.0100, L101.9900, L501.6710 #### [facility] [address] [place], [address] Platelet mean volume (Bld) [Entitic vol] 12.4 fL High 6.2-12.0 [facility] Comment on above: Performed By: #### L 500.4050, L100.0100, L101.9900, L501.6710 #### [facility] [address] [place], [address] Platelets (Bld) [#/Vol] 214 10*3/uL Normal 150-450 [facility] Comment on above: Performed By: #### L 500.4050, L100.0100, L101.9900, L501.6710 #### [facility] [address] [place], [address] RBC (Bld) [#/Vol] 4.02 10*6/uL Low 4.6-6.2 [facility] Comment on above: Performed By: #### L 500.4050, L100.0100, L101.9900, L501.6710 #### [facility] [address] [place], [address] RDW SD 45.4 fl High 35.1-43.9 [facility] Comment on above: Performed By: #### L 500.4050, L100.0100, L101.9900, L501.6710 #### [facility] [address] [place], [address] WBC (Bld) [#/Vol] 8.2 10*3/uL Normal 4.4-11.0 [facility] Comment on above: Performed By: #### L 500.4050, L100.0100, L101.9900, L501.6710 #### [facility] [address] [place], [address] CRPon 05-30-2024 C-REACTIVE PROT 97.30 mg/L High 0.0-3.0 [facility] Comment on above: Order Comment: URINE SUPPLIES GIVEN,PT UTV. RANGLE Result Comment: C-Re active Protein (CRP) provides useful information for the diagnosis, therapy and monitoring of inflammatory processes and associated diseases. For the evaluation of Relative Risk for Cardiovascular Disease, a High Sensitivity CRP (HSCRP) should be ordered. Performed By: #### L 500.4050, L100.0100, L101.9900, L501.6710 #### [facility] [address] [place], [address] Comprehensive Metabolic Prof ilon 05-30-2024 Albumin [Mass/Vol] 3.0 g/dL Low 3.2-5.0 [facility] Comment on above: Order Comment: URINE SUPPLIES GIVEN,PT UTV. RANGLE Performed By: #### L 500.4050, L100.0100, L101.9900, L501.6710 #### [facility] [address] [place], [address] Albumin/Globulin [Mass ratio] 0.7 {ratio} Low 0.9-2.4 [facility] Comment on above: Order Comment: URINE SUPPLIES GIVEN,PT UTV. RANGLE Performed By: #### L 500.4050, L100.0100, L101.9900, L501.6710 #### [facility] [address] [place], [address] ALK P 63 U/L Normal 45-117 [facility] Comment on above: Order Comment: URINE SUPPLIES GIVEN,PT UTV. RANGLE Performed By: #### L 500.4050, L100.0100, L101.9900, L501.6710 #### [facility] [address] [place], [address] ALT [Catalytic activity/Vol] 11 U/L Low 16-61 [facility] Comment on above: Order Comment: URINE SUPPLIES GIVEN,PT UTV. RANGLE Performed By: #### L 500.4050, L100.0100, L101.9900, L501.6710 #### [facility] [address] [place], [address] AST [Catalytic activity/Vol] 24 U/L Normal 15-37 [facility] Comment on above: Order Comment: URINE SUPPLIES GIVEN,PT UTV. RANGLE Performed By: #### L 500.4050, L100.0100, L101.9900, L501.6710 #### [facility] [address] [place], [address] Bilirubin [Mass/Vol] 1.60 mg/dL High 0.20-1.00 [facility] Comment on above: Order Comment: URINE SUPPLIES GIVEN,PT UTV. RANGLE Result Comment: For patients on eltrombopag therapy, use of Dimension [place] TBIL is not recommended. Performed By: #### L 500.4050, L100.0100, L101.9900, L501.6710 #### [facility] [address] [place], [address] BUN/CRE 18.2 RATIO Normal 10-20 [facility] Comment on above: Order Comment: URINE SUPPLIES GIVEN,PT UTV. RANGLE Performed By: #### L 500.4050, L100.0100, L101.9900, L501.6710 #### [facility] [address] [place], [address] CA,Total 8.6 mg/dL Normal 8.5-10.1 [facility] Comment on above: Order Comment: URINE SUPPLIES GIVEN,PT UTV. RANGLE Performed By: #### L 500.4050, L100.0100, L101.9900, L501.6710 #### [facility] [address] [place], [address] Chloride [Moles/Vol] 102 mmol/L Normal 98-107 [facility] Comment on above: Order Comment: URINE SUPPLIES GIVEN,PT UTV. RANGLE Performed By: #### L 500.4050, L100.0100, L101.9900, L501.6710 #### [facility] [address] [place], [address] CO2 [Moles/Vol] 23.0 mmol/L Normal 21.0-32.0 [facility] Comment on above: Order Comment: URINE SUPPLIES GIVEN,PT UTV. RANGLE Performed By: #### L 500.4050, L100.0100, L101.9900, L501.6710 #### [facility] [address] [place], [address] Creatinine [Mass/Vol] 1.21 mg/dL Normal 0.70-1.30 [facility] Comment on above: Order Comment: URINE SUPPLIES GIVEN,PT UTV. RANGLE Result Comment: The validity of the calculated GFR GFRAA in patients over 70 years has not been determined. Clinical correlation is essential. Performed By: #### L 500.4050, L100.0100, L101.9900, L501.6710 #### [facility] [address] [place], [address] EST GFR - AA 73 mL/min Normal >60 [facility] Comment on above: Order Comment: URINE SUPPLIES GIVEN,PT UTV. RANGLE Result Comment: Afri can Gabonese GFR Calc Performed By: #### L 500.4050, L100.0100, L101.9900, L501.6710 #### [facility] [address] [place], [address] GAP 10 Normal 5-15 [facility] Comment on above: Order Comment: URINE SUPPLIES GIVEN,PT UTV. RANGLE Performed By: #### L 500.4050, L100.0100, L101.9900, L501.6710 #### [facility] [address] [place], [address] GFR/1.73 sq M.predicted among non-blacks MDRD (S/P/Bld) [Vol rate/Area] 60 mL/min/{1.73_m2} Normal >60 [facility] Comment on above: Order Comment: URINE SUPPLIES GIVEN,PT UTV. RANGLE Result Comment: Non- GFR Calc Performed By: #### L 500.4050, L100.0100, L101.9900, L501.6710 #### [facility] [address] [place], [address] Globulin (S) [Mass/Vol] 4.4 g/dL High 2.2-4.2 [facility] Comment on above: Order Comment: URINE SUPPLIES GIVEN,PT UTV. RANGLE Performed By: #### L 500.4050, L100.0100, L101.9900, L501.6710 #### [facility] [address] [place], [address] Glucose [Mass/Vol] 137 mg/dL High 74-106 [facility] Comment on above: Order Comment: URINE SUPPLIES GIVEN,PT UTV. RANGLE Result Comment: Fast ing Glucose result greater than or equal to 126 mg/dL suggests DIABETES MELLITUS per A.D.A. criteria. Performed By: #### L 500.4050, L100.0100, L101.9900, L501.6710 #### [facility] [address] [place], [address] Potassium [Moles/Vol] 3.1 mmol/L Low 3.5-5.1 [facility] Comment on above: Order Comment: URINE SUPPLIES GIVEN,PT UTV. RANGLE Performed By: #### L 500.4050, L100.0100, L101.9900, [id number] #### [facility] [address] [place], [address] Sodium [Moles/Vol] 135 mmol/L Low 136-145 [facility] Comment on above: Order Comment: URINE SUPPLIES GIVEN,PT UTV. RANGLE Performed By: #### L 500.4050, L100.0100, L101.9900, [id number] #### [facility] [address] [place], [address] T PROT 7.4 g/dL Normal 6.4-8.2 [facility] Comment on above: Order Comment: URINE SUPPLIES GIVEN,PT UTV. RANGLE Performed By: #### L 500.4050, L100.0100, L101.9900, [id number] #### [facility] [address] [place], [address] Urea nitrogen [Mass/Vol] 22 mg/dL High 7-18 [facility] Comment on above: Order Comment: URINE SUPPLIES GIVEN,PT UTV. RANGLE Performed By: #### L 500.4050, L100.0100, L101.9900, [id number] #### [facility] [address] [place], [address] Erythrocyte Sed Rateon 05-30 SED RATE 18 mm/hr Normal 0-20 [facility] Comment on above: Performed By: #### L 500.4050, L100.0100, L101.9900, L501.6710 #### [facility] [address] [place], [address] Cardiology Visit Reporton Cardiology Visit Report [facility] [address] [place] [address] OFFICE VISIT Date of Service: 05/23/24 MR#: [id number] Acct: [id number] Name: RAMIREZRAJAT Rep #: [id number] : 1935 Provider: MORTEZA frazier Age/Sex: 89/M Location[place] [facility] [place] Status: Signed [facility] History of Present Illness Details: This is [...] NIBP Intake Visit Reasons: 6 M FU Burn Table Operator Required: No Is patient in pain?: No [...] Chest pain, precordial Atherosclerotic heart disease of [place] coronary artery without angina pectoris Dyspnea Fatigue [...] Never smo (more content not included)... Normal [facility] Basophil percentageOrdered B y: John Noel on 11-26-2023 Chloride [Moles/Vol] 105 mmol/L 98-[address] [facility] Glucose [Mass/Vol] 102 mg/dL 74-106 [facility] Comment on above: Fasting Glucose resu lt from 100 to 125 mg/dL suggests IMPAIRED HOMEOSTASIS per A.D.A. criteria. Potassium [Moles/Vol] 4.0 mmol/L 3.5-5.1 [facility] Sodium [Moles/Vol] 137 mmol/L 136-145 [facility] - Chemistry and C hemistry - challengeOrdered By: John Noel on 11-26-2023 CO2 [Moles/Vol] 26.0 mmol/L 21.0-32.0 [facility] Magnesium [Mass/Vol] 2.4 mg/dL 1.6-2.6 [facility] Urea nitrogen/Creatinine [Mass ratio] 16.8 mg/mg 10-20 [facility] No Panel InformationOrdered By: John Noel on 11-26-2023 Estimated GFR (MDRD) Amer 112 mL/min >60 [facility] Comment on above: GFR Calc Estimated GFR (MDRD) Non-Af Amer 93 mL/min >60 [facility] Comment on above: Non- GFR Calc Serum or plasma calcium alfonso urement (mass/volume)Ordered By: John Noel on 11-26-2023 Calcium [Mass/Vol] 9.1 mg/dL 8.5-10.1 [facility] Serum or plasma creatinine m easurement (mass/volume)Ordered By: John Noel on 11-26-2023 Creatinine [Mass/Vol] 0.83 mg/dL 0.70-1.30 [facility] Comment on above: The validity of the calculated GFR & GFRAA in patients over 70 years has not been determined. Clinical correlation is essential. Serum or plasma urea nitroge n measurement (mass/volume)Ordered By: John Noel on 11-26-2023 Urea nitrogen [Mass/Vol] 14 mg/dL 7-18 [facility] Thin prep Papanicolaou smear with manual screeningOrdered By: John Noel on 11-26-2023 Thin prep Papanicolaou smear with manual screening 6 5-15 [facility] INR in Blood by Coagulation assayOrdered By: Zacarias Valdes on 10-12-2023 INR Coag (Bld) [Relative time] 1.0 {INR} [facility] - CoagulationOrde red By: Zacarias Valdes on 10-12-2023 aPTT Coag (Bld) [Time] 28.7 s 24.1-36.2 [facility] PT Coag (PPP) [Time] 12.9 s 11.7-14.9 [facility] Culture, urineOrdered By: Nestor Noel on 09-15-2023 Bacteria identified Cx Nom (U) GPC Poss Enterococcus sp [facility] Basophil percentageOrdered B y: Manisha Varela on 09-06-2023 Chloride [Moles/Vol] 108 mmol/L 98-107 [facility] Glucose [Mass/Vol] 200 mg/dL 74-106 [facility] Comment on above: Glucose result great er than or equal to 200 mg/dLsuggests DIABETES MELLITUS per A.D.A. criteria. Potassium [Moles/Vol] 3.3 mmol/L 3.5-5.1 [facility] Sodium [Moles/Vol] 139 mmol/L 136-145 [facility] - Chemistry and C hemistry - challengeOrdered By: Manisha Varela on 09-06-2023 CO2 [Moles/Vol] 24.0 mmol/L 21.0-32.0 [facility] Urea nitrogen/Creatinine [Mass ratio] 23.3 mg/mg 10-20 [facility] No Panel InformationOrdered By: Manisha Varela on 09-06-2023 Estimated Creatinine Clearance Calc 40.32 ml/min [facility] Estimated GFR (MDRD) Amer 102 mL/min >60 [facility] Comment on above: GFR Calc Estimated GFR (MDRD) Non-Af Amer 84 mL/min >60 [facility] Comment on above: Non- GFR Calc Serum or plasma calcium alfonso urement (mass/volume)Ordered By: Manisha Varela on 09-06-2023 Calcium [Mass/Vol] 8.2 mg/dL 8.5-10.1 [facility] Serum or plasma creatinine m easurement (mass/volume)Ordered By: Manisha Varela on 09-06-2023 Creatinine [Mass/Vol] 0.90 mg/dL 0.70-1.30 [facility] Comment on above: The validity of the calculated GFR & GFRAA in patients over 70 years has not been determined. Clinical correlation is essential. Serum or plasma urea nitroge n measurement (mass/volume)Ordered By: Manisha Varela on 09-06-2023 Urea nitrogen [Mass/Vol] 21 mg/dL 7-18 [facility] Thin prep Papanicolaou smear with manual screeningOrdered By: Manisha Varela on 09-06-2023 Thin prep Papanicolaou smear with manual screening 7 5-15 [facility] Absolute lymphocyte countOrd ered By: Manisha Varela on 09-05-2023 Lymphocytes Auto (Unsp spec) [#/Vol] 1.75 10*3/uL 0.83-4.51 [facility] Basophil percentageOrdered B y: Manisha Varela on 09-05-2023 Basophils/100 WBC (Bld) 0.5 % 0-1 [facility] Chloride [Moles/Vol] 106 mmol/L 98-107 [facility] Eosinophils/100 WBC (Bld) 1.9 % 0-5 [facility] Glucose [Mass/Vol] 64 mg/dL 74-106 [facility] Neutrophils (Bld) [#/Vol] 5.3 10*3/uL 2.0-7.7 [facility] Neutrophils/100 WBC (Bld) 64.8 % 47-70 [facility] Potassium [Moles/Vol] 4.0 mmol/L 3.5-5.1 [facility] Sodium [Moles/Vol] 137 mmol/L 136-145 [facility] WBC (Bld) [#/Vol] 8.2 10*3/uL 4.4-11.0 [facility] Blood erythrocytes count (nu mber/volume)Ordered By: Manisha Varela on 09-05-2023 RBC (Bld) [#/Vol] 3.50 10*6/uL 4.6-6.2 [facility] Blood hemoglobin measurement (mass/volume)Ordered By: Manisha Varela on 09-05-2023 Hemoglobin (Bld) [Mass/Vol] 10.3 g/dL 13.0-16.5 [facility] Blood lymphocytes/100 leukoc ytesOrdered By: Manisha Varela on 09-05-2023 Lymphocytes/100 WBC (Bld) 21.3 % 19-41 [facility] Blood monocytes/100 leukocyt esOrdered By: Manisha Varela on 09-05-2023 Monocytes/100 WBC (Bld) 11.3 % 0-10 [facility] Blood platelet mean volumeOr dered By: Manisha Varela on 09-05-2023 Platelet mean volume (Bld) [Entitic vol] 11.8 fL 6.2-12.0 [facility] Determination of erythrocyte mean corpuscular volume (MCV)Ordered By: Manisha Varela on 09-05-2023 MCV (RBC) [Entitic vol] 93.4 fL 80-94 [facility] Hematocrit Auto (Bld) [Volum e fraction]Ordered By: Manisha Varela on 09-05-2023 Hematocrit (Bld) [Volume fraction] 32.7 % 40-54 [facility] - Chemistry and C hemistry - challengeOrdered By: Manisha Varela on 09-05-2023 CO2 [Moles/Vol] 19.0 mmol/L 21.0-32.0 [facility] Urea nitrogen/Creatinine [Mass ratio] 28.1 mg/mg 10-20 [facility] - Hematology and Cell countsOrdered By: Manisha Varela on 09-05-2023 Erythrocyte distribution width (RBC) [Entitic vol] 49.9 fL 35.1-43.9 [facility] Erythrocyte distribution width (RBC) [Ratio] 14.6 % 11.6-14.6 [facility] Immature granulocytes/100 WBC (Bld) 0.200 % 0.0-0.9 [facility] Comment on above: IG% - Immature Granu locytes (promyelocytes, myelocytes and metamyelocytes) > 1% indicates that a LEFT SHIFT is Present. MCH (RBC) [Entitic mass] 29.4 pg 27.0-32.0 [facility] Nucleated RBC/100 WBC (Bld) [Ratio] 0 % 0-5 [facility] MCHC Auto (RBC) [Mass/Vol]Or dered By: Manisha Varela on 09-05-2023 MCHC (RBC) [Mass/Vol] 31.5 g/dL 32-36 [facility] No Panel InformationOrdered By: Manisha Varlea on 09-05-2023 Estimated Creatinine Clearance Calc 36.29 ml/min [facility] Estimated GFR (MDRD) Amer 91 mL/min >60 [facility] Comment on above: GFR Calc Estimated GFR (MDRD) Non-Af Amer 75 mL/min >60 [facility] Comment on above: Non- GFR Calc Platelets bldOrdered By: Andrew Varela on 09-05-2023 Platelets (Bld) [#/Vol] 183 10*3/uL 150-450 [facility] Serum or plasma calcium alfonso urement (mass/volume)Ordered By: Manisha Varela on 09-05-2023 Calcium [Mass/Vol] 8.4 mg/dL 8.5-10.1 [facility] Serum or plasma creatinine m easurement (mass/volume)Ordered By: Manisha Varela on 09-05-2023 Creatinine [Mass/Vol] 1.00 mg/dL 0.70-1.30 [facility] Comment on above: The validity of the calculated GFR & GFRAA in patients over 70 years has not been determined. Clinical correlation is essential. Serum or plasma urea nitroge n measurement (mass/volume)Ordered By: Manisha Varela on 09-05-2023 Urea nitrogen [Mass/Vol] 28 mg/dL 7-18 [facility] Thin prep Papanicolaou smear with manual screeningOrdered By: Manisha Varela on 09-05-2023 Thin prep Papanicolaou smear with manual screening 12 5-15 [facility] Absolute lymphocyte countOrd ered By: Robbi Hopkins on 09-04-2023 Lymphocytes Auto (Unsp spec) [#/Vol] 1.47 10*3/uL 0.83-4.51 [facility] Basophil percentageOrdered B y: Robbi Hopkins on 09-04-2023 Basophils/100 WBC (Bld) 0.4 % 0-1 [facility] Bilirubin [Mass/Vol] 1.80 mg/dL 0.20-1.00 [facility] Comment on above: For patients on eltr ombopag therapy, use of [employer] [place] TBIL is not recommended. Chloride [Moles/Vol] 101 mmol/L 98-107 [facility] Eosinophils/100 WBC (Bld) 0.2 % 0-5 [facility] Glucose [Mass/Vol] 94 mg/dL 74-106 [facility] Neutrophils (Bld) [#/Vol] 10.3 10*3/uL 2.0-7.7 [facility] Neutrophils/100 WBC (Bld) 77.7 % 47-70 [facility] Potassium [Moles/Vol] 4.2 mmol/L 3.5-5.1 [facility] Protein [Mass/Vol] 7.2 g/dL 6.4-8.2 [facility] Sodium [Moles/Vol] 134 mmol/L 136-145 [facility] WBC (Bld) [#/Vol] 13.2 10*3/uL 4.4-11.0 [facility] Basophil percentage 5-10 SEEN /hpf 0-[address] [facility] Bilirubin Test strip Ql (U)O rdered By: Robbi Hopkins on 09-04-2023 Bilirubin Ql (U) Negative Negative [facility] Blood erythrocytes count (nu mber/volume)Ordered By: Robbi Hopkins on 09-04-2023 RBC (Bld) [#/Vol] 3.84 10*6/uL 4.6-6.2 [facility] Blood hemoglobin measurement (mass/volume)Ordered By: Robbi Hopkins on 09-04-2023 Hemoglobin (Bld) [Mass/Vol] 11.3 g/dL 13.0-16.5 [facility] Blood lymphocytes/100 leukoc ytesOrdered By: Robbi Hopkins on 09-04-2023 Lymphocytes/100 WBC (Bld) 11.1 % 19-41 [facility] Blood monocytes/100 leukocyt esOrdered By: Robbi Hopkins on 09-04-2023 Monocytes/100 WBC (Bld) 10.2 % 0-10 [facility] Blood platelet mean volumeOr dered By: Robbi Hopkins on 09-04-2023 Platelet mean volume (Bld) [Entitic vol] 11.7 fL 6.2-12.0 [facility] Culture, urineOrdered By: Umer Hopkins on 09-04-2023 Bacteria identified Cx Nom (U) Staphylococcus lugdunensis [facility] Determination of erythrocyte mean corpuscular volume (MCV)Ordered By: Robbi Hopkins on 09-04-2023 MCV (RBC) [Entitic vol] 93.0 fL 80-94 [facility] Hematocrit Auto (Bld) [Volum e fraction]Ordered By: Robbi Hopkins on 09-04-2023 Hematocrit (Bld) [Volume fraction] 35.7 % 40-54 [facility] Ketones Test strip Ql (U)Ord ered By: Robbi Hopkins on 09-04-2023 Ketones Ql (U) 50 mg/dl Negative [facility] - Chemistry and C hemistry - challengeOrdered By: Robbi Hopkins on 09-04-2023 ALP [Catalytic activity/Vol] 54 U/L 45-117 [facility] ALT [Catalytic activity/Vol] 11 U/L 16-61 [facility] CO2 [Moles/Vol] 17.0 mmol/L 21.0-32.0 [facility] Globulin (S) [Mass/Vol] 3.8 g/dL 2.2-4.2 [facility] Lipase [Catalytic activity/Vol] 11 U/L 13-75 [facility] Comment on above: Please note:LIPASE r evised reference range effective 23. New Lipase methodology. Expected to produce lower values than the previous assay method. NEW Reference Range: 13 - 75 U/L Urea nitrogen/Creatinine [Mass ratio] 25.2 mg/mg 10-20 [facility] - Hematology and Cell countsOrdered By: Robbi Hopkins on 09-04-2023 Erythrocyte distribution width (RBC) [Entitic vol] 49.5 fL 35.1-43.9 [facility] Erythrocyte distribution width (RBC) [Ratio] 14.6 % 11.6-14.6 [facility] Immature granulocytes/100 WBC (Bld) 0.400 % 0.0-0.9 [facility] Comment on above: IG% - Immature Granu locytes (promyelocytes, myelocytes and metamyelocytes) > 1% indicates that a LEFT SHIFT is Present. MCH (RBC) [Entitic mass] 29.4 pg 27.0-32.0 [facility] Nucleated RBC/100 WBC (Bld) [Ratio] 0 % 0-5 [facility] MCHC Auto (RBC) [Mass/Vol]Or dered By: Robbi Hopkins on 09-04-2023 MCHC (RBC) [Mass/Vol] 31.7 g/dL 32-36 [facility] Mucus LM Ql (Urine sed)Order ed By: Robbi Hopkins on 09-04-2023 Mucus Ql (Urine sed) 0 SEEN /hpf [facility] Nitrite Test strip Ql (U)Ord ered By: Robbi Hopkins on 09-04-2023 Nitrite Ql (U) Positive Negative [facility] No Panel InformationOrdered By: Robbi Hopkins on 09-04-2023 Estimated Creatinine Clearance Calc 27.02 ml/min [facility] Estimated GFR (MDRD) Amer 62 mL/min >60 [facility] Comment on above: GFR Calc Estimated GFR (MDRD) Non-Af Amer 51 mL/min >60 [facility] Comment on above: Non- GFR Calc Platelets bldOrdered By: Coco Hopkins on 09-04-2023 Platelets (Bld) [#/Vol] 208 10*3/uL 150-450 [facility] Protein Test strip Ql (U)Ord ered By: Robbi Hopkins on 09-04-2023 Protein Ql (U) 15 mg/dl Negative [facility] Serum or plasma albumin alfonso urement (mass/volume)Ordered By: Robbi Hopkins on 09-04-2023 Albumin [Mass/Vol] 3.4 g/dL 3.2-5.0 [facility] Serum or plasma albumin/glob ulin mass ratioOrdered By: Robbi Hopkins on 09-04-2023 Albumin/Globulin [Mass ratio] 0.9 {ratio} 0.9-2.4 [facility] Serum or plasma calcium alfonso urement (mass/volume)Ordered By: Robbi Hopkins on 09-04-2023 Calcium [Mass/Vol] 8.7 mg/dL 8.5-10.1 [facility] Serum or plasma creatinine m easurement (mass/volume)Ordered By: Robbi Hopkins on 09-04-2023 Creatinine [Mass/Vol] 1.39 mg/dL 0.70-1.30 [facility] Comment on above: The validity of the calculated GFR & GFRAA in patients over 70 years has not been determined. Clinical correlation is essential. Serum or plasma urea nitroge n measurement (mass/volume)Ordered By: Robbi Hopkins on 09-04-2023 Urea nitrogen [Mass/Vol] 35 mg/dL 7-18 [facility] Squamous epithelial cells de tection in urine sediment by light microscopyOrdered By: Robbi Hopkins on 09-04-2023 Epithelial cells.squamous LM Ql (Urine sed) 0 SEEN /hpf 0-5 [facility] Thin prep Papanicolaou smear with manual screeningOrdered By: Robbi Hopkins on 09-04-2023 Thin prep Papanicolaou smear with manual screening 10 U/L 15-37 [facility] Thin prep Papanicolaou smear with manual screening 16 5-15 [facility] Urine blood detectionOrdered By: Robbi Hopkins on 09-04-2023 RBC Ql (U) 150 /ul Negative [facility] RBC Ql (U) 0-5 SEEN /hpf 0-5 [facility] Urine clarityOrdered By: Coco Hopkins on 09-04-2023 Clarity (U) Sl. Cloudy Clear [facility] Urine color determinationOrd ered By: Robbi Hopkins on 09-04-2023 Color (U) Yellow Yellow [facility] Urine glucose detectionOrder ed By: Robbi Hopkins on 09-04-2023 Glucose Ql (U) Normal mg/dl Normal [facility] Urine leukocyte esterase det ection by dipstickOrdered By: Robbi Hopkins on 09-04-2023 Leukocyte esterase Test strip Ql (U) 25 /ul Negative [facility] Urine pHOrdered By: Robbi delgadillo on 09-04-2023 pH (U) 6.0 [pH] 5.0 - 8.0 [facility] Urine sediment bacteria coun t by microscopy (number/high power field)Ordered By: Robbi Hopkins on 09-04-2023 Bacteria LM.HPF (Urine sed) [#/Area] 1 /[HPF] None Seen [facility] Urine specific gravity measu rementOrdered By: Robbi Hopkins on 09-04-2023 Specific gravity (U) [Rel density] 1.020 1.002-1.03 0 [facility] Urobilinogen Auto test strip Ql (U)Ordered By: Robbi Hopkins on 09-04-2023 Urobilinogen Ql (U) Normal mg/dl Normal [facility] No Panel InformationOrdered By: Faisal Barth on 08-31-2023 Prostate Specific Antigen Total 18.80 ng/mL 0.0-4.0 [facility] Comment on above: This test was perfor med using the TPSA assay method for theNovav[employer] AB chemistry system. Values obtained with differentassay methods cannot be used interchangably.When changing PSA assays in the course of monitoring apatient, additional sequential testing should be carriedout to confirm baseline values. Basophil percentageOrdered B y: Cynthia Bowen on 07-20-2023 Chloride [Moles/Vol] 106 mmol/L 98-107 [facility] Glucose [Mass/Vol] 114 mg/dL 74-106 [facility] Comment on above: Fasting Glucose resu lt from 100 to 125 mg/dL suggests IMPAIRED HOMEOSTASIS per A.D.A. criteria. Potassium [Moles/Vol] 4.1 mmol/L 3.5-5.1 [facility] Sodium [Moles/Vol] 139 mmol/L 136-145 [facility] - Chemistry and C hemistry - challengeOrdered By: Cynthia Bowen on 07-20-2023 CO2 [Moles/Vol] 30.0 mmol/L 21.0-32.0 [facility] Urea nitrogen/Creatinine [Mass ratio] 16.6 mg/mg 10- [facility] No Panel InformationOrdered By: Cynthia Bowen on 07-20-2023 Estimated GFR (MDRD) Amer 95 mL/min >60 [facility] Comment on above: GFR Calc Estimated GFR (MDRD) Non-Af Amer 78 mL/min >60 [facility] Comment on above: Non- GFR Calc Serum or plasma calcium alfonso urement (mass/volume)Ordered By: Cynthia Bowen on 07-20-2023 Calcium [Mass/Vol] 8.5 mg/dL 8.5-10.1 [facility] Serum or plasma creatinine m easurement (mass/volume)Ordered By: Cynthia Bowen on 07-20-2023 Creatinine [Mass/Vol] 0.97 mg/dL 0.70-1.30 [facility] Comment on above: The validity of the calculated GFR & GFRAA in patients over 70 years has not been determined. Clinical correlation is essential. Serum or plasma urea nitroge n measurement (mass/volume)Ordered By: Cynthia Bowen on 07-20-2023 Urea nitrogen [Mass/Vol] 16 mg/dL 7-18 [facility] Thin prep Papanicolaou smear with manual screeningOrdered By: Cynthia Bowen on 07-20-2023 Thin prep Papanicolaou smear with manual screening 3 5-15 [facility] Basophil percentageOrdered B y: Cynthia Bowen on 07-09-2023 Chloride [Moles/Vol] 106 mmol/L 98-107 [facility] Glucose [Mass/Vol] 111 mg/dL 74-106 [facility] Comment on above: Fasting Glucose resu lt from 100 to 125 mg/dL suggests IMPAIRED HOMEOSTASIS per A.D.A. criteria. Potassium [Moles/Vol] 4.0 mmol/L 3.5-5.1 [facility] Sodium [Moles/Vol] 139 mmol/L 136-145 [facility] WBC (Bld) [#/Vol] 6.8 10*3/uL 4.4-11.0 [facility] Blood erythrocytes count (nu mber/volume)Ordered By: Cynthia Bowen on 07-09-2023 RBC (Bld) [#/Vol] 4.37 10*6/uL 4.6-6.2 [facility] Blood hemoglobin measurement (mass/volume)Ordered By: Cynthia Bowen on 07-09-2023 Hemoglobin (Bld) [Mass/Vol] 12.8 g/dL 13.0-16.5 [facility] Blood platelet mean volumeOr dered By: Cynthia Bowen on 07-09-2023 Platelet mean volume (Bld) [Entitic vol] 11.2 fL 6.2-12.0 [facility] Determination of erythrocyte mean corpuscular volume (MCV)Ordered By: Cynthia Bowen on 07-09-2023 MCV (RBC) [Entitic vol] 91.1 fL 80-94 [facility] Hematocrit Auto (Bld) [Volum e fraction]Ordered By: Cynthia Bowen on 07-09-2023 Hematocrit (Bld) [Volume fraction] 39.8 % 40-54 [facility] Laboratory - Chemistry and C hemistry - challengeOrdered By: Cynthia Bowen on 07-09-2023 CO2 [Moles/Vol] 28.0 mmol/L 21.0-32.0 [facility] Natriuretic peptide B (Bld) [Mass/Vol] 157.6 pg/mL 0-100 [facility] Urea nitrogen/Creatinine [Mass ratio] 25.1 mg/mg 10-20 [facility] Laboratory - Hematology and Cell countsOrdered By: Cynthia Bowen on 07-09-2023 Erythrocyte distribution width (RBC) [Entitic vol] 45.5 fL 35.1-43.9 [facility] Erythrocyte distribution width (RBC) [Ratio] 13.5 % 11.6-14.6 [facility] MCH (RBC) [Entitic mass] 29.3 pg 27.0-32.0 [facility] MCHC Auto (RBC) [Mass/Vol]Or dered By: Cynthia Bowen on 07-09-2023 MCHC (RBC) [Mass/Vol] 32.2 g/dL 32-36 [facility] No Panel InformationOrdered By: Cynthia Bowen on 07-09-2023 Estimated GFR (MDRD) Amer 111 mL/min >60 [facility] Comment on above: GFR Calc Estimated GFR (MDRD) Non-Af Amer 92 mL/min >60 [facility] Comment on above: Non- GFR Calc Thyroid Stimulating Hormone (TSH) 0.79 uIU/mL 0.358-3.74 [facility] Platelets bldOrdered By: Carlos Bowen on 07-09-2023 Platelets (Bld) [#/Vol] 174 10*3/uL 150-450 [facility] Serum or plasma calcium alfonso urement (mass/volume)Ordered By: Cynthia Bowen on 07-09-2023 Calcium [Mass/Vol] 9.1 mg/dL 8.5-10.1 [facility] Serum or plasma creatinine m easurement (mass/volume)Ordered By: Cynthia Bowen on 07-09-2023 Creatinine [Mass/Vol] 0.84 mg/dL 0.70-1.30 [facility] Comment on above: The validity of the calculated GFR & GFRAA in patients over 70 years has not been determined. Clinical correlation is essential. Serum or plasma urea nitroge n measurement (mass/volume)Ordered By: Cynthia Bowen on 07-09-2023 Urea nitrogen [Mass/Vol] 21 mg/dL 7-18 [facility] Thin prep Papanicolaou smear with manual screeningOrdered By: Cynthia Bowen on 07-09-2023 Thin prep Papanicolaou smear with manual screening 5 5-15 [facility] Absolute lymphocyte countOrd ered By: Dr. Noel on 03-26-2023 Lymphocytes Auto (Unsp spec) [#/Vol] 1.89 10*3/uL 0.83-4.51 [facility] Basophil percentageOrdered B y: Dr. Noel on 03-26-2023 Basophils/100 WBC (Bld) 0.3 % 0-1 [facility] Bilirubin [Mass/Vol] 1.10 mg/dL 0.20-1.00 [facility] Comment on above: For patients on eltr ombopag therapy, use of [place] TBIL is not recommended. Chloride [Moles/Vol] 104 mmol/L 98-107 [facility] Eosinophils/100 WBC (Bld) 0.4 % 0-5 [facility] Glucose [Mass/Vol] 113 mg/dL 74-106 [facility] Comment on above: Fasting Glucose resu lt from 100 to 125 mg/dL suggests IMPAIRED HOMEOSTASIS per A.D.A. criteria. Neutrophils (Bld) [#/Vol] 8.9 10*3/uL 2.0-7.7 [facility] Neutrophils/100 WBC (Bld) 72.9 % 47-70 [facility] Potassium [Moles/Vol] 4.1 mmol/L 3.5-5.1 [facility] Protein [Mass/Vol] 7.4 g/dL 6.4-8.2 [facility] Sodium [Moles/Vol] 138 mmol/L 136-145 [facility] WBC (Bld) [#/Vol] 12.2 10*3/uL 4.4-11.0 [facility] Blood erythrocytes count (nu mber/volume)Ordered By: Dr. Noel on 03-26-2023 RBC (Bld) [#/Vol] 4.04 10*6/uL 4.6-6.2 [facility] Blood hemoglobin measurement (mass/volume)Ordered By: Dr. Noel on 03-26-2023 Hemoglobin (Bld) [Mass/Vol] 12.1 g/dL 13.0-16.5 [facility] Blood lymphocytes/100 leukoc ytesOrdered By: Dr. Noel on 03-26-2023 Lymphocytes/100 WBC (Bld) 15.6 % 19-41 [facility] Blood monocytes/100 leukocyt esOrdered By: Dr. Noel on 03-26-2023 Monocytes/100 WBC (Bld) 10.6 % 0-10 [facility] Blood platelet mean volumeOr dered By: Dr. Noel on 03-26-2023 Platelet mean volume (Bld) [Entitic vol] 11.2 fL 6.2-12.0 [facility] Determination of erythrocyte mean corpuscular volume (MCV)Ordered By: Dr. Noel on 03-26-2023 MCV (RBC) [Entitic vol] 92.8 fL 80-94 [facility] Hematocrit Auto (Bld) [Volum e fraction]Ordered By: Dr. Noel on 03-26-2023 Hematocrit (Bld) [Volume fraction] 37.5 % 40-54 [facility] Laboratory - Chemistry and C hemistry - challengeOrdered By: Dr. Noel on 03-26-2023 ALP [Catalytic activity/Vol] 65 U/L 45-117 [facility] ALT [Catalytic activity/Vol] 16 U/L 16-61 [facility] CO2 [Moles/Vol] 28.0 mmol/L 21.0-32.0 [facility] Globulin (S) [Mass/Vol] 3.8 g/dL 2.2-4.2 [facility] Urea nitrogen/Creatinine [Mass ratio] 14.3 mg/mg 10-20 [facility] Laboratory - Hematology and Cell countsOrdered By: Dr. Noel on 03-26-2023 Erythrocyte distribution width (RBC) [Entitic vol] 49.5 fL 35.1-43.9 [facility] Erythrocyte distribution width (RBC) [Ratio] 14.4 % 11.6-14.6 [facility] Immature granulocytes/100 WBC (Bld) 0.200 % 0.0-0.9 [facility] Comment on above: IG% - Immature Granu locytes (promyelocytes, myelocytes and metamyelocytes) > 1% indicates that a LEFT SHIFT is Present. MCH (RBC) [Entitic mass] 30.0 pg 27.0-32.0 [facility] Nucleated RBC/100 WBC (Bld) [Ratio] 0 % 0-5 [facility] MCHC Auto (RBC) [Mass/Vol]Or dered By: Dr. Noel on 03-26-2023 MCHC (RBC) [Mass/Vol] 32.3 g/dL 32-36 [facility] No Panel InformationOrdered By: Dr. Noel on 03-26-2023 CA 19-9 Antigen 7 U/mL 0-35 [facility] Comment on above: [employer] El ectrochemiluminescence Immunoassay(ECLIA)Values obtained with different assay methods or kits cannotbe used interchangeably. Results cannot be interpreted asabsolute evidence of the presence or absence of malignantdisease.Performed at: [email or web address] [place] [id number] Director: Toi Ponce PhD, Phone: [phone] Estimated GFR (MDRD) Amer 93 mL/min >60 [facility] Comment on above: GFR Calc Estimated GFR (MDRD) Non-Af Amer 77 mL/min >60 [facility] Comment on above: Non- GFR Calc Platelets bldOrdered By: Dr. Noel on 03-26-2023 Platelets (Bld) [#/Vol] 224 10*3/uL 150-450 [facility] Serum or plasma C reactive p rotein measurement (mass/volume)Ordered By: Dr. Noel on 03-26-2023 CRP [Mass/Vol] 39.50 mg/L 0.0-3.0 [facility] Comment on above: C-Reactive Protein ( CRP) provides useful information for thediagnosis, therapy and monitoring of inflammatory processesand associated diseases. For the evaluation of Relative Riskfor Cardiovascular Disease, a High Sensitivity CRP (HSCRP)should be ordered. Serum or plasma albumin alfonso urement (mass/volume)Ordered By: Dr. Noel on 03-26-2023 Albumin [Mass/Vol] 3.6 g/dL 3.2-5.0 [facility] Serum or plasma albumin/glob ulin mass ratioOrdered By: Dr. Noel on 03-26-2023 Albumin/Globulin [Mass ratio] 0.9 {ratio} 0.9-2.4 [facility] Serum or plasma calcium alfonso urement (mass/volume)Ordered By: Dr. Noel on 03-26-2023 Calcium [Mass/Vol] 8.6 mg/dL 8.5-10.1 [facility] Serum or plasma carcinoembry onic antigen measurement (mass/volume)Ordered By: Dr. Noel on 03-26-2023 Carcinoembryonic Ag [Mass/Vol] 0.7 ng/mL 0.0-4.7 [facility] Comment on above: Nonsmokers <3.9 [place] ers <5.6[employer] Electrochemiluminescence Immunoassay(ECLIA)Values obtained with different assay methods or kitscannot be used interchangeably. Results cannot beinterpreted as absolute evidence of the presence orabsence of malignant disease. Serum or plasma creatinine m easurement (mass/volume)Ordered By: Dr. Noel on 03-26-2023 Creatinine [Mass/Vol] 0.98 mg/dL 0.70-1.30 [facility] Comment on above: The validity of the calculated GFR & GFRAA in patients over 70 years has not been determined. Clinical correlation is essential. Serum or plasma urea nitroge n measurement (mass/volume)Ordered By: Dr. Noel on 03-26-2023 Urea nitrogen [Mass/Vol] 14 mg/dL 7-18 [facility] Thin prep Papanicolaou smear with manual screeningOrdered By: Dr. Noel on 03-26-2023 Thin prep Papanicolaou smear with manual screening 17 U/L 15-37 [facility] Thin prep Papanicolaou smear with manual screening 6 5-15 [facility] Absolute lymphocyte countOrd ered By: Dr. Villarreal on 01-06-2023 Lymphocytes Auto (Unsp spec) [#/Vol] 1.31 10*3/uL 0.83-4.51 [facility] Basophil percentageOrdered B y: Dr. Villarreal on 01-06-2023 Basophils/100 WBC (Bld) 0.3 % 0-1 [facility] Chloride [Moles/Vol] 108 mmol/L 98-107 [facility] Eosinophils/100 WBC (Bld) 1.2 % 0-5 [facility] Glucose [Mass/Vol] 123 mg/dL 74-106 [facility] Comment on above: Fasting Glucose resu lt from 100 to 125 mg/dL suggests IMPAIRED HOMEOSTASIS per A.D.A. criteria. Neutrophils (Bld) [#/Vol] 9.1 10*3/uL 2.0-7.7 [facility] Neutrophils/100 WBC (Bld) 74.2 % 47-70 [facility] Potassium [Moles/Vol] 3.7 mmol/L 3.5-5.1 [facility] Sodium [Moles/Vol] 139 mmol/L 136-145 [facility] WBC (Bld) [#/Vol] 12.2 10*3/uL 4.4-11.0 [facility] Blood erythrocytes count (nu mber/volume)Ordered By: Dr. Villarreal on 01-06-2023 RBC (Bld) [#/Vol] 3.97 10*6/uL 4.6-6.2 [facility] Blood hemoglobin measurement (mass/volume)Ordered By: Dr. Villarreal on 01-06-2023 Hemoglobin (Bld) [Mass/Vol] 11.9 g/dL 13.0-16.5 [facility] Blood lymphocytes/100 leukoc ytesOrdered By: Dr. Villarreal on 01-06-2023 Lymphocytes/100 WBC (Bld) 10.7 % 19-41 [facility] Blood manual differential co mment interpretation (narrative result)Ordered By: Dr. Villarreal on 01-06-2023 Manual differential comment Liang (Bld) [Interp] SCANNED [facility] Blood monocytes/100 leukocyt esOrdered By: Dr. Villarreal on 01-06-2023 Monocytes/100 WBC (Bld) 13.4 % 0-10 [facility] Blood platelet mean volumeOr dered By: Dr. Villarreal on 01-06-2023 Platelet mean volume (Bld) [Entitic vol] 10.8 fL 6.2-12.0 [facility] Determination of erythrocyte mean corpuscular volume (MCV)Ordered By: Dr. Villarreal on 01-06-2023 MCV (RBC) [Entitic vol] 91.9 fL 80-94 [facility] Hematocrit Auto (Bld) [Volum e fraction]Ordered By: Dr. Villarreal on 01-06-2023 Hematocrit (Bld) [Volume fraction] 36.5 % 40-54 [facility] Laboratory - Chemistry and C hemistry - challengeOrdered By: Dr. Villarreal on 01-06-2023 CO2 [Moles/Vol] 26.0 mmol/L 21.0-32.0 [facility] Urea nitrogen/Creatinine [Mass ratio] 11.6 mg/mg 10-20 [facility] Laboratory - Hematology and Cell countsOrdered By: Dr. Villarreal on 01-06-2023 Erythrocyte distribution width (RBC) [Entitic vol] 48.6 fL 35.1-43.9 [facility] Erythrocyte distribution width (RBC) [Ratio] 14.4 % 11.6-14.6 [facility] Immature granulocytes/100 WBC (Bld) 0.200 % 0.0-0.9 [facility] Comment on above: IG% - Immature Granu locytes (promyelocytes, myelocytes and metamyelocytes) > 1% indicates that a LEFT SHIFT is Present. MCH (RBC) [Entitic mass] 30.0 pg 27.0-32.0 [facility] Nucleated RBC/100 WBC (Bld) [Ratio] 0 % 0-5 [facility] MCHC Auto (RBC) [Mass/Vol]Or dered By: Dr. Villarreal on 01-06-2023 MCHC (RBC) [Mass/Vol] 32.6 g/dL 32-36 [facility] No Panel InformationOrdered By: Dr. Villarreal on 01-06-2023 Estimated Creatinine Clearance Calc 46.20 ml/min [facility] Estimated GFR (MDRD) Amer 108 mL/min >60 [facility] Comment on above: GFR Calc Estimated GFR (MDRD) Non-Af Amer 89 mL/min >60 [facility] Comment on above: Non- GFR Calc Platelets bldOrdered By: Dr. Villarreal on 01-06-2023 Platelets (Bld) [#/Vol] 225 10*3/uL 150-450 [facility] Review by pathologistOrdered By: Dr. Villarreal on 01-06-2023 Pathologist review Liang (Unsp spec) [Interp] Reviewed [facility] Comment on above: Previous reported re sult: Sonia anthony Edited by: YURY on 01/07/23:1327Neutrophilic leukocytosis.Clinical correlation necessary.Eddi Swartz M.D. 01/07/23 AMENDED REPORT 01/07/23 1327 PATH REV previously reported as: Sonia anthony Serum or plasma calcium alfonso urement (mass/volume)Ordered By: Dr. Villarreal on 01-06-2023 Calcium [Mass/Vol] 8.3 mg/dL 8.5-10.1 [facility] Serum or plasma creatinine m easurement (mass/volume)Ordered By: Dr. Villarreal on 01-06-2023 Creatinine [Mass/Vol] 0.86 mg/dL 0.70-1.30 [facility] Comment on above: The validity of the calculated GFR & GFRAA in patients over 70 years has not been determined. Clinical correlation is essential. Serum or plasma urea nitroge n measurement (mass/volume)Ordered By: Dr. Villarreal on 01-06-2023 Urea nitrogen [Mass/Vol] 10 mg/dL 7-18 [facility] Thin prep Papanicolaou smear with manual screeningOrdered By: Dr. Villarreal on 01-06-2023 Thin prep Papanicolaou smear with manual screening 5 5-15 [facility] Absolute lymphocyte countOrd ered By: Dr. Morgan on 12-27-2022 Lymphocytes Auto (Unsp spec) [#/Vol] 1.73 10*3/uL 0.83-4.51 [facility] Basophil percentageOrdered B y: Dr. Morgan on 12-27-2022 Basophil percentage 0-5 SEEN /hpf 0-5 [facility] Basophils/100 WBC (Bld) 0.5 % 0-1 [facility] Bilirubin [Mass/Vol] 2.10 mg/dL 0.20-1.00 [facility] Comment on above: For patients on eltr ombopag therapy, use of [place] TBIL is not recommended. Chloride [Moles/Vol] 102 mmol/L 98-107 [facility] Eosinophils/100 WBC (Bld) 1.0 % 0-5 [facility] Glucose [Mass/Vol] 135 mg/dL 74-106 [facility] Comment on above: Fasting Glucose resu lt greater than or equal to 126 mg/dL suggests DIABETES MELLITUS per A.D.A. criteria. Neutrophils (Bld) [#/Vol] 7.5 10*3/uL 2.0-7.7 [facility] Neutrophils/100 WBC (Bld) 69.5 % 47-70 [facility] Potassium [Moles/Vol] 3.4 mmol/L 3.5-5.1 [facility] Protein [Mass/Vol] 7.6 g/dL 6.4-8.2 [facility] Sodium [Moles/Vol] 139 mmol/L 136-145 [facility] WBC (Bld) [#/Vol] 10.8 10*3/uL 4.4-11.0 [facility] Bilirubin Test strip Ql (U)O rdered By: Dr. Morgan on 12-27-2022 Bilirubin Ql (U) Negative Negative [facility] Blood erythrocytes count (nu mber/volume)Ordered By: Dr. Morgan on 12-27-2022 RBC (Bld) [#/Vol] 4.29 10*6/uL 4.6-6.2 [facility] Blood hemoglobin measurement (mass/volume)Ordered By: Dr. Morgan on 12-27-2022 Hemoglobin (Bld) [Mass/Vol] 12.8 g/dL 13.0-16.5 [facility] Blood lymphocytes/100 leukoc ytesOrdered By: Dr. Morgan on 12-27-2022 Lymphocytes/100 WBC (Bld) 16.0 % 19-41 [facility] Blood monocytes/100 leukocyt esOrdered By: Dr. Morgan on 12-27-2022 Monocytes/100 WBC (Bld) 12.6 % 0-10 [facility] Blood platelet mean volumeOr dered By: Dr. Morgan on 12-27-2022 Platelet mean volume (Bld) [Entitic vol] 11.6 fL 6.2-12.0 [facility] Determination of erythrocyte mean corpuscular volume (MCV)Ordered By: Dr. Morgan on 12-27-2022 MCV (RBC) [Entitic vol] 91.4 fL 80-94 [facility] Hematocrit Auto (Bld) [Volum e fraction]Ordered By: Dr. Morgan on 12-27-2022 Hematocrit (Bld) [Volume fraction] 39.2 % 40-54 [facility] Ketones Test strip Ql (U)Ord ered By: Dr. Morgan on 12-27-2022 Ketones Ql (U) Negative Negative [facility] Laboratory - Chemistry and C hemistry - challengeOrdered By: Dr. Morgan on 12-27-2022 ALP [Catalytic activity/Vol] 68 U/L 45-117 [facility] ALT [Catalytic activity/Vol] 11 U/L 16-61 [facility] CO2 [Moles/Vol] 30.0 mmol/L 21.0-32.0 [facility] Globulin (S) [Mass/Vol] 3.7 g/dL 2.2-4.2 [facility] Urea nitrogen/Creatinine [Mass ratio] 11.9 mg/mg 10-20 [facility] Laboratory - Hematology and Cell countsOrdered By: Dr. Morgan on 12-27-2022 Erythrocyte distribution width (RBC) [Entitic vol] 46.6 fL 35.1-43.9 [facility] Erythrocyte distribution width (RBC) [Ratio] 14.0 % 11.6-14.6 [facility] Immature granulocytes/100 WBC (Bld) 0.400 % 0.0-0.9 [facility] Comment on above: IG% - Immature Granu locytes (promyelocytes, myelocytes and metamyelocytes) > 1% indicates that a LEFT SHIFT is Present. MCH (RBC) [Entitic mass] 29.8 pg 27.0-32.0 [facility] Nucleated RBC/100 WBC (Bld) [Ratio] 0 % 0-5 [facility] MCHC Auto (RBC) [Mass/Vol]Or dered By: Dr. Morgan on 12-27-2022 MCHC (RBC) [Mass/Vol] 32.7 g/dL 32-36 [facility] Mucus LM Ql (Urine sed)Order ed By: Dr. Morgan on 12-27-2022 Mucus Ql (Urine sed) 0 SEEN /hpf [facility] Nitrite Test strip Ql (U)Ord ered By: Dr. Morgan on 12-27-2022 Nitrite Ql (U) Negative Negative [facility] No Panel InformationOrdered By: Dr. Morgan on 12-27-2022 Estimated Creatinine Clearance Calc 42.47 ml/min [facility] Estimated GFR (MDRD) Amer 99 mL/min >60 [facility] Comment on above: GFR Calc Estimated GFR (MDRD) Non-Af Amer 82 mL/min >60 [facility] Comment on above: Non- GFR Calc Platelets bldOrdered By: Dr. Morgan on 12-27-2022 Platelets (Bld) [#/Vol] 195 10*3/uL 150-450 [facility] Protein Test strip Ql (U)Ord ered By: Dr. Morgan on 12-27-2022 Protein Ql (U) 15 mg/dl Negative [facility] Serum or plasma albumin alfonso urement (mass/volume)Ordered By: Dr. Morgan on 12-27-2022 Albumin [Mass/Vol] 3.9 g/dL 3.2-5.0 [facility] Serum or plasma albumin/glob ulin mass ratioOrdered By: Dr. Morgan on 12-27-2022 Albumin/Globulin [Mass ratio] 1.1 {ratio} 0.9-2.4 [facility] Serum or plasma calcium alfonso urement (mass/volume)Ordered By: Dr. Morgan on 12-27-2022 Calcium [Mass/Vol] 8.9 mg/dL 8.5-10.1 [facility] Serum or plasma creatinine m easurement (mass/volume)Ordered By: Dr. Morgan on 12-27-2022 Creatinine [Mass/Vol] 0.93 mg/dL 0.70-1.30 [facility] Comment on above: The validity of the calculated GFR & GFRAA in patients over 70 years has not been determined. Clinical correlation is essential. Serum or plasma urea nitroge n measurement (mass/volume)Ordered By: Dr. Morgan on 12-27-2022 Urea nitrogen [Mass/Vol] 11 mg/dL 7-18 [facility] Squamous epithelial cells de tection in urine sediment by light microscopyOrdered By: Dr. Morgan on 12-27-2022 Epithelial cells.squamous LM Ql (Urine sed) 0-5 SEEN /hpf 0-5 [facility] Thin prep Papanicolaou smear with manual screeningOrdered By: Dr. Morgan on 12-27-2022 Thin prep Papanicolaou smear with manual screening 8 U/L 15-37 [facility] Thin prep Papanicolaou smear with manual screening 7 5-15 [facility] Urine blood detectionOrdered By: Dr. Morgan on 12-27-2022 RBC Ql (U) Negative Negative [facility] RBC Ql (U) 0 SEEN /hpf 0-5 [facility] Urine clarityOrdered By: Dr. Morgan on 12-27-2022 Clarity (U) Sl. Cloudy Clear [facility] Urine color determinationOrd ered By: Dr. Morgan on 12-27-2022 Color (U) Yellow Yellow [facility] Urine glucose detectionOrder ed By: Dr. Morgan on 12-27-2022 Glucose Ql (U) Normal mg/dl Normal [facility] Urine leukocyte esterase det ection by dipstickOrdered By: Dr. Morgan on 12-27-2022 Leukocyte esterase Test strip Ql (U) 25 /ul Negative [facility] Urine pHOrdered By: Dr. Meme holcomb on 12-27-2022 pH (U) 7.0 [pH] 5.0 - 8.0 [facility] Urine sediment bacteria coun t by microscopy (number/high power field)Ordered By: Dr. Morgan on 12-27-2022 Bacteria LM.HPF (Urine sed) [#/Area] 0 /[HPF] None Seen [facility] Urine specific gravity measu rementOrdered By: Dr. Morgan on 12-27-2022 Specific gravity (U) [Rel density] 1.010 1.002-1.03 0 [facility] Urobilinogen Auto test strip Ql (U)Ordered By: Dr. Morgan on 12-27-2022 Urobilinogen Ql (U) Normal mg/dl Normal [facility] [facility] Basophil percentageOrdered B y: Dr. Barth on 10-12-2022 Chloride [Moles/Vol] 105 mmol/L 98-107 [facility] Glucose [Mass/Vol] 187 mg/dL 74-106 [facility] Comment on above: Fasting Glucose resu lt greater than or equal to 126 mg/dL suggests DIABETES MELLITUS per A.D.A. criteria. Potassium [Moles/Vol] 3.8 mmol/L 3.5-5.1 [facility] Sodium [Moles/Vol] 139 mmol/L 136-145 [facility] WBC (Bld) [#/Vol] 7.0 10*3/uL 4.4-11.0 [facility] Blood erythrocytes count (nu mber/volume)Ordered By: Dr. Barth on 10-12-2022 RBC (Bld) [#/Vol] 4.22 10*6/uL 4.6-6.2 [facility] Blood hemoglobin measurement (mass/volume)Ordered By: Dr. Barth on 10-12-2022 Hemoglobin (Bld) [Mass/Vol] 12.9 g/dL 13.0-16.5 [facility] Blood platelet mean volumeOr dered By: Dr. Barth on 10-12-2022 Platelet mean volume (Bld) [Entitic vol] 11.9 fL 6.2-12.0 [facility] Determination of erythrocyte mean corpuscular volume (MCV)Ordered By: Dr. Barth on 10-12-2022 MCV (RBC) [Entitic vol] 92.7 fL 80-94 [facility] Hematocrit Auto (Bld) [Volum e fraction]Ordered By: Dr. Barth on 10-12-2022 Hematocrit (Bld) [Volume fraction] 39.1 % 40-54 [facility] Laboratory - Chemistry and C hemistry - challengeOrdered By: Dr. Barth on 10-12-2022 CO2 [Moles/Vol] 30.0 mmol/L 21.0-32.0 [facility] Urea nitrogen/Creatinine [Mass ratio] 9.9 mg/mg 10-20 [facility] Laboratory - Hematology and Cell countsOrdered By: Dr. Barth on 10-12-2022 Erythrocyte distribution width (RBC) [Entitic vol] 47.6 fL 35.1-43.9 [facility] Erythrocyte distribution width (RBC) [Ratio] 13.9 % 11.6-14.6 [facility] MCH (RBC) [Entitic mass] 30.6 pg 27.0-32.0 [facility] MCHC Auto (RBC) [Mass/Vol]Or dered By: Dr. Barth on 10-12-2022 MCHC (RBC) [Mass/Vol] 33.0 g/dL 32-36 [facility] No Panel InformationOrdered By: Dr. Barth on 10-12-2022 Estimated GFR (MDRD) Amer 90 mL/min >60 [facility] Comment on above: GFR Calc Estimated GFR (MDRD) Non-Af Amer 74 mL/min >60 [facility] Comment on above: Non- GFR Calc Platelets bldOrdered By: Dr. Barth on 10-12-2022 Platelets (Bld) [#/Vol] 200 10*3/uL 150-450 [facility] Serum or plasma calcium alfonso urement (mass/volume)Ordered By: Dr. Barth on 10-12-2022 Calcium [Mass/Vol] 8.9 mg/dL 8.5-10.1 [facility] Serum or plasma creatinine m easurement (mass/volume)Ordered By: Dr. Barth on 10-12-2022 Creatinine [Mass/Vol] 1.01 mg/dL 0.70-1.30 [facility] Comment on above: The validity of the calculated GFR & GFRAA in patients over 70 years has not been determined. Clinical correlation is essential. Serum or plasma urea nitroge n measurement (mass/volume)Ordered By: Dr. Barth on 10-12-2022 Urea nitrogen [Mass/Vol] 10 mg/dL 7-18 [facility] Thin prep Papanicolaou smear with manual screeningOrdered By: Dr. Barth on 10-12-2022 Thin prep Papanicolaou smear with manual screening 4 5-15 [facility] Basophil percentageon 2021 Chloride [Moles/Vol] 105 mmol/L 98-107 [facility] Work Phone: Glucose [Mass/Vol] 104 mg/dL 74-106 [facility] Work Phone: Comment on above: Fasting Glucose resu lt from 100 to 125 mg/dL suggests IMPAIRED HOMEOSTASIS per A.D.A. criteria. Potassium [Moles/Vol] 4.1 mmol/L 3.5-5.1 [facility] Work Phone: [phone] Sodium [Moles/Vol] 139 mmol/L 136-145 [facility] Work Phone: [phone] WBC (Bld) [#/Vol] 5.7 10*3/uL 4.4-11.0 [facility] Work Phone: [phone] Blood erythrocytes count (nu mber/volume)on 06-03-2022 RBC (Bld) [#/Vol] 3.87 10*6/uL 4.6-6.2 [facility] Work Phone: [phone] Blood hemoglobin measurement (mass/volume)on 06-03-2022 Hemoglobin (Bld) [Mass/Vol] 11.8 g/dL 13.0-16.5 [facility] Work Phone: [phone] Blood platelet mean volumeon 06-03-2022 Platelet mean volume (Bld) [Entitic vol] 11.2 fL 6.2-12.0 [facility] Work Phone: [phone] Determination of erythrocyte mean corpuscular volume (MCV)on 06-03-2022 MCV (RBC) [Entitic vol] 90.4 fL 80-94 [facility] Work Phone: [phone] Hematocrit Auto (Bld) [Volum e fraction]on 06-03-2022 Hematocrit (Bld) [Volume fraction] 35.0 % 40-54 [facility] Work Phone: [phone] Laboratory - Chemistry and C hemistry - challengeon 06-03-2022 CO2 [Moles/Vol] 28.0 mmol/L 21.0-32.0 [facility] Work Phone: [phone] Urea nitrogen/Creatinine [Mass ratio] 15.9 mg/mg 10-20 [facility] Work Phone: [phone] Laboratory - Hematology and Cell countson 06-03-2022 Erythrocyte distribution width (RBC) [Entitic vol] 47.1 fL 35.1-43.9 [facility] Work Phone: Erythrocyte distribution width (RBC) [Ratio] 14.3 % 11.6-14.6 [facility] Work Phone: MCH (RBC) [Entitic mass] 30.5 pg 27.0-32.0 [facility] Work Phone: MCHC Auto (RBC) [Mass/Vol]on 06-03-2022 MCHC (RBC) [Mass/Vol] 33.7 g/dL 32-36 [facility] Work Phone: No Panel Informationon 06-03 Estimated GFR (MDRD) Amer 84 mL/min >60 [facility] Work Phone: Comment on above: GFR Calc Estimated GFR (MDRD) Non-Af Amer 70 mL/min >60 [facility] Work Phone: Comment on above: Non- GFR Calc Platelets bldon 06-03-2022 Platelets (Bld) [#/Vol] 180 10*3/uL 150-450 [facility] Work Phone: Serum or plasma calcium alfonso urement (mass/volume)on 06-03-2022 Calcium [Mass/Vol] 9.1 mg/dL 8.5-10.1 [facility] Work Phone: Serum or plasma creatinine m easurement (mass/volume)on 06-03-2022 Creatinine [Mass/Vol] 1.07 mg/dL 0.70-1.30 [facility] Work Phone: Comment on above: The validity of the calculated GFR & GFRAA in patients over 70 years has not been determined. Clinical correlation is essential. Serum or plasma urea nitroge n measurement (mass/volume)on 06-03-2022 Urea nitrogen [Mass/Vol] 17 mg/dL 7-18 [facility] Work Phone: Thin prep Papanicolaou smear with manual screeningon 06-03-2022 Thin prep Papanicolaou smear with manual screening 6 5-15 [facility] Work Phone: Absolute lymphocyte counton 03-05-2022 Lymphocytes Auto (Unsp spec) [#/Vol] 2.16 10*3/uL 0.83-4.51 [facility] Work Phone: Basophil percentageon 2021 Basophils/100 WBC (Bld) 0.6 % 0-1 [facility] Work Phone: Chloride [Moles/Vol] 103 mmol/L 98-107 [facility] Work Phone: Eosinophils/100 WBC (Bld) 5.9 % 0-5 [facility] Work Phone: Glucose [Mass/Vol] 110 mg/dL 74-106 [facility] Work Phone: Comment on above: Fasting Glucose resu lt from 100 to 125 mg/dL suggests IMPAIRED HOMEOSTASIS per A.D.A. criteria. Neutrophils (Bld) [#/Vol] 3.8 10*3/uL 2.0-7.7 [facility] Work Phone: Neutrophils/100 WBC (Bld) 54.3 % 47-70 [facility] Work Phone: Potassium [Moles/Vol] 3.6 mmol/L 3.5-5.1 [facility] Work Phone: Sodium [Moles/Vol] 139 mmol/L 136-145 [facility] Work Phone: WBC (Bld) [#/Vol] 6.9 10*3/uL 4.4-11.0 [facility] Work Phone: Blood erythrocytes count (nu mber/volume)on 03-05-2022 RBC (Bld) [#/Vol] 3.99 10*6/uL 4.6-6.2 [facility] Work Phone: Blood hemoglobin measurement (mass/volume)on 03-05-2022 Hemoglobin (Bld) [Mass/Vol] 11.9 g/dL 13.0-16.5 [facility] Work Phone: Blood lymphocytes/100 leukoc yteson 03-05-2022 Lymphocytes/100 WBC (Bld) 31.1 % 19-41 [facility] Work Phone: Blood monocytes/100 leukocyt eson 03-05-2022 Monocytes/100 WBC (Bld) 7.8 % 0-10 [facility] Work Phone: Blood platelet mean volumeon 03-05-2022 Platelet mean volume (Bld) [Entitic vol] 11.5 fL 6.2-12.0 [facility] Work Phone: Determination of erythrocyte mean corpuscular volume (MCV)on 03-05-2022 MCV (RBC) [Entitic vol] 92.0 fL 80-94 [facility] Work Phone: Hematocrit Auto (Bld) [Volum e fraction]on 03-05-2022 Hematocrit (Bld) [Volume fraction] 36.7 % 40-54 [facility] Work Phone: Laboratory - Chemistry and C hemistry - challengeon 03-05-2022 CO2 [Moles/Vol] 30.0 mmol/L 21.0-32.0 [facility] Work Phone: Natriuretic peptide B (Bld) [Mass/Vol] 225.2 pg/mL 0-100 [facility] Work Phone: [phone] Urea nitrogen/Creatinine [Mass ratio] 11.4 mg/mg 10-20 [facility] Work Phone: Laboratory - Hematology and Cell countson 03-05-2022 Erythrocyte distribution width (RBC) [Entitic vol] 48.4 fL 35.1-43.9 [facility] Work Phone: [phone] Erythrocyte distribution width (RBC) [Ratio] 14.3 % 11.6-14.6 [facility] Work Phone: [phone] Immature granulocytes/100 WBC (Bld) 0.300 % 0.0-0.9 [facility] Work Phone: Comment on above: IG% - Immature Granu locytes (promyelocytes, myelocytes and metamyelocytes) > 1% indicates that a LEFT SHIFT is Present. MCH (RBC) [Entitic mass] 29.8 pg 27.0-32.0 [facility] Work Phone: Nucleated RBC/100 WBC (Bld) [Ratio] 0 % 0-5 [facility] Work Phone: MCHC Auto (RBC) [Mass/Vol]on 03-05-2022 MCHC (RBC) [Mass/Vol] 32.4 g/dL 32-36 [facility] Work Phone: No Panel Informationon 03-05 Estimated GFR (MDRD) Amer 95 mL/min >60 [facility] Work Phone: Comment on above: GFR Calc Estimated GFR (MDRD) Non-Af Amer 79 mL/min >60 [facility] Work Phone: Comment on above: Non- GFR Calc Platelets bldon 03-05-2022 Platelets (Bld) [#/Vol] 199 10*3/uL 150-450 [facility] Work Phone: Serum or plasma calcium alfonso urement (mass/volume)on 03-05-2022 Calcium [Mass/Vol] 8.3 mg/dL 8.5-10.1 [facility] Work Phone: Serum or plasma creatinine m easurement (mass/volume)on 03-05-2022 Creatinine [Mass/Vol] 0.96 mg/dL 0.70-1.30 [facility] Work Phone: Comment on above: The validity of the calculated GFR & GFRAA in patients over 70 years has not been determined. Clinical correlation is essential. Serum or plasma urea nitroge n measurement (mass/volume)on 03-05-2022 Urea nitrogen [Mass/Vol] 11 mg/dL 7-18 [facility] Work Phone: Thin prep Papanicolaou smear with manual screeningon 03-05-2022 Thin prep Papanicolaou smear with manual screening 6 5-15 [facility] Work Phone: No Panel Informationon 02-03 Prostate Specific Antigen Total 13.50 ng/mL 0.0-4.0 [facility] Work Phone: Comment on above: This test was perfor med using the TPSA assay method for the[employer] chemistry system. Values obtained with differentassay methods cannot be used interchangably.When changing PSA assays in the course of monitoring apatient, additional sequential testing should be carriedout to confirm baseline values. Absolute lymphocyte counton 10-16-2021 Lymphocytes Auto (Unsp spec) [#/Vol] 2.15 10*3/uL 0.83-4.51 [facility] Work Phone: Basophil percentageon 2020 Chloride [Moles/Vol] 104 mmol/L 98-107 [facility] Work Phone: [phone] Eosinophils/100 WBC (Bld) 7.8 % 0-5 [facility] Work Phone: Glucose [Mass/Vol] 104 mg/dL 74-106 [facility] Work Phone: Comment on above: Fasting Glucose resu lt from 100 to 125 mg/dL suggests IMPAIRED HOMEOSTASIS per A.D.A. criteria.Please note revised GLUCOSE reference range effective 2017. Neutrophils (Bld) [#/Vol] 4.4 10*3/uL 2.0-7.7 [facility] Work Phone: Potassium [Moles/Vol] 3.8 mmol/L 3.5-5.1 [facility] Work Phone: Sodium [Moles/Vol] 139 mmol/L 136-145 [facility] Work Phone: WBC (Bld) [#/Vol] 7.8 10*3/uL 4.4-11.0 [facility] Work Phone: Blood erythrocytes count (nu mber/volume)on 10-16-2021 RBC (Bld) [#/Vol] 4.17 10*6/uL 4.6-6.2 [facility] Work Phone: Blood hemoglobin measurement (mass/volume)on 10-16-2021 Hemoglobin (Bld) [Mass/Vol] 12.5 g/dL 13.0-16.5 [facility] Work Phone: Blood lymphocytes/100 leukoc yteson 10-16-2021 Lymphocytes/100 WBC (Bld) 27.4 % 19-41 [facility] Work Phone: Blood monocytes/100 leukocyt eson 10-16-2021 Monocytes/100 WBC (Bld) 8.4 % 0-10 [facility] Work Phone: Blood platelet mean volumeon 10-16-2021 Platelet mean volume (Bld) [Entitic vol] 10.8 fL 6.2-12.0 [facility] Work Phone: Determination of erythrocyte mean corpuscular volume (MCV)on 10-16-2021 MCV (RBC) [Entitic vol] 92.1 fL 80-94 [facility] Work Phone: Hematocrit Auto (Bld) [Volum e fraction]on 10-16-2021 Hematocrit (Bld) [Volume fraction] 38.4 % 40-54 [facility] Work Phone: Laboratory - Chemistry and C hemistry - challengeon 10-16-2021 CO2 [Moles/Vol] 28.0 mmol/L 21.0-32.0 [facility] Work Phone: Urea nitrogen/Creatinine [Mass ratio] 16.6 mg/mg 10-20 [facility] Work Phone: Laboratory - Hematology and Cell countson 10-16-2021 Basophils/100 WBC (Unsp spec) 0.6 % 0-1 [facility] Work Phone: Erythrocyte distribution width (RBC) [Entitic vol] 48.0 fL 35.1-43.9 [facility] Work Phone: [phone] Erythrocyte distribution width (RBC) [Ratio] 14.3 % 11.6-14.6 [facility] Work Phone: Immature granulocytes/100 WBC (Bld) 0.100 % 0.0-0.9 [facility] Work Phone: Comment on above: IG% - Immature Granu locytes (promyelocytes, myelocytes and metamyelocytes) > 1% indicates that a LEFT SHIFT is Present. MCH (RBC) [Entitic mass] 30.0 pg 27.0-32.0 [facility] Work Phone: [phone] Neutrophils/100 WBC (Bld) 55.7 % 47-70 [facility] Work Phone: [phone] Nucleated RBC/100 WBC (Bld) [Ratio] 0 % 0-5 [facility] Work Phone: [phone] MCHC Auto (RBC) [Mass/Vol]on 10-16-2021 MCHC (RBC) [Mass/Vol] 32.6 g/dL 32-36 [facility] Work Phone: No Panel Informationon 10-16 Estimated GFR (MDRD) Amer 111 mL/min >60 [facility] Work Phone: Comment on above: GFR Calc Estimated GFR (MDRD) Non-Af Amer 92 mL/min >60 [facility] Work Phone: Comment on above: Non- GFR Calc Prostate Specific Antigen Total 20.20 ng/mL 0.0-4.0 [facility] Work Phone: Comment on above: This test was perfor med using the TPSA assay method for the[facility]. Values obtained with differentassay methods cannot be used interchangably.When changing PSA assays in the course of monitoring apatient, additional sequential testing should be carriedout to confirm baseline values. Platelets bldon 10-16-2021 Platelets (Bld) [#/Vol] 247 10*3/uL 150-450 [facility] Work Phone: [phone] Serum or plasma calcium alfonso urement (mass/volume)on 10-16-2021 Calcium [Mass/Vol] 9.1 mg/dL 8.5-10.1 [facility] Work Phone: Serum or plasma creatinine m easurement (mass/volume)on 10-16-2021 Creatinine [Mass/Vol] 0.84 mg/dL 0.70-1.30 [facility] Work Phone: Comment on above: The validity of the calculated GFR & GFRAA in patients over 70 years has not been determined. Clinical correlation is essential. Serum or plasma thyroperoxid ase antibody assay (units/volume)on 10-16-2021 TPO Ab Qn [IU]/mL [facility] Work Phone: Comment on above: Performed at: [facility] [place] [id number] Director: Toi Ponce PhD, Phone: [phone] Serum or plasma urea nitroge n measurement (mass/volume)on 10-16-2021 Urea nitrogen [Mass/Vol] 14 mg/dL -18 [facility] Work Phone: Thin prep Papanicolaou smear with manual screeningon 10-16-2021 Thin prep Papanicolaou smear with manual screening 7 5- [facility] Work Phone: Lab Report: Basic Metabolic Profile (BMP)on 10-28-2017 Anion gap [Moles/Vol] 8 mmol/L Invalid Interpretation Code 5-15 [facility] Work Phone: [phone] Calcium [Mass/Vol] 8.8 mg/dL Invalid Interpretation Code 8.5-10.1 [facility] Work Phone: [phone] Chloride [Moles/Vol] 102 mmol/L Invalid Interpretation Code 98-107 [facility] Work Phone: [phone] CO2 (BldV) [Partial pressure] 29.0 mmol/L Invalid Interpretation Code 21.0-32.0 [facility] Work Phone: [phone] Creatinine [Mass/Vol] 1.06 mg/dL Invalid Interpretation Code 0.70-1.30 [facility] Work Phone: [phone] GFR/1.73 sq M.predicted among non-blacks MDRD (S/P/Bld) [Vol rate/Area] 71 mL/min/{1.73_m2} Invalid Interpretation Code >60 [employer] Work Phone: [phone] Glomerular Filtration rate 86 mL/min Invalid Interpretation Code >60 [employer] Work Phone: [phone] Glucose [Mass/Vol] 101 mg/dL Invalid Interpretation Code 70-110 [employer] Work Phone: [phone] Potassium [Moles/Vol] 3.6 mmol/L Invalid Interpretation Code 3.5-5.1 [employer] Work Phone: [phone] Sodium [Moles/Vol] 139 mmol/L Invalid Interpretation Code 136-145 [employer] Work Phone: [phone] Urea nitrogen [Mass/Vol] 18 mg/dL Invalid Interpretation Code 7-18 [employer] Work Phone: [phone] Urea nitrogen/Creatinine [Mass ratio] 17.1091496 mg/mg Invalid Interpretation Code 10-[address] [facility] [address] [employer] Phone: [phone] Pacemaker: Pacemaker/ICD [facility] 06-28-2017 lead advisory Device on Alert for early battery depletion. Pt refuses remote monitoring system at this time. 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 Left ventricular Ejection fraction 40 % Invalid Interpretation Code [employer] Work Phone: [phone] Office Visiton 05-24-2017 Documentation of current medications (procedure) Done Invalid Interpretation Code [facility] [employer] Phone: [phone] Office Visiton 04-12-2017 Fall risk assessment No Invalid Interpretation Code [facility] [employer] Phone: [phone] Lab Report: BNP,B-Type NATRI URETIC PEPTIDEon 10-09-2016 Natriuretic peptide B (Bld) [Mass/Vol] 134.5 pg/mL High 0-100 [employer] Work Phone: [phone] Lab Report: Basic Metabolic Profile (BMP)on 10-09-2016 Anion gap 6 mmol/L Invalid Interpretation Code 5-15 [employer] Work Phone: [phone] Anion gap [Moles/Vol] 6 mmol/L Invalid Interpretation Code 5-15 [employer] Work Phone: [phone] BUN/Creatinine Ratio 14.8 RATIO Invalid Interpretation Code 10-20 [employer] Work Phone: [phone] Calcium [Mass/Vol] 8.8 mg/dL Invalid Interpretation Code 8.5-10.1 [employer] Work Phone: [phone] Chloride [Moles/Vol] 103 mmol/L Invalid Interpretation Code 98-107 [employer] Work Phone: [phone] CO2 32.0 mmol/L Invalid Interpretation Code 21.0-32.0 [employer] Work Phone: [phone] CO2 (BldV) [Partial pressure] 32.0 mmol/L Invalid Interpretation Code 21.0-32.0 [employer] Work Phone: [phone] Creatinine [Mass/Vol] 1.22 mg/dL Invalid Interpretation Code 0.70-1.30 [employer] Work Phone: [phone] eGFR (non-black) 73 mL/min/{1.73_m2} Invalid Interpretation Code >60 [employer] Work Phone: [phone] GFR/1.73 sq M.predicted among non-blacks MDRD (S/P/Bld) [Vol rate/Area] 61 mL/min/{1.73_m2} Invalid Interpretation Code >60 [employer] Work Phone: [phone] Glomerular Filtration rate 73 mL/min Invalid Interpretation Code >60 [employer] Work Phone: [phone] Glucose [Mass/Vol] 102 mg/dL Invalid Interpretation Code 70-110 [employer] Work Phone: [phone] Potassium [Moles/Vol] 3.9 mmol/L Invalid Interpretation Code 3.5-5.1 [employer] Work Phone: [phone] Sodium [Moles/Vol] 141 mmol/L Invalid Interpretation Code 136-145 [employer] Work Phone: [phone] Urea nitrogen [Mass/Vol] 18 mg/dL Invalid Interpretation Code 7-18 [employer] Work Phone: [phone] Urea nitrogen/Creatinine [Mass ratio] 14.0211604 mg/mg Invalid Interpretation Code 10-20 [facility] Work Phone: [phone] Lab Report: CBC W/Diff, Auto matedon 10-09-2016 Absolute Neut 2.3 X10 3/UL Invalid Interpretation Code 2.0-7.7 [facility] Work Phone: [phone] Basophils/100 WBC (Bld) 0.4 % Invalid Interpretation Code 0-1 [facility] Work Phone: [phone] Basophils/100 WBC Auto (Bld) 0.4 % Invalid Interpretation Code 0-1 [facility] Work Phone: [phone] Eosinophils/100 leukocytes 5.8 % High 0-5 [facility] Work Phone: [phone] Eosinophils/100 WBC (Bld) 5.8 % High 0-5 [facility] Work Phone: [phone] Erythrocyte distribution width (RBC) [Ratio] 14.2 % Invalid Interpretation Code 11.6-14.6 [facility] Work Phone: [phone] Erythrocyte distribution width Auto Ratio (RBC) 14.2 % Invalid Interpretation Code 11.6-14.6 [facility] Work Phone: [phone] Erythrocytes (RBC) 4.41 10*6/uL Low 4.6-6.[address] [facility] [address] [facility] Work Phone: [phone] Hematocrit (Bld) [Volume fraction] 40.5 % Invalid Interpretation Code 40-54 [facility] Work Phone: [phone] Hematocrit (HCT) 40.5 % Invalid Interpretation Code 40-54 [facility] Work Phone: [phone] Hemoglobin (Bld) [Mass/Vol] 13.4 g/dL Invalid Interpretation Code 13.0-16.5 [facility] Work Phone: [phone] Immature granulocytes/100 WBC (Bld) 0.200 % Invalid Interpretation Code 0.0-0.9 [facility] Work Phone: [phone] Lymphocytes 1.60 X10 3/UL Invalid Interpretation Code 0.83-4.51 [facility] Work Phone: [phone] Lymphocytes (Bld) [#/Vol] 1.60 X10 3/UL Invalid Interpretation Code 0.83-4.51 [facility] Work [phone] Lymphocytes/100 leukocytes 34.6 % Invalid Interpretation Code 19-41 [employer] Work Phone: Lymphocytes/100 WBC (Bld) 34.6 % Invalid Interpretation Code 19-41 [employer] Work Phone: MCH 30.4 pg Invalid Interpretation Code 27.0-32.0 [employer] [facility] Work Phone: [phone] MCH (RBC) [Entitic mass] 30.4 pg Invalid Interpretation Code 27.0-32.0 [employer] Work Phone: MCHC mass conc (RBC) 33.1 G/GL Invalid Interpretation Code 32-36 [employer] Work Phone: [phone] MCV 91.8 fL Invalid Interpretation Code 80-94 [employer] Work Phone: [phone] MCV (RBC) [Entitic vol] 91.8 fL Invalid Interpretation Code 80-94 [employer] Work Phone: [phone] mean corpuscular hemoglobin concentration, RBC 33.1 G/GL Invalid Interpretation Code 32-36 [employer] Work Phone: Monocytes/100 leukocytes 9.5 % Invalid Interpretation Code 0-10 [employer] Work Phone: [phone] Monocytes/100 WBC (Bld) 9.5 % Invalid Interpretation Code 0-10 [employer] Work Phone: [phone] neutrophil count, blood 2.3 X10 3/UL Invalid Interpretation Code 2.0-7.7 [employer] Work Phone: Neutrophils/100 WBC (Bld) 49.5 % Invalid Interpretation Code 47-70 [employer] Work Phone: Neutrophils/100 WBC Auto (Bld) 49.5 % Invalid Interpretation Code 47-70 [employer] Work Phone: Platelet mean volume (Bld) [Entitic vol] 11.6 fL Invalid Interpretation Code 6.2-12.0 [employer] Work Phone: [phone] Platelets 170 10*3/mm3 Invalid Interpretation Code 150-450 [facility] Work Phone: [phone] Platelets (Bld) [#/Vol] 170 10*3/uL Invalid Interpretation Code 150-450 [facility] Work Phone: [phone] PMV by Armando 11.6 fL Invalid Interpretation Code 6.2-12.0 [facility] Work Phone: [phone] RBC (Bld) [#/Vol] 4.41 10*6/uL Low 4.6-6.2 [facility] Work Phone: [phone] RDW SD 47.8 fL High 35.1-43.9 [facility] Work Phone: [phone] red blood cell distribution width, size density 47.8 fL High 35.1-43.9 [facility] Work Phone: [phone] WBC (Bld) [#/Vol] 4.6 10*3/uL Invalid Interpretation Code 4.4-11.0 [facility] Work Phone: [phone] WBC (Leukocytes) 4.6 10*3/uL Invalid Interpretation Code 4.4-11.0 [facility] Work Phone: [phone] Lab Report: T4 Total, Thyrox inon 10-09-2016 T4 [Mass/Vol] 9.1 ug/dL Invalid Interpretation Code 4.5-12.1 [facility] Work Phone: [phone] Lab Report: Thyroid Stim Hor fernanda (TSH)on 10-09-2016 Thyroid stimulating hormone (TSH) 0.98 u[iU]/mL Invalid Interpretation Code 0.358-3.74 [facility] Work Phone: [phone] TSH Qn 0.98 m[IU]/L Invalid Interpretation Code 0.358-3.74 [facility] Work Phone: [phone] 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 Left ventricular Ejection fraction 35 % Invalid Interpretation Code [facility] Work Phone: [phone] Lab Report: Prothrombin Time w/INRon 04-08-2016 INR Coag (PPP) [Relative time] 1.1 {INR} Invalid Interpretation Code [facility] Work Phone: [phone] Prothrombin time (PT) Coag time (PPP) 13.4 s Invalid Interpretation Code 11.7-14.9 [employer] Work Phone: [phone] PT Coag (PPP) [Time] 13.964356734 s Invalid Interpretation Code 11.7-14.9 [employer] Work Phone: [phone] Lab Report: Urinalysis, Rout ine (Dipstick)on 04-08-2016 Albumin Ql (U) 15 High Negative [employer] Work Phone: [phone] Bilirubin Ql (U) Negative Invalid Interpretation Code Negative [employer] Work Phone: [phone] Bilirubin Ql (U) Negative Invalid Interpretation Code Negative [employer] Work Phone: [phone] Clarity (U) Clear Invalid Interpretation Code Clear [employer] Work Phone: [phone] Color (U) Yellow Invalid Interpretation Code Yellow [employer] Work Phone: [phone] Glucose Ql (U) 100 mg/dL High Normal [employer] Work Phone: [phone] Ketones (U) [Mass/Vol] Negative Invalid Interpretation Code Negative [employer] Work Phone: [phone] Leukocyte esterase Test strip Ql (U) Negative Invalid Interpretation Code Negative [employer] Work Phone: [phone] NITRITE UR Negative Invalid Interpretation Code Negative [employer] Work Phone: [phone] Occult Blood, urine Negative Invalid Interpretation Code Negative [employer] Work Phone: [phone] OCCULT BLOOD-UR Negative Invalid Interpretation Code Negative [employer] Work Phone: [phone] pH (U) 5.0 [pH] Invalid Interpretation Code 5.0 - 8.0 [employer] Work Phone: [phone] Specific gravity Refractometry (U) [Rel density] 1.025 Invalid Interpretation Code 1.002-1.03 0 [employer] Work Phone: [phone] Urine, ketones presence Negative Invalid Interpretation Code Negative [employer] Work Phone: [phone] Urine, leukocyte esterase presence Negative Invalid Interpretation Code Negative [employer] Work Phone: [phone] Urine, pH 5.0 [pH] Invalid Interpretation Code 5.0 - 8.0 [employer] Work Phone: [phone] Urine, protein 15 mg/dL High Negative [employer] Work Phone: [phone] UROBILI Normal mg/dl Invalid Interpretation Code Normal [employer] Work Phone: [phone] Office Visiton 04-08-2016 Tobacco smoking status Tobacco smoking s tatus NHIS Invalid Interpretation Code [employer] Work Phone: [phone] Tobacco use status HS Never smoker Invalid Interpretation Code [employer] Work Phone: [phone] Replaced Document: [employer] E CG Observationson 04-08-2016 EKG QRS axis -22 deg Invalid Interpretation Code [employer] Work Phone: [phone] electrocardiogram interpretation Sinus Bradycardia - Nonspecific T-abnormality. ABNORMAL Invalid Interpretation Code [employer] Work Phone: [phone] GE use only - for [employer] import when terms are not otherwise specified 440 ms Invalid Interpretation Code [employer] Work Phone: [phone] Heart rate 52 /min Invalid Interpretation Code [employer] Work Phone: [phone] Interpretation Sinus Bradycardia - Nonspecific T-abnormality. ABNORMAL Invalid Interpretation Code [employer] Work Phone: [phone] P [place] 25 deg Invalid Interpretation Code [employer] Work Phone: [phone] P wave axis, electrocardiogram 25 deg Invalid Interpretation Code [employer] Work Phone: [phone] SC Interval 174 ms Invalid Interpretation Code [employer] Work Phone: [phone] SC interval, electrocardiogram 174 ms Invalid Interpretation Code [employer] Work Phone: [phone] QRS axis, electrocardiogram -22 deg Invalid Interpretation Code [employer] Work Phone: QRS Duration 108 ms Invalid Interpretation Code [employer] Work Phone: [phone] QRS duration, electrocardiogram 108 ms Invalid Interpretation Code [employer] Work Phone: QT Interval new path ms Invalid Interpretation Code [employer] Work Phone: [phone] QT interval, electrocardiogram new path ms Invalid Interpretation Code [employer] Work Phone: [phone] QTc Serra 440 ms Invalid Interpretation Code [facility] Work Phone: [phone] T [place] 90 deg Invalid Interpretation Code [facility] Work Phone: [phone] T wave axis, electrocardiogram 90 deg Invalid Interpretation Code [facility] Work Phone: [phone] Lab Report: Lipid Profileon 09-30-2015 Cholesterol [Mass/Vol] 107 mg/dL Invalid Interpretation Code 200 [facility] Work Phone: [phone] Cholesterol in HDL [Mass/Vol] 45 mg/dL Invalid Interpretation Code [facility] Work Phone: [phone] Cholesterol in LDL [Mass/Vol] 42 mg/dL Invalid Interpretation Code 0-130 [facility] Work Phone: [phone] Lipoprotein.pre-beta [Mass/Vol] 20 mg/dL Invalid Interpretation Code 5-40 [facility] Work Phone: [phone] Triglyceride [Mass/Vol] 99 mg/dL Invalid Interpretation Code [facility] Work Phone: [phone] Lab Report: Liver Profileon 09-30-2015 Albumin [Mass/Vol] 4.0 g/dL Invalid Interpretation Code 3.4-5.0 [facility] Work Phone: [phone] Alkaline phosphatase (ALP) 59 U/L Invalid Interpretation Code 50-136 [facility] Work Phone: [phone] ALP (Bld) [Catalytic activity/Vol] 59 U/L Invalid Interpretation Code 50-136 [facility] Work Phone: [phone] ALT [Catalytic activity/Vol] 28 U/L Invalid Interpretation Code 12-78 [facility] Work Phone: [phone] AST [Catalytic activity/Vol] 20 U/L Invalid Interpretation Code 15-37 [facility] Work Phone: [phone] Bilirubin [Mass/Vol] 1.40 mg/dL High 0.20-1.00 [facility] Work Phone: [phone] Bilirubin.direct [Mass/Vol] 0.30 mg/dL Invalid Interpretation Code 0.00-0.30 [facility] Work Phone: [phone] Globulin 3.2 g/dL Invalid Interpretation Code 2.3-3.5 [facility] Work Phone: [phone] Globulin (S) [Mass/Vol] 3.2 g/dL Invalid Interpretation Code 2.3-3.5 [facility] Work Phone: [phone] Protein [Mass/Vol] 7.2 g/dL Invalid Interpretation Code 6.4-8.2 [facility] Work Phone: [phone] Office Visit: [facility] 09-09-20 15 General cardiovascular disease 10Y risk [#] Grisel'Agovalerie Not enough information Invalid Interpretation Code [facility] Work Phone: [phone] Lab Report: BNP,B-Type NATRI URETIC PEPTIDEon 11-14-2014 Natriuretic peptide B (Bld) [Mass/Vol] 86.4 pg/mL Invalid Interpretation Code 0-100 [employer] Work Phone: [phone] Lab Report: CBC W/Diff, Auto matedon 11-14-2014 Absolute Neut 2.7 X10 3/UL Invalid Interpretation Code 2.0-7.7 [facility] Work Phone: [phone] Absolute Neutrophil count 2.7 X10 3/UL Invalid Interpretation Code 2.0-7.7 [facility] Work Phone: [phone] Office Visit: [facility] 11-14-19 15 cardiac risk group C Invalid Interpretation Code [facility] Work Phone: [phone] Tobacco smoking status Never Invalid Interpretation Code [facility] Work Phone: [phone] Lab Report: MGon 08-12-2012 Magnesium [Mass/Vol] 2.0 mg/dL Normal 1.8-2.[address] [facility] Work Phone: [phone] Replaced Document: Brent Brown CG Observationson 08-10-2012 Pulse (Heart Rate) 407 ms Invalid Interpretation Code [facility] Work Phone: [phone] QT interval/QT interval (corrected for heart rate), electrocardiogram 407 ms Invalid Interpretation Code [facility] Work Phone: [phone] Vital Signs Date Time Vital Sign Value Performing Clinician Facility 04-29-2025 11:15-0400 Body temperature 97.4 [degF] Dr. John Noel DO Work Phone: [facility] 04-29-2025 11:15-0400 Diastolic blood pressure 58 mm[Hg] Dr. John Noel DO Work Phone: [facility] 04-29-2025 11:15-0400 Heart rate 63 /min Dr. John Noel DO Work Phone: [facility] 04-29-2025 11:15-0400 Respiratory rate 16 /min Dr. John Noel DO Work Phone: [facility] 04-29-2025 11:15-0400 SaO2% (BldA) [Mass fraction] 98 % Dr. John Noel DO Work Phone: [facility] 04-29-2025 11:15-0400 Systolic blood pressure 127 mm[Hg] Dr. John Noel DO Work Phone: [facility] 04-28-2025 20:32-0400 Body height 160.[address] John Noel DO Work Phone: [facility] 04-28-2025 20:32-0400 Body mass index (BMI) [Ratio] 20.7 kg/m2 Dr. John Noel DO Work Phone: [facility] 04-28-2025 20:32-0400 Body weight 53.[address] John Noel DO Work Phone: [facility] 04-28-2025 18:19-0400 Body temperature 98.7 [degF] Dr. John Noel DO Work Phone: [facility] 04-28-2025 18:19-0400 Diastolic blood pressure 79 mm[Hg] Dr. John Noel DO Work Phone: [facility] 04-28-2025 18:19-0400 Heart rate 80 /min Dr. John Noel DO Work Phone: [facility] 04-28-2025 18:19-0400 Respiratory rate 16 /min Dr. John Noel DO Work Phone: [facility] 04-28-2025 18:19-0400 SaO2% (BldA) [Mass fraction] 100 % Dr. John Noel DO Work Phone: [facility] 04-28-2025 18:19-0400 Systolic blood pressure 137 mm[Hg] Dr. John Noel DO Work Phone: [facility] 04-28-2025 15:25-0400 Body height 160.[address] John Noel DO Work Phone: [facility] 04-28-2025 15:25-0400 Body mass index (BMI) [Ratio] 20.9 kg/m2 Dr. John Noel DO Work Phone: [facility] 04-28-2025 15:25-0400 Body weight 53.[address] John Noel DO Work Phone: [facility] 04-27-2025 23:07-0400 Body temperature 98.3 [degF] Dr. John Noel DO Work Phone: [facility] 04-27-2025 23:07-0400 Diastolic blood pressure 60 mm[Hg] Dr. John Noel DO Work Phone: [facility] 04-27-2025 23:07-0400 Heart rate 100 /min Dr. John Noel DO Work Phone: [facility] 04-27-2025 23:07-0400 Respiratory rate 18 /min Dr. John Noel DO Work Phone: [facility] 04-27-2025 23:07-0400 SaO2% (BldA) [Mass fraction] 97 % Dr. John Noel DO Work Phone: [facility] 04-27-2025 23:07-0400 Systolic blood pressure 146 mm[Hg] Dr. oJhn Noel DO Work Phone: [facility] 04-27-2025 20:05-0400 Body height 160.[address] John Noel DO Work Phone: [facility] 04-27-2025 20:05-0400 Body mass index (BMI) [Ratio] 21.2 kg/m2 Dr. John Noel DO Work Phone: [facility] 04-27-2025 20:05-0400 Body weight 54.[address] John Noel DO Work Phone: [facility] 03-12-2025 07:30-0400 Body mass index (BMI) [Ratio] 20.7 kg/m2 Dr. John Noel DO Work Phone: [facility] 03-12-2025 07:30-0400 Body weight 53.[address] John Noel DO Work Phone: [facility] 03-12-2025 07:30-0400 Diastolic blood pressure 79 mm[Hg] Dr. John Noel DO Work Phone: [facility] 03-12-2025 07:30-0400 Heart rate 69 /min Dr. John Noel DO Work Phone: [facility] 03-12-2025 07:30-0400 Respiratory rate 18 /min Dr. John Noel DO Work Phone: [facility] 03-12-2025 07:30-0400 SaO2% (BldA) [Mass fraction] 97 % Dr. John Noel DO Work Phone: [facility] 03-12-2025 07:30-0400 Systolic blood pressure 139 mm[Hg] Dr. John Noel DO Work Phone: [facility] 02-26-2025 15:47-0400 Diastolic blood pressure 94 mm[Hg] Jian Jiménez MD MPH Work Phone: [facility] 02-26-2025 15:47-0400 Heart rate 72 /min Jian Jiménez MD MPH Work Phone: [facility] 02-26-2025 15:47-0400 Systolic blood pressure 162 mm[Hg] Jian Jiménez MD MPH Work Phone: [facility] 12-16-2024 17:23-0500 Body temperature 98.4 [degF] Dr. John Noel DO Work Phone: [facility] 12-16-2024 17:23-0500 Diastolic blood pressure 83 mm[Hg] Dr. John Noel DO Work Phone: [facility] 12-16-2024 17:23-0500 Heart rate 89 /min Dr. John Noel DO Work Phone: [facility] 12-16-2024 17:23-0500 Respiratory rate 17 /min Dr. John Noel DO Work Phone: [facility] 12-16-2024 17:23-0500 SaO2% (BldA) [Mass fraction] 96 % Dr. John Noel DO Work Phone: [facility] 12-16-2024 17:23-0500 Systolic blood pressure 146 mm[Hg] Dr. John Noel DO Work Phone: [facility] 12-16-2024 14:58-0500 Body height 160.[address] John Noel DO Work Phone: [facility] 12-16-2024 14:58-0500 Body mass index (BMI) [Ratio] 20 kg/m2 Dr. John Noel DO Work Phone: [facility] 12-16-2024 14:58-0500 Body weight 51.[address] John Noel DO Work Phone: [facility] 12-13-2024 15:40-0500 Body height [address] [facility] 12-13-2024 15:40-0500 Body mass index (BMI) [Ratio] 20.55 kg[facility]m2 [facility] 12-13-2024 15:40-0500 Body weight 52.[address] [facility] 11-10-2024 10:58-0500 Body mass index (BMI) [Ratio] 21.4 kg/m2 Dr. John Noel DO Work Phone: [facility] 11-10-2024 10:58-0500 Body weight 54.[address] John Noel DO Work Phone: [facility] 11-10-2024 10:58-0500 Diastolic blood pressure 64 mm[Hg] Dr. John Noel DO Work Phone: [facility] 11-10-2024 10:58-0500 Heart rate 69 /min Dr. John Noel DO Work Phone: [facility] 11-10-2024 10:58-0500 Respiratory rate 16 /min Dr. John Noel DO Work Phone: [facility] 11-10-2024 10:58-0500 Systolic blood pressure 142 mm[Hg] Dr. John Noel DO Work Phone: [facility] 07-25-2024 13:00-0400 Diastolic blood pressure 61 mm[Hg] Asmita Zambrano MD Work Phone: [facility] 07-25-2024 13:00-0400 Heart rate 60 /min Asmita Zambrano MD Work Phone: [facility] 07-25-2024 13:00-0400 Respiratory rate 18 /min Asmita Zambrano MD Work Phone: [facility] 07-25-2024 13:00-0400 SaO2% (BldA) [Mass fraction] 96 % Asmita Zambrano MD Work Phone: [facility] 07-25-2024 13:00-0400 Systolic blood pressure 152 mm[Hg] Asmita Zambrano MD Work Phone: [facility] 07-25-2024 12:00-0400 Body temperature 97.5 [degF] Asmita Zambrano MD Work Phone: 7(427)873-528924 [place] [address] 07-25-2024 08:58-0400 Body height 160 cm Asmita Zambrano MD Work Phone: 3(687)380-933224 [place] [address] 07-25-2024 08:58-0400 Body mass index (BMI) [Ratio] 19.49 kg/m2 Asmita Zambrano MD Work Phone: 4(417)798-310624 [place] [address] 07-25-2024 08:58-0400 Body weight 49.9 kg Asmita Zambrano MD Work Phone: 6(517)116-282724 [place] [address] 07-12-2024 15:25-0400 Body mass index (BMI) [Ratio] 18.95 kg/m2 Asmita Zambrano MD Work Phone: 3(304)948-846524 [place] [address] 07-12-2024 15:25-0400 Body weight 48.53 kg Asmita Zambrano MD Work Phone: 1(873)084-786324 [place] [address] 07-12-2024 15:25-0400 Diastolic blood pressure 74 mm[Hg] Asmita Zambrano MD Work Phone: 9(368)031-72[address] [place] [address] 07-12-2024 15:25-0400 Heart rate 68 /min Asmita Zambrano MD Work Phone: 3(901)876-088324 [place] [address] 07-12-2024 15:25-0400 Systolic blood pressure 143 mm[Hg] Asmita Zambrano MD Work Phone: 0(638)515-277324 [place] [address] 06-28-2024 13:36-0400 Body mass index (BMI) [Ratio] 18.6 kg/m2 Asmita Zambrano MD Work Phone: 7(984)750-090424 [place] [address] 06-28-2024 13:36-0400 Body weight 47.63 kg Asmita Zambrano MD Work Phone: 3(708)968-396924 [place] [address] 06-28-2024 13:36-0400 Diastolic blood pressure 80 mm[Hg] Asmita Zambrano MD Work Phone: 8(741)479-699824 [place] [address] 06-28-2024 13:36-0400 Heart rate 62 /min Asmita Zambrano MD Work Phone: [facility] 06-28-2024 13:36-0400 Systolic blood pressure 167 mm[Hg] Asmita Zambrano MD Work Phone: [facility] 06-14-2024 13:14-0400 Body height 160 cm Asmita Zambrano MD Work Phone: 8(609)452-806524 [place] [address] 06-14-2024 13:14-0400 Body mass index (BMI) [Ratio] 18.6 kg/m2 Asmita Zambrano MD Work Phone: 3(649)654-800024 [place] [address] 06-14-2024 13:14-0400 Body weight 47.63 kg Asmita Zambrano MD Work Phone: 1(746)639-769824 [place] [address] 05-17-2024 13:17-0400 Body height 160 cm Asmita Zambrano MD Work Phone: 2(310)532-647224 [place] [address] 05-17-2024 13:17-0400 Body mass index (BMI) [Ratio] 20.02 kg/m2 Asmita Zambrano MD Work Phone: 9(749)854-353924 [place] [address] 05-17-2024 13:17-0400 Body weight 51.26 kg Asmita Zambrano MD Work Phone: 8(647)958-801724 [place] [address] 05-17-2024 13:17-0400 Respiratory rate 16 /min Asmita Zambrano MD Work Phone: 2(687)060-852524 [place] [address] 04-26-2024 13:58-0400 Body weight 50.8 kg Asmita Zambrano MD Work Phone: 6(924)702-636724 [place] [address] 04-26-2024 13:58-0400 Respiratory rate 16 /min Asmita Zambrano MD Work Phone: 5(541)645-993324 [place] [address] 11-23-2023 14:19-0500 Body height 160.[address] John Noel Work Phone: [facility] 11-23-2023 14:19-0500 Body mass index (BMI) [Ratio] 21 kg/m2 Dr. John Noel Work Phone: [facility] 11-23-2023 14:19-0500 Body weight 53.[address] John Noel Work Phone: [facility] 11-23-2023 14:19-0500 Diastolic blood pressure 69 mm[Hg] Dr. John Noel Work Phone: [facility] 11-23-2023 14:19-0500 Heart rate 66 /min Dr. John Noel Work Phone: [facility] 11-23-2023 14:19-0500 Respiratory rate 18 /min Dr. John Noel Work Phone: [facility] 11-23-2023 14:19-0500 SaO2% (BldA) [Mass fraction] 99 % Dr. John Noel Work Phone: [facility] 11-23-2023 14:19-0500 Systolic blood pressure 128 mm[Hg] Dr. John Noel Work Phone: [facility] 10-22-2023 16:24-0500 Body temperature 98.4 [degF] Dr. John Noel Work Phone: [facility] 10-22-2023 16:24-0500 Diastolic blood pressure 60 mm[Hg] Dr. John Noel Work Phone: [facility] 10-22-2023 16:24-0500 Heart rate 64 /min Dr. John Noel Work Phone: [facility] 10-22-2023 16:24-0500 Respiratory rate 18 /min Dr. John Noel Work Phone: [facility] 10-22-2023 16:24-0500 SaO2% (BldA) [Mass fraction] 99 % Dr. John Noel Work Phone: [facility] 10-22-2023 16:24-0500 Systolic blood pressure 110 mm[Hg] Dr. John Noel Work Phone: [facility] 10-20-2023 16:00-0500 Body height 160.[address] John Noel Work Phone: [facility] 10-20-2023 16:00-0500 Body mass index (BMI) [Ratio] 20.7 kg/m2 Dr. John Noel Work Phone: [facility] 10-20-2023 16:00-0500 Body weight [address] John Noel Work Phone: [facility] 09-06-2023 14:09-0500 Body temperature 97.4 [degF] Dr. John Noel Work Phone: [facility] 09-06-2023 14:09-0500 Diastolic blood pressure 74 mm[Hg] Dr. John Noel Work Phone: [facility] 09-06-2023 14:09-0500 Heart rate 78 /min Dr. John Noel Work Phone: [facility] 09-06-2023 14:09-0500 Respiratory rate 18 /min Dr. John Noel Work Phone: [facility] 09-06-2023 14:09-0500 SaO2% (BldA) [Mass fraction] 95 % Dr. John Noel Work Phone: [facility] 09-06-2023 14:09-0500 Systolic blood pressure 139 mm[Hg] Dr. John Noel Work Phone: [facility] 09-06-2023 06:00-0500 Body mass index (BMI) [Ratio] 19.2 kg/m2 Dr. John Noel Work Phone: [facility] 09-06-2023 06:00-0500 Body weight 49.[address] John Noel Work Phone: [facility] 09-06-2023 04:00-0500 Body temperature 97.5 [degF] Dr. John Noel Work Phone: [facility] 09-06-2023 04:00-0500 Diastolic blood pressure 57 mm[Hg] Dr. John Noel Work Phone: [facility] 09-06-2023 04:00-0500 Heart rate 64 /min Dr. John Noel Work Phone: [facility] 09-06-2023 04:00-0500 Respiratory rate 16 /min Dr. John Noel Work Phone: [facility] 09-06-2023 04:00-0500 SaO2% (BldA) [Mass fraction] 97 % Dr. John Noel Work Phone: [facility] 09-06-2023 04:00-0500 Systolic blood pressure 118 mm[Hg] Dr. John Noel Work Phone: [facility] 09-05-2023 09:30-0500 Body height 160.[address] John Noel Work Phone: [facility] 09-04-2023 18:13-0400 Body temperature 98.2 [degF] Dr. John Noel Work Phone: [facility] 09-04-2023 18:13-0400 Diastolic blood pressure 76 mm[Hg] Dr. John Noel Work Phone: [facility] 09-04-2023 18:13-0400 Heart rate 82 /min Dr. John Noel Work Phone: [facility] 09-04-2023 18:13-0400 Respiratory rate 14 /min Dr. John Noel Work Phone: [facility] 09-04-2023 18:13-0400 SaO2% (BldA) [Mass fraction] 97 % Dr. John Noel Work Phone: [facility] 09-04-2023 18:13-0400 Systolic blood pressure 108 mm[Hg] Dr. John Noel Work Phone: [facility] 09-04-2023 15:20-0400 Body height 160.[address] John Noel Work Phone: [facility] 09-04-2023 15:20-0400 Body mass index (BMI) [Ratio] 19.9 kg/m2 Dr. John Noel Work Phone: [facility] 09-04-2023 15:20-0400 Body weight 51.[address] John Noel Work Phone: [facility] 06-17-2023 14:40-0400 Diastolic blood pressure 73 mm[Hg] Dr. John Noel Work Phone: [facility] 06-17-2023 14:40-0400 Heart rate 55 /min Dr. John Noel Work Phone: [facility] 06-17-2023 14:40-0400 Respiratory rate 16 /min Dr. John Noel Work Phone: [facility] 06-17-2023 14:40-0400 Systolic blood pressure 148 mm[Hg] Dr. John Noel Work Phone: [facility] 02-25-2023 14:39-0400 Body height 160.[address] John Noel Work Phone: [facility] 02-25-2023 14:39-0400 Body mass index (BMI) [Ratio] 30 kg/m2 Dr. John Noel Work Phone: [facility] 02-25-2023 14:39-0400 Body weight 76.[address] John Noel Work Phone: [facility] 02-25-2023 14:39-0400 Diastolic blood pressure 83 mm[Hg] Dr. John Noel Work Phone: [facility] 02-25-2023 14:39-0400 Heart rate 78 /min Dr. John Noel Work Phone: [facility] 02-25-2023 14:39-0400 Respiratory rate 18 /min Dr. John Noel Work Phone: [facility] 02-25-2023 14:39-0400 Systolic blood pressure 130 mm[Hg] Dr. John Noel Work Phone: [facility] 01-06-2023 12:03-0500 Diastolic blood pressure 51 mm[Hg] Dr. John Noel Work Phone: [facility] 01-06-2023 12:03-0500 Heart rate 76 /min Dr. John Noel Work Phone: [facility] 01-06-2023 12:03-0500 Respiratory rate 15 /min Dr. John Noel Work Phone: [facility] 01-06-2023 12:03-0500 SaO2% (BldA) [Mass fraction] 96 % Dr. John Noel Work Phone: [facility] 01-06-2023 12:03-0500 Systolic blood pressure 109 mm[Hg] Dr. John Noel Work Phone: [facility] 01-06-2023 08:51-0500 Body mass index (BMI) [Ratio] 21 kg/m2 Dr. John Noel Work Phone: [facility] 01-06-2023 08:51-0500 Body temperature 98.2 [degF] Dr. John Noel Work Phone: [facility] 01-06-2023 08:51-0500 Body weight 53.[address] John Noel Work Phone: [facility] 12-28-2022 00:08-0500 Diastolic blood pressure 77 mm[Hg] Dr. Shailesh Mancini Work Phone: [facility] 12-28-2022 00:08-0500 Heart rate 72 /min Dr. Shailesh Mancini Work Phone: [facility] 12-28-2022 00:08-0500 Respiratory rate 16 /min Dr. Shailesh Mancini Work Phone: [facility] 12-28-2022 00:08-0500 SaO2% (BldA) [Mass fraction] 98 % Dr. Shailesh Mancini Work Phone: [facility] 12-28-2022 00:08-0500 Systolic blood pressure 139 mm[Hg] Dr. Shailesh Mancini Work Phone: [facility] 12-27-2022 20:29-0500 Body height 160.[address] Shailesh Mancini Work Phone: [facility] 12-27-2022 20:29-0500 Body mass index (BMI) [Ratio] 20.5 kg/m2 Dr. Shailesh Mancini Work Phone: [facility] 12-27-2022 20:29-0500 Body temperature 97.1 [degF] Dr. Shailesh Mancini Work Phone: [facility] 12-27-2022 20:29-0500 Body weight 52.[address] Shailesh Mancini Work Phone: [facility] 10-21-2022 17:07-0500 Body temperature 97.9 [degF] Dr. Shailesh Mancini Work Phone: [facility] 10-21-2022 17:07-0500 Diastolic blood pressure 64 mm[Hg] Dr. Shailesh Mancini Work Phone: [facility] 10-21-2022 17:07-0500 Heart rate 83 /min Dr. Shailesh Mancini Work Phone: [facility] 10-21-2022 17:07-0500 Respiratory rate 16 /min Dr. Shailesh Mancini Work Phone: [facility] 10-21-2022 17:07-0500 SaO2% (BldA) [Mass fraction] 96 % Dr. Shailesh Mancini Work Phone: [facility] 10-21-2022 17:07-0500 Systolic blood pressure 121 mm[Hg] Dr. Shailesh Mancini Work Phone: [facility] 10-21-2022 11:02-0500 Body height 160.[address] Shailesh Mancini Work Phone: [facility] Work Phone: 10-21-2022 11:02-0500 Body mass index (BMI) [Ratio] 20.2 kg/m2 Dr. Shailesh Mancini Work Phone: [facility] 10-21-2022 11:02-0500 Body weight [address] Shailesh Mancini Work Phone: [facility] 08-05-2022 14:36-0400 Body height 160.[address] Shailesh Mancini Work Phone: [facility] Work Phone: 08-05-2022 14:36-0400 Body mass index (BMI) [Ratio] 20.2 kg/m2 Dr. Shailesh Mancini Work Phone: [facility] Work Phone: 08-05-2022 14:36-0400 Body weight 51.[address] Shailesh Mancini Work Phone: [facility] Work Phone: 08-05-2022 14:36-0400 Diastolic blood pressure 60 mm[Hg] Dr. Shailesh Mancini Work Phone: [facility] Work Phone: 08-05-2022 14:36-0400 Heart rate 64 /min Dr. Shailesh Mancini Work Phone: [facility] Work Phone: 08-05-2022 14:36-0400 Respiratory rate 18 /min Dr. Shailesh Mancini Work Phone: [facility] Work Phone: 08-05-2022 14:36-0400 Systolic blood pressure 98 mm[Hg] Dr. Shailesh Mancini Work Phone: [facility] Work Phone: 06-03-2022 15:34-0400 Diastolic blood pressure 42 mm[Hg] [facility] Work Phone: 06-03-2022 15:34-0400 Heart rate 72 /min [facility] Work Phone: 06-03-2022 15:34-0400 Respiratory rate 20 /min [facility] Work Phone: 06-03-2022 15:34-0400 Systolic blood pressure 110 mm[Hg] [facility] Work Phone: 03-05-2022 14:27-0400 Body height 160.02 cm [facility] Work Phone: 03-05-2022 14:27-0400 Body mass index (BMI) [Ratio] 20.3 kg/m2 [facility] Work Phone: 03-05-2022 14:27-0400 Body weight 52.16 kg [facility] Work Phone: 03-05-2022 14:27-0400 Diastolic blood pressure 59 mm[Hg] [facility] Work Phone: 03-05-2022 14:27-0400 Heart rate 55 /min [facility] Work Phone: 03-05-2022 14:27-0400 Respiratory rate 12 /min [facility] Work Phone: 03-05-2022 14:27-0400 Systolic blood pressure 121 mm[Hg] [facility] Work Phone: 03-05-2022 14:27-0400 Body height 160.02 cm [facility] Work Phone: 03-05-2022 14:27-0400 Body mass index (BMI) [Ratio] 20.3 kg/m2 [facility] Work Phone: 03-05-2022 14:27-0400 Body weight 52.16 kg [facility] Work Phone: 03-05-2022 14:27-0400 Diastolic blood pressure 59 mm[Hg] [facility] Work Phone: 03-05-2022 14:27-0400 Heart rate 55 /min [facility] Work Phone: 03-05-2022 14:27-0400 Respiratory rate 12 /min [facility] Work Phone: 03-05-2022 14:27-0400 Systolic blood pressure 121 mm[Hg] [facility] Work Phone: 05-24-2017 11:35-0400 Body height 160.02 cm [facility]kurt [facility] Work Phone: 05-24-2017 11:35-0400 Body mass index (BMI) [Ratio] 23.82 kg/m2 Brunosadekurt Eliasz [facility] Work Phone: 05-24-2017 11:35-0400 Body weight 61.01 kg Jeannakurt [facility] Work Phone: 05-24-2017 11:35-0400 Diastolic blood pressure 58 mm[Hg] Jeannakurt Eliasz [facility] Work Phone: 05-24-2017 11:35-0400 Heart rate 54 /min Jeannakurt Eliasalana [facility] Work Phone: 05-24-2017 11:35-0400 Respiratory rate 20 /min Maureen [facility] Work Phone: 05-24-2017 11:35-0400 Systolic blood pressure 116 mm[Hg] Maureen Forman [facility] Work Phone: 05-24-2017 11:35-0400 Weight 61.01 kg Elsy Grubbs RN [facility] Work Phone: 04-12-2017 13:39-0400 Body height 160.02 cm Leonora Felice [facility] Work Phone: 04-12-2017 13:39-0400 Body mass index (BMI) [Ratio] 23.45 kg/m2 Leonora Felice [facility] Work Phone: 04-12-2017 13:39-0400 Body weight 60.06 kg Leonora Felice [facility] Work Phone: 04-12-2017 13:39-0400 Diastolic blood pressure 50 mm[Hg] Leonora Felice [facility] Work Phone: 04-12-2017 13:39-0400 Heart rate 52 /min Leonora Felice [facility] Work Phone: 04-12-2017 13:39-0400 Respiratory rate 16 /min Leonora Felice [facility] Work Phone: 04-12-2017 13:39-0400 Systolic blood pressure 110 mm[Hg] Leonora Felice [facility] Work Phone: 04-12-2017 13:39-0400 Weight 60.06 kg Elsy Grubbs RN [facility] Work Phone: 10-09-2016 12:49-0500 Body mass index (BMI) [Ratio] 24.05 kg/m2 Elsy Grubbs RN [facility] Work Phone: 10-09-2016 12:49-0500 Body surface area Derived from formula 1.64 m2 Elsy Grubbs RN [facility] Work Phone: 10-09-2016 12:49-0500 Body weight 61.6 kg Elsy Grubbs RN [facility] Work Phone: 10-09-2016 12:49-0500 Diastolic blood pressure 72 mm[Hg] [facility] Work Phone: 10-09-2016 12:49-0500 Heart rate 60 /min TER[facility] Work Phone: 10-09-2016 12:49-0500 Respiratory rate 16 /min TERESITA [facility]ins [facility] Work Phone: 10-09-2016 12:49-0500 Systolic blood pressure 124 mm[Hg] Elsy Grubbs RN [facility] Work Phone: 11-14-2014 15:17-0500 Diastolic blood pressure 60 mm[Hg] [facility] Work Phone: 11-14-2014 15:17-0500 Heart rate 60 /min [facility] Work Phone: 11-14-2014 15:17-0500 Heart rate 64 /min TER[facility] Work Phone: 11-14-2014 15:17-0500 Systolic blood pressure 98 mm[Hg] [facility] Work Phone: 11-14-2014 15:17-0500 Systolic blood pressure 100 mm[Hg] TER[facility]ITA [facility] Work Phone: 08-10-2012 12:42-0400 SaO2% (BldA) [Mass fraction] 99 % TERESITA [facility] Work Phone: 05-02-2012 14:57-0400 Body height 160.02 cm TERESITA [facility]ins [facility] Work Phone: 08-04-2010 11:15-0400 Body temperature 98.4 [degF] TERESITA [facility] Work Phone: Encounters Encounter Date Encounter Type Care Provider Facility Start: 05-21-2025 End: 05-21-2025 ambulatory [facility] Ambulatory Start: 05-09-2025 End: 05-09-[address] John Noel DO Work Phone: -Radiology [facility] Start: 05-09-2025 End: 05-09-[address] John Noel DO -Radiology [facility] Work Phone: Start: 05-09-2025 End: 05-09-2025 ambulatory John Sadie Facility:[facility] Start: 05-03-2025 End: 05-03-2025 ambulatory [facility] Ambulatory Start: 04-29-2025 Non-patient / Non-visit Dr. Cheryl Ochoa DO -[facility] Work Phone: Start: 04-29-2025 ambulatory Manisha Varela Facility:[facility] Start: 04-29-2025 End: 04-29-2025 Evaluation and management of inpatient Dr. Cheryl Ochoa DO -[facility] Work Phone: Start: 04-28-2025 Evaluation and management of inpatient Dr. Manisha Varela MD -[facility] Work Phone: Start: 04-28-[address] John Noel DO Work Phone: -[facility] Surgical 3 Start: 04-27-2025 End: 04-27-2025 Emergency department patient visit Dr. John Noel DO Work Phone: -Emergency Department Work Phone: Start: 04-25-2025 End: 04-25-[address] John Noel DO Work Phone: -Laboratory Start: 04-25-2025 End: 04-25-[address] John Noel DO Work Phone: -Laboratory Work Phone: Start: 04-24-2025 End: 04-24-2025 Office outpatient visit 15 minutes Cheryl Sutherland APRN-TEAM [employer]SEMBLER Work Phone: [facility] Comment on above: Prostate cancer (Mul ti) (Primary Dx); Urinary retention; Bladder spasm; Malignant neoplasm of prostate (Multi) Start: 04-24-2025 End: 04-25-2025 ambulatory [facility] Facility:[facility] Start: 04-09-2025 End: 04-09-2025 ambulatory [facility] Start: 03-12-2025 End: 03-12-2025 Patient encounter procedure Cynthia PRO -[facility] Work Phone: Start: 03-12-2025 End: 03-12-2025 ambulatory [facility] Facility[facility] Start: 03-02-2025 End: 03-02-[address] John Noel DO Work Phone: -[facility] Start: 03-02-2025 End: 03-02-[address] Timoteo Mullins MD -[facility] Work Phone: Start: 02-26-2025 End: 02-26-2025 Patient encounter procedure Jian Jiménez MD MPH Work Phone: [facility] Comment on above: Urinary retention Start: 02-26-2025 End: 02-26-2025 ambulatory [facility] Start: 02-05-2025 End: 02-05-[address] John Noel DO Work Phone: [facility] Work Phone: Start: 02-05-2025 End: 02-05-[address] John Noel DO -Laboratory, [facility] Start: 02-05-2025 End: 02-05-2025 ambulatory [facility] Facility:[facility] Start: 01-03-2025 End: 01-03-2025 ambulatory [facility] Start: 01-03-2025 End: 01-03-2025 Office outpatient visit 5 minutes Asmita Zambrano MD Work Phone: [facility] Comment on above: Urinary retention Start: 12-16-2024 End: 12-16-2024 Emergency department patient visit Dr. Timoteo Mckenna DO -Emergency Department Work Phone: Start: 12-13-2024 End: 12-13-2024 Patient encounter procedure Urology [id number] Procedure Room [facility] Comment on above: Bladder spasms (Prim federico Dx); Urinary retention Start: 12-13-2024 End: 12-13-2024 ambulatory [facility] Start: 12-08-2024 End: 12-08-[address] [facility] Start: 12-08-2024 End: 12-08-2024 ambulatory [facility] Facility:[facility] Start: 12-06-2024 End: 12-06-2024 Office outpatient visit 15 minutes Asmita Zambrano MD Work Phone: [facility] Comment on above: Urinary retention; Bladder spasm; Malignant neoplasm of prostate (Multi) Start: 12-06-2024 End: 12-06-2024 ambulatory [facility] Start: 12-01-2024 End: 12-01-2024 ambulatory [facility] Facility:[facility] Start: 12-01-2024 End: 12-01-[address] Timoteo Mullins MD -[facility] Work Phone: Start: 11-10-2024 End: 11-10-[address] Timoteo Mullins MD -[facility] Work Phone: Start: 11-10-2024 End: 11-10-2024 ambulatory [facility] Facility:[facility] Start: 10-18-2024 End: 10-18-2024 Office outpatient visit 5 minutes Asmita Zambrano MD Work Phone: [facility] Comment on above: Urinary retention Start: 10-18-2024 End: 10-18-2024 ambulatory [facility] Start: 09-06-2024 End: 09-07-2024 ambulatory [facility] Facility:[facility] Start: 09-01-2024 End: 09-01-2024 ambulatory [facility] Facility:[facility] Start: 08-03-2024 End: 08-03-2024 ambulatory [facility] Facility:[facility] Start: 07-25-2024 End: 07-25-2024 Subsequent hospital visit by physician Asmita Zambrano MD Work Phone: [facility] [place] Comment on above: Urinary retention (P rimary Dx) Start: 07-24-2024 ambulatory [facility] Start: 07-12-2024 End: 07-12-2024 Office outpatient visit 25 minutes Asmita Zambrano MD Work Phone: [facility] Comment on above: Malignant neoplasm o f prostate (Multi); Abnormal digital rectal exam; Elevated PSA; Retention of urine Start: 07-12-2024 End: 07-12-2024 ambulatory [facility] Ambulatory Start: 07-10-2024 End: 07-10-2024 Subsequent hospital visit by physician Darrell Ghosh [address] [place] [address] Comment on above: Malignant neoplasm o f prostate (Multi) Start: 07-10-2024 End: 07-10-2024 ambulatory [facility] Start: 07-06-2024 End: 07-06-2024 [facility] Facility:[facility] Start: 06-28-2024 End: 06-28-2024 Office outpatient visit 25 minutes Asmita Zambrano MD Work Phone: [facility] Comment on above: Elevated PSA; Abnormal digital rectal exam; Malignant neoplasm of prostate (Multi); Retention of urine Start: 06-28-2024 End: 06-28-2024 ambulatory [facility] Ambulatory Start: 06-14-2024 End: 06-14-2024 Patient encounter procedure Asmita Zambrano MD Work Phone: [facility] Comment on above: Elevated PSA (Primar y Dx) Start: 06-14-2024 End: 06-14-2024 ambulatory [facility] Start: 06-02-2024 End: 06-02-2024 ambulatory [facility] Facility:[facility] Start: 05-31-2024 End: 05-31-2024 ambulatory [facility] Facility:[facility] Start: 05-30-2024 End: 05-30-2024 ambulatory [facility] Facility:[facility] Start: 05-24-2024 End: 05-24-2024 ambulatory [facility] Ambulatory Start: 05-23-2024 End: 05-23-2024 ambulatory [facility] Facility:[facility] Start: 05-17-2024 End: 05-17-2024 Patient encounter procedure Asmita Zambrano MD Work Phone: [facility] Comment on above: Incomplete bladder e mptying (Primary Dx) Start: 04-26-2024 End: 04-26-2024 Office outpatient new 45 minutes Asmita Zambrano MD Work Phone: [facility] Comment on above: Benign prostatic hyp erplasia with lower urinary tract symptoms, symptom details unspecified; Retention of urine; Nocturia; Abnormal digital rectal exam Start: 11-26-2023 End: 11-26-[address] John Noel Work Phone: [facility] Work Phone: Start: 11-26-2023 End: 11-26-[address] John Noel Work Phone: [facility]incent Mancini [facility] Start: 11-23-2023 End: 11-23-[address] John Noel Work Phone: [facility] Work Phone: Start: 10-20-2023 End: 10-22-2023 Evaluation and management of inpatient Dr. John Noel Work Phone: [facility] 3 Work Phone: Start: 10-20-2023 End: 10-22-[address] John Noel Work Phone: [facility] Work Phone: Start: 10-12-2023 End: 10-12-2023 Non-patient / Non-visit Dr. John Noel Work Phone: [facility] Work Phone: Start: 10-12-2023 End: 10-12-[address] John Noel Work Phone: [facility] Work Phone: Start: 10-12-2023 End: 10-12-[address] John Noel Work Phone: [facility]-Laboratory Work Phone: Start: 09-15-2023 End: 09-15-[address] John Noel Work Phone: [facility] Work Phone: Start: 09-15-2023 End: 09-15-[address] John Noel Work Phone: [facility]-Laboratory, Specimen Work Phone: Start: 09-06-2023 Non-patient / Non-visit Dr. John Noel Work Phone: [facility] Work Phone: Start: 09-05-2023 Non-patient / Non-visit Dr. John Noel Work Phone: [facility] Work Phone: Start: 09-04-2023 End: 09-06-2023 Evaluation and management of inpatient Dr. John Noel Work Phone: [facility] Surgical 3 Work Phone: Start: 09-04-2023 End: 09-06-[address] John Noel Work Phone: [facility] Work Phone: Start: 09-03-2023 End: 09-03-[address] John Noel Work Phone: [facility] Work Phone: Start: 08-31-2023 End: 08-31-[address] John Noel Work Phone: [facility] Work Phone: Start: 08-31-2023 End: 08-31-[address] [facility] Noel [facility] Phone[facility] Work Phone: Start: 07-20-2023 End: 07-20-[address] John Noel Work Phone: [facility] Work Phone: Start: 07-20-2023 End: 07-20-[address] John Noel Work Phone: [facility] Work [facility]: Start: 07-09-2023 End: 07-09-[address] John Noel Work Phone: [facility] Work Phone: Start: 07-09-2023 End: 07-09-[address] John Noel [facility] Phone: [facility]: Start: 06-17-2023 End: 06-17-[address] John Noel Work Phone: [facility] Work Phone: Start: 05-11-2023 End: 05-11-[address] John Noel Work Phone: [facility] Work Phone: Start: 05-11-2023 End: 05-11-[address] John Noel Work Phone: [facility] Work Phone: Start: 04-07-2023 End: 04-07-[address] John Noel Work Phone: [facility] Work Phone: Start: 03-26-2023 End: 03-26-[address] John Noel Work Phone: [facility] Work Phone: Start: 03-26-2023 End: 03-26-[address] [facility] Start: 02-25-2023 End: 02-25-[address] John Noel Work Phone: [facility] Start: 02-24-2023 End: 02-24-[address] John Noel Work Phone: [facility] Start: 02-17-2023 Non-patient / Non-visit Dr. John Noel Work Phone: [facility] Start: 01-06-2023 End: 01-06-2023 Emergency department patient visit Dr. John Noel Work Phone: [facility]-Emergency Department Start: 12-27-2022 End: 12-28-2022 Emergency department patient visit Dr. Shailesh Mancini Work Phone: [facility]-Emergency Department Start: 11-18-2022 End: 11-18-[address] Shailesh Mancini Work Phone: [facility] Start: 10-21-2022 End: 10-21-2022 Admission to same day surgery center Dr. Shailesh Mancini Work Phone: [phone] [place] [address]-[facility] Day Care Start: 10-21-2022 End: 10-21-[address] Shailesh Mancini Work Phone: [facility] Work Phone: Start: 10-12-2022 End: 10-12-[address] Shailesh Mancini Work Phone: [facility] Work Phone: Start: 10-12-2022 End: 10-12-[address] Shailesh Mancini Work Phone: [facility]-Laboratory Start: 08-05-2022 End: 08-05-[address] Shailesh Mancini Work Phone: [facility] Start: 07-18-2022 End: 07-18-[address] Shailesh Mancini Work Phone: [facility] Start: 06-03-2022 End: 06-03-[address] [facility] Start: 04-15-2022 End: 04-15-[address] [facility] Start: 03-05-2022 End: 03-05-[address] [facility] Start: 02-03-2022 End: 02-03-2022 [facility] Start: 12-31-2021 End: 12-31-[address] [facility] Start: 10-16-2021 Patient encounter procedure [facility] Start: 10-18-2011 End: 10-18-2011 REFILL - MYCHART Marino Roque Work Phone: Gastroenterology Comment on above: RE: Medication Renew al Request Procedures Date Procedure Procedure Detail Performing Clinician Start: 05-09-2025 Plain X-ray abdomen Dr. John Noel DO Work Phone: Start: 04-29-[address] John Noel DO Work Phone: Start: 04-28-[address] John Noel DO Work Phone: Start: 04-27-2025 Urnls dip stick/tabl et reagent auto microscopy Dr. John Noel DO Work Phone: Start: 04-27-[address] John Noel DO Work Phone: Start: 04-27-[address] John Noel DO Work Phone: Start: 04-25-2025 Assay of prostate sp ecific antigen total Dr. John Noel DO Work Phone: Comment on above: This [...] Influenz a & RSV (PCR) Dr. John Noel DO Work Phone: Start: 07-25-2024 PULSE OXIMETRY, SPOT Amy waleska Zambrano MD Work Phone: Start: 10-20-2023 Cysto,Transurethral Resection Prostate (Not Applicable) Dr. John Noel Work Phone: Start: 09-15-[address] John Noel Work Phone: Start: 09-04-2023 Plain chest X-ray Dr. Adeel Noel Work Phone: Start: 09-04-2023 CT of abdomen and pe lvis without contrast Dr. John Noel Work Phone: Start: 09-04-[address] John Noel Work Phone: Start: 05-11-2023 CT of chest without contrast Dr. John Noel Work Phone: Start: 04-07-2023 Computed tomography of abdomen and pelvis with contrast Dr. John Noel Work Phone: Start: 12-27-2022 Computed tomography of [...] 05-24-2017 End: 05-24-2017 PFAdeel Abbott MD Start: 05-24-2017 End: 05-24-2017 Documentation of current medications Maureen Forman Start: 05-24-2017 End: 05-24-2017 Follow Up Appt Other Robbi Abbott MD Start: 05-24-2017 End: 05-24-2017 JOE Abbott MD Start: 05-24-2017 End: 06-09-2017 Nuclear stress test -Bin Abbott MD Start: 05-24-2017 End: 05-24-2017 PFM [...] Nurse, Teaching, Wound Check (no charge) Timoteo Mlulins MD Start: 03-30-2016 End: 09-30-2016 *Hepatic Function [...] eval implantable in prsn dual lead dfb bAril Dupree PA-C Work Phone: Start: 02-28-2016 End: [...] Robbi Abbott MD Start: 03-02-2014 End: 03-02-2014 MMM Robbi Abbott MD Start: 03-02-2014 End: 03-02-2014 Follow Up Appt 6 months Robbi Abbott MD Start: 03-02-2014 End: 10-01-2014 Hepatic function 2000 panel - Serum or Plasma Robbi Abbott MD Start: 03-02-2014 End: 10-01-2014 Lipid 1996 panel - Serum or Plasma Robbi Abbott MD Start: 03-02-2014 End: 03-02-2014 MMM Robbi Abbott MD Start: 01-30-2014 End: 08-23-2014 [...] DTaP/Tdap/Td Vaccines (2 - Td or Tdap) [facility] Start: 10-24-2025 End: 04-24-2026 Prostate specific Ag [Mass/volume] in Serum or Plasma PSA Lab Routine Prostate cancer (Multi) Expected: 10/24/2025 (Approximate), Expires: 04/24/2026 [facility] Work Phone: Comment on above: Expected: 10/24/2025 (Approximate), Expi res: 04/24/2026 Start: 10-23-2025 End: 10-23-2025 Patient encounter procedure 10/23/2025 1:30 PM EST Office Visit [facility] [address] [facility] [address] [place] [phone] Cheryl Sutherland, RN [employer] [address] [place] [address] [facility] Start: 07-21-2025 Creatinine measurement Creatinine Level [facility] Start: 05-21-2025 End: 05-21-2025 Clinical Support 05/21/2025 1:30 PM EDT Clinical Support [facility] [address] [facility] [address] [place] [phone] [facility] Start: 04-29-2025 Patient discharge [facility] Start: 04-29-2025 Admission procedure [facility] Start: 04-28-2025 Provision of activity privileges [facility] Start: 04-28-2025 Assessment of risk of venous thromboembolism [facility] Start: 04-28-2025 Insertion of catheter into peripheral vein [facility] Start: 04-28-2025 Measuring intake and output [facility] Start: 04-28-2025 Providing care according to standard [facility] Start: 04-28-2025 Referral to occupational therapist [facility] Start: 04-28-2025 Referral to service [facility] Start: 04-28-2025 [facility] Start: 04-28-2025 End: 04-28-2025 Following clinical pathway protocol [facility] Start: 04-28-2025 Admission procedure [facility] Start: 04-28-2025 Hospital admission, emergency, from emergency room, medical nature [facility] Start: 04-28-2025 [facility] Start: 04-27-2025 [facility] Start: 04-27-2025 [facility] Start: 04-27-2025 Bacteria identified in Urine by Culture Urine Culture [facility] Start: 04-27-2025 Emergency department visit low/moder severity EMERGENCY DEPT VISIT [facility] Start: 04-27-2025 Urine culture [facility] Start: 04-24-2025 End: 04-24-2026 Prostate specific Ag [Mass/volume] in Serum or Plasma PSA Lab Routine Prostate cancer (Multi) Expected: 04/24/2025 (Approximate), Expires: 04/24/2026 [facility] Service Area Work Phone: Comment on above: Expected: 04/24/2025 (Approximate), Expi res: 04/24/2026 Start: 04-06-2025 End: 04-06-2025 Clinical Support 04/06/2025 2:00 PM EDT Clinical Support [address] [phone] [facility] Start: 02-26-2025 End: 02-26-2025 Patient encounter procedure 02/26/2025 3:15 PM EDT Office Visit [address] [phone] Jian Caro MD MPH [address] [place] [address] [facility] Start: 02-26-2025 End: 02-13-2026 Suprapubic Catheter Insertion Suprapubic Catheter Insertion Procedures Routine Urinary retention Expected: 02/26/2025 (Approximate), Expires: 02/13/2026 [facility] Service Area Work Phone: Comment on above: Expected: 02/26/2025 (Approximate), Expi res: 02/13/2026 Start: 01-03-2025 End: 01-03-2025 Clinical Support 01/03/2025 2:15 PM EST Clinical Support [address] [phone] [facility] Start: 12-16-2024 [facility] Start: 12-13-2024 End: 12-13-2024 Patient encounter procedure 12/13/2024 3:15 PM EST Procedure Visit [address] [phone] [facility] Start: 12-06-2024 End: 12-06-2024 Clinical Support 12/06/2024 3:00 PM EST Clinical Support [address] [phone] [facility] Start: 07-25-2024 Subsequent hospital visit by physician 07/25/2024 Hospital Encounter [facility] [place] [address] [place] [phone] Asmita Zambrano MD [address] [place] [phone] [facility] [place] Start: 07-25-2024 End: 09-24-2024 Cystostomy cystotomy w/drainage Cystotomy Suprapubic Urinary retention 07/25/2024 10:54 AM EDT [facility] Start: 07-12-2024 End: 07-12-2024 Patient encounter procedure 07/12/2024 3:30 PM EDT Office Visit [facility] [address] [place] [phone] Asmita Zambrano MD [address] [place] [address] [facility] Start: 07-10-2024 End: 07-10-2024 Patient encounter procedure 07/10/2024 2:15 PM EDT Appointment [facility] [address] [place] [phone] [facility] Start: 07-02-2024 COVID-19 Vaccine ( season) COVID-19 Vaccine () [facility] Start: 07-02-2024 COVID-19 Vaccine ( season) COVID-19 Vaccine ( season) [facility] Start: 07-02-2024 Influenza vaccination Influenza Vaccine (#1) [facility] Start: 06-28-2024 End: 06-28-2025 Creatinine [Mass/volume] in Serum or Plasma Creatinine, Serum Lab Routine Retention of urine Expected: 06/28/2024 (Approximate), Expires: 06/28/2025 [facility] Work Phone: Comment on above: Expected: [...] procedure 06/28/2024 1:30 PM EDT Office Visit [address] [phone] Asmita Zambrano MD [address] [place] [phone] [facility] Start: 05-24-2024 End: 05-24-2024 Patient encounter procedure 05/24/2024 3:15 PM EDT Office Visit [address] [phone] Asmita Zambrano MD [address] [place] [id number] [facility] Start: 04-26-2024 End: 04-26-2025 Creatinine [Mass/volume] in Serum or Plasma Creatinine, Serum Lab Routine Nocturia Expected: 04/26/2024 (Approximate), Expires: 04/26/2025 [facility] Work Phone: Comment on above: Expected: 04/26/2024 (Approximate), Expi res: 04/26/2025 Start: 04-26-2024 End: 04-26-2025 CT Pelvis W contrast IV CT pelvis w IV contrast Imaging Routine Abnormal digital rectal exam Expected: 04/26/2024 (Approximate), Expires: 04/26/2025 [facility] Work Phone: Comment on above: Expected: 04/26/2024 (Approximate), Expi res: 04/26/2025 Start: 04-26-2024 End: 04-26-2025 Prostate specific Ag [Mass/volume] in Serum or Plasma Prostate Specific Antigen Lab Routine Nocturia Abnormal digital rectal exam Expected: 04/26/2024 (Approximate), Expires: 04/26/2025 [facility] Service Area Work Phone: Comment on above: Expected: 04/26/2024 (Approximate), Expi res: 04/26/2025 Start: 10-22-2023 Patient discharge [facility] Start: 10-22-2023 Removal of urinary catheter [facility] Start: 10-21-2023 [facility] Start: 10-20-2023 Following clinical pathway protocol [facility] Start: 10-20-2023 Application of intermittent pneumatic compression device [facility] Start: 10-20-2023 Anesthesia transurethral resection of prostate ANESTH REMOVAL OF PROSTATE [facility] Start: 10-20-2023 Trurl rescj residual/regrowth obstr prstate tiss REMOVE PROSTATE REGROWTH [facility] Start: 10-20-2023 Oxygen therapy [facility] Start: 10-20-2023 Admission procedure [facility] Start: 10-20-2023 Deep breathing and coughing exercises [facility] Start: 10-20-2023 Incentive spirometry [facility] Start: 10-20-2023 Irrigation of urinary bladder [facility] Start: 10-20-2023 Measuring intake and output [facility] Start: 10-20-2023 Patient education [facility] Start: 10-20-2023 Provision of activity privileges [facility] Start: 10-20-2023 Taking patient vital signs [facility] Start: 10-20-2023 Vital signs measurements [facility] Start: 10-20-2023 [facility] Start: 09-06-2023 Referral to service [facility] Start: 09-06-2023 Patient discharge [facility] Start: 09-04-2023 End: 09-04-2023 Following clinical pathway protocol [facility] Start: 09-04-2023 Assessment of risk of venous thromboembolism [facility] Start: 09-04-2023 Incentive spirometry [facility] Start: 09-04-2023 Inhalation therapy procedure [facility] Start: 09-04-2023 Insertion of catheter into peripheral vein [facility] Start: 09-04-2023 Measuring intake and output [facility] Start: 09-04-2023 Providing care according to standard [facility] Start: 09-04-2023 Provision of activity privileges [facility] Start: 09-04-2023 Referral to occupational therapist [facility] Start: 09-04-2023 Referral to service [facility] Start: 09-04-2023 [facility] Start: 09-04-2023 Verification routine [facility] Start: 09-04-2023 Admission procedure [facility] Start: 09-04-2023 Hospital admission, emergency, from emergency room, medical nature [facility] Start: 09-04-2023 End: 09-05-2023 [facility] Start: 09-04-2023 Bacteria identified in Urine by Culture Urine Culture [facility] Start: 09-04-2023 Urine culture Urine Culture [facility] Start: 09-04-2023 Patient referral to dietitian [facility] Start: 07-02-2023 COVID-19 Vaccine ( season) COVID-19 Vaccine () [facility] Start: 01-06-2023 Enteric precautions [facility] Start: 10-21-2022 Ambulation without limitation [facility] Start: 10-21-2022 Medication education [facility] Start: 10-21-2022 Patient discharge [facility] Start: 10-21-2022 Taking patient vital signs [facility] Start: 10-21-2022 [facility] Start: 10-21-2022 Anes transurethral w/urethrocystoscopy nos ANESTH BLADDER SURGERY [facility] Start: 10-21-2022 Cystourethroscopy w/internal urethrotomy male CYSTOSCOPY AND TREATMENT [facility] Start: 07-02-2021 Influenza vaccination INFLUENZA (Season Ended) [facility] Start: 04-08-[address]21 [address]id Panel [facility] Start: 03-05-2019 DIABETES SCREEN DIABETES SCREEN [facility] Start: 12-29-2017 End: 12-29-2017 Appointment Appointment [facility] Work Phone: Start: 10-22-2017 End: 10-22-2017 Appointment Appointment [facility] Work Phone: Start: 10-09-2017 Creatinine measurement Creatinine Level [facility] Start: 10-09-2017 Potassium measurement Potassium Level [facility] Start: 09-27-2017 End: 09-28-2017 Follow Up Appt 3 months Follow Up Appt 3 months [facility] Work Phone: Start: 09-27-2017 End: 09-28-2017 [facility] Clinic [facility] Work Phone: Start: 09-27-2017 End: 09-27-2017 Patient encounter procedure Appointment [facility] Work Phone: Start: 09-27-2017 End: 10-13-2017 Follow Up Appt 3 months Follow Up Appt 3 months [facility] Work Phone: Start: 09-27-2017 End: 10-13-2017 Pacer Clinic [facility] Work Phone: Start: 06-28-2017 End: 06-28-2017 Patient encounter procedure [facility]ointment [facility] Work Phone: Start: 06-28-2017 End: 06-28-2017 Follow Up Appt 3 months Follow Up Appt 3 months [facility] Work Phone: Start: 06-28-2017 End: 06-28-2017 Pacer Clinic [facility] Work Phone: Start: 06-28-2017 End: 10-13-2017 Follow Up Appt 3 months Follow Up Appt 3 months [facility] Work Phone: Start: 06-28-2017 End: 10-13-2017 Pacer Clinic [facility] Work Phone: Start: 05-24-2017 End: 05-24-2017 Follow Up Appt Other Follow Up Appt Other [facility] Work Phone: Start: 05-24-2017 End: 05-24-2017 MMM MMM [facility] Work Phone: Start: 05-24-2017 End: 05-24-2017 Nuclear stress test -Lexiscan Nuclear stress test -Lexiscan [facility] Work Phone: Start: 05-24-2017 End: 05-24-2017 PFM PFM [facility] Work Phone: Start: 05-24-2017 End: 05-24-2017 Patient encounter procedure [facility]ointment [facility] Work Phone: Start: 05-24-2017 End: 05-24-2017 Follow Up Appt Other Follow Up Appt Other [facility] Work Phone: Start: 05-24-2017 End: 05-24-2017 MMM MMM [facility] Work Phone: Start: 05-24-2017 End: 05-24-2017 Nuclear stress test -Lexiscan Nuclear stress test -Lexiscan [facility] Work Phone: Start: 05-24-2017 End: 05-24-2017 PFM PFM [facility] Work Phone: Start: 04-12-2017 End: 04-12-2017 Follow Up Appt 6 months Follow Up Appt 6 months [facility] Work Phone: Start: 04-12-2017 End: 04-12-2017 Follow Up Appt Other Follow Up Appt Other [facility] Work Phone: Start: 04-12-2017 End: 04-12-2017 MMM MMM [facility] Work Phone: Start: 04-12-2017 End: 04-12-2017 Patient encounter procedure [facility]ointment [facility] Work Phone: Start: 04-12-2017 End: 10-13-2017 Follow Up Appt 6 months Follow Up Appt 6 months [facility] Work Phone: Start: 04-12-2017 End: 10-13-2017 Follow Up Appt Other Follow Up Appt Other [facility] Work Phone: Start: 04-12-2017 End: 10-13-2017 MMM MMM [facility] Work Phone: Start: 03-22-2017 End: 03-23-2017 Follow Up Appt 3 months Follow Up Appt 3 months [facility] Work Phone: Start: 03-22-2017 End: 03-23-2017 Pacer Clinic [facility]er Clinic [facility] Work Phone: Start: 03-22-2017 End: 10-13-2017 Follow Up Appt 3 months Follow Up Appt 3 months [facility] Work Phone: Start: 03-22-2017 End: 10-13-2017 Pacer Clinic [facility] Work Phone: Start: 12-17-2016 End: 12-17-2016 Follow Up Appt 3 months Follow Up Appt 3 months [facility] Work Phone: Start: 12-17-2016 End: 12-17-2016 Pacer Clinic [facility] Clinic [facility] Work Phone: Start: 12-17-2016 End: 10-13-2017 Follow Up Appt 3 months Follow Up Appt 3 months [facility] Work Phone: Start: 12-17-2016 End: 10-13-2017 Pacer Clinic [facility] Work Phone: Start: 10-09-2016 End: 10-12-2016 *BMP *BMP [facility] Work Phone: Start: 10-09-2016 End: 10-09-2016 *CBC with Differential *CBC with Differential [facility] Work Phone: Start: 10-09-2016 End: 10-09-2016 BNP *Brain Natriuretic Peptide BNP [facility] Work Phone: Start: 10-09-2016 End: 10-12-2016 Chest x-ray X-Ray, Chest, PA & Lateral [facility] Work Phone: Start: 10-09-2016 End: 10-09-2016 Follow Up Appt Other Follow Up Appt Other [facility] Work Phone: Start: 10-09-2016 End: 10-12-2016 Thyroid stimulating hormone (TSH) *TSH [facility] Work Phone: Start: 10-09-2016 End: 10-12-2016 Thyroxine (T4) *T4 (Total) [facility] Work Phone: Start: 10-09-2016 End: 10-12-2016 Basic metabolic 2000 panel - Serum or Plasma *BMP [facility] Work Phone: Start: 10-09-2016 End: 10-09-2016 CBC W Auto Differential panel - Blood *CBC with Differential [employer] [facility] Work Phone: Start: 10-09-2016 End: 10-12-2016 Chest x-ray X-Ray, Chest, PA & Lateral [facility] Work Phone: Start: 10-09-2016 End: 10-09-2016 Follow Up Appt Other Follow Up Appt Other [facility] Work Phone: Start: 10-09-2016 End: 10-09-2016 Natriuretic peptide B [Mass/volume] in Blood *Brain Natriuretic Peptide BNP [facility] Work Phone: Start: 10-09-2016 End: 10-12-2016 Thyrotropin [Units/volume] in Serum or Plasma *TSH [employer] [facility] Work Phone: Start: 10-09-2016 End: 10-12-2016 Thyroxine (T4) [Mass/volume] in Serum or Plasma *T4 (Total) [employer] Work Phone: Start: 09-08-2016 End: 09-30-2016 Follow Up Appt 3 months Follow Up Appt 3 months [employer] Work Phone: Start: 09-08-2016 End: 09-30-2016 Pacer Clinic [facility] Clinic [facility] Work Phone: Start: 09-08-2016 End: 09-30-2016 Follow Up Appt 3 months Follow Up Appt 3 months [employer] [facility] Work Phone: Start: 09-08-2016 End: 09-30-2016 Pacer Clinic [facility] Work Phone: Start: 04-24-2016 End: 09-30-2016 Follow Up Appt 3 months Follow Up Appt 3 months [employer] Work Phone: Start: 04-24-2016 End: 09-30-2016 Pacer Clinic [facility] Clinic [facility] Work Phone: Start: 04-24-2016 End: 09-30-2016 Follow Up Appt 3 months Follow Up Appt 3 months [facility] Work Phone: Start: 04-24-2016 End: 09-30-2016 Pacer Clinic [facility] Work Phone: Start: 04-09-2016 End: 04-09-2016 *BMP *BMP [facility] Work Phone: Start: 04-09-2016 End: 04-08-2016 *UA - Urinalysis w/o Micro *UA - Urinalysis w/o Micro [facility] Work Phone: Start: 04-09-2016 End: 04-08-2016 CBC W Auto Differential panel - Blood *CBC without Diff [facility] Work Phone: Start: 04-09-2016 End: 04-08-2016 INR Coag RelTime (PPP) *PT/INR [facility] Work Phone: Start: 04-09-2016 End: 04-08-2016 Pacemaker Generator Change Pacemaker Generator Change [facility] Work Phone: Start: 04-09-2016 End: 04-08-2016 *UA - Urinalysis w/o Micro *UA - Urinalysis w/o Micro [facility] Work Phone: Start: 04-09-2016 End: 04-09-2016 Basic metabolic 2000 panel - Serum or Plasma *BMP [facility] Work Phone: Start: 04-09-2016 End: 04-08-2016 CBC W Auto Differential panel - Blood *CBC without Diff [facility] Work Phone: Start: 04-09-2016 End: 04-08-2016 INR in Platelet poor plasma by Coagulation assay *PT/INR [facility] Work Phone: Start: 04-09-2016 End: 04-08-2016 Pacemaker Generator Change Pacemaker Generator Change [facility] Work Phone: Start: 04-08-2016 End: 04-08-2016 *Hepatic Function Panel *Hepatic Function Panel [facility] Work Phone: Start: 04-08-2016 End: 04-08-2016 Ecg routine ecg w/least 12 lds w/i&r EKG (In office) [facility] Work Phone: Start: 04-08-2016 End: 04-08-2016 Follow Up Appt 6 months Follow Up Appt 6 months [facility] Work Phone: Start: 04-08-2016 End: 04-08-2016 Lipid panel [AGGREGATE] *Lipid Profile CC PCP [facility] Work Phone: Start: 04-08-2016 End: 04-08-2016 MMM MMM [facility] Work Phone: Start: 04-08-2016 End: 04-08-2016 Ecg routine ecg w/least 12 lds w/i&r EKG (In office) [facility] Work Phone: Start: 04-08-2016 End: 04-08-2016 Follow Up Appt 6 months Follow Up Appt 6 months [facility] Work Phone: Start: 04-08-2016 End: 10-13-2017 Hepatic function 2000 panel - Serum or Plasma *Hepatic Function Panel [facility] Work Phone: Start: 04-08-2016 End: 10-13-2017 Lipid 1996 panel - Serum or Plasma *Lipid Profile CC PCP [facility] Work Phone: Start: 04-08-2016 End: 04-08-2016 MMM MMM [facility] Work Phone: Start: 03-30-2016 End: 09-30-2016 *Hepatic Function Panel *Hepatic Function Panel [facility] Work Phone: Start: 03-30-2016 End: 09-30-2016 Lipid panel [AGGREGATE] *Lipid Profile CC PCP [facility] Work Phone: Start: 03-30-2016 End: 09-30-2016 Hepatic function 2000 panel - Serum or Plasma *Hepatic Function Panel [facility] Work Phone: Start: 03-30-2016 End: 09-30-2016 Lipid 1996 panel - Serum or Plasma *Lipid Profile CC PCP [facility] Work Phone: Start: 03-19-2016 End: 04-08-2016 Chest x-ray X-Ray, Chest, PA & Lateral [facility] Work Phone: Start: 03-19-2016 End: 09-30-2016 Ecg routine ecg w/least 12 lds w/i&r EKG (In office) [facility] Work Phone: Start: 03-19-2016 End: 04-08-2016 Chest x-ray X-Ray, Chest, PA & Lateral [facility] Work Phone: Start: 03-19-2016 End: 09-30-2016 Ecg routine ecg w/least 12 lds w/i&r EKG (In office) [facility] Work Phone: Start: 02-28-2016 End: 09-30-2016 Follow Up Appt 1 month Follow Up Appt 1 month [facility] Work Phone: Start: 02-28-2016 End: 09-30-2016 Pacer Clinic Pacer Clinic [facility] Work Phone: Start: 02-28-2016 End: 09-30-2016 Follow Up Appt 1 month Follow Up Appt 1 month [facility] Work Phone: Start: 02-28-2016 End: 09-30-2016 Pacer Clinic Pacer Clinic [facility] Work Phone: Start: 01-17-2016 End: 09-30-2016 Follow Up Appt 1 month Follow Up Appt 1 month [facility] Work Phone: Start: 01-17-2016 End: 09-30-2016 Pacer Clinic Pacer Clinic [facility] Work Phone: Start: 01-17-2016 End: 09-30-2016 Follow Up Appt 1 month Follow Up Appt 1 month [facility] Work Phone: Start: 01-17-2016 End: 09-30-2016 Pacer Clinic Pacer Clinic [facility] Work Phone: Start: 11-15-2015 End: 09-30-2016 Follow Up Appt 3 months Follow Up Appt 3 months [facility] Work Phone: Start: 11-15-2015 End: 09-30-2016 Pacer Clinic Pacer Clinic [facility] Work Phone: Start: 11-15-2015 End: 09-30-2016 Follow Up Appt 3 months Follow Up Appt 3 months [facility] Work Phone: Start: 11-15-2015 End: 09-30-2016 Pacer Clinic Pacer Clinic [facility] Work Phone: Start: 10-02-2015 End: 09-30-2016 Follow Up Appt 1 month Follow Up Appt 1 month [facility] Work Phone: Start: 10-02-2015 End: 09-30-2016 Pacer Clinic Pacer Clinic [facility] Work Phone: Start: 10-02-2015 End: 09-30-2016 Follow Up Appt 1 month Follow Up Appt 1 month [facility] Work Phone: Start: 10-02-2015 End: 09-30-2016 Pacer Clinic Pacer Clinic [facility] Work Phone: Start: 09-09-2015 End: 09-30-2015 *BMP *BMP [facility] Work Phone: Start: 09-09-2015 End: 09-30-2015 *CBC with Differential *CBC with Differential [facility] Work Phone: Start: 09-09-2015 End: 09-30-2015 *Hepatic Function Panel *Hepatic Function Panel [facility] Work Phone: Start: 09-09-2015 End: 09-30-2015 BNP *Brain Natriuretic Peptide BNP [facility] Work Phone: Start: 09-09-2015 End: 10-09-2016 Chest x-ray X-Ray, Chest, PA & Lateral [facility] Work Phone: Start: 09-09-2015 End: 09-30-2016 Follow Up Appt 1 month Follow Up Appt 1 month [facility] Work Phone: Start: 09-09-2015 End: 09-09-2015 Follow Up Appt 6 months Follow Up Appt 6 months [facility] Work Phone: Start: 09-09-2015 End: 09-30-2015 Lipid panel [AGGREGATE] *Lipid Profile CC PCP [facility] Work Phone: Start: 09-09-2015 End: 09-30-2016 Pacer Clinic Pacer Clinic [facility] Work Phone: Start: 09-09-2015 End: 09-09-2015 PFM PFM [facility] Work Phone: Start: 09-09-2015 End: 09-30-2015 Basic metabolic 2000 panel - Serum or Plasma *BMP [facility] Work Phone: Start: 09-09-2015 End: 09-30-2015 CBC W Auto Differential panel - Blood *CBC with Differential [facility] Work Phone: Start: 09-09-2015 End: 10-09-2016 Chest x-ray X-Ray, Chest, PA & Lateral [facility] Work Phone: Start: 09-09-2015 End: 09-30-2016 Follow Up Appt 1 month Follow Up Appt 1 month [facility] Work Phone: Start: 09-09-2015 End: 09-09-2015 Follow Up Appt 6 months Follow Up Appt 6 months [facility] Work Phone: Start: 09-09-2015 End: 09-30-2015 Hepatic function 2000 panel - Serum or Plasma *Hepatic Function Panel [facility] Work Phone: Start: 09-09-2015 End: 09-30-2015 Lipid 1996 panel - Serum or Plasma *Lipid Profile CC PCP [facility] Work Phone: Start: 09-09-2015 End: 09-30-2015 Natriuretic peptide B [Mass/volume] in Blood *Brain Natriuretic Peptide BNP [facility] Work Phone: Start: 09-09-2015 End: 09-30-2016 Pacer Clinic Pacer Clinic [facility] Work Phone: Start: 09-09-2015 End: 09-09-2015 PFM PFM [facility] Work Phone: Start: 05-06-2015 End: 09-03-2015 Follow Up Appt 3 months Follow Up Appt 3 months [facility] Work Phone: Start: 05-06-2015 End: 09-03-2015 Pacer Clinic Pacer Clinic [facility] Work Phone: Start: 05-06-2015 End: 09-03-2015 Follow Up Appt 3 months Follow Up Appt 3 months [facility] Work Phone: Start: 05-06-2015 End: 09-03-2015 Pacer Clinic Pacer Clinic [facility] Work Phone: Start: 04-01-2015 End: 09-09-2015 *Hepatic Function Panel *Hepatic Function Panel [facility] Work Phone: Start: 04-01-2015 End: 09-09-2015 Lipid panel [AGGREGATE] *Lipid Profile CC PCP [facility] Work Phone: Start: 04-01-2015 End: 09-09-2015 Hepatic function 2000 panel - Serum or Plasma *Hepatic Function Panel [facility] Work Phone: Start: 04-01-2015 End: 09-09-2015 Lipid 1996 panel - Serum or Plasma *Lipid Profile CC PCP [facility] Work Phone: Start: 03-04-2015 End: 03-04-2015 Follow Up Appt 6 months Follow Up Appt 6 months [facility] Work Phone: Start: 03-04-2015 End: 03-04-2015 MMM MMM [facility] Work Phone: Start: 03-04-2015 End: 03-04-2015 Follow Up Appt 6 months Follow Up Appt 6 months [facility] Work Phone: Start: 03-04-2015 End: 03-04-2015 MMM MMM [facility] Work Phone: Start: 01-16-2015 End: 09-03-2015 Follow Up Appt 3 months Follow Up Appt 3 months [facility] Work Phone: Start: 01-16-2015 End: 09-03-2015 Pacer Clinic Pacer Clinic [facility] Work Phone: Start: 01-16-2015 End: 09-03-2015 Follow Up Appt 3 months Follow Up Appt 3 months [facility] Work Phone: Start: 01-16-2015 End: 09-03-2015 Pacer Clinic Pacer Clinic [facility] Work Phone: Start: 11-30-2014 End: 11-30-2014 Follow Up Appt Other Follow Up Appt Other [facility] Work Phone: Start: 11-30-2014 End: 11-30-2014 PFM PFM [facility] Work Phone: Start: 11-30-2014 End: 11-30-2014 Follow Up Appt Other Follow Up Appt Other [facility] Work Phone: Start: 11-30-2014 End: 11-30-2014 PFM PFM [facility] Work Phone: Start: 11-29-2014 End: 11-29-2014 *BMP *BMP [facility] Work Phone: Start: 11-29-2014 End: 11-29-2014 Basic metabolic 2000 panel - Serum or Plasma *BMP [facility] Work Phone: Start: 11-14-2014 End: 11-15-2014 *BMP *BMP [facility] Work Phone: Start: 11-14-2014 End: 11-15-2014 *CBC with Differential *CBC with Differential [facility] Work Phone: Start: 11-14-2014 End: 11-15-2014 BNP *Brain Natriuretic Peptide BNP [facility] Work Phone: Start: 11-14-2014 End: 11-15-2014 Chest x-ray X-Ray, Chest, PA & Lateral [facility] Work Phone: Start: 11-14-2014 End: 11-14-2014 Follow up Appt 3 weeks Follow up Appt 3 weeks [facility] Work Phone: Start: 11-14-2014 End: 11-14-2014 MMM MMM [facility] Work Phone: Start: 11-14-2014 End: 11-15-2014 Basic metabolic 2000 panel - Serum or Plasma *BMP [facility] Work Phone: Start: 11-14-2014 End: 11-15-2014 CBC W Auto Differential panel - Blood *CBC with Differential [facility] Work Phone: Start: 11-14-2014 End: 11-15-2014 Chest x-ray X-Ray, Chest, PA & Lateral [facility] Work Phone: Start: 11-14-2014 End: 11-14-2014 Follow up Appt 3 weeks Follow up Appt 3 weeks [facility] Work Phone: Start: 11-14-2014 End: 11-14-2014 MMM MMM [facility] Work Phone: Start: 11-14-2014 End: 11-15-2014 Natriuretic peptide B [Mass/volume] in Blood *Brain Natriuretic Peptide BNP [facility] Work Phone: Start: 10-16-2014 End: 11-14-2014 Follow Up Appt 3 months Follow Up Appt 3 months [facility] Work Phone: Start: 10-16-2014 End: 11-14-2014 Pacer Clinic Pacer Clinic [facility] Work Phone: Start: 10-16-2014 End: 11-14-2014 Follow Up Appt 3 months Follow Up Appt 3 months [facility] Work Phone: Start: 10-16-2014 End: 11-14-2014 Pacer Clinic Pacer Clinic [facility] Work Phone: Start: 09-03-2014 End: 10-01-2014 *Hepatic Function Panel *Hepatic Function Panel [facility] Work Phone: Start: 09-03-2014 End: 09-03-2014 Ecg routine ecg w/least 12 lds w/i&r EKG (In office) [facility] Work Phone: Start: 09-03-2014 End: 09-03-2014 Follow Up Appt Other Follow Up Appt Other [facility] Work Phone: Start: 09-03-2014 End: 10-01-2014 Lipid panel [AGGREGATE] *Lipid Profile CC PCP [facility] Work Phone: Start: 09-03-2014 End: 09-03-2014 PFM PFM [facility] Work Phone: Start: 09-03-2014 End: 09-03-2014 Ecg routine ecg w/least 12 lds w/i&r EKG (In office) [facility] Work Phone: Start: 09-03-2014 End: 09-03-2014 Follow Up Appt Other Follow Up Appt Other [facility] [employer] Phone: Start: 09-03-2014 End: 10-01-2014 Hepatic function 2000 panel - Serum or Plasma *Hepatic Function Panel [facility] Work Phone: Start: 09-03-2014 End: 10-01-2014 Lipid 1996 panel - Serum or Plasma *Lipid Profile CC PCP [facility] Work Phone: Start: 09-03-2014 End: 09-03-2014 PFM PFM [facility] Work Phone: Start: 07-03-2014 End: 08-23-2014 Follow Up Appt 3 months Follow Up Appt 3 months [facility] Work Phone: Start: 07-03-2014 End: 08-23-2014 Pacer Clinic Pacer Clinic [facility] Work Phone: Start: 07-03-2014 End: 08-23-2014 Follow Up Appt 3 months Follow Up Appt 3 months [facility] Work Phone: Start: 07-03-2014 End: 08-23-2014 Pacer Clinic Pacer Clinic [facility] Work Phone: Start: 04-04-2014 End: 07-03-2014 Follow Up Appt 3 months Follow Up Appt 3 months [facility] Work Phone: Start: 04-04-2014 End: 07-03-2014 Pacer Clinic Pacer Clinic [facility] Work Phone: Start: 04-04-2014 End: 07-03-2014 Follow Up Appt 3 months Follow Up Appt 3 months [facility] Work Phone: Start: 04-04-2014 End: 07-03-2014 Pacer Clinic Pacer Clinic [facility] Work Phone: Start: 03-02-2014 End: 10-01-2014 *Hepatic Function Panel *Hepatic Function Panel [facility] Work Phone: Start: 03-02-2014 End: 03-02-2014 Follow Up Appt 6 months Follow Up Appt 6 months [facility] Work Phone: Start: 03-02-2014 End: 10-01-2014 Lipid panel [AGGREGATE] *Lipid Profile CC PCP [facility] Work Phone: Start: 03-02-2014 End: 03-02-2014 MMM MMM [facility] Work Phone: Start: 03-02-2014 End: 03-02-2014 Follow Up Appt 6 months Follow Up Appt 6 months [facility] Work Phone: Start: 03-02-2014 End: 10-01-2014 Hepatic function 2000 panel - Serum or Plasma *Hepatic Function Panel [facility] Work Phone: Start: 03-02-2014 End: 10-01-2014 Lipid 1996 panel - Serum or Plasma *Lipid Profile CC PCP [facility] Work Phone: Start: 03-02-2014 End: 03-02-2014 MMM MMM [facility] Work Phone: Start: 01-30-2014 End: 08-23-2014 *Hepatic Function Panel *Hepatic Function Panel [facility] Work Phone: Start: 01-30-2014 End: 08-23-2014 Lipid panel [AGGREGATE] *Lipid Profile CC PCP [facility] Work Phone: Start: 01-30-2014 End: 08-23-2014 Hepatic function 2000 panel - Serum or Plasma *Hepatic Function Panel [facility] Work Phone: Start: 01-30-2014 End: 08-23-2014 Lipid 1996 panel - Serum or Plasma *Lipid Profile CC PCP [facility] Work Phone: Start: 12-26-2013 End: 07-03-2014 Follow Up Appt 3 months Follow Up Appt 3 months [facility] Work Phone: Start: 12-26-2013 End: 07-03-2014 Pacer Clinic Pacer Clinic [facility] Work Phone: Start: 12-26-2013 End: 07-03-2014 Follow Up Appt 3 months Follow Up Appt 3 months [facility] Work Phone: Start: 12-26-2013 End: 07-03-2014 Pacer Clinic [facility] Work Phone: Start: 08-17-2013 End: 12-18-2013 Follow Up Appt 3 months Follow Up Appt 3 months [facility] Work Phone: Start: 08-17-2013 End: 12-18-2013 Pacer Clinic Pacer Clinic [facility] Work Phone: Start: 08-17-2013 End: 12-18-2013 Follow Up Appt 3 months Follow Up Appt 3 months [facility] Work Phone: Start: 08-17-2013 End: 12-18-2013 Pacer Clinic Pacer Clinic [facility] Work Phone: Start: 08-04-2013 End: 08-18-2013 *Hepatic Function Panel *Hepatic Function Panel [facility] Work Phone: Start: 08-04-2013 End: 08-04-2013 Device Interrogation Device Interrogation [facility] Work Phone: Start: 08-04-2013 End: 08-04-2013 Follow Up Appt 6 months Follow Up Appt 6 months [facility] Work Phone: Start: 08-04-2013 End: 08-18-2013 Lipid panel [AGGREGATE] *Lipid Profile CC PCP [facility] Work Phone: Start: 08-04-2013 End: 08-04-2013 PFM PFM [facility] Work Phone: Start: 08-04-2013 End: 08-04-2013 Device Interrogation Device Interrogation [facility] Work Phone: Start: 08-04-2013 End: 08-04-2013 Follow Up Appt 6 months Follow Up Appt 6 months [facility] Work Phone: Start: 08-04-2013 End: 08-18-2013 Hepatic function 2000 panel - Serum or Plasma *Hepatic Function Panel [facility] Work Phone: Start: 08-04-2013 End: 08-18-2013 Lipid 1996 panel - Serum or Plasma *Lipid Profile CC PCP [facility] Work Phone: Start: 08-04-2013 End: 08-04-2013 PFM PFM [facility] Work Phone: Start: 05-19-2013 End: 08-04-2013 Follow Up Appt 3 months Follow Up Appt 3 months [facility] Work Phone: Start: 05-19-2013 End: 08-04-2013 Pacer Clinic Pacer Clinic [facility] Work Phone: Start: 05-19-2013 End: 08-04-2013 Follow Up Appt 3 months Follow Up Appt 3 months [facility] Work Phone: Start: 05-19-2013 End: 08-04-2013 Pacer Clinic Pacer Clinic [facility] Work Phone: Start: 03-20-2013 End: 08-04-2013 Follow Up Appt 6 months Follow Up Appt 6 months [facility] Work Phone: Start: 03-20-2013 End: 03-20-2013 Follow Up Appt Other Follow Up Appt Other [facility] Work Phone: Start: 03-20-2013 End: 08-04-2013 PFM [facility] Work Phone: Start: 03-20-2013 End: 08-04-2013 Follow Up Appt 6 months Follow Up Appt 6 months [facility] Work Phone: Start: 03-20-2013 End: 03-20-2013 Follow Up Appt Other Follow Up Appt Other [facility] Work Phone: Start: 03-20-2013 End: 08-04-2013 PFM [facility] Work Phone: Start: 02-15-2013 End: 03-20-2013 Follow Up Appt 3 months Follow Up Appt 3 months [facility] Work Phone: Start: 02-15-2013 End: 03-20-2013 Pacer Clinic Pacer Clinic [facility] Work Phone: Start: 02-15-2013 End: 03-20-2013 Follow Up Appt 3 months Follow Up Appt 3 months [facility] Work Phone: Start: 02-15-2013 End: 03-20-2013 Pacer Clinic Pacer Clinic [facility] Work Phone: Start: 01-30-2013 End: 03-20-2013 *Hepatic Function Panel *Hepatic Function Panel [facility] Work Phone: Start: 01-30-2013 End: 03-20-2013 Lipid panel [AGGREGATE] *Lipid Profile [facility] Work Phone: Start: 01-30-2013 End: 03-20-2013 Thyroid stimulating hormone (TSH) *TSH [facility] Work Phone: Start: 01-30-2013 End: 08-17-2012 Thyroxine (T4) *T4 (Total) [facility] Work Phone: Start: 01-30-2013 End: 03-20-2013 Hepatic function 2000 panel - Serum or Plasma *Hepatic Function Panel [facility] Work Phone: Start: 01-30-2013 End: 03-20-2013 Lipid 1996 panel - Serum or Plasma *Lipid Profile [facility] Work Phone: Start: 01-30-2013 End: 03-20-2013 Thyrotropin [Units/volume] in Serum or Plasma *TSH [facility] Work Phone: Start: 01-30-2013 End: 08-17-2012 Thyroxine (T4) [Mass/volume] in Serum or Plasma *T4 (Total) [facility] Work Phone: Start: 10-01-2012 End: 03-20-2013 *Hepatic Function Panel *Hepatic Function Panel [facility] Work Phone: Start: 10-01-2012 End: 03-20-2013 Lipid panel [AGGREGATE] *Lipid Profile [facility] Work Phone: Start: 10-01-2012 End: 03-20-2013 Hepatic function 2000 panel - Serum or Plasma *Hepatic Function Panel [facility] Work Phone: Start: 10-01-2012 End: 03-20-2013 Lipid 1996 panel - Serum or Plasma *Lipid Profile [facility] Work Phone: Start: 08-10-2012 End: 08-17-2012 *BMP *BMP [facility] Work Phone: Start: 08-10-2012 End: 03-20-2013 *CBC with Differential *CBC with Differential [facility] Work Phone: Start: 08-10-2012 End: 08-10-2012 Ecg routine ecg w/least 12 lds w/i&r EKG (In office) [facility] Work Phone: Start: 08-10-2012 End: 08-10-2012 Follow Up Appt 6 months Follow Up Appt 6 months [facility] Work Phone: Start: 08-10-2012 End: 08-17-2012 Magnesium *Magnesium [facility] Work Phone: Start: 08-10-2012 End: 08-17-2012 Thyroid stimulating hormone (TSH) *TSH [facility] Work Phone: Start: 08-10-2012 End: 08-17-2012 Thyroxine (T4) *T4 (Total) [facility] Work Phone: Start: 08-10-2012 End: 08-17-2012 Basic metabolic 2000 panel - Serum or Plasma *BMP [facility] Work Phone: Start: 08-10-2012 End: 03-20-2013 CBC W Auto Differential panel - Blood *CBC with Differential [facility] Work Phone: Start: 08-10-2012 End: 08-10-2012 Ecg routine ecg w/least 12 lds w/i&r EKG (In office) [facility] Work Phone: Start: 08-10-2012 End: 08-10-2012 Follow Up Appt 6 months Follow Up Appt 6 months [facility] Work Phone: Start: 08-10-2012 End: 08-17-2012 Magnesium [Mass/volume] in Serum or Plasma *Magnesium [facility] Work Phone: Start: 08-10-2012 End: 08-17-2012 Thyrotropin [Units/volume] in Serum or Plasma *TSH [facility] Work Phone: Start: 08-10-2012 End: 08-17-2012 Thyroxine (T4) [Mass/volume] in Serum or Plasma *T4 (Total) [facility] Work Phone: Start: 05-02-2012 End: 05-02-2012 *Hepatic Function Panel *Hepatic Function Panel [facility] Work Phone: Start: 05-02-2012 End: 05-02-2012 Ecg routine ecg w/least 12 lds w/i&r EKG (In office) [facility] Work Phone: Start: 05-02-2012 End: 05-02-2012 Echocardiography Echocardiogram (complete) [facility] [employer] Phone: Start: 05-02-2012 End: 05-02-2012 Follow Up Appt 6 months Follow Up Appt [address] [facility] [employer] Phone: Start: 05-02-2012 End: 05-02-2012 Lipid panel [AGGREGATE] *Lipid Profile [facility] Phone: Start: 05-02-2012 End: 05-02-2012 Nuclear stress test -adenosine Nuclear stress test -adenosine [facility] Work Phone: Start: 05-02-2012 End: 05-02-2012 Ecg routine ecg w/least 12 lds w/i&r EKG (In office) [facility] [employer] Phone: Start: 05-02-2012 End: 05-02-2012 Echocardiography Echocardiogram (complete) [facility] [employer] Phone: Start: 05-02-2012 End: 05-02-2012 Follow Up Appt 6 months Follow Up Appt [address] [facility] [employer] Phone: Start: 05-02-2012 End: 05-02-2012 Hepatic function 2000 panel - Serum or Plasma *Hepatic Function Panel [facility] [employer] Phone: Start: 05-02-2012 End: 05-02-2012 Lipid 1996 panel - Serum or Plasma *Lipid Profile [facility] Phone: Start: 05-02-2012 End: 05-02-2012 Nuclear stress test -adenosine Nuclear stress test -adenosine [facility] Work Phone: Start: 01-06-2011 RSV High Risk: (Elderly (60+) or Population) (1 - 1-dose 75+ series) RSV High Risk: (Elderly (60+) or Population) (1 - 1-dose 75+ series) [facility] Start: 08-31-2009 Pneumococcal vaccination Pneumococcal Vaccine (2 of 2 - PCV) [facility] Start: 08-31-2009 Pneumococcal Vaccine: 65+ Years (2 of 2 - PCV) Pneumococcal Vaccine: 65+ Years (2 of 2 - PCV) [facility] Start: 01-06-2001 ADVANCE DIRECTIVE DISCUSSION ADVANCE DIRECTIVE DISCUSSION [facility] Start: 1996 RSV patients and/or patients aged 60+ years (1 - 1-dose 60+ series) RSV patients and/or patients aged 60+ years (1 - 1-dose 60+ series) [facility] Start: 01-06-1986 SHINGRIX VACCINE (1 of 2) SHINGRIX VACCINE (1 of 2) [facility] Start: 01-06-1986 Zoster Vaccines (1 of 2) Zoster Vaccines (1 of 2) [facility] Start: 01-06-1955 Urine microalbumin profile DTAP,TDAP,TD (1 - Tdap) [facility] Start: 01-06-1954 Diabetes mellitus screening Diabetes Screening [facility] Start: 1936 Annual wellness visit Welcome to Medicare Visit [facility] Start: [address] [facility] Start: 1936 Lipid panel Lipid Panel [facility] Start: 1936 Medicare Annual Wellness Visit Medicare Annual Wellness Visit (AWV) [facility] Basic metabolic 2008 panel with ionized calcium - Serum or Plasma [facility] End: 07-25-2024 Continuous Pulse oximetry, In Phase 1 Continuous Pulse oximetry, In Phase 1 Respiratory Care Routine Continuous until discontinued starting 07/25/2024 [facility] Work Phone: Comment on above: Continuous until discontinued starting 0 07/25/2024 End: 07-10-2024 CT Abdomen and Pelvis W contrast IV [facility] Work Phone: Comment on above: Once for 1 Occurrences starting 07/10/20 until 07/10/2024 Cystostomy cystotomy w/drainage Cystotomy Suprapubic Urinary retention [facility] Electrocardiographic procedure [facility] Patient Education [facility] Work Phone: Patient referral [facility] Work Phone: Surgical pathology study Surgica l Pathology Exam Pathology and Cytology Routine Elevated PSA 06/14/2024 12:45 PM EDT [facility] Service [facility] Work Phone: Urine culture [facility] Immunizations Immunization Date Immunization Notes Care Provider Fa [email or web address] 09-05-2023 Influenza High-Dose Quadrivalent Dr. John Noel Work Phone: [facility] 09-05-2023 influenza virus vacc ine, unspecified formulation Asmita Zambrano MD Work Phone: [facility] Work Phone: 07-31-2020 influenza, injectabl e, quadrivalent, preservative free Dr. John Noel Work Phone: [facility] 07-31-2020 influenza, seasonal, injectable [facility] 07-31-2020 Fluad Quad (65yr up)(PF) 60 mcg (15 mcg x 4)/0.5mL IM syringe (flu vac [facility] Work Phone: 01-26-2020 tetanus toxoid, redu blanche diphtheria toxoid, and acellular pertussis vaccine, adsorbed [facility] 08-17-2018 Influenza virus vaccine [facility] 08-17-2018 Fluad 2017- 65yr up(PF)45 mcg(15 mcgx3)/0.5 mL intramuscular syringe (flu vac [facility] Work Phone: 11-05-2015 tetanus and diphther ia toxoids, adsorbed, preservative free, for adult use (2 Lf of tetanus toxoid and 2 Lf of diphtheria toxoid) [facility] 08-31-2008 influenza virus vacc ine, unspecified formulation Marino Roque Work Phone: [facility] 08-31-2008 pneumococcal polysaccharide vaccine, 23 valent Marino Roque Work Phone: [facility] Payers Date Payer Category Payer Self-pay [id number] 2023 Medicare [employer] [id number] 2023-Present [address] [place] [id number] [id number] 2023 Medicare (Managed Care) [employer] [id number] 2023 Medicare [id number] 2014 Unknown [id number] 1936 Unknown [id number] 1936 Unknown [id number] 1936 Unknown [id number] 1936 Unknown [id number] 1936 Unknown [id number] 1936 Unknown [id number] 1936 Unknown [id number] 2.16.840.1.150816.3.579.2.1 244 1935 Unknown [id number] 2.16.840.1.668856.3.579.2.1 244 1936 Unknown [id number] 2.16.840.1.084054.3.579.2.1 244 1936 Unknown [id number] 2.16.840.1.810642.3.579.2.1 244 1936 Unknown [id number] 2.16.840.1.310426.3.579.2.1 244 1936 Unknown [id number] 2.16.840.1.396093.3.579.2.1 244 1936 Unknown [id number] 2.16.840.1.530244.3.579.2.1 244 1936 Unknown [id number] 2.16.840.1.620723.3.579.2.1 244 1936 Unknown [id number] 2.16.840.1.698413.3.579.2.1 244 1936 Unknown [id number] 2.16.840.1.581537.3.579.2.1 244 Unknown [id number] 2.16.840.1.806609.3.579.2.4 62 Unknown [id number] 2.16.840.1.902617.3.579.2.4 62 Unknown [id number] 2.16.840.1.206224.3.579.2.4 62 Unknown [id number] 2.16.840.1.439687.3.579.2.4 62 Unknown [id number] 2.16.840.1.988410.3.579.2.4 62 Unknown [id number] 2.16.840.1.310025.3.579.2.4 62 Unknown [id number] 2.16.840.1.254277.3.579.2.4 62 Unknown 1948 2.16.840.1.419767.3.579.2.4 62 Unknown [id number] 2.16.840.1.840760.3.579.2.4 62 Unknown [id number] 2.16.840.1.926887.3.579.2.4 62 Unknown [id number] 2.16.840.1.279770.3.579.2.4 62 Unknown [id number] 2.16.840.1.874925.3.579.2.4 62 Unknown [id number] 2.16.840.1.489361.3.579.2.4 62 Unknown [id number] 2.16.840.1.466274.3.579.2.4 62 Unknown [id number] 2.16.840.1.015591.3.579.2.4 62 Unknown [id number] 2.16.840.1.493503.3.579.2.4 62 Unknown [id number] 2.16.840.1.090024.3.579.2.4 62 Unknown [id number] 2.16.840.1.263474.3.579.2.4 62 Unknown [id number] 2.16.840.1.121823.3.579.2.4 62 Unknown [id number] 2.16.840.1.323890.3.579.2.4 62 Unknown [id number] 2.16.840.1.326912.3.579.2.4 62 Social History Date Type Detail Facility Start: 06-12-2010 End: 04-28-2025 Tobacco smoking status GAIS Never smoker [facility] Start: 06-12-2010 Alcohol intake Current non-dr ham stringer of alcohol (finding) [facility] Start: 1935 Sex Assigned At Not on file [facility] Start: 09-04-2021 End: 10-11-2023 Tobacco smoking status GAIS Unknown if ever smoked [facility] Start: 10-01-2019 None [facility] Start: 10-01-2019 With Family [facility] Start: 12-29-2018 Non-smoker [facility] Start: 1935 Sex Assigned At Male [facility] Start: 04-26-2024 Tobacco use and exposure Smokeless tobacco non-user [facility] Work Phone: Start: 04-26-2024 End: 02-26-2025 History of Social function [facility] Work Phone: Start: 04-26-2024 End: 02-26-[address] [facility] Work Phone: Start: 04-16-2024 End: 04-09-2025 Exposure to SARS-CoV-2 (event) Not sure [facility] Start: 07-25-2024 End: 04-24-2025 Alcoholic beverage intake Ex-drinker (finding) [facility] Work Phone: Start: 02-09-2025 Sex Male (finding) [facility] Medical Equipment Procedure Code Equipment Code Equipment Original Text Equipment Identifier Dates Laser Equipment (Contracted) - [id number] Start: 02-01-2014 Comment on above: Description: SENDY WHITFIELD LASER Goals Date Patient Goal Desired Activity /State Functional Status Date Assessment Result Facility 04-29-2025 Functional status Ambulates [facility] Work Phone: 10-22-2023 Functional status Bedrest;Bathroom Privil ege [facility] Work Phone: 09-06-2023 Functional status Ambulates;Chair [facility] Work Phone: 09-05-2023 Functional status Ambulates [facility] Work Phone: Mental Status Date Assessment Result Facility 04-29-2025 Cognitive function Voice/Name [facility] Work Phone: 12-16-2024 Cognitive function Level Of Cons ciousness Awake;Alert;Appropriate [facility] Work Phone: 10-21-2023 Cognitive function Voice/Name [facility] Work Phone: 09-06-2023 Cognitive function Appropriate;Cooperativ e [facility] Work Phone: 10-21-2022 Cognitive function Voice/Name [facility] Work Phone: Clinical Notes 04-12-2017 to 05-09-2025 Note Date & Type Note Facility 05-09-2025 Radiology Diagnostic study note [facility] Imaging Services [address] [place], [place] [id number] Abdomen Single View MR#: [id number] Acct: [id number] Name: RAJAT GUZMÁN Rep #: [id number] : 1935 M 89 From: Belkys Pringle MD PCP: Dr. John Noel DO Status: REG CLI Study:Abdomen Single View Date of Exam: 05/09/25 Exam# [id number] Ordering Dr: John Noel DO EXAM: XR Abdomen, 1 View CLINICAL INDICATION: UNSPECIFIED ABD PAIN TECHNIQUE: Frontal supine view of the abdomen/pelvis. COMPARISON: No relevant prior studies available. FINDINGS: GASTROINTESTINAL TRACT: Fecal retention in the colon consistent with constipation. No dilation. BONES/JOINTS: Unremarkable. No acute fracture. LYMPH NODES: Probable calcific density over left-sided mid abdomen, prior from calcified lymph nodes. These are better demonstrated on CT abdomen pelvis dated 04/07/2023. RAD/Abdomen Single View IMPRESSION: Fecal retention in the colon consistent with constipation. [facility] CC: Dr. John Noel DO ~ Licensed Mortician: Signed [facility] 04-29-2025 Progress note [facility] 04-28-2025 Discharge summary Note Date/Time April 28, 2025 5:44pm [facility] Medical Records Department [address] [place] [address] Emergency Department Summary 04/28/25 MR#: [id number] Acct: [id number] Name: RAJAT GUZMÁN Rep #:[id number] : 1935 89 From: Henok Villarreal MD PCP: Dr. John Noel, DO Status:REG ER Location: ED HPI History of Present Illness Chief Complaint: Complaint Detail of Chief Complaint: Urinary symptoms, nausea and vomiting and now dry heaves Informant: patient and family (Daughter who lives near him) Onset/Context/Timing Onset: Yesterday and Days (Has not eaten well for the past 2 to 3 days.) Context: Sudden Onset Timing: Continuous Quality: Patient diagnosed with UTI yesterday, now has nausea and vomiting Location: and GI Current Severity: Mild Maximum Severity: Moderate Worsened by: Attempt to eat or drink anything or urinate Relieved by: Nothing Associated Symptoms Associated Symptoms: Subjective fever no chills. Narrative Narrative: Patient is an 89-year-old male. He was seen yesterday. [place]. He has not eaten well according to daughter for the past 2 to 3 days. Patient does admit he has not eaten well. He was diagnosed yesterday with a UTI. He was placed on cephalexin 500 mg. Patient has not been able to take 1 dose because of nausea vomiting and now dry heaves. He denies headache, double vision blurred vision loss of vision. He denies ringing in ears decreased hearing. Denies trouble with speech or swallowing. He does endorse thirst and dry mouth. He denies cardiac or respiratory symptoms. He denies abdominal pain. He does endorse nausea vomiting and dry heaves. He denies diarrhea or constipation. He does admit to dark urine, dysuria and frequency. He denies testicular pain. He denies pain in the perineal area. Prior similar symptoms: Yes Recent [facility] Medical History Non-smoker History of [...] Chest pain, precordial Atherosclerotic heart disease of kenaitze coronary artery without angina pectoris Dyspnea Fatigue [...] PO BID #60 tabs 11/01 Unknown Rx oxybutynin chloride 5 mg 5 mg PO [...] mg PO Q6 #28 CAPSULES Unknown Rx phenazopyridine 200 mg tablet 200 mg PO TID 6 doses #5 tabs 04/27/25 Unknown Rx (Pyridium) Allergy/AdvReac Type Severity Reaction Status Date / Time morphine Allergy Intermediate Rash Verified 04/28/25 15:27 zolpidem tartrate (From AdvReac Intermediate CONFUSION Verified 04/28/25 15:27 Ambien) Family History Mother CAD (coronary artery [...] safe at home: Yes ROS ROS ED Constitutional Constitutional ED: Reports chills and subjective; Denies sweats Eyes Eyes: Denies blurry vision, change in vision or diplopia ENT ENT ED: Denies ear pain or rhinorrhea Cardiovascular Cardiovascular: Denies chest pain, orthopnea, palpitations, paroxysmal nocturnaldyspnea or racing heartbeat Respiratory/Chest Respiratory/Chest: Denies cough, dyspnea, dyspnea on exertion, orthopnea or paroxysmal nocturnal dyspnea Gastrointestinal Gastrointestinal: Reports nausea and vomiting; Denies abdominal pain, diarrhea or melena Genitourinary Genitourinary ED: Reports dysuria, hematuria and urinary frequency Musculoskeletal Musculoskeletal: Denies arthralgias, back pain or myalgias Integumentary Denies rash Neurologic Neurologic: Reports weakness; Denies headache(s) or paresthesias Psychiatric Psychiatric: Denies anxiety or depression Endocrine Endocrinology: Denies cold intolerance or heat intolerance Hematologic/Lymphatic Hematologic/Lymphatic: Reports systems reviewed and no addt'l complaints, exceptas documented EXAM Physical Exam Const Vital Signs: 04/28/25 15:25 04/28/25 17:25 Temperature 98.3 F Temperature Source Oral Pulse Rate 90 77 Respiratory Rate 16 16 Blood Pressure 150/80 H 149/64 H Blood Pressure Mean 103 92 Pulse Ox 98 100 Oxygen Delivery Method Room Air Room Air Positive well nourished and well developed Constitutional Narrative: Blood pressure is elevated. General Appearance ED: well developed and pallor; Negative for cyanotic or diaphoretic HEENT Reports dry mucous membranes HEENT Narrative: Head is atraumatic normocephalic. Ears normal. He is hard of hearing. Nares patent. Posterior pharynx unremarkable Mouth ED: Yes dry mucous membranes Mouth: dry mucous membranes Eyes PERRL and EOMs intact bilaterally General Eye ED: Yes pale conjunctiva; Negative for scleral icterus Neck no lymphadenopathy and supple Chest Wall inspection of chest normal and palpation of chest normal Resp normal respiratory effort and clear to auscultation bilaterally Cardio regular rate, regular rhythm, S1 normal heart sound, S2 normal heart sound and no murmurs GI normal to inspection, nondistended, normoactive bowel sounds, non-distended and no masses; Negative for non-tender or hepatosplenomegaly GI Narrative: Patient has evidence of scarred from prior suprapubic catheter. This is well-closed. Palpation: soft and tender suprapubic Narrative: There is no inguinal lymphadenopathy or inguinal mass. Back/Spine no CVA tenderness Extremity normal to inspection General Extremety ED: Negative for edema or tenderness General Extremity: Negative for edema Neuro oriented x3 and CN's II-XII intact bilaterally Sensorium / Orientation: alert Psych mental status grossly normal Skin no rashes or lesions noted and skin turgor normal General Skin Exam: pallor; Negative for elasticity normal or jaundice MDM MDM MDM Narrative Medical decision making narrative: Clinically patient appears dehydrated. Since he only weighs 53 kg he was given a 500 cc bolus. He was started on Rocephin. Blood work was repeated. UA was not repeated since he had UA yesterday and cultures done. Since patient is having nausea vomiting unable to take his antibiotics he will need admission. Lab Data Attestation: I reviewed the patient's lab results. Lab results narrative: CBC is remarkable for elevated white count. There is a slight shift. There is no bandemia. There is mild anemia with normal indices. Estimated GFR is 84. BUN and creatinine are normal. Lactate is normal. Labs: Laboratory Results - last 24 hr 04/28/25 16:20 WBC 11.5 H RBC 4.14 L Hgb 12.4 L Hct 37.3 L MCV 90.1 MCH 30.0 MCHC 33.2 RDW Std Deviation 44.0 H RDW Coeff of Arleen 13.4 Plt Count 189 MPV 10.6 Immature Gran % (Auto) 0.200 Neut % (Auto) 72.7 H Lymph % (Auto) 17.9 L Ness % (Auto) 8.6 Eos % (Auto) 0.2 Baso % (Auto) 0.4 Absolute Neuts (auto) 8.3 H Absolute Lymphs (auto) 2.05 Nucleated RBC % 0 Sodium 137 Potassium 3.8 Chloride 99 Carbon Dioxide 24.7 Anion Gap 12 BUN 9 Creatinine 0.82 Estim Creat Clear Calc 46.43 L Est GFR (MDRD) Non-Af 84 BUN/Creatinine Ratio 10.5 Glucose 149 H Lactic Acid 1.2 Calcium 9.3 Total Bilirubin 0.81 AST 21 ALT 10 Alkaline Phosphatase 64 Total Protein 7.3 Albumin 3.9 Globulin 3.3 Albumin/Globulin Ratio 1.2 Management Discussion w/another healthcare provider: Hospitalist Treatment and Re-Evaluation :: Hospitalist was paged for admission since he has failed outpatient therapy due to the fact of nausea and vomiting unable to take his antibiotics. There is no indication for blood cultures. There is no evidence of sepsis. Comments:: Case was discussed with the hospitalist. MedSurg observation since the reason he has failed his nausea and vomiting. Discharge Plan Dx/Rx/DC Orders Clinical Impression: Urinary tract infection, Leukocytosis, Nausea & vomiting, Failure of outpatienttreatment, Anemia, History of CAD (coronary artery disease) Disposition Disposition: Acute Care Hospital [facility] What to do if you have Problems For any increased pain, shortness of breath, bleeding, nausea or vomiting, chestpain, or any unexpected problems, contact your Primary Care Provider. Call [facility] ([phone]) or report to the closest Emergency Room. Call 911 if necessary. 04/28/25 5231 <Electronically signed by Henok Villarreal MD> Cosigner Signature (if applicable): CC: Dr. John Noel, ~ Signed [facility] Work Phone: 1(401) 767-902806-28-2025 Discharge summary [facility] Medical Records Department [address] [place] [address] Emergency Department Summary 04/28/25 MR#: [id number] Acct: [id number] Name: RAJAT GUZMÁN Rep #:[id number] : 1935 89 From: Henok Villarreal MD PCP: Dr. John Noel, DO Status:REG ER Location: ED HPI History of Present Illness Chief Complaint: Complaint Detail of Chief Complaint: Urinary symptoms, nausea and vomiting and now dry heaves Informant: patient and family (Daughter who lives near him) Onset/Context/Timing Onset: Yesterday and Days (Has not eaten well for the past 2 to 3 days.) Context: Sudden Onset Timing: Continuous Quality: Patient diagnosed with UTI yesterday, now has nausea and vomiting Location: and GI Current Severity: Mild Maximum Severity: Moderate Worsened by: Attempt to eat or drink anything or urinate Relieved by: Nothing Associated Symptoms Associated Symptoms: Subjective fever no chills. Narrative Narrative: Patient is an 89-year-old male. He was seen yesterday. [place] He has not eaten well according to daughter for the past 2 to 3 days. Patient does admit he has not eaten well. He was diagnosed yesterday with a UTI. He was placed on cephalexin 500 mg. Patient has not beenable to take 1 dose because of nausea vomiting and now dry heaves. He denies headache, double vision blurred vision loss of vision. He denies ringing in ears decreased hearing. Denies trouble with speech or swallowing. He does endorse thirst and dry mouth. He denies cardiac or respiratory symptoms. He denies abdominal pain. He does endorse nausea vomiting and dry heaves. He denies diarrhea or constipation. He does admit to dark urine, dysuria and frequency. He denies testicular pain. He denies pain in the perineal area. 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 Dyspnea Fatigue [...] PO BID #60 tabs 11/01 Unknown Rx oxybutynin chloride 5 mg 5 mg PO [...] mg PO Q6 #28 CAPSULES Unknown Rx phenazopyridine 200 mg tablet 200 mg PO TID 6 doses #5 tabs 04/27/25 Unknown Rx (Pyridium) Allergy/AdvReac Type Severity Reaction Status Date / Time morphine Allergy Intermediate Rash Verified 04/28/25 15:27 zolpidem tartrate (From AdvReac Intermediate CONFUSION Verified 04/28/25 15:27 Ambien) Family History Mother CAD (coronary artery [...] safe at home: Yes ROS ROS ED Constitutional Constitutional ED: Reports chills and subjective; Denies sweats Eyes Eyes: Denies blurry vision, change in vision or diplopia ENT ENT ED: Denies ear pain or rhinorrhea Cardiovascular Cardiovascular: Denies chest pain, orthopnea, palpitations, paroxysmal nocturnaldyspnea or racing heartbeat Respiratory/Chest Respiratory/Chest: Denies cough, dyspnea, dyspnea on exertion, orthopnea or paroxysmal nocturnal dyspnea Gastrointestinal Gastrointestinal: Reports nausea and vomiting; Denies abdominal pain, diarrhea or melena Genitourinary Genitourinary ED: Reports dysuria, hematuria and urinary frequency Musculoskeletal Musculoskeletal: Denies arthralgias, back pain or myalgias Integumentary Denies rash Neurologic Neurologic: Reports weakness; Denies headache(s) or paresthesias Psychiatric Psychiatric: Denies anxiety or depression Endocrine Endocrinology: Denies cold intolerance or heat intolerance Hematologic/Lymphatic Hematologic/Lymphatic: Reports systems reviewed and no addt'l complaints, exceptas documented EXAM Physical Exam Const Vital Signs: 04/28/25 15:25 04/28/25 17:25 Temperature 98.3 F Temperature Source Oral Pulse Rate 90 77 Respiratory Rate 16 16 Blood Pressure 150/80 H 149/64 H Blood Pressure Mean 103 92 Pulse Ox 98 100 Oxygen Delivery Method Room Air Room Air Positive well nourished and well developed Constitutional Narrative: Blood pressure is elevated. General Appearance ED: well developed and pallor; Negative for cyanotic or diaphoretic HEENT Reports dry mucous membranes HEENT Narrative: Head is atraumatic normocephalic. Ears normal. He is hard of hearing. Nares patent. Posterior pharynx unremarkable Mouth ED: Yes dry mucous membranes Mouth: dry mucous membranes Eyes PERRL and EOMs intact bilaterally General Eye ED: Yes pale conjunctiva; Negative for scleral icterus Neck no lymphadenopathy and supple Chest Wall inspection of chest normal and palpation of chest normal Resp normal respiratory effort and clear to auscultation bilaterally Cardio regular rate, regular rhythm, S1 normal heart sound, S2 normal heart sound and no murmurs GI normal to inspection, nondistended, normoactive bowel sounds, non-distended and no masses; Negativefor non-tender or hepatosplenomegaly GI Narrative: Patient has evidence of scarred from prior suprapubic catheter. This is well-closed. Palpation: soft and tender suprapubic Narrative: There is no inguinal lymphadenopathy or inguinal mass. Back/Spine no CVA tenderness Extremity normal to inspection General Extremety ED: Negative for edema or tenderness General Extremity: Negative for edema Neuro oriented x3 and CN's II-XII intact bilaterally Sensorium / Orientation: alert Psych mental status grossly normal Skin no rashes or lesions noted and skin turgor normal General Skin Exam: pallor; Negative for elasticity normal or jaundice MDM MDM MDM Narrative Medical decision making narrative: Clinically patient appears dehydrated. Since he only weighs 53 kg he was given a 500 cc bolus. He was started on Rocephin. Blood work was repeated. UA was not repeated since he had UA yesterday and cultures done. Since patient is having nausea vomiting unable to take his antibiotics he will need admission. Lab Data Attestation: I reviewed the patient's lab results. Lab results narrative: CBC is remarkable for elevated white count. There is a slight shift. There is no bandemia. There ismild anemia with normal indices. Estimated GFR is 84. BUN and creatinine are normal. Lactate is normal. Labs: Laboratory Results - last 24 hr 04/28/25 16:20 WBC 11.5 H RBC 4.14 L Hgb 12.4 L Hct 37.3 L MCV 90.1 MCH 30.0 MCHC 33.2 RDW Std Deviation 44.0 H RDW Coeff of Arleen 13.4 Plt Count 189 MPV 10.6 Immature Gran % (Auto) 0.200 Neut % (Auto) 72.7 H Lymph % (Auto) 17.9 L Ness % (Auto) 8.6 Eos % (Auto) 0.2 Baso % (Auto) 0.4 Absolute Neuts (auto) 8.3 H Absolute Lymphs (auto) 2.05 Nucleated RBC % 0 Sodium 137 Potassium 3.8 Chloride 99 Carbon Dioxide 24.7 Anion Gap 12 BUN 9 Creatinine 0.82 Estim Creat Clear Calc 46.43 L Est GFR (MDRD) Non-Af 84 BUN/Creatinine Ratio 10.5 Glucose 149 H Lactic Acid 1.2 Calcium 9.3 Total Bilirubin 0.81 AST 21 ALT 10 Alkaline Phosphatase 64 Total Protein 7.3 Albumin 3.9 Globulin 3.3 Albumin/Globulin Ratio 1.2 Management Discussion w/another healthcare provider: Hospitalist Treatment and Re-Evaluation :: Hospitalist was paged for admission since he has failed outpatient therapy due to the fact of nausea and vomiting unable to take his antibiotics. There is no indication for blood cultures. There is no evidence of sepsis. Comments:: Case was discussed with the hospitalist. MedSurg observation since the reason he has failed his nausea and vomiting. Discharge Plan Dx/Rx/DC Orders Clinical Impression: Urinary tract infection, Leukocytosis, Nausea & vomiting, Failure of outpatienttreatment, Anemia, History of CAD (coronary artery disease) Disposition Disposition: Acute Care Hospital [facility] What to do if you have Problems For any increased pain, shortness of breath, bleeding, nausea or vomiting, chestpain, or any unexpected problems, contact your Primary Care Provider. Call [facility] ([phone]) or report tothe closest Emergency Room. Call 911 if necessary. 04/28/25 5861 Cosigner Signature (if applicable): CC: Dr. John Noel, DO ~ Signed [facility]06-27-2025 Discharge summary [facility] Medical Records Department [address] [place] [address] Emergency Department Summary 04/27/25 MR#: [id number] Acct: [id number] Name: RAJAT GUZMÁN Rep #:[id number] : 1935 89 From: Timoteo Mckenna DO PCP: Dr. John Noel, DO Status:REG ER Location: ED HPI History of [...] catheter. He denies feversor chills or sweats. PFSH [facility] Medical History (Reviewed 03/12/25 @ 16:11 by Cynthia Bowen EMPLOYEE BENEFITS COORDINATOR, EMPLOYEE BENEFITS COORDINATOR-C) Non-smoker History of heart attack Presence of [...] Chest pain, precordial Atherosclerotic heart disease of kenaitze coronary artery without angina pectoris Dyspnea Fatigue [...] CONFUSION Verified 04/27/25 20:05 Ambien) Family History (Reviewed 03/12/25 @ 16:11 by Cynthia Bowen EMPLOYEE BENEFITS COORDINATOR, EMPLOYEE BENEFITS COORDINATOR-C) Mother CAD (coronary artery disease) CVA (cerebral [...] Will treat with Pyridium. Will write a prescriptionfor Zofran as well. He felt much improved [...] (Auto) 71.1 H Lymph % (Auto) 19.6 Ness % (Auto) 7.4 Eos % (Auto) 1.0 [...] Sl. Cloudy Urine pH 6.0 Ur Specific [place] 1.015 Urine Protein 30 H Urine Glucose [...] Qty: 60 11RF Primary Care Provider: John Noel Referrals: John Noel DO [Primary Care Provider] - 3-5 Days Print Language: Palestinian Disposition Disposition: Home, Self Care What to do if you have Problems For any increased pain, shortness of breath, bleeding, nausea or vomiting, chestpain, or any unexpected problems, contact your Primary Care Provider. Call [facility] ([phone]) or report tothe closest Emergency Room. Call 911 if necessary. 04/27/251 Cosigner Signature (if applicable): CC: Dr. John Noel DO ~ Signed [facility]06-27-2025 Discharge summary Author [facility] Note Date/Time April 27, 2025 10:[facility] [address] [place] [address] Emergency Department Summary 04/27/25 MR#: [id number] Acct: [id number] Name: RAJAT GUZMÁN Rep #:[id number] : 1935 89 From: Timoteo Mckenna DO PCP: Dr. John Noel DO Status:REG ER Location: ED HPI History of [...] catheter. He denies feversor chills or sweats. [facility] Medical History (Reviewed 03/12/25 @ 16:11 by Cynthia Bowen EMPLOYEE BENEFITS COORDINATOR, EMPLOYEE BENEFITS COORDINATOR-C) Non-smoker History of heart attack Presence of [...] Chest pain, precordial Atherosclerotic heart disease of kenaitze coronary artery without angina pectoris Dyspnea Fatigue [...] CONFUSION Verified 04/27/25 20:05 Ambien) Family History (Reviewed 03/12/25 @ 16:11 by Cynthia Bowen EMPLOYEE BENEFITS COORDINATOR, EMPLOYEE BENEFITS COORDINATOR-C) Mother CAD (coronary artery disease) CVA (cerebral [...] (Auto) 71.1 H Lymph % (Auto) 19.6 Ness % (Auto) 7.4 Eos % (Auto) 1.0 [...] Sl. Cloudy Urine pH 6.0 Ur Specific [place] 1.015 Urine Protein 30 H Urine Glucose [...] Qty: 60 11RF Primary Care Provider: John Noel Referrals: John Noel DO [Primary Care Provider] - 3-5 Days Print Language: Palestinian Disposition Disposition: Home, Self Care What to do if you have Problems For any increased pain, shortness of breath, bleeding, nausea or vomiting, chestpain, or any unexpected problems, contact your Primary Care Provider. Call [facility] ([phone]) or report to the closest Emergency Room. Call 911 if necessary. 04/27/252240 <Electronically signed by Timoteo Mckenna DO> Cosigner Signature (if applicable): CC: Dr. John Noel DO ~ Signed [facility] Work Phone: [phone]) [phone] Evaluation + Plan note* Assessment & Plan Note - CORTEZ Hutchinson - 04/24/2025 3:04 PM EDTAssociated Problem(s): Urinary retention Stable. SP cath intact draining clear yellow urine. Plan for catheter change in May 2025. Encouraged fluids. [facility] Work Phone: 1([phone]) 475-154106-24-2025 Evaluation + Plan note* Assessment & Plan Note - CORTEZ Hutchinson - 04/24/2025 3:04 PM EDTAssociated Problem(s): Bladder spasm Stable. Continue oxybutynin. Encourage fluids. [facility] Work Phone: [phone] 527-754606-24-2025 Miscellaneous Notes* Assessment & Plan Note - [...] office in 6 months. [facility] Work Phone: [phone] 498-221206-24-2025 Evaluation + Plan note* Assessment & Plan [...] and follow-up in office in [address] [facility] Work Phone: [phone] History of Present illness Narrative* CORTEZ Hutchinson - 04/24/2025 1:30 PM EDT Images from the original note were not included. Urology [facility] Note Subjective Patient ID: Rajat Guzmán is a 89 y.o. male who presents for No chief complaint on file.. History of Present Illness Rajat is a 89 y.o. male who presents for follow-up for history of prostate cancer and urinary retention. Patient diagnosed with prostate cancer on 06/14/2024, Soham 9 on the right and 9 on [...] Orders PSA Follow Up In Urology PSA Cheryl Sutherland APRN-TEAM ASSEMBLER 06/24/25 3:04 PM [1] Past Medical History: Diagnosis Date BPH (benign prostatic hyperplasia) Cataract Heart disease Hiatal hernia [2] History reviewed. No pertinent surgical history. 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 March 12, 2025 2 :04pm Dyslipidemia chronic March 12 2:04pm Essential hypertension chronic 2024 2:04pm Presence of stent in coronar y artery December,March 12, 2025 2 :04pm [facility] Work Phone: [phone] Evaluation note* Diagnosis Onset Date Resolution Status Admit Date Cardiomyopathy, ischemic chronic March 12, 2025 2:04pm 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 March 12, 2025 2 :04pm Dyslipidemia chronic March 12 2:04pm Essential hypertension chronic Ma 2024 2:04pm Presence of stent in coronar y artery December,March 12, 2025 2 :04pm Anemia acute April 28 6:32pm Failure of outpatient treatment acute April 28, 2025 6:32pm History of CAD (coronary artery disease) acute April 28, 2025 6:32pm Leukocytosis acute April 28, 025 6:32pm Nausea & vomiting acute April 282024 6:32pm Urinary tract infection acute J 2024 6:32pm [facility] Work Phone: [phone] Evaluation note* Diagnosis Onset Date Resolution Status Admit Date Cardiomyopathy, ischemic chronic March 12, 2025 2:04pm 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 March 12, 2025 2 :04pm Dyslipidemia chronic March 12 2:04pm Essential hypertension chronic Ma y 2024 2:04pm Presence of stent in coronar y artery December,March 12, 2025 2 :04pm Acute UTI acute April 29 7:15am Anemia acute April 29 7:15am Failure of outpatient treatment acute April 29, 2025 7:15am History of CAD (coronary artery disease) acute April 29, 2025 7:15am Leukocytosis acute April 29, 2 025 7:15am Nausea & vomiting acute April 292024 7:15am Urinary tract infection acute J [facility] 2024 7:15am [facility] Work Phone: [phone] Evaluation note* Diagnosis Onset Date Resolution Status Admit Date Cardiomyopathy, ischemic chronic March 12, 2025 2:04pm 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 March 12, 2025 2 :04pm Dyslipidemia chronic March 12 2:04pm Essential hypertension chronic 2024 2:04pm Presence of stent in coronar y artery December, chronic March 12, 2025 2 :04pm Anemia acute April 29 7:15am Failure of outpatient treatment acute April 29, 2025 7:15am History of CAD (coronary artery disease) acute April 29, 2025 7:15am Leukocytosis acute April 29, 2 025 7:15am Nausea & vomiting acute April 292024 7:15am Urinary tract infection acute J [facility] 2024 7:15am Acute UTI inactive April 29 7:15am [facility] Work Phone: [phone] 511-765604-28-2025 History of Present illness Narrative* Toni Marquez [...] was instilled into the urethra. A 16 Danish Rod was placed, with urine return into catheter tubing, the 10cc balloon was then inflated and checked for position. The catheter was then irrigated with a mixture of Betadine 5 ml andSaline 500 ml. A leg bag was then attached. FOLLOW UP ROD CHANGE IN 6 WEEKS Cosigned by Jian Jiménez MD MPH at 02/27/2025 4:24 PM EDT [facility] Work Phone: [phone] 300-398303-05-2025 History of Present illness Narrative* Waleska Galdamez [...] was instilled into the urethra. A 16 Danish Rod was placed with a 10cc balloon which was inflated. This was then irrigated with a mixture of Betadine 5 ml and Saline 500 ml. A plug was then attached. SIZE 16FR ROD PLACED FOLLOW UP ROD CHANGE IN 6 WEEKS documented [facility] Work Phone: [phone] 490-615302-12-2025 History of Present illness Narrative* Waleska Galdamez [...] SIZE 16FR ROD PLACED documented in this [facility] Work Phone: 1([phone]) 255-318402-05-2025 History of Present illness Narrative* Liz Garcia [...] was changed and irrigated. documented in [facility]St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 Work Phone: [phone] 543-969209-24-2024 Hospital Discharge instructions* Discharge Instructions* Char Zhu RN - 07/25/2024 12:33 PM EDT DO NOT plug catheter until you have seen Dr Zambrano for follow up visit and they have made first catheter change. * Attachments The following attachments cannot be sent through Care Everywhere. * How to Care for Your Suprapubic Urinary Catheter (Palestinian) documented in [facility]St[facility] Work Phone: [phone] Attending History and physical note* Asmita Zambrano [...] Encouraged fluid intake. F/U SP tube placement [facility] Work Phone: [phone] History and physical note* Asmita Zambrano MD [...] F/U SP tube placement documented in [facility]St[facility] Work Phone: [phone] Note* Preprocedure Instructions - Inga Ceron RN - 07/24/2024 1:24 PM EDT No outpatient medications have been marked as taking for the 07/25/24 encounter (Hospital Encounter). NPO Instructions: Nothing to eat or drink after midnight Additional Instructions: Will need spike driver home [facility] Miscellaneous Notes* Preprocedure Instructions - Inga Ceron RN - 07/24/2024 1:24 PM EDT No outpatient medications have been marked as taking for the 07/25/24 encounter (Hospital Encounter). NPO Instructions: Nothing to eat or drink after midnight Additional Instructions: Will need spike driver home documented in [facility]St[facility] Work Phone: [phone]) [phone] History of Present illness Narrative* Asmita Zambrano [...] . Hx of urinary retention. He had ord placed last visit due to continuous incontinence. [...] F/U SP tube placement documented in this [facility] Work Phone: [phone] 265-580208-28-2024 History of Present illness Narrative* Asmita Zambrano [...] Encouraged fluid intake. F/U documented in this [facility] Work Phone: 1([phone]) 171-775308-14-2024 History of Present illness Narrative* Waleska Galdamez [...] 19.90 (05/17/2024) ABNORMAL LANDON. documented in [facility]St[facility] Work Phone: [phone] 320-867807-17-2024 History of Present illness Narrative* Waleska Galdamez [...] CHECK PVR AND DISCUSS. documented in [facility]St[facility] Work Phone: [phone] 361-593406-26-2024 History of Present illness Narrative* Asmita Zambrano MD - 04/26/2024 1:45 PM EDT Subjective Patient ID: Rajat Guzmán is a 89 y.o. male. HPI Patient is here to establish for second opinion for BPH. Hx of incomplete emptying. He was seeing [facility] prior. He states he was asked to learn CIC but he does not want to do this. He does not want permanent rod either. . Rod was placed 6 weeks ago and still has this today. . Hx of TURP last year at [facility]. This did not help urinary sx. He [...] day to check PVR documented in this [facility] Work Phone: [phone] Progress note Author Faisal Barth [facility] October 21, 2023 7:23am Note Date/Time October 21, 2023 7:23am [facility] Medical Records Department [address] [place] [address] Progress Note - Urology 10/21/23722 MR#: [id number] Acct: [id number] Name: RAJAT GUZMÁN Stacia Rep #:[id number] : 1935 88 From: Faisal Barth MD PCP: Dr. John Noel, DO Status:ADM [facility]ST[facility] Location: [facility] [id number] Subjective Subjective Status post TURP for regrowth [...] Cosigner Signature (if applicable): CC: ~ Signed [facility] Work Phone: [phone] 377-703212-20-2023 Discharge summary Author Faisal Barth [facility] October 20, 2023 1:07pm Note Date/Time October 20, 2023 1:07pm [facility] Medical Records Department [address] [place] [address] Instructions for Home/Discharge Instructions 10/20/23 1307 MR#: [id number] Acct: [id number] Name: RAJAT GZUMÁN Rep #:[id number] : 1935 88 From: Faisal Barth MD PCP: Dr. John Noel DO Status:[facility] Discharge Instructions Diet Discharge Diet: No restrictions Activity Discharge Activity: Return to Normal Activity and May Not Drive (while taking narcotic pain medications.) Dressing / Incision Call your doctor if you observe: Fever of 101 or Higher Follow Up Care Please Follow Up With: Faisal Barth MD When: Call [phone] for an appointment Test Results: Test results from this visit will be discussed in further detail at your follow- up appointment, if applicable. Discharge Plan Admission Attending Provider: Faisal Barth Primary Care Provider: John Noel Discharge Orders/Prescriptions Prescriptions: No Action furosemide 20 [...] Zacarias Valdes Referrals / Follow Up: John Noel DO [Primary Care Provider] - Disposition Disposition (needs filled in before D/C Order can be placed): Home, Self Care 10/20/23 1307<Electronically signed by Faisal Barth MD>Faisal Barth MD CC: Dr. John Noel DO ~ Signed [facility] Work Phone: [phone] 273-361512-20-2023 History and physical note Author Faisal Barth [facility] October 20, 2023 1:07pm Note Date/Time October 20, 2023 1:07pm [facility] Medical Records Department [address] [place] [address] History & Physical Exam 10/20/23 1306 MR#: [id number] Acct: [id number] Name: RAJAT GUZMÁN Rep #:[id number] : 1935 88 From: Faisal Barth MD PCP: Dr. John Noel, DO Status:[facility] Location: [place] [address] HPI - General General Date of Service: 10/20/23 Chief Complaint: BPH with obstruction HPI Narrative RAJAT GUZMÁN, is a 88 M who presents for a transurethral resection of prostate [facility] Medical History (Updated 10/11/23 @ 14:18 by Suzie Wiseman) Abnormal result of cardiovascular function study, unspecified Angina pectoris Atherosclerotic heart disease of kenaitze coronary artery without angina pectoris Benign prostatic [...] 5 mg tablet 5 mg PO DAILY 05/05/22 [History Last Taken 10/20/23] tamsulosin 0.4 mg [...] CC: Dr. Faisal Barth MD; Dr. John Noel DO~ Signed [facility] Work Phone: [phone] Procedure [facility] 10-12-2023 Hospital Discharge instructionsAmbulatory Orders* 12 Lead EKG [[facility]] Time Frame: 10/12/23, Location: None Selected [facility] Work Phone: [phone]) [phone] Discharge summary Author Manisha Varela [facility] September 06, 2023 3:13pm Note Date/Time September 06, 2023 3 :07pm [facility] Medical Records Department [address] [place] [address] Instructions for Home/Discharge Instructions 09/06/23 1504 MR#: [id number] Acct: [id number] Name: RAJAT GUZMÁN Rep #:[id number] : 1935 88 From: Manisha Varela MD PCP: Dr. John Noel, Status:ADM [facility] Discharge Instructions Diet Discharge Diet: [...] Provider: Manisha Varela Primary Care Provider: John Noel Consulting Providers: Manisha Varela; Natanael Nowak Instructions [...] schedule hospital follow-up appointment upon discharge.) John Noel DO [Primary Care Provider] - Within 1 Week Disposition Disposition (needs filled in before D/C Order can be placed): Home, Self Care 09/06/23 1513<Electronically signed by Manisha Varela MD>Manisha Varela MD CC: Dr. John Noel DO; Dr. Natanael Nowak MD; Dr. Manisha Varela MD ~ Signed [facility] Work Phone: [phone] Progress note Author Natanael Nowak [facility] September 05, 2023 9:01am Note Date/Time September 05, 2023 9 :01am [facility] Medical Records Department [address] [place] [address] Progress Note - Hospitalist 09/05/23 0900 MR#: [id number] Acct: [id number] Name: RAJAT GUZMÁN Rep #:[id number] : 1935 88 From: Natanael martinez MD PCP: Dr. John Noel DO Status:ADM WESTLEY Location: [place] [address] Subjective Subjective Doing well, feels better today. [...] Sl. Cloudy, Urine pH 6.0, Ur Specific [place] 1.020, Urine Protein 15 H, Urine Glucose [...] 77.7 H, Lymph % (Auto) 11.1 L, Ness % (Auto) 10.2 H, Eos % (Auto) [...] % (Auto) 64.8, Lymph % (Auto) 21.3, Ness % (Auto) 11.3 H, Eos % (Auto) 1.9, Baso % (Auto) 0.5, Absolute Neuts (auto)5.3, Absolute Lymphs (auto) 1.75, Nucleated RBC % 0 Radiography Diagnostic Testing: Radiology Impression Abdomen/Pelvis CT 11/04/23 16:40 IMPRESSION: Suspect bladder outlet obstruction with mild left ureteral dilatation and hydronephrosis, likely from the prostatic enlargement.. Electronically Signed: Leroy Barrett MD at 17:36 EDT , Chest X-Ray 09/04/23 16:52 IMPRESSION: No active disease. Electronically Signed: Leroy Barrett MD at 17:27 EDT , Physical Exam Narrative General: Alert, Oriented [...] kidney injury): (2) Atherosclerotic heart disease of kenaitze coronary artery without angina pectoris: QUALIFIERS: [place] vs. 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 pectoris; I25.10 - Atherosclerotic heart disease of kenaitze coronary artery without angina pectoris (3) Cardiomyopathy, [...] DVT: Heparin Charges/Coding Visit Charges Inpatient E&M: 29209 Subs Hosp L2 09/05/23 0901 <Electronically signed by Natanael Nowak MD> Cosigner Signature (if applicable): CC: ~ Signed [facility] Work Phone: [phone]) 965-213511-04-2023 History and physical note Author Manisha Varela [facility] September 04, 2023 6:33pm Note Date/Time September 04, 2023 6 :23pm [facility] Medical Records Department [address] [place] [address] H&P Exam - Hospitalist 09/04/23 1820 MR#: [id number] Acct: [id number] Name: RAJAT GUZMÁN Rep #:[id number] : 1935 88 From: Manisha Varela MD PCP: Dr. 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 Hehad a procedure [...] home, denies other complaints at this time. [facility] Medical History (Updated 09/04/23 @ 18:[address] Manisha Varela MD) Abnormal result of cardiovascular function study, unspecified Angina pectoris Atherosclerotic heart disease of kenaitze coronary artery without angina pectoris Benign prostatic [...] Sl. Cloudy, Urine pH 6.0, Ur Specific [place] 1.020, Urine Protein 15 H, Urine Glucose [...] 77.7 H, Lymph % (Auto) 11.1 L, Ness % (Auto) 10.2 H, Eos % (Auto) [...] Leroy Barrett MD at 17:27 EDT , Assessment & Plan Assessment/Plan (1) SINGH (acute kidney injury): (2) Atherosclerotic heart disease of kenaitze coronary artery without angina pectoris: QUALIFIERS: [place] vs. 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 pectoris; I25.10 - Atherosclerotic heart disease of kenaitze coronary artery without angina pectoris (3) Cardiomyopathy, [...] Varela MD Charges/Coding Visit Charges Inpatient E&M: 64962 Init Hosp L2 09/04/23 1833 <Electronically signed by Manihsa Varela MD> Cosigner Signature (if applicable): CC: Dr. John Noel DO; Dr. Manisha Varela MD~ Signed [facility] Work Phone: [phone]) 707-764811-04-2023 Discharge summary Author Murray Morgan [facility] September 04, 2023 6:24pm Note Date/Time September 04, 2023 3 :45pm [facility] Medical Records Department [address] [place] [address] Emergency Department Summary 09/04/23 MR#: [id number] Acct: [id number] Name: RAJAT GUZMÁN Rep #:[id number] : 1935 88 From: Murray Morgan MD PCP: Dr. John Noel DO Status:ADM WESTLEY Location: [place] [address] HPI <MORTEZA Staton - Last Filed: 09/04/23 18:05> History of Present Illness Chief Complaint: Complaint Narrative Narrative: Patient is a 88-year-old male with history of [place], CAD, cardiomyopathy who presents to the emergency [...] well however denies any fever or chills. PFSH <MORTEZA Staton - Last Filed: 09/04/23 18:05> [facility] Medical History (Updated 09/04/23 @ 18:05 by MORTEZA Staton) Abnormal result of cardiovascular function study, unspecified Angina pectoris Atherosclerotic heart disease of kenaitze coronary artery without angina pectoris Benign prostatic [...] Oxygen Delivery Method Room Air Room Air [facility] <Robbi HopkinsMORTEZA - Last Filed: 09/04/23 18:05> [facility] Lab Data Labs: Laboratory Results - last 24 hr 09/04/23 09/04/23 15:48 16:15 WBC 13.2 H RBC 3.84 L Hgb 11.3 L Hct 35.7 L MCV 93.0 MCH 29.4 MCHC 31.7 L RDW Std Deviation 49.5 H RDW Coeff of Arleen 14.6 Plt Count 208 MPV 11.7 Immature Gran % (Auto) 0.400 Neut % (Auto) 77.7 H Lymph % (Auto) 11.1 L Ness % (Auto) 10.2 H Eos % (Auto) [...] Sl. Cloudy Urine pH 6.0 Ur Specific [place] 1.020 Urine Protein 15 H Urine Glucose [...] 77.7 H Lymph % (Auto) 11.1 L Ness % (Auto) 10.2 H Eos % (Auto) [...] Sl. Cloudy Urine pH 6.0 Ur Specific [place] 1.020 Urine Protein 15 H Urine Glucose [...] 17:36 EDT Reading Location ID and State: [id number] / [employer] Tel , Service support , Chest X-Ray 09/04/23 16:52 IMPRESSION: No active disease. Electronically Signed: Leroy Barrett MD at 17:27 EDT , Management Discussion w/another healthcare provider: Hospitalist and [facility] Floor (Dr. Barth) Discharge Plan Triage Chief Complaint: Complaint ED Midlevel Provider: Robbi Hopkins ED Provider: Murray Morgan Dx/Rx/DC Orders Clinical Impression: SINGH (acute kidney injury), Episode of generalized weakness, UTI (urinary tract infection), Acute dehydration, Acute metabolic encephalopathy Primary Care Provider: John Noel What to do if you have Problems For any increased pain, shortness of breath, bleeding, nausea or vomiting, chest pain, or any unexpected problems, contact your Primary Care Provider. Call [facility] ([phone]) or report to the closest Emergency Room. Call 911 if necessary. 09/04/231823 <Electronically signed by Murray Morgan MD> Cosigner Signature (if applicable): 09/04/231804 <Electronically signed by Robbi Hopkins EMPLOYEE BENEFITS COORDINATOR-C> CC: Dr. John Noel, DO ~ Signed [facility] Work Phone: 1([phone]) 881-368611-04-2023 Discharge summary Author Murray Morgan [facility] September 04, 2023 6:24pm Note Date/Time September 04, 2023 3 :45pm [facility] Medical Records Department [address] [place] [address] Emergency Department Summary 09/04/23 MR#: [id number] Acct: [id number] Name: RAJAT GUZMÁN Rep #:[id number] : 1935 88 From: Murray Morgan MD PCP: Dr. John Noel, DO Status:ADM [facility]LEY Location: [address] <MORTEZA Staton - Last Filed: 09/04/23 18:05> History of Present Illness Chief Complaint: Complaint Narrative Narrative: Patient is a 88-year-old male with history of [place], CAD, cardiomyopathy who presents to the emergency [...] well however denies any fever or chills. [facility] <MORTEZA Staton - Last Filed: 09/04/23 18:05> [facility] Medical History (Updated 09/04/23 @ 18:05 by MORTEZA Staton) Abnormal result of cardiovascular function study, unspecified Angina pectoris Atherosclerotic heart disease of kenaitze coronary artery without angina pectoris Benign prostatic [...] <MORTEZA Staton - Last Filed: 09/04/23 18:05> [facility] Lab Data Labs: Laboratory Results - last 24 hr 09/04/23 09/04/23 15:48 16:15 WBC 13.2 H RBC 3.84 L Hgb 11.3 L Hct 35.7 L MCV 93.0 MCH 29.4 MCHC 31.7 L RDW Std Deviation 49.5 H RDW Coeff of Arleen 14.6 Plt Count 208 MPV 11.7 Immature Gran % (Auto) 0.400 Neut % (Auto) 77.7 H Lymph % (Auto) 11.1 L Ness % (Auto) 10.2 H Eos % (Auto) [...] Sl. Cloudy Urine pH 6.0 Ur Specific [place] 1.020 Urine Protein 15 H Urine Glucose [...] Reading Location ID and State: [id number] / [employer] Tel , Service support , Chest X-Ray 09/04/23 16:52 IMPRESSION: No active disease. Electronically Signed: Leroy Barrett MD at 17:27 EDT Reading Location ID and State: [id number] / [employer] Tel , Service support , Treatment and [...] Morgan MD - Last Filed: 09/04/23 18:24> [facility] Narrative Medical decision making narrative: Dr. Morgan: [...] 77.7 H Lymph % (Auto) 11.1 L Ness % (Auto) 10.2 H Eos % (Auto) [...] Sl. Cloudy Urine pH 6.0 Ur Specific [place] 1.020 Urine Protein 15 H Urine Glucose [...] Management Discussion w/another healthcare provider: Hospitalist and [facility] Floor (Dr. Barth) Discharge Plan Triage Chief Complaint: Complaint ED Midlevel Provider: Robbi Hopkins ED Provider: Murray Morgan Dx/Rx/DC Orders Clinical Impression: SINGH (acute kidney injury), Episode of generalized weakness, UTI (urinary tract infection), Acute dehydration, Acute metabolic encephalopathy Primary Care Provider: John Noel What to do if you have Problems For any increased pain, shortness of breath, bleeding, nausea or vomiting, chest pain, or any unexpected problems, contact your Primary Care Provider. Call [facility] ([phone]) or report to the closest Emergency Room. Call 911 if necessary. 09/04/231823 <Electronically signed by Murray Morgan MD> Cosigner Signature (if applicable): 09/04/23 180 <Electronically signed by Robbi Hopkins EMPLOYEE BENEFITS COORDINATOR-C> CC: Dr. John Noel, DO ~ Signed [facility] Work Phone: 1(708) 341-416102-26-[address] Morgan [facility] December 27, 2022 11:52pm Note Date/Time December 27, 2022 9:33pm [facility] Medical Records Department [address] [place] [address] Emergency Department Summary 12/27/22 MR#: [id number] Acct: [id number] Name: RAJAT GUZMÁN Rep #:[id number] : 1935 87 From: Murray Morgan MD [...] with a mass over the vasectomysite. PFSH [facility] Medical History Abnormal result of cardiovascular function study, unspecified Angina pectoris Atherosclerotic heart disease of kenaitze coronary artery without angina pectoris Cancer Cardiology [...] they are supposed to start seeing Dr. Noel. I discussed the patient with Dr. Noel for close follow-up in the next 2 [...] (Auto) 69.5 Lymph % (Auto) 16.0 L Ness % (Auto) 12.6 H Eos % (Auto) [...] Sl. Cloudy Urine pH 7.0 Ur Specific [place] 1.010 Urine Protein 15 H Urine Glucose [...] Primary Care Provider: Shailesh Mancini Referrals: John Noel DO [Med Staff - [employer]] - 2 Days Shailesh Mancini MD [Primary Care Provider] - Activity Restrictions/Additional Instructions: Follow-up with Dr. Noel in the next 2 to 3 days. Return to the emergency department with fever, increased pain, new or worsening symptoms. Disposition Disposition: Home, Self Care What to do if you have Problems For any increased pain, shortness of breath, bleeding, nausea or vomiting, chestpain, or any unexpected problems, contact your Primary Care Provider. Call [facility] ([phone]) or report to the closest Emergency Room. Call 911 if necessary. 12/27/222351 <Electronically signed by Murray Morgan MD> Cosigner Signature (if applicable): CC: Dr. John Noel DO; Dr. Shailesh Mancini MD ~ Signed [facility] Work Phone: 1(826) 987-536102-26-2023 Hospital Discharge instructions Additional Instructions Follow-up with Dr. Noel in the next 2 to 3 days. Return to the emergency department with fever, increased pain, new or worsening symptoms.[facility] Work Phone: [phone]) 660-293006-12-2017 Fall risk gyozafvmei0679/06/12[facility] Work Phone: Discharge summary Author Manisha Varela [facility] September 06, 2023 3:14pm Note Date/Time September 06, 2023 3 :14pm [facility] Medical Records Department [address] [place] [address] Discharge Summary 09/06/23 1513 MR#: [id number] Acct: [id number] Name: RAJAT GUZMÁN Rep #:[id number] : 1935 88 From: Manisha Varela MD PCP: Dr. John Noel, DO Status:ADM [place]STLEY Location: [place] [address] Providers Date of Admission: 09/04/23 Date of Discharge: 09/06/23 Primary Care Physician: Dr. John Noel, Reason For Visit: UTI, SINGH, GENERAL WEAKNESS Diagnosis Discharge Diagnosis (1) SINGH (acute kidney injury): Status: Acute Code(s): N17.9 - Acute kidney failure, unspecified (2) Atherosclerotic heart disease of kenaitze coronary artery without angina pectoris: Status: Chronic Code(s): I25.10 - Atherosclerotic heart disease of kenaitze coronary artery without angina pectoris Qualifiers: [place] vs. transplanted heart: kenaitze heart Qualified Code(s): I25.10 -Atherosclerotic heart disease of kenaitze coronary artery without angina pectoris;I25.10 - Atherosclerotic heart disease of kenaitze coronary artery without angina pectoris; I25.10 - Atherosclerotic heart disease of kenaitze coronary artery without angina pectoris (3) Cardiomyopathy, [...] 81 mg PO DAILY heart health 03/05/16 nitroglycerin 0.4 mg sublingual tablet [...] with dual AICD, BPH, hypertension presented to [facility] 09/04/2023 with generalized weakness. Hehad a procedure [...] Provider: Manisha Varela Primary Care Provider: John Noel Consulting Providers: Manisha Varela; Natanael Nowak Instructions [...] schedule hospital follow-up appointment upon discharge.) John Noel DO [Primary Care Provider] - Within 1 Week Disposition Disposition (needs filled in before D/C Order can be placed): Home, Self Care Charges/Coding Visit Charges Inpatient E&M: 52836 Disch Hosp >30min 09/06/23 1514 <Electronically signed by Manisha Varela MD> Cosigner Signature (if applicable): CC: Dr. John Noel DO; Dr. Manisha Varela MD~ Signed [facility] Work Phone: Evaluation note* Diagnosis Onset Date Resolution Status Cardiomyopathy, ischemic chr onic Chronic systolic congestive heart failure chronic Dual ICD (implantable 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 History of placement of internal cardiac defibrillator [facility] Work Phone: Evaluation note* Diagnosis Onset Date Resolution Status Cardiomyopathy, ischemic chr onic Chronic systolic congestive heart failure chronic Dual ICD (implantable 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 History of placement of inte rnal cardiac defibrillator chronic Atherosclerotic heart diseas e of kenaitze coronary artery without angina pectoris chronic Cardiomyopathy, ischemic chr onic Dyspnea chronic Essential hypertension chron ic History of placement of inte rnal cardiac defibrillator chronic Pure hypercholesterolemia ch alida Stented coronary artery December, [facility] Work Phone: Evaluation note* Diagnosis Onset Date Resolution Status Atherosclerotic heart diseas e of kenaitze coronary artery without angina pectoris chronic Cardiomyopathy, ischemic chr onic Dyspnea chronic Essential hypertension chron ic History of placement of inte rnal cardiac defibrillator chronic Pure hypercholesterolemia ch alida Stented coronary artery December, [facility] Cardiomyopathy, ischemic chr onic Chronic systolic congestive heart failure chronic Dual ICD (implantable 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 History of placement of inte rnal cardiac defibrillator [facility] Work Phone: Evaluation note* Diagnosis Onset Date Resolution Status Cardiomyopathy, ischemic chr onic Chronic systolic congestive heart failure chronic Dual ICD (implantable 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 Atherosclerotic heart diseas e of kenaitze coronary artery without angina pectoris chronic Cardiomyopathy, ischemic chr onic Essential hypertension chron ic History of placement of inte rnal cardiac defibrillator chronic Pure hypercholesterolemia alida Stented coronary artery December, [facility] Work Phone: Evaluation note* Diagnosis Onset Date Resolution Status Dual ICD (implantable 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 History of placement of internal cardiac defibrillator [facility] Work Phone: Evaluation note* Diagnosis Onset Date Resolution Status Cardiomyopathy, ischemic chr onic Chronic systolic congestive heart failure chronic Dual ICD (implantable 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 Cardiomyopathy, ischemic chr onic Chronic systolic congestive heart failure chronic Coronary artery disease external grinder elizabeth Dual ICD (implantable 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 Dyslipidemia chronic Essential hypertension chron ic Presence of stent in coronary artery December, chronic [facility] Work Phone: Evaluation noteNo assessment information available [facility] Work Phone: Evaluation note* Diagnosis Onset Date Resolution Status Acute dehydration acute Acute metabolic encephalopathy acute SINGH (acute kidney injury) ac [place] Episode of generalized weakness acute Urinary retention acute UTI (urinary tract infection) acute Atherosclerotic heart diseas e of kenaitze coronary artery without angina pectoris chronic Cardiomyopathy, 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 [facility] Work Phone: Evaluation note* Diagnosis Onset Date Resolution Status Urinary retention acute UTI (urinary tract infection) acute Atherosclerotic heart diseas e of kenaitze coronary artery without angina pectoris chronic Cardiomyopathy, 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 Acute dehydration resolved Acute metabolic encephalopathy resolved SINGH (acute kidney injury) re solved Episode of generalized weakness resolved [facility] Work Phone: Evaluation note* Diagnosis Onset Date Resolution Status Urinary retention acute UTI (urinary tract infection) acute Atherosclerotic heart diseas e of kenaitze coronary artery without angina pectoris chronic Cardiomyopathy, [...] Presence of stent in coronary artery December, [facility] Work Phone: Evaluation note* Diagnosis Benign prostatic hyperplasia with lower urinary tract symptoms, symptom details unspecified Retention of urine Unspecified retention of urine Nocturia Abnormal digital rectal exam documented in this encounter [facility] Work Phone: Evaluation note* Diagnosis Incomplete bladder emptying- Primary documented in this encounter [facility] Work Phone: Evaluation note* Diagnosis Elevated PSA- Primary Elevated prostate specific antigen (PSA) documented in this encounter [facility] Work Phone: Evaluation note* Diagnosis Elevated PSA Elevated prostate specific antigen (PSA) Abnormal digital rectal exam Malignant neoplasm of prostate (Multi) Malignant neoplasm of prostate Retention of urine Unspecified retention of urine documented in this encounter [facility] Work Phone: [phone] note* Diagnosis Malignant neoplasm of prostate (Multi) Malignant neoplasm of prostate documented in this encounter [facility] Work Phone: [phone] note* Diagnosis Malignant neoplasm of prostate (Multi) Malignant neoplasm of prostate Abnormal digital rectal exam Elevated PSA Elevated prostate specific antigen (PSA) Retention of urine Unspecified retention of urine Urinary retention- Primary Unspecified retention of urine documented in this encounter [facility] Work Phone: [phone] note* Diagnosis Urinary retention- Primary Unspecified retention of urine Urinary retention Unspecified retention of urine documented in this encounter [facility] Work Phone: [phone] note* Diagnosis Urinary retention Unspecified retention of urine documented in this encounter [facility] Work Phone: [phone] note* Diagnosis Urinary retention Unspecified retention of urine Bladder spasm Hypertonicity of bladder Malignant neoplasm of prostate (Multi) Malignant neoplasm of prostate documented in this encounter [facility] Work Phone: [phone] note* Diagnosis Bladder spasms- Primary Hypertonicity of bladder Urinary retention Unspecified retention of urine documented in this encounter [facility] Work Phone: [phone] note* Diagnosis Urinary retention Unspecified retention of urine documented in this encounter [facility] Work Phone: [phone] note* Diagnosis Urinary retention Unspecified retention of urine documented in this encounter [facility] Work Phone: [phone] note* Diagnosis Prostate cancer (Multi)- Primary Malignant neoplasm of prostate Urinary retention Unspecified retention of urine Bladder spasm Hypertonicity of bladder Malignant neoplasm of prostate (Multi) Malignant neoplasm of prostate Urinary retention Unspecified retention of urine documented in this encounter [facility] Work Phone: [phone] and physical note Author Manisha Varela [facility] September 04, 2023 6:33pm Note Date/Time September 04, 2023 6 :23pm [facility] Medical Records Department [address] [place] [address] H&P Exam - Hospitalist 09/04/23 1820 MR#: [id number] Acct: [id number] Name: RAJAT GUZMÁN Rep #:[id number] : 1935 88 From: Manisha Varela MD PCP: Dr. John Noel, DO Status:ADM [place] Location: [address] HPI - General General Date of Admission: 09/04/23 Date of Service: 09/04/23 Chief Complaint: Gen weakness, abd pain, confusion HPI Narrative RAJAT GUZMÁN, is a 88-year-old male history of coronary artery disease, heart failure with reduced ejection fraction with dual AICD, BPH, hypertension presented to [facility] 09/04/2023 with generalized weakness. Hehad a procedure [...] home, denies other complaints at this time. [facility] Medical History (Updated 09/04/23 @ 18:[address] Manisha Varela MD) Abnormal result of cardiovascular function study, unspecified Angina pectoris Atherosclerotic heart disease of kenaitze coronary artery without angina pectoris Benign prostatic [...] Sl. Cloudy, Urine pH 6.0, Ur Specific [place] 1.020, Urine Protein 15 H, Urine Glucose [...] 77.7 H, Lymph % (Auto) 11.1 L, Ness % (Auto) 10.2 H, Eos % (Auto) [...] Reading Location ID and State: [id number] / [employer] Tel , Service support , Chest X-Ray 09/04/23 16:52 IMPRESSION: No active disease. Electronically Signed: Leroy Barrett MD at 17:27 EDT Reading Location ID and State: [id number] / [employer] Tel , Service support , Assessment & Plan Assessment/Plan (1) SINGH (acute kidney injury): (2) Atherosclerotic heart disease of kenaitze coronary artery without angina pectoris: QUALIFIERS: [place] vs. 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 pectoris; I25.10 - Atherosclerotic heart disease of kenaitze coronary artery without angina pectoris (3) Cardiomyopathy, [...] Varela MD Charges/Coding Visit Charges Inpatient E&M: 87889 Init Hosp L2 09/04/23 1830 <Electronically signed by Manisha Varela MD> Cosigner Signature (if applicable): CC: Dr. John Noel DO; Dr. Manisha Varela MD~ Signed [facility] Work Phone: Hospital Discharge instructions Additional Instructions Implant Used?: [facility] Work Phone: Progress note Author Cheryl Ochoa [facility] Note Date/Time April 29, 2025 12:5 7pm [facility] Medical Records Department [address] [place] [id number] Progress Note - Hospitalist 04/29/25 1251 MR#: [id number] Acct: [id number] Name: RAJAT GUZMÁN Rep #:[id number] : 1935 89 From: Cheryl Ochoa DO PCP: Dr. John Noel DO Status:ADM IN Location: [place] [address] Hospitalist Note Mr. Guzmán is an 89-year-old white male who presented to the emergency department at [facility] on 04/27/2025 with a chief complaint of poor p.o. intake. He was found to have a UTI and placed on Keflex at the time of discharge but has been having nausea and vomiting with dry heaves and not able to take his medication so he represented to the emergency department on 04/08/2025 at which time he was admitted, placed on IV fluids, IV antibiotics, andantiemetics. Patient had previously had ESBL producing organism so he was placed on broad-spectrum antibiotics culture was sent. Culture was pending at the time that the patient left. On 04/29/2025 we tried to get him to take in different types of food and liquid. We try to tailor the diet to what his legs were and the volume that he likes to eat however the patient declined food. He was adamant that he wanted to go home. We tried to discuss with him the potential of resistant organisms in his urine that oral antibiotics that were prescribed on the would not cover and the fact that we would like to make sure he eats and drinks well before he goes home so he tolerates his oral antibiotics however the patient would not have any of it and he wanted to leave AGAINST MEDICAL ADVICE. He stated we were killing him here.. I did review that the antibiotic was sent to [facility]. He has Keflex 500 mg p.o. twice daily for 14 days that was prescribed by the emergency department physician. He states that he will just follow-up with his primary care physician tomorrow. Mary Beth tried to get him to stay in the hospital however he was adamant and he left after signing out AGAINST MEDICAL ADVICE. Patient's risk for readmission is extremely high. 04/29/25 1257 <Electronically signed by Cheryl Ochoa DO> Cosigner Signature (if applicable): CC: ~ Signed [facility] Work Phone: Reezwr for referral (narrative)No reason for referral information availableWWilson Street [facility] Work Phone: Reason for visit Narrative* Auth/Cert Specialty Diagnoses / Procedures Referred By Krys t Referred To Contact Diagnoses Urinary retention Urinary retention [R33.9] Procedures SC CYSTOSTOMY CYSTOTOMY W/DRAINAGE Cystotomy Suprapubic Asmita Zambrano MD [address] [place] [address] [address] Referral ID Status Reason Start Date Expiration Date Visits Re quested Visits Authorized [id number] [address] [facility] Work Phone: reason for visit Narrative* /Urology (Routine) - Authorized Specialty Diagnoses / Procedures Referred By Contac t Referred To Contact Urology Diagnoses Other retention of urine Procedures SC CHANGE CYSTOSTOMY [facility] [address] [facility] [address] [place] [address] Phone: tel: fax: Asmita Zambrano MD [address] [place] [address] Phone: tel: fax: Referral ID Status Reason Start Date Expiration Date V isits Requested Visits Authorized [id number] Authorized 11/28/2024 11/28/[address] [facility] Work Phone: reason for visit Narrative* Consultation (Routine) - Authorized Specialty Diagnoses / Procedures Referred By Krys rangel Referred To Contact Urology Diagnoses Urinary retention Procedures Follow Up In Urology Jian Caro MD M[facility] [address] [place] [address] Phone: tel: fax: Referral ID Status Reason Start Date Expiration Date V isits Requested Visits Authorized [id number] Authorized 04/09/2025 04/09/[address] 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 Advance Directive(s) 06/10/2016 3:34 PM Advance Directive Response Recorded Date/ Time Advance Directives Yes September 6:49pm Living Will No November 15 7:07pm Power of Dialysis Social Worker No November 15, 2020 7:07pm Advance Directive Response Recorded Date/ Time Advance Directives Yes September 5:49pm Living Will No November 15 6:07pm Power of Dialysis Social Worker No November 15, 2020 6:07pm Advance Directive Response Recorded Date/ Time Advance Directives Yes September 5:49pm Living Will No [place] 16th, 2 022 1:05pm Power of Dialysis Social Worker No October 16, 2022 1:05pm Advance Directive Response Recorded Date/ Time Name of Medical Power of Dialysis Social Worker unknown December 27, 2022 9:53pm Advance Directives Yes September 5:49pm Living Will Yes December 27, 2 023 9:53pm Power of Dialysis Social Worker Yes December 27, 2022 9:53pm Advance Directive Response Recorded Date/ Time Name of Medical Power of Dialysis Social Worker unknown December 27, 2022 10:53pm Name of Medical Power of Dialysis Social Worker UNKNOWN January 06, 2023 10:21am Advance Directives Yes September 6:49pm Living Will No January 06, 2023 10:21am Power of Dialysis Social Worker Yes January 06 10:21am Advance Directive Response Recorded Date/ Time Advance Directives Yes September 6:49pm Living Will No January 06, 2023 10:21am Power of Dialysis Social Worker Yes January 06 10:21am Advance Directive Response Recorded Date/ Time Advance Directives Yes September 6:49pm Living Will No September 04 4:38pm Power of Dialysis Social Worker No September 04, 2023 4:38pm Advance Directive Response Recorded Date/ Time Advance Directives Yes September 5:49pm Living Will No September 04 7:17pm Power of Dialysis Social Worker No September 04, 2023 7:17pm Advance Directive Response Recorded Date/ Time Advance Directives Yes September 5:49pm Living Will No October 20 023 4:11pm Power of Dialysis Social Worker No October 20, 2023 4:11pm Advance Directive Response Recorded Date/ Time Advance Directives Yes September 5:49pm Living Will No October 11, 2 023 1:45pm Power of Dialysis Social Worker No October 11, 2023 1:45pm Date Activated [...] Do you have a Healthcare Power of Dialysis Social Worker? Yes March 30, 2024 3:36am Living Will Yes December 16 4:11pm Do you have a Healthcare Power of Dialysis Social Worker? Yes December 16, 2024 4:11pm Name of Medical Power of Dialysis Social Worker boogie bravo and michelle campos December 16, 2024 4:11pm Advance Directives Yes September 6:49pm Advance Directive Response Recorded Date/ Time Do you have a Healthcare Power of Dialysis Social Worker? No April 27, 2025 8:28pm Advance Directives Yes September 6:49pm Advance Directive Response Recorded Date/ Time Do you have a Healthcare Power of Dialysis Social Worker? Yes April 28, 2025 4:01pm Do you have a Healthcare Power of Dialysis Social Worker? No April 27, 2025 8:28pm Advance Directives Yes September 6:49pm Advance Directive Response Recorded Date/ Time Do you have a Healthcare Power of Dialysis Social Worker? Yes April 28, 2025 8:32pm Name of Medical Power of Dialysis Social Worker BEBO HDZ April 28, 2025 8:32pm Do you have a Healthcare Power of Dialysis Social Worker? 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, ischemic Dyspnea Essential hypertension History of placement of internal cardiac defibrillator Pure hypercholesterolemia Stented coronary artery Chief Complaint 6 M FU 3 mos remote ICD f/u Dizziness, on Entresto LOraLorson Reason for Visit Atherosclerotic hear t disease of kenaitze coronary artery without angina pectoris Cardiomyopathy, ischemic [...] cardioverter-defibrillator) in place Atherosclerotic heart disease of ken[place]ze coronary artery without angina pectoris Cardiomyopathy, ischemic Essential hypertension History of placement of internal cardiac defibrillator Pure hypercholesterolemia Stented coronary artery Chief Complaint 3 mos remote ICD f/u 1 Y FU cysto with dilation of urethral stricture Reason for Visit Cardiomyopathy, isch emic Chronic systolic congestive heart failure 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 Lors on E ORDERS INT LABS PSA UTI, SINGH, GENERAL WEAKNESS UTI, SINGH, GENERAL WEAKNESS UTI, SINGH, GENERAL WEAKNESS Reason for Visit Urinary retention UTI (urinary tract infection) Atherosclerotic heart disease of [place] coronary artery without angina pectoris Cardiomyopathy, ischemic [...] (urinary tract infection) Atherosclerotic heart disease of [place] coronary artery without angina pectoris Cardiomyopathy, ischemic [...] (urinary tract infection) Atherosclerotic heart disease of [place] coronary artery without angina pectoris Cardiomyopathy, ischemic [...] (urinary tract infection) Atherosclerotic heart disease of [place] coronary artery without angina pectoris Cardiomyopathy, 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 Acute dehydration Acute metabolic encephalopathy SINGH (acute kidney injury) Episode of generalized weakness Chief Complaint Admit Date 6 m fu PREV AR PT WANTS TO SWITCH Cornelior y 2024 10:54am Pacer Check Remote December 01, 2024 4 :00am FLU December 16, 2024 2:57pm Reason for Visit Admit Date Cardiomyopathy, ischemic November 10, 2 025 10:54am Dual ICD (implantable cardioverter-defib rillator) in place November 10, 2024 10:54am Dyslipidemia November 10, 2024 1 0:54am Essential hypertension November 10 10:54am Presence of stent in coronary artery Capo gonzalez 2024 10:54am Chief Complaint Admit Date 4 M [...] in coronary artery March 12, 2025 2:04pm Chief Complaint Admit Date 4 M FU March 12, 2025 2:04p m N/V April 27, 2025 8:05 pm NAUSEA/VOMITING/UTI April 28, 2025 6:32 pm Reason for Visit Admit Date Cardiomyopathy, ischemic March 12, 2025 2:04pm Dual ICD (implantable cardioverter-defib rillator) in place March 12, 2025 2:04pm Dyslipidemia March 12, 2025 2:04p m Essential hypertension March 12, 2025 2: 04pm Presence of stent in coronary artery March 12, 2025 2:04pm Anemia April 28, 2025 6:32 pm Failure of outpatient treatment April 6:32pm History of CAD (coronary artery disease) April 28, 2025 6:32pm Leukocytosis April 28, 2025 6:32 pm Nausea & vomiting April 28, 2025 6:32 pm Urinary tract infection April 28, 2025 6:32pm Chief Complaint Admit Date 4 M FU March 12, 2025 2:04p m N/V April 27, 2025 8:05 pm NAUSEA/VOMITING/UTI April 29, 2025 7:15 am NAUSEA/VOMITING/UTI April 29, 2025 12:5 1pm Reason for Visit Admit Date Cardiomyopathy, ischemic March 12, 2025 2:04pm Dual ICD (implantable cardioverter-defib rillator) in place March 12, 2025 2:04pm Dyslipidemia March 12, 2025 2:04p m Essential hypertension March 12, 2025 2: 04pm Presence of stent in coronary artery March 12, 2025 2:04pm Acute UTI April 29, 2025 7:15 am Anemia April 29, 2025 7:15 am Failure of outpatient treatment April 7:15am History of CAD (coronary artery disease) April 29, 2025 7:15am Leukocytosis April 29, 2025 7:15 am Nausea & vomiting April 29, 2025 7:15 am Urinary tract infection April 29, 2025 7:15am Chief Complaint Admit Date Pacer Check Remote March 02, 2025 4:00am 4 M FU March 12, 2025 2:04p m N/V April 27, 2025 8:05 pm NAUSEA/VOMITING/UTI April 29, 2025 7:15 am NAUSEA/VOMITING/UTI April 29, 2025 12:5 1pm Chief Complaint Admit Date Pacer Check Remote March 02, 2025 4:00am 4 M FU March 12, 2025 2:04p m N/V April 27, 2025 8:05 pm NAUSEA/VOMITING/UTI April 29, 2025 7:15 am NAUSEA/VOMITING/UTI April 29, 2025 12:5 1pm XRAY ABDOMEN May 09, 2025 12:09 pm Reason for Visit Admit Date Cardiomyopathy, ischemic March 12, 2025 2:04pm Dual ICD (implantable cardioverter-defib rillator) in place March 12, 2025 2:04pm Dyslipidemia March 12, 2025 2:04p m Essential hypertension March 12, 2025 2: 04pm Presence of stent in coronary artery March 12, 2025 2:04pm Anemia April 29, 2025 7:15 am Failure of outpatient treatment April 7:15am History of CAD (coronary artery disease) April 29, 2025 7:15am Leukocytosis April 29, 2025 7:15 am Nausea & vomiting April 29, 2025 7:15 am Urinary tract infection April 29, 2025 7:15am Acute UTI April 29, 2025 7:15 am Family History No Family History Records Found [...] pelvis w IV contrast Asmita Zambrano MD [address] [place], [place] [id number] Referral ID Status Reason Start Date Expiration Date Visits Requested Visits Authorized [id number] Pending Review Perform Procedure 04/26/2024 04/26/2025 1 1 Specialty Diagnoses / Procedures Referred By Krys rnagel Referred To Contact Radiology Diagnoses Malignant neoplasm of prostate (Multi) Procedures CT abdomen pelvis w IV contrast Asmita Zambrano MD [address] [place] [id number] Referral ID Status Reason Start Date Expiration Date Visits Requested Visits Authorized [id number] Pending Review Perform Procedure 06/28/2024 06/28/2025 1 1 Referral ID Status Reason Start Date Expiration Date Visits Requested Visits Authorized [id number] Authorized Perform Procedure 06/28/2024 06/28/2025 1 1 Specialty Diagnoses / Procedures Referred By Krys rangel Referred To Contact Diagnoses Malignant neoplasm of prostate (Multi) Asmita Zambrano MD [address] [place], [place] [id number] Referral ID Status Reason Start Date Expiration Date V isits Requested Visits Authorized [id number] Pending Review 07/12/2024 07/12/2025 1 1 Additional Source Comments Source Comments (unrecognize d section and content) In the event this informatio n is protected by the Federal Confidentiality of Alcohol and Drug Abuse Patient Records regulations: The Federal rules restrict any use of the information to criminally investigate or prosecute any alcohol or drug abuse patient.[facility] Reason for Visit (unrecogniz ed section and content) Reason Onset Date Comments Refill Request 10/18/2011 Reason Comments CYSTOSCOPY Reason Comments PROSTATE BIOPSY Reason Comments TRUS RESULTS Specialty Diagnoses / Procedures Referred By Krys rangel Referred To Contact Radiology Diagnoses Malignant neoplasm of prostate (Multi) Procedures CT abdomen pelvis w IV contrast Asmita Zambrano MD [address] [place] [address] Referral ID Status Reason Start Date Expiration Date Visits Requested Visits Authorized [id number] Authorized Perform Procedure 06/28/2024 06/28/2025 1 1 Reason Comments LUPRON AND CT RESULTS Specialty Diagnoses / Procedures Referred By Krys rangel Referred To Contact Diagnoses Malignant neoplasm of prostate (Multi) Asmita Zambrano MD [address] [place] [id number] Referral ID Status Reason Start Date Expiration Date V isits Requested Visits Authorized [id number] Pending Review 07/12/2024 07/12/2025 1 1 Reason Comments ROD CHANGE Specialty Diagnoses / Procedures Referred By Krys rangel Referred To Contact Urology Diagnoses Retention of urine, unspecified Procedures SC CHANGE CYSTOSTOMY TUBE SIMPLE [address] [address] Phone: tel: fax: Asmita Zambrano MD [address] [place] [id number] Phone: tel: fax: Referral ID Status Reason Start Date Expiration Date V isits Requested Visits Authorized [id number] Authorized 12/27/2024 12/27/2025 1 1 Goals (unrecognized [...] Mancini MD Family Provider Active Dr. John Noel DO Primary Care Provider Active Team Status: Inactive Member Role Status Dates Sloane Noel DO Primary Care Provider Active Dr. Timoteo Mullins MD Attending Provider, Referring Pro vider Active Team Status: Inactive Member Role Status Dates Dr. John Noel DO Primary Care Provider, Referrin g Provider Active Dr. Ana Paula Harrington MD Attending Provider Active Team Status: Active Member Role Status Dates Dr. John Noel DO Primary Care Provider Active Abril Daly Attending Provider Active Team Status: Inactive Member Role Status Dates Dr. Shailesh Mancini MD Primary Care Provider Active Murray Morgan MD Attending Provider, Emergency Provid er Active Team Status: Inactive Member Role Status Dates Dr. Henok Villarreal MD Attending Provider, Emergency Provi stevie Active Dr. John Noel DO Primary Care Provider Active Team Status: Inactive Member Role Status Dates Dr. John Sadie , DO Primary Care Prov ider, Attending Provider, Referring Provider Active Team Status: Inactive Member Role Status Dates Dr. John Noel DO Primary Care Provider, Referrin g Provider Active Alexia Hendricks Attending Provider Active Team Status: Inactive Member Role Status Dates Dr. John Noel DO Primary Care Provider Active Cynthia Bowen EMPLOYEE BENEFITS COORDINATOR, EMPLOYEE BENEFITS COORDINATOR-C Attending Provider, Referring P alana Active Team Status: Active Member Role Status Dates Dr. John Noel DO Primary Care Provider Active Dr. Faisal Barth MD Attending Provider, Referr ing Provider Active Team Status: Active Member Role Status Dates Dr. John Noel DO Primary Care Provider Active Murray Morgan MD Emergency Provider Active Dr. Manisha Varela MD Admit Provider, Attending Provid er Active Team Status: Active Member Role Status Dates Dr. John Noel DO Primary Care Provider Active Murray Morgan MD Emergency Provider Active Dr. Manisha Varela MD Admit Provider, Other Provider A ctive Dr. Natanael Nowak MD Attending Provider, Other Provider Active Team Status: Inactive Member Role Status Dates Dr. John Noel DO Primary Care Provider Active Dr. Faisal Barth MD Attending Provider, Referr ing Provider Active Team Status: Active Member Role Status Dates Dr. John Noel DO Primary Care Provider Active Murray Morgan MD Emergency Provider Active Dr. Manisha Varela MD Admit Provider, Other Provider A ctive Dr. Natanael Nowak MD Attending Provider Active Team Status: Active Member Role Status Dates Dr. John Noel DO Primary Care Provider Active Murray Morgan MD Emergency Provider Active Dr. Manisha Varela MD Admit Provider, At tending Provider, Other Provider Active Dr. Natanael Nowak MD Other Provider Active Team Status: Inactive Member Role Status Dates Dr. John Noel DO Primary Care Provider Active Murray Morgan MD Emergency Provider Active Dr. Manisha Varela MD Admit Provider, At tending Provider, Other Provider Active Dr. Natanael Nowak MD Other Provider Active Team Status: Inactive Member Role Status Dates Dr. John Noel DO Primary Care Provider, Attendin g Provider Active Team Status: Active Member Role Status Dates Dr. John Noel DO Primary Care Provider Active Dr. Nika Gan MD Attending Provider Activ e Dr. Zacarias Valdes MD Referring Provider Active Team Status: Inactive Member Role Status Dates Dr. John Noel , DO Primary Care Provider Active Dr. Timoteo Mullins MD Attending Provider Active Team Status: Inactive Member Role Status Dates Dr. John Noel DO Primary Care Provider Active Dr. Faisal Barth MD Admit Provid er, Attending Provider, Referring Provider Active Team Status: Inactive Member Role Status Dates Dr. John Noel , DO Primary Care Provider Active Dr. Zacarias Valdes MD Attending Provider, Referring Prov ider Active Team Status: Inactive Member Role Status Dates Dr. John Noel DO Primary Care Provider, Referrin g Provider Active Cynthia Bowen EMPLOYEE BENEFITS COORDINATOR, EMPLOYEE BENEFITS COORDINATOR-C Attending Provider Active Team Status: Inactive Member Role Status Dates Dr. John Noel , DO Primary Care Provider Active Dr. Timoteo Mullins MD Attending Provider, Referring Pro vider Active Editor News Relationship Specialty Start Date End Date John NoelDO [address] [place] [phone] PCP - General Family Medicine 03/14/24 Editor News Relationship Specialty Start Date End Date John NoelDO [address] [place] [phone] PCP - General Family Medicine 03/14/24 Editor News Relationship Specialty Start Date End Date John NoelDO [address] [place] [phone] PCP - General Family Medicine 03/14/24 Editor News Relationship Specialty Start Date End Date John NoelDO [address] [place] [phone] PCP - General Family Medicine 03/14/24 Editor News Relationship Specialty Start Date End Date John Noel DO [address] [place] [phone] PCP - General Family Medicine 03/14/24 Editor News Relationship Specialty Start Date End Date John Noel DO [address] [place] [phone] PCP - General Family Medicine 03/14/24 Editor News Relationship Specialty Start Date End Date John Noel DO [address] [place] [phone] PCP - General Family Medicine 03/14/24 Editor News Relationship Specialty Start Date End Date John Noel DO [address] [place] [phone] PCP - General Family Medicine 03/14/24 Editor News Relationship Specialty Start Date End Date John Noel DO [address] [place] [phone] PCP - General Family Medicine 03/14/24 Editor News Relationship Specialty Start Date End Date John Noel DO [address] [place] [phone] PCP - General Family Medicine 03/14/24 Editor News Relationship Specialty Start Date End Date John Noel DO [address] [place] [phone] PCP - General Family Medicine 03/14/24 Team Status: Active Member Role Status Dates Dr. John Noel DO Primary Care Provider Active Team Status: Inactive Member Role Status Dates Dr. John Noel DO Primary Care Provider Active Start: November 10, 2024 End: November 10, 2024 Dr. John Noel DO Referring Provider Active Start: November 10, 2024 End: November 10, 2024 Dr. Timoteo Mullins MD Attending Provider Active S tart: November 10, 2024 End: November 10, 2024 Team Status: Inactive Member Role Status Dates Dr. John Noel DO Primary Care Provider Active Start: December 01, 2024 End: December 01, 2024 Dr. Timoteo Mullins MD Attending Provider Active S tart: December 01, 2024 End: December 01, 2024 Dr. Timoteo Mullins MD Referring Provider Active S tart: December 01, 2024 End: December 01, 2024 Team Status: Inactive Member Role Status Dates Dr. John Noel DO Primary Care Provider Active Start: December 08, 2024 End: December 08, 2024 Dr. John Noel DO Attending Provider Active Start: December 08, 2024 End: December 08, 2024 Team Status: Inactive Member Role Status Dates Dr. John Noel DO Primary Care Provider Active Start: December 16, 2024 End: December 16, 2024 Dr. Timoteo Mckenna DO Attending Provider Active S tart: December 16, 2024 End: December 16, 2024 Dr. Timoteo Mckenna DO Emergency Provider Active S tart: December 16, 2024 End: December 16, 2024 Team Status: Inactive Member Role Status Dates Dr. John Noel DO Primary Care Provider Active Start: February 05, 2025 End: February 05, 2025 Dr. John Noel DO Attending Provider Active Start: February 05, 2025 End: February 05, 2025 Editor News Relationship Specialty Start Date End Date John Noel DO [address] [facility] [place] [phone] PCP - General Family Medicine 03/14/24 Editor News Relationship Specialty Start Date End Date John Noel DO [address] [place] [phone] PCP - General Family Medicine 03/14/24 Team Status: Active Member Role/Relationship Status Dates Dr. John Noel DO Primary Care Provider Active Team Status: Inactive Member Role/Relationship Status Dates Dr. John Noel DO Primary Care Provider Active Start: February 05, 2025 End: February 05, 2025 Dr. John Noel DO Attending Provider Active Start: February 05, 2025 End: February 05, 2025 Team Status: Inactive Member Role/Relationship Status Dates Dr. John Noel DO Primary Care Provider Active Start: March 12, 2025 End: March 12, 2025 Dr. John Noel DO Referring Provider Active Start: March 12, 2025 End: March 12, 2025 Cynthia Bowen EMPLOYEE BENEFITS COORDINATOR, EMPLOYEE BENEFITS COORDINATOR-C Attending Provider Active Start: March 12, 2025 End: March 12, 2025 Team Status: Active Member Role/Relationship Status Dates Dr. John Noel DO Primary Care Provider Active Start: April 25, 2025 ANGELA GUERRERO Attending Provider Active Start: 2024 Team Status: Inactive Member Role/Relationship Status Dates Dr. John Noel DO Primary Care Provider Active Start: April 27, 2025 End: April 27, 2025 Dr. Timoteo Mckenna DO Emergency Provider Active S tart: April 27, 2025 End: April 27, 2025 Team Status: Active Member Role/Relationship Status Dates Dr. John Noel DO Primary Care Provider Active Start: April 28, 2025 Dr. Henok Villarreal MD Emergency Provider Active Sta rt: April 28, 2025 Dr. Manisha Varela MD Admit Provider Active Star t: April 28, 2025 Dr. Manisha Varela MD Attending Provider Active Start: April 28, 2025 Team Status: Inactive Member Role/Relationship Status Dates Dr. John Noel DO Primary Care Provider Active Start: April 29, 2025 End: April 29, 2025 Dr. Henok Villarreal MD Emergency Provider Active Sta rt: April 29, 2025 End: April 29, 2025 Dr. Manisha Varela MD Admit Provider Active Star t: April 29, 2025 End: April 29, 2025 Dr. Manisha Varela MD Other Provider Active Star t: April 29, 2025 End: April 29, 2025 Dr. Cheryl Ochoa DO Attending Provider Active S tart: April 29, 2025 End: April 29, 2025 Team Status: Active Member Role/Relationship Status Dates Dr. John Noel DO Primary Care Provider Active Start: April 29, 2025 Dr. Henok Villarreal MD Emergency Provider Active Sta rt: April 29, 2025 Dr. Manisha Varela MD Admit Provider Active Star t: April 29, 2025 Dr. Manisha Varela MD Other Provider Active Star t: April 29, 2025 Dr. Cheryl Ochoa DO Attending Provider Active S tart: April 29, 2025 Dr. Cheryl Ochoa DO Other Provider Active Start : April 29, 2025 Team Status: Inactive Member Role/Relationship Status Dates Dr. John Noel DO Primary Care Provider Active Start: April 25, 2025 End: April 25, 2025 ANGELA GUERRERO Attending Provider Active Start: 2024 End: April 25, 2025 Team Status: Inactive Member Role/Relationship Status Dates Dr. John Noel DO Primary Care Provider Active Start: April 29, 2025 End: April 29, 2025 Dr. Henok Villarreal MD Emergency Provider Active Sta rt: April 29, 2025 End: April 29, 2025 Dr. Manisha Varela MD Admit Provider Active Star t: April 29, 2025 End: April 29, 2025 Dr. Manisha Varela MD Other Provider Active Star t: April 29, 2025 End: April 29, 2025 Dr. Cheryl Ochoa DO Attending Provider Active S tart: April 29, 2025 End: April 29, 2025 Dr. Cheryl Ochoa DO Other Provider Active Start : April 29, 2025 Team Status: Inactive Member Role/Relationship Status Dates Dr. John Noel DO Primary Care Provider Active Start: March 02, 2025 End: March 02, 2025 Dr. Timoteo Mullins MD Attending Provider Active S tart: March 02, 2025 End: March 02, 2025 Team Status: Inactive Member Role/Relationship Status Dates Dr. John Noel DO Primary Care Provider Active Start: March 12, 2025 End: March 12, 2025 Dr. John Noel DO Referring Provider Active Start: March 12, 2025 End: March 12, 2025 Cynthia Bowen EMPLOYEE BENEFITS COORDINATOR, EMPLOYEE BENEFITS COORDINATOR-C Attending Provider Active Start: March 12, 2025 End: March 12, 2025 Team Status: Inactive Member Role/Relationship Status Dates Dr. John Noel DO Primary Care Provider Active Start: April 25, 2025 End: April 25, 2025 ANGELA GUERRERO Attending Provider Active Start: 2024 End: April 25, 2025 Team Status: Inactive Member Role/Relationship Status Dates Dr. John Noel DO Primary Care Provider Active Start: April 27, 2025 End: April 27, 2025 Dr. Timoteo Mckenna DO Attending Provider Active S tart: April 27, 2025 End: April 27, 2025 Dr. Timoteo Mckenna DO Emergency Provider Active S tart: April 27, 2025 End: April 27, 2025 Team Status: Inactive Member Role/Relationship Status Dates Dr. John Noel DO Primary Care Provider Active Start: April 29, 2025 End: April 29, 2025 Dr. Henok Villarreal MD Emergency Provider Active Sta rt: April 29, 2025 End: April 29, 2025 Dr. Manisha Varela MD Admit Provider Active Star t: April 29, 2025 End: April 29, 2025 Dr. Manisha Varela MD Other Provider Active Star t: April 29, 2025 End: April 29, 2025 Dr. Cheryl Ochoa DO Attending Provider Active S tart: April 29, 2025 End: April 29, 2025 Dr. Cheryl Ochoa DO Other Provider Active Start : April 29, 2025 Team Status: Active Member Role/Relationship Status Dates Dr. John Noel DO Primary Care Provider Active Start: April 29, 2025 Dr. Henok Villarreal MD Emergency Provider Active Sta rt: April 29, 2025 Dr. Manisha Varela MD Admit Provider Active Star t: April 29, 2025 Dr. Manisha Varela MD Other Provider Active Star t: April 29, 2025 Dr. Cheryl Ochoa DO Attending Provider Active S tart: April 29, 2025 Dr. Cheryl Ochoa DO Other Provider Active Start : April 29, 2025 Team Status: Inactive Member Role/Relationship Status Dates Dr. John Noel DO Primary Care Provider Active Start: March 02, 2025 End: March 02, 2025 Dr. Timoteo Mullins MD Attending Provider Active S tart: March 02, 2025 End: March 02, 2025 Dr. Timoteo Mullins MD Referring Provider Active S tart: March 02, 2025 End: March 02, 2025 Team Status: Inactive Member Role/Relationship Status Dates Dr. John Noel DO Primary Care Provider Active Start: May 09, 2025 End: May 09, 2025 Dr. John Noel DO Attending Provider Active Start: May 09, 2025 End: May 09, 2025 Dr. John Noel DO Referring Provider Active Start: May 09, 2025 End: May 09, 2025 (unrecognized sect ion and content) No Status Records FoundNo Status Records FoundNo Status Records FoundNo Status Records Found INFORMATION SOURCE (unrecogn ized section and content) DATE CREATED AUTHOR 07/25/2024 [facility] DATE CREATED AUTHOR AUTHOR'S ORGANIZ ATION 05/17/2025 [facility] DATE CREATED AUTHOR AUTHOR'S ORGANIZ ATION 05/23/2025 [facility] DATE CREATED AUTHOR AUTHOR'S ORGANIZ ATION 05/25/2025 [facility] Scheduled Active and Recently Administ ered Medications [...] BE BASED ON THE PRIMARY CLINICAL RECORDS. [facility]. provides no warranty or guarantee of the accuracy or completeness of information in this document.
[2025-05-25 20:56] LABS: Color, Urine Yellow (Yellow); Glucose, Dipstick Normal (Normal); Ketone-Dipstick 5 mg/dl (Negative); Leukocyte Esterase-Dipstick 500 /ul (Negative); Nitrite-Dipstick Positive (Negative); Occult Blood-Urine 25 /ul (Negative); Protein-Dipstick 30 mg/dl (Negative); Specific Gravity, Urine 1.015 (1.002-1.030); Urine Bilirubin Dipstick Negative (Negative)
--- NOTE | 2025-05-25 20:58 | CASEMGMT ---
TERESITA SUAREZ readmission note: Index admission: Admitted 04/29 w/dx N/V, UTI. When he presented to ED, he was having N/V and unable to tolerate his medications. Pt admitted and placed on IV atb's. Pt left AMA 04/29 before urine cx's were available. He was instructed to take the Keflex that was prescribed by ED 04/27. (Prior to that admission, pt had presented to [facility] ED 04/27 with chief complaint of poor p.o. intake. He was found to have a UTI. He was dc'd home on po Keflex). Current admission: UTI. Per Dr Garg H/P, urine culture from prior admission came back positive for non-ESBL E. coli, Pseudomonas and Enterococcus. The Enterococcus was low CFU's of 1000 and 10,000. He then had an OP urine culture through [facility] that grew out ESBL E. coli sensitive only to imipenem, meropenem, piperacillin/tazobactam and Bactrim. Pt was notified of this and instructed to come to the ER. Triston WALLACE RN, CM
[2025-05-25 21:09] LABS: Red Blood Cells-Urine 0-5 SEEN /hpf (0-5)
[2025-05-25 21:12] LABS: Squamous Epithelial Cells - UA 0-5 SEEN /hpf (0-5); Transitional Epithelial - Ur 0-5 SEEN /hpf (0-5)
[2025-05-25] MEDS: 0.9% Saline Lock 10 ML Syringe IV (21:39)
[2025-05-25] MEDS: 0.9% Normal Saline (1000mL) 1,000 ML 150 ML IV (21:39)
[2025-05-25] MEDS: SACUBITRIL/VALSARTAN 24/26 MG TABLET 1 EACH PO (22:21)
[2025-05-26 04:21] LABS: Hematocrit 28.8 % (40-54); Hemoglobin 9.4 g/dL (13.0-16.5); Immature Granulocytes Count 0.010 X10^3/uL (0.0-0.0); Mean Corp Hgb Conc 32.6 g/dL (32-36); Mean Corpuscular Volume 90.0 fL (80-94); Mean Platelet Vol. 10.9 fl (6.2-12.0); NRBC Flagged by Analyzer 0 % (0-5); Platelet Count 162 K/mm3 (150-450); RBC Distribution Width CV 13.7 % (11.6-14.6); RBC Distribution Width SD 45.0 fl (35.1-43.9); Red Blood Count 3.20 M/mm3 (4.6-6.2); White Blood Count 6.9 K/mm3 (4.4-11.0)
[2025-05-26] MEDS: 0.9% Normal Saline (250mL Bag) 250 ML 15 ML IV (04:28)
[2025-05-26] MEDS: Piperacil/Tazobactam 3.375 GM in 0.9% Normal Saline (50mL MB+) 50 ML IV ×3 (04:29→21:18)
[2025-05-26 04:45] LABS: Anion Gap 13 (5-15); BUN 19 mg/dL (4-19); BUN/Creat Ratio 22.5 RATIO (10-20); Calcium,Total 8.2 mg/dL (7.6-11.0); Carbon Dioxide 18.9 mmol/L (21.0-32.0); Chloride 107 mmol/L (98-108); Estimated Creatinine Clearance 41.73 ml/min (50-250); Glucose 81 mg/dL (70-99); Potassium 3.9 mmol/L (3.3-5.1)
[2025-05-26 04:49] VITALS: BP 125/53; PULSE 65; RESP 15; TEMP 36.7; O2SAT 98
[2025-05-26 08:11] VITALS: BP 124/55; PULSE 61; RESP 16; TEMP 36.1; O2SAT 96
--- NOTE | 2025-05-26 08:29 | PCM.PN.HOSP ---
Subjective Subjective Doing well, feels a bit better today. But still acknowledges that he is kind of weak Objective Data Objective Data Vital Signs: Vital Signs Temp Pulse Resp BP Pulse Ox O2 Del Method 97 F L 61 16 124/55 H 96 Room Air 05/26/25 08:11 05/26/25 08:11 05/26/25 08:11 05/26/25 08:11 05/26/25 08:11 05/26/25 08:11 Oxygen Delivery Method Room Air Weight: 107 lb 12.897 oz Body Mass Index (BMI) 19.7 Intake & Output: Intake and Output for Last 24 Hours 05/25/25 05/26/25 05/27/25 03:59 03:59 03:59 Intake Total 750 / 750 1100 / 1100 Output Total 100 / 100 200 / 200 Balance 650 / 650 900 / 900 Lab / Micro Data 05/26/25 04:06 05/26/25 04:06 Labs: Laboratory Results - last 24 hr 05/25/25 17:00: WBC 8.2, RBC 3.76 L, Hgb 11.1 L, Hct 33.6 L, MCV 89.4, MCH 29.5, MCHC 33.0, RDW Std Deviation 45.0 H, RDW Coeff of Arleen 13.8, Plt Count 180, MPV 11.8, Immature Gran % (Auto) 0.400, Neut % (Auto) 59.5, Lymph % (Auto) 25.2, [place] % (Auto) 12.5 H, Eos % (Auto) 1.9, Baso % (Auto) 0.5, Absolute Neuts (auto) 4.9, Absolute Lymphs (auto) 2.07, Nucleated RBC % 0, PT 14.2, INR 1.1, APTT 27.9, Sodium 135, Potassium 4.7, Chloride 100, Carbon Dioxide 20.2 L, Anion Gap 14, BUN 22 H, Creatinine 1.07, Estim Creat Clear Calc 33.39 L, Est GFR (MDRD) Non-Af 66, BUN/Creatinine Ratio 20.5 H, Glucose 109 H, Lactic Acid 1.2, Calcium 9.2, Total Bilirubin 0.85, AST 31, ALT 15, Alkaline Phosphatase 49, Total Protein 7.4, Albumin 3.8, Globulin 3.6, Albumin/Globulin Ratio 1.1 05/25/25 18:20: Urine Color Yellow, Urine Clarity Sl. Cloudy, Urine pH 6.0, Ur Specific [place] 1.015, Urine Protein 30 H, Urine Glucose (UA) Normal, Urine Ketones 5 H, Urine Occult Blood 25 H, Urine Nitrite Positive H, Urine Bilirubin Negative, Urine Urobilinogen Normal, Ur Leukocyte Esterase 500 H, Urine RBC 0-5 SEEN, Urine WBC 10-25 SEEN, Ur Squamous Epith Cells 0-5 SEEN, Ur Transition Epith Cell 0-5 SEEN, Urine Bacteria 2+, Urine Mucus 0 SEEN 05/26/25 04:06: WBC 6.9, RBC 3.20 L, Hgb 9.4 L, Hct 28.8 L, MCV 90.0, MCH 29.4, MCHC 32.6, RDW Std Deviation 45.0 H, RDW Coeff of Arleen 13.7, Plt Count 162, MPV 10.9, Immature Gran % (Auto) 0.100, Neut % (Auto) 50.4, Lymph % (Auto) 33.3, Dillon % (Auto) 12.4 H, Eos % (Auto) 3.1, Baso % (Auto) 0.7, Absolute Neuts (auto) 3.5, Absolute Lymphs (auto) 2.28, Nucleated RBC % 0, Sodium 138, Potassium 3.9, Chloride 107, Carbon Dioxide 18.9 L, Anion Gap 13, BUN 19, Creatinine 0.83, Estim Creat Clear Calc 41.73 L, Est GFR (MDRD) Non-Af 84, BUN/Creatinine Ratio 22.5 H, Glucose 81, Calcium 8.2 Radiography Diagnostic Testing: Radiology Impression Chest X-Ray 05/25/25 17:35 IMPRESSION: NO ACUTE FINDINGS. Reading Location: [facility] Rhythm Strip Rhythm Strip: Sinus Rhythm Rate: 70 Ectopy: None Physical Exam Narrative General: Alert, Oriented x3, Cooperative, No apparent distress HEENT: Atraumatic, PERRLA, EOMI, Normocephalic Oral: Moist Mucosa Neck: Supple, No JVD Lungs: Diminished, Normal air movement, No rhonchi, No wheeze, No rales Cardiovascular: Regular rate, Regular Rhythm, Normal S1, Normal S2, No murmurs Abdomen: Soft, Non Tender, Non-Distended, No Hepato-splenomegaly Extremities: No edema, Capillary Refill Less than 3 Seconds Skin: No rashes, No breakdown Musculoskeletal: No Tenderness to Palpation of Joints or Extremities Neurological: No focal neurological deficits, moves all extremities, sensation intact Psych/Mental Status: Normal Affect, Appropriate Assessment & Plan Assessment/Plan (1) Catheter-associated urinary tract infection: (2) Debility: (3) Protein calorie malnutrition: PLAN: Await dietitian recommendations PLAN: Plan 1. Catheter associated UTI with possible ESBL E. coli/debility ? Cultures from 05/21/2025 in outside hospital demonstrated ESBL E. coli ? He was started on Zosyn but no culture was obtained in the ER prior to initiation of antibiotics ? PT/OT for debility, he is at an assisted living that is attached to his SNF. If he is able to go back to the assisted living then he could be treated with fosfomycin otherwise we will maintain here on IV antibiotics pending transfer 2. CAD status post stent/chronic systolic CHF/essential HTN/HLD That she had an echo in 2020 with an EF of 25% and RVSP of 29 mmHg ? Continue with his home blood pressure medications ? Continue with his home aspirin ? Continue with his home cholesterol medications ? Will monitor and make adjustments as necessary 3. BPH with obstruction ? Rod is in place ? Continue with Flomax ? Rod was changed in the ER on this admission DVT: Lovenox Charges/Coding Visit Charges Inpatient E&M: 46953 Subs Hosp L2
[2025-05-26] MEDS: SACUBITRIL/VALSARTAN 24/26 MG TABLET 1 EACH PO ×2 (09:12→21:19)
[2025-05-26] MEDS: Aspirin E.C. 81 MG Tablet PO (09:12)
[2025-05-26 15:36] VITALS: BP 117/82; PULSE 59; RESP 18; TEMP 36.3; O2SAT 95
--- NOTE | 2025-05-26 15:58 | CASEMGMT ---
TERESITA SUAREZ note: RN CM to room. Pt resting in bed. and daughter, Magaly, @ bedside. Pt agreeable to them being present during while TERESITA SUAREZ discussing his care, readmission, and to discuss discharge planning. Pt states he lives @ [facility] w/his . He states he is on the basic plan and is independent/cares for himself. He manages his own medications at the AL. TERESITA SUAREZ inquired about Rx for Keflex that was prescribed in ED 04/27. He states he did pick those up and took them as prescribed until completed. Pt's PCP is Dr Terry Mckeon and he sees him monthly, stating he last saw him about a month ago and his next mady is scheduled for 06/05. Pt still drives and he drives to his appts. Pt goes to [facility], urologist in [place]. He uses a walker @ baseline. He also has a cane he uses on occasion and uses a shower chair. Discussed discharge planning. Pt states he wishes to return to [facility] @ discharge and declines wanting list of other AL's. He is aware PT/OT evals are pending. He states if SNF is needed @ dc, he would be agreeable and would want to go to [facility], and declines wanting list of other SNF's. Dtr, Magaly, states she can transport pt back to either [facility] or [facility] @ discharge. Per Dr Nowak, pt to discharge on PO atb's when medically ready to discharge from the hospital. Plan: Pt wishes to return to [facility] [place], if able. PT/OT evals pending. Triston WALLACE RN, CM
[2025-05-26 21:24] VITALS: BP 122/54; PULSE 66; RESP 18; TEMP 36.8; O2SAT 96
[2025-05-27] MEDS: MELATONIN 10 MG TABLET 20 MG PO ×2 (01:33→21:49)
[2025-05-27 02:47] VITALS: BP 141/72; PULSE 87; RESP 18; TEMP 36.6; O2SAT 96
[2025-05-27] MEDS: Piperacil/Tazobactam 3.375 GM in 0.9% Normal Saline (50mL MB+) 50 ML IV ×3 (05:55→21:50)
[2025-05-27 06:03] LABS: Hematocrit 31.7 % (40-54); Hemoglobin 10.8 g/dL (13.0-16.5); Immature Granulocytes Count 0.010 X10^3/uL (0.0-0.0); Mean Corp Hgb Conc 34.1 g/dL (32-36); Mean Corpuscular Volume 88.8 fL (80-94); Mean Platelet Vol. 10.3 fl (6.2-12.0); NRBC Flagged by Analyzer 0 % (0-5); Platelet Count 174 K/mm3 (150-450); RBC Distribution Width CV 13.4 % (11.6-14.6); RBC Distribution Width SD 43.9 fl (35.1-43.9); Red Blood Count 3.57 M/mm3 (4.6-6.2); White Blood Count 7.2 K/mm3 (4.4-11.0)
[2025-05-27 06:31] LABS: Anion Gap 14 (5-15); BUN 16 mg/dL (4-19); BUN/Creat Ratio 20.6 RATIO (10-20); Calcium,Total 8.8 mg/dL (7.6-11.0); Carbon Dioxide 18.0 mmol/L (21.0-32.0); Chloride 104 mmol/L (98-108); Estimated Creatinine Clearance 43.30 ml/min (50-250); Glucose 114 mg/dL (70-99); Potassium 3.9 mmol/L (3.3-5.1)
[2025-05-27] MEDS: Aspirin E.C. 81 MG Tablet PO (08:22)
--- NOTE | 2025-05-27 08:52 | PN.HOSP_ITS ---
Subjective Subjective Doing well, no issues overnight. Cultures are still pending Objective Data Objective Data Vital Signs: Vital Signs Temp Pulse Resp BP Pulse Ox O2 Del Method 97.8 F 87 18 141/72 H 96 Room Air 05/27/25 02:47 05/27/25 02:47 05/27/25 02:47 05/27/25 02:47 05/27/25 02:47 05/27/25 02:47 Oxygen Delivery Method Room Air Weight: 107 lb 12.897 oz Body Mass Index (BMI) 19.7 Intake & Output: Intake and Output for Last 24 Hours 05/26/25 05/27/25 05/28/25 03:59 03:59 03:59 Intake Total 750 / 750 2100 / 2100 Output Total 100 / 100 900 / 900 250 / 250 Balance 650 / 650 1200 / 1200 -250 / -250 Medical Nutrition Assessment Dietitian: Malnutrition Criteria Met Start: 05/26/25 15:07 Freq: Status: Active Protocol: Document 05/26/25 15:08 DESIREE (Rec: 05/26/25 15:08 DESIREE [id number]) Nutrition Malnutrition Evidence of Yes Malnutrition Exists Malnutrition (severe Chronic ): Evidenced By Suboptimal Energy Intake (Severe),Weight Loss (Severe), Physical Changes (Moderate),Physical Changes (Severe) Clinical Problem Chronic Disease or Condition Related Malnutrition Etiology related to physiological changes decreasing appetite and oral intakes Signs/Symptoms as evidenced by significant weight loss of 10% of his body weight, or 12lb, since 04/27/25 weight of 119lb 11. 376oz as well as estimated oral intakes meeting less than 50% of estimated nutrient needs for > 1 month and visual evidence of moderate to severe muscle and fat wasting (buccal, occular, clavicles). Status Active Problem Recommendation Dietitian Continue with Regular - General diet for liberalization Recommendations/ . Changes Will trial Magic Cup with meals. Provided encouragement to request snacks in between meals to help increase oral intakes. High Calorie, High Protein Nutrition Therapy reviewed and provided. Will continue to follow, monitor oral intakes and modify nutrition interventions as needed. Lab / Micro Data 05/27/25 05:50 05/27/25 05:50 Labs: Laboratory Results - last 24 hr 05/27/25 05:50: WBC 7.2, RBC 3.57 L, Hgb 10.8 L, Hct 31.7 L, MCV 88.8, MCH 30.3, MCHC 34.1, RDW Std Deviation 43.9, RDW Coeff of Arleen 13.4, Plt Count 174, MPV 10.3, Immature Gran % (Auto) 0.100, Neut % (Auto) 54.2, Lymph % (Auto) 32.8, [place] % (Auto) 9.1, Eos % (Auto) 3.2, Baso % (Auto) 0.6, Absolute Neuts (auto) 3.9, Absolute Lymphs (auto) 2.37, Nucleated RBC % 0, Sodium 137, Potassium 3.9, Chloride 104, Carbon Dioxide 18.0 L, Anion Gap 14, BUN 16, Creatinine 0.76, E stim Creat Clear Calc 43.30 L, Est GFR (MDRD) Non-Af 86, BUN/Creatinine Ratio 20.6 H, Glucose 114 H, Calcium 8.8 Rhythm Strip Rhythm Strip: Sinus Rhythm Rate: 70 Ectopy: None Physical Exam Narrative General: Alert, Oriented x3, Cooperative, No apparent distress HEENT: Atraumatic, PERRLA, EOMI, Normocephalic Oral: Moist Mucosa Neck: Supple, No JVD Lungs: Diminished, Normal air movement, No rhonchi, No wheeze, No rales Cardiovascular: Regular rate, Regular Rhythm, Normal S1, Normal S2, No murmurs Abdomen: Soft, Non Tender, Non-Distended, No Hepato-splenomegaly Extremities: No edema, Capillary Refill Less than 3 Seconds Skin: No rashes, No breakdown Musculoskeletal: No Tenderness to Palpation of Joints or Extremities Neurological: No focal neurological deficits, moves all extremities, sensation intact Psych/Mental Status: Normal Affect, Appropriate Assessment & Plan Assessment/Plan (1) Catheter-associated urinary tract infection: (2) Debility: (3) Protein calorie malnutrition: PLAN: Await dietitian recommendations PLAN: Plan 1. Catheter associated UTI with possible ESBL E. coli/debility ? Cultures from 05/21/2025 in outside hospital demonstrated ESBL E. coli ? He was started on Zosyn but no culture was obtained in the ER prior to initiation of antibiotics ? PT/OT for debility, he is at an assisted living that is attached to his SNF. If he is able to go back to the assisted living then he could be treated with fosfomycin otherwise we will maintain here on IV antibiotics pending transfer 2. CAD status post stent/chronic systolic CHF/essential HTN/HLD That she had an echo in 2020 with an EF of 25% and RVSP of 29 mmHg ? Continue with his home blood pressure medications ? Continue with his home aspirin ? Continue with his home cholesterol medications ? Will monitor and make adjustments as necessary 3. BPH with obstruction ? Rod is in place ? Continue with Flomax ? Rod was changed in the ER on this admission DVT: Lovenox Charges/Coding Visit Charges Inpatient E&M: 33530 Subs Hosp L2
[2025-05-27 08:59] VITALS: BP 107/64; PULSE 90; RESP 18; TEMP 36.6; O2SAT 96
[2025-05-27 09:01] VITALS: PULSE 90; RESP 18; O2SAT 96
[2025-05-27] MEDS: SACUBITRIL/VALSARTAN 24/26 MG TABLET 1 EACH PO (09:09)
[2025-05-27] MEDS: 0.9% Normal Saline (250mL Bag) 250 ML 15 ML IV (13:52)
[2025-05-27 15:00] VITALS: BP 107/54; PULSE 82; RESP 18; TEMP 36.6; O2SAT 98
[2025-05-27 15:59] VITALS: PULSE 82; O2SAT 98
[2025-05-27 21:36] VITALS: BP 101/53; PULSE 75; RESP 16; TEMP 36.6; O2SAT 99
[2025-05-28 05:33] VITALS: BP 127/63; PULSE 68; RESP 16; TEMP 36.4; O2SAT 98
[2025-05-28] MEDS: Piperacil/Tazobactam 3.375 GM in 0.9% Normal Saline (50mL MB+) 50 ML IV (05:39)
[2025-05-28 06:34] LABS: Hematocrit 31.5 % (40-54); Hemoglobin 10.5 g/dL (13.0-16.5); Immature Granulocytes Count 0.010 X10^3/uL (0.0-0.0); Mean Corp Hgb Conc 33.3 g/dL (32-36); Mean Corpuscular Volume 89.0 fL (80-94); Mean Platelet Vol. 10.5 fl (6.2-12.0); NRBC Flagged by Analyzer 0 % (0-5); Platelet Count 189 K/mm3 (150-450); RBC Distribution Width CV 13.7 % (11.6-14.6); RBC Distribution Width SD 45.0 fl (35.1-43.9); Red Blood Count 3.54 M/mm3 (4.6-6.2); White Blood Count 4.9 K/mm3 (4.4-11.0)
[2025-05-28 06:54] LABS: Anion Gap 10 (5-15); BUN 16 mg/dL (4-19); BUN/Creat Ratio 22.9 RATIO (10-20); Calcium,Total 8.6 mg/dL (7.6-11.0); Carbon Dioxide 22.5 mmol/L (21.0-32.0); Chloride 107 mmol/L (98-108); Estimated Creatinine Clearance 43.30 ml/min (50-250); Glucose 100 mg/dL (70-99); Potassium 3.6 mmol/L (3.3-5.1)
[2025-05-28 08:00] VITALS: BP 150/86
--- NOTE | 2025-05-28 08:10 | PN.HOSP_ITS ---
Subjective Subjective Doing well, no issues overnight. Urine culture still pending Objective Data Objective Data Vital Signs: Vital Signs Temp Pulse Resp BP Pulse Ox O2 Del Method 97.6 F L 68 16 127/63 H 98 Room Air 05/28/25 05:33 05/28/25 05:33 05/28/25 05:33 05/28/25 05:33 05/28/25 05:33 05/28/25 05:33 Oxygen Delivery Method Room Air Weight: 107 lb 12.897 oz Body Mass Index (BMI) 19.7 Intake & Output: Intake and Output for Last 24 Hours 05/27/25 05/28/25 05/29/25 03:59 03:59 03:59 Intake Total 2100 / 2100 882 / 882 Output Total 900 / 900 1000 / 1000 225 / 225 Balance 1200 / 1200 -118 / -118 -225 / -225 Medical Nutrition Assessment Dietitian: Malnutrition Criteria Met Start: 05/26/25 15:07 Freq: Status: Active Protocol: Document 05/26/25 15:08 DESIREE (Rec: 05/26/25 15:08 DESIREE [id number]) Nutrition Malnutrition Evidence of Yes Malnutrition Exists Malnutrition (severe Chronic ): Evidenced By Suboptimal Energy Intake (Severe),Weight Loss (Severe), Physical Changes (Moderate),Physical Changes (Severe) Clinical Problem Chronic Disease or Condition Related Malnutrition Etiology related to physiological changes decreasing appetite and oral intakes Signs/Symptoms as evidenced by significant weight loss of 10% of his body weight, or 12lb, since 04/27/25 weight of 119lb 11. 376oz as well as estimated oral intakes meeting less than 50% of estimated nutrient needs for > 1 month and visual evidence of moderate to severe muscle and fat wasting (buccal, occular, clavicles). Status Active Problem Recommendation Dietitian Continue with Regular - General diet for liberalization Recommendations/ . Changes Will trial Magic Cup with meals. Provided encouragement to request snacks in between meals to help increase oral intakes. High Calorie, High Protein Nutrition Therapy reviewed and provided. Will continue to follow, monitor oral intakes and modify nutrition interventions as needed. Lab / Micro Data 05/28/25 06:14 05/28/25 06:14 Labs: Laboratory Results - last 24 hr 05/28/25 06:14: WBC 4.9, RBC 3.54 L, Hgb 10.5 L, Hct 31.5 L, MCV 89.0, MCH 29.7, MCHC 33.3, RDW Std Deviation 45.0 H, RDW Coeff of Arleen 13.7, Plt Count 189, MPV 10.5, Immature Gran % (Auto) 0.200, Neut % (Auto) 51.8, Lymph % (Auto) 34.2, M simon % (Auto) 10.5 H, Eos % (Auto) 2.9, Baso % (Auto) 0.4, Absolute Neuts (auto) 2.5, Absolute Lymphs (auto) 1.66, Nucleated RBC % 0, Sodium 140, Potassium 3.6, Chloride 107, Carbon Dioxide 22.5, Anion Gap 10, BUN 16, Creatinine 0.70, Estim Creat Clear Calc 43.30 L, Est GFR (MDRD) Non-Af 88, BUN/Creatinine Ratio 22.9 H, Glucose 100 H, Calcium 8.6 Micro: Microbiology 05/25/25 17:25 Blood Culture (Wb) - Right Forearm Blood Culture - Preliminary No growth in 48 hours. 05/25/25 17:00 Blood Culture (Wb) - Right Forearm Blood Culture - Preliminary No growth in 48 hours. Rhythm Strip Rhythm Strip: Sinus Rhythm Rate: 70 Ectopy: None Physical Exam Narrative General: Alert, Oriented x3, Cooperative, No apparent distress HEENT: Atraumatic, PERRLA, EOMI, Normocephalic Oral: Moist Mucosa Neck: Supple, No JVD Lungs: Diminished, Normal air movement, No rhonchi, No wheeze, No rales Cardiovascular: Regular rate, Regular Rhythm, Normal S1, Normal S2, No murmurs Abdomen: Soft, Non Tender, Non-Distended, No Hepato-splenomegaly Extremities: No edema, Capillary Refill Less than 3 Seconds Skin: No rashes, No breakdown Musculoskeletal: No Tenderness to Palpation of Joints or Extremities Neurological: No focal neurological deficits, moves all extremities, sensation intact Psych/Mental Status: Normal Affect, Appropriate Assessment & Plan Assessment/Plan (1) Catheter-associated urinary tract infection: (2) Debility: (3) Protein calorie malnutrition: PLAN: Plan 1. Catheter associated UTI with possible ESBL E. coli/debility ? Cultures from 05/21/2025 in outside hospital demonstrated ESBL E. coli ? He was started on Zosyn but no culture was obtained in the ER prior to initiation of antibiotics ? PT/OT for debility, he is at an assisted living that is attached to his SNF. If he is able to go back to the assisted living then he could be treated with fosfomycin otherwise we will maintain here on IV antibiotics pending transfer 2. CAD status post stent/chronic systolic CHF/essential HTN/HLD That she had an echo in 2020 with an EF of 25% and RVSP of 29 mmHg ? Continue with his home blood pressure medications ? Continue with his home aspirin ? Continue with his home cholesterol medications ? Will monitor and make adjustments as necessary 3. BPH with obstruction ? Rod is in place ? Continue with Flomax ? Rod was changed in the ER on this admission DVT: Lovenox Charges/Coding Visit Charges Inpatient E&M: 57325 [facility] Hosp L1
[2025-05-28] MEDS: Aspirin E.C. 81 MG Tablet PO (08:18)
[2025-05-28] MEDS: SACUBITRIL/VALSARTAN 24/26 MG TABLET 1 EACH PO (08:20)
[2025-05-28 09:13] VITALS: BP 140/63; PULSE 79; RESP 16; TEMP 36.6; O2SAT 98
--- NOTE | 2025-05-28 10:17 | CASEMGMT ---
Addendum entered by Alice Beasley 05/28/25 15:26: [facility] agreeable to pt return. CELIA sent discharge instructions via [facility]port. CELIA called pt dtr. Dtr Magaly will arrive to transport in one hour. Bedside nurse updated. Plan: [facility]; return [facility] Addendum entered by Alice Beasley 05/28/25 13:52: SW left a voicemail to follow up on clinical meeting, as well as followed up via careport. CELIA shared pt OT progress from today. CELIA remains available to follow. [facility] Original Note: Social Work- SW received a call from Magaly, pt dtr regarding pt d/c. CELIA will follow up with dtr following rounds; dtr agreeable. CELIA called [facility] who report that they will have a care meeting this morning to determine appropriateness to return to AL vs SNF. CELIA sent clinical updates via Care port. CELIA remains available to follow for discharge planning. . [facility]
--- NOTE | 2025-05-28 14:20 | DCINST_ITS ---
Discharge Instructions DC O2, CPAP, BIPAP needs Home O2 Discharge instructions: No Dressing / Incision Discharge Activity: Return to Normal Activity Dressing / Incision Call your doctor if you observe: Fever of 101 or Higher, Shortness of breath, Dizziness, Fainting spells, Swelling in the ankles, Chest pain and Increased palpitations (irregular heartbeat) Follow Up Care Test Results: Test results from this visit will be discussed in further detail at your follow- up appointment, if applicable. Discharge Plan Admission Admit Date/Time: 05/25/25 20:02 Attending Provider: Natanael Nowak Primary Care Provider: Terry Mckeon Consulting Providers: Suraj Garg Discharge Orders/Prescriptions Prescriptions: New fosfomycin tromethamine 3 gram packet 1 packet PO QODAY Qty: 3 0RF Continued tamsulosin 0.4 mg capsule 0.4 mg PO QDAY aspirin [Adult Low Dose Aspirin] 81 mg tablet,delayed release (DR/EC) 81 mg PO DAILY nitroglycerin 0.4 mg tablet, sublingual 0.4 mg SUBLINGUAL Q5M PRN (Reason: Chest Pain) Qty: 25 3RF prednisone 5 mg tablet 2 mg PO QDAY carvedilol 6.25 mg tablet 6.25 mg PO BID Qty: 60 3RF Rx Instructions: must administer with a meal/food oxybutynin chloride 5 mg tablet 5 mg PO DAILY melatonin 10 mg tablet 20 mg PO QHS diphenhydramine-acetaminophen [Tylenol PM Extra Strength] 25-500 mg tablet 2 tab PO QHS prednisone 1 mg tablet 2 mg PO DAILY simvastatin 20 mg tablet 20 mg PO QHS Qty: 90 3RF Entresto 24-26 mg tablet 1 tab PO BID Qty: 60 11RF Discontinued cephalexin 500 mg capsule 500 mg PO Q6 Qty: 28 0RF Referrals / Follow Up: Terry Mckeon DO [Primary Care Provider] - Within 1 Week Disposition Disposition (needs filled in before D/C Order can be placed): Assisted Living
[2025-05-28 14:46] VITALS: BP 116/62; PULSE 82; RESP 16; TEMP 36.7; O2SAT 99
--- NOTE | 2025-05-28 15:53 | DS.PCM_ITS ---
Providers Date of Admission: 05/25/25 Primary Care Physician: Dr. Terry Mckeon DO Reason For Visit: UTI Diagnosis Discharge Diagnosis (1) Catheter-associated urinary tract infection: Status: Acute Code(s): T83.511A - Infection and inflammatory reaction due to indwelling urethral catheter, initial encounter; N39.0 - Urinary tract infection, site not specified (2) Debility: Status: Acute Code(s): R53.81 - Other malaise (3) Protein calorie malnutrition: Status: Acute Code(s): E46 - Unspecified protein-calorie malnutrition Medications at Discharge Home Medications aspirin 81 mg tablet,delayed release (Adult Low Dose Aspirin) 81 mg PO DAILY 05/23/24 nitroglycerin 0.4 mg sublingual tablet 0.4 mg sublingual Q5M PRN Chest Pain #25 tabs 05/23/24 tamsulosin 0.4 mg capsule 0.4 mg PO QDAY 05/23/24 simvastatin 20 mg tablet 20 mg PO QHS for cholesterol #90 TABLETS 08/23/24 carvedilol 6.25 mg tablet 6.25 mg PO BID #60 tabs 11/10/24 prednisone 5 mg tablet 2 mg PO QDAY 11/10/24 sacubitril 24 mg-valsartan 26 mg tablet (Entresto) 1 tab PO BID #60 tabs 03/14/25 diphenhydramine 25 mg-acetaminophen 500 mg tablet (Tylenol PM Extra Strength) 2 tab PO QHS 04/28/25 melatonin 10 mg tablet 20 mg PO QHS sleep 04/28/25 oxybutynin chloride 5 mg tablet 5 mg PO DAILY 04/28/25 prednisone 1 mg tablet 2 mg PO DAILY 05/25/25 fosfomycin tromethamine 3 gram oral packet 1 packet PO QODAY 3 doses #3 ea 05/28/25 Hospital Course Operations None Procedures None Summary of Care Provided Minutes Spent on Discharge: 35 Hospital Course: Per HPI: JORGE GUZMÁN, is a 89 M who presents due to abnormal urine culture. Patient was admitted at [facility] from the with a UTI. He left AGAINST MEDICAL ADVICE before the culture results were available. Patient was discharged with cephalexin. Urine culture came back positive for non-ESBL E. coli, Pseudomonas and Enterococcus. The Enterococcus was low CFU's of 1000 and 10,000. He had an outpatient urine culture through [facility] that grew out ESBL E. coli sensitive only to imipenem, meropenem, piperacillin/tazobactam and Bactrim. Patient was notified of this and instructed to come to the emergency room. In emergency room, patient did receive pip-tazo based on the prior culture results. Patient does since going home has not very well and he is just getting weaker, potential going days without eating. Is also been having some loose stools. Patient was seen with his daughter at bedside. Hospital Course: 1. Catheter associated UTI with ESBL E. coli/debility?89-year-old male had been previously managed in the hospital from the and 29 April with a UTI, at that time he left AGAINST MEDICAL ADVICE and he had cultures with multiple different organisms growing in including Pseudomonas, Enterococcus, and a nonactive ESBL E. coli. He continued to have symptomatic issues during the early period of May and he went to [facility] where he had a urine culture which grew an ESBL E. coli and presented to this hospital for treatment. He was started on Zosyn as it was sensitive per report and he has been doing well. He was evaluated by physical therapy and Occupational Therapy who felt that he could go back to the assisted living. Given the success rate with fosfomycin I will discharge him on p.o. fosfomycin to complete course for his UTI. 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 I discussed with him the plan for discharge and he expressed understanding of the risk and benefits of going home and would like to go home today. He does have protein calorie malnutrition and I discussed with him the need to eat he says that he struggles because he does not have much of an appetite, we did discuss strategies including having multiple small meals throughout the day. 2. Coronary artery disease status post stent, chronic systolic CHF, essential hypertension, hyperlipidemia, BPH with obstruction are chronic medical conditions which complicate his care. His home medications were continued where appropriate Physical Exam Narrative General: Alert, Oriented x3, Cooperative, No apparent distress HEENT: Atraumatic, PERRLA, EOMI, Normocephalic Oral: Moist Mucosa Neck: Supple, No JVD Lungs: Diminished, Normal air movement, No rhonchi, No wheeze, No rales Cardiovascular: Regular rate, Regular Rhythm, Normal S1, Normal S2, No murmurs Abdomen: Soft, Non Tender, Non-Distended, No Hepato-splenomegaly Extremities: No edema, Capillary Refill Less than 3 Seconds Skin: No rashes, No breakdown Musculoskeletal: No Tenderness to Palpation of Joints or Extremities Neurological: No focal neurological deficits, moves all extremities, sensation intact Psych/Mental Status: Normal Affect, Appropriate Medical Records Data Medical Nutrition Assessment Dietitian: Malnutrition Criteria Met Start: 05/26/25 15:07 Freq: Status: Active Protocol: Document 05/26/25 15:08 DESIREE (Rec: 05/26/25 15:08 [facility] [id number]) Nutrition Malnutrition Evidence of Yes Malnutrition Exists Malnutrition (severe Chronic ): Evidenced By Suboptimal Energy Intake (Severe),Weight Loss (Severe), Physical Changes (Moderate),Physical Changes (Severe) Clinical Problem Chronic Disease or Condition Related Malnutrition Etiology related to physiological changes decreasing appetite and oral intakes Signs/Symptoms as evidenced by significant weight loss of 10% of his body weight, or 12lb, since 04/27/25 weight of 119lb 11. 376oz as well as estimated oral intakes meeting less than 50% of estimated nutrient needs for > 1 month and visual evidence of moderate to severe muscle and fat wasting (buccal, occular, clavicles). Status Active Problem Recommendation Dietitian Continue with Regular - General diet for liberalization Recommendations/ . Changes Will trial Magic Cup with meals. Provided encouragement to request snacks in between meals to help increase oral intakes. High Calorie, High Protein Nutrition Therapy reviewed and provided. Will continue to follow, monitor oral intakes and modify nutrition interventions as needed. Weight / BMI Weight Weight: 107 lb 12.897 oz Body Mass Index (BMI) 19.7 ABG / Lab / Microbiology Data 05/28/25 06:14 05/28/25 06:14 Laboratory: Laboratory Results - last 24 hr 05/28/25 06:14: WBC 4.9, RBC 3.54 L, Hgb 10.5 L, Hct 31.5 L, MCV 89.0, MCH 29.7, MCHC 33.3, RDW Std Deviation 45.0 H, RDW Coeff of Arleen 13.7, Plt Count 189, MPV 10.5, Immature Gran % (Auto) 0.200, Neut % (Auto) 51.8, Lymph % (Auto) 34.2, M simon % (Auto) 10.5 H, Eos % (Auto) 2.9, Baso % (Auto) 0.4, Absolute Neuts (auto) 2.5, Absolute Lymphs (auto) 1.66, Nucleated RBC % 0, Sodium 140, Potassium 3.6, Chloride 107, Carbon Dioxide 22.5, Anion Gap 10, BUN 16, Creatinine 0.70, Estim Creat Clear Calc 43.30 L, Est GFR (MDRD) Non-Af 88, BUN/Creatinine Ratio 22.9 H, Glucose 100 H, Calcium 8.6 Microbiology: Microbiology 05/26/25 04:45 Urine Catheter - Rod Urine Culture - 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 05/25/25 17:00 Blood Culture (Wb) - Right Forearm Blood Culture - Preliminary No growth in 48 hours. D/C Instructions Call your doctor if you observe: Fever of 101 or Higher, Shortness of breath, Dizziness, Fainting spells, Swelling in the ankles, Chest pain and Increased palpitations (irregular heartbeat) DC O2, CPAP, BIPAP Needs Home O2 Discharge instructions: No Meaningful Use Info Meaningful Use Meaningful Use Diagnoses (Choose all that apply): None applicable Discharge Plan Admission Admit Date/Time: 05/25/25 20:02 Attending Provider: Natanael Nowak Primary Care Provider: Terry Mckeon Consulting Providers: Suraj Garg Discharge Orders/Prescriptions Prescriptions: New fosfomycin tromethamine 3 gram packet 1 packet PO QODAY Qty: 3 0RF Continued tamsulosin 0.4 mg capsule 0.4 mg PO QDAY aspirin [Adult Low Dose Aspirin] 81 mg tablet,delayed release (DR/EC) 81 mg PO DAILY nitroglycerin 0.4 mg tablet, sublingual 0.4 mg SUBLINGUAL Q5M PRN (Reason: Chest Pain) Qty: 25 3RF prednisone 5 mg tablet 2 mg PO QDAY carvedilol 6.25 mg tablet 6.25 mg PO BID Qty: 60 3RF Rx Instructions: must administer with a meal/food oxybutynin chloride 5 mg tablet 5 mg PO DAILY melatonin 10 mg tablet 20 mg PO QHS diphenhydramine-acetaminophen [Tylenol PM Extra Strength] 25-500 mg tablet 2 tab PO QHS prednisone 1 mg tablet 2 mg PO DAILY simvastatin 20 mg tablet 20 mg PO QHS Qty: 90 3RF Entresto 24-26 mg tablet 1 tab PO BID Qty: 60 11RF Discontinued cephalexin 500 mg capsule 500 mg PO Q6 Qty: 28 0RF Referrals / Follow Up: Terry Mckeon DO [Primary Care Provider] - Within 1 Week Disposition Disposition (needs filled in before D/C Order can be placed): Assisted Living Charges/Coding Visit Charges Inpatient E&M: 44900 Disch Hosp >30min
== END 2025-05-28 16:24 | disposition home or self-care (01) | DRG 698 ==
LOC: ED 19:34 → MS3 20:27
PROVIDERS: Emergency Provider Emergency Medicine; PCP Family Medicine; Visit Provider Family Medicine
DX: T83.511A Infection and inflammatory reaction due to indwelling urethral catheter, initial encounter (principal); E43 Unspecified severe protein-calorie malnutrition; I50.22 Chronic systolic (congestive) heart failure; Z68.1 Body mass index [BMI] 19.9 or less, adult; N13.8 Other obstructive and reflux uropathy; I11.0 Hypertensive heart disease with heart failure; I25.10 Atherosclerotic heart disease of native coronary artery without angina pectoris; E78.5 Hyperlipidemia, unspecified; N39.0 Urinary tract infection, site not specified; Z79.82 Long term (current) use of aspirin; B96.20 Unspecified Escherichia coli [E. coli] as the cause of diseases classified elsewhere; Z95.5 Presence of coronary angioplasty implant and graft; R53.81 Other malaise; Z79.899 Other long term (current) drug therapy; N40.1 Benign prostatic hyperplasia with lower urinary tract symptoms; Y82.8 Other medical devices associated with adverse incidents
CPT/HCPCS: 36415; 71046; 80048; 80053; 81001; 83605; 85025; 85610; 85730; 87040; 87086; 87088; 93005; 97161; 97165; 97535; 97802; 99285; A4216

== ENCOUNTER → 2025-07-10 | Outpatient (CLI) | payer MEDICARE, SELFPAY ==
[2018-12-28 14:17] VITALS: BMI 22.3
[2025-07-10 17:55] LABS: Hematocrit 31.6 % (40-54); Hemoglobin 10.2 g/dL (13.0-16.5); Immature Granulocytes Count 0.010 X10^3/uL (0.0-0.0); Mean Corp Hgb Conc 32.3 g/dL (32-36); Mean Corpuscular Volume 91.9 fL (80-94); Mean Platelet Vol. 11.0 fl (6.2-12.0); NRBC Flagged by Analyzer 0 % (0-5); Platelet Count 306 K/mm3 (150-450); RBC Distribution Width CV 14.8 % (11.6-14.6); RBC Distribution Width SD 50.1 fl (35.1-43.9); Red Blood Count 3.44 M/mm3 (4.6-6.2); White Blood Count 7.2 K/mm3 (4.4-11.0)
[2025-07-10 19:05] LABS: AST(SGOT) 18 U/L (<=37); Alanine Aminotransfer ALT/SGPT 10 U/L (<=46); Albumin, Serum 3.9 g/dL (3.4-4.8); Alkaline Phosphatase 62 U/L (40-129); Anion Gap 11 (5-15); BUN 14 mg/dL (4-19); BUN/Creat Ratio 15.0 RATIO (10-20); Calcium,Total 9.1 mg/dL (7.6-11.0); Carbon Dioxide 25.6 mmol/L (21.0-32.0); Chloride 102 mmol/L (98-108); Ferritin 312 ng/mL (37-417); Globulin 3.5 g/dL (2.2-4.2); Glucose 115 mg/dL (70-99); Potassium 3.9 mmol/L (3.3-5.1); Pro- Brain NATRIURETIC PEPTIDE 1957 pg/mL (<=1800)
[2025-07-10 19:53] LABS: CRP 23.10 mg/L (0.0-3.0); Iron 43 ug/dL (65-175); Iron Binding Capacity,Unsat 176 ug/dL (228-428)
[2025-07-10 20:06] LABS: Iron Binding Capacity,Total 219 ug/dL (250-450)
[2025-07-12 04:07] LABS: Prealbumin 13 mg/dL (9-32)
== END | disposition home or self-care (01) ==
LOC: BFHLAB 15:10
PROVIDERS: PCP Family Medicine; Visit Provider Family Medicine
DX: D64.9 Anemia, unspecified (principal); I50.9 Heart failure, unspecified; E46 Unspecified protein-calorie malnutrition; M35.3 Polymyalgia rheumatica
CPT/HCPCS: 36415; 80053; 82728; 83540; 83550; 83880; 84134; 85025; 85652; 86140

== ENCOUNTER 2025-07-14 15:02 | Emergency (ER) | payer MEDICARE, SELFPAY ==
[2018-12-28 14:17] VITALS: BMI 22.3
[2025-07-14 15:03] VITALS: BP 115/74; PULSE 79; RESP 16; TEMP 36.8; O2SAT 98; BMI 18.8
[2025-07-14 15:04] VITALS: BP 104/52; PULSE 83; RESP 17; TEMP 36.8; O2SAT 99
--- NOTE | 2025-07-14 15:08 | EX.ED.DYSGE1 ---
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 General weakness Otitis media Elevated troponin Orchitis of right testicle Sepsis Implantable cardioverter-defibrillator (ICD) at end of battery life Essential hypertension Family history of CVA Family history of hypertension FH: sudden cardiac (SCD) History of placement of internal cardiac defibrillator HTN (hypertension) Old myocardial infarction Angina pectoris Cardiomyopathy, ischemic Chronic systolic congestive heart failure HLD (hyperlipidemia) Abnormal result of cardiovascular function study, unspecified High risk medication use Iron deficiency anemia Chest pain, precordial Atherosclerotic heart disease of [place] coronary artery without angina pectoris Dyspnea Fatigue Hypokalemia Benign prostatic hypertrophy SBO (small bowel obstruction) Home Medications ?Medication ?Instructions ?Recorded ?Last Taken ?Type aspirin 81 mg tablet,delayed 81 mg PO DAILY 05/23/24 05/25/25 History release (Adult Low Dose Aspirin) nitroglycerin 0.4 mg sublingual 0.4 mg sublingual Q5M PRN Chest 05/23/24 Unknown Rx tablet Pain #25 tabs tamsulosin 0.4 mg capsule 0.4 mg PO QDAY 05/23/24 05/25/25 History simvastatin 20 mg tablet 20 mg PO QHS for cholesterol #90 08/23/24 05/24/25 Rx TABLETS prednisone 5 mg tablet 2 mg PO QDAY 11/10/24 05/25/25 History sacubitril 24 mg-valsartan 26 mg 1 tab PO BID #60 tabs 03/14/25 05/25/25 Rx tablet (Entresto) diphenhydramine 25 2 tab PO QHS 04/28/25 05/24/25 History mg-acetaminophen 500 mg tablet (Tylenol PM Extra Strength) melatonin 10 mg tablet 20 mg PO QHS sleep 04/28/25 05/24/25 History oxybutynin chloride 5 mg tablet 5 mg PO DAILY 04/28/25 05/25/25 History prednisone 1 mg tablet 2 mg PO DAILY 05/25/25 05/25/25 History fosfomycin tromethamine 3 gram 1 packet PO QODAY 3 doses #3 ea 05/28/25 Unknown Rx oral packet carvedilol 6.25 mg tablet 6.25 mg PO BID #60 tabs 06/08/25 Unknown Rx Allergy/AdvReac Type Severity Reaction Status Date / Time morphine Allergy Intermediate Rash Verified 07/14/25 15:04 zolpidem tartrate (From AdvReac Intermediate CONFUSION Verified 07/14/25 15:04 Ambien) Family History Mother CAD (coronary artery disease) CVA (cerebral vascular accident) Myocardial infarction, Onset Age: 67 Hypertension Brother CAD (coronary artery disease) Hypertension Cancer Lung CA Myocardial infarction, Onset Age: 73 Father Myocardial infarction, Onset Age: 77 Daughter Cancer Son Myocardial infarction, Onset Age: 46 Other Cardiomyopathy, ischemic Chronic systolic congestive heart failure Fatigue General weakness Iron deficiency anemia Surgical History History of appendectomy History of cholecystectomy H/O dilation of urethra Hx of transurethral resection of prostate Presence of coronary artery bypass graft stent (~12/28/18) History of cardiac catheterization Hx of colonoscopy Hx of surgical procedure History of hernia repair History of prostate surgery History of left heart catheterization Social History household members: spouse Smoking Status: Never smoker alcohol intake: never substance use type: does not use caffeine: Yes Type: carbonated beverages and coffee Number of servings: 1 what type of physical activity do you participate in: none seatbelt use: always do you feel safe at home: Yes EXAM Physical Exam Const Vital Signs: 07/14/25 15:03 Temperature 98.3 F Temperature Source Oral Pulse Rate 79 Respiratory Rate 16 Blood Pressure 115/74 Blood Pressure Mean 87 Pulse Ox 98 Oxygen Delivery Method Room Air MDM MDM MDM Narrative Medical decision making narrative: HISTORY OF PRESENT ILLNESS: Chief complaint: During initial history I maintained good eye contact, was smiling and maintained a pleasant professional demeanor throughout. 89-year-old male history of significant for chronic indwelling Rod catheter, prostate surgery presents with concern for urine leakage denies Rod catheter. He notes the flow through his Rod catheter started to slow down yesterday. Denies abdominal pain fevers or vomiting. States this happened once before. Notes he typically gets his Rod placed monthly and he is essentially usp between Rod replacement. He notes some urine leaking out of his Rod catheter site as well. REVIEW OF SYSTEMS: Pertinent positives: Rod catheter malfunction Pertinent negatives: Abdominal pain, vomiting PHYSICAL EXAM: Nursing triage notes reviewed, Vital signs reviewed Constitutional: please see [facility] HENT: MMM Heart: Regular rate and rhythm, No murmurs, No rubs and No gallops, 2+ distal pulses (radial, femoral, posterior tibial) in all extremities Abdomen: Soft, there is no tenderness, no suprapubic tenderness or fullness, no rigidity, rebound or guarding, no obvious peritoneal signs, no palpable pulsatile abdominal masses, no auscultated abdominal bruit : No CVAT, Rod catheter in place, no sign of paraphimosis or phimosis, no sign of balanitis, no redness, no testicular tenderness. Extremities: No edema Neuro: No new focal neurological deficits, cranial nerves II through XII intact, 5/5 strength in all present extremities. Intact sensation to light touch in all present extremities, 2+ reflexes bilateral patella tendons. Skin: No rash or lesions noted MEDICAL DECISION MAKING: Chief Complaint: please see [facility] External records reviewed: Reviewed prior urology note from Dr. Barth. Underwent urethral stricture/prostatic stricture surgery in March 2024 Factors affecting care: As per [facility] Social determinants of health: none History obtained from others: none Consults: none [facility] Narrative: The patient was initially hemodynamically stable, afebrile and nontoxic-appearing. Exam without obvious abdominal discomfort. Patient was hemodynamically stable pleasant did not appear toxic I considered the following differential diagnosis: Urinary retention, Rod catheter obstruction Initially tried to flush the patient's Rod catheter to see if we can restore urine flow from sediment obstruction or clotting. This was performed by nursing. After flushing the patient's catheter nursing reported complete resolution of normal flow. Given a short period of retention will give oral antibiotics prophylactically. Will send urine sample and culture. Will give close outpatient urology follow-up The patient and/or family, caregivers express understanding. The patient and/or family, caregivers agrees with the plan. Shared decision making: I will have a discussion with the patient and or visitors regarding risk/benefits of further testing or admission. They will be made aware of of the risk/benefits inherent in this decision they will be given the opportunity to voice understanding. Total critical care time today provided was at least 0 minutes. This excludes separately billable procedures. Critical care time (if documented) is secondary to the patient having high probability of clinically significant/life threatening deterioration in the patient's condition which required my urgent intervention. Impression: 1. Rod catheter malfunction 2. History of chronic indwelling Rod catheter Dispo: Discharge home This note was generated with [employer] dictation software. It may contain incorrect words, spelling, and punctuation that were not noted in review of the chart prior to signing. Discharge Plan Triage Chief Complaint: Complaint ED Provider: Mir Arellano Dx/Rx/DC Orders Prescriptions: No Action tamsulosin 0.4 mg capsule 0.4 mg PO QDAY aspirin [Adult Low Dose Aspirin] 81 mg tablet,delayed release (DR/EC) 81 mg PO DAILY nitroglycerin 0.4 mg tablet, sublingual 0.4 mg SUBLINGUAL Q5M PRN (Reason: Chest Pain) Qty: 25 3RF prednisone 5 mg tablet 2 mg PO QDAY oxybutynin chloride 5 mg tablet 5 mg PO DAILY melatonin 10 mg tablet 20 mg PO QHS diphenhydramine-acetaminophen [Tylenol PM Extra Strength] 25-500 mg tablet 2 tab PO QHS prednisone 1 mg tablet 2 mg PO DAILY fosfomycin tromethamine 3 gram packet 1 packet PO QODAY Qty: 3 0RF simvastatin 20 mg tablet 20 mg PO QHS Qty: 90 3RF Entresto 24-26 mg tablet 1 tab PO BID Qty: 60 11RF carvedilol 6.25 mg tablet 6.25 mg PO BID Qty: 60 6RF Rx Instructions: must administer with a meal/food Primary Care Provider: Terry Mckeon Referrals: Terry Mckeon DO [Primary Care Provider] - Print Language: Cam[place]onian
[2025-07-14 15:40] VITALS: BP 104/52; PULSE 83; RESP 17; TEMP 36.8; O2SAT 99
--- OUTSIDE RECORDS SUMMARY | 2025-07-14 15:47 | XMS RPT_ITS | CCD ---
Author Organization [facility] Care Team Providers Care Board Design Engineer Name Role Phone TERESITA Grubbs, Elsy Denis Unavailable Unavailable TERESITA Grubbs, Elsy Denis Unavailable Unavailable Yaritza Gibson Primary Care Provider [phone] Pcp, No Primary Care Provider UnavailMerrill Desouza Primary Care Provider John Cleveland Primary Care Provider TERESITA Grubbs, Elsy Denis Unavailable Unavailable TERESITA Grubbs, Elsy Denis Unavailable Unavailable TERESITA Grubbs, Elsy Denis Unavailable Unavailable Leonora Viveros Unavailable Unavailable Leonora Viveros Unavailable Unavailable Maureen Forman Unavailable Unavailable Maureen Forman Unavailable Unavailable Malika LO, Abril Palomo Unavailable [phone] Robbi Abbott MD Unavailable Malika LO, Abril Palomo Unavailable [phone] TERESITA Grubbs, Elsy Denis Unavailable Unavailable TERESITA Grubbs, Elsy M Unavailable Unavailable TERESITA Grubbs, Elsy Denis Unavailable Unavailable TERESITA Thomas, Adelaida M Unavailable UnavailShailesh Gillette Primary Care Provider UnavailDr. Robbi Taylor Attending Provider [phone] Dr. Robbi Abbott Referring Provider [phone] Shailesh Mancini Referring Provider Unavailable Jarad EPPS, MORTEZA Galloway Attending Provider Shailesh Mancini Primary Care Provider UnavailDr. Robbi Taylor Attending Provider [phone] Dr. Shailesh Mancini Primary Care Provider Dr. Robbi Abbott Attending Provider Dr. Robbi Abbott Referring Provider Shailesh Mancini Referring Provider Unavailable Live, Dr. Cash Primary Care Provider Dr. Shailesh Mancini Referring [...] Dr. Zacarias Valdes Referring Provider Dr. Timoteo Mullnis Referring Provider Dr. John Noel Referring Provider Andrés CAN CUTTER, CAN CUTTER-C Cynthia Attending Provider ASMITA ZAMBRANO W Referring Unavailable JOHN NOEL A Primary Care Unavailable ASMITA ZAMBRANO W Admitting Unavailable KENYA, ASMITA W Attending Unavailable JOHN NOEL A Primary Care Unavailable Sadie DO, John A Primary Care Provider Dr. John Noel DO Primary Care Provider Dr. John Noel DO Referring Provider Susanna PASCUAL, Dr. Mahmood Attending Provider Susanna PASCUAL, Dr. Mahmood Referring Provider Sadie MARCUS, Dr. Stewart Attending Provider Clarisa MARCUS, Dr. Mahmood Attending Provider Clarisa MARCUS, Dr. Mahmood Emergency Provider Sadie MARCUS, Dr. Stewart Primary Care Provider Sadie MARCUS, Dr. Stewart Attending Provider Sadie MARCUS, Dr. Stewart Referring Provider Andrés CAN CUTTER-C, Cynthia Attending Provider CHERYL SUTHERLAND Attending Provider Clarisa MARCUS, Dr. Mahmood Emergency Provider Phil PASCUAL, Dr. Whiting Emergency Provider Dr. Manisha Varela MD Admit Provider Dr. Manisha Varela MD Attending Provider Dr. Henok Villarreal MD Emergency Provider Dr. Manisha Varela MD Admit Provider Dr. Manisha Varela MD Other Provider Dr. Cheryl Ochoa DO Attending Provider Dr. Cheryl Ochoa DO Other Provider Susanna PASCUAL, Dr. Mahmood Attending Provider Clarisa MARCUS, Dr. Mahmood Attending Provider Susanna PASCUAL, Dr. Mahmood Referring Provider Byron PASCUAL, Dr. Raymundo Emergency Provider Forest MARCUS, Dr. Ruelas Admit Provider Forest MARCUS, Dr. Ruelas Attending Provider Forest MARCUS, Dr. Ruelas Other Provider Eliu PASCUAL, Dr. Natanael Schrader Attending Provider Forest DO, Dr. Ruelas Attending Provider Eliu PASCUAL, Dr. Natanael Schrader Other Provider Sadie MARCUS, Dr. Stewart Primary Care Provider Sadie MARCUS, Dr. Stewart Attending Provider SADIE, JOHN A Primary Care Unavailable ABOU GHAYDA, JIAN Referring Unavailable SADIE, JOHN A Primary Care Unavailable ZAMBRANOASMITA Attending Unavailable SADIE, JOHN A Primary Care [...] Primary Care Unavailable CHERYL SUTHERLAND Attending Unavailable ABOU GHAYDA, JIAN Referring Unavailable SADIE, JOHN A Primary Care Unavailable SADIE, JOHN A Primary Care Unavailable Sadie, John Primary Care Unavailable Susanna, Timoteo Attending Unavailable Susanna, Ben Bolt Referring Unavailable Sadie, John Primary Care Unavailable Susanna, Ben Bolt Referring Unavailable Susanna, Ben Bolt Attending Unavailable Sadie, John Referring Unavailable Sadie, John Primary Care Unavailable Cynthia Bowen Attending Unavailable Sadie, John Primary Care Unavailable Sadie, John Referring Unavailable Susanna, Ben Bolt Attending Unavailable Manisha Varela Consulting Unavailable Manisha Varela Admitting Unavailable Sadie, John Primary Care Unavailable Cheryl Ochoa Attending Unavailable Sadie, John [...] Unavailable Susanna, Timoteo Attending Unavailable Sadie, John Attending Unavailable Sadie, John Primary Care Unavailable Sadie, John Referring Unavailable Sadie, John Primary Care Unavailable Susanna, Ben Bolt Attending Unavailable Manisha Varela Admitting Unavailable Sadie, John Primary Care Unavailable Manisha Varela Consulting Unavailable Cheryl Ochoa Attending Unavailable Cheryl Ochoa Consulting Unavailable Natanael Nowak Attending Unavailable Jopploida, Suraj Consulting Unavailable Jopperi, Suraj Admitting Unavailable Sadie, John Primary Care Unavailable Natanael Nowak Consulting Unavailable Sadie, John Primary Care Unavailable Jopperi, Suraj Attending Unavailable Avery, Manisha Attending Unavailable Sadie, John Primary Care Unavailable CODY GALDAMEZ Attending Unavailable Sadie, John Primary Care Unavailable Sadie, John Attending Unavailable Sadie, John Primary Care Unavailable Sadie, John Attending Unavailable Sadie, John Primary Care Unavailable Natanael Nowak Attending Unavailable Jopperi, Suraj Admitting Unavailable Jopperi, Suraj Consulting Unavailable Sadie, John Primary Care Unavailable Sadie, John Attending Unavailable Allergies Allergy Classification Reported Allergen(s) Allergy Type Date of Onset Reaction(s) Facility Opioid Agonists (1 source) Morphine Drug Allergy 3 [facility] (20 sources) Morphine; Translations: [MORPHINE] Drug Allergy 3 Rash [facility] (20 sources) zolpidem; Translations: [zolpidem tartrate] Drug Allergy 1 CONFUSION [facility] (15 sources) zolpidem; Translations: [ZOLPIDEM] Drug Allergy 9 Hallucinations, Unknown Hospitals 2 Repository (1 source) Morphine Drug Allergy 5 [facility] Repository Medications Current Medications Medication Drug Class(es) [...] One tablet by mouth daily DIPHENHYDRAMINE-APAP (SLEEP) [id number] Robbi Abbott MD aspirin 81 mg delayed [...] TBEC One tablet by mouth daily ASPIRIN [id number] Abril Daly RN Start: 06-19-2005 take 1 tablet by mayda th once daily ASPIRIN 81 MG TABS One tablet by mouth daily ASPIRIN [id number] Leonora Viveros Comment on above: Take one [...] sources) alpha-Adrenergic Mona, beta-Adrenergic Mona Start: 11-10-19 End: 06-08-20 take 1 tablet by mouth twice daily at mealtime Carvedilol 6.25 mg tablet Active 6.25 mg PO TWICE A DAY 60 June 08, 2025 4:36pm must administer with a meal/food Start: 06-17-2023 [...] TWICE A DAY September 04, 2021 1:11pm May 5th, 2022 1:22pm bp/heart Start: 04-17-2019 End: 09-04-2021 take 1 tablet by mouth twice daily Carvedilol 6.25 mg tablet Discontinued 6.25 mg PO TWICE A DAY 180 February 11, 2021 1:28pm September 04, 2021 2:14pm bp/heart Start: 08-10-2012 take 0.5 tablet by m outh twice daily COREG 25 MG TABS 1/2 tablet by mouth twice daily CARVEDILOL [id number] Robbi Abbott MD Start: 05-20-2012 take 1 tablet by mayda th twice daily COREG 25 MG TABS One tablet by mouth twice daily CARVEDILOL [id number] Robbi Abbott MD Start: 08-04-2010 End: 04-17-2019 [...] 2018 1:00am December 29, 2018 9:14am antibiotic fosfomycin 3000 mg powder for oral solution (2 sources) Start: 05-28-2025 Fosfomycin Tro methamine 3 gram packet Active 1 NMA PO EVERY OTHER DAY 3 May 28, 2025 12:00am HYDROmorphone (3 sources) Opioid Agonist Start: 07-25-2024 0.5 mg, intrav enous, Every 5 min PRN, pain severe (7-10), [...] Took 11/6 dose in hospital. Next dose 11 melatonin 10 mg oral tablet (7 sources) Start: 04-28-2025 take 2 tablets by [...] 911. oxybutynin chloride 5 mg oral tablet (20 sources) Cholinergic Muscarinic Antagonist Start: 04-28-2025 take 1 tablet by mouth once daily Oxybutynin Chloride 5 mg tablet Active 5 mg PO DAILY April 28, 2025 12:00am Start: 12-06-2024 End: 06-04-2025 take 1 tablet [...] 1-6 LPM, Keep O2 Sat Above: 92% polyethylene glycol 3350 60071 mg powder for oral solution (13 sources) Osmotic Laxative Start: 03-29-2024 polyethylene glycol (Glycolax, Miralax) 17 gram packet take 1 packet (17 GMS) twice a day if needed for constipation for 5 days 03/29/2024 Active predniSONE 1 mg oral tablet (13 sources) Start: 05-25-2025 take 2 tablets by mouth once daily Prednisone 1 mg tablet Active 2 mg PO DAILY May 25, 2025 12:00am Start: 11-10-2024 take 2 mg by mouth once daily Prednisone 5 mg tablet Active 2 mg PO daily November 10, 2024 1:00am Start: 11-10-2024 take 1 tablet by mayda th once daily Prednisone 5 mg tablet Active 5 mg PO daily November 10, 2024 1:00am promethazine (Phenergan) 12.5 mg in sodium chloride 0.9% 50 mL IV (1 source) Start: 07-25-2024 12.5 mg, intra venous, Administer over 15 Minutes, Once as needed, nausea/vomiting, first line, Nausea/vomiting, second line, Starting on Wed07/25/24 at 1138, For 1 dose, Recovery (only) sacubitril 24 mg / valsartan 26 mg oral tablet (20 sources) Angiotensin 2 Receptor Mona Start: 03-12-2025 End: 03-14-2025 Sacubitril-Valsartan (Entresto) 24-26 mg tablet Active 1 {tbl} [...] mg / clavulanate 125 mg oral tablet (20 sources) Penicillin-class Antibacterial Start: 12-27-2022 End: 02-25-2023 Amoxicillin-Pot Clavulanate 875-125 mg tablet Discontinued 1 {tbl} PO TWICE A DAY 20 December 27, 2022 1:00am February 25, 2023 2:39pm Start: 12-27-2022 End: 02-25-2023 take 1 tablet by mouth twice daily Amoxicillin-Pot Clavulanate Discontinued 1 TABLET PO TWICE A DAY December 27, 2022 12:00am February 25, 2023 1:39pm cephalexin 500 mg oral capsule (20 sources) Cephalosporin Antibacterial Start: 04-27-2025 End: 05-28-2025 take 1 capsule by mouth every six hours Cephalexin 500 mg capsule Discontinued 500 mg PO EVERY 6 HOURS 28 0 April 27, 2025 12:00am May 28, 2025 2:20pm Start: 01-26-2020 End: 04-17-2020 take 1 capsule [...] d aily. diazePAM 2 mg oral tablet (10 sources) Benzodiazepine Start: 03-25-2024 End: 05-23-2024 take 1 tablet by mouth twice daily as needed for anxiety Diazepam (Valium) 2 mg tablet Discontinued 2 mg PO TWICE A DAY as needed for anxiety 10 March 25, 2024 12:00am May 23, 2024 2:25pm Vertigo Dizziness and giddiness 2 ml dupilumab 150 mg/ml auto-injector (10 sources) Interleukin-4 Receptor alpha Antagonist Start: 05-23-2024 End: 05-25-2025 Dupilumab 300 mg/2 mL pen injector Discontinued 300 mg SC every 2 weeks May 23, 2024 12:00am May 25, 2025 4:18pm DUPIXANT (13 sources) Start: 10-11-2023 End: 05-23-2024 DUPIXANT Discontinued [...] tablet Discontinued 20 mg PO DAILY 30 February 17, 2022 11:43am March 06, 2022 [...] tablet Discontinued 20 mg PO daily 90 April 14, 2018 5:48pm May 24, 2018 2:33pm Start: 10-22-2017 End: 04-14-2018 take 1 tablet by mouth once Furosemide 40 mg tablet Di scontinued 40 mg PO ONCE 90 October 22, 2017 4:00pm April 14, 2018 5:48pm Start: 08-04-2010 End: 10-22-2017 take 1 tablet by mouth once daily as needed Furosemide 20 MG tablet Discontinued 20 mg PO DAILY as needed for Swelling March 05, 2016 12:00am October 22, 2017 4:00pm gabapentin 100 mg oral capsule (10 sources) Anti-epileptic Agent Start: 11-10-2024 End: 04-28-2025 [...] daily ISOSORBIDE MONONITRA TE ER 30 MG [id number] One tablet by mouth daily (Imdur) STOP ISOSORBIDE MONONITRATE [id number] Abril Dupree PA-C isosorbide dinitrate 30 mg [...] One tablet by mouth twice daily LISINOPRIL [id number] Robbi Abbott MD Start: 03-06-2009 End: 07-17-2013 take 1 tablet by mouth once daily LISINOPRIL 10 MG TABS One tablet by mouth daily LISINOPRIL [id number] Robbi Abbott MD Comment on above: Take [...] 12:00am April 28, 2025 5:13pm Start: 12-16-2024 End: 05-25-2025 take 1 tablet by mouth every eight hours as needed for nausea Ondansetron 4 mg tablet,disintegrating Discontinued 4 mg PO EVERY 8 HOURS NEEDED as needed for Nausea 10 0 December 16, 2024 1:00am May 25, 2025 4:18pm Start: 07-25-2024 End: 07-25-2024 4 mg, intravenous, [...] enzyne oxyCODONE hydrochloride 5 mg oral tablet (10 sources) Opioid Agonist Start: 03-22-2024 End: 05-23-2024 [...] One tablet by mouth daily PANTOPRAZOLE SODIUM [id number] Rain Segovia NP Start: 06-04-2011 End: 10-23-2011 [...] Take by mouth. TAKE (1) ONCE DAILY phenazopyridine hydrochloride 200 mg oral tablet (16 sources) Start: End: take 1 tablet by mouth three times daily Phenazopyridine (Pyridium) 200 mg tablet Discontinued 200 mg PO THREE TIMES A DAY 5 0 April 27, 2025 12:00am May 25, 2025 4:19pm Start: 07-25-2024 take 1 tablet by mayda three times daily as needed for muscle spasms phenazopyridine (Pyridium) 200 mg tablet Indications: Urinary retention Take 1 tablet (200 mg) by mouth 3 times a day as needed for bladder spasms. 30 tablet 07/25/2024 Active potassium chloride 10 meq extended release oral [...] Two tablets by mouth daily POTASSIUM CHLORIDE [id number] Leonora Viveros 12 hr ranolazine 500 mg extended release oral tablet (20 sources) Anti-anginal Start: 12-21-2014 take 1 tablet by mouth twice daily RANEXA 500 MG [id number] One tablet by mouth twice daily RANOLAZINE [id number] Kasia Nieto RN Start: 08-04-2010 End: 05-02-2012 take 1 tablet by mouth twice daily RANEXA 500 MG [id number] One tablet by mouth twice daily RANOLAZINE [id number] Kasia Nieto RN simvastatin 20 mg oral [...] [Malignant tumor of prostate] Onset: 4 Chronic Complication of device; implant or graft (7 sources) Catheter-associated urinary tract infection; Translations: [Infection and inflammatory reaction due to indwelling urethral catheter, initial encounter] Onset: 5 05-25-2025 Episodic Conditions associated with dizziness or vertigo (20 [...] FFR of RCA negative per DJN @ [facility] Deficiency and other anemia (20 sources) Iron deficiency anemia; Translations: [Iron deficiency anemia, unspecified] Onset: 1 01-13-2011 Episodic Deficiency and other anemia (16 sources) Anemia; Translations: [Anemia, unspecified] 04-28-2025 Episodic [...] Onset: 2 11-14-2014 Episodic Nausea and vomiting (20 sources) Nausea and vomiting; Translations: [Nausea with vomiting, unspecified] Onset: 5 04-02-2024 Episodic Nonspecific chest pain (20 sources) Precordial pain; Translations: [Precordial pain] Onset: 1 01-13-2011 Episodic Nutritional deficiencies (7 sources) Deficiency of macronutrients; Translations: [Unspecified protein-calorie malnutrition] Onset: 5 05-25-2025 Chronic Open wounds of extremities (20 sources) Absent fingertips; 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, initial encounter] 01-27-2020 Chronic Other aftercare (20 sources) Drug therapy finding; Translations: [Other halfway (current) drug therapy] 01-31-2019 Episodic Other aftercare (9 sources) Patient encounter status; Translations: [Encounter for therapeutic drug level monitoring] 07-09-2023 Episodic Other aftercare (10 sources) Long-term current use of diuretic; Translations: [Encounter for therapeutic drug level monitoring] 07-09-2023 Episodic Other circulatory disease (20 sources) History of cardiomyopathy; Translations: [Personal history of other diseases of the circulatory system] 01-14-2023 Episodic Other circulatory disease (16 sources) H/O: heart disorder; Translations: [Personal history [...] of intestine] 03-07-2013 Episodic Other gastrointestinal disorders (20 sources) Antibiotic-associated diarrhea; Translations: [Toxic gastroenteritis and colitis] 01-14-2023 Episodic Other gastrointestinal disorders (10 sources) Constipation; Translations: [Constipation, unspecified] 04-07-2024 Episodic Other gastrointestinal disorders (9 sources) Diarrhea; Translations: [Diarrhea, unspecified] 04-27-2025 Episodic [...] unspecified; Translations: [Other respiratory abnormalities] Episodic Other lower respiratory disease (6 sources) Cough; Translations: [Acute cough] 05-25-2025 Episodic Other male genital disorders (10 sources) H/O: male genital disorder; Translations: [Personal history of other diseases of male genital organs] 04-07-2024 Episodic Other nervous system disorders (17 sources) Metabolic encephalopathy; Translations: [Metabolic encephalopathy] 09-04-2023 [...] cardiac ] 01-31-2019 Episodic Residual codes; unclassified (19 sources) Other specified health status; Translations: [Failure [...] [Urinary tract infection, site not specified] Onset: 09-04-2023 Episodic Past or Other Problems Problem [...] FFR of RCA negative per [facility] @ [facility] Esophageal disorders (1 source) Esophagitis; Translations: [...] Test Name Value Interpretation Reference Range Facility Prealbumin [id number] Prealbumin [Mass/Vol] 13 mg/dL Normal 9-32 [facility] Comment on above: Result Comment: Perf ormed at: CB - [facility] [address] [id number] Senior Clinical Research Scientist: Toi Ponce PhD, Phone: [phone] Performed By: #### L 501.9071, L3300.4900, L503.7505, L500.4050, L503.6550, L101.9900, L503.6030, L100.0100 #### [facility] [address] [place], [address] CBC W/Diff, Automatedon 09-0 Absolute Lymph 2.21 X10 3/uL Normal 0.83-4.51 [facility] Comment on above: Performed By: #### L [id number], L3300.6400, L503.7505, L500.4050, L503.6550, L101.9900, L503.6030, L100.0100 #### [facility] [address] [place], [address] Absolute Neut 4.2 X10 3/uL Normal 2.0-7.7 [facility] Comment on above: Performed By: #### L [id number], L3300.6400, L503.7505, L500.4050, L503.6550, L101.9900, L503.6030, L100.0100 #### [facility] [address] [place], [address] Basophils/100 WBC (Bld) 0.4 % Normal 0-1 [facility] Comment on above: Performed By: #### L [id number], L3300.6400, L503.7505, L500.4050, L503.6550, L101.9900, L503.6030, L100.0100 #### [facility] [address] [place], [address] Eosinophils/100 WBC (Bld) 1.0 % Normal 0-5 [facility] Comment on above: Performed By: #### L [id number], L3300.6400, L503.7505, L500.4050, L503.6550, L101.9900, L503.6030, L100.0100 #### [facility] [address] [place], [address] Erythrocyte distribution width (RBC) [Ratio] 14.8 % High 11.6-14.6 [facility] Comment on above: Performed By: #### L 501.6710, L3300.6400, L503.7505, L500.4050, L503.6550, L101.9900, L503.6030, L100.0100 #### [facility] [address] [place], [address] Hematocrit (Bld) [Volume fraction] 31.6 % Low 40-54 [facility] Comment on above: Performed By: #### L 501.6710, L3300.6400, L503.7505, L500.4050, L503.6550, L101.9900, L503.6030, L100.0100 #### [facility] [address] [place], [address] Hemoglobin (Bld) [Mass/Vol] 10.2 g/dL Low 13.0-16.5 [facility] Comment on above: Performed By: #### L 501.6710, L3300.6400, L503.7505, L500.4050, L503.6550, L101.9900, L503.6030, L100.0100 #### [facility] [address] [place], [address] IG% 0.100 Normal 0.0-0.9 [facility] Comment on above: Result Comment: IG% - Immature Granulocytes (promyelocytes, myelocytes and metamyelocytes) > 1% indicates that a LEFT SHIFT is Present. Performed By: #### L 501.6710, L3300.6400, L503.7505, L500.4050, L503.6550, L101.9900, L503.6030, L100.0100 #### [facility] [address] [place], [address] Lymphocytes/100 WBC (Bld) 30.8 % Normal 19-41 [facility] Comment on above: Performed By: #### L 501.6710, L3300.6400, L503.7505, L500.4050, L503.6550, L101.9900, L503.6030, L100.0100 #### [facility] [address] [place], [address] MCH (RBC) [Entitic mass] 29.7 pg Normal 27.0-32.0 [facility] Comment on above: Performed By: #### L 501.6710, L3300.6400, L503.7505, L500.4050, L503.6550, L101.9900, L503.6030, L100.0100 #### [facility] [address] [place], [address] MCHC (RBC) [Mass/Vol] 32.3 g/dL Normal 32-36 [facility] Comment on above: Performed By: #### L 501.6710, L3300.6400, L503.7505, L500.4050, L503.6550, L101.9900, L503.6030, L100.0100 #### [facility] [address] [place], [address] MCV (RBC) [Entitic vol] 91.9 fL Normal 80-94 [facility] Comment on above: Performed By: #### L 501.6710, L3300.6400, L503.7505, L500.4050, L503.6550, L101.9900, L503.6030, L100.0100 #### [facility] [address] [facility] [place], [address] Monocytes/100 WBC (Bld) 9.9 % Normal 0-10 [facility] Comment on above: Performed By: #### L 501.6710, [id number], L503.7505, L500.4050, L503.6550, L101.9900, L503.6030, L100.0100 #### [facility] [address] [place], [address] Neutrophils/100 WBC (Bld) 57.8 % Normal 47-70 [facility] Comment on above: Performed By: #### L 501.6710, [id number], L503.7505, L500.4050, L503.6550, L101.9900, L503.6030, L100.0100 #### [facility] [address] [place], [address] Nucleated RBC (Bld) [#/Vol] 0 10*3/uL Normal 0-5 [facility] Comment on above: Performed By: #### L 501.6710, L3300.6400, L503.7505, L500.4050, L503.6550, L101.9900, L503.6030, L100.0100 #### [facility] [address] [place], [address] Platelet mean volume (Bld) [Entitic vol] 11.0 fL Normal 6.2-12.0 [facility] Comment on above: Performed By: #### L 501.6710, L3300.6400, L503.7505, L500.4050, L503.6550, L101.9900, L503.6030, L100.0100 #### [facility] [address] [place], [address] Platelets (Bld) [#/Vol] 306 10*3/uL Normal 150-450 [facility] Comment on above: Performed By: #### L 501.6710, L3300.6400, L503.7505, L500.4050, L503.6550, L101.9900, L503.6030, L100.0100 #### [facility] [address] [place], [address] RBC (Bld) [#/Vol] 3.44 10*6/uL Low 4.6-6.2 [facility] Comment on above: Performed By: #### L 501.6710, L3300.6400, L503.7505, L500.4050, L503.6550, L101.9900, L503.6030, L100.0100 #### [facility] [address] [place], [address] RDW SD 50.1 fl High 35.1-43.9 [facility] Comment on above: Performed By: #### L 501.6710, L3300.6400, L503.7505, L500.4050, L503.6550, L101.9900, L503.6030, L100.0100 #### [facility] [address] [place], [address] WBC (Bld) [#/Vol] 7.2 10*3/uL Normal 4.4-11.0 [facility] Comment on above: Performed By: #### L 501.6710, L3300.6400, L503.7505, L500.4050, L503.6550, L101.9900, L503.6030, L100.0100 #### [facility] [address] [place], [address] CRPon 07-10-2025 C-REACTIVE PROT 23.10 mg/L High 0.0-3.0 [facility] Comment on above: Performed By: #### L 501.6710, L3300.6400, L503.7505, L500.4050, L503.6550, L101.9900, L503.6030, L100.0100 #### [facility] Laboratory [address] [place], [address] Comprehensive Metabolic Prof ilon 07-10-2025 Albumin [Mass/Vol] 3.9 g/dL Normal 3.4-4.8 [facility] Comment on above: Performed By: #### L 501.6710, L3300.6400, L503.7505, L500.4050, L503.6550, L101.9900, L503.6030, L100.0100 #### [facility] Laboratory [address] [place], [address] Albumin/Globulin [Mass ratio] 1.1 {ratio} Normal 0.9-2.4 [facility] Comment on above: Performed By: #### L 501.6710, L3300.6400, L503.7505, L500.4050, L503.6550, L101.9900, L503.6030, L100.0100 #### [facility] Laboratory [address] [place], [address] ALK PHOS 62 U/L Normal 40-129 [facility] Comment on above: Performed By: #### L 501.6710, L3300.6400, L503.7505, L500.4050, L503.6550, L101.9900, L503.6030, L100.0100 #### [facility] Laboratory [address] [place], [address] ALT [Catalytic activity/Vol] 10 U/L Normal <=46 [facility] Comment on above: Performed By: #### L 501.6710, L3300.6400, L503.7505, L500.4050, L503.6550, L101.9900, L503.6030, L100.0100 #### [facility] Laboratory [address] [place], [address] AST [Catalytic activity/Vol] 18 U/L Normal <=37 [facility] Comment on above: Performed By: #### L 501.6710, L3300.6400, L503.7505, L500.4050, L503.6550, L101.9900, L503.6030, L100.0100 #### [facility] Laboratory [address] [place], [address] Bilirubin [Mass/Vol] 0.65 mg/dL Normal 0.00-1.30 [facility] Comment on above: Performed By: #### L 501.6710, L3300.6400, L503.7505, L500.4050, L503.6550, L101.9900, L503.6030, L100.0100 #### [facility] Laboratory [address] [place], [address] BUN/CRE 15.0 RATIO Normal 10-20 [facility] Comment on above: Performed By: #### L 501.6710, L3300.6400, L503.7505, L500.4050, L503.6550, L101.9900, L503.6030, L100.0100 #### [facility] Laboratory [address] [place], [address] Calcium [Mass/Vol] 9.1 mg/dL Normal 7.6-11.0 [facility] Comment on above: Performed By: #### L 501.6710, L3300.6400, L503.7505, L500.4050, L503.6550, L101.9900, L503.6030, L100.0100 #### [facility] Laboratory [address] [place], [address] Chloride [Moles/Vol] 102 mmol/L Normal 98-108 [facility] Comment on above: Performed By: #### L 501.6710, L3300.6400, L503.7505, L500.4050, L503.6550, L101.9900, L503.6030, L100.0100 #### [facility] Laboratory [address] [place], [address] CO2 [Moles/Vol] 25.6 mmol/L Normal 21.0-32.0 [facility] Comment on above: Performed By: #### L 501.6710, L3300.6400, L503.7505, L500.4050, L503.6550, L101.9900, L503.6030, L100.0100 #### [facility] Laboratory [address] [place], [address] Creatinine [Mass/Vol] 0.94 mg/dL Normal 0.70-1.20 [facility] Comment on above: Performed By: #### L 501.6710, L3300.6400, L503.7505, L500.4050, L503.6550, L101.9900, L503.6030, L100.0100 #### [facility] Laboratory [address] [place], [address] GAP 11 Normal 5-15 [facility] Comment on above: Performed By: #### L 501.6710, L3300.6400, L503.7505, L500.4050, L503.6550, L101.9900, L503.6030, L100.0100 #### [facility] Laboratory [address] [place], [address] GFR/1.73 sq M.predicted among non-blacks MDRD (S/P/Bld) [Vol rate/Area] 78 mL/min/{1.73_m2} Normal >60 [facility] Comment on above: Result Comment: mL/m in/1.73m2 CKD-EPI Creatinine Equation (2020) Performed By: #### L 501.6710, L3300.6400, L503.7505, L500.4050, L503.6550, L101.9900, L503.6030, L100.0100 #### [facility] Laboratory [address] [place], [address] Globulin (S) [Mass/Vol] 3.5 g/dL Normal 2.2-4.2 [facility] Comment on above: Performed By: #### L 501.6710, L3300.6400, L503.7505, L500.4050, L503.6550, L101.9900, L503.6030, L100.0100 #### [facility] Laboratory [address] [place], [address] Glucose [Mass/Vol] 115 mg/dL High 70-99 [facility] Comment on above: Performed By: #### L 501.6710, L3300.6400, L503.7505, L500.4050, L503.6550, L101.9900, L503.6030, L100.0100 #### [facility] Laboratory [address] [place], [address] Potassium [Moles/Vol] 3.9 mmol/L Normal 3.3-5.1 [facility] Comment on above: Performed By: #### L 501.6710, L3300.6400, L503.7505, L500.4050, L503.6550, L101.9900, L503.6030, L100.0100 #### [facility] Laboratory [address] [place], [address] Sodium [Moles/Vol] 139 mmol/L Normal 133-145 [facility] Comment on above: Performed By: #### L 501.6710, L3300.6400, L503.7505, L500.4050, L503.6550, L101.9900, L503.6030, L100.0100 #### [facility] Laboratory [address] [place], [address] T PROT 7.3 g/dL Normal 5.9-8.4 [facility] Comment on above: Performed By: #### L 501.6710, L3300.6400, L503.7505, L500.4050, L503.6550, L101.9900, L503.6030, L100.0100 #### [facility] Laboratory [address] [place], [address] Urea nitrogen [Mass/Vol] 14 mg/dL Normal 4-19 [facility] Comment on above: Performed By: #### L 501.6710, L3300.6400, L503.7505, L500.4050, L503.6550, L101.9900, L503.6030, L100.0100 #### [facility] Laboratory [address] [place], [place], [address] Erythrocyte Sed Rateon 07-10 SED RATE 29 mm/hr High 0-20 [facility] Comment on above: Performed By: #### L 501.6710, L3300.6400, L503.7505, L500.4050, L503.6550, L101.9900, L503.6030, L100.0100 #### [facility] Laboratory [address] [place], [address] Ferritinon 07-10-2025 Ferritin [Mass/Vol] 312 ng/mL Normal 37-417 [facility] Comment on above: Performed By: #### L 501.6710, L3300.6400, L503.7505, L500.4050, L503.6550, L101.9900, L503.6030, L100.0100 #### [facility] Laboratory [address] [place], [place], [address] Iron+Iron Binding Capacityon 07-10-2025 TIBC 219 ug/dL Low 250-450 [facility] Comment on above: Performed By: #### L 501.6710, L3300.6400, L503.7505, L500.4050, L503.6550, L101.9900, L503.6030, L100.0100 #### [facility] Laboratory [address] [place], [address] Pro- Brain NATRIURETIC PEPTI Amadou 07-10-2025 Natriuretic peptide B (Bld) [Mass/Vol] 1957 pg/mL High <=1800 [facility] Comment on above: Result Comment: Hear t Failure Unlikely: < 300 pg/mL Heart Failure Likely < 50 Years: > 450 pg/mL 50-75 Years: > 900 pg/mL >75 Years: > 1800 pg/mL Performed By: #### L 501.6710, L3300.6400, L503.7505, L500.4050, L503.6550, L101.9900, L503.6030, L100.0100 #### [facility] Laboratory [address] [place], [address] Absolute lymphocyte countOrd ered By: Natanael Nowak on 05-28-2025 Lymphocytes Auto (Unsp spec) [#/Vol] 1.66 10*3/uL 0.83-4.51 [facility] Absolute neutrophil countOrd ered By: Natanael Nowak on 05-28-2025 Neutrophils (Bld) [#/Vol] 2.5 10*3/uL 2.0-7.7 [facility] Anion gap in Serum or Plasma Ordered By: Natanael Nowak on 05-28-2025 Anion gap [Moles/Vol] 10 mmol/L 5-15 [facility] Automated lymphocyte count a s percentage of total leukocytesOrdered By: Natanael Nowak on 05-28-2025 Lymphocytes/100 WBC Auto (Unsp spec) 34.2 % - [facility] BUN/creatinine ratioOrdered By: Natanael Nowak on 05-28-2025 Urea nitrogen/Creatinine [Mass ratio] 22.9 mg/mg High 10- [facility] Basic Metabolic Profile (BMP )on 05-28-2025 BUN/CRE 22.9 RATIO High - [facility] Comment on above: Performed By: #### L 501.6710, L3300.6400, L503.7505, L500.4050, L503.6550, L101.9900, L503.6030, L100.0100 #### [facility] Laboratory [address] [place], [address] Calcium [Mass/Vol] 8.6 mg/dL Normal 7.6-11.0 [facility] Comment on above: Performed By: #### L 501.6710, L3300.6400, L503.7505, L500.4050, L503.6550, L101.9900, L503.6030, L100.0100 #### [facility] Laboratory [address] [place], [address] Chloride [Moles/Vol] 107 mmol/L Normal 98-108 [facility] Comment on above: Performed By: #### L 501.6710, L3300.6400, L503.7505, L500.4050, L503.6550, L101.9900, L503.6030, L100.0100 #### [facility] Laboratory [address] [place], [address] CO2 [Moles/Vol] 22.5 mmol/L Normal 21.0-32.0 [facility] Comment on above: Performed By: #### L 501.6710, L3300.6400, L503.7505, L500.4050, L503.6550, L101.9900, L503.6030, L100.0100 #### [facility] Laboratory [address] [place], [address] Creatinine [Mass/Vol] 0.70 mg/dL Normal 0.70-1.20 [facility] Comment on above: Performed By: #### L 501.6710, L3300.6400, L503.7505, L500.4050, L503.6550, L101.9900, L503.6030, L100.0100 #### [facility] Laboratory [address] [place], [address] ECRCL 43.30 ml/min Low 50-250 [facility] Comment on above: Performed By: #### L 501.6710, L3300.6400, L503.7505, L500.4050, L503.6550, L101.9900, L503.6030, L100.0100 #### [facility] Laboratory [address] [place], [address] GAP 10 Normal 5-15 [facility] Comment on above: Performed By: #### L 501.6710, L3300.6400, L503.7505, L500.4050, L503.6550, L101.9900, L503.6030, L100.0100 #### [facility] Laboratory [address] [place], [address] GFR/1.73 sq M.predicted among non-blacks MDRD (S/P/Bld) [Vol rate/Area] 88 mL/min/{1.73_m2} Normal >60 [facility] Comment on above: Result Comment: mL/m in/1.73m2 CKD-EPI Creatinine Equation (2020) Performed By: #### L 501.6710, L3300.6400, L503.7505, L500.4050, L503.6550, L101.9900, L503.6030, L100.0100 #### [facility] Laboratory [address] [place], [address] Glucose [Mass/Vol] 100 mg/dL High 70-99 [facility] Comment on above: Performed By: #### L 501.6710, L3300.6400, L503.7505, L500.4050, L503.6550, L101.9900, L503.6030, L100.0100 #### [facility] Laboratory [address] [place], [address] Potassium [Moles/Vol] 3.6 mmol/L Normal 3.3-5.1 [facility] Comment on above: Performed By: #### L 501.6710, L3300.6400, L503.7505, L500.4050, L503.6550, L101.9900, L503.6030, L100.0100 #### [facility] Laboratory [address] [place], [address] Sodium [Moles/Vol] 140 mmol/L Normal 133-145 [facility] Comment on above: Performed By: #### L 501.6710, L3300.6400, L503.7505, L500.4050, L503.6550, L101.9900, L503.6030, L100.0100 #### [facility] Laboratory [address] [place], [address] Urea nitrogen [Mass/Vol] 16 mg/dL Normal 4-19 [facility] Comment on above: Performed By: #### L 501.6710, L3300.6400, L503.7505, L500.4050, L503.6550, L101.9900, L503.6030, L100.0100 #### [facility] Laboratory [address] [place], [address] Basophil percentageOrdered B y: Natanael Nowak on 05-28-2025 Basophils/100 WBC (Bld) 0.4 % 0-1 [facility] CBC W/Diff, Automatedon 05-02 Absolute Lymph 1.66 X10 3/uL Normal 0.83-4.51 [facility] Comment on above: Performed By: #### L 501.6710, L3300.6400, L503.7505, L500.4050, L503.6550, L101.9900, L503.6030, L100.0100 #### [facility] Laboratory [address] [place], [address] Absolute Neut 2.5 X10 3/uL Normal 2.0-7.7 [facility] Comment on above: Performed By: #### L 501.6710, L3300.6400, L503.7505, L500.4050, L503.6550, L101.9900, L503.6030, L100.0100 #### [facility] Laboratory [address] [place], [address] Basophils/100 WBC (Bld) 0.4 % Normal 0-1 [facility] Comment on above: Performed By: #### L 501.6710, L3300.6400, L503.7505, L500.4050, L503.6550, L101.9900, L503.6030, L100.0100 #### [facility] Laboratory [address] [place], [address] Eosinophils/100 WBC (Bld) 2.9 % Normal 0-5 [facility] Comment on above: Performed By: #### L 501.6710, L3300.6400, L503.7505, L500.4050, L503.6550, L101.9900, L503.6030, L100.0100 #### [facility] Laboratory [address] [place], [address] Erythrocyte distribution width (RBC) [Ratio] 13.7 % Normal 11.6-14.6 [facility] Comment on above: Performed By: #### L 501.6710, L3300.6400, L503.7505, L500.4050, L503.6550, L101.9900, L503.6030, L100.0100 #### [facility] Laboratory [address] [place], [address] Hematocrit (Bld) [Volume fraction] 31.5 % Low 40-54 [facility] Comment on above: Performed By: #### L 501.6710, L3300.6400, L503.7505, L500.4050, L503.6550, L101.9900, L503.6030, L100.0100 #### [facility] Laboratory [address] [place], [address] Hemoglobin (Bld) [Mass/Vol] 10.5 g/dL Low 13.0-16.5 [facility] Comment on above: Performed By: #### L 501.6710, L3300.6400, L503.7505, L500.4050, L503.6550, L101.9900, L503.6030, L100.0100 #### [facility] Laboratory [address] [place], [address] IG% 0.200 Normal 0.0-0.9 [facility] Comment on above: Result Comment: IG% - Immature Granulocytes (promyelocytes, myelocytes and metamyelocytes) > 1% indicates that a LEFT SHIFT is Present. Performed By: #### L 501.6710, L3300.6400, L503.7505, L500.4050, L503.6550, L101.9900, L503.6030, L100.0100 #### [facility] Laboratory [address] [place], [address] Lymphocytes/100 WBC (Bld) 34.2 % Normal 19-41 [facility] Comment on above: Performed By: #### L 501.6710, L3300.6400, L503.7505, L500.4050, L503.6550, L101.9900, L503.6030, L100.0100 #### [facility] Laboratory [address] [place], [address] MCH (RBC) [Entitic mass] 29.7 pg Normal 27.0-32.0 [facility] Comment on above: Performed By: #### L 501.6710, L3300.6400, L503.7505, L500.4050, L503.6550, L101.9900, L503.6030, L100.0100 #### [facility] Laboratory [address] [place], [address] MCHC (RBC) [Mass/Vol] 33.3 g/dL Normal 32-36 [facility] Comment on above: Performed By: #### L 501.6710, L3300.6400, L503.7505, L500.4050, L503.6550, L101.9900, L503.6030, L100.0100 #### [facility] Laboratory [address] [place], [address] MCV (RBC) [Entitic vol] 89.0 fL Normal 80-94 [facility] Comment on above: Performed By: #### L 501.6710, L3300.6400, L503.7505, L500.4050, L503.6550, L101.9900, L503.6030, L100.0100 #### [facility] Laboratory [address] [place], [address] Monocytes/100 WBC (Bld) 10.5 % High 0-10 [facility] Comment on above: Performed By: #### L 501.6710, L3300.6400, L503.7505, L500.4050, L503.6550, L101.9900, L503.6030, L100.0100 #### [facility] Laboratory [address] [place], [address] Neutrophils/100 WBC (Bld) 51.8 % Normal 47-70 [facility] Comment on above: Performed By: #### L 501.6710, L3300.6400, L503.7505, L500.4050, L503.6550, L101.9900, L503.6030, L100.0100 #### [facility] Laboratory [address] [place], [address] Nucleated RBC (Bld) [#/Vol] 0 10*3/uL Normal 0-5 [facility] Comment on above: Performed By: #### L 501.6710, L3300.6400, L503.7505, L500.4050, L503.6550, L101.9900, L503.6030, L100.0100 #### [facility] Laboratory [address] [place], [address] Platelet mean volume (Bld) [Entitic vol] 10.5 fL Normal 6.2-12.0 [facility] Comment on above: Performed By: #### L 501.6710, L3300.6400, L503.7505, L500.4050, L503.6550, L101.9900, L503.6030, L100.0100 #### [facility] Laboratory [address] [place], [address] Platelets (Bld) [#/Vol] 189 10*3/uL Normal 150-450 [facility] Comment on above: Performed By: #### L 501.6710, L3300.6400, L503.7505, L500.4050, L503.6550, L101.9900, L503.6030, L100.0100 #### [facility] Laboratory [address] [place], [address] RBC (Bld) [#/Vol] 3.54 10*6/uL Low 4.6-6.2 [facility] Comment on above: Performed By: #### L 501.6710, L3300.6400, L503.7505, L500.4050, L503.6550, L101.9900, L503.6030, L100.0100 #### [facility] Laboratory [address] [place], [address] RDW SD 45.0 fl High 35.1-43.9 [facility] Comment on above: Performed By: #### L 501.6710, L3300.6400, L503.7505, L500.4050, L503.6550, L101.9900, L503.6030, L100.0100 #### [facility] Laboratory [address] [place], [address] WBC (Bld) [#/Vol] 4.9 10*3/uL Normal 4.4-11.0 [facility] Comment on above: Performed By: #### L 501.6710, L3300.6400, L503.7505, L500.4050, L503.6550, L101.9900, L503.6030, L100.0100 #### [facility] Laboratory [address] [place], [address] Carbon dioxide, total [Moles /volume] in Central venous bloodOrdered By: Natanael Nowak on 05-28-2025 CO2 [Moles/Vol] 22.5 mmol/L 21.0-32.0 [facility] Chloride assayOrdered By: Sona basilia Eliu on 05-28-2025 Chloride [Moles/Vol] 107 mmol/L 98-108 [facility] Culture, Blood (WB)on 2024 CUB Blood cultures x2, f rom two different sites No growth in 5 days. Normal [facility] Comment on above: Performed By: #### L 501.6710, L3300.6400, L503.7505, L500.4050, L503.6550, L101.9900, L503.6030, L100.0100 #### [facility] Laboratory [address] [place], [address] Discharge Instructionon 05-02 Discharge Instruction [facility] Medical Records Department [address] [place] [address] Instructions for Home/Discharge Instructions 05/28/25 1420 MR#: [id number] Acct: [id number] Name: RAJAT GUZMÁN Rep #: [id number] : 1935 89 From: Natanael Nowak MD PCP: Dr. John Noel, DO Status:ADM IN Discharge Instructions DC O2, CPAP, BIPAP needs Home O2 Discharge instructions: No Dressing / Incision Discharge Activity: Return to Normal Activity Dressing / Incision Call your doctor if you observe: Fever of 101 or Higher, Shortness of breath, Dizziness, Fainting spells, Swelling in the ankles, Chest pain and Increased palpitations (irregular heartbeat) Follow Up Care Test Results: Test results from this visit will be discussed in further detail at your follow-up appointment, if applicable. Discharge Plan Admission Admit Date/Time: 05/25/25 20:02 Attending Provider: Natanael Nowak Primary Care Provider: John Noel Consulting Providers: Suraj Garg Discharge Orders/Prescriptions Prescriptions: New fosfomycin tromethamine 3 gram packet 1 packet PO QODAY Qty: 3 0RF Continued tamsulosin 0.4 mg capsule 0.4 mg PO QDAY aspirin [Adult Low Dose Aspirin] 81 mg tablet,delayed release (DR/EC) 81 mg PO DAILY nitroglycerin 0.4 mg tablet, sublingual 0.4 mg SUBLINGUAL Q5M PRN (Reason: Chest Pain) Qty: 25 3RF prednisone 5 mg tablet 2 mg PO QDAY carvedilol 6.25 mg tablet 6.25 mg PO BID Qty: 60 3RF Rx Instructions: must administer with a meal/food oxybutynin chloride 5 mg tablet 5 mg PO DAILY melatonin 10 mg tablet 20 mg PO QHS diphenhydramine-acetaminop hen [Tylenol PM Extra Strength] 25-500 mg tablet 2 tab PO QHS prednisone 1 mg tablet 2 mg PO DAILY simvastatin 20 mg tablet 20 mg PO QHS Qty: 90 3RF Entresto 24-26 mg tablet 1 tab PO BID Qty: 60 11RF Discontinued cephalexin 500 mg capsule 500 mg PO Q6 Qty: 28 0RF Referrals / Follow Up: John Noel DO [Primary Care Provider] - Within 1 Week Disposition Disposition (needs filled in before D/C Order can be placed): Assisted Living 05/28/25 1423 Naatnael Nowak MD CC: Dr. Suraj Garg DO; Dr. John Noel DO Signed Normal [facility] Electrocardiogram reportOrde red By: Timoteo Mullins on 05-28-2025 EKG study [facility] Cardiovascular Services [address] [place] [address] 12 Lead EKG 05/25/25 1655 MR#: [id number] Acct: [id number] Name: RAJAT GUZMÁN Stacia Rep #:[id number] : 1935 89 From: Timoteo Mullins MD Attending Dr: Dr. Natanael Nowak MD Status: ADM IN Ordering Dr: Zackary Matthews MD Date: 05/25/25 Location: [facility] Sex: M C Admitted: 05/25/25 Test Reason : Blood Pressure : */* mmHG Vent. Rate : 70 BPM Atrial Rate : 70 BPM P-R Int : 170 ms QRS Dur : 114 ms QT Int : 382 ms P-R-T Axes : 44 -23 92 degrees QTcB Int : 412 ms Sinus rhythm with occasional Premature ventricular complexes Minimal voltage criteria for LVH, may be normal variant ( Remington product ) Septal infarct , age undetermined Abnormal ECG Confirmed by SUSANNA PASCUAL, TIMOTEO ([id number]), sports editor GIRMA GREGG ([id number]) on 05/28/2025 8:32:22 AM Referred By: Confirmed By: TIMOTEO MULLINS MD 05/28/25 0832 Date _ Timoteo Mullins MD CC: Dr. Zackary Matthews MD; Dr. John Noel DO; Dr. Natanael Nowak MD ~ Signed [facility] Work Phone: Eosinophil percentageOrdered By: Natanael Nowak on 05-28-2025 Eosinophils/100 WBC (Bld) 2.9 % 0-5 [facility] Erythrocyte distribution wid th ratioOrdered By: Natanael Nowak on 05-28-2025 Erythrocyte distribution width (RBC) [Ratio] 13.7 % 11.6-14.6 [facility] Erythrocyte distribution wid th standard deviationOrdered By: Natanael Nowak on 05-28-2025 Erythrocyte distribution width (RBC) [Ratio] 45.0 fl High 35.1-43.9 [facility] Glomerular filtration rate ( GFR) estimation/1.73 sq m using serum, plasma, or whole bOrdered By: Natanael Nowak on 05-28-2025 GFR/1.73 sq M.predicted among non-blacks MDRD (S/P/Bld) [Vol rate/Area] 88 mL/min/{1.73_m2} >60 [facility] Comment on above: mL/min/1.73m2 CKD-EP I Creatinine Equation (2020) Hematocrit Auto (Bld) [Volum e fraction]Ordered By: Natanael Nowak on 05-28-2025 Hematocrit (Bld) [Volume fraction] 31.5 % Low 40-54 [facility] Hemoglobin measurementOrdere d By: Natanael Nowak on 05-28-2025 Hemoglobin (Bld) [Mass/Vol] 10.5 g/dL Low 13.0-16.5 [facility] Immature granulocytes/100 WB C Auto (Bld)Ordered By: Natanael Nowak on 05-28-2025 Immature granulocytes/100 WBC (Bld) 0.200 % 0.0-0.9 [facility] Comment on above: IG% - Immature Granu locytes (promyelocytes, myelocytes and metamyelocytes) > 1% indicates that a LEFT SHIFT is Present. MCV (mean corpuscular volume ) determinationOrdered By: Natanael Nowak on 05-28-2025 MCV (RBC) [Entitic vol] 89.0 fL 80-94 [facility] Mean corpuscular hemoglobin (MCH) determinationOrdered By: Natanael Nowak on 05-28-2025 MCH (RBC) [Entitic mass] 29.7 pg 27.0-32.0 [facility] Mean corpuscular hemoglobin concentration (MCHC) determinationOrdered By: Natanael Nowak on 05-28-2025 MCHC (RBC) [Mass/Vol] 33.3 g/dL 32-36 [facility] Mean platelet volume determi nationOrdered By: Natanael Nowak on 05-28-2025 Platelet mean volume (Bld) [Entitic vol] 10.5 fL 6.2-12.0 [facility] Monocyte percentageOrdered B y: Natanael Nowak on 05-28-2025 Monocytes/100 WBC (Bld) 10.5 % High 0-10 [facility] Neutrophil percentageOrdered By: Natanael Nowak on 05-28-2025 Neutrophils/100 WBC (Bld) 51.8 % 47-70 [facility] Nucleated red blood cell per centageOrdered By: Natanael Nowak on 05-28-2025 Nucleated RBC/100 WBC (Bld) [Ratio] 0 % 0-5 [facility] Platelet countOrdered By: Sona Nowak on 05-28-2025 Platelets (Bld) [#/Vol] 189 10*3/uL 150-450 [facility] Potassium measurement (mass/ volume)Ordered By: Natanael Nowak on 05-28-2025 Potassium (Unsp spec) [Mass/Vol] 3.6 mmol/L 3.3-5.1 [facility] RBC Auto (Bld) [#/Vol]Ordere d By: Natanael Nowak on 05-28-2025 RBC (Bld) [#/Vol] 3.54 10*6/uL Low 4.6-6.2 [facility] Serum creatinine measurement (mass/volume)Ordered By: Natanael Nowak on 05-28-2025 Creatinine [Mass/Vol] 0.70 mg/dL 0.70-1.20 [facility] Serum glucose measurement (m ass/volume)Ordered By: Natanael Nowak on 05-28-2025 Glucose [Mass/Vol] 100 mg/dL High 70-99 [facility] Serum or plasma calcium alfonso urement (mass/volume)Ordered By: Natanael Nowak on 05-28-2025 Calcium [Mass/Vol] 8.6 mg/dL 7.6-11.0 [facility] Serum or plasma urea nitroge n measurement (mass/volume)Ordered By: Natanael Nowak on 05-28-2025 Urea nitrogen [Mass/Vol] 16 mg/dL 4-19 [facility] Sodium levelOrdered By: Trevin Nowak on 05-28-2025 Sodium [Moles/Vol] 140 mmol/L 133-145 [facility] Urine Cultureon 05-28-2025 URC #1 Below infection l evel. GNR lactose hydrate control tender [place] Count 1000-10,000 Presumptive C albicans Presumptive C albicans Normal [facility] Comment on above: Performed By: #### L 501.6710, L3300.6400, L503.7505, L500.4050, L503.6550, L101.9900, L503.6030, L100.0100 #### [facility] [address] [place], [address] White blood cell (WBC) count Ordered By: Natanael Nowak on 05-28-2025 WBC (Bld) [#/Vol] 4.9 10*3/uL 4.4-11.0 [facility] Basic Metabolic Profile (BMP )on 05-27-2025 BUN/CRE 20.6 RATIO High 10-20 [facility] Comment on above: Performed By: #### L 501.6710, L3300.6400, L503.7505, L500.4050, L503.6550, L101.9900, L503.6030, L100.0100 #### [facility] [address] [place], [address] Calcium [Mass/Vol] 8.8 mg/dL Normal 7.6-11.0 [facility] Comment on above: Performed By: #### L 501.6710, L3300.6400, L503.7505, L500.4050, L503.6550, L101.9900, L503.6030, L100.0100 #### [facility] [address] [place], [address] Chloride [Moles/Vol] 104 mmol/L Normal 98-108 [facility] Comment on above: Performed By: #### L 501.6710, L3300.6400, L503.7505, L500.4050, L503.6550, L101.9900, L503.6030, L100.0100 #### [facility] [address] [place], [address] CO2 [Moles/Vol] 18.0 mmol/L Low 21.0-32.0 [facility] Comment on above: Performed By: #### L 501.6710, L3300.6400, L503.7505, L500.4050, L503.6550, L101.9900, L503.6030, L100.0100 #### [facility] [address] [place], [address] Creatinine [Mass/Vol] 0.76 mg/dL Normal 0.70-1.20 [facility] Comment on above: Performed By: #### L 501.6710, L3300.6400, L503.7505, L500.4050, L503.6550, L101.9900, L503.6030, L100.0100 #### [facility] [address] [place], [place], [id number] ([phone]) ECRCL 43.30 ml/min Low 50-250 [facility] Comment on above: Performed By: #### L 501.6710, L3300.6400, L503.7505, L500.4050, L503.6550, L101.9900, L503.6030, L100.0100 #### [facility] [address] [place], [address] GAP 14 Normal 5-15 [facility] Comment on above: Performed By: #### L 501.6710, L3300.6400, L503.7505, L500.4050, L503.6550, L101.9900, L503.6030, L100.0100 #### [facility] [address] [place], [place], [id number] GFR/1.73 sq M.predicted among non-blacks MDRD (S/P/Bld) [Vol rate/Area] 86 mL/min/{1.73_m2} Normal >60 [facility] Comment on above: Result Comment: mL/m in/1.73m2 CKD-EPI Creatinine Equation (2020) Performed By: #### L 501.6710, L3300.6400, L503.7505, L500.4050, L503.6550, L101.9900, L503.6030, L100.0100 #### [facility] [address] [place], [place], [id number] Glucose [Mass/Vol] 114 mg/dL High 70-99 [facility] Comment on above: Performed By: #### L 501.6710, L3300.6400, L503.7505, L500.4050, L503.6550, L101.9900, L503.6030, L100.0100 #### [facility] [address] [place], [address] Potassium [Moles/Vol] 3.9 mmol/L Normal 3.3-5.1 [facility] Comment on above: Performed By: #### L 501.6710, L3300.6400, L503.7505, L500.4050, L503.6550, L101.9900, L503.6030, L100.0100 #### [facility] [address] [place], [address] Sodium [Moles/Vol] 137 mmol/L Normal 133-145 [facility] Comment on above: Performed By: #### L 501.6710, L3300.6400, L503.7505, L500.4050, L503.6550, L101.9900, L503.6030, L100.0100 #### [facility] [address] [place], [address] Urea nitrogen [Mass/Vol] 16 mg/dL Normal 4-19 [facility] Comment on above: Performed By: #### L 501.6710, L3300.6400, L503.7505, L500.4050, L503.6550, L101.9900, L503.6030, L100.0100 #### [facility] [address] [place], [address] CBC W/Diff, Automatedon 07-2 Absolute Lymph 2.37 X10 3/uL Normal 0.83-4.51 [facility] Comment on above: Performed By: #### L 501.6710, L3300.6400, L503.7505, L500.4050, L503.6550, L101.9900, L503.6030, L100.0100 #### [facility] [address] [place], [address] Absolute Neut 3.9 X10 3/uL Normal 2.0-7.7 [facility] Comment on above: Performed By: #### L 501.6710, L3300.6400, L503.7505, L500.4050, L503.6550, L101.9900, L503.6030, L100.0100 #### [facility] [address] [place], [address] Basophils/100 WBC (Bld) 0.6 % Normal 0-1 [facility] Comment on above: Performed By: #### L 501.6710, L3300.6400, L503.7505, L500.4050, L503.6550, L101.9900, L503.6030, L100.0100 #### [facility] [address] [place], [address] Eosinophils/100 WBC (Bld) 3.2 % Normal 0-5 [facility] Comment on above: Performed By: #### L 501.6710, L3300.6400, L503.7505, L500.4050, L503.6550, L101.9900, L503.6030, L100.0100 #### [facility] [address] [place], [address] Erythrocyte distribution width (RBC) [Ratio] 13.4 % Normal 11.6-14.6 [facility] Comment on above: Performed By: #### L 501.6710, L3300.6400, L503.7505, L500.4050, L503.6550, L101.9900, L503.6030, L100.0100 #### [facility] [address] [place], [address] Hematocrit (Bld) [Volume fraction] 31.7 % Low 40-54 [facility] Comment on above: Performed By: #### L 501.6710, L3300.6400, L503.7505, L500.4050, L503.6550, L101.9900, L503.6030, L100.0100 #### [facility] [address] [place], [address] Hemoglobin (Bld) [Mass/Vol] 10.8 g/dL Low 13.0-16.5 [facility] Comment on above: Performed By: #### L 501.6710, L3300.6400, L503.7505, L500.4050, L503.6550, L101.9900, L503.6030, L100.0100 #### [facility] [address] [place], [address] IG% 0.100 Normal 0.0-0.9 [facility] Comment on above: Result Comment: IG% - Immature Granulocytes (promyelocytes, myelocytes and metamyelocytes) > 1% indicates that a LEFT SHIFT is Present. Performed By: #### L 501.6710, L3300.6400, L503.7505, L500.4050, L503.6550, L101.9900, L503.6030, L100.0100 #### [facility] [address] [place], [address] Lymphocytes/100 WBC (Bld) 32.8 % Normal 19-41 [facility] Comment on above: Performed By: #### L 501.6710, L3300.6400, L503.7505, L500.4050, L503.6550, L101.9900, L503.6030, L100.0100 #### [facility] [address] [place], [address] MCH (RBC) [Entitic mass] 30.3 pg Normal 27.0-32.0 [facility] Comment on above: Performed By: #### L 501.6710, L3300.6400, L503.7505, L500.4050, L503.6550, L101.9900, L503.6030, L100.0100 #### [facility] [address] [place], [address] MCHC (RBC) [Mass/Vol] 34.1 g/dL Normal 32-36 [facility] Comment on above: Performed By: #### L 501.6710, L3300.6400, L503.7505, L500.4050, L503.6550, L101.9900, L503.6030, L100.0100 #### [facility] [address] [place], [address] MCV (RBC) [Entitic vol] 88.8 fL Normal 80-94 [facility] Comment on above: Performed By: #### L 501.6710, L3300.6400, L503.7505, L500.4050, L503.6550, L101.9900, L503.6030, L100.0100 #### [facility] [address] [place], [address] Monocytes/100 WBC (Bld) 9.1 % Normal 0-10 [facility] Comment on above: Performed By: #### L 501.6710, L3300.6400, L503.7505, L500.4050, L503.6550, L101.9900, L503.6030, L100.0100 #### [facility] [address] [place], [address] Neutrophils/100 WBC (Bld) 54.2 % Normal 47-70 [facility] Comment on above: Performed By: #### L 501.6710, L3300.6400, L503.7505, L500.4050, L503.6550, L101.9900, L503.6030, L100.0100 #### [facility] [address] [place], [address] Nucleated RBC (Bld) [#/Vol] 0 10*3/uL Normal 0-5 [facility] Comment on above: Performed By: #### L 501.6710, L3300.6400, L503.7505, L500.4050, L503.6550, L101.9900, L503.6030, L100.0100 #### [facility] [address] [place], [address] Platelet mean volume (Bld) [Entitic vol] 10.3 fL Normal 6.2-12.0 [facility] Comment on above: Performed By: #### L 501.6710, L3300.6400, L503.7505, L500.4050, L503.6550, L101.9900, L503.6030, L100.0100 #### [facility] [address] [place], [address] Platelets (Bld) [#/Vol] 174 10*3/uL Normal 150-450 [facility] Comment on above: Performed By: #### L 501.6710, L3300.6400, L503.7505, L500.4050, L503.6550, L101.9900, L503.6030, L100.0100 #### [facility] [address] [place], [address] RBC (Bld) [#/Vol] 3.57 10*6/uL Low 4.6-6.2 [facility] Comment on above: Performed By: #### L 501.6710, L3300.6400, L503.7505, L500.4050, L503.6550, L101.9900, L503.6030, L100.0100 #### [facility] [address] [place], [address] RDW SD 43.9 fl Normal 35.1-43.9 [facility] Comment on above: Performed By: #### L 501.6710, L3300.6400, L503.7505, L500.4050, L503.6550, L101.9900, L503.6030, L100.0100 #### [facility] [address] [place], [address] WBC (Bld) [#/Vol] 7.2 10*3/uL Normal 4.4-11.0 [facility] Comment on above: Performed By: #### L 501.6710, L3300.6400, L503.7505, L500.4050, L503.6550, L101.9900, L503.6030, L100.0100 #### [facility] [address] [place], [address] Basic Metabolic Profile (BMP )on 05-26-2025 BUN/CRE 22.5 RATIO High 10-20 [facility] Comment on above: Performed By: #### L 501.6710, L3300.6400, L503.7505, L500.4050, L503.6550, L101.9900, L503.6030, L100.0100 #### [facility] [address] [place], [address] Calcium [Mass/Vol] 8.2 mg/dL Normal 7.6-11.0 [facility] Comment on above: Performed By: #### L 501.6710, L3300.6400, L503.7505, L500.4050, L503.6550, L101.9900, L503.6030, L100.0100 #### [facility] [address] [place], [address] Chloride [Moles/Vol] 107 mmol/L Normal 98-108 [facility] Comment on above: Performed By: #### L 501.6710, L3300.6400, L503.7505, L500.4050, L503.6550, L101.9900, L503.6030, L100.0100 #### [facility] [address] [place], [address] CO2 [Moles/Vol] 18.9 mmol/L Low 21.0-32.0 [facility] Comment on above: Performed By: #### L 501.6710, L3300.6400, L503.7505, L500.4050, L503.6550, L101.9900, L503.6030, L100.0100 #### [facility] [address] [place], [address] Creatinine [Mass/Vol] 0.83 mg/dL Normal 0.70-1.20 [facility] Comment on above: Performed By: #### L 501.6710, L3300.6400, L503.7505, L500.4050, L503.6550, L101.9900, L503.6030, L100.0100 #### [facility] [address] [place], [place], [id number] ([phone] ECRCL 41.73 ml/min Low 50-250 [facility] Comment on above: Performed By: #### L 501.6710, L3300.6400, L503.7505, L500.4050, L503.6550, L101.9900, L503.6030, L100.0100 #### [facility] [address] [place], [place], [id number] GAP 13 Normal 5-15 [facility] Comment on above: Performed By: #### L 501.6710, L3300.6400, L503.7505, L500.4050, L503.6550, L101.9900, L503.6030, L100.0100 #### [facility] [address] [place], [address] GFR/1.73 sq M.predicted among non-blacks MDRD (S/P/Bld) [Vol rate/Area] 84 mL/min/{1.73_m2} Normal >60 [facility] Comment on above: Result Comment: mL/m in/1.73m2 CKD-EPI Creatinine Equation (2020) Performed By: #### L 501.6710, L3300.6400, L503.7505, L500.4050, L503.6550, L101.9900, L503.6030, L100.0100 #### [facility] [address] [place], [address] Glucose [Mass/Vol] 81 mg/dL Normal 70-99 [facility] Comment on above: Performed By: #### L 501.6710, L3300.6400, L503.7505, L500.4050, L503.6550, L101.9900, L503.6030, L100.0100 #### [facility] [address] [place], [address] Potassium [Moles/Vol] 3.9 mmol/L Normal 3.3-5.1 [facility] Comment on above: Performed By: #### L 501.6710, L3300.6400, L503.7505, L500.4050, L503.6550, L101.9900, L503.6030, L100.0100 #### [facility] [address] [place], [address] Sodium [Moles/Vol] 138 mmol/L Normal 133-145 [facility] Comment on above: Performed By: #### L 501.6710, L3300.6400, L503.7505, L500.4050, L503.6550, L101.9900, L503.6030, L100.0100 #### [facility] [address] [place], [address] Urea nitrogen [Mass/Vol] 19 mg/dL Normal 4-19 [facility] Comment on above: Performed By: #### L 501.6710, L3300.6400, L503.7505, L500.4050, L503.6550, L101.9900, L503.6030, L100.0100 #### [facility] [address] [place], [address] CBC W/Diff, Automatedon 07-2 Absolute Lymph 2.28 X10 3/uL Normal 0.83-4.51 [facility] Comment on above: Performed By: #### L 501.6710, L3300.6400, L503.7505, L500.4050, L503.6550, L101.9900, L503.6030, L100.0100 #### [facility] [address] [place], [address] Absolute Neut 3.5 X10 3/uL Normal 2.0-7.7 [facility] Comment on above: Performed By: #### L 501.6710, L3300.6400, L503.7505, L500.4050, L503.6550, L101.9900, L503.6030, L100.0100 #### [facility] [address] [place], [address] Basophils/100 WBC (Bld) 0.7 % Normal 0-1 [facility] Comment on above: Performed By: #### L 501.6710, L3300.6400, L503.7505, L500.4050, L503.6550, L101.9900, L503.6030, L100.0100 #### [facility] [address] [place], [address] Eosinophils/100 WBC (Bld) 3.1 % Normal 0-5 [facility] Comment on above: Performed By: #### L 501.6710, L3300.6400, L503.7505, L500.4050, L503.6550, L101.9900, L503.6030, L100.0100 #### [facility] [address] [place], [address] Erythrocyte distribution width (RBC) [Ratio] 13.7 % Normal 11.6-14.6 [facility] Comment on above: Performed By: #### L 501.6710, L3300.6400, L503.7505, L500.4050, L503.6550, L101.9900, L503.6030, L100.0100 #### [facility] [address] [place], [address] Hematocrit (Bld) [Volume fraction] 28.8 % Low 40-54 [facility] Comment on above: Performed By: #### L 501.6710, L3300.6400, L503.7505, L500.4050, L503.6550, L101.9900, L503.6030, L100.0100 #### [facility] [address] [place], [address] Hemoglobin (Bld) [Mass/Vol] 9.4 g/dL Low 13.0-16.5 [facility] Comment on above: Performed By: #### L 501.6710, L3300.6400, L503.7505, L500.4050, L503.6550, L101.9900, L503.6030, L100.0100 #### [facility] [address] [place], [address] IG% 0.100 Normal 0.0-0.9 [facility] Comment on above: Result Comment: IG% - Immature Granulocytes (promyelocytes, myelocytes and metamyelocytes) > 1% indicates that a LEFT SHIFT is Present. Performed By: #### L 501.6710, L3300.6400, L503.7505, L500.4050, L503.6550, L101.9900, L503.6030, L100.0100 #### [facility] [address] [place], [address] Lymphocytes/100 WBC (Bld) 33.3 % Normal 19-41 [facility] Comment on above: Performed By: #### L 501.6710, L3300.6400, L503.7505, L500.4050, L503.6550, L101.9900, L503.6030, L100.0100 #### [facility] [address] [place], [address] MCH (RBC) [Entitic mass] 29.4 pg Normal 27.0-32.0 [facility] Comment on above: Performed By: #### L 501.6710, L3300.6400, L503.7505, L500.4050, L503.6550, L101.9900, L503.6030, L100.0100 #### [facility] [address] [place], [address] MCHC (RBC) [Mass/Vol] 32.6 g/dL Normal 32-36 [facility] Comment on above: Performed By: #### L 501.6710, L3300.6400, L503.7505, L500.4050, L503.6550, L101.9900, L503.6030, L100.0100 #### [facility] [address] [place], [address] MCV (RBC) [Entitic vol] 90.0 fL Normal 80-94 [facility] Comment on above: Performed By: #### L 501.6710, L3300.6400, L503.7505, L500.4050, L503.6550, L101.9900, L503.6030, L100.0100 #### [facility] [address] [place], [address] Monocytes/100 WBC (Bld) 12.4 % High 0-10 [facility] Comment on above: Performed By: #### L 501.6710, L3300.6400, L503.7505, L500.4050, L503.6550, L101.9900, L503.6030, L100.0100 #### [facility] [address] [place], [address] Neutrophils/100 WBC (Bld) 50.4 % Normal 47-70 [facility] Comment on above: Performed By: #### L 501.6710, L3300.6400, L503.7505, L500.4050, L503.6550, L101.9900, L503.6030, L100.0100 #### [facility] [address] [place], [address] Nucleated RBC (Bld) [#/Vol] 0 10*3/uL Normal 0-5 [facility] Comment on above: Performed By: #### L 501.6710, L3300.6400, L503.7505, L500.4050, L503.6550, L101.9900, L503.6030, L100.0100 #### [facility] [address] [place], [address] Platelet mean volume (Bld) [Entitic vol] 10.9 fL Normal 6.2-12.0 [facility] Comment on above: Performed By: #### L 501.6710, L3300.6400, L503.7505, L500.4050, L503.6550, L101.9900, L503.6030, L100.0100 #### [facility] [address] [place], [address] Platelets (Bld) [#/Vol] 162 10*3/uL Normal 150-450 [facility] Comment on above: Performed By: #### L 501.6710, L3300.6400, L503.7505, L500.4050, L503.6550, L101.9900, L503.6030, L100.0100 #### [facility] [address] [place], [address] RBC (Bld) [#/Vol] 3.20 10*6/uL Low 4.6-6.2 [facility] Comment on above: Performed By: #### L 501.6710, L3300.6400, L503.7505, L500.4050, L503.6550, L101.9900, L503.6030, L100.0100 #### [facility] [address] [place], [address] RDW SD 45.0 fl High 35.1-43.9 [facility] Comment on above: Performed By: #### L 501.6710, L3300.6400, L503.7505, L500.4050, L503.6550, L101.9900, L503.6030, L100.0100 #### [facility] [address] [place], [address] WBC (Bld) [#/Vol] 6.9 10*3/uL Normal 4.4-11.0 [facility] Comment on above: Performed By: #### L 501.6710, L3300.6400, L503.7505, L500.4050, L503.6550, L101.9900, L503.6030, L100.0100 #### [facility] [address] [place], [address] Urine cultureOrdered By: Loida Garg on 05-26-2025 Bacteria identified Cx Nom (U) GNR lactose hydrate control tender Abnormal [facility] Bacteria identified Cx Nom (U) Presumptive C albicans Abnormal [facility] 12 Lead EKGon 05-25-2025 12 Lead EKG [facility] Cardiovascular Services [address] [place] [address] 12 Lead EKG 05/25/25 1655 MR#: [id number] Acct: [id number] Name: RAJAT GUZMÁN Rep #: [id number] : 1935 89 From: Timoteo Mullins MD Attending Dr: Dr. Natanael Nowak MD Status : ADM IN Ordering Dr: Zackary Matthews MD Date: 05/25/25 Location: [place] Sex: M C Admitted: 05/25/25 Test Reason : Blood Pressure : */* mmHG Vent. Rate : 70 BPM Atrial Rate : 70 BPM P-R Int : 170 ms QRS Dur : 114 ms QT Int : 382 ms P-R-T Axes : 44 -23 92 degrees QTcB Int : 412 ms Sinus rhythm with occasional Premature ventricular complexes Minimal voltage criteria for LVH, may be normal variant ( [place] product ) Septal infarct , age undetermined Abnormal ECG Confirmed by TIMOTEO MULLINS MD ([id number]), sports editor GIRMA GREGG ([id number]) on 05/28/2025 8:32:22 AM Referred By: Confirmed By: TIMOTEO MULLINS MD 05/28/25 0832 Date Timoteo Mullins MD CC: Dr. Zackary Matthews MD; Dr. John Noel DO; Dr. Natanael Nowak MD Signed Normal [facility] Absolute lymphocyte countOrd ered By: Zackary Matthews on 05-25-2025 Lymphocytes Auto (Unsp spec) [#/Vol] 2.07 10*3/uL 0.83-4.51 [facility] Absolute neutrophil countOrd ered By: Zackary Matthews on 05-25-2025 Neutrophils (Bld) [#/Vol] 4.9 10*3/uL 2.0-7.7 [facility] Activated partial thrombopla stin time (aPTT) in platelet poor plasma by coagulation aOrdered By: Zackary Matthews on 05-25-2025 aPTT Coag (PPP) [Time] 27.9 s 24.1-36.2 [facility] Anion gap in Serum or Plasma Ordered By: Zackary Matthews on 05-25-2025 Anion gap [Moles/Vol] 14 mmol/L 5-15 [facility] Automated blood erythrocyte countOrdered By: Zackary Matthews on 05-25-2025 RBC (Bld) [#/Vol] 3.76 10*6/uL Low 4.6-6.2 [facility] Comment on above: Performed By: #### L 501.6710, L3300.6400, L503.7505, L500.4050, L503.6550, L101.9900, L503.6030, L100.0100 #### [facility] Laboratory [address] [place], [address] Automated blood hematocrit ( percentage)Ordered By: Zackary Matthews on 05-25-2025 Hematocrit (Bld) [Volume fraction] 33.6 % Low 40-54 [facility] Comment on above: Performed By: #### L 501.6710, L3300.6400, L503.7505, L500.4050, L503.6550, L101.9900, L503.6030, L100.0100 #### [facility] Laboratory [address] [place], [address] Automated lymphocyte count a s percentage of total leukocytesOrdered By: Zackary Matthews on 05-25-2025 Lymphocytes/100 WBC Auto (Unsp spec) 25.2 % 19-41 [facility] BUN/creatinine ratioOrdered By: Zackary Matthews on 05-25-2025 Urea nitrogen/Creatinine [Mass ratio] 20.5 mg/mg High 10-20 [facility] Basophil percentageOrdered B y: Zackary Matthews on 05-25-2025 Basophils/100 WBC (Bld) 0.5 % Normal 0-1 [facility] Comment on above: Performed By: #### L 501.6710, L3300.6400, L503.7505, L500.4050, L503.6550, L101.9900, L503.6030, L100.0100 #### [facility] Laboratory [address] [place], [address] Bilirubin Test strip Ql (U)O rdered By: Zackary Matthews on 05-25-2025 Bilirubin Ql (U) Negative Negative [facility] Bilirubin, totalOrdered By: Zackary Matthews on 05-25-2025 Bilirubin [Mass/Vol] 0.85 mg/dL Normal 0.00-1.30 [facility] Comment on above: Performed By: #### L 501.6710, L3300.6400, L503.7505, L500.4050, L503.6550, L101.9900, L503.6030, L100.0100 #### [facility] Laboratory [address] [place], [address] Blood cultureOrdered By: Clarita Matthews on 05-25-2025 Bacteria identified Cx Nom (Bld) No growth in 5 days. [facility] CBC W/Diff, Automatedon 05-02 Absolute Lymph 2.07 X10 3/uL Normal 0.83-4.51 [facility] Comment on above: Performed By: #### L 501.6710, L3300.6400, L503.7505, L500.4050, L503.6550, L101.9900, L503.6030, L100.0100 #### [facility] Laboratory [address] [place], [address] Absolute Neut 4.9 X10 3/uL Normal 2.0-7.7 [facility] Comment on above: Performed By: #### L 501.6710, L3300.6400, L503.7505, L500.4050, L503.6550, L101.9900, L503.6030, L100.0100 #### [facility] Laboratory [address] [place], [address] IG% 0.400 Normal 0.0-0.9 [facility] Comment on above: Result Comment: IG% - Immature Granulocytes (promyelocytes, myelocytes and metamyelocytes) > 1% indicates that a LEFT SHIFT is Present. Performed By: #### L 501.6710, L3300.6400, L503.7505, L500.4050, L503.6550, L101.9900, L503.6030, L100.0100 #### [facility] Laboratory [address] [place], [address] Lymphocytes/100 WBC (Bld) 25.2 % Normal 19-41 [facility] Comment on above: Performed By: #### L 501.6710, L3300.6400, L503.7505, L500.4050, L503.6550, L101.9900, L503.6030, L100.0100 #### [facility] Laboratory [address] [place], [address] Nucleated RBC (Bld) [#/Vol] 0 10*3/uL Normal 0-5 [facility] Comment on above: Performed By: #### L 501.6710, L3300.6400, L503.7505, L500.4050, L503.6550, L101.9900, L503.6030, L100.0100 #### [facility] Laboratory [address] [place], [address] RDW SD 45.0 fl High 35.1-43.9 [facility] Comment on above: Performed By: #### L 501.6710, L3300.6400, L503.7505, L500.4050, L503.6550, L101.9900, L503.6030, L100.0100 #### [facility] Laboratory [address] [place], [address] CULTURE, URINE, ROUTINEon CULTURE, URINE, ROUTINE SEE NOTE Abnormal [facility] Comment on above: Result Comment: CULTURE, URINE, ROUTINE Micro Number: [id number] Test Status: Final Specimen Source: Indwelling (rod) catheter Specimen Quality: Adequate Result: Greater than 100,000 CFU/mL of Escherichia coli (ESBL) E.coli (ESBL) INT ALEX AMOX/CLAVULANATE I 16 AMPICILLIN R >=32 1 AMP/SULBACTAM R >=32 CEFAZOLIN R >=32 CEFEPIME R 16 CEFTAZIDIME R >=32 CEFTRIAXONE R >=64 CEFUROXIME, AXETIL R >=64 CEFUROXIME, SODIUM R >=64 CIPROFLOXACIN R >=4 GENTAMICIN R >=16 IMIPENEM S <=0.25 LEVOFLOXACIN R >=8 MEROPENEM S <=0.25 NITROFURANTOIN I 64 PIP/TAZOBACTAM S 16 TOBRAMYCIN R >=16 TRIMETHOPRIM/SULFA S <=20 ESBL RESULT: * 2 S = Susceptible I = Intermediate R = Resistant NS = Not susceptible SDD = Susceptible Dose Dependent * = Not Tested NR = Not Reported NN = See Therapy Comments THERAPY COMMENTS Note 1: Extended spectrum beta-lactamase (ESBL) producing organisms demonstrate decreased activity with penicillins, cephalosporins and aztreonam. Note 2: The organism has been confirmed as an ESBL engineering technical analyst. Performed By: #### 3 95 #### [facility] [address], [address] [place] [address] Storeroom Supervisor: Fantasma Martinez MD Carbon dioxide, total [Moles /volume] in Central venous bloodOrdered By: Zackary Matthews on 05-25-2025 CO2 [Moles/Vol] 20.2 mmol/L Low 21.0-32.0 [facility] Comment on above: Performed By: #### L 501.6710, L3300.6400, L503.7505, L500.4050, L503.6550, L101.9900, L503.6030, L100.0100 #### [facility] Laboratory [address] [facility] [place], [address] Chest PA and Lateralon 05-25 Chest PA and Lateral [facility] Imaging Services [address] [place] [address] Chest PA and Lateral MR#: [id number] Acct: [id number] Name: RAJAT GUZMÁN Stacia Rep #: [id number] : 1935 M 89 From: Missael Vu MD PCP: Dr. John Noel, DO Status: [facility] ER Study: Chest PA and Lateral Date of Exam: 05/25/25 Exam# [id number] Ordering Dr: Zackary Matthews MD PROCEDURE: CHEST PA AND LATERAL 05/25/2025 REASON FOR EXAM: SOB, COUGH, WEAKNESS TECHNIQUE: CHEST PA AND LATERAL FINDINGS: Left chest AICD. The heart is enlarged. The lungs are clear. No pleural effusion or pneumothorax. No acute osseous abnormalities. RAD/Chest PA and Lateral IMPRESSION: NO ACUTE FINDINGS. Reading Location: [facility] CC: Dr. Zackary Matthews MD; Dr. John Noel DO Alternative Dispute Resolution Mediator: Signed Normal [facility] Chloride assayOrdered By: Liliana Matthews on 05-25-2025 Chloride [Moles/Vol] 100 mmol/L Normal 98-108 [facility] Comment on above: Performed By: #### L 501.6710, L3300.6400, L503.7505, L500.4050, L503.6550, L101.9900, L503.6030, L100.0100 #### [facility] Laboratory [address] [place], [place], [id number] Comprehensive Metabolic Prof ilon 05-25-2025 ALK PHOS 49 U/L Normal 40-129 [facility] Comment on above: Performed By: #### L 501.6710, L3300.6400, L503.7505, L500.4050, L503.6550, L101.9900, L503.6030, L100.0100 #### [facility] Laboratory [address] [place], [address] BUN/CRE 20.5 RATIO High 10-20 [facility] Comment on above: Performed By: #### L 501.6710, L3300.6400, L503.7505, L500.4050, L503.6550, L101.9900, L503.6030, L100.0100 #### [facility] Laboratory [address] [place], [place], [id number] ECRCL 33.39 ml/min Low 50-250 [facility] Comment on above: Performed By: #### L 501.6710, L3300.6400, L503.7505, L500.4050, L503.6550, L101.9900, L503.6030, L100.0100 #### [facility] Laboratory [address] [place], [address] GAP 14 Normal 5-15 [facility] Comment on above: Performed By: #### L 501.6710, L3300.6400, L503.7505, L500.4050, L503.6550, L101.9900, L503.6030, L100.0100 #### [facility] Laboratory [address] [place], [address] Potassium [Moles/Vol] 4.7 mmol/L Normal 3.3-5.1 [facility] Comment on above: Result Comment: Hemo lysis present, Results??could be affected. ?? Performed By: #### L 501.6710, L3300.6400, L503.7505, L500.4050, L503.6550, L101.9900, L503.6030, L100.0100 #### [facility] Laboratory [address] [place], [address] T PROT 7.4 g/dL Normal 5.9-8.4 [facility] Comment on above: Performed By: #### L 501.6710, L3300.6400, L503.7505, L500.4050, L503.6550, L101.9900, L503.6030, L100.0100 #### [facility] Laboratory [address] [place], [address] Comprehensive Metabolic Prof ilOrdered By: Zackary Matthews on 05-25-2025 AST [Catalytic activity/Vol] 31 U/L Normal <=37 [facility] Comment on above: Hemolysis present, R esults could be affected. Result Comment: Hemo lysis present, Results??could be affected. ?? Performed By: #### L 501.6710, L3300.6400, L503.8155, L500.4050, L503.6550, L101.9900, L503.6030, L100.0100 #### [facility] Laboratory [address] [place], [address] Emergency Department Summary on 05-25-2025 Emergency Department Summary [facility] Medical Records Department [address] [place] [address] Emergency Department Summary 05/25/25 MR#: [id number] Acct: [id number] Name: RAJAT GUZMÁN Rep #: [id number] : 1935 89 From: Zackary Matthews MD PCP: Dr. John Noel DO Status:REG ER Location: ED HPI History of Present Illness Chief Complaint: Complaint Informant: patient and family Narrative Narrative: 89-year-old male advised to come to the ER based on culture results that were done in the [facility] system. Apparently he has felt poorly for 1 month. He has an indwelling Rod catheter that is been there for 2 or 3 years. He has been on antibiotics in this past month despite not getting better. Culture that was done earlier in the week that returned today according to family and patient shows something that can only be treated with IV antibiotics so they were advised to go to the hospital and that the records are all in [facility]. He states recently he has had some coughing and shortness of breath. No fevers or chills. No syncope. He is still able to walk and drive just feels very fatigued and weak all over. No GI symptoms. 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 Dyspnea Fatigue Hypokalemia Benign prostatic hypertrophy SBO (small bowel obstruction) Home Medications ???Medication ???Instructions ???Recorded ???Last Taken ???Type aspirin 81 mg tablet,delayed 81 mg PO DAILY 05/23/24 05/25/25 H istory release (Adult Low Dose Aspirin) nitroglycerin 0.4 mg sublingual 0.4 mg sublingual Q5M PRN Chest Unknown Rx tablet Pain #25 tabs tamsulosin 0.4 mg capsule 0.4 mg PO QDAY 05/23/24 05/25/25 H istory simvastatin 20 mg tablet 20 mg PO QHS for cholesterol #90 1 05/24/25 Rx TABLETS carvedilol 6.25 mg tablet 6.25 mg PO BID #60 tabs 11/10/24 0 05/25/25 Rx prednisone 5 mg tablet 2 mg PO QDAY 11/10/24 05/25/25 His tory sacubitril 24 mg-valsartan 26 mg 1 tab PO BID #60 tabs 03/14/25 Rx tablet (Entresto) cephalexin 500 mg capsule 500 mg PO Q6 #28 CAPSULES 04/27/25 05/25/25 Rx diphenhydramine 25 2 tab PO QHS 04/28/25 05/24/25 His tory mg-acetaminophen 500 mg tablet (Tylenol PM Extra Strength) melatonin 10 mg tablet 20 mg PO QHS sleep 04/28/25 History oxybutynin chloride 5 mg tablet 5 mg PO DAILY 04/28/25 05/25/25 Hi story prednisone 1 mg tablet 2 mg PO DAILY 05/25/25 05/25/25 Hi story Allergy/AdvReac Type Severity Reaction Status Date / Time morphine Allergy Intermediate Rash Verified 05/25/25 15:53 zolpidem tartrate (From AdvReac Intermediate CONFUSION Verified 05/25/25 15:53 Ambien) Family History Mother CAD (coronary artery [...] Smoking Status: Never smoker alcohol intake: never (more content not included)... Normal [facility] Eosinophil percentageOrdered By: Zackary Matthews on 05-25-2025 Eosinophils/100 WBC (Bld) 1.9 % Normal 0-5 [facility] Comment on above: Performed By: #### L 501.6710, L3300.6400, L503.7505, L500.4050, L503.6550, L101.9900, L503.6030, L100.0100 #### [facility] Laboratory [address] [place], [place], [id number] Erythrocyte distribution wid th ratioOrdered By: Zackary Matthews on 05-25-2025 Erythrocyte distribution width (RBC) [Ratio] 13.8 % Normal 11.6-14.6 [facility] Comment on above: Performed By: #### L 501.6710, L3300.6400, L503.7505, L500.4050, L503.6550, L101.9900, L503.6030, L100.0100 #### [facility] Laboratory [address] [place], [place], [id number] Erythrocyte distribution wid th standard deviationOrdered By: Zackary Matthews on 05-25-2025 Erythrocyte distribution width (RBC) [Ratio] 45.0 fl High 35.1-43.9 [facility] Glomerular filtration rate ( GFR) estimation/1.73 sq m using serum, plasma, or whole bOrdered By: Zackary Matthews on 05-25-2025 GFR/1.73 sq M.predicted among non-blacks MDRD (S/P/Bld) [Vol rate/Area] 66 mL/min/{1.73_m2} Normal >60 [facility] Comment on above: mL/min/1.73m2 CKD-EP I Creatinine Equation (2020) Result Comment: mL/m in/1.73m2 CKD-EPI Creatinine Equation (2020) Performed By: #### L 501.6710, L3300.6400, L503.7505, L500.4050, L503.6550, L101.9900, L503.6030, L100.0100 #### [facility] Laboratory [address] [facility] [place], [address] H AND P Exam - [facility] 05-25-2025 H&P Exam - Hospitalist [facility] Medical Records Department [address] [place] [address] H P Exam - Hospitalist 05/25/252007 MR#: [id number] Acct: [id number] Name: RAJAT GUZMÁN Rep #: [id number] : 1935 89 From: Suraj Garg DO PCP: Dr. John Noel DO Status:[facility] ER Location: ED HPI - General General Date of Service: 05/25/25 Chief Complaint: Multidrug-resistant UTI. Lethargy. HPI Narrative RAJAT GUZMÁN, is a 89 M who presents due to abnormal urine culture. Patient was admitted at [place] from the with a UTI. He left AGAINST MEDICAL ADVICE before the culture results were available. Patient was discharged with cephalexin. Urine culture came back positive for non- ESBL E. coli, Pseudomonas and Enterococcus. The Enterococcus was low CFU's of 1000 and 10,000. He had an outpatient urine culture through [facility] that grew out ESBL E. coli sensitive only to imipenem, meropenem, piperacillin/tazobactam and Bactrim. Patient was notified of this and instructed to come to the emergency room. In emergency room, patient did receive pip-tazo based on the prior culture results. Patient does since going home has not very well and he is just getting weaker, potential going days without eating. Is also been having some loose stools. Patient was seen with his daughter at bedside. 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 Dyspnea Fatigue Hypokalemia Benign prostatic hypertrophy SBO (small bowel obstruction) Home Medications ???Medication ???Instructions ???Recorded ???Last Taken ???Type aspirin 81 mg tablet,delayed 81 mg PO DAILY 05/23/24 05/25/25 H istory release (Adult Low Dose Aspirin) nitroglycerin 0.4 mg sublingual 0.4 mg sublingual Q5M PRN Chest Unknown Rx tablet Pain #25 tabs tamsulosin 0.4 mg capsule 0.4 mg PO QDAY 05/23/24 05/25/25 H istory simvastatin 20 mg tablet 20 mg PO QHS for cholesterol #90 1 05/24/25 Rx TABLETS carvedilol 6.25 mg tablet 6.25 mg PO BID #60 tabs 11/10/24 0 05/25/25 Rx prednisone 5 mg tablet 2 mg PO QDAY 11/10/24 05/25/25 His tory sacubitril 24 mg-valsartan 26 mg 1 tab PO BID #60 tabs 03/14/25 Rx tablet (Entresto) cephalexin 500 mg capsule 500 mg PO Q6 #28 CAPSULES 04/27/25 05/25/25 Rx diphenhydramine 25 2 tab PO QHS 04/28/25 05/24/25 His tory mg-acetaminophen 500 mg tablet (Tylenol PM Extra Strength) melatonin 10 mg tablet 20 mg PO QHS sleep 04/28/25 History oxybutynin chloride 5 mg tablet 5 mg PO DAILY 04/28/25 05/25/25 Hi story prednisone 1 mg tablet 2 mg PO DAILY 05/25/25 05/25/25 Hi story Allergy/AdvReac Type Severity Reaction Status Date / Time morphine Allergy Intermediate Rash Verified 05/25/25 15:53 zolpidem tartrate (From AdvReac Intermediate CONFUSION Verified 05/25/25 15:53 Ambien) Family History Mother CAD (coronary artery [...] of prostate surgery History of left heart (more content not included)... Normal [facility] Hemoglobin measurementOrdere d By: Zackary Matthews on 05-25-2025 Hemoglobin (Bld) [Mass/Vol] 11.1 g/dL Low 13.0-16.5 [facility] Comment on above: Performed By: #### L 501.6710, L3300.6400, L503.7505, L500.4050, L503.6550, L101.9900, L503.6030, L100.0100 #### [facility] Laboratory [address] [place], [place], [id number] Immature granulocytes/100 WB C Auto (Bld)Ordered By: Zackary Matthews on 05-25-2025 Immature granulocytes/100 WBC (Bld) 0.400 % 0.0-0.9 [facility] Comment on above: IG% - Immature Granu locytes (promyelocytes, myelocytes and metamyelocytes) > 1% indicates that a LEFT SHIFT is Present. International normalized rat io (INR) calculationOrdered By: Zackary Matthews on 05-25-2025 INR Coag (Bld) [Relative time] 1.1 {INR} [facility] Ketones Test strip Ql (U)Ord ered By: Zackary Matthews on 05-25-2025 Ketones Ql (U) 5 mg/dl High Negative [facility] Lactic acid measurementOrder ed By: Zcakary Matthews on 05-25-2025 Lactate [Moles/Vol] 1.2 mmol/L Normal 0.0-2.0 [facility] Comment on above: Order Comment: Y Performed By: #### L 501.6710, L3300.6400, L503.7505, L500.4050, L503.6550, L101.9900, L503.6030, L100.0100 #### [facility] Laboratory [address] [place], [place], [id number] MCV (mean corpuscular volume ) determinationOrdered By: Zackary Matthews on 05-25-2025 MCV (RBC) [Entitic vol] 89.4 fL Normal 80-94 [facility] Comment on above: Performed By: #### L 501.6710, L3300.6400, L503.7505, L500.4050, L503.6550, L101.9900, L503.6030, L100.0100 #### [facility] Laboratory [address] [place], [address] Mean corpuscular hemoglobin (MCH) determinationOrdered By: Zackary Matthews on 05-25-2025 MCH (RBC) [Entitic mass] 29.5 pg Normal 27.0-32.0 [facility] Comment on above: Performed By: #### L 501.6710, L3300.6400, L503.7505, L500.4050, L503.6550, L101.9900, L503.6030, L100.0100 #### [facility] Laboratory [address] [place], [place], [id number] Mean corpuscular hemoglobin concentration (MCHC) determinationOrdered By: Zackary Matthews on 05-25-2025 MCHC (RBC) [Mass/Vol] 33.0 g/dL Normal 32-36 [facility] Comment on above: Performed By: #### L 501.6710, L3300.6400, L503.7505, L500.4050, L503.6550, L101.9900, L503.6030, L100.0100 #### [facility] Laboratory [address] [place], [address] Mean platelet volume determi nationOrdered By: Zackary Matthews on 05-25-2025 Platelet mean volume (Bld) [Entitic vol] 11.8 fL Normal 6.2-12.0 [facility] Comment on above: Performed By: #### L 501.6710, L3300.6400, L503.7505, L500.4050, L503.6550, L101.9900, L503.6030, L100.0100 #### [facility] Laboratory [address] [place], [place], [id number] Microscopic analysis of urin e for red blood cells (RBC)Ordered By: Zackary Matthews on 05-25-2025 Microscopic analysis of urine for red blood cells (RBC) 0-5 SEEN /hpf 0-5 [facility] Monocyte percentageOrdered B y: Zackary Matthews on 05-25-2025 Monocytes/100 WBC (Bld) 12.5 % High 0-10 [facility] Comment on above: Performed By: #### L 501.6710, L3300.6400, L503.7505, L500.4050, L503.6550, L101.9900, L503.6030, L100.0100 #### [facility] Laboratory [address] [place], [place], [id number] (131) Mucus LM Ql (Urine sed)Order ed By: Zackary Matthews on 05-25-2025 Mucus Ql (Urine sed) 0 SEEN /hpf [facility] Neutrophil percentageOrdered By: Zackary Matthews on 05-25-2025 Neutrophils/100 WBC (Bld) 59.5 % Normal 47-70 [facility] Comment on above: Performed By: #### L 501.6710, L3300.6400, L503.7505, L500.4050, L503.6550, L101.9900, L503.6030, L100.0100 #### [facility] Laboratory [address] [place], [address] Nitrite Test strip Ql (U)Ord ered By: Zackary Matthews on 05-25-2025 Nitrite Ql (U) Positive High Negative [facility] Nucleated red blood cell per centageOrdered By: Zackary Matthews on 05-25-2025 Nucleated RBC/100 WBC (Bld) [Ratio] 0 % 0-5 [facility] Partial Thromboplast Timeon 05-25-2025 aPTT Coag (Bld) [Time] 27.9 s Normal 24.1-36.2 [facility] Comment on above: Performed By: #### L 501.6710, L3300.6400, L503.7505, L500.4050, L503.6550, L101.9900, L503.6030, L100.0100 #### [facility] [address] [place], [address] (457 Platelet countOrdered By: Liliana Matthews on 05-25-2025 Platelets (Bld) [#/Vol] 180 10*3/uL Normal 150-450 [facility] Comment on above: Performed By: #### L 501.6710, L3300.6400, L503.7505, L500.4050, L503.6550, L101.9900, L503.6030, L100.0100 #### [facility] [address] [place], [place], [id number] Potassium measurement (mass/ volume)Ordered By: Zackary Matthews on 05-25-2025 Potassium (Unsp spec) [Mass/Vol] 4.7 mmol/L 3.3-5.1 [facility] Comment on above: Hemolysis present, R esults could be affected. Protein Test strip Ql (U)Ord ered By: Zackary Matthews on 05-25-2025 Protein Ql (U) 30 mg/dl High Negative [facility] Prothrombin Time w/INRon INR Coag (PPP) [Relative time] 1.1 {INR} Normal [facility] Comment on above: Performed By: #### L 501.6710, L3300.6400, L503.7505, L500.4050, L503.6550, L101.9900, L503.6030, L100.0100 #### [facility] [address] [place], [address] Prothrombin timeOrdered By: Zackary Matthews on 05-25-2025 PT Coag (PPP) [Time] 14.2 s Normal 11.7-14.9 [facility] Comment on above: Performed By: #### L 501.6710, L3300.6400, L503.7505, L500.4050, L503.6550, L101.9900, L503.6030, L100.0100 #### [facility] [address] [place], [place], [id number] Serum creatinine measurement (mass/volume)Ordered By: Zackary Matthews on 05-25-2025 Creatinine [Mass/Vol] 1.07 mg/dL Normal 0.70-1.20 [facility] Comment on above: Performed By: #### L 501.6710, L3300.6400, L503.7505, L500.4050, L503.6550, L101.9900, L503.6030, L100.0100 #### [facility] [address] [place], [address] Serum globulin measurementOr dered By: Zackary Matthews on 05-25-2025 Globulin (S) [Mass/Vol] 3.6 g/dL Normal 2.2-4.2 [facility] Comment on above: Performed By: #### L 501.6710, L3300.6400, L503.7505, L500.4050, L503.6550, L101.9900, L503.6030, L100.0100 #### [facility] [address] [place], [address] Serum glucose measurement (m ass/volume)Ordered By: Zackary Matthews on 05-25-2025 Glucose [Mass/Vol] 109 mg/dL High 70-99 [facility] Comment on above: Performed By: #### L 501.6710, L3300.6400, L503.7505, L500.4050, L503.6550, L101.9900, L503.6030, L100.0100 #### [facility] [address] [place], [address] Serum or plasma alanine rice otransferase (ALT) measurementOrdered By: Zackary Matthews on 05-25-2025 ALT [Catalytic activity/Vol] 15 U/L Normal <=46 [facility] Comment on above: Performed By: #### L 501.6710, L3300.6400, L503.7505, L500.4050, L503.6550, L101.9900, L503.6030, L100.0100 #### [facility] [address] [place], [address] Serum or plasma albumin alfonso urement (mass/volume)Ordered By: Zackary Matthews on 05-25-2025 Albumin [Mass/Vol] 3.8 g/dL Normal 3.4-4.8 [facility] Comment on above: Performed By: #### L 501.6710, L3300.6400, L503.7505, L500.4050, L503.6550, L101.9900, L503.6030, L100.0100 #### [facility] [address] [place], [address] Serum or plasma albumin/glob ulin mass ratioOrdered By: Zackary Matthews on 05-25-2025 Albumin/Globulin [Mass ratio] 1.1 {ratio} Normal 0.9-2.4 [facility] Comment on above: Performed By: #### L 501.6710, L3300.6400, L503.7505, L500.4050, L503.6550, L101.9900, L503.6030, L100.0100 #### [facility] [address] [place], [address] Serum or plasma alkaline rory sphatase measurementOrdered By: Zackary Matthews on 05-25-2025 ALP [Catalytic activity/Vol] 49 U/L 40-129 [facility] Serum or plasma calcium alfonso urement (mass/volume)Ordered By: Zackary Matthews on 05-25-2025 Calcium [Mass/Vol] 9.2 mg/dL Normal 7.6-11.0 [facility] Comment on above: Performed By: #### L 501.6710, L3300.6400, L503.7505, L500.4050, L503.6550, L101.9900, L503.6030, L100.0100 #### [facility] [address] [place], [address] Serum or plasma urea nitroge n measurement (mass/volume)Ordered By: Zackary Matthews on 05-25-2025 Urea nitrogen [Mass/Vol] 22 mg/dL High 4-19 [facility] Comment on above: Performed By: #### L 501.6710, L3300.6400, L503.7505, L500.4050, L503.6550, L101.9900, L503.6030, L100.0100 #### [facility] [address] [place], [address] Sodium levelOrdered By: David Matthews on 05-25-2025 Sodium [Moles/Vol] 135 mmol/L Normal 133-145 [facility] Comment on above: Performed By: #### L 501.6710, L3300.6400, L503.7505, L500.4050, L503.6550, L101.9900, L503.6030, L100.0100 #### [facility] [address] [place], [address] Squamous epithelial cells de tection in urine sediment by light microscopyOrdered By: Zackary Matthews on 05-25-2025 Epithelial cells.squamous LM Ql (Urine sed) 0-5 SEEN /hpf 0-5 [facility] Total proteinOrdered By: Clarita Matthews on 05-25-2025 Protein [Mass/Vol] 7.4 g/dL 5.9-8.4 [facility] Transitional cells detection in urine sediment by light microscopyOrdered By: Zackary Matthews on 05-25-2025 Transitional cells LM Ql (Urine sed) 0-5 SEEN /hpf 0-5 [facility] Urinalysis, Completeon 05-25 BACTERIA 2+ /hpf Normal None Seen [facility] Comment on above: Order Comment: ULISES CTOR TO SPECIFY Performed By: #### L 501.6710, L3300.6400, L503.7505, L500.4050, L503.6550, L101.9900, L503.6030, L100.0100 #### [facility] [address] [place], [address] EPI,SQUAMOUS 0-5 SEEN Normal 0-5 [facility] Comment on above: Order Comment: COLLE CTOR TO SPECIFY Performed By: #### L 501.6710, L3300.6400, L503.7505, L500.4050, L503.6550, L101.9900, L503.6030, L100.0100 #### [facility] [address] [place], [address] EPI,TRANSITION 0-5 SEEN Normal 0-5 [facility] Comment on above: Order Comment: COLLE CTOR TO SPECIFY Performed By: #### L 501.6710, L3300.6400, L503.7505, L500.4050, L503.6550, L101.9900, L503.6030, L100.0100 #### [facility] [address] [place], [address] WBC 10-25 SEEN Normal 0-5 [facility] Comment on above: Order Comment: ULISES CTOR TO SPECIFY Performed By: #### L 501.6710, L3300.6400, L503.7505, L500.4050, L503.6550, L101.9900, L503.6030, L100.0100 #### [facility] [address] [place], [address] RBC 0-5 SEEN Normal 0-5 [facility] Comment on above: Order Comment: ULISES CTOR TO SPECIFY Performed By: #### L 501.6710, L3300.6400, L503.7505, L500.4050, L503.6550, L101.9900, L503.6030, L100.0100 #### [facility] [address] [place], [address] Mucus Ql (Urine sed) 0 SEEN Normal [facility] Comment on above: Order Comment: COLLE CTOR TO SPECIFY Performed By: #### L 501.6710, L3300.6400, L503.7505, L500.4050, L503.6550, L101.9900, L503.6030, L100.0100 #### [facility] [address] [place], [address] Urine clarityOrdered By: Clarita Matthews on 05-25-2025 Clarity (U) Sl. Cloudy Clear [facility] Urine color determinationOrd ered By: Zackary Matthews on 05-25-2025 Color (U) Yellow Yellow [facility] Urine glucose detectionOrder ed By: Zackary Matthews on 05-25-2025 Glucose Ql (U) Normal mg/dl Normal [facility] Urine leukocyte esterase det ection by dipstickOrdered By: Zackary Matthews on 05-25-2025 Leukocyte esterase Test strip Ql (U) 500 /ul High Negative [facility] Urine pHOrdered By: Zackary Matthews on 05-25-2025 pH (U) 6.0 [pH] 5.0 - 8.0 [facility] Urine sediment bacteria coun t by microscopy (number/high power field)Ordered By: Zackary Matthews on 05-25-2025 Bacteria LM.HPF (Urine sed) [#/Area] 2 /[HPF] None Seen [facility] Urine specific gravity measu rementOrdered By: Zackary Matthews on 05-25-2025 Specific gravity (U) [Rel density] 1.015 1.002-1.03 0 [facility] Urine urobilinogen measureme ntOrdered By: Zackary Matthews on 05-25-2025 Urobilinogen Ql (U) Normal mg/dl Normal [facility] White blood cell (WBC) count Ordered By: Zackary Matthews on 05-25-2025 WBC (Bld) [#/Vol] 8.2 10*3/uL Normal 4.4-11.0 [facility] Comment on above: Performed By: #### L 501.6710, L3300.6400, L503.7505, L500.4050, L503.6550, L101.9900, L503.6030, L100.0100 #### [facility] [address] [place], [place], [id number] White blood cell countOrdere d By: Zackary Matthews on 05-25-2025 White blood cell count 10-25 SEEN /hpf 0-5 [facility] Abdomen Single Viewon 2024 Abdomen Single View [facility] [address] [place] [address] Abdomen Single View MR#: [id number] Acct: [id number] Name: RAJAT GUZMÁN Rep #: [id number] : 1935 M 89 From: John Pringle MD PCP: Dr. John Noel DO Status: REG CLI Study: Abdomen Single View Date of Exam: 05/09/25 Exam# [id number] Ordering Dr: John Noel DO EXAM: XR [...] the colon consistent with constipation. Reading Location: [facility] CC: Dr. John Noel DO Alternative Dispute Resolution Mediator: Signed Normal [facility] Urine Cultureon 05-03-2025 [facility] Urine Culture Escherichia coli [place] Count 50,000-80,000 Pseudomonas aeruginosa Pseudomonas aeruginosa EGAL [place] Count 1000-10,000 Enterococcus gallinarum Ampicillin Islt ALEX <=2 Ampicillin+Sulbac Islt ALEX <=2 S Cefepime Islt ALEX <=0.12 cefTRIAXone Islt ALEX <=0.25 S Ciprofloxacin Islt ALEX >=4 R B-Lactamase Extended Susc Islt NEG [...] R Normal [facility] Comment on above: Performed By: #### L 501.6710, L3300.6400, L503.7505, L500.4050, L503.6550, L101.9900, L503.6030, L100.0100 #### [facility] [address] [facility] [place], [place], [id number] Absolute lymphocyte countOrd ered By: Manisha Varela on 04-29-2025 Lymphocytes Auto (Unsp spec) [#/Vol] 1.88 10*3/uL 0.83-4.51 [facility] Absolute neutrophil countOrd ered By: Manisha Varela on 04-29-2025 Neutrophils (Bld) [#/Vol] 6.7 10*3/uL 2.0-7.7 [facility] Anion gap in Serum or Plasma Ordered By: Manisha Varela on 04-29-2025 Anion gap [Moles/Vol] 12 mmol/L 5-15 [facility] Automated lymphocyte count a s percentage of total leukocytesOrdered By: Manisha Varela on 04-29-2025 Lymphocytes/100 WBC Auto (Unsp spec) 19.4 % 19-41 [facility] BUN/creatinine ratioOrdered By: Manisha Varela on 04-29-2025 Urea nitrogen/Creatinine [Mass ratio] 9.2 mg/mg Low 10-20 [facility] Basic Metabolic Profile (BMP )on 04-29-2025 BUN/CRE 9.2 RATIO Low - [facility] Comment on above: Performed By: #### L 501.6710, L3300.6400, L503.7505, L500.4050, L503.6550, L101.9900, L503.6030, L100.0100 #### [facility] [address] [place], [address] Calcium [Mass/Vol] 9.1 mg/dL Normal 7.6-11.0 [facility] Comment on above: Performed By: #### L 501.6710, L3300.6400, L503.7505, L500.4050, L503.6550, L101.9900, L503.6030, L100.0100 #### [facility] [address] [place], [address] Chloride [Moles/Vol] 102 mmol/L Normal 98-108 [facility] Comment on above: Performed By: #### L 501.6710, L3300.6400, L503.7505, L500.4050, L503.6550, L101.9900, L503.6030, L100.0100 #### [facility] [address] [place], [address] CO2 [Moles/Vol] 24.4 mmol/L Normal 21.0-32.0 [facility] Comment on above: Performed By: #### L 501.6710, L3300.6400, L503.7505, L500.4050, L503.6550, L101.9900, L503.6030, L100.0100 #### [facility] [address] [place], [address] Creatinine [Mass/Vol] 0.88 mg/dL Normal 0.70-1.20 [facility] Comment on above: Performed By: #### L 501.6710, L3300.6400, L503.7505, L500.4050, L503.6550, L101.9900, L503.6030, L100.0100 #### [facility] [address] [place], [address] ECRCL 42.72 ml/min Low 50-250 [facility] Comment on above: Performed By: #### L 501.6710, L3300.6400, L503.7505, L500.4050, L503.6550, L101.9900, L503.6030, L100.0100 #### [facility] [address] [place], [address] GAP 12 Normal 5-15 [facility] Comment on above: Performed By: #### L 501.6710, L3300.6400, L503.7505, L500.4050, L503.6550, L101.9900, L503.6030, L100.0100 #### [facility] [address] [place], [address] GFR/1.73 sq M.predicted among non-blacks MDRD (S/P/Bld) [Vol rate/Area] 82 mL/min/{1.73_m2} Normal >60 [facility] Comment on above: Result Comment: mL/m in/1.73m2 CKD-EPI Creatinine Equation (2020) Performed By: #### L 501.6710, L3300.6400, L503.7505, L500.4050, L503.6550, L101.9900, L503.6030, L100.0100 #### [facility] [address] [place], [address] Glucose [Mass/Vol] 124 mg/dL High 70-99 [facility] Comment on above: Performed By: #### L 501.6710, L3300.6400, L503.7505, L500.4050, L503.6550, L101.9900, L503.6030, L100.0100 #### [facility] [address] [place], [address] Potassium [Moles/Vol] 4.1 mmol/L Normal 3.3-5.1 [facility] Comment on above: Performed By: #### L 501.6710, L3300.6400, L503.7505, L500.4050, L503.6550, L101.9900, L503.6030, L100.0100 #### [facility] [address] [place], [address] Sodium [Moles/Vol] 138 mmol/L Normal 133-145 [facility] Comment on above: Performed By: #### L 501.6710, L3300.6400, L503.7505, L500.4050, L503.6550, L101.9900, L503.6030, L100.0100 #### [facility] [address] [place], [address] Urea nitrogen [Mass/Vol] 8 mg/dL Normal 4-19 [facility] Comment on above: Performed By: #### L 501.6710, L3300.6400, L503.7505, L500.4050, L503.6550, L101.9900, L503.6030, L100.0100 #### [facility] [address] [facility] [address] [place], [place], [id number] Basophil percentageOrdered B y: Manishageoff Varela on 04-29-2025 Basophils/100 WBC (Bld) 0.2 % 0-1 [facility] CBC W/Diff, Automatedon 04-02 Absolute Lymph 1.88 X10 3/uL Normal 0.83-4.51 [facility] Comment on above: Performed By: #### L 501.6710, L3300.6400, L503.7505, L500.4050, L503.6550, L101.9900, L503.6030, L100.0100 #### [facility] [address] [place], [address] Absolute Neut 6.7 X10 3/uL Normal 2.0-7.7 [facility] Comment on above: Performed By: #### L 501.6710, L3300.6400, L503.7505, L500.4050, L503.6550, L101.9900, L503.6030, L100.0100 #### [facility] [address] [place], [address] Basophils/100 WBC (Bld) 0.2 % Normal 0-1 [facility] Comment on above: Performed By: #### L 501.6710, L3300.6400, L503.7505, L500.4050, L503.6550, L101.9900, L503.6030, L100.0100 #### [facility] [address] [place], [address] Eosinophils/100 WBC (Bld) 0.2 % Normal 0-5 [facility] Comment on above: Performed By: #### L 501.6710, L3300.6400, L503.7505, L500.4050, L503.6550, L101.9900, L503.6030, L100.0100 #### [facility] [address] [place], [address] Erythrocyte distribution width (RBC) [Ratio] 13.3 % Normal 11.6-14.6 [facility] Comment on above: Performed By: #### L 501.6710, L3300.6400, L503.7505, L500.4050, L503.6550, L101.9900, L503.6030, L100.0100 #### [facility] [address] [place], [address] Hematocrit (Bld) [Volume fraction] 35.2 % Low 40-54 [facility] Comment on above: Performed By: #### L 501.6710, L3300.6400, L503.7505, L500.4050, L503.6550, L101.9900, L503.6030, L100.0100 #### [facility] [address] [place], [address] Hemoglobin (Bld) [Mass/Vol] 11.6 g/dL Low 13.0-16.5 [facility] Comment on above: Performed By: #### L 501.6710, L3300.6400, L503.7505, L500.4050, L503.6550, L101.9900, L503.6030, L100.0100 #### [facility] [address] [place], [address] IG% 0.400 Normal 0.0-0.9 [facility] Comment on above: Result Comment: IG% - Immature Granulocytes (promyelocytes, myelocytes and metamyelocytes) > 1% indicates that a LEFT SHIFT is Present. Performed By: #### L 501.6710, L3300.6400, L503.7505, L500.4050, L503.6550, L101.9900, L503.6030, L100.0100 #### [facility] [address] [facility] [place], [address] Lymphocytes/100 WBC (Bld) 19.4 % Normal 19-41 [facility] Comment on above: Performed By: #### L 501.6710, L3300.6400, L503.7505, L500.4050, L503.6550, L101.9900, L503.6030, L100.0100 #### [facility] [address] [place], [address] MCH (RBC) [Entitic mass] 29.8 pg Normal 27.0-32.0 [facility] Comment on above: Performed By: #### L 501.6710, L3300.6400, L503.7505, L500.4050, L503.6550, L101.9900, L503.6030, L100.0100 #### [facility] [address] [facility] [place], [address] MCHC (RBC) [Mass/Vol] 33.0 g/dL Normal 32-36 [facility] Comment on above: Performed By: #### L 501.6710, L3300.6400, L503.7505, L500.4050, L503.6550, L101.9900, L503.6030, L100.0100 #### [facility] [address] [place], [address] MCV (RBC) [Entitic vol] 90.5 fL Normal 80-94 [facility] Comment on above: Performed By: #### L 501.6710, L3300.6400, L503.7505, L500.4050, L503.6550, L101.9900, L503.6030, L100.0100 #### [facility] [address] [place], [address] Monocytes/100 WBC (Bld) 10.6 % High 0-10 [facility] Comment on above: Performed By: #### L 501.6710, L3300.6400, L503.7505, L500.4050, L503.6550, L101.9900, L503.6030, L100.0100 #### [facility] [address] [place], [address] Neutrophils/100 WBC (Bld) 69.2 % Normal 47-70 [facility] Comment on above: Performed By: #### L 501.6710, L3300.6400, L503.7505, L500.4050, L503.6550, L101.9900, L503.6030, L100.0100 #### [facility] [address] [place], [address] Nucleated RBC (Bld) [#/Vol] 0 10*3/uL Normal 0-5 [facility] Comment on above: Performed By: #### L 501.6710, L3300.6400, L503.7505, L500.4050, L503.6550, L101.9900, L503.6030, L100.0100 #### [facility] [address] [place], [address] Platelet mean volume (Bld) [Entitic vol] 11.0 fL Normal 6.2-12.0 [facility] Comment on above: Performed By: #### L 501.6710, L3300.6400, L503.7505, L500.4050, L503.6550, L101.9900, L503.6030, L100.0100 #### [facility] [address] [place], [address] Platelets (Bld) [#/Vol] 185 10*3/uL Normal 150-450 [facility] Comment on above: Performed By: #### L 501.6710, L3300.6400, L503.7505, L500.4050, L503.6550, L101.9900, L503.6030, L100.0100 #### [facility] [address] [place], [address] RBC (Bld) [#/Vol] 3.89 10*6/uL Low 4.6-6.2 [facility] Comment on above: Performed By: #### L 501.6710, L3300.6400, L503.7505, L500.4050, L503.6550, L101.9900, L503.6030, L100.0100 #### [facility] [address] [place], [address] RDW SD 43.8 fl Normal 35.1-43.9 [facility] Comment on above: Performed By: #### L 501.6710, L3300.6400, L503.7505, L500.4050, L503.6550, L101.9900, L503.6030, L100.0100 #### [facility] [address] [place], [address] WBC (Bld) [#/Vol] 9.7 10*3/uL Normal 4.4-11.0 [facility] Comment on above: Performed By: #### L 501.6710, L3300.6400, L503.7505, L500.1730, L503.7950, L101.9900, L503.6030, L100.0100 #### [facility] [address] [place], [address] Carbon dioxide, total [Moles /volume] in Central venous bloodOrdered By: Manisha Varela on 04-29-2025 CO2 [Moles/Vol] 24.4 mmol/L 21.0-32.0 [facility] Chloride assayOrdered By: Umer Varela on 04-29-2025 Chloride [Moles/Vol] 102 mmol/L 98-108 [facility] Eosinophil percentageOrdered By: Manisha Varela on 04-29-2025 Eosinophils/100 WBC (Bld) 0.2 % 0-5 [facility] Erythrocyte distribution wid th ratioOrdered By: Manisha Varela on 04-29-2025 Erythrocyte distribution width (RBC) [Ratio] 13.3 % 11.6-14.6 [facility] Erythrocyte distribution wid th standard deviationOrdered By: Manisha Varela on 04-29-2025 Erythrocyte distribution width (RBC) [Ratio] 43.8 fl 35.1-43.9 [facility] Glomerular filtration rate ( GFR) estimation/1.73 sq m using serum, plasma, or whole bOrdered By: Manisha Varela on 04-29-2025 GFR/1.73 sq M.predicted among non-blacks MDRD (S/P/Bld) [Vol rate/Area] 82 mL/min/{1.73_m2} >60 [facility] Comment on above: mL/min/1.73m2 CKD-EP I Creatinine Equation (2020) Hematocrit Auto (Bld) [Volum e fraction]Ordered By: Manisha Varela on 04-29-2025 Hematocrit (Bld) [Volume fraction] 35.2 % Low 40-54 [facility] Hemoglobin measurementOrdere d By: Manisha Varela on 04-29-2025 Hemoglobin (Bld) [Mass/Vol] 11.6 g/dL Low 13.0-16.5 [facility] Immature granulocytes/100 WB C Auto (Bld)Ordered By: Manisha Varela on 04-29-2025 Immature granulocytes/100 WBC (Bld) 0.400 % 0.0-0.9 [facility] Comment on above: IG% - Immature Granu locytes (promyelocytes, myelocytes and metamyelocytes) > 1% indicates that a LEFT SHIFT is Present. MCV (mean corpuscular volume ) determinationOrdered By: Manisha Varela on 04-29-2025 MCV (RBC) [Entitic vol] 90.5 fL 80-94 [facility] Mean corpuscular hemoglobin (MCH) determinationOrdered By: Manisha Varela on 04-29-2025 MCH (RBC) [Entitic mass] 29.8 pg 27.0-32.0 [facility] Mean corpuscular hemoglobin concentration (MCHC) determinationOrdered By: Manisha Varela on 04-29-2025 MCHC (RBC) [Mass/Vol] 33.0 g/dL 32-36 [facility] Mean platelet volume determi nationOrdered By: Manisha Varela on 04-29-2025 Platelet mean volume (Bld) [Entitic vol] 11.0 fL 6.2-12.0 [facility] Monocyte percentageOrdered B y: Manisha Varela on 04-29-2025 Monocytes/100 WBC (Bld) 10.6 % High 0-10 [facility] Neutrophil percentageOrdered By: Manisha Varela on 04-29-2025 Neutrophils/100 WBC (Bld) 69.2 % 47-70 [facility] Nucleated red blood cell per centageOrdered By: Manisha Varela on 04-29-2025 Nucleated RBC/100 WBC (Bld) [Ratio] 0 % 0-5 [facility] Platelet countOrdered By: Umer Varela on 04-29-2025 Platelets (Bld) [#/Vol] 185 10*3/uL 150-450 [facility] Potassium measurement (mass/ volume)Ordered By: Manisha Varela on 04-29-2025 Potassium (Unsp spec) [Mass/Vol] 4.1 mmol/L 3.3-5.1 [facility] RBC Auto (Bld) [#/Vol]Ordere d By: Manisha Varela on 04-29-2025 RBC (Bld) [#/Vol] 3.89 10*6/uL Low 4.6-6.2 [facility] Serum creatinine measurement (mass/volume)Ordered By: Manisha Varela on 04-29-2025 Creatinine [Mass/Vol] 0.88 mg/dL 0.70-1.20 [facility] Serum glucose measurement (m ass/volume)Ordered By: Manisha Varela on 04-29-2025 Glucose [Mass/Vol] 124 mg/dL High 70-99 [facility] Serum or plasma calcium alfonso urement (mass/volume)Ordered By: Manisha Varela on 04-29-2025 Calcium [Mass/Vol] 9.1 mg/dL 7.6-11.0 [facility] Serum or plasma urea nitroge n measurement (mass/volume)Ordered By: Manisha Varela on 04-29-2025 Urea nitrogen [Mass/Vol] 8 mg/dL 4-19 [facility] Sodium levelOrdered By: Erma Varela on 04-29-2025 Sodium [Moles/Vol] 138 mmol/L 133-145 [facility] White blood cell (WBC) count Ordered By: Manisha Varela on 04-29-2025 WBC (Bld) [#/Vol] 9.7 10*3/uL 4.4-11.0 [facility] Absolute lymphocyte countOrd ered By: Henok Villarreal on 04-28-2025 Lymphocytes Auto (Unsp spec) [#/Vol] 2.05 10*3/uL 0.83-4.51 [facility] Absolute neutrophil countOrd ered By: Henok Villarreal on 04-28-2025 Neutrophils (Bld) [#/Vol] 8.3 10*3/uL High 2.0-7.7 [facility] Anion gap in Serum or Plasma Ordered By: Henok Villarreal on 04-28-2025 Anion gap [Moles/Vol] 12 mmol/L 5-15 [facility] Automated lymphocyte count a s percentage of total leukocytesOrdered By: Henok Villarreal on 04-28-2025 Lymphocytes/100 WBC Auto (Unsp spec) 17.9 % Low 19-41 [facility] BUN/creatinine ratioOrdered By: Henok Villarreal on 04-28-2025 Urea nitrogen/Creatinine [Mass ratio] 10.5 mg/mg 10-20 [facility] Basophil percentageOrdered B y: Henok Villarreal on 04-28-2025 Basophils/100 WBC (Bld) 0.4 % 0-1 [facility] Bilirubin, totalOrdered By: Henok Villarreal on 04-28-2025 Bilirubin [Mass/Vol] 0.81 mg/dL 0.00-1.30 [facility] CBC W/Diff, Automatedon 04-02 Absolute Lymph 2.05 X10 3/uL Normal 0.83-4.51 [facility] Comment on above: Performed By: #### L 501.6710, L3300.6400, L503.7505, L500.4050, L503.6550, L101.9900, L503.6030, L100.0100 #### [facility] Laboratory [address] [place], [address] Absolute Neut 8.3 X10 3/uL High 2.0-7.7 [facility] Comment on above: Performed By: #### L 501.6710, L3300.6400, L503.7505, L500.4050, L503.6550, L101.9900, L503.6030, L100.0100 #### [facility] Laboratory [address] [place], [address] Basophils/100 WBC (Bld) 0.4 % Normal 0-1 [facility] Comment on above: Performed By: #### L 501.6710, L3300.6400, L503.7505, L500.4050, L503.6550, L101.9900, L503.6030, L100.0100 #### [facility] Laboratory [address] [place], [address] Eosinophils/100 WBC (Bld) 0.2 % Normal 0-5 [facility] Comment on above: Performed By: #### L 501.6710, L3300.6400, L503.7505, L500.4050, L503.6550, L101.9900, L503.6030, L100.0100 #### [facility] Laboratory [address] [place], [address] Erythrocyte distribution width (RBC) [Ratio] 13.4 % Normal 11.6-14.6 [facility] Comment on above: Performed By: #### L 501.6710, L3300.6400, L503.7505, L500.4050, L503.6550, L101.9900, L503.6030, L100.0100 #### [facility] [address] [place], [address] Hematocrit (Bld) [Volume fraction] 37.3 % Low 40-54 [facility] Comment on above: Performed By: #### L 501.6710, L3300.6400, L503.7505, L500.4050, L503.6550, L101.9900, L503.6030, L100.0100 #### [facility] Laboratory [address] [place], [address] Hemoglobin (Bld) [Mass/Vol] 12.4 g/dL Low 13.0-16.5 [facility] Comment on above: Performed By: #### L 501.6710, L3300.6400, L503.7505, L500.4050, L503.6550, L101.9900, L503.6030, L100.0100 #### [facility] [address] [place], [address] IG% 0.200 Normal 0.0-0.9 [facility] Comment on above: Result Comment: IG% - Immature Granulocytes (promyelocytes, myelocytes and metamyelocytes) > 1% indicates that a LEFT SHIFT is Present. Performed By: #### L 501.6710, L3300.6400, L503.7505, L500.4050, L503.6550, L101.9900, L503.6030, L100.0100 #### [facility] [address] [place], [address] Lymphocytes/100 WBC (Bld) 17.9 % Low 19-41 [facility] Comment on above: Performed By: #### L 501.6710, L3300.6400, L503.7505, L500.4050, L503.6550, L101.9900, L503.6030, L100.0100 #### [facility] Laboratory [address] [place], [address] MCH (RBC) [Entitic mass] 30.0 pg Normal 27.0-32.0 [facility] Comment on above: Performed By: #### L 501.6710, L3300.6400, L503.7505, L500.4050, L503.6550, L101.9900, L503.6030, L100.0100 #### [facility] Laboratory [address] [place], [address] MCHC (RBC) [Mass/Vol] 33.2 g/dL Normal 32-36 [facility] Comment on above: Performed By: #### L 501.6710, L3300.6400, L503.7505, L500.4050, L503.6550, L101.9900, L503.6030, L100.0100 #### [facility] Laboratory [address] [place], [address] MCV (RBC) [Entitic vol] 90.1 fL Normal 80-94 [facility] Comment on above: Performed By: #### L 501.6710, L3300.6400, L503.7505, L500.4050, L503.6550, L101.9900, L503.6030, L100.0100 #### [facility] [address] [place], [address] Monocytes/100 WBC (Bld) 8.6 % Normal 0-10 [facility] Comment on above: Performed By: #### L 501.6710, L3300.6400, L503.7505, L500.4050, L503.6550, L101.9900, L503.6030, L100.0100 #### [facility] Laboratory [address] [place], [address] Neutrophils/100 WBC (Bld) 72.7 % High 47-70 [facility] Comment on above: Performed By: #### L 501.6710, L3300.6400, L503.7505, L500.4050, L503.6550, L101.9900, L503.6030, L100.0100 #### [facility] Laboratory [address] [place], [address] Nucleated RBC (Bld) [#/Vol] 0 10*3/uL Normal 0-5 [facility] Comment on above: Performed By: #### L 501.6710, L3300.6400, L503.7505, L500.4050, L503.6550, L101.9900, L503.6030, L100.0100 #### [facility] Laboratory [address] [place], [address] Platelet mean volume (Bld) [Entitic vol] 10.6 fL Normal 6.2-12.0 [facility] Comment on above: Performed By: #### L 501.6710, L3300.6400, L503.7505, L500.4050, L503.6550, L101.9900, L503.6030, L100.0100 #### [facility] Laboratory [address] [place], [address] Platelets (Bld) [#/Vol] 189 10*3/uL Normal 150-450 [facility] Comment on above: Performed By: #### L 501.6710, L3300.6400, L503.7505, L500.4050, L503.6550, L101.9900, L503.6030, L100.0100 #### [facility] Laboratory [address] [place], [address] RBC (Bld) [#/Vol] 4.14 10*6/uL Low 4.6-6.2 [facility] Comment on above: Performed By: #### L 501.6710, L3300.6400, L503.7505, L500.4050, L503.6550, L101.9900, L503.6030, L100.0100 #### [facility] Laboratory [address] [place], [address] RDW SD 44.0 fl High 35.1-43.9 [facility] Comment on above: Performed By: #### L 501.6710, L3300.6400, L503.7505, L500.4050, L503.6550, L101.9900, L503.6030, L100.0100 #### [facility] [address] [place], [address] WBC (Bld) [#/Vol] 11.5 10*3/uL High 4.4-11.0 [facility] Comment on above: Performed By: #### L 501.6710, L3300.6400, L503.7505, L500.4050, L503.6550, L101.9900, L503.6030, L100.0100 #### [facility] Laboratory [address] [place], [address] Carbon dioxide, total [Moles /volume] in Central venous bloodOrdered By: Henok Villarreal on 04-28-2025 CO2 [Moles/Vol] 24.7 mmol/L 21.0-32.0 [facility] Chloride assayOrdered By: Ug o Phil on 04-28-2025 Chloride [Moles/Vol] 99 mmol/L 98-108 [facility] Comprehensive Metabolic Prof ilon 04-28-2025 Albumin [Mass/Vol] 3.9 g/dL Normal 3.4-4.8 [facility] Comment on above: Performed By: #### L 501.6710, L3300.6400, L503.7505, L500.4050, L503.6550, L101.9900, L503.6030, L100.0100 #### [facility] Laboratory [address] [place], [address] Albumin/Globulin [Mass ratio] 1.2 {ratio} Normal 0.9-2.4 [facility] Comment on above: Performed By: #### L 501.6710, L3300.6400, L503.7505, L500.4050, L503.6550, L101.9900, L503.6030, L100.0100 #### [facility] Laboratory [address] [place], [address] ALK PHOS 64 U/L Normal 40-129 [facility] Comment on above: Performed By: #### L 501.6710, L3300.6400, L503.7505, L500.4050, L503.6550, L101.9900, L503.6030, L100.0100 #### [facility] Laboratory [address] [place], [address] ALT [Catalytic activity/Vol] 10 U/L Normal <=46 [facility] Comment on above: Performed By: #### L 501.6710, L3300.6400, L503.7505, L500.4050, L503.6550, L101.9900, L503.6030, L100.0100 #### [facility] [address] [place], [address] AST [Catalytic activity/Vol] 21 U/L Normal <=37 [facility] Comment on above: Performed By: #### L 501.6710, L3300.6400, L503.7505, L500.4050, L503.6550, L101.9900, L503.6030, L100.0100 #### [facility] [address] [place], [address] Bilirubin [Mass/Vol] 0.81 mg/dL Normal 0.00-1.30 [facility] Comment on above: Performed By: #### L 501.6710, L3300.6400, L503.7505, L500.4050, L503.6550, L101.9900, L503.6030, L100.0100 #### [facility] [address] [place], [address] BUN/CRE 10.5 RATIO Normal 10-20 [facility] Comment on above: Performed By: #### L 501.6710, L3300.6400, L503.7505, L500.4050, L503.6550, L101.9900, L503.6030, L100.0100 #### [facility] [address] [place], [address] Calcium [Mass/Vol] 9.3 mg/dL Normal 7.6-11.0 [facility] Comment on above: Performed By: #### L 501.6710, L3300.6400, L503.7505, L500.4050, L503.6550, L101.9900, L503.6030, L100.0100 #### [facility] [address] [place], [address] Chloride [Moles/Vol] 99 mmol/L Normal 98-108 [facility] Comment on above: Performed By: #### L 501.6710, L3300.6400, L503.7505, L500.4050, L503.6550, L101.9900, L503.6030, L100.0100 #### [facility] [address] [place], [address] CO2 [Moles/Vol] 24.7 mmol/L Normal 21.0-32.0 [facility] Comment on above: Performed By: #### L 501.6710, L3300.6400, L503.7505, L500.4050, L503.6550, L101.9900, L503.6030, L100.0100 #### [facility] [address] [place], [address] Creatinine [Mass/Vol] 0.82 mg/dL Normal 0.70-1.20 [facility] Comment on above: Performed By: #### L 501.6710, L3300.6400, L503.7505, L500.4050, L503.6550, L101.9900, L503.6030, L100.0100 #### [facility] [address] [place], [address] ECRCL 46.43 ml/min Low 50-250 [facility] Comment on above: Performed By: #### L 501.6710, L3300.6400, L503.7505, L500.4050, L503.6550, L101.9900, L503.6030, L100.0100 #### [facility] [address] [place], [address] GAP 12 Normal 5-15 [facility] Comment on above: Performed By: #### L 501.6710, L3300.6400, L503.7505, L500.4050, L503.6550, L101.9900, L503.6030, L100.0100 #### [facility] [address] [place], [address] GFR/1.73 sq M.predicted among non-blacks MDRD (S/P/Bld) [Vol rate/Area] 84 mL/min/{1.73_m2} Normal >60 [facility] Comment on above: Result Comment: mL/m in/1.73m2 CKD-EPI Creatinine Equation (2020) Performed By: #### L 501.6710, L3300.6400, L503.7505, L500.4050, L503.6550, L101.9900, L503.6030, L100.0100 #### [facility] Laboratory [address] [place], [address] Globulin (S) [Mass/Vol] 3.3 g/dL Normal 2.2-4.2 [facility] Comment on above: Performed By: #### L 501.6710, L3300.6400, L503.7505, L500.4050, L503.6550, L101.9900, L503.6030, L100.0100 #### [facility] [address] [place], [address] Glucose [Mass/Vol] 149 mg/dL High 70-99 [facility] Comment on above: Performed By: #### L 501.6710, L3300.6400, L503.7505, L500.4050, L503.6550, L101.9900, L503.6030, L100.0100 #### [facility] [address] [place], [address] Potassium [Moles/Vol] 3.8 mmol/L Normal 3.3-5.1 [facility] Comment on above: Performed By: #### L 501.6710, L3300.6400, L503.7505, L500.4050, L503.6550, L101.9900, L503.6030, L100.0100 #### [facility] [address] [place], [address] Sodium [Moles/Vol] 137 mmol/L Normal 133-145 [facility] Comment on above: Performed By: #### L 501.6710, L3300.6400, L503.7505, L500.4050, L503.6550, L101.9900, L503.6030, L100.0100 #### [facility] [address] [place], [address] T PROT 7.3 g/dL Normal 5.9-8.4 [facility] Comment on above: Performed By: #### L 501.6710, L3300.6400, L503.7505, L500.4050, L503.6550, L101.9900, L503.6030, L100.0100 #### [facility] [address] [facility] [place], [place], [address] Urea nitrogen [Mass/Vol] 9 mg/dL Normal 4-19 [facility] Comment on above: Performed By: #### L 501.6710, L3300.6400, L503.7505, L500.4050, L503.6550, L101.9900, L503.6030, L100.0100 #### [facility] [address] [place], [address] Emergency Department Summary on 04-28-2025 Emergency Department Summary [facility] Medical Records Department [address] [place] [address] Emergency Department Summary 04/28/25 MR#: [id number] Acct: [id number] Name: RAJAT GUZMÁN Stacia Rep #: [id number] : 1935 89 From: Henok Villarreal MD [...] Prior similar symptoms: Yes Recent Illness/Hospitalization: Yes 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 Normal [facility] Eosinophil percentageOrdered By: Henok Villarreal on 04-28-2025 Eosinophils/100 WBC (Bld) 0.2 % 0-5 [facility] Erythrocyte distribution wid th ratioOrdered By: Henok Villarreal on 04-28-2025 Erythrocyte distribution width (RBC) [Ratio] 13.4 % 11.6-14.6 [facility] Erythrocyte distribution wid th standard deviationOrdered By: Henok Villarreal on 04-28-2025 Erythrocyte distribution width (RBC) [Ratio] 44.0 fl High 35.1-43.9 [facility] Glomerular filtration rate ( GFR) estimation/1.73 sq m using serum, plasma, or whole bOrdered By: Henok Villarreal on 04-28-2025 GFR/1.73 sq M.predicted among non-blacks MDRD (S/P/Bld) [Vol rate/Area] 84 mL/min/{1.73_m2} >60 [facility] Comment on above: mL/min/1.73m2 CKD-EP I Creatinine Equation (2020) H AND P Exam - [facility] 04-28-2025 H&P Exam - Hospitalist [facility] Medical Records Department [address] [place] [address] H P Exam - Hospitalist 04/28/25 1832 MR#: [id number] Acct: [id number] Name: RAJAT GUZMÁN Rep #: [id number] : 1935 89 From: Manisha Varela MD PCP: Dr. John Noel, DO Status:DIS IN [place] [facility] [id number] HPI - General General Date of Admission: 04/29/25 HPI Narrative RAJAT GUZMÁN, is a 89-year-old male history of coronary artery disease with stenting, AICD, CHF, BPH who presented [facility] ED 04/28/2025 with urinary symptoms, nausea, vomiting [...] has been unable to take in p.o. 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 Normal [facility] Hematocrit Auto (Bld) [Volum e fraction]Ordered By: Henok Villarreal on 04-28-2025 Hematocrit (Bld) [Volume fraction] 37.3 % Low 40-54 [facility] Hemoglobin measurementOrdere d By: Henok Villarreal on 04-28-2025 Hemoglobin (Bld) [Mass/Vol] 12.4 g/dL Low 13.0-16.5 [facility] Immature granulocytes/100 WB C Auto (Bld)Ordered By: Henok Villarreal on 04-28-2025 Immature granulocytes/100 WBC (Bld) 0.200 % 0.0-0.9 [facility] Comment on above: IG% - Immature Granu locytes (promyelocytes, myelocytes and metamyelocytes) > 1% indicates that a LEFT SHIFT is Present. Laboratory - Chemistry and C hemistry - challengeOrdered By: Henok Villarreal on 04-28-2025 AST [Catalytic activity/Vol] 21 U/L <38 [facility] Lactic Acidon 04-28-2025 Lactate [Moles/Vol] 1.2 mmol/L Normal 0.0-2.0 [facility] Comment on above: Order Comment: Y Performed By: #### L 501.6710, L3300.6400, L503.7505, L500.4050, L503.6550, L101.9900, L503.6030, L100.0100 #### [facility] [place], [address] Lactic acid measurementOrder ed By: Henok Villarreal on 04-28-2025 Lactate [Moles/Vol] 1.2 mmol/L 0.0-2.0 [facility] MCV (mean corpuscular volume ) determinationOrdered By: Henok Villarreal on 04-28-2025 MCV (RBC) [Entitic vol] 90.1 fL 80-94 [facility] Mean corpuscular hemoglobin (MCH) determinationOrdered By: Henok Villarreal on 04-28-2025 MCH (RBC) [Entitic mass] 30.0 pg 27.0-32.0 [facility] Mean corpuscular hemoglobin concentration (MCHC) determinationOrdered By: Henok Villarreal on 04-28-2025 MCHC (RBC) [Mass/Vol] 33.2 g/dL 32-36 [facility] Mean platelet volume determi nationOrdered By: Henok Villarreal on 04-28-2025 Platelet mean volume (Bld) [Entitic vol] 10.6 fL 6.2-12.0 [facility] Monocyte percentageOrdered B y: Henok Villarreal on 04-28-2025 Monocytes/100 WBC (Bld) 8.6 % 0-10 [facility] Neutrophil percentageOrdered By: Henok Villarreal on 04-28-2025 Neutrophils/100 WBC (Bld) 72.7 % High 47-70 [facility] Nucleated red blood cell per centageOrdered By: Henok Villarreal on 04-28-2025 Nucleated RBC/100 WBC (Bld) [Ratio] 0 % 0-5 [facility] Platelet countOrdered By: Ug o Villarreal on 04-28-2025 Platelets (Bld) [#/Vol] 189 10*3/uL 150-450 [facility] Potassium measurement (mass/ volume)Ordered By: Henok Villarreal on 04-28-2025 Potassium (Unsp spec) [Mass/Vol] 3.8 mmol/L 3.3-5.1 [facility] RBC Auto (Bld) [#/Vol]Ordere d By: Henok Villarreal on 04-28-2025 RBC (Bld) [#/Vol] 4.14 10*6/uL Low 4.6-6.2 [facility] Serum creatinine measurement (mass/volume)Ordered By: Henok Villarreal on 04-28-2025 Creatinine [Mass/Vol] 0.82 mg/dL 0.70-1.20 [facility] Serum globulin measurementOr dered By: Henok Villarreal on 04-28-2025 Globulin (S) [Mass/Vol] 3.3 g/dL 2.2-4.2 [facility] Serum glucose measurement (m ass/volume)Ordered By: Henok Villarreal on 04-28-2025 Glucose [Mass/Vol] 149 mg/dL High 70-99 [facility] Serum or plasma alanine rice otransferase (ALT) measurementOrdered By: Henok Villarreal on 04-28-2025 ALT [Catalytic activity/Vol] 10 U/L <47 [facility] Serum or plasma albumin alfonso urement (mass/volume)Ordered By: Henok Villarreal on 04-28-2025 Albumin [Mass/Vol] 3.9 g/dL 3.4-4.8 [facility] Serum or plasma albumin/glob ulin mass ratioOrdered By: Henok Villarreal on 04-28-2025 Albumin/Globulin [Mass ratio] 1.2 {ratio} 0.9-2.4 [facility] Serum or plasma alkaline rory sphatase measurementOrdered By: Henokeric Villarreal on 04-28-2025 ALP [Catalytic activity/Vol] 64 U/L 40-129 [facility] Serum or plasma calcium alfonso urement (mass/volume)Ordered By: Henok Villarreal on 04-28-2025 Calcium [Mass/Vol] 9.3 mg/dL 7.6-11.0 [facility] Serum or plasma urea nitroge n measurement (mass/volume)Ordered By: Henok Villarreal on 04-28-2025 Urea nitrogen [Mass/Vol] 9 mg/dL 4-19 [facility] Sodium levelOrdered By: Henok Villarreal on 04-28-2025 Sodium [Moles/Vol] 137 mmol/L 133-145 [facility] Total proteinOrdered By: Henokeric Villarreal on 04-28-2025 Protein [Mass/Vol] 7.3 g/dL 5.9-8.4 [facility] White blood cell (WBC) count Ordered By: Henok Villarreal on 04-28-2025 WBC (Bld) [#/Vol] 11.5 10*3/uL High 4.4-11.0 [facility] Absolute lymphocyte countOrd ered By: Timoteo Mckenna on 04-27-2025 Lymphocytes Auto (Unsp spec) [#/Vol] 1.92 10*3/uL 0.83-4.51 [facility] Absolute neutrophil countOrd ered By: Timoteo Mckenna on 04-27-2025 Neutrophils (Bld) [#/Vol] 7.0 10*3/uL 2.0-7.7 [facility] Anion gap in Serum or Plasma Ordered By: Timoteo Mckenna on 04-27-2025 Anion gap [Moles/Vol] 12 mmol/L 5-15 [facility] Automated lymphocyte count a s percentage of total leukocytesOrdered By: Timoteo Mckenna on 04-27-2025 Lymphocytes/100 WBC Auto (Unsp spec) 19.6 % 19-41 [facility] BUN/creatinine ratioOrdered By: Timoteo Mckenna on 04-27-2025 Urea nitrogen/Creatinine [Mass ratio] 14.1 mg/mg 10-20 [facility] Basophil percentageOrdered B y: Timoteo Mckenna on 04-27-2025 Basophils/100 WBC (Bld) 0.5 % 0-1 [facility] Bilirubin Test strip Ql (U)O rdered By: Timoteo Mckenna on 04-27-2025 Bilirubin Ql (U) Negative Negative [facility] Bilirubin, totalOrdered By: Timoteo Mckenna on 04-27-2025 Bilirubin [Mass/Vol] 0.75 mg/dL 0.00-1.30 [facility] CBC W/Diff, Automatedon 06-2 Absolute Lymph 1.92 X10 3/uL Normal 0.83-4.51 [facility] Comment on above: Performed By: #### L 501.2450, L500.4050, L100.0100 #### [facility] Laboratory [address] [place], [address] Absolute Neut 7.0 X10 3/uL Normal 2.0-7.7 [facility] Comment on above: Performed By: #### L 501.2450, L500.4050, L100.0100 #### [facility] [address] [place], [address] Basophils/100 WBC (Bld) 0.5 % Normal 0-1 [facility] Comment on above: Performed By: #### L 501.2450, L500.4050, L100.0100 #### [facility] [address] [place], [address] Eosinophils/100 WBC (Bld) 1.0 % Normal 0-5 [facility] Comment on above: Performed By: #### L 501.2450, L500.4050, L100.0100 #### [facility] [address] [place], [address] Erythrocyte distribution width (RBC) [Ratio] 13.6 % Normal 11.6-14.6 [facility] Comment on above: Performed By: #### L 501.2450, L500.4050, L100.0100 #### [facility] [address] [place], [address] Hematocrit (Bld) [Volume fraction] 36.0 % Low 40-54 [facility] Comment on above: Performed By: #### L 501.2450, L500.4050, L100.0100 #### [facility] [address] [place], [address] Hemoglobin (Bld) [Mass/Vol] 12.2 g/dL Low 13.0-16.5 [facility] Comment on above: Performed By: #### L 501.2450, L500.4050, L100.0100 #### [facility] [address] [place], [address] IG% 0.400 Normal 0.0-0.9 [facility] Comment on above: Result Comment: IG% - Immature Granulocytes (promyelocytes, myelocytes and metamyelocytes) > 1% indicates that a LEFT SHIFT is Present. Performed By: #### L 501.2450, L500.4050, L100.0100 #### [facility] [address] [place], [address] Lymphocytes/100 WBC (Bld) 19.6 % Normal 19-41 [facility] Comment on above: Performed By: #### L 501.2450, L500.4050, L100.0100 #### [facility] [address] [place], [address] MCH (RBC) [Entitic mass] 30.3 pg Normal 27.0-32.0 [facility] Comment on above: Performed By: #### L 501.2450, L500.4050, L100.0100 #### [facility] [address] [place], [address] MCHC (RBC) [Mass/Vol] 33.9 g/dL Normal 32-36 [facility] Comment on above: Performed By: #### L 501.2450, L500.4050, L100.0100 #### [facility] [address] [place], [address] MCV (RBC) [Entitic vol] 89.3 fL Normal 80-94 [facility] Comment on above: Performed By: #### L 501.2450, L500.4050, L100.0100 #### [facility] [address] [place], [address] Monocytes/100 WBC (Bld) 7.4 % Normal 0-10 [facility] Comment on above: Performed By: #### L 501.2450, L500.4050, L100.0100 #### [facility] [address] [place], [address] Neutrophils/100 WBC (Bld) 71.1 % High 47-70 [facility] Comment on above: Performed By: #### L 501.2450, L500.4050, L100.0100 #### [facility] [address] [place], [address] Nucleated RBC (Bld) [#/Vol] 0 10*3/uL Normal 0-5 [facility] Comment on above: Performed By: #### L 501.2450, L500.4050, L100.0100 #### [facility] [address] [place], [address] Platelet mean volume (Bld) [Entitic vol] 11.6 fL Normal 6.2-12.0 [facility] Comment on above: Performed By: #### L 501.2450, L500.4050, L100.0100 #### [facility] [address] [place], [address] Platelets (Bld) [#/Vol] 201 10*3/uL Normal 150-450 [facility] Comment on above: Performed By: #### L 501.2450, L500.4050, L100.0100 #### [facility] [address] [place], [address] RBC (Bld) [#/Vol] 4.03 10*6/uL Low 4.6-6.2 [facility] Comment on above: Performed By: #### L 501.2450, L500.4050, L100.0100 #### [facility] [address] [place], [address] RDW SD 43.9 fl Normal 35.1-43.9 [facility] Comment on above: Performed By: #### L 501.2450, L500.4050, L100.0100 #### [facility] [address] [place], [address] WBC (Bld) [#/Vol] 9.8 10*3/uL Normal 4.4-11.0 [facility] Comment on above: Performed By: #### L 501.2450, L500.4050, L100.0100 #### [facility] [address] [place], [address] Carbon dioxide, total [Moles /volume] in Central venous bloodOrdered By: Timoteo Mckenna on 04-27-2025 CO2 [Moles/Vol] 23.2 mmol/L 21.0-32.0 [facility] Chloride assayOrdered By: Melissa Mckenna on 04-27-2025 Chloride [Moles/Vol] 100 mmol/L 98-108 [facility] Comprehensive Metabolic Prof ilon 04-27-2025 Albumin [Mass/Vol] 4.0 g/dL Normal 3.4-4.8 [facility] Comment on above: Performed By: #### L 501.6710, L3300.6400, L503.7505, L500.4050, L503.6550, L101.9900, L503.6030, L100.0100 #### [facility] [address] [place], [address] Albumin/Globulin [Mass ratio] 1.2 {ratio} Normal 0.9-2.4 [facility] Comment on above: Performed By: #### L 501.6710, L3300.6400, L503.7505, L500.4050, L503.6550, L101.9900, L503.6030, L100.0100 #### [facility] [address] [place], [address] ALK PHOS 65 U/L Normal 40-129 [facility] Comment on above: Performed By: #### L 501.6710, L3300.6400, L503.7505, L500.4050, L503.6550, L101.9900, L503.6030, L100.0100 #### [facility] [address] [place], [address] ALT [Catalytic activity/Vol] 15 U/L Normal <=46 [facility] Comment on above: Performed By: #### L 501.6710, L3300.6400, L503.7505, L500.4050, L503.6550, L101.9900, L503.6030, L100.0100 #### [facility] [address] [place], [address] AST [Catalytic activity/Vol] 30 U/L Normal <=37 [facility] Comment on above: Result Comment: Hemo lysis present, Results??could be affected. ?? Performed By: #### L 501.6710, L3300.6400, L503.7505, L500.4050, L503.6550, L101.9900, L503.6030, L100.0100 #### [facility] [address] [place], [address] Bilirubin [Mass/Vol] 0.75 mg/dL Normal 0.00-1.30 [facility] Comment on above: Performed By: #### L 501.6710, L3300.6400, L503.7505, L500.4050, L503.6550, L101.9900, L503.6030, L100.0100 #### [facility] [address] [place], [address] BUN/CRE 14.1 RATIO Normal 10-20 [facility] Comment on above: Performed By: #### L 501.6710, L3300.6400, L503.7505, L500.4050, L503.6550, L101.9900, L503.6030, L100.0100 #### [facility] [address] [place], [address] Calcium [Mass/Vol] 9.2 mg/dL Normal 7.6-11.0 [facility] Comment on above: Performed By: #### L 501.6710, L3300.6400, L503.7505, L500.4050, L503.6550, L101.9900, L503.6030, L100.0100 #### [facility] [address] [place], [address] Chloride [Moles/Vol] 100 mmol/L Normal 98-108 [facility] Comment on above: Performed By: #### L 501.6710, L3300.6400, L503.7505, L500.4050, L503.6550, L101.9900, L503.6030, L100.0100 #### [facility] [address] [place], [address] CO2 [Moles/Vol] 23.2 mmol/L Normal 21.0-32.0 [facility] Comment on above: Performed By: #### L 501.6710, L3300.6400, L503.7505, L500.4050, L503.6550, L101.9900, L503.6030, L100.0100 #### [facility] [address] [place], [address] Creatinine [Mass/Vol] 0.90 mg/dL Normal 0.70-1.20 [facility] Comment on above: Performed By: #### L 501.6710, L3300.6400, L503.7505, L500.4050, L503.6550, L101.9900, L503.6030, L100.0100 #### [facility] [address] [place], [address] ECRCL 42.74 ml/min Low 50-250 [facility] Comment on above: Performed By: #### L 501.6710, L3300.6400, L503.7505, L500.4050, L503.6550, L101.9900, L503.6030, L100.0100 #### [facility] [address] [place], [address] GAP 12 Normal 5-15 [facility] Comment on above: Performed By: #### L 501.6710, L3300.6400, L503.7505, L500.4050, L503.6550, L101.9900, L503.6030, L100.0100 #### [facility] [address] [place], [place], [id number] (326 GFR/1.73 sq M.predicted among non-blacks MDRD (S/P/Bld) [Vol rate/Area] 82 mL/min/{1.73_m2} Normal >60 [facility] Comment on above: Result Comment: mL/m in/1.73m2 CKD-EPI Creatinine Equation (2020) Performed By: #### L 501.6710, L3300.6400, L503.7505, L500.4050, L503.6550, L101.9900, L503.6030, L100.0100 #### [facility] [address] [place], [address] Globulin (S) [Mass/Vol] 3.3 g/dL Normal 2.2-4.2 [facility] Comment on above: Performed By: #### L 501.6710, L3300.6400, L503.7505, L500.4050, L503.6550, L101.9900, L503.6030, L100.0100 #### [facility] [address] [place], [address] Glucose [Mass/Vol] 285 mg/dL High 70-99 [facility] Comment on above: Performed By: #### L 501.6710, L3300.6400, L503.7505, L500.4050, L503.6550, L101.9900, L503.6030, L100.0100 #### [facility] [address] [place], [address] Potassium [Moles/Vol] 4.2 mmol/L Normal 3.3-5.1 [facility] Comment on above: Result Comment: Hemo lysis present, Results??could be affected. ?? Performed By: #### L 501.6710, L3300.6400, L503.7505, L500.4050, L503.6550, L101.9900, L503.6030, L100.0100 #### [facility] [address] [place], [address] Sodium [Moles/Vol] 135 mmol/L Normal 133-145 [facility] Comment on above: Performed By: #### L 501.6710, L3300.6400, L503.7505, L500.4050, L503.6550, L101.9900, L503.6030, L100.0100 #### [facility] [address] [place], [address] T PROT 7.3 g/dL Normal 5.9-8.4 [facility] Comment on above: Performed By: #### L 501.6710, L3300.6400, L503.7505, L500.4050, L503.6550, L101.9900, L503.6030, L100.0100 #### [facility] [address] [place], [address] Urea nitrogen [Mass/Vol] 13 mg/dL Normal 4-19 [facility] Comment on above: Performed By: #### L 501.6710, L3300.6400, L503.7505, L500.4050, L503.6550, L101.9900, L503.6030, L100.0100 #### [facility] [address] [place], [address] Emergency Department Summary on 04-27-2025 Emergency Department Summary [facility] Medical Records Department [address] [place] [address] Emergency Department Summary 04/27/25 MR#: [id number] Acct: [id number] Name: RAJAT GUZMÁN Rep #: [id number] : 1935 89 From: Timoteo Mckenna DO [...] He denies fevers or chills or sweats. 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 Normal [facility] Eosinophil percentageOrdered By: Timoteo Mckenna on 04-27-2025 Eosinophils/100 WBC (Bld) 1.0 % 0-5 [facility] Erythrocyte distribution wid th ratioOrdered By: Timoteo Mckenna on 04-27-2025 Erythrocyte distribution width (RBC) [Ratio] 13.6 % 11.6-14.6 [facility] Erythrocyte distribution wid th standard deviationOrdered By: Timoteo Mckenna on 04-27-2025 Erythrocyte distribution width (RBC) [Ratio] 43.9 fl 35.1-43.9 [facility] Glomerular filtration rate ( GFR) estimation/1.73 sq m using serum, plasma, or whole bOrdered By: Timoteo Mckenna on 04-27-2025 GFR/1.73 sq M.predicted among non-blacks MDRD (S/P/Bld) [Vol rate/Area] 82 mL/min/{1.73_m2} >60 [facility] Comment on above: mL/min/1.73m2 CKD-EP I Creatinine Equation (2020) Hematocrit Auto (Bld) [Volum e fraction]Ordered By: Timoteo Mckenna on 04-27-2025 Hematocrit (Bld) [Volume fraction] 36.0 % Low 40-54 [facility] Hemoglobin measurementOrdere d By: Timoteo Mckenna on 04-27-2025 Hemoglobin (Bld) [Mass/Vol] 12.2 g/dL Low 13.0-16.5 [facility] Immature granulocytes/100 WB C Auto (Bld)Ordered By: Timoteo Mckenna on 04-27-2025 Immature granulocytes/100 WBC (Bld) 0.400 % 0.0-0.9 [facility] Comment on above: IG% - Immature Granu locytes (promyelocytes, myelocytes and metamyelocytes) > 1% indicates that a LEFT SHIFT is Present. Ketones Test strip Ql (U)Ord ered By: Timoteo Mckenna on 04-27-2025 Ketones Ql (U) 5 mg/dl High Negative [facility] Laboratory - Chemistry and C hemistry - challengeOrdered By: Timoteo Mckenna on 04-27-2025 AST [Catalytic activity/Vol] 30 U/L <38 [facility] Comment on above: Hemolysis present, R esults could be affected. Lipaseon 04-27-2025 Lipase [Catalytic activity/Vol] 15 U/L Normal 13-75 [facility] Comment on above: Result Comment: Plea se note: LIPASE revised reference range effective 23. New Lipase methodology. Expected to produce lower values than the previous assay method. NEW Reference Range: 13 - 75 U/L Performed By: #### L 501.6710, L3300.6400, L503.7505, L500.4050, L503.6550, L101.9900, L503.6030, L100.0100 #### [facility] [place], [address] Lipase measurementOrdered By : Timoteo Mckenna on 04-27-2025 Lipase [Catalytic activity/Vol] 15 U/L 13-75 [facility] Comment on above: Please note:LIPASE r evised reference range effective 23. New Lipase methodology. Expected to produce lower values than the previous assay method. NEW Reference Range: 13 - 75 U/L MCV (mean corpuscular volume ) determinationOrdered By: Timoteo Mckenna on 04-27-2025 MCV (RBC) [Entitic vol] 89.3 fL 80-94 [facility] Mean corpuscular hemoglobin (MCH) determinationOrdered By: Timoteo Mckenna on 04-27-2025 MCH (RBC) [Entitic mass] 30.3 pg 27.0-32.0 [facility] Mean corpuscular hemoglobin concentration (MCHC) determinationOrdered By: Timoteo Mckenna on 04-27-2025 MCHC (RBC) [Mass/Vol] 33.9 g/dL 32-36 [facility] Mean platelet volume determi nationOrdered By: Timoteo Mckenna on 04-27-2025 Platelet mean volume (Bld) [Entitic vol] 11.6 fL 6.2-12.0 [facility] Microscopic analysis of urin e for red blood cells (RBC)Ordered By: Timoteo Mckenna on 04-27-2025 Microscopic analysis of urine for red blood cells (RBC) 0-5 SEEN /hpf 0-5 [facility] Monocyte percentageOrdered B y: Timoteo Mckenna on 04-27-2025 Monocytes/100 WBC (Bld) 7.4 % 0-10 [facility] Mucus LM Ql (Urine sed)Order ed By: Timoteo Mckenna on 04-27-2025 Mucus Ql (Urine sed) 0 SEEN /hpf [facility] Neutrophil percentageOrdered By: Timoteo Mckenna on 04-27-2025 Neutrophils/100 WBC (Bld) 71.1 % High 47-70 [facility] Nitrite Test strip Ql (U)Ord ered By: Timoteo Mckenna on 04-27-2025 Nitrite Ql (U) Positive High Negative [facility] Nucleated red blood cell per centageOrdered By: Timoteo Mckenna on 04-27-2025 Nucleated RBC/100 WBC (Bld) [Ratio] 0 % 0-5 [facility] Platelet countOrdered By: Melissa Mckenna on 04-27-2025 Platelets (Bld) [#/Vol] 201 10*3/uL 150-450 [facility] Potassium measurement (mass/ volume)Ordered By: Timoteo Mckenna on 04-27-2025 Potassium (Unsp spec) [Mass/Vol] 4.2 mmol/L 3.3-5.1 [facility] Comment on above: Hemolysis present, R esults could be affected. Protein Test strip Ql (U)Ord ered By: Timoteo Mckenna on 04-27-2025 Protein Ql (U) 30 mg/dl High Negative [facility] RBC Auto (Bld) [#/Vol]Ordere d By: Timoteo Mckenna on 04-27-2025 RBC (Bld) [#/Vol] 4.03 10*6/uL Low 4.6-6.2 [facility] Serum creatinine measurement (mass/volume)Ordered By: Timoteo Mckenna on 04-27-2025 Creatinine [Mass/Vol] 0.90 mg/dL 0.70-1.20 [facility] Serum globulin measurementOr dered By: Timoteo Mckenna on 04-27-2025 Globulin (S) [Mass/Vol] 3.3 g/dL 2.2-4.2 [facility] Serum glucose measurement (m ass/volume)Ordered By: Timoteo Mckenna on 04-27-2025 Glucose [Mass/Vol] 285 mg/dL High 70-99 [facility] Serum or plasma alanine rice otransferase (ALT) measurementOrdered By: Timoteo Mckenna on 04-27-2025 ALT [Catalytic activity/Vol] 15 U/L <47 [facility] Serum or plasma albumin alfonso urement (mass/volume)Ordered By: Timoteo Mckenna on 04-27-2025 Albumin [Mass/Vol] 4.0 g/dL 3.4-4.8 [facility] Serum or plasma albumin/glob ulin mass ratioOrdered By: Timoteo Mckenna on 04-27-2025 Albumin/Globulin [Mass ratio] 1.2 {ratio} 0.9-2.4 [facility] Serum or plasma alkaline rory sphatase measurementOrdered By: Timoteo Mckenna on 04-27-2025 ALP [Catalytic activity/Vol] 65 U/L 40-129 [facility] Serum or plasma calcium alfonso urement (mass/volume)Ordered By: Timoteo Mckenna on 04-27-2025 Calcium [Mass/Vol] 9.2 mg/dL 7.6-11.0 [facility] Serum or plasma urea nitroge n measurement (mass/volume)Ordered By: Timoteo Mckenna on 04-27-2025 Urea nitrogen [Mass/Vol] 13 mg/dL 4-19 [facility] Sodium levelOrdered By: Roxana Mckenna on 04-27-2025 Sodium [Moles/Vol] 135 mmol/L 133-145 [facility] Squamous epithelial cells de tection in urine sediment by light microscopyOrdered By: Timoteo Mckenna on 04-27-2025 Epithelial cells.squamous LM Ql (Urine sed) 0 SEEN /hpf 0-5 [facility] Total proteinOrdered By: Wendy Clarisa on 04-27-2025 Protein [Mass/Vol] 7.3 g/dL 5.9-8.4 [facility] Urinalysis, Completeon 04-27 BACTERIA 2+ /hpf Normal None Seen [facility] Comment on above: Order Comment: ULISES CTOR TO SPECIFY Performed By: #### L 501.6710, L3300.6400, L503.7505, L500.4050, L503.6550, L101.9900, L503.6030, L100.0100 #### [facility] Laboratory [address] [place], [place], [id number] (438) RBC 0-5 SEEN Normal 0-5 [facility] Comment on above: Order Comment: ULISES CTOR TO SPECIFY Performed By: #### L 501.6710, L3300.6400, L503.7505, L500.4050, L503.6550, L101.9900, L503.6030, L100.0100 #### [facility] [address] [place], [place], [id number] WBC 25-50 SEEN Normal 0-5 [facility] Comment on above: Order Comment: ULISES CTOR TO SPECIFY Performed By: #### L 501.6710, L3300.6400, L503.7505, L500.4050, L503.6550, L101.9900, L503.6030, L100.0100 #### [facility] [address] [place], [address] EPI,SQUAMOUS 0 SEEN Normal 0-5 [facility] Comment on above: Order Comment: ULISES CTOR TO SPECIFY Performed By: #### L 501.6710, L3300.6400, L503.7505, L500.4050, L503.6550, L101.9900, L503.6030, L100.0100 #### [facility] [address] [place], [address] Mucus Ql (Urine sed) 0 SEEN Normal [facility] Comment on above: Order Comment: COLLE CTOR TO SPECIFY Performed By: #### L 501.6710, L3300.6400, L503.7505, L500.4050, L503.6550, L101.9900, L503.6030, L100.0100 #### [facility] [address] [place], [address] Urine clarityOrdered By: Wendy Mckenna on 04-27-2025 Clarity (U) Sl. Cloudy Clear [facility] Urine color determinationOrd ered By: Timoteo Mckenna on 04-27-2025 Color (U) Yellow Yellow [facility] Urine cultureOrdered By: Wendy Mckenna on 04-27-2025 Bacteria identified Cx Nom (U) Escherichia coli Abnormal [facility] Bacteria identified Cx Nom (U) Pseudomonas aeruginosa Abnormal [facility] Bacteria identified Cx Nom (U) Enterococcus gallinarum Abnormal [facility] Urine glucose detectionOrder ed By: Timoteo Mckenna on 04-27-2025 Glucose Ql (U) 1000 mg/dl High Normal [facility] Urine leukocyte esterase det ection by dipstickOrdered By: Timoteo Mckenna on 04-27-2025 Leukocyte esterase Test strip Ql (U) 500 /ul High Negative [facility] Urine pHOrdered By: Timoteo Sotelo gur on 04-27-2025 pH (U) 6.0 [pH] 5.0 - 8.0 [facility] Urine sediment bacteria coun t by microscopy (number/high power field)Ordered By: Timoteo Mckenna on 04-27-2025 Bacteria LM.HPF (Urine sed) [#/Area] 2 /[HPF] None Seen [facility] Urine specific gravity measu rementOrdered By: Timoteo Mckenna on 04-27-2025 Specific gravity (U) [Rel density] 1.015 1.002-1.03 0 [facility] Urine urobilinogen measureme ntOrdered By: Timoteo Mckenna on 04-27-2025 Urobilinogen Ql (U) Normal mg/dl Normal [facility] White blood cell (WBC) count Ordered By: Timoteo Mckenna on 04-27-2025 WBC (Bld) [#/Vol] 9.8 10*3/uL 4.4-11.0 [facility] White blood cell countOrdere d By: Timoteo Mckenna on 04-27-2025 White blood cell count 25-50 SEEN /hpf 0-5 [facility] PSA,Total- Diagnosticon 04-02 PSA, DIAGNOSTIC 0.38 ng/mL Normal 0.00-4.00 [facility] Comment on above: Result Comment: This test [...] 501.9940 #### [facility] Laboratory [address] [place], [place], [address] Cardiology Visit Reporton Cardiology Visit Report [facility] 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 Normal [facility] CRPon 02-05-2025 C-REACTIVE PROT 3.80 mg/L High 0.0-3.0 [facility] Comment on above: Performed By: #### L 501.3110, L3300.6400, L503.7505, L500.4050, L503.6550, L101.9900, L503.6030, L100.0100 #### [facility] [address] [place], [address] CRP [Mass/Vol]Ordered By: Samy Noel on 02-05-2025 C-Reactive Protein Extended Range 3.80 mg/L High 0.0-3.0 [facility] Erythrocyte Sed Rateon 02-05 SED RATE 13 mm/hr Normal 0-20 [facility] Comment on above: Performed By: #### L 501.6710, L3300.6400, L503.7505, L500.4050, L503.6550, L101.9900, L503.6030, L100.0100 #### [facility] [address] [place], [address] Erythrocyte sedimentation ra teOrdered By: John Noel on 02-05-2025 ESR (Bld) [Velocity] 13 mm/h 0-20 [facility] Serum or plasma C reactive p rotein measurement (mass/volume)Ordered By: John Noel on 02-05-2025 CRP [Mass/Vol] 3.80 mg/L High 0.0-3.0 [facility] Absolute neutrophil countOrd ered By: Timoteo Mckenna on 12-16-2024 Neutrophils (Bld) [#/Vol] 6.7 10*3/uL 2.0-7.7 [facility] Basic Metabolic Profile (BMP )on 12-16-2024 BUN/CRE 19.0 RATIO Normal 10- [facility] Comment on above: Performed By: #### L 501.6710, L3300.6400, L503.7505, L500.4050, L503.6550, L101.9900, L503.6030, L100.0100 #### [facility] [address] [place], [address] CA,Total 9.9 mg/dL Normal 8.5-10.1 [facility] Comment on above: Performed By: #### L 501.6710, L3300.6400, L503.7505, L500.4050, L503.6550, L101.9900, L503.6030, L100.0100 #### [facility] [address] [place], [address] Chloride [Moles/Vol] 100 mmol/L Normal 98-107 [facility] Comment on above: Performed By: #### L 501.6710, L3300.6400, L503.7505, L500.4050, L503.6550, L101.9900, L503.6030, L100.0100 #### [facility] [address] [place], [address] CO2 [Moles/Vol] 27.0 mmol/L Normal 21.0-32.0 [facility] Comment on above: Performed By: #### L 501.6710, L3300.6400, L503.7505, L500.4050, L503.6550, L101.9900, L503.6030, L100.0100 #### [facility] [address] [place], [address] Creatinine [Mass/Vol] 0.84 mg/dL Normal 0.70-1.30 [facility] Comment on above: Result Comment: The validity of the calculated GFR GFRAA in patients over 70 years has not been determined. Clinical correlation is essential. Performed By: #### L 501.6710, L3300.6400, L503.7505, L500.4050, L503.6550, L101.9900, L503.6030, L100.0100 #### [facility] [address] [place], [address] ECRCL 44.07 ml/min Normal [facility] Comment on above: Performed By: #### L 501.6710, L3300.6400, L503.7505, L500.4050, L503.6550, L101.9900, L503.6030, L100.0100 #### [facility] [address] [place], [address] EST GFR - AA 111 mL/min Normal >60 [facility] Comment on above: Result Comment: Afri can Cambodian GFR Calc Performed By: #### L 501.6710, L3300.6400, L503.7505, L500.4050, L503.6550, L101.9900, L503.6030, L100.0100 #### [facility] [address] [place], [address] GAP 8 Normal 5-15 [facility] Comment on above: Performed By: #### L 501.6710, L3300.6400, L503.7505, L500.4050, L503.6550, L101.9900, L503.6030, L100.0100 #### [facility] [address] [place], [address] GFR/1.73 sq M.predicted among non-blacks MDRD (S/P/Bld) [Vol rate/Area] 92 mL/min/{1.73_m2} Normal >60 [facility] Comment on above: Result Comment: Non- GFR Calc Performed By: #### L 501.6710, L3300.6400, L503.7505, L500.4050, L503.6550, L101.9900, L503.6030, L100.0100 #### [facility] [address] [place], [address] Glucose [Mass/Vol] 155 mg/dL High 74-106 [facility] Comment on above: Result Comment: Fast ing Glucose result greater than or equal to 126 mg/dL suggests DIABETES MELLITUS per A.D.A. criteria. Performed By: #### L 501.6710, L3300.6400, L503.7505, L500.4050, L503.6550, L101.9900, L503.6030, L100.0100 #### [facility] [address] [place], [address] Potassium [Moles/Vol] 3.8 mmol/L Normal 3.5-5.1 [facility] Comment on above: Performed By: #### L 501.6710, L3300.6400, L503.7505, L500.4050, L503.6550, L101.9900, L503.6030, L100.0100 #### [facility] [address] [place], [address] Sodium [Moles/Vol] 135 mmol/L Low 136-145 [facility] Comment on above: Performed By: #### L 501.6710, L3300.6400, L503.7505, L500.4050, L503.6550, L101.9900, L503.6030, L100.0100 #### [facility] [address] [place], [address] Urea nitrogen [Mass/Vol] 16 mg/dL Normal 7-18 [facility] Comment on above: Performed By: #### L 501.6710, L3300.6400, L503.7505, L500.4050, L503.6550, L101.9900, L503.6030, L100.0100 #### [facility] [address] [place], [address] Basophil percentageOrdered B y: Remus Ungmaryann on 12-16-2024 Basophils/100 WBC (Bld) 0.1 % 0-1 [facility] Bilirubin Test strip Ql (U)O rdered By: Remus Ungur on 12-16-2024 Bilirubin Ql (U) Negative Negative [facility] Blood urea nitrogen (BUN)/cr eatinine ratioOrdered By: Remus Ungmaryann on 12-16-2024 Urea nitrogen/Creatinine [Mass ratio] 19.0 mg/mg 10-20 [facility] CBC W/Diff, Automatedon 12-02 Absolute Lymph 1.31 X10 3/uL Normal 0.83-4.51 [facility] Comment on above: Performed By: #### L 501.6710, L3300.6400, L503.7505, L500.4050, L503.6550, L101.9900, L503.6030, L100.0100 #### [facility] [address] [place], [address] Absolute Neut 6.7 X10 3/uL Normal 2.0-7.7 [facility] Comment on above: Performed By: #### L 501.6710, L3300.6400, L503.7505, L500.4050, L503.6550, L101.9900, L503.6030, L100.0100 #### [facility] [address] [place], [address] Basophils/100 WBC (Bld) 0.1 % Normal 0-1 [facility] Comment on above: Performed By: #### L 501.6710, L3300.6400, L503.7505, L500.4050, L503.6550, L101.9900, L503.6030, L100.0100 #### [facility] [address] [place], [address] Eosinophils/100 WBC (Bld) 0.3 % Normal 0-5 [facility] Comment on above: Performed By: #### L 501.6710, L3300.6400, L503.7505, L500.4050, L503.6550, L101.9900, L503.6030, L100.0100 #### [facility] [address] [place], [address] Erythrocyte distribution width (RBC) [Ratio] 13.7 % Normal 11.6-14.6 [facility] Comment on above: Performed By: #### L 501.6710, L3300.6400, L503.7505, L500.4050, L503.6550, L101.9900, L503.6030, L100.0100 #### [facility] [address] [place], [address] Hematocrit (Bld) [Volume fraction] 42.5 % Normal 40-54 [facility] Comment on above: Performed By: #### L 501.6710, L3300.6400, L503.7505, L500.4050, L503.6550, L101.9900, L503.6030, L100.0100 #### [facility] [address] [place], [address] Hemoglobin (Bld) [Mass/Vol] 13.8 g/dL Normal 13.0-16.5 [facility] Comment on above: Performed By: #### L 501.6710, L3300.6400, L503.7505, L500.4050, L503.6550, L101.9900, L503.6030, L100.0100 #### [facility] [address] [place], [address] IG% 0.200 Normal 0.0-0.9 [facility] Comment on above: Result Comment: IG% - Immature Granulocytes (promyelocytes, myelocytes and metamyelocytes) > 1% indicates that a LEFT SHIFT is Present. Performed By: #### L 501.6710, L3300.6400, L503.7505, L500.4050, L503.6550, L101.9900, L503.6030, L100.0100 #### [facility] [address] [place], [address] Lymphocytes/100 WBC (Bld) 15.2 % Low 19-41 [facility] Comment on above: Performed By: #### L 501.6710, L3300.6400, L503.7505, L500.4050, L503.6550, L101.9900, L503.6030, L100.0100 #### [facility] [address] [place], [address] MCH (RBC) [Entitic mass] 29.2 pg Normal 27.0-32.0 [facility] Comment on above: Performed By: #### L 501.6710, L3300.6400, L503.7505, L500.4050, L503.6550, L101.9900, L503.6030, L100.0100 #### [facility] [address] [place], [address] MCHC (RBC) [Mass/Vol] 32.5 g/dL Normal 32-36 [facility] Comment on above: Performed By: #### L 501.6710, L3300.6400, L503.7505, L500.4050, L503.6550, L101.9900, L503.6030, L100.0100 #### [facility] [address] [place], [address] MCV (RBC) [Entitic vol] 89.9 fL Normal 80-94 [facility] Comment on above: Performed By: #### L 501.6710, L3300.6400, L503.7505, L500.4050, L503.6550, L101.9900, L503.6030, L100.0100 #### [facility] [address] [place], [address] Monocytes/100 WBC (Bld) 6.1 % Normal 0-10 [facility] Comment on above: Performed By: #### L 501.6710, L3300.6400, L503.7505, L500.4050, L503.6550, L101.9900, L503.6030, L100.0100 #### [facility] [address] [place], [address] Neutrophils/100 WBC (Bld) 78.1 % High 47-70 [facility] Comment on above: Performed By: #### L 501.6710, L3300.6400, L503.7505, L500.4050, L503.6550, L101.9900, L503.6030, L100.0100 #### [facility] [address] [place], [address] Nucleated RBC (Bld) [#/Vol] 0 10*3/uL Normal 0-5 [facility] Comment on above: Performed By: #### L 501.6710, L3300.6400, L503.7505, L500.4050, L503.6550, L101.9900, L503.6030, L100.0100 #### [facility] [address] [place], [address] Platelet mean volume (Bld) [Entitic vol] 10.6 fL Normal 6.2-12.0 [facility] Comment on above: Performed By: #### L 501.6710, L3300.6400, L503.7505, L500.4050, L503.6550, L101.9900, L503.6030, L100.0100 #### [facility] [address] [place], [address] Platelets (Bld) [#/Vol] 248 10*3/uL Normal 150-450 [facility] Comment on above: Performed By: #### L 501.6710, L3300.6400, L503.7505, L500.4050, L503.6550, L101.9900, L503.6030, L100.0100 #### [facility] [address] [place], [address] RBC (Bld) [#/Vol] 4.73 10*6/uL Normal 4.6-6.2 [facility] Comment on above: Performed By: #### L 501.6710, L3300.6400, L503.7505, L500.4050, L503.6550, L101.9900, L503.6030, L100.0100 #### [facility] [address] [place], [address] RDW SD 45.1 fl High 35.1-43.9 [facility] Comment on above: Performed By: #### L 501.6710, L3300.6400, L503.7505, L500.4050, L503.6550, L101.9900, L503.6030, L100.0100 #### [facility] [address] [place], [address] WBC (Bld) [#/Vol] 8.6 10*3/uL Normal 4.4-11.0 [facility] Comment on above: Performed By: #### L 501.6710, L3300.6400, L503.7505, L500.4050, L503.6550, L101.9900, L503.6030, L100.0100 #### [facility] [address] [place], [address] Carbon dioxide measurementOr dered By: Timoteo Mckenna on 12-16-2024 CO2 [Moles/Vol] 27.0 mmol/L 21.0-32.0 [facility] Chloride measurementOrdered By: Timoteo Mckenna on 12-16-2024 Chloride [Moles/Vol] 100 mmol/L 98-107 [facility] Emergency Department Summary on 12-16-2024 Emergency Department Summary [facility] Medical Records Department [address] [place] [address] Emergency Department Summary 12/16/24 MR#: [id number] Acct: [id number] Name: RAJAT GUZMÁN Rep #: [id number] : 1935 89 From: Timoteo Mckenna DO [...] fever at home. He denies urinary symptoms. 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 Normal [facility] Eosinophil percentageOrdered By: Timoteo Mckenna on 12-16-2024 Eosinophils/100 WBC (Bld) 0.3 % 0-5 [facility] Epithelial cells.squamous LM Ql (Urine sed)Ordered By: Timoteo Mckenna on 12-16-2024 Epithelial cells.squamous LM.HPF (Urine sed) [#/Area] 0 /[HPF] 0-5 [facility] Erythrocyte distribution wid th (RBC) [Ratio]Ordered By: Timoteo Mckenna on 12-16-2024 Erythrocyte distribution width (RBC) [Entitic vol] 45.1 fL High 35.1-43.9 [facility] Erythrocyte distribution wid th ratioOrdered By: Timoteo Mckenna on 12-16-2024 Erythrocyte distribution width (RBC) [Ratio] 13.7 % 11.6-14.6 [facility] Estimated glomerular filtrat ion rate (GFR) AmericanOrdered By: Timoteo Mckenna on 12-16-2024 Estimated GFR (MDRD) Amer 111 mL/min >60 [facility] Comment on above: GFR Calc Estimation of creatinine laurel aranceOrdered By: Timoteo Mckenna on 12-16-2024 Estimated Creatinine Clearance Calc 44.07 ml/min [facility] Glomerular filtration rate ( GFR) estimationOrdered By: Timoteo Mckenna on 12-16-2024 Estimated GFR (MDRD) Non-Af Amer 92 mL/min >60 [facility] Comment on above: Non- GFR Calc Glucose Ql (U)Ordered By: Melissa Mckenna on 12-16-2024 Urine Glucose (UA) Normal mg/dl Normal [facility] Glucose measurementOrdered B y: Timoteo Mckenna on 12-16-2024 Glucose [Mass/Vol] 155 mg/dL High 74-106 [facility] Comment on above: Fasting Glucose resu lt greater than or equal to 126 mg/dL suggests DIABETES MELLITUS per A.D.A. criteria. Hematocrit Auto (Bld) [Volum e fraction]Ordered By: Timoteo Mckenna on 12-16-2024 Hematocrit (Bld) [Volume fraction] 42.5 % 40-54 [facility] Hemoglobin measurementOrdere d By: Timoteo Mckenna on 12-16-2024 Hemoglobin (Bld) [Mass/Vol] 13.8 g/dL 13.0-16.5 [facility] Immature granulocytes/100 WB C Auto (Bld)Ordered By: Timoteo Mckenna on 12-16-2024 Immature granulocytes/100 WBC (Bld) 0.200 % 0.0-0.9 [facility] Comment on above: IG% - Immature Granu locytes (promyelocytes, myelocytes and metamyelocytes) > 1% indicates that a LEFT SHIFT is Present. Influenza virus A and B and SARS-CoV-2 (COVID-19) and Respiratory syncytial virus RNAOrdered By: Timoteo Mckenna on 12-16-2024 SARS-CoV-2 (COVID-19) RNA MOHIT+probe Ql (Unsp spec) [facility] Ketones Test strip Ql (U)Ord ered By: Timoteo Mckenna on 12-16-2024 Ketones Ql (U) Negative Negative [facility] Lymphocytes Auto (Unsp spec) [#/Vol]Ordered By: Timoteo Mckenna on 12-16-2024 Lymphocytes (Bld) [#/Vol] 1.31 10*3/uL 0.83-4.51 [facility] Lymphocytes/100 WBC Auto (Un sp spec)Ordered By: Timoteo Mckenna on 12-16-2024 Lymphocytes/100 WBC (Bld) 15.2 % Low 19-41 [facility] M100.678on 12-16-2024 M100.678 SARS-CoV-2 (COVID 19 ) Negative INFLUENZA A Negative INFLUENZA B Negative RSV PCR Negative Normal [facility] Comment on above: Performed By: #### L 501.6710, L3300.6400, L503.7505, L500.4050, L503.6550, L101.9900, L503.6030, L100.0100 #### [facility] Laboratory [address] [place], [place] [address] [place], [place], [id number] MCV (mean corpuscular volume ) determinationOrdered By: Timoteo Mckenna on 12-16-2024 MCV (RBC) [Entitic vol] 89.9 fL 80-94 [facility] Mean corpuscular hemoglobin (MCH) determinationOrdered By: Timoteo Mckenna on 12-16-2024 MCH (RBC) [Entitic mass] 29.2 pg 27.0-32.0 [facility] Mean corpuscular hemoglobin concentration (MCHC) determinationOrdered By: Timoteo Mckenna on 12-16-2024 MCHC (RBC) [Mass/Vol] 32.5 g/dL 32-36 [facility] Mean platelet volume determi nationOrdered By: Timoteo Mckenna on 12-16-2024 Platelet mean volume (Bld) [Entitic vol] 10.6 fL 6.2-12.0 [facility] Microscopic analysis of urin e for red blood cells (RBC)Ordered By: Timoteo Mckenna on 12-16-2024 Urine RBC 0 SEEN /hpf 0-5 [facility] Monocyte percentageOrdered B y: Timoteo Mckenna on 12-16-2024 Monocytes/100 WBC (Bld) 6.1 % 0-10 [facility] Mucus LM Ql (Urine sed)Order ed By: Timoteo Mckenna on 12-16-2024 Mucus Ql (Urine sed) 0 SEEN /hpf [facility] Neutrophil percentageOrdered By: Timoteo Mckenna on 12-16-2024 Neutrophils/100 WBC (Bld) 78.1 % High 47-70 [facility] Nitrite Test strip Ql (U)Ord ered By: Timoteo Mckenna on 12-16-2024 Nitrite Ql (U) Negative Negative [facility] Nucleated red blood cell per centageOrdered By: Tmioteo Mckenna on 12-16-2024 Nucleated RBC/100 WBC (Bld) [Ratio] 0 % 0-5 [facility] Platelet countOrdered By: Melissa Mckenna on 12-16-2024 Platelets (Bld) [#/Vol] 248 10*3/uL 150-450 [facility] Potassium measurementOrdered By: Timoteo Mckenna on 12-16-2024 Potassium [Moles/Vol] 3.8 mmol/L 3.5-5.1 [facility] Protein Test strip Ql (U)Ord ered By: Timoteo Mckenna on 12-16-2024 Protein Ql (U) Negative Negative [facility] RBC Auto (Bld) [#/Vol]Ordere d By: Timoteo Mckenna on 12-16-2024 RBC (Bld) [#/Vol] 4.73 10*6/uL 4.6-6.2 [facility] Serum anion gap measurementO rdered By: Timoteo Mckenna on 12-16-2024 Anion gap [Moles/Vol] 8 mmol/L 5-15 [facility] Serum or plasma calcium alfonso urement (mass/volume)Ordered By: Remus Clarisa on 12-16-2024 Calcium [Mass/Vol] 9.9 mg/dL 8.5-10.1 [facility] Serum or plasma creatinine m easurement (mass/volume)Ordered By: Remus Clarisa on 12-16-2024 Creatinine [Mass/Vol] 0.84 mg/dL 0.70-1.30 [facility] Comment on above: The validity of the calculated GFR & GFRAA in patients over 70 years has not been determined. Clinical correlation is essential. Serum or plasma urea nitroge n measurement (mass/volume)Ordered By: Remus Mckenna on 12-16-2024 Urea nitrogen [Mass/Vol] 16 mg/dL - [facility] Sodium levelOrdered By: Roxana Mckenna on 12-16-2024 Sodium [Moles/Vol] 135 mmol/L Low 136-145 [facility] Urinalysis, Completeon 12-16 RBC 0 SEEN Normal 0-5 [facility] Comment on above: Order Comment: CLEAN CATCH Performed By: #### L 501.6710, L3300.6400, L503.7505, L500.4050, L503.6550, L101.9900, L503.6030, L100.0100 #### [facility] Laboratory [facility] [address] [facility] [place], [address] Urine blood detectionOrdered By: Remus Mckenna on 12-16-2024 Urine Occult Blood Negative Negative [facility] Urine clarityOrdered By: Rem us Clarisa on 12-16-2024 Clarity (U) Clear Clear [facility] Urine color determinationOrd ered By: Remus Clarisa on 12-16-2024 Color (U) Straw Yellow [facility] Urine leukocyte esterase det ection by dipstickOrdered By: Remus Mckenna on 12-16-2024 Leukocyte esterase Test strip Ql (U) 25 /ul High Negative [facility] Urine pHOrdered By: Timoteo Sotelo gur on 12-16-2024 pH (U) 6.5 [pH] 5.0 - 8.0 [facility] Urine sediment bacteria coun t by microscopy (number/high power field)Ordered By: Timoteo Mannmaryann on 12-16-2024 Bacteria LM.HPF (Urine sed) [#/Area] 0 /[HPF] None Seen [facility] Urine specific gravity measu rementOrdered By: Timoteo Mckenna on 12-16-2024 Specific gravity (U) [Rel density] 1.010 1.002-1.03 0 [facility] Urobilinogen Ql (U)Ordered B y: Remus Ungmaryann on 12-16-2024 Urine Urobilinogen Normal mg/dl Normal [facility] White blood cell (WBC) count Ordered By: [facility] [place] on 12-16-2024 WBC (Bld) [#/Vol] 8.6 10*3/uL 4.4-11.0 [facility] White blood cell countOrdere d By: Wendyus Clarisa on 12-16-2024 Urine WBC 0 SEEN /hpf 0-5 [facility] C-reactive protein measureme nt by high sensitivity methodOrdered By: John Noel on 12-08-2024 C-Reactive Protein Extended Range < 2.90 mg/L 0.0-3.0 [facility] Comment on above: C-Reactive Protein ( CRP) provides useful information for thediagnosis, therapy and monitoring of inflammatory processesand associated diseases. For the evaluation of Relative Riskfor Cardiovascular Disease, a High Sensitivity CRP (HSCRP)should be ordered. CRPon 12-08-2024 C-REACTIVE PROT < 2.90 Normal 0.0-3.0 [facility] Comment on above: Result Comment: C-Re active Protein (CRP) provides useful information for the diagnosis, therapy and monitoring of inflammatory processes and associated diseases. For the evaluation of Relative Risk for Cardiovascular Disease, a High Sensitivity CRP (HSCRP) should be ordered. Performed By: #### L 501.6710, L3300.6400, L503.7505, L500.4050, L503.6550, L101.9900, L503.6030, L100.0100 #### [facility] Laboratory [facility] [place], [address] Erythrocyte Sed Rateon 12-08 SED RATE 8 mm/hr Normal 0-20 [facility] Comment on above: Performed By: #### L 501.6710, L3300.6400, L503.7505, L500.4050, L503.6550, L101.9900, L503.6030, L100.0100 #### [facility] Laboratory [address] [place], [address] Erythrocyte sedimentation ra teOrdered By: John Noel on 12-08-2024 ESR (Bld) [Velocity] 8 mm/h 0-20 [facility] Cardiology Visit Reporton Cardiology Visit Report [facility] [address] [place] [address] OFFICE VISIT Date of Service: 11/10/24 MR#: [id number] Acct: [id number] Name: RAJAT GUZMÁN Stacia Rep #: [id number] : [id number] Provider: Dr. 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 Normal [facility] CBC W/Diff, Automatedon 11-0 Absolute Lymph 1.64 X10 3/uL Normal 0.83-4.51 [facility] Comment on above: Performed By: #### L 501.6710, L3300.6400, L503.7505, L500.4050, L503.6550, L101.9900, L503.6030, L100.0100 #### [facility] [address] [place], [address] Absolute Neut 7.8 X10 3/uL High 2.0-7.7 [facility] Comment on above: Performed By: #### L 501.6710, L3300.6400, L503.7505, L500.4050, L503.6550, L101.9900, L503.6030, L100.0100 #### [facility] [address] [place], [address] Basophils/100 WBC (Bld) 0.5 % Normal 0-1 [facility] Comment on above: Performed By: #### L 501.6710, L3300.6400, L503.7505, L500.4050, L503.6550, L101.9900, L503.6030, L100.0100 #### [facility] [address] [place], [address] Eosinophils/100 WBC (Bld) 2.3 % Normal 0-5 [facility] Comment on above: Performed By: #### L 501.6710, L3300.6400, L503.7505, L500.4050, L503.6550, L101.9900, L503.6030, L100.0100 #### [facility] [address] [place], [address] Erythrocyte distribution width (RBC) [Ratio] 14.9 % High 11.6-14.6 [facility] Comment on above: Performed By: #### L 501.6710, L3300.6400, L503.7505, L500.4050, L503.6550, L101.9900, L503.6030, L100.0100 #### [facility] [address] [place], [address] Hematocrit (Bld) [Volume fraction] 36.1 % Low 40-54 [facility] Comment on above: Performed By: #### L 501.6710, L3300.6400, L503.7505, L500.4050, L503.6550, L101.9900, L503.6030, L100.0100 #### [facility] [address] [place], [address] Hemoglobin (Bld) [Mass/Vol] 11.5 g/dL Low 13.0-16.5 [facility] Comment on above: Performed By: #### L 501.6710, L3300.6400, L503.7505, L500.4050, L503.6550, L101.9900, L503.6030, L100.0100 #### [facility] [address] [place], [address] IG% 0.400 Normal 0.0-0.9 [facility] Comment on above: Result Comment: IG% - Immature Granulocytes (promyelocytes, myelocytes and metamyelocytes) > 1% indicates that a LEFT SHIFT is Present. Performed By: #### L 501.6710, L3300.6400, L503.7505, L500.4050, L503.6550, L101.9900, L503.6030, L100.0100 #### [facility] [address] [place], [address] Lymphocytes/100 WBC (Bld) 16.1 % Low 19-41 [facility] Comment on above: Performed By: #### L 501.6710, L3300.6400, L503.7505, L500.4050, L503.6550, L101.9900, L503.6030, L100.0100 #### [facility] [address] [place], [address] MCH (RBC) [Entitic mass] 29.3 pg Normal 27.0-32.0 [facility] Comment on above: Performed By: #### L 501.6710, L3300.6400, L503.7505, L500.4050, L503.6550, L101.9900, L503.6030, L100.0100 #### [facility] [address] [place], [address] MCHC (RBC) [Mass/Vol] 31.9 g/dL Low 32-36 [facility] Comment on above: Performed By: #### L 501.6710, L3300.6400, L503.7505, L500.4050, L503.6550, L101.9900, L503.6030, L100.0100 #### [facility] [address] [place], [address] MCV (RBC) [Entitic vol] 91.9 fL Normal 80-94 [facility] Comment on above: Performed By: #### L 501.6710, L3300.6400, L503.7505, L500.4050, L503.6550, L101.9900, L503.6030, L100.0100 #### [facility] [address] [place], [address] Monocytes/100 WBC (Bld) 4.5 % Normal 0-10 [facility] Comment on above: Performed By: #### L 501.6710, L3300.6400, L503.7505, L500.4050, L503.6550, L101.9900, L503.6030, L100.0100 #### [facility] [address] [place], [address] Neutrophils/100 WBC (Bld) 76.2 % High 47-70 [facility] Comment on above: Performed By: #### L 501.6710, L3300.6400, L503.7505, L500.4050, L503.6550, L101.9900, L503.6030, L100.0100 #### [facility] [address] [place], [address] Nucleated RBC (Bld) [#/Vol] 0 10*3/uL Normal 0-5 [facility] Comment on above: Performed By: #### L 501.6710, L3300.6400, L503.7505, L500.4050, L503.6550, L101.9900, L503.6030, L100.0100 #### [facility] [address] [place], [address] Platelet mean volume (Bld) [Entitic vol] 11.6 fL Normal 6.2-12.0 [facility] Comment on above: Performed By: #### L 501.6710, L3300.6400, L503.7505, L500.4050, L503.6550, L101.9900, L503.6030, L100.0100 #### [facility] [address] [place], [address] Platelets (Bld) [#/Vol] 247 10*3/uL Normal 150-450 [facility] Comment on above: Performed By: #### L 501.6710, L3300.6400, L503.7505, L500.4050, L503.6550, L101.9900, L503.6030, L100.0100 #### [facility] [address] [place], [address] RBC (Bld) [#/Vol] 3.93 10*6/uL Low 4.6-6.2 [facility] Comment on above: Performed By: #### L 501.6710, L3300.6400, L503.7505, L500.4050, L503.6550, L101.9900, L503.6030, L100.0100 #### [facility] [address] [place], [address] RDW SD 50.4 fl High 35.1-43.9 [facility] Comment on above: Performed By: #### L 501.6710, L3300.6400, L503.7505, L500.4050, L503.6550, L101.9900, L503.6030, L100.0100 #### [facility] [address] [place], [address] WBC (Bld) [#/Vol] 10.2 10*3/uL Normal 4.4-11.0 [facility] Comment on above: Performed By: #### L 501.6710, L3300.6400, L503.7505, L500.4050, L503.6550, L101.9900, L503.6030, L100.0100 #### [facility] [address] [place], [address] CRPon 09-07-2024 C-REACTIVE PROT 6.91 mg/L High 0.0-3.0 [facility] Comment on above: Result Comment: C-Re active Protein (CRP) provides useful information for the diagnosis, therapy and monitoring of inflammatory processes and associated diseases. For the evaluation of Relative Risk for Cardiovascular Disease, a High Sensitivity CRP (HSCRP) should be ordered. Performed By: #### L 501.6710, L3300.6400, L503.7505, L500.4050, L503.6550, L101.9900, L503.6030, L100.0100 #### [facility] [address] [place], [place], [id number] Comprehensive Metabolic Prof ilon 09-07-2024 Albumin [Mass/Vol] 3.7 g/dL Normal 3.2-5.0 [facility] Comment on above: Performed By: #### L 501.6710, L3300.6400, L503.7505, L500.4050, L503.6550, L101.9900, L503.6030, L100.0100 #### [facility] [address] [place], [place], [id number] Albumin/Globulin [Mass ratio] 0.9 {ratio} Normal 0.9-2.4 [facility] Comment on above: Performed By: #### L 501.6710, L3300.6400, L503.7505, L500.4050, L503.6550, L101.9900, L503.6030, L100.0100 #### [facility] [address] [place], [place], [id number] ALK P 72 U/L Normal 45-117 [facility] Comment on above: Performed By: #### L 501.6710, L3300.6400, L503.7505, L500.4050, L503.6550, L101.9900, L503.6030, L100.0100 #### [facility] [address] [place], [address] ALT [Catalytic activity/Vol] 19 U/L Normal 16-61 [facility] Comment on above: Performed By: #### L 501.6710, L3300.6400, L503.7505, L500.4050, L503.6550, L101.9900, L503.6030, L100.0100 #### [facility] [address] [place], [address] AST [Catalytic activity/Vol] 17 U/L Normal 15-37 [facility] Comment on above: Performed By: #### L 501.6710, L3300.6400, L503.7505, L500.4050, L503.6550, L101.9900, L503.6030, L100.0100 #### [facility] [address] [place], [address] Bilirubin [Mass/Vol] 0.80 mg/dL Normal 0.20-1.00 [facility] Comment on above: Result Comment: For patients on eltrombopag therapy, use of Dimension [place] TBIL is not recommended. Performed By: #### L 501.6710, L3300.6400, L503.7505, L500.4050, L503.6550, L101.9900, L503.6030, L100.0100 #### [facility] [address] [place], [address] BUN/CRE 19.6 RATIO Normal 10-20 [facility] Comment on above: Performed By: #### L 501.6710, L3300.6400, L503.7505, L500.4050, L503.6550, L101.9900, L503.6030, L100.0100 #### [facility] [address] [place], [address] CA,Total 8.7 mg/dL Normal 8.5-10.1 [facility] Comment on above: Performed By: #### L 501.6710, L3300.6400, L503.7505, L500.4050, L503.6550, L101.9900, L503.6030, L100.0100 #### [facility] [address] [place], [address] Chloride [Moles/Vol] 102 mmol/L Normal 98-107 [facility] Comment on above: Performed By: #### L 501.6710, L3300.6400, L503.7505, L500.4050, L503.6550, L101.9900, L503.6030, L100.0100 #### [facility] [address] [place], [address] CO2 [Moles/Vol] 31.0 mmol/L Normal 21.0-32.0 [facility] Comment on above: Performed By: #### L 501.6710, L3300.6400, L503.7505, L500.4050, L503.6550, L101.9900, L503.6030, L100.0100 #### [facility] [address] [place], [address] Creatinine [Mass/Vol] 0.87 mg/dL Normal 0.70-1.30 [facility] Comment on above: Result Comment: The validity of the calculated GFR GFRAA in patients over 70 years has not been determined. Clinical correlation is essential. Performed By: #### L 501.6710, L3300.6400, L503.7505, L500.4050, L503.6550, L101.9900, L503.6030, L100.0100 #### [facility] [address] [place], [address] EST GFR - AA 107 mL/min Normal >60 [facility] Comment on above: Result Comment: Afri can Camb[place] GFR Calc Performed By: #### L 501.6710, L3300.6400, L503.7505, L500.4050, L503.6550, L101.9900, L503.6030, L100.0100 #### [facility] [address] [place], [address] GAP 5 Normal 5-15 [facility] Comment on above: Performed By: #### L 501.6710, L3300.6400, L503.7505, L500.4050, L503.6550, L101.9900, L503.6030, L100.0100 #### [facility] [address] [place], [address] (721) GFR/1.73 sq M.predicted among non-blacks MDRD (S/P/Bld) [Vol rate/Area] 88 mL/min/{1.73_m2} Normal >60 [facility] Comment on above: Result Comment: Non- GFR Calc Performed By: #### L 501.6710, L3300.6400, L503.7505, L500.4050, L503.6550, L101.9900, L503.6030, L100.0100 #### [facility] [address] [place], [address] Globulin (S) [Mass/Vol] 4.1 g/dL Normal 2.2-4.2 [facility] Comment on above: Performed By: #### L 501.6710, L3300.6400, L503.7505, L500.4050, L503.6550, L101.9900, L503.6030, L100.0100 #### [facility] [address] [place], [place], [id number] (709) Glucose [Mass/Vol] 128 mg/dL High 74-106 [facility] Comment on above: Result Comment: Fast ing Glucose result greater than or equal to 126 mg/dL suggests DIABETES MELLITUS per A.D.A. criteria. Performed By: #### L 501.6710, L3300.6400, L503.7505, L500.4050, L503.6550, L101.9900, L503.6030, L100.0100 #### [facility] [address] [place], [address] Potassium [Moles/Vol] 3.1 mmol/L Low 3.5-5.1 [facility] Comment on above: Performed By: #### L 501.6710, L3300.6400, L503.7505, L500.4050, L503.6550, L101.9900, L503.6030, L100.0100 #### [facility] [address] [place], [address] Sodium [Moles/Vol] 139 mmol/L Normal 136-145 [facility] Comment on above: Performed By: #### L 501.6710, L3300.6400, L503.7505, L500.4050, L503.6550, L101.9900, L503.6030, L100.0100 #### [facility] [address] [place], [address] T PROT 7.8 g/dL Normal 6.4-8.2 [facility] Comment on above: Performed By: #### L 501.6710, L3300.6400, L503.7505, L500.4050, L503.6550, L101.9900, L503.6030, L100.0100 #### [facility] [address] [place], [address] Urea nitrogen [Mass/Vol] 17 mg/dL Normal 7-18 [facility] Comment on above: Performed By: #### L 501.6710, L3300.6400, L503.7505, L500.4050, L503.6550, L101.9900, L503.6030, L100.0100 #### [facility] [address] [place], [place], [id number] Erythrocyte Sed Rateon 09-07 SED RATE 20 mm/hr Normal 0-20 [facility] Comment on above: Performed By: #### L 501.6710, L3300.6400, L503.7505, L500.4050, L503.6550, L101.9900, L503.6030, L100.0100 #### [facility] [address] [place], [place], [id number] Testosterone, Serum Totalon 09-07-2024 Testosterone [Mass/Vol] ng/dL Normal [facility] Comment on above: Result Comment: CENT RAL 90% REFERENCE RANGES MALE AGE <50 197.44 - 669.58 ng/dL MALE AGE > or = 50 187.72 - 684.19 ng/dL FEMALE AGE <50 8.38 - 35.01 ng/dL FEMALE AGE > or = 50 <7.00 - 35.92 ng/dL Effective as of 05/27/21 Performed By: #### L 501.6710, L3300.6400, L503.7505, L500.4050, L503.6550, L101.9900, L503.6030, L100.0100 #### [facility] [address] [place], [place], [id number] Thyroid Stim Hormone (TSH)on 09-07-2024 TSH 0.861 uIU/mL Normal 0.358-3.74 0 [facility] Comment on above: Performed By: #### L 501.6710, L3300.6400, L503.7505, L500.4050, L503.6550, L101.9900, L503.6030, L100.0100 #### [facility] [address] [place], [place], [address] CRPon 08-03-2024 C-REACTIVE PROT 8.47 mg/L High 0.0-3.0 [facility] Comment on above: Result Comment: C-Re active Protein (CRP) provides useful information for the diagnosis, therapy and monitoring of inflammatory processes and associated diseases. For the evaluation of Relative Risk for Cardiovascular Disease, a High Sensitivity CRP (HSCRP) should be ordered. Performed By: #### L 501.6710, L3300.6400, L503.7505, L500.4050, L503.6550, L101.9900, L503.6030, L100.0100 #### [facility] [address] [place], [place], [id number] Erythrocyte Sed Rateon 08-03 SED RATE 12 mm/hr Normal 0-20 [facility] Comment on above: Performed By: #### L 501.6710, L3300.6400, L503.7505, L500.4050, L503.6550, L101.9900, L503.6030, L100.0100 #### [facility] [address] [place], [place], [id number] CT ABDOMEN PELVIS W IV CONTR Nubia 07-10-2024 CT ABDOMEN PELVIS W IV CONTRAST Interpreted By: hSaran Recio, STUDY: CT ABDOMEN PELVIS W IV CONTRAST; 07/10/2024 3:18 pm INDICATION: Signs/Symptoms:PROSTATE CANCER. ,C61 Malignant neoplasm of prostate (Multi) COMPARISON: None. ACCESSION NUMBER(S): [id number] ORDERING CLINICIAN: ASMITA ZAMBRANO TECHNIQUE: CT of [...] Sharan Recio 07/11/2024 6:02 PM Dictation workstation: [id number] [facility] Basophil percentageOrdered B y: John Noel on 11-26-2023 Chloride [Moles/Vol] 105 mmol/L 98-107 [facility] Glucose [Mass/Vol] 102 mg/dL 74-106 [facility] Comment on above: Fasting Glucose resu lt from 100 to 125 mg/dL suggests IMPAIRED HOMEOSTASIS per A.D.A. criteria. Potassium [Moles/Vol] 4.0 mmol/L 3.5-5.1 [facility] Sodium [Moles/Vol] 137 mmol/L 136-145 [facility] Laboratory - Chemistry and C hemistry - challengeOrdered By: John Noel on 11-26-2023 CO2 [Moles/Vol] 26.0 mmol/L 21.0-32.0 [facility] Magnesium [Mass/Vol] 2.4 mg/dL 1.6-2.6 [facility] Urea nitrogen/Creatinine [Mass ratio] 16.8 mg/mg 10-20 [facility] No Panel InformationOrdered By: John Noel on 11-26-2023 Estimated GFR (MDRD) Amer 112 mL/min >60 [facility] Comment on above: GFR Calc Estimated GFR (MDRD) Non-Af Amer 93 mL/min >60 [facility] Comment on above: Non- GFR Calc Serum or plasma calcium alfonso urement (mass/volume)Ordered By: John Noel on 11-26-2023 Calcium [Mass/Vol] 9.1 mg/dL 8.5-10.1 [facility] Serum or plasma creatinine m easurement (mass/volume)Ordered By: John Noel on 11-26-2023 Creatinine [Mass/Vol] 0.83 mg/dL 0.70-1.30 [facility] Comment on above: The validity of the calculated GFR & GFRAA in patients over 70 years has not been determined. Clinical correlation is essential. Serum or plasma urea nitroge n measurement (mass/volume)Ordered By: John Noel on 11-26-2023 Urea nitrogen [Mass/Vol] 14 mg/dL 7-18 [facility] Thin prep Papanicolaou smear with manual screeningOrdered By: John Noel on 11-26-2023 Thin prep Papanicolaou smear with manual screening 6 5-15 [facility] INR in Blood by Coagulation assayOrdered By: Zacarias Valdes on 10-12-2023 INR Coag (Bld) [Relative time] 1.0 {INR} [facility] Laboratory - CoagulationOrde red By: Zacarias Valdes on 10-12-2023 aPTT Coag (Bld) [Time] 28.7 s 24.1-36.2 [facility] PT Coag (PPP) [Time] 12.9 s 11.7-14.9 [facility] Culture, urineOrdered By: Samy Noel on 09-15-2023 Bacteria identified Cx Nom (U) GPC Poss Enterococcus sp [facility] Basophil percentageOrdered B y: Manisha Varela on 09-06-2023 Chloride [Moles/Vol] 108 mmol/L 98-107 [facility] Glucose [Mass/Vol] 200 mg/dL 74-106 [facility] Comment on above: Glucose result great er than or equal to 200 mg/dLsuggests DIABETES MELLITUS per A.D.A. criteria. Potassium [Moles/Vol] 3.3 mmol/L 3.5-5.1 [facility] Sodium [Moles/Vol] 139 mmol/L 136-145 [facility] Laboratory - Chemistry and C hemistry - challengeOrdered By: Manisha Varela on 09-06-2023 CO2 [Moles/Vol] 24.0 mmol/L 21.0-32.0 [facility] Urea nitrogen/Creatinine [Mass ratio] 23.3 mg/mg 10-20 [facility] No Panel InformationOrdered By: Manisha Varela on 09-06-2023 Estimated Creatinine Clearance Calc 40.32 ml/min [facility] Estimated GFR (MDRD) Amer 102 mL/min >60 [facility] Comment on above: GFR Calc Estimated GFR (MDRD) Non-Af Amer 84 mL/min >60 [facility] Comment on above: Non- GFR Calc Serum or plasma calcium alfonso urement (mass/volume)Ordered By: Manisha Varela on 09-06-2023 Calcium [Mass/Vol] 8.2 mg/dL 8.5-10.1 [facility] Serum or plasma creatinine m easurement (mass/volume)Ordered By: Manisha Varela on 09-06-2023 Creatinine [Mass/Vol] 0.90 mg/dL 0.70-1.30 [facility] Comment on above: The validity of the calculated GFR & GFRAA in patients over 70 years has not been determined. Clinical correlation is essential. Serum or plasma urea nitroge n measurement (mass/volume)Ordered By: Manisha Varela on 09-06-2023 Urea nitrogen [Mass/Vol] 21 mg/dL 7-18 [facility] Thin prep Papanicolaou smear with manual screeningOrdered By: Manisha Varela on 09-06-2023 Thin prep Papanicolaou smear with manual screening 7 5-15 [facility] Absolute lymphocyte countOrd ered By: Manisha Varela on 09-05-2023 Lymphocytes Auto (Unsp spec) [#/Vol] 1.75 10*3/uL 0.83-4.51 [facility] [facility] [place] Basophil percentageOrdered B y: Manisha Varela on 09-05-2023 Basophils/100 WBC (Bld) 0.5 % 0-1 [facility] Chloride [Moles/Vol] 106 mmol/L 98-107 [facility] Eosinophils/100 WBC (Bld) 1.9 % 0-5 [facility] Glucose [Mass/Vol] 64 mg/dL 74-106 [facility] Neutrophils (Bld) [#/Vol] 5.3 10*3/uL 2.0-7.7 [facility] Neutrophils/100 WBC (Bld) 64.8 % 47-70 [facility] Potassium [Moles/Vol] 4.0 mmol/L 3.5-5.1 [facility] Sodium [Moles/Vol] 137 mmol/L 136-145 [facility] WBC (Bld) [#/Vol] 8.2 10*3/uL 4.4-11.0 [facility] Blood erythrocytes count (nu mber/volume)Ordered By: Manisha Varela on 09-05-2023 RBC (Bld) [#/Vol] 3.50 10*6/uL 4.6-6.2 [facility] Blood hemoglobin measurement (mass/volume)Ordered By: Manisha Varela on 09-05-2023 Hemoglobin (Bld) [Mass/Vol] 10.3 g/dL 13.0-16.5 [facility] Blood lymphocytes/100 leukoc ytesOrdered By: Manisha Varela on 09-05-2023 Lymphocytes/100 WBC (Bld) 21.3 % 19-41 [facility] Blood monocytes/100 leukocyt esOrdered By: Manisha Varela on 09-05-2023 Monocytes/100 WBC (Bld) 11.3 % 0-10 [facility] Blood platelet mean volumeOr dered By: Manisha Varela on 09-05-2023 Platelet mean volume (Bld) [Entitic vol] 11.8 fL 6.2-12.0 [facility] Determination of erythrocyte mean corpuscular volume (MCV)Ordered By: Manisha Varela on 09-05-2023 MCV (RBC) [Entitic vol] 93.4 fL 80-94 [facility] Hematocrit Auto (Bld) [Volum e fraction]Ordered By: Manisha Varela on 09-05-2023 Hematocrit (Bld) [Volume fraction] 32.7 % 40-54 [facility] Laboratory - Chemistry and C hemistry - challengeOrdered By: Manisha Varela on 09-05-2023 CO2 [Moles/Vol] 19.0 mmol/L 21.0-32.0 [facility] Urea nitrogen/Creatinine [Mass ratio] 28.1 mg/mg 10-20 [facility] Laboratory - Hematology and Cell countsOrdered By: Manisha Varela on 09-05-2023 Erythrocyte distribution width (RBC) [Entitic vol] 49.9 fL 35.1-43.9 [facility] Erythrocyte distribution width (RBC) [Ratio] 14.6 % 11.6-14.6 [facility] Immature granulocytes/100 WBC (Bld) 0.200 % 0.0-0.9 [facility] Comment on above: IG% - Immature Granu locytes (promyelocytes, myelocytes and metamyelocytes) > 1% indicates that a LEFT SHIFT is Present. MCH (RBC) [Entitic mass] 29.4 pg 27.0-32.0 [facility] Nucleated RBC/100 WBC (Bld) [Ratio] 0 % 0-5 [facility] MCHC Auto (RBC) [Mass/Vol]Or dered By: Manisha Varela on 09-05-2023 MCHC (RBC) [Mass/Vol] 31.5 g/dL 32-36 [facility] No Panel InformationOrdered By: Manisha Varela on 09-05-2023 Estimated Creatinine Clearance Calc 36.29 ml/min [facility] Estimated GFR (MDRD) Amer 91 mL/min >60 [facility] Comment on above: GFR Calc Estimated GFR (MDRD) Non-Af Amer 75 mL/min >60 [facility] Comment on above: Non- GFR Calc Platelets bldOrdered By: Andrew Varela on 09-05-2023 Platelets (Bld) [#/Vol] 183 10*3/uL 150-450 [facility] Serum or plasma calcium alfonso urement (mass/volume)Ordered By: Manisha Varela on 09-05-2023 Calcium [Mass/Vol] 8.4 mg/dL 8.5-10.1 [facility] Serum or plasma creatinine m easurement (mass/volume)Ordered By: Manisha Varela on 09-05-2023 Creatinine [Mass/Vol] 1.00 mg/dL 0.70-1.30 [facility] Comment on above: The validity of the calculated GFR & GFRAA in patients over 70 years has not been determined. Clinical correlation is essential. Serum or plasma urea nitroge n measurement (mass/volume)Ordered By: Manisha Varela on 09-05-2023 Urea nitrogen [Mass/Vol] 28 mg/dL 7-18 [facility] Thin prep Papanicolaou smear with manual screeningOrdered By: Manisha Varela on 09-05-2023 Thin prep Papanicolaou smear with manual screening 12 5-15 [facility] Absolute lymphocyte countOrd ered By: Robbi Hopkins on 09-04-2023 Lymphocytes Auto (Unsp spec) [#/Vol] 1.47 10*3/uL 0.83-4.51 [facility] Basophil percentageOrdered B y: Robbi Hopkins on 09-04-2023 Basophils/100 WBC (Bld) 0.4 % 0-1 [facility] Bilirubin [Mass/Vol] 1.80 mg/dL 0.20-1.00 [facility] Comment on above: For patients on eltr ombopag therapy, use of Dimension [place] TBIL is not recommended. Chloride [Moles/Vol] 101 mmol/L 98-107 [facility] Eosinophils/100 WBC (Bld) 0.2 % 0-5 [facility] Glucose [Mass/Vol] 94 mg/dL 74-106 [facility] Neutrophils (Bld) [#/Vol] 10.3 10*3/uL 2.0-7.7 [facility] Neutrophils/100 WBC (Bld) 77.7 % 47-70 [facility] Potassium [Moles/Vol] 4.2 mmol/L 3.5-5.1 [facility] Protein [Mass/Vol] 7.2 g/dL 6.4-8.2 [facility] Sodium [Moles/Vol] 134 mmol/L 136-145 [facility] WBC (Bld) [#/Vol] 13.2 10*3/uL 4.4-11.0 [facility] Basophil percentage 5-10 SEEN /hpf 0-5 [facility] Bilirubin Test strip Ql (U)O rdered By: Robbi Hopkins on 09-04-2023 Bilirubin Ql (U) Negative Negative [facility] Blood erythrocytes count (nu mber/volume)Ordered By: Robbi Hopkins on 09-04-2023 RBC (Bld) [#/Vol] 3.84 10*6/uL 4.6-6.2 [facility] Blood hemoglobin measurement (mass/volume)Ordered By: Robbi Hopkins on 09-04-2023 Hemoglobin (Bld) [Mass/Vol] 11.3 g/dL 13.0-16.5 [facility] Blood lymphocytes/100 leukoc ytesOrdered By: Robbi Hopkins on 09-04-2023 Lymphocytes/100 WBC (Bld) 11.1 % 19-41 [facility] Blood monocytes/100 leukocyt esOrdered By: Robbi Hopkins on 09-04-2023 Monocytes/100 WBC (Bld) 10.2 % 0-10 [facility] Blood platelet mean volumeOr dered By: Robbi Hopkins on 09-04-2023 Platelet mean volume (Bld) [Entitic vol] 11.7 fL 6.2-12.0 [facility] Culture, urineOrdered By: Umer Hopkins on 09-04-2023 Bacteria identified Cx Nom (U) Staphylococcus lugdunensis [facility] Determination of erythrocyte mean corpuscular volume (MCV)Ordered By: Robbi Hopkins on 09-04-2023 MCV (RBC) [Entitic vol] 93.0 fL 80-94 [facility] Hematocrit Auto (Bld) [Volum e fraction]Ordered By: Robbi Hopkins on 09-04-2023 Hematocrit (Bld) [Volume fraction] 35.7 % 40-54 [facility] Ketones Test strip Ql (U)Ord ered By: Robbi Hopkins on 09-04-2023 Ketones Ql (U) 50 mg/dl Negative [facility] Laboratory - Chemistry and C hemistry - challengeOrdered By: Robbi Hopkins on 09-04-2023 ALP [Catalytic activity/Vol] 54 U/L 45-117 [facility] ALT [Catalytic activity/Vol] 11 U/L 16-61 [facility] CO2 [Moles/Vol] 17.0 mmol/L 21.0-32.0 [facility] Globulin (S) [Mass/Vol] 3.8 g/dL 2.2-4.2 [facility] Lipase [Catalytic activity/Vol] 11 U/L 13-75 [facility] Comment on above: Please note:LIPASE r evised reference range effective 23. New Lipase methodology. Expected to produce lower values than the previous assay method. NEW Reference Range: 13 - 75 U/L Urea nitrogen/Creatinine [Mass ratio] 25.2 mg/mg 10-20 [facility] Laboratory - Hematology and Cell countsOrdered By: Robbi Hopkins on 09-04-2023 Erythrocyte distribution width (RBC) [Entitic vol] 49.5 fL 35.1-43.9 [facility] Erythrocyte distribution width (RBC) [Ratio] 14.6 % 11.6-14.6 [facility] Immature granulocytes/100 WBC (Bld) 0.400 % 0.0-0.9 [facility] Comment on above: IG% - Immature Granu locytes (promyelocytes, myelocytes and metamyelocytes) > 1% indicates that a LEFT SHIFT is Present. MCH (RBC) [Entitic mass] 29.4 pg 27.0-32.0 [facility] Nucleated RBC/100 WBC (Bld) [Ratio] 0 % 0-5 [facility] MCHC Auto (RBC) [Mass/Vol]Or dered By: Robbi Hopkins on 09-04-2023 MCHC (RBC) [Mass/Vol] 31.7 g/dL 32-36 [facility] Mucus LM Ql (Urine sed)Order ed By: Robbi Hopkins on 09-04-2023 Mucus Ql (Urine sed) 0 SEEN /hpf [facility] Nitrite Test strip Ql (U)Ord ered By: Robbi Hopkins on 09-04-2023 Nitrite Ql (U) Positive Negative [facility] No Panel InformationOrdered By: Robbi Hopkins on 09-04-2023 Estimated Creatinine Clearance Calc 27.02 ml/min [facility] Estimated GFR (MDRD) Amer 62 mL/min >60 [facility] Comment on above: GFR Calc Estimated GFR (MDRD) Non-Af Amer 51 mL/min >60 [facility] Comment on above: Non- GFR Calc Platelets bldOrdered By: Coco Hopkins on 09-04-2023 Platelets (Bld) [#/Vol] 208 10*3/uL 150-450 [facility] Protein Test strip Ql (U)Ord ered By: Robbi Hopkins on 09-04-2023 Protein Ql (U) 15 mg/dl Negative [facility] Serum or plasma albumin alfonso urement (mass/volume)Ordered By: Robbi Hopkins on 09-04-2023 Albumin [Mass/Vol] 3.4 g/dL 3.2-5.0 [facility] Serum or plasma albumin/glob ulin mass ratioOrdered By: Robbi Hopkins on 09-04-2023 Albumin/Globulin [Mass ratio] 0.9 {ratio} 0.9-2.4 [facility] Serum or plasma calcium alfonso urement (mass/volume)Ordered By: Robbi Hopkins on 09-04-2023 Calcium [Mass/Vol] 8.7 mg/dL 8.5-10.1 [facility] Serum or plasma creatinine m easurement (mass/volume)Ordered By: Robbi Hopkins on 09-04-2023 Creatinine [Mass/Vol] 1.39 mg/dL 0.70-1.30 [facility] Comment on above: The validity of the calculated GFR & GFRAA in patients over 70 years has not been determined. Clinical correlation is essential. Serum or plasma urea nitroge n measurement (mass/volume)Ordered By: Robbi Hopkins on 09-04-2023 Urea nitrogen [Mass/Vol] 35 mg/dL 7-18 [facility] Squamous epithelial cells de tection in urine sediment by light microscopyOrdered By: Robbi Hopkins on 09-04-2023 Epithelial cells.squamous LM Ql (Urine sed) 0 SEEN /hpf 0-5 [facility] Thin prep Papanicolaou smear with manual screeningOrdered By: Robbi Hopkins on 09-04-2023 Thin prep Papanicolaou smear with manual screening 10 U/L 15-37 [facility] Thin prep Papanicolaou smear with manual screening 16 5-15 [facility] Urine blood detectionOrdered By: Robbi Hopkins on 09-04-2023 RBC Ql (U) 150 /ul Negative [facility] RBC Ql (U) 0-5 SEEN /hpf 0-5 [facility] Urine clarityOrdered By: Coco Hopkins on 09-04-2023 Clarity (U) Sl. Cloudy Clear [facility] Urine color determinationOrd ered By: Robbi Hopkins on 09-04-2023 Color (U) Yellow Yellow [facility] Urine glucose detectionOrder ed By: Robbi Hopkins on 09-04-2023 Glucose Ql (U) Normal mg/dl Normal [facility] Urine leukocyte esterase det ection by dipstickOrdered By: Robbi Hopkins on 09-04-2023 Leukocyte esterase Test strip Ql (U) 25 /ul Negative [facility] Urine pHOrdered By: Robbi delgadillo on 09-04-2023 pH (U) 6.0 [pH] 5.0 - 8.0 [facility] Urine sediment bacteria coun t by microscopy (number/high power field)Ordered By: Robbi Hopkins on 09-04-2023 Bacteria LM.HPF (Urine sed) [#/Area] 1 /[HPF] None Seen [facility] Urine specific gravity measu rementOrdered By: Robbi Hopkins on 09-04-2023 Specific gravity (U) [Rel density] 1.020 1.002-1.03 0 [facility] Urobilinogen Auto test strip Ql (U)Ordered By: Robbi Hopkins on 09-04-2023 Urobilinogen Ql (U) Normal mg/dl Normal [facility] No Panel InformationOrdered By: Faisal Barth on 08-31-2023 Prostate Specific Antigen Total 18.80 ng/mL 0.0-4.0 [facility] Comment on above: This test was perfor med using the TPSA assay method for theDimension chemistry system. Values obtained with differentassay methods cannot be used interchangably.When changing PSA assays in the course of monitoring apatient, additional sequential testing should be carriedout to confirm baseline values. Basophil percentageOrdered B y: Cynthia Bowen on 07-20-2023 Chloride [Moles/Vol] 106 mmol/L 98-107 [facility] Glucose [Mass/Vol] 114 mg/dL 74-106 [facility] Comment on above: Fasting Glucose resu lt from 100 to 125 mg/dL suggests IMPAIRED HOMEOSTASIS per A.D.A. criteria. Potassium [Moles/Vol] 4.1 mmol/L 3.5-5.1 [facility] Sodium [Moles/Vol] 139 mmol/L 136-145 [facility] Laboratory - Chemistry and C hemistry - challengeOrdered By: Cynthia Bowen on 07-20-2023 CO2 [Moles/Vol] 30.0 mmol/L 21.0-32.0 [facility] Urea nitrogen/Creatinine [Mass ratio] 16.6 mg/mg 10-20 [facility] No Panel InformationOrdered By: Cynthia Bowen on 07-20-2023 Estimated GFR (MDRD) Amer 95 mL/min >60 [facility] Comment on above: GFR Calc Estimated GFR (MDRD) Non-Af Amer 78 mL/min >60 [facility] Comment on above: Non- GFR Calc Serum or plasma calcium alfonso urement (mass/volume)Ordered By: Cynthia Bowen on 07-20-2023 Calcium [Mass/Vol] 8.5 mg/dL 8.5-10.1 [facility] Serum or plasma creatinine m easurement (mass/volume)Ordered By: Cynthia Bowen on 07-20-2023 Creatinine [Mass/Vol] 0.97 mg/dL 0.70-1.30 [facility] Comment on above: The validity of the calculated GFR & GFRAA in patients over 70 years has not been determined. Clinical correlation is essential. Serum or plasma urea nitroge n measurement (mass/volume)Ordered By: Cynthia Bowen on 07-20-2023 Urea nitrogen [Mass/Vol] 16 mg/dL 7-18 [facility] Thin prep Papanicolaou smear with manual screeningOrdered By: Cynthia Bowen on 07-20-2023 Thin prep Papanicolaou smear with manual screening 3 5-15 [facility] Basophil percentageOrdered B y: Cynthia Bowen on 07-09-2023 Chloride [Moles/Vol] 106 mmol/L 98-107 [facility] Glucose [Mass/Vol] 111 mg/dL 74-106 [facility] Comment on above: Fasting Glucose resu lt from 100 to 125 mg/dL suggests IMPAIRED HOMEOSTASIS per A.D.A. criteria. Potassium [Moles/Vol] 4.0 mmol/L 3.5-5.1 [facility] Sodium [Moles/Vol] 139 mmol/L 136-145 [facility] WBC (Bld) [#/Vol] 6.8 10*3/uL 4.4-11.0 [facility] Blood erythrocytes count (nu mber/volume)Ordered By: Cynthia Bowen on 07-09-2023 RBC (Bld) [#/Vol] 4.37 10*6/uL 4.6-6.2 [facility] Blood hemoglobin measurement (mass/volume)Ordered By: Cynthia Bowen on 07-09-2023 Hemoglobin (Bld) [Mass/Vol] 12.8 g/dL 13.0-16.5 [facility] Blood platelet mean volumeOr dered By: Cynthia Bowen on 07-09-2023 Platelet mean volume (Bld) [Entitic vol] 11.2 fL 6.2-12.0 [facility] Determination of erythrocyte mean corpuscular volume (MCV)Ordered By: Cynthia Bowen on 07-09-2023 MCV (RBC) [Entitic vol] 91.1 fL 80-94 [facility] Hematocrit Auto (Bld) [Volum e fraction]Ordered By: Cynthia Bowen on 07-09-2023 Hematocrit (Bld) [Volume fraction] 39.8 % 40-54 [facility] Laboratory - Chemistry and C hemistry - challengeOrdered By: Cynthia Bowen on 07-09-2023 CO2 [Moles/Vol] 28.0 mmol/L 21.0-32.0 [facility] Natriuretic peptide B (Bld) [Mass/Vol] 157.6 pg/mL 0-100 [facility] Urea nitrogen/Creatinine [Mass ratio] 25.1 mg/mg 10-20 [facility] Laboratory - Hematology and Cell countsOrdered By: Cynthia Bowen on 07-09-2023 Erythrocyte distribution width (RBC) [Entitic vol] 45.5 fL 35.1-43.9 [facility] Erythrocyte distribution width (RBC) [Ratio] 13.5 % 11.6-14.6 [facility] MCH (RBC) [Entitic mass] 29.3 pg 27.0-32.0 [facility] MCHC Auto (RBC) [Mass/Vol]Or dered By: Cynthia Bowen on 07-09-2023 MCHC (RBC) [Mass/Vol] 32.2 g/dL 32-36 [facility] No Panel InformationOrdered By: Cynthia Bowen on 07-09-2023 Estimated GFR (MDRD) Amer 111 mL/min >60 [facility] Comment on above: GFR Calc Estimated GFR (MDRD) Non-Af Amer 92 mL/min >60 [facility] Comment on above: Non- GFR Calc Thyroid Stimulating Hormone (TSH) 0.79 uIU/mL 0.358-3.74 [facility] Platelets bldOrdered By: Carlos Bowen on 07-09-2023 Platelets (Bld) [#/Vol] 174 10*3/uL 150-450 [facility] Serum or plasma calcium alfonso urement (mass/volume)Ordered By: Cynthia Bowen on 07-09-2023 Calcium [Mass/Vol] 9.1 mg/dL 8.5-10.1 [facility] Serum or plasma creatinine m easurement (mass/volume)Ordered By: Cynthia Bowen on 07-09-2023 Creatinine [Mass/Vol] 0.84 mg/dL 0.70-1.30 [facility] Comment on above: The validity of the calculated GFR & GFRAA in patients over 70 years has not been determined. Clinical correlation is essential. Serum or plasma urea nitroge n measurement (mass/volume)Ordered By: Cynthia Bowen on 07-09-2023 Urea nitrogen [Mass/Vol] 21 mg/dL 7-18 [facility] Thin prep Papanicolaou smear with manual screeningOrdered By: Cynthia Bowen on 07-09-2023 Thin prep Papanicolaou smear with manual screening 5 5-15 [facility] Absolute lymphocyte countOrd ered By: Dr. Noel on 03-26-2023 Lymphocytes Auto (Unsp spec) [#/Vol] 1.89 10*3/uL 0.83-4.51 [facility] Basophil percentageOrdered B y: Dr. Noel on 03-26-2023 Basophils/100 WBC (Bld) 0.3 % 0-1 [facility] Bilirubin [Mass/Vol] 1.10 mg/dL 0.20-1.00 [facility] Comment on above: For patients on eltr ombopag therapy, use of Dimension [place] TBIL is not recommended. Chloride [Moles/Vol] 104 mmol/L 98-107 [facility] Eosinophils/100 WBC (Bld) 0.4 % 0-5 [facility] Glucose [Mass/Vol] 113 mg/dL 74-106 [facility] Comment on above: Fasting Glucose resu lt from 100 to 125 mg/dL suggests IMPAIRED HOMEOSTASIS per A.D.A. criteria. Neutrophils (Bld) [#/Vol] 8.9 10*3/uL 2.0-7.7 [facility] Neutrophils/100 WBC (Bld) 72.9 % 47-70 [facility] Potassium [Moles/Vol] 4.1 mmol/L 3.5-5.1 [facility] Protein [Mass/Vol] 7.4 g/dL 6.4-8.2 [facility] Sodium [Moles/Vol] 138 mmol/L 136-145 [facility] WBC (Bld) [#/Vol] 12.2 10*3/uL 4.4-11.0 [facility] Blood erythrocytes count (nu mber/volume)Ordered By: Dr. Noel on 03-26-2023 RBC (Bld) [#/Vol] 4.04 10*6/uL 4.6-6.2 [facility] Blood hemoglobin measurement (mass/volume)Ordered By: Dr. Noel on 03-26-2023 Hemoglobin (Bld) [Mass/Vol] 12.1 g/dL 13.0-16.5 [facility] Blood lymphocytes/100 leukoc ytesOrdered By: Dr. Noel on 03-26-2023 Lymphocytes/100 WBC (Bld) 15.6 % 19-41 [facility] Blood monocytes/100 leukocyt esOrdered By: Dr. Noel on 03-26-2023 Monocytes/100 WBC (Bld) 10.6 % 0-10 [facility] Blood platelet mean volumeOr dered By: Dr. Noel on 03-26-2023 Platelet mean volume (Bld) [Entitic vol] 11.2 fL 6.2-12.0 [facility] Determination of erythrocyte mean corpuscular volume (MCV)Ordered By: Dr. Noel on 03-26-2023 MCV (RBC) [Entitic vol] 92.8 fL 80-94 [facility] Hematocrit Auto (Bld) [Volum e fraction]Ordered By: Dr. Noel on 03-26-2023 Hematocrit (Bld) [Volume fraction] 37.5 % 40-54 [facility] Laboratory - Chemistry and C hemistry - challengeOrdered By: Dr. Noel on 03-26-2023 ALP [Catalytic activity/Vol] 65 U/L 45-117 [facility] ALT [Catalytic activity/Vol] 16 U/L 16-61 [facility] CO2 [Moles/Vol] 28.0 mmol/L 21.0-32.0 [facility] Globulin (S) [Mass/Vol] 3.8 g/dL 2.2-4.2 [facility] Urea nitrogen/Creatinine [Mass ratio] 14.3 mg/mg 10-20 [facility] Laboratory - Hematology and Cell countsOrdered By: Dr. Noel on 03-26-2023 Erythrocyte distribution width (RBC) [Entitic vol] 49.5 fL 35.1-43.9 [facility] Erythrocyte distribution width (RBC) [Ratio] 14.4 % 11.6-14.6 [facility] Immature granulocytes/100 WBC (Bld) 0.200 % 0.0-0.9 [facility] Comment on above: IG% - Immature Granu locytes (promyelocytes, myelocytes and metamyelocytes) > 1% indicates that a LEFT SHIFT is Present. MCH (RBC) [Entitic mass] 30.0 pg 27.0-32.0 [facility] Nucleated RBC/100 WBC (Bld) [Ratio] 0 % 0-5 [facility] MCHC Auto (RBC) [Mass/Vol]Or dered By: Dr. Noel on 03-26-2023 MCHC (RBC) [Mass/Vol] 32.3 g/dL 32-36 [facility] No Panel InformationOrdered By: Dr. Noel on 03-26-2023 CA 19-9 Antigen 7 U/mL 0-35 [facility] Comment on above: [employer] El ectrochemiluminescence Immunoassay(ECLIA)Values obtained with different assay methods or kits cannotbe used interchangeably. Results cannot be interpreted asabsolute evidence of the presence or absence of malignantdisease.Performed at: [facility] [employer] [id number] Director: Toi Ponce PhD, Phone: [phone] Estimated GFR (MDRD) Amer 93 mL/min >60 [facility] Comment on above: GFR Calc Estimated GFR (MDRD) Non-Af Amer 77 mL/min >60 [facility] Comment on above: Non- GFR Calc Platelets bldOrdered By: Dr. Noel on 03-26-2023 Platelets (Bld) [#/Vol] 224 10*3/uL 150-450 [facility] Serum or plasma C reactive p rotein measurement (mass/volume)Ordered By: Dr. Noel on 03-26-2023 CRP [Mass/Vol] 39.50 mg/L 0.0-3.0 [facility] Comment on above: C-Reactive Protein ( CRP) provides useful information for thediagnosis, therapy and monitoring of inflammatory processesand associated diseases. For the evaluation of Relative Riskfor Cardiovascular Disease, a High Sensitivity CRP (HSCRP)should be ordered. Serum or plasma albumin alfonso urement (mass/volume)Ordered By: Dr. Noel on 03-26-2023 Albumin [Mass/Vol] 3.6 g/dL 3.2-5.0 [facility] Serum or plasma albumin/glob ulin mass ratioOrdered By: Dr. Noel on 03-26-2023 Albumin/Globulin [Mass ratio] 0.9 {ratio} 0.9-2.4 [facility] Serum or plasma calcium alfonso urement (mass/volume)Ordered By: Dr. Noel on 03-26-2023 Calcium [Mass/Vol] 8.6 mg/dL 8.5-10.1 [facility] Serum or plasma carcinoembry onic antigen measurement (mass/volume)Ordered By: Dr. Noel on 03-26-2023 Carcinoembryonic Ag [Mass/Vol] 0.7 ng/mL 0.0-4.7 [facility] Comment on above: Nonsmokers <3.9 [place] <5.6[employer] Electrochemiluminescence Immunoassay(ECLIA)Values obtained with different assay methods or kitscannot be used interchangeably. Results cannot beinterpreted as absolute evidence of the presence orabsence of malignant disease. Serum or plasma creatinine m easurement (mass/volume)Ordered By: Dr. Noel on 03-26-2023 Creatinine [Mass/Vol] 0.98 mg/dL 0.70-1.30 [facility] Comment on above: The validity of the calculated GFR & GFRAA in patients over 70 years has not been determined. Clinical correlation is essential. Serum or plasma urea nitroge n measurement (mass/volume)Ordered By: Dr. Noel on 03-26-2023 Urea nitrogen [Mass/Vol] 14 mg/dL 7-18 [facility] Thin prep Papanicolaou smear with manual screeningOrdered By: Dr. Noel on 03-26-2023 Thin prep Papanicolaou smear with manual screening 17 U/L 15-37 [facility] Thin prep Papanicolaou smear with manual screening 6 5-15 [facility] Absolute lymphocyte countOrd ered By: Dr. Villarreal on 01-06-2023 Lymphocytes Auto (Unsp spec) [#/Vol] 1.31 10*3/uL 0.83-4.51 [facility] Basophil percentageOrdered B y: Dr. Villarreal on 01-06-2023 Basophils/100 WBC (Bld) 0.3 % 0-1 [facility] Chloride [Moles/Vol] 108 mmol/L 98-107 [facility] Eosinophils/100 WBC (Bld) 1.2 % 0-5 [facility] Glucose [Mass/Vol] 123 mg/dL 74-106 [facility] Comment on above: Fasting Glucose resu lt from 100 to 125 mg/dL suggests IMPAIRED HOMEOSTASIS per A.D.A. criteria. Neutrophils (Bld) [#/Vol] 9.1 10*3/uL 2.0-7.7 [facility] Neutrophils/100 WBC (Bld) 74.2 % 47-70 [facility] Potassium [Moles/Vol] 3.7 mmol/L 3.5-5.1 [facility] Sodium [Moles/Vol] 139 mmol/L 136-145 [facility] WBC (Bld) [#/Vol] 12.2 10*3/uL 4.4-11.0 [facility] Blood erythrocytes count (nu mber/volume)Ordered By: Dr. Villarreal on 01-06-2023 RBC (Bld) [#/Vol] 3.97 10*6/uL 4.6-6.2 [facility] Blood hemoglobin measurement (mass/volume)Ordered By: Dr. Villarreal on 01-06-2023 Hemoglobin (Bld) [Mass/Vol] 11.9 g/dL 13.0-16.5 [facility] Blood lymphocytes/100 leukoc ytesOrdered By: Dr. Villarreal on 01-06-2023 Lymphocytes/100 WBC (Bld) 10.7 % 19-41 [facility] Blood manual differential co mment interpretation (narrative result)Ordered By: Dr. Villarreal on 01-06-2023 Manual differential comment Liang (Bld) [Interp] SCANNED [facility] Blood monocytes/100 leukocyt esOrdered By: Dr. Villarreal on 01-06-2023 Monocytes/100 WBC (Bld) 13.4 % 0-10 [facility] Blood platelet mean volumeOr dered By: Dr. Villarreal on 01-06-2023 Platelet mean volume (Bld) [Entitic vol] 10.8 fL 6.2-12.0 [facility] Determination of erythrocyte mean corpuscular volume (MCV)Ordered By: Dr. Villarreal on 01-06-2023 MCV (RBC) [Entitic vol] 91.9 fL 80-94 [facility] Hematocrit Auto (Bld) [Volum e fraction]Ordered By: Dr. Villarreal on 01-06-2023 Hematocrit (Bld) [Volume fraction] 36.5 % 40-54 [facility] Laboratory - Chemistry and C hemistry - challengeOrdered By: Dr. Villarreal on 01-06-2023 CO2 [Moles/Vol] 26.0 mmol/L 21.0-32.0 [facility] Urea nitrogen/Creatinine [Mass ratio] 11.6 mg/mg 10-20 [facility] Laboratory - Hematology and Cell countsOrdered By: Dr. Villarreal on 01-06-2023 Erythrocyte distribution width (RBC) [Entitic vol] 48.6 fL 35.1-43.9 [facility] Erythrocyte distribution width (RBC) [Ratio] 14.4 % 11.6-14.6 [facility] Immature granulocytes/100 WBC (Bld) 0.200 % 0.0-0.9 [facility] Comment on above: IG% - Immature Granu locytes (promyelocytes, myelocytes and metamyelocytes) > 1% indicates that a LEFT SHIFT is Present. MCH (RBC) [Entitic mass] 30.0 pg 27.0-32.0 [facility] Nucleated RBC/100 WBC (Bld) [Ratio] 0 % 0-5 [facility] MCHC Auto (RBC) [Mass/Vol]Or dered By: Dr. Villarreal on 01-06-2023 MCHC (RBC) [Mass/Vol] 32.6 g/dL 32-36 [facility] No Panel InformationOrdered By: Dr. Villarreal on 01-06-2023 Estimated Creatinine Clearance Calc 46.20 ml/min [facility] Estimated GFR (MDRD) Amer 108 mL/min >60 [facility] Comment on above: GFR Calc Estimated GFR (MDRD) Non-Af Amer 89 mL/min >60 [facility] Comment on above: Non- GFR Calc Platelets bldOrdered By: Dr. Villarreal on 01-06-2023 Platelets (Bld) [#/Vol] 225 10*3/uL 150-450 [facility] Review by pathologistOrdered By: Dr. Villarreal on 01-06-2023 Pathologist review Liang (Unsp spec) [Interp] Reviewed [facility] Comment on above: Previous reported re sult: Sonia anthony Edited by: RGOOD on 01/07/23:1327Neutrophilic leukocytosis.Clinical correlation necessary.Eddi Swartz M.D. 01/07/23 AMENDED REPORT 01/07/23 1327 PATH REV previously reported as: Sonia anthony Serum or plasma calcium alfonso urement (mass/volume)Ordered By: Dr. Villarreal on 01-06-2023 Calcium [Mass/Vol] 8.3 mg/dL 8.5-10.1 [facility] Serum or plasma creatinine m easurement (mass/volume)Ordered By: Dr. Villarreal on 01-06-2023 Creatinine [Mass/Vol] 0.86 mg/dL 0.70-1.30 [facility] Comment on above: The validity of the calculated GFR & GFRAA in patients over 70 years has not been determined. Clinical correlation is essential. Serum or plasma urea nitroge n measurement (mass/volume)Ordered By: Dr. Villarreal on 01-06-2023 Urea nitrogen [Mass/Vol] 10 mg/dL 7-18 [facility] Thin prep Papanicolaou smear with manual screeningOrdered By: Dr. Villarreal on 01-06-2023 Thin prep Papanicolaou smear with manual screening 5 5-15 [facility] Absolute lymphocyte countOrd ered By: Dr. Morgan on 12-27-2022 Lymphocytes Auto (Unsp spec) [#/Vol] 1.73 10*3/uL 0.83-4.51 [facility] Basophil percentageOrdered B y: Dr. Morgan on 12-27-2022 Basophil percentage 0-5 SEEN /hpf 0-5 [facility] Basophils/100 WBC (Bld) 0.5 % 0-1 [facility] Bilirubin [Mass/Vol] 2.10 mg/dL 0.20-1.00 [facility] Comment on above: For patients on eltr ombopag therapy, use of Dimension [place] TBIL is not recommended. Chloride [Moles/Vol] 102 mmol/L 98-107 [facility] Eosinophils/100 WBC (Bld) 1.0 % 0-5 [facility] Glucose [Mass/Vol] 135 mg/dL 74-106 [facility] Comment on above: Fasting Glucose resu lt greater than or equal to 126 mg/dL suggests DIABETES MELLITUS per A.D.A. criteria. Neutrophils (Bld) [#/Vol] 7.5 10*3/uL 2.0-7.7 [facility] Neutrophils/100 WBC (Bld) 69.5 % 47-70 [facility] Potassium [Moles/Vol] 3.4 mmol/L 3.5-5.1 [facility] Protein [Mass/Vol] 7.6 g/dL 6.4-8.2 [facility] Sodium [Moles/Vol] 139 mmol/L 136-145 [facility] WBC (Bld) [#/Vol] 10.8 10*3/uL 4.4-11.0 [facility] Bilirubin Test strip Ql (U)O rdered By: Dr. Morgan on 12-27-2022 Bilirubin Ql (U) Negative Negative [facility] Blood erythrocytes count (nu mber/volume)Ordered By: Dr. Morgan on 12-27-2022 RBC (Bld) [#/Vol] 4.29 10*6/uL 4.6-6.2 [facility] Blood hemoglobin measurement (mass/volume)Ordered By: Dr. Morgan on 12-27-2022 Hemoglobin (Bld) [Mass/Vol] 12.8 g/dL 13.0-16.5 [facility] Blood lymphocytes/100 leukoc ytesOrdered By: Dr. Morgan on 12-27-2022 Lymphocytes/100 WBC (Bld) 16.0 % 19-41 [facility] Blood monocytes/100 leukocyt esOrdered By: Dr. Morgan on 12-27-2022 Monocytes/100 WBC (Bld) 12.6 % 0-10 [facility] Blood platelet mean volumeOr dered By: Dr. Morgan on 12-27-2022 Platelet mean volume (Bld) [Entitic vol] 11.6 fL 6.2-12.0 [facility] Determination of erythrocyte mean corpuscular volume (MCV)Ordered By: Dr. Morgan on 12-27-2022 MCV (RBC) [Entitic vol] 91.4 fL 80-94 [facility] Hematocrit Auto (Bld) [Volum e fraction]Ordered By: Dr. Morgan on 12-27-2022 Hematocrit (Bld) [Volume fraction] 39.2 % 40-54 [facility] Ketones Test strip Ql (U)Ord ered By: Dr. Morgan on 12-27-2022 Ketones Ql (U) Negative Negative [facility] Laboratory - Chemistry and C hemistry - challengeOrdered By: Dr. Morgan on 12-27-2022 ALP [Catalytic activity/Vol] 68 U/L 45-117 [facility] ALT [Catalytic activity/Vol] 11 U/L 16-61 [facility] CO2 [Moles/Vol] 30.0 mmol/L 21.0-32.0 [facility] Globulin (S) [Mass/Vol] 3.7 g/dL 2.2-4.2 [facility] Urea nitrogen/Creatinine [Mass ratio] 11.9 mg/mg 10-20 [facility] Laboratory - Hematology and Cell countsOrdered By: Dr. Morgan on 12-27-2022 Erythrocyte distribution width (RBC) [Entitic vol] 46.6 fL 35.1-43.9 [facility] Erythrocyte distribution width (RBC) [Ratio] 14.0 % 11.6-14.6 [facility] Immature granulocytes/100 WBC (Bld) 0.400 % 0.0-0.9 [facility] Comment on above: IG% - Immature Granu locytes (promyelocytes, myelocytes and metamyelocytes) > 1% indicates that a LEFT SHIFT is Present. MCH (RBC) [Entitic mass] 29.8 pg 27.0-32.0 [facility] Nucleated RBC/100 WBC (Bld) [Ratio] 0 % 0-5 [facility] MCHC Auto (RBC) [Mass/Vol]Or dered By: Dr. Morgan on 12-27-2022 MCHC (RBC) [Mass/Vol] 32.7 g/dL 32-36 [facility] Mucus LM Ql (Urine sed)Order ed By: Dr. Morgan on 12-27-2022 Mucus Ql (Urine sed) 0 SEEN /hpf [facility] Nitrite Test strip Ql (U)Ord ered By: Dr. Morgan on 12-27-2022 Nitrite Ql (U) Negative Negative [facility] No Panel InformationOrdered By: Dr. Morgan on 12-27-2022 Estimated Creatinine Clearance Calc 42.47 ml/min [facility] Estimated GFR (MDRD) Amer 99 mL/min >60 [facility] Comment on above: GFR Calc Estimated GFR (MDRD) Non-Af Amer 82 mL/min >60 [facility] Comment on above: Non- GFR Calc Platelets bldOrdered By: Dr. Morgan on 12-27-2022 Platelets (Bld) [#/Vol] 195 10*3/uL 150-450 [facility] Protein Test strip Ql (U)Ord ered By: Dr. Morgan on 12-27-2022 Protein Ql (U) 15 mg/dl Negative [facility] Serum or plasma albumin alfonso urement (mass/volume)Ordered By: Dr. Morgan on 12-27-2022 Albumin [Mass/Vol] 3.9 g/dL 3.2-5.0 [facility] Serum or plasma albumin/glob ulin mass ratioOrdered By: Dr. Morgan on 12-27-2022 Albumin/Globulin [Mass ratio] 1.1 {ratio} 0.9-2.4 [facility] Serum or plasma calcium alfonso urement (mass/volume)Ordered By: Dr. Morgan on 12-27-2022 Calcium [Mass/Vol] 8.9 mg/dL 8.5-10.1 [facility] Serum or plasma creatinine m easurement (mass/volume)Ordered By: Dr. Morgan on 12-27-2022 Creatinine [Mass/Vol] 0.93 mg/dL 0.70-1.30 [facility] Comment on above: The validity of the calculated GFR & GFRAA in patients over 70 years has not been determined. Clinical correlation is essential. Serum or plasma urea nitroge n measurement (mass/volume)Ordered By: Dr. Morgan on 12-27-2022 Urea nitrogen [Mass/Vol] 11 mg/dL 7-18 [facility] Squamous epithelial cells de tection in urine sediment by light microscopyOrdered By: Dr. Morgan on 12-27-2022 Epithelial cells.squamous LM Ql (Urine sed) 0-5 SEEN /hpf 0-5 [facility] Thin prep Papanicolaou smear with manual screeningOrdered By: Dr. Morgan on 12-27-2022 Thin prep Papanicolaou smear with manual screening 8 U/L 15-37 [facility] Thin prep Papanicolaou smear with manual screening 7 5-15 [facility] Urine blood detectionOrdered By: Dr. Morgan on 12-27-2022 RBC Ql (U) Negative Negative [facility] RBC Ql (U) 0 SEEN /hpf 0-5 [facility] Urine clarityOrdered By: Dr. Morgan on 12-27-2022 Clarity (U) Sl. Cloudy Clear [facility] Urine color determinationOrd ered By: Dr. Morgan on 12-27-2022 Color (U) Yellow Yellow [facility] Urine glucose detectionOrder ed By: Dr. Morgan on 12-27-2022 Glucose Ql (U) Normal mg/dl Normal [facility] Urine leukocyte esterase det ection by dipstickOrdered By: Dr. Morgan on 12-27-2022 Leukocyte esterase Test strip Ql (U) 25 /ul Negative [facility] Urine pHOrdered By: Dr. Meme holcomb on 12-27-2022 pH (U) 7.0 [pH] 5.0 - 8.0 [facility] Urine sediment bacteria coun t by microscopy (number/high power field)Ordered By: Dr. Morgan on 12-27-2022 Bacteria LM.HPF (Urine sed) [#/Area] 0 /[HPF] None Seen [facility] Urine specific gravity measu rementOrdered By: Dr. Morgan on 12-27-2022 Specific gravity (U) [Rel density] 1.010 1.002-1.03 0 [facility] Urobilinogen Auto test strip Ql (U)Ordered By: Dr. Morgan on 12-27-2022 Urobilinogen Ql (U) Normal mg/dl Normal [facility] Basophil percentageOrdered B y: Dr. Barth on 10-12-2022 Chloride [Moles/Vol] 105 mmol/L 98-107 [facility] Glucose [Mass/Vol] 187 mg/dL 74-106 [facility] Comment on above: Fasting Glucose resu lt greater than or equal to 126 mg/dL suggests DIABETES MELLITUS per A.D.A. criteria. Potassium [Moles/Vol] 3.8 mmol/L 3.5-5.1 [facility] Sodium [Moles/Vol] 139 mmol/L 136-145 [facility] WBC (Bld) [#/Vol] 7.0 10*3/uL 4.4-11.0 [facility] Blood erythrocytes count (nu mber/volume)Ordered By: Dr. Barth on 10-12-2022 RBC (Bld) [#/Vol] 4.22 10*6/uL 4.6-6.2 [facility] Blood hemoglobin measurement (mass/volume)Ordered By: Dr. Barth on 10-12-2022 Hemoglobin (Bld) [Mass/Vol] 12.9 g/dL 13.0-16.5 [facility] Blood platelet mean volumeOr dered By: Dr. Barth on 10-12-2022 Platelet mean volume (Bld) [Entitic vol] 11.9 fL 6.2-12.0 [facility] Determination of erythrocyte mean corpuscular volume (MCV)Ordered By: Dr. Barth on 10-12-2022 MCV (RBC) [Entitic vol] 92.7 fL 80-94 [facility] Hematocrit Auto (Bld) [Volum e fraction]Ordered By: Dr. Barth on 10-12-2022 Hematocrit (Bld) [Volume fraction] 39.1 % 40-54 [facility] Laboratory - Chemistry and C hemistry - challengeOrdered By: Dr. Barth on 10-12-2022 CO2 [Moles/Vol] 30.0 mmol/L 21.0-32.0 [facility] Urea nitrogen/Creatinine [Mass ratio] 9.9 mg/mg 10-20 [facility] Laboratory - Hematology and Cell countsOrdered By: Dr. Barth on 10-12-2022 Erythrocyte distribution width (RBC) [Entitic vol] 47.6 fL 35.1-43.9 [facility] Erythrocyte distribution width (RBC) [Ratio] 13.9 % 11.6-14.6 [facility] MCH (RBC) [Entitic mass] 30.6 pg 27.0-32.0 [facility] MCHC Auto (RBC) [Mass/Vol]Or dered By: Dr. Barth on 10-12-2022 MCHC (RBC) [Mass/Vol] 33.0 g/dL 32-36 [facility] No Panel InformationOrdered By: Dr. Barth on 10-12-2022 Estimated GFR (MDRD) Amer 90 mL/min >60 [facility] Comment on above: GFR Calc Estimated GFR (MDRD) Non-Af Amer 74 mL/min >60 [facility] Comment on above: Non- GFR Calc Platelets bldOrdered By: Dr. Barth on 10-12-2022 Platelets (Bld) [#/Vol] 200 10*3/uL 150-450 [facility] Serum or plasma calcium alfonso urement (mass/volume)Ordered By: Dr. Barth on 10-12-2022 Calcium [Mass/Vol] 8.9 mg/dL 8.5-10.1 [facility] Serum or plasma creatinine m easurement (mass/volume)Ordered By: Dr. Barth on 10-12-2022 Creatinine [Mass/Vol] 1.01 mg/dL 0.70-1.30 [facility] Comment on above: The validity of the calculated GFR & GFRAA in patients over 70 years has not been determined. Clinical correlation is essential. Serum or plasma urea nitroge n measurement (mass/volume)Ordered By: Dr. Barth on 10-12-2022 Urea nitrogen [Mass/Vol] 10 mg/dL 7-18 [facility] Thin prep Papanicolaou smear with manual screeningOrdered By: Dr. Barth on 10-12-2022 Thin prep Papanicolaou smear with manual screening 4 5-15 [facility] Basophil percentageon 2021 Chloride [Moles/Vol] 105 mmol/L 98-107 [facility] Work Phone: [phone] Glucose [Mass/Vol] 104 mg/dL 74-106 [facility] Work Phone: Comment on above: Fasting Glucose resu lt from 100 to 125 mg/dL suggests IMPAIRED HOMEOSTASIS per A.D.A. criteria. Potassium [Moles/Vol] 4.1 mmol/L 3.5-5.1 [facility] Work Phone: Sodium [Moles/Vol] 139 mmol/L 136-145 [facility] Work Phone: [phone] WBC (Bld) [#/Vol] 5.7 10*3/uL 4.4-11.0 [facility] Work Phone: [phone] Blood erythrocytes count (nu mber/volume)on 06-03-2022 RBC (Bld) [#/Vol] 3.87 10*6/uL 4.6-6.2 [facility] Work Phone: [phone] Blood hemoglobin measurement (mass/volume)on 06-03-2022 Hemoglobin (Bld) [Mass/Vol] 11.8 g/dL 13.0-16.5 [facility] Work Phone: Blood platelet mean volumeon 06-03-2022 Platelet mean volume (Bld) [Entitic vol] 11.2 fL 6.2-12.0 [facility] Work Phone: [phone] Determination of erythrocyte mean corpuscular volume (MCV)on 06-03-2022 MCV (RBC) [Entitic vol] 90.4 fL 80-94 [facility] Work Phone: [phone] Hematocrit Auto (Bld) [Volum e fraction]on 06-03-2022 Hematocrit (Bld) [Volume fraction] 35.0 % 40-54 [facility] Work Phone: [phone] Laboratory - Chemistry and C hemistry - challengeon 06-03-2022 CO2 [Moles/Vol] 28.0 mmol/L 21.0-32.0 [facility] Work Phone: [phone] Urea nitrogen/Creatinine [Mass ratio] 15.9 mg/mg 10-20 [facility] Work Phone: [phone] Laboratory - Hematology and Cell countson 06-03-2022 Erythrocyte distribution width (RBC) [Entitic vol] 47.1 fL 35.1-43.9 [facility] Work Phone: [phone] Erythrocyte distribution width (RBC) [Ratio] 14.3 % 11.6-14.6 [facility] Work Phone: [phone] MCH (RBC) [Entitic mass] 30.5 pg 27.0-32.0 [facility] Work Phone: [phone] MCHC Auto (RBC) [Mass/Vol]on 06-03-2022 MCHC (RBC) [Mass/Vol] 33.7 g/dL 32-36 [facility] Work Phone: [phone] No Panel Informationon 06-03 Estimated GFR (MDRD) Amer 84 mL/min >60 [facility] Work Phone: [phone] Comment on above: GFR Calc Estimated GFR (MDRD) Non-Af Amer 70 mL/min >60 [facility] Work Phone: [phone] Comment on above: Non- GFR Calc Platelets bldon 06-03-2022 Platelets (Bld) [#/Vol] 180 10*3/uL 150-450 [facility] Work Phone: Serum or plasma calcium alfonso urement (mass/volume)on 06-03-2022 Calcium [Mass/Vol] 9.1 mg/dL 8.5-10.1 [facility] Work Phone: Serum or plasma creatinine m easurement (mass/volume)on 06-03-2022 Creatinine [Mass/Vol] 1.07 mg/dL 0.70-1.30 [facility] Work Phone: Comment on above: The validity of the calculated GFR & GFRAA in patients over 70 years has not been determined. Clinical correlation is essential. Serum or plasma urea nitroge n measurement (mass/volume)on 06-03-2022 Urea nitrogen [Mass/Vol] 17 mg/dL 7-18 [facility] Work Phone: Thin prep Papanicolaou smear with manual screeningon 06-03-2022 Thin prep Papanicolaou smear with manual screening 6 5-15 [facility] Work Phone: Absolute lymphocyte counton 03-05-2022 Lymphocytes Auto (Unsp spec) [#/Vol] 2.16 10*3/uL 0.83-4.51 [facility] Work Phone: Basophil percentageon 2021 Basophils/100 WBC (Bld) 0.6 % 0-1 [facility] Work Phone: Chloride [Moles/Vol] 103 mmol/L 98-107 [facility] Work Phone: Eosinophils/100 WBC (Bld) 5.9 % 0-5 [facility] Work Phone: Glucose [Mass/Vol] 110 mg/dL 74-106 [facility] Work Phone: Comment on above: Fasting Glucose resu lt from 100 to 125 mg/dL suggests IMPAIRED HOMEOSTASIS per A.D.A. criteria. Neutrophils (Bld) [#/Vol] 3.8 10*3/uL 2.0-7.7 [facility] Work Phone: Neutrophils/100 WBC (Bld) 54.3 % 47-70 [facility] Work Phone: Potassium [Moles/Vol] 3.6 mmol/L 3.5-5.1 [facility] Work Phone: Sodium [Moles/Vol] 139 mmol/L 136-145 [facility] Work Phone: WBC (Bld) [#/Vol] 6.9 10*3/uL 4.4-11.0 [facility] Work Phone: Blood erythrocytes count (nu mber/volume)on 03-05-2022 RBC (Bld) [#/Vol] 3.99 10*6/uL 4.6-6.[facility]: Blood hemoglobin measurement (mass/volume)on 03-05-2022 Hemoglobin (Bld) [Mass/Vol] 11.9 g/dL 13.0-16.5 [facility] Work Phone: Blood lymphocytes/100 leukoc yteson 03-05-2022 Lymphocytes/100 WBC (Bld) 31.1 % 19-41 [facility] Work Phone: Blood monocytes/100 leukocyt eson 03-05-2022 Monocytes/100 WBC (Bld) 7.8 % 0-10 [facility] Work Phone: Blood platelet mean volumeon 03-05-2022 Platelet mean volume (Bld) [Entitic vol] 11.5 fL 6.2-12.0 [facility] Work Phone: Determination of erythrocyte mean corpuscular volume (MCV)on 03-05-2022 MCV (RBC) [Entitic vol] 92.0 fL 80-94 [facility] Work Phone: Hematocrit Auto (Bld) [Volum e fraction]on 03-05-2022 Hematocrit (Bld) [Volume fraction] 36.7 % 40-54 [facility] Work Phone: Laboratory - Chemistry and C hemistry - challengeon 03-05-2022 CO2 [Moles/Vol] 30.0 mmol/L 21.0-32.0 [facility] Work Phone: [phone] Natriuretic peptide B (Bld) [Mass/Vol] 225.2 pg/mL 0-100 [facility] Work Phone: [phone] Urea nitrogen/Creatinine [Mass ratio] 11.4 mg/mg 10-20 [facility] Work Phone: [phone] Laboratory - Hematology and Cell countson 03-05-2022 Erythrocyte distribution width (RBC) [Entitic vol] 48.4 fL 35.1-43.9 [facility] Work Phone: [phone] Erythrocyte distribution width (RBC) [Ratio] 14.3 % 11.6-14.6 [facility] Work Phone: [phone] Immature granulocytes/100 WBC (Bld) 0.300 % 0.0-0.9 [facility] Work Phone: [phone] Comment on above: IG% - Immature Granu locytes (promyelocytes, myelocytes and metamyelocytes) > 1% indicates that a LEFT SHIFT is Present. MCH (RBC) [Entitic mass] 29.8 pg 27.0-32.0 [facility] Work Phone: [phone] Nucleated RBC/100 WBC (Bld) [Ratio] 0 % 0-5 [facility] Work Phone: [phone] MCHC Auto (RBC) [Mass/Vol]on 03-05-2022 MCHC (RBC) [Mass/Vol] 32.4 g/dL 32-36 [facility] Work Phone: No Panel Informationon 03-05 Estimated GFR (MDRD) Amer 95 mL/min >60 [facility] Work Phone: Comment on above: GFR Calc Estimated GFR (MDRD) Non-Af Amer 79 mL/min >60 [facility] Work Phone: [phone] Comment on above: Non- GFR Calc Platelets bldon 03-05-2022 Platelets (Bld) [#/Vol] 199 10*3/uL 150-450 [facility] Work Phone: Serum or plasma calcium alfonso urement (mass/volume)on 03-05-2022 Calcium [Mass/Vol] 8.3 mg/dL 8.5-10.1 [facility] Work Phone: Serum or plasma creatinine m easurement (mass/volume)on 03-05-2022 Creatinine [Mass/Vol] 0.96 mg/dL 0.70-1.30 [facility] Work Phone: Comment on above: The validity of the calculated GFR & GFRAA in patients over 70 years has not been determined. Clinical correlation is essential. Serum or plasma urea nitroge n measurement (mass/volume)on 03-05-2022 Urea nitrogen [Mass/Vol] 11 mg/dL 7-18 [facility] Work Phone: Thin prep Papanicolaou smear with manual screeningon 03-05-2022 Thin prep Papanicolaou smear with manual screening 6 5-15 [facility] Work Phone: No Panel Informationon 02-03 Prostate Specific Antigen Total 13.50 ng/mL 0.0-4.0 [facility] Work Phone: Comment on above: This test was perfor med using the TPSA assay method [facility]. Values obtained with differentassay methods cannot be used interchangably.When changing PSA assays in the course of monitoring apatient, additional sequential testing should be carriedout to confirm baseline values. Absolute lymphocyte counton 10-16-2021 Lymphocytes Auto (Unsp spec) [#/Vol] 2.15 10*3/uL 0.83-4.51 [facility] Work Phone: Basophil percentageon 2020 Chloride [Moles/Vol] 104 mmol/L 98-107 [facility] Work Phone: Eosinophils/100 WBC (Bld) 7.8 % 0-5 [facility] Work Phone: [phone] Glucose [Mass/Vol] 104 mg/dL 74-106 [facility] Work Phone: Comment on above: Fasting Glucose resu lt from 100 to 125 mg/dL suggests IMPAIRED HOMEOSTASIS per A.D.A. criteria.Please note revised GLUCOSE reference range effective 2017. Neutrophils (Bld) [#/Vol] 4.4 10*3/uL 2.0-7.7 [facility] Work Phone: Potassium [Moles/Vol] 3.8 mmol/L 3.5-5.1 [facility] Work Phone: Sodium [Moles/Vol] 139 mmol/L 136-145 [facility] Work Phone: WBC (Bld) [#/Vol] 7.8 10*3/uL 4.4-11.0 [facility] Work Phone: Blood erythrocytes count (nu mber/volume)on 10-16-2021 RBC (Bld) [#/Vol] 4.17 10*6/uL 4.6-6.2 [facility] Work Phone: Blood hemoglobin measurement (mass/volume)on 10-16-2021 Hemoglobin (Bld) [Mass/Vol] 12.5 g/dL 13.0-16.5 [facility] Work Phone: Blood lymphocytes/100 leukoc yteson 10-16-2021 Lymphocytes/100 WBC (Bld) 27.4 % 19-41 [facility] Work Phone: Blood monocytes/100 leukocyt eson 10-16-2021 Monocytes/100 WBC (Bld) 8.4 % 0-10 [facility] Work Phone: Blood platelet mean volumeon 10-16-2021 Platelet mean volume (Bld) [Entitic vol] 10.8 fL 6.2-12.0 [facility] Work Phone: Determination of erythrocyte mean corpuscular volume (MCV)on 10-16-2021 MCV (RBC) [Entitic vol] 92.1 fL 80-94 [facility] Work Phone: Hematocrit Auto (Bld) [Volum e fraction]on 10-16-2021 Hematocrit (Bld) [Volume fraction] 38.4 % 40-54 [facility] Work Phone: [phone] Laboratory - Chemistry and C hemistry - challengeon 10-16-2021 CO2 [Moles/Vol] 28.0 mmol/L 21.0-32.0 [facility] Work Phone: [phone] Urea nitrogen/Creatinine [Mass ratio] 16.6 mg/mg 10-20 [facility] Work Phone: [phone] Laboratory - Hematology and Cell countson 10-16-2021 Basophils/100 WBC (Unsp spec) 0.6 % 0-1 [facility] Work Phone: [phone] Erythrocyte distribution width (RBC) [Entitic vol] 48.0 fL 35.1-43.9 [facility] Work Phone: [phone] Erythrocyte distribution width (RBC) [Ratio] 14.3 % 11.6-14.6 [facility] Work Phone: [phone] Immature granulocytes/100 WBC (Bld) 0.100 % 0.0-0.9 [facility] Work Phone: [phone] Comment on above: IG% - Immature Granu locytes (promyelocytes, myelocytes and metamyelocytes) > 1% indicates that a LEFT SHIFT is Present. MCH (RBC) [Entitic mass] 30.0 pg 27.0-32.0 [facility] Work Phone: [phone] Neutrophils/100 WBC (Bld) 55.7 % 47-70 [facility] Work Phone: [phone] Nucleated RBC/100 WBC (Bld) [Ratio] 0 % 0-5 [facility] Work Phone: [phone] MCHC Auto (RBC) [Mass/Vol]on 10-16-2021 MCHC (RBC) [Mass/Vol] 32.6 g/dL 32-36 [facility] Work Phone: [phone] Panel Informationon 10-16 Estimated GFR (MDRD) Amer 111 mL/min >60 [facility] Work Phone: Comment on above: GFR Calc Estimated GFR (MDRD) Non-Af Amer 92 mL/min >60 [facility] Work Phone: Comment on above: Non- GFR Calc Prostate Specific Antigen Total 20.20 ng/mL 0.0-4.0 [facility] Work Phone: Comment on above: This test was perfor med using the TPSA assay method for [facility] chemistry system. Values obtained with differentassay methods cannot be used interchangably.When changing PSA assays in the course of monitoring apatient, additional sequential testing should be carriedout to confirm baseline values. Platelets bldon 10-16-2021 Platelets (Bld) [#/Vol] 247 10*3/uL 150-450 [facility] Work Phone: Serum or plasma calcium alfonso urement (mass/volume)on 10-16-2021 Calcium [Mass/Vol] 9.1 mg/dL 8.5-10.1 [facility] Work Phone: Serum or plasma creatinine m easurement (mass/volume)on 10-16-2021 Creatinine [Mass/Vol] 0.84 mg/dL 0.70-1.30 [facility] Work Phone: Comment on above: The validity of the calculated GFR & GFRAA in patients over 70 years has not been determined. Clinical correlation is essential. Serum or plasma thyroperoxid ase antibody assay (units/volume)on 10-16-2021 TPO Ab Qn [IU]/mL [facility] Work Phone: Comment on above: Performed at: [facility] [address] [id number] Director: Toi Ponce PhD, Phone: [phone] Serum or plasma urea nitroge n measurement (mass/volume)on 10-16-2021 Urea nitrogen [Mass/Vol] 14 mg/dL 7-18 [facility] Work Phone: Thin prep Papanicolaou smear with manual screeningon 10-16-2021 Thin prep Papanicolaou smear with manual screening 7 5-15 [facility] Work Phone: Lab Report: Basic Metabolic Profile (BMP)on 10-28-2017 Anion gap [Moles/Vol] 8 mmol/L Invalid Interpretation Code 5-15 [place] [facility] [employer] Work Phone: [phone] Calcium [Mass/Vol] 8.8 mg/dL Invalid Interpretation Code 8.5-10.1 [place] [employer] Work Phone: [phone] Chloride [Moles/Vol] 102 mmol/L Invalid Interpretation Code 98-107 [place] [employer] Work Phone: [phone] CO2 (BldV) [Partial pressure] 29.0 mmol/L Invalid Interpretation Code 21.0-32.0 [place] [employer] Work Phone: [phone] Creatinine [Mass/Vol] 1.06 mg/dL Invalid Interpretation Code 0.70-1.30 [place] [employer] Work Phone: [phone] GFR/1.73 sq M.predicted among non-blacks MDRD (S/P/Bld) [Vol rate/Area] 71 mL/min/{1.73_m2} Invalid Interpretation Code >60 [place] [employer] Work Phone: [phone] Glomerular Filtration rate 86 mL/min Invalid Interpretation Code >60 [place] [employer] Work Phone: [phone] Glucose [Mass/Vol] 101 mg/dL Invalid Interpretation Code 70-110 [place] [employer] Work Phone: [phone] Potassium [Moles/Vol] 3.6 mmol/L Invalid Interpretation Code 3.5-5.1 [place] [employer] Work Phone: [phone] Sodium [Moles/Vol] 139 mmol/L Invalid Interpretation Code 136-145 [place] [employer] Work Phone: [phone] Urea nitrogen [Mass/Vol] 18 mg/dL Invalid Interpretation Code 7-18 [place] [employer] Work Phone: [phone] Urea nitrogen/Creatinine [Mass ratio] 17.4282802 mg/mg Invalid Interpretation Code 10-20 [place] [employer] Work Phone: [phone] Pacemaker: Pacemaker/ICD Destiny ckon 06-28-2017 lead advisory Device on Alert for early battery depletion. Pt refuses remote monitoring system at this time. 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 Left ventricular Ejection fraction 40 % Invalid Interpretation Code [employer] Work Phone: [phone] Office Visiton 05-24-2017 Documentation of current medications (procedure) Done Invalid Interpretation Code [employer] Phone: [phone] Office Visiton 04-12-2017 Fall risk assessment No Invalid Interpretation Code [employer] Work Phone: [phone] Lab Report: BNP,B-Type NATRI URETIC PEPTIDEon 10-09-2016 Natriuretic peptide B (Bld) [Mass/Vol] 134.5 pg/mL High 0-100 [employer] Work Phone: [phone] Lab Report: Basic Metabolic Profile (BMP)on 10-09-2016 Anion gap 6 mmol/L Invalid Interpretation Code 5-15 [employer] Work Phone: [phone] Anion gap [Moles/Vol] 6 mmol/L Invalid Interpretation Code 5-15 [employer] Work Phone: [phone] BUN/Creatinine Ratio 14.8 RATIO Invalid Interpretation Code 10-20 [employer] Phone: [phone] Calcium [Mass/Vol] 8.8 mg/dL Invalid Interpretation Code 8.5-10.1 [employer] Phone: [phone] Chloride [Moles/Vol] 103 mmol/L Invalid Interpretation Code 98-107 [employer] Work Phone: [phone] CO2 32.0 mmol/L Invalid Interpretation Code 21.0-32.0 [employer] Phone: [phone] CO2 (BldV) [Partial pressure] 32.0 mmol/L Invalid Interpretation Code 21.0-32.0 [employer] Phone: [phone] Creatinine [Mass/Vol] 1.22 mg/dL Invalid Interpretation Code 0.70-1.30 [employer] Phone: [phone] eGFR (non-black) 73 mL/min/{1.73_m2} Invalid Interpretation Code >60 [employer] Phone: GFR/1.73 sq M.predicted among non-blacks MDRD (S/P/Bld) [Vol rate/Area] 61 mL/min/{1.73_m2} Invalid Interpretation Code >60 [employer] Work Phone: [phone] Glomerular Filtration rate 73 mL/min Invalid Interpretation Code >60 [employer] Work Phone: [phone] Glucose [Mass/Vol] 102 mg/dL Invalid Interpretation Code 70-110 [employer] Work Phone: [phone] Potassium [Moles/Vol] 3.9 mmol/L Invalid Interpretation Code 3.5-5.1 [employer] Work Phone: [phone] Sodium [Moles/Vol] 141 mmol/L Invalid Interpretation Code 136-145 [employer] Work Phone: [phone] Urea nitrogen [Mass/Vol] 18 mg/dL Invalid Interpretation Code 7-18 [employer] Work Phone: [phone] Urea nitrogen/Creatinine [Mass ratio] 14.6430124 mg/mg Invalid Interpretation Code 10-20 [employer] Work Phone: [phone] Lab Report: CBC W/Diff, Auto matedon 10-09-2016 Absolute Neut 2.3 X10 3/UL Invalid Interpretation Code 2.0-7.7 [employer] Work Phone: [phone] Basophils/100 WBC (Bld) 0.4 % Invalid Interpretation Code 0-1 [employer] Phone: [phone] Basophils/100 WBC Auto (Bld) 0.4 % Invalid Interpretation Code 0-1 [employer] Work Phone: [phone] Eosinophils/100 leukocytes 5.8 % High 0-5 [employer] Work Phone: [phone] Eosinophils/100 WBC (Bld) 5.8 % High 0-5 [employer] Work Phone: [phone] Erythrocyte distribution width (RBC) [Ratio] 14.2 % Invalid Interpretation Code 11.6-14.6 [employer] Work Phone: [phone] Erythrocyte distribution width Auto Ratio (RBC) 14.2 % Invalid Interpretation Code 11.6-14.6 [facility] Work Phone: [phone] Erythrocytes (RBC) 4.41 10*6/uL Low 4.6-6.[address] [facility] Work Phone: [phone] Hematocrit (Bld) [Volume fraction] 40.5 % Invalid Interpretation Code 40-54 [facility] Work Phone: [phone] Hematocrit (HCT) 40.5 % Invalid Interpretation Code 40-54 [facility] Work Phone: [phone] Hemoglobin (Bld) [Mass/Vol] 13.4 g/dL Invalid Interpretation Code 13.0-16.5 [facility] Work Phone: [phone] Immature granulocytes/100 WBC (Bld) 0.200 % Invalid Interpretation Code 0.0-0.9 [facility] Work Phone: [phone] Lymphocytes 1.60 X10 3/UL Invalid Interpretation Code 0.83-4.51 [facility] Work Phone: [phone] Lymphocytes (Bld) [#/Vol] 1.60 X10 3/UL Invalid Interpretation Code 0.83-4.51 [facility] Work Phone: [phone] Lymphocytes/100 leukocytes 34.6 % Invalid Interpretation Code 19-41 [facility] Work Phone: [phone] Lymphocytes/100 WBC (Bld) 34.6 % Invalid Interpretation Code 19-41 [facility] Work Phone: [phone] MCH 30.4 pg Invalid Interpretation Code 27.0-32.0 [facility] Work Phone: [phone] MCH (RBC) [Entitic mass] 30.4 pg Invalid Interpretation Code 27.0-32.0 [facility] Work Phone: [phone] MCHC mass conc (RBC) 33.1 G/GL Invalid Interpretation Code 32-36 [facility] Work Phone: [phone] MCV 91.8 fL Invalid Interpretation Code 80-94 [facility] Work Phone: [phone] MCV (RBC) [Entitic vol] 91.8 fL Invalid Interpretation Code 80-94 [facility] Work Phone: [phone] mean corpuscular hemoglobin concentration, RBC 33.1 G/GL Invalid Interpretation Code 32-36 [facility] Work Phone: Monocytes/100 leukocytes 9.5 % Invalid Interpretation Code 0-10 [facility] Work Phone: Monocytes/100 WBC (Bld) 9.5 % Invalid Interpretation Code 0-10 [facility] Work Phone: neutrophil count, blood 2.3 X10 3/UL Invalid Interpretation Code 2.0-7.7 [facility] Work Phone: [phone] Neutrophils/100 WBC (Bld) 49.5 % Invalid Interpretation Code 47-70 [facility] Work Phone: [phone] Neutrophils/100 WBC Auto (Bld) 49.5 % Invalid Interpretation Code 47-70 [facility] Work Phone: [phone] Platelet mean volume (Bld) [Entitic vol] 11.6 fL Invalid Interpretation Code 6.2-12.0 [facility] Work Phone: [phone] Platelets 170 10*3/mm3 Invalid Interpretation Code 150-450 [facility] Work Phone: [phone] Platelets (Bld) [#/Vol] 170 10*3/uL Invalid Interpretation Code 150-450 [facility] Work Phone: [phone] PMV by Armando 11.6 fL Invalid Interpretation Code 6.2-12.0 [facility] Work Phone: [phone] RBC (Bld) [#/Vol] 4.41 10*6/uL Low 4.6-6.2 [facility] Work Phone: [phone] RDW SD 47.8 fL High 35.1-43.9 [facility] Work Phone: [phone] red blood cell distribution width, size density 47.8 fL High 35.1-43.9 [facility] Work Phone: [phone] WBC (Bld) [#/Vol] 4.6 10*3/uL Invalid Interpretation Code 4.4-11.0 [facility] Work Phone: [phone] WBC (Leukocytes) 4.6 10*3/uL Invalid Interpretation Code 4.4-11.0 [employer] Work Phone: [phone]) Lab Report: T4 Total, Thyrox inon 10-09-2016 T4 [Mass/Vol] 9.1 ug/dL Invalid Interpretation Code 4.5-12.1 [employer] Work Phone: [phone]) Lab Report: Thyroid Stim Hor fernanda (TSH)on 10-09-2016 Thyroid stimulating hormone (TSH) 0.98 u[iU]/mL Invalid Interpretation Code 0.358-3.74 [employer] Work Phone: [phone] TSH Qn 0.98 m[IU]/L Invalid Interpretation Code 0.358-3.74 [employer] Work Phone: [phone] 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-2016 Left ventricular Ejection fraction 35 % Invalid Interpretation Code [employer] Work Phone: [phone]) Lab Report: Prothrombin Time w/INRon 04-08-2016 INR Coag (PPP) [Relative time] 1.1 {INR} Invalid Interpretation Code [employer] Work Phone: [phone] Prothrombin time (PT) Coag time (PPP) 13.4 s Invalid Interpretation Code 11.7-14.9 [employer] Work Phone: [phone] PT Coag (PPP) [Time] 13.789806233 s Invalid Interpretation Code 11.7-14.9 [employer] Work Phone: [phone]) Lab Report: Urinalysis, Rout ine (Dipstick)on 04-08-2016 Albumin Ql (U) 15 High Negative [employer] Work Phone: [phone] Bilirubin Ql (U) Negative Invalid Interpretation Code Negative [employer] Work Phone: [phone] Bilirubin Ql (U) Negative Invalid Interpretation Code Negative [employer] Work Phone: [phone] Clarity (U) Clear Invalid Interpretation Code Clear [employer] Work Phone: [phone] Color (U) Yellow Invalid Interpretation Code Yellow [employer] Work Phone: [phone] Glucose Ql (U) 100 mg/dL High Normal [employer] Work Phone: [phone] Ketones (U) [Mass/Vol] Negative Invalid Interpretation Code Negative [employer] Work Phone: [phone] Leukocyte esterase Test strip Ql (U) Negative Invalid Interpretation Code Negative [employer] Work Phone: [phone] NITRITE UR Negative Invalid Interpretation Code Negative [employer] Work Phone: [phone] Occult Blood, urine Negative Invalid Interpretation Code Negative [employer] Work Phone: [phone] OCCULT BLOOD-UR Negative Invalid Interpretation Code Negative [employer] Work Phone: [phone] pH (U) 5.0 [pH] Invalid Interpretation Code 5.0 - 8.0 [employer] Work Phone: [phone] Specific gravity Refractometry (U) [Rel density] 1.025 Invalid Interpretation Code 1.002-1.03 0 [employer] Work Phone: [phone] Urine, ketones presence Negative Invalid Interpretation Code Negative [employer] Work Phone: [phone] Urine, leukocyte esterase presence Negative Invalid Interpretation Code Negative [employer] Work Phone: [phone] Urine, pH 5.0 [pH] Invalid Interpretation Code 5.0 - 8.0 [employer] Work Phone: [phone] Urine, protein 15 mg/dL High Negative [employer] Work Phone: [phone] UROBILI Normal mg/dl Invalid Interpretation Code Normal [employer] Work Phone: [phone] Office Visiton 04-08-2016 Tobacco smoking status Tobacco smoking s tatus ARIS Invalid Interpretation Code [employer] Work Phone: [phone] Tobacco use status [facility] Never smoker Invalid Interpretation Code [employer] Work Phone: [phone] Replaced Document: [employer] E CG Observationson 04-08-2016 EKG QRS axis -22 deg Invalid Interpretation Code [employer] Work Phone: [phone] electrocardiogram interpretation Sinus Bradycardia - Nonspecific T-abnormality. ABNORMAL Invalid Interpretation Code [employer] Work Phone: [phone] GE use only - for [employer] import when terms are not otherwise specified 440 ms Invalid Interpretation Code [employer] Work Phone: Heart rate 52 /min Invalid Interpretation Code [employer] Work Phone: Interpretation Sinus Bradycardia - Nonspecific T-abnormality. ABNORMAL Invalid Interpretation Code [employer] Work Phone: P [place] 25 deg Invalid Interpretation Code [employer] Work Phone: P wave axis, electrocardiogram 25 deg Invalid Interpretation Code [employer] Work Phone: [phone] ME Interval 174 ms Invalid Interpretation Code [employer] Work Phone: ME interval, electrocardiogram 174 ms Invalid Interpretation Code [employer] Work Phone: QRS axis, electrocardiogram -22 deg Invalid Interpretation Code [employer] Work Phone: [phone] QRS Duration 108 ms Invalid Interpretation Code [employer] Work Phone: [phone] QRS duration, electrocardiogram 108 ms Invalid Interpretation Code [employer] Work Phone: [phone] QT Interval new path ms Invalid Interpretation Code [employer] Work Phone: [phone] QT interval, electrocardiogram new path ms Invalid Interpretation Code [employer] Work Phone: QTc Serra 440 ms Invalid Interpretation Code [employer] Work Phone: [phone] T [place] 90 deg Invalid Interpretation Code [employer] Work Phone: [phone] T wave axis, electrocardiogram 90 deg Invalid Interpretation Code [employer] Work Phone: Lab Report: Lipid Profileon 09-30-2015 Cholesterol [Mass/Vol] 107 mg/dL Invalid Interpretation Code 200 [employer] Work Phone: Cholesterol in HDL [Mass/Vol] 45 mg/dL Invalid Interpretation Code [employer] Work Phone: Cholesterol in LDL [Mass/Vol] 42 mg/dL Invalid Interpretation Code 0-130 [employer] Work Phone: Lipoprotein.pre-beta [Mass/Vol] 20 mg/dL Invalid Interpretation Code 5-40 [employer] Work Phone: Triglyceride [Mass/Vol] 99 mg/dL Invalid Interpretation Code [employer] Work Phone: Lab Report: Liver Profileon 09-30-2015 Albumin [Mass/Vol] 4.0 g/dL Invalid Interpretation Code 3.4-5.0 [facility] Work Phone: [phone] Alkaline phosphatase (ALP) 59 U/L Invalid Interpretation Code 50-136 [facility] Work Phone: [phone] ALP (Bld) [Catalytic activity/Vol] 59 U/L Invalid Interpretation Code 50-136 [place] [employer] Work Phone: [phone] ALT [Catalytic activity/Vol] 28 U/L Invalid Interpretation Code 12-78 [place] [employer] Work Phone: [phone] AST [Catalytic activity/Vol] 20 U/L Invalid Interpretation Code 15-37 [facility] Work Phone: [phone] Bilirubin [Mass/Vol] 1.40 mg/dL High 0.20-1.00 [facility] [employer] Work Phone: [phone] Bilirubin.direct [Mass/Vol] 0.30 mg/dL Invalid Interpretation Code 0.00-0.30 [place] [employer] Work Phone: [phone] Globulin 3.2 g/dL Invalid Interpretation Code 2.3-3.5 [place] [employer] Work Phone: [phone] Globulin (S) [Mass/Vol] 3.2 g/dL Invalid Interpretation Code 2.3-3.5 [place] [employer] Work Phone: [phone] Protein [Mass/Vol] 7.2 g/dL Invalid Interpretation Code 6.4-8.2 [place] [employer] Work Phone: [phone]) Office Visit: [facility] 09-09-20 15 General cardiovascular disease 10Y risk [#] [employer] Not enough information Invalid Interpretation Code [facility] Work Phone: [phone]) Lab Report: BNP,B-Type NATRI URETIC PEPTIDEon 11-14-2014 Natriuretic peptide B (Bld) [Mass/Vol] 86.4 pg/mL Invalid Interpretation Code 0-100 [employer] Work Phone: [phone]) Lab Report: CBC W/Diff, Auto matedon 11-14-2014 Absolute Neut 2.7 X10 3/UL Invalid Interpretation Code 2.0-7.7 [facility] Work Phone: [phone] Absolute Neutrophil count 2.7 X10 3/UL Invalid Interpretation Code 2.0-7.7 [facility] Work Phone: [phone] Office Visit: [facility] 11-14-19 15 cardiac risk group C Invalid Interpretation Code [facility] Work Phone: [phone] Tobacco smoking status Never Invalid Interpretation Code [facility] Work Phone: [phone] Lab Report: MGon 08-12-2012 Magnesium [Mass/Vol] 2.0 mg/dL Normal 1.8-2.[address] [facility] Work Phone: [phone] Replaced Document: Brent Brown CG Observationson 08-10-2012 Pulse (Heart Rate) 407 ms Invalid Interpretation Code [facility] Work Phone: [phone] QT interval/QT interval (corrected for heart rate), electrocardiogram 407 ms Invalid Interpretation Code [facility] Work Phone: [phone] Vital Signs Date Time Vital Sign Value Performing Clinician Facility 05-28-2025 14:46-0400 Body temperature 98 [degF] Dr. John Noel DO Work Phone: [facility] 05-28-2025 14:46-0400 Diastolic blood pressure 62 mm[Hg] Dr. John Noel DO Work Phone: [facility] 05-28-2025 14:46-0400 Heart rate 82 /min Dr. John Noel DO Work Phone: [facility] 05-28-2025 14:46-0400 Respiratory rate 16 /min Dr. John Noel DO Work Phone: [facility] 05-28-2025 14:46-0400 SaO2% (BldA) [Mass fraction] 99 % Dr. John Noel DO Work Phone: [facility] 05-28-2025 14:46-0400 Systolic blood pressure 116 mm[Hg] Dr. John Noel DO Work Phone: [facility] 05-26-2025 14:49-0400 Body height 157.[address] John Noel DO Work Phone: [facility] 05-26-2025 14:49-0400 Body weight 48.[address] John Noel DO Work Phone: [facility] 05-25-2025 21:25-0400 Body mass index (BMI) [Ratio] 19.7 kg/m2 Dr. John Noel DO Work Phone: [facility] 05-25-2025 20:00-0400 Body temperature 98.8 [degF] Dr. John Noel DO Work Phone: [facility] 05-25-2025 20:00-0400 Diastolic blood pressure 85 mm[Hg] Dr. John Noel DO Work Phone: [facility] 05-25-2025 20:00-0400 Heart rate 75 /min Dr. John Noel DO Work Phone: [facility] 05-25-2025 20:00-0400 Respiratory rate 16 /min Dr. John Noel DO Work Phone: [facility] 05-25-2025 20:00-0400 SaO2% (BldA) [Mass fraction] 98 % Dr. John Noel DO Work Phone: [facility] 05-25-2025 20:00-0400 Systolic blood pressure 105 mm[Hg] Dr. John Noel DO Work Phone: [facility] 05-25-2025 15:51-0400 Body height 160.[address] John Noel DO Work Phone: [facility] 05-25-2025 15:51-0400 Body mass index (BMI) [Ratio] 19.7 kg/m2 Dr. John Noel DO Work Phone: [facility] 05-25-2025 15:51-0400 Body weight 50.[address] John Noel DO Work Phone: [facility] 04-29-2025 11:15-0400 Body temperature 97.4 [degF] Dr. John Noel DO Work Phone: [facility] 04-29-2025 11:15-0400 Diastolic blood pressure 58 mm[Hg] Dr. John Noel DO Work Phone: [facility] 04-29-2025 11:15-0400 Heart rate 63 /min Dr. John Noel DO Work Phone: [facility] 04-29-2025 11:15-0400 Respiratory rate 16 /min Dr. John Noel DO Work Phone: [facility] 04-29-2025 11:15-0400 SaO2% (BldA) [Mass fraction] 98 % Dr. John Noel DO Work Phone: [facility] 04-29-2025 11:15-0400 Systolic blood pressure 127 mm[Hg] Dr. John Noel DO Work Phone: [facility] 04-28-2025 20:32-0400 Body height 160.[address] John Noel DO Work Phone: [facility] 04-28-2025 20:32-0400 Body mass index (BMI) [Ratio] 20.7 kg/m2 Dr. Jonh Noel DO Work Phone: [facility] 04-28-2025 20:32-0400 Body weight 53.[address] John Noel DO Work Phone: [facility] 04-28-2025 18:19-0400 Body temperature 98.7 [degF] Dr. John Noel DO Work Phone: [facility] 04-28-2025 18:19-0400 Diastolic blood pressure 79 mm[Hg] Dr. John Noel DO Work Phone: [facility] 04-28-2025 18:19-0400 Heart rate 80 /min Dr. John Noel DO Work Phone: [facility] 04-28-2025 18:19-0400 Respiratory rate 16 /min Dr. John Noel DO Work Phone: [facility] 04-28-2025 18:19-0400 SaO2% (BldA) [Mass fraction] 100 % Dr. John Noel DO Work Phone: [facility] 04-28-2025 18:19-0400 Systolic blood pressure 137 mm[Hg] Dr. John Noel DO Work Phone: [facility] 04-28-2025 15:25-0400 Body height 160.[address] John Noel DO Work Phone: [facility] 04-28-2025 15:25-0400 Body mass index (BMI) [Ratio] 20.9 kg/m2 Dr. John Noel DO Work Phone: [facility] 04-28-2025 15:25-0400 Body weight 53.[address] John Noel DO Work Phone: [facility] 04-27-2025 23:07-0400 Body temperature 98.3 [degF] Dr. John Noel DO Work Phone: [facility] 04-27-2025 23:07-0400 Diastolic blood pressure 60 mm[Hg] Dr. John Noel DO Work Phone: [facility] 04-27-2025 23:07-0400 Heart rate 100 /min Dr. John Noel DO Work Phone: [facility] 04-27-2025 23:07-0400 Respiratory rate 18 /min Dr. John Noel DO Work Phone: [facility] 04-27-2025 23:07-0400 SaO2% (BldA) [Mass fraction] 97 % Dr. John Noel DO Work Phone: [facility] 04-27-2025 23:07-0400 Systolic blood pressure 146 mm[Hg] Dr. John Noel DO Work Phone: [facility] 04-27-2025 20:05-0400 Body height 160.[address] John Noel DO Work Phone: [facility] 04-27-2025 20:05-0400 Body mass index (BMI) [Ratio] 21.2 kg/m2 Dr. John Noel DO Work Phone: [facility] 04-27-2025 20:05-0400 Body weight 54.[address] John Noel DO Work Phone: [facility] 03-12-2025 07:30-0400 Body mass index (BMI) [Ratio] 20.7 kg/m2 Dr. John Noel DO Work Phone: [facility] 03-12-2025 07:30-0400 Body weight 53.[address] John Noel DO Work Phone: [facility] 03-12-2025 07:30-0400 Diastolic blood pressure 79 mm[Hg] Dr. John Noel DO Work Phone: [facility] 03-12-2025 07:30-0400 Heart rate 69 /min Dr. John Noel DO Work Phone: [facility] 03-12-2025 07:30-0400 Respiratory rate 18 /min Dr. John Noel DO Work Phone: [facility] 03-12-2025 07:30-0400 SaO2% (BldA) [Mass fraction] 97 % Dr. John Noel DO Work Phone: [facility] 03-12-2025 07:30-0400 Systolic blood pressure 139 mm[Hg] Dr. John Noel DO Work Phone: [facility] 02-26-2025 15:47-0400 Diastolic blood pressure 94 mm[Hg] Jian Jiménez MD MPH Work Phone: [facility] 02-26-2025 15:47-0400 Heart rate 72 /min Jian Jiménez MD MPH Work Phone: [facility] 02-26-2025 15:47-0400 Systolic blood pressure 162 mm[Hg] Jian Jiménez MD MPH Work Phone: [facility] 12-16-2024 17:23-0500 Body temperature 98.4 [degF] Dr. John Noel DO Work Phone: [facility] 12-16-2024 17:23-0500 Diastolic blood pressure 83 mm[Hg] Dr. John Noel DO Work Phone: [facility] 12-16-2024 17:23-0500 Heart rate 89 /min Dr. John Noel DO Work Phone: [facility] 12-16-2024 17:23-0500 Respiratory rate 17 /min Dr. John Noel DO Work Phone: [facility] 12-16-2024 17:23-0500 SaO2% (BldA) [Mass fraction] 96 % Dr. John Noel DO Work Phone: [facility] 12-16-2024 17:23-0500 Systolic blood pressure 146 mm[Hg] Dr. John Noel DO Work Phone: [facility] 12-16-2024 14:58-0500 Body height 160.[address] John Noel DO Work Phone: [facility] 12-16-2024 14:58-0500 Body mass index (BMI) [Ratio] 20 kg/m2 Dr. John Noel DO Work Phone: [facility] 12-16-2024 14:58-0500 Body weight 51.[address] John Noel DO Work Phone: [facility] 12-13-2024 15:40-0500 Body height 160 cm Urology Room [facility] 12-13-2024 15:40-0500 Body mass index (BMI) [Ratio] 20.55 kg/m2 [facility] Room [facility] 12-13-2024 15:40-0500 Body weight 52.62 kg [facility] Room [facility] 11-10-2024 10:58-0500 Body mass index (BMI) [Ratio] 21.4 kg/m2 Dr. John Noel DO Work Phone: [facility] 11-10-2024 10:58-0500 Body weight 54.[address] John Noel DO Work Phone: [facility] 11-10-2024 10:58-0500 Diastolic blood pressure 64 mm[Hg] Dr. John Noel DO Work Phone: [facility] 11-10-2024 10:58-0500 Heart rate 69 /min Dr. John Noel DO Work Phone: [facility] 11-10-2024 10:58-0500 Respiratory rate 16 /min Dr. John Noel DO Work Phone: [facility] 11-10-2024 10:58-0500 Systolic blood pressure 142 mm[Hg] Dr. John Noel DO Work Phone: [facility] 07-25-2024 13:00-0400 Diastolic blood pressure 61 mm[Hg] Asmita Zambrano MD Work Phone: [facility] 07-25-2024 13:00-0400 Heart rate 60 /min Asmita Zambrano MD Work Phone: [facility] 07-25-2024 13:00-0400 Respiratory rate 18 /min Asmita Zambrano MD Work Phone: [facility] 07-25-2024 13:00-0400 SaO2% (BldA) [Mass fraction] 96 % Asmita Zambrano MD Work Phone: 7(397)691-058044 [place] [address] 07-25-2024 13:00-0400 Systolic blood pressure 152 mm[Hg] Asmita Zambrano MD Work Phone: 3(389)198-966444 [place] [address] 07-25-2024 12:00-0400 Body temperature 97.5 [degF] Asmita Zambrano MD Work Phone: 1(500)547-540[address] [place] [address] 07-25-2024 08:58-0400 Body height 160 cm Asmita Zambrano MD Work Phone: 4(904)608-003944 [place] [address] 07-25-2024 08:58-0400 Body mass index (BMI) [Ratio] 19.49 kg/m2 Asmita Zambrano MD Work Phone: 7(404)560-899544 [place] [address] 07-25-2024 08:58-0400 Body weight 49.9 kg Asmita Zambrano MD Work Phone: 4(757)514-577044 [place] [address] 07-12-2024 15:25-0400 Body mass index (BMI) [Ratio] 18.95 kg/m2 Asmita Zambrano MD Work Phone: 3(934)026-315744 [place] [address] 07-12-2024 15:25-0400 Body weight 48.53 kg Asmita Zambrano MD Work Phone: 4(757)928-348644 [place] [address] 07-12-2024 15:25-0400 Diastolic blood pressure 74 mm[Hg] Asmita Zambrano MD Work Phone: 0(637)596-172444 [place] [address] 07-12-2024 15:25-0400 Heart rate 68 /min Asmita Zambrano MD Work Phone: 2(243)271-846144 [place] [address] 07-12-2024 15:25-0400 Systolic blood pressure 143 mm[Hg] Asmita Zambrano MD Work Phone: 5(120)126-203644 [place] [address] 06-28-2024 13:36-0400 Body mass index (BMI) [Ratio] 18.6 kg/m2 Asmita Zambrano MD Work Phone: 0(623)952-340744 [place] [address] 06-28-2024 13:36-0400 Body weight 47.63 kg Asmita Zambrano MD Work Phone: 6(498)276-946744 [place] [address] 06-28-2024 13:36-0400 Diastolic blood pressure 80 mm[Hg] Asmita Zambrano MD Work Phone: [facility] 06-28-2024 13:36-0400 Heart rate 62 /min Asmita Zambrano MD Work Phone: [facility] 06-28-2024 13:36-0400 Systolic blood pressure 167 mm[Hg] Asmita Zambrano MD Work Phone: [facility] 06-14-2024 13:14-0400 Body height 160 cm Asmita Zambrano MD Work Phone: [facility] 06-14-2024 13:14-0400 Body mass index (BMI) [Ratio] 18.6 kg/m2 Asmita Zambrano MD Work Phone: 8(268)396-792144 [place] [address] 06-14-2024 13:14-0400 Body weight 47.63 kg Asmita Zambrano MD Work Phone: 9(129)779-758344 [place] [address] 05-17-2024 13:17-0400 Body height 160 cm Asmita Zambrano MD Work Phone: 2(026)069-487844 [place] [address] 05-17-2024 13:17-0400 Body mass index (BMI) [Ratio] 20.02 kg/m2 Asmita Zambrano MD Work Phone: 7(718)852-855844 [place] [address] 05-17-2024 13:17-0400 Body weight 51.26 kg Asmita Zambrano MD Work Phone: 9(348)983-071544 [place] [address] 05-17-2024 13:17-0400 Respiratory rate 16 /min Asmita Zambrano MD Work Phone: [facility] 04-26-2024 13:58-0400 Body weight 50.8 kg Asmita Zambrano MD Work Phone: 7(141)257-516944 [place] [address] 04-26-2024 13:58-0400 Respiratory rate 16 /min Asmita Zambrano MD Work Phone: 0(387)607-631944 [place] [address] 11-23-2023 14:19-0500 Body height 160.[address] John Noel Work Phone: [facility] 11-23-2023 14:19-0500 Body mass index (BMI) [Ratio] 21 kg/m2 Dr. John Noel Work Phone: [facility] 11-23-2023 14:19-0500 Body weight 53.[address] John Noel Work Phone: [facility] 11-23-2023 14:19-0500 Diastolic blood pressure 69 mm[Hg] Dr. John Noel Work Phone: [facility] 11-23-2023 14:19-0500 Heart rate 66 /min Dr. John Noel Work Phone: [facility] 11-23-2023 14:19-0500 Respiratory rate 18 /min Dr. John Noel Work Phone: [facility] 11-23-2023 14:19-0500 SaO2% (BldA) [Mass fraction] 99 % Dr. John Noel Work Phone: [facility] 11-23-2023 14:19-0500 Systolic blood pressure 128 mm[Hg] Dr. John Noel Work Phone: [facility] 10-22-2023 16:24-0500 Body temperature 98.4 [degF] Dr. John Noel Work Phone: [facility] 10-22-2023 16:24-0500 Diastolic blood pressure 60 mm[Hg] Dr. John Noel Work Phone: [facility] 10-22-2023 16:24-0500 Heart rate 64 /min Dr. John Noel Work Phone: [facility] 10-22-2023 16:24-0500 Respiratory rate 18 /min Dr. John Noel Work Phone: [facility] 10-22-2023 16:24-0500 SaO2% (BldA) [Mass fraction] 99 % Dr. John Noel Work Phone: [facility] 10-22-2023 16:24-0500 Systolic blood pressure 110 mm[Hg] Dr. John Noel Work Phone: [facility] 10-20-2023 16:00-0500 Body height 160.[address] John Noel Work Phone: [facility] 10-20-2023 16:00-0500 Body mass index (BMI) [Ratio] 20.7 kg/m2 Dr. John Noel Work Phone: [facility] 10-20-2023 16:00-0500 Body weight [address] John Noel Work Phone: [facility] 09-06-2023 14:09-0500 Body temperature 97.4 [degF] Dr. John Noel Work Phone: [facility] 09-06-2023 14:09-0500 Diastolic blood pressure 74 mm[Hg] Dr. John Noel Work Phone: [facility] 09-06-2023 14:09-0500 Heart rate 78 /min Dr. John Noel Work Phone: [facility] 09-06-2023 14:09-0500 Respiratory rate 18 /min Dr. John Noel Work Phone: [facility] 09-06-2023 14:09-0500 SaO2% (BldA) [Mass fraction] 95 % Dr. John Noel Work Phone: [facility] 09-06-2023 14:09-0500 Systolic blood pressure 139 mm[Hg] Dr. John Noel Work Phone: [facility] 09-06-2023 06:00-0500 Body mass index (BMI) [Ratio] 19.2 kg/m2 Dr. John Noel Work Phone: [facility] 09-06-2023 06:00-0500 Body weight 49.[address] John Noel Work Phone: [facility] 09-06-2023 04:00-0500 Body temperature 97.5 [degF] Dr. John Noel Work Phone: [facility] 09-06-2023 04:00-0500 Diastolic blood pressure 57 mm[Hg] Dr. John Noel Work Phone: [facility] 09-06-2023 04:00-0500 Heart rate 64 /min Dr. John Noel Work Phone: [facility] 09-06-2023 04:00-0500 Respiratory rate 16 /min Dr. John Noel Work Phone: [facility] 09-06-2023 04:00-0500 SaO2% (BldA) [Mass fraction] 97 % Dr. John Noel Work Phone: [facility] 09-06-2023 04:00-0500 Systolic blood pressure 118 mm[Hg] Dr. John Noel Work Phone: [facility] 09-05-2023 09:30-0500 Body height 160.[address] John Noel Work Phone: [facility] 09-04-2023 18:13-0400 Body temperature 98.2 [degF] Dr. John Noel Work Phone: [facility] 09-04-2023 18:13-0400 Diastolic blood pressure 76 mm[Hg] Dr. John Noel Work Phone: [facility] 09-04-2023 18:13-0400 Heart rate 82 /min Dr. John Noel Work Phone: [facility] 09-04-2023 18:13-0400 Respiratory rate 14 /min Dr. John Noel Work Phone: [facility] 09-04-2023 18:13-0400 SaO2% (BldA) [Mass fraction] 97 % Dr. John Noel Work Phone: [facility] 09-04-2023 18:13-0400 Systolic blood pressure 108 mm[Hg] Dr. John Noel Work Phone: [facility] 09-04-2023 15:20-0400 Body height 160.[address] John Noel Work Phone: [facility] 09-04-2023 15:20-0400 Body mass index (BMI) [Ratio] 19.9 kg/m2 Dr. John Noel Work Phone: [facility] 09-04-2023 15:20-0400 Body weight 51.[address] John Noel Work Phone: [facility] 06-17-2023 14:40-0400 Diastolic blood pressure 73 mm[Hg] Dr. John Noel Work Phone: [facility] 06-17-2023 14:40-0400 Heart rate 55 /min Dr. John Noel Work Phone: [facility] 06-17-2023 14:40-0400 Respiratory rate 16 /min Dr. John Noel Work Phone: [facility] 06-17-2023 14:40-0400 Systolic blood pressure 148 mm[Hg] Dr. John Noel Work Phone: [facility] 02-25-2023 14:39-0400 Body height 160.[address] John Noel Work Phone: [facility] 02-25-2023 14:39-0400 Body mass index (BMI) [Ratio] 30 kg/m2 Dr. John Noel Work Phone: [facility] 02-25-2023 14:39-0400 Body weight 76.[address] John Noel Work Phone: [facility] 02-25-2023 14:39-0400 Diastolic blood pressure 83 mm[Hg] Dr. John Noel Work Phone: [facility] 02-25-2023 14:39-0400 Heart rate 78 /min Dr. John Noel Work Phone: [facility] 02-25-2023 14:39-0400 Respiratory rate 18 /min Dr. John Noel Work Phone: [facility] 02-25-2023 14:39-0400 Systolic blood pressure 130 mm[Hg] Dr. John Noel Work Phone: [facility] 01-06-2023 12:03-0500 Diastolic blood pressure 51 mm[Hg] Dr. John Noel Work Phone: [facility] 01-06-2023 12:03-0500 Heart rate 76 /min Dr. John Noel Work Phone: [facility] 01-06-2023 12:03-0500 Respiratory rate 15 /min Dr. John Noel Work Phone: [facility] 01-06-2023 12:03-0500 SaO2% (BldA) [Mass fraction] 96 % Dr. John Noel Work Phone: [facility] 01-06-2023 12:03-0500 Systolic blood pressure 109 mm[Hg] Dr. John Noel Work Phone: [facility] 01-06-2023 08:51-0500 Body mass index (BMI) [Ratio] 21 kg/m2 Dr. John Noel Work Phone: [facility] 01-06-2023 08:51-0500 Body temperature 98.2 [degF] Dr. John Noel Work Phone: [facility] 01-06-2023 08:51-0500 Body weight 53.[address] John Noel Work Phone: [facility] 12-28-2022 00:08-0500 Diastolic blood pressure 77 mm[Hg] Dr. Shailesh Mancini Work Phone: [facility] 12-28-2022 00:08-0500 Heart rate 72 /min Dr. Shailesh Mancini Work Phone: [facility] 12-28-2022 00:08-0500 Respiratory rate 16 /min Dr. Shailesh Mancini Work Phone: [facility] 12-28-2022 00:08-0500 SaO2% (BldA) [Mass fraction] 98 % Dr. Shailesh Mancini Work Phone: [facility] 12-28-2022 00:08-0500 Systolic blood pressure 139 mm[Hg] Dr. Shailesh Mancini Work Phone: [facility] 12-27-2022 20:29-0500 Body height 160.[address] Shailesh Mancini Work Phone: [facility] 12-27-2022 20:29-0500 Body mass index (BMI) [Ratio] 20.5 kg/m2 Dr. Shailesh Mancini Work Phone: [facility] 12-27-2022 20:29-0500 Body temperature 97.1 [degF] Dr. Shailesh Mancini Work Phone: [facility] 12-27-2022 20:29-0500 Body weight 52.[address] Shailesh Mancini Work Phone: [facility] 10-21-2022 17:07-0500 Body temperature 97.9 [degF] Dr. Shailesh Mancini Work Phone: [facility] 10-21-2022 17:07-0500 Diastolic blood pressure 64 mm[Hg] Dr. Shailesh Mancini Work Phone: [facility] 10-21-2022 17:07-0500 Heart rate 83 /min Dr. Shailesh Mancini Work Phone: [facility] 10-21-2022 17:07-0500 Respiratory rate 16 /min Dr. Shailesh Mancini Work Phone: [facility] 10-21-2022 17:07-0500 SaO2% (BldA) [Mass fraction] 96 % Dr. Shailesh Mancini Work Phone: [facility] 10-21-2022 17:07-0500 Systolic blood pressure 121 mm[Hg] Dr. Shailesh Mancini Work Phone: [facility] 10-21-2022 11:02-0500 Body height 160.[address] Shailesh Mancini Work Phone: [facility] Work Phone: 10-21-2022 11:02-0500 Body mass index (BMI) [Ratio] 20.2 kg/m2 Dr. Shailesh Mancini Work Phone: [facility] 10-21-2022 11:02-0500 Body weight [address] Shailesh Mancini Work Phone: [facility] 08-05-2022 14:36-0400 Body height 160.[address] Shailesh Mancini Work Phone: [facility] Work Phone: 08-05-2022 14:36-0400 Body mass index (BMI) [Ratio] 20.2 kg/m2 Dr. Shailesh Mancini Work Phone: [facility] Work Phone: 08-05-2022 14:36-0400 Body weight 51.[address] Shailesh Mancini Work Phone: [facility] Work Phone: 08-05-2022 14:36-0400 Diastolic blood pressure 60 mm[Hg] Dr. Shailesh Mancini Work Phone: [facility] Work Phone: 08-05-2022 14:36-0400 Heart rate 64 /min Dr. Shailesh Mancini Work Phone: [facility] Work Phone: 08-05-2022 14:36-0400 Respiratory rate 18 /min Dr. Shailesh Mancini Work Phone: [facility] Work Phone: 08-05-2022 14:36-0400 Systolic blood pressure 98 mm[Hg] Dr. Shailesh Mancini Work Phone: [facility] Work Phone: 06-03-2022 15:34-0400 Diastolic blood pressure 42 mm[Hg] [facility] Work Phone: 06-03-2022 15:34-0400 Heart rate 72 /min [facility] Work Phone: 06-03-2022 15:34-0400 Respiratory rate 20 /min [facility] Work Phone: 06-03-2022 15:34-0400 Systolic blood pressure 110 mm[Hg] [facility] Work Phone: 03-05-2022 14:27-0400 Body height 160.02 cm [facility] Work Phone: 03-05-2022 14:27-0400 Body mass index (BMI) [Ratio] 20.3 kg/m2 [facility] Work Phone: 03-05-2022 14:27-0400 Body weight 52.16 kg [facility] Work Phone: 03-05-2022 14:27-0400 Diastolic blood pressure 59 mm[Hg] [facility] Work Phone: 03-05-2022 14:27-0400 Heart rate 55 /min [facility] Work Phone: 03-05-2022 14:27-0400 Respiratory rate 12 /min [facility] Work Phone: 03-05-2022 14:27-0400 Systolic blood pressure 121 mm[Hg] [facility] Work Phone: 03-05-2022 14:27-0400 Body height 160.02 cm [facility] Work Phone: 03-05-2022 14:27-0400 Body mass index (BMI) [Ratio] 20.3 kg/m2 [facility] Work Phone: 03-05-2022 14:27-0400 Body weight 52.16 kg [facility] Work Phone: 03-05-2022 14:27-0400 Diastolic blood pressure 59 mm[Hg] [facility] Work Phone: 03-05-2022 14:27-0400 Heart rate 55 /min [facility] Work Phone: 03-05-2022 14:27-0400 Respiratory rate 12 /min [facility] Work Phone: 03-05-2022 14:27-0400 Systolic blood pressure 121 mm[Hg] [facility] Work Phone: 05-24-2017 11:35-0400 Body height 160.02 cm [facility] Work Phone: 05-24-2017 11:35-0400 Body mass index (BMI) [Ratio] 23.82 kg/m2 Jeannakurt Dasia [facility] Work Phone: 05-24-2017 11:35-0400 Body weight 61.01 kg Brunoradha [facility] Work Phone: 05-24-2017 11:35-0400 Diastolic blood pressure 58 mm[Hg] [facility] Work Phone: 05-24-2017 11:35-0400 Heart rate 54 /min Chantalkurt Dasia [facility] Work Phone: 05-24-2017 11:35-0400 Respiratory rate 20 /min [facility] Work Phone: 05-24-2017 11:35-0400 Systolic blood pressure 116 mm[Hg] Maureen Forman [facility] Work Phone: 05-24-2017 11:35-0400 Weight 61.01 kg Elsy Grubbs RN [facility] Work Phone: 04-12-2017 13:39-0400 Body height 160.02 cm Leonora Felice [facility] Work Phone: 04-12-2017 13:39-0400 Body mass index (BMI) [Ratio] 23.45 kg/m2 Leonora Viveros [facility] Work Phone: 04-12-2017 13:39-0400 Body weight 60.06 kg Leonora Felice [facility] Work Phone: 04-12-2017 13:39-0400 Diastolic blood pressure 50 mm[Hg] Leonora Viveros [facility] Work Phone: 04-12-2017 13:39-0400 Heart rate 52 /min Leonora Viveros [facility] Work Phone: 04-12-2017 13:39-0400 Respiratory rate 16 /min Leonora Felice [facility] Work Phone: 04-12-2017 13:39-0400 Systolic blood pressure 110 mm[Hg] Leonora Felice [facility] Work Phone: 04-12-2017 13:39-0400 Weight 60.06 kg Elsy Grubbs RN [facility] Work Phone: 10-09-2016 12:49-0500 [...] blood pressure 60 mm[Hg] Elsy Grubbs RN [facility] Work Phone: 11-14-2014 15:17-0500 Heart rate 60 /min TERESITA [facility] Work Phone: 11-14-2014 15:17-0500 Heart rate 64 /min TER[facility] Work Phone: 11-14-2014 15:17-0500 Systolic blood pressure 98 mm[Hg] TERESITA [facility] Work Phone: 11-14-2014 15:17-0500 Systolic [...] Date Encounter Type Care Provider Facility Start: 07-10-2025 ambulatory [facility]: [facility] Start: 06-26-2025 End: 06-26-2025 ambulatory [facility] Ambulatory Start: 06-22-2025 End: 06-22-[address] John Noel DO Work Phone: -[facility] Start: 06-22-2025 End: 06-22-[address] Timoteo Mullins MD -[facility] Work Phone: Start: 05-28-2025 Non-patient / Non-visit Dr. Natanael Nowak MD -[facility] Work Phone: Start: 05-27-2025 Non-patient / Non-visit Dr. Natanael Nowak MD -[facility] Work Phone: Start: 05-26-2025 Non-patient / Non-visit Dr. Natanael Nowak MD -[facility] Work Phone: Start: 05-25-2025 Non-patient / Non-visit Dr. Suraj Garg DO -[facility] Work Phone: Start: 05-25-2025 ambulatory [facility] Start: 05-25-2025 End: 05-28-2025 Evaluation and management of inpatient Dr. Suraj Garg DO -[facility] 3 Work Phone: Start: 05-21-2025 End: 05-21-2025 ambulatory [facility] Ambulatory Start: 05-09-2025 End: 05-09-[address] John Noel DO Work Phone: -Radiology [facility] Start: 05-09-2025 End: 05-09-[address] John Noel DO -Radiology [facility] Work Phone: Start: 05-09-2025 End: 05-09-2025 ambulatory [facility] Start: 05-03-2025 End: 05-03-2025 ambulatory [facility] Ambulatory Start: 04-29-2025 Non-patient / Non-visit Dr. Cheryl Ochoa DO -[facility] Work Phone: Start: 04-29-2025 ambulatory Manisha Varela Facility:[facility] Start: 04-29-2025 End: 04-29-2025 Evaluation and management [...] 04-24-2025 [facility] Work Phone: [facility] Comment on above: Prostate cancer (Mul ti) (Primary Dx); Urinary retention; Bladder spasm; Malignant neoplasm of prostate (Multi) Start: 04-24-2025 End: 04-25-[address] [facility] Ambulatory Start: 04-09-2025 End: 04-09-2025 ambulatory [facility] Ambulatory Start: 03-12-2025 End: 03-12-2025 Patient encounter procedure Cynthia PRO -[facility] Work Phone: Start: 03-12-2025 End: 03-12-2025 ambulatory [facility] Start: 03-02-2025 End: 03-02-[address] John Noel DO Work Phone: -[facility] Start: 03-02-2025 End: 03-02-[address] Timoteo Mullins MD -[facility] Work Phone: Start: 02-26-2025 End: 02-26-2025 Patient encounter procedure Jian Jiménez MD MPH Work Phone: [facility] Comment on above: Urinary retention Start: 02-26-2025 End: 02-26-2025 ambulatory [facility] Ambulatory Start: 02-05-2025 End: 02-05-[address] John Noel DO Work Phone: [facility] Work Phone: Start: 02-05-2025 End: 02-05-[address] John Noel DO -Laboratory, [facility] Start: 02-05-2025 End: 02-05-2025 ambulatory [facility] Facility:[facility] Start: 01-03-2025 End: 01-03-2025 ambulatory [facility] Ambulatory Start: 01-03-2025 End: 01-03-2025 Office outpatient visit 5 minutes Asmita Zambrano MD Work Phone: [facility] Comment on above: Urinary retention Start: 12-16-2024 End: 12-16-2024 Emergency department patient visit Dr. Timoteo Mckenna DO -Emergency Department Work Phone: Start: 12-13-2024 End: 12-13-2024 Patient encounter procedure Urology [id number] Procedure Room [facility] Comment on above: Bladder spasms (Prim federico Dx); Urinary retention Start: 12-13-2024 End: 12-13-2024 ambulatory [facility] Ambulatory Start: 12-08-2024 End: 12-08-[address] John Noel DO -Laboratory, [facility] Start: 12-08-2024 End: 12-08-2024 ambulatory [facility] Facility:[facility] Start: 12-06-2024 End: 12-06-2024 Office outpatient visit 15 minutes Asmita Zambrano MD Work Phone: [facility] Comment on above: Urinary retention; Bladder spasm; Malignant neoplasm of prostate (Multi) Start: 12-06-2024 End: 12-06-2024 ambulatory [facility] Ambulatory Start: 12-01-2024 End: 12-01-2024 ambulatory [facility] Facility:[facility] Start: 12-01-2024 End: 12-01-[address] Timoteo Mullins MD -[facility] Work Phone: Start: 11-10-2024 End: 11-10-[address] Timoteo Mullins MD -[facility] Work Phone: Start: 11-10-2024 End: 11-10-2024 ambulatory [facility] Facility:[facility] Start: 10-18-2024 End: 10-18-2024 Office outpatient visit 5 minutes Asmita Zambrano MD Work Phone: [facility] Comment on above: Urinary retention Start: 10-18-2024 End: 10-18-2024 ambulatory [facility] Amb[facility] Start: 09-06-2024 End: 09-07-2024 ambulatory [facility] Amb[facility] Start: 09-01-2024 End: 09-01-2024 ambulatory [facility] Facility:[facility] Start: 08-03-2024 End: 08-03-2024 ambulatory [facility] Facility:[facility] Start: 07-25-2024 End: 07-25-2024 Subsequent hospital visit by physician Asmita Zambrano MD Work Phone: [facility] Comment on above: Urinary retention (P rimary Dx) Start: 07-24-2024 ambulatory [facility] Start: 07-12-2024 End: 07-12-2024 Office outpatient visit 25 minutes Asmita Zambrano MD Work Phone: [facility] Comment on above: Malignant neoplasm o f prostate (Multi); Abnormal digital rectal exam; Elevated PSA; Retention of urine Start: 07-12-2024 End: 07-12-2024 ambulatory [facility] Ambulatory Start: 07-10-2024 End: 07-10-2024 Subsequent hospital visit by physician Darrell [address] Comment on above: Malignant neoplasm o f prostate (Multi) Start: 07-10-2024 End: 07-10-2024 ambulatory [facility] Start: 06-28-2024 End: 06-28-2024 Office outpatient visit 25 minutes Asmita Zambrano MD Work Phone: [facility] Comment on above: Elevated PSA; Abnormal digital rectal exam; Malignant neoplasm of prostate (Multi); Retention of urine Start: 06-28-2024 End: 06-28-2024 ambulatory [facility] Ambulatory Start: 06-14-2024 End: 06-14-2024 Patient encounter procedure Asmita Zambrano MD Work Phone: [facility] Comment on above: Elevated PSA (Primar y Dx) Start: 05-17-2024 End: 05-17-2024 Patient encounter procedure Asmita Zambrano MD Work Phone: [facility] Comment on above: Incomplete bladder e mptying (Primary Dx) Start: 04-26-2024 End: 04-26-2024 Office outpatient new 45 minutes Asmita Zambrano MD Work Phone: [facility] Comment on above: Benign prostatic hyp erplasia with lower urinary tract symptoms, symptom details unspecified; Retention of urine; Nocturia; Abnormal digital rectal exam Start: 11-26-2023 End: 11-26-[address] John Noel Work Phone: [facility] Work Phone: Start: 11-26-2023 End: 11-26-[address] [facility] Start: 11-23-2023 End: 11-23-[address] John Noel Work Phone: [facility] Work Phone: Start: 10-20-2023 End: 10-22-2023 Evaluation and management of inpatient Dr. John Noel [facility] Work [facility]: Start: 10-20-2023 End: 10-22-[address] John Noel Work Phone: [facility] Work Phone: Start: 10-12-2023 End: 10-12-2023 Non-patient / Non-visit Dr. John Noel Work Phone: [facility] Work Phone: Start: 10-12-2023 End: 10-12-[address] John Noel Work Phone: [facility] Work Phone: Start: 10-12-2023 End: 10-12-[address] [facility] Start: 09-15-2023 End: 09-15-[address] John Noel Work Phone: [facility] Work Phone: Start: 09-15-2023 End: 09-15-[address] [facility]el [facility] Work Phone: Start: 09-06-2023 Non-patient / Non-visit Dr. John Noel Work Phone: [facility] Work Phone: Start: 09-05-2023 Non-patient / Non-visit Dr. John Noel Work Phone: [facility] Work Phone: Start: 09-04-2023 End: 09-06-2023 Evaluation and management of inpatient Dr. John Noel [facility] Work Phone: Start: 09-04-2023 End: 09-06-[address] John Noel Work Phone: [facility] Work Phone: Start: 09-03-2023 End: 09-03-[address] John Noel Work Phone: [facility] Work Phone: Start: 08-31-2023 End: 08-31-[address] John Noel Work Phone: [facility] Work Phone: Start: 08-31-2023 End: 08-31-[address] John Noel Work Phone: [facility]-Laboratory, Specimen Work Phone: Start: 07-20-2023 End: 07-20-[address] John Noel Work Phone: [facility] Work Phone: Start: 07-20-2023 End: 07-20-[address] John Noel Work Phone: [facility]-Labor[facility] Work Phone: Start: 07-09-2023 End: 07-09-[address] John Noel Work Phone: [facility] Work Phone: Start: 07-09-2023 End: 07-09-[address] John Noel Work Phone: [facility] Work Phone: Start: 06-17-2023 End: 06-17-[address] John Noel Work Phone: [facility] Work Phone: Start: 05-11-2023 End: 05-11-[address] John Noel Work Phone: [facility] Work Phone: Start: 05-11-2023 End: 05-11-[address] John Noel Work Phone: [facility] Work Phone: Start: 04-07-2023 End: 04-07-[address] John Noel Work Phone: [facility] Work Phone: Start: 03-26-2023 End: 03-26-[address] John Noel Work Phone: [facility] Work Phone: Start: 03-26-2023 End: 03-26-[address] John Noel Work Phone: [facility] Start: 02-25-2023 End: 02-25-[address] John Noel Work Phone: [facility] Start: 02-24-2023 End: 02-24-[address] John Noel Work Phone: [facility] Start: 02-17-2023 Non-patient / Non-visit Dr. John Noel Work Phone: [facility] Start: 01-06-2023 End: 01-06-2023 Emergency department patient visit Dr. John Noel Work Phone: [facility]-Emergency Department Start: 12-27-2022 End: 12-28-2022 Emergency department patient visit Dr. Shailesh Mancini Work Phone: [facility]-Emergency Department Start: 11-18-2022 End: 11-18-[address] Shailesh Mancini Work Phone: [facility] Start: 10-21-2022 End: 10-21-2022 Admission to same day surgery center Dr. Shailesh Mancini [facility] Start: 10-21-2022 End: 10-21-[address] Shailesh Mancini Work Phone: [facility] Work Phone: Start: 10-12-2022 End: 10-12-[address] Shailesh Mancini Work Phone: [facility] Work Phone: Start: 10-12-2022 End: 10-12-[address] Shailesh Mancini Work Phone: [facility]-Laboratory Start: 08-05-2022 End: 08-05-[address] Shailesh Mancini Work Phone: [facility] Start: 07-18-2022 End: 07-18-[address] Shailesh Mancini Work Phone: [facility] Start: 06-03-2022 End: 06-03-2022 Patient encounter procedure Shailesh [facility] Start: 04-15-2022 End: 04-15-2022 Patient encounter procedure Shailesh [facility] Start: 03-05-2022 End: 03-05-2022 Patient encounter procedure [facility] Start: 02-03-2022 End: 02-03-2022 Patient encounter procedure [facility] Start: 12-31-2021 End: 12-31-2021 Patient encounter procedure [facility] Start: 10-16-2021 Patient encounter procedure [facility] Start: 10-18-2011 End: 10-18-2011 REFILL - MYCHART Marino Calderón Jude Work Phone: Gastroenterology Comment on above: RE: Medication Renew al Request Procedures Date Procedure Procedure Detail Performing Clinician Start: 05-28-[address] John Noel DO Work Phone: Start: 05-26-[address] John Noel DO Work Phone: Start: 05-25-2025 Urnls dip stick/tabl et reagent auto microscopy Dr. John Noel DO Work Phone: Start: 05-25-2025 X-ray of chest, PA a nd lateral views Dr. John Noel DO Work Phone: Start: 05-25-[address] John Noel DO Work Phone: Start: 05-25-[address] John Noel DO Work Phone: Start: 05-09-2025 Plain X-ray abdomen Dr. John [...] Robbi Abbott MD Start: 05-24-2017 End: 05-24-2017 PFAdeel [...] PA-C Work Phone: Start: 11-14-2014 End: 11-14-2014 MM Abril Dupree PA-C Work Phone: Start: 11-14-2014 [...] End: 08-10-2012 Follow Up Appt 6 months oRbbi Abbott MD Start: 08-10-2012 End: 08-17-2012 Magnesium [...] Plasma Robbi Abbott MD Start: 05-02-2012 End: 05-20-2013 Nuclear stress test -adenosine Robbi Abbott MD Start: 01-13-2011 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, HX OF Elsy Grubbs RN Plan of Treatment Date Care Activity Detail Author Start: 01-25-2030 DTaP/Tdap/Td Vaccines (2 - Td or Tdap) DTaP/Tdap/Td Vaccines (2 - Td or Tdap) [facility] Start: 10-24-2025 End: 04-24-2026 Prostate specific Ag [Mass/volume] in Serum or Plasma PSA Lab Routine Prostate cancer (Multi) Expected: 10/24/2025 (Approximate), Expires: 04/24/2026 [facility] Work Phone: Comment on above: Expected: 10/24/2025 (Approximate), Expi res: 04/24/2026 Start: 10-23-2025 End: 10-23-2025 Patient encounter procedure 10/23/2025 1:30 PM EST Office Visit [facility] [address] [facility] [address] [place] [address] Cheryl Sutherland, BOOK CLEANER-RECREATIONAL THERAPIST [address] [place] [address] [facility] Start: 07-21-2025 Creatinine measurement Creatinine Level [facility] Start: 05-28-2025 Patient discharge [facility] Start: 05-25-2025 Following clinical pathway protocol [facility] Start: 05-25-2025 Assessment of risk of venous thromboembolism [facility] Start: 05-25-2025 Insertion of catheter into peripheral vein [facility] Start: 05-25-2025 Patient referral to dietitian [facility] Start: 05-25-2025 Providing care according to standard [facility] Start: 05-25-2025 Provision of activity privileges [facility] Start: 05-25-2025 Referral to occupational therapist [facility] Start: 05-25-2025 Referral to service [facility] Start: 05-25-2025 Verification routine [facility] Start: 05-25-2025 Hospital admission, emergency, from emergency room, medical nature [facility] Start: 05-25-2025 Admission procedure [facility] Start: 05-25-2025 End: 05-25-2025 [facility] Start: 05-25-2025 Bacteria identified in Blood by Culture Blood Culture [facility] Start: 05-25-2025 Blood culture Blood Culture [facility] Start: 05-25-2025 Patient referral to dietitian [facility] Start: 05-21-2025 End: 05-21-2025 Clinical Support 05/21/2025 1:30 PM EDT Clinical Support [facility] [address] [address] [facility] Start: 04-29-2025 Patient discharge [facility] Start: 04-29-2025 Admission procedure [facility] Start: 04-28-2025 Provision of activity privileges [facility] Start: 04-28-2025 Assessment of risk of venous thromboembolism [facility] Start: 04-28-2025 Insertion of catheter into peripheral vein [facility] Start: 04-28-2025 Measuring intake and output [facility] Start: 04-28-2025 Providing care according to standard [facility] Start: 04-28-2025 Referral to occupational therapist [facility] Start: 04-28-2025 Referral to service [facility] Start: 04-28-2025 [facility] Start: 04-28-2025 End: 04-28-2025 Following clinical pathway protocol [facility] Start: 04-28-2025 Admission procedure [facility] Start: 04-28-2025 Hospital admission, emergency, from emergency room, medical nature [facility] Start: 04-28-2025 [facility] Start: 04-27-2025 [facility] Start: 04-27-2025 [facility] Start: 04-27-2025 Bacteria identified in Urine by Culture Urine Culture [facility] Start: 04-27-2025 Emergency department visit low/moder severity EMERGENCY DEPT VISIT [facility] Start: 04-27-2025 Urine culture [facility] Start: 04-24-2025 End: 04-24-2026 Prostate specific Ag [Mass/volume] in Serum or Plasma PSA Lab Routine Prostate cancer (Multi) Expected: 04/24/2025 (Approximate), Expires: 04/24/2026 [facility] Service Area Work Phone: Comment on above: Expected: 04/24/2025 (Approximate), Expi res: 04/24/2026 Start: 04-06-2025 End: 04-06-2025 Clinical Support 04/06/2025 2:00 PM EDT Clinical Support [address] [id number] [facility] Start: 02-26-2025 End: 02-26-2025 Patient encounter procedure 02/26/2025 3:15 PM EDT Office Visit [address] [place] [address] Jian Mcdermott MD MPH [address] [place] [address] [facility] Start: 02-26-2025 End: 02-13-2026 Suprapubic Catheter Insertion Suprapubic Catheter Insertion Procedures Routine Urinary retention Expected: 02/26/2025 (Approximate), Expires: 02/13/2026 [facility] Service Area Work Phone: Comment on above: Expected: 02/26/2025 (Approximate), Expi res: 02/13/2026 Start: 01-03-2025 End: 01-03-2025 Clinical Support 01/03/2025 2:15 PM EST Clinical Support [address] [place] [address] [facility] Start: 12-16-2024 [facility] [facility] Start: 12-13-2024 End: 12-13-2024 Patient encounter procedure 12/13/2024 3:15 PM EST Procedure Visit [address] [place] [phone] [facility] Start: 12-06-2024 End: 12-06-2024 Clinical Support 12/06/2024 3:00 PM EST Clinical Support [address] [phone] [facility] Start: 07-25-2024 Subsequent hospital visit by physician 07/25/2024 Hospital Encounter [facility] [place] [address] [place] [phone] Asmita Zambrano MD [facility] [place] [address] [facility] [place] Start: 07-25-2024 End: 07-25-2024 Cystostomy cystotomy w/drainage Cystotomy Suprapubic Urinary retention 07/25/2024 10:54 AM EDT [facility] Start: 07-12-2024 End: 07-12-2024 Patient encounter procedure 07/12/2024 3:30 PM EDT Office Visit [address] [phone] Asmita Zambrano MD [facility] [place] [address] [facility] Start: 07-10-2024 End: 07-10-2024 Patient encounter procedure 07/10/2024 2:15 PM EDT Appointment [facility] [address] [place] [phone] [facility] Start: 07-02-2024 COVID-19 Vaccine () COVID-19 Vaccine () [facility] Start: 07-02-2024 COVID-19 Vaccine () COVID-19 Vaccine () [facility] Start: 07-02-2024 Influenza vaccination Influenza Vaccine (#1) [facility] Start: 06-28-2024 End: 06-28-2025 Creatinine [Mass/volume] in Serum or Plasma Creatinine, Serum Lab Routine Retention of urine Expected: 06/28/2024 (Approximate), Expires: 06/28/2025 [facility] Work Phone: Comment on above: Expected: 06/28/2024 (Approximate), Expi res: 06/28/2025 Start: 06-28-2024 End: 06-28-2025 CT Abdomen and Pelvis W contrast IV CT abdomen pelvis w IV contrast Imaging Routine Malignant neoplasm of prostate (Multi) Expected: 06/28/2024 (Approximate), Expires: 06/28/2025 [facility] Service [facility] Work Phone: Comment on above: Expected: 06/28/2024 (Approximate), Expi res: 06/28/2025 Start: 06-28-2024 End: 06-28-2024 Patient encounter procedure 06/28/2024 1:30 PM EDT Office Visit [address] [phone] Asmita Zambrano MD [address] [place] [phone] [facility] Start: 05-24-2024 End: 05-24-2024 Patient encounter procedure 05/24/2024 3:15 PM EDT Office Visit [address] [phone] Asmita Zambrano MD [address] [place] [phone] [facility] Start: 04-26-2024 End: 04-26-2025 Creatinine [Mass/volume] in Serum or Plasma Creatinine, Serum Lab Routine Nocturia Expected: 04/26/2024 (Approximate), Expires: 04/26/2025 [facility] Work Phone: Comment on above: Expected: 04/26/2024 (Approximate), Expi res: 04/26/2025 Start: 04-26-2024 End: 04-26-2025 CT Pelvis W contrast IV CT pelvis w IV contrast Imaging Routine Abnormal digital rectal exam Expected: 04/26/2024 (Approximate), Expires: 04/26/2025 [facility] Work Phone: Comment on above: Expected: 04/26/2024 (Approximate), Expi res: 04/26/2025 Start: 04-26-2024 End: 04-26-2025 Prostate specific Ag [Mass/volume] in Serum or Plasma Prostate Specific Antigen Lab Routine Nocturia Abnormal digital rectal exam Expected: 04/26/2024 (Approximate), Expires: 04/26/2025 [facility] Service Area Work Phone: Comment on above: Expected: 04/26/2024 (Approximate), Expi res: 04/26/2025 Start: 10-22-2023 Patient discharge [facility] Start: 10-22-2023 Removal of urinary catheter [facility] Start: 10-21-2023 [facility] Start: 10-20-2023 Following clinical pathway protocol [facility] Start: 10-20-2023 Application of intermittent pneumatic compression device [facility] Start: 10-20-2023 Anesthesia transurethral resection of prostate ANESTH REMOVAL OF PROSTATE [facility] Start: 10-20-2023 Trurl rescj residual/regrowth obstr prstate tiss REMOVE PROSTATE REGROWTH [facility] Start: 10-20-2023 Oxygen therapy [facility] Start: 10-20-2023 Admission procedure [facility] Start: 10-20-2023 Deep breathing and coughing exercises [facility] Start: 10-20-2023 Incentive spirometry [facility] Start: 10-20-2023 Irrigation of urinary bladder [facility] Start: 10-20-2023 Measuring intake and output [facility] Start: 10-20-2023 Patient education [facility] Start: 10-20-2023 Provision of activity privileges [facility] Start: 10-20-2023 Taking patient vital signs [facility] Start: 10-20-2023 Vital signs measurements [facility] Start: 10-20-2023 [facility] Start: 09-06-2023 Referral to service [facility] Start: 09-06-2023 Patient discharge [facility] Start: 09-04-2023 End: 09-04-2023 Following clinical pathway protocol [facility] Start: 09-04-2023 Assessment of risk of venous thromboembolism [facility] Start: 09-04-2023 Incentive spirometry [facility] Start: 09-04-2023 Inhalation therapy procedure [facility] Start: 09-04-2023 Insertion of catheter into peripheral vein [facility] Start: 09-04-2023 Measuring intake and output [facility] Start: 09-04-2023 Providing care according to standard [facility] Start: 09-04-2023 Provision of activity privileges [facility] Start: 09-04-2023 Referral to occupational therapist [facility] Start: 09-04-2023 Referral to service [facility] Start: 09-04-2023 [facility] Start: 09-04-2023 Verification routine [facility] Start: 09-04-2023 Admission procedure [facility] Start: 09-04-2023 Hospital admission, emergency, from emergency room, medical nature [facility] Start: 09-04-2023 End: 09-05-2023 [facility] Start: 09-04-2023 Bacteria identified in Urine by Culture Urine Culture [facility] Start: 09-04-2023 Urine culture Urine Culture [facility] Start: 09-04-2023 Patient referral to dietitian [facility] Start: 07-02-2023 COVID-19 Vaccine () COVID-19 Vaccine () [facility] Start: 01-06-2023 Enteric precautions [facility] Start: 10-21-2022 Ambulation without limitation [facility] Start: 10-21-2022 Medication education [facility] Start: 10-21-2022 Patient discharge [facility] Start: 10-21-2022 Taking patient vital signs [facility] Start: 10-21-2022 [facility] Start: 10-21-2022 Anes transurethral w/urethrocystoscopy nos ANESTH BLADDER SURGERY [facility] Start: 10-21-2022 Cystourethroscopy w/internal urethrotomy male CYSTOSCOPY AND TREATMENT [facility] Start: 07-02-2021 Influenza vaccination INFLUENZA (Season Ended) [facility] Start: 04-08-2021 Lipid panel Lipid Panel [facility] Start: 03-05-2019 DIABETES SCREEN DIABETES SCREEN [facility] Start: 12-29-2017 End: 12-29-2017 Appointment Appointment [facility] Work Phone: Start: 10-22-2017 End: 10-22-2017 Appointment Appointment [facility] Work Phone: Start: 10-09-2017 Creatinine measurement Creatinine Level [facility] Start: 10-09-2017 Potassium measurement Potassium Level [facility] Start: 09-27-2017 End: 09-28-2017 Follow Up Appt 3 months Follow Up Appt 3 months [facility] Work Phone: Start: 09-27-2017 End: 09-28-2017 Pacer Clinic [facility] Work Phone: Start: 09-27-2017 End: 09-27-2017 Patient encounter procedure Appointment [facility] Work Phone: Start: 09-27-2017 End: 10-13-2017 Follow Up Appt 3 months Follow Up Appt 3 months [facility] Work Phone: Start: 09-27-2017 End: 10-13-2017 Pacer Clinic [facility] Work Phone: Start: 06-28-2017 End: 06-28-2017 Patient encounter procedure Appointment [facility] Work Phone: Start: 06-28-2017 End: 06-28-2017 Follow Up Appt 3 months Follow Up Appt 3 months [facility] Work Phone: Start: 06-28-2017 End: 06-28-2017 Pacer Clinic Pacer Clinic [facility] Work Phone: Start: 06-28-2017 End: 10-13-2017 Follow [...] Phone: Start: 05-24-2017 End: 05-24-2017 PFM PFM [facility] Work Phone: Start: 05-24-2017 End: 05-24-2017 Patient encounter procedure Appointment [facility] Work Phone: Start: 05-24-2017 End: 05-24-2017 Follow Up Appt Other Follow Up Appt Other [facility] Work Phone: Start: 05-24-2017 End: 05-24-2017 MMM MMM [facility] Work Phone: Start: 05-24-2017 End: 05-24-2017 Nuclear stress test -Lexiscan Nuclear stress test -Lexiscan [facility] Work Phone: Start: 05-24-2017 End: 05-24-2017 PFM PFM [facility] Work Phone: Start: 04-12-2017 End: 04-12-2017 Follow Up Appt 6 months Follow Up Appt 6 months [facility] Work Phone: Start: 04-12-2017 End: 04-12-2017 Follow Up Appt Other Follow Up Appt Other [facility] Work Phone: Start: 04-12-2017 End: 04-12-2017 MMM MMM [facility] Work Phone: Start: 04-12-2017 End: 04-12-2017 Patient encounter procedure Appointment [facility] Work Phone: Start: 04-12-2017 End: 10-13-2017 Follow Up Appt 6 months Follow Up Appt 6 months [facility] Work Phone: Start: 04-12-2017 End: 10-13-2017 Follow Up Appt Other Follow Up Appt Other [facility] Work Phone: Start: 04-12-2017 End: 10-13-2017 MMM MMM [facility] Work Phone: Start: 03-22-2017 End: 03-23-2017 Follow Up Appt 3 months Follow Up Appt 3 months [facility] Work Phone: Start: 03-22-2017 End: 03-23-2017 Pacer Clinic Pacer Clinic [facility] Work Phone: Start: 03-22-2017 End: 10-13-2017 Follow Up Appt 3 months Follow Up Appt 3 months [facility] Work Phone: Start: 03-22-2017 End: 10-13-2017 Pacer Clinic Pacer Clinic [facility] Work Phone: Start: 12-17-2016 End: 12-17-2016 Follow Up Appt 3 months Follow Up Appt 3 months [facility] Work Phone: Start: 12-17-2016 End: 12-17-2016 Pacer Clinic Pacer Clinic [facility] Work Phone: Start: 12-17-2016 End: 10-13-2017 Follow Up Appt 3 months Follow Up Appt 3 months [facility] Work Phone: Start: 12-17-2016 End: 10-13-2017 Pacer Clinic Pacer Clinic [facility] Work Phone: Start: 10-09-2016 End: 10-12-2016 *BMP *BMP [facility] Work Phone: Start: 10-09-2016 End: 10-09-2016 *CBC with Differential *CBC with Differential [facility] Work Phone: Start: 10-09-2016 End: 10-09-2016 BNP *Brain Natriuretic Peptide BNP [facility] Work Phone: Start: 10-09-2016 End: 10-12-2016 Chest x-ray X-Ray, Chest, PA & Lateral [facility] Work Phone: Start: 10-09-2016 End: 10-09-2016 Follow Up Appt Other Follow Up Appt Other [facility] Work Phone: Start: 10-09-2016 End: 10-12-2016 Thyroid stimulating hormone (TSH) *TSH [facility] Work Phone: Start: 10-09-2016 End: 10-12-2016 Thyroxine (T4) *T4 (Total) [facility] Work Phone: Start: 10-09-2016 End: 10-12-2016 Basic metabolic 2000 panel - Serum or Plasma *BMP [facility] Work Phone: Start: 10-09-2016 End: 10-09-2016 CBC W Auto Differential panel - Blood *CBC with Differential [facility] Work Phone: Start: 10-09-2016 End: 10-12-2016 Chest x-ray X-Ray, Chest, PA & Lateral [facility] Work Phone: Start: 10-09-2016 End: 10-09-2016 Follow Up Appt Other Follow Up Appt Other [facility] Work Phone: Start: 10-09-2016 End: 10-09-2016 Natriuretic peptide B [Mass/volume] in Blood *Brain Natriuretic Peptide BNP [facility] Work Phone: Start: 10-09-2016 End: 10-12-2016 Thyrotropin [Units/volume] in Serum or Plasma *TSH [facility] Work Phone: Start: 10-09-2016 End: 10-12-2016 Thyroxine (T4) [Mass/volume] in Serum or Plasma *T4 (Total) [facility] Work Phone: Start: 09-08-2016 End: 09-30-2016 Follow Up Appt 3 months Follow Up Appt 3 months [facility] Work Phone: Start: 09-08-2016 End: 09-30-2016 Pacer Clinic Pacer Clinic [facility] Work Phone: Start: 09-08-2016 End: 09-30-2016 Follow Up Appt 3 months Follow Up Appt 3 months [facility] Work Phone: Start: 09-08-2016 End: 09-30-2016 Pacer Clinic Pacer Clinic [facility] Work Phone: Start: 04-24-2016 End: 09-30-2016 Follow Up Appt 3 months Follow Up Appt 3 months [facility] Work Phone: Start: 04-24-2016 End: 09-30-2016 Pacer Clinic Pacer Clinic [facility] Work Phone: Start: 04-24-2016 End: 09-30-2016 Follow Up Appt 3 months Follow Up Appt 3 months [facility] Work Phone: Start: 04-24-2016 End: 09-30-2016 Pacer Clinic Pacer Clinic [facility] Work Phone: Start: 04-09-2016 End: 04-09-2016 *BMP *BMP [facility] Work Phone: Start: 04-09-2016 End: 04-08-2016 *UA - Urinalysis w/o Micro *UA - Urinalysis w/o Micro [facility] Work Phone: Start: 04-09-2016 End: 04-08-2016 CBC W Auto Differential panel - Blood *CBC without Diff [facility] Work Phone: Start: 04-09-2016 End: 04-08-2016 INR Coag RelTime (PPP) *PT/INR [facility] Work Phone: Start: 04-09-2016 End: 04-08-2016 Pacemaker Generator Change Pacemaker Generator Change [facility] Work Phone: Start: 04-09-2016 End: 04-08-2016 *UA - Urinalysis w/o Micro *UA - Urinalysis w/o Micro [facility] Work Phone: Start: 04-09-2016 End: 04-09-2016 Basic metabolic 2000 panel - Serum or Plasma *BMP [facility] Work Phone: Start: 04-09-2016 End: 04-08-2016 CBC W Auto Differential panel - Blood *CBC without Diff [facility] Work Phone: Start: 04-09-2016 End: 04-08-2016 INR in Platelet poor plasma by Coagulation assay *PT/INR [facility] Work Phone: Start: 04-09-2016 End: 04-08-2016 Pacemaker Generator Change Pacemaker Generator Change [facility] Work Phone: Start: 04-08-2016 End: 04-08-2016 *Hepatic Function Panel *Hepatic Function Panel [facility] Work Phone: Start: 04-08-2016 End: 04-08-2016 Ecg routine ecg w/least 12 lds w/i&r EKG (In office) [facility] Work Phone: Start: 04-08-2016 End: 04-08-2016 Follow Up Appt 6 months Follow Up Appt 6 months [facility] Phone: Start: 04-08-2016 End: 04-08-2016 Lipid panel [AGGREGATE] *Lipid Profile CC PCP [facility] Work Phone: Start: 04-08-2016 End: 04-08-2016 MMM MMM [facility] Work Phone: Start: 04-08-2016 End: 04-08-2016 Ecg routine ecg w/least 12 lds w/i&r EKG (In office) [facility] Work Phone: Start: 04-08-2016 End: 04-08-2016 Follow Up Appt 6 months Follow Up Appt 6 months [facility] Work Phone: Start: 04-08-2016 End: 10-13-2017 Hepatic function 2000 panel - Serum or Plasma *Hepatic Function Panel [facility] Work Phone: Start: 04-08-2016 End: 10-13-2017 Lipid 1996 panel - Serum or Plasma *Lipid Profile CC PCP [facility] Work Phone: Start: 04-08-2016 End: 04-08-2016 MMM MMM [facility] Work Phone: Start: 03-30-2016 End: 09-30-2016 *Hepatic Function Panel *Hepatic Function Panel [facility] Work Phone: Start: 03-30-2016 End: 09-30-2016 Lipid panel [AGGREGATE] *Lipid Profile CC PCP [facility] Work Phone: Start: 03-30-2016 End: 09-30-2016 Hepatic function 2000 panel - Serum or Plasma *Hepatic Function Panel [facility] Work Phone: Start: 03-30-2016 End: 09-30-2016 Lipid 1996 panel - Serum or Plasma *Lipid Profile CC PCP [facility] Work Phone: Start: 03-19-2016 End: 04-08-2016 Chest x-ray X-Ray, Chest, PA & Lateral [facility] Work Phone: Start: 03-19-2016 End: 09-30-2016 Ecg routine ecg w/least 12 lds w/i&r EKG (In office) [facility] Work Phone: Start: 03-19-2016 End: 04-08-2016 Chest x-ray X-Ray, Chest, PA & Lateral [facility] Work Phone: Start: 03-19-2016 End: 09-30-2016 Ecg routine ecg w/least 12 lds w/i&r EKG (In office) [facility] Work Phone: Start: 02-28-2016 End: 09-30-2016 Follow Up Appt 1 month Follow Up Appt 1 month [facility] Work Phone: Start: 02-28-2016 End: 09-30-2016 Pacer Clinic Pacer Clinic [facility] Work Phone: Start: 02-28-2016 End: 09-30-2016 Follow Up Appt 1 month Follow Up Appt 1 month [facility] Work Phone: Start: 02-28-2016 End: 09-30-2016 Pacer Clinic Pacer Clinic [facility] Work Phone: Start: 01-17-2016 End: 09-30-2016 Follow Up Appt 1 month Follow Up Appt 1 month [facility] Work Phone: Start: 01-17-2016 End: 09-30-2016 Pacer Clinic Pacer Clinic [facility] Work Phone: Start: 01-17-2016 End: 09-30-2016 Follow Up Appt 1 month Follow Up Appt 1 month [facility] Work Phone: Start: 01-17-2016 End: 09-30-2016 Pacer Clinic Pacer Clinic [facility] Work Phone: Start: 11-15-2015 End: 09-30-2016 Follow Up Appt 3 months Follow Up Appt 3 months [facility] Work Phone: Start: 11-15-2015 End: 09-30-2016 Pacer Clinic Pacer Clinic [facility] Work Phone: Start: 11-15-2015 End: 09-30-2016 Follow Up Appt 3 months Follow Up Appt 3 months [facility] Work Phone: Start: 11-15-2015 End: 09-30-2016 Pacer Clinic Pacer Clinic [facility] Work Phone: Start: 10-02-2015 End: 09-30-2016 Follow Up Appt 1 month Follow Up Appt 1 month [facility] Work Phone: Start: 10-02-2015 End: 09-30-2016 Pacer Clinic Pacer Clinic [facility] Work Phone: Start: 10-02-2015 End: 09-30-2016 Follow Up Appt 1 month Follow Up Appt 1 month [facility] Work Phone: Start: 10-02-2015 End: 09-30-2016 Pacer Clinic [facility] Work Phone: Start: 09-09-2015 End: 09-30-2015 *BMP *BMP [facility] Work Phone: Start: 09-09-2015 End: 09-30-2015 *CBC with Differential *CBC with Differential [facility] Work Phone: Start: 09-09-2015 End: 09-30-2015 *Hepatic Function Panel *Hepatic Function Panel [facility] Work Phone: Start: 09-09-2015 End: 09-30-2015 BNP *Brain Natriuretic Peptide BNP [facility] Work Phone: Start: 09-09-2015 End: 10-09-2016 Chest x-ray X-Ray, Chest, PA & Lateral [facility] Work Phone: Start: 09-09-2015 End: 09-30-2016 Follow Up Appt 1 month Follow Up Appt 1 month [facility] Work Phone: Start: 09-09-2015 End: 09-09-2015 Follow Up Appt 6 months Follow Up Appt 6 months [facility] Work Phone: Start: 09-09-2015 End: 09-30-2015 Lipid panel [AGGREGATE] *Lipid Profile CC PCP [facility] Work Phone: Start: 09-09-2015 End: 09-30-2016 Pacer [facility] Work Phone: Start: 09-09-2015 End: 09-09-2015 PFM PFM [facility] Work Phone: Start: 09-09-2015 End: 09-30-2015 Basic metabolic 2000 panel - Serum or Plasma *BMP [facility] Work Phone: Start: 09-09-2015 End: 09-30-2015 CBC W Auto Differential panel - Blood *CBC with Differential [facility] Work Phone: Start: 09-09-2015 End: 10-09-2016 Chest x-ray X-Ray, Chest, PA & Lateral [facility] Work Phone: Start: 09-09-2015 End: 09-30-2016 Follow Up Appt 1 month Follow Up Appt 1 month [facility] Work Phone: Start: 09-09-2015 End: 09-09-2015 Follow Up Appt 6 months Follow Up Appt 6 months [facility] Work Phone: Start: 09-09-2015 End: 09-30-2015 Hepatic function 2000 panel - Serum or Plasma *Hepatic Function Panel [facility] Work Phone: Start: 09-09-2015 End: 09-30-2015 Lipid 1996 panel - Serum or Plasma *Lipid Profile CC PCP [facility] Work Phone: Start: 09-09-2015 End: 09-30-2015 Natriuretic peptide B [Mass/volume] in Blood *Brain Natriuretic Peptide BNP [facility] Work Phone: Start: 09-09-2015 End: 09-30-2016 Pacer Clinic Pacer Clinic [facility] Work Phone: Start: 09-09-2015 End: 09-09-2015 PFM PFM [facility] Work Phone: Start: 05-06-2015 End: 09-03-2015 Follow Up Appt 3 months Follow Up Appt 3 months [facility] Work Phone: Start: 05-06-2015 End: 09-03-2015 Pacer Clinic Pacer Clinic [facility] Work Phone: Start: 05-06-2015 End: 09-03-2015 Follow Up Appt 3 months Follow Up Appt 3 months [facility] Work Phone: Start: 05-06-2015 End: 09-03-2015 Pacer Clinic Pacer Clinic [facility] Work Phone: Start: 04-01-2015 End: 09-09-2015 *Hepatic Function Panel *Hepatic Function Panel [facility] Work Phone: Start: 04-01-2015 End: 09-09-2015 Lipid panel [AGGREGATE] *Lipid Profile CC PCP [facility] Work Phone: Start: 04-01-2015 End: 09-09-2015 Hepatic function 2000 panel - Serum or Plasma *Hepatic Function Panel [facility] Work Phone: Start: 04-01-2015 End: 09-09-2015 Lipid 1996 panel - Serum or Plasma *Lipid Profile CC PCP [facility] Work Phone: Start: 03-04-2015 End: 03-04-2015 Follow Up Appt 6 months Follow Up Appt 6 months [facility] Work Phone: Start: 03-04-2015 End: 03-04-2015 MMM MMM [facility] Work Phone: Start: 03-04-2015 End: 03-04-2015 Follow Up Appt 6 months Follow Up Appt 6 months [facility] Work Phone: Start: 03-04-2015 End: 03-04-2015 MMM MMM [facility] Work Phone: Start: 01-16-2015 End: 09-03-2015 Follow Up Appt 3 months Follow Up Appt 3 months [facility] Work Phone: Start: 01-16-2015 End: 09-03-2015 Pacer Clinic Pacer Clinic [facility] Work Phone: Start: 01-16-2015 End: 09-03-2015 Follow Up Appt 3 months Follow Up Appt 3 months [facility] Work Phone: Start: 01-16-2015 End: 09-03-2015 Pacer Clinic Pacer Clinic [facility] Work Phone: Start: 11-30-2014 End: 11-30-2014 Follow Up Appt Other Follow Up Appt Other [facility] Work Phone: Start: 11-30-2014 End: 11-30-2014 PFM PFM [facility] Work Phone: Start: 11-30-2014 End: 11-30-2014 Follow Up Appt Other Follow Up Appt Other [facility] Work Phone: Start: 11-30-2014 End: 11-30-2014 PFM PFM [facility] Work Phone: Start: 11-29-2014 End: 11-29-2014 *BMP *BMP [facility] Work Phone: Start: 11-29-2014 End: 11-29-2014 Basic metabolic 2000 panel - Serum or Plasma *BMP [facility] Work Phone: Start: 11-14-2014 End: 11-15-2014 *BMP *BMP [facility] Work Phone: Start: 11-14-2014 End: 11-15-2014 *CBC with Differential *CBC with Differential [facility] Work Phone: Start: 11-14-2014 End: 11-15-2014 BNP *Brain Natriuretic Peptide BNP [facility] Work Phone: Start: 11-14-2014 End: 11-15-2014 Chest x-ray X-Ray, Chest, PA & Lateral [facility] Work Phone: Start: 11-14-2014 End: 11-14-2014 Follow up Appt 3 weeks Follow up Appt 3 weeks [facility] Work Phone: Start: 11-14-2014 End: [...] 3 weeks Follow up Appt 3 weeks [facility] Work Phone: Start: 11-14-2014 End: 11-14-2014 MMM MMM [employer] Work Phone: Start: 11-14-2014 End: 11-15-2014 Natriuretic peptide B [Mass/volume] in Blood *Brain Natriuretic Peptide BNP [employer] Work Phone: Start: 10-16-2014 End: 11-14-2014 Follow Up Appt 3 months Follow Up Appt 3 months [employer] Work Phone: Start: 10-16-2014 End: 11-14-2014 Pacer Clinic Pacer Clinic [employer] Work Phone: Start: 10-16-2014 End: 11-14-2014 Follow Up Appt 3 months Follow Up Appt 3 months [employer] Work Phone: Start: 10-16-2014 End: 11-14-2014 Pacer Clinic Pacer Clinic [employer] Work Phone: Start: 09-03-2014 End: 10-01-2014 *Hepatic Function Panel *Hepatic Function Panel [employer] Work Phone: Start: 09-03-2014 End: 09-03-2014 Ecg routine ecg w/least 12 lds w/i&r EKG (In office) [employer] Work Phone: Start: 09-03-2014 End: 09-03-2014 Follow Up Appt Other Follow Up Appt Other [facility] Phone: Start: 09-03-2014 End: 10-01-2014 Lipid panel [AGGREGATE] *Lipid Profile CC PCP [employer] Work Phone: Start: 09-03-2014 End: 09-03-2014 PFM PFM [employer] Work Phone: Start: 09-03-2014 End: 09-03-2014 Ecg routine ecg w/least 12 lds w/i&r EKG (In office) [employer] Work Phone: Start: 09-03-2014 End: 09-03-2014 Follow Up Appt Other Follow Up Appt Other [employer] Work Phone: Start: 09-03-2014 End: 10-01-2014 Hepatic function 2000 panel - Serum or Plasma *Hepatic Function Panel [facility] Work Phone: Start: 09-03-2014 End: 10-01-2014 Lipid 1996 panel - Serum or Plasma *Lipid Profile CC PCP [facility] Work Phone: Start: 09-03-2014 End: 09-03-2014 PFM PFM [facility] Work Phone: Start: 07-03-2014 End: 08-23-2014 Follow Up Appt 3 months Follow Up Appt 3 months [facility] Work Phone: Start: 07-03-2014 End: 08-23-2014 Pacer Clinic Pacer Clinic [facility] Work Phone: Start: 07-03-2014 End: 08-23-2014 Follow Up Appt 3 months Follow Up Appt 3 months [facility] Work Phone: Start: 07-03-2014 End: 08-23-2014 Pacer Clinic Pacer Clinic [facility] Work Phone: Start: 04-04-2014 End: 07-03-2014 Follow Up Appt 3 months Follow Up Appt 3 months [facility] Work Phone: Start: 04-04-2014 End: 07-03-2014 Pacer Clinic Pacer Clinic [facility] Work Phone: Start: 04-04-2014 End: 07-03-2014 Follow Up Appt 3 months Follow Up Appt 3 months [facility] Work Phone: Start: 04-04-2014 End: 07-03-2014 Pacer Clinic Pacer Clinic [facility] Work Phone: Start: 03-02-2014 End: 10-01-2014 *Hepatic Function Panel *Hepatic Function Panel [facility] Work Phone: Start: 03-02-2014 End: 03-02-2014 Follow Up Appt 6 months Follow Up Appt 6 months [facility] Work Phone: Start: 03-02-2014 End: 10-01-2014 Lipid panel [AGGREGATE] *Lipid Profile CC PCP [facility] Work Phone: Start: 03-02-2014 End: 03-02-2014 MMM MMM [facility] Work Phone: Start: 03-02-2014 End: 03-02-2014 Follow Up Appt 6 months Follow Up Appt 6 months [facility] Work Phone: Start: 03-02-2014 End: 10-01-2014 Hepatic function 2000 panel - Serum or Plasma *Hepatic Function Panel [facility] Work Phone: Start: 03-02-2014 End: 10-01-2014 Lipid 1996 panel - Serum or Plasma *Lipid Profile CC PCP [facility] Work Phone: Start: 03-02-2014 End: 03-02-2014 MMM MM [facility] Work Phone: Start: 01-30-2014 End: 08-23-2014 *Hepatic Function Panel *Hepatic Function Panel [facility] Work Phone: Start: 01-30-2014 End: 08-23-2014 Lipid panel [AGGREGATE] *Lipid Profile CC PCP [facility] Work Phone: Start: 01-30-2014 End: 08-23-2014 Hepatic function 2000 panel - Serum or Plasma *Hepatic Function Panel [facility] Work Phone: Start: 01-30-2014 End: 08-23-2014 Lipid 1996 panel - Serum or Plasma *Lipid Profile CC PCP [facility] Work Phone: Start: 12-26-2013 End: 07-03-2014 Follow Up Appt 3 months Follow Up Appt 3 months [facility] Work Phone: Start: 12-26-2013 End: 07-03-2014 Pacer Clinic Pacer Clinic [facility] Work Phone: Start: 12-26-2013 End: 07-03-2014 Follow Up Appt 3 months Follow Up Appt 3 months [facility] Work Phone: Start: 12-26-2013 End: 07-03-2014 Pacer Clinic Pacer Clinic [facility] Work Phone: Start: 08-17-2013 End: 12-18-2013 Follow Up Appt 3 months Follow Up Appt 3 months [facility] Work Phone: Start: 08-17-2013 End: 12-18-2013 Pacer Clinic Pacer Clinic [facility] Work Phone: Start: 08-17-2013 End: 12-18-2013 Follow Up Appt 3 months Follow Up Appt 3 months [facility] Work Phone: Start: 08-17-2013 End: 12-18-2013 Pacer Clinic Pacer Clinic [facility] Work Phone: Start: 08-04-2013 End: 08-18-2013 *Hepatic Function Panel *Hepatic Function Panel [facility] Work Phone: Start: 08-04-2013 End: 08-04-2013 Device Interrogation Device Interrogation [facility] Work Phone: Start: 08-04-2013 End: 08-04-2013 Follow Up Appt 6 months Follow Up Appt 6 months [facility] Work Phone: Start: 08-04-2013 End: 08-18-2013 Lipid panel [AGGREGATE] *Lipid Profile CC PCP [facility] Work Phone: Start: 08-04-2013 End: 08-04-2013 PFM PFM [facility] Work Phone: Start: 08-04-2013 End: 08-04-2013 Device Interrogation Device Interrogation [facility] Work Phone: Start: 08-04-2013 End: 08-04-2013 Follow Up Appt 6 months Follow Up Appt 6 months [facility] Work Phone: Start: 08-04-2013 End: 08-18-2013 Hepatic function 2000 panel - Serum or Plasma *Hepatic Function Panel [facility] Work Phone: Start: 08-04-2013 End: 08-18-2013 Lipid 1996 panel - Serum or Plasma *Lipid Profile CC PCP [facility] Work Phone: Start: 08-04-2013 End: 08-04-2013 PFM PFM [facility] Work Phone: Start: 05-19-2013 End: 08-04-2013 Follow Up Appt 3 months Follow Up Appt 3 months [facility] Work Phone: Start: 05-19-2013 End: 08-04-2013 Pacer Clinic Pacer Clinic [facility] Work Phone: Start: 05-19-2013 End: 08-04-2013 Follow Up Appt 3 months Follow Up Appt 3 months [facility] Work Phone: Start: 05-19-2013 End: 08-04-2013 Pacer Clinic Pacer Clinic [facility] Work Phone: Start: 03-20-2013 End: 08-04-2013 Follow Up Appt 6 months Follow Up Appt 6 months [facility] Work Phone: Start: 03-20-2013 End: 03-20-2013 Follow Up Appt Other Follow Up Appt Other [facility] Work Phone: Start: 03-20-2013 End: 08-04-2013 PFM PFM [facility] Work Phone: Start: 03-20-2013 End: 08-04-2013 Follow Up Appt 6 months Follow Up Appt 6 months [facility] Work Phone: Start: 03-20-2013 End: 03-20-2013 Follow Up Appt Other Follow Up Appt Other [facility] Work Phone: Start: 03-20-2013 End: 08-04-2013 PFM PFM [facility] Work Phone: Start: 02-15-2013 End: 03-20-2013 Follow Up Appt 3 months Follow Up Appt 3 months [facility] Work Phone: Start: 02-15-2013 End: 03-20-2013 Pacer Clinic Pacer Clinic [facility] Work Phone: Start: 02-15-2013 End: 03-20-2013 Follow Up Appt 3 months Follow Up Appt 3 months [employer] Work Phone: Start: 02-15-2013 End: 03-20-2013 Pacer Clinic Pacer Clinic [facility] Work Phone: Start: 01-30-2013 End: 03-20-2013 *Hepatic Function Panel *Hepatic Function Panel [employer] Work Phone: Start: 01-30-2013 End: 03-20-2013 Lipid panel [AGGREGATE] *Lipid Profile [employer] Work Phone: Start: 01-30-2013 End: 03-20-2013 Thyroid stimulating hormone (TSH) *TSH [employer] Work Phone: Start: 01-30-2013 End: 08-17-2012 Thyroxine (T4) *T4 (Total) [employer] Work Phone: Start: 01-30-2013 End: 03-20-2013 Hepatic function 2000 panel - Serum or Plasma *Hepatic Function Panel [facility] Phone: Start: 01-30-2013 End: 03-20-2013 Lipid 1996 panel - Serum or Plasma *Lipid Profile [facility] Phone: Start: 01-30-2013 End: 03-20-2013 Thyrotropin [Units/volume] in Serum or Plasma *TSH [employer] Work Phone: Start: 01-30-2013 End: 08-17-2012 Thyroxine (T4) [Mass/volume] in Serum or Plasma *T4 (Total) [employer] Work Phone: Start: 10-01-2012 End: 03-20-2013 *Hepatic Function Panel *Hepatic Function Panel [facility] Phone: Start: 10-01-2012 End: 03-20-2013 Lipid panel [AGGREGATE] *Lipid Profile [employer] Work Phone: Start: 10-01-2012 End: 03-20-2013 Hepatic function 2000 panel - Serum or Plasma *Hepatic Function Panel [employer] Work Phone: Start: 10-01-2012 End: 03-20-2013 Lipid 1996 panel - Serum or Plasma *Lipid Profile [employer] Work Phone: Start: 08-10-2012 End: 08-17-2012 *BMP *BMP [employer] Work Phone: Start: 08-10-2012 End: 03-20-2013 *CBC with Differential *CBC with Differential [facility] Work Phone: Start: 08-10-2012 End: 08-10-2012 Ecg routine ecg w/least 12 lds w/i&r EKG (In office) [employer] Work Phone: Start: 08-10-2012 End: 08-10-2012 Follow Up Appt 6 months Follow Up Appt 6 months [employer] Work Phone: Start: 08-10-2012 End: 08-17-2012 Magnesium *Magnesium [employer] Work Phone: Start: 08-10-2012 End: 08-17-2012 Thyroid stimulating hormone (TSH) *TSH [employer] Work Phone: Start: 08-10-2012 End: 08-17-2012 Thyroxine (T4) *T4 (Total) [employer] Work Phone: Start: 08-10-2012 End: 08-17-2012 Basic metabolic 2000 panel - Serum or Plasma *BMP [facility] Work Phone: Start: 08-10-2012 End: 03-20-2013 CBC W Auto Differential panel - Blood *CBC with Differential [facility] Work Phone: Start: 08-10-2012 End: 08-10-2012 Ecg routine ecg w/least 12 lds w/i&r EKG (In office) [employer] Work Phone: Start: 08-10-2012 End: 08-10-2012 Follow Up Appt 6 months Follow Up Appt 6 months [employer] Work Phone: Start: 08-10-2012 End: 08-17-2012 Magnesium [Mass/volume] in Serum or Plasma *Magnesium [employer] Work Phone: Start: 08-10-2012 End: 08-17-2012 Thyrotropin [Units/volume] in Serum or Plasma *TSH [employer] Work Phone: Start: 08-10-2012 End: 08-17-2012 Thyroxine (T4) [Mass/volume] in Serum or Plasma *T4 (Total) [employer] Work Phone: Start: 05-02-2012 End: 05-02-2012 *Hepatic Function Panel *Hepatic Function Panel [facility] Phone: Start: 05-02-2012 End: 05-02-2012 Ecg routine ecg w/least 12 lds w/i&r EKG (In office) [employer] Work Phone: Start: 05-02-2012 End: 05-02-2012 Echocardiography Echocardiogram (complete) [facility] Phone: Start: 05-02-2012 End: 05-02-2012 Follow Up Appt 6 months Follow Up Appt 6 months [facility] Phone: Start: 05-02-2012 End: 05-02-2012 Lipid panel [AGGREGATE] *Lipid Profile [facility] Phone: Start: 05-02-2012 End: 05-02-2012 Nuclear stress test -adenosine Nuclear stress test -adenosine [employer] Work Phone: Start: 05-02-2012 End: 05-02-2012 Ecg routine ecg w/least 12 lds w/i&r EKG (In office) [employer] Work Phone: Start: 05-02-2012 End: 05-02-2012 Echocardiography Echocardiogram (complete) [facility] Phone: Start: 05-02-2012 End: 05-02-2012 Follow Up Appt 6 months Follow Up Appt 6 months [facility] Phone: Start: 05-02-2012 End: 05-02-2012 Hepatic function 2000 panel - Serum or Plasma *Hepatic Function Panel [facility] Work Phone: Start: 05-02-2012 End: 05-02-2012 Lipid 1996 panel - Serum or Plasma *Lipid Profile [facility] Work Phone: Start: 05-02-2012 End: 05-02-2012 Nuclear stress test -adenosine Nuclear stress test -adenosine [facility] [employer] [facility] Work Phone: Start: 01-06-2011 RSV High Risk: (Elderly (60+) or Population) (1 - 1-dose 75+ series) RSV High Risk: (Elderly (60+) or Population) (1 - 1-dose 75+ series) [facility] Start: 08-31-2009 Pneumococcal vaccination Pneumococcal Vaccine (2 of 2 - PCV) [facility] Start: 08-31-2009 Pneumococcal Vaccine: 65+ Years (2 of 2 - PCV) Pneumococcal Vaccine: 65+ Years (2 of 2 - PCV) [facility] Start: 01-06-2001 ADVANCE DIRECTIVE DISCUSSION ADVANCE DIRECTIVE DISCUSSION [facility] Start: 1996 RSV patients and/or patients aged 60+ years (1 - 1-dose 60+ series) RSV patients and/or patients aged 60+ years (1 - 1-dose 60+ series) [facility] Start: 01-06-1986 SHINGRIX VACCINE (1 of 2) SHINGRIX VACCINE (1 of 2) [facility] Start: 01-06-1986 Zoster Vaccines (1 of 2) Zoster Vaccines (1 of 2) [facility] Start: 01-06-1955 Urine microalbumin profile DTAP,TDAP,TD (1 - Tdap) [facility] Start: 01-06-1954 Diabetes mellitus screening Diabetes Screening [facility] Start: 1936 Annual wellness visit Welcome to Medicare Visit [facility] Start: 1936 Echocardiography Echocardiogram [facility] Start: 1936 Lipid panel Lipid Panel [facility] Start: 1936 Medicare Annual Wellness Visit Medicare Annual Wellness Visit (AWV) [facility] Basic metabolic 2008 panel with ionized calcium - Serum or Plasma [facility] End: 07-25-2024 Continuous Pulse oximetry, In Phase 1 Continuous Pulse oximetry, In Phase 1 Respiratory Care Routine Continuous until discontinued starting 07/25/2024 [facility] Work Phone: Comment on above: Continuous until discontinued starting 0 07/25/2024 End: 07-10-2024 CT Abdomen and Pelvis W contrast IV [facility] Work Phone: Comment on above: Once for 1 Occurrences starting 07/10/20 until 07/10/2024 Cystostomy cystotomy w/drainage Cystotomy Suprapubic Urinary retention Virtual [facility] Electrocardiographic procedure [facility] Microscopic urinalysis [facility] Organism count, micr oscopic method [facility] Patient Education [facility] [employer] Work Phone: Patient referral [facility] Work Phone: Surgical pathology study Surgica l Pathology Exam Pathology and Cytology Routine Elevated PSA 06/14/2024 12:45 PM EDT [facility] Work Phone: Urine culture [facility] Urine microscopy: ep ithelial cells [facility] Urine microscopy: red cells [facility] White blood cell count [facility] Immunizations Immunization Date Immunization Notes Care Provider Christofer thornton 09-05-2023 Influenza High-Dose Quadrivalent Dr. John Noel Work Phone: [facility] 09-05-2023 influenza virus vacc ine, unspecified formulation Asmita Zambrano MD Work Phone: [facility] Work Phone: 07-31-2020 influenza, injectabl e, quadrivalent, preservative free Dr. John Noel Work Phone: [facility] 07-31-2020 influenza, seasonal, injectable [facility] 07-31-2020 Fluad Quad (65yr up)(PF) 60 mcg (15 mcg x 4)/0.5mL IM syringe (flu vac [facility] Work Phone: 01-26-2020 tetanus toxoid, redu blanche diphtheria toxoid, and acellular pertussis vaccine, adsorbed [facility] 08-17-2018 Influenza virus vaccine [facility] 08-17-2018 Fluad 2018-19 65yr up(PF)45 mcg(15 mcgx3)/0.5 mL intramuscular syringe (flu vac [facility] Work Phone: 11-05-2015 tetanus and diphther ia toxoids, adsorbed, preservative free, for adult use (2 Lf of tetanus toxoid and 2 Lf of diphtheria toxoid) [facility] 08-31-2008 influenza virus vacc ine, unspecified formulation Marino Roque Work Phone: [facility] 08-31-2008 pneumococcal polysaccharide vaccine, 23 valent Marino Roque Work Phone: [facility] Payers Date Payer Category Payer Self-pay [id number] 2023 Medicare [employer] [facility] MEDICARE [id number] 2023-Present [address] [place] [address] [id number] 2023 Medicare (Managed Care) [facility] [id number] 2023 Medicare [id number] 2014 Unknown [id number] 1936 Unknown [id number] 2.16.840.1.893934.3.579.2.1 243 1936 Unknown [id number] 2.16.840.1.708286.3.579.2.1 243 1936 Unknown [id number] 2.16.840.1.845430.3.579.2.1 244 1936 Unknown [id number] 2.16.840.1.236699.3.579.2.1 244 1936 Unknown [id number] 2.16.840.1.884321.3.579.2.1 244 1936 Unknown [id number] 2.16.840.1.482893.3.579.2.1 244 1936 Unknown [id number] 2.16.840.1.066950.3.579.2.1 244 1936 Unknown [id number] 2.16.840.1.289451.3.579.2.1 244 1936 Unknown [id number] 2.16.840.1.244817.3.579.2.1 244 1936 Unknown [id number] 2.16.840.1.314628.3.579.2.1 244 1936 Unknown [id number] 2.16.840.1.853445.3.579.2.1 244 1936 Unknown [id number] 2.16.840.1.475698.3.579.2.1 244 1936 Unknown [id number] 2.16.840.1.776069.3.579.2.1 244 1936 Unknown [id number] 2.16.840.1.629943.3.579.2.1 244 1936 Unknown [id number] 2.16.840.1.745506.3.579.2.1 244 Unknown [id number] 2.16.840.1.030942.3.579.2.4 62 Unknown [id number] 2.16.840.1.133428.3.579.2.4 62 Unknown [id number] 2.16.840.1.856013.3.579.2.4 62 Unknown [id number] 2.16.840.1.765210.3.579.2.4 62 Unknown [id number] 2.16.840.1.931382.3.579.2.4 62 Unknown [id number] 2.16.840.1.984415.3.579.2.4 62 Unknown [id number] 2.16.840.1.395963.3.579.2.4 62 Unknown [id number] 2.16.840.1.089393.3.579.2.4 62 Unknown [id number] 2.16.840.1.648666.3.579.2.4 62 Unknown [id number] 2.16.840.1.814533.3.579.2.4 62 Unknown [id number] 2.16.840.1.813219.3.579.2.4 62 Unknown [id number] 2.16.840.1.541443.3.579.2.4 62 Unknown [id number] 2.16.840.1.607878.3.579.2.4 62 Unknown [id number] 2.16.840.1.339562.3.579.2.4 62 Unknown [id number] 2.16.840.1.364875.3.579.2.4 62 Unknown [id number] 2.16.840.1.427087.3.579.2.4 62 Unknown [id number] 2.16.840.1.557779.3.579.2.4 62 Unknown [id number] 2.16.840.1.408055.3.579.2.4 62 Unknown [id number] 2.16.840.1.011019.3.579.2.4 62 Unknown [id number] 2.16.840.1.280881.3.579.2.4 62 Unknown [id number] 2.16.840.1.319407.3.579.2.4 62 Unknown [id number] 2.16.840.1.608563.3.579.2.4 62 Unknown [id number] 2.16.840.1.686743.3.579.2.4 62 Social History Date Type Detail Facility Start: 06-12-2010 End: 05-25-2025 Tobacco smoking status NHIS Never smoker 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 Start: 1935 Sex Assigned At Not on file [facility] Start: 09-04-2021 End: 10-11-2023 Tobacco smoking status ARIS Unknown if ever smoked [facility] Start: 10-01-2019 None [facility] Start: 10-01-2019 With Family [facility] Start: 12-29-2018 Non-smoker [facility] Start: 1935 Sex Assigned At Male W [facility] Start: 04-26-2024 Tobacco use and exposure Smokeless tobacco non-user [facility] Work Phone: Start: 04-26-2024 End: 02-26-2025 History of Social function [facility] Work Phone: Start: 04-26-2024 End: 02-26-2025 Tobacco use panel [facility] Work Phone: Start: 04-16-2024 End: 04-09-2025 Exposure to SARS-CoV-2 (event) Not sure [facility] Start: 07-25-2024 End: 04-24-2025 Alcoholic beverage intake Ex-drinker (finding) [facility] Work Phone: Start: 02-09-2025 Sex Male (finding) [facility] Medical Equipment Procedure Code Equipment Code Equipment Original Text Equipment Identifier Dates [employer] (Contracted) - [id number] Start: 02-01-2014 Comment on above: Description: SENDY HOUSTONIona LASER Goals Date Patient Goal Desired Activity /State Functional Status Date Assessment Result Facility 05-28-2025 Functional status Chair;Bathroom Privileg e [facility] Work Phone: 04-29-2025 Functional status Ambulates [facility] Work Phone: 10-22-2023 Functional status Bedrest;Bathroom Privil ege [facility] Work Phone: 09-06-2023 Functional status Ambulates;Chair [facility] Work Phone: 09-05-2023 Functional status Ambulates [facility] Work Phone: Mental Status Date Assessment Result Facility 05-28-2025 Cognitive function Voice/Name [facility] Work Phone: 04-29-2025 Cognitive function Voice/Name [facility] Work Phone: 12-16-2024 Cognitive function Level Of Cons ciousness Awake;Alert;Appropriate [facility] Work Phone: 10-21-2023 Cognitive function Voice/Name [facility] Work Phone: 09-06-2023 Cognitive function Appropriate;Cooperativ e [facility] Work Phone: 10-21-2022 Cognitive function Voice/Name [facility] Work Phone: Clinical Notes 04-12-2017 to 05-28-2025 Note Date & Type Note Facility 05-28-2025 Discharge summary Note Date/Time May 28, 2025 2:23 pm [facility] Medical Records Department [address] [place] [address] Instructions for Home/Discharge Instructions 05/28/25 1420 MR#: [id number] Acct: [id number] Name: RAJAT GUZMÁN Rep #:[id number] : [id number] From: Natanael martinez MD PCP: Dr. John Noel DO Status:ADM IN Discharge Instructions DC O2, CPAP, BIPAP needs Home O2 Discharge instructions: No Dressing / Incision Discharge Activity: Return to Normal Activity Dressing / Incision Call your doctor if you observe: Fever of 101 or Higher, Shortness of breath, Dizziness, Fainting spells, Swelling in the ankles, Chest pain and Increased palpitations (irregular heartbeat) Follow Up Care Test Results: Test results from this visit will be discussed in further detail at your follow-up appointment, if applicable. Discharge Plan Admission Admit Date/Time: 05/25/25 20:02 Attending Provider: Natanael Nowak Primary Care Provider: John Noel Consulting Providers: Suraj Garg Discharge Orders/Prescriptions Prescriptions: New fosfomycin tromethamine 3 gram packet 1 packet PO QODAY Qty: 3 0RF Continued tamsulosin 0.4 mg capsule 0.4 mg PO QDAY aspirin [Adult Low Dose Aspirin] 81 mg tablet,delayed release (DR/EC) 81 mg PO DAILY nitroglycerin 0.4 mg tablet, sublingual 0.4 mg SUBLINGUAL Q5M PRN (Reason: Chest Pain) Qty: 25 3RF prednisone 5 mg tablet 2 mg PO QDAY carvedilol 6.25 mg tablet 6.25 mg PO BID Qty: 60 3RF Rx Instructions: must administer with a meal/food oxybutynin chloride 5 mg tablet 5 mg PO DAILY melatonin 10 mg tablet 20 mg PO QHS diphenhydramine-acetaminophen [Tylenol PM Extra Strength] 25-500 mg tablet 2 tab PO QHS prednisone 1 mg tablet 2 mg PO DAILY simvastatin 20 mg tablet 20 mg PO QHS Qty: 90 3RF Entresto 24-26 mg tablet 1 tab PO BID Qty: 60 11RF Discontinued cephalexin 500 mg capsule 500 mg PO Q6 Qty: 28 0RF Referrals / Follow Up: John Noel DO [Primary Care Provider] - Within 1 Week Disposition Disposition (needs filled in before D/C Order can be placed): Assisted Living 05/28/25 1423<Electronically signed by Natanael Nowak MD>Natanael Nowak MD CC: Dr. Suraj Garg DO; Dr. John Noel DO ~ Signed [facility] Work Phone: 1(538) 791-598907-28-2025 Discharge summary [facility] System Medical Records Department [address] [place] [address] Discharge Summary 05/28/25 1553 MR#: [id number] Acct: [id number] Name: RAJAT GUZMÁN Rep #:[id number] : 1935 89 From: Natanael martinez MD PCP: Dr. John Noel DO Status:ADM IN [place] [id number] Providers Date of Admission: 05/25/25 Primary Care Physician: Dr. John Noel DO Reason For Visit: UTI Diagnosis Discharge Diagnosis (1) Catheter-associated urinary tract infection: Status: Acute Code(s): T83.511A - Infection and inflammatory reaction due to indwelling urethral catheter, initial encounter; N39.0 - Urinary tract infection, site not specified (2) Debility: Status: Acute Code(s): R53.81 - Other malaise (3) Protein calorie malnutrition: Status: Acute Code(s): E46 - Unspecified protein-calorie malnutrition Medications at Discharge Home Medications aspirin 81 mg tablet,delayed release (Adult Low Dose Aspirin) 81 mg PO DAILY 05/23/24 nitroglycerin 0.4 mg sublingual tablet 0.4 mg sublingual Q5M PRN Chest Pain #25 tabs 05/23/24 tamsulosin 0.4 mg capsule 0.4 mg PO QDAY 05/23/24 simvastatin 20 mg tablet 20 mg PO QHS for cholesterol #90 TABLETS 08/23/24 carvedilol 6.25 mg tablet 6.25 mg PO BID #60 tabs 11/10/24 prednisone 5 mg tablet 2 mg PO QDAY 11/10/24 sacubitril 24 mg-valsartan 26 mg tablet (Entresto) 1 tab PO BID #60 tabs 03/14/25 diphenhydramine 25 mg-acetaminophen 500 mg tablet (Tylenol PM Extra Strength) 2 tab PO QHS 04/28/25 melatonin 10 mg tablet 20 mg PO QHS sleep 04/28/25 oxybutynin chloride 5 mg tablet 5 mg PO DAILY 04/28/25 prednisone 1 mg tablet 2 mg PO DAILY 05/25/25 fosfomycin tromethamine 3 gram oral packet 1 packet PO QODAY 3 doses #3 ea 05/28/25 Hospital Course Operations None Procedures None Summary of Care Provided Minutes Spent on Discharge: 35 Hospital Course: Per HPI: RAJAT GUZMÁN, is a 89 M who presents due to abnormal urine culture. Patient was admitted[facility] [place] from the with a UTI. He left AGAINST MEDICAL ADVICE before the culture resultswere available. Patient was discharged with cephalexin. Urine culture came back positive for non-ESBL E. coli, Pseudomonas and Enterococcus. The Enterococcus was low CFU's of 1000 and 10,000. He had an outpatient urine culture through [facility] that grew out ESBL E. coli sensitive only toimipenem, meropenem, piperacillin/tazobactam and Bactrim. Patient was notified of this and instructed to come to the emergency room. In emergency room, patient did receive pip-tazo based on the priorculture results. Patient does since going home has not very well and he is just getting weaker, potential going days without eating. Is also been having some loose stools. Patient was seen with his daughter at bedside. Hospital Course: 1. Catheter associated UTI with ESBL E. coli/debility?89-year-old male had beenpreviously managed in the hospital from the and 29 April with a UTI, at thattime he left AGAINST MEDICAL ADVICE and he had cultures with multiple different organisms growing in including Pseudomonas, Enterococcus, and a nonactive ESBL E. coli. He continued to have symptomatic issues during the early period of May and he went to [facility] where he had a urine culture which grew an ESBL E. coli and presented to this hospital for treatment. He was started onZosyn as it was sensitive per report and he has been doing well. He was evaluated by physical therapy and Occupational Therapy who felt that he cou ld goback to the assisted living. Given the success rate with fosfomycin I will discharge him on p.o. fosfomycin to complete course for his UTI. 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 I discussed with him the plan for discharge and he expressed understanding of the risk and benefits of going home and would like to go home today. He doeshave protein calorie malnutrition and I discussed with him the need to eat he says that he struggles because he does not have much of an appetite, we did discuss strategies including having multiple small meals throughout the day. 2. Coronary artery disease status post stent, chronic systolic CHF, essential hypertension, hyperlipidemia, BPH with obstruction are chronic medical conditions which complicate his care. His home medications were continued whereappropriate Physical Exam Narrative General: Alert, Oriented x3, [...] to Palpation of Joints or Extremities Neurological: No focal neurological deficits, moves all extremities, sensation intact Psych/Mental Status: Normal Affect, Appropriate Medical Records Data Medical Nutrition Assessment Dietitian: Malnutrition Criteria Met Start: 05/26/25 15:07 Freq: Status: Active Protocol: Document 05/26/25 15:08 [facility] (Rec: 05/26/25 15:08 [facility] [id number]) Nutrition Malnutrition Evidence of Yes Malnutrition Exists Malnutrition (severe Chronic ): Evidenced By Suboptimal Energy Intake (Severe),Weight Loss (Severe), Physical Changes (Moderate),Physical Changes (Severe) Clinical Problem Chronic Disease or Condition Related Malnutrition Etiology related to physiological changes decreasing appetite and oral intakes Signs/Symptoms as evidenced by significant weight loss of 10% of his body weight, or 12lb, since 04/27/25 weight of [id number]. 376oz as well as estimated oral intakes meeting less than 50% of estimated nutrient needs for > 1 month and visual evidence of moderate to severe muscle and fat wasting (buccal, occular, clavicles). Status Active Problem Recommendation Dietitian Continue with Regular - General diet for liberalization Recommendations/ . Changes Will trial Magic Cup with meals. Provided encouragement to request snacks in between meals to help increase oral intakes. High Calorie, High Protein Nutrition Therapy reviewed and provided. Will continue to follow, monitor oral intakes and modify nutrition interventions as needed. Weight / BMI Weight Weight: 107 lb 12.897 oz Body Mass Index (BMI) 19.7 ABG / Lab / Microbiology Data 05/28/25 06:14 05/28/25 06:14 Laboratory: Laboratory Results - last 24 hr 05/28/25 06:14: WBC 4.9, RBC 3.54 L, Hgb 10.5 L, Hct 31.5 L, MCV 89.0, MCH 29.7,MCHC 33.3, RDW Std Deviation 45.0 H, RDW Coeff of Arleen 13.7, Plt Count 189, MPV 10.5, Immature Gran % (Auto) 0.200, Neut% (Auto) 51.8, Lymph % (Auto) 34.2, Sibley % (Auto) 10.5 H, Eos % (Auto) 2.9, Baso % (Auto) 0.4, Absolute Neuts (auto) 2.5, Absolute Lymphs (auto) 1.66, Nucleated RBC % 0, Sodium 140, Potassium 3.6, Chloride 107, Carbon Dioxide 22.5, Anion Gap 10, BUN 16, Creatinine 0.70, Estim Creat Clear Calc 43.30L, Est GFR (MDRD) Non-Af 88, BUN/Creatinine Ratio 22.9 H,Glucose 100 H, Calcium 8.6 Microbiology: Microbiology 05/26/25 04:45 Urine Catheter - Rod Urine Culture - Final GNR lactose hydrate control tender 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 05/25/25 17:00 Blood Culture (Wb) - Right Forearm Blood Culture - Preliminary No growth in 48 hours. D/C Instructions Call your doctor if you observe: Fever of 101 or Higher, Shortness of breath, Dizziness, Fainting spells, Swelling in the ankles, Chest pain and Increased palpitations (irregular heartbeat) DC O2, CPAP, BIPAP Needs Home O2 Discharge instructions: No Meaningful Use Info Meaningful Use Meaningful Use Diagnoses (Choose all that apply): None applicable Discharge Plan Admission Admit Date/Time: 05/25/25 20:02 Attending Provider: Natanael Nowak Primary Care Provider: John Noel Consulting Providers: Suraj Garg Discharge Orders/Prescriptions Prescriptions: New fosfomycin tromethamine 3 gram packet 1 packet PO QODAY Qty: 3 0RF Continued tamsulosin 0.4 mg capsule 0.4 mg PO QDAY aspirin [Adult Low Dose Aspirin] 81 mg tablet,delayed release (DR/EC) 81 mg PO DAILY nitroglycerin 0.4 mg tablet, sublingual 0.4 mg SUBLINGUAL Q5M PRN (Reason: Chest Pain) Qty: 25 3RF prednisone 5 mg tablet 2 mg PO QDAY carvedilol 6.25 mg tablet 6.25 mg PO BID Qty: 60 3RF Rx Instructions: must administer with a meal/food oxybutynin chloride 5 mg tablet 5 mg PO DAILY melatonin 10 mg tablet 20 mg PO QHS diphenhydramine-acetaminophen [Tylenol PM Extra Strength] 25-500 mg tablet 2 tab PO QHS prednisone 1 mg tablet 2 mg PO DAILY simvastatin 20 mg tablet 20 mg PO QHS Qty: 90 3RF Entresto 24-26 mg tablet 1 tab PO BID Qty: 60 11RF Discontinued cephalexin 500 mg capsule 500 mg PO Q6 Qty: 28 0RF Referrals / Follow Up: John Noel DO [Primary Care Provider] - Within 1 Week Disposition Disposition (needs filled in before D/C Order can be placed): Assisted Living Charges/Coding Visit Charges Inpatient E&M: 61299 Disch Hosp >30min 05/28/25 1557 Cosigner Signature (if applicable): CC: Dr. John Noel DO; Dr. Natanael Nowak MD~ Signed [facility]07-28-2025 [facility] System Medical Records Department [address] [place] [id number] Discharge Summary 05/28/25 1553 MR#: [id number] Acct: [id number] Name: RAJAT GUZMÁN Stacia Rep #: [id number] : 1935 89 From: Natanael Nowak MD PCP: Dr. John Noel DO Status:ADM IN Location: [place] [address] Providers Date of Admission: 05/25/25 Primary Care Physician: Dr. John Noel DO Reason For Visit: UTI Diagnosis Discharge Diagnosis (1) Catheter-associated urinary tract infection: Status: Acute Code(s): T83.511A - Infection and inflammatory reaction due to indwelling urethral catheter, initial encounter; N39.0 - Urinary tract infection, site not specified (2) Debility: Status: Acute Code(s): R53.81 - Other malaise (3) Protein calorie malnutrition: Status: Acute Code(s): E46 - Unspecified protein-calorie malnutrition Medications at Discharge Home Medications aspirin 81 mg tablet,delayed release (Adult Low Dose Aspirin) 81 mg PO DAILY 05/23/24 nitroglycerin 0.4 mg sublingual tablet 0.4 mg sublingual Q5M PRN Chest Pain #25 tabs 05/23/24 tamsulosin 0.4 mg capsule 0.4 mg PO QDAY 05/23/24 simvastatin 20 mg tablet 20 mg PO QHS for cholesterol #90 TABLETS 08/23/24 carvedilol 6.25 mg tablet 6.25 mg PO BID #60 tabs 11/10/24 prednisone 5 mg tablet 2 mg PO QDAY 11/10/24 sacubitril 24 mg-valsartan 26 mg tablet (Entresto) 1 tab PO BID #60 tabs 03/14/25 diphenhydramine 25 mg-acetaminophen 500 mg tablet (Tylenol PM Extra Strength) 2 tab PO QHS 04/28/25 melatonin 10 mg tablet 20 mg PO QHS sleep 04/28/25 oxybutynin chloride 5 mg tablet 5 mg PO DAILY 04/28/25 prednisone 1 mg tablet 2 mg PO DAILY 05/25/25 fosfomycin tromethamine 3 gram oral packet 1 packet PO QODAY 3 doses #3 ea 05/28/25 Hospital Course Operations None Procedures None Summary of Care Provided Minutes Spent on Discharge: 35 Hospital Course: Per HPI: RAJAT GUZMÁN, is a 89 M who presents due to abnormal urine culture. Patient was admitted at [place] from the with a UTI. He left AGAINST MEDICAL ADVICE before the culture results were available. Patient was discharged with cephalexin. Urine culture came back positive for non- ESBL E. coli, Pseudomonas and Enterococcus. The Enterococcus was low CFU's of 1000 and 10,000. He had an outpatient urine culture through [facility] that grew out ESBL E. coli sensitive only to imipenem, meropenem, piperacillin/tazobactam and Bactrim. Patient was notified of this and instructed to come to the emergency room. In emergency room, patient did receive pip-tazo based on the prior culture results. Patient does since going home has not very well and he is just getting weaker, potential going days without eating. Is also been having some loose stools. Patient was seen with his daughter at bedside. Hospital Course: 1. Catheter associated UTI with ESBL E. coli/debility???89-year-old male had been previously managed in the hospital from the and 29 April with a UTI, at that time he left AGAINST MEDICAL ADVICE and he had cultures with multiple different organisms growing in including Pseudomonas, Enterococcus, and a nonactive ESBL E. coli. He continued to have symptomatic issues during the early period of May and he went to [facility] where he had a urine culture which grew an ESBL E. coli and presented to this hospital for treatment. He was started on Zosyn as it was sensitive per report and he has been doing well. He was evaluated by physical therapy and Occupational Therapy who felt that he could go back to the assisted living. Given the success rate with fosfomycin I will discharge him on p.o. fosfomycin to complete course for his UTI. 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 I discussed with him the plan for discharge and he expressed understanding of the risk and benefits of going home and would like to go home today. He does have protein calorie malnutrition and I discussed with him the need to eat he says that he struggles because he does not have much of an appetite, we did discuss strategies including having multiple small meals throughout the day. 2. Coronary artery disease status post stent, chronic systolic CHF, essential hypertension, hyperlipidemia, BPH with obstruction are chronic medical conditions which complicate his care. His home medications were continued where appropriate Physical Exam Narrative General: Alert, Oriented x3, Cooperative, No apparent distress HEENT: Atraumatic, PERRLA, EOMI, Normocephalic Oral: Moist Mucosa Neck: Supple, No JVD Lungs: Diminished, Normal air movement, No rhonchi, No wheeze, No rales Cardiovascular: Regular rate, Regular Rhythm, Normal S1, Normal S2, No murmurs Abdomen: Soft, Non Tender, Non-Diste (more content not included)...[facility]07-28-2025 Discharge summary [facility] System Medical Records Department [address] [place] [address] Instructions for Home/Discharge Instructions 05/28/25 1420 MR#: [id number] Acct: [id number] Name: RAJAT GUZMÁN Rep #:[id number] : 1935 89 From: Natanael martinez MD PCP: Dr. John Noel, DO Status:ADM IN Discharge Instructions DC O2, CPAP, BIPAP needs Home O2 Discharge instructions: No Dressing / Incision Discharge Activity: Return to Normal Activity Dressing / Incision Call your doctor if you observe: Fever of 101 or Higher, Shortness of breath, Dizziness, Fainting spells, Swelling in the ankles, Chest pain and Increased palpitations (irregular heartbeat) Follow Up Care Test Results: Test results from this visit will be discussed in further detail at your follow- up appointment, if applicable. Discharge Plan Admission Admit Date/Time: 05/25/25 20:02 Attending Provider: Natanael Nowak Primary Care Provider: John Noel Consulting Providers: Suraj Garg Discharge Orders/Prescriptions Prescriptions: New fosfomycin tromethamine 3 gram packet 1 packet PO QODAY Qty: 3 0RF Continued tamsulosin 0.4 mg capsule 0.4 mg PO QDAY aspirin [Adult Low Dose Aspirin] 81 mg tablet,delayed release (DR/EC) 81 mg PO DAILY nitroglycerin 0.4 mg tablet, sublingual 0.4 mg SUBLINGUAL Q5M PRN (Reason: Chest Pain) Qty: 25 3RF prednisone 5 mg tablet 2 mg PO QDAY carvedilol 6.25 mg tablet 6.25 mg PO BID Qty: 60 3RF Rx Instructions: must administer with a meal/food oxybutynin chloride 5 mg tablet 5 mg PO DAILY melatonin 10 mg tablet 20 mg PO QHS diphenhydramine-acetaminophen [Tylenol PM Extra Strength] 25-500 mg tablet 2 tab PO QHS prednisone 1 mg tablet 2 mg PO DAILY simvastatin 20 mg tablet 20 mg PO QHS Qty: 90 3RF Entresto 24-26 mg tablet 1 tab PO BID Qty: 60 11RF Discontinued cephalexin 500 mg capsule 500 mg PO Q6 Qty: 28 0RF Referrals / Follow Up: John Noel DO [Primary Care Provider] - Within 1 Week Disposition Disposition (needs filled in before D/C Order can be placed): Assisted Living 05/28/25 1423Natanael Nowak MD CC: Dr. Suraj Garg DO; Dr. John Noel DO ~ Signed [facility]07-28-2025 Progress note Author Natanael Nowak [facility] Note Date/Time May 28, 2025 8:21 am [facility] System Medical Records Department [address] [place] [address] Progress Note - Hospitalist 05/28/25809 MR#: [id number] Acct: [id number] Name: RAJAT GUZMÁN Rep #:[id number] : 1935 89 From: Natanael martinez MD PCP: Dr. John Noel DO Status:ADM IN Location: [place] [address] Subjective Subjective Doing well, no issues overnight. Urine culture still pending Objective Data Objective Data Vital Signs: Vital Signs Temp Pulse Resp BP Pulse Ox O2 Del Method 97.6 F L 68 16 127/63 H 98 Room Air 05/28/25 05:33 05/28/25 05:33 05/28/25 05:33 05/28/25 05:33 05/28/25 05:33 05/28/25 05:33 Oxygen Delivery Method Room Air Weight: 107 lb 12.897 oz Body Mass Index (BMI) 19.7 Intake & Output: Intake and Output for Last 24 Hours 05/27/25 05/28/25 05/29/25 03:59 03:59 03:59 Intake Total 2100 / 2100 882 / 882 Output Total 900 / 900 1000 / 1000 225 / 225 Balance 1200 / 1200 -118 / -118 -225 / -225 Medical Nutrition Assessment Dietitian: Malnutrition Criteria Met Start: 05/26/25 15:07 Freq: Status: Active Protocol: Document 05/26/25 15:08 [facility] (Rec: 05/26/25 15:08 [facility] [id number]) Nutrition Malnutrition Evidence of Yes Malnutrition Exists Malnutrition (severe Chronic ): Evidenced By Suboptimal Energy Intake (Severe),Weight Loss (Severe), Physical Changes (Moderate),Physical Changes (Severe) Clinical Problem Chronic Disease or Condition Related Malnutrition Etiology related to physiological changes decreasing appetite and oral intakes Signs/Symptoms as evidenced by significant weight loss of 10% of his body weight, or 12lb, since 04/27/25 weight of [id number]. 376oz as well as estimated oral intakes meeting less than 50% of estimated nutrient needs for > 1 month and visual evidence of moderate to severe muscle and fat wasting (buccal, occular, clavicles). Status Active Problem Recommendation Dietitian Continue with Regular - General diet for liberalization Recommendations/ . Changes Will trial Magic Cup with meals. Provided encouragement to request snacks in between meals to help increase oral intakes. High Calorie, High Protein Nutrition Therapy reviewed and provided. Will continue to follow, monitor oral intakes and modify nutrition interventions as needed. Lab / Micro Data 05/28/25 06:14 05/28/25 06:14 Labs: Laboratory Results - last 24 hr 05/28/25 06:14: WBC 4.9, RBC 3.54 L, Hgb 10.5 L, Hct 31.5 L, MCV 89.0, MCH 29.7,MCHC 33.3, RDW Std Deviation 45.0 H, RDW Coeff of Arleen 13.7, Plt Count 189, MPV 10.5, Immature Gran % (Auto) 0.200, Neut % (Auto) 51.8, Lymph % (Auto) 34.2, Sibley % (Auto) 10.5 H, Eos % (Auto) 2.9, Baso % (Auto) 0.4, Absolute Neuts (auto) 2.5, Absolute Lymphs (auto) 1.66, Nucleated RBC % 0, Sodium 140, Potassium 3.6, Chloride 107, Carbon Dioxide 22.5, Anion Gap 10, BUN 16, Creatinine 0.70, Estim Creat Clear Calc 43.30 L, Est GFR (MDRD) Non-Af 88, BUN/Creatinine Ratio 22.9 H,Glucose 100 H, Calcium 8.6 Micro: Microbiology 05/25/25 17:25 Blood Culture (Wb) - Right Forearm Blood Culture - Preliminary No growth in 48 hours. 05/25/25 17:00 Blood Culture (Wb) - Right Forearm Blood Culture - Preliminary No growth in 48 hours. Rhythm Strip Rhythm Strip: Sinus Rhythm Rate: 70 Ectopy: None Physical Exam Narrative General: Alert, Oriented x3, [...] to Palpation of Joints or Extremities Neurological: No focal neurological deficits, moves all extremities, sensation intact Psych/Mental Status: Normal Affect, Appropriate Assessment & Plan Assessment/Plan (1) Catheter-associated urinary tract infection: (2) Debility: (3) Protein calorie malnutrition: PLAN: Plan 1. Catheter associated UTI with possible ESBL E. coli/debility ? Cultures from 05/21/2025 in outside hospital demonstrated ESBL E. coli ? He was started on Zosyn but no culture was obtained in the ER prior to initiation of antibiotics ? PT/OT for debility, he is at an assisted living that is attached to his SNF. If he is able to go back to the assisted living then he could be treated with fosfomycin otherwise we will maintain here on IV antibiotics pending transfer 2. CAD status post stent/chronic systolic CHF/essential HTN/HLD That she had an echo in 2020 with an EF of 25% and RVSP of 29 mmHg ? Continue with his home blood pressure medications ? Continue with his home aspirin ? Continue with his home cholesterol medications ? Will monitor and make adjustments as necessary 3. BPH with obstruction ? Rod is in place ? Continue with Flomax ? Rod was changed in the ER on this admission DVT: Lovenox Charges/Coding Visit Charges Inpatient E&M: 41247 Subs Hosp L1 05/28/25 0821 <Electronically signed by Natanael Nowak MD> Cosigner Signature (if applicable): CC: ~ Signed [facility] Work Phone: 1(734) 643-630307-28-2025 Progress note [facility] System Medical Records Department [address] [place] [address] Progress Note - Hospitalist 05/28/25 0810 MR#: [id number] Acct: [id number] Name: RAJAT GUZMÁN Rep #:[id number] : 1935 89 From: Natanael martinez MD PCP: Dr. John Noel, DO Status:ADM IN Location: [place] [address] Subjective Subjective Doing well, no issues overnight. Urine culture still pending Objective Data Objective Data Vital Signs: Vital Signs Temp Pulse Resp BP Pulse Ox O2 Del Method 97.6 F L 68 16 127/63 H 98 Room Air 05/28/25 05:33 05/28/25 05:33 05/28/25 05:33 05/28/25 05:33 05/28/25 05:33 05/28/25 05:33 Oxygen Delivery Method Room Air Weight: 107 lb 12.897 oz Body Mass Index (BMI) 19.7 Intake & Output: Intake and Output for Last 24 Hours 05/27/25 05/28/25 05/29/25 03:59 03:59 03:59 Intake Total 2100 / 2100 882 / 882 Output Total 900 / 900 1000 / 1000 225 / 225 Balance 1200 / 1200 -118 / -118 -225 / -225 Medical Nutrition Assessment Dietitian: Malnutrition Criteria Met Start: 05/26/25 15:07 Freq: Status: Active Protocol: Document 05/26/25 15:08 [facility] (Rec: 05/26/25 15:08 [facility] [id number]) Nutrition Malnutrition Evidence of Yes Malnutrition Exists Malnutrition (severe Chronic ): Evidenced By Suboptimal Energy Intake (Severe),Weight Loss (Severe), Physical Changes (Moderate),Physical Changes (Severe) Clinical Problem Chronic Disease or Condition Related Malnutrition Etiology related to physiological changes decreasing appetite and oral intakes Signs/Symptoms as evidenced by significant weight loss of 10% of his body weight, or 12lb, since 04/27/25 weight of [id number]. 376oz as well as estimated oral intakes meeting less than 50% of estimated nutrient needs for > 1 month and visual evidence of moderate to severe muscle and fat wasting (buccal, occular, clavicles). Status Active Problem Recommendation Dietitian Continue with Regular - General diet for liberalization Recommendations/ . Changes Will trial Magic Cup with meals. Provided encouragement to request snacks in between meals to help increase oral intakes. High Calorie, High Protein Nutrition Therapy reviewed and provided. Will continue to follow, monitor oral intakes and modify nutrition interventions as needed. Lab / Micro Data 05/28/25 06:14 05/28/25 06:14 Labs: Laboratory Results - last 24 hr 05/28/25 06:14: WBC 4.9, RBC 3.54 L, Hgb 10.5 L, Hct 31.5 L, MCV 89.0, MCH 29.7,MCHC 33.3, RDW Std Deviation 45.0 H, RDW Coeff of Arleen 13.7, Plt Count 189, MPV 10.5, Immature Gran % (Auto) 0.200, Neut% (Auto) 51.8, Lymph % (Auto) 34.2, Sibley % (Auto) 10.5 H, Eos % (Auto) 2.9, Baso % (Auto) 0.4, Absolute Neuts (auto) 2.5, Absolute Lymphs (auto) 1.66, Nucleated RBC % 0, Sodium 140, Potassium 3.6, Chloride 107, Carbon Dioxide 22.5, Anion Gap 10, BUN 16, Creatinine 0.70, Estim Creat Clear Calc 43.30L, Est GFR (MDRD) Non-Af 88, BUN/Creatinine Ratio 22.9 H,Glucose 100 H, Calcium 8.6 Micro: Microbiology 05/25/25 17:25 Blood Culture (Wb) - Right Forearm Blood Culture - Preliminary No growth in 48 hours. 05/25/25 17:00 Blood Culture (Wb) - Right Forearm Blood Culture - Preliminary No growth in 48 hours. Rhythm Strip Rhythm Strip: Sinus Rhythm Rate: 70 Ectopy: None Physical Exam Narrative General: Alert, Oriented x3, [...] to Palpation of Joints or Extremities Neurological: No focal neurological deficits, moves all extremities, sensation intact Psych/Mental Status: Normal Affect, Appropriate Assessment & Plan Assessment/Plan (1) Catheter-associated urinary tract infection: (2) Debility: (3) Protein calorie malnutrition: PLAN: Plan 1. Catheter associated UTI with possible ESBL E. coli/debility ? Cultures from 05/21/2025 in outside hospital demonstrated ESBL E. coli ? He was started on Zosyn but no culture was obtained in the ER prior to initiation of antibiotics ? PT/OT for debility, he is at an assisted living that is attached to his SNF. If he is able to go back to the assisted living then he could be treated with fosfomycin otherwise we will maintain hereon IV antibiotics pending transfer 2. CAD status post stent/chronic systolic CHF/essential HTN/HLD That she had an echo in 2020 with an EF of 25% and RVSP of 29 mmHg ? Continue with his home blood pressure medications ? Continue with his home aspirin ? Continue with his home cholesterol medications ? Will monitor and make adjustments as necessary 3. BPH with obstruction ? Rod is in place ? Continue with Flomax ? Rod was changed in the ER on this admission DVT: Lovenox Charges/Coding Visit Charges Inpatient E&M: 87727 Subs Hosp L1 05/28/25 0821 Cosigner Signature (if applicable): CC: ~ Signed [facility]07-27-2025 Progress note Author Natanael Nowak [facility] Note Date/Time May 27, 2025 8:54 am [facility] Medical Records Department [address] [place] [address] Progress Note - Hospitalist 05/27/25 0852 MR#: [id number] Acct: [id number] Name: RAJAT GUZMÁN Rep #:[id number] : 1935 89 From: Natanael martinez MD PCP: Dr. John Noel, DO Status:ADM IN Location: AR3 [id number] Subjective Subjective Doing well, no issues overnight. Cultures are still pending Objective Data Objective Data Vital Signs: Vital Signs Temp Pulse Resp BP Pulse Ox O2 Del Method 97.8 F 87 18 141/72 H 96 Room Air 05/27/25 02:47 05/27/25 02:47 05/27/25 02:47 05/27/25 02:47 05/27/25 02:47 05/27/25 02:47 Oxygen Delivery Method Room Air Weight: 107 lb 12.897 oz Body Mass Index (BMI) 19.7 Intake & Output: Intake and Output for Last 24 Hours 05/26/25 05/27/25 05/28/25 03:59 03:59 03:59 Intake Total 750 / 750 2100 / 2100 Output Total 100 / 100 900 / 900 250 / 250 Balance 650 / 650 1200 / 1200 -250 / -250 Medical Nutrition Assessment Dietitian: Malnutrition Criteria Met Start: 05/26/25 15:07 Freq: Status: Active Protocol: Document 05/26/25 15:08 DESIREE (Rec: 05/26/25 15:08 [email or web address] [id number]) Nutrition Malnutrition Evidence of Yes Malnutrition Exists Malnutrition (severe Chronic ): Evidenced By Suboptimal Energy Intake (Severe),Weight Loss (Severe), Physical Changes (Moderate),Physical Changes (Severe) Clinical Problem Chronic Disease or Condition Related Malnutrition Etiology related to physiological changes decreasing appetite and oral intakes Signs/Symptoms as evidenced by significant weight loss of 10% of his body weight, or 12lb, since 04/27/25 weight of [id number]. 376oz as well as estimated oral intakes meeting less than 50% of estimated nutrient needs for > 1 month and visual evidence of moderate to severe muscle and fat wasting (buccal, occular, clavicles). Status Active Problem Recommendation Dietitian Continue with Regular - General diet for liberalization Recommendations/ . Changes Will trial Magic Cup with meals. Provided encouragement to request snacks in between meals to help increase oral intakes. High Calorie, High Protein Nutrition Therapy reviewed and provided. Will continue to follow, monitor oral intakes and modify nutrition interventions as needed. Lab / Micro Data 05/27/25 05:50 05/27/25 05:50 Labs: Laboratory Results - last 24 hr 05/27/25 05:50: WBC 7.2, RBC 3.57 L, Hgb 10.8 L, Hct 31.7 L, MCV 88.8, MCH 30.3,MCHC 34.1, RDW Std Deviation 43.9, RDW Coeff of Arleen 13.4, Plt Count 174, MPV 10.3, Immature Gran % (Auto) 0.100, Neut % (Auto) 54.2, Lymph % (Auto) 32.8, Sibley % (Auto) 9.1, Eos % (Auto) 3.2, Baso % (Auto) 0.6, Absolute Neuts (auto) 3.9, Absolute Lymphs (auto) 2.37, Nucleated RBC % 0, Sodium 137, Potassium 3.9, Chloride 104, Carbon Dioxide 18.0 L, Anion Gap 14, BUN 16, Creatinine 0.76, Estim Creat Clear Calc 43.30 L, Est GFR (MDRD) Non-Af 86, BUN/Creatinine Ratio 20.6 H, Glucose 114 H, Calcium 8.8 Rhythm Strip Rhythm Strip: Sinus Rhythm Rate: 70 Ectopy: None Physical Exam Narrative General: Alert, Oriented x3, [...] to Palpation of Joints or Extremities Neurological: No focal neurological deficits, moves all extremities, sensation intact Psych/Mental Status: Normal Affect, Appropriate Assessment & Plan Assessment/Plan (1) Catheter-associated urinary tract infection: (2) Debility: (3) Protein calorie malnutrition: PLAN: Await dietitian recommendations PLAN: Plan 1. Catheter associated UTI with possible ESBL E. coli/debility ? Cultures from 05/21/2025 in outside hospital demonstrated ESBL E. coli ? He was started on Zosyn but no culture was obtained in the ER prior to initiation of antibiotics ? PT/OT for debility, he is at an assisted living that is attached to his SNF. If he is able to go back to the assisted living then he could be treated with fosfomycin otherwise we will maintain here on IV antibiotics pending transfer 2. CAD status post stent/chronic systolic CHF/essential HTN/HLD That she had an echo in 2020 with an EF of 25% and RVSP of 29 mmHg ? Continue with his home blood pressure medications ? Continue with his home aspirin ? Continue with his home cholesterol medications ? Will monitor and make adjustments as necessary 3. BPH with obstruction ? Rod is in place ? Continue with Flomax ? Rod was changed in the ER on this admission DVT: Lovenox Charges/Coding Visit Charges Inpatient E&M: 24879 Subs Hosp L2 05/27/25 0854 <Electronically signed by Natanael Nowak MD> Cosigner Signature (if applicable): CC: ~ Signed [facility] Work Phone: 1(317) 129-754207-27-2025 Progress note [facility] Medical Records Department [address] [place] [address] Progress Note - Hospitalist 05/27/25 0852 MR#: [id number] Acct: [id number] Name: RAJAT GUZMÁN Rep #:[id number] : 1935 89 From: Natanael martinez MD PCP: Dr. John Noel, DO Status:ADM IN Location: [place] [address] Subjective Subjective Doing well, no issues overnight. Cultures are still pending Objective Data Objective Data Vital Signs: Vital Signs Temp Pulse Resp BP Pulse Ox O2 Del Method 97.8 F 87 18 141/72 H 96 Room Air 05/27/25 02:47 05/27/25 02:47 05/27/25 02:47 05/27/25 02:47 05/27/25 02:47 05/27/25 02:47 Oxygen Delivery Method Room Air Weight: 107 lb 12.897 oz Body Mass Index (BMI) 19.7 Intake & Output: Intake and Output for Last 24 Hours 05/26/25 05/27/25 05/28/25 03:59 03:59 03:59 Intake Total 750 / 750 2100 / 2100 Output Total 100 / 100 900 / 900 250 / 250 Balance 650 / 650 1200 / 1200 -250 / -250 Medical Nutrition Assessment Dietitian: Malnutrition Criteria Met Start: 05/26/25 15:07 Freq: Status: Active Protocol: Document 05/26/25 15:08 DESIREE (Rec: 05/26/25 15:08 [email or web address] [id number]) Nutrition Malnutrition Evidence of Yes Malnutrition Exists Malnutrition (severe Chronic ): Evidenced By Suboptimal Energy Intake (Severe),Weight Loss (Severe), Physical Changes (Moderate),Physical Changes (Severe) Clinical Problem Chronic Disease or Condition Related Malnutrition Etiology related to physiological changes decreasing appetite and oral intakes Signs/Symptoms as evidenced by significant weight loss of 10% of his body weight, or 12lb, since 04/27/25 weight of 156ob99. 376oz as well as estimated oral intakes meeting less than 50% of estimated nutrient needs for > 1 month and visual evidence of moderate to severe muscle and fat wasting (buccal, occular, clavicles). Status Active Problem Recommendation Dietitian Continue with Regular - General diet for liberalization Recommendations/ . Changes Will trial Magic Cup with meals. Provided encouragement to request snacks in between meals to help increase oral intakes. High Calorie, High Protein Nutrition Therapy reviewed and provided. Will continue to follow, monitor oral intakes and modify nutrition interventions as needed. Lab / Micro Data 05/27/25 05:50 05/27/25 05:50 Labs: Laboratory Results - last 24 hr 05/27/25 05:50: WBC 7.2, RBC 3.57 L, Hgb 10.8 L, Hct 31.7 L, MCV 88.8, MCH 30.3,MCHC 34.1, RDW Std Deviation 43.9, RDW Coeff of Arleen 13.4, Plt Count 174, MPV 10.3, Immature Gran % (Auto) 0.100, Neut %(Auto) 54.2, Lymph % (Auto) 32.8, Sibley % (Auto) 9.1, Eos % (Auto) 3.2, Baso % (Auto) 0.6, Absolute Neuts (auto) 3.9, Absolute Lymphs (auto) 2.37, Nucleated RBC % 0, Sodium 137, Potassium 3.9, Chloride 104, Carbon Dioxide 18.0 L, Anion Gap 14, BUN 16, Creatinine 0.76, Estim Creat Clear Calc 43.30 L,Est GFR (MDRD) Non-Af 86, BUN/Creatinine Ratio 20.6 H, Glucose 114 H, Calcium 8.8 Rhythm Strip Rhythm Strip: Sinus Rhythm Rate: 70 Ectopy: None Physical Exam Narrative General: Alert, Oriented x3, [...] to Palpation of Joints or Extremities Neurological: No focal neurological deficits, moves all extremities, sensation intact Psych/Mental Status: Normal Affect, Appropriate Assessment & Plan Assessment/Plan (1) Catheter-associated urinary tract infection: (2) Debility: (3) Protein calorie malnutrition: PLAN: Await dietitian recommendations PLAN: Plan 1. Catheter associated UTI with possible ESBL E. coli/debility ? Cultures from 05/21/2025 in outside hospital demonstrated ESBL E. coli ? He was started on Zosyn but no culture was obtained in the ER prior to initiation of antibiotics ? PT/OT for debility, he is at an assisted living that is attached to his SNF. If he is able to go back to the assisted living then he could be treated with fosfomycin otherwise we will maintain hereon IV antibiotics pending transfer 2. CAD status post stent/chronic systolic CHF/essential HTN/HLD That she had an echo in 2020 with an EF of 25% and RVSP of 29 mmHg ? Continue with his home blood pressure medications ? Continue with his home aspirin ? Continue with his home cholesterol medications ? Will monitor and make adjustments as necessary 3. BPH with obstruction ? Rod is in place ? Continue with Flomax ? Rod was changed in the ER on this admission DVT: Lovenox Charges/Coding Visit Charges Inpatient E&M: 72681 Subs Hosp L2 05/27/25 0854 Cosigner Signature (if applicable): CC: ~ Signed [facility]07-26-2025 Progress note Author Natanael Nowak [facility] Note Date/Time May 26, 2025 8:36 am [facility] Medical Records Department [address] [place] [address] Progress Note - Hospitalist 05/26/25828 MR#: [id number] Acct: [id number] Name: RAJAT GUZMÁN Rep #:[id number] : 1935 89 From: Natanael martinez MD PCP: Dr. John Noel, DO Status:ADM IN Location: MS3 [id number] Subjective Subjective Doing well, feels a bit better today. But still acknowledges that he is kind ofweak Objective Data Objective Data Vital Signs: Vital Signs Temp Pulse Resp BP Pulse Ox O2 Del Method 97 F L 61 16 124/55 H 96 Room Air 05/26/25 08:11 05/26/25 08:11 05/26/25 08:11 05/26/25 08:11 05/26/25 08:11 05/26/25 08:11 Oxygen Delivery Method Room Air Weight: 107 lb 12.897 oz Body Mass Index (BMI) 19.7 Intake & Output: Intake and Output for Last 24 Hours 05/25/25 05/26/25 05/27/25 03:59 03:59 03:59 Intake Total 750 / 750 1100 / 1100 Output Total 100 / 100 200 / 200 Balance 650 / 650 900 / 900 Lab / Micro Data 05/26/25 04:06 05/26/25 04:06 Labs: Laboratory Results - last 24 hr 05/25/25 17:00: WBC 8.2, RBC 3.76 L, Hgb 11.1 L, Hct 33.6 L, MCV 89.4, MCH 29.5,MCHC 33.0, RDW Std Deviation 45.0 H, RDW Coeff of Arleen 13.8, Plt Count 180, MPV 11.8, Immature Gran % (Auto) 0.400, Neut % (Auto) 59.5, Lymph % (Auto) 25.2, Sibley % (Auto) 12.5 H, Eos % (Auto) 1.9, Baso % (Auto) 0.5, Absolute Neuts (auto) 4.9, Absolute Lymphs (auto) 2.07, Nucleated RBC % 0, PT 14.2, INR 1.1, APTT 27.9, Sodium 135, Potassium 4.7, Chloride 100, Carbon Dioxide 20.2 L, Anion Gap 14, BUN 22 H, Creatinine 1.07, Estim Creat Clear Calc 33.39 L, Est GFR (MDRD) Non-Af 66, BUN/Creatinine Ratio 20.5 H, Glucose 109 H, Lactic Acid 1.2, Calcium 9.2, Total Bilirubin 0.85, AST 31, ALT 15, Alkaline Phosphatase 49, Total Protein 7.4, Albumin 3.8, Globulin 3.6, Albumin/Globulin Ratio 1.1 05/25/25 18:20: Urine Color Yellow, Urine Clarity Sl. Cloudy, Urine pH 6.0, Ur Specific [place] 1.015, Urine Protein 30 H, Urine Glucose (UA) Normal, Urine Ketones 5 H, Urine Occult Blood 25 H, Urine Nitrite Positive H, Urine Bilirubin Negative, Urine Urobilinogen Normal, Ur Leukocyte Esterase 500 H, Urine RBC 0-5 SEEN, Urine WBC 10-25 SEEN, Ur Squamous Epith Cells 0-5 SEEN, Ur Transition Epith Cell 0-5 SEEN, Urine Bacteria 2+, Urine Mucus 0 SEEN 05/26/25 04:06: WBC 6.9, RBC 3.20 L, Hgb 9.4 L, Hct 28.8 L, MCV 90.0, MCH 29.4, MCHC 32.6, RDW Std Deviation 45.0 H, RDW Coeff of Arleen 13.7, Plt Count 162, MPV 10.9, Immature Gran % (Auto) 0.100, Neut % (Auto) 50.4, Lymph % (Auto) 33.3, Sibley % (Auto) 12.4 H, Eos % (Auto) 3.1, Baso % (Auto) 0.7, Absolute Neuts (auto) 3.5, Absolute Lymphs (auto) 2.28, Nucleated RBC % 0, Sodium 138, Potassium 3.9, Chloride 107, Carbon Dioxide 18.9 L, Anion Gap 13, BUN 19, Creatinine 0.83, Estim Creat Clear Calc 41.73 L, Est GFR (MDRD) Non-Af 84, BUN/Creatinine Ratio 22.5 H, Glucose 81, Calcium 8.2 Radiography Diagnostic Testing: Radiology Impression Chest X-Ray 05/25/25 17:35 IMPRESSION: NO ACUTE FINDINGS. Reading Location: [facility] Rhythm Strip Rhythm Strip: Sinus Rhythm Rate: 70 Ectopy: None Physical Exam Narrative General: Alert, Oriented x3, [...] to Palpation of Joints or Extremities Neurological: No focal neurological deficits, moves all extremities, sensation intact Psych/Mental Status: Normal Affect, Appropriate Assessment & Plan Assessment/Plan (1) Catheter-associated urinary tract infection: (2) Debility: (3) Protein calorie malnutrition: PLAN: Await dietitian recommendations PLAN: Plan 1. Catheter associated UTI with possible ESBL E. coli/debility ? Cultures from 05/21/2025 in outside hospital demonstrated ESBL E. coli ? He was started on Zosyn but no culture was obtained in the ER prior to initiation of antibiotics ? PT/OT for debility, he is at an assisted living that is attached to his SNF. If he is able to go back to the assisted living then he could be treated with fosfomycin otherwise we will maintain here on IV antibiotics pending transfer 2. CAD status post stent/chronic systolic CHF/essential HTN/HLD That she had an echo in 2020 with an EF of 25% and RVSP of 29 mmHg ? Continue with his home blood pressure medications ? Continue with his home aspirin ? Continue with his home cholesterol medications ? Will monitor and make adjustments as necessary 3. BPH with obstruction ? Rod is in place ? Continue with Flomax ? Rod was changed in the ER on this admission DVT: Lovenox Charges/Coding Visit Charges Inpatient E&M: 10008 Subs Hosp L2 05/26/25 0836 <Electronically signed by Natanael Nowak MD> Cosigner Signature (if applicable): CC: ~ Signed [facility] Work Phone: 1(209) 282-496607-26-2025 Progress note [facility] Medical Records Department [address] [place] [address] Progress Note - Hospitalist 05/26/25828 MR#: [id number] Acct: [id number] Name: RAJAT GUZMÁN Rep #:[id number] : 1935 89 From: Natanael martinez MD PCP: Dr. John Noel, DO Status:ADM IN Location: MS3 [id number] Subjective Subjective Doing well, feels a bit better today. But still acknowledges that he is kind ofweak Objective Data Objective Data Vital Signs: Vital Signs Temp Pulse Resp BP Pulse Ox O2 Del Method 97 F L 61 16 124/55 H 96 Room Air 05/26/25 08:11 05/26/25 08:11 05/26/25 08:11 05/26/25 08:11 05/26/25 08:11 05/26/25 08:11 Oxygen Delivery Method Room Air Weight: 107 lb 12.897 oz Body Mass Index (BMI) 19.7 Intake & Output: Intake and Output for Last 24 Hours 05/25/25 05/26/25 05/27/25 03:59 03:59 03:59 Intake Total 750 / 750 1100 / 1100 Output Total 100 / 100 200 / 200 Balance 650 / 650 900 / 900 Lab / Micro Data 05/26/25 04:06 05/26/25 04:06 Labs: Laboratory Results - last 24 hr 05/25/25 17:00: WBC 8.2, RBC 3.76 L, Hgb 11.1 L, Hct 33.6 L, MCV 89.4, MCH 29.5,MCHC 33.0, RDW Std Deviation 45.0 H, RDW Coeff of Arleen 13.8, Plt Count 180, MPV 11.8, Immature Gran % (Auto) 0.400, Neut% (Auto) 59.5, Lymph % (Auto) 25.2, Sibley % (Auto) 12.5 H, Eos % (Auto) 1.9, Baso % (Auto) 0.5, Absolute Neuts (auto) 4.9, Absolute Lymphs (auto) 2.07, Nucleated RBC % 0, PT 14.2, INR 1.1, APTT 27.9, Sodium 135, Potassium 4.7, Chloride 100, Carbon Dioxide 20.2 L, Anion Gap 14, BUN 22 H, Creatinine 1.07, Estim Creat Clear Calc 33.39 L, Est GFR (MDRD) Non-Af 66, BUN/Creatinine Ratio 20.5 H, Glucose 109 H, Lactic Acid 1.2, Calcium 9.2, Total Bilirubin 0.85, AST 31, ALT 15, Alkaline Phosphatase 49, Total Protein 7.4, Albumin 3.8, Globulin 3.6, Albumin/Globulin Ratio 1.1 05/25/25 18:20: Urine Color Yellow, Urine Clarity Sl. Cloudy, Urine pH 6.0, Ur Specific [place] 1.015, Urine Protein 30 H, Urine Glucose (UA) Normal, Urine Ketones 5 H, Urine Occult Blood 25 H, UrineNitrite Positive H, Urine Bilirubin Negative, Urine Urobilinogen Normal, Ur Leukocyte Esterase 500 H, Urine RBC 0-5 SEEN, Urine WBC 10-25 SEEN, Ur Squamous Epith Cells 0-5 SEEN, Ur Transition Epith Cell 0-5 SEEN, Urine Bacteria 2+, Urine Mucus 0 SEEN 05/26/25 04:06: WBC 6.9, RBC 3.20 L, Hgb 9.4 L, Hct 28.8 L, MCV 90.0, MCH 29.4, MCHC 32.6, RDW Std Deviation 45.0 H, RDW Coeff of Arleen 13.7, Plt Count 162, MPV 10.9, Immature Gran % (Auto) 0.100, Neut% (Auto) 50.4, Lymph % (Auto) 33.3, Sibley % (Auto) 12.4 H, Eos % (Auto) 3.1, Baso % (Auto) 0.7, Absolute Neuts (auto) 3.5, Absolute Lymphs (auto) 2.28, Nucleated RBC % 0, Sodium 138, Potassium 3.9, Chl oride 107, Carbon Dioxide 18.9 L, Anion Gap 13, BUN 19, Creatinine 0.83, Estim Creat Clear Calc 41.73 L, Est GFR (MDRD) Non-Af 84, BUN/Creatinine Ratio 22.5 H, Glucose 81, Calcium 8.2 Radiography Diagnostic Testing: Radiology Impression Chest X-Ray 05/25/25 17:35 IMPRESSION: NO ACUTE FINDINGS. Reading Location: [facility] Rhythm Strip Rhythm Strip: Sinus Rhythm Rate: 70 Ectopy: None Physical Exam Narrative General: Alert, Oriented x3, [...] to Palpation of Joints or Extremities Neurological: No focal neurological deficits, moves all extremities, sensation intact Psych/Mental Status: Normal Affect, Appropriate Assessment & Plan Assessment/Plan (1) Catheter-associated urinary tract infection: (2) Debility: (3) Protein calorie malnutrition: PLAN: Await dietitian recommendations PLAN: Plan 1. Catheter associated UTI with possible ESBL E. coli/debility ? Cultures from 05/21/2025 in outside hospital demonstrated ESBL E. coli ? He was started on Zosyn but no culture was obtained in the ER prior to initiation of antibiotics ? PT/OT for debility, he is at an assisted living that is attached to his SNF. If he is able to go back to the assisted living then he could be treated with fosfomycin otherwise we will maintain hereon IV antibiotics pending transfer 2. CAD status post stent/chronic systolic CHF/essential HTN/HLD That she had an echo in 2020 with an EF of 25% and RVSP of 29 mmHg ? Continue with his home blood pressure medications ? Continue with his home aspirin ? Continue with his home cholesterol medications ? Will monitor and make adjustments as necessary 3. BPH with obstruction ? Rod is in place ? Continue with Flomax ? Rod was changed in the ER on this admission DVT: Lovenox Charges/Coding Visit Charges Inpatient E&M: 13970 Subs Hosp L2 05/26/25 0836 Cosigner Signature (if applicable): CC: ~ Signed [facility]07-25-2025 Discharge summary Author Zackary Matthews [facility] Note Date/Time May 25, 2025 8:15 pm [facility] Medical Records Department [address] [place] [address] Emergency Department Summary 05/25/25 MR#: [id number] Acct: [id number] Name: RAJAT GUZMÁN Rep #:[id number] : 1935 89 From: Zackary Matthews MD PCP: Dr. John Noel, DO Status:REG ER Location: ED HPI History of Present Illness Chief Complaint: Complaint Informant: patient and family Narrative Narrative: 89-year-old male advised to come to the ER based on culture results that were done in the health system. Apparently he has felt poorly for 1 month. He has an indwelling Rod catheter that is been there for 2 or 3 years. He has been on antibiotics in this past month despite not getting better. Culture thatwas done earlier in the week that returned today according to family and patientshows something that can only be treated with IV antibiotics so they were advised to go to the hospital and that the records are [facility] in [facility]. He statesrecently he has had some coughing and shortness of breath. No fevers or chills. No syncope. He is still able to walk and drive just feels very fatigued and weak all over. No GI symptoms. PFSH 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 Dyspnea Fatigue Hypokalemia Benign prostatic hypertrophy SBO (small bowel obstruction) Home Medications ?Medication ?Instructions ?Recorded ?Last Taken ?Type aspirin 81 mg tablet,delayed 81 mg PO DAILY 05/23/24 0 05/25/25 History release (Adult Low Dose Aspirin) nitroglycerin 0.4 mg sublingual 0.4 mg sublingual Q5M PRN Chest 05/23/24 Unknown Rx tablet Pain #25 tabs tamsulosin 0.4 mg capsule 0.4 mg PO QDAY 05/23/2405/02 History simvastatin 20 mg tablet 20 mg PO QHS for cholesterol #90 08/23/24 05/24/25 Rx TABLETS carvedilol 6.25 mg tablet 6.25 mg PO BID #60 tabs 11/0105/25/25 Rx prednisone 5 mg tablet 2 mg PO QDAY 11/10/24 History sacubitril 24 mg-valsartan 26 mg 1 tab PO BID #60 tabs 03/14/25 05/25/25 Rx tablet (Entresto) cephalexin 500 mg capsule 500 mg PO Q6 #28 CAPSULES 05/25/25 Rx diphenhydramine 25 2 tab PO QHS 04/28/25 History mg-acetaminophen 500 mg tablet (Tylenol PM Extra Strength) melatonin 10 mg tablet 20 mg PO QHS sleep 04/28/25 05/24/25 History oxybutynin chloride 5 mg tablet 5 mg PO DAILY 04/28/25 05/25/25 History prednisone 1 mg tablet 2 mg PO DAILY 05/25/2505/25 History Allergy/AdvReac Type Severity Reaction Status Date / Time morphine Allergy Intermediate Rash Verified 05/25/25 15:53 zolpidem tartrate (From AdvReac Intermediate CONFUSION Verified 05/25/25 15:53 Ambien) Family History Mother CAD (coronary artery [...] ROS ROS ED Constitutional Constitutional ED: Reports fatigue, malaise and weakness; Denies chills or fever(s) Eyes Eyes: Denies change in vision or diplopia ENT ENT ED: Denies rhinorrhea or sore throat Cardiovascular Cardiovascular: Denies chest pain, lightheadedness, palpitations or syncope Respiratory/Chest Respiratory/Chest: Reports cough and dyspnea on exertion Gastrointestinal Gastrointestinal: Denies abdominal pain, diarrhea, nausea or vomiting Genitourinary Genitourinary ED: Denies hematuria Musculoskeletal Musculoskeletal: Denies back pain or neck pain Integumentary Denies abscess or rash Neurologic Neurologic: Denies headache(s), paresthesias or weakness Psychiatric Psychiatric: Denies anxiety or suicidal thoughts EXAM Physical Exam Const Vital Signs: 05/25/25 15:51 05/25/25 16:51 05/25/25 17:00 Temperature 98.9 F Temperature Source Oral Pulse Rate 81 66 62 Respiratory Rate 18 15 Blood Pressure 124/75 H 111/53 L 108/72 Blood Pressure Mean 91 72 84 Pulse Ox 98 100 98 Oxygen Delivery Method Room Air Room Air Room Air 05/25/25 17:15 05/25/25 17:17 05/25/25 18:00 Temperature 98.9 F 98.3 F Temperature Source Oral Oral Pulse Rate 67 68 Respiratory Rate 15 16 Blood Pressure 111/53 L 123/53 H Blood Pressure Mean 72 76 Pulse Ox 97 97 Oxygen Delivery Method Room Air Room Air Room Air 05/25/25 18:00 05/25/25 18:59 05/25/25 19:00 Temperature 98.3 F Temperature Source Oral Pulse Rate 68 Respiratory Rate 16 Blood Pressure 123/53 H 119/56 L 119/56 L Blood Pressure Mean 76 77 77 Pulse Ox 99 Oxygen Delivery Method Room Air 05/25/25 19:38 05/25/25 20:00 Temperature 98.8 F 98.8 F Temperature Source Oral Pulse Rate 70 75 Respiratory Rate 16 16 Blood Pressure 113/57 L 105/85 H Blood Pressure Mean 75 91 Pulse Ox 100 98 Oxygen Delivery Method Room Air Positive well nourished and well developed General Appearance ED: well developed and NAD HEENT Reports moist mucous membranes normocephalic and atraumatic Eyes PERRL and EOMs intact bilaterally Neck full ROM and supple Resp normal respiratory effort and clear to auscultation bilaterally Cardio regular rate, regular rhythm and no murmurs GI non-tender and non-distended Auscultation: normoactive bowel sounds Palpation: soft Back/Spine no CVA tenderness General Back: other FROM Extremity normal to inspection General Extremety ED: Negative for edema, pulses abnormal or tenderness General Extremity: Negative for edema or pulses abnormal Neuro oriented x3, CN's II-XII intact bilaterally and no sensory deficits noted Sensorium / Orientation: awake and alert Motor Exam: strength 5/5 throughout Skin no rashes or lesions noted and no wounds MDM MDM MDM Narrative Medical decision making narrative: Labs obtained including lactate which is within normal limits. He is a little prerenal. He took several hours to get outpatient testing from , we had to call [facility] in order to get these records which shows urine culture with ESBLE. coli greater than 100,000 CFU per mL. It shows sensitivities to imipenem, meropenem, Zosyn, and Bactrim. Although there is an oral antibiotic on this list, the daughter asks that we still admit him because he is extremely weak andhas been progressively getting worse. Discussed with hospitalist. At this timehe is not septic and stable for medical surgical floor. I did send blood cultures. In addition I did a two- view chest x-ray which is negative for pneumoniamitral rotation, radiology in agreement. History & Record Review Additional record(s) reviewed:: Prior labs Lab Data Attestation: I reviewed the patient's lab results. Labs: Laboratory Results - last 24 hr 05/25/25 17:00 WBC 8.2 RBC 3.76 L Hgb 11.1 L Hct 33.6 L MCV 89.4 MCH 29.5 MCHC 33.0 RDW Std Deviation 45.0 H RDW Coeff of Arleen 13.8 Plt Count 180 MPV 11.8 Immature Gran % (Auto) 0.400 Neut % (Auto) 59.5 Lymph % (Auto) 25.2 Sibley % (Auto) 12.5 H Eos % (Auto) 1.9 Baso % (Auto) 0.5 Absolute Neuts (auto) 4.9 Absolute Lymphs (auto) 2.07 Nucleated RBC % 0 PT 14.2 INR 1.1 APTT 27.9 Sodium 135 Potassium 4.7 Chloride 100 Carbon Dioxide 20.2 L Anion Gap 14 BUN 22 H Creatinine 1.07 Estim Creat Clear Calc 33.39 L Est GFR (MDRD) Non-Af 66 BUN/Creatinine Ratio 20.5 H Glucose 109 H Lactic Acid 1.2 Calcium 9.2 Total Bilirubin 0.85 AST 31 ALT 15 Alkaline Phosphatase 49 Total Protein 7.4 Albumin 3.8 Globulin 3.6 Albumin/Globulin Ratio 1.1 Radiography Diagnostic Testing: Clinical Impression(s) from Imaging Studies Chest X-Ray 05/25/25 17:35 IMPRESSION: NO ACUTE FINDINGS. Reading Location: [facility] Rhythm Strip Rhythm Strip: Sinus Rhythm Rate: 70 Ectopy: None EKG Initial EKG: Attestation: I personally reviewed and interpreted this EKG as follows: Interpretation: Sinus Rhythm and No Acute Injury Pattern Comments: Nml intervals, axis borderline left, otherwise nml EKG Management Discussion w/another healthcare provider: Hospitalist Discharge Plan Dx/Rx/DC Orders Clinical Impression: UTI due to extended-spectrum beta lactamase (ESBL) producing Escherichia coli, Debility, Failure of outpatient treatment, Acute cough Disposition Disposition: Acute Care Hospital [facility] What to do if you have Problems For any increased pain, shortness of breath, bleeding, nausea or vomiting, chestpain, or any unexpected problems, contact your Primary Care Provider. Call [facility] ([phone]) or report to the closest Emergency Room. Call 911 if necessary. 05/25/252014 <Electronically signed by Zackary Matthews MD> Cosigner Signature (if applicable): CC: Dr. John Noel, DO ~ Signed [facility] Work Phone: 1(921) 501-216007-25-2025 Discharge summary [facility] Medical Records Department [address] [place] [address] Emergency Department Summary 05/25/25 MR#: [id number] Acct: [id number] Name: RAJAT GUZMÁN Rep #:[id number] : 1935 89 From: Zackary Matthews MD PCP: Dr. John Noel, Status:REG ER Location: ED HPI History of Present Illness Chief Complaint: Complaint Informant: patient and family Narrative Narrative: 89-year-old male advised to come to the ER based [facility] Apparently he has felt poorly for 1 month. He has an indwelling Rod catheter that is beenthere for 2 or 3 years. He has been on antibiotics in this past month despite not getting better. Culture thatwas done earlier in the week that returned today according to family and patientshows something that can only be treated with IV antibiotics so they were advised to go to the hospital and that the records are [facility] in [facility]. He statesrecently he has had some coughing and shortness of breath. No fevers or chills. No syncope. He is still able to walk and drive just feels very fatigued and weak all over. No GI symptoms. 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 Dyspnea Fatigue Hypokalemia Benign prostatic hypertrophy SBO (small bowel obstruction) Home Medications ?Medication ?Instructions ?Recorded ?Last Taken ?Type aspirin 81 mg tablet,delayed 81 mg PO DAILY 05/23/24 0 05/25/25 History release (Adult Low Dose Aspirin) nitroglycerin 0.4 mg sublingual 0.4 mg sublingual Q5M PRN Chest 05/23/24 Unknown Rx tablet Pain #25 tabs tamsulosin 0.4 mg capsule 0.4 mg PO QDAY 05/23/2405/02 History simvastatin 20 mg tablet 20 mg PO QHS for cholesterol #90 08/23/24 05/24/25 Rx TABLETS carvedilol 6.25 mg tablet 6.25 mg PO BID #60 tabs 11/0105/25/25 Rx prednisone 5 mg tablet 2 mg PO QDAY 11/10/24 History sacubitril 24 mg-valsartan 26 mg 1 tab PO BID #60 tabs 03/14/25 05/25/25 Rx tablet (Entresto) cephalexin 500 mg capsule 500 mg PO Q6 #28 CAPSULES 05/25/25 Rx diphenhydramine 25 2 tab PO QHS 04/28/25 History mg-acetaminophen 500 mg tablet (Tylenol PM Extra Strength) melatonin 10 mg tablet 20 mg PO QHS sleep 04/28/25 05/24/25 History oxybutynin chloride 5 mg tablet 5 mg PO DAILY 04/28/25 05/25/25 History prednisone 1 mg tablet 2 mg PO DAILY 05/25/2505/25 History Allergy/AdvReac Type Severity Reaction Status Date / Time morphine Allergy Intermediate Rash Verified 05/25/25 15:53 zolpidem tartrate (From AdvReac Intermediate CONFUSION Verified 05/25/25 15:53 Ambien) Family History Mother CAD (coronary artery [...] ROS ROS ED Constitutional Constitutional ED: Reports fatigue, malaise and weakness; Denies chills or fever(s) Eyes Eyes: Denies change in vision or diplopia ENT ENT ED: Denies rhinorrhea or sore throat Cardiovascular Cardiovascular: Denies chest pain, lightheadedness, palpitations or syncope Respiratory/Chest Respiratory/Chest: Reports cough and dyspnea on exertion Gastrointestinal Gastrointestinal: Denies abdominal pain, diarrhea, nausea or vomiting Genitourinary Genitourinary ED: Denies hematuria Musculoskeletal Musculoskeletal: Denies back pain or neck pain Integumentary Denies abscess or rash Neurologic Neurologic: Denies headache(s), paresthesias or weakness Psychiatric Psychiatric: Denies anxiety or suicidal thoughts EXAM Physical Exam Const Vital Signs: 05/25/25 15:51 05/25/25 16:51 05/25/25 17:00 Temperature 98.9 F Temperature Source Oral Pulse Rate 81 66 62 Respiratory Rate 18 15 Blood Pressure 124/75 H 111/53 L 108/72 Blood Pressure Mean 91 72 84 Pulse Ox 98 100 98 Oxygen Delivery Method Room Air Room Air Room Air 05/25/25 17:15 05/25/25 17:17 05/25/25 18:00 Temperature 98.9 F 98.3 F Temperature Source Oral Oral Pulse Rate 67 68 Respiratory Rate 15 16 Blood Pressure 111/53 L 123/53 H Blood Pressure Mean 72 76 Pulse Ox 97 97 Oxygen Delivery Method Room Air Room Air Room Air 05/25/25 18:00 05/25/25 18:59 05/25/25 19:00 Temperature 98.3 F Temperature Source Oral Pulse Rate 68 Respiratory Rate 16 Blood Pressure 123/53 H 119/56 L 119/56 L Blood Pressure Mean 76 77 77 Pulse Ox 99 Oxygen Delivery Method Room Air 05/25/25 19:38 05/25/25 20:00 Temperature 98.8 F 98.8 F Temperature Source Oral Pulse Rate 70 75 Respiratory Rate 16 16 Blood Pressure 113/57 L 105/85 H Blood Pressure Mean 75 91 Pulse Ox 100 98 Oxygen Delivery Method Room Air Positive well nourished and well developed General Appearance ED: well developed and NAD HEENT Reports moist mucous membranes normocephalic and atraumatic Eyes PERRL and EOMs intact bilaterally Neck full ROM and supple Resp normal respiratory effort and clear to auscultation bilaterally Cardio regular rate, regular rhythm and no murmurs GI non-tender and non-distended Auscultation: normoactive bowel sounds Palpation: soft Back/Spine no CVA tenderness General Back: other FROM Extremity normal to inspection General Extremety ED: Negative for edema, pulses abnormal or tenderness General Extremity: Negative for edema or pulses abnormal Neuro oriented x3, CN's II-XII intact bilaterally and no sensory deficits noted Sensorium / Orientation: awake and alert Motor Exam: strength 5/5 throughout Skin no rashes or lesions noted and no wounds MDM MDM MDM Narrative Medical decision making narrative: Labs obtained including lactate which is within normal limits. He is a little prerenal. He took several hours to get outpatient testing from , we had to call [facility] in order to get these recordswhich shows urine culture with ESBLE. coli greater than 100,000 CFU per mL. It shows sensitivities to imipenem, meropenem, Zosyn, and Bactrim. Although there is an oral antibiotic on this list, the daughter asks that we still admit him because he is extremely weak andhas been progressively getting worse. Discussed with hospitalist. At this timehe is not septic and stable for medical surgical floor. I did send blood cultures. In addition I did a two-view chest x-ray which is negative for pneumoniamitral rotation, radiology in agreement. History & Record Review Additional record(s) reviewed:: Prior labs Lab Data Attestation: I reviewed the patient's lab results. Labs: Laboratory Results - last 24 hr 05/25/25 17:00 WBC 8.2 RBC 3.76 L Hgb 11.1 L Hct 33.6 L MCV 89.4 MCH 29.5 MCHC 33.0 RDW Std Deviation 45.0 H RDW Coeff of Arleen 13.8 Plt Count 180 MPV 11.8 Immature Gran % (Auto) 0.400 Neut % (Auto) 59.5 Lymph % (Auto) 25.2 Sibley % (Auto) 12.5 H Eos % (Auto) 1.9 Baso % (Auto) 0.5 Absolute Neuts (auto) 4.9 Absolute Lymphs (auto) 2.07 Nucleated RBC % 0 PT 14.2 INR 1.1 APTT 27.9 Sodium 135 Potassium 4.7 Chloride 100 Carbon Dioxide 20.2 L Anion Gap 14 BUN 22 H Creatinine 1.07 Estim Creat Clear Calc 33.39 L Est GFR (MDRD) Non-Af 66 BUN/Creatinine Ratio 20.5 H Glucose 109 H Lactic Acid 1.2 Calcium 9.2 Total Bilirubin 0.85 AST 31 ALT 15 Alkaline Phosphatase 49 Total Protein 7.4 Albumin 3.8 Globulin 3.6 Albumin/Globulin Ratio 1.1 Radiography Diagnostic Testing: Clinical Impression(s) from Imaging Studies Chest X-Ray 05/25/25 17:35 IMPRESSION: NO ACUTE FINDINGS. Reading Location: [facility] Rhythm Strip Rhythm Strip: Sinus Rhythm Rate: 70 Ectopy: None EKG Initial EKG: Attestation: I personally reviewed and interpreted this EKG as follows: Interpretation: Sinus Rhythm and No Acute Injury Pattern Comments: Nml intervals, axis borderline left, otherwise nml EKG Management Discussion w/another healthcare provider: Hospitalist Discharge Plan Dx/Rx/DC Orders Clinical Impression: UTI due to extended-spectrum beta lactamase (ESBL) producing Escherichia coli, Debility, Failure ofoutpatient treatment, Acute cough Disposition Disposition: Acute Care Hospital [facility] What to do if you have Problems For any increased pain, shortness of breath, bleeding, nausea or vomiting, chestpain, or any unexpected problems, contact your Primary Care Provider. Call [facility] ([phone]) or report tothe closest Emergency Room. Call 911 if necessary. 05/25/252014 Cosigner Signature (if applicable): CC: Dr. John Noel, ~ Signed [facility]07-25-2025 Radiology Diagnostic study note [facility] Imaging Services [address] [place], [place] [address] Chest PA and Lateral MR#: [id number] Acct: [id number] Name: RAJAT GUZMÁN Rep #: [id number] : 1935 M 89 From: Vernon Vu MD PCP: Dr. John Noel DO Status: REG ER Study:Chest PA and Lateral Date of Exam: 05/25/25 Exam# [id number] Ordering Dr: Jesica Matthews MD PROCEDURE: CHEST PA AND LATERAL 05/25/2025 REASON FOR EXAM: SOB, COUGH, WEAKNESS TECHNIQUE: CHEST PA AND LATERAL FINDINGS: Left chest AICD. The heart is enlarged. The lungs are clear. No pleural effusion or pneumothorax. No acute osseous abnormalities. RAD/Chest PA and Lateral IMPRESSION: NO ACUTE FINDINGS. Reading Location: [id number] CC: Dr. Zackary Matthews MD; Dr. John Noel DO ~ Alternative Dispute Resolution Mediator: Signed [facility]07-09-2025 Radiology Diagnostic study note [facility] Imaging Services [address] [place] [address] Abdomen Single View MR#: [id number] Acct: [id number] Name: RAJAT GUZMÁN Rep #: [id number] : 1935 M 89 From: Belkys Pringle MD PCP: Dr. John Noel DO Status: REG CLI Study:Abdomen Single View Date of Exam: 05/09/25 Exam# [id number] Ordering Dr: John Noel DO EXAM: XR [...] the colon consistent with constipation. Reading Location: [place] CC: Dr. John Noel DO ~ Alternative Dispute Resolution Mediator: Signed [facility]06-29-2025 Progress note [facility] Medical Records Department [address] [place] [address] Progress Note - Hospitalist 04/29/25 1251 MR#: [id number] Acct: [id number] Name: RAJAT GUZMÁN Rep #:[id number] : 1935 89 From: Cheryl Ochoa DO PCP: Dr. John Noel, DO Status:ADM IN Location: [place] [address] Hospitalist Note Mr. Guzmán is an 89-year-old white male who presented to the emergency department at [facility] on 04/27/2025 with a chief complaint of [...] IV fluids, IV antibiotics, andantiemetics. Patient had previouslyhad ESBL producing organism so he was placed [...] oral antibiotics however the patient would not haveany of it and he wanted to leave AGAINST MEDICAL ADVICE. He stated we were killing him here.. I did review that the antibiotic was sent to [place]. He has Keflex 500 mg p.o. twice daily for 14 daysthat was prescribed by the emergency department physician. He states that he will just follow-up with his primary care physician tomorrow. Mary Beth tried to get him to stay in the hospital however he was adamant and he left after signing out AGAINST MEDICAL ADVICE. Patient's risk for readmission is extremely high. 04/29/25 1257 Cosigner Signature (if applicable): CC: ~ Signed [facility]06-28-2025 Discharge summary Author Henok Villarreal [facility] Note Date/Time April 28, 2025 5:44 pm [facility] Medical Records Department [address] [place] [address] Emergency Department Summary 04/28/25 MR#: [id number] Acct: [id number] Name: RAJAT GUZMÁN Rep #:[id number] : 1935 89 From: Henok Villarreal MD [...] Prior similar symptoms: Yes Recent Illness/Hospitalization: Yes 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 This is well- closed. Palpation: soft and tender suprapubic Narrative: There [...] 72.7 H Lymph % (Auto) 17.9 L Sibley % (Auto) 8.6 Eos % (Auto) 0.2 [...] artery disease) Disposition Disposition: Acute Care Hospital [facility] What to do if you have Problems For any increased pain, shortness of breath, bleeding, nausea or vomiting, chestpain, or any unexpected problems, contact your Primary Care Provider. Call [facility] ([phone]) or report to the closest Emergency Room. Call 911 if necessary. 04/28/25 1110 <Electronically signed by Henok Villarreal MD> Cosigner Signature (if applicable): CC: Dr. John Noel, ~ Signed [facility] Work Phone: 1(416) 241-725206-28-2025 Discharge summary [facility] Medical Records Department [address] [place] [address] Emergency Department Summary 04/28/25 MR#: [id number] Acct: [id number] Name: RAJAT GUZMÁN Rep #:[id number] : 1935 89 From: Henok Villarreal MD PCP: Dr. 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 Call [facility] ([phone]) or report tothe closest Emergency Room. Call 911 if necessary. 04/28/25 8203 Cosigner Signature (if applicable): CC: Dr. John Noel, DO ~ Signed [facility]06-27-2025 Discharge summary [facility] Medical Records Department [address] [place] [address] Emergency Department Summary 04/27/25 MR#: [id number] Acct: [id number] Name: RAJAT GUZMÁN Rep #:[id number] : 1935 89 From: Timoteo Mckenna DO PCP: Dr. John Noel, Status:REG ER Location: ED HPI History of [...] He denies feversor chills or sweats. 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 Cloudy Urine pH 6.0 Ur Specific [place] 1.015 Urine Protein 30 H Urine Glucose [...] Care Provider] - 3-5 Days Print Language: Tuvaluan Disposition Disposition: Home, Self Care What to do if you have Problems For any increased pain, shortness of breath, bleeding, nausea or vomiting, chestpain, or any unexpected problems, contact your Primary Care Provider. Call [facility] ([phone]) or report tothe closest Emergency Room. Call 911 if necessary. 04/27/25 2241 Cosigner Signature (if applicable): CC: Dr. John Noel, ~ Signed [facility]06-27-2025 Discharge summary Author [facility] Note Date/Time April 27, 2025 10:4 1pm [facility] Medical Records Department [address] [place] [address] Emergency Department Summary 04/27/25 MR#: [id number] Acct: [id number] Name: RAJAT GUZMÁN [place] Rep #:[id number] : 1935 89 From: Timoteo Mckenna DO [...] chills or sweats. 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 Cloudy Urine pH 6.0 Ur Specific [place] 1.015 Urine Protein 30 H Urine Glucose [...] Care Provider] - 3-5 Days Print Language: Tuvaluan Disposition Disposition: Home, Self Care What to do if you have Problems For any increased pain, shortness of breath, bleeding, nausea or vomiting, chestpain, or any unexpected problems, contact your Primary Care Provider. Call [facility] ([phone]) or report to the closest Emergency Room. Call 911 if necessary. 06/27/25 2241 <Electronically signed by Timoteo Mckenna DO> Cosigner Signature (if applicable): CC: Dr. John Noel, ~ Signed [facility] Work Phone: 1(351) 113-118606-24-2025 Evaluation + Plan note* Assessment & Plan Note - CORTEZ Hutchinson - 04/24/2025 3:04 PM EDTAssociated Problem(s): Urinary retention Stable. SP cath intact draining clear yellow urine. Plan for catheter change in May 2025. Encouraged fluids. [facility] Work Phone: 1([phone]) 667-221606-24-2025 Evaluation + Plan note* Assessment & Plan Note - CORTEZ Hutchinson - 04/24/2025 3:04 PM EDTAssociated Problem(s): Bladder spasm Stable. Continue oxybutynin. Encourage fluids. [facility] Work Phone: 1(994) 638-570706-24-2025 Miscellaneous Notes* Assessment & Plan Note - [...] office in 6 months. documented in this [facility] Work Phone: 1(556) 243-351606-24-2025 Evaluation + Plan note* Assessment & Plan [...] and follow-up in office in 6 months. [facility] Work Phone: 1([phone]) 483-882806-24-2025 History of Present illness Narrative* CORTEZ Hutchinson - 04/24/2025 1:30 PM EDT Images from the original note were not included. Urology [facility] Note Subjective Patient ID: Rajat Guzmán is a 89 y.o. male who presents for No chief complaint on file.. History of Present Illness Rajat is a 89 y.o. male who presents for follow-up for history of prostate cancer and urinary retention. Patient diagnosed with prostate cancer on 06/14/2024, [place] 9 on the right and 9 on [...] No pertinent surgical history. 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 March 12, 2025 2 :04pm Dyslipidemia chronic March 12 2:04pm Essential hypertension chronic 2024 2:04pm Presence of stent in coronar y artery December,March 12, 2025 2 :04pm [facility] Work Phone: 1(311) 232-548505-12-2025 Evaluation note* Diagnosis Onset Date Resolution Status [...] 28, 2025 6:32pm Leukocytosis acute April 28, 2 025 6:32pm Nausea & vomiting acute April 282024 6:32pm Urinary tract infection acute J 2024 6:32pm [facility] Work Phone: 1(323) 330-741205-12-2025 Evaluation note* Diagnosis Onset Date Resolution Status [...] 292024 7:15am Urinary tract infection acute J [facility] 2024 7:15am [facility] Work Phone: [phone] Evaluation note* Diagnosis Onset Date Resolution Status [...] 292024 7:15am Urinary tract infection acute J [facility] 2024 7:15am Acute UTI inactive April 29 7:15am [facility] Work Phone: [phone] 683-555005-12-2025 Evaluation note* Diagnosis Onset Date Resolution Status [...] 292024 7:15am Urinary tract infection acute J une 2024 7:15am Acute UTI inactive April 29 7:15am Acute cough acute May 25 8:02pm Catheter-associated urinary tract infection acute May 25, 2025 8:02pm Debility acute May 25 8:02pm Protein calorie malnutrition acute May 25, 2025 8:02pm [facility] Work Phone: [phone] Evaluation note* Diagnosis Onset Date Resolution Status [...] 292024 7:15am Urinary tract infection acute J une 2024 7:15am Acute UTI inactive April 29 7:15am Acute cough acute May 25 8:02pm Debility acute May 25 8:02pm Protein calorie malnutrition acute May 25, 2025 8:02pm Catheter-associated urinary tract infection resolved May 25, 2025 8:02pm [facility] Work Phone: 1([phone]) 281-836804-28-2025 History of Present illness Narrative* Toni Marquez [...] was instilled into the urethra. A 17 Nepali Rod was placed, with urine return into catheter tubing, the 10cc balloon was then inflated and checked for position. The catheter was then irrigated with a mixture of Betadine 5 ml andSaline 500 ml. A leg bag was then attached. FOLLOW UP ROD CHANGE IN 6 WEEKS Cosigned by Jian Jiménez MD MPH at 02/27/2025 4:24 PM EDT documented in [facility] Work Phone: 1([phone]) 393-378903-05-2025 History of Present illness Narrative* Waleska Galdamez [...] was instilled into the urethra. A 16 Nepali Rod was placed with a 10cc balloon which was inflated. This was then irrigated with a mixture of Betadine 5 ml and Saline 500 ml. A plug was then attached. SIZE 16FR ROD PLACED FOLLOW UP ROD CHANGE IN 6 WEEKS documented in this encounterJoint [facility] Work Phone: 1(288) 423-427802-12-2025 History of Present illness Narrative* Waleska Galdamez [...] SIZE 16FR ROD PLACED documented in this [facility] Work Phone: 1(661) 682-481202-05-2025 History of Present illness Narrative* Liz Garcia [...] was changed and irrigated. 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2024 10:54am Presence of stent in coronary artery December, chronic November 10 10:54am [facility] Work Phone: 1([phone] History of Present illness Narrative* Waleska Galdamez [...] CHANGE IN 6 WEEKS documented in this encounterJoint [facility] Work Phone: 1(908) 492-600909-24-2024 Hospital Discharge instructions* Discharge Instructions* Char Zhu RN - 07/25/2024 12:33 PM EDT DO NOT plug catheter until you have seen Dr Zambrano for follow up visit and they have made first catheter change. * Attachments The following attachments cannot be sent through Care Everywhere. * How to Care for Your Suprapubic Urinary Catheter (Tuvaluan) documented in this encounterJoint [facility] Work Phone: [phone]) 224-192609-24-2024 Attending History and physical note* Asmita Zambrano [...] Encouraged fluid intake. F/U SP tube placement [facility] Work Phone: 1(842) 921-766109-24-2024 History and physical note* Asmita Zambrano MD - 07/25/2024 9:03 AM EDT H&P reviewed. The patient was examined and there are no changes to the H&P. Source Note - Asmita Zambrano MD - 07/12/2024 3:30 PM EDT Subjective Patient ID: Rajat Guzmán is a 89 y.o. male. HPI Patient is here for CT results and Lupron injection. Recent sx of prostate cancer. [place] 9. CT showed No evidence of METS [...] F/U SP tube placement documented in this encounterJoint [facility] Work Phone: [phone]) 738-604709-23-2024 Note* Preprocedure Instructions - Inga Ceron RN - 07/24/2024 1:24 PM EDT No outpatient medications have been marked as taking for the 07/25/24 encounter (Hospital Encounter). 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 male. HPI Patient is here for CT results and Lupron injection. Recent sx of prostate cancer. [place] 9. CT showed No evidence of METS [...] F/U SP tube placement documented in this [facility] Work Phone: [phone]) 494-795608-28-2024 History of Present illness Narrative* Asmita Zambrano [...] for Lupron 45mg CT abd/pelvis scheduled given [place] 9 Diet changes for prostate health discussed and educational information given. Pros/Cons of prostatehealth supplements discussed. Treatment options for LUTS reviewed Discussed SP tube-Will schedule Rod placed today for contiunous incontinence Discussed timed voiding. Discussed fluid and caffeine intake Lifestyle change to help prevent UTIs discussed. Encouraged fluid intake. F/U documented in this encounterJoint [facility] Work Phone: [phone]) [phone] History of Present illness Narrative* Waleska GuerramargothayesSAMY - 06/14/2024 1:00 PM EDT Patient ID: [...] 19.90 (05/17/2024) ABNORMAL LANDON. documented in this encounterJoint [facility] Work Phone: [phone] History of Present illness Narrative* Waleska GuerramargothayesSAMY - 05/17/2024 1:00 PM EDT Patient ID: [...] CHECK PVR AND DISCUSS. documented in this encounterJoint [facility] Work Phone: [phone] 526-406306-26-2024 History of Present illness Narrative* Asmita Zambrano MD - 04/26/2024 1:45 PM EDT Subjective Patient ID: Rajat Guzmán is a 89 y.o. male. HPI Patient is here to establish for second opinion for BPH. Hx of incomplete emptying. He was seeing [facility] prior. He states he was asked to learn CIC but he does not want to do this. He does not want permanent rod either. . Rod was placed 6 weeks ago and still has this today. . Hx of TURP last year at [facility]. This did not help urinary sx. He [...] day to check PVR documented in this [facility] Work Phone: 1([phone]) 542-521912-21-2023 Progress note Author Faisal Barth [facility] October 21, 2023 7:23am Note Date/Time October 21, 2023 7:23am [facility] Medical Records Department [address] [place] [address] Progress Note - Urology 10/21/23722 MR#: [id number] Acct: [id number] Name: RAJAT GUZMÁN Rep #:[id number] : 1935 88 From: Faisal Barth MD PCP: Dr. John Noel, DO Status:ADM [facility] Location: [place] [address] Subjective Subjective Status post TURP for regrowth [...] ~ Signed [facility] Work Phone: [phone] 135-206812-20-2023 Discharge summary Author Faisal Barth [facility] October 20, 2023 1:07pm Note Date/Time October 20, 2023 1:07pm [facility] Medical Records Department [address] [place] [address] Instructions for Home/Discharge Instructions 10/20/23 1307 MR#: [id number] Acct: [id number] Name: RAJAT GUZMÁN Rep #:[id number] : 1935 88 From: Faisal Barth MD PCP: Dr. John Noel, DO Status:[facility] Discharge Instructions Diet Discharge Diet: No restrictions Activity Discharge Activity: Return to Normal Activity and May Not Drive (while taking narcotic pain medications.) Dressing / Incision Call your doctor if you observe: Fever of 101 or Higher Follow Up Care Please Follow Up With: Faisal Barth MD When: Call [phone] for an appointment Test Results: Test results [...] Barth MD>Faisal Barth MD CC: Dr. John Noel, DO ~ Signed [facility] Work Phone: 1([phone]) 266-627112-20-2023 History and physical note Author Faisal Barth [facility] October 20, 2023 1:07pm Note Date/Time October 20, 2023 1:07pm [facility] Medical Records Department [address] [place] [address] History & Physical Exam 10/20/23 1306 MR#: [id number] Acct: [id number] Name: RAJAT GUZMÁN Rep #:[id number] : 1935 88 From: Faisal Barth MD PCP: Dr. 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 Faisal Barth MD; Dr. John Noel, DO~ Signed [facility] Work Phone: [phone]) [phone] Procedure [facility] 10-12-2023 Hospital Discharge instructionsAmbulatory Orders* 12 Lead EKG [CV[facility]] Time Frame: 10/12/23, Location: None Selected [facility] Work Phone: 1([phone]) 185-227911-06-2023 Discharge summary Author Manisha Varela [facility] September 06, 2023 3:13pm Note Date/Time September 06, 2023 3 :07pm [facility] Medical Records Department [address] [place] [address] Instructions for Home/Discharge Instructions 09/06/23 1504 MR#: [id number] Acct: [id number] Name: RAJAT GUZMÁN Rep #:[id number] : 1935 88 From: Manisha Varela MD PCP: Dr. John Noel DO Status:ADM [facility] Discharge Instructions Diet Discharge [...] ~ Signed [facility] Work Phone: [phone]) 272-207011-05-2023 Progress note Author Natanael Nowak [facility] September 05, 2023 9:01am Note Date/Time September 05, 2023 9 :01am [facility] Medical Records Department [address] [place] [address] Progress Note - Hospitalist 09/05/23 0900 MR#: [id number] Acct: [id number] Name: RAJAT GUZMÁN Stacia Rep #:[id number] : 1935 88 From: Natanael martinez MD PCP: Dr. John Noel DO Status:ADM [place] Location: [place] [address] Subjective Subjective Doing well, feels better today. [...] Sl. Cloudy, Urine pH 6.0, Ur Specific [place] 1.020, Urine Protein 15 H, Urine Glucose [...] 77.7 H, Lymph % (Auto) 11.1 L, [place] % (Auto) 10.2 H, Eos % (Auto) [...] % (Auto) 64.8, Lymph % (Auto) 21.3, [place] % (Auto) 11.3 H, Eos % (Auto) 1.9, Baso % (Auto) 0.5, Absolute Neuts (auto)5.3, Absolute Lymphs (auto) 1.75, Nucleated RBC % 0 Radiography Diagnostic Testing: Radiology Impression Abdomen/Pelvis CT 09/04/23 16:40 IMPRESSION: Suspect bladder outlet obstruction with mild left ureteral dilatation and hydronephrosis, likely from the prostatic enlargement.. Electronically Signed: Leroy Barrett MD at 17:36 EDT Reading Location ID and State: [id number] / [email or web address] Tel , Service support , Chest X-Ray 09/04/23 16:52 IMPRESSION: No active disease. 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 (3) Cardiomyopathy, [...] DVT: Heparin Charges/Coding Visit Charges Inpatient E&M: 82885 Subs Hosp L2 09/05/23 0901 <Electronically signed by Natanael Nowak MD> Cosigner Signature (if applicable): CC: ~ Signed [facility] Work Phone: [phone]) 549-842811-04-2023 History and physical note Author Manisha Varela [facility] September 04, 2023 6:33pm Note Date/Time September 04, 2023 6 :23pm [facility] Medical Records Department [address] [place] [address] H&P Exam - Hospitalist 09/04/23 1820 MR#: [id number] Acct: [id number] Name: RAJAT GUZMÁN Rep #:[id number] : 1935 88 From: Manisha Varela MD PCP: Dr. 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 Hehad a procedure [...] home, denies other complaints at this time. [facility] Medical History (Updated 09/04/23 @ 18:[address] 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 Cloudy, Urine pH 6.0, Ur Specific [place] 1.020, Urine Protein 15 H, Urine Glucose [...] 77.7 H, Lymph % (Auto) 11.1 L, [place] % (Auto) 10.2 H, Eos % (Auto) [...] 17:36 EDT Reading Location ID and State: [id number] / [email or web address] Tel , Service support , Chest X-Ray 09/04/23 16:52 IMPRESSION: No active disease. 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 John Noel DO; Dr. Manisha Varela MD~ Signed [facility] Work Phone: 1([phone]) 674-843611-04-2023 Discharge summary Author Murray Morgan [facility] September 04, 2023 6:24pm Note Date/Time September 04, 2023 3 :45pm [facility] Medical Records Department [address] [place] [address] Emergency Department Summary 09/04/23 MR#: [id number] Acct: [id number] Name: RAJAT GUZMÁN Rep #:[id number] : 1935 88 From: Murray Morgan MD PCP: Dr. John Noel DO Status:ADM [place] Location: [place] [id number] HPI <MORTEZA Staton - Last Filed: 09/04/23 [...] well however denies any fever or chills. 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 Cloudy Urine pH 6.0 Ur Specific [place] 1.020 Urine Protein 15 H Urine Glucose [...] Reading Location ID and State: [id number] / [email or web address] Tel , Service support , Treatment and [...] Morgan MD - Last Filed: 09/04/23 18:24> [facility] MDM Narrative Medical decision making narrative: Dr. [...] 77.7 H Lymph % (Auto) 11.1 L [place] % (Auto) 10.2 H Eos % (Auto) [...] Sl. Cloudy Urine pH 6.0 Ur Specific [place] 1.020 Urine Protein 15 H Urine Glucose [...] 17:36 EDT Reading Location ID and State: [id number] / [email or web address] Tel , Service support , Chest X-Ray 09/04/23 16:52 IMPRESSION: No active disease. Electronically Signed: Leroy Barrett MD at 17:27 EDT , Management Discussion w/another healthcare provider: Hospitalist and Controlled [employer] Brazer (Dr. Barth) Discharge Plan Triage Chief Complaint: [...] your Primary Care Provider. Call [facility] ([phone]) or report to the closest Emergency Room. Call 911 if necessary. 09/04/231823 <Electronically signed by Murray Morgan MD> Cosigner Signature (if applicable): 09/04/231804 <Electronically signed by Robbi PRO> CC: Dr. John Noel, DO ~ Signed [facility] Work Phone: 1([phone]) 109-973511-04-2023 Discharge summary Author Murray Morgan [facility] September 04, 2023 6:24pm Note Date/Time September 04, 2023 3 :45pm [facility] Medical Records Department [address] [place] [address] Emergency Department Summary 09/04/23 MR#: [id number] Acct: [id number] Name: RAJAT GUZMÁN Rep #:[id number] : 1935 88 From: Murray Morgan MD PCP: Dr. John Noel, DO Status:ADM [place] [facility] [place] [id number] HPI <MORTEZA Staton - Last Filed: 09/04/23 [...] well however denies any fever or chills. 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 Cloudy Urine pH 6.0 Ur Specific [place] 1.020 Urine Protein 15 H Urine Glucose [...] Morgan MD - Last Filed: 09/04/23 18:24> [facility] Narrative Medical decision making narrative: Dr. Morgan: [...] 77.7 H Lymph % (Auto) 11.1 L [place] % (Auto) 10.2 H Eos % (Auto) [...] Sl. Cloudy Urine pH 6.0 Ur Specific [place] 1.020 Urine Protein 15 H Urine Glucose [...] Management Discussion w/another healthcare provider: Hospitalist and [employer]er (Dr. Barth) Discharge Plan Triage Chief Complaint: [...] your Primary Care Provider. Call [facility] ([phone]) or report to the closest Emergency Room. Call 911 if necessary. 09/04/23 1824 <Electronically signed by Murray Morgan MD> Cosigner Signature (if applicable): 09/04/23 1805 <Electronically signed by Robbi Hopkins CAN CUTTER-C> CC: Dr. John Noel, DO ~ Signed [facility] Work Phone: 1([phone]) 614-986102-26-[address] Morgan [facility] December 27, 2022 11:52pm Note Date/Time December 27, 2022 9:33pm [facility] Medical Records Department [address] [place] [address] Emergency Department Summary 12/27/22 MR#: [id number] Acct: [id number] Name: RAJAT GUZMÁN Rep #:[id number] : 1935 87 From: Murray Morgan MD [...] with a mass over the vasectomysite. 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 Cloudy Urine pH 7.0 Ur Specific [place] 1.010 Urine Protein 15 H Urine Glucose [...] Referrals: John Noel DO [Med Staff - Sow Farm Technician] - 2 Days Shailesh Mancini MD [...] your Primary Care Provider. Call [facility] ([phone]) or report to the closest Emergency Room. Call 911 if necessary. 12/27/22 2915 <Electronically signed by Murray Morgan MD> Cosigner Signature (if applicable): CC: Dr. John Noel DO; Dr. Shailesh Mancini MD ~ Signed [facility] Work Phone: [phone]) [phone] Hospital Discharge instructions Additional Instructions Follow-up with Dr. Noel in the next 2 to 3 days. Return to the emergency department with fever, increased pain, new or worsening symptoms.[facility] Work Phone: 1(721) 927-255506-12-2017 Fall risk [email or web address]/12[facility] assessmentWcore[facility] Work Phone: Discharge summary Author Manisha Varela [facility] September 06, 2023 3:14pm Note Date/Time September 06, 2023 3 :14pm [facility] Medical Records Department [address] [place] [address] Discharge Summary 09/06/23 1513 MR#: [id number] Acct: [id number] Name: RAJAT GUZMÁN Rep #:[id number] : 1935 88 From: Manisha Varela MD PCP: Dr. John Noel DO Status:[facility]M [facility] Prov[facility] Date of Admission: 09/04/23 Date of Discharge: 09/06/23 Primary Care Physician: Dr. 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 Hehad a procedure [...] Varela; Natanael Nowak Instructions Patient Instructions: ED Rdo Catheter, Care Additional Instructions / Restrictions: DISCHARGE [...] Self Care Charges/Coding Visit Charges Inpatient E&M: 77828 Disch Hosp >30min 09/06/23 1514 <Electronically signed by Manisha Varela MD> Cosigner Signature (if applicable): CC: Dr. John Noel DO; Dr. Manisha Varela MD~ Signed [facility] Work Phone: Discharge summary Author Natanael Nowak [facility] Note Date/Time May 28, 2025 3:57 pm [facility] Medical Records Department [address] [place] [address] Discharge Summary 05/28/25 1553 MR#: [id number] Acct: [id number] Name: RAJAT UGZMÁN Rep #:[id number] : 1935 89 From: Natanael martinez MD PCP: Dr. John Noel DO Status:ADM IN Location: [place] [address] Providers Date of Admission: 05/25/25 Primary Care Physician: Dr. John Noel DO Reason For Visit: UTI Diagnosis Discharge Diagnosis (1) Catheter-associated urinary tract infection: Status: Acute Code(s): T83.511A - Infection and inflammatory reaction due to indwelling urethral catheter, initial encounter; N39.0 - Urinary tract infection, site not specified (2) Debility: Status: Acute Code(s): R53.81 - Other malaise (3) Protein calorie malnutrition: Status: Acute Code(s): E46 - Unspecified protein-calorie malnutrition Medications at Discharge Home Medications aspirin 81 mg tablet,delayed release (Adult Low Dose Aspirin) 81 mg PO DAILY 05/23/24 nitroglycerin 0.4 mg sublingual tablet 0.4 mg sublingual Q5M PRN Chest Pain #25 tabs 05/23/24 tamsulosin 0.4 mg capsule 0.4 mg PO QDAY 05/23/24 simvastatin 20 mg tablet 20 mg PO QHS for cholesterol #90 TABLETS 08/23/24 carvedilol 6.25 mg tablet 6.25 mg PO BID #60 tabs 11/10/24 prednisone 5 mg tablet 2 mg PO QDAY 11/10/24 sacubitril 24 mg-valsartan 26 mg tablet (Entresto) 1 tab PO BID #60 tabs 03/14/25 diphenhydramine 25 mg-acetaminophen 500 mg tablet (Tylenol PM Extra Strength) 2 tab PO QHS 04/28/25 melatonin 10 mg tablet 20 mg PO QHS sleep 04/28/25 oxybutynin chloride 5 mg tablet 5 mg PO DAILY 04/28/25 prednisone 1 mg tablet 2 mg PO DAILY 05/25/25 fosfomycin tromethamine 3 gram oral packet 1 packet PO QODAY 3 doses #3 ea 05/28/25 Hospital Course Operations None Procedures None Summary of Care Provided Minutes Spent on Discharge: 35 Hospital Course: Per HPI: RAJAT GUZMÁN, is a 89 M who presents due to abnormal urine culture. Patient was admitted at [facility] from the with a UTI. He left AGAINST MEDICAL ADVICE before the culture results were available. Patient was discharged with cephalexin. Urine culture came back positive for non-ESBL E. coli, Pseudomonas and Enterococcus. The Enterococcus was low CFU's of 1000 and 10,000. He had an outpatient urine culture through [facility] that grew out ESBL E. coli sensitive only to imipenem, meropenem, piperacillin/tazobactam and Bactrim. Patient was notified of this and instructed to come to the emergency room. In emergency room, patient did receive pip-tazo based on the prior culture results. Patient does since going home has not very well and he is just getting weaker, potential going days without eating. Is also been having some loose stools. Patient was seen with his daughter at bedside. Hospital Course: 1. Catheter associated UTI with ESBL E. coli/debility?89-year-old male had beenpreviously managed in the hospital from the and 29 April with a UTI, at thattime he left AGAINST MEDICAL ADVICE and he had cultures with multiple different organisms growing in including Pseudomonas, Enterococcus, and a nonactive ESBL E. coli. He continued to have symptomatic issues during the early period of May and he went to [facility] where he had a urine culture which grew an ESBL E. coli and presented to this hospital for treatment. He was started onZosyn as it was sensitive per report and he has been doing well. He was evaluated by physical therapy and Occupational Therapy who felt that he could goback to the assisted living. Given the success rate with fosfomycin I will discharge him on p.o. fosfomycin to complete course for his UTI. 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 I discussed with him the plan for discharge and he expressed understanding of the risk and benefits of going home and would like to go home today. He doeshave protein calorie malnutrition and I discussed with him the need to eat he says that he struggles because he does not have much of an appetite, we did discuss strategies including having multiple small meals throughout the day. 2. Coronary artery disease status post stent, chronic systolic CHF, essential hypertension, hyperlipidemia, BPH with obstruction are chronic medical conditions which complicate his care. His home medications were continued whereappropriate Physical Exam Narrative General: Alert, Oriented x3, [...] to Palpation of Joints or Extremities Neurological: No focal neurological deficits, moves all extremities, sensation intact Psych/Mental Status: Normal Affect, Appropriate Medical Records Data Medical Nutrition Assessment Dietitian: Malnutrition Criteria Met Start: 05/26/25 15:07 Freq: Status: Active Protocol: Document 05/26/25 15:08 [facility] (Rec: 05/26/25 15:08 [facility] [id number]) Nutrition Malnutrition Evidence of Yes Malnutrition Exists Malnutrition (severe Chronic ): Evidenced By Suboptimal Energy Intake (Severe),Weight Loss (Severe), Physical Changes (Moderate),Physical Changes (Severe) Clinical Problem Chronic Disease or Condition Related Malnutrition Etiology related to physiological changes decreasing appetite and oral intakes Signs/Symptoms as evidenced by significant weight loss of 10% of his body weight, or 12lb, since 04/27/25 weight of [id number]. 376oz as well as estimated oral intakes meeting less than 50% of estimated nutrient needs for > 1 month and visual evidence of moderate to severe muscle and fat wasting (buccal, occular, clavicles). Status Active Problem Recommendation Dietitian Continue with Regular - General diet for liberalization Recommendations/ . Changes Will trial Magic Cup with meals. Provided encouragement to request snacks in between meals to help increase oral intakes. High Calorie, High Protein Nutrition Therapy reviewed and provided. Will continue to follow, monitor oral intakes and modify nutrition interventions as needed. Weight / BMI Weight Weight: 107 lb 12.897 oz Body Mass Index (BMI) 19.7 ABG / Lab / Microbiology Data 05/28/25 06:14 05/28/25 06:14 Laboratory: Laboratory Results - last 24 hr 05/28/25 06:14: WBC 4.9, RBC 3.54 L, Hgb 10.5 L, Hct 31.5 L, MCV 89.0, MCH 29.7,MCHC 33.3, RDW Std Deviation 45.0 H, RDW Coeff of Arleen 13.7, Plt Count 189, MPV 10.5, Immature Gran % (Auto) 0.200, Neut % (Auto) 51.8, Lymph % (Auto) 34.2, Sibley % (Auto) 10.5 H, Eos % (Auto) 2.9, Baso % (Auto) 0.4, Absolute Neuts (auto) 2.5, Absolute Lymphs (auto) 1.66, Nucleated RBC % 0, Sodium 140, Potassium 3.6, Chloride 107, Carbon Dioxide 22.5, Anion Gap 10, BUN 16, Creatinine 0.70, Estim Creat Clear Calc 43.30 L, Est GFR (MDRD) Non-Af 88, BUN/Creatinine Ratio 22.9 H,Glucose 100 H, Calcium 8.6 Microbiology: Microbiology 05/26/25 04:45 Urine Catheter - Rod Urine Culture - Final GNR lactose hydrate control tender 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 05/25/25 17:00 Blood Culture (Wb) - Right Forearm Blood Culture - Preliminary No growth in 48 hours. D/C Instructions Call your doctor if you observe: Fever of 101 or Higher, Shortness of breath, Dizziness, Fainting spells, Swelling in the ankles, Chest pain and Increased palpitations (irregular heartbeat) DC O2, CPAP, BIPAP Needs Home O2 Discharge instructions: No Meaningful Use Info Meaningful Use Meaningful Use Diagnoses (Choose all that apply): None applicable Discharge Plan Admission Admit Date/Time: 05/25/25 20:02 Attending Provider: Natanael Nowak Primary Care Provider: John Noel Consulting Providers: Suraj Garg Discharge Orders/Prescriptions Prescriptions: New fosfomycin tromethamine 3 gram packet 1 packet PO QODAY Qty: 3 0RF Continued tamsulosin 0.4 mg capsule 0.4 mg PO QDAY aspirin [Adult Low Dose Aspirin] 81 mg tablet,delayed release (DR/EC) 81 mg PO DAILY nitroglycerin 0.4 mg tablet, sublingual 0.4 mg SUBLINGUAL Q5M PRN (Reason: Chest Pain) Qty: 25 3RF prednisone 5 mg tablet 2 mg PO QDAY carvedilol 6.25 mg tablet 6.25 mg PO BID Qty: 60 3RF Rx Instructions: must administer with a meal/food oxybutynin chloride 5 mg tablet 5 mg PO DAILY melatonin 10 mg tablet 20 mg PO QHS diphenhydramine-acetaminophen [Tylenol PM Extra Strength] 25-500 mg tablet 2 tab PO QHS prednisone 1 mg tablet 2 mg PO DAILY simvastatin 20 mg tablet 20 mg PO QHS Qty: 90 3RF Entresto 24-26 mg tablet 1 tab PO BID Qty: 60 11RF Discontinued cephalexin 500 mg capsule 500 mg PO Q6 Qty: 28 0RF Referrals / Follow Up: John Noel DO [Primary Care Provider] - Within 1 Week Disposition Disposition (needs filled in before D/C Order can be placed): Assisted Living Charges/Coding Visit Charges Inpatient E&M: 83124 Disch Hosp >30min 05/28/25 1557 <Electronically signed by Natanael Nowak MD> Cosigner Signature (if applicable): CC: Dr. John Noel DO; Dr. Natanael Nowak MD~ Signed [facility] Work Phone: Evaluation note* Diagnosis Onset Date Resolution Status Cardiomyopathy, ischemic chr onic Chronic systolic congestive heart failure chronic Dual ICD (implantable 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 History of placement of internal cardiac defibrillator chronic [facility] Work Phone: Evaluation note* Diagnosis Onset Date Resolution Status Cardiomyopathy, ischemic chr onic Chronic systolic congestive heart failure chronic Dual ICD (implantable 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 History of placement of inte rnal cardiac defibrillator chronic Atherosclerotic heart diseas e of [place] coronary artery without angina pectoris chronic Cardiomyopathy, ischemic chr onic Dyspnea chronic Essential hypertension chron ic History of placement of inte rnal cardiac defibrillator chronic Pure hypercholesterolemia alida Stented coronary artery December, [facility] Work Phone: Evaluation note* Diagnosis Onset Date Resolution Status Atherosclerotic heart diseas e of [place] coronary artery without angina pectoris chronic Cardiomyopathy, ischemic chr onic Dyspnea chronic Essential hypertension chron ic History of placement of inte rnal cardiac defibrillator chronic Pure hypercholesterolemia alida Stented coronary artery December, jossic Cardiomyopathy, ischemic chr onic Chronic systolic congestive heart failure chronic Dual ICD (implantable 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 History of placement of inte rnal cardiac defibrillator [facility] Work Phone: Evaluation note* Diagnosis Onset Date Resolution Status Cardiomyopathy, ischemic chr onic Chronic systolic congestive heart failure chronic Dual ICD (implantable 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 Atherosclerotic heart diseas e of [place] coronary artery without angina pectoris chronic Cardiomyopathy, ischemic chr onic Essential hypertension chron ic History of placement of inte rnal cardiac defibrillator chronic Pure hypercholesterolemia alida Stented coronary artery December, [facility] Work Phone: Evaluation note* Diagnosis Onset Date Resolution Status Dual ICD (implantable 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 History of placement of internal cardiac defibrillator [facility] Work Phone: Evaluation note* Diagnosis Onset Date Resolution Status Cardiomyopathy, ischemic chr onic Chronic systolic congestive heart failure chronic Dual ICD (implantable 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 Cardiomyopathy, ischemic chr onic Chronic systolic congestive heart failure chronic Coronary artery disease 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 Dual ICD (implantable 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 Dyslipidemia chronic Essential hypertension chron ic Presence of stent in coronary artery December, [facility] Work Phone: Evaluation noteNo assessment information available [facility] Work Phone: Evaluation note* Diagnosis Onset Date Resolution Status Acute dehydration acute Acute metabolic encephalopathy acute SINGH (acute kidney injury) [place] Episode of generalized weakness acute Urinary retention acute UTI (urinary tract infection) acute Atherosclerotic heart diseas e of [place] coronary artery without angina pectoris chronic Cardiomyopathy, 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 [facility] Work Phone: Evaluation note* Diagnosis Onset Date Resolution Status Urinary retention acute UTI (urinary tract infection) acute Atherosclerotic heart diseas e of [place] coronary artery without angina pectoris chronic Cardiomyopathy, 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 Acute dehydration resolved Acute metabolic encephalopathy resolved SINGH (acute kidney injury) re solved Episode of generalized weakness resolved [facility] Work Phone: Evaluation note* Diagnosis Onset Date Resolution Status Urinary retention acute UTI (urinary tract infection) acute Atherosclerotic heart diseas e of [place] coronary artery without angina pectoris chronic Cardiomyopathy, [...] December, chronic [facility] Work Phone: Evaluation note* Diagnosis Benign prostatic hyperplasia with lower urinary tract symptoms, symptom details unspecified Retention of urine Unspecified retention of urine Nocturia Abnormal digital rectal exam documented in this encounter [facility] Work Phone: Evaluation note* Diagnosis Incomplete bladder emptying- Primary documented in this encounter [facility] Work Phone: Evaluation note* Diagnosis Elevated PSA- Primary Elevated prostate specific antigen (PSA) documented in this encounter [facility] Work Phone: Evaluation note* Diagnosis Elevated PSA Elevated prostate specific antigen (PSA) Abnormal digital rectal exam Malignant neoplasm of prostate (Multi) Malignant neoplasm of prostate Retention of urine Unspecified retention of urine documented in this encounter [facility] Work Phone: Evaluation note* Diagnosis Malignant neoplasm of prostate (Multi) Malignant neoplasm of prostate documented in this encounter [facility] Work Phone: Evaluation note* Diagnosis Malignant neoplasm of prostate (Multi) Malignant neoplasm of prostate Abnormal digital rectal exam Elevated PSA Elevated prostate specific antigen (PSA) Retention of urine Unspecified retention of urine Urinary retention- Primary Unspecified retention of urine documented in this encounter [facility] Work Phone: Evaluation note* Diagnosis Urinary retention- Primary Unspecified retention of urine Urinary retention Unspecified retention of urine documented in this encounter [facility] Work Phone: [phone] note* Diagnosis Urinary retention Unspecified retention of urine documented in this encounter [facility] Work Phone: Evaluation note* Diagnosis Urinary retention Unspecified retention of urine Bladder spasm Hypertonicity of bladder Malignant neoplasm of prostate (Multi) Malignant neoplasm of prostate documented in this encounter [facility] Work Phone: Evaluation note* Diagnosis Bladder spasms- Primary Hypertonicity of bladder Urinary retention Unspecified retention of urine documented in this encounter [facility] Work Phone: Evaluation note* Diagnosis Urinary retention Unspecified retention of urine documented in this encounter [facility] Work Phone: Evaluation note* Diagnosis Urinary retention Unspecified retention of urine documented in this encounter [facility] Work Phone: Evaluation note* Diagnosis Prostate cancer (Multi)- Primary Malignant neoplasm of prostate Urinary retention Unspecified retention of urine Bladder spasm Hypertonicity of bladder Malignant neoplasm of prostate (Multi) Malignant neoplasm of prostate Urinary retention Unspecified retention of urine documented in this encounter [facility] Work Phone: History and physical note Author Manisha Varela [facility] September 04, 2023 6:33pm Note Date/Time September 04, 2023 6 :23pm [facility] Medical Records Department [address] [place] [address] H&P Exam - Hospitalist 09/04/23 1820 MR#: [id number] Acct: [id number] Name: RAJAT GUZMÁN Rep #:[id number] : 1935 88 From: Manisha Varela MD PCP: Dr. John Noel, DO Status:ADM [place] Location: [facility]3 [id number] HPI - General General Date of Admission: 09/04/23 Date of Service: 09/04/23 Chief Complaint: Gen weakness, abd pain, confusion HPI Narrative RAJAT GUZMÁN, is a 88-year-old male history of coronary artery disease, heart failure with reduced ejection fraction with dual AICD, BPH, hypertension presented to [facility] 09/04/2023 with generalized weakness. Hehad a procedure [...] home, denies other complaints at this time. [facility] Medical History (Updated 09/04/23 @ 18:[address] 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 Cloudy, Urine pH 6.0, Ur Specific [place] 1.020, Urine Protein 15 H, Urine Glucose [...] 77.7 H, Lymph % (Auto) 11.1 L, Sibley % (Auto) 10.2 H, Eos % (Auto) [...] 17:36 EDT Reading Location ID and [facility]: [facility] [place] Tel , Service support , Chest X-Ray 09/04/23 16:52 IMPRESSION: No active disease. Electronically Signed: Leroy Barrett MD at 17:27 EDT , Assessment & Plan Assessment/Plan (1) SINGH (acute kidney injury): (2) Atherosclerotic heart disease of [place] coronary artery without angina pectoris: QUALIFIERS: [place] vs. 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 (3) Cardiomyopathy, [...] Varela MD Charges/Coding Visit Charges Inpatient E&M: 33312 Init Hosp L2 09/04/23 1833 <Electronically signed by Manisha Varela MD> Cosigner Signature (if applicable): CC: Dr. John Noel DO; Dr. Manisha Varela MD~ Signed [facility] Work Phone: Hospital Discharge instructions Additional Instructions Implant Used?: [facility] Work Phone: Progress note Author Cheryl Ochoa [facility] Note Date/Time April 29, 2025 12:5 7pm [facility] Medical Records Department [address] [place] [address] Progress Note - Hospitalist 04/29/25 1251 MR#: [id number] Acct: [id number] Name: RAJAT GUZMÁN Rep #:[id number] : 1935 89 From: Cheryl Ochoa DO PCP: Dr. John Noel DO Status:ADM IN [facility] Note Mr. Guzmán is an 89-year-old white male who presented to the emergency department at [facility] on 04/27/2025 with a chief complaint of [...] ~ Signed [facility] Work Phone: Revehu for referral (narrative)No reason for referral information availableWC[facility] Work Phone: Reason for visit Narrative* Auth/Cert Specialty Diagnoses / Procedures Referred By Krys rangel Referred To Contact Diagnoses Urinary retention Urinary retention [R33.9] Procedures ME CYSTOSTOMY CYSTOTOMY W/DRAINAGE Cystotomy Suprapubic Asmita Zambrano MD [address] [place] [address] [address] Referral ID Status Reason Start Date Expiration Date Visits Re quested Visits Authorized [id number] 1 1 [facility] Work Phone: Reason for visit Narrative* /Urology (Routine) - Authorized Specialty Diagnoses / Procedures Referred By Krys rangel Referred To Contact Urology Diagnoses Other retention of urine Procedures ME CHANGE CYSTOSTOMY TUBE SIMPLE [facility] [address] [facility] [address] [place] [address] Phone: tel: fax: Asmita Zambrano MD [address] [place] [address] Phone: tel: fax: Referral ID Status Reason Start Date Expiration Date V isits Requested Visits Authorized [id number] Authorized 11/28/2024 11/28/2025 1 1 [facility] Work Phone: Ressm rehab for visit Narrative* Consultation (Routine) - Authorized Specialty Diagnoses / Procedures Referred By Krys rangel Referred To Contact Urology Diagnoses Urinary retention Procedures Follow Up In Urology Jian Mcdermott MD [facility] [address] [place] [address] Phone: tel: fax: Referral ID Status Reason Start Date Expiration Date V isits Requested Visits Authorized [id number] Authorized 04/09/2025 04/09/2026 1 1 [facility] Work Phone: Advance Directives No Advanced Directives Records FoundDocuments on File Type Date Recorded 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 Advance Directive(s) 06/10/2016 3:34 PM Advance Directive Response Recorded Date/ Time Advance Directives Yes September 6:49pm Living Will No November 15 7:07pm Power of Letter Of Credit Document Examiner No November 15, 2020 7:07pm Advance Directive Response Recorded Date/ Time Advance Directives Yes September 5:49pm Living Will No November 15 6:07pm Power of Letter Of Credit Document Examiner No November 15, 2020 6:07pm Advance Directive Response Recorded Date/ Time Advance Directives Yes September 5:49pm Living Will No October 16 1:05pm Power of Letter Of Credit Document Examiner No October 16, 2022 1:05pm Advance Directive Response Recorded Date/ Time Name of Medical Power of Letter Of Credit Document Examiner unknown December 27, 2022 9:53pm Advance Directives Yes September 5:49pm Living Will Yes December 27, 2 023 9:53pm Power of Letter Of Credit Document Examiner Yes December 27, 2022 9:53pm Advance Directive Response Recorded Date/ Time Name of Medical Power of Letter Of Credit Document Examiner unknown December 27, 2022 10:53pm Name of Medical Power of Letter Of Credit Document Examiner UNKNOWN January 06, 2023 10:21am Advance Directives Yes September 6:49pm Living Will No January 06, 2023 10:21am Power of Letter Of Credit Document Examiner Yes January 06 10:21am Advance Directive Response Recorded Date/ Time Advance Directives Yes September 6:49pm Living Will No January 06, 2023 10:21am Power of Letter Of Credit Document Examiner Yes January 06 10:21am Advance Directive Response Recorded Date/ Time Advance Directives Yes September 6:49pm Living Will No September 04 4:38pm Power of Letter Of Credit Document Examiner No September 04, 2023 4:38pm Advance Directive Response Recorded Date/ Time Advance Directives Yes September 5:49pm Living Will No September 04 7:17pm Power of Letter Of Credit Document Examiner No September 04, 2023 7:17pm Advance Directive Response Recorded Date/ Time Advance Directives Yes September 5:49pm Living Will No October 20 023 4:11pm Power of Letter Of Credit Document Examiner No October 20, 2023 4:11pm Advance Directive Response Recorded Date/ Time Advance Directives Yes September 5:49pm Living Will No October 11 2 023 1:45pm Power of Letter Of Credit Document Examiner No October 11, 2023 1:45pm Date Activated [...] Do you have a Healthcare Power of Letter Of Credit Document Examiner? Yes March 30, 2024 3:36am Living Will Yes December 16, 2 025 4:11pm Do you have a Healthcare Power of Letter Of Credit Document Examiner? Yes December 16, 2024 4:11pm Name of Medical Power of Letter Of Credit Document Examiner boogie bravo and michelle campos December 16, 2024 4:11pm Advance Directives Yes September 6:49pm Advance Directive Response Recorded Date/ Time Do you have a Healthcare Power of Letter Of Credit Document Examiner? No April 27, 2025 8:28pm Advance Directives Yes September 6:49pm Advance Directive Response Recorded Date/ Time Do you have a Healthcare Power of Letter Of Credit Document Examiner? Yes April 28, 2025 4:01pm Do you have a Healthcare Power of Letter Of Credit Document Examiner? No April 27, 2025 8:28pm Advance Directives Yes September 6:49pm Advance Directive Response Recorded Date/ Time Do you have a Healthcare Power of Letter Of Credit Document Examiner? Yes April 28, 2025 8:32pm Name of Medical Power of Letter Of Credit Document Examiner BEBO DTR April 28, 2025 8:32pm Do you have a Healthcare Power of Letter Of Credit Document Examiner? No April 27, 2025 8:28pm Advance Directives Yes September 6:49pm Advance Directive Response Recorded Date/ Time Do you have a Healthcare Power of Letter Of Credit Document Examiner? Yes April 28, 2025 8:32pm Name of Medical Power of Letter Of Credit Document Examiner BEBO DTR April 28, 2025 8:32pm Do you have a Healthcare Power of Letter Of Credit Document Examiner? Yes May 25, 2025 4:14pm Do you have a Healthcare Power of Letter Of Credit Document Examiner? No April 27, 2025 8:28pm Advance Directives Yes September 6:49pm Advance Directive Response Recorded Date/ Time Do you have a Healthcare Pow er of Letter Of Credit Document Examiner? Yes April 28, 2025 8:32pm Name of Medical Power of Letter Of Credit Document Examiner BEBO DTR April 28, 2025 8:32pm Do you have a Healthcare Pow er of Letter Of Credit Document Examiner? Yes May 25, 2025 9:28pm Name of Medical Power of Letter Of Credit Document Examiner boogie staples May 25, 2025 9:28pm Do you have a Healthcare Pow er of Letter Of Credit Document Examiner? No April 27, 2025 8:28pm Advance Directives [...] internal cardiac defibrillator Atherosclerotic heart disease of [place] coronary artery without angina pectoris Cardiomyopathy, ischemic Dyspnea Essential hypertension History of placement of internal cardiac defibrillator Pure hypercholesterolemia Stented coronary artery Chief Complaint 6 M FU 3 mos remote ICD f/u Dizziness, on Entresto L.Lorson Reason for Visit Atherosclerotic hear t disease of [place] coronary artery without angina pectoris Cardiomyopathy, ischemic [...] cardioverter-defibrillator) in place Atherosclerotic heart disease of [place] coronary artery without angina pectoris Cardiomyopathy, ischemic Essential hypertension History of placement of internal cardiac defibrillator Pure hypercholesterolemia Stented coronary artery Chief Complaint 3 mos remote ICD f/u 1 Y FU cysto with dilation of urethral stricture Reason for Visit Cardiomyopathy, isch emic Chronic systolic congestive heart failure 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 Atherosclerotic heart disease of [place] coronary artery without angina pectoris Cardiomyopathy, ischemic [...] (urinary tract infection) Atherosclerotic heart disease of [place] 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 Lorson E ORDERS INT LABS PSA UTI, SINGH, GENERAL WEAKNESS UTI, SINGH, GENERAL WEAKNESS Reason for Visit Acute dehydration Acute metabolic encephalopathy SINGH (acute kidney injury) Episode of generalized weakness Urinary retention UTI (urinary tract infection) Atherosclerotic heart disease of [place] coronary artery without angina pectoris Cardiomyopathy, ischemic [...] (urinary tract infection) Atherosclerotic heart disease of [place] coronary artery without angina pectoris Cardiomyopathy, 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 Chief Complaint BP Check per L. Lors on E ORDERS INT LABS PSA UTI, SINGH, GENERAL WEAKNESS UTI, SINGH, GENERAL WEAKNESS UTI, SINGH, GENERAL WEAKNESS Reason for Visit Urinary retention UTI (urinary tract infection) Atherosclerotic heart disease of [place] coronary artery without angina pectoris Cardiomyopathy, ischemic [...] (urinary tract infection) Atherosclerotic heart disease of [place] coronary artery without angina pectoris Cardiomyopathy, ischemic [...] (urinary tract infection) Atherosclerotic heart disease of [place] coronary artery without angina pectoris Cardiomyopathy, ischemic [...] (urinary tract infection) Atherosclerotic heart disease of [place] coronary artery without angina pectoris Cardiomyopathy, ischemic [...] Acute UTI April 29, 2025 7:15 am Chief Complaint Admit Date Pacer Check Remote March 02, 2025 4:00am 4 M FU March 12, 2025 2:04p m N/V April 27, 2025 8:05 pm NAUSEA/VOMITING/UTI April 29, 2025 7:15 am NAUSEA/VOMITING/UTI April 29, 2025 12:5 1pm XRAY ABDOMEN May 09, 2025 12:09 pm UTI May 25, 2025 8:02 pm C/O May 25, 2025 8:08 pm Reason for Visit Admit Date Cardiomyopathy, [...] Acute UTI April 29, 2025 7:15 am Acute cough May 25, 2025 8:02 pm Catheter-associated urinary tract infect ion May 25, 2025 8:02pm Debility May 25, 2025 8:02 pm Protein calorie malnutrition May 25, 2025 8:02pm Chief Complaint Admit Date Pacer Check Remote March 02, 2025 4:00am 4 M FU March 12, 2025 2:04p m N/V April 27, 2025 8:05 pm NAUSEA/VOMITING/UTI April 29, 2025 7:15 am NAUSEA/VOMITING/UTI April 29, 2025 12:5 1pm XRAY ABDOMEN May 09, 2025 12:09 pm UTI May 25, 2025 8:02 pm C/O May 25, 2025 8:08 pm Urinary tract infection May 26, 2025 8:29am Urinary tract infection May 27, 2025 8:52am Urinary tract infection May 28, 2025 8:10am Chief Complaint Admit Date Pacer Check Remote March 02, 2025 4:00am 4 M FU March 12, 2025 2:04p m N/V April 27, 2025 8:05 pm NAUSEA/VOMITING/UTI April 29, 2025 7:15 am NAUSEA/VOMITING/UTI April 29, 2025 12:5 1pm XRAY ABDOMEN May 09, 2025 12:09 pm UTI May 25, 2025 8:02 pm C/O May 25, 2025 8:08 pm Urinary tract infection May 26, 2025 8:29am Urinary tract infection May 27, 2025 8:52am Urinary tract infection May 28, 2025 8:10am Pacer Check Remote June 22, 2025 2: 00am Reason for Visit Admit Date Cardiomyopathy, ischemic [...] Acute UTI April 29, 2025 7:15 am Acute cough May 25, 2025 8:02 pm Debility May 25, 2025 8:02 pm Protein calorie malnutrition May 25, 2025 8:02pm Catheter-associated urinary tract infect ion May 25, 2025 8:02pm Family History No Family History Records Found [...] pelvis w IV contrast Asmita Zambrano MD [facility] [place] [id number] Referral ID Status Reason Start Date Expiration Date Visits Requested Visits Authorized [id number] Pending Review Perform Procedure 04/26/2024 04/26/2025 1 1 Specialty Diagnoses / Procedures Referred By Krys rangel Referred To Contact Radiology Diagnoses Malignant neoplasm of prostate (Multi) Procedures CT abdomen pelvis [place] [address] [place] [id number] Referral ID Status Reason Start Date Expiration Date Visits Requested Visits Authorized [id number] Pending Review Perform Procedure 06/28/2024 06/28/2025 1 1 Referral ID Status Reason Start Date Expiration Date Visits Requested Visits Authorized [id number] Authorized Perform Procedure 06/28/2024 06/28/2025 1 1 Specialty Diagnoses / Procedures Referred By Krys rangel Referred To Contact Diagnoses Malignant neoplasm of prostate (Multi) Asmita Zambrano MD [address] [place] [id number] Referral ID Status Reason Start Date Expiration Date V isits Requested Visits Authorized [id number] Pending Review 07/12/2024 07/12/2025 1 1 Additional Source Comments Source Comments (unrecognize d section and content) In the event this informatio n is protected by the Federal Confidentiality of Alcohol and Drug Abuse Patient Records regulations: The Federal rules restrict any use of the information to criminally investigate or prosecute any alcohol or drug abuse patient.[facility] Reason for Visit (unrecogniz ed section and content) Reason Onset Date Comments Refill Request 10/18/2011 Reason Comments CYSTOSCOPY Reason Comments PROSTATE BIOPSY Reason Comments TRUS RESULTS Specialty Diagnoses / Procedures Referred By Contac t Referred To Contact Radiology Diagnoses Malignant neoplasm of prostate (Multi) Procedures CT abdomen pelvis w IV contrast Asmita Zambrano MD [address] [place] [id number] Referral ID Status Reason Start Date Expiration Date Visits Requested Visits Authorized [id number] Authorized Perform Procedure 06/28/2024 06/28/2025 1 1 Reason Comments LUPRON AND CT RESULTS Specialty Diagnoses / Procedures Referred By Contac t Referred To Contact Diagnoses Malignant neoplasm of prostate (Multi) Asmita Zambrano MD [address] [place] [phone] Referral ID Status Reason Start Date Expiration Date V isits Requested Visits Authorized [id number] Pending Review 07/12/2024 07/12/2025 1 1 Reason Comments ROD CHANGE Specialty Diagnoses / Procedures Referred By Contac t Referred To Contact Urology Diagnoses Retention of urine, unspecified Procedures ME CHANGE CYSTOSTOMY TUBE SIMPLE [address] [address] Phone: tel: fax: Asmita Zambrano MD [facility] [place] [address] Phone: tel: fax: Referral ID Status Reason Start Date Expiration Date V isits Requested Visits Authorized [id number] Authorized 12/27/2024 12/27/2025 1 1 Goals (unrecognized [...] Status Dates Sloane Grubbs Active Dr. John Noel DO Primary Care [...] Inactive Member Role Status Dates Dr. Henok Vlilarreal MD Attending Provider, Emergency Provi stevie Active Dr. John Noel DO Primary Care Provider Active Team Status: Inactive Member Role Status Dates Dr. John Noel DO Primary Care Prov ider, Attending Provider, Referring Provider Active Team Status: Inactive Member Role Status Dates Dr. John Noel DO Primary Care Provider, Referrin g Provider Active Alexia Hendricks Attending Provider Active Team Status: Inactive Member Role Status Dates Dr. John Noel DO Primary Care Provider Active Cynthia Bowen CAN CUTTER, CAN CUTTER-C Attending Provider, Referring P alana Active Team [...] Inactive Member Role Status Dates Dr. John oNel DO Primary Care Provider Active Dr. Faisal Barth MD Admit Provid er, Attending Provider, Referring Provider Active Team Status: Inactive Member Role Status Dates Dr. John Noel DO Primary Care Provider Active Dr. Zacarias Valdes MD Attending Provider, Referring Prov ider Active Team Status: Inactive Member Role Status Dates Dr. John Noel DO Primary Care Provider, Referrin g Provider Active Cynthia Bowen CAN CUTTER, CAN CUTTER-C Attending Provider Active Team Status: Inactive Member Role Status Dates Dr. John Noel DO Primary Care Provider Active Dr. Timoteo Mullins MD Attending Provider, Referring Pro vider Active Board Design Engineer Relationship Specialty Start Date End Date SadieJohn suarezDO [address] [place] [address] PCP - General Family Medicine 03/14/24 Board Design Engineer Relationship Specialty Start Date End Date Sadie, John Matos DO [address] [place] [address] PCP - General Family Medicine 03/14/24 Board Design Engineer Relationship Specialty Start Date End Date Sadie, John Matos DO [address] [place] [address] PCP - General Family Medicine 03/14/24 Board Design Engineer Relationship Specialty Start Date End Date John Noel DO [address] [place] [phone] PCP - General Family Medicine 03/14/24 Board Design Engineer Relationship Specialty Start Date End Date John Noel DO [address] [place] [phone] PCP - General Family Medicine 03/14/24 Board Design Engineer Relationship Specialty Start Date End Date John Noel DO [address] [place] [phone] PCP - General Family Medicine 03/14/24 Board Design Engineer Relationship Specialty Start Date End Date John Noel DO [address] [place] [phone] PCP - General Family Medicine 03/14/24 Board Design Engineer Relationship Specialty Start Date End Date John Noel DO [address] [place] [phone] PCP - General Family Medicine 03/14/24 Board Design Engineer Relationship Specialty Start Date End Date John Noel DO [address] [place] [address] PCP - General Family Medicine 03/14/24 Board Design Engineer Relationship Specialty Start Date End Date John Noel DO [address] [place] [phone] PCP - General Family Medicine 03/14/24 Board Design Engineer Relationship Specialty Start Date End Date John Noel DO [address] [facility] [address] [place] [phone] PCP - General Family Medicine 03/14/24 Team [...] February 05, 2025 End: February 05, 2025 Board Design Engineer Relationship Specialty Start Date End Date John Noel DO [address] [place] [address] PCP - [facility] Medicine 03/14/24 Board Design Engineer Relationship Specialty Start Date End Date SadieJohn suarez Shawna [address] [place] [address] PCP - [facility] 03/14/24 Team Status: Active Member Role/Relationship Status [...] 2025 End: March 12, 2025 Cynthia Bowen CAN CUTTER, CAN CUTTER-C Attending Provider Active Start: March 12, 2025 End: March 12, 2025 Team Status: Active Member Role/Relationship Status Dates Dr. John Nole DO Primary Care Provider Active Start: April [...] 2025 End: March 12, 2025 Cynthia Bowen NP, CAN CUTTER-C Attending Provider Active Start: March 12, 2025 [...] May 09, 2025 End: May 09, 2025 Team Status: Active Member Role/Relationship Status Dates Dr. John Noel DO Primary Care Provider Active Start: May 25, 2025 Dr. Zackary Matthews MD Emergency Provider Active Start: May 25, 2025 Dr. Suraj Garg DO Admit Provider Active Star t: May 25, 2025 Dr. Suraj Garg DO Attending Provider Active Start: May 25, 2025 Team Status: Active Member Role/Relationship Status Dates Dr. John Noel DO Primary Care Provider Active Start: May 25, 2025 Dr. Zackary Matthews MD Emergency Provider Active Start: May 25, 2025 Dr. Suraj Garg DO Attending Provider Active Start: May 25, 2025 Team Status: Inactive Member Role/Relationship Status Dates Dr. John Noel DO Primary Care Provider Active Start: May 25, 2025 End: May 28, 2025 Dr. Zackary Matthews MD Emergency Provider Active Start: May 25, 2025 End: May 28, 2025 Dr. Suraj Garg DO Admit Provider Active Star t: May 25, 2025 End: May 28, 2025 Dr. Suraj Garg DO Other Provider Active Star t: May 25, 2025 End: May 28, 2025 Dr. Natanael Nowak MD Attending Provider Active Start: May 25, 2025 End: May 28, 2025 Team Status: Active Member Role/Relationship Status Dates Dr. John Noel DO Primary Care Provider Active Start: May 26, 2025 Dr. Zackary Matthews MD Emergency Provider Active Start: May 26, 2025 Dr. Suraj Garg DO Admit Provider Active Star t: May 26, 2025 Dr. Suraj Garg DO Other Provider Active Star t: May 26, 2025 Dr. Natanael Nowak MD Attending Provider Active Start: May 26, 2025 Dr. Natanael Nowak MD Other Provider Active Start: May 26, 2025 Team Status: Active Member Role/Relationship Status Dates Dr. John Noel DO Primary Care Provider Active Start: May 27, 2025 Dr. Zackary Matthews MD Emergency Provider Active Start: May 27, 2025 Dr. Suraj Garg DO Admit Provider Active Star t: May 27, 2025 Dr. Suraj Garg DO Other Provider Active Star t: May 27, 2025 Dr. Natanael Nowak MD Attending Provider Active Start: May 27, 2025 Dr. Natanael Nowak MD Other Provider Active Start: May 27, 2025 Team Status: Active Member Role/Relationship Status Dates Dr. John Noel DO Primary Care Provider Active Start: May 28, 2025 Dr. Zackary Matthews MD Emergency Provider Active Start: May 28, 2025 Dr. Suraj Garg DO Admit Provider Active Star t: May 28, 2025 Dr. Suraj Garg DO Other Provider Active Star t: May 28, 2025 Dr. Natanael Nowak MD Attending Provider Active Start: May 28, 2025 Dr. Natanael Nowak MD Other Provider Active Start: May 28, 2025 Team Status: Inactive Member Role/Relationship [...] May 09, 2025 End: May 09, 2025 Team Status: Inactive Member Role/Relationship Status Dates Dr. John Noel DO Primary Care Provider Active Start: May 25, 2025 End: May 28, 2025 Dr. Zackary Matthews MD Emergency Provider Active Start: May 25, 2025 End: May 28, 2025 Dr. Suraj Garg DO Admit Provider Active Star t: May 25, 2025 End: May 28, 2025 Dr. Suraj Garg DO Other Provider Active Star t: May 25, 2025 End: May 28, 2025 Dr. Natanael Nowak MD Attending Provider Active Start: May 25, 2025 End: May 28, 2025 Team Status: Active Member Role/Relationship Status Dates Dr. John Noel DO Primary Care Provider Active Start: May 25, 2025 Dr. Zackary Matthews MD Emergency Provider Active Start: May 25, 2025 Dr. Suraj Garg DO Attending Provider Active Start: May 25, 2025 Team Status: Active Member Role/Relationship Status Dates Dr. John Noel DO Primary Care Provider Active Start: May 26, 2025 Dr. Zackary Matthews MD Emergency Provider Active Start: May 26, 2025 Dr. Suraj Garg DO Admit Provider Active Star t: May 26, 2025 Dr. Suraj Garg DO Other Provider Active Star t: May 26, 2025 Dr. Natanael Nowak MD Attending Provider Active Start: May 26, 2025 Dr. Natanael Nowak MD Other Provider Active Start: May 26, 2025 Team Status: Active Member Role/Relationship Status Dates Dr. John Noel DO Primary Care Provider Active Start: May 27, 2025 Dr. Zackary Matthews MD Emergency Provider Active Start: May 27, 2025 Dr. Suraj Garg DO Admit Provider Active Star t: May 27, 2025 Dr. Suraj Garg DO Other Provider Active Star t: May 27, 2025 Dr. Natanael Nowak MD Attending Provider Active Start: May 27, 2025 Dr. Natanael Nowak MD Other Provider Active Start: May 27, 2025 Team Status: Active Member Role/Relationship Status Dates Dr. John Noel DO Primary Care Provider Active Start: May 28, 2025 Dr. Zackary Matthews MD Emergency Provider Active Start: May 28, 2025 Dr. Suraj Garg DO Admit Provider Active Star t: May 28, 2025 Dr. Suraj Garg DO Other Provider Active Star t: May 28, 2025 Dr. Natanael Nowak MD Attending Provider Active Start: May 28, 2025 Dr. Natanael Nowak MD Other Provider Active Start: May 28, 2025 Team Status: Inactive Member Role/Relationship Status Dates Dr. John Noel DO Primary Care Provider Active Start: June 22, 2025 End: June 22, 2025 Dr. Timoteo Mullins MD Attending Provider Active S tart: June 22, 2025 End: June 22, 2025 (unrecognized sect ion and content) No Status Records FoundNo Status Records FoundNo Status Records FoundNo Status Records Found INFORMATION SOURCE (unrecogn ized section and content) DATE CREATED AUTHOR 07/25/2024 [facility] DATE CREATED AUTHOR AUTHOR'S ORGANIZ ATION 05/27/2025 [facility] DATE CREATED AUTHOR AUTHOR'S ORGANIZ ATION 06/28/2025 [facility] DATE CREATED AUTHOR AUTHOR'S ORGANIZ ATION 07/12/2025 [facility] Scheduled Active and Recently Administ ered Medications (unrecognized section and content) Medication Order 07/23/2024 07/24/2024 07/25/2024 ondansetron (Zofran) injection 4 mg (COMPLETED) 4 mg, intravenous, Once, On e 07/25/24 at 1030, For 1 dose, Preprocedure, When administering via IV Push, administer over 3-5 minutes. 1017 (Given - Provid er: Yady Simental RN) Continuous Medication Order 07/23/2024 07/24/2024 07/25/2024 lactated Ringer's infusion 20 mL/hr, intravenous, Continuous, Starting on e 07/25/24 at 0915, Preprocedure 0921 (New Bag - [...] BE BASED ON THE PRIMARY CLINICAL RECORDS. [facility]. provides no warranty or guarantee of the accuracy or completeness of information in this document.
[2025-07-14 15:55] LABS: Mucous, Urine 0 SEEN /hpf (<or=2+); Squamous Epithelial Cells - UA 0 SEEN /hpf (0-5)
[2025-07-14 16:41] LABS: Color, Urine Straw (Yellow); Glucose, Dipstick Normal (Normal); Ketone-Dipstick Negative (Negative); Leukocyte Esterase-Dipstick 500 /ul (Negative); Nitrite-Dipstick Negative (Negative); Occult Blood-Urine 250 /ul (Negative); Protein-Dipstick 30 mg/dl (Negative); Specific Gravity, Urine 1.005 (1.002-1.030); Urine Bilirubin Dipstick Negative (Negative)
[2025-07-14 17:12] LABS: Red Blood Cells-Urine 10-25 SEEN /hpf (0-5)
[2025-07-14 17:14] LABS: Calcium Oxalate Crystals Ur 1+ /hpf (<or=2+)
[2025-07-14 17:15] LABS: Yeast-Urine 1+ /hpf (None Seen)
== END 2025-07-14 15:49 | disposition home or self-care (01) ==
LOC: ED 15:43
PROVIDERS: Emergency Provider Emergency Medicine; PCP Family Medicine; Visit Provider Emergency Medicine
DX: T83.011A Breakdown (mechanical) of indwelling urethral catheter, initial encounter (principal); I11.0 Hypertensive heart disease with heart failure; I50.22 Chronic systolic (congestive) heart failure; E78.00 Pure hypercholesterolemia, unspecified; I25.10 Atherosclerotic heart disease of native coronary artery without angina pectoris; Y82.9 Unspecified medical devices associated with adverse incidents; Z95.810 Presence of automatic (implantable) cardiac defibrillator; I25.2 Old myocardial infarction; Z90.49 Acquired absence of other specified parts of digestive tract; Z95.5 Presence of coronary angioplasty implant and graft
CPT/HCPCS: 81001; 87077; 87086; 87088; 87186; 99282

== ENCOUNTER 2025-08-13 16:47 | Emergency (ER) | payer MEDICARE, SELFPAY ==
[2018-12-28 14:17] VITALS: BMI 22.3
[2025-08-13 16:47] VITALS: BP 136/51; PULSE 68; RESP 16; TEMP 36.6; O2SAT 100
--- NOTE | 2025-08-13 18:51 | CT_ITS ---
PROCEDURE: BRAIN/HEAD WITHOUT CONTRAST 08/13/2025 REASON FOR EXAM: FALL TECHNIQUE: Procedure Code: CTBR Modality: CT Procedure: BRAIN/HEAD WITHOUT CONTRAST Coronal and Sagittal reconstruction series were provided. One or more dose reduction techniques were used (e.g., Automated exposure control, adjustment of the mA and/or kV according to patient size, use of iterative reconstruction technique. FINDINGS: Moderate global parenchymal atrophy. Severe chronic microvascular ischemia. No evidence of acute hemorrhage or infarction. No extra-axial blood or fluid collections. The paranasal sinuses and mastoid air cells are clear. The calvarial vault and skull base are intact. Soft tissue swelling overlying the right orbit. CT/Brain/Head without Contrast IMPRESSION: No acute intracranial abnormality. Reading Location: [id number]
--- NOTE | 2025-08-13 18:51 | CT_ITS ---
PROCEDURE: SPINE CERVICAL WITHOUT CONTRAS 08/13/2025 REASON FOR EXAM: FALL TECHNIQUE: Procedure Code: CTSPC Modality: CT Procedure: SPINE CERVICAL WITHOUT CONTRAS Coronal and Sagittal reconstruction series were provided. One or more dose reduction techniques were used (e.g., Automated exposure control, adjustment of the mA and/or kV according to patient size, use of iterative reconstruction technique. RADIATION DOSE SUMMARY: CTDlvol: 44.99 mGy DLP: 1155.33 mGycm COMPARISON: None FINDINGS: Alignment: Within normal limits Vertebrae: No acute vertebral body collapse. No subluxation. Soft Tissues: Heterogeneous right thyroid nodule series 6 image 138. Aneurysmal dilatation of ascending aorta. Calcified atherosclerotic changes at carotid bifurcations and bulbs. Other: Degenerative disc height loss and desiccation throughout the cervical spine. C1-2: Within normal limits C2-3: Mild uncovertebral hypertrophy. The spinal canal and neural foramina are patent. C3-4: Uncovertebral hypertrophy, facet arthropathy. Right paracentral disc bulge. Moderate to severe right neural foraminal narrowing. Moderate left neural foraminal narrowing. The bony spinal canal is patent. C4-5: Uncovertebral hypertrophy and facet arthropathy. Moderate neural foraminal narrowing bilaterally. The spinal canal is grossly patent. C5-6: Uncovertebral hypertrophy, facet arthropathy. Moderate neural foraminal narrowing bilaterally. The bony spinal canal is patent. C6-7: Uncovertebral hypertrophy, mild facet arthropathy. No significant spinal canal or neural foraminal stenosis. C7-T1: Uncovertebral hypertrophy, mild facet arthropathy. No significant spinal canal or neural foraminal stenosis. CT/Spine Cervical without Contras IMPRESSION: 1. No acute fracture or subluxation in the cervical spine. 2. Degenerative changes in the cervical spine as described above. 3. Aneurysmal dilatation of ascending aorta, partially visualized. Reading Location: [id number]
--- NOTE | 2025-08-13 18:51 | CT_ITS ---
PROCEDURE: BRAIN/HEAD WITHOUT CONTRAST 08/13/2025 REASON FOR EXAM: FALL TECHNIQUE: Procedure Code: CTBR Modality: CT Procedure: BRAIN/HEAD WITHOUT CONTRAST Coronal and Sagittal reconstruction series were provided. One or more dose reduction techniques were used (e.g., Automated exposure control, adjustment of the mA and/or kV according to patient size, use of iterative reconstruction technique. FINDINGS: Moderate global parenchymal atrophy. Severe chronic microvascular ischemia. No evidence of acute hemorrhage or infarction. No extra-axial blood or fluid collections. The paranasal sinuses and mastoid air cells are clear. The calvarial vault and skull base are intact. Soft tissue swelling overlying the right orbit. CT/Brain/Head without Contrast IMPRESSION: No acute intracranial abnormality. Reading Location: [id number]
--- NOTE | 2025-08-13 19:00 | EX.ED.GENINJ ---
HPI History of Present Illness Chief Complaint: Fall Narrative Narrative: Patient is 89-year-old male with past medical history of chronic indwelling Rod catheter, CHF, CVA, hypertension, ICD, hyperlipidemia who presented to the emergency department chief complaint of fall. Patient states that he was at the grocery store earlier today and notes that the cart started to roll away from him while he was trying to put bird feed in the back of his car he states that he tried to run and catch his send however he hit a pothole causing him to fall and he states that he did hit his head but did not pass out. He states that he is not any blood thinning medications. He also notes that he has a cut to his right hand. He states that he is unsure when his last tetanus shot was. He states that he has no pain and wants to go home. [facility] Medical History History of ESBL E. 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 General weakness Otitis media Elevated troponin Orchitis of right testicle Sepsis Implantable cardioverter-defibrillator (ICD) at end of battery life Essential hypertension Family history of CVA Family history of hypertension FH: sudden cardiac (SCD) History of placement of internal cardiac defibrillator HTN (hypertension) Old myocardial infarction Angina pectoris Cardiomyopathy, ischemic Chronic systolic congestive heart failure HLD (hyperlipidemia) Abnormal result of cardiovascular function study, unspecified High risk medication use Iron deficiency anemia Chest pain, precordial Atherosclerotic heart disease of [place] coronary artery without angina pectoris Dyspnea Fatigue Hypokalemia Benign prostatic hypertrophy SBO (small bowel obstruction) Home Medications ?Medication ?Instructions ?Recorded ?Last Taken ?Type aspirin 81 mg tablet,delayed 81 mg PO DAILY 05/23/24 05/25/25 History release (Adult Low Dose Aspirin) nitroglycerin 0.4 mg sublingual 0.4 mg sublingual Q5M PRN Chest 05/23/24 Unknown Rx tablet Pain #25 tabs tamsulosin 0.4 mg capsule 0.4 mg PO QDAY 05/23/24 05/25/25 History simvastatin 20 mg tablet 20 mg PO QHS for cholesterol #90 08/23/24 05/24/25 Rx TABLETS prednisone 5 mg tablet 2 mg PO QDAY 11/10/24 05/25/25 History sacubitril 24 mg-valsartan 26 mg 1 tab PO BID #60 tabs 03/14/25 05/25/25 Rx tablet (Entresto) diphenhydramine 25 2 tab PO QHS 04/28/25 05/24/25 History mg-acetaminophen 500 mg tablet (Tylenol PM Extra Strength) melatonin 10 mg tablet 20 mg PO QHS sleep 04/28/25 05/24/25 History oxybutynin chloride 5 mg tablet 5 mg PO DAILY 04/28/25 05/25/25 History prednisone 1 mg tablet 2 mg PO DAILY 05/25/25 05/25/25 History fosfomycin tromethamine 3 gram 1 packet PO QODAY 3 doses #3 ea 05/28/25 Unknown Rx oral packet carvedilol 6.25 mg tablet 6.25 mg PO BID #60 tabs 06/08/25 Unknown Rx ciprofloxacin HCl 500 mg tablet 500 mg PO BID 5 days #10 TABLETS 07/14/25 Unknown Rx Allergy/AdvReac Type Severity Reaction Status Date / Time morphine Allergy Intermediate Rash Verified 08/13/25 16:49 zolpidem tartrate (From AdvReac Intermediate CONFUSION Verified 08/13/25 16:49 Ambien) Family History Mother CAD (coronary artery disease) CVA (cerebral vascular accident) Myocardial infarction, Onset Age: 67 Hypertension Brother CAD (coronary artery disease) Hypertension Cancer Lung CA Myocardial infarction, Onset Age: 73 Father Myocardial infarction, Onset Age: 77 Daughter Cancer Son Myocardial infarction, Onset Age: 46 Other Cardiomyopathy, ischemic Chronic systolic congestive heart failure Fatigue General weakness Iron deficiency anemia Surgical History History of appendectomy History of cholecystectomy H/O dilation of urethra Hx of transurethral resection of prostate Presence of coronary artery bypass graft stent (~12/28/18) History of cardiac catheterization Hx of colonoscopy Hx of surgical procedure History of hernia repair History of prostate surgery History of left heart catheterization Social History household members: spouse Smoking Status: Never smoker alcohol intake: never substance use type: does not use caffeine: Yes Type: carbonated beverages and coffee Number of servings: 1 what type of physical activity do you participate in: none seatbelt use: always do you feel safe at home: Yes ROS ROS ED ROS Narrative Constitutional: Denies headache, lightness, dizziness Eyes: Denies any blurry vision double vision Cardiovascular: Denies chest pain Respiratory: Denies shortness of breath Abdomen: Denies abdominal pain : States he has chronic Rod catheter Neurological: Denies any numbness, weakness, tingling Skin: Complains of cut to above his right eye and his right hand. EXAM Physical Exam Narrative Exam Narrative: General: Patient is lying in bed rest comfortably did not appear to be in acute distress Head: Normocephalic, patient has small abrasion above his right eye with blood clot noted in this no active bleeding. Patient has ecchymosis around his right eye no raccoon eyes no [place] sign Eyes: PERRL bilaterally, EOMI Black, no conjunctival injection noted Neck: Soft, supple, trachea midline Cardiovascular: Regular rate Abdomen: Soft, nondistended, no tenderness palpation Musculoskeletal: All bony prominences palpated joints taken to full range of motion no pain elicited Extremities: +4/5 strength noted in the bilateral upper and lower extremities radial pulses +2/4 in the bilateral extremities Neurological: Patient following commands that he was at [facility] years 2024 Skin: Patient also has a skin abrasion noted to his right knee and right anterior arias no active bleeding noted. He has a abrasion over the right fourth knuckle this is a skin tear no laceration to repair no active bleeding Const Vital Signs: 08/13/25 16:47 08/13/25 18:57 08/13/25 19:01 Temperature 98 F Temperature Source Oral Pulse Rate 68 70 Respiratory Rate 16 14 Respiratory Effort Normal Respiratory Depth Normal Respiratory Pattern Normal Blood Pressure 136/51 H 135/101 H Blood Pressure Mean 79 112 Pulse Ox 100 98 Oxygen Delivery Method Room Air Room Air MDM MDM MDM Narrative Medical decision making narrative: Patient is a 89-year-old male who presents to the emergency department after falling after tripping from a pothole. On the differential diagnose includes but not limited to skin abrasions, intracranial hemorrhage, cervical spine fracture. Once the workup is obtained and reviewed he will be reevaluated. Tetanus shot will be updated. Patient's CT head brain without contrast was reviewed showed no acute intracranial normalities. Patient CT cervical spine reviewed showed no acute fracture or subluxation is degenerative changes noted as aneurysmal dilation of the ascending aorta that is partially visualized. Patient had a laceration above his right eye just below his eyebrow repaired in the emergency department see procedure note for separate details. He is advised to have these removed in approximately 3 to 5 days by his primary care physician. He is vies watch out for signs of infection. He is encouraged return with worsening symptoms or concerns. He would like to go home at this point time. All question concerns answered he is discharged home in stable condition. Patient given hardcopy of the CT results for his on record for the aneurysm that was an incidental finding. Procedure note Procedure name: Laceration repair Indication: Reduce risk of infection Location: Just below his right eyebrow there was a 1-1/2 cm linear laceration Preprocedure diagnosis: Laceration Postprocedure diagnosis: Repaired laceration Informed consent was obtained prior to procedure started. Procedure: The appropriate timeout was taken. The area was prepped and draped in usual sterile fashion. Local anesthesia was achieved using 1-1/2 cc of lidocaine 1% without epinephrine. Wound was copiously irrigated. 3 4-0 Ethilon interrupted sutures were placed. Estimated blood loss was less than 0.5 mL. Dressing was applied to the area and anticipatory guidance, as well as standard postprocedure care was explained. Return precautions are given. Patient tolerated procedure well without any complications. Follow-up visit for suture removal and evaluation of laceration. Radiography Diagnostic Testing: Clinical Impression(s) from Imaging Studies Brain CT 08/13/25 18:51 IMPRESSION: No acute intracranial abnormality. Reading Location: [id number] Cervical Spine CT 08/13/25 18:51 IMPRESSION: 1. No acute fracture or subluxation in the cervical spine. 2. Degenerative changes in the cervical spine as described above. 3. Aneurysmal dilatation of ascending aorta, partially visualized. Reading Location: [facility] Discharge Plan Triage Chief Complaint: Fall ED Provider: Howard Ruby Dx/Rx/DC Orders Clinical Impression: Closed head injury without loss of consciousness, Forehead laceration, Ecchymosis of right eye, Aneurysm of ascending aorta Prescriptions: No Action tamsulosin 0.4 mg capsule 0.4 mg PO QDAY aspirin [Adult Low Dose Aspirin] 81 mg tablet,delayed release (DR/EC) 81 mg PO DAILY nitroglycerin 0.4 mg tablet, sublingual 0.4 mg SUBLINGUAL Q5M PRN (Reason: Chest Pain) Qty: 25 3RF prednisone 5 mg tablet 2 mg PO QDAY oxybutynin chloride 5 mg tablet 5 mg PO DAILY melatonin 10 mg tablet 20 mg PO QHS diphenhydramine-acetaminophen [Tylenol PM Extra Strength] 25-500 mg tablet 2 tab PO QHS prednisone 1 mg tablet 2 mg PO DAILY fosfomycin tromethamine 3 gram packet 1 packet PO QODAY Qty: 3 0RF ciprofloxacin HCl 500 mg tablet 500 mg PO BID 5 Days Qty: 10 0RF simvastatin 20 mg tablet 20 mg PO QHS Qty: 90 3RF Entresto 24-26 mg tablet 1 tab PO BID Qty: 60 11RF carvedilol 6.25 mg tablet 6.25 mg PO BID Qty: 60 6RF Rx Instructions: must administer with a meal/food Primary Care Provider: Terry Mckeon Referrals: Terry Mckeon DO [Primary Care Provider, Family Practice] Activity Restrictions/Additional Instructions: Have your primary care physician remove your sutures in approximately 5 days. Return with worsening symptoms or any concerns. You were given a copy of the CT scan of your neck as it was found that you have a aneurysm of your ascending aorta and you need to show your physician this therefore they can follow-up on this as this was an incidental finding here in the emergency department. Print Language: Mongolian Disposition Disposition: Home, Self Care
[2025-08-13 19:01] VITALS: BP 135/101; PULSE 70; RESP 14; O2SAT 98
[2025-08-13] MEDS: Lidocaine 1% (20 ml mdv) 20 ML Vial 10 ML INFILT (20:44)
[2025-08-13 21:00] VITALS: BP 95/57; PULSE 67; RESP 14; O2SAT 96
[2025-08-13 21:19] VITALS: BP 97/57; PULSE 65; RESP 16; TEMP 36.6; O2SAT 98
--- NOTE | 2025-08-13 21:26 | ED.RN ---
This RN attempted to call [facility] to give report x2. Call rang without answer from the facility x2
--- NOTE | 2025-08-13 21:26 | ED.RN ---
This RN attempted to call [facility] to give report x2. Call rang without answer from the facility x2
== END 2025-08-13 21:20 | disposition home or self-care (01) ==
PROVIDERS: Emergency Provider Emergency Medicine; PCP Family Medicine; Visit Provider Emergency Medicine
DX: S01.81XA Laceration without foreign body of other part of head, initial encounter (principal); I11.0 Hypertensive heart disease with heart failure; I50.22 Chronic systolic (congestive) heart failure; I42.9 Cardiomyopathy, unspecified; S05.11XA Contusion of eyeball and orbital tissues, right eye, initial encounter; I71.21 Aneurysm of the ascending aorta, without rupture; S61.411A Laceration without foreign body of right hand, initial encounter; I25.10 Atherosclerotic heart disease of native coronary artery without angina pectoris; Z23 Encounter for immunization; Z95.5 Presence of coronary angioplasty implant and graft; Z90.49 Acquired absence of other specified parts of digestive tract; Z95.810 Presence of automatic (implantable) cardiac defibrillator; I25.2 Old myocardial infarction; Z86.73 Personal history of transient ischemic attack (TIA), and cerebral infarction without residual deficits; E78.5 Hyperlipidemia, unspecified; W01.198A Fall on same level from slipping, tripping and stumbling with subsequent striking against other object, initial encounter; Y93.89 Activity, other specified; Y92.481 Parking lot as the place of occurrence of the external cause
CPT/HCPCS: 12011; 70450; 72125; 90471; 90715; 99283

== ENCOUNTER → 2025-10-11 | Outpatient (CLI) | payer MEDICARE, SELFPAY ==
[2018-12-28 14:17] VITALS: BMI 22.3
[2025-10-11 16:08] LABS: CRP 6.18 mg/L (0.0-3.0)
== END | disposition home or self-care (01) ==
LOC: BFHLAB 13:55
PROVIDERS: PCP Family Medicine; Visit Provider Family Medicine
DX: M35.3 Polymyalgia rheumatica (principal)
CPT/HCPCS: 36415; 86140

== ENCOUNTER → 2025-10-17 | Outpatient (CLI) | payer MEDICARE, SELFPAY ==
[2018-12-28 14:17] VITALS: BMI 22.3
[2025-10-17 17:27] LABS: Anion Gap 11 (5-15); BUN 16 mg/dL (4-19); BUN/Creat Ratio 19.9 RATIO (10-20); Calcium,Total 8.8 mg/dL (7.6-11.0); Carbon Dioxide 24.9 mmol/L (21.0-32.0); Chloride 104 mmol/L (98-108); Glucose 102 mg/dL (70-99); Potassium 4.1 mmol/L (3.3-5.1)
== END | disposition home or self-care (01) ==
LOC: LAB 15:43
PROVIDERS: PCP Family Medicine; Referring Provider Internal Medicine; Visit Provider Internal Medicine
DX: I25.5 Ischemic cardiomyopathy (principal); I27.20 Pulmonary hypertension, unspecified; R00.2 Palpitations; I35.0 Nonrheumatic aortic (valve) stenosis; I25.10 Atherosclerotic heart disease of native coronary artery without angina pectoris
CPT/HCPCS: 36415; 80048